=== PATIENT | female | born 1960 | race Caucasian/White ===

== ENCOUNTER 2020-06-17 06:43 | Inpatient (IN) | payer OTHER ==
[~2020-06-17] VITALS: Ht 172.7 cm; Wt 85.3 kg
[2020-06-17] MEDS ORDERED: AMIODARONE 450 MG in IV DEXTROSE 5% 250 ML IV ONE (07:00)
[2020-06-17] MEDS ORDERED: AMIODARONE 150 MG in IV DEXTROSE 5% 100ML 100 ML IV ONE (07:00)
--- NOTE | 2020-06-17 07:00 | PHYS DOC ---
Past Medical History Past Medical History: Hypothyroid General Adult EDM: Chief Complaint: CPR/FULL ARREST HPI: HPI: Patient is a 59 year old female who was brought here by EMS from home due to cardiac arrest. It was reported that at 5:58 AM this morning, patient WOKE UP FROM her sleep, told her that she was feeling dizzy, then she was then suddenly became unresponsive. Her could not wake her up, , started to perform CPR on her. EMS was called, came on scene, patient was unresponsive, agonal breathing. CPR was taken over by EMS. Patient was found no pulse, in VT. Patient was shocked by EMS, went into asystole. Patient was intubated by EMS. Patient was brought here emergently. ON route, they got her pulse back then lost it again. CPR was resumed. Upon arrival to room, patient was in PEA, CPR in progress. ROSC was achieved briefly. Patient was not sedated, not responsi ve to pain or verbal....PER , patient has been doing fine last night. NO HISTORY OF CVA, NO HX OF DM, NO HX OF BLOOD CLOT DISORDER. Patient is only on medication for her thyroid problem. Patient is not on any blood thinner. Her blood sugar upon arrival was 300. Her family and her all had COVID-19 SYMPTOMS IN THE MIDDLE OF MARCH LAST YEAR. SHE NEVER DID TEST FOR IT. Her worked with a close friend who was sick with confirmed COVID-19 infection. Within two days later, patient and her became sick with cough, fever and flu like symptoms. They were sick for more than a week and then got better. Her children all had COVID SYMPTOMS THEN. They never did test for COVID. Review of Systems: Review of Systems: NOT ABLE TO EVALUATE DUE TO COMATOSE Heart Score: Risk Factors: Risk Factors: DM, Current or recent (<one month) smoker, HTN, HLP, family history of CAD, obesity. Risk Scores: Score 0 - 3: 2.5% MACE over next 6 weeks - Discharge Home Score 4 - 6: 20.3% MACE over next 6 weeks - Admit for Clinical Observation Score 7 - 10: 72.7% MACE over next 6 weeks - Early Invasive Strategies Current Medications: Current Medications Medications (Trade) Dose Ordered Sig/Rosalio Start Time Stop Time Status Last Admin Dose Admin Amiodarone HCl 150 mg/Dextrose 103 ml @ 618 mls/hr 1X ONCE 06/17/20 07:00 06/17/20 07:09 Allergies: Allergies: Allergies Coded Allergies Type Severity Reaction Last Updated Verified Unable to Assess 06/17/20 No Physical Exam: PE: Constitutional: Well developed, well nourished, UNRESPONSIVE TO PAIN OR VERBAL STIMULI. HENT: Normocephalic, atraumatic, bilateral external ears normal, ET TUBE IN PLACE. Eyes: PERRLA, conjunctiva normal, no discharge. [] Neck: Normal range of motion, NO JVD, NO CREPITUS. Cardiovascular: SINUS RHYTHM, STRONG PULSES. Lungs & Thorax: BREATH SOUND CLEAR ON RIGHT LUNG, NOT MUCH MOVEMENT ON LEFT LUNG. Abdomen: Bowel sounds normal, soft, NO DISTENSION, no masses, no pulsatile masses. [] Skin: Warm, dry, no erythema, no rash. [] Back: ATRAUMATIC. [] Extremities: NO CYANOSIS, NO EDEMA, NO DEFORMITY. Neurologic: UNRESPONSIVE TO PAIN OR VERBAL STIMULI, SHE WAS APPEARING POSTURING, DECORTICATING. Psychologic: NOT ABLE TO EVALUATE DUE TO CONDITION. Current Patient Data: Labs: Laboratory Tests Test 06/17/20 06:58 06/17/20 07:28 06/17/20 08:20 06/17/20 08:32 Glucose (Fingerstick) 322 mg/dL White Blood Count 18.5 x10^3/uL Red Blood Count 4.26 x10^6/uL Hemoglobin 13.0 g/dL Hematocrit 40.1 % Mean Corpuscular Volume 94 fL Mean Corpuscular Hemoglobin 31 pg Mean Corpuscular Hemoglobin Concent 32 g/dL Red Cell Distribution Width 13.6 % Platelet Count 286 x10^3/uL Neutrophils (%) (Auto) 73 % Lymphocytes (%) (Auto) 23 % Monocytes (%) (Auto) 2 % Eosinophils (%) (Auto) 1 % Basophils (%) (Auto) 0 % Neutrophils # (Auto) 13.6 x10^3/uL Lymphocytes # (Auto) 4.3 x10^3/uL Monocytes # (Auto) 0.4 x10^3/uL Eosinophils # (Auto) 0.2 x10^3/uL Basophils # (Auto) 0.1 x10^3/uL Platelet Estimate Pending Prothrombin Time 15.4 SEC Prothromb Time International Ratio 1.3 Activated Partial Thromboplast Time 32 SEC D-Dimer (Yaneth) > 20.00 ug/mlFEU Sodium Level 140 mmol/L Potassium Level 3.4 mmol/L Chloride Level 103 mmol/L Carbon Dioxide Level 17 mmol/L Anion Gap 20 Blood Urea Nitrogen 18 mg/dL Creatinine 1.1 mg/dL Estimated GFR (Cockcroft-Gault) 51.2 BUN/Creatinine Ratio 16 Glucose Level 318 mg/dL Lactic Acid Level 8.6 mmol/L Calcium Level 8.2 mg/dL Magnesium Level 2.4 mg/dL Total Bilirubin 0.3 mg/dL Aspartate Amino Transf (AST/SGOT) 206 U/L Alanine Aminotransferase (ALT/SGPT) 161 U/L Alkaline Phosphatase 73 U/L Troponin I Quantitative 0.020 ng/mL UY-Ynd-O-Type Natriuretic Peptide 555 pg/mL Total Protein 6.6 g/dL Albumin 3.3 g/dL Albumin/Globulin Ratio 1.0 O2 Saturation 98 % Arterial Blood pH 7.20 Arterial Blood pCO2 at Patient Temp 51 mmHg Arterial Blood pO2 at Patient Temp 173 mmHg Arterial Blood HCO3 20 mmol/L Arterial Blood Base Excess -9 mmol/L Oxyhemoglobin 97.6 % Methemoglobin 0.2 % Carbon Monoxide, Quantitative 0.3 % FiO2 100 Urine Collection Type Unknown Urine Color Yellow Urine Clarity Clear Urine pH 6.0 Urine Specific Vina >=1.030 Urine Protein >=300 mg/dL Urine Glucose (UA) 250 mg/dL Urine Ketones (Stick) Negative mg/dL Urine Blood Small Urine Nitrite Negative Urine Bilirubin Negative Urine Urobilinogen Dipstick 0.2 mg/dL Urine Leukocyte Esterase Negative Urine RBC 3-5 /HPF Urine WBC 1-4 /HPF Urine Squamous Epithelial Cells Few /LPF Urine Amorphous Sediment Present /HPF Urine Bacteria Few /HPF Urine Hyaline Casts Occasional /HPF Urine Opiates Screen Neg Urine Methadone Screen Neg Urine Barbiturates Neg Urine Phencyclidine Screen Neg Urine Amphetamine/Methamphetamine Neg Urine Benzodiazepines Screen Pos Urine Cocaine Screen Neg Urine Cannabinoids Screen Pos Urine Ethyl Alcohol Neg Test 06/17/20 10:00 Troponin I Quantitative 0.192 ng/mL Current Medications Medications (Trade) Dose Ordered Sig/Rosalio Route PRN Reason Start Time Stop Time Status Last Admin Dose Admin Amiodarone HCl 150 mg/Dextrose 103 ml @ 618 mls/hr 1X ONCE IV 06/17/20 07:00 1/3/21 07:09 DC 06/17/20 07:00 Amiodarone HCl 450 mg/Dextrose 259 ml @ 33 mls/hr 1X ONCE IV 06/17/20 07:00 06/17/20 14:50 Sodium Chloride 1,000 ml @ 1,000 mls/hr 1X ONCE IV 06/17/20 07:15 06/17/20 08:14 DC 06/17/20 08:11 Midazolam HCl 100 ml @ 0 mls/hr 1X ONCE IV 06/17/20 07:15 06/17/20 07:16 DC Midazolam HCl (Versed) 5 mg STK-MED ONCE .ROUTE 06/17/20 07:17 06/17/20 07:17 DC Iohexol (Omnipaque 300 Mg/ml) 75 ml 1X ONCE IV 06/17/20 08:15 06/17/20 08:16 DC 06/17/20 08:17 Iohexol (Omnipaque 350 Mg/ml) 100 ml 1X ONCE IV 06/17/20 08:15 06/17/20 08:16 DC 06/17/20 08:17 Info (CONTRAST GIVEN -- Rx MONITORING) 1 each PRN DAILY PRN MC SEE COMMENTS 06/17/20 08:15 06/19/20 08:14 Sodium Chloride 1,000 ml @ 1,000 mls/hr 1X ONCE IV 06/17/20 08:15 06/17/20 09:14 DC 06/17/20 08:25 Piperacillin Sod/ Tazobactam Sod (Zosyn Per Pharmacy) 1 each PRN DAILY PRN MC SEE COMMENTS 06/17/20 08:45 UNV Piperacillin Sod/ Tazobactam Sod 4.5 gm/Sodium Chloride 100 ml @ 200 mls/hr 1X ONCE IV 06/17/20 08:45 06/17/20 09:14 DC 06/17/20 10:15 EKG: EKG: EKG was done, HEART RATE OF 90 BPM, SINUS RHYTHM, NO STEMI. Radiology/Procedures: Radiology/Procedures: [][facility] [address] [place] [address] IMAGING REPORT Signed PATIENT: BASILIO WHYTE ACCOUNT: [id number] : 1960 LOCATION: ER AGE: 59 SEX: F EXAM STATUS: REG ER ORD. PHYSICIAN: MEGAN MUÑIZ DO REASON: post cardiac arrest, UNRESPONSIVENESS. PROCEDURE: CT CODE STROKE HEAD WO EXAM: Head CT without contrast. HISTORY: Cardiac arrest. Unresponsive. TECHNIQUE: Computed tomographic images of the head were obtained without contrast. *One or more of the following individualized dose reduction techniques were utilized for this examination: 1. Automated exposure control. 2. Adjustment of the mA and/or kV according to patient size. 3. Use of iterative reconstruction technique. COMPARISON: None. FINDINGS: There is no acute or subacute extra-axial or intraparenchymal hemorrhage. There is no mass effect or midline shift. There is no hydrocephalus. There is a left choroid fissure cyst, of no clinical significance. There are subtle areas of hypodensity within the cerebral white matter which are likely artifactual or due to chronic small vessel disease. The visualized portions of the orbits, paranasal sinuses and mastoid air cells are unremarkable. No suspicious calvarial lesion is seen. IMPRESSION: No acute intracranial finding. Note is made that MRI is more sensitive for acute infarction. Findings were discussed with Dr. Muñiz at 0800 hours on 06/17/2020. FOR INTERNAL CODING PURPOSES RESULT CODE: (C) Electronically signed by: Opal Painter MD (06/17/2020 8:09 AM) [facility] DICTATED and SIGNED BY: OPAL PAINTER MD DATE: 06/17/20 [id number] 0 [facility] [address] [place] [address] IMAGING REPORT Signed PATIENT: BASILIO WHYTE ACCOUNT: [id number] : 1960 LOCATION: ER AGE: 59 SEX: F EXAM STATUS: REG ER ORD. PHYSICIAN: MEGAN MUÑIZ DO REASON: POST CARDIAC ARREST, UNRESPONSIVE. PROCEDURE: CTA HEAD/NECK - CODE STROKE EXAM: CT angiogram of the head and neck with intravenous contrast. HISTORY: Cardiac arrest. TECHNIQUE: Computed tomographic images of the head and neck were obtained following the administration of contrast. Three-dimensional maximum intensity projection images were obtained. *One or more of the following individualized dose reduction techniques were utilized for this examination: 1. Automated exposure control. 2. Adjustment of the mA and/or kV according to patient size. 3. Use of iterative reconstruction technique. COMPARISON: Noncontrast head CT obtained on the same date. FINDINGS: The aortic arch is normal in caliber. There is no evidence of aortic dissection. There is partial consolidation of the left upper lobe with associated air bronchograms. There is groundglass infiltrate throughout the left upper lobe. There is bilateral posterior dependent atelectasis. There is a small right pneumothorax. There is a displaced lateral right fourth rib fracture and angulated right third rib fracture. There are prominent mediastinal lymph nodes. The pulmonary arteries are characterized on a CT angiogram of the chest obtained on the same date. There is an endotracheal tube within the distal trachea. There is a nasogastric tube partially included on the [id number]. The carotid bifurcations are widely patent. The internal carotid arteries are widely patent. The vertebral arteries are widely patent and codominant. The basilar artery is widely patent. The anterior communicating artery is patent. There are suspected hypoplastic or development of absent posterior communicating arteries, a normal variant. No cerebral arterial filling defect or hemodynamically significant stenosis is seen. There is no suspicious enhancing lesion. There is no mass effect or midline shift. There is no hydrocephalus. There are small incidental arachnoid granulations within the transverse sinuses. No sinus thrombosis is seen. The orbits are unremarkable. The paranasal sinuses mastoid air cells are clear. There are multilevel degenerative changes throughout the cervical spine. This results in [id number] right and severe left foraminal and mild central canal stenosis at C5-C6 and mild bilateral foraminal and central canal stenosis at C6-C7. IMPRESSION: 1. No acute intracranial finding or evidence of hemodynamically significant stenosis or occlusion involving the neck or a renal arteries. 2. Small right pneumothorax and right third and fourth rib fractures. This is better characterized on the chest CT obtained on the same date. 3. Partial left upper lobe consolidation with surrounding groundglass infiltrate and bilateral posterior dependent atelectasis. Findings discussed with Dr. Muñiz in the ED at 0820 hours on 06/17/2020. FOR INTERNAL CODING PURPOSES RESULT CODE: (C) PQRS Compliance Statement - Stenosis calculations for CT, MR and conventional angiography are based upon measurement of the distal ICA diameter in accordance with the NASCET methodology. Stenosis calculations for carotid ultrasound studies are derived from validated velocity criteria which are known to correlate with the NASCET methodology. Electronically signed by: Opal Painter MD (06/17/2020 8:25 AM) [facility] DICTATED and SIGNED BY: OPAL PAINTER MD DATE: 06/17/20 [id number] 0 [facility] [address] [place] [address] IMAGING REPORT Signed PATIENT: BASILIO WHYTE ACCOUNT: [id number] : 1960 LOCATION: ER AGE: 59 SEX: F EXAM STATUS: REG ER ORD. PHYSICIAN: MEGAN MUÑIZ DO REASON: POST CARDIAC ARREST, UNRESPONSIVE. PROCEDURE: CT ANGIOGRAPHY CHEST CTA CHEST INDICATION: POST CARDIAC ARREST, UNRESPONSIVE. Comparison: None. TECHNIQUE: Following the uneventful administration of intravenous contrast, 100 cc Omnipaque 350, axial CT sections were obtained through the lungs and upper abdomen. Multiplanar reconstructions and MIP images were obtained. PQRS compliance statement: One or more of the following individualized dose reduction techniques were utilized for this examination: 1. Automated exposure control 2. Adjustment of the mA and/or kV according to patient size 3. Use of iterative reconstruction technique FINDINGS: Motion artifact degrades image quality. Pulmonary arteries: No evidence of pulmonary thromboembolic disease Lungs and Airways: Left lung ground glass opacities and dependent consolidation. Right basilar dependent and subsegmental atelectasis. Pleura: Small right pneumothorax. Heart and Mediastinum: The visualized thyroid is normal in size and attenuation. No axillary or supraclavicular lymphadenopathy. No mediastinal, hilar or retrocrural lymphadenopathy. The heart and pericardium are within normal limits. Normal caliber thoracic aorta. Abdomen: Limited images through the upper abdomen show no abnormality of the visualized organs. Bones and Soft Tissues: Right anterolateral fourth-sixth rib fractures, displaced at 5. Nondisplaced sternal body fracture. IMPRESSION: 1. No evidence of pulmonary thromboembolic disease. 2. Small right pneumothorax with right fourth-sixth rib fractures. Nondisplaced sternal body fracture. No mediastinal hematoma. 3. Left lung hazy opacities and dependent consolidations, probably contusion, infection, or aspiration. Electronically signed by: Oxana Denis MD (06/17/2020 8:23 AM) [id number] DICTATED and SIGNED BY: OXANA DENIS MD DATE: 06/17/20 [id number] 0 [facility] [address] [place] [address] IMAGING REPORT Signed PATIENT: BASILIO WHYTE ACCOUNT: [id number] : 1960 LOCATION: ER AGE: 59 SEX: F EXAM STATUS: REG ER ORD. PHYSICIAN: MEGAN MUÑIZ DO REASON: CHEST TUBE , CENTRAL LINE PLACEMENT PROCEDURE: PORTABLE CHEST 1V EXAM: Chest, single view. HISTORY: Pneumothorax. COMPARISON: 06/17/2020 FINDINGS: A frontal view of the chest is obtained. There is a right basilar thoracostomy tube. The thorax. There is a nasogastric tube within the stomach. There is an endotracheal tube within the mid to distal trachea. There are displaced right rib fractures, better characterized on the CT obtained on the same date. There is left perihilar infiltrate or atelectasis. IMPRESSION: 1. Right basilar pleural drainage catheter and tiny pneumothorax. 2. Left perihilar atelectasis or infiltrate. DICTATED and SIGNED BY: OPAL PAINTER MD DATE: 06/17/20 [id number] CHEST TUBE PLACEMENT: Indication: RIGHT SIDE TRAUMATIC PNEUMOTHORAX DUE TO RIBS FRACTURE Consent: The patient 'S provided consent for this procedure. Procedure: The patient was placed in an appropriate position. Local anesthesia over the insertion site at the mid-axillary line, right side 4th intercostal space was anesthesized with 10 ml of lidocaine plain. An incision was made with number 11 scapel, 1 cm. . Blunt dissection up and over the rib was performed until access was obtained into the pleural cavity. A 9 Luxembourgish chest tube was placed and connected to PLEURIVAC. Initial output from the tube was small mount of ruthie blood. The tube was sutured in place and the site was covered with an occlusive dressing. All connections were banded. Breath sounds after the procedure were good. A chest x-ray was obtained to evaluate placement, appropriate position. The patient tolerated the procedure. Complication: none CENTRAL VENOUS LINE PLACEMENT: Indication: Vascular access Consent: The patient's provided consent for this procedure. Procedure: The patient was positioned appropriately and the skin over the right side chest was prepped and draped in a sterile fashion. Local anesthesia was used. Ultrasound guidance was not utilized . A large bore needle was used to identify the vein. A guide wire was then inserted into the vein through the needle. A triple lumen catheter was then inserted into the vessel over the guide wire using the Seldinger technique. All ports showed good, free flowing blood return and were flushed with saline solution. The catheter was then securely fastened to the skin with sutures and covered with a sterile dressing. A post procedure X-ray was ordered. Complications: when the guide wire was advanced, patient went into a brief VT WITH PULSE. RESOLVED WHEN THE GUIDE WIRE REMOVED. Course & Med Decision Making: Course & Med Decision Making Pertinent Labs and Imaging studies reviewed. (See chart for details) Patient appeared to bite the ET tube, she was posturing... Discussed with NEUROLOGIST SECURITY COORDINATOR, DR. FLORES, he did not think that patient had CVA event. Discussed with Rug Touch Up Painter professional skater, Dr. Ruiz, agreed with AMIODARONE, WILL SEE PATIENT. Discussed with Hot Mill Operator professional skater, Dr. Aguiar, recommended CHEST TUBE PLACEMENT NOW. Discussed with hospitalist professional skater, Dr. Hurley, who agreed to admit the patient to his service. Discussed patient condition, lab, diagnostic studies with her , sons, daughter. Patient is a 59-year-old female who woke up this morning with dizziness symptom then became unresponsive. Her proceeded with CPR, he said he broke her rib and sternum when he did CPR. EMS was called, when they arrived, she was unresponsive in V. fib, no pulse. They shocked her and she went into asystole. Patient was intubated by EMS, ROSC was achieved but they lost it on route here. Patient was resuscitated in the ER by ACLS protocol. ROSC was achieved again. Patient appeared to be posturing. This physician suspected that patient might have suffered a intracranial hemorrhage or stroke therefore a code stroke was activated. Patient was taken to CT scan for stat CT head, did not show any acute problem. Due to her history of COVID-19 infection, it is most likely she might have endocarditis or pulmonary embolus. CTA of her head and neck did not show any large vessel occlusion. CTA of her chest did not show evidence of PE but did show that she had multiple ribs fracture with a small pneumothorax on the right side and nondisplaced sternum fracture. Patient also had bilateral groundglass appearing infiltration at the bases of her lungs. This appearance might be the sequela of her COVID-19 infection. Patient requires IV fluid, IV sedation medication IV antibiotic, IV antiarrhythmic medication therefore she will need a central venous catheter placement. Patient also had a pneumothorax in the right side and she is on a ventilator machine, increase risk of expanding pneumothorax later, therefore a small chest tube was placed on right side, central venous cather was placed on the right side by this physician in the ER. Patient will be admitted to the intensive care unit for further evaluation and treatment. Critical care time was [60] minutes which includes time at bedside, spent in discussion of patient's care with specialist and/or family members, with interpretation of laboratory and/or radiological studies and is exclusive of procedures. Dragon Disclaimer: Dragon Disclaimer: This electronic medical record was generated, in whole or in part, using a voice recognition dictation system. Departure Departure Impression: Primary Impression: Cardiac arrest Additional Impressions: VF (ventricular fibrillation) Pneumothorax, right Fracture of ribs, multiple Sternal fracture Pneumonia Hyperglycemia Disposition: 09 ADMITTED INPT THIS HOSP Admitting Physician: CE (Dr. Hurley) Condition: IMPROVED Referrals: KIRA BARRAGAN APRN (PCP) MEGAN MUÑIZ DO Jun 17, 2020 07:00
[2020-06-17] MEDS ORDERED: MIDAZOLAM 100mg/100ml NS BAG 100 ML IV ONE (07:15)
[2020-06-17] MEDS ORDERED: IV NORMAL SALINE 1000ML BAG 1,000 ML IV ONE ×3 (07:15→10:15)
[2020-06-17] MEDS ORDERED: MIDAZOLAM HCL/PF 5 MG/5 ML VIAL. ONE (07:17)
--- NOTE | 2020-06-17 07:33 | RAD ---
XR CHEST 1V, XR CHEST 1V INDICATION: ET TUBE PLACEMENT, 2nd attempt . COMPARISON STUDY: None. TECHNIQUE: 2 consecutive chest radiographs were submitted, the second after repositioning of the concetta ent's endotracheal tube FINDINGS: Life Support Devices: The first radiograph demonstrates the endotracheal tube in the right mainstem b ronchus, repositioned in the second radiograph 4.2 cm above the guillermo. Enteric tube in the stomach. Lungs: Normal lung volume. Left lung hazy opacities. Pleura: No pleural effusion or pneumothorax. Heart and Mediastinum: Normal cardiomediastinal silhouette and great vessels. IMPRESSION: 1. Endotracheal tube terminates 4.2 cm above the guillermo after repositioning. Enteric tube in the stom ach. 2. Left lung hazy opacities, possibly an infectious/inflammatory process. Electronically signed by: Stephan Denis MD (06/17/2020 7:30 AM) [id number]
[2020-06-17 07:58] LABS: BASO # 0.1 x10^3/uL (0.0-0.2); BASO % 0 % (0-3); EOS # 0.2 x10^3/uL (0.0-0.7); EOS % 1 % (0-3); HEMATOCRIT 40.1 % (36.0-47.0); LYMPH # 4.3 x10^3/uL (1.0-4.8); LYMPH % 23 % (24-48); MEAN CORPUSCULAR HEMOGLOBIN 31 pg (25-35); MEAN CORPUSCULAR HGB CONC 32 g/dL (31-37); MEAN CORPUSCULAR VOLUME 94 fL (79-100); MONO # 0.4 x10^3/uL (0.0-1.1); MONO % 2 % (0-9); NEUT # 13.6 x10^3/uL (1.8-7.7); NEUT % 73 % (31-73); PLATELET COUNT 286 x10^3/uL (140-400); RED BLOOD COUNT 4.26 x10^6/uL (3.50-5.40); RED CELL DISTRIBUTION WIDTH 13.6 % (11.5-14.5); WHITE BLOOD COUNT 18.5 x10^3/uL (4.0-11.0)
[2020-06-17 08:07] LABS: PROTHROMBIN TIME PATIENT 15.4 SEC (11.7-14.0)
[2020-06-17 08:09] LABS: CALCIUM 8.2 mg/dL (8.5-10.1); CREATININE 1.1 mg/dL (0.6-1.0); GFR 51.2; POTASSIUM 3.4 mmol/L (3.5-5.1)
--- NOTE | 2020-06-17 08:11 | RAD ---
EXAM: Head CT without contrast. HISTORY: Cardiac arrest. Unresponsive. TECHNIQUE: Computed tomographic images of the head were obtained without contrast. *One or more of the following individualized dose reduction techniques were utilized for this examina tion: 1. Automated exposure control. 2. Adjustment of the mA and/or kV according to patient size. 3. Use of iterative reconstruction technique. COMPARISON: None. FINDINGS: There is no acute or subacute extra-axial or intraparenchymal hemorrhage. There is no mass effect or midline shift. There is no hydrocephalus. There is a left choroid fissure cyst, of no clinical significance. There are subtle areas of hypodens ity within the cerebral white matter which are likely artifactual or due to chronic small vessel dise ase. The visualized portions of the orbits, paranasal sinuses and mastoid air cells are unremarkable. No s uspicious calvarial lesion is seen. IMPRESSION: No acute intracranial finding. Note is made that MRI is more sensitive for acute infarcti on. Findings were discussed with Dr. Judd at 0800 hours on 06/17/2020. FOR INTERNAL CODING PURPOSES RESULT CODE: (C) Electronically signed by: Opal Morataya MD (06/17/2020 8:09 AM) [facility]
[2020-06-17 08:14] LABS: ALBUMIN 3.3 g/dL (3.4-5.0); MAGNESIUM 2.4 mg/dL (1.8-2.4); TOTAL BILIRUBIN 0.3 mg/dL (0.2-1.0); TOTAL PROTEIN 6.6 g/dL (6.4-8.2)
[2020-06-17] MEDS ORDERED: IOHEXOL 350 MG/ML 100 ML VIAL. IV ONE (08:15)
[2020-06-17] MEDS ORDERED: CONTRAST GIVEN. MC PRN (08:15)
[2020-06-17] MEDS ORDERED: IOHEXOL 300 MG/ML 100ML VIAL. IV ONE (08:15)
--- NOTE | 2020-06-17 08:25 | RAD ---
CTA CHEST INDICATION: POST CARDIAC ARREST, UNRESPONSIVE. Comparison: None. TECHNIQUE: Following the uneventful administration of intravenous contrast, 100 cc Omnipaque 350, axi al CT sections were obtained through the lungs and upper abdomen. Multiplanar reconstructions and MIP images were obtained. PQRS compliance statement: One or more of the following individualized dose reduction techniques were utilized for this examinat ion: 1. Automated exposure control 2. Adjustment of the mA and/or kV according to patient size 3. Use of iterative reconstruction technique FINDINGS: Motion artifact degrades image quality. Pulmonary arteries: No evidence of pulmonary thromboembolic disease Lungs and Airways: Left lung ground glass opacities and dependent consolidation. Right basilar depend ent and subsegmental atelectasis. Pleura: Small right pneumothorax. Heart and Mediastinum: The visualized thyroid is normal in size and attenuation. No axillary or supra clavicular lymphadenopathy. No mediastinal, hilar or retrocrural lymphadenopathy. The heart and peric ardium are within normal limits. Normal caliber thoracic aorta. Abdomen: Limited images through the upper abdomen show no abnormality of the visualized organs. Bones and Soft Tissues: Right anterolateral fourth-sixth rib fractures, displaced at 5. Nondisplaced sternal body fracture. IMPRESSION: 1. No evidence of pulmonary thromboembolic disease. 2. Small right pneumothorax with right fourth-sixth rib fractures. Nondisplaced sternal body fracture . No mediastinal hematoma. 3. Left lung hazy opacities and dependent consolidations, probably contusion, infection, or aspiratio n. Electronically signed by: Stephan Denis MD (06/17/2020 8:23 AM) [id number]
--- NOTE | 2020-06-17 08:28 | RAD ---
EXAM: CT angiogram of the head and neck with intravenous contrast. HISTORY: Cardiac arrest. TECHNIQUE: Computed tomographic images of the head and neck were obtained following the administratio n of contrast. Three-dimensional maximum intensity projection images were obtained. *One or more of the following individualized dose reduction techniques were utilized for this examina tion: 1. Automated exposure control. 2. Adjustment of the mA and/or kV according to patient size. 3. Use of iterative reconstruction technique. COMPARISON: Noncontrast head CT obtained on the same date. FINDINGS: The aortic arch is normal in caliber. There is no evidence of aortic dissection. There is p artial consolidation of the left upper lobe with associated air bronchograms. There is groundglass in filtrate throughout the left upper lobe. There is bilateral posterior dependent atelectasis. There is a small right pneumothorax. There is a displaced lateral right fourth rib fracture and angulated rig ht third rib fracture. There are prominent mediastinal lymph nodes. The pulmonary arteries are charac terized on a CT angiogram of the chest obtained on the same date. There is an endotracheal tube withi n the distal trachea. There is a nasogastric tube partially included on the [id number]. The carotid bifurcations are widely patent. The internal carotid arteries are widely patent. The vert ebral arteries are widely patent and codominant. The basilar artery is widely patent. The anterior co mmunicating artery is patent. There are suspected hypoplastic or development of absent posterior comm unicating arteries, a normal variant. No cerebral arterial filling defect or hemodynamically signific ant stenosis is seen. There is no suspicious enhancing lesion. There is no mass effect or midline ene ft. There is no hydrocephalus. There are small incidental arachnoid granulations within the transvers e sinuses. No sinus thrombosis is seen. The orbits are unremarkable. The paranasal sinuses mastoid air cells are clear. There are multilevel degenerative changes throughout the cervical spine. This results in [id number] right and severe left foraminal and mild central canal stenosis at C5-C6 and mild bilateral foraminal and central can al stenosis at C6-C7. IMPRESSION: 1. No acute intracranial finding or evidence of hemodynamically significant stenosis or occlusion inv olving the neck or a renal arteries. 2. Small right pneumothorax and right third and fourth rib fractures. This is better characterized on the chest CT obtained on the same date. 3. Partial left upper lobe consolidation with surrounding groundglass infiltrate and bilateral tour narrator ior dependent atelectasis. Findings discussed with Dr. Judd in the ED at 0820 hours on 06/17/2020. FOR INTERNAL CODING PURPOSES RESULT CODE: (C) PQRS Compliance Statement - Stenosis calculations for CT, MR and conventional angiography are based u naz measurement of the distal ICA diameter in accordance with the NASCET methodology. Stenosis calcu lations for carotid ultrasound studies are derived from validated velocity criteria which are known t o correlate with the NASCET methodology. Electronically signed by: Opal Morataya MD (06/17/2020 8:25 AM) [facility]
[2020-06-17 08:39] LABS: BASE EXCESS COOX -9 mmol/L (-3-3); HCO3 COOX 20 mmol/L (21-28); METHEMOGLOBIN 0.2 % (0.0-1.9); OXYHEMOGLOBIN 97.6 %; PCO2 COOX 51 mmHg (35-46); PO2 COOX 173 mmHg (75-108); SAT O2 COOX 98 % (92-99)
[2020-06-17] MEDS ORDERED: PIP/TAZO PER PHARMACY MC PRN (08:45)
[2020-06-17] MEDS ORDERED: PIPERACILLIN/TAZOBACTAM 4.5 GM in IV NORMAL SALINE 100ML 100 ML IV ONE ×2 (08:45→12:15)
[2020-06-17] MEDS ORDERED: PROPOFOL 10 MG/ML (20ML) VIAL. IV ONE (09:00)
[2020-06-17] MEDS: PROPOFOL 100 ML IV PRN ×2 (09:00→23:40)
[2020-06-17] MEDS ORDERED: POTASSIUM CHLORIDE 20MEQ 100 ML IV ONE (09:00)
--- NOTE | 2020-06-17 09:03 | EKG ---
[facility] [address] [place] [address] Test Date: 2020-06-17 Test Time: 06:54:27 Pat Name: BASILIO WHYTE Department: Room: Gender: F [employer]: : [id number] Requested By: MEGAN MUÑIZ Order Number: [id number] Reading MD: Julian Enciso Measurements Intervals [place] Rate: 90 P: 63 OK: 154 QRS: 59 QRSD: 118 T: 114 QT: 360 QTc: 444 Interpretive Statements SINUS RHYTHM VENTRICULAR PREMATURE COMPLEX(ES) LEFT ATRIAL ABNORMALITY ST & T ABNORMALITY, CONSIDER ANTEROLATERAL ISCHEMIA OR LEFT VENTRICULAR STRAIN ABNORMAL ECG RI6.02 No previous ECG available for comparison Electronically Signed On 06-19-2020 13:40:58 [employer] by Julian Enciso
[2020-06-17] MEDS ORDERED: PROPOFOL 100 ML IV ONE (09:05)
[2020-06-17] MEDS ORDERED: LIDOCAINE 1% Multi-Dose 20 ML VIAL. INJ ONE (09:15)
[2020-06-17] MEDS ORDERED: LIDOCAINE 1% PF 5 ML VIAL. ONE (09:26)
[2020-06-17 09:28] LABS: BARBITURATES NEG (NEG); BENZODIAZEPINES POS (NEG); CANNABINOIDS POS (NEG); COCAINE NEG (NEG); METHADONE NEG (NEG); OPIATES NEG (NEG); PHENCYCLIDINE NEG (NEG)
[2020-06-17 09:31] LABS: AMPHETAMINE/METHAMPHETAMINE NEG (NEG)
[2020-06-17 09:38] LABS: BILIRUBIN,URINE NEGATIVE (NEG); CLARITY,URINE CLEAR; COLOR,URINE YELLOW; NITRITE,URINE NEGATIVE (NEG); PROTEIN,URINE >=300 mg/dL (NEG-TRACE); UROBILINOGEN,URINE 0.2 mg/dL (0.2 mg/dL)
[2020-06-17 09:56] LABS: BACTERIA,URINE FEW /HPF (0-FEW); HYALINE CASTS, URINE OCCASIONAL /HPF
[2020-06-17 09:57] LABS: AMORPHOUS SEDIMENT,UR PRESENT /HPF
--- NOTE | 2020-06-17 10:14 | RAD ---
EXAM: Chest, single view. HISTORY: Pneumothorax. COMPARISON: 06/17/2020 FINDINGS: A frontal view of the chest is obtained. There is a right basilar thoracostomy tube. The th orax. There is a nasogastric tube within the stomach. There is an endotracheal tube within the mid to distal trachea. There are displaced right rib fractures, better characterized on the CT obtained on the same date. There is left perihilar infiltrate or atelectasis. IMPRESSION: 1. Right basilar pleural drainage catheter and tiny pneumothorax. 2. Left perihilar atelectasis or infiltrate. Electronically signed by: Opal Morataya MD (06/17/2020 5:06 PM) [facility]
[2020-06-17 11:04] LABS: % BANDS 9 % (0-9); % LYMPHS 21 % (24-48); % MYELOS 2 % (0-0); % SEGS 68 % (35-66); PLT ESTIMATE ADEQUATE (ADEQUATE)
[2020-06-17] MEDS: IV NORMAL SALINE 1000ML BAG 1,000 ML IV SCH ×2 (11:13→23:39)
[2020-06-17] MEDS ORDERED: VECURONIUM BOLUS 10 MG VIAL. IV PRN (12:00)
[2020-06-17] MEDS ORDERED: fentaNYL PF VIAL 100 MCG/2 ML VIAL IV ONE (12:00)
[2020-06-17] MEDS ORDERED: busPIRone 10 MG TABLET. NG SCH (12:00)
[2020-06-17] MEDS ORDERED: POLYVINYL ALCOHOL 1.4% OPHTH SOLUTION 15ML BOTTLE. OU PRN (12:00)
[2020-06-17] MEDS ORDERED: MIDAZOLAM HCL/PF 2 MG/2 ML VIAL. IV ONE (12:00)
[2020-06-17] MEDS ORDERED: MIDAZOLAM 100mg/100ml NS BAG 100 ML IV PRN (12:00)
[2020-06-17] MEDS ORDERED: MAGNESIUM SULFATE 1GM 100 ML IV ONE (12:00)
[2020-06-17] MEDS ORDERED: POLYVINYL ALCOHOL 1.4% OPHTH SOLUTION 15ML BOTTLE. OU SCH (12:00)
[2020-06-17] MEDS ORDERED: PROPOFOL 100 ML IV PRN (12:00)
--- NOTE | 2020-06-17 12:10 | HP ---
ADMIT DATE: 06/17/2020 CHIEF COMPLAINT: Cardiac arrest. HISTORY OF PRESENT ILLNESS: The patient is a pleasant 59-year-old female who had COVID-19 two months ago. She had a witnessed cardiac arrest today. The family started CPR, they called the ambulance. She has now been resuscitated and intubated. She is currently being examined in the ER where she is starting to have some posturing. She is not really responding to pain either, but her pupils are reactive. PAST MEDICAL HISTORY: Recent COVID-19 and hypothyroidism. ALLERGIES: None. FAMILY HISTORY: Diabetes. SOCIAL HISTORY: She does not drink, smoke or take drugs. MEDICATIONS: Reviewed, please refer to the MRAD. REVIEW OF SYSTEMS: Unable to obtain. PHYSICAL EXAMINATION: VITALS: Within normal limits and are stable. GENERAL: She is sedated on the vent. HEENT: Normal cephalic atraumatic, external auditory canals are patent EYES: Extraocular muscles are intact, pupils are equally round and reactive to light and accommodation MUSCULOSKELETAL: Well developed, well nourished, good range of motion ENDOCRINE: No thyromegaly was palpated LYMPHATICS: No cervical chain or axillary nodes were noted HEMATOPOIETIC: No bruising NECK: Supple, no JVD, no thyromegaly was noted. LUNGS: She has some slight bibasilar crackles. HEART: She has S1, S2 with a soft distant S3. ABDOMEN: Soft, nontender. Positive bowel sounds no organomegaly, normal bowel sounds. EXTREMITIES: Without any cyanosis, clubbing, or edema. Pedal pulses intact, Homans sign is negative. NEUROLOGIC: She is sedated on the vent. PSYCHIATRIC: She is sedated on the vent. SKIN: No ulcerations or rashes, good skin turgor, no jaundice. VASCULAR: Good capillary refill, neurovascular bundle appears to be intact. LABORATORY DATA: White count is 18. Electrolytes: Sodium 140, potassium 3.4, chloride 103, bicarbonate 17, BUN 18, creatinine 1.1, glucose 318. Troponin 0.19. Lactic acid 8.6. Drug screen is negative. Urinalysis negative. Chest x-ray shows right basilar pleural drainage catheter and a tiny pneumothorax and a left perihilar atelectasis or infiltrate. ASSESSMENT AND PLAN: Cardiac arrest with resuscitation and probable pneumonia, leukocytosis, electrolyte disturbance, hypokalemia, lactic acidosis, elevated troponin. The patient will be admitted. We will consult Pulmonary Medicine, Infectious Disease, and Cardiology. She is going to the ICU. Vent weaning. Propofol for sedation. Serial enzymes, serial EKGs, IV Zosyn until she is seen by Infectious Disease. Home meds, DVT prophylaxis. Full code. PROGNOSIS: Guarded. CRITICAL CARE TIME: 32 minutes. HUSSEIN GOODWIN DO DR: REGINALDO/mario JOB#: [id number] / [id number]
[2020-06-17] MEDS: fentaNYL PF VIAL 100 MCG/2 ML VIAL IVP SCH ×3 (12:59→18:55)
[2020-06-17 14:16] LABS: BASE EXCESS ABG -5 mmol/L (-3-3); HCO3 ABG 18 mmol/L (21-28); PCO2 ABG 29 mmHg (35-46); PO2 ABG 277 mmHg (75-108); SAT O2 ABG 99 % (92-99)
[2020-06-17 14:21] LABS: FIO2 ABG 80%
--- NOTE | 2020-06-17 14:27 | PDOC2 ---
NEUROLOGY CONSULT Date of Service DOS: DATE: 06/17/20 TIME: 14:16 Reason for Consult Reason for Consult: Postcode Referring Physician Referring Physician: Dr. Alvarenga Source Source: Caregiver (), Chart review (Office chart accessed with permission of patient's ) History of Present Illness History of Present Illness The patient is a 59-year-old right-handed female. Her woke up and went back to bed and woke her up. She said that she was dizzy, then she became unresponsive. He started CPR. Emergency medical services arrived and found agonal breathing, she was in pulseless ventricular tachycardia. In the emergency room the patient was in pulseless electrical activity. She has no prior cardiac history. Family and the patient all had Covid symptoms in the middle of March, but they never were tested. She recently got her cholesterol results back and was so proud of them that she posted them on her refrigerator. She has never had a stroke or seizure. Past Medical History Cardiovascular: HTN, Hyperlipidemia Infectious disease: Herpes simplex2 Endocrine: Hypothyroidism, Other (Obesity, has been on phentermine, also on Adderall) Past Surgical History Past Surgical History: Other (Lawnmower accident), No pertinent history Family History Family History: CAD Social History Social History , ex-smoker, rare alcohol Current Medications Current Medications Current Medications Amiodarone HCl 150 mg/Dextrose 103 ml @ 618 mls/hr 1X ONCE IV Last administered on 06/17/20at 07:00; Start 06/17/20 at 07:00; Stop 06/17/20 at 07:09; Status DC Amiodarone HCl 450 mg/Dextrose 259 ml @ 33 mls/hr 1X ONCE IV ; Start 06/17/20 at 07:00; Stop 06/17/20 at 14:50 Sodium Chloride 1,000 ml @ 1,000 mls/hr 1X ONCE IV Last administered on 06/17/20at 08:11; Start 06/17/20 at 07:15; Stop 06/17/20 at 08:14; Status DC Midazolam HCl 100 ml @ 0 mls/hr 1X ONCE IV ; Start 06/17/20 at 07:15; Stop 06/17/20 at 07:16; Status DC Midazolam HCl (Versed) 5 mg STK-MED ONCE .ROUTE ; Start 06/17/20 at 07:17; Stop 06/17/20 at 07:17; Status DC Iohexol (Omnipaque 300 Mg/ml) 75 ml 1X ONCE IV Last administered on 06/17/20at 08:17; Start 06/17/20 at 08:15; Stop 06/17/20 at 08:16; Status DC Iohexol (Omnipaque 350 Mg/ml) 100 ml 1X ONCE IV Last administered on 06/17/20at 08:17; Start 06/17/20 at 08:15; Stop 06/17/20 at 08:16; Status DC Info (CONTRAST GIVEN -- Rx MONITORING) 1 each PRN DAILY PRN MC SEE COMMENTS; Start 06/17/20 at 08:15; Stop 06/19/20 at 08:14 Sodium Chloride 1,000 ml @ 1,000 mls/hr 1X ONCE IV Last administered on 06/17/20at 08:25; Start 06/17/20 at 08:15; Stop 06/17/20 at 09:14; Status DC Potassium Chloride/Water 100 ml @ 50 mls/hr 1X ONCE IV Last administered on 06/17/20at 10:16; Start 06/17/20 at 09:00; Stop 06/17/20 at 10:59; Status DC Piperacillin Sod/ Tazobactam Sod (Zosyn Per Pharmacy) 1 each PRN DAILY PRN MC SEE COMMENTS; Start 06/17/20 at 08:45; Status UNV Piperacillin Sod/ Tazobactam Sod 4.5 gm/Sodium Chloride 100 ml @ 200 mls/hr 1X ONCE IV Last administered on 06/17/20at 10:15; Start 06/17/20 at 08:45; Stop 06/17/20 at 09:14; Status DC Sodium Chloride 1,000 ml @ 125 mls/hr Q8H IV Last administered on 06/17/20at 11:13; Start 06/17/20 at 09:00; Stop 06/18/20 at 08:59 Propofol (Diprivan) 200 mg 1X ONCE IV Last administered on 06/17/20at 09:00; Start 06/17/20 at 09:00; Stop 06/17/20 at 09:01; Status DC Propofol 100 ml @ As Directed STK-MED ONCE IV ; Start 06/17/20 at 09:05; Stop 06/17/20 at 09:05; Status DC Lidocaine HCl (Lidocaine 1% 20ml Vial) 20 ml 1X ONCE INJ Last administered on 06/17/20at 09:15; Start 06/17/20 at 09:15; Stop 06/17/20 at 09:20; Status DC Lidocaine HCl (Xylocaine-Mpf 1% 5ml Vial) 5 ml STK-MED ONCE .ROUTE ; Start 06/17/20 at 09:26; Stop 06/17/20 at 09:26; Status DC Sodium Chloride 1,000 ml @ 1,000 mls/hr 1X ONCE IV Last administered on 06/17/20at 10:15; Start 06/17/20 at 10:15; Stop 06/17/20 at 11:14; Status DC Propofol 100 ml @ 3.819 mls/ hr CONT PRN IV PER PROTOCOL Last administered on 06/17/20at 09:00; Start 06/17/20 at 10:45 Fentanyl Citrate (Fentanyl 2ml Vial) 100 mcg 1X ONCE IV ; Start 06/17/20 at 12:00; Stop 06/17/20 at 12:39; Status DC Midazolam HCl (Versed) 2 mg 1X ONCE IV ; Start 06/17/20 at 12:00; Stop 06/17/20 at 12:39; Status DC Magnesium Sulfate/ Dextrose 100 ml @ 100 mls/hr 1X ONCE IV Last administered on 06/17/20at 12:22; Start 06/17/20 at 12:00; Stop 06/17/20 at 12:39; Status DC Buspirone HCl (Buspar) 30 mg Q8H NG Last administered on 06/17/20at 12:31; Start 06/17/20 at 12:00; Stop 06/17/20 at 12:39; Status DC Glycerin/ Hypromellose/ Polyethylene (Artificial Tears) 1 drop Q6HRS OU ; Start 06/17/20 at 12:00; Stop 06/17/20 at 12:39; Status DC Glycerin/ Hypromellose/ Polyethylene (Artificial Tears) 1 drop PRN Q15MIN PRN OU DRY EYE; Start 06/17/20 at 12:00; Stop 06/17/20 at 12:39; Status DC Heparin Sodium (Porcine) (Heparin Sodium) 5,000 unit BID SQ ; Start 06/17/20 at 21:00; Stop 06/17/20 at 12:39; Status DC Pantoprazole Sodium (PROTONIX VIAL for IV PUSH) 40 mg DAILY IVP ; Start 06/18/20 at 09:00; Stop 06/17/20 at 12:39; Status DC Fentanyl Citrate 30 ml @ 0 mls/hr CONT PRN IV PER PROTOCOL.; Start 06/17/20 at 12:00; Stop 06/17/20 at 12:39; Status DC Propofol 100 ml @ 0 mls/hr CONT PRN IV PER PROTOCOL.; Start 06/17/20 at 12:00; Stop 06/17/20 at 12:39; Status DC Midazolam HCl 100 ml @ 0 mls/hr CONT PRN IV PER PROTOCOL; Start 06/17/20 at 12: 00; Stop 06/17/20 at 12:39; Status DC Vecuronium [place] (Norcuron Bolus) 10 mg PRN Q1HR PRN IV SHIVERING; Start 06/17/20 at 12:00; Stop 06/17/20 at 12:39; Status DC Piperacillin Sod/ Tazobactam Sod 4.5 gm/Sodium Chloride 100 ml @ 200 mls/hr 1X ONCE IV ; Start 06/17/20 at 12:15; Stop 06/17/20 at 12:44; Status Cancel Midazolam HCl (Versed) 5 mg Q1HR PRN IV SEDATION; Start 06/17/20 at 12:45 Fentanyl Citrate (Fentanyl 2ml Vial) 100 mcg Q1HR IVP Last administered on 06/17/20at 12:59; Start 06/17/20 at 13:00 Allergies Allergies: Coded Allergies: Unable to Assess (Unverified , 06/17/20) ROS Review of System Negative for fever, chills, weight loss, shortness of breath, chest pain, indigestion, hematochezia, melena, and dysuria. Full 14-point review of systems is negative. Physical Exam Physical Examination General: Well-developed, well-nourished white female in no acute distress HEENT: Normocephalic andatraumatic. Temporal arteriespulsatile and nontender. Neck: Supple without bruit, no meningismus Musculoskeletal: Stability:see neurologic. Gait exam:see neurologic. Tone:see neurologic.Strength:see neurologic. Neurological: Mental Status: Intubated, no response to voice, postures to pain. Triggers ventilator. Cranial Nerves:Pupils unreactive to light, no spontaneous extraoc ular movements. There is no facial asymmetry. Reflexes:2+ and symmetric with flexor plantar responses. Motor:Postures. Coordination and gait:Not cooperative. Sensory:Not cooperative. Vitals VITALS Vital Signs Date Time Temp Pulse Resp B/P (MAP) Pulse Ox O2 Delivery O2 Flow Rate FiO2 06/17/20 13:00 95 26 109/62 (78) 96 Ventilator 06/17/20 06:48 97.0 15.0 97.0 Labs Labs Laboratory Tests Test 06/17/20 06:58 06/17/20 07:28 06/17/20 08:20 06/17/20 08:32 Glucose (Fingerstick) 322 mg/dL (70-99) White Blood Count 18.5 x10^3/uL (4.0-11.0) Red Blood Count 4.26 x10^6/uL (3.50-5.40) Hemoglobin 13.0 g/dL (12.0-15.5) Hematocrit 40.1 % (36.0-47.0) Mean Corpuscular Volume 94 fL (79-100) Mean Corpuscular Hemoglobin 31 pg (25-35) Mean Corpuscular Hemoglobin Concent 32 g/dL (31-37) Red Cell Distribution Width 13.6 % (11.5-14.5) Platelet Count 286 x10^3/uL (140-400) Neutrophils (%) (Auto) 73 % (31-73) Lymphocytes (%) (Auto) 23 % (24-48) Monocytes (%) (Auto) 2 % (0-9) Eosinophils (%) (Auto) 1 % (0-3) Basophils (%) (Auto) 0 % (0-3) Neutrophils # (Auto) 13.6 x10^3/uL (1.8-7.7) Lymphocytes # (Auto) 4.3 x10^3/uL (1.0-4.8) Monocytes # (Auto) 0.4 x10^3/uL (0.0-1.1) Eosinophils # (Auto) 0.2 x10^3/uL (0.0-0.7) Basophils # (Auto) 0.1 x10^3/uL (0.0-0.2) Segmented Neutrophils % 68 % (35-66) Band Neutrophils % 9 % (0-9) Lymphocytes % 21 % (24-48) Myelocytes % 2 % (0-0) Platelet Estimate Adequate (ADEQUATE) Prothrombin Time 15.4 SEC (11.7-14.0) Prothromb Time International Ratio 1.3 (0.8-1.1) Activated Partial Thromboplast Time 32 SEC (24-38) D-Dimer (Yaneth) > 20.00 ug/mlFEU Sodium Level 140 mmol/L (136-145) Potassium Level 3.4 mmol/L (3.5-5.1) Chloride Level 103 mmol/L (98-107) Carbon Dioxide Level 17 mmol/L (21-32) Anion Gap 20 (6-14) Blood Urea Nitrogen 18 mg/dL (7-20) Creatinine 1.1 mg/dL (0.6-1.0) Estimated GFR (Cockcroft-Gault) 51.2 BUN/Creatinine Ratio 16 (6-20) Glucose Level 318 mg/dL (70-99) Lactic Acid Level 8.6 mmol/L (0.4-2.0) Calcium Level 8.2 mg/dL (8.5-10.1) Magnesium Level 2.4 mg/dL (1.8-2.4) Total Bilirubin 0.3 mg/dL (0.2-1.0) Aspartate Amino Transf (AST/SGOT) 206 U/L (15-37) Alanine Aminotransferase (ALT/SGPT) 161 U/L (14-59) Alkaline Phosphatase 73 U/L (46-116) Troponin I Quantitative 0.020 ng/mL (0.000-0.055) BU-[id number]-[id number]-Type Natriuretic Peptide 555 pg/mL (0-124) Total Protein 6.6 g/dL (6.4-8.2) Albumin 3.3 g/dL (3.4-5.0) Albumin/Globulin Ratio 1.0 (1.0-1.7) O2 Saturation 98 % (92-99) Arterial Blood pH 7.20 (7.35-7.45) Arterial Blood pCO2 at Patient Temp 51 mmHg (35-46) Arterial Blood pO2 at Patient Temp 173 mmHg (75-108) Arterial Blood HCO3 20 mmol/L (21-28) Arterial Blood Base Excess -9 mmol/L (-3-3) Oxyhemoglobin 97.6 % Methemoglobin 0.2 % (0.0-1.9) Carbon Monoxide, Quantitative 0.3 % (0.0-1.9) FiO2 100 Urine Collection Type Unknown Urine Color Yellow Urine Clarity Clear Urine pH 6.0 (<5.0-8.0) Urine Specific [place] >=1.030 (1.000-1.030) Urine Protein >=300 mg/dL (NEG-TRACE) Urine Glucose (UA) 250 mg/dL (NEG) Urine Ketones (Stick) Negative mg/dL (NEG) Urine Blood Small (NEG) Urine Nitrite Negative (NEG) Urine Bilirubin Negative (NEG) Urine Urobilinogen Dipstick 0.2 mg/dL (0.2 mg/dL) Urine Leukocyte Esterase Negative (NEG) Urine RBC 3-5 /HPF (0-2) Urine WBC 1-4 /HPF (0-4) Urine Squamous Epithelial Cells Few /LPF Urine Amorphous Sediment Present /HPF Urine Bacteria Few /HPF (0-FEW) Urine Hyaline Casts Occasional /HPF Urine Opiates Screen Neg (NEG) Urine Methadone Screen Neg (NEG) Urine Barbiturates Neg (NEG) Urine Phencyclidine Screen Neg (NEG) Urine Amphetamine/Methamphetamine Neg (NEG) Urine Benzodiazepines Screen Pos (NEG) Urine Cocaine Screen Neg (NEG) Urine Cannabinoids Screen Pos (NEG) Urine Ethyl Alcohol Neg (NEG) Test 06/17/20 10:00 06/17/20 11:47 Troponin I Quantitative 0.192 ng/mL (0.000-0.055) 0.348 ng/mL (0.000-0.055) Lactic Acid Level 1.3 mmol/L (0.4-2.0) Laboratory Tests Test 06/17/20 06:58 06/17/20 07:28 06/17/20 08:20 06/17/20 08:32 Glucose (Fingerstick) 322 mg/dL (70-99) White Blood Count 18.5 x10^3/uL (4.0-11.0) Red Blood Count 4.26 x10^6/uL (3.50-5.40) Hemoglobin 13.0 g/dL (12.0-15.5) Hematocrit 40.1 % (36.0-47.0) Mean Corpuscular Volume 94 fL (79-100) Mean Corpuscular Hemoglobin 31 pg (25-35) Mean Corpuscular Hemoglobin Concent 32 g/dL (31-37) Red Cell Distribution Width 13.6 % (11.5-14.5) Platelet Count 286 x10^3/uL (140-400) Neutrophils (%) (Auto) 73 % (31-73) Lymphocytes (%) (Auto) 23 % (24-48) Monocytes (%) (Auto) 2 % (0-9) Eosinophils (%) (Auto) 1 % (0-3) Basophils (%) (Auto) 0 % (0-3) Neutrophils # (Auto) 13.6 x10^3/uL (1.8-7.7) Lymphocytes # (Auto) 4.3 x10^3/uL (1.0-4.8) Monocytes # (Auto) 0.4 x10^3/uL (0.0-1.1) Eosinophils # (Auto) 0.2 x10^3/uL (0.0-0.7) Basophils # (Auto) 0.1 x10^3/uL (0.0-0.2) Segmented Neutrophils % 68 % (35-66) Band Neutrophils % 9 % (0-9) Lymphocytes % 21 % (24-48) Myelocytes % 2 % (0-0) Platelet Estimate Adequate (ADEQUATE) Prothrombin Time 15.4 SEC (11.7-14.0) Prothromb Time International Ratio 1.3 (0.8-1.1) Activated Partial Thromboplast Time 32 SEC (24-38) D-Dimer (Yaneth) > 20.00 ug/mlFEU Sodium Level 140 mmol/L (136-145) Potassium Level 3.4 mmol/L (3.5-5.1) Chloride Level 103 mmol/L (98-107) Carbon Dioxide Level 17 mmol/L (21-32) Anion Gap 20 (6-14) Blood Urea Nitrogen 18 mg/dL (7-20) Creatinine 1.1 mg/dL (0.6-1.0) Estimated GFR (Cockcroft-Gault) 51.2 BUN/Creatinine Ratio 16 (6-20) Glucose Level 318 mg/dL (70-99) Lactic Acid Level 8.6 mmol/L (0.4-2.0) Calcium Level 8.2 mg/dL (8.5-10.1) Magnesium Level 2.4 mg/dL (1.8-2.4) Total Bilirubin 0.3 mg/dL (0.2-1.0) Aspartate Amino Transf (AST/SGOT) 206 U/L (15-37) Alanine Aminotransferase (ALT/SGPT) 161 U/L (14-59) Alkaline Phosphatase 73 U/L (46-116) Troponin I Quantitative 0.020 ng/mL (0.000-0.055) EI-Lim-Z-Type Natriuretic Peptide 555 pg/mL (0-124) Total Protein 6.6 g/dL (6.4-8.2) Albumin 3.3 g/dL (3.4-5.0) Albumin/Globulin Ratio 1.0 (1.0-1.7) O2 Saturation 98 % (92-99) Arterial Blood pH 7.20 (7.35-7.45) Arterial Blood pCO2 at Patient Temp 51 mmHg (35-46) Arterial Blood pO2 at Patient Temp 173 mmHg (75-108) Arterial Blood HCO3 20 mmol/L (21-28) Arterial Blood Base Excess -9 mmol/L (-3-3) Oxyhemoglobin 97.6 % Methemoglobin 0.2 % (0.0-1.9) Carbon Monoxide, Quantitative 0.3 % (0.0-1.9) FiO2 100 Urine Collection Type Unknown Urine Color Yellow Urine Clarity Clear Urine pH 6.0 (<5.0-8.0) Urine Specific [place] >=1.030 (1.000-1.030) Urine Protein >=300 mg/dL (NEG-TRACE) Urine Glucose (UA) 250 mg/dL (NEG) Urine Ketones (Stick) Negative mg/dL (NEG) Urine Blood Small (NEG) Urine Nitrite Negative (NEG) Urine Bilirubin Negative (NEG) Urine Urobilinogen Dipstick 0.2 mg/dL (0.2 mg/dL) Urine Leukocyte Esterase Negative (NEG) Urine RBC 3-5 /HPF (0-2) Urine WBC 1-4 /HPF (0-4) Urine Squamous Epithelial Cells Few /LPF Urine Amorphous Sediment Present /HPF Urine Bacteria Few /HPF (0-FEW) Urine Hyaline Casts Occasional /HPF Urine Opiates Screen Neg (NEG) Urine Methadone Screen Neg (NEG) Urine Barbiturates Neg (NEG) Urine Phencyclidine Screen Neg (NEG) Urine Amphetamine/Methamphetamine Neg (NEG) Urine Benzodiazepines Screen Pos (NEG) Urine Cocaine Screen Neg (NEG) Urine Cannabinoids Screen Pos (NEG) Urine Ethyl Alcohol Neg (NEG) Test 06/17/20 10:00 06/17/20 11:47 Troponin I Quantitative 0.192 ng/mL (0.000-0.055) 0.348 ng/mL (0.000-0.055) Lactic Acid Level 1.3 mmol/L (0.4-2.0) Images Images Head CT without contrast. HISTORY: Cardiac arrest. Unresponsive. TECHNIQUE: Computed tomographic images of the head were obtained without contrast. *One or more of the following individualized dose reduction techniques were u tilized for this examination: 1. Automated exposure control. 2. Adjustment of the mA and/or kV according to patient size. 3. Use of iterative reconstruction technique. COMPARISON: None. FINDINGS: There is no acute or subacute extra-axial or intraparenchymal hemorrhage. There is no mass effect or midline shift. There is no hydrocephalus. There is a left choroid fissure cyst, of no clinical significance. There are subtle areas of hypodensity within the cerebral white matter which are likely artifactual or due to chronic small vessel disease. The visualized portions of the orbits, paranasal sinuses and mastoid air cells are unremarkable. No suspicious calvarial lesion is seen. IMPRESSION: No acute intracranial finding. Note is made that MRI is more sensitive for acute infarction. T angiogram of the head and neck with intravenous contrast. HISTORY: Cardiac arrest. TECHNIQUE: Computed tomographic images of the head and neck were obtained following the administration of contrast. Three-dimensional maximum intensity projection images were obtained. *One or more of the following individualized dose reduction techniques were uti lized for this examination: 1. Automated exposure control. 2. Adjustment of the mA and/or kV according to patient size. 3. Use of iterative reconstruction technique. COMPARISON: Noncontrast head CT obtained on the same date. FINDINGS: The aortic arch is normal in caliber. There is no evidence of aortic dissection. There is partial consolidation of the left upper lobe with a ssociated air bronchograms. There is groundglass infiltrate throughout the left upper lobe. There is bilateral posterior dependent atelectasis. There is a small right pneumothorax. There is a displaced lateral right fourth rib fracture and angulated right third rib fracture. There are prominent mediastinal lymph nodes. The pulmonary arteries are characterized on a CT angiogram of the chest obtained on the same date. There is an endotracheal tube within the distal trachea. There is a nasogastric tube partially included on the [id number]. The carotid bifurcations are widely patent. The internal carotid arteries are widely patent. The vertebral arteries are widely patent and codominant. The basilar artery is widely patent. The anterior communicating artery is patent. There are suspected hypoplastic or development of absent posterior communicating arteries, a normal variant. No cerebral arterial filling defect or hemodynamically significant stenosis is seen. There is no suspicious enhancing lesion. There is no mass effect or midline shift. There is no hydrocephalus. There are small incidental arachnoid granulations within the transverse sinuses. No sinus thrombosis is seen. The orbits are unremarkable. The paranasal sinuses mastoid air cells are clear. There are multilevel degenerative changes throughout the cervical spine. This results in [id number] right and severe left foraminal and mild central canal stenosis at C5-C6 and mild bilateral foraminal and central canal stenosis at C6-C7. IMPRESSION: 1. No acute intracranial finding or evidence of hemodynamically significant stenosis or occlusion involving the neck or a renal arteries. 2. Small right pneumothorax and right third and fourth rib fractures. This is better characterized on the chest CT obtained on the same date. 3. Partial left upper lobe consolidation with surrounding groundglass infiltrate and bilateral posterior dependent atelectasis. Assessment/Plan Assessment/Plan Impression: Anoxic encephalopathy, ventricular fibrillation and asystole Under investigation for Covid Recommendations: I discussed with Dr. Judd at 8:15 this morning and recommended hypothermia protocol, but there was problems getting equipment in the emergency department. Note that she did have pulseless electrical activity as well as ventricular fibrillation, not as good a candidate for hypothermia. I explained this to the family. Continue current supportive care Await Covid testing No evidence that she had a stroke that requires further investigation, note that she already had head CT and CT angiogram. Fully discussed prognosis with the family, I am discouraged with the early posturing, but she needs a few days to see how she does. Thank you for letting me help with the patient's care. JEFF FLORES MD Jun 17, 2020 14:27
--- NOTE | 2020-06-17 15:00 | PDOC ---
PULMONARY PROGRESS NOTES DATE: 06/17/20 TIME: 14:59 Vitals Vital Signs Date Time Temp Pulse Resp B/P (MAP) Pulse Ox O2 Delivery O2 Flow Rate FiO2 06/17/20 13:00 95 26 109/62 (78) 96 Ventilator 06/17/20 06:48 97.0 15.0 97.0 Labs Laboratory Tests Test 06/17/20 06:58 06/17/20 07:28 06/17/20 08:20 06/17/20 08:32 Glucose (Fingerstick) 322 mg/dL (70-99) White Blood Count 18.5 x10^3/uL (4.0-11.0) Red Blood Count 4.26 x10^6/uL (3.50-5.40) Hemoglobin 13.0 g/dL (12.0-15.5) Hematocrit 40.1 % (36.0-47.0) Mean Corpuscular Volume 94 fL (79-100) Mean Corpuscular Hemoglobin 31 pg (25-35) Mean Corpuscular Hemoglobin Concent 32 g/dL (31-37) Red Cell Distribution Width 13.6 % (11.5-14.5) Platelet Count 286 x10^3/uL (140-400) Neutrophils (%) (Auto) 73 % (31-73) Lymphocytes (%) (Auto) 23 % (24-48) Monocytes (%) (Auto) 2 % (0-9) Eosinophils (%) (Auto) 1 % (0-3) Basophils (%) (Auto) 0 % (0-3) Neutrophils # (Auto) 13.6 x10^3/uL (1.8-7.7) Lymphocytes # (Auto) 4.3 x10^3/uL (1.0-4.8) Monocytes # (Auto) 0.4 x10^3/uL (0.0-1.1) Eosinophils # (Auto) 0.2 x10^3/uL (0.0-0.7) Basophils # (Auto) 0.1 x10^3/uL (0.0-0.2) Segmented Neutrophils % 68 % (35-66) Band Neutrophils % 9 % (0-9) Lymphocytes % 21 % (24-48) Myelocytes % 2 % (0-0) Platelet Estimate Adequate (ADEQUATE) Prothrombin Time 15.4 SEC (11.7-14.0) Prothromb Time International Ratio 1.3 (0.8-1.1) Activated Partial Thromboplast Time 32 SEC (24-38) D-Dimer (Yaneth) > 20.00 ug/mlFEU Sodium Level 140 mmol/L (136-145) Potassium Level 3.4 mmol/L (3.5-5.1) Chloride Level 103 mmol/L (98-107) Carbon Dioxide Level 17 mmol/L (21-32) Anion Gap 20 (6-14) Blood Urea Nitrogen 18 mg/dL (7-20) Creatinine 1.1 mg/dL (0.6-1.0) Estimated GFR (Cockcroft-Gault) 51.2 BUN/Creatinine Ratio 16 (6-20) Glucose Level 318 mg/dL (70-99) Lactic Acid Level 8.6 mmol/L (0.4-2.0) Calcium Level 8.2 mg/dL (8.5-10.1) Magnesium Level 2.4 mg/dL (1.8-2.4) Total Bilirubin 0.3 mg/dL (0.2-1.0) Aspartate Amino Transf (AST/SGOT) 206 U/L (15-37) Alanine Aminotransferase (ALT/SGPT) 161 U/L (14-59) Alkaline Phosphatase 73 U/L (46-116) Troponin I Quantitative 0.020 ng/mL (0.000-0.055) BF-Lpw-G-Type Natriuretic Peptide 555 pg/mL (0-124) Total Protein 6.6 g/dL (6.4-8.2) Albumin 3.3 g/dL (3.4-5.0) Albumin/Globulin Ratio 1.0 (1.0-1.7) O2 Saturation 98 % (92-99) Arterial Blood pH 7.20 (7.35-7.45) Arterial Blood pCO2 at Patient Temp 51 mmHg (35-46) Arterial Blood pO2 at Patient Temp 173 mmHg (75-108) Arterial Blood HCO3 20 mmol/L (21-28) Arterial Blood Base Excess -9 mmol/L (-3-3) Oxyhemoglobin 97.6 % Methemoglobin 0.2 % (0.0-1.9) Carbon Monoxide, Quantitative 0.3 % (0.0-1.9) FiO2 100 Urine Collection Type Unknown Urine Color Yellow Urine Clarity Clear Urine pH 6.0 (<5.0-8.0) Urine Specific [place] >=1.030 (1.000-1.030) Urine Protein >=300 mg/dL (NEG-TRACE) Urine Glucose (UA) 250 mg/dL (NEG) Urine Ketones (Stick) Negative mg/dL (NEG) Urine Blood Small (NEG) Urine Nitrite Negative (NEG) Urine Bilirubin Negative (NEG) Urine Urobilinogen Dipstick 0.2 mg/dL (0.2 mg/dL) Urine Leukocyte Esterase Negative (NEG) Urine RBC 3-5 /HPF (0-2) Urine WBC 1-4 /HPF (0-4) Urine Squamous Epithelial Cells Few /LPF Urine Amorphous Sediment Present /HPF Urine Bacteria Few /HPF (0-FEW) Urine Hyaline Casts Occasional /HPF Urine Opiates Screen Neg (NEG) Urine Methadone Screen Neg (NEG) Urine Barbiturates Neg (NEG) Urine Phencyclidine Screen Neg (NEG) Urine Amphetamine/Methamphetamine Neg (NEG) Urine Benzodiazepines Screen Pos (NEG) Urine Cocaine Screen Neg (NEG) Urine Cannabinoids Screen Pos (NEG) Urine Ethyl Alcohol Neg (NEG) Test 06/17/20 10:00 06/17/20 11:47 06/17/20 14:10 Troponin I Quantitative 0.192 ng/mL (0.000-0.055) 0.348 ng/mL (0.000-0.055) Lactic Acid Level 1.3 mmol/L (0.4-2.0) O2 Saturation 99 % (92-99) Arterial Blood pH 7.41 (7.35-7.45) Arterial Blood pCO2 at Patient Temp 29 mmHg (35-46) Arterial Blood pO2 at Patient Temp 277 mmHg (75-108) Arterial Blood HCO3 18 mmol/L (21-28) Arterial Blood Base Excess -5 mmol/L (-3-3) FiO2 80% Laboratory Tests Test 06/17/20 06:58 06/17/20 07:28 06/17/20 08:20 06/17/20 08:32 Glucose (Fingerstick) 322 mg/dL (70-99) White Blood Count 18.5 x10^3/uL (4.0-11.0) Red Blood Count 4.26 x10^6/uL (3.50-5.40) Hemoglobin 13.0 g/dL (12.0-15.5) Hematocrit 40.1 % (36.0-47.0) Mean Corpuscular Volume 94 fL (79-100) Mean Corpuscular Hemoglobin 31 pg (25-35) Mean Corpuscular Hemoglobin Concent 32 g/dL (31-37) Red Cell Distribution Width 13.6 % (11.5-14.5) Platelet Count 286 x10^3/uL (140-400) Neutrophils (%) (Auto) 73 % (31-73) Lymphocytes (%) (Auto) 23 % (24-48) Monocytes (%) (Auto) 2 % (0-9) Eosinophils (%) (Auto) 1 % (0-3) Basophils (%) (Auto) 0 % (0-3) Neutrophils # (Auto) 13.6 x10^3/uL (1.8-7.7) Lymphocytes # (Auto) 4.3 x10^3/uL (1.0-4.8) Monocytes # (Auto) 0.4 x10^3/uL (0.0-1.1) Eosinophils # (Auto) 0.2 x10^3/uL (0.0-0.7) Basophils # (Auto) 0.1 x10^3/uL (0.0-0.2) Segmented Neutrophils % 68 % (35-66) Band Neutrophils % 9 % (0-9) Lymphocytes % 21 % (24-48) Myelocytes % 2 % (0-0) Platelet Estimate Adequate (ADEQUATE) Prothrombin Time 15.4 SEC (11.7-14.0) Prothromb Time International Ratio 1.3 (0.8-1.1) Activated Partial Thromboplast Time 32 SEC (24-38) D-Dimer (Yaneth) > 20.00 ug/mlFEU Sodium Level 140 mmol/L (136-145) Potassium Level 3.4 mmol/L (3.5-5.1) Chloride Level 103 mmol/L (98-107) Carbon Dioxide Level 17 mmol/L (21-32) Anion Gap 20 (6-14) Blood Urea Nitrogen 18 mg/dL (7-20) Creatinine 1.1 mg/dL (0.6-1.0) Estimated GFR (Cockcroft-Gault) 51.2 BUN/Creatinine Ratio 16 (6-20) Glucose Level 318 mg/dL (70-99) Lactic Acid Level 8.6 mmol/L (0.4-2.0) Calcium Level 8.2 mg/dL (8.5-10.1) Magnesium Level 2.4 mg/dL (1.8-2.4) Total Bilirubin 0.3 mg/dL (0.2-1.0) Aspartate Amino Transf (AST/SGOT) 206 U/L (15-37) Alanine Aminotransferase (ALT/SGPT) 161 U/L (14-59) Alkaline Phosphatase 73 U/L (46-116) Troponin I Quantitative 0.020 ng/mL (0.000-0.055) IA-Ika-J-Type Natriuretic Peptide 555 pg/mL (0-124) Total Protein 6.6 g/dL (6.4-8.2) Albumin 3.3 g/dL (3.4-5.0) Albumin/Globulin Ratio 1.0 (1.0-1.7) O2 Saturation 98 % (92-99) Arterial Blood pH 7.20 (7.35-7.45) Arterial Blood pCO2 at Patient Temp 51 mmHg (35-46) Arterial Blood pO2 at Patient Temp 173 mmHg (75-108) Arterial Blood HCO3 20 mmol/L (21-28) Arterial Blood Base Excess -9 mmol/L (-3-3) Oxyhemoglobin 97.6 % Methemoglobin 0.2 % (0.0-1.9) Carbon Monoxide, Quantitative 0.3 % (0.0-1.9) FiO2 100 Urine Collection Type Unknown Urine Color Yellow Urine Clarity Clear Urine pH 6.0 (<5.0-8.0) Urine Specific [place] >=1.030 (1.000-1.030) Urine Protein >=300 mg/dL (NEG-TRACE) Urine Glucose (UA) 250 mg/dL (NEG) Urine Ketones (Stick) Negative mg/dL (NEG) Urine Blood Small (NEG) Urine Nitrite Negative (NEG) Urine Bilirubin Negative (NEG) Urine Urobilinogen Dipstick 0.2 mg/dL (0.2 mg/dL) Urine Leukocyte Esterase Negative (NEG) Urine RBC 3-5 /HPF (0-2) Urine WBC 1-4 /HPF (0-4) Urine Squamous Epithelial Cells Few /LPF Urine Amorphous Sediment Present /HPF Urine Bacteria Few /HPF (0-FEW) Urine Hyaline Casts Occasional /HPF Urine Opiates Screen Neg (NEG) Urine Methadone Screen Neg (NEG) Urine Barbiturates Neg (NEG) Urine Phencyclidine Screen Neg (NEG) Urine Amphetamine/Methamphetamine Neg (NEG) Urine Benzodiazepines Screen Pos (NEG) Urine Cocaine Screen Neg (NEG) Urine Cannabinoids Screen Pos (NEG) Urine Ethyl Alcohol Neg (NEG) Test 06/17/20 10:00 06/17/20 11:47 06/17/20 14:10 Troponin I Quantitative 0.192 ng/mL (0.000-0.055) 0.348 ng/mL (0.000-0.055) Lactic Acid Level 1.3 mmol/L (0.4-2.0) O2 Saturation 99 % (92-99) Arterial Blood pH 7.41 (7.35-7.45) Arterial Blood pCO2 at Patient Temp 29 mmHg (35-46) Arterial Blood pO2 at Patient Temp 277 mmHg (75-108) Arterial Blood HCO3 18 mmol/L (21-28) Arterial Blood Base Excess -5 mmol/L (-3-3) FiO2 80% Impression . Full consult dictated [id number] cardiopulmonary arrest Respiratory failure secondary to above Anoxic encephalopathy Case discussed with NIKA Zarco MD Jun 17, 2020 15:00
--- NOTE | 2020-06-17 16:35 | PDOC2 ---
CONSULT Date of Consult Date of Consult DATE: 06/17/20 TIME: 16:28 Reason for Consult Reason for Consult: Out of hospital cardiac arrest. Referring Physician Referring Physician: Dr. Hurley Identification/Chief Complaint Chief Complaint Out of hospital cardiac arrest as above Source Source: Chart review History of Present Illness Reason for Visit: The patient is a 59-year-old female with a history of hypertension and hypothyr oidism who collapsed at her home last night. Paramedics were called and the patient was initially found to be in pulseless ventricular tachycardia as well as having episodes of pulseless electrical activity during her code. She was transported to [facility] emergency room. She did have an extensive code time. At the hospital she had multiple imaging procedures on her head that showed no acute changes. CT scan of her chest showed no evidence of pulmonary emboli but did show a small right pneumothorax and rib fractures. Her initial troponin was 0.192 which increased to 0.348. Her twelve-lead EKG showed no acute ST segment changes. She is now intubated and sedated. She has no known history of coronary disease, congestive heart failure or cardiac arrhythmias. Past Medical History Cardiovascular: HTN, Hyperlipidemia Infectious disease: Herpes simplex2 Endocrine: Hypothyroidism, Other (Obesity, has been on phentermine, also on Ad derall) Past Surgical History Past Surgical History: Other (Lawnmower accident), No pertinent history Family History Family History: Coronary Artery Disease Social History Quit ALCOHOL: rare Current Problem List Problem List Problems Medical Problems: (1) Cardiac arrest Status: Acute (2) Fracture of ribs, multiple Status: Acute (3) Hyperglycemia Status: Acute (4) Pneumonia Status: Acute (5) Pneumothorax, right Status: Acute (6) Sternal fracture Status: Acute (7) VF (ventricular fibrillation) Status: Acute Current Medications Current Medications Current Medications Amiodarone HCl 150 mg/Dextrose 103 ml @ 618 mls/hr 1X ONCE IV Last administered on 06/17/20at 07:00; Start 06/17/20 at 07:00; Stop 06/17/20 at 07:09; Status DC Amiodarone HCl 450 mg/Dextrose 259 ml @ 33 mls/hr 1X ONCE IV ; Start 06/17/20 at 07:00; Stop 06/17/20 at 14:50; Status DC Sodium Chloride 1,000 ml @ 1,000 mls/hr 1X ONCE IV Last administered on 06/17/20at 08:11; Start 06/17/20 at 07:15; Stop 06/17/20 at 08:14; Status DC Midazolam HCl 100 ml @ 0 mls/hr 1X ONCE IV ; Start 06/17/20 at 07:15; Stop 06/17/20 at 07:16; Status DC Midazolam HCl (Versed) 5 mg STK-MED ONCE .ROUTE ; Start 06/17/20 at 07:17; Stop 06/17/20 at 07:17; Status DC Iohexol (Omnipaque 300 Mg/ml) 75 ml 1X ONCE IV Last administered on 06/17/20at 08:17; Start 06/17/20 at 08:15; Stop 06/17/20 at 08:16; Status DC Iohexol (Omnipaque 350 Mg/ml) 100 ml 1X ONCE IV Last administered on 06/17/20at 08:17; Start 06/17/20 at 08:15; Stop 06/17/20 at 08:16; Status DC Info (CONTRAST GIVEN -- Rx MONITORING) 1 each PRN DAILY PRN MC SEE COMMENTS; Start 06/17/20 at 08:15; Stop 06/19/20 at 08:14 Sodium Chloride 1,000 ml @ 1,000 mls/hr 1X ONCE IV Last administered on 06/17/20at 08:25; Start 06/17/20 at 08:15; Stop 06/17/20 at 09:14; Status DC Potassium Chloride/Water 100 ml @ 50 mls/hr 1X ONCE IV Last administered on 06/17/20at 10:16; Start 06/17/20 at 09:00; Stop 06/17/20 at 10:59; Status DC Piperacillin Sod/ Tazobactam Sod (Zosyn Per Pharmacy) 1 each PRN DAILY PRN MC SEE COMMENTS; Start 06/17/20 at 08:45 Piperacillin Sod/ Tazobactam Sod 4.5 gm/Sodium Chloride 100 ml @ 200 mls/hr 1X ONCE IV Last administered on 06/17/20at 10:15; Start 06/17/20 at 08:45; Stop 06/17/20 at 09:14; Status DC Sodium Chloride 1,000 ml @ 125 mls/hr Q8H IV Last administered on 06/17/20at 11:13; Start 06/17/20 at 09:00; Stop 06/18/20 at 08:59 Propofol (Diprivan) 200 mg 1X ONCE IV Last administered on 06/17/20at 09:00; Start 06/17/20 at 09:00; Stop 06/17/20 at 09:01; Status DC Propofol 100 ml @ As Directed STK-MED ONCE IV ; Start 06/17/20 at 09:05; Stop 06/17/20 at 09:05; Status DC Lidocaine HCl (Lidocaine 1% 20ml Vial) 20 ml 1X ONCE INJ Last administered on 06/17/20at 09:15; Start 06/17/20 at 09:15; Stop 06/17/20 at 09:20; Status DC Lidocaine HCl (Xylocaine-Mpf 1% 5ml Vial) 5 ml STK-MED ONCE .ROUTE ; Start 06/17/20 at 09:26; Stop 06/17/20 at 09:26; Status DC Sodium Chloride 1,000 ml @ 1,000 mls/hr 1X ONCE IV Last administered on 06/17/20at 10:15; Start 06/17/20 at 10:15; Stop 06/17/20 at 11:14; Status DC Propofol 100 ml @ 3.819 mls/ hr CONT PRN IV PER PROTOCOL Last administered on 06/17/20at 09:00; Start 06/17/20 at 10:45 Fentanyl Citrate (Fentanyl 2ml Vial) 100 mcg 1X ONCE IV ; Start 06/17/20 at 12:00; Stop 06/17/20 at 12:39; Status DC Midazolam HCl (Versed) 2 mg 1X ONCE IV ; Start 06/17/20 at 12:00; Stop 06/17/20 at 12:39; Status DC Magnesium Sulfate/ Dextrose 100 ml @ 100 mls/hr 1X ONCE IV Last administered on 06/17/20at 12:22; Start 06/17/20 at 12:00; Stop 06/17/20 at 12:39; Status DC Buspirone HCl (Buspar) 30 mg Q8H NG Last administered on 06/17/20at 12:31; Start 06/17/20 at 12:00; Stop 06/17/20 at 12:39; Status DC Glycerin/ Hypromellose/ Polyethylene (Artificial Tears) 1 drop Q6HRS OU ; Start 06/17/20 at 12:00; Stop 06/17/20 at 12:39; Status DC Glycerin/ Hypromellose/ Polyethylene (Artificial Tears) 1 drop PRN Q15MIN PRN OU DRY EYE; Start 06/17/20 at 12:00; Stop 06/17/20 at 12:39; Status DC Heparin Sodium (Porcine) (Heparin Sodium) 5,000 unit BID SQ ; Start 06/17/20 at 21:00; Stop 06/17/20 at 12:39; Status DC Pantoprazole Sodium (PROTONIX VIAL for IV PUSH) 40 mg DAILY IVP ; Start 06/18/20 at 09:00; Stop 06/17/20 at 12:39; Status DC Fentanyl Citrate 30 ml @ 0 mls/hr CONT PRN IV PER PROTOCOL.; Start 06/17/20 at 12:00; Stop 06/17/20 at 12:39; Status DC Propofol 100 ml @ 0 mls/hr CONT PRN IV PER PROTOCOL.; Start 06/17/20 at 12:00; Stop 06/17/20 at 12:39; Status DC Midazolam HCl 100 ml @ 0 mls/hr CONT PRN IV PER PROTOCOL; Start 06/17/20 at 12:00; Stop 06/17/20 at 12:39; Status DC Vecuronium [place] (Norcuron Bolus) 10 mg PRN Q1HR PRN IV SHIVERING; Start 06/17/20 at 12:00; Stop 06/17/20 at 12:39; Status DC Piperacillin Sod/ Tazobactam Sod 4.5 gm/Sodium Chloride 100 ml @ 200 mls/hr 1X ONCE IV ; Start 06/17/20 at 12:15; Stop 06/17/20 at 12:44; Status Cancel Midazolam HCl (Versed) 5 mg Q1HR PRN IV SEDATION; Start 06/17/20 at 12:45 Fentanyl Citrate (Fentanyl 2ml Vial) 100 mcg Q1HR IVP Last administered on at 12:59; Start 06/17/20 at 13:00 Piperacillin Sod/ Tazobactam Sod 3.375 gm/Sodium Chloride 50 ml @ 100 mls/hr Q6H IV ; Start 06/17/20 at 16:00 Allergies Allergies: Coded Allergies: No Known Drug Allergies (Unverified , 06/17/20) ROS Review of System Not obtainable Physical Exam General: Other (Intubated) Lungs: Other (Decreased breath sounds) Heart: Regular rate Abdomen: Normal bowel sounds Vitals VITALS Vital Signs Date Time Temp Pulse Resp B/P (MAP) Pulse Ox O2 Delivery O2 Flow Rate FiO2 06/17/20 15:15 80 26 135/84 (101) 94 Ventilator 06/17/20 06:48 97.0 15.0 97.0 Labs Labs Laboratory Tests Test 06/17/20 06:58 06/17/20 07:28 06/17/20 08:20 06/17/20 08:32 Glucose (Fingerstick) 322 mg/dL (70-99) White Blood Count 18.5 x10^3/uL (4.0-11.0) Red Blood Count 4.26 x10^6/uL (3.50-5.40) Hemoglobin 13.0 g/dL (12.0-15.5) Hematocrit 40.1 % (36.0-47.0) Mean Corpuscular Volume 94 fL (79-100) Mean Corpuscular Hemoglobin 31 pg (25-35) Mean Corpuscular Hemoglobin Concent 32 g/dL (31-37) Red Cell Distribution Width 13.6 % (11.5-14.5) Platelet Count 286 x10^3/uL (140-400) Neutrophils (%) (Auto) 73 % (31-73) Lymphocytes (%) (Auto) 23 % (24-48) Monocytes (%) (Auto) 2 % (0-9) Eosinophils (%) (Auto) 1 % (0-3) Basophils (%) (Auto) 0 % (0-3) Neutrophils # (Auto) 13.6 x10^3/uL (1.8-7.7) Lymphocytes # (Auto) 4.3 x10^3/uL (1.0-4.8) Monocytes # (Auto) 0.4 x10^3/uL (0.0-1.1) Eosinophils # (Auto) 0.2 x10^3/uL (0.0-0.7) Basophils # (Auto) 0.1 x10^3/uL (0.0-0.2) Segmented Neutrophils % 68 % (35-66) Band Neutrophils % 9 % (0-9) Lymphocytes % 21 % (24-48) Myelocytes % 2 % (0-0) Platelet Estimate Adequate (ADEQUATE) Prothrombin Time 15.4 SEC (11.7-14.0) Prothromb Time International Ratio 1.3 (0.8-1.1) Activated Partial Thromboplast Time 32 SEC (24-38) D-Dimer (Yaneth) > 20.00 ug/mlFEU Sodium Level 140 mmol/L (136-145) Potassium Level 3.4 mmol/L (3.5-5.1) Chloride Level 103 mmol/L (98-107) Carbon Dioxide Level 17 mmol/L (21-32) Anion Gap 20 (6-14) Blood Urea Nitrogen 18 mg/dL (7-20) Creatinine 1.1 mg/dL (0.6-1.0) Estimated GFR (Cockcroft-Gault) 51.2 BUN/Creatinine Ratio 16 (6-20) Glucose Level 318 mg/dL (70-99) Lactic Acid Level 8.6 mmol/L (0.4-2.0) Calcium Level 8.2 mg/dL (8.5-10.1) Magnesium Level 2.4 mg/dL (1.8-2.4) Total Bilirubin 0.3 mg/dL (0.2-1.0) Aspartate Amino Transf (AST/SGOT) 206 U/L (15-37) Alanine Aminotransferase (ALT/SGPT) 161 U/L (14-59) Alkaline Phosphatase 73 U/L (46-116) Troponin I Quantitative 0.020 ng/mL (0.000-0.055) YQ-Yjv-J-Type Natriuretic Peptide 555 pg/mL (0-124) Total Protein 6.6 g/dL (6.4-8.2) Albumin 3.3 g/dL (3.4-5.0) Albumin/Globulin Ratio 1.0 (1.0-1.7) O2 Saturation 98 % (92-99) Arterial Blood pH 7.20 (7.35-7.45) Arterial Blood pCO2 at Patient Temp 51 mmHg (35-46) Arterial Blood pO2 at Patient Temp 173 mmHg (75-108) Arterial Blood HCO3 20 mmol/L (21-28) Arterial Blood Base Excess -9 mmol/L (-3-3) Oxyhemoglobin 97.6 % Methemoglobin 0.2 % (0.0-1.9) Carbon Monoxide, Quantitative 0.3 % (0.0-1.9) FiO2 100 Urine Collection Type Unknown Urine Color Yellow Urine Clarity Clear Urine pH 6.0 (<5.0-8.0) Urine Specific [place] >=1.030 (1.000-1.030) Urine Protein >=300 mg/dL (NEG-TRACE) Urine Glucose (UA) 250 mg/dL (NEG) Urine Ketones (Stick) Negative mg/dL (NEG) Urine Blood Small (NEG) Urine Nitrite Negative (NEG) Urine Bilirubin Negative (NEG) Urine Urobilinogen Dipstick 0.2 mg/dL (0.2 mg/dL) Urine Leukocyte Esterase Negative (NEG) Urine RBC 3-5 /HPF (0-2) Urine WBC 1-4 /HPF (0-4) Urine Squamous Epithelial Cells Few /LPF Urine Amorphous Sediment Present /HPF Urine Bacteria Few /HPF (0-FEW) Urine Hyaline Casts Occasional /HPF Urine Opiates Screen Neg (NEG) Urine Methadone Screen Neg (NEG) Urine Barbiturates Neg (NEG) Urine Phencyclidine Screen Neg (NEG) Urine Amphetamine/Methamphetamine Neg (NEG) Urine Benzodiazepines Screen Pos (NEG) Urine Cocaine Screen Neg (NEG) Urine Cannabinoids Screen Pos (NEG) Urine Ethyl Alcohol Neg (NEG) Test 06/17/20 10:00 06/17/20 11:47 06/17/20 14:10 Troponin I Quantitative 0.192 ng/mL (0.000-0.055) 0.348 ng/mL (0.000-0.055) Lactic Acid Level 1.3 mmol/L (0.4-2.0) O2 Saturation 99 % (92-99) Arterial Blood pH 7.41 (7.35-7.45) Arterial Blood pCO2 at Patient Temp 29 mmHg (35-46) Arterial Blood pO2 at Patient Temp 277 mmHg (75-108) Arterial Blood HCO3 18 mmol/L (21-28) Arterial Blood Base Excess -5 mmol/L (-3-3) FiO2 80% Laboratory Tests Test 06/17/20 06:58 06/17/20 07:28 06/17/20 08:20 06/17/20 08:32 Glucose (Fingerstick) 322 mg/dL (70-99) White Blood Count 18.5 x10^3/uL (4.0-11.0) Red Blood Count 4.26 x10^6/uL (3.50-5.40) Hemoglobin 13.0 g/dL (12.0-15.5) Hematocrit 40.1 % (36.0-47.0) Mean Corpuscular Volume 94 fL (79-100) Mean Corpuscular Hemoglobin 31 pg (25-35) Mean Corpuscular Hemoglobin Concent 32 g/dL (31-37) Red Cell Distribution Width 13.6 % (11.5-14.5) Platelet Count 286 x10^3/uL (140-400) Neutrophils (%) (Auto) 73 % (31-73) Lymphocytes (%) (Auto) 23 % (24-48) Monocytes (%) (Auto) 2 % (0-9) Eosinophils (%) (Auto) 1 % (0-3) Basophils (%) (Auto) 0 % (0-3) Neutrophils # (Auto) 13.6 x10^3/uL (1.8-7.7) Lymphocytes # (Auto) 4.3 x10^3/uL (1.0-4.8) Monocytes # (Auto) 0.4 x10^3/uL (0.0-1.1) Eosinophils # (Auto) 0.2 x10^3/uL (0.0-0.7) Basophils # (Auto) 0.1 x10^3/uL (0.0-0.2) Segmented Neutrophils % 68 % (35-66) Band Neutrophils % 9 % (0-9) Lymphocytes % 21 % (24-48) Myelocytes % 2 % (0-0) Platelet Estimate Adequate (ADEQUATE) Prothrombin Time 15.4 SEC (11.7-14.0) Prothromb Time International Ratio 1.3 (0.8-1.1) Activated Partial Thromboplast Time 32 SEC (24-38) D-Dimer (Yaneth) > 20.00 ug/mlFEU Sodium Level 140 mmol/L (136-145) Potassium Level 3.4 mmol/L (3.5-5.1) Chloride Level 103 mmol/L (98-107) Carbon Dioxide Level 17 mmol/L (21-32) Anion Gap 20 (6-14) Blood Urea Nitrogen 18 mg/dL (7-20) Creatinine 1.1 mg/dL (0.6-1.0) Estimated GFR (Cockcroft-Gault) 51.2 BUN/Creatinine Ratio 16 (6-20) Glucose Level 318 mg/dL (70-99) Lactic Acid Level 8.6 mmol/L (0.4-2.0) Calcium Level 8.2 mg/dL (8.5-10.1) Magnesium Level 2.4 mg/dL (1.8-2.4) Total Bilirubin 0.3 mg/dL (0.2-1.0) Aspartate Amino Transf (AST/SGOT) 206 U/L (15-37) Alanine Aminotransferase (ALT/SGPT) 161 U/L (14-59) Alkaline Phosphatase 73 U/L (46-116) Troponin I Quantitative 0.020 ng/mL (0.000-0.055) RI-Eqc-J-Type Natriuretic Peptide 555 pg/mL (0-124) Total Protein 6.6 g/dL (6.4-8.2) Albumin 3.3 g/dL (3.4-5.0) Albumin/Globulin Ratio 1.0 (1.0-1.7) O2 Saturation 98 % (92-99) Arterial Blood pH 7.20 (7.35-7.45) Arterial Blood pCO2 at Patient Temp 51 mmHg (35-46) Arterial Blood pO2 at Patient Temp 173 mmHg (75-108) Arterial Blood HCO3 20 mmol/L (21-28) Arterial Blood Base Excess -9 mmol/L (-3-3) Oxyhemoglobin 97.6 % Methemoglobin 0.2 % (0.0-1.9) Carbon Monoxide, Quantitative 0.3 % (0.0-1.9) FiO2 100 Urine Collection Type Unknown Urine Color Yellow Urine Clarity Clear Urine pH 6.0 (<5.0-8.0) Urine Specific [place] >=1.030 (1.000-1.030) Urine Protein >=300 mg/dL (NEG-TRACE) Urine Glucose (UA) 250 mg/dL (NEG) Urine Ketones (Stick) Negative mg/dL (NEG) Urine Blood Small (NEG) Urine Nitrite Negative (NEG) Urine Bilirubin Negative (NEG) Urine Urobilinogen Dipstick 0.2 mg/dL (0.2 mg/dL) Urine Leukocyte Esterase Negative (NEG) Urine RBC 3-5 /HPF (0-2) Urine WBC 1-4 /HPF (0-4) Urine Squamous Epithelial Cells Few /LPF Urine Amorphous Sediment Present /HPF Urine Bacteria Few /HPF (0-FEW) Urine Hyaline Casts Occasional /HPF Urine Opiates Screen Neg (NEG) Urine Methadone Screen Neg (NEG) Urine Barbiturates Neg (NEG) Urine Phencyclidine Screen Neg (NEG) Urine Amphetamine/Methamphetamine Neg (NEG) Urine Benzodiazepines Screen Pos (NEG) Urine Cocaine Screen Neg (NEG) Urine Cannabinoids Screen Pos (NEG) Urine Ethyl Alcohol Neg (NEG) Test 06/17/20 10:00 06/17/20 11:47 06/17/20 14:10 Troponin I Quantitative 0.192 ng/mL (0.000-0.055) 0.348 ng/mL (0.000-0.055) Lactic Acid Level 1.3 mmol/L (0.4-2.0) O2 Saturation 99 % (92-99) Arterial Blood pH 7.41 (7.35-7.45) Arterial Blood pCO2 at Patient Temp 29 mmHg (35-46) Arterial Blood pO2 at Patient Temp 277 mmHg (75-108) Arterial Blood HCO3 18 mmol/L (21-28) Arterial Blood Base Excess -5 mmol/L (-3-3) FiO2 80% Images Images Multiple imaging procedure of her head showing no acute changes. CT scan of the chest showed no pulmonary emboli. It did show a small right pneumothorax and rib fractures. Assessment/Plan Assessment/Plan 1. Out of hospital cardiopulmonary arrest. Apparently prolonged resuscitation time with episodes of pulseless VT as well as pulseless electrical activity. Patient is now in a sinus rhythm and intubated. Troponin has slightly increased to 0.348. We are continuing treatments as per protocols. As noted above the patient has no history of coronary disease, congestive heart failure or cardiac arrhythmias. 2. Acute respiratory failure. Intubated. Pulmonary following. We will check an echocardiogram once Covid testing is available. Of note the patient did have an elevated D-dimer but imaging of her chest shows no PE. 3. Small right pneumothorax. Treatment as above. 4. Possible pneumonia. Covered with IV antibiotics. 5. History of hypothyroidism. Thank you for allowing us to participate in the care of your patient NURA MEHTA MD Jun 17, 2020 16:35
[2020-06-17] MEDS: PIPERACILLIN/TAZOBACTAM 3.375 GM in IV NORMAL SALINE 50ML 50 ML IV SCH (16:41)
[2020-06-17] MEDS ORDERED: HEPARIN for SUB-Q USE 5,000 UNIT/ML VIAL. SQ SCH (21:00)
[2020-06-17 23:15] VITALS: BP 148/89
[2020-06-17 23:30] VITALS: BP 141/90
[2020-06-17 23:45] VITALS: BP 137/86
[2020-06-18] VITALS (23 sets, daily range): BP systolic 102–172; BP diastolic 58–101
[2020-06-18] MEDS: IV NORMAL SALINE 1000ML BAG 1,000 ML IV SCH (00:20)
[2020-06-18] MEDS: PIPERACILLIN/TAZOBACTAM 3.375 GM in IV NORMAL SALINE 50ML 50 ML IV SCH ×5 (00:38→23:56)
--- NOTE | 2020-06-18 00:56 | CONS ---
DATE OF CONSULTATION: 06/17/2020 ATTENDING PHYSICIAN: Dr. Hurley. REASON FOR CONSULTATION: The patient is seen in pulmonary consultation at the request of Dr. Hurley for qpt-vs-vlshehwn cardiopulmonary arrest and vent management. HISTORY OF PRESENT ILLNESS: The patient is a 59-year-old that woke up this morning, went back to bed and woke her up. The patient was complaining of being dizzy, then she became unresponsive. He started CPR. EMS was summoned, has found the patient to have agonal breathing and pulseless ventricular tachycardia. The patient was resuscitated. She then went pulseless once again in the Emergency Department. She had pulseless electrical activity. CPR was performed. Part of her workup included a chest x-ray along with a CT angiogram of the chest. I reviewed the CT angiogram, which revealed some small right-sided pneumothorax. No evidence of pulmonary emboli. There was hazy opacities in the bases. Since then, the patient has been evaluated by Neurology. Chest tube has been placed. Her white count was 18,000, hemoglobin of 13. Arterial blood gas initially pH of 7.20, PaCO2 of 51, pO2 of 173. Repeat arterial blood gas revealed a pH of 7.41, PaCO2 29, pO2 of 277. Electrolytes were noted. Lactic acid level was elevated. Case was discussed with Dr. Judd from the Emergency Department. We started the patient on some empiric antibiotics. Neurology has seen the patient. 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 She is a COVID-[address] angiogram of the neck and head revealed no acute intracranial findings. No hemodynamically significant stenosis of the neck or renal arteries. There was a small right-sided effusion. PAST MEDICAL HISTORY: Otherwise remarkable for hypertension, hyperlipidemia, previous herpes simplex 2, hypothyroidism. The patient treated for obesity with some phentermine, also Adderall. PAST SURGICAL HISTORY: She had a ____ lower extremity. Toes were amputated. FAMILY HISTORY: No coronary artery disease. SOCIAL HISTORY: She is . Ex-smoker, rare alcohol use. REVIEW OF SYSTEMS: Unobtainable secondary to the patient's condition. PHYSICAL EXAMINATION: GENERAL: The patient was seen in the Emergency Room holding area on assist control ventilation, not assisting the vent. She was sedated with Diprivan. She was posturing, otherwise hemodynamically stable. HEENT: Eyes, the pupils were pinpoint. No oculocephalic reflex. NECK: Jugular venous distention was not elevated. CHEST: Full expansion anteriorly. LUNGS: Clear. No wheezes. CARDIOVASCULAR: Regular rate and rhythm with S1, S2, no S3. ABDOMEN: Soft, nontender. EXTREMITIES: No clubbing, cyanosis or edema. LABORATORY DATA: As indicated above. Toxicology screen was positive for benzodiazepines. Chest x-ray and CT as indicated above. IMPRESSION: 1. Acute respiratory failure secondary to wjd-so-naqzyhff cardiopulmonary arrest. 2. Iys-be-tcdransl ventricular fibrillation and asystole leading to anoxic brain injury. 3. Anoxic encephalopathy. 4. COVID suspect. The patient apparently had clinical symptoms and signs of COVID several weeks ago. 5. Morbid obesity. 6. Leukocytosis. 7. Lactic acidosis secondary to ped-tv-kxicntqv cardiac arrest. 8. Abnormal x-ray revealing bibasilar atelectasis, infiltrates. 9. Pneumothorax secondary to CPR. 10. Sternal sternal fracture secondary to CPR. 11. Pneumonia positive, gram-negative, gram-positive. PLAN: 1. We will continue current support with assist control ventilation. We will maintain the patient's alkalotic state to help with edema of the brain. 2. Empiric antibiotics for possible sepsis. 3. Follow Neurology input. 4. Continue chest tube placement. Currently, no air leak seen. 5. Possible pneumonia, gram-negative, gram-positive. 6. Sternal fracture secondary to CPR. I do appreciate the privilege in sharing in the patient's care. Total cumulative critical care time of 58 minutes from 2:00 p.m. to 2:58 p.m. NIKA GARNER MD DR: SOFIA/mario JOB#: [id number] / [id number]
[2020-06-18] MEDS: PROPOFOL 100 ML IV PRN ×7 (01:59→23:55)
[2020-06-18 07:19] LABS: CREATININE 0.6 mg/dL (0.6-1.0); PHOSPHORUS 2.6 mg/dL (2.6-4.7); POTASSIUM 3.4 mmol/L (3.5-5.1)
--- NOTE | 2020-06-18 08:03 | PDOC ---
[facility] PROGRESS NOTE Date of Service DOS: DATE: 06/18/20 TIME: 07:53 Chief Complaint Chief Complaint Cardiac arrest with resuscitation and probable pneumonia, leukocytosis, electrolyte disturbance, hypokalemia, lactic acidosis, elevated troponin. The patient will be admitted. We will consult Pulmonary Medicine, Infectious Disease, and Cardiology. She is going to the ICU. Vent weaning. Propofol for sedation. Serial enzymes, serial EKGs, IV Zosyn until she is seen by Infectious Disease. Home meds, DVT prophylaxis. Full code. History of Present Illness History of Present Illness The patient is a pleasant 59-year-old female who had COVID-19 two months ago. She had a witnessed cardiac arrest today. The family started CPR, they called the ambulance. She has now been resuscitated and intubated. She is currently being examined in the ER where she is starting to have some posturing. She is n ot really responding to pain either, but her pupils are reactive. 06/18 Patient seen in ICU. Afebrile. Ventilated, FiO2 40%, PEEP 5. Continue antibiotic coverage. Charts and labs reviewed. Discussed with RN, no acute events overnight. COVID-19 negative. Echocardiogram pending. Vitals/I&O Vitals/I&O: Vital Signs Date Time Temp Pulse Resp B/P (MAP) Pulse Ox O2 Delivery O2 Flow Rate FiO2 06/18/20 06:00 90 26 164/99 (120) 95 Ventilator 06/18/20 04:00 98.8 98.8 I & O 06/17/20 06/17/20 06/18/20 15:00 23:00 07:00 Intake Total 200 ml 50 ml 1603.9 ml Output Total 1075 ml 825 ml 968 ml Balance -875 ml -775 ml 635.9 ml Physical Exam General: Other (Intubated) Heart: Regular rate Lungs: Crackles Abdomen: Normal bowel sounds Extremities: No clubbing, No cyanosis Skin: No rashes, No breakdown Labs Labs: Laboratory Tests Test 06/17/20 08:20 06/17/20 08:32 06/17/20 08:33 06/17/20 10:00 O2 Saturation 98 % (92-99) Arterial Blood pH 7.20 (7.35-7.45) Arterial Blood pCO2 at Patient Temp 51 mmHg (35-46) Arterial Blood pO2 at Patient Temp 173 mmHg (75-108) Arterial Blood HCO3 20 mmol/L (21-28) Arterial Blood Base Excess -9 mmol/L (-3-3) Oxyhemoglobin 97.6 % Methemoglobin 0.2 % (0.0-1.9) Carbon Monoxide, Quantitative 0.3 % (0.0-1.9) FiO2 100 Urine Collection Type Unknown Urine Color Yellow Urine Clarity Clear Urine pH 6.0 (<5.0-8.0) Urine Specific [place] >=1.030 (1.000-1.030) Urine Protein >=300 mg/dL (NEG-TRACE) Urine Glucose (UA) 250 mg/dL (NEG) Urine Ketones (Stick) Negative mg/dL (NEG) Urine Blood Small (NEG) Urine Nitrite Negative (NEG) Urine Bilirubin Negative (NEG) Urine Urobilinogen Dipstick 0.2 mg/dL (0.2 mg/dL) Urine Leukocyte Esterase Negative (NEG) Urine RBC 3-5 /HPF (0-2) Urine WBC 1-4 /HPF (0-4) Urine Squamous Epithelial Cells Few /LPF Urine Amorphous Sediment Present /HPF Urine Bacteria Few /HPF (0-FEW) Urine Hyaline Casts Occasional /HPF Urine Opiates Screen Neg (NEG) Urine Methadone Screen Neg (NEG) Urine Barbiturates Neg (NEG) Urine Phencyclidine Screen Neg (NEG) Urine Amphetamine/Methamphetamine Neg (NEG) Urine Benzodiazepines Screen Pos (NEG) Urine Cocaine Screen Neg (NEG) Urine Cannabinoids Screen Pos (NEG) Urine Ethyl Alcohol Neg (NEG) Coronavirus (PCR) Not detected (Not Detected) Troponin I Quantitative 0.192 ng/mL (0.000-0.055) Test 06/17/20 11:47 06/17/20 14:10 06/17/20 23:47 06/18/20 05:40 Lactic Acid Level 1.3 mmol/L (0.4-2.0) Troponin I Quantitative 0.348 ng/mL (0.000-0.055) O2 Saturation 99 % (92-99) Arterial Blood pH 7.41 (7.35-7.45) Arterial Blood pCO2 at Patient Temp 29 mmHg (35-46) Arterial Blood pO2 at Patient Temp 277 mmHg (75-108) Arterial Blood HCO3 18 mmol/L (21-28) Arterial Blood Base Excess -5 mmol/L (-3-3) FiO2 80% Glucose (Fingerstick) 136 mg/dL (70-99) Sodium Level 137 mmol/L (136-145) Potassium Level 3.4 mmol/L (3.5-5.1) Chloride Level 104 mmol/L (98-107) Carbon Dioxide Level 23 mmol/L (21-32) Anion Gap 10 (6-14) Blood Urea Nitrogen 7 mg/dL (7-20) Creatinine 0.6 mg/dL (0.6-1.0) Estimated GFR (Cockcroft-Gault) 103.0 Glucose Level 110 mg/dL (70-99) Calcium Level 8.0 mg/dL (8.5-10.1) Phosphorus Level 2.6 mg/dL (2.6-4.7) Magnesium Level 2.0 mg/dL (1.8-2.4) Assessment and Plan Assessmemt and Plan Problems Medical Problems: (1) Cardiac arrest Status: Acute (2) Fracture of ribs, multiple Status: Acute (3) Hyperglycemia Status: Acute (4) Pneumonia Status: Acute (5) Pneumothorax, right Status: Acute (6) Sternal fracture Status: Acute (7) VF (ventricular fibrillation) Status: Acute Comment Review of Relevant I have reviewed the following items afua (where applicable) has been applied. Medications: Current Medications Medications (Trade) Dose Ordered Sig/Rosalio Route PRN Reason Start Time Stop Time Status Last Admin Dose Admin Iohexol (Omnipaque 300 Mg/ml) 75 ml 1X ONCE IV 06/17/20 08:15 06/17/20 08:16 DC 06/17/20 08:17 Iohexol (Omnipaque 350 Mg/ml) 100 ml 1X ONCE IV 06/17/20 08:15 06/17/20 08:16 DC 06/17/20 08:17 Sodium Chloride 1,000 ml @ 1,000 mls/hr 1X ONCE IV 06/17/20 08:15 06/17/20 09:14 DC 06/17/20 08:25 Potassium Chloride/Water 100 ml @ 50 mls/hr 1X ONCE IV 06/17/20 09:00 06/17/20 10:59 DC 06/17/20 10:16 Piperacillin Sod/ Tazobactam Sod 4.5 gm/Sodium Chloride 100 ml @ 200 mls/hr 1X ONCE IV 06/17/20 08:45 06/17/20 09:14 DC 06/17/20 10:15 Sodium Chloride 1,000 ml @ 125 mls/hr Q8H IV 06/17/20 09:00 06/18/20 08:59 06/17/20 23:39 Propofol (Diprivan) 200 mg 1X ONCE IV 06/17/20 09:00 06/17/20 09:01 DC 06/17/20 09:00 Lidocaine HCl (Lidocaine 1% 20ml Vial) 20 ml 1X ONCE INJ 06/17/20 09:15 06/17/20 09:20 DC 06/17/20 09:15 Sodium Chloride 1,000 ml @ 1,000 mls/hr 1X ONCE IV 06/17/20 10:15 06/17/20 11:14 DC 06/17/20 10:15 Propofol 100 ml @ 3.819 mls/ hr CONT PRN IV PER PROTOCOL 06/17/20 10:45 06/18/20 05:57 Magnesium Sulfate/ Dextrose 100 ml @ 100 mls/hr 1X ONCE IV 06/17/20 12:00 06/17/20 12:39 DC 06/17/20 12:22 Buspirone HCl (Buspar) 30 mg Q8H NG 06/17/20 12:00 06/17/20 12:39 DC 06/17/20 12:31 Fentanyl Citrate (Fentanyl 2ml Vial) 100 mcg Q1HR IVP 06/17/20 13:00 06/17/20 23:41 DC 06/17/20 18:55 Piperacillin Sod/ Tazobactam Sod 3.375 gm/Sodium Chloride 50 ml @ 100 mls/hr Q6H IV 06/17/20 16:00 06/18/20 05:57 Justifications for Admission Other Justification LASHELL SILVER MD Jun 18, 2020 08:03
[2020-06-18] MEDS ORDERED: PANTOPRAZOLE IV PUSH 40 MG VIAL. IVP SCH (09:00)
[2020-06-18 09:22] LABS: BASE EXCESS ABG -2 mmol/L (-3-3); HCO3 ABG 21 mmol/L (21-28); PCO2 ABG 30 mmHg (35-46); PO2 ABG 75 mmHg (75-108); SAT O2 ABG 95 % (92-99)
[2020-06-18 09:24] LABS: FIO2 ABG 40
[2020-06-18] MEDS ORDERED: POTASSIUM BICARB 10 MEQ EFFERVESCENT TABLET. NG ONE (09:45)
--- NOTE | 2020-06-18 09:53 | PDOC ---
PROGRESS NOTES Date of Service DATE: 06/18/20 TIME: 09:51 Assessment Anoxic encephalopathy, ventricular fibrillation and asystole Under investigation for Covid Encouraging that she is restless when off sedation Plan Continue current supportive care Await Covid testing No evidence that she had a stroke that requires further investigation, note that she already had head CT and CT angiogram. Fully discussed with the family Subjective None Objective Vital Signs Date Time Temp Pulse Resp B/P (MAP) Pulse Ox O2 Delivery O2 Flow Rate FiO2 06/18/20 08:30 96 Ventilator 06/18/20 06:00 90 26 164/99 (120) 06/18/20 04:00 98.8 98.8 Intake and Output 06/18/20 07:00 Intake Total 1853.9 ml Output Total 2868 ml Balance -1014.1 ml Intake Oral 0 ml IV Total 1853.9 ml Output Urine Total 2825 ml Gastric Drainage Total 10 ml Chest Tube Drainage Total 33 ml PHYSICAL EXAM Sedated on ventilator, when off sedation she is restless, moving arms and legs and fighting the ventilator, according to nurse PERRL. EOMI. CN: no focal findings. Muscle tone: normal. Muscle strength: No response to pain DTR: 1+ Plantar reflex: Silent Gait: not examined. Sensory exam: Not cooperative Cerebellar: Not cooperative Review of Relevant I have reviewed the following items afua (where applicable) has been applied. Labs Laboratory Tests Test 06/17/20 06:58 06/17/20 07:28 06/17/20 08:20 06/17/20 08:32 Glucose (Fingerstick) 322 mg/dL (70-99) White Blood Count 18.5 x10^3/uL (4.0-11.0) Red Blood Count 4.26 x10^6/uL (3.50-5.40) Hemoglobin 13.0 g/dL (12.0-15.5) Hematocrit 40.1 % (36.0-47.0) Mean Corpuscular Volume 94 fL (79-100) Mean Corpuscular Hemoglobin 31 pg (25-35) Mean Corpuscular Hemoglobin Concent 32 g/dL (31-37) Red Cell Distribution Width 13.6 % (11.5-14.5) Platelet Count 286 x10^3/uL (140-400) Neutrophils (%) (Auto) 73 % (31-73) Lymphocytes (%) (Auto) 23 % (24-48) Monocytes (%) (Auto) 2 % (0-9) Eosinophils (%) (Auto) 1 % (0-3) Basophils (%) (Auto) 0 % (0-3) Neutrophils # (Auto) 13.6 x10^3/uL (1.8-7.7) Lymphocytes # (Auto) 4.3 x10^3/uL (1.0-4.8) Monocytes # (Auto) 0.4 x10^3/uL (0.0-1.1) Eosinophils # (Auto) 0.2 x10^3/uL (0.0-0.7) Basophils # (Auto) 0.1 x10^3/uL (0.0-0.2) Segmented Neutrophils % 68 % (35-66) Band Neutrophils % 9 % (0-9) Lymphocytes % 21 % (24-48) Myelocytes % 2 % (0-0) Platelet Estimate Adequate (ADEQUATE) Prothrombin Time 15.4 SEC (11.7-14.0) Prothromb Time International Ratio 1.3 (0.8-1.1) Activated Partial Thromboplast Time 32 SEC (24-38) D-Dimer (Yaneth) > 20.00 ug/mlFEU Sodium Level 140 mmol/L (136-145) Potassium Level 3.4 mmol/L (3.5-5.1) Chloride Level 103 mmol/L (98-107) Carbon Dioxide Level 17 mmol/L (21-32) Anion Gap 20 (6-14) Blood Urea Nitrogen 18 mg/dL (7-20) Creatinine 1.1 mg/dL (0.6-1.0) Estimated GFR (Cockcroft-Gault) 51.2 BUN/Creatinine Ratio 16 (6-20) Glucose Level 318 mg/dL (70-99) Lactic Acid Level 8.6 mmol/L (0.4-2.0) Calcium Level 8.2 mg/dL (8.5-10.1) Magnesium Level 2.4 mg/dL (1.8-2.4) Total Bilirubin 0.3 mg/dL (0.2-1.0) Aspartate Amino Transf (AST/SGOT) 206 U/L (15-37) Alanine Aminotransferase (ALT/SGPT) 161 U/L (14-59) Alkaline Phosphatase 73 U/L (46-116) Troponin I Quantitative 0.020 ng/mL (0.000-0.055) YI-Ygp-V-Type Natriuretic Peptide 555 pg/mL (0-124) Total Protein 6.6 g/dL (6.4-8.2) Albumin 3.3 g/dL (3.4-5.0) Albumin/Globulin Ratio 1.0 (1.0-1.7) O2 Saturation 98 % (92-99) Arterial Blood pH 7.20 (7.35-7.45) Arterial Blood pCO2 at Patient Temp 51 mmHg (35-46) Arterial Blood pO2 at Patient Temp 173 mmHg (75-108) Arterial Blood HCO3 20 mmol/L (21-28) Arterial Blood Base Excess -9 mmol/L (-3-3) Oxyhemoglobin 97.6 % Methemoglobin 0.2 % (0.0-1.9) Carbon Monoxide, Quantitative 0.3 % (0.0-1.9) FiO2 100 Urine Collection Type Unknown Urine Color Yellow Urine Clarity Clear Urine pH 6.0 (<5.0-8.0) Urine Specific [place] >=1.030 (1.000-1.030) Urine Protein >=300 mg/dL (NEG-TRACE) Urine Glucose (UA) 250 mg/dL (NEG) Urine Ketones (Stick) Negative mg/dL (NEG) Urine Blood Small (NEG) Urine Nitrite Negative (NEG) Urine Bilirubin Negative (NEG) Urine Urobilinogen Dipstick 0.2 mg/dL (0.2 mg/dL) Urine Leukocyte Esterase Negative (NEG) Urine RBC 3-5 /HPF (0-2) Urine WBC 1-4 /HPF (0-4) Urine Squamous Epithelial Cells Few /LPF Urine Amorphous Sediment Present /HPF Urine Bacteria Few /HPF (0-FEW) Urine Hyaline Casts Occasional /HPF Urine Opiates Screen Neg (NEG) Urine Methadone Screen Neg (NEG) Urine Barbiturates Neg (NEG) Urine Phencyclidine Screen Neg (NEG) Urine Amphetamine/Methamphetamine Neg (NEG) Urine Benzodiazepines Screen Pos (NEG) Urine Cocaine Screen Neg (NEG) Urine Cannabinoids Screen Pos (NEG) Urine Ethyl Alcohol Neg (NEG) Test 06/17/20 08:33 06/17/20 10:00 06/17/20 11:47 06/17/20 14:10 Coronavirus (PCR) Not detected (Not Detected) Troponin I Quantitative 0.192 ng/mL (0.000-0.055) 0.348 ng/mL (0.000-0.055) Lactic Acid Level 1.3 mmol/L (0.4-2.0) O2 Saturation 99 % (92-99) Arterial Blood pH 7.41 (7.35-7.45) Arterial Blood pCO2 at Patient Temp 29 mmHg (35-46) Arterial Blood pO2 at Patient Temp 277 mmHg (75-108) Arterial Blood HCO3 18 mmol/L (21-28) Arterial Blood Base Excess -5 mmol/L (-3-3) FiO2 80% Test 06/17/20 23:47 06/18/20 05:40 06/18/20 08:30 Glucose (Fingerstick) 136 mg/dL (70-99) Sodium Level 137 mmol/L (136-145) Potassium Level 3.4 mmol/L (3.5-5.1) Chloride Level 104 mmol/L (98-107) Carbon Dioxide Level 23 mmol/L (21-32) Anion Gap 10 (6-14) Blood Urea Nitrogen 7 mg/dL (7-20) Creatinine 0.6 mg/dL (0.6-1.0) Estimated GFR (Cockcroft-Gault) 103.0 Glucose Level 110 mg/dL (70-99) Calcium Level 8.0 mg/dL (8.5-10.1) Phosphorus Level 2.6 mg/dL (2.6-4.7) Magnesium Level 2.0 mg/dL (1.8-2.4) O2 Saturation 95 % (92-99) Arterial Blood pH 7.45 (7.35-7.45) Arterial Blood pCO2 at Patient Temp 30 mmHg (35-46) Arterial Blood pO2 at Patient Temp 75 mmHg (75-108) Arterial Blood HCO3 21 mmol/L (21-28) Arterial Blood Base Excess -2 mmol/L (-3-3) FiO2 40 Laboratory Tests Test 06/17/20 10:00 06/17/20 11:47 06/17/20 14:10 06/17/20 23:47 Troponin I Quantitative 0.192 ng/mL (0.000-0.055) 0.348 ng/mL (0.000-0.055) Lactic Acid Level 1.3 mmol/L (0.4-2.0) O2 Saturation 99 % (92-99) Arterial Blood pH 7.41 (7.35-7.45) Arterial Blood pCO2 at Patient Temp 29 mmHg (35-46) Arterial Blood pO2 at Patient Temp 277 mmHg (75-108) Arterial Blood HCO3 18 mmol/L (21-28) Arterial Blood Base Excess -5 mmol/L (-3-3) FiO2 80% Glucose (Fingerstick) 136 mg/dL (70-99) Test 06/18/20 05:40 06/18/20 08:30 Sodium Level 137 mmol/L (136-145) Potassium Level 3.4 mmol/L (3.5-5.1) Chloride Level 104 mmol/L (98-107) Carbon Dioxide Level 23 mmol/L (21-32) Anion Gap 10 (6-14) Blood Urea Nitrogen 7 mg/dL (7-20) Creatinine 0.6 mg/dL (0.6-1.0) Estimated GFR (Cockcroft-Gault) 103.0 Glucose Level 110 mg/dL (70-99) Calcium Level 8.0 mg/dL (8.5-10.1) Phosphorus Level 2.6 mg/dL (2.6-4.7) Magnesium Level 2.0 mg/dL (1.8-2.4) O2 Saturation 95 % (92-99) Arterial Blood pH 7.45 (7.35-7.45) Arterial Blood pCO2 at Patient Temp 30 mmHg (35-46) Arterial Blood pO2 at Patient Temp 75 mmHg (75-108) Arterial Blood HCO3 21 mmol/L (21-28) Arterial Blood Base Excess -2 mmol/L (-3-3) FiO2 40 Microbiology 06/17/20 Blood Culture - Preliminary, Resulted NO GROWTH AFTER 1 DAY Medications Current Medications Amiodarone HCl 150 mg/Dextrose 103 ml @ 618 mls/hr 1X ONCE IV Last administered on 06/17/20at 07:00; Start 06/17/20 at 07:00; Stop 06/17/20 at 07:09; Status DC Amiodarone HCl 450 mg/Dextrose 259 ml @ 33 mls/hr 1X ONCE IV ; Start 06/17/20 at 07:00; Stop 06/17/20 at 14:50; Status DC Sodium Chloride 1,000 ml @ 1,000 mls/hr 1X ONCE IV Last administered on 06/17/20at 08:11; Start 06/17/20 at 07:15; Stop 06/17/20 at 08:14; Status DC Midazolam HCl 100 ml @ 0 mls/hr 1X ONCE IV ; Start 06/17/20 at 07:15; Stop 06/17/20 at 07:16; Status DC Midazolam HCl (Versed) 5 mg STK-MED ONCE .ROUTE ; Start 06/17/20 at 07:17; Stop 06/17/20 at 07:17; Status DC Iohexol (Omnipaque 300 Mg/ml) 75 ml 1X ONCE IV Last administered on 06/17/20at 08:17; Start 06/17/20 at 08:15; Stop 06/17/20 at 08:16; Status DC Iohexol (Omnipaque 350 Mg/ml) 100 ml 1X ONCE IV Last administered on 06/17/20at 08:17; Start 06/17/20 at 08:15; Stop 06/17/20 at 08:16; Status DC Info (CONTRAST GIVEN -- Rx MONITORING) 1 each PRN DAILY PRN MC SEE COMMENTS; Start 06/17/20 at 08:15; Stop 06/19/20 at 08:14 Sodium Chloride 1,000 ml @ 1,000 mls/hr 1X ONCE IV Last administered on 06/17/20at 08:25; Start 06/17/20 at 08:15; Stop 06/17/20 at 09:14; Status DC Potassium Chloride/Water 100 ml @ 50 mls/hr 1X ONCE IV Last administered on 06/17/20at 10:16; Start 06/17/20 at 09:00; Stop 06/17/20 at 10:59; Status DC Piperacillin Sod/ Tazobactam Sod (Zosyn Per Pharmacy) 1 each PRN DAILY PRN MC SEE COMMENTS; Start 06/17/20 at 08:45 Piperacillin Sod/ Tazobactam Sod 4.5 gm/Sodium Chloride 100 ml @ 200 mls/hr 1X ONCE IV Last administered on 06/17/20at 10:15; Start 06/17/20 at 08:45; Stop 06/17/20 at 09:14; Status DC Sodium Chloride 1,000 ml @ 125 mls/hr Q8H IV Last administered on 06/17/20at 23:39; Start 06/17/20 at 09:00; Stop 06/18/20 at 08:59; Status DC Propofol (Diprivan) 200 mg 1X ONCE IV Last administered on 06/17/20at 09:00; Start 06/17/20 at 09:00; Stop 06/17/20 at 09:01; Status DC Propofol 100 ml @ As Directed STK-MED ONCE IV ; Start 06/17/20 at 09:05; Stop 06/17/20 at 09:05; Status DC Lidocaine HCl (Lidocaine 1% 20ml Vial) 20 ml 1X ONCE INJ Last administered on 06/17/20at 09:15; Start 06/17/20 at 09:15; Stop 06/17/20 at 09:20; Status DC Lidocaine HCl (Xylocaine-Mpf 1% 5ml Vial) 5 ml STK-MED ONCE .ROUTE ; Start 06/17/20 at 09:26; Stop 06/17/20 at 09:26; Status DC Sodium Chloride 1,000 ml @ 1,000 mls/hr 1X ONCE IV Last administered on 06/17/20at 10:15; Start 06/17/20 at 10:15; Stop 06/17/20 at 11:14; Status DC Propofol 100 ml @ 3.819 mls/ hr CONT PRN IV PER PROTOCOL Last administered on 06/18/20at 05:57; Start 06/17/20 at 10:45 Fentanyl Citrate (Fentanyl 2ml Vial) 100 mcg 1X ONCE IV ; Start 06/17/20 at 12:00; Stop 06/17/20 at 12:39; Status DC Midazolam HCl (Versed) 2 mg 1X ONCE IV ; Start 06/17/20 at 12:00; Stop 06/17/20 at 12:39; Status DC Magnesium Sulfate/ Dextrose 100 ml @ 100 mls/hr 1X ONCE IV Last administered on 06/17/20at 12:22; Start 06/17/20 at 12:00; Stop 06/17/20 at 12:39; Status DC Buspirone HCl (Buspar) 30 mg Q8H NG Last administered on 06/17/20at 12:31; Start 06/17/20 at 12:00; Stop 06/17/20 at 12:39; Status DC Glycerin/ Hypromellose/ Polyethylene (Artificial Tears) 1 drop Q6HRS OU ; Start 06/17/20 at 12:00; Stop 06/17/20 at 12:39; Status DC Glycerin/ Hypromellose/ Polyethylene (Artificial Tears) 1 drop PRN Q15MIN PRN OU DRY EYE; Start 06/17/20 at 12:00; Stop 06/17/20 at 12:39; Status DC Heparin Sodium (Porcine) (Heparin Sodium) 5,000 unit BID SQ ; Start 06/17/20 at 21:00; Stop 06/17/20 at 12:39; Status DC Pantoprazole Sodium (PROTONIX VIAL for IV PUSH) 40 mg DAILY IVP ; Start 06/18/20 at 09:00; Stop 06/17/20 at 12:39; Status DC Fentanyl Citrate 30 ml @ 0 mls/hr CONT PRN IV PER PROTOCOL.; Start 06/17/20 at 12:00; Stop 06/17/20 at 12:39; Status DC Propofol 100 ml @ 0 mls/hr CONT PRN IV PER PROTOCOL.; Start 06/17/20 at 12:00; Stop 06/17/20 at 12:39; Status DC Midazolam HCl 100 ml @ 0 mls/hr CONT PRN IV PER PROTOCOL; Start 06/17/20 at 12:00; Stop 06/17/20 at 12:39; Status DC Vecuronium Two Dot (Norcuron Bolus) 10 mg PRN Q1HR PRN IV SHIVERING; Start 06/17/20 at 12:00; Stop 06/17/20 at 12:39; Status DC Piperacillin Sod/ Tazobactam Sod 4.5 gm/Sodium Chloride 100 ml @ 200 mls/hr 1X ONCE IV ; Start 06/17/20 at 12:15; Stop 06/17/20 at 12:44; Status Cancel Midazolam HCl (Versed) 5 mg Q1HR PRN IV SEDATION; Start 06/17/20 at 12:45 Fentanyl Citrate (Fentanyl 2ml Vial) 100 mcg Q1HR IVP Last administered on 06/17/20at 18:55; Start 06/17/20 at 13:00; Stop 06/17/20 at 23:41; Status DC Piperacillin Sod/ Tazobactam Sod 3.375 gm/Sodium Chloride 50 ml @ 100 mls/hr Q6H IV Last administered on 06/18/20at 05:57; Start 06/17/20 at 16:00 Potassium Bicarbonate (Potassium Effervescent Tablet) 40 meq 1X ONCE NG ; Start 06/18/20 at 09:45; Stop 06/18/20 at 09:48; Status DC Vitals/I & O Vital Sign - Last 24 Hours 06/17/20 06/17/20 06/17/20 06/17/20 09:55 10:00 10:05 10:10 Pulse 98 104 94 92 Resp B/P (MAP) 137/70 (92) 122/73 (89) 107/69 (82) 123/75 (91) Pulse Ox 95 95 95 99 O2 Delivery Ventilator Ventilator Ventilator Ventilator 06/17/20 06/17/20 06/17/20 06/17/20 10:15 10:20 10:25 10:30 Pulse 92 96 92 94 Resp B/P (MAP) 113/70 (84) 125/73 (90) 114/72 (86) 119/70 (86) Pulse Ox 98 98 98 98 O2 Delivery Ventilator Ventilator Ventilator Ventilator 06/17/20 06/17/20 06/17/20 06/17/20 10:45 11:00 11:15 11:30 Pulse 98 96 94 96 Resp B/P (MAP) 112/67 (82) 105/68 (80) 119/71 (87) 113/75 (88) Pulse Ox 98 96 94 96 O2 Delivery Ventilator Ventilator Ventilator Ventilator 06/17/20 06/17/20 06/17/20 06/17/20 11:45 12:00 12:15 12:30 Pulse 90 96 95 100 Resp B/P (MAP) 116/70 (85) 119/77 (91) 125/78 (94) 114/78 (90) Pulse Ox 98 96 94 98 O2 Delivery Ventilator Ventilator Ventilator Ventilator 06/17/20 06/17/20 06/17/20 06/17/20 12:30 12:45 12:59 13:00 Pulse 100 95 Resp B/P (MAP) 136/79 (98) 109/62 (78) Pulse Ox 100 96 94 96 O2 Delivery Ventilator Ventilator Ventilator Ventilator 1/3/06/17/20 06/17/20 06/17/20 14:45 14:55 15:00 15:15 Pulse 82 82 80 Resp B/P (MAP) 129/80 (96) 141/88 (105) 135/84 (101) Pulse Ox 94 94 94 O2 Delivery Ventilator Ventilator Ventilator Ventilator 06/17/20 06/17/20 06/17/20 06/17/20 17:00 17:51 18:00 18:55 Pulse 79 81 Resp B/P (MAP) 134/78 (96) 140/89 (106) Pulse Ox 94 94 94 93 O2 Delivery Ventilator Ventilator Ventilator Ventilator 06/17/20 06/17/20 06/17/20 06/17/20 19:02 20:00 20:48 21:00 Pulse 74 Resp B/P (MAP) 119/72 (88) 137/87 (104) 144/84 (104) Pulse Ox 94 95 95 96 O2 Delivery Ventilator Ventilator Ventilator Ventilator 06/17/20 06/17/20 06/17/20 06/17/20 22:00 23:00 23:15 23:30 Pulse 93 B/P (MAP) 152/86 (108) 140/81 (100) 148/89 (108) Pulse Ox 96 96 O2 Delivery Ventilator Ventilator Ventilator Mechanical Ventilator 06/17/20 06/17/20 06/17/20 06/18/20 23:30 23:35 23:45 00:00 Temp 98.3 98.3 Pulse 76 74 74 B/P (MAP) 141/90 (107) 137/86 (103) 139/87 (104) Pulse Ox 95 94 O2 Delivery Ventilator Ventilator Ventilator Ventilator 06/18/20 06/18/20 06/18/20 06/18/20 01:00 02:00 03:00 04:00 Temp 98.8 98.8 Pulse 76 80 83 85 Resp B/P (MAP) 140/92 (108) 146/93 (110) 152/91 (111) 150/86 (107) Pulse Ox 96 97 96 95 O2 Delivery Ventilator Ventilator Ventilator Ventilator 06/18/20 06/18/20 06/18/20 06/18/20 04:00 05:00 05:18 06:00 Pulse 87 90 B/P (MAP) 172/80 (110) 164/99 (120) Pulse Ox 94 94 95 O2 Delivery Mechanical Ventilator Ventilator Ventilator Ventilator 06/18/20 08:30 Pulse Ox 96 O2 Delivery Ventilator Intake and Output 06/17/20 06/17/20 06/18/20 15:00 23:00 07:00 Intake Total 200 ml 50 ml 1603.9 ml Output Total 1075 ml 825 ml 968 ml Balance -875 ml -775 ml 635.9 ml Justicifation of Admission Dx: Justifications for Admission: Justification of Admission Dx: N/A JEFF FLORES MD Jun 18, 2020 09:53
--- NOTE | 2020-06-18 09:57 | CONS ---
DATE OF CONSULTATION: 06/18/2020 REQUESTING PHYSICIAN: Dr. Hurley. REASON FOR CONSULTATION: Lactic acidosis and leukocytosis, rule out sepsis. HISTORY OF PRESENT ILLNESS: This is a 59-year-old female, who woke up in the morning at home and talked to the with little dizziness and then she collapsed. The patient had been started CPR and called the ambulance. When the ambulance arrived, the patient was found to be in V tach. CPR, intubation was done. I believe ACLS protocol was followed. When came to the Emergency Room, the patient was in a pulseless electrical activity. The patient has been intubated on a ventilator since then. The patient has not had any fever. White count 18,000. Lactic acid up to 8.6. Slightly elevated creatinine. Drug screen positive with benzos and cannabinoids. COVID-19 negative. Chest x-ray and CT showed fracture of the sternum, fracture of the rib, small pneumothorax, some atelectasis/contusion in the lung. The patient is put on Zosyn and amiodarone. The patient is not able to provide any information, as well there is no family member at the bedside. All the information was obtained through chart review and discussing with the patient's nurse. PAST MEDICAL HISTORY: Positive for hypertension and hyperlipidemia. The patient has had a history of herpes, hypothyroidism and cardiac disorder. SOCIAL HISTORY: Unable to obtain. CURRENT MEDICATIONS: Reviewed. REVIEW OF SYSTEMS: As per HPI. All other systems reviewed and are negative. PHYSICAL EXAMINATION: GENERAL: Sedated, orally intubated female, not in distress. VITAL SIGNS: Stable. Temperature 98.8, pulse 87, respirations 26, blood pressure 164/99. HEENT: Both pupils are round and reacting. No conjunctival lesion. Mouth cannot be visualized, orally intubated. NECK: Supple. No JVP, no lymphadenopathy. LUNGS: Decreased breath sounds bilaterally. HEART: S1, S2, regular. No gallop or murmur. ABDOMEN: Soft, nontender. No organomegaly. EXTREMITIES: No edema or cyanosis. SKIN: Unremarkable. NEUROLOGICAL: The patient is sedated, orally intubated. LABORATORY DATA: White count is 18.5. BUN and creatinine are normal. Lactic acid improved to 1.3. IMAGING STUDIES: CT and x-rays reviewed. IMPRESSION: 1. Cardiopulmonary arrest at home. 2. Leukocytosis, likely reactive. 3. Lactic acidosis from #1. 4. Respiratory failure. 5. Suspected anoxic brain injury. 6. Hypertension. 7. Pneumothorax. 8. Rib fracture and sternal fracture. RECOMMENDATIONS: Continue Zosyn for the time being, soon to be able to discontinue. Supportive care. We will check the cultures and continue to follow. Thank you very much, Dr. Hurley, for giving me the opportunity to participate in this patient's care. POPPY RENAE MD DR: DRU/mario JOB#: [id number] / [id number]
--- NOTE | 2020-06-18 11:24 | PDOC ---
PULMONARY PROGRESS NOTES DATE: 06/18/20 TIME: 11:24 Subjective S/P cardiac arrest 06/17---PEA / V-fib remains on vent support Posturing on exam Vitals Vital Signs Date Time Temp Pulse Resp B/P (MAP) Pulse Ox O2 Delivery O2 Flow Rate FiO2 06/18/20 10:00 88 26 133/79 (97) 95 Ventilator 06/18/20 08:00 98.7 98.7 Comments intubated Lungs: Crackles Cardiovascular: S1 Abdomen: Soft Extremities: No Edema Labs Laboratory Tests Test 06/17/20 06:58 06/17/20 07:28 06/17/20 08:20 06/17/20 08:32 Glucose (Fingerstick) 322 mg/dL (70-99) White Blood Count 18.5 x10^3/uL (4.0-11.0) Red Blood Count 4.26 x10^6/uL (3.50-5.40) Hemoglobin 13.0 g/dL (12.0-15.5) Hematocrit 40.1 % (36.0-47.0) Mean Corpuscular Volume 94 fL (79-100) Mean Corpuscular Hemoglobin 31 pg (25-35) Mean Corpuscular Hemoglobin Concent 32 g/dL (31-37) Red Cell Distribution Width 13.6 % (11.5-14.5) Platelet Count 286 x10^3/uL (140-400) Neutrophils (%) (Auto) 73 % (31-73) Lymphocytes (%) (Auto) 23 % (24-48) Monocytes (%) (Auto) 2 % (0-9) Eosinophils (%) (Auto) 1 % (0-3) Basophils (%) (Auto) 0 % (0-3) Neutrophils # (Auto) 13.6 x10^3/uL (1.8-7.7) Lymphocytes # (Auto) 4.3 x10^3/uL (1.0-4.8) Monocytes # (Auto) 0.4 x10^3/uL (0.0-1.1) Eosinophils # (Auto) 0.2 x10^3/uL (0.0-0.7) Basophils # (Auto) 0.1 x10^3/uL (0.0-0.2) Segmented Neutrophils % 68 % (35-66) Band Neutrophils % 9 % (0-9) Lymphocytes % 21 % (24-48) Myelocytes % 2 % (0-0) Platelet Estimate Adequate (ADEQUATE) Prothrombin Time 15.4 SEC (11.7-14.0) Prothromb Time International Ratio 1.3 (0.8-1.1) Activated Partial Thromboplast Time 32 SEC (24-38) D-Dimer (Yaneth) > 20.00 ug/mlFEU Sodium Level 140 mmol/L (136-145) Potassium Level 3.4 mmol/L (3.5-5.1) Chloride Level 103 mmol/L (98-107) Carbon Dioxide Level 17 mmol/L (21-32) Anion Gap 20 (6-14) Blood Urea Nitrogen 18 mg/dL (7-20) Creatinine 1.1 mg/dL (0.6-1.0) Estimated GFR (Cockcroft-Gault) 51.2 BUN/Creatinine Ratio 16 (6-20) Glucose Level 318 mg/dL (70-99) Lactic Acid Level 8.6 mmol/L (0.4-2.0) Calcium Level 8.2 mg/dL (8.5-10.1) Magnesium Level 2.4 mg/dL (1.8-2.4) Total Bilirubin 0.3 mg/dL (0.2-1.0) Aspartate Amino Transf (AST/SGOT) 206 U/L (15-37) Alanine Aminotransferase (ALT/SGPT) 161 U/L (14-59) Alkaline Phosphatase 73 U/L (46-116) Troponin I Quantitative 0.020 ng/mL (0.000-0.055) CY-Box-X-Type Natriuretic Peptide 555 pg/mL (0-124) Total Protein 6.6 g/dL (6.4-8.2) Albumin 3.3 g/dL (3.4-5.0) Albumin/Globulin Ratio 1.0 (1.0-1.7) O2 Saturation 98 % (92-99) Arterial Blood pH 7.20 (7.35-7.45) Arterial Blood pCO2 at Patient Temp 51 mmHg (35-46) Arterial Blood pO2 at Patient Temp 173 mmHg (75-108) Arterial Blood HCO3 20 mmol/L (21-28) Arterial Blood Base Excess -9 mmol/L (-3-3) Oxyhemoglobin 97.6 % Methemoglobin 0.2 % (0.0-1.9) Carbon Monoxide, Quantitative 0.3 % (0.0-1.9) FiO2 100 Urine Collection Type Unknown Urine Color Yellow Urine Clarity Clear Urine pH 6.0 (<5.0-8.0) Urine Specific [place] >=1.030 (1.000-1.030) Urine Protein >=300 mg/dL (NEG-TRACE) Urine Glucose (UA) 250 mg/dL (NEG) Urine Ketones (Stick) Negative mg/dL (NEG) Urine Blood Small (NEG) Urine Nitrite Negative (NEG) Urine Bilirubin Negative (NEG) Urine Urobilinogen Dipstick 0.2 mg/dL (0.2 mg/dL) Urine Leukocyte Esterase Negative (NEG) Urine RBC 3-5 /HPF (0-2) Urine WBC 1-4 /HPF (0-4) Urine Squamous Epithelial Cells Few /LPF Urine Amorphous Sediment Present /HPF Urine Bacteria Few /HPF (0-FEW) Urine Hyaline Casts Occasional /HPF Urine Opiates Screen Neg (NEG) Urine Methadone Screen Neg (NEG) Urine Barbiturates Neg (NEG) Urine Phencyclidine Screen Neg (NEG) Urine Amphetamine/Methamphetamine Neg (NEG) Urine Benzodiazepines Screen Pos (NEG) Urine Cocaine Screen Neg (NEG) Urine Cannabinoids Screen Pos (NEG) Urine Ethyl Alcohol Neg (NEG) Test 06/17/20 08:33 06/17/20 10:00 06/17/20 11:47 06/17/20 14:10 Coronavirus (PCR) Not detected (Not Detected) Troponin I Quantitative 0.192 ng/mL (0.000-0.055) 0.348 ng/mL (0.000-0.055) Lactic Acid Level 1.3 mmol/L (0.4-2.0) O2 Saturation 99 % (92-99) Arterial Blood pH 7.41 (7.35-7.45) Arterial Blood pCO2 at Patient Temp 29 mmHg (35-46) Arterial Blood pO2 at Patient Temp 277 mmHg (75-108) Arterial Blood HCO3 18 mmol/L (21-28) Arterial Blood Base Excess -5 mmol/L (-3-3) FiO2 80% Test 06/17/20 23:47 06/18/20 05:40 06/18/20 08:30 Glucose (Fingerstick) 136 mg/dL (70-99) Sodium Level 137 mmol/L (136-145) Potassium Level 3.4 mmol/L (3.5-5.1) Chloride Level 104 mmol/L (98-107) Carbon Dioxide Level 23 mmol/L (21-32) Anion Gap 10 (6-14) Blood Urea Nitrogen 7 mg/dL (7-20) Creatinine 0.6 mg/dL (0.6-1.0) Estimated GFR (Cockcroft-Gault) 103.0 Glucose Level 110 mg/dL (70-99) Calcium Level 8.0 mg/dL (8.5-10.1) Phosphorus Level 2.6 mg/dL (2.6-4.7) Magnesium Level 2.0 mg/dL (1.8-2.4) O2 Saturation 95 % (92-99) Arterial Blood pH 7.45 (7.35-7.45) Arterial Blood pCO2 at Patient Temp 30 mmHg (35-46) Arterial Blood pO2 at Patient Temp 75 mmHg (75-108) Arterial Blood HCO3 21 mmol/L (21-28) Arterial Blood Base Excess -2 mmol/L (-3-3) FiO2 40 Laboratory Tests Test 06/17/20 11:47 06/17/20 14:10 06/17/20 23:47 06/18/20 05:40 Lactic Acid Level 1.3 mmol/L (0.4-2.0) Troponin I Quantitative 0.348 ng/mL (0.000-0.055) O2 Saturation 99 % (92-99) Arterial Blood pH 7.41 (7.35-7.45) Arterial Blood pCO2 at Patient Temp 29 mmHg (35-46) Arterial Blood pO2 at Patient Temp 277 mmHg (75-108) Arterial Blood HCO3 18 mmol/L (21-28) Arterial Blood Base Excess -5 mmol/L (-3-3) FiO2 80% Glucose (Fingerstick) 136 mg/dL (70-99) Sodium Level 137 mmol/L (136-145) Potassium Level 3.4 mmol/L (3.5-5.1) Chloride Level 104 mmol/L (98-107) Carbon Dioxide Level 23 mmol/L (21-32) Anion Gap 10 (6-14) Blood Urea Nitrogen 7 mg/dL (7-20) Creatinine 0.6 mg/dL (0.6-1.0) Estimated GFR (Cockcroft-Gault) 103.0 Glucose Level 110 mg/dL (70-99) Calcium Level 8.0 mg/dL (8.5-10.1) Phosphorus Level 2.6 mg/dL (2.6-4.7) Magnesium Level 2.0 mg/dL (1.8-2.4) Test 06/18/20 08:30 O2 Saturation 95 % (92-99) Arterial Blood pH 7.45 (7.35-7.45) Arterial Blood pCO2 at Patient Temp 30 mmHg (35-46) Arterial Blood pO2 at Patient Temp 75 mmHg (75-108) Arterial Blood HCO3 21 mmol/L (21-28) Arterial Blood Base Excess -2 mmol/L (-3-3) FiO2 40 Comments CXR IMPRESSION: 1. Right basilar pleural drainage catheter and tiny pneumothorax. 2. Left perihilar atelectasis or infiltrate. Impression . IMPRESSION: 1. Acute respiratory failure secondary to huu-va-tfdakhyr cardiopulmonary arrest. 2. Lws-ul-atwzlnsg ventricular fibrillation and asystole leading to anoxic brain injury. 3. Anoxic encephalopathy. 4. COVID suspect. The patient apparently had clinical symptoms and signs of COVID several weeks ago. 5. Morbid obesity. 6. Leukocytosis. 7. Lactic acidosis secondary to dau-ov-tegxjbzu cardiac arrest. 8. Abnormal x-ray revealing bibasilar atelectasis, infiltrates. 9. Pneumothorax secondary to CPR. 10. Sternal sternal fracture secondary to CPR. 11. Pneumonia positive, gram-negative, gram-positive. Plan . PLAN: continue current support with assist control ventilation, Fi02 40% Follow CXR/ABG-- no changes Continue Chest tube to suction, no leak on exam Follow ID recs for ABX on zosyn Follow neurology recs Follow Cardiology recs DVT/GI PPX D/W RN and RT Critical Care time [id number] Poor prognosis 2/2 anoxic injury NIKA GARNER MD Jun 18, 2020 11:24
[2020-06-18] MEDS ORDERED: LEVO75TA5 PO (11:52)
[2020-06-18] MEDS ORDERED: FLUO20CA16 PO (11:52)
[2020-06-18] MEDS ORDERED: TRAM50TA PO (11:52)
[2020-06-18] MEDS ORDERED: ACET-1797 PO (11:52)
[2020-06-18] MEDS ORDERED: DEXT20TA2 PO (11:52)
[2020-06-18] MEDS ORDERED: NAPR-514 PO (11:52)
--- NOTE | 2020-06-18 15:44 | NUR ---
SS following for discharge planning. SS reviewed pt chart and discussed with pt RN. Pt is from home with spouse and is currently on the vent at 40%. COVID19 negative. Pt on tube feedings. Pt on IV Zosyn and propofol. Not following commands. Not stable. SS will continue to follow for discharge planning.
--- NOTE | 2020-06-18 18:24 | PDOC ---
PROGRESS NOTES Date of Service DATE: 06/18/20 TIME: 18:22 Subjective Subjective Patient seen and evaluated Objective Objective Vital Signs Date Time Temp Pulse Resp B/P (MAP) Pulse Ox O2 Delivery O2 Flow Rate FiO2 06/18/20 16:00 100.0 86 26 123/78 (93) 97 Ventilator 100.0 06/17/20 06:48 15.0 Intake and Output 06/18/20 07:00 Intake Total 1853.9 ml Output Total 2868 ml Balance -1014.1 ml Intake Oral 0 ml IV Total 1853.9 ml Output Urine Total 2825 ml Gastric Drainage Total 10 ml Chest Tube Drainage Total 33 ml Physical Exam Physical Exam Visual exam pending Covid testing. Assessment Assessment Problems Medical Problems: (1) Cardiac arrest Status: Acute (2) Fracture of ribs, multiple Status: Acute (3) Hyperglycemia Status: Acute (4) Pneumonia Status: Acute (5) Pneumothorax, right Status: Acute (6) Sternal fracture Status: Acute (7) VF (ventricular fibrillation) Status: Acute 1. Out of hospital cardiopulmonary arrest. Apparently prolonged resuscitation time with episodes of pulseless VT as well as pulseless electrical activity. Patient remains sinus rhythm and intubated. Troponin has minimally increased. Continuing treatments as per protocols. As noted above the patient has no history of coronary disease, congestive heart failure or cardiac arrhythmias. 2. Acute respiratory failure. Intubated. Pulmonary following. We will check an echocardiogram once Covid testing is available. Of note the patient did have an elevated D-dimer but imaging of her chest shows no PE. 3. Small right pneumothorax. Treatment as above. 4. Possible pneumonia. Covered with IV antibiotics. 5. History of hypothyroidism. Comment Review of Relevant I have reviewed the following items afua (where applicable) has been applied. Labs Laboratory Tests Test 06/17/20 06:58 06/17/20 07:28 06/17/20 08:20 06/17/20 08:32 Glucose (Fingerstick) 322 mg/dL (70-99) White Blood Count 18.5 x10^3/uL (4.0-11.0) Red Blood Count 4.26 x10^6/uL (3.50-5.40) Hemoglobin 13.0 g/dL (12.0-15.5) Hematocrit 40.1 % (36.0-47.0) Mean Corpuscular Volume 94 fL (79-100) Mean Corpuscular Hemoglobin 31 pg (25-35) Mean Corpuscular Hemoglobin Concent 32 g/dL (31-37) Red Cell Distribution Width 13.6 % (11.5-14.5) Platelet Count 286 x10^3/uL (140-400) Neutrophils (%) (Auto) 73 % (31-73) Lymphocytes (%) (Auto) 23 % (24-48) Monocytes (%) (Auto) 2 % (0-9) Eosinophils (%) (Auto) 1 % (0-3) Basophils (%) (Auto) 0 % (0-3) Neutrophils # (Auto) 13.6 x10^3/uL (1.8-7.7) Lymphocytes # (Auto) 4.3 x10^3/uL (1.0-4.8) Monocytes # (Auto) 0.4 x10^3/uL (0.0-1.1) Eosinophils # (Auto) 0.2 x10^3/uL (0.0-0.7) Basophils # (Auto) 0.1 x10^3/uL (0.0-0.2) Segmented Neutrophils % 68 % (35-66) Band Neutrophils % 9 % (0-9) Lymphocytes % 21 % (24-48) Myelocytes % 2 % (0-0) Platelet Estimate Adequate (ADEQUATE) Prothrombin Time 15.4 SEC (11.7-14.0) Prothromb Time International Ratio 1.3 (0.8-1.1) Activated Partial Thromboplast Time 32 SEC (24-38) D-Dimer (Yaneth) > 20.00 ug/mlFEU Sodium Level 140 mmol/L (136-145) Potassium Level 3.4 mmol/L (3.5-5.1) Chloride Level 103 mmol/L (98-107) Carbon Dioxide Level 17 mmol/L (21-32) Anion Gap 20 (6-14) Blood Urea Nitrogen 18 mg/dL (7-20) Creatinine 1.1 mg/dL (0.6-1.0) Estimated GFR (Cockcroft-Gault) 51.2 BUN/Creatinine Ratio 16 (6-20) Glucose Level 318 mg/dL (70-99) Lactic Acid Level 8.6 mmol/L (0.4-2.0) Calcium Level 8.2 mg/dL (8.5-10.1) Magnesium Level 2.4 mg/dL (1.8-2.4) Total Bilirubin 0.3 mg/dL (0.2-1.0) Aspartate Amino Transf (AST/SGOT) 206 U/L (15-37) Alanine Aminotransferase (ALT/SGPT) 161 U/L (14-59) Alkaline Phosphatase 73 U/L (46-116) Troponin I Quantitative 0.020 ng/mL (0.000-0.055) AV-Tuu-S-Type Natriuretic Peptide 555 pg/mL (0-124) Total Protein 6.6 g/dL (6.4-8.2) Albumin 3.3 g/dL (3.4-5.0) Albumin/Globulin Ratio 1.0 (1.0-1.7) O2 Saturation 98 % (92-99) Arterial Blood pH 7.20 (7.35-7.45) Arterial Blood pCO2 at Patient Temp 51 mmHg (35-46) Arterial Blood pO2 at Patient Temp 173 mmHg (75-108) Arterial Blood HCO3 20 mmol/L (21-28) Arterial Blood Base Excess -9 mmol/L (-3-3) Oxyhemoglobin 97.6 % Methemoglobin 0.2 % (0.0-1.9) Carbon Monoxide, Quantitative 0.3 % (0.0-1.9) FiO2 100 Urine Collection Type Unknown Urine Color Yellow Urine Clarity Clear Urine pH 6.0 (<5.0-8.0) Urine Specific [place] >=1.030 (1.000-1.030) Urine Protein >=300 mg/dL (NEG-TRACE) Urine Glucose (UA) 250 mg/dL (NEG) Urine Ketones (Stick) Negative mg/dL (NEG) Urine Blood Small (NEG) Urine Nitrite Negative (NEG) Urine Bilirubin Negative (NEG) Urine Urobilinogen Dipstick 0.2 mg/dL (0.2 mg/dL) Urine Leukocyte Esterase Negative (NEG) Urine RBC 3-5 /HPF (0-2) Urine WBC 1-4 /HPF (0-4) Urine Squamous Epithelial Cells Few /LPF Urine Amorphous Sediment Present /HPF Urine Bacteria Few /HPF (0-FEW) Urine Hyaline Casts Occasional /HPF Urine Opiates Screen Neg (NEG) Urine Methadone Screen Neg (NEG) Urine Barbiturates Neg (NEG) Urine Phencyclidine Screen Neg (NEG) Urine Amphetamine/Methamphetamine Neg (NEG) Urine Benzodiazepines Screen Pos (NEG) Urine Cocaine Screen Neg (NEG) Urine Cannabinoids Screen Pos (NEG) Urine Ethyl Alcohol Neg (NEG) Test 06/17/20 08:33 06/17/20 10:00 06/17/20 11:47 06/17/20 14:10 Coronavirus (PCR) Not detected (Not Detected) Troponin I Quantitative 0.192 ng/mL (0.000-0.055) 0.348 ng/mL (0.000-0.055) Lactic Acid Level 1.3 mmol/L (0.4-2.0) O2 Saturation 99 % (92-99) Arterial Blood pH 7.41 (7.35-7.45) Arterial Blood pCO2 at Patient Temp 29 mmHg (35-46) Arterial Blood pO2 at Patient Temp 277 mmHg (75-108) Arterial Blood HCO3 18 mmol/L (21-28) Arterial Blood Base Excess -5 mmol/L (-3-3) FiO2 80% Test 06/17/20 23:47 06/18/20 05:40 06/18/20 08:30 Glucose (Fingerstick) 136 mg/dL (70-99) Sodium Level 137 mmol/L (136-145) Potassium Level 3.4 mmol/L (3.5-5.1) Chloride Level 104 mmol/L (98-107) Carbon Dioxide Level 23 mmol/L (21-32) Anion Gap 10 (6-14) Blood Urea Nitrogen 7 mg/dL (7-20) Creatinine 0.6 mg/dL (0.6-1.0) Estimated GFR (Cockcroft-Gault) 103.0 Glucose Level 110 mg/dL (70-99) Calcium Level 8.0 mg/dL (8.5-10.1) Phosphorus Level 2.6 mg/dL (2.6-4.7) Magnesium Level 2.0 mg/dL (1.8-2.4) O2 Saturation 95 % (92-99) Arterial Blood pH 7.45 (7.35-7.45) Arterial Blood pCO2 at Patient Temp 30 mmHg (35-46) Arterial Blood pO2 at Patient Temp 75 mmHg (75-108) Arterial Blood HCO3 21 mmol/L (21-28) Arterial Blood Base Excess -2 mmol/L (-3-3) FiO2 40 Laboratory Tests Test 06/17/20 23:47 06/18/20 05:40 06/18/20 08:30 Glucose (Fingerstick) 136 mg/dL (70-99) Sodium Level 137 mmol/L (136-145) Potassium Level 3.4 mmol/L (3.5-5.1) Chloride Level 104 mmol/L (98-107) Carbon Dioxide Level 23 mmol/L (21-32) Anion Gap 10 (6-14) Blood Urea Nitrogen 7 mg/dL (7-20) Creatinine 0.6 mg/dL (0.6-1.0) Estimated GFR (Cockcroft-Gault) 103.0 Glucose Level 110 mg/dL (70-99) Calcium Level 8.0 mg/dL (8.5-10.1) Phosphorus Level 2.6 mg/dL (2.6-4.7) Magnesium Level 2.0 mg/dL (1.8-2.4) O2 Saturation 95 % (92-99) Arterial Blood pH 7.45 (7.35-7.45) Arterial Blood pCO2 at Patient Temp 30 mmHg (35-46) Arterial Blood pO2 at Patient Temp 75 mmHg (75-108) Arterial Blood HCO3 21 mmol/L (21-28) Arterial Blood Base Excess -2 mmol/L (-3-3) FiO2 40 Microbiology 06/17/20 Blood Culture - Preliminary, Resulted NO GROWTH AFTER 1 DAY Medications Current Medications Amiodarone HCl 150 mg/Dextrose 103 ml @ 618 mls/hr 1X ONCE IV Last administered on 06/17/20at 07:00; Start 06/17/20 at 07:00; Stop 06/17/20 at 07:09; Status DC Amiodarone HCl 450 mg/Dextrose 259 ml @ 33 mls/hr 1X ONCE IV ; Start 06/17/20 at 07:00; Stop 06/17/20 at 14:50; Status DC Sodium Chloride 1,000 ml @ 1,000 mls/hr 1X ONCE IV Last administered on 06/17/20at 08:11; Start 06/17/20 at 07:15; Stop 06/17/20 at 08:14; Status DC Midazolam HCl 100 ml @ 0 mls/hr 1X ONCE IV ; Start 06/17/20 at 07:15; Stop 06/17/20 at 07:16; Status DC Midazolam HCl (Versed) 5 mg STK-MED ONCE .ROUTE ; Start 06/17/20 at 07:17; Stop 06/17/20 at 07:17; Status DC Iohexol (Omnipaque 300 Mg/ml) 75 ml 1X ONCE IV Last administered on 06/17/20at 08:17; Start 06/17/20 at 08:15; Stop 06/17/20 at 08:16; Status DC Iohexol (Omnipaque 350 Mg/ml) 100 ml 1X ONCE IV Last administered on 06/17/20at 08:17; Start 06/17/20 at 08:15; Stop 06/17/20 at 08:16; Status DC Info (CONTRAST GIVEN -- Rx MONITORING) 1 each PRN DAILY PRN MC SEE COMMENTS; Start 06/17/20 at 08:15; Stop 06/19/20 at 08:14 Sodium Chloride 1,000 ml @ 1,000 mls/hr 1X ONCE IV Last administered on 06/17/20at 08:25; Start 06/17/20 at 08:15; Stop 06/17/20 at 09:14; Status DC Potassium Chloride/Water 100 ml @ 50 mls/hr 1X ONCE IV Last administered on 06/17/20at 10:16; Start 06/17/20 at 09:00; Stop 06/17/20 at 10:59; Status DC Piperacillin Sod/ Tazobactam Sod (Zosyn Per Pharmacy) 1 each PRN DAILY PRN MC SEE COMMENTS; Start 06/17/20 at 08:45 Piperacillin Sod/ Tazobactam Sod 4.5 gm/Sodium Chloride 100 ml @ 200 mls/hr 1X ONCE IV Last administered on 06/17/20at 10:15; Start 06/17/20 at 08:45; Stop 06/17/20 at 09:14; Status DC Sodium Chloride 1,000 ml @ 125 mls/hr Q8H IV Last administered on 06/17/20at 23:39; Start 06/17/20 at 09:00; Stop 06/18/20 at 08:59; Status DC Propofol (Diprivan) 200 mg 1X ONCE IV Last administered on 06/17/20at 09:00; Start 06/17/20 at 09:00; Stop 06/17/20 at 09:01; Status DC Propofol 100 ml @ As Directed STK-MED ONCE IV ; Start 06/17/20 at 09:05; Stop 06/17/20 at 09:05; Status DC Lidocaine HCl (Lidocaine 1% 20ml Vial) 20 ml 1X ONCE INJ Last administered on 06/17/20at 09:15; Start 06/17/20 at 09:15; Stop 06/17/20 at 09:20; Status DC Lidocaine HCl (Xylocaine-Mpf 1% 5ml Vial) 5 ml STK-MED ONCE .ROUTE ; Start 06/17/20 at 09:26; Stop 06/17/20 at 09:26; Status DC Sodium Chloride 1,000 ml @ 1,000 mls/hr 1X ONCE IV Last administered on 06/17/20at 10:15; Start 06/17/20 at 10:15; Stop 06/17/20 at 11:14; Status DC Propofol 100 ml @ 3.819 mls/ hr CONT PRN IV PER PROTOCOL Last administered on 06/18/20at 17:01; Start 06/17/20 at 10:45 Fentanyl Citrate (Fentanyl 2ml Vial) 100 mcg 1X ONCE IV ; Start 06/17/20 at 12:00; Stop 06/17/20 at 12:39; Status DC Midazolam HCl (Versed) 2 mg 1X ONCE IV ; Start 06/17/20 at 12:00; Stop 06/17/20 at 12:39; Status DC Magnesium Sulfate/ Dextrose 100 ml @ 100 mls/hr 1X ONCE IV Last administered on 06/17/20at 12:22; Start 06/17/20 at 12:00; Stop 06/17/20 at 12:39; Status DC Buspirone HCl (Buspar) 30 mg Q8H NG Last administered on 06/17/20at 12:31; Start 06/17/20 at 12:00; Stop 06/17/20 at 12:39; Status DC Glycerin/ Hypromellose/ Polyethylene (Artificial Tears) 1 drop Q6HRS OU ; Start 06/17/20 at 12:00; Stop 06/17/20 at 12:39; Status DC Glycerin/ Hypromellose/ Polyethylene (Artificial Tears) 1 drop PRN Q15MIN PRN OU DRY EYE; Start 06/17/20 at 12:00; Stop 06/17/20 at 12:39; Status DC Heparin Sodium (Porcine) (Heparin Sodium) 5,000 unit BID SQ ; Start 06/17/20 at 21:00; Stop 06/17/20 at 12:39; Status DC Pantoprazole Sodium (PROTONIX VIAL for IV PUSH) 40 mg DAILY IVP ; Start 06/18/20 at 09:00; Stop 06/17/20 at 12:39; Status DC Fentanyl Citrate 30 ml @ 0 mls/hr CONT PRN IV PER PROTOCOL.; Start 06/17/20 at 12:00; Stop 06/17/20 at 12:39; Status DC Propofol 100 ml @ 0 mls/hr CONT PRN IV PER PROTOCOL.; Start 06/17/20 at 12:00; Stop 06/17/20 at 12:39; Status DC Midazolam HCl 100 ml @ 0 mls/hr CONT PRN IV PER PROTOCOL; Start 06/17/20 at 12:00; Stop 06/17/20 at 12:39; Status DC Vecuronium [place] (Norcuron Bolus) 10 mg PRN Q1HR PRN IV SHIVERING; Start 06/17/20 at 12:00; Stop 06/17/20 at 12:39; Status DC Piperacillin Sod/ Tazobactam Sod 4.5 gm/Sodium Chloride 100 ml @ 200 mls/hr 1X ONCE IV ; Start 06/17/20 at 12:15; Stop 06/17/20 at 12:44; Status Cancel Midazolam HCl (Versed) 5 mg Q1HR PRN IV SEDATION; Start 06/17/20 at 12:45 Fentanyl Citrate (Fentanyl 2ml Vial) 100 mcg Q1HR IVP Last administered on 06/17/20at 18:55; Start 06/17/20 at 13:00; Stop 06/17/20 at 23:41; Status DC Piperacillin Sod/ Tazobactam Sod 3.375 gm/Sodium Chloride 50 ml @ 100 mls/hr Q6H IV Last administered on 06/18/20at 11:29; Start 06/17/20 at 16:00 Potassium Bicarbonate (Potassium Effervescent Tablet) 40 meq 1X ONCE NG Last administered on 06/18/20at 10:00; Start 06/18/20 at 09:45; Stop 06/18/20 at 09:48; Status DC Albuterol/ Ipratropium (Duoneb) 3 ml RTQID NEB ; Start 06/18/20 at 20:00 Famotidine (Pepcid Vial) 20 mg BID IVP ; Start 06/18/20 at 21:00 Enoxaparin Sodium (Lovenox 40mg Syringe) 40 mg Q24H SQ ; Start 06/18/20 at 21:00 Active Scripts Active Reported Acetaminophen-Diphenhyd 500-25 (Acetaminophen/Diphenhydramine) 1 Each Tablet 1 Each PO HS PRN Naproxen 500 Mg Tablet 1 Tab PO BID PRN 30 Days Tramadol Hcl 50 Mg Tablet 50 Mg PO Q4HRS Levothyroxine Sodium 75 Mcg Tablet 1 Tab PO DAILY Adderall 20 Mg Tablet (Dextroamphetamine/Amphetamine) 20 Mg Tablet 1 Tab PO DAILY MDD 1 Tablet(s) 5 Days Prozac (Fluoxetine Hcl) 20 Mg Capsule 1 Cap PO [id number] Vitals/I & O Vital Sign - Last 24 Hours 06/17/20 06/17/20 06/17/20 06/17/20 18:55 19:02 20:00 20:48 Pulse 74 Resp B/P (MAP) 119/72 (88) 137/87 (104) Pulse Ox 93 94 95 95 O2 Delivery Ventilator Ventilator Ventilator Ventilator 06/17/20 06/17/20 06/17/20 06/17/20 21:00 22:00 23:00 23:15 Pulse 93 Resp B/P (MAP) 144/84 (104) 152/86 (108) 140/81 (100) 148/89 (108) Pulse Ox 96 96 96 O2 Delivery Ventilator Ventilator Ventilator Ventilator 06/17/20 06/17/20 06/17/20 06/17/20 23:30 23:30 23:35 23:45 Temp 98.3 98.3 Pulse 76 74 Resp B/P (MAP) 141/90 (107) 137/86 (103) Pulse Ox 95 O2 Delivery Mechanical Ventilator Ventilator Ventilator Ventilator 06/18/20 06/18/20 06/18/20 06/18/20 00:00 01:00 02:00 03:00 Pulse 74 76 80 83 Resp B/P (MAP) 139/87 (104) 140/92 (108) 146/93 (110) 152/91 (111) Pulse Ox 94 96 97 96 O2 Delivery Ventilator Ventilator Ventilator Ventilator 06/18/20 06/18/20 06/18/20 06/18/20 04:00 04:00 05:00 05:18 Temp 98.8 98.8 Pulse 85 87 Resp B/P (MAP) 150/86 (107) 172/80 (110) Pulse Ox 95 94 94 O2 Delivery Ventilator Mechanical Ventilator Ventilator Ventilator 06/18/20 06/18/20 06/18/20 06/18/20 06:00 07:00 08:00 08:00 Temp 98.7 98.7 Pulse 90 86 88 Resp B/P (MAP) 164/99 (120) 162/101 (121) 159/101 (120) Pulse Ox 95 95 95 O2 Delivery Ventilator Ventilator Mechanical Ventilator Ventilator 06/18/20 06/18/20 06/18/20 06/18/20 08:30 09:00 10:00 11:00 Pulse 88 88 90 Resp B/P (MAP) 138/81 (100) 133/79 (97) 144/78 (100) Pulse Ox 96 96 95 90 O2 Delivery Ventilator Ventilator Ventilator Ventilator 06/18/20 06/18/20 06/18/20 06/18/20 12:00 12:00 12:30 13:00 Temp 99.5 99.5 Pulse 94 90 B/P (MAP) 117/69 (85) 137/83 (101) Pulse Ox 94 95 90 O2 Delivery Ventilator Mechanical Ventilator Ventilator Ventilator 06/18/20 06/18/20 06/18/20 06/18/20 14:00 15:00 16:00 16:00 Temp 98.9 98.9 Pulse 91 90 Resp B/P (MAP) 131/79 (96) 128/78 (95) Pulse Ox 94 99 97 O2 Delivery Ventilator Ventilator Mechanical Ventilator Ventilator 06/18/20 16:00 Temp 100.0 100.0 Pulse 86 Resp B/P (MAP) 123/78 (93) Pulse Ox 97 O2 Delivery Ventilator Intake and Output 06/17/20 06/17/20 06/18/20 15:00 23:00 07:00 Intake Total 200 ml 50 ml 1603.9 ml Output Total 1075 ml 825 ml 968 ml Balance -875 ml -775 ml 635.9 ml Justifications for Admission Other Justification NURA MEHTA MD Jun 18, 2020 18:24
[2020-06-18] MEDS: IPRATRPIUM/ALBUTEROL 0.5/2.5MG 3 ML NEBU. NEB SCH (19:30)
[2020-06-18] MEDS: MIDAZOLAM HCL/PF 5 MG/5 ML VIAL. IV PRN (19:57)
[2020-06-18] MEDS: FAMOTIDINE 20 MG/2 ML VIAL IVP SCH (20:56)
[2020-06-18] MEDS: LEVOTHYROXINE 75 MCG TABLET PO SCH (20:56)
[2020-06-18] MEDS: ENOXAPARIN 40 MG/0.4 ML SYRINGE. SQ SCH (20:56)
[2020-06-19] VITALS (25 sets, daily range): BP systolic 97–133; BP diastolic 52–78
[2020-06-19] MEDS: PROPOFOL 100 ML IV PRN ×6 (04:17→22:56)
[2020-06-19] MEDS: PIPERACILLIN/TAZOBACTAM 3.375 GM in IV NORMAL SALINE 50ML 50 ML IV SCH ×3 (05:21→17:54)
[2020-06-19] MEDS: LEVOTHYROXINE 75 MCG TABLET PO SCH (05:21)
--- NOTE | 2020-06-19 07:35 | PDOC ---
[employer] PROGRESS NOTE Date of Service DOS: DATE: 06/19/20 TIME: 07:33 Chief Complaint Chief Complaint Cardiac arrest with resuscitation and probable pneumonia, sternal fracture and pneumothorax secondary to CPR, leukocytosis, electrolyte disturbance, hypokalemia, lactic acidosis, elevated troponin. The patient will be admitted. We will consult Pulmonary Medicine, Infectious Disease, and Cardiology. She is going to the ICU. Vent weaning. Propofol for sedation. Serial enzymes, serial EKGs, IV Zosyn until she is seen by Infectious Disease. Home meds, DVT prophylaxis. Full code. History of Present Illness History of Present Illness The patient is a pleasant 59-year-old female who had COVID-19 two months ago. She had a witnessed cardiac arrest today. The family started CPR, they called the ambulance. She has now been resuscitated and intubated. She is currently being examined in the ER where she is starting to have some posturing. She is not really responding to pain either, but her pupils are reactive. 06/19 Patient seen in ICU. On ventilator, FiO2 40%, PEEP 5. Continue IV Zosyn. Follow neurology and cardiology recommendations. Chest tube management and vent management per pulmonology. 06/18 Patient seen in ICU. Afebrile. Ventilated, FiO2 40%, PEEP 5. Continue antibiotic coverage. Charts and labs reviewed. Discussed with RN, no acute events overnight. COVID-19 negative. Echocardiogram pending. Vitals/I&O Vitals/I&O: Vital Signs Date Time Temp Pulse Resp B/P (MAP) Pulse Ox O2 Delivery O2 Flow Rate FiO2 06/19/20 06:00 76 26 110/63 (79) 99 Ventilator 06/19/20 04:00 98.2 98.2 I & O 06/18/20 06/18/20 06/19/20 15:00 23:00 07:00 Intake Total 300 ml 1379.2 ml Output Total 975 ml 2065 ml 790 ml Balance -975 ml -1765 ml 589.2 ml Physical Exam General: Other (Intubated) Heart: Regular rate Lungs: Crackles Abdomen: Normal bowel sounds Extremities: No clubbing, No cyanosis Skin: No rashes, No breakdown Labs Labs: Laboratory Tests Test 06/18/20 08:30 06/19/20 00:00 O2 Saturation 95 % (92-99) Arterial Blood pH 7.45 (7.35-7.45) Arterial Blood pCO2 at Patient Temp 30 mmHg (35-46) Arterial Blood pO2 at Patient Temp 75 mmHg (75-108) Arterial Blood HCO3 21 mmol/L (21-28) Arterial Blood Base Excess -2 mmol/L (-3-3) FiO2 40 Glucose (Fingerstick) 122 mg/dL (70-99) Assessment and Plan Assessmemt and Plan Problems Medical Problems: (1) Cardiac arrest Status: Acute (2) Fracture of ribs, multiple Status: Acute (3) Hyperglycemia Status: Acute (4) Pneumonia Status: Acute (5) Pneumothorax, right Status: Acute (6) Sternal fracture Status: Acute (7) VF (ventricular fibrillation) Status: Acute Comment Review of Relevant I have reviewed the following items afua (where applicable) has been applied. Medications: Current Medications Medications (Trade) Dose Ordered Sig/Rosalio Route PRN Reason Start Time Stop Time Status Last Admin Dose Admin Potassium Bicarbonate (Potassium Effervescent Tablet) 40 meq 1X ONCE NG 06/18/20 09:45 06/18/20 09:48 DC 06/18/20 10:00 Albuterol/ Ipratropium (Duoneb) 3 ml RTQID NEB 06/18/20 20:00 06/18/20 19:30 Famotidine (Pepcid Vial) 20 mg BID IVP 06/18/20 21:00 06/18/20 20:56 Enoxaparin Sodium (Lovenox 40mg Syringe) 40 mg Q24H SQ 06/18/20 21:00 06/18/20 20:56 Levothyroxine Sodium (Synthroid) 75 mcg DAILY06 PO 06/18/20 21:00 06/19/20 05:21 Fentanyl Citrate 30 ml @ 0 mls/hr CONT PRN IV SEE PROTOCOL 06/18/20 20:15 06/18/20 20:20 Justifications for Admission Other Justification LASHELL SILVER MD Jun 19, 2020 07:35
[2020-06-19] MEDS: IPRATRPIUM/ALBUTEROL 0.5/2.5MG 3 ML NEBU. NEB SCH ×4 (07:39→20:48)
[2020-06-19 07:48] LABS: BASE EXCESS ABG 2 mmol/L (-3-3); HCO3 ABG 24 mmol/L (21-28); PCO2 ABG 30 mmHg (35-46); PO2 ABG 93 mmHg (75-108); SAT O2 ABG 97 % (92-99)
--- NOTE | 2020-06-19 08:01 | PDOC ---
Infectious Disease Note Subjective Subjective pt is intubated on vent ROS ROS no n/v/d//fever Vital Sign Vital Signs Vital Signs Date Time Temp Pulse Resp B/P (MAP) Pulse Ox O2 Delivery O2 Flow Rate FiO2 06/19/20 06:00 76 26 110/63 (79) 99 Ventilator 06/19/20 04:00 98.2 98.2 Physical Exam PHYSICAL EXAM GENERAL: Sedated, orally intubated female, not in distress. VITAL SIGNS: Stable. HEENT: Both pupils are round and reacting. No conjunctival lesion. Mouth cannot be visualized, orally intubated. NECK: Supple. No JVP, no lymphadenopathy. LUNGS: Decreased breath sounds bilaterally. HEART: S1, S2, regular. No gallop or murmur. ABDOMEN: Soft, nontender. No organomegaly. EXTREMITIES: No edema or cyanosis. SKIN: Unremarkable. NEUROLOGICAL: The patient is sedated, orally intubated. Labs Lab Laboratory Tests Test 06/18/20 08:30 06/19/20 00:00 O2 Saturation 95 % (92-99) Arterial Blood pH 7.45 (7.35-7.45) Arterial Blood pCO2 at Patient Temp 30 mmHg (35-46) Arterial Blood pO2 at Patient Temp 75 mmHg (75-108) Arterial Blood HCO3 21 mmol/L (21-28) Arterial Blood Base Excess -2 mmol/L (-3-3) FiO2 40 Glucose (Fingerstick) 122 mg/dL (70-99) Micro Microbiology 06/17/20 Blood Culture - Preliminary, Resulted NO GROWTH AFTER 1 DAY Objective Assessment IMPRESSION: 1. Cardiopulmonary arrest at home. 2. Leukocytosis, likely reactive. 3. Lactic acidosis from #1. 4. Respiratory failure. suspected aspiration 5. Suspected anoxic brain injury. 6. Hypertension. 7. Pneumothorax. 8. Rib fracture and sternal fracture. Plan Plan of Care covid neg culture neg cont antibiotics cont supportive care d/w Dr Olivera d/w [facility] POPPY RENAE MD Jun 19, 2020 08:01
[2020-06-19] MEDS: FAMOTIDINE 20 MG/2 ML VIAL IVP SCH ×2 (08:12→21:09)
--- NOTE | 2020-06-19 09:11 | PDOC ---
PULMONARY PROGRESS NOTES DATE: 06/19/20 TIME: 09:07 Subjective S/P cardiac arrest 06/17---PEA / V-fib remains on vent support did not tolerate off sedation, very restless but not following commands Vitals Vital Signs Date Time Temp Pulse Resp B/P (MAP) Pulse Ox O2 Delivery O2 Flow Rate FiO2 06/19/20 06:00 76 26 110/63 (79) 99 Ventilator 06/19/20 04:00 98.2 98.2 Comments intubated Lungs: Other (decrease bs) Cardiovascular: S1 Abdomen: Soft Extremities: No Edema Skin: Warm Labs Laboratory Tests Test 06/17/20 10:00 06/17/20 11:47 06/17/20 14:10 06/17/20 23:47 Troponin I Quantitative 0.192 ng/mL (0.000-0.055) 0.348 ng/mL (0.000-0.055) Lactic Acid Level 1.3 mmol/L (0.4-2.0) O2 Saturation 99 % (92-99) Arterial Blood pH 7.41 (7.35-7.45) Arterial Blood pCO2 at Patient Temp 29 mmHg (35-46) Arterial Blood pO2 at Patient Temp 277 mmHg (75-108) Arterial Blood HCO3 18 mmol/L (21-28) Arterial Blood Base Excess -5 mmol/L (-3-3) FiO2 80% Glucose (Fingerstick) 136 mg/dL (70-99) Test 06/18/20 05:40 06/18/20 08:30 06/19/20 00:00 Sodium Level 137 mmol/L (136-145) Potassium Level 3.4 mmol/L (3.5-5.1) Chloride Level 104 mmol/L (98-107) Carbon Dioxide Level 23 mmol/L (21-32) Anion Gap 10 (6-14) Blood Urea Nitrogen 7 mg/dL (7-20) Creatinine 0.6 mg/dL (0.6-1.0) Estimated GFR (Cockcroft-Gault) 103.0 Glucose Level 110 mg/dL (70-99) Calcium Level 8.0 mg/dL (8.5-10.1) Phosphorus Level 2.6 mg/dL (2.6-4.7) Magnesium Level 2.0 mg/dL (1.8-2.4) O2 Saturation 95 % (92-99) Arterial Blood pH 7.45 (7.35-7.45) Arterial Blood pCO2 at Patient Temp 30 mmHg (35-46) Arterial Blood pO2 at Patient Temp 75 mmHg (75-108) Arterial Blood HCO3 21 mmol/L (21-28) Arterial Blood Base Excess -2 mmol/L (-3-3) FiO2 40 Glucose (Fingerstick) 122 mg/dL (70-99) Laboratory Tests Test 06/19/20 00:00 Glucose (Fingerstick) 122 mg/dL (70-99) Medications Active Scripts Medications Dose Route/Sig Max Daily Dose Days Date Category Acetaminophen-Diphenhyd 500-25 (Acetaminophen/Diphenhydramine) 1 Each Tablet 1 Each PO HS PRN 06/18/20 Reported Naproxen 500 Mg Tablet 1 Tab PO BID PRN 30 06/18/20 Reported Tramadol Hcl 50 Mg Tablet 50 Mg PO Q4HRS 06/18/20 Reported Levothyroxine Sodium 75 Mcg Tablet 1 Tab PO DAILY 06/18/20 Reported Adderall 20 Mg Tablet (Dextroamphetamine/Amphetamine) 20 Mg Tablet 1 Tab PO DAILY MDD 1 Tablet(s) 5 06/18/20 Reported Prozac (Fluoxetine Hcl) 20 Mg Capsule 1 Cap PO DAILYWBKFT 06/18/20 Reported Comments CXR IMPRESSION: 1. Right basilar pleural drainage catheter and tiny pneumothorax. 2. Left perihilar atelectasis or infiltrate. Impression . IMPRESSION: 1. Acute respiratory failure secondary to [id number] cardiopulmonary arrest.suspect anoxic encephalopathy 2. Orb-qj-ucwbabjh ventricular fibrillation and asystole leading to anoxic brain injury. 3. Anoxic encephalopathy. 4. COVID neg 5. Morbid obesity. 6. Leukocytosis. 7. Lactic acidosis secondary to [id number]-[id number] cardiac arrest. 8. Abnormal x-ray revealing bibasilar atelectasis, infiltrates. 9. Pneumothorax secondary to CPR.resolved on cxr, no air leak 10. Sternal sternal fracture secondary to CPR. 11. Pneumonia positive, gram-negative, gram-positive. Plan . PLAN: continue current support with assist control ventilation, Fi02 40% did not tolerate off sedation, very restless but not following commands Follow CXR/ABG-- no changes Continue Chest tube to suction, no leak on exam Follow ID recs for ABX on zosyn Follow neurology recs Follow Cardiology recs DVT/GI PPX D/W RN and RT Critical Care time [id number] Poor prognosis 2/2 anoxic injury d/w son / / Neurology in detail ANGELA MORENO MD Jun 19, 2020 09:11
--- NOTE | 2020-06-19 09:42 | PDOC ---
PROGRESS NOTES Date of Service DATE: 06/19/20 TIME: 09:40 Assessment Problems Medical Problems: (1) Cardiac arrest Status: Acute (2) Fracture of ribs, multiple Status: Acute (3) Hyperglycemia Status: Acute (4) Pneumonia Status: Acute (5) Pneumothorax, right Status: Acute (6) Sternal fracture Status: Acute (7) VF (ventricular fibrillation) Status: Acute Anoxic encephalopathy, ventricular fibrillation and asystole Negative for Covid Encouraging that she is restless when off sedation Plan Try to avoid sedation Continue current supportive care No evidence that she had a stroke that requires further investigation, note that she already had head CT and CT angiogram. Fully discussed with the family EEG will not be helpful Subjective None Objective Vital Signs Date Time Temp Pulse Resp B/P (MAP) Pulse Ox O2 Delivery O2 Flow Rate FiO2 06/19/20 07:35 99 Ventilator 06/19/20 06:00 76 26 110/63 (79) 06/19/20 04:00 98.2 98.2 Intake and Output 06/19/20 07:00 Intake Total 1679.2 ml Output Total 3830 ml Balance -2150.8 ml Intake Oral 0 ml IV Total 444.2 ml Tube Feeding 860 ml Other 375 ml Output Urine Total 3760 ml Chest Tube Drainage Total 70 ml PHYSICAL EXAM Sedated on ventilator PERRL. EOMI. CN: no focal findings. Muscle tone: normal. Muscle strength: No response to pain DTR: 1+ Plantar reflex: Silent Gait: not examined. Sensory exam: Not cooperative Cerebellar: Not cooperative Review of Relevant I have reviewed the following items afua (where applicable) has been applied. Labs Laboratory Tests Test 06/17/20 10:00 06/17/20 11:47 06/17/20 14:10 06/17/20 23:47 Troponin I Quantitative 0.192 ng/mL (0.000-0.055) 0.348 ng/mL (0.000-0.055) Lactic Acid Level 1.3 mmol/L (0.4-2.0) O2 Saturation 99 % (92-99) Arterial Blood pH 7.41 (7.35-7.45) Arterial Blood pCO2 at Patient Temp 29 mmHg (35-46) Arterial Blood pO2 at Patient Temp 277 mmHg (75-108) Arterial Blood HCO3 18 mmol/L (21-28) Arterial Blood Base Excess -5 mmol/L (-3-3) FiO2 80% Glucose (Fingerstick) 136 mg/dL (70-99) Test 06/18/20 05:40 06/18/20 08:30 06/19/20 00:00 06/19/20 07:30 Sodium Level 137 mmol/L (136-145) Potassium Level 3.4 mmol/L (3.5-5.1) Chloride Level 104 mmol/L (98-107) Carbon Dioxide Level 23 mmol/L (21-32) Anion Gap 10 (6-14) Blood Urea Nitrogen 7 mg/dL (7-20) Creatinine 0.6 mg/dL (0.6-1.0) Estimated GFR (Cockcroft-Gault) 103.0 Glucose Level 110 mg/dL (70-99) Calcium Level 8.0 mg/dL (8.5-10.1) Phosphorus Level 2.6 mg/dL (2.6-4.7) Magnesium Level 2.0 mg/dL (1.8-2.4) O2 Saturation 95 % (92-99) 97 % (92-99) Arterial Blood pH 7.45 (7.35-7.45) 7.53 (7.35-7.45) Arterial Blood pCO2 at Patient Temp 30 mmHg (35-46) 30 mmHg (35-46) Arterial Blood pO2 at Patient Temp 75 mmHg (75-108) 93 mmHg (75-108) Arterial Blood HCO3 21 mmol/L (21-28) 24 mmol/L (21-28) Arterial Blood Base Excess -2 mmol/L (-3-3) 2 mmol/L (-3-3) FiO2 40 40/vent Glucose (Fingerstick) 122 mg/dL (70-99) Laboratory Tests Test 06/19/20 00:00 06/19/20 07:30 Glucose (Fingerstick) 122 mg/dL (70-99) O2 Saturation 97 % (92-99) Arterial Blood pH 7.53 (7.35-7.45) Arterial Blood pCO2 at Patient Temp 30 mmHg (35-46) Arterial Blood pO2 at Patient Temp 93 mmHg (75-108) Arterial Blood HCO3 24 mmol/L (21-28) Arterial Blood Base Excess 2 mmol/L (-3-3) FiO2 40/vent Microbiology 06/17/20 Blood Culture - Preliminary, Resulted NO GROWTH AFTER 1 DAY Medications Current Medications Amiodarone HCl 150 mg/Dextrose 103 ml @ 618 mls/hr 1X ONCE IV Last administered on 06/17/20at 07:00; Start 06/17/20 at 07:00; Stop 06/17/20 at 07:09; Status DC Amiodarone HCl 450 mg/Dextrose 259 ml @ 33 mls/hr 1X ONCE IV ; Start 06/17/20 at 07:00; Stop 06/17/20 at 14:50; Status DC Sodium Chloride 1,000 ml @ 1,000 mls/hr 1X ONCE IV Last administered on 06/17/20at 08:11; Start 06/17/20 at 07:15; Stop 06/17/20 at 08:14; Status DC Midazolam HCl 100 ml @ 0 mls/hr 1X ONCE IV ; Start 06/17/20 at 07:15; Stop 06/17/20 at 07:16; Status DC Midazolam HCl (Versed) 5 mg STK-MED ONCE .ROUTE ; Start 06/17/20 at 07:17; Stop 06/17/20 at 07:17; Status DC Iohexol (Omnipaque 300 Mg/ml) 75 ml 1X ONCE IV Last administered on 06/17/20at 08:17; Start 06/17/20 at 08:15; Stop 06/17/20 at 08:16; Status DC Iohexol (Omnipaque 350 Mg/ml) 100 ml 1X ONCE IV Last administered on 06/17/20at 08:17; Start 06/17/20 at 08:15; Stop 06/17/20 at 08:16; Status DC Info (CONTRAST GIVEN -- Rx MONITORING) 1 each PRN DAILY PRN MC SEE COMMENTS; Start 06/17/20 at 08:15; Stop 06/19/20 at 08:14; Status DC Sodium Chloride 1,000 ml @ 1,000 mls/hr 1X ONCE IV Last administered on 06/17/20at 08:25; Start 06/17/20 at 08:15; Stop 06/17/20 at 09:14; Status DC Potassium Chloride/Water 100 ml @ 50 mls/hr 1X ONCE IV Last administered on 06/17/20at 10:16; Start 06/17/20 at 09:00; Stop 06/17/20 at 10:59; Status DC Piperacillin Sod/ Tazobactam Sod (Zosyn Per Pharmacy) 1 each PRN DAILY PRN MC SEE COMMENTS; Start 06/17/20 at 08:45 Piperacillin Sod/ Tazobactam Sod 4.5 gm/Sodium Chloride 100 ml @ 200 mls/hr 1X ONCE IV Last administered on 06/17/20at 10:15; Start 06/17/20 at 08:45; Stop 06/17/20 at 09:14; Status DC Sodium Chloride 1,000 ml @ 125 mls/hr Q8H IV Last administered on 06/17/20at 23:39; Start 06/17/20 at 09:00; Stop 06/18/20 at 08:59; Status DC Propofol (Diprivan) 200 mg 1X ONCE IV Last administered on 06/17/20at 09:00; Start 06/17/20 at 09:00; Stop 06/17/20 at 09:01; Status DC Propofol 100 ml @ As Directed STK-MED ONCE IV ; Start 06/17/20 at 09:05; Stop 06/17/20 at 09:05; Status DC Lidocaine HCl (Lidocaine 1% 20ml Vial) 20 ml 1X ONCE INJ Last administered on 06/17/20at 09:15; Start 06/17/20 at 09:15; Stop 06/17/20 at 09:20; Status DC Lidocaine HCl (Xylocaine-Mpf 1% 5ml Vial) 5 ml STK-MED ONCE .ROUTE ; Start 06/17/20 at 09:26; Stop 06/17/20 at 09:26; Status DC Sodium Chloride 1,000 ml @ 1,000 mls/hr 1X ONCE IV Last administered on 06/17/20at 10:15; Start 06/17/20 at 10:15; Stop 06/17/20 at 11:14; Status DC Propofol 100 ml @ 3.819 mls/ hr CONT PRN IV PER PROTOCOL Last administered on 06/19/20at 07:45; Start 06/17/20 at 10:45 Fentanyl Citrate (Fentanyl 2ml Vial) 100 mcg 1X ONCE IV ; Start 06/17/20 at 12:00; Stop 06/17/20 at 12:39; Status DC Midazolam HCl (Versed) 2 mg 1X ONCE IV ; Start 06/17/20 at 12:00; Stop 06/17/20 at 12:39; Status DC Magnesium Sulfate/ Dextrose 100 ml @ 100 mls/hr 1X ONCE IV Last administered on 06/17/20at 12:22; Start 06/17/20 at 12:00; Stop 06/17/20 at 12:39; Status DC Buspirone HCl (Buspar) 30 mg Q8H NG Last administered on 06/17/20at 12:31; Start 06/17/20 at 12:00; Stop 06/17/20 at 12:39; Status DC Glycerin/ Hypromellose/ Polyethylene (Artificial Tears) 1 drop Q6HRS OU ; Start 06/17/20 at 12:00; Stop 06/17/20 at 12:39; Status DC Glycerin/ Hypromellose/ Polyethylene (Artificial Tears) 1 drop PRN Q15MIN PRN OU DRY EYE; Start 06/17/20 at 12:00; Stop 06/17/20 at 12:39; Status DC Heparin Sodium (Porcine) (Heparin Sodium) 5,000 unit BID SQ ; Start 06/17/20 at 21:00; Stop 06/17/20 at 12:39; Status DC Pantoprazole Sodium (PROTONIX VIAL for IV PUSH) 40 mg DAILY IVP ; Start 06/18/20 at 09:00; Stop 06/17/20 at 12:39; Status DC Fentanyl Citrate 30 ml @ 0 mls/hr CONT PRN IV PER PROTOCOL.; Start 06/17/20 at 12:00; Stop 06/17/20 at 12:39; Status DC Propofol 100 ml @ 0 mls/hr CONT PRN IV PER PROTOCOL.; Start 06/17/20 at 12:00; Stop 06/17/20 at 12:39; Status DC Midazolam HCl 100 ml @ 0 mls/hr CONT PRN IV PER PROTOCOL; Start 06/17/20 at 12:00; Stop 06/17/20 at 12:39; Status DC Vecuronium [place] (Norcuron Bolus) 10 mg PRN Q1HR PRN IV SHIVERING; Start 06/17/20 at 12:00; Stop 06/17/20 at 12:39; Status DC Piperacillin Sod/ Tazobactam Sod 4.5 gm/Sodium Chloride 100 ml @ 200 mls/hr 1X ONCE IV ; Start 06/17/20 at 12:15; Stop 06/17/20 at 12:44; Status Cancel Midazolam HCl (Versed) 5 mg Q1HR PRN IV SEDATION Last administered on 06/18/20at 19:57; Start 06/17/20 at 12:45 Fentanyl Citrate (Fentanyl 2ml Vial) 100 mcg Q1HR IVP Last administered on 06/17/20at 18:55; Start 06/17/20 at 13:00; Stop 06/17/20 at 23:41; Status DC Piperacillin Sod/ Tazobactam Sod 3.375 gm/Sodium Chloride 50 ml @ 100 mls/hr Q6H IV Last administered on 06/19/20at 05:21; Start 06/17/20 at 16:00 Potassium Bicarbonate (Potassium Effervescent Tablet) 40 meq 1X ONCE NG Last administered on 06/18/20at 10:00; Start 06/18/20 at 09:45; Stop 06/18/20 at 09:48; Status DC Albuterol/ Ipratropium (Duoneb) 3 ml RTQID NEB Last administered on 06/19/20at 07:39; Start 06/18/20 at 20:00 Famotidine (Pepcid Vial) 20 mg BID IVP Last administered on 06/19/20at 08:12; Start 06/18/20 at 21:00 Enoxaparin Sodium (Lovenox 40mg Syringe) 40 mg Q24H SQ Last administered on 06/18/20at 20:56; Start 06/18/20 at 21:00 Levothyroxine Sodium (Synthroid) 75 mcg DAILY06 PO Last administered on 06/19/20at 05:21; Start 06/18/20 at 21:00 Fentanyl Citrate 30 ml @ 0 mls/hr CONT PRN IV SEE PROTOCOL Last administered on 06/19/20at 07:45; Start 06/18/20 at 20:15 Active Scripts Active Reported Acetaminophen-Diphenhyd 500-25 (Acetaminophen/Diphenhydramine) 1 Each Tablet 1 Each PO HS PRN Naproxen 500 Mg Tablet 1 Tab PO BID PRN 30 Days Tramadol Hcl 50 Mg Tablet 50 Mg PO Q4HRS Levothyroxine Sodium 75 Mcg Tablet 1 Tab PO DAILY Adderall 20 Mg Tablet (Dextroamphetamine/Amphetamine) 20 Mg Tablet 1 Tab PO DAILY MDD 1 Tablet(s) 5 Days Prozac (Fluoxetine Hcl) 20 Mg Capsule 1 Cap PO DAILYWBKFT Vitals/I & O Vital Sign - Last 24 Hours 06/18/20 06/18/20 06/18/20 06/18/20 10:00 11:00 12:00 12:00 Temp 99.5 99.5 Pulse 88 90 94 Resp B/P (MAP) 133/79 (97) 144/78 (100) 117/69 (85) Pulse Ox 95 90 94 O2 Delivery Ventilator Ventilator Ventilator Mechanical Ventilator 06/18/20 06/18/20 06/18/20 06/18/20 12:30 13:00 14:00 15:00 Temp 98.9 98.9 Pulse 90 91 90 Resp B/P (MAP) 137/83 (101) 131/79 (96) 128/78 (95) Pulse Ox 95 90 94 99 O2 Delivery Ventilator Ventilator Ventilator Ventilator 06/18/20 06/18/20 06/18/20 06/18/20 16:00 16:00 16:00 18:00 Temp 100.0 100.0 Pulse 86 96 B/P (MAP) 123/78 (93) 138/82 (100) Pulse Ox 97 97 100 O2 Delivery Mechanical Ventilator Ventilator Ventilator Ventilator 06/18/20 06/18/20 06/18/20 06/18/20 19:00 19:30 20:00 20:00 Temp 98.9 98.9 Pulse 107 116 Resp 33 B/P (MAP) 140/82 (101) 110/67 (81) Pulse Ox 98 97 95 O2 Delivery Ventilator Ventilator Mechanical Ventilator Ventilator 06/18/20 06/18/20 06/18/20 06/19/20 21:00 22:00 23:00 00:00 Pulse 82 82 84 Resp B/P (MAP) 119/72 (88) 120/76 (91) 102/58 (73) Pulse Ox 99 99 98 O2 Delivery Ventilator Ventilator Ventilator Mechanical Ventilator 06/19/20 06/19/20 06/19/20 06/19/20 00:00 00:07 01:00 02:00 Temp 98.6 98.6 Pulse 81 78 78 Resp B/P (MAP) 113/76 (88) 116/73 (87) 123/78 (93) Pulse Ox 100 99 100 100 O2 Delivery Ventilator Ventilator Ventilator Ventilator 06/19/20 06/19/20 06/19/20 06/19/20 03:00 04:00 04:00 04:55 Temp 98.2 98.2 Pulse 77 76 Resp 26 26 B/P (MAP) 120/73 (89) 123/74 (90) Pulse Ox 100 99 100 O2 Delivery Ventilator Mechanical Ventilator Ventilator Ventilator 06/19/20 06/19/20 06/19/20 05:00 06:00 07:35 Pulse 75 76 Resp 26 26 B/P (MAP) 112/69 (83) 110/63 (79) Pulse Ox 99 99 99 O2 Delivery Ventilator Ventilator Ventilator Intake and Output 06/18/20 06/18/20 06/19/20 15:00 23:00 07:00 Intake Total 300 ml 1379.2 ml Output Total 975 ml 2065 ml 790 ml Balance -975 ml -1765 ml 589.2 ml Justicifation of Admission Dx: Justifications for Admission: Justification of Admission Dx: N/A JEFF FLORES MD Jun 19, 2020 09:42
--- NOTE | 2020-06-19 10:12 | NUR ---
Sedation turned off at [address]a. [address]. Tang here as well to assess pt. Pt became alert around 0830. Pt is thrashing in bed, face is very red, and she is tachypneic. Eyes are rolled up and deviated to the right. Pt is unable to follow any commands. Dr. Olivera at the bedside to evaluate pt and instructed to turn sedation back on. and son at the bedside for the duration of sedation vacation.
--- NOTE | 2020-06-19 12:55 | PDOC ---
CARDIO Progress Notes Date and Time Date of Service 06/19/2020 Time of Evaluation 1240 Subjective Subjective: Other (intubated, vent) Vitals Vitals Vital Signs Date Time Temp Pulse Resp B/P (MAP) Pulse Ox O2 Delivery O2 Flow Rate FiO2 06/19/20 12:08 96 Ventilator 06/19/20 12:00 88 18 114/61 (78) 06/19/20 11:00 98.5 98.5 Weight Weight [ ] Input and Output Intake and Output Intake and Output 06/19/20 07:00 Intake Total 1679.2 ml Output Total 3830 ml Balance -2150.8 ml Intake Oral 0 ml IV Total 444.2 ml Tube Feeding 860 ml Other 375 ml Output Urine Total 3760 ml Chest Tube Drainage Total 70 ml Laboratory Labs Laboratory Tests Test 06/19/20 00:00 06/19/20 07:30 06/19/20 11:23 Glucose (Fingerstick) 122 mg/dL (70-99) 121 mg/dL (70-99) O2 Saturation 97 % (92-99) Arterial Blood pH 7.53 (7.35-7.45) Arterial Blood pCO2 at Patient Temp 30 mmHg (35-46) Arterial Blood pO2 at Patient Temp 93 mmHg (75-108) Arterial Blood HCO3 24 mmol/L (21-28) Arterial Blood Base Excess 2 mmol/L (-3-3) FiO2 40/vent Microbiology Micro Microbiology 06/17/20 Blood Culture - Preliminary, Resulted NO GROWTH AFTER 2 DAYS Physical Exam HEENT: Neck Supple W Full Motion Chest: Symmetric LUNGS: Other (intubated, vent) Heart: RRR (SR with PVCs) Abdomen: Other (soft) Extremities: No Edema Neurology: other (sedated) Assessment Assessment 1. OOH cardiopulmonary arrest: initially with VT, shock, then asystole. at least 2 pulseless events, unclear duration to ROSC but significantly prolonged per staff with spouse giving about 10 min CPR himself. Received amiodarone. She does not have any known hx of CAD/arrhythmias 2. Acute respiratory failure with possible pneumonia: negative for PE 3. Severe cardiomyopathy: awaiting TTE full report 4. Right pneumothorax: due to chest compression 5. ADHD: on adderral but negative on tox screen 6. hypothyroidism: on replacement 7. Marijuana use: + UDS 8. Anoxic encephalopathy: neurology following Recommendations 1. Drip given in ED. Amiodarone via OG pending LFTs. Start on coreg. Replace K 2. ASA and statin 3. Poor prognosis with significantly prolonged downtime. Will consider for further ischemic eval if there is meaningful neurological recovery. 4. Supportive care 1. Out of hospital cardiopulmonary arrest. Apparently prolonged resuscitation time with episodes of pulseless VT as well as pulseless electrical activity. Patient remains sinus rhythm and intubated. Troponin has minimally increased. Continuing treatments as per protocols. As noted above the patient has no history of coronary disease, congestive heart failure or cardiac arrhythmias. 2. Acute respiratory failure. Intubated. Pulmonary following. We will check an echocardiogram once Covid testing is available. Of note the patient did have an elevated D-dimer but imaging of her chest shows no PE. 3. Small right pneumothorax. Treatment as above. 4. Possible pneumonia. Covered with IV antibiotics. 5. History of hypothyroidism. Justicifation of Admission Dx: Justifications for Admission: Justification of Admission Dx: N/A JESSE ANTOINE APRN Jun 19, 2020 12:55
[2020-06-19 13:41] LABS: CHOLESTEROL/HDL RATIO 2.9
[2020-06-19] MEDS ORDERED: POTASSIUM CHLORIDE 20MEQ 100 ML IV ONE (15:30)
[2020-06-19] MEDS ORDERED: ASPIRIN CHEWABLE 81 MG TABLET. PO ONE (15:30)
--- NOTE | 2020-06-19 15:53 | NUR ---
SS following up with discharge planning. SS reviewed pt chart and discussed with pt RN. Pt is currently on the vent at 40%. COVID19 negative. Pt on IV Zosyn and tube feedings. Self pay. Not stable. SS will continue to follow for discharge planning.
[2020-06-19] MEDS: CARVEDILOL 3.125 MG TABLET. PO SCH (15:57)
[2020-06-19 16:30] LABS: CALCIUM 7.9 mg/dL (8.5-10.1); CREATININE 0.7 mg/dL (0.6-1.0); GFR 86.2; POTASSIUM 3.8 mmol/L (3.5-5.1)
[2020-06-19 16:35] LABS: ALBUMIN 2.6 g/dL (3.4-5.0); ALBUMIN/GLOBULIN RATIO 0.8 (1.0-1.7); TOTAL BILIRUBIN 0.5 mg/dL (0.2-1.0)
--- NOTE | 2020-06-19 17:04 | CARD ---
MR#: [id number] Date of Study: 06/19/2020 Ordering Physician: JESSE ANTOINE, Referring Physician: JESSE ANTOINE Tech: Daija Verduzco [facility] APPROVED REPORT EXAM: Two-dimensional and M-mode echocardiogram with Doppler and color Doppler. Other Information Quality : FairHR: 89bpm Rhythm : NSR INDICATION RISK FACTORS Obesity 2D DIMENSIONS Left Atrium(2D)3.6 (1.6-4.0cm)IVSd0.9 (0.7-1.1cm) Aortic Root(2D)2.9 (2.0-3.7cm)LVDd6.2 (3.9-5.9cm) LVOT Diameter2.5 (1.8-2.4cm)PWd1.0 (0.7-1.1cm) LVDs5.4 (2.5-4.0cm)FS (%) 12.3 % SV49.8 ml Aortic Valve AoV Peak Topher.136.4cm/John Peak GR.7.4mmHg AI P 1/2 [id number] TDI Lateral E' P. V5.60cm/sMedial E' P. V5.99cm/s Tricuspid Valve TR P. [id number]/sTR Peak Gr.18mmHg LEFT VENTRICLE The Left Ventricle is mildly dilated. There is normal left ventricular wall thickness. The LV ejectio n fraction is severely impaired. Estimated ejection fraction is 25% There is global hypokinesis of t he left ventricle. Tissue Doppler imaging reveals mild left ventricular diastolic dysfunction. RIGHT VENTRICLE The right ventricle is normal size. There is normal right ventricular wall thickness. The right ventr icular systolic function is normal. ATRIA The left atrium size is normal. The right atrium size is normal. The interatrial septum is intact wit h no evidence for an atrial septal defect or patent foramen ovale as noted on 2-D or Doppler imaging. AORTIC VALVE The aortic valve is normal in structure and function. Doppler and Color Flow revealed no significant aortic regurgitation. There is no significant aortic valvular stenosis. MITRAL VALVE The mitral valve is normal in structure and function. There is no evidence of mitral valve prolapse. There is no mitral valve stenosis. Doppler and Color-flow revealed mild mitral regurgitation. TRICUSPID VALVE The tricuspid valve is normal in structure and function. Doppler and Color Flow revealed trace tricus pid regurgitation. Unable to calculate PAP. PULMONIC VALVE The pulmonary valve is normal in structure and function. Doppler and Color Flow revealed no pulmonic valvular regurgitation. GREAT VESSELS The aortic root is normal in size. The ascending aorta is normal in size. The IVC is dilated and rebecca apses <50% with inspiration. PERICARDIAL EFFUSION There is no evidence of significant pericardial effusion. Critical Notification Critical Value: No <Conclusion> The Left Ventricle is mildly dilated. The LV ejection fraction is severely impaired. Estimated ejection fraction is 25% There is global hypokinesis of the left ventricle. Doppler and Color Flow revealed no significant aortic regurgitation. There is no significant aortic valvular stenosis. Doppler and Color-flow revealed mild mitral regurgitation. Doppler and Color Flow revealed trace tricuspid regurgitation. Signed by : Brian Pierce MD Electronically Approved : 06/19/2020 17:04:00
[2020-06-19] MEDS: ATORVASTATIN CALCIUM 20 MG TABLET PO SCH (21:10)
[2020-06-19] MEDS: ENOXAPARIN 40 MG/0.4 ML SYRINGE. SQ SCH (21:10)
[2020-06-20] VITALS (24 sets, daily range): BP systolic 95–153; BP diastolic 56–89
[2020-06-20] MEDS: PIPERACILLIN/TAZOBACTAM 3.375 GM in IV NORMAL SALINE 50ML 50 ML IV SCH ×4 (00:01→17:08)
[2020-06-20] MEDS: PROPOFOL 100 ML IV PRN ×5 (02:32→21:34)
[2020-06-20] MEDS: LEVOTHYROXINE 75 MCG TABLET PO SCH (05:38)
[2020-06-20 06:20] LABS: HEMOGLOBIN 9.9 g/dL (12.0-15.5); RED BLOOD COUNT 3.25 x10^6/uL (3.50-5.40); RED CELL DISTRIBUTION WIDTH 13.3 % (11.5-14.5); WHITE BLOOD COUNT 8.4 x10^3/uL (4.0-11.0)
[2020-06-20 06:30] LABS: CALCIUM 7.7 mg/dL (8.5-10.1); CREATININE 0.4 mg/dL (0.6-1.0); GFR 164.5; POTASSIUM 3.6 mmol/L (3.5-5.1)
--- NOTE | 2020-06-20 07:07 | RAD ---
XR CHEST 1V 06/20/2020 4:45 AM INDICATION: Intubated COMPARISON: 06/17/2020 TECHNIQUE: Portable frontal view of the chest is provided. FINDINGS: The cardiomediastinal silhouette is similar in appearance. Endotracheal tube, right IJ central venous catheter and nasogastric tube are in similar position. There is increased consolidative change in the left retrocardiac region which may reflect increase in small left pleural effusion with adjacent compressive atelectasis versus infiltrate. Mild pulmonary vascular congestion appears similar. No pneumothorax. No suspicious osseous abnormality. IMPRESSION: Increased consolidative changes the left lung base may represent degree of small pleural effusion wit h adjacent compressive atelectasis versus infiltrate. Electronically signed by: Norma Alvarez MD (06/20/2020 7:05 AM) [id number]
--- NOTE | 2020-06-20 07:59 | PDOC ---
Infectious Disease Note Subjective Subjective pt is intubated on vent ROS ROS no n/v/d/ Vital Sign Vital Signs Vital Signs Date Time Temp Pulse Resp B/P (MAP) Pulse Ox O2 Delivery O2 Flow Rate FiO2 06/20/20 07:54 18 40 Ventilator 06/20/20 07:00 74 108/59 (75) 06/20/20 04:00 98.6 98.6 Physical Exam PHYSICAL EXAM GENERAL: Sedated, orally intubated female, not in distress. VITAL SIGNS: Stable. HEENT: Both pupils are round and reacting. No conjunctival lesion. Mouth cannot be visualized, orally intubated. NECK: Supple. No JVP, no lymphadenopathy. LUNGS: Decreased breath sounds bilaterally. HEART: S1, S2, regular. No gallop or murmur. ABDOMEN: Soft, nontender. No organomegaly. EXTREMITIES: No edema or cyanosis. SKIN: Unremarkable. NEUROLOGICAL: The patient is sedated, orally intubated. Labs Lab Laboratory Tests Test 06/19/20 11:23 06/19/20 16:05 06/20/20 00:03 06/20/20 06:00 Glucose (Fingerstick) 121 mg/dL (70-99) 119 mg/dL (70-99) 128 mg/dL (70-99) Prothrombin Time 14.0 SEC (11.7-14.0) Prothromb Time International Ratio 1.1 (0.8-1.1) Sodium Level 139 mmol/L (136-145) 137 mmol/L (136-145) Potassium Level 3.8 mmol/L (3.5-5.1) 3.6 mmol/L (3.5-5.1) Chloride Level 106 mmol/L (98-107) 105 mmol/L (98-107) Carbon Dioxide Level 28 mmol/L (21-32) 27 mmol/L (21-32) Anion Gap 5 (6-14) 5 (6-14) Blood Urea Nitrogen 9 mg/dL (7-20) 12 mg/dL (7-20) Creatinine 0.7 mg/dL (0.6-1.0) 0.4 mg/dL (0.6-1.0) Estimated GFR (Cockcroft-Gault) 86.2 164.5 BUN/Creatinine Ratio 13 (6-20) Glucose Level 120 mg/dL (70-99) 129 mg/dL (70-99) Calcium Level 7.9 mg/dL (8.5-10.1) 7.7 mg/dL (8.5-10.1) Total Bilirubin 0.5 mg/dL (0.2-1.0) Aspartate Amino Transf (AST/SGOT) 49 U/L (15-37) Alanine Aminotransferase (ALT/SGPT) 90 U/L (14-59) Alkaline Phosphatase 49 U/L (46-116) Total Protein 6.0 g/dL (6.4-8.2) Albumin 2.6 g/dL (3.4-5.0) Albumin/Globulin Ratio 0.8 (1.0-1.7) White Blood Count 8.4 x10^3/uL (4.0-11.0) Red Blood Count 3.25 x10^6/uL (3.50-5.40) Hemoglobin 9.9 g/dL (12.0-15.5) Hematocrit 30.0 % (36.0-47.0) Mean Corpuscular Volume 92 fL (79-100) Mean Corpuscular Hemoglobin 30 pg (25-35) Mean Corpuscular Hemoglobin Concent 33 g/dL (31-37) Red Cell Distribution Width 13.3 % (11.5-14.5) Platelet Count 164 x10^3/uL (140-400) Magnesium Level 2.0 mg/dL (1.8-2.4) Test 06/20/20 06:08 Glucose (Fingerstick) 94 mg/dL (70-99) Micro Microbiology 06/17/20 Blood Culture - Preliminary, Resulted NO GROWTH AFTER 1 DAY Objective Assessment IMPRESSION: 1. Cardiopulmonary arrest at home. 2. Leukocytosis, likely reactive. 3. Lactic acidosis from #1. 4. Respiratory failure. suspected aspiration 5. Suspected anoxic brain injury. 6. Hypertension. 7. Pneumothorax. 8. Rib fracture and sternal fracture. Plan Plan of Care covid neg culture neg cont antibiotics cont supportive care d/w Dr Olivera d/w family/ and son OCPOPPY Valdez MD Jun 20, 2020 07:59
--- NOTE | 2020-06-20 08:03 | PDOC ---
[employer] PROGRESS NOTE Date of Service DOS: DATE: 06/20/20 TIME: 08:01 Chief Complaint Chief Complaint Cardiac arrest with resuscitation and probable pneumonia, sternal fracture and pneumothorax secondary to CPR, leukocytosis, electrolyte disturbance, hypokalemia, lactic acidosis, elevated troponin. The patient will be admitted. We will consult Pulmonary Medicine, Infectious Disease, and Cardiology. She is going to the ICU. Vent weaning. Propofol for sedation. Serial enzymes, serial EKGs, IV Zosyn until she is seen by Infectious Disease. Home meds, DVT prophylaxis. Full code. History of Present Illness History of Present Illness The patient is a pleasant 59-year-old female who had COVID-19 two months ago. She had a witnessed cardiac arrest today. The family started CPR, they called the ambulance. She has now been resuscitated and intubated. She is currently being examined in the ER where she is starting to have some posturing. She is not really responding to pain either, but her pupils are reactive. 06/20 Patient seen in ICU. She remains on ventilator, FiO2 40%, PEEP 5. Afebrile. No acute events overnight. Echocardiogram obtained, showing mildly dilated left ventricle with global hypokinesis, estimated ejection fraction 25%. 06/19 Patient seen in ICU. On ventilator, FiO2 40%, PEEP 5. Continue IV Zosyn. Follow neurology and cardiology recommendations. Chest tube management and vent management per pulmonology. 06/18 Patient seen in ICU. Afebrile. Ventilated, FiO2 40%, PEEP 5. Continue antibiotic coverage. Charts and labs reviewed. Discussed with RN, no acute events overnight. COVID-19 negative. Echocardiogram pending. Vitals/I&O Vitals/I&O: Vital Signs Date Time Temp Pulse Resp B/P (MAP) Pulse Ox O2 Delivery O2 Flow Rate FiO2 06/20/20 07:54 18 40 Ventilator 06/20/20 07:00 74 108/59 (75) 06/20/20 04:00 98.6 98.6 I & O 06/19/20 06/19/20 06/20/20 15:00 23:00 07:00 Intake Total 300 ml 1544 ml 1418 ml Output Total 400 ml 465 ml 291 ml Balance -100 ml 1079 ml 1127 ml Physical Exam Physical Exam: GENERAL: Sedated, orally intubated female, not in distress. VITAL SIGNS: Stable. HEENT: Both pupils are round and reacting. No conjunctival lesion. Mouth cannot be visualized, orally intubated. NECK: Supple. No JVP, no lymphadenopathy. LUNGS: Decreased breath sounds bilaterally. HEART: S1, S2, regular. No gallop or murmur. ABDOMEN: Soft, nontender. No organomegaly. EXTREMITIES: No edema or cyanosis. SKIN: Unremarkable. NEUROLOGICAL: The patient is sedated, orally intubated. General: Other (Intubated) Heart: Regular rate Lungs: Other (decrease bs) Abdomen: Normal bowel sounds Extremities: No clubbing, No cyanosis Skin: No rashes, No breakdown Labs Labs: Laboratory Tests Test 06/19/20 11:23 06/19/20 16:05 06/20/20 00:03 06/20/20 06:00 Glucose (Fingerstick) 121 mg/dL (70-99) 119 mg/dL (70-99) 128 mg/dL (70-99) Prothrombin Time 14.0 SEC (11.7-14.0) Prothromb Time International Ratio 1.1 (0.8-1.1) Sodium Level 139 mmol/L (136-145) 137 mmol/L (136-145) Potassium Level 3.8 mmol/L (3.5-5.1) 3.6 mmol/L (3.5-5.1) Chloride Level 106 mmol/L (98-107) 105 mmol/L (98-107) Carbon Dioxide Level 28 mmol/L (21-32) 27 mmol/L (21-32) Anion Gap 5 (6-14) 5 (6-14) Blood Urea Nitrogen 9 mg/dL (7-20) 12 mg/dL (7-20) Creatinine 0.7 mg/dL (0.6-1.0) 0.4 mg/dL (0.6-1.0) Estimated GFR (Cockcroft-Gault) 86.2 164.5 BUN/Creatinine Ratio 13 (6-20) Glucose Level 120 mg/dL (70-99) 129 mg/dL (70-99) Calcium Level 7.9 mg/dL (8.5-10.1) 7.7 mg/dL (8.5-10.1) Total Bilirubin 0.5 mg/dL (0.2-1.0) Aspartate Amino Transf (AST/SGOT) 49 U/L (15-37) Alanine Aminotransferase (ALT/SGPT) 90 U/L (14-59) Alkaline Phosphatase 49 U/L (46-116) Total Protein 6.0 g/dL (6.4-8.2) Albumin 2.6 g/dL (3.4-5.0) Albumin/Globulin Ratio 0.8 (1.0-1.7) White Blood Count 8.4 x10^3/uL (4.0-11.0) Red Blood Count 3.25 x10^6/uL (3.50-5.40) Hemoglobin 9.9 g/dL (12.0-15.5) Hematocrit 30.0 % (36.0-47.0) Mean Corpuscular Volume 92 fL (79-100) Mean Corpuscular Hemoglobin 30 pg (25-35) Mean Corpuscular Hemoglobin Concent 33 g/dL (31-37) Red Cell Distribution Width 13.3 % (11.5-14.5) Platelet Count 164 x10^3/uL (140-400) Magnesium Level 2.0 mg/dL (1.8-2.4) Test 06/20/20 06:08 Glucose (Fingerstick) 94 mg/dL (70-99) Assessment and Plan Assessmemt and Plan Problems Medical Problems: (1) Cardiac arrest Status: Acute (2) Fracture of ribs, multiple Status: Acute (3) Hyperglycemia Status: Acute (4) Pneumonia Status: Acute (5) Pneumothorax, right Status: Acute (6) Sternal fracture Status: Acute (7) VF (ventricular fibrillation) Status: Acute Comment Review of Relevant I have reviewed the following items afua (where applicable) has been applied. Medications: Current Medications Medications (Trade) Dose Ordered Sig/Rosalio Route PRN Reason Start Time Stop Time Status Last Admin Dose Admin Carvedilol (Coreg) 3.125 mg BIDWMEALS PO 06/19/20 17:00 06/19/20 15:57 Atorvastatin Calcium (Lipitor) 20 mg QHS PO 06/19/20 21:00 06/19/20 21:10 Aspirin (Aspirin Chewable) 81 mg 1X ONCE PO 06/19/20 15:30 06/19/20 15:37 DC 06/19/20 15:57 Potassium Chloride/Water 100 ml @ 100 mls/hr 1X ONCE IV 06/19/20 15:30 06/19/20 16:29 DC 06/19/20 15:57 Justifications for Admission Other Justification LASHELL SILVER MD Jun 20, 2020 08:03
[2020-06-20] MEDS: IPRATRPIUM/ALBUTEROL 0.5/2.5MG 3 ML NEBU. NEB SCH ×4 (08:14→20:00)
[2020-06-20 08:16] LABS: BASE EXCESS ABG 1 mmol/L (-3-3); HCO3 ABG 25 mmol/L (21-28); PCO2 ABG 39 mmHg (35-46); PO2 ABG 102 mmHg (75-108); SAT O2 ABG 97 % (92-99)
[2020-06-20 08:24] LABS: FIO2 ABG 40/VENT
[2020-06-20] MEDS: AMIODARONE HCL 200 MG TABLET. PO SCH (08:33)
[2020-06-20] MEDS: CARVEDILOL 3.125 MG TABLET. PO SCH ×2 (08:33→17:07)
[2020-06-20] MEDS: ASPIRIN CHEWABLE 81 MG TABLET. PO SCH (08:33)
[2020-06-20] MEDS: FAMOTIDINE 20 MG/2 ML VIAL IVP SCH ×2 (08:33→20:57)
--- NOTE | 2020-06-20 10:13 | PDOC ---
PROGRESS NOTES Date of Service DATE: 06/20/20 TIME: 10:12 Assessment Problems Medical Problems: (1) Cardiac arrest Status: Acute (2) Fracture of ribs, multiple Status: Acute (3) Hyperglycemia Status: Acute (4) Pneumonia Status: Acute (5) Pneumothorax, right Status: Acute (6) Sternal fracture Status: Acute (7) VF (ventricular fibrillation) Status: Acute Anoxic encephalopathy, ventricular fibrillation and asystole Negative for Covid Encouraging that she is restless when off sedation Plan Continue current supportive care No evidence that she had a stroke that requires further investigation, note that she already had head CT and CT angiogram. Fully discussed with the family EEG will not be helpful Subjective None Objective Vital Signs Date Time Temp Pulse Resp B/P (MAP) Pulse Ox O2 Delivery O2 Flow Rate FiO2 06/20/20 10:00 81 18 124/73 (90) 99 Ventilator 06/20/20 08:00 98.1 98.1 Intake and Output 06/20/20 07:00 Intake Total 3262 ml Output Total 1156 ml Balance 2106 ml IV Total 971 ml Tube Feeding 1666 ml Other 625 ml Output Urine Total 1095 ml Gastric Drainage Total 0 ml Chest Tube Drainage Total 61 ml PHYSICAL EXAM Sedated on ventilator PERRL. EOMI. CN: no focal findings. Muscle tone: normal. Muscle strength: No response to pain DTR: 1+ Plantar reflex: Silent Gait: not examined. Sensory exam: Not cooperative Cerebellar: Not cooperative Review of Relevant I have reviewed the following items afua (where applicable) has been applied. Labs Laboratory Tests Test 06/19/20 00:00 06/19/20 07:30 06/19/20 11:23 06/19/20 16:05 Glucose (Fingerstick) 122 mg/dL (70-99) 121 mg/dL (70-99) O2 Saturation 97 % (92-99) Arterial Blood pH 7.53 (7.35-7.45) Arterial Blood pCO2 at Patient Temp 30 mmHg (35-46) Arterial Blood pO2 at Patient Temp 93 mmHg (75-108) Arterial Blood HCO3 24 mmol/L (21-28) Arterial Blood Base Excess 2 mmol/L (-3-3) FiO2 40/vent Prothrombin Time 14.0 SEC (11.7-14.0) Prothromb Time International Ratio 1.1 (0.8-1.1) Sodium Level 139 mmol/L (136-145) Potassium Level 3.8 mmol/L (3.5-5.1) Chloride Level 106 mmol/L (98-107) Carbon Dioxide Level 28 mmol/L (21-32) Anion Gap 5 (6-14) Blood Urea Nitrogen 9 mg/dL (7-20) Creatinine 0.7 mg/dL (0.6-1.0) Estimated GFR (Cockcroft-Gault) 86.2 BUN/Creatinine Ratio 13 (6-20) Glucose Level 120 mg/dL (70-99) Calcium Level 7.9 mg/dL (8.5-10.1) Total Bilirubin 0.5 mg/dL (0.2-1.0) Aspartate Amino Transf (AST/SGOT) 49 U/L (15-37) Alanine Aminotransferase (ALT/SGPT) 90 U/L (14-59) Alkaline Phosphatase 49 U/L (46-116) Total Protein 6.0 g/dL (6.4-8.2) Albumin 2.6 g/dL (3.4-5.0) Albumin/Globulin Ratio 0.8 (1.0-1.7) Test 06/20/20 00:03 06/20/20 06:00 06/20/20 06:08 06/20/20 08:00 Glucose (Fingerstick) 119 mg/dL (70-99) 128 mg/dL (70-99) 94 mg/dL (70-99) White Blood Count 8.4 x10^3/uL (4.0-11.0) Red Blood Count 3.25 x10^6/uL (3.50-5.40) Hemoglobin 9.9 g/dL (12.0-15.5) Hematocrit 30.0 % (36.0-47.0) Mean Corpuscular Volume 92 fL (79-100) Mean Corpuscular Hemoglobin 30 pg (25-35) Mean Corpuscular Hemoglobin Concent 33 g/dL (31-37) Red Cell Distribution Width 13.3 % (11.5-14.5) Platelet Count 164 x10^3/uL (140-400) Sodium Level 137 mmol/L (136-145) Potassium Level 3.6 mmol/L (3.5-5.1) Chloride Level 105 mmol/L (98-107) Carbon Dioxide Level 27 mmol/L (21-32) Anion Gap 5 (6-14) Blood Urea Nitrogen 12 mg/dL (7-20) Creatinine 0.4 mg/dL (0.6-1.0) Estimated GFR (Cockcroft-Gault) 164.5 Glucose Level 129 mg/dL (70-99) Calcium Level 7.7 mg/dL (8.5-10.1) Magnesium Level 2.0 mg/dL (1.8-2.4) O2 Saturation 97 % (92-99) Arterial Blood pH 7.43 (7.35-7.45) Arterial Blood pCO2 at Patient Temp 39 mmHg (35-46) Arterial Blood pO2 at Patient Temp 102 mmHg (75-108) Arterial Blood HCO3 25 mmol/L (21-28) Arterial Blood Base Excess 1 mmol/L (-3-3) FiO2 40/vent Laboratory Tests Test 06/19/20 11:23 06/19/20 16:05 06/20/20 00:03 06/20/20 06:00 Glucose (Fingerstick) 121 mg/dL (70-99) 119 mg/dL (70-99) 128 mg/dL (70-99) Prothrombin Time 14.0 SEC (11.7-14.0) Prothromb Time International Ratio 1.1 (0.8-1.1) Sodium Level 139 mmol/L (136-145) 137 mmol/L (136-145) Potassium Level 3.8 mmol/L (3.5-5.1) 3.6 mmol/L (3.5-5.1) Chloride Level 106 mmol/L (98-107) 105 mmol/L (98-107) Carbon Dioxide Level 28 mmol/L (21-32) 27 mmol/L (21-32) Anion Gap 5 (6-14) 5 (6-14) Blood Urea Nitrogen 9 mg/dL (7-20) 12 mg/dL (7-20) Creatinine 0.7 mg/dL (0.6-1.0) 0.4 mg/dL (0.6-1.0) Estimated GFR (Cockcroft-Gault) 86.2 164.5 BUN/Creatinine Ratio 13 (6-20) Glucose Level 120 mg/dL (70-99) 129 mg/dL (70-99) Calcium Level 7.9 mg/dL (8.5-10.1) 7.7 mg/dL (8.5-10.1) Total Bilirubin 0.5 mg/dL (0.2-1.0) Aspartate Amino Transf (AST/SGOT) 49 U/L (15-37) Alanine Aminotransferase (ALT/SGPT) 90 U/L (14-59) Alkaline Phosphatase 49 U/L (46-116) Total Protein 6.0 g/dL (6.4-8.2) Albumin 2.6 g/dL (3.4-5.0) Albumin/Globulin Ratio 0.8 (1.0-1.7) White Blood Count 8.4 x10^3/uL (4.0-11.0) Red Blood Count 3.25 x10^6/uL (3.50-5.40) Hemoglobin 9.9 g/dL (12.0-15.5) Hematocrit 30.0 % (36.0-47.0) Mean Corpuscular Volume 92 fL (79-100) Mean Corpuscular Hemoglobin 30 pg (25-35) Mean Corpuscular Hemoglobin Concent 33 g/dL (31-37) Red Cell Distribution Width 13.3 % (11.5-14.5) Platelet Count 164 x10^3/uL (140-400) Magnesium Level 2.0 mg/dL (1.8-2.4) Test 06/20/20 06:08 06/20/20 08:00 Glucose (Fingerstick) 94 mg/dL (70-99) O2 Saturation 97 % (92-99) Arterial Blood pH 7.43 (7.35-7.45) Arterial Blood pCO2 at Patient Temp 39 mmHg (35-46) Arterial Blood pO2 at Patient Temp 102 mmHg (75-108) Arterial Blood HCO3 25 mmol/L (21-28) Arterial Blood Base Excess 1 mmol/L (-3-3) FiO2 40/vent Microbiology 06/17/20 Blood Culture - Preliminary, Resulted NO GROWTH AFTER 2 DAYS Medications Current Medications Amiodarone HCl 150 mg/Dextrose 103 ml @ 618 mls/hr 1X ONCE IV Last administered on 06/17/20at 07:00; Start 06/17/20 at 07:00; Stop 06/17/20 at 07:09; Status DC Amiodarone HCl 450 mg/Dextrose 259 ml @ 33 mls/hr 1X ONCE IV ; Start 06/17/20 at 07:00; Stop 06/17/20 at 14:50; Status DC Sodium Chloride 1,000 ml @ 1,000 mls/hr 1X ONCE IV Last administered on 06/17/20at 08:11; Start 06/17/20 at 07:15; Stop 06/17/20 at 08:14; Status DC Midazolam HCl 100 ml @ 0 mls/hr 1X ONCE IV ; Start 06/17/20 at 07:15; Stop 06/17/20 at 07:16; Status DC Midazolam HCl (Versed) 5 mg STK-MED ONCE .ROUTE ; Start 06/17/20 at 07:17; Stop 06/17/20 at 07:17; Status DC Iohexol (Omnipaque 300 Mg/ml) 75 ml 1X ONCE IV Last administered on 06/17/20at 08:17; Start 06/17/20 at 08:15; Stop 06/17/20 at 08:16; Status DC Iohexol (Omnipaque 350 Mg/ml) 100 ml 1X ONCE IV Last administered on 06/17/20at 08:17; Start 06/17/20 at 08:15; Stop 06/17/20 at 08:16; Status DC Info (CONTRAST GIVEN -- Rx MONITORING) 1 each PRN DAILY PRN MC SEE COMMENTS; Start 06/17/20 at 08:15; Stop 06/19/20 at 08:14; Status DC Sodium Chloride 1,000 ml @ 1,000 mls/hr 1X ONCE IV Last administered on 06/17/20at 08:25; Start 06/17/20 at 08:15; Stop 06/17/20 at 09:14; Status DC Potassium Chloride/Water 100 ml @ 50 mls/hr 1X ONCE IV Last administered on 06/17/20at 10:16; Start 06/17/20 at 09:00; Stop 06/17/20 at 10:59; Status DC Piperacillin Sod/ Tazobactam Sod (Zosyn Per Pharmacy) 1 each PRN DAILY PRN MC SEE COMMENTS; Start 06/17/20 at 08:45 Piperacillin Sod/ Tazobactam Sod 4.5 gm/Sodium Chloride 100 ml @ 200 mls/hr 1X ONCE IV Last administered on 06/17/20at 10:15; Start 06/17/20 at 08:45; Stop 06/17/20 at 09:14; Status DC Sodium Chloride 1,000 ml @ 125 mls/hr Q8H IV Last administered on 06/17/20at 23:39; Start 06/17/20 at 09:00; Stop 06/18/20 at 08:59; Status DC Propofol (Diprivan) 200 mg 1X ONCE IV Last administered on 06/17/20at 09:00; Start 06/17/20 at 09:00; Stop 06/17/20 at 09:01; Status DC Propofol 100 ml @ As Directed STK-MED ONCE IV ; Start 06/17/20 at 09:05; Stop 06/17/20 at 09:05; Status DC Lidocaine HCl (Lidocaine 1% 20ml Vial) 20 ml 1X ONCE INJ Last administered on 06/17/20at 09:15; Start 06/17/20 at 09:15; Stop 06/17/20 at 09:20; Status DC Lidocaine HCl (Xylocaine-Mpf 1% 5ml Vial) 5 ml STK-MED ONCE .ROUTE ; Start 06/17/20 at 09:26; Stop 06/17/20 at 09:26; Status DC Sodium Chloride 1,000 ml @ 1,000 mls/hr 1X ONCE IV Last administered on 06/17/20at 10:15; Start 06/17/20 at 10:15; Stop 06/17/20 at 11:14; Status DC Propofol 100 ml @ 3.819 mls/ hr CONT PRN IV PER PROTOCOL Last administered on 06/20/20at 09:53; Start 06/17/20 at 10:45 Fentanyl Citrate (Fentanyl 2ml Vial) 100 mcg 1X ONCE IV ; Start 06/17/20 at 12:00; Stop 06/17/20 at 12:39; Status DC Midazolam HCl (Versed) 2 mg 1X ONCE IV ; Start 06/17/20 at 12:00; Stop 06/17/20 at 12:39; Status DC Magnesium Sulfate/ Dextrose 100 ml @ 100 mls/hr 1X ONCE IV Last administered on 06/17/20at 12:22; Start 06/17/20 at 12:00; Stop 06/17/20 at 12:39; Status DC Buspirone HCl (Buspar) 30 mg Q8H NG Last administered on 06/17/20at 12:31; Start 06/17/20 at 12:00; Stop 06/17/20 at 12:39; Status DC Glycerin/ Hypromellose/ Polyethylene (Artificial Tears) 1 drop Q6HRS OU ; Start 06/17/20 at 12:00; Stop 06/17/20 at 12:39; Status DC Glycerin/ Hypromellose/ Polyethylene (Artificial Tears) 1 drop PRN Q15MIN PRN OU DRY EYE; Start 06/17/20 at 12:00; Stop 06/17/20 at 12:39; Status DC Heparin Sodium (Porcine) (Heparin Sodium) 5,000 unit BID SQ ; Start 06/17/20 at 21:00; Stop 06/17/20 at 12:39; Status DC Pantoprazole Sodium (PROTONIX VIAL for IV PUSH) 40 mg DAILY IVP ; Start 06/18/20 at 09:00; Stop 06/17/20 at 12:39; Status DC Fentanyl Citrate 30 ml @ 0 mls/hr CONT PRN IV PER PROTOCOL.; Start 06/17/20 at 12:00; Stop 06/17/20 at 12:39; Status DC Propofol 100 ml @ 0 mls/hr CONT PRN IV PER PROTOCOL.; Start 06/17/20 at 12:00; Stop 06/17/20 at 12:39; Status DC Midazolam HCl 100 ml @ 0 mls/hr CONT PRN IV PER PROTOCOL; Start 06/17/20 at 12:00; Stop 06/17/20 at 12:39; Status DC Vecuronium [place] (Norcuron Bolus) 10 mg PRN Q1HR PRN IV SHIVERING; Start 06/17/20 at 12:00; Stop 06/17/20 at 12:39; Status DC Piperacillin Sod/ Tazobactam Sod 4.5 gm/Sodium Chloride 100 ml @ 200 mls/hr 1X ONCE IV ; Start 06/17/20 at 12:15; Stop 06/17/20 at 12:44; Status Cancel Midazolam HCl (Versed) 5 mg Q1HR PRN IV SEDATION Last administered on 06/18/20at 19:57; Start 06/17/20 at 12:45 Fentanyl Citrate (Fentanyl 2ml Vial) 100 mcg Q1HR IVP Last administered on 06/17/20at 18:55; Start 06/17/20 at 13:00; Stop 06/17/20 at 23:41; Status DC Piperacillin Sod/ Tazobactam Sod 3.375 gm/Sodium Chloride 50 ml @ 100 mls/hr Q6H IV Last administered on 06/20/20at 05:38; Start 06/17/20 at 16:00 Potassium Bicarbonate (Potassium Effervescent Tablet) 40 meq 1X ONCE NG Last administered on 06/18/20at 10:00; Start 06/18/20 at 09:45; Stop 06/18/20 at 09:48; Status DC Albuterol/ Ipratropium (Duoneb) 3 ml RTQID NEB Last administered on 06/20/20 08:14; Start 06/18/20 at 20:00 Famotidine (Pepcid Vial) 20 mg BID IVP Last administered on 06/20/20 08:33; Start 06/18/20 at 21:00 Enoxaparin Sodium (Lovenox 40mg Syringe) 40 mg Q24H SQ Last administered on 06/19/20at 21:10; Start 06/18/20 at 21:00 Levothyroxine Sodium (Synthroid) 75 mcg DAILY06 PO Last administered on 06/20/20 05:38; Start 06/18/20 at 21:00 Fentanyl Citrate 30 ml @ 0 mls/hr CONT PRN IV SEE PROTOCOL Last administered on 06/20/20at 07:54; Start 06/18/20 at 20:15 Carvedilol (Coreg) 3.125 mg BIDWMEALS PO Last administered on 06/20/20 08:33; Start 06/19/20 at 17:00 Atorvastatin Calcium (Lipitor) 20 mg QHS PO Last administered on 06/19/20 21:10; Start 06/19/20 at 21:00 Aspirin (Aspirin Chewable) 81 mg DAILYWBKFT PO Last administered on 06/20/20 08:33; Start 06/20/20 at 08:00 Aspirin (Aspirin Chewable) 81 mg 1X ONCE PO Last administered on 06/19/20at 15:57; Start 06/19/20 at 15:30; Stop 06/19/20 at 15:37; Status DC Potassium Chloride/Water 100 ml @ 100 mls/hr 1X ONCE IV Last administered on 06/19/20at 15:57; Start 06/19/20 at 15:30; Stop 06/19/20 at 16:29; Status DC Amiodarone HCl (Cordarone) 400 mg DAILY PO Last administered on 06/20/20at 08:33; Start 06/20/20 at 09:00 Active Scripts Active Reported Acetaminophen-Diphenhyd 500-25 (Acetaminophen/Diphenhydramine) 1 Each Tablet 1 Each PO HS PRN Naproxen 500 Mg Tablet 1 Tab PO BID PRN 30 Days Tramadol Hcl 50 Mg Tablet 50 Mg PO Q4HRS Levothyroxine Sodium 75 Mcg Tablet 1 Tab PO DAILY Adderall 20 Mg Tablet (Dextroamphetamine/Amphetamine) 20 Mg Tablet 1 Tab PO DAILY MDD 1 Tablet(s) 5 Days Prozac (Fluoxetine Hcl) 20 Mg Capsule 1 Cap PO DAILYWBKFT Vitals/I & O Vital Sign - Last 24 Hours 06/19/20 06/19/20 06/19/20 06/19/20 11:00 12:00 12:00 12:08 Temp 98.5 98.5 Pulse 84 88 Resp 18 18 B/P (MAP) 113/68 (83) 114/61 (78) Pulse Ox 97 97 96 O2 Delivery Ventilator Mechanical Ventilator Ventilator Ventilator 06/19/20 06/19/20 06/19/20 06/19/20 13:00 14:00 15:00 15:57 Pulse 91 85 88 88 Resp 18 18 18 B/P (MAP) 112/58 (76) 120/67 (84) 112/73 (86) 112/73 Pulse Ox 97 97 97 O2 Delivery Ventilator Ventilator Ventilator 06/19/20 06/19/20 06/19/20 06/19/20 16:00 16:00 16:10 17:00 Temp 98.3 98.3 Pulse 82 89 Resp 18 18 B/P (MAP) 111/57 (75) 97/62 (74) Pulse Ox 100 97 96 O2 Delivery Mechanical Ventilator Ventilator Ventilator Ventilator 06/19/20 06/19/20 06/19/20 06/19/20 18:00 19:00 19:50 20:00 Pulse 94 92 Resp 18 18 18 B/P (MAP) 115/67 (83) 123/72 (89) Pulse Ox 97 97 97 O2 Delivery Ventilator Ventilator Ventilator Mechanical Ventilator 06/19/20 06/19/20 06/19/20 06/19/20 20:00 20:20 20:48 21:00 Temp 99.6 99.6 Pulse 94 84 Resp 18 18 18 B/P (MAP) 133/75 (94) 116/65 (82) Pulse Ox 98 98 98 98 O2 Delivery Ventilator Ventilator Ventilator Ventilator 06/19/20 06/19/20 06/19/20 06/19/20 22:00 23:00 23:59 23:59 Temp 98.9 98.9 Pulse 78 80 77 Resp 18 18 18 B/P (MAP) 107/64 (78) 99/56 (70) 103/63 (76) Pulse Ox 99 100 100 O2 Delivery Ventilator Ventilator Ventilator Mechanical Ventilator 06/20/20 06/20/20 06/20/20 06/20/20 00:30 01:00 02:00 03:00 Pulse 77 74 79 Resp 18 18 18 B/P (MAP) 110/66 (81) 112/76 (88) 100/56 (71) Pulse Ox 99 98 100 100 O2 Delivery Ventilator Ventilator Ventilator Ventilator 06/20/20 06/20/20 06/20/20 06/20/20 04:00 04:00 04:07 05:00 Temp 98.6 98.6 Pulse 83 81 Resp 18 18 B/P (MAP) 119/74 (89) 95/60 (72) Pulse Ox 99 99 98 O2 Delivery Mechanical Ventilator Ventilator Ventilator Ventilator 06/20/20 06/20/20 06/20/20 06/20/20 06:00 07:00 07:54 08:00 Temp 98.1 98.1 Pulse 79 74 90 Resp 18 18 18 18 B/P (MAP) 101/57 (72) 108/59 (75) 127/74 (91) Pulse Ox 99 98 40 98 O2 Delivery Ventilator Ventilator Ventilator Ventilator 06/20/20 06/20/20 06/20/20 06/20/20 08:00 08:02 08:33 08:33 Pulse 74 Resp 18 B/P (MAP) 108/59 Pulse Ox 98 40 O2 Delivery Mechanical Ventilator Ventilator Ventilator 06/20/20 06/20/20 06/20/20 08:33 09:00 10:00 Pulse 74 85 81 Resp 18 18 B/P (MAP) 108/59 110/66 (81) 124/73 (90) Pulse Ox 98 99 O2 Delivery Ventilator Ventilator Intake and Output 06/19/20 06/19/20 06/20/20 15:00 23:00 07:00 Intake Total 300 ml 1544 ml 1418 ml Output Total 400 ml 465 ml 291 ml Balance -100 ml 1079 ml 1127 ml Justicifation of Admission Dx: Justifications for Admission: Justification of Admission Dx: N/A JEFF FLORES MD Jun 20, 2020 10:13
--- NOTE | 2020-06-20 10:53 | PDOC ---
JESSE ANTOINE [employer]ER 06/20/20 1053: CARDIO Progress Notes Date and Time Date of Service 06/20/2020 Time of Evaluation 1030 Subjective Subjective: Other (intubated, vent) Vitals Vitals Vital Signs Date Time Temp Pulse Resp B/P (MAP) Pulse Ox O2 Delivery O2 Flow Rate FiO2 06/20/20 10:00 81 18 124/73 (90) 99 Ventilator 06/20/20 08:00 98.1 98.1 Weight Weight [ ] Input and Output Intake and Output Intake and Output 06/20/20 07:00 Intake Total 3262 ml Output Total 1156 ml Balance 2106 ml IV Total 971 ml Tube Feeding 1666 ml Other 625 ml Output Urine Total 1095 ml Gastric Drainage Total 0 ml Chest Tube Drainage Total 61 ml Laboratory Labs Laboratory Tests Test 06/19/20 11:23 06/19/20 16:05 06/20/20 00:03 06/20/20 06:00 Glucose (Fingerstick) 121 mg/dL (70-99) 119 mg/dL (70-99) 128 mg/dL (70-99) Prothrombin Time 14.0 SEC (11.7-14.0) Prothromb Time International Ratio 1.1 (0.8-1.1) Sodium Level 139 mmol/L (136-145) 137 mmol/L (136-145) Potassium Level 3.8 mmol/L (3.5-5.1) 3.6 mmol/L (3.5-5.1) Chloride Level 106 mmol/L (98-107) 105 mmol/L (98-107) Carbon Dioxide Level 28 mmol/L (21-32) 27 mmol/L (21-32) Anion Gap 5 (6-14) 5 (6-14) Blood Urea Nitrogen 9 mg/dL (7-20) 12 mg/dL (7-20) Creatinine 0.7 mg/dL (0.6-1.0) 0.4 mg/dL (0.6-1.0) Estimated GFR (Cockcroft-Gault) 86.2 164.5 BUN/Creatinine Ratio 13 (6-20) Glucose Level 120 mg/dL (70-99) 129 mg/dL (70-99) Calcium Level 7.9 mg/dL (8.5-10.1) 7.7 mg/dL (8.5-10.1) Total Bilirubin 0.5 mg/dL (0.2-1.0) Aspartate Amino Transf (AST/SGOT) 49 U/L (15-37) Alanine Aminotransferase (ALT/SGPT) 90 U/L (14-59) Alkaline Phosphatase 49 U/L (46-116) Total Protein 6.0 g/dL (6.4-8.2) Albumin 2.6 g/dL (3.4-5.0) Albumin/Globulin Ratio 0.8 (1.0-1.7) White Blood Count 8.4 x10^3/uL (4.0-11.0) Red Blood Count 3.25 x10^6/uL (3.50-5.40) Hemoglobin 9.9 g/dL (12.0-15.5) Hematocrit 30.0 % (36.0-47.0) Mean Corpuscular Volume 92 fL (79-100) Mean Corpuscular Hemoglobin 30 pg (25-35) Mean Corpuscular Hemoglobin Concent 33 g/dL (31-37) Red Cell Distribution Width 13.3 % (11.5-14.5) Platelet Count 164 x10^3/uL (140-400) Magnesium Level 2.0 mg/dL (1.8-2.4) Test 06/20/20 06:08 06/20/20 08:00 Glucose (Fingerstick) 94 mg/dL (70-99) O2 Saturation 97 % (92-99) Arterial Blood pH 7.43 (7.35-7.45) Arterial Blood pCO2 at Patient Temp 39 mmHg (35-46) Arterial Blood pO2 at Patient Temp 102 mmHg (75-108) Arterial Blood HCO3 25 mmol/L (21-28) Arterial Blood Base Excess 1 mmol/L (-3-3) FiO2 40/vent Microbiology Micro Microbiology 06/17/20 Blood Culture - Preliminary, Resulted NO GROWTH AFTER 3 DAYS Physical Exam HEENT: Neck Supple W Full Motion Chest: Symmetric LUNGS: Other (intubated, vent) Heart: RRR (SR with PVCs) Abdomen: Other (soft) Extremities: No Edema Neurology: other (sedated) Assessment Assessment 1. OOH cardiopulmonary arrest: initially with VT, shock, then asystole. at least 2 pulseless events, unclear duration to ROSC but significantly prolonged per staff with spouse giving about 10 min CPR himself. Received amiodarone. She does not have any known hx of CAD/arrhythmias 2. Acute respiratory failure with possible pneumonia: negative for PE 3. Severe cardiomyopathy: EF 25% 4. Right pneumothorax: due to chest compression 5. ADHD: on adderral but negative on tox screen 6. hypothyroidism: on replacement 7. Marijuana use: + UDS 8. Anoxic encephalopathy: neurology following Recommendations 1. Off sedation, awaiting further neuro input. Amiodarone, coreg. 2. ASA and statin. Lasix and K x1 3. Poor prognosis with significantly prolonged downtime. Will consider for further ischemic eval if there is meaningful neurological recovery. Discussed with spouse 4. Supportive care Justicifation of Admission Dx: Justifications for Admission: Justification of Admission Dx: N/A NURA MEHTA MD 06/20/202025: CARDIO Progress Notes Assessment Assessment Patient seen and evaluated I agree with our nurse practitioners assessment and plan. Out of hospital cardiopulmonary arrest: initially with VT, shock, then asystole. at least 2 pulseless events, unclear duration to ROSC but significantly prolonged. On amiodarone. Acute respiratory failure with possible pneumonia: negative for PE Severe cardiomyopathy: EF 25% Right pneumothorax: due to chest compression Hypothyroidism: on replacement Anoxic encephalopathy: neurology following JESSE ANTOINE APRN Jun 20, 2020 10:53 NURA MEHTA MD Jun 20, 2020 20:26
--- NOTE | 2020-06-20 11:19 | PDOC ---
PULMONARY PROGRESS NOTES DATE: 06/20/20 TIME: 11:17 Subjective S/P cardiac arrest 06/17---PEA / V-fib remains on vent support sedation turned off this am, still not awake yet Vitals Vital Signs Date Time Temp Pulse Resp B/P (MAP) Pulse Ox O2 Delivery O2 Flow Rate FiO2 06/20/20 11:00 72 18 135/76 (95) 99 Ventilator 06/20/20 08:00 98.1 98.1 Comments intubated Lungs: Other (decrease bs) Cardiovascular: S1 Abdomen: Soft Extremities: No Edema Skin: Warm Labs Laboratory Tests Test 06/19/20 00:00 06/19/20 07:30 06/19/20 11:23 06/19/20 16:05 Glucose (Fingerstick) 122 mg/dL (70-99) 121 mg/dL (70-99) O2 Saturation 97 % (92-99) Arterial Blood pH 7.53 (7.35-7.45) Arterial Blood pCO2 at Patient Temp 30 mmHg (35-46) Arterial Blood pO2 at Patient Temp 93 mmHg (75-108) Arterial Blood HCO3 24 mmol/L (21-28) Arterial Blood Base Excess 2 mmol/L (-3-3) FiO2 40/vent Prothrombin Time 14.0 SEC (11.7-14.0) Prothromb Time International Ratio 1.1 (0.8-1.1) Sodium Level 139 mmol/L (136-145) Potassium Level 3.8 mmol/L (3.5-5.1) Chloride Level 106 mmol/L (98-107) Carbon Dioxide Level 28 mmol/L (21-32) Anion Gap 5 (6-14) Blood Urea Nitrogen 9 mg/dL (7-20) Creatinine 0.7 mg/dL (0.6-1.0) Estimated GFR (Cockcroft-Gault) 86.2 BUN/Creatinine Ratio 13 (6-20) Glucose Level 120 mg/dL (70-99) Calcium Level 7.9 mg/dL (8.5-10.1) Total Bilirubin 0.5 mg/dL (0.2-1.0) Aspartate Amino Transf (AST/SGOT) 49 U/L (15-37) Alanine Aminotransferase (ALT/SGPT) 90 U/L (14-59) Alkaline Phosphatase 49 U/L (46-116) Total Protein 6.0 g/dL (6.4-8.2) Albumin 2.6 g/dL (3.4-5.0) Albumin/Globulin Ratio 0.8 (1.0-1.7) Test 06/20/20 00:03 06/20/20 06:00 06/20/20 06:08 06/20/20 08:00 Glucose (Fingerstick) 119 mg/dL (70-99) 128 mg/dL (70-99) 94 mg/dL (70-99) White Blood Count 8.4 x10^3/uL (4.0-11.0) Red Blood Count 3.25 x10^6/uL (3.50-5.40) Hemoglobin 9.9 g/dL (12.0-15.5) Hematocrit 30.0 % (36.0-47.0) Mean Corpuscular Volume 92 fL (79-100) Mean Corpuscular Hemoglobin 30 pg (25-35) Mean Corpuscular Hemoglobin Concent 33 g/dL (31-37) Red Cell Distribution Width 13.3 % (11.5-14.5) Platelet Count 164 x10^3/uL (140-400) Sodium Level 137 mmol/L (136-145) Potassium Level 3.6 mmol/L (3.5-5.1) Chloride Level 105 mmol/L (98-107) Carbon Dioxide Level 27 mmol/L (21-32) Anion Gap 5 (6-14) Blood Urea Nitrogen 12 mg/dL (7-20) Creatinine 0.4 mg/dL (0.6-1.0) Estimated GFR (Cockcroft-Gault) 164.5 Glucose Level 129 mg/dL (70-99) Calcium Level 7.7 mg/dL (8.5-10.1) Magnesium Level 2.0 mg/dL (1.8-2.4) O2 Saturation 97 % (92-99) Arterial Blood pH 7.43 (7.35-7.45) Arterial Blood pCO2 at Patient Temp 39 mmHg (35-46) Arterial Blood pO2 at Patient Temp 102 mmHg (75-108) Arterial Blood HCO3 25 mmol/L (21-28) Arterial Blood Base Excess 1 mmol/L (-3-3) FiO2 40/vent Laboratory Tests Test 06/19/20 11:23 06/19/20 16:05 06/20/20 00:03 06/20/20 06:00 Glucose (Fingerstick) 121 mg/dL (70-99) 119 mg/dL (70-99) 128 mg/dL (70-99) Prothrombin Time 14.0 SEC (11.7-14.0) Prothromb Time International Ratio 1.1 (0.8-1.1) Sodium Level 139 mmol/L (136-145) 137 mmol/L (136-145) Potassium Level 3.8 mmol/L (3.5-5.1) 3.6 mmol/L (3.5-5.1) Chloride Level 106 mmol/L (98-107) 105 mmol/L (98-107) Carbon Dioxide Level 28 mmol/L (21-32) 27 mmol/L (21-32) Anion Gap 5 (6-14) 5 (6-14) Blood Urea Nitrogen 9 mg/dL (7-20) 12 mg/dL (7-20) Creatinine 0.7 mg/dL (0.6-1.0) 0.4 mg/dL (0.6-1.0) Estimated GFR (Cockcroft-Gault) 86.2 164.5 BUN/Creatinine Ratio 13 (6-20) Glucose Level 120 mg/dL (70-99) 129 mg/dL (70-99) Calcium Level 7.9 mg/dL (8.5-10.1) 7.7 mg/dL (8.5-10.1) Total Bilirubin 0.5 mg/dL (0.2-1.0) Aspartate Amino Transf (AST/SGOT) 49 U/L (15-37) Alanine Aminotransferase (ALT/SGPT) 90 U/L (14-59) Alkaline Phosphatase 49 U/L (46-116) Total Protein 6.0 g/dL (6.4-8.2) Albumin 2.6 g/dL (3.4-5.0) Albumin/Globulin Ratio 0.8 (1.0-1.7) White Blood Count 8.4 x10^3/uL (4.0-11.0) Red Blood Count 3.25 x10^6/uL (3.50-5.40) Hemoglobin 9.9 g/dL (12.0-15.5) Hematocrit 30.0 % (36.0-47.0) Mean Corpuscular Volume 92 fL (79-100) Mean Corpuscular Hemoglobin 30 pg (25-35) Mean Corpuscular Hemoglobin Concent 33 g/dL (31-37) Red Cell Distribution Width 13.3 % (11.5-14.5) Platelet Count 164 x10^3/uL (140-400) Magnesium Level 2.0 mg/dL (1.8-2.4) Test 06/20/20 06:08 06/20/20 08:00 Glucose (Fingerstick) 94 mg/dL (70-99) O2 Saturation 97 % (92-99) Arterial Blood pH 7.43 (7.35-7.45) Arterial Blood pCO2 at Patient Temp 39 mmHg (35-46) Arterial Blood pO2 at Patient Temp 102 mmHg (75-108) Arterial Blood HCO3 25 mmol/L (21-28) Arterial Blood Base Excess 1 mmol/L (-3-3) FiO2 40/vent Medications Active Scripts Medications Dose Route/Sig Max Daily Dose Days Date Category Acetaminophen-Diphenhyd 500-25 (Acetaminophen/Diphenhydramine) 1 Each Tablet 1 Each PO HS PRN 06/18/20 Reported Naproxen 500 Mg Tablet 1 Tab PO BID PRN 30 06/18/20 Reported Tramadol Hcl 50 Mg Tablet 50 Mg PO Q4HRS 06/18/20 Reported Levothyroxine Sodium 75 Mcg Tablet 1 Tab PO DAILY 06/18/20 Reported Adderall 20 Mg Tablet (Dextroamphetamine/Amphetamine) 20 Mg Tablet 1 Tab PO DAILY MDD 1 Tablet(s) 5 06/18/20 Reported Prozac (Fluoxetine Hcl) 20 Mg Capsule 1 Cap PO DAILYWBKFT 06/18/20 Reported Comments CXR 06/20/20 IMPRESSION: Increased consolidative changes the left lung base may represent degree of small pleural effusion with adjacent compressive atelectasis versus infiltrate. Impression . IMPRESSION: 1. Acute respiratory failure secondary to upw-hd-vmedlppp cardiopulmonary arrest.suspect anoxic encephalopathy 2. Bhu-kt-phxnderi ventricular fibrillation and asystole leading to anoxic brain injury. 3. Anoxic encephalopathy. 4. COVID neg 5. Morbid obesity. 6. Leukocytosis--improved 7. Lactic acidosis secondary to poo-iz-mtuxtnpb cardiac arrest. 8. Abnormal x-ray revealing bibasilar atelectasis, infiltrates. 9. Pneumothorax secondary to CPR.resolved on cxr, no air leak 10. Sternal sternal fracture secondary to CPR. 11. Pneumonia positive, gram-negative, gram-positive. Plan . PLAN: continue current support with assist control ventilation, Fi02 40% off sedation at this time, await for her to awake to assess neurological status Follow CXR/ABG-- no changes Continue Chest tube to suction, no leak on exam Follow ID recs for ABX on zosyn Follow neurology recs Follow Cardiology recs DVT/GI PPX D/W RN and RT Critical Care time [id number] Poor prognosis 2/2 anoxic injury d/w son / at bedside ANGELA MORENO MD Jun 20, 2020 11:19
[2020-06-20] MEDS ORDERED: FUROSEMIDE 40 MG/4 ML VIAL. IVP ONE (13:30)
[2020-06-20] MEDS ORDERED: POTASSIUM CHLORIDE 20MEQ 100 ML IV ONE (13:30)
--- NOTE | 2020-06-20 15:10 | NUR ---
Sedation off at 1000, family at bedside. Patient able to open eyes slightly at 1200 unable to follow any commands. 1500 patient's eyes wide open but staring up at the ceiling. Unable to track with eyes, or follow commands. Pupils 3mm equal and reactive. Patient started overbreathing the vent, coughing, face was turning red. HR into the 100's SBP 160's. Re sedated on Propofol only no Fentanyl per Dr Olivera.
[2020-06-20] MEDS: ATORVASTATIN CALCIUM 20 MG TABLET PO SCH (20:57)
[2020-06-20] MEDS: ENOXAPARIN 40 MG/0.4 ML SYRINGE. SQ SCH (20:57)
[2020-06-21] VITALS (21 sets, daily range): BP systolic 96–127; BP diastolic 56–74
[2020-06-21] MEDS: PIPERACILLIN/TAZOBACTAM 3.375 GM in IV NORMAL SALINE 50ML 50 ML IV SCH ×4 (00:11→16:40)
[2020-06-21] MEDS: PROPOFOL 100 ML IV PRN ×5 (01:12→20:18)
[2020-06-21] MEDS: LEVOTHYROXINE 75 MCG TABLET PO SCH (06:29)
[2020-06-21 07:16] LABS: HEMATOCRIT 29.6 % (36.0-47.0); HEMOGLOBIN 9.8 g/dL (12.0-15.5); RED BLOOD COUNT 3.24 x10^6/uL (3.50-5.40); RED CELL DISTRIBUTION WIDTH 13.3 % (11.5-14.5); WHITE BLOOD COUNT 8.1 x10^3/uL (4.0-11.0)
[2020-06-21 07:26] LABS: CALCIUM 8.5 mg/dL (8.5-10.1); CREATININE 0.6 mg/dL (0.6-1.0); POTASSIUM 3.5 mmol/L (3.5-5.1)
--- NOTE | 2020-06-21 07:40 | PDOC ---
Infectious Disease Note Subjective Subjective pt is intubated on vent Unresponsive ROS ROS No nausea vomiting diarrhea fever Vital Sign Vital Signs Vital Signs Date Time Temp Pulse Resp B/P (MAP) Pulse Ox O2 Delivery O2 Flow Rate FiO2 06/21/20 05:49 99 Ventilator 06/21/20 03:00 64 18 107/66 (80) 06/20/20 23:59 98.4 98.4 Physical Exam PHYSICAL EXAM GENERAL: Sedated, orally intubated female, not in distress. VITAL SIGNS: Stable. HEENT: Both pupils are round and reacting. No conjunctival lesion. Mouth cannot be visualized, orally intubated. NECK: Supple. No JVP, no lymphadenopathy. LUNGS: Decreased breath sounds bilaterally. HEART: S1, S2, regular. No gallop or murmur. ABDOMEN: Soft, nontender. No organomegaly. EXTREMITIES: No edema or cyanosis. SKIN: Unremarkable. NEUROLOGICAL: The patient is sedated, orally intubated. Labs Lab Laboratory Tests Test 06/20/20 08:00 06/20/20 11:20 06/20/20 17:46 06/21/20 00:14 O2 Saturation 97 % (92-99) Arterial Blood pH 7.43 (7.35-7.45) Arterial Blood pCO2 at Patient Temp 39 mmHg (35-46) Arterial Blood pO2 at Patient Temp 102 mmHg (75-108) Arterial Blood HCO3 25 mmol/L (21-28) Arterial Blood Base Excess 1 mmol/L (-3-3) FiO2 40/vent Glucose (Fingerstick) 128 mg/dL (70-99) 118 mg/dL (70-99) 111 mg/dL (70-99) Test 06/21/20 06:40 Sodium Level 139 mmol/L (136-145) Potassium Level 3.5 mmol/L (3.5-5.1) Chloride Level 103 mmol/L (98-107) Carbon Dioxide Level 31 mmol/L (21-32) Anion Gap 5 (6-14) Blood Urea Nitrogen 15 mg/dL (7-20) Creatinine 0.6 mg/dL (0.6-1.0) Estimated GFR (Cockcroft-Gault) 103.0 Glucose Level 117 mg/dL (70-99) Calcium Level 8.5 mg/dL (8.5-10.1) Micro Microbiology 1/3/21 Blood Culture - Preliminary, Resulted NO GROWTH AFTER 1 DAY Objective Assessment IMPRESSION: 1. Cardiopulmonary arrest at home. 2. Leukocytosis, likely reactive. 3. Lactic acidosis from #1. 4. Respiratory failure. suspected aspiration 5. Suspected anoxic brain injury. 6. Hypertension. 7. Pneumothorax. 8. Rib fracture and sternal fracture. Plan Plan of Care covid neg culture neg cont antibiotics cont supportive care d/w Dr Olivera d/w family/ and son MOSES RENAEEVELYN Valdez MD Jun 21, 2020 07:40
[2020-06-21] MEDS: FAMOTIDINE 20 MG/2 ML VIAL IVP SCH ×2 (07:59→20:18)
[2020-06-21] MEDS: ASPIRIN CHEWABLE 81 MG TABLET. PO SCH (07:59)
[2020-06-21] MEDS: AMIODARONE HCL 200 MG TABLET. PO SCH (08:00)
[2020-06-21] MEDS: CARVEDILOL 3.125 MG TABLET. PO SCH ×2 (08:00→16:51)
[2020-06-21] MEDS: IPRATRPIUM/ALBUTEROL 0.5/2.5MG 3 ML NEBU. NEB SCH ×4 (08:08→20:38)
[2020-06-21 08:20] LABS: BASE EXCESS ABG 5 mmol/L (-3-3); HCO3 ABG 29 mmol/L (21-28); PCO2 ABG 40 mmHg (35-46); PO2 ABG 102 mmHg (75-108); SAT O2 ABG 97 % (92-99)
--- NOTE | 2020-06-21 08:26 | PDOC ---
[facility] PROGRESS NOTE Date of Service DOS: DATE: 06/21/20 TIME: 08:24 Chief Complaint Chief Complaint Cardiac arrest with resuscitation and probable pneumonia, sternal fracture and pneumothorax secondary to CPR, leukocytosis, electrolyte disturbance, hypokalemia, lactic acidosis, elevated troponin. The patient will be admitted. We will consult Pulmonary Medicine, Infectious Disease, and Cardiology. She is going to the ICU. Vent weaning. Propofol for sedation. Serial enzymes, serial EKGs, IV Zosyn until she is seen by Infectious Disease. Home meds, DVT prophylaxis. Full code. History of Present Illness History of Present Illness The patient is a pleasant 59-year-old female who had COVID-19 two months ago. She had a witnessed cardiac arrest today. The family started CPR, they called the ambulance. She has now been resuscitated and intubated. She is currently being examined in the ER where she is starting to have some posturing. She is not really responding to pain either, but her pupils are reactive. 06/21: Patient narcisa in ICU on ventilator. FiO2 40%, PEEP 5%. She is afebrile. Discussed with RN, no acute vents overnight. Charts and labs reviewed. Continue antibiotic treatment with Zosyn. 06/20: Patient seen in ICU. She remains on ventilator, FiO2 40%, PEEP 5. Afebrile. No acute events overnight. Echocardiogram obtained, showing mildly dilated left ventricle with global hypokinesis, estimated ejection fraction 25%. 06/19: Patient seen in ICU. On ventilator, FiO2 40%, PEEP 5. Continue IV Zosyn. Follow neurology and cardiology recommendations. Chest tube management and vent management per pulmonology. 06/18: Patient seen in ICU. Afebrile. Ventilated, FiO2 40%, PEEP 5. Continue antibiotic coverage. Charts and labs reviewed. Discussed with RN, no acute events overnight. COVID-19 negative. Echocardiogram pending. Vitals/I&O Vitals/I&O: Vital Signs Date Time Temp Pulse Resp B/P (MAP) Pulse Ox O2 Delivery O2 Flow Rate FiO2 06/21/20 08:08 99 Ventilator 06/21/20 08:00 69 98/60 06/21/20 07:00 18 06/20/20 23:59 98.4 98.4 I & O 06/20/20 06/20/20 06/21/20 15:00 23:00 07:00 Intake Total 340.3 ml 858.6 ml 1648 ml Output Total 730 ml 2960 ml 620 ml Balance -389.7 ml -2101.4 ml 1028 ml Physical Exam Physical Exam: GENERAL: Sedated, orally intubated female, not in distress. VITAL SIGNS: Stable. HEENT: Both pupils are round and reacting. No conjunctival lesion. Mouth cannot be visualized, orally intubated. NECK: Supple. No JVP, no lymphadenopathy. LUNGS: Decreased breath sounds bilaterally. HEART: S1, S2, regular. No gallop or murmur. ABDOMEN: Soft, nontender. No organomegaly. EXTREMITIES: No edema or cyanosis. SKIN: Unremarkable. NEUROLOGICAL: The patient is sedated, orally intubated. General: Other (Intubated) Heart: Regular rate Lungs: Other (decrease bs) Abdomen: Normal bowel sounds Extremities: No clubbing, No cyanosis Skin: No rashes, No breakdown Labs Labs: Laboratory Tests Test 06/20/20 11:20 06/20/20 17:46 06/21/20 00:14 06/21/20 06:40 Glucose (Fingerstick) 128 mg/dL (70-99) 118 mg/dL (70-99) 111 mg/dL (70-99) White Blood Count 8.1 x10^3/uL (4.0-11.0) Red Blood Count 3.24 x10^6/uL (3.50-5.40) Hemoglobin 9.8 g/dL (12.0-15.5) Hematocrit 29.6 % (36.0-47.0) Mean Corpuscular Volume 91 fL (79-100) Mean Corpuscular Hemoglobin 30 pg (25-35) Mean Corpuscular Hemoglobin Concent 33 g/dL (31-37) Red Cell Distribution Width 13.3 % (11.5-14.5) Platelet Count 186 x10^3/uL (140-400) Sodium Level 139 mmol/L (136-145) Potassium Level 3.5 mmol/L (3.5-5.1) Chloride Level 103 mmol/L (98-107) Carbon Dioxide Level 31 mmol/L (21-32) Anion Gap 5 (6-14) Blood Urea Nitrogen 15 mg/dL (7-20) Creatinine 0.6 mg/dL (0.6-1.0) Estimated GFR (Cockcroft-Gault) 103.0 Glucose Level 117 mg/dL (70-99) Calcium Level 8.5 mg/dL (8.5-10.1) Assessment and Plan Assessmemt and Plan Problems Medical Problems: (1) Cardiac arrest Status: Acute (2) Fracture of ribs, multiple Status: Acute (3) Hyperglycemia Status: Acute (4) Pneumonia Status: Acute (5) Pneumothorax, right Status: Acute (6) Sternal fracture Status: Acute (7) VF (ventricular fibrillation) Status: Acute Comment Review of Relevant I have reviewed the following items afua (where applicable) has been applied. Medications: Current Medications Medications (Trade) Dose Ordered Sig/Rosalio Route PRN Reason Start Time Stop Time Status Last Admin Dose Admin Amiodarone HCl (Cordarone) 400 mg DAILY PO 06/20/20 09:00 06/21/20 08:00 Furosemide (Lasix) 40 mg 1X ONCE IVP 06/20/20 13:30 06/20/20 13:31 DC 06/20/20 14:38 Potassium Chloride/Water 100 ml @ 100 mls/hr 1X ONCE IV 06/20/20 13:30 06/20/20 14:29 DC 06/20/20 14:39 Justifications for Admission Other Justification LASHELL SILVER MD Jun 21, 2020 08:25
--- NOTE | 2020-06-21 08:39 | RAD ---
EXAM: XR CHEST 1V INDICATION: Reason: covid neg; sedated on vent 106 / Spl. Instructions: / History: . TECHNIQUE: Single view COMPARISON: 06/20/2020 chest x-ray at 4:29 AM FINDINGS: Patient remains intubated with the ET tube terminating approximately 5.5 cm above the guillermo. An enteric tube passes below the diaphragms. A right subclavian approach central venous catheter terminates near the cavoatrial junction. Heart is borderline enlarged. Unchanged. The great vessels appear unremarkable. There is right perihilar edema that obscures detail. No mass or adenopathy is otherwise identified. Lungs show low lung volumes and interstitial edema asymmetrically on the right with improving aeratio n of the lung with residual left basilar atelectasis or consolidation. Pneumothorax. Blunting of the bilateral costophrenic angles could reflect the presence of small bilat eral pleural effusions. There are no significant osseous abnormalities. IMPRESSION: 1. Stable support devices. 2. Improved aeration of the lung bases with residual left basilar atelectasis or consolidation. 3. Small bilateral pleural effusions. Electronically signed by: Odalis Colon MD (06/21/2020 8:37 AM) [id number]
--- NOTE | 2020-06-21 09:36 | NUR ---
0800 sedation turned off, pt immediately restless and thrashing in bed, coughing on ventilator. opening eyes, not following commands. family at bedside, able to console pt. pt now sleeping comfortably, all VSS, sedation kept off at this time.
--- NOTE | 2020-06-21 09:44 | NUR ---
tube feed held at request of family- says that yesterday pt was coughing on OG tube when unsedated and threw up.
[2020-06-21] MEDS: DEXMEDETOMIDINE 400 MCG in IV NORMAL SALINE 100ML 96 ML IV PRN (10:40)
[2020-06-21] MEDS ORDERED: ATROPINE 0.5 MG/5 ML DISP.SYRINGE. IV PRN (10:45)
[2020-06-21] MEDS ORDERED: IV NORMAL SALINE 500ML BAG 500 ML IV PRN (10:45)
--- NOTE | 2020-06-21 10:52 | PDOC ---
PULMONARY PROGRESS NOTES DATE: 06/21/20 TIME: 10:47 Subjective S/P cardiac arrest 06/17---PEA / V-fib remains on vent support sedation turned off this am, still not awake yet very restless when off sedation, not following commands Vitals Vital Signs Date Time Temp Pulse Resp B/P (MAP) Pulse Ox O2 Delivery O2 Flow Rate FiO2 06/21/20 10:00 73 18 112/60 (77) 98 Ventilator 06/21/20 08:00 98.3 98.3 Comments exam done via tele med intubated , off sedation Extremities: No Edema Labs Laboratory Tests Test 06/19/20 11:23 06/19/20 16:05 06/20/20 00:03 06/20/20 06:00 Glucose (Fingerstick) 121 mg/dL (70-99) 119 mg/dL (70-99) 128 mg/dL (70-99) Prothrombin Time 14.0 SEC (11.7-14.0) Prothromb Time International Ratio 1.1 (0.8-1.1) Sodium Level 139 mmol/L (136-145) 137 mmol/L (136-145) Potassium Level 3.8 mmol/L (3.5-5.1) 3.6 mmol/L (3.5-5.1) Chloride Level 106 mmol/L (98-107) 105 mmol/L (98-107) Carbon Dioxide Level 28 mmol/L (21-32) 27 mmol/L (21-32) Anion Gap 5 (6-14) 5 (6-14) Blood Urea Nitrogen 9 mg/dL (7-20) 12 mg/dL (7-20) Creatinine 0.7 mg/dL (0.6-1.0) 0.4 mg/dL (0.6-1.0) Estimated GFR (Cockcroft-Gault) 86.2 164.5 BUN/Creatinine Ratio 13 (6-20) Glucose Level 120 mg/dL (70-99) 129 mg/dL (70-99) Calcium Level 7.9 mg/dL (8.5-10.1) 7.7 mg/dL (8.5-10.1) Total Bilirubin 0.5 mg/dL (0.2-1.0) Aspartate Amino Transf (AST/SGOT) 49 U/L (15-37) Alanine Aminotransferase (ALT/SGPT) 90 U/L (14-59) Alkaline Phosphatase 49 U/L (46-116) Total Protein 6.0 g/dL (6.4-8.2) Albumin 2.6 g/dL (3.4-5.0) Albumin/Globulin Ratio 0.8 (1.0-1.7) White Blood Count 8.4 x10^3/uL (4.0-11.0) Red Blood Count 3.25 x10^6/uL (3.50-5.40) Hemoglobin 9.9 g/dL (12.0-15.5) Hematocrit 30.0 % (36.0-47.0) Mean Corpuscular Volume 92 fL (79-100) Mean Corpuscular Hemoglobin 30 pg (25-35) Mean Corpuscular Hemoglobin Concent 33 g/dL (31-37) Red Cell Distribution Width 13.3 % (11.5-14.5) Platelet Count 164 x10^3/uL (140-400) Magnesium Level 2.0 mg/dL (1.8-2.4) Test 06/20/20 06:08 06/20/20 08:00 06/20/20 11:20 06/20/20 17:46 Glucose (Fingerstick) 94 mg/dL (70-99) 128 mg/dL (70-99) 118 mg/dL (70-99) O2 Saturation 97 % (92-99) Arterial Blood pH 7.43 (7.35-7.45) Arterial Blood pCO2 at Patient Temp 39 mmHg (35-46) Arterial Blood pO2 at Patient Temp 102 mmHg (75-108) Arterial Blood HCO3 25 mmol/L (21-28) Arterial Blood Base Excess 1 mmol/L (-3-3) FiO2 40/vent Test 06/21/20 00:14 06/21/20 06:40 Glucose (Fingerstick) 111 mg/dL (70-99) White Blood Count 8.1 x10^3/uL (4.0-11.0) Red Blood Count 3.24 x10^6/uL (3.50-5.40) Hemoglobin 9.8 g/dL (12.0-15.5) Hematocrit 29.6 % (36.0-47.0) Mean Corpuscular Volume 91 fL (79-100) Mean Corpuscular Hemoglobin 30 pg (25-35) Mean Corpuscular Hemoglobin Concent 33 g/dL (31-37) Red Cell Distribution Width 13.3 % (11.5-14.5) Platelet Count 186 x10^3/uL (140-400) Sodium Level 139 mmol/L (136-145) Potassium Level 3.5 mmol/L (3.5-5.1) Chloride Level 103 mmol/L (98-107) Carbon Dioxide Level 31 mmol/L (21-32) Anion Gap 5 (6-14) Blood Urea Nitrogen 15 mg/dL (7-20) Creatinine 0.6 mg/dL (0.6-1.0) Estimated GFR (Cockcroft-Gault) 103.0 Glucose Level 117 mg/dL (70-99) Calcium Level 8.5 mg/dL (8.5-10.1) Laboratory Tests Test 06/20/20 11:20 06/20/20 17:46 06/21/20 00:14 06/21/20 06:40 Glucose (Fingerstick) 128 mg/dL (70-99) 118 mg/dL (70-99) 111 mg/dL (70-99) White Blood Count 8.1 x10^3/uL (4.0-11.0) Red Blood Count 3.24 x10^6/uL (3.50-5.40) Hemoglobin 9.8 g/dL (12.0-15.5) Hematocrit 29.6 % (36.0-47.0) Mean Corpuscular Volume 91 fL (79-100) Mean Corpuscular Hemoglobin 30 pg (25-35) Mean Corpuscular Hemoglobin Concent 33 g/dL (31-37) Red Cell Distribution Width 13.3 % (11.5-14.5) Platelet Count 186 x10^3/uL (140-400) Sodium Level 139 mmol/L (136-145) Potassium Level 3.5 mmol/L (3.5-5.1) Chloride Level 103 mmol/L (98-107) Carbon Dioxide Level 31 mmol/L (21-32) Anion Gap 5 (6-14) Blood Urea Nitrogen 15 mg/dL (7-20) Creatinine 0.6 mg/dL (0.6-1.0) Estimated GFR (Cockcroft-Gault) 103.0 Glucose Level 117 mg/dL (70-99) Calcium Level 8.5 mg/dL (8.5-10.1) Medications Active Scripts Medications Dose Route/Sig Max Daily Dose Days Date Category Acetaminophen-Diphenhyd 500-25 (Acetaminophen/Diphenhydramine) 1 Each Tablet 1 Each PO HS PRN 06/18/20 Reported Naproxen 500 Mg Tablet 1 Tab PO BID PRN 30 06/18/20 Reported Tramadol Hcl 50 Mg Tablet 50 Mg PO Q4HRS 06/18/20 Reported Levothyroxine Sodium 75 Mcg Tablet 1 Tab PO DAILY 06/18/20 Reported Adderall 20 Mg Tablet (Dextroamphetamine/Amphetamine) 20 Mg Tablet 1 Tab PO DAILY MDD 1 Tablet(s) 5 06/18/20 Reported Prozac (Fluoxetine Hcl) 20 Mg Capsule 1 Cap PO [id number] 06/18/20 Reported Comments CXR 06/20/20 IMPRESSION: Increased consolidative changes the left lung base may represent degree of small pleural effusion with adjacent compressive atelectasis versus infiltrate. Impression . IMPRESSION: 1. Acute respiratory failure secondary to zws-go-vinvygxr cardiopulmonary arrest.highly suspected anoxic encephalopathy 2. Dul-yh-azrzwtrg ventricular fibrillation and asystole leading to anoxic brain injury. 3. Anoxic encephalopathy. 4. COVID neg 5. Morbid obesity. 6. Leukocytosis--improved 7. Lactic acidosis secondary to pac-cr-gcgxidus cardiac arrest. 8. Abnormal x-ray revealing bibasilar atelectasis, infiltrates. 9. Pneumothorax secondary to CPR.resolved on cxr, no air leak 10. Sternal sternal fracture secondary to CPR. 11. Pneumonia positive, gram-negative, gram-positive. Plan . PLAN: continue current support with assist control ventilation, Fi02 40% off sedation at this time, await for her to awake to assess neurological status , so far no appropriate response Follow CXR/ABG-- no changes Continue Chest tube to suction, no leak Follow ID recs for ABX on zosyn Follow neurology recs Follow Cardiology recs DVT/GI PPX D/W RN and RT Poor prognosis 2/2 anoxic injury d/w son / at bedside 06/20 ANGELA MORENO MD Jun 21, 2020 10:52
--- NOTE | 2020-06-21 10:55 | NUR ---
pt with periods of sleep, when awakes extremely restless. thrashing legs in bed, turning head side to side, out of sync with vent- no movements seem purposeful- 02 sat dropping into 80s as a result. Low dose precedex started for vent compliance;.
--- NOTE | 2020-06-21 11:11 | PDOC ---
JESSE ANTOINE MARKETING EDITOR 06/21/20 1111: CARDIO Progress Notes Date and Time Date of Service 06/21/2020 Time of Evaluation 1000 Subjective Subjective: Other (intubated, vent) Vitals Vitals Vital Signs Date Time Temp Pulse Resp B/P (MAP) Pulse Ox O2 Delivery O2 Flow Rate FiO2 06/21/20 11:00 66 18 107/61 (76) 99 Ventilator 06/21/20 08:00 98.3 98.3 Weight Weight [ ] Input and Output Intake and Output Intake and Output 06/21/20 07:00 Intake Total 2846.9 ml Output Total 4310 ml Balance -1463.1 ml IV Total 776.9 ml Tube Feeding 1570 ml Other 500 ml Output Urine Total 4240 ml Gastric Drainage Total 0 ml Chest Tube Drainage Total 70 ml Laboratory Labs Laboratory Tests Test 06/20/20 11:20 06/20/20 17:46 06/21/20 00:14 06/21/20 06:40 Glucose (Fingerstick) 128 mg/dL (70-99) 118 mg/dL (70-99) 111 mg/dL (70-99) White Blood Count 8.1 x10^3/uL (4.0-11.0) Red Blood Count 3.24 x10^6/uL (3.50-5.40) Hemoglobin 9.8 g/dL (12.0-15.5) Hematocrit 29.6 % (36.0-47.0) Mean Corpuscular Volume 91 fL (79-100) Mean Corpuscular Hemoglobin 30 pg (25-35) Mean Corpuscular Hemoglobin Concent 33 g/dL (31-37) Red Cell Distribution Width 13.3 % (11.5-14.5) Platelet Count 186 x10^3/uL (140-400) Sodium Level 139 mmol/L (136-145) Potassium Level 3.5 mmol/L (3.5-5.1) Chloride Level 103 mmol/L (98-107) Carbon Dioxide Level 31 mmol/L (21-32) Anion Gap 5 (6-14) Blood Urea Nitrogen 15 mg/dL (7-20) Creatinine 0.6 mg/dL (0.6-1.0) Estimated GFR (Cockcroft-Gault) 103.0 Glucose Level 117 mg/dL (70-99) Calcium Level 8.5 mg/dL (8.5-10.1) Microbiology Micro Microbiology 06/17/20 Blood Culture - Preliminary, Resulted NO GROWTH AFTER 4 DAYS Physical Exam HEENT: Neck Supple W Full Motion Chest: Symmetric LUNGS: Other (intubated, vent) Heart: RRR (SR with PVCs) Abdomen: Other (soft) Extremities: No Edema Neurology: other (sedated) Assessment Assessment 1. OOH cardiopulmonary arrest: initially with VT, shock, then asystole. at least 2 pulseless events, unclear duration to ROSC but significantly prolonged per staff with spouse giving about 10 min CPR himself. Received amiodarone. She does not have any known hx of CAD/arrhythmias 2. Acute respiratory failure with possible pneumonia: negative for PE 3. Severe cardiomyopathy: EF 25% 4. Right pneumothorax: due to chest compression 5. ADHD: on adderral but negative on tox screen 6. hypothyroidism: on replacement 7. Marijuana use: + UDS 8. Anoxic encephalopathy: neurology following 9. Acute systolic CHF: better compensated Recommendations 1. Was restless placed back on precedex, awaiting further neuro input. No significant arrhythmias. Continue amiodarone, coreg. 2. ASA and statin. Lasix PRN 3. Poor prognosis with significantly prolonged downtime. Will consider for fur ther ischemic eval if there is meaningful neurological recovery. Discussed with spouse 4. Supportive care Justicifation of Admission Dx: Justifications for Admission: Justification of Admission Dx: N/A NURA MEHTA MD 06/21/201840: CARDIO Progress Notes Assessment Assessment Patient seen and evaluated. I agree with our nurse practitioners assessment and plan. Out of hospital cardiopulmonary arrest: initially with VT, shock, then asystole. at least 2 pulseless events, unclear duration to ROSC but significantly prolonged per staff with spouse giving about 10 min CPR himself. Received amiodarone. Rhythm stable. Acute respiratory failure with possible pneumonia: Remains intubated. Negative for PE. Followed by pulmonary. Severe cardiomyopathy: EF 25%. Continuing medical treatment. Mildly better compensated Right pneumothorax: due to chest compression Anoxic encephalopathy: neurology following JESSE ANTOINE APRN Jun 21, 2020 11:11 NURA MEHTA MD Jun 21, 2020 18:41
[2020-06-21 11:23] LABS: FIO2 ABG 40% VENT
--- NOTE | 2020-06-21 11:45 | PDOC ---
PROGRESS NOTES Date of Service DATE: 06/21/20 TIME: 11:44 Assessment Problems Medical Problems: (1) Cardiac arrest Status: Acute (2) Fracture of ribs, multiple Status: Acute (3) Hyperglycemia Status: Acute (4) Pneumonia Status: Acute (5) Pneumothorax, right Status: Acute (6) Sternal fracture Status: Acute (7) VF (ventricular fibrillation) Status: Acute Anoxic encephalopathy, ventricular fibrillation and asystole Negative for Covid Encouraging that she is restless when off sedation reportedly moves legs more than arms Plan Continue current supportive care No evidence that she had a stroke that requires further investigation, note that she already had head CT and CT angiogram. Will still consider repeat head CT early next week depending on her course Fully discussed with the family EEG will not be helpful, on sedation Subjective none Objective Vital Signs Date Time Temp Pulse Resp B/P (MAP) Pulse Ox O2 Delivery O2 Flow Rate FiO2 06/21/20 11:00 66 18 107/61 (76) 99 Ventilator 06/21/20 08:00 98.3 98.3 Intake and Output 06/21/20 07:00 Intake Total 2846.9 ml Output Total 4310 ml Balance -1463.1 ml IV Total 776.9 ml Tube Feeding 1570 ml Other 500 ml Output Urine Total 4240 ml Gastric Drainage Total 0 ml Chest Tube Drainage Total 70 ml PHYSICAL EXAM Sedated on ventilator PERRL. EOMI. CN: no focal findings. Muscle tone: normal. Muscle strength: No response to pain DTR: 1+ Plantar reflex: Silent Gait: not examined. Sensory exam: Not cooperative Cerebellar: Not cooperative Review of Relevant I have reviewed the following items afua (where applicable) has been applied. Labs Laboratory Tests Test 06/19/20 16:05 06/20/20 00:03 06/20/20 06:00 06/20/20 06:08 Prothrombin Time 14.0 SEC (11.7-14.0) Prothromb Time International Ratio 1.1 (0.8-1.1) Sodium Level 139 mmol/L (136-145) 137 mmol/L (136-145) Potassium Level 3.8 mmol/L (3.5-5.1) 3.6 mmol/L (3.5-5.1) Chloride Level 106 mmol/L (98-107) 105 mmol/L (98-107) Carbon Dioxide Level 28 mmol/L (21-32) 27 mmol/L (21-32) Anion Gap 5 (6-14) 5 (6-14) Blood Urea Nitrogen 9 mg/dL (7-20) 12 mg/dL (7-20) Creatinine 0.7 mg/dL (0.6-1.0) 0.4 mg/dL (0.6-1.0) Estimated GFR (Cockcroft-Gault) 86.2 164.5 BUN/Creatinine Ratio 13 (6-20) Glucose Level 120 mg/dL (70-99) 129 mg/dL (70-99) Calcium Level 7.9 mg/dL (8.5-10.1) 7.7 mg/dL (8.5-10.1) Total Bilirubin 0.5 mg/dL (0.2-1.0) Aspartate Amino Transf (AST/SGOT) 49 U/L (15-37) Alanine Aminotransferase (ALT/SGPT) 90 U/L (14-59) Alkaline Phosphatase 49 U/L (46-116) Total Protein 6.0 g/dL (6.4-8.2) Albumin 2.6 g/dL (3.4-5.0) Albumin/Globulin Ratio 0.8 (1.0-1.7) Glucose (Fingerstick) 119 mg/dL (70-99) 128 mg/dL (70-99) 94 mg/dL (70-99) White Blood Count 8.4 x10^3/uL (4.0-11.0) Red Blood Count 3.25 x10^6/uL (3.50-5.40) Hemoglobin 9.9 g/dL (12.0-15.5) Hematocrit 30.0 % (36.0-47.0) Mean Corpuscular Volume 92 fL (79-100) Mean Corpuscular Hemoglobin 30 pg (25-35) Mean Corpuscular Hemoglobin Concent 33 g/dL (31-37) Red Cell Distribution Width 13.3 % (11.5-14.5) Platelet Count 164 x10^3/uL (140-400) Magnesium Level 2.0 mg/dL (1.8-2.4) Test 06/20/20 08:00 06/20/20 11:20 06/20/20 17:46 06/21/20 00:14 O2 Saturation 97 % (92-99) Arterial Blood pH 7.43 (7.35-7.45) Arterial Blood pCO2 at Patient Temp 39 mmHg (35-46) Arterial Blood pO2 at Patient Temp 102 mmHg (75-108) Arterial Blood HCO3 25 mmol/L (21-28) Arterial Blood Base Excess 1 mmol/L (-3-3) FiO2 40/vent Glucose (Fingerstick) 128 mg/dL (70-99) 118 mg/dL (70-99) 111 mg/dL (70-99) Test 06/21/20 06:40 06/21/20 08:00 White Blood Count 8.1 x10^3/uL (4.0-11.0) Red Blood Count 3.24 x10^6/uL (3.50-5.40) Hemoglobin 9.8 g/dL (12.0-15.5) Hematocrit 29.6 % (36.0-47.0) Mean Corpuscular Volume 91 fL (79-100) Mean Corpuscular Hemoglobin 30 pg (25-35) Mean Corpuscular Hemoglobin Concent 33 g/dL (31-37) Red Cell Distribution Width 13.3 % (11.5-14.5) Platelet Count 186 x10^3/uL (140-400) Sodium Level 139 mmol/L (136-145) Potassium Level 3.5 mmol/L (3.5-5.1) Chloride Level 103 mmol/L (98-107) Carbon Dioxide Level 31 mmol/L (21-32) Anion Gap 5 (6-14) Blood Urea Nitrogen 15 mg/dL (7-20) Creatinine 0.6 mg/dL (0.6-1.0) Estimated GFR (Cockcroft-Gault) 103.0 Glucose Level 117 mg/dL (70-99) Calcium Level 8.5 mg/dL (8.5-10.1) O2 Saturation 97 % (92-99) Arterial Blood pH 7.48 (7.35-7.45) Arterial Blood pCO2 at Patient Temp 40 mmHg (35-46) Arterial Blood pO2 at Patient Temp 102 mmHg (75-108) Arterial Blood HCO3 29 mmol/L (21-28) Arterial Blood Base Excess 5 mmol/L (-3-3) FiO2 40% vent Laboratory Tests Test 06/20/20 17:46 06/21/20 00:14 06/21/20 06:40 06/21/20 08:00 Glucose (Fingerstick) 118 mg/dL (70-99) 111 mg/dL (70-99) White Blood Count 8.1 x10^3/uL (4.0-11.0) Red Blood Count 3.24 x10^6/uL (3.50-5.40) Hemoglobin 9.8 g/dL (12.0-15.5) Hematocrit 29.6 % (36.0-47.0) Mean Corpuscular Volume 91 fL (79-100) Mean Corpuscular Hemoglobin 30 pg (25-35) Mean Corpuscular Hemoglobin Concent 33 g/dL (31-37) Red Cell Distribution Width 13.3 % (11.5-14.5) Platelet Count 186 x10^3/uL (140-400) Sodium Level 139 mmol/L (136-145) Potassium Level 3.5 mmol/L (3.5-5.1) Chloride Level 103 mmol/L (98-107) Carbon Dioxide Level 31 mmol/L (21-32) Anion Gap 5 (6-14) Blood Urea Nitrogen 15 mg/dL (7-20) Creatinine 0.6 mg/dL (0.6-1.0) Estimated GFR (Cockcroft-Gault) 103.0 Glucose Level 117 mg/dL (70-99) Calcium Level 8.5 mg/dL (8.5-10.1) O2 Saturation 97 % (92-99) Arterial Blood pH 7.48 (7.35-7.45) Arterial Blood pCO2 at Patient Temp 40 mmHg (35-46) Arterial Blood pO2 at Patient Temp 102 mmHg (75-108) Arterial Blood HCO3 29 mmol/L (21-28) Arterial Blood Base Excess 5 mmol/L (-3-3) FiO2 40% vent Microbiology 06/17/20 Blood Culture - Preliminary, Resulted NO GROWTH AFTER 4 DAYS Medications Current Medications Amiodarone HCl 150 mg/Dextrose 103 ml @ 618 mls/hr 1X ONCE IV Last administered on 06/17/20at 07:00; Start 06/17/20 at 07:00; Stop 06/17/20 at 07:09; Status DC Amiodarone HCl 450 mg/Dextrose 259 ml @ 33 mls/hr 1X ONCE IV ; Start 06/17/20 at 07:00; Stop 06/17/20 at 14:50; Status DC Sodium Chloride 1,000 ml @ 1,000 mls/hr 1X ONCE IV Last administered on 06/17/20at 08:11; Start 06/17/20 at 07:15; Stop 06/17/20 at 08:14; Status DC Midazolam HCl 100 ml @ 0 mls/hr 1X ONCE IV ; Start 06/17/20 at 07:15; Stop 06/17/20 at 07:16; Status DC Midazolam HCl (Versed) 5 mg STK-MED ONCE .ROUTE ; Start 06/17/20 at 07:17; Stop 06/17/20 at 07:17; Status DC Iohexol (Omnipaque 300 Mg/ml) 75 ml 1X ONCE IV Last administered on 06/17/20at 08:17; Start 06/17/20 at 08:15; Stop 06/17/20 at 08:16; Status DC Iohexol (Omnipaque 350 Mg/ml) 100 ml 1X ONCE IV Last administered on 06/17/20at 08:17; Start 06/17/20 at 08:15; Stop 06/17/20 at 08:16; Status DC Info (CONTRAST GIVEN -- Rx MONITORING) 1 each PRN DAILY PRN MC SEE COMMENTS; Start 06/17/20 at 08:15; Stop 06/19/20 at 08:14; Status DC Sodium Chloride 1,000 ml @ 1,000 mls/hr 1X ONCE IV Last administered on 06/17/20at 08:25; Start 06/17/20 at 08:15; Stop 06/17/20 at 09:14; Status DC Potassium Chloride/Water 100 ml @ 50 mls/hr 1X ONCE IV Last administered on 06/17/20at 10:16; Start 06/17/20 at 09:00; Stop 06/17/20 at 10:59; Status DC Piperacillin Sod/ Tazobactam Sod (Zosyn Per Pharmacy) 1 each PRN DAILY PRN MC SEE COMMENTS; Start 06/17/20 at 08:45 Piperacillin Sod/ Tazobactam Sod 4.5 gm/Sodium Chloride 100 ml @ 200 mls/hr 1X ONCE IV Last administered on 06/17/20at 10:15; Start 06/17/20 at 08:45; Stop 06/17/20 at 09:14; Status DC Sodium Chloride 1,000 ml @ 125 mls/hr Q8H IV Last administered on 06/17/20at 23:39; Start 06/17/20 at 09:00; Stop 06/18/20 at 08:59; Status DC Propofol (Diprivan) 200 mg 1X ONCE IV Last administered on 06/17/20at 09:00; Start 06/17/20 at 09:00; Stop 06/17/20 at 09:01; Status DC Propofol 100 ml @ As Directed STK-MED ONCE IV ; Start 06/17/20 at 09:05; Stop 06/17/20 at 09:05; Status DC Lidocaine HCl (Lidocaine 1% 20ml Vial) 20 ml 1X ONCE INJ Last administered on 06/17/20at 09:15; Start 06/17/20 at 09:15; Stop 06/17/20 at 09:20; Status DC Lidocaine HCl (Xylocaine-Mpf 1% 5ml Vial) 5 ml STK-MED ONCE .ROUTE ; Start 06/17/20 at 09:26; Stop 06/17/20 at 09:26; Status DC Sodium Chloride 1,000 ml @ 1,000 mls/hr 1X ONCE IV Last administered on 06/17/20at 10:15; Start 06/17/20 at 10:15; Stop 06/17/20 at 11:14; Status DC Propofol 100 ml @ 3.819 mls/ hr CONT PRN IV PER PROTOCOL Last administered on 06/21/20at 05:16; Start 06/17/20 at 10:45 Fentanyl Citrate (Fentanyl 2ml Vial) 100 mcg 1X ONCE IV ; Start 06/17/20 at 12:00; Stop 06/17/20 at 12:39; Status DC Midazolam HCl (Versed) 2 mg 1X ONCE IV ; Start 06/17/20 at 12:00; Stop 06/17/20 at 12:39; Status DC Magnesium Sulfate/ Dextrose 100 ml @ 100 mls/hr 1X ONCE IV Last administered on 06/17/20at 12:22; Start 06/17/20 at 12:00; Stop 06/17/20 at 12:39; Status DC Buspirone HCl (Buspar) 30 mg Q8H NG Last administered on 06/17/20at 12:31; Start 06/17/20 at 12:00; Stop 06/17/20 at 12:39; Status DC Glycerin/ Hypromellose/ Polyethylene (Artificial Tears) 1 drop Q6HRS OU ; Start 06/17/20 at 12:00; Stop 06/17/20 at 12:39; Status DC Glycerin/ Hypromellose/ Polyethylene (Artificial Tears) 1 drop PRN Q15MIN PRN OU DRY EYE; Start 06/17/20 at 12:00; Stop 06/17/20 at 12:39; Status DC Heparin Sodium (Porcine) (Heparin Sodium) 5,000 unit BID SQ ; Start 06/17/20 at 21:00; Stop 06/17/20 at 12:39; Status DC Pantoprazole Sodium (PROTONIX VIAL for IV PUSH) 40 mg DAILY IVP ; Start 06/18/20 at 09:00; Stop 06/17/20 at 12:39; Status DC Fentanyl Citrate 30 ml @ 0 mls/hr CONT PRN IV PER PROTOCOL.; Start 06/17/20 at 12:00; Stop 06/17/20 at 12:39; Status DC Propofol 100 ml @ 0 mls/hr CONT PRN IV PER PROTOCOL.; Start 06/17/20 at 12:00; Stop 06/17/20 at 12:39; Status DC Midazolam HCl 100 ml @ 0 mls/hr CONT PRN IV PER PROTOCOL; Start 06/17/20 at 12:00; Stop 06/17/20 at 12:39; Status DC Vecuronium [place] (Norcuron Bolus) 10 mg PRN Q1HR PRN IV SHIVERING; Start 06/17/20 at 12:00; Stop 06/17/20 at 12:39; Status DC Piperacillin Sod/ Tazobactam Sod 4.5 gm/Sodium Chloride 100 ml @ 200 mls/hr 1X ONCE IV ; Start 06/17/20 at 12:15; Stop 06/17/20 at 12:44; Status Cancel Midazolam HCl (Versed) 5 mg Q1HR PRN IV SEDATION Last administered on 06/18/20at 19:57; Start 06/17/20 at 12:45 Fentanyl Citrate (Fentanyl 2ml Vial) 100 mcg Q1HR IVP Last administered on 06/17/20at 18:55; Start 06/17/20 at 13:00; Stop 06/17/20 at 23:41; Status DC Piperacillin Sod/ Tazobactam Sod 3.375 gm/Sodium Chloride 50 ml @ 100 mls/hr Q6H IV Last administered on 06/21/20at 06:29; Start 06/17/20 at 16:00 Potassium Bicarbonate (Potassium Effervescent Tablet) 40 meq 1X ONCE NG Last administered on 06/18/20at 10:00; Start 06/18/20 at 09:45; Stop 06/18/20 at 09:48; Status DC Albuterol/ Ipratropium (Duoneb) 3 ml RTQID NEB Last administered on 06/21/20at 08:08; Start 06/18/20 at 20:00 Famotidine (Pepcid Vial) 20 mg BID IVP Last administered on 06/21/20at 07:59; Start 06/18/20 at 21:00 Enoxaparin Sodium (Lovenox 40mg Syringe) 40 mg Q24H SQ Last administered on 06/20/20at 20:57; Start 06/18/20 at 21:00 Levothyroxine Sodium (Synthroid) 75 mcg DAILY06 PO Last administered on 06/21/20 06:29; Start 06/18/20 at 21:00 Fentanyl Citrate 30 ml @ 0 mls/hr CONT PRN IV SEE PROTOCOL Last administered on 06/20/20at 07:54; Start 06/18/20 at 20:15 Carvedilol (Coreg) 3.125 mg BIDWMEALS PO Last administered on 06/21/20at 08:00; Start 06/19/20 at 17:00 Atorvastatin Calcium (Lipitor) 20 mg QHS PO Last administered on 06/20/20 20:57; Start 06/19/20 at 21:00 Aspirin (Aspirin Chewable) 81 mg DAILYWBKFT PO Last administered on 06/21/20 07:59; Start 06/20/20 at 08:00 Aspirin (Aspirin Chewable) 81 mg 1X ONCE PO Last administered on 06/19/20 15:57; Start 06/19/20 at 15:30; Stop 06/19/20 at 15:37; Status DC Potassium Chloride/Water 100 ml @ 100 mls/hr 1X ONCE IV Last administered on 1/5/21at 15:57; Start 06/19/20 at 15:30; Stop 06/19/20 at 16:29; Status DC Amiodarone HCl (Cordarone) 400 mg DAILY PO Last administered on 06/21/20at 08:00; Start 06/20/20 at 09:00 Furosemide (Lasix) 40 mg 1X ONCE IVP Last administered on 06/20/20at 14:38; Start 06/20/20 at 13:30; Stop 06/20/20 at 13:31; Status DC Potassium Chloride/Water 100 ml @ 100 mls/hr 1X ONCE IV Last administered on 06/20/20at 14:39; Start 06/20/20 at 13:30; Stop 06/20/20 at 14:29; Status DC Dexmedetomidine HCl 400 mcg/ Sodium Chloride 100 ml @ 0 mls/hr CONT PRN IV PER PROTOCOL Last administered on 06/21/20at 10:40; Start 06/21/20 at 10:45 Sodium Chloride 500 ml @ 500 mls/hr 1X PRN PRN IV SEE COMMENTS; Start 06/21/20 at 10:45 Atropine Sulfate (ATROPINE 0.5mg SYRINGE) 0.5 mg PRN Q5MIN PRN IV SEE COMMENTS; Start 06/21/20 at 10:45 Active Scripts Active Reported Acetaminophen-Diphenhyd 500-25 (Acetaminophen/Diphenhydramine) 1 Each Tablet 1 Each PO HS PRN Naproxen 500 Mg Tablet 1 Tab PO BID PRN 30 Days Tramadol Hcl 50 Mg Tablet 50 Mg PO Q4HRS Levothyroxine Sodium 75 Mcg Tablet 1 Tab PO DAILY Adderall 20 Mg Tablet (Dextroamphetamine/Amphetamine) 20 Mg Tablet 1 Tab PO DAILY MDD 1 Tablet(s) 5 Days Prozac (Fluoxetine Hcl) 20 Mg Capsule 1 Cap PO DAILYWBKFT Vitals/I & O Vital Sign - Last 24 Hours 06/20/20 06/20/20 06/20/20 06/20/20 12:00 13:00 14:00 15:00 Temp 98.4 98.4 Pulse 72 74 75 92 Resp 18 18 18 18 B/P (MAP) 135/75 (95) 129/69 (89) 124/72 (89) 153/89 (110) Pulse Ox 98 97 97 96 O2 Delivery Ventilator Ventilator Ventilator Ventilator 1/12/0306/20/20 06/20/20 06/20/20 15:41 16:00 16:20 17:00 Temp 98.1 98.1 Pulse 87 77 Resp 18 18 B/P (MAP) 110/72 (85) 105/65 (78) Pulse Ox 100 100 98 O2 Delivery Mechanical Ventilator Ventilator Ventilator Ventilator 06/20/20 06/20/20 06/20/20 06/20/20 17:07 17:51 19:00 20:00 Pulse 77 73 70 Resp 18 18 B/P (MAP) 112/70 97/63 (74) 111/68 (82) Pulse Ox 100 100 O2 Delivery Ventilator Ventilator Mechanical Ventilator 06/20/20 06/20/20 06/20/20 06/20/20 20:00 20:50 21:00 22:00 Temp 99.5 99.5 Pulse 68 76 74 Resp 18 18 18 B/P (MAP) 109/73 (85) 105/57 (73) 109/66 (80) Pulse Ox 100 100 100 98 O2 Delivery Ventilator Ventilator Ventilator Ventilator 06/20/20 06/20/20 06/20/20 06/21/20 23:00 23:59 23:59 00:31 Temp 98.4 98.4 Pulse 77 84 Resp 18 18 B/P (MAP) 106/64 (78) 126/74 (91) Pulse Ox 99 99 98 O2 Delivery Ventilator Mechanical Ventilator Ventilator Ventilator 06/21/20 06/21/20 06/21/20 06/21/20 01:00 02:00 03:00 04:00 Pulse 75 74 64 Resp 18 18 18 B/P (MAP) 100/63 (75) 115/74 (88) 107/66 (80) Pulse Ox 99 99 98 O2 Delivery Ventilator Ventilator Ventilator Mechanical Ventilator 06/21/20 06/21/20 06/21/20 06/21/20 05:49 07:00 08:00 08:00 Pulse 66 80 69 Resp 18 B/P (MAP) 113/72 (86) 126/64 98/60 Pulse Ox 99 98 O2 Delivery Ventilator Ventilator 06/21/20 06/21/20 06/21/20 06/21/20 08:00 08:00 08:08 09:00 Temp 98.3 98.3 Pulse 66 82 Resp 18 18 B/P (MAP) 97/60 (72) 126/64 (84) Pulse Ox 99 99 99 O2 Delivery Mechanical Ventilator Ventilator Ventilator Ventilator 06/21/20 06/21/20 10:00 11:00 Pulse 73 66 Resp 18 18 B/P (MAP) 112/60 (77) 107/61 (76) Pulse Ox 98 99 O2 Delivery Ventilator Ventilator Intake and Output 06/20/20 06/20/20 06/21/20 15:00 23:00 07:00 Intake Total 340.3 ml 858.6 ml 1648 ml Output Total 730 ml 2960 ml 620 ml Balance -389.7 ml -2101.4 ml 1028 ml Justicifation of Admission Dx: Justifications for Admission: Justification of Admission Dx: N/A JEFF FLORES MD Jun 21, 2020 11:45
--- NOTE | 2020-06-21 16:15 | NUR ---
SS following up with discharge planning. SS reviewed pt chart and discussed with pt RN. Pt is currently on the vent at 40%. COVID19 negative. Pt on IV Zosyn. Currently sedated. Not stable. Self pay. SS will continue to follow for discharge planning.
[2020-06-21] MEDS: ATORVASTATIN CALCIUM 20 MG TABLET PO SCH (20:18)
[2020-06-21] MEDS: ENOXAPARIN 40 MG/0.4 ML SYRINGE. SQ SCH (23:01)
[2020-06-22] VITALS (24 sets, daily range): BP systolic 92–166; BP diastolic 53–91
[2020-06-22] MEDS: PIPERACILLIN/TAZOBACTAM 3.375 GM in IV NORMAL SALINE 50ML 50 ML IV SCH ×5 (00:31→23:27)
[2020-06-22] MEDS: PROPOFOL 100 ML IV PRN ×3 (01:20→10:57)
[2020-06-22] MEDS: LEVOTHYROXINE 75 MCG TABLET PO SCH (06:15)
[2020-06-22] MEDS: IPRATRPIUM/ALBUTEROL 0.5/2.5MG 3 ML NEBU. NEB SCH ×4 (07:55→20:33)
--- NOTE | 2020-06-22 07:59 | PDOC ---
Infectious Disease Note Subjective Subjective pt is intubated on vent pt moves , at times agitated, no purposeful movement ROS ROS no n/v/d/fever Vital Sign Vital Signs Vital Signs Date Time Temp Pulse Resp B/P (MAP) Pulse Ox O2 Delivery O2 Flow Rate FiO2 06/22/20 07:00 72 18 113/63 (80) 98 Ventilator 06/22/20 04:00 98.8 98.8 06/21/20 16:02 15.0 Physical Exam PHYSICAL EXAM GENERAL: Sedated, orally intubated female, not in distress. VITAL SIGNS: Stable. HEENT: Both pupils are round and reacting. No conjunctival lesion. Mouth cannot be visualized, orally intubated. NECK: Supple. No JVP, no lymphadenopathy. LUNGS: Decreased breath sounds bilaterally. HEART: S1, S2, regular. No gallop or murmur. ABDOMEN: Soft, nontender. No organomegaly. EXTREMITIES: No edema or cyanosis. SKIN: Unremarkable. NEUROLOGICAL: The patient is sedated, orally intubated. Labs Lab Laboratory Tests Test 06/21/20 08:00 O2 Saturation 97 % (92-99) Arterial Blood pH 7.48 (7.35-7.45) Arterial Blood pCO2 at Patient Temp 40 mmHg (35-46) Arterial Blood pO2 at Patient Temp 102 mmHg (75-108) Arterial Blood HCO3 29 mmol/L (21-28) Arterial Blood Base Excess 5 mmol/L (-3-3) FiO2 40% vent Micro Microbiology 06/17/20 Blood Culture - Preliminary, Resulted NO GROWTH AFTER 1 DAY Objective Assessment IMPRESSION: 1. Cardiopulmonary arrest at home. 2. Leukocytosis, likely reactive. 3. Lactic acidosis from #1. 4. Respiratory failure. suspected aspiration 5. Suspected anoxic brain injury. 6. Hypertension. 7. Pneumothorax. 8. Rib fracture and sternal fracture. Plan Plan of Care covid neg culture neg cont antibiotics cont supportive care d/w Dr Olivera d/w family/ and son POPPY RENAE Jun 22, 2020 07:59
[2020-06-22] MEDS: ASPIRIN CHEWABLE 81 MG TABLET. PO SCH (08:00)
[2020-06-22 08:13] LABS: BASE EXCESS ABG 2 mmol/L (-3-3); HCO3 ABG 27 mmol/L (21-28); PCO2 ABG 44 mmHg (35-46); PO2 ABG 73 mmHg (75-108); SAT O2 ABG 94 % (92-99)
[2020-06-22 08:52] LABS: FIO2 ABG 40%
[2020-06-22] MEDS: CARVEDILOL 3.125 MG TABLET. PO SCH ×2 (08:53→17:00)
[2020-06-22] MEDS: AMIODARONE HCL 200 MG TABLET. PO SCH (08:54)
[2020-06-22] MEDS: FAMOTIDINE 20 MG/2 ML VIAL IVP SCH ×2 (08:54→21:08)
--- NOTE | 2020-06-22 08:56 | PDOC ---
PROGRESS NOTES Date of Service DATE: 06/22/20 TIME: 08:54 Assessment Problems Medical Problems: (1) Cardiac arrest Status: Acute (2) Fracture of ribs, multiple Status: Acute (3) Hyperglycemia Status: Acute (4) Pneumonia Status: Acute (5) Pneumothorax, right Status: Acute (6) Sternal fracture Status: Acute (7) VF (ventricular fibrillation) Status: Acute Anoxic encephalopathy, ventricular fibrillation and asystole, improving Negative for Covid Plan Try to extubate Supportive care Holding on additional neurological tests Discussed with family Neurology will see only as needed this weekend Subjective None Objective Vital Signs Date Time Temp Pulse Resp B/P (MAP) Pulse Ox O2 Delivery O2 Flow Rate FiO2 06/22/20 08:20 95 06/22/20 07:55 Ventilator 06/22/20 07:00 72 18 113/63 (80) 06/22/20 04:00 98.8 98.8 06/21/20 16:02 15.0 Intake and Output 06/22/20 07:00 Intake Total 1364.8 ml Output Total 1520 ml Balance -155.2 ml IV Total 889.8 ml Tube Feeding 375 ml Other 100 ml Output Urine Total 1370 ml Gastric Drainage Total 100 ml Chest Tube Drainage Total 50 ml PHYSICAL EXAM Alert, regards family with her eyes, withdraws appropriately PERRL. EOMI. CN: no focal findings. Muscle tone: normal. Muscle strength: Moving arms and legs DTR: 1+ Plantar reflex: Flexor Gait: not examined. Sensory exam: Not cooperative Cerebellar: Not cooperative Review of Relevant I have reviewed the following items afua (where applicable) has been applied. Labs Laboratory Tests Test 06/20/20 11:20 06/20/20 17:46 06/21/20 00:14 06/21/20 06:40 Glucose (Fingerstick) 128 mg/dL (70-99) 118 mg/dL (70-99) 111 mg/dL (70-99) White Blood Count 8.1 x10^3/uL (4.0-11.0) Red Blood Count 3.24 x10^6/uL (3.50-5.40) Hemoglobin 9.8 g/dL (12.0-15.5) Hematocrit 29.6 % (36.0-47.0) Mean Corpuscular Volume 91 fL (79-100) Mean Corpuscular Hemoglobin 30 pg (25-35) Mean Corpuscular Hemoglobin Concent 33 g/dL (31-37) Red Cell Distribution Width 13.3 % (11.5-14.5) Platelet Count 186 x10^3/uL (140-400) Sodium Level 139 mmol/L (136-145) Potassium Level 3.5 mmol/L (3.5-5.1) Chloride Level 103 mmol/L (98-107) Carbon Dioxide Level 31 mmol/L (21-32) Anion Gap 5 (6-14) Blood Urea Nitrogen 15 mg/dL (7-20) Creatinine 0.6 mg/dL (0.6-1.0) Estimated GFR (Cockcroft-Gault) 103.0 Glucose Level 117 mg/dL (70-99) Calcium Level 8.5 mg/dL (8.5-10.1) Test 06/21/20 08:00 06/22/20 08:10 O2 Saturation 97 % (92-99) 94 % (92-99) Arterial Blood pH 7.48 (7.35-7.45) 7.40 (7.35-7.45) Arterial Blood pCO2 at Patient Temp 40 mmHg (35-46) 44 mmHg (35-46) Arterial Blood pO2 at Patient Temp 102 mmHg (75-108) 73 mmHg (75-108) Arterial Blood HCO3 29 mmol/L (21-28) 27 mmol/L (21-28) Arterial Blood Base Excess 5 mmol/L (-3-3) 2 mmol/L (-3-3) FiO2 40% vent 40% Laboratory Tests Test 06/22/20 08:10 O2 Saturation 94 % (92-99) Arterial Blood pH 7.40 (7.35-7.45) Arterial Blood pCO2 at Patient Temp 44 mmHg (35-46) Arterial Blood pO2 at Patient Temp 73 mmHg (75-108) Arterial Blood HCO3 27 mmol/L (21-28) Arterial Blood Base Excess 2 mmol/L (-3-3) FiO2 40% Microbiology 06/17/20 Blood Culture - Preliminary, Resulted NO GROWTH AFTER 4 DAYS Medications Current Medications Amiodarone HCl 150 mg/Dextrose 103 ml @ 618 mls/hr 1X ONCE IV Last administ ered on 06/17/20at 07:00; Start 06/17/20 at 07:00; Stop 06/17/20 at 07:09; Status DC Amiodarone HCl 450 mg/Dextrose 259 ml @ 33 mls/hr 1X ONCE IV ; Start 06/17/20 at 07:00; Stop 06/17/20 at 14:50; Status DC Sodium Chloride 1,000 ml @ 1,000 mls/hr 1X ONCE IV Last administered on 06/17/20at 08:11; Start 06/17/20 at 07:15; Stop 06/17/20 at 08:14; Status DC Midazolam HCl 100 ml @ 0 mls/hr 1X ONCE IV ; Start 06/17/20 at 07:15; Stop 06/17/20 at 07:16; Status DC Midazolam HCl (Versed) 5 mg STK-MED ONCE .ROUTE ; Start 06/17/20 at 07:17; Stop 06/17/20 at 07:17; Status DC Iohexol (Omnipaque 300 Mg/ml) 75 ml 1X ONCE IV Last administered on 06/17/20at 08:17; Start 06/17/20 at 08:15; Stop 06/17/20 at 08:16; Status DC Iohexol (Omnipaque 350 Mg/ml) 100 ml 1X ONCE IV Last administered on 06/17/20at 08:17; Start 06/17/20 at 08:15; Stop 06/17/20 at 08:16; Status DC Info (CONTRAST GIVEN -- Rx MONITORING) 1 each PRN DAILY PRN MC SEE COMMENTS; Start 06/17/20 at 08:15; Stop 06/19/20 at 08:14; Status DC Sodium Chloride 1,000 ml @ 1,000 mls/hr 1X ONCE IV Last administered on 06/17/20at 08:25; Start 06/17/20 at 08:15; Stop 06/17/20 at 09:14; Status DC Potassium Chloride/Water 100 ml @ 50 mls/hr 1X ONCE IV Last administered on 06/17/20at 10:16; Start 06/17/20 at 09:00; Stop 06/17/20 at 10:59; Status DC Piperacillin Sod/ Tazobactam Sod (Zosyn Per Pharmacy) 1 each PRN DAILY PRN MC SEE COMMENTS; Start 06/17/20 at 08:45 Piperacillin Sod/ Tazobactam Sod 4.5 gm/Sodium Chloride 100 ml @ 200 mls/hr 1X ONCE IV Last administered on 06/17/20at 10:15; Start 06/17/20 at 08:45; Stop 06/17/20 at 09:14; Status DC Sodium Chloride 1,000 ml @ 125 mls/hr Q8H IV Last administered on 06/17/20at 23:39; Start 06/17/20 at 09:00; Stop 06/18/20 at 08:59; Status DC Propofol (Diprivan) 200 mg 1X ONCE IV Last administered on 06/17/20at 09:00; Start 06/17/20 at 09:00; Stop 06/17/20 at 09:01; Status DC Propofol 100 ml @ As Directed STK-MED ONCE IV ; Start 06/17/20 at 09:05; Stop 06/17/20 at 09:05; Status DC Lidocaine HCl (Lidocaine 1% 20ml Vial) 20 ml 1X ONCE INJ Last administered on 06/17/20at 09:15; Start 06/17/20 at 09:15; Stop 06/17/20 at 09:20; Status DC Lidocaine HCl (Xylocaine-Mpf 1% 5ml Vial) 5 ml STK-MED ONCE .ROUTE ; Start 06/17/20 at 09:26; Stop 06/17/20 at 09:26; Status DC Sodium Chloride 1,000 ml @ 1,000 mls/hr 1X ONCE IV Last administered on 06/17/20at 10:15; Start 06/17/20 at 10:15; Stop 06/17/20 at 11:14; Status DC Propofol 100 ml @ 3.819 mls/ hr CONT PRN IV PER PROTOCOL Last administered on 06/22/20at 05:24; Start 06/17/20 at 10:45 Fentanyl Citrate (Fentanyl 2ml Vial) 100 mcg 1X ONCE IV ; Start 06/17/20 at 12:00; Stop 06/17/20 at 12:39; Status DC Midazolam HCl (Versed) 2 mg 1X ONCE IV ; Start 06/17/20 at 12:00; Stop 06/17/20 at 12:39; Status DC Magnesium Sulfate/ Dextrose 100 ml @ 100 mls/hr 1X ONCE IV Last administered on 06/17/20at 12:22; Start 06/17/20 at 12:00; Stop 06/17/20 at 12:39; Status DC Buspirone HCl (Buspar) 30 mg Q8H NG Last administered on 06/17/20at 12:31; Start 06/17/20 at 12:00; Stop 06/17/20 at 12:39; Status DC Glycerin/ Hypromellose/ Polyethylene (Artificial Tears) 1 drop Q6HRS OU ; Start 06/17/20 at 12:00; Stop 06/17/20 at 12:39; Status DC Glycerin/ Hypromellose/ Polyethylene (Artificial Tears) 1 drop PRN Q15MIN PRN OU DRY EYE; Start 06/17/20 at 12:00; Stop 06/17/20 at 12:39; Status DC Heparin Sodium (Porcine) (Heparin Sodium) 5,000 unit BID SQ ; Start 06/17/20 at 21:00; Stop 06/17/20 at 12:39; Status DC Pantoprazole Sodium (PROTONIX VIAL for IV PUSH) 40 mg DAILY IVP ; Start 06/18/20 at 09:00; Stop 06/17/20 at 12:39; Status DC Fentanyl Citrate 30 ml @ 0 mls/hr CONT PRN IV PER PROTOCOL.; Start 06/17/20 at 12:00; Stop 06/17/20 at 12:39; Status DC Propofol 100 ml @ 0 mls/hr CONT PRN IV PER PROTOCOL.; Start 06/17/20 at 12:00; Stop 06/17/20 at 12:39; Status DC Midazolam HCl 100 ml @ 0 mls/hr CONT PRN IV PER PROTOCOL; Start 06/17/20 at 12:00; Stop 06/17/20 at 12:39; Status DC Vecuronium [place] (Norcuron Bolus) 10 mg PRN Q1HR PRN IV SHIVERING; Start 06/17/20 at 12:00; Stop 06/17/20 at 12:39; Status DC Piperacillin Sod/ Tazobactam Sod 4.5 gm/Sodium Chloride 100 ml @ 200 mls/hr 1X ONCE IV ; Start 06/17/20 at 12:15; Stop 06/17/20 at 12:44; Status Cancel Midazolam HCl (Versed) 5 mg Q1HR PRN IV SEDATION Last administered on 06/18/20at 19:57; Start 06/17/20 at 12:45 Fentanyl Citrate (Fentanyl 2ml Vial) 100 mcg Q1HR IVP Last administered on 06/17/20at 18:55; Start 06/17/20 at 13:00; Stop 06/17/20 at 23:41; Status DC Piperacillin Sod/ Tazobactam Sod 3.375 gm/Sodium Chloride 50 ml @ 100 mls/hr Q6H IV Last administered on 06/22/20at 06:16; Start 06/17/20 at 16:00 Potassium Bicarbonate (Potassium Effervescent Tablet) 40 meq 1X ONCE NG Last administered on 06/18/20at 10:00; Start 06/18/20 at 09:45; Stop 06/18/20 at 09:48; Status DC Albuterol/ Ipratropium (Duoneb) 3 ml RTQID NEB Last administered on 06/22/20at 07:55; Start 06/18/20 at 20:00 Famotidine (Pepcid Vial) 20 mg BID IVP Last administered on 06/21/20at 20:18; Start 06/18/20 at 21:00 Enoxaparin Sodium (Lovenox 40mg Syringe) 40 mg Q24H SQ Last administered on 06/21/20at 23:01; Start 06/18/20 at 21:00 Levothyroxine Sodium (Synthroid) 75 mcg DAILY06 PO Last administered on 06/22/20 06:15; Start 06/18/20 at 21:00 Fentanyl Citrate 30 ml @ 0 mls/hr CONT PRN IV SEE PROTOCOL Last administered on 06/21/20at 15:32; Start 06/18/20 at 20:15 Carvedilol (Coreg) 3.125 mg BIDWMEALS PO Last administered on 06/21/20 16:51; Start 06/19/20 at 17:00 Atorvastatin Calcium (Lipitor) 20 mg QHS PO Last administered on 06/21/20 20:18; Start 06/19/20 at 21:00 Aspirin (Aspirin Chewable) 81 mg DAILYWBKFT PO Last administered on 06/22/20at 08:00; Start 06/20/20 at 08:00 Aspirin (Aspirin Chewable) 81 mg 1X ONCE PO Last administered on 06/19/20at 15:57; Start 06/19/20 at 15:30; Stop 06/19/20 at 15:37; Status DC Potassium Chloride/Water 100 ml @ 100 mls/hr 1X ONCE IV Last administered on 06/19/20at 15:57; Start 06/19/20 at 15:30; Stop 06/19/20 at 16:29; Status DC Amiodarone HCl (Cordarone) 400 mg DAILY PO Last administered on 06/21/20at 08:00; Start 06/20/20 at 09:00 Furosemide (Lasix) 40 mg 1X ONCE IVP Last administered on 06/20/20at 14:38; Start 06/20/20 at 13:30; Stop 06/20/20 at 13:31; Status DC Potassium Chloride/Water 100 ml @ 100 mls/hr 1X ONCE IV Last administered on 06/20/20at 14:39; Start 06/20/20 at 13:30; Stop 06/20/20 at 14:29; Status DC Dexmedetomidine HCl 400 mcg/ Sodium Chloride 100 ml @ 0 mls/hr CONT PRN IV PER PROTOCOL Last administered on 06/21/20at 10:40; Start 06/21/20 at 10:45 Sodium Chloride 500 ml @ 500 mls/hr 1X PRN PRN IV SEE COMMENTS; Start 06/21/20 at 10:45 Atropine Sulfate (ATROPINE 0.5mg SYRINGE) 0.5 mg PRN Q5MIN PRN IV SEE COMMENTS; Start 06/21/20 at 10:45 Active Scripts Active Reported Acetaminophen-Diphenhyd 500-25 (Acetaminophen/Diphenhydramine) 1 Each Tablet 1 Each PO HS PRN Naproxen 500 Mg Tablet 1 Tab PO BID PRN 30 Days Tramadol Hcl 50 Mg Tablet 50 Mg PO Q4HRS Levothyroxine Sodium 75 Mcg Tablet 1 Tab PO DAILY Adderall 20 Mg Tablet (Dextroamphetamine/Amphetamine) 20 Mg Tablet 1 Tab PO DA ZARIA MDD 1 Tablet(s) 5 Days Prozac (Fluoxetine Hcl) 20 Mg Capsule 1 Cap PO DAILYWBKFT Vitals/I & O Vital Sign - Last 24 Hours 06/21/20 06/21/20 06/21/20 06/21/20 09:00 10:00 11:00 11:56 Pulse 82 73 66 Resp 18 18 18 B/P (MAP) 126/64 (84) 112/60 (77) 107/61 (76) Pulse Ox 99 98 99 96 O2 Delivery Ventilator Ventilator Ventilator Ventilator 06/21/20 06/21/20 06/21/20 06/21/20 12:00 12:00 13:00 14:00 Temp 98.0 98.0 Pulse 68 60 68 Resp 18 18 18 B/P (MAP) 97/58 (71) 100/60 (73) 127/69 (88) Pulse Ox 99 99 99 O2 Delivery Mechanical Ventilator Ventilator Ventilator Ventilator 06/21/20 06/21/20 06/21/20 06/21/20 15:00 15:32 16:00 16:00 Temp 98.4 98.4 Pulse 61 64 Resp 18 18 B/P (MAP) 96/56 (69) 110/68 (82) Pulse Ox 98 98 99 O2 Delivery Ventilator Mechanical Ventilator Ventilator O2 Flow Rate 15.0 06/21/20 06/21/20 06/21/20 06/21/20 16:02 16:10 16:51 17:00 Pulse 64 71 Resp 18 B/P (MAP) 110/68 107/68 (81) Pulse Ox 99 98 98 O2 Delivery Ventilator Ventilator O2 Flow Rate 15.0 06/21/20 06/21/20 06/21/20 06/21/20 17:59 18:00 19:00 20:00 Pulse 82 82 68 Resp 22 22 18 B/P (MAP) 127/69 (88) 127/69 (88) 114/70 (85) Pulse Ox 97 97 98 O2 Delivery Ventilator Ventilator Ventilator Mechanical Ventilator 06/21/20 06/21/20 06/21/20 06/21/20 20:00 20:31 21:00 22:00 Temp 99.4 99.4 Pulse 68 79 73 Resp 18 18 18 B/P (MAP) 113/69 (84) 118/67 (84) 104/57 (73) Pulse Ox 98 98 99 97 O2 Delivery Ventilator Ventilator Ventilator Ventilator 06/21/20 06/21/20 06/22/20 06/22/20 23:00 23:45 00:00 00:00 Temp 98.6 98.6 Pulse 80 76 Resp 18 18 B/P (MAP) 112/66 (81) 118/67 (84) Pulse Ox 97 97 98 O2 Delivery Ventilator Ventilator Mechanical Ventilator Ventilator 06/22/20 06/22/20 06/22/20 06/22/20 01:00 02:00 03:00 04:00 Pulse 92 83 88 Resp 24 18 18 B/P (MAP) 136/80 (98) 141/81 (101) 136/71 (92) Pulse Ox 96 97 97 O2 Delivery Ventilator Ventilator Ventilator Mechanical Ventilator 06/22/20 06/22/20 06/22/20 06/22/20 04:00 04:15 05:00 06:00 Temp 98.8 98.8 Pulse 83 80 67 Resp 22 18 18 B/P (MAP) 134/76 (95) 134/72 (92) 106/55 (72) Pulse Ox 97 98 98 98 O2 Delivery Ventilator Ventilator Ventilator Ventilator 06/22/20 06/22/20 06/22/20 07:00 07:55 08:20 Pulse 72 Resp 18 B/P (MAP) 113/63 (80) Pulse Ox 98 97 95 O2 Delivery Ventilator Ventilator Intake and Output 06/21/20 06/21/20 06/22/20 15:00 23:00 07:00 Intake Total 250 ml 406.1 ml 708.7 ml Output Total 365 ml 535 ml 620 ml Balance -115 ml -128.9 ml 88.7 ml Justicifation of Admission Dx: Justifications for Admission: Justification of Admission Dx: N/A JEFF FLORES MD Jun 22, 2020 08:56
--- NOTE | 2020-06-22 09:47 | PDOC ---
PULMONARY PROGRESS NOTES DATE: 06/22/20 TIME: 09:38 Subjective S/P cardiac arrest 06/17---PEA / V-fib remains on vent support sedation turned off this am, still not awake yet , not following commands appropriately Vitals Vital Signs Date Time Temp Pulse Resp B/P (MAP) Pulse Ox O2 Delivery O2 Flow Rate FiO2 06/22/20 08:54 72 113/63 06/22/20 08:20 95 06/22/20 08:00 Mechanical Ventilator 06/22/20 07:00 18 06/22/20 04:00 98.8 98.8 06/21/20 16:02 15.0 Comments AC mode intubated , off sedation Lungs: Clear Cardiovascular: S1 Abdomen: Soft Extremities: No Edema Labs Laboratory Tests Test 06/20/20 11:20 06/20/20 17:46 06/21/20 00:14 06/21/20 06:40 Glucose (Fingerstick) 128 mg/dL (70-99) 118 mg/dL (70-99) 111 mg/dL (70-99) White Blood Count 8.1 x10^3/uL (4.0-11.0) Red Blood Count 3.24 x10^6/uL (3.50-5.40) Hemoglobin 9.8 g/dL (12.0-15.5) Hematocrit 29.6 % (36.0-47.0) Mean Corpuscular Volume 91 fL (79-100) Mean Corpuscular Hemoglobin 30 pg (25-35) Mean Corpuscular Hemoglobin Concent 33 g/dL (31-37) Red Cell Distribution Width 13.3 % (11.5-14.5) Platelet Count 186 x10^3/uL (140-400) Sodium Level 139 mmol/L (136-145) Potassium Level 3.5 mmol/L (3.5-5.1) Chloride Level 103 mmol/L (98-107) Carbon Dioxide Level 31 mmol/L (21-32) Anion Gap 5 (6-14) Blood Urea Nitrogen 15 mg/dL (7-20) Creatinine 0.6 mg/dL (0.6-1.0) Estimated GFR (Cockcroft-Gault) 103.0 Glucose Level 117 mg/dL (70-99) Calcium Level 8.5 mg/dL (8.5-10.1) Test 06/21/20 08:00 06/22/20 08:10 O2 Saturation 97 % (92-99) 94 % (92-99) Arterial Blood pH 7.48 (7.35-7.45) 7.40 (7.35-7.45) Arterial Blood pCO2 at Patient Temp 40 mmHg (35-46) 44 mmHg (35-46) Arterial Blood pO2 at Patient Temp 102 mmHg (75-108) 73 mmHg (75-108) Arterial Blood HCO3 29 mmol/L (21-28) 27 mmol/L (21-28) Arterial Blood Base Excess 5 mmol/L (-3-3) 2 mmol/L (-3-3) FiO2 40% vent 40% Laboratory Tests Test 06/22/20 08:10 O2 Saturation 94 % (92-99) Arterial Blood pH 7.40 (7.35-7.45) Arterial Blood pCO2 at Patient Temp 44 mmHg (35-46) Arterial Blood pO2 at Patient Temp 73 mmHg (75-108) Arterial Blood HCO3 27 mmol/L (21-28) Arterial Blood Base Excess 2 mmol/L (-3-3) FiO2 40% Medications Active Scripts Medications Dose Route/Sig Max Daily Dose Days Date Category Acetaminophen-Diphenhyd 500-25 (Acetaminophen/Diphenhydramine) 1 Each Tablet 1 Each PO HS PRN 06/18/20 Reported Naproxen 500 Mg Tablet 1 Tab PO BID PRN 30 06/18/20 Reported Tramadol Hcl 50 Mg Tablet 50 Mg PO Q4HRS 06/18/20 Reported Levothyroxine Sodium 75 Mcg Tablet 1 Tab PO DAILY 06/18/20 Reported Adderall 20 Mg Tablet (Dextroamphetamine/Amphetamine) 20 Mg Tablet 1 Tab PO DAILY MDD 1 Tablet(s) 5 06/18/20 Reported Prozac (Fluoxetine Hcl) 20 Mg Capsule 1 Cap PO DAILYWBKFT 06/18/20 Reported Comments CXR 06/20/20 IMPRESSION: Increased consolidative changes the left lung base may represent degree of small pleural effusion with adjacent compressive atelectasis versus infiltrate. Impression . IMPRESSION: 1. Acute respiratory failure secondary to [id number] cardiopulmonary arrest.highly suspected anoxic encephalopathy 2. [id number] ventricular fibrillation and asystole leading to anoxic brain injury. 3. Anoxic encephalopathy. 4. COVID neg 5. Morbid obesity. 6. Leukocytosis--improved 7. Lactic acidosis secondary to [id number] cardiac arrest. 8. Abnormal x-ray revealing bibasilar atelectasis, infiltrates. 9. Pneumothorax secondary to CPR.resolved on cxr, no air leak 10. Sternal sternal fracture secondary to CPR. 11. ? Pneumonia positive, gram-negative, gram-positive. Plan . PLAN: continue current support with assist control ventilation, Fi02 40%/ Had 1 hr of CPAP today. off sedation at this time again, Not seeing sig improvement in MS. await for her to awake to assess neurological status , so far no appropriate response Follow CXR/ABG-- no changes Continue Chest tube to suction, no leak Follow ID recs for ABX on zosyn Follow neurology recs Follow Cardiology recs DVT/GI PPX D/W RN and RT Poor prognosis 2/2 anoxic injury d/w son / at bedside cct 30 min ANGELA MORENO MD Jun 22, 2020 09:46
[2020-06-22 09:49] LABS: BASE EXCESS ABG 2 mmol/L (-3-3); HCO3 ABG 26 mmol/L (21-28); PCO2 ABG 42 mmHg (35-46); PO2 ABG 82 mmHg (75-108); SAT O2 ABG 95 % (92-99)
[2020-06-22 09:50] LABS: FIO2 ABG 40% CPAP
--- NOTE | 2020-06-22 10:21 | PDOC ---
JESSE ANTOINE LEADER ASSEMBLER 06/22/20 1020: CARDIO Progress Notes Date and Time Date of Service 06/22/2020 Time of Evaluation 0920 Subjective Subjective: Other (intubated, vent) Vitals Vitals Vital Signs Date Time Temp Pulse Resp B/P (MAP) Pulse Ox O2 Delivery O2 Flow Rate FiO2 06/22/20 10:00 90 18 155/78 (103) 98 Ventilator 06/22/20 08:00 98.6 98.6 06/21/20 16:02 15.0 Weight Weight [ ] Input and Output Intake and Output Intake and Output 06/22/20 07:00 Intake Total 1364.8 ml Output Total 1520 ml Balance -155.2 ml IV Total 889.8 ml Tube Feeding 375 ml Other 100 ml Output Urine Total 1370 ml Gastric Drainage Total 100 ml Chest Tube Drainage Total 50 ml Laboratory Labs Laboratory Tests Test 06/22/20 08:10 06/22/20 09:44 O2 Saturation 94 % (92-99) 95 % (92-99) Arterial Blood pH 7.40 (7.35-7.45) 7.42 (7.35-7.45) Arterial Blood pCO2 at Patient Temp 44 mmHg (35-46) 42 mmHg (35-46) Arterial Blood pO2 at Patient Temp 73 mmHg (75-108) 82 mmHg (75-108) Arterial Blood HCO3 27 mmol/L (21-28) 26 mmol/L (21-28) Arterial Blood Base Excess 2 mmol/L (-3-3) 2 mmol/L (-3-3) FiO2 40% 40% cpap Microbiology Micro Microbiology 06/17/20 Blood Culture - Final, Complete NO GROWTH AFTER 5 DAYS Physical Exam HEENT: Neck Supple W Full Motion Chest: Symmetric LUNGS: Other (intubated, vent) Heart: RRR (SR with PVCs) Abdomen: Other (soft) Extremities: No Edema Neurology: other (sedated) Assessment Assessment 1. OOH cardiopulmonary arrest: initially with VT, shock, then asystole. at least 2 pulseless events, unclear duration to ROSC but significantly prolonged per staff with spouse giving about 10 min CPR himself. Received amiodarone. She does not have any known hx of CAD/arrhythmias 2. Acute respiratory failure with possible pneumonia: negative for PE 3. Severe cardiomyopathy: EF 25% 4. Right pneumothorax: due to chest compression 5. ADHD: on adderral but negative on tox screen 6. hypothyroidism: on replacement 7. Marijuana use: + UDS 8. Anoxic encephalopathy: neurology following 9. Acute systolic CHF: better compensated Recommendations 1. No significant arrhythmias. Continue amiodarone, coreg. 2. ASA and statin. Lasix PRN 3. Poor prognosis with significantly prolonged downtime. No meaningful neurological improvement. Discussed with spouse. Consider palliative care 4. Supportive care Justicifation of Admission Dx: Justifications for Admission: Justification of Admission Dx: N/A NURA MEHTA MD 06/22/20 1530: CARDIO Progress Notes Assessment Assessment Patient seen and evaluated. I agree with our nurse practitioners assessment and plan. Out of hospital cardiopulmonary arrest: initially with VT, shock, then asystole. at least 2 pulseless events, unclear duration to ROSC but significantly prolonged per staff with spouse giving about 10 min CPR himself. Received amiodarone. No known hx of CAD/arrhythmias. Rhythm remained stable. Acute respiratory failure with possible pneumonia: negative for PE Severe cardiomyopathy: EF 25% Right pneumothorax: due to chest compression Anoxic encephalopathy: neurology following Acute systolic CHF: better compensated JESSE ANTOINE APRN Jun 22, 2020 10:20 NURA MEHTA MD Jun 22, 2020 15:30
--- NOTE | 2020-06-22 10:36 | NUR ---
Sedation turned off at 0700- pt immediately restless in bed/sticking tongue out/ thrashing legs side to side- does NOT follow commands or track with eyes but is awake. SBT started at 0825- pt tolerated well, but still extremely restless in bed and unable to follow commands. Dr. Olivera at bedside, explained to family that patient's neuro deficit makes it unable extubate safely. Family re-sedated with fentanyl + propofol for vent management/comfort and switched back to AC mode on ventilator. Family still at bedside, very tearful. Pt resting peacefully, all VSS.
--- NOTE | 2020-06-22 15:07 | PDOC ---
[facility] PROGRESS NOTE Date of Service DOS: DATE: 06/22/20 TIME: 15:06 Chief Complaint Chief Complaint Cardiac arrest with resuscitation and probable pneumonia, sternal fracture and pneumothorax secondary to CPR, leukocytosis, electrolyte disturbance, hypokalemia, lactic acidosis, elevated troponin. The patient will be admitted. We will consult Pulmonary Medicine, Infectious Disease, and Cardiology. She is going to the ICU. Vent weaning. Propofol for sedation. Serial enzymes, serial EKGs, IV Zosyn until she is seen by Infectious Disease. Home meds, DVT prophylaxis. Full code. History of Present Illness History of Present Illness The patient is a pleasant 59-year-old female who had COVID-19 two months ago. She had a witnessed cardiac arrest today. The family started CPR, they called the ambulance. She has now been resuscitated and intubated. She is currently being examined in the ER where she is starting to have some posturing. She is not really responding to pain either, but her pupils are reactive. 06/22: No acute events overnight. Afebrile. On vent FiO2 40%, PEEP 5. Working towards extubation. Charts and labs reviewed, continue current medical management. 06/21: Patient narcisa in ICU on ventilator. FiO2 40%, PEEP 5%. She is afebrile. Discussed with RN, no acute vents overnight. Charts and labs reviewed. Continue antibiotic treatment with Zosyn. 06/20: Patient seen in ICU. She remains on ventilator, FiO2 40%, PEEP 5. Afebrile. No acute events overnight. Echocardiogram obtained, showing mildly dilated left ventricle with global hypokinesis, estimated ejection fraction 25%. 06/19: Patient seen in ICU. On ventilator, FiO2 40%, PEEP 5. Continue IV Zosyn. Follow neurology and cardiology recommendations. Chest tube management and vent management per pulmonology. 06/18: Patient seen in ICU. Afebrile. Ventilated, FiO2 40%, PEEP 5. Continue antibiotic coverage. Charts and labs reviewed. Discussed with RN, no acute events overnight. COVID-19 negative. Echocardiogram pending. Vitals/I&O Vitals/I&O: Vital Signs Date Time Temp Pulse Resp B/P (MAP) Pulse Ox O2 Delivery O2 Flow Rate FiO2 06/22/20 14:00 63 18 131/83 (99) 97 Ventilator 06/22/20 12:00 98.4 98.4 1/8/21 11:29 15.0 I & O 06/21/20 06/21/20 06/22/20 15:00 23:00 07:00 Intake Total 250 ml 406.1 ml 708.7 ml Output Total 365 ml 535 ml 620 ml Balance -115 ml -128.9 ml 88.7 ml Physical Exam Physical Exam: GENERAL: Sedated, orally intubated female, not in distress. VITAL SIGNS: Stable. HEENT: Both pupils are round and reacting. No conjunctival lesion. Mouth cannot be visualized, orally intubated. NECK: Supple. No JVP, no lymphadenopathy. LUNGS: Decreased breath sounds bilaterally. HEART: S1, S2, regular. No gallop or murmur. ABDOMEN: Soft, nontender. No organomegaly. EXTREMITIES: No edema or cyanosis. SKIN: Unremarkable. NEUROLOGICAL: The patient is sedated, orally intubated. General: Other (Intubated) Heart: Regular rate Lungs: Clear Abdomen: Normal bowel sounds Extremities: No clubbing, No cyanosis Skin: No rashes, No breakdown Labs Labs: Laboratory Tests Test 06/22/20 08:10 06/22/20 09:44 O2 Saturation 94 % (92-99) 95 % (92-99) Arterial Blood pH 7.40 (7.35-7.45) 7.42 (7.35-7.45) Arterial Blood pCO2 at Patient Temp 44 mmHg (35-46) 42 mmHg (35-46) Arterial Blood pO2 at Patient Temp 73 mmHg (75-108) 82 mmHg (75-108) Arterial Blood HCO3 27 mmol/L (21-28) 26 mmol/L (21-28) Arterial Blood Base Excess 2 mmol/L (-3-3) 2 mmol/L (-3-3) FiO2 40% 40% cpap Assessment and Plan Assessmemt and Plan Problems Medical Problems: (1) Cardiac arrest Status: Acute (2) Fracture of ribs, multiple Status: Acute (3) Hyperglycemia Status: Acute (4) Pneumonia Status: Acute (5) Pneumothorax, right Status: Acute (6) Sternal fracture Status: Acute (7) VF (ventricular fibrillation) Status: Acute Comment Review of Relevant I have reviewed the following items afua (where applicable) has been applied. Justifications for Admission Other Justification LASHELL SILVER MD Jun 22, 2020 15:07
--- NOTE | 2020-06-22 15:56 | NUR ---
SS following up with discharge planning. SS reviewed pt chart and discussed with pt RN. Pt is currently on the vent at 40%. COVID19 negative. Pt on IV Zosyn. Pt sedated. Dr. Heck discussing goals of care with pt's family. Not stable. SS will continue to follow for discharge planning.
[2020-06-22] MEDS: ATORVASTATIN CALCIUM 20 MG TABLET PO SCH (21:08)
[2020-06-22] MEDS: ENOXAPARIN 40 MG/0.4 ML SYRINGE. SQ SCH (21:09)
[2020-06-23] VITALS (23 sets, daily range): BP systolic 84–145; BP diastolic 51–89
[2020-06-23] MEDS: PROPOFOL 100 ML IV PRN ×5 (00:24→20:42)
[2020-06-23] MEDS: LEVOTHYROXINE 75 MCG TABLET PO SCH (06:23)
[2020-06-23] MEDS: PIPERACILLIN/TAZOBACTAM 3.375 GM in IV NORMAL SALINE 50ML 50 ML IV SCH ×4 (06:24→23:52)
[2020-06-23] MEDS: IPRATRPIUM/ALBUTEROL 0.5/2.5MG 3 ML NEBU. NEB SCH ×4 (07:49→20:00)
[2020-06-23 07:58] LABS: BASE EXCESS ABG 1 mmol/L (-3-3); HCO3 ABG 25 mmol/L (21-28); PCO2 ABG 36 mmHg (35-46); PO2 ABG 97 mmHg (75-108); SAT O2 ABG 97 % (92-99)
[2020-06-23 08:02] LABS: FIO2 ABG 40
[2020-06-23] MEDS: AMIODARONE HCL 200 MG TABLET. PO SCH (09:12)
[2020-06-23] MEDS: ASPIRIN CHEWABLE 81 MG TABLET. PO SCH (09:12)
[2020-06-23] MEDS: FAMOTIDINE 20 MG/2 ML VIAL IVP SCH ×2 (09:15→20:42)
[2020-06-23] MEDS: CARVEDILOL 3.125 MG TABLET. PO SCH ×2 (09:15→17:41)
--- NOTE | 2020-06-23 09:36 | PDOC ---
PULMONARY PROGRESS NOTES DATE: 06/23/20 TIME: 09:32 Subjective S/P cardiac arrest 06/17---PEA / V-fib remains on vent support sedation turned off every am, not following commands appropriately Vitals Vital Signs Date Time Temp Pulse Resp B/P (MAP) Pulse Ox O2 Delivery O2 Flow Rate FiO2 06/23/20 09:15 72 113/68 06/23/20 08:33 18 100 Ventilator 06/23/20 07:59 98.0 98.0 06/22/20 23:56 15.0 Comments AC mode intubated , off sedation Lungs: Clear Cardiovascular: S1 Abdomen: Soft Extremities: No Edema Labs Laboratory Tests Test 06/22/20 06:18 06/22/20 08:10 06/22/20 09:44 06/22/20 23:51 Glucose (Fingerstick) 109 mg/dL (70-99) 101 mg/dL (70-99) O2 Saturation 94 % (92-99) 95 % (92-99) Arterial Blood pH 7.40 (7.35-7.45) 7.42 (7.35-7.45) Arterial Blood pCO2 at Patient Temp 44 mmHg (35-46) 42 mmHg (35-46) Arterial Blood pO2 at Patient Temp 73 mmHg (75-108) 82 mmHg (75-108) Arterial Blood HCO3 27 mmol/L (21-28) 26 mmol/L (21-28) Arterial Blood Base Excess 2 mmol/L (-3-3) 2 mmol/L (-3-3) FiO2 40% 40% cpap Test 06/23/20 07:52 06/23/20 07:55 Glucose (Fingerstick) 126 mg/dL (70-99) O2 Saturation 97 % (92-99) Arterial Blood pH 7.45 (7.35-7.45) Arterial Blood pCO2 at Patient Temp 36 mmHg (35-46) Arterial Blood pO2 at Patient Temp 97 mmHg (75-108) Arterial Blood HCO3 25 mmol/L (21-28) Arterial Blood Base Excess 1 mmol/L (-3-3) FiO2 40 Laboratory Tests Test 06/22/20 09:44 06/22/20 23:51 06/23/20 07:52 06/23/20 07:55 O2 Saturation 95 % (92-99) 97 % (92-99) Arterial Blood pH 7.42 (7.35-7.45) 7.45 (7.35-7.45) Arterial Blood pCO2 at Patient Temp 42 mmHg (35-46) 36 mmHg (35-46) Arterial Blood pO2 at Patient Temp 82 mmHg (75-108) 97 mmHg (75-108) Arterial Blood HCO3 26 mmol/L (21-28) 25 mmol/L (21-28) Arterial Blood Base Excess 2 mmol/L (-3-3) 1 mmol/L (-3-3) FiO2 40% cpap 40 Glucose (Fingerstick) 101 mg/dL (70-99) 126 mg/dL (70-99) Medications Active Scripts Medications Dose Route/Sig Max Daily Dose Days Date Category Acetaminophen-Diphenhyd 500-25 (Acetaminophen/Diphenhydramine) 1 Each Tablet 1 Each PO HS PRN 06/18/20 Reported Naproxen 500 Mg Tablet 1 Tab PO BID PRN 30 06/18/20 Reported Tramadol Hcl 50 Mg Tablet 50 Mg PO Q4HRS 06/18/20 Reported Levothyroxine Sodium 75 Mcg Tablet 1 Tab PO DAILY 06/18/20 Reported Adderall 20 Mg Tablet (Dextroamphetamine/Amphetamine) 20 Mg Tablet 1 Tab PO DAILY MDD 1 Tablet(s) 5 06/18/20 Reported Prozac (Fluoxetine Hcl) 20 Mg Capsule 1 Cap PO [id number] 06/18/20 Reported Comments CXR 06/20/20 IMPRESSION: Increased consolidative changes the left lung base may represent degree of small pleural effusion with adjacent compressive atelectasis versus infiltrate. cxr 06/21 reviewed no change Impression . IMPRESSION: 1. Acute respiratory failure secondary to aui-dd-lzciwzzg cardiopulmonary arrest.highly suspected anoxic encephalopathy 2. Guz-sh-uwatijtg ventricular fibrillation and asystole leading to anoxic brain injury. 3. Anoxic encephalopathy. 4. COVID neg 5. Morbid obesity. 6. Leukocytosis--improved 7. Lactic acidosis secondary to due-qz-tzeoxapk cardiac arrest. 8. Abnormal x-ray revealing bibasilar atelectasis, infiltrates. 9. Pneumothorax secondary to CPR.resolved on cxr, no air leak 10. Sternal sternal fracture secondary to CPR. 11. ? Pneumonia positive, gram-negative, gram-positive. Plan . PLAN: continue current support with assist control ventilation, Fi02 40%/ off sedation every am. I have observed her multiple times while off sedation every day. Not seeing sig improvement and no appropriate response Follow CXR/ABG-- no changes Continue Chest tube to suction, no leak Follow ID recs for ABX on zosyn Follow neurology recs Follow Cardiology recs DVT/GI PPX D/W RN and RT Poor prognosis 2/2 anoxic injury d/w son / at bedside every day. Options given. Trach with LTAC placement to see any improvement vs comfort care and extubation. Family to let me know by Thursday cct 30 min ANGELA MORENO MD Jun 23, 2020 09:36
[2020-06-23] MEDS: DEXMEDETOMIDINE 400 MCG in IV NORMAL SALINE 100ML 96 ML IV PRN ×2 (09:48→16:23)
--- NOTE | 2020-06-23 11:03 | PDOC ---
[employer] PROGRESS NOTE Date of Service DOS: DATE: 06/23/20 TIME: 11:02 Chief Complaint Chief Complaint Cardiac arrest with resuscitation and probable pneumonia, sternal fracture and pneumothorax secondary to CPR, leukocytosis, electrolyte disturbance, hypokalemia, lactic acidosis, elevated troponin. The patient will be admitted. We will consult Pulmonary Medicine, Infectious Disease, and Cardiology. She is going to the ICU. Vent weaning. Propofol for sedation. Serial enzymes, serial EKGs, IV Zosyn until she is seen by Infectious Disease. Home meds, DVT prophylaxis. Full code. History of Present Illness History of Present Illness The patient is a pleasant 59-year-old female who had COVID-19 two months ago. She had a witnessed cardiac arrest today. The family started CPR, they called the ambulance. She has now been resuscitated and intubated. She is currently being examined in the ER where she is starting to have some posturing. She is not really responding to pain either, but her pupils are reactive. 06/23: Afebrile. On vent with FiO2 40%, PEEP 5. She is restless, no purposeful movements off sedation. Discussed with RN, continue to try to wean off vent. 06/22: No acute events overnight. Afebrile. On vent FiO2 40%, PEEP 5. Working towards extubation. Charts and labs reviewed, continue current medical management. 06/21: Patient narcisa in ICU on ventilator. FiO2 40%, PEEP 5%. She is afebrile. Discussed with RN, no acute vents overnight. Charts and labs reviewed. Continue antibiotic treatment with Zosyn. 06/20: Patient seen in ICU. She remains on ventilator, FiO2 40%, PEEP 5. Afebrile. No acute events overnight. Echocardiogram obtained, showing mildly dilated left ventricle with global hypokinesis, estimated ejection fraction 25%. 06/19: Patient seen in ICU. On ventilator, FiO2 40%, PEEP 5. Continue IV Zosyn. Follow neurology and cardiology recommendations. Chest tube management and vent management per pulmonology. 06/18: Patient seen in ICU. Afebrile. Ventilated, FiO2 40%, PEEP 5. Continue antibiotic coverage. Charts and labs reviewed. Discussed with RN, no acute events overnight. COVID-19 negative. Echocardiogram pending. Vitals/I&O Vitals/I&O: Vital Signs Date Time Temp Pulse Resp B/P (MAP) Pulse Ox O2 Delivery O2 Flow Rate FiO2 06/23/20 10:50 100 Ventilator 06/23/20 10:35 62 18 145/76 (99) 06/23/20 07:59 98.0 98.0 06/22/20 23:56 15.0 I & O 06/22/20 06/22/20 06/23/20 15:00 23:00 07:00 Intake Total 250 ml 502 ml 695 ml Output Total 300 ml 345 ml 255 ml Balance -50 ml 157 ml 440 ml Physical Exam Physical Exam: GENERAL: Sedated, orally intubated female, not in distress. VITAL SIGNS: Stable. HEENT: Both pupils are round and reacting. No conjunctival lesion. Mouth cannot be visualized, orally intubated. NECK: Supple. No JVP, no lymphadenopathy. LUNGS: Decreased breath sounds bilaterally. HEART: S1, S2, regular. No gallop or murmur. ABDOMEN: Soft, nontender. No organomegaly. EXTREMITIES: No edema or cyanosis. SKIN: Unremarkable. NEUROLOGICAL: The patient is sedated, orally intubated. General: Other (Intubated) Heart: Regular rate Lungs: Clear Abdomen: Normal bowel sounds Extremities: No clubbing, No cyanosis Skin: No rashes, No breakdown Labs Labs: Laboratory Tests Test 06/22/20 23:51 06/23/20 07:52 06/23/20 07:55 Glucose (Fingerstick) 101 mg/dL (70-99) 126 mg/dL (70-99) O2 Saturation 97 % (92-99) Arterial Blood pH 7.45 (7.35-7.45) Arterial Blood pCO2 at Patient Temp 36 mmHg (35-46) Arterial Blood pO2 at Patient Temp 97 mmHg (75-108) Arterial Blood HCO3 25 mmol/L (21-28) Arterial Blood Base Excess 1 mmol/L (-3-3) FiO2 40 Assessment and Plan Assessmemt and Plan Problems Medical Problems: (1) Cardiac arrest Status: Acute (2) Fracture of ribs, multiple Status: Acute (3) Hyperglycemia Status: Acute (4) Pneumonia Status: Acute (5) Pneumothorax, right Status: Acute (6) Sternal fracture Status: Acute (7) VF (ventricular fibrillation) Status: Acute Comment Review of Relevant I have reviewed the following items afua (where applicable) has been applied. Justifications for Admission Other Justification LASHELL SILVER MD Jun 23, 2020 11:03
--- NOTE | 2020-06-23 11:29 | RAD ---
AP chest. HISTORY: Respiratory failure, intubated, pneumothorax AP view was taken of the chest. Small right chest tube is unchanged. Right subclavian central line is in good position. A pneumothorax is not identified on the current study. NG tube extends into the st omach. Endotracheal tube is in good position. There is a left pleural effusion with left lower lobe a telectasis or infiltrate. There has been a mild improvement in the right lung atelectasis or infiltra te compared to the prior exam on June 21 without significant change on the left. IMPRESSION: 1. Tubes and lines unchanged. 2. No right pneumothorax. 3. Persistent left effusion with left basilar atelectasis or infiltrate with little change. Electronically signed by: Bernardino Haas MD (06/23/2020 11:21 AM) [facility]
--- NOTE | 2020-06-23 12:01 | PDOC ---
CARDIOLOGY PROGRESS NOTE SUBJECTIVE: No new CV events OBJECTIVE: Vital Signs/I&O: Vital Signs Date Time Temp Pulse Resp B/P (MAP) Pulse Ox O2 Delivery O2 Flow Rate FiO2 06/23/20 10:50 100 Ventilator 06/23/20 10:35 62 18 145/76 (99) 06/23/20 07:59 98.0 98.0 06/22/20 23:56 15.0 I & O 06/22/20 06/22/20 06/23/20 15:00 23:00 07:00 Intake Total 250 ml 502 ml 695 ml Output Total 300 ml 345 ml 255 ml Balance -50 ml 157 ml 440 ml Objective: No significant changes. DIAGNOSTIC TESTING: Labs: Laboratory Tests Test 06/22/20 23:51 06/23/20 07:52 06/23/20 07:55 Glucose (Fingerstick) 101 mg/dL (70-99) H 126 mg/dL (70-99) H O2 Saturation 97 % (92-99) Arterial Blood pH 7.45 (7.35-7.45) Arterial Blood pCO2 at Patient Temp 36 mmHg (35-46) Arterial Blood pO2 at Patient Temp 97 mmHg (75-108) Arterial Blood HCO3 25 mmol/L (21-28) Arterial Blood Base Excess 1 mmol/L (-3-3) FiO2 40 ASSESSMENT: 1. Anoxic brain injury 2. OOH cardiac arrest. PLAN: 1. Supportive care for now. Await family decision regarding aggressive care versus conservative mgmt. 2. If family wishes to proceed with trach/peg, will likely need angiogram prior, otherwise, agree with hospice/cc. Thanks Justicifation of Admission Dx: Justifications for Admission: Justification of Admission Dx: N/A SHADIA CARRION MD Jun 23, 2020 12:01
[2020-06-23] MEDS: fentaNYL PF VIAL 100 MCG/2 ML VIAL IVP PRN ×2 (18:30→20:58)
[2020-06-23] MEDS: ENOXAPARIN 40 MG/0.4 ML SYRINGE. SQ SCH (20:42)
[2020-06-23] MEDS: ATORVASTATIN CALCIUM 20 MG TABLET PO SCH (20:42)
[2020-06-24] VITALS (24 sets, daily range): BP systolic 85–138; BP diastolic 51–102
[2020-06-24] MEDS: DEXMEDETOMIDINE 400 MCG in IV NORMAL SALINE 100ML 96 ML IV PRN ×5 (00:48→23:04)
[2020-06-24] MEDS: PROPOFOL 100 ML IV PRN ×5 (00:48→22:26)
[2020-06-24] MEDS: LEVOTHYROXINE 75 MCG TABLET PO SCH (06:10)
[2020-06-24] MEDS: PIPERACILLIN/TAZOBACTAM 3.375 GM in IV NORMAL SALINE 50ML 50 ML IV SCH ×4 (06:10→23:57)
--- NOTE | 2020-06-24 07:45 | RAD ---
AP chest. HISTORY: Pneumothorax AP view was taken of the chest. There is a small right chest tube. There is no pneumothorax. There is left lower lobe atelectasis. A left pleural effusion is possible. Left lung infiltrate or consolidat ion is possible. Endotracheal tube is in good position. Central line is unchanged. NG tube extends in to the stomach. IMPRESSION: 1. Right chest tube unchanged, no pneumothorax. 2. Left lower lobe atelectasis or consolidation. 3. Possible left effusion. 4. Little change from the prior study. Electronically signed by: Bernardino Haas MD (06/24/2020 7:42 AM) [facility]
[2020-06-24 08:31] LABS: BASE EXCESS ABG 2 mmol/L (-3-3); HCO3 ABG 26 mmol/L (21-28); PCO2 ABG 39 mmHg (35-46); PO2 ABG 74 mmHg (75-108); SAT O2 ABG 95 % (92-99)
[2020-06-24] MEDS: IPRATRPIUM/ALBUTEROL 0.5/2.5MG 3 ML NEBU. NEB SCH ×4 (08:34→20:00)
[2020-06-24 08:37] LABS: FIO2 ABG 40%
[2020-06-24] MEDS: ASPIRIN CHEWABLE 81 MG TABLET. PO SCH (09:09)
[2020-06-24] MEDS: AMIODARONE HCL 200 MG TABLET. PO SCH (09:10)
[2020-06-24] MEDS: CARVEDILOL 3.125 MG TABLET. PO SCH ×2 (09:10→17:00)
[2020-06-24] MEDS: FAMOTIDINE 20 MG/2 ML VIAL IVP SCH ×2 (09:10→20:46)
--- NOTE | 2020-06-24 09:32 | PDOC ---
[employer] PROGRESS NOTE Date of Service DOS: DATE: 06/24/20 TIME: 09:31 Chief Complaint Chief Complaint Cardiac arrest with resuscitation and probable pneumonia, sternal fracture and pneumothorax secondary to CPR, leukocytosis, electrolyte disturbance, hypokalemia, lactic acidosis, elevated troponin. The patient will be admitted. We will consult Pulmonary Medicine, Infectious Disease, and Cardiology. She is going to the ICU. Vent weaning. Propofol for sedation. Serial enzymes, serial EKGs, IV Zosyn until she is seen by Infectious Disease. Home meds, DVT prophylaxis. Full code. History of Present Illness History of Present Illness The patient is a pleasant 59-year-old female who had COVID-19 two months ago. She had a witnessed cardiac arrest today. The family started CPR, they called the ambulance. She has now been resuscitated and intubated. She is currently being examined in the ER where she is starting to have some posturing. She is not really responding to pain either, but her pupils are reactive. 06/24: Patient seen in ICU. On vent, FiO2 40%, PEEP 5. I believe she has anoxic encephalopathy. No purposeful movements, and unsafe off sedation. I believe family is to discuss possible withdrawal of care soon, versus further aggressive treatment with trach and PEG. Discussed with RN. 06/23: Afebrile. On vent with FiO2 40%, PEEP 5. She is restless, no purposeful movements off sedation. Discussed with RN, continue to try to wean off vent. 06/22: No acute events overnight. Afebrile. On vent FiO2 40%, PEEP 5. Working towards extubation. Charts and labs reviewed, continue current medical management. 06/21: Patient narcisa in ICU on ventilator. FiO2 40%, PEEP 5%. She is afebrile. Discussed with RN, no acute vents overnight. Charts and labs reviewed. Continue antibiotic treatment with Zosyn. 06/20: Patient seen in ICU. She remains on ventilator, FiO2 40%, PEEP 5. Afebrile. No acute events overnight. Echocardiogram obtained, showing mildly dilated left ventricle with global hypokinesis, estimated ejection fraction 25%. 06/19: Patient seen in ICU. On ventilator, FiO2 40%, PEEP 5. Continue IV Zosyn. Follow neurology and cardiology recommendations. Chest tube management and vent management per pulmonology. 06/18: Patient seen in ICU. Afebrile. Ventilated, FiO2 40%, PEEP 5. Continue antibiotic coverage. Charts and labs reviewed. Discussed with RN, no acute events overnight. COVID-19 negative. Echocardiogram pending. Vitals/I&O Vitals/I&O: Vital Signs Date Time Temp Pulse Resp B/P (MAP) Pulse Ox O2 Delivery O2 Flow Rate FiO2 06/24/20 09:10 93 138/102 06/24/20 08:14 95 Ventilator 06/24/20 08:00 99.3 26 99.3 06/23/20 21:30 15.0 I & O 06/23/20 06/23/20 06/24/20 15:00 23:00 07:00 Intake Total 250 ml 250 ml 1340 ml Output Total 335 ml 235 ml 455 ml Balance -85 ml 15 ml 885 ml Physical Exam Physical Exam: GENERAL: Sedated, orally intubated female, not in distress. VITAL SIGNS: Stable. HEENT: Both pupils are round and reacting. No conjunctival lesion. Mouth cannot be visualized, orally intubated. NECK: Supple. No JVP, no lymphadenopathy. LUNGS: Decreased breath sounds bilaterally. HEART: S1, S2, regular. No gallop or murmur. ABDOMEN: Soft, nontender. No organomegaly. EXTREMITIES: No edema or cyanosis. SKIN: Unremarkable. NEUROLOGICAL: The patient is sedated, orally intubated. General: Other (Intubated) Heart: Regular rate Lungs: Clear Abdomen: Normal bowel sounds Extremities: No clubbing, No cyanosis Skin: No rashes, No breakdown Labs Labs: Laboratory Tests Test 06/23/20 12:30 06/23/20 17:51 06/24/20 00:06 06/24/20 06:06 Glucose (Fingerstick) 124 mg/dL (70-99) 97 mg/dL (70-99) 104 mg/dL (70-99) 123 mg/dL (70-99) Test 06/24/20 08:25 O2 Saturation 95 % (92-99) Arterial Blood pH 7.44 (7.35-7.45) Arterial Blood pCO2 at Patient Temp 39 mmHg (35-46) Arterial Blood pO2 at Patient Temp 74 mmHg (75-108) Arterial Blood HCO3 26 mmol/L (21-28) Arterial Blood Base Excess 2 mmol/L (-3-3) FiO2 40% Assessment and Plan Assessmemt and Plan Problems Medical Problems: (1) Cardiac arrest Status: Acute (2) Fracture of ribs, multiple Status: Acute (3) Hyperglycemia Status: Acute (4) Pneumonia Status: Acute (5) Pneumothorax, right Status: Acute (6) Sternal fracture Status: Acute (7) VF (ventricular fibrillation) Status: Acute Comment Review of Relevant I have reviewed the following items afua (where applicable) has been applied. Medications: Current Medications Medications (Trade) Dose Ordered Sig/Rosalio Route PRN Reason Start Time Stop Time Status Last Admin Dose Admin Fentanyl Citrate (Fentanyl 2ml Vial) 50 mcg PRN Q2HR PRN IVP PAIN 06/23/20 16:45 06/23/20 20:58 Justifications for Admission Other Justification LASHELL SILVER MD Jun 24, 2020 09:32
--- NOTE | 2020-06-24 09:41 | PDOC ---
PULMONARY PROGRESS NOTES DATE: 06/24/20 TIME: 09:38 Subjective S/P cardiac arrest 06/17---PEA / V-fib remains on vent support sedation turned off every am, not following commands appropriately Vitals Vital Signs Date Time Temp Pulse Resp B/P (MAP) Pulse Ox O2 Delivery O2 Flow Rate FiO2 06/24/20 09:10 93 138/102 06/24/20 08:14 95 Ventilator 06/24/20 08:00 99.3 26 99.3 06/23/20 21:30 15.0 Comments AC mode intubated , off sedation Lungs: Clear Cardiovascular: S1 Abdomen: Soft Extremities: No Edema Labs Laboratory Tests Test 06/22/20 09:44 06/22/20 23:51 06/23/20 07:52 06/23/20 07:55 O2 Saturation 95 % (92-99) 97 % (92-99) Arterial Blood pH 7.42 (7.35-7.45) 7.45 (7.35-7.45) Arterial Blood pCO2 at Patient Temp 42 mmHg (35-46) 36 mmHg (35-46) Arterial Blood pO2 at Patient Temp 82 mmHg (75-108) 97 mmHg (75-108) Arterial Blood HCO3 26 mmol/L (21-28) 25 mmol/L (21-28) Arterial Blood Base Excess 2 mmol/L (-3-3) 1 mmol/L (-3-3) FiO2 40% cpap 40 Glucose (Fingerstick) 101 mg/dL (70-99) 126 mg/dL (70-99) Test 06/23/20 12:30 06/23/20 17:51 06/24/20 00:06 06/24/20 06:06 Glucose (Fingerstick) 124 mg/dL (70-99) 97 mg/dL (70-99) 104 mg/dL (70-99) 123 mg/dL (70-99) Test 06/24/20 08:25 O2 Saturation 95 % (92-99) Arterial Blood pH 7.44 (7.35-7.45) Arterial Blood pCO2 at Patient Temp 39 mmHg (35-46) Arterial Blood pO2 at Patient Temp 74 mmHg (75-108) Arterial Blood HCO3 26 mmol/L (21-28) Arterial Blood Base Excess 2 mmol/L (-3-3) FiO2 40% Laboratory Tests Test 06/23/20 12:30 06/23/20 17:51 06/24/20 00:06 06/24/20 06:06 Glucose (Fingerstick) 124 mg/dL (70-99) 97 mg/dL (70-99) 104 mg/dL (70-99) 123 mg/dL (70-99) Test 06/24/20 08:25 O2 Saturation 95 % (92-99) Arterial Blood pH 7.44 (7.35-7.45) Arterial Blood pCO2 at Patient Temp 39 mmHg (35-46) Arterial Blood pO2 at Patient Temp 74 mmHg (75-108) Arterial Blood HCO3 26 mmol/L (21-28) Arterial Blood Base Excess 2 mmol/L (-3-3) FiO2 40% Medications Active Scripts Medications Dose Route/Sig Max Daily Dose Days Date Category Acetaminophen-Diphenhyd 500-25 (Acetaminophen/Diphenhydramine) 1 Each Tablet 1 Each PO HS PRN 06/18/20 Reported Naproxen 500 Mg Tablet 1 Tab PO BID PRN 30 06/18/20 Reported Tramadol Hcl 50 Mg Tablet 50 Mg PO Q4HRS 06/18/20 Reported Levothyroxine Sodium 75 Mcg Tablet 1 Tab PO DAILY 06/18/20 Reported Adderall 20 Mg Tablet (Dextroamphetamine/Amphetamine) 20 Mg Tablet 1 Tab PO DAILY MDD 1 Tablet(s) 5 06/18/20 Reported Prozac (Fluoxetine Hcl) 20 Mg Capsule 1 Cap PO DAILYWBKFT 06/18/20 Reported Comments CXR 06/20/20 IMPRESSION: Increased consolidative changes the left lung base may represent degree of small pleural effusion with adjacent compressive atelectasis versus infiltrate. cxr 06/21 reviewed no change Impression . IMPRESSION: 1. Acute respiratory failure secondary to [id number] cardiopulmonary arrest/ anoxic encephalopathy 2. Ccq-hd-[id number] ventricular fibrillation and asystole leading to anoxic brain injury. 3. Anoxic encephalopathy. 4. COVID neg 5. Morbid obesity. 6. Leukocytosis--improved 7. Lactic acidosis secondary to sdi-vo-xjcvwfxw cardiac arrest. 8. Abnormal x-ray revealing bibasilar atelectasis, infiltrates. 9. Pneumothorax secondary to CPR.resolved on cxr, no air leak 10. Sternal sternal fracture secondary to CPR. 11. ? Pneumonia positive, gram-negative, gram-positive. Plan . PLAN: continue current support with assist control ventilation, Fi02 40%/ off sedation every am. I have observed her multiple times while off sedation ev . Not seeing sig improvement and no appropriate response. This is c/w Anoxic encephalopathy Follow CXR/ABG-- no changes Continue Chest tube to suction, no leak Follow ID recs for ABX on zosyn Follow neurology recs Follow Cardiology recs DVT/GI PPX D/W RN and RT Poor prognosis 2/2 anoxic injury d/w son / at bedside every day. Options given. Trach with LTAC placement to see any improvement vs comfort care and extubation. Family leaning towards aggressive care.d/w Cardiology. Will need cath cct 30 min ANGELA MORENO MD Jun 24, 2020 09:41
[2020-06-24] MEDS: ATORVASTATIN CALCIUM 20 MG TABLET PO SCH (20:46)
[2020-06-24] MEDS: ENOXAPARIN 40 MG/0.4 ML SYRINGE. SQ SCH (20:46)
[2020-06-24] MEDS: fentaNYL PF VIAL 100 MCG/2 ML VIAL IVP PRN (20:54)
[2020-06-25] VITALS (28 sets, daily range): BP systolic 90–113; BP diastolic 55–78
[2020-06-25] MEDS: PROPOFOL 100 ML IV PRN ×2 (02:51→06:12)
[2020-06-25] MEDS: DEXMEDETOMIDINE 400 MCG in IV NORMAL SALINE 100ML 96 ML IV PRN (04:43)
[2020-06-25] MEDS: PIPERACILLIN/TAZOBACTAM 3.375 GM in IV NORMAL SALINE 50ML 50 ML IV SCH ×3 (05:52→17:26)
[2020-06-25] MEDS: LEVOTHYROXINE 75 MCG TABLET PO SCH (05:52)
--- NOTE | 2020-06-25 07:08 | PDOC ---
Infectious Disease Note Subjective: Subjective pt is intubated on vent pt moves , at times agitated, no purposeful movement appears to be posturing Vital Signs: Vital Signs Vital Signs Date Time Temp Pulse Resp B/P (MAP) Pulse Ox O2 Delivery O2 Flow Rate FiO2 06/25/20 06:00 56 22 90/55 (67) 95 Ventilator 06/25/20 04:00 98.9 98.9 06/24/20 21:24 15.0 Physical Exam: PHYSICAL EXAM GENERAL: Sedated, orally intubated female, not in distress. HEENT: Both pupils are round and reacting. No conjunctival lesion. Mouth cannot be visualized, orally intubated. NECK: Supple. No JVP, no lymphadenopathy. LUNGS: Decreased breath sounds bilaterally. HEART: S1, S2, regular. No gallop or murmur. ABDOMEN: Soft, nontender. No organomegaly. EXTREMITIES: No edema or cyanosis. toe amputation of the Rt foot,healed scars SKIN: Unremarkable. NEUROLOGICAL: The patient is sedated, orally intubated. Medications: Inpatient Meds: Current Medications Medications (Trade) Dose Ordered Sig/Rosalio Start Time Stop Time Status Last Admin Dose Admin Albuterol/ Ipratropium (Duoneb) 3 ml RTQID 06/18/20 20:00 06/24/20 20:00 3 ML Amiodarone HCl (Cordarone) 400 mg DAILY 06/20/20 09:00 06/24/20 09:10 400 MG Amiodarone HCl 150 mg/Dextrose 103 ml @ 618 mls/hr 1X ONCE 06/17/20 07:00 06/17/20 07:09 DC 06/17/20 07:00 618 MLS/HR Amiodarone HCl 450 mg/Dextrose 259 ml @ 33 mls/hr 1X ONCE 06/17/20 07:00 06/17/20 14:50 DC Aspirin (Aspirin Chewable) 81 mg 1X ONCE 06/19/20 15:30 06/19/20 15:37 DC 06/19/20 15:57 81 MG Atorvastatin Calcium (Lipitor) 20 mg QHS 06/19/20 21:00 06/24/20 20:46 20 MG Atropine Sulfate (ATROPINE 0.5mg SYRINGE) 0.5 mg PRN Q5MIN PRN 06/21/20 10:45 Buspirone HCl (Buspar) 30 mg Q8H 06/17/20 12:00 06/17/20 12:39 DC 06/17/20 12:31 30 MG Carvedilol (Coreg) 3.125 mg BIDWMEALS 06/19/20 17:00 06/24/20 09:10 3.125 MG Dexmedetomidine HCl 400 mcg/ Sodium Chloride 100 ml @ 0 mls/hr CONT PRN 06/21/20 10:45 06/25/20 04:43 15.7 MLS/HR Enoxaparin Sodium (Lovenox 40mg Syringe) 40 mg Q24H 06/18/20 21:00 06/24/20 20:46 40 MG Famotidine (Pepcid Vial) 20 mg BID 06/18/20 21:00 06/24/20 20:46 20 MG Fentanyl Citrate (Fentanyl 2ml Vial) 50 mcg PRN Q2HR PRN 06/23/20 16:45 06/24/20 20:54 50 MCG Furosemide (Lasix) 40 mg 1X ONCE 06/20/20 13:30 06/20/20 13:31 DC 06/20/20 14:38 40 MG Glycerin/ Hypromellose/ Polyethylene (Artificial Tears) 1 drop PRN Q15MIN PRN 06/17/20 12:00 06/17/20 12:39 DC Heparin Sodium (Porcine) (Heparin Sodium) 5,000 unit BID 06/17/20 21:00 06/17/20 12:39 DC Info (CONTRAST GIVEN -- Rx MONITORING) 1 each PRN DAILY PRN 06/17/20 08:15 06/19/20 08:14 DC Iohexol (Omnipaque 300 Mg/ml) 75 ml 1X ONCE 06/17/20 08:15 06/17/20 08:16 DC 06/17/20 08:17 75 ML Iohexol (Omnipaque 350 Mg/ml) 100 ml 1X ONCE 06/17/20 08:15 06/17/20 08:16 DC 06/17/20 08:17 100 ML Levothyroxine Sodium (Synthroid) 75 mcg DAILY06 06/18/20 21:00 06/25/20 05:52 75 MCG Lidocaine HCl (Lidocaine 1% 20ml Vial) 20 ml 1X ONCE 06/17/20 09:15 06/17/20 09:20 DC 06/17/20 09:15 20 ML Lidocaine HCl (Xylocaine-Mpf 1% 5ml Vial) 5 ml STK-MED ONCE 06/17/20 09:26 06/17/20 09:26 DC Magnesium Sulfate/ Dextrose 100 ml @ 100 mls/hr 1X ONCE 06/17/20 12:00 06/17/20 12:39 DC 06/17/20 12:22 100 MLS/HR Midazolam HCl (Versed) 5 mg Q1HR PRN 06/17/20 12:45 06/18/20 19:57 5 MG Pantoprazole Sodium (PROTONIX VIAL for IV PUSH) 40 mg DAILY 06/18/20 09:00 06/17/20 12:39 DC Piperacillin Sod/ Tazobactam Sod (Zosyn Per Pharmacy) 1 each PRN DAILY PRN 06/17/20 08:45 Piperacillin Sod/ Tazobactam Sod 3.375 gm/Sodium Chloride 50 ml @ 100 mls/hr Q6H 06/17/20 16:00 06/25/20 05:52 100 MLS/HR Piperacillin Sod/ Tazobactam Sod 4.5 gm/Sodium Chloride 100 ml @ 200 mls/hr 1X ONCE 06/17/20 12:15 06/17/20 12:44 Cancel Potassium Bicarbonate (Potassium Effervescent Tablet) 40 meq 1X ONCE 06/18/20 09:45 06/18/20 09:48 DC 06/18/20 10:00 40 MEQ Potassium Chloride/Water 100 ml @ 100 mls/hr 1X ONCE 06/20/20 13:30 06/20/20 14:29 DC 06/20/20 14:39 100 MLS/HR Propofol 100 ml @ 0 mls/hr CONT PRN 06/17/20 12:00 06/17/20 12:39 DC Propofol (Diprivan) 200 mg 1X ONCE 06/17/20 09:00 06/17/20 09:01 DC 06/17/20 09:00 200 MG Sodium Chloride 500 ml @ 500 mls/hr 1X PRN PRN 06/21/20 10:45 Vecuronium [place] (Norcuron Bolus) 10 mg PRN Q1HR PRN 06/17/20 12:00 06/17/20 12:39 DC Labs: Lab Laboratory Tests Test 06/24/20 08:25 06/24/20 11:47 06/24/20 17:47 O2 Saturation 95 % (92-99) Arterial Blood pH 7.44 (7.35-7.45) Arterial Blood pCO2 at Patient Temp 39 mmHg (35-46) Arterial Blood pO2 at Patient Temp 74 mmHg (75-108) Arterial Blood HCO3 26 mmol/L (21-28) Arterial Blood Base Excess 2 mmol/L (-3-3) FiO2 40% Glucose (Fingerstick) 127 mg/dL (70-99) 132 mg/dL (70-99) Objective: Assessment: 1. Cardiopulmonary arrest at home. 2. Leukocytosis, likely reactive. 3. Lactic acidosis from #1. 4. Respiratory failure. suspected aspiration 5. Anoxic Encephalopathy 6. Hypertension. 7. Pneumothorax.s/p CTS 8. Rib fracture and sternal fracture. Plan: Plan of Care covid neg culture neg cont zosyn cont supportive care Prognosis poor D/W SAÚL MAYES MD Jun 25, 2020 07:08
--- NOTE | 2020-06-25 07:36 | RAD ---
XR CHEST 1V INDICATION: Reason: Vent ICU#106 / Spl. Instructions: / History: . COMPARISON STUDY: 06/24/2020. FINDINGS: Life Support Devices: Stable endotracheal tube, enteric tube, right subclavian central venous cathete r, right basilar pleural catheter. Lungs: Normal lung volume. Stable left basilar opacities. Normal pulmonary vasculature. Pleura: Stable small left pleural effusion. Heart and Mediastinum: Stable cardiomediastinal silhouette and great vessels. Bones and Soft Tissues: Stable regional skeleton and soft tissues. IMPRESSION: 1. Stable life support devices. 2. Stable small left pleural effusion and left basilar opacities. Electronically signed by: Stephan Denis MD (06/25/2020 7:31 AM) [id number]
[2020-06-25] MEDS: CARVEDILOL 3.125 MG TABLET. PO SCH ×2 (08:00→17:00)
[2020-06-25] MEDS: IPRATRPIUM/ALBUTEROL 0.5/2.5MG 3 ML NEBU. NEB SCH ×3 (08:00→20:46)
[2020-06-25] MEDS: FAMOTIDINE 20 MG/2 ML VIAL IVP SCH ×2 (08:24→20:32)
[2020-06-25] MEDS: AMIODARONE HCL 200 MG TABLET. PO SCH (08:24)
[2020-06-25] MEDS: ASPIRIN CHEWABLE 81 MG TABLET. PO SCH (08:24)
--- NOTE | 2020-06-25 09:38 | PDOC2 ---
JONG HUERTAS Sonal [employer]ER 06/25/20 0938: CONSULT Date of Consult Date of Consult DATE: 06/25/20 TIME: 09:35 Reason for Consult Reason for Consult: trach placement Referring Physician Referring Physician: Dr Olivera Identification/Chief Complaint Chief Complaint cardiac arrest Source Source: Chart review, Patient History of Present Illness Reason for Visit: Found in cardiac arrest, outside of hospital setting, lengthy code --has been intubated, managed medically. Attempted trials of sedation removal without response from patient. Family wants to proceed with aggressive care Past Medical History Cardiovascular: HTN, Hyperlipidemia Infectious disease: Herpes simplex2 Endocrine: Hypothyroidism, Other (Obesity, has been on phentermine, also on Adderall) Past Surgical History Past Surgical History: Other (Lawnmower accident), No pertinent history Family History Family History: Coronary Artery Disease Social History Quit ALCOHOL: rare Current Problem List Problem List Problems Medical Problems: (1) Cardiac arrest Status: Acute (2) Fracture of ribs, multiple Status: Acute (3) Hyperglycemia Status: Acute (4) Pneumonia Status: Acute (5) Pneumothorax, right Status: Acute (6) Sternal fracture Status: Acute (7) VF (ventricular fibrillation) Status: Acute Current Medications Current Medications Current Medications Amiodarone HCl 150 mg/Dextrose 103 ml @ 618 mls/hr 1X ONCE IV Last administered on 06/17/20at 07:00; Start 06/17/20 at 07:00; Stop 06/17/20 at 07:09; Status DC Amiodarone HCl 450 mg/Dextrose 259 ml @ 33 mls/hr 1X ONCE IV ; Start 06/17/20 at 07:00; Stop 06/17/20 at 14:50; Status DC Sodium Chloride 1,000 ml @ 1,000 mls/hr 1X ONCE IV Last administered on 06/17/20at 08:11; Start 06/17/20 at 07:15; Stop 06/17/20 at 08:14; Status DC Midazolam HCl 100 ml @ 0 mls/hr 1X ONCE IV ; Start 06/17/20 at 07:15; Stop 06/17/20 at 07:16; Status DC Midazolam HCl (Versed) 5 mg STK-MED ONCE .ROUTE ; Start 06/17/20 at 07:17; Stop 06/17/20 at 07:17; Status DC Iohexol (Omnipaque 300 Mg/ml) 75 ml 1X ONCE IV Last administered on 06/17/20at 08:17; Start 06/17/20 at 08:15; Stop 06/17/20 at 08:16; Status DC Iohexol (Omnipaque 350 Mg/ml) 100 ml 1X ONCE IV Last administered on 06/17/20at 08:17; Start 06/17/20 at 08:15; Stop 06/17/20 at 08:16; Status DC Info (CONTRAST GIVEN -- Rx MONITORING) 1 each PRN DAILY PRN MC SEE COMMENTS; Start 06/17/20 at 08:15; Stop 06/19/20 at 08:14; Status DC Sodium Chloride 1,000 ml @ 1,000 mls/hr 1X ONCE IV Last administered on 06/17/20at 08:25; Start 06/17/20 at 08:15; Stop 06/17/20 at 09:14; Status DC Potassium Chloride/Water 100 ml @ 50 mls/hr 1X ONCE IV Last administered on 06/17/20at 10:16; Start 06/17/20 at 09:00; Stop 06/17/20 at 10:59; Status DC Piperacillin Sod/ Tazobactam Sod (Zosyn Per Pharmacy) 1 each PRN DAILY PRN MC SEE COMMENTS; Start 06/17/20 at 08:45 Piperacillin Sod/ Tazobactam Sod 4.5 gm/Sodium Chloride 100 ml @ 200 mls/hr 1X ONCE IV Last administered on 06/17/20at 10:15; Start 06/17/20 at 08:45; Stop 06/17/20 at 09:14; Status DC Sodium Chloride 1,000 ml @ 125 mls/hr Q8H IV Last administered on 06/17/20at 23:39; Start 06/17/20 at 09:00; Stop 06/18/20 at 08:59; Status DC Propofol (Diprivan) 200 mg 1X ONCE IV Last administered on 06/17/20at 09:00; Start 06/17/20 at 09:00; Stop 06/17/20 at 09:01; Status DC Propofol 100 ml @ As Directed STK-MED ONCE IV ; Start 06/17/20 at 09:05; Stop 06/17/20 at 09:05; Status DC Lidocaine HCl (Lidocaine 1% 20ml Vial) 20 ml 1X ONCE INJ Last administered on 06/17/20at 09:15; Start 06/17/20 at 09:15; Stop 06/17/20 at 09:20; Status DC Lidocaine HCl (Xylocaine-Mpf 1% 5ml Vial) 5 ml STK-MED ONCE .ROUTE ; Start 06/17/20 at 09:26; Stop 06/17/20 at 09:26; Status DC Sodium Chloride 1,000 ml @ 1,000 mls/hr 1X ONCE IV Last administered on 06/17/20at 10:15; Start 06/17/20 at 10:15; Stop 06/17/20 at 11:14; Status DC Propofol 100 ml @ 3.819 mls/ hr CONT PRN IV PER PROTOCOL Last administered on 06/25/20at 06:12; Start 06/17/20 at 10:45 Fentanyl Citrate (Fentanyl 2ml Vial) 100 mcg 1X ONCE IV ; Start 06/17/20 at 12:00; Stop 06/17/20 at 12:39; Status DC Midazolam HCl (Versed) 2 mg 1X ONCE IV ; Start 06/17/20 at 12:00; Stop 06/17/20 at 12:39; Status DC Magnesium Sulfate/ Dextrose 100 ml @ 100 mls/hr 1X ONCE IV Last administered on 06/17/20at 12:22; Start 06/17/20 at 12:00; Stop 06/17/20 at 12:39; Status DC Buspirone HCl (Buspar) 30 mg Q8H NG Last administered on 06/17/20at 12:31; Start 06/17/20 at 12:00; Stop 06/17/20 at 12:39; Status DC Glycerin/ Hypromellose/ Polyethylene (Artificial Tears) 1 drop Q6HRS OU ; Start 06/17/20 at 12:00; Stop 06/17/20 at 12:39; Status DC Glycerin/ Hypromellose/ Polyethylene (Artificial Tears) 1 drop PRN Q15MIN PRN OU DRY EYE; Start 06/17/20 at 12:00; Stop 06/17/20 at 12:39; Status DC Heparin Sodium (Porcine) (Heparin Sodium) 5,000 unit BID SQ ; Start 06/17/20 at 21:00; Stop 06/17/20 at 12:39; Status DC Pantoprazole Sodium (PROTONIX VIAL for IV PUSH) 40 mg DAILY IVP ; Start 06/18/20 at 09:00; Stop 06/17/20 at 12:39; Status DC Fentanyl Citrate 30 ml @ 0 mls/hr CONT PRN IV PER PROTOCOL.; Start 06/17/20 at 12:00; Stop 06/17/20 at 12:39; Status DC Propofol 100 ml @ 0 mls/hr CONT PRN IV PER PROTOCOL.; Start 06/17/20 at 12:00; Stop 06/17/20 at 12:39; Status DC Midazolam HCl 100 ml @ 0 mls/hr CONT PRN IV PER PROTOCOL; Start 06/17/20 at 12:00; Stop 06/17/20 at 12:39; Status DC Vecuronium [place] (Norcuron Bolus) 10 mg PRN Q1HR PRN IV SHIVERING; Start 06/17/20 at 12:00; Stop 06/17/20 at 12:39; Status DC Piperacillin Sod/ Tazobactam Sod 4.5 gm/Sodium Chloride 100 ml @ 200 mls/hr 1X ONCE IV ; Start 06/17/20 at 12:15; Stop 06/17/20 at 12:44; Status Cancel Midazolam HCl (Versed) 5 mg Q1HR PRN IV SEDATION Last administered on 06/18/20at 19:57; Start 06/17/20 at 12:45 Fentanyl Citrate (Fentanyl 2ml Vial) 100 mcg Q1HR IVP Last administered on 06/17/20at 18:55; Start 06/17/20 at 13:00; Stop 06/17/20 at 23:41; Status DC Piperacillin Sod/ Tazobactam Sod 3.375 gm/Sodium Chloride 50 ml @ 100 mls/hr Q6H IV Last administered on 06/25/20at 05:52; Start 06/17/20 at 16:00 Potassium Bicarbonate (Potassium Effervescent Tablet) 40 meq 1X ONCE NG Last administered on 06/18/20at 10:00; Start 06/18/20 at 09:45; Stop 06/18/20 at 09:48; Status DC Albuterol/ Ipratropium (Duoneb) 3 ml RTQID NEB Last administered on 06/25/20at 08:00; Start 06/18/20 at 20:00 Famotidine (Pepcid Vial) 20 mg BID IVP Last administered on 06/25/20at 08:24; Start 06/18/20 at 21:00 Enoxaparin Sodium (Lovenox 40mg Syringe) 40 mg Q24H SQ Last administered on 06/24/20at 20:46; Start 06/18/20 at 21:00 Levothyroxine Sodium (Synthroid) 75 mcg DAILY06 PO Last administered on 06/25/20 05:52; Start 06/18/20 at 21:00 Fentanyl Citrate 30 ml @ 0 mls/hr CONT PRN IV SEE PROTOCOL Last administered on 06/22/20 23:26; Start 06/18/20 at 20:15 Carvedilol (Coreg) 3.125 mg BIDWMEALS PO Last administered on 06/24/20 09:10; Start 06/19/20 at 17:00 Atorvastatin Calcium (Lipitor) 20 mg QHS PO Last administered on 06/24/20at 20:46; Start 06/19/20 at 21:00 Aspirin (Aspirin Chewable) 81 mg DAILYWBKFT PO Last administered on 06/25/20at 08:24; Start 06/20/20 at 08:00 Aspirin (Aspirin Chewable) 81 mg 1X ONCE PO Last administered on 06/19/20at 15:57; Start 06/19/20 at 15:30; Stop 06/19/20 at 15:37; Status DC Potassium Chloride/Water 100 ml @ 100 mls/hr 1X ONCE IV Last administered on 06/19/20at 15:57; Start 06/19/20 at 15:30; Stop 06/19/20 at 16:29; Status DC Amiodarone HCl (Cordarone) 400 mg DAILY PO Last administered on 06/25/20at 08:24; Start 06/20/20 at 09:00 Furosemide (Lasix) 40 mg 1X ONCE IVP Last administered on 06/20/20at 14:38; Start 06/20/20 at 13:30; Stop 06/20/20 at 13:31; Status DC Potassium Chloride/Water 100 ml @ 100 mls/hr 1X ONCE IV Last administered on 06/20/20at 14:39; Start 06/20/20 at 13:30; Stop 06/20/20 at 14:29; Status DC Dexmedetomidine HCl 400 mcg/ Sodium Chloride 100 ml @ 0 mls/hr CONT PRN IV PER PROTOCOL Last administered on 06/25/20at 04:43; Start 06/21/20 at 10:45 Sodium Chloride 500 ml @ 500 mls/hr 1X PRN PRN IV SEE COMMENTS; Start 06/21/20 at 10:45 Atropine Sulfate (ATROPINE 0.5mg SYRINGE) 0.5 mg PRN Q5MIN PRN IV SEE COMMENTS; Start 06/21/20 at 10:45 Fentanyl Citrate (Fentanyl 2ml Vial) 50 mcg PRN Q2HR PRN IVP PAIN Last administered on 06/24/20at 20:54; Start 06/23/20 at 16:45 Active Scripts Active Reported Acetaminophen-Diphenhyd 500-25 (Acetaminophen/Diphenhydramine) 1 Each Tablet 1 Each PO HS PRN Naproxen 500 Mg Tablet 1 Tab PO BID PRN 30 Days Tramadol Hcl 50 Mg Tablet 50 Mg PO Q4HRS Levothyroxine Sodium 75 Mcg Tablet 1 Tab PO DAILY Adderall 20 Mg Tablet (Dextroamphetamine/Amphetamine) 20 Mg Tablet 1 Tab PO DAILY MDD 1 Tablet(s) 5 Days Prozac (Fluoxetine Hcl) 20 Mg Capsule 1 Cap PO DAILYWBKFT Allergies Allergies: Coded Allergies: No Known Drug Allergies (Unverified , 06/17/20) ROS Review of System unable to obtain Physical Exam General: Other (sedated) HEENT: Other (og-TF) Lungs: Other (vent) Heart: Regular rate, Normal S1, Normal S2 Abdomen: Soft, No hepatosplenomegaly Extremities: No cyanosis Skin: No rashes, No breakdown Vitals VITALS Vital Signs Date Time Temp Pulse Resp B/P (MAP) Pulse Ox O2 Delivery O2 Flow Rate FiO2 06/25/20 09:00 59 22 98/63 (75) 95 Ventilator 06/25/20 08:00 97.9 97.9 06/24/20 21:24 15.0 Labs Labs Laboratory Tests Test 06/23/20 12:30 06/23/20 17:51 06/24/20 00:06 06/24/20 06:06 Glucose (Fingerstick) 124 mg/dL (70-99) 97 mg/dL (70-99) 104 mg/dL (70-99) 123 mg/dL (70-99) Test 06/24/20 08:25 06/24/20 11:47 06/24/20 17:47 06/25/20 09:05 O2 Saturation 95 % (92-99) 97 % (92-99) Arterial Blood pH 7.44 (7.35-7.45) 7.36 (7.35-7.45) Arterial Blood pCO2 at Patient Temp 39 mmHg (35-46) 49 mmHg (35-46) Arterial Blood pO2 at Patient Temp 74 mmHg (75-108) 104 mmHg (75-108) Arterial Blood HCO3 26 mmol/L (21-28) 27 mmol/L (21-28) Arterial Blood Base Excess 2 mmol/L (-3-3) 1 mmol/L (-3-3) FiO2 40% 100 Glucose (Fingerstick) 127 mg/dL (70-99) 132 mg/dL (70-99) Laboratory Tests Test 06/24/20 11:47 06/24/20 17:47 06/25/20 09:05 Glucose (Fingerstick) 127 mg/dL (70-99) 132 mg/dL (70-99) O2 Saturation 97 % (92-99) Arterial Blood pH 7.36 (7.35-7.45) Arterial Blood pCO2 at Patient Temp 49 mmHg (35-46) Arterial Blood pO2 at Patient Temp 104 mmHg (75-108) Arterial Blood HCO3 27 mmol/L (21-28) Arterial Blood Base Excess 1 mmol/L (-3-3) FiO2 100 Assessment/Plan Assessment/Plan resp failure s/p cardiac arrest tentatively plan trach in AM MELY PAUL MD 06/25/20 1909: CONSULT Assessment/Plan Assessment/Plan Pt seen and examined. Agree with Kalpana's note Pt intubated and non responsive will tentatively plan tracheostomy in AM. Thanks for consult! JONG HUERTAS APRN Jun 25, 2020 09:38 MELY PAUL MD Jun 25, 2020 19:09
--- NOTE | 2020-06-25 09:48 | PDOC2 ---
GI CONSULT Date of Service: DATE: 06/25/20 TIME: 09:48 Reason For Consult: PEG HPI: HPI: 59 y/o female admitted 06/17/20 s/p out of hospital cardiopulmonary arrest. An oxic encephalopathy - family ( Edis and son Stephen) wanting trach and PEG. No GI concerns per nurse - unclear if has stooled since admission, OG feeds recently started and tolerating. Family denies any chronic GI issues except constipation improved w/ daily stool softener. Colonoscopy about a year ago w/ Dr. Machado - diverticulosis and polyps (one villous adenoma). ?EGD too No GB, liver, pancreas, or PUD history. Previously took many OTC meds (Advil or Tylenol PM) to help sleep. Summary lists Naproxen. PMH: PMH: HTN, HLD, hypothyroidism, ADHD, lawnmower accident FH: Family History: Cancer (sister - colon), CAD Social History: Smoke: Quit ALCOHOL: none Drugs: Marijuana (tox screen positive), Other (tox + benzos) ROS: unable to obtain Vitals: Vitals: Vital Signs Date Time Temp Pulse Resp B/P (MAP) Pulse Ox O2 Delivery O2 Flow Rate FiO2 06/25/20 09:00 59 22 98/63 (75) 95 Ventilator 06/25/20 08:00 97.9 97.9 06/24/20 21:24 15.0 Labs: Labs: Laboratory Tests Test 06/24/20 11:47 06/24/20 17:47 06/25/20 09:05 Glucose (Fingerstick) 127 mg/dL (70-99) 132 mg/dL (70-99) O2 Saturation 97 % (92-99) Arterial Blood pH 7.36 (7.35-7.45) Arterial Blood pCO2 at Patient Temp 49 mmHg (35-46) Arterial Blood pO2 at Patient Temp 104 mmHg (75-108) Arterial Blood HCO3 27 mmol/L (21-28) Arterial Blood Base Excess 1 mmol/L (-3-3) FiO2 100 BLOOD CULTURE Final NO GROWTH AFTER 5 DAYS Allergies: Coded Allergies: No Known Drug Allergies (Unverified , 06/17/20) Imaging: Imaging: CXR 06/25 IMPRESSION: 1. Stable life support devices. 2. Stable small left pleural effusion and left basilar opacities. Head/Neck CTA 06/17 IMPRESSION: 1. No acute intracranial finding or evidence of hemodynamically significant stenosis or occlusion involving the neck or a renal arteries. 2. Small right pneumothorax and right third and fourth rib fractures. This is better characterized on the chest CT obtained on the same date. 3. Partial left upper lobe consolidation with surrounding groundglass infiltrate and bilateral posterior dependent atelectasis. Chest CTA 06/17 IMPRESSION: 1. No evidence of pulmonary thromboembolic disease. 2. Small right pneumothorax with right fourth-sixth rib fractures. Nondisplaced sternal body fracture. No mediastinal hematoma. 3. Left lung hazy opacities and dependent consolidations, probably contusion, infection, or aspiration. PE: GEN: intubated HEENT: Atraumatic LUNGS: vent, clear, chest tube HEART: RRR ABD: soft, quiet EXTREMITY: No edema SKIN: No rashes, no jaundice NEURO/PSYCH: sedated A/P: A/P: S/p cardiopulmonary arrest, anoxic encephalopathy, pneumothorax w/ chest tube Normocytic anemia, elevated AST and ALT (last checked 06/19 - improved then) CRC screen, h/o villous adenoma, FH CRC - UTD H/o constipation Diverticulosis NSAID use COVID negative 06/17 -- Discussed PEG procedure and possible risks w/ family - they want to proceed. Surgery following for tracheostomy. Could potentially proceed w/ PEG at some point after. ?also plans for heart cath? INR normal 06/19/20. Tolerating OG feeds. SHAHBAZ FOSS Jun 25, 2020 09:48
--- NOTE | 2020-06-25 10:14 | PDOC ---
PROGRESS NOTES Date of Service DATE: 06/25/20 TIME: 10:12 Assessment Problems Medical Problems: (1) Cardiac arrest Status: Acute (2) Fracture of ribs, multiple Status: Acute (3) Hyperglycemia Status: Acute (4) Pneumonia Status: Acute (5) Pneumothorax, right Status: Acute (6) Sternal fracture Status: Acute (7) VF (ventricular fibrillation) Status: Acute Anoxic encephalopathy, ventricular fibrillation and asystole, improving, but not making much more progress Negative for Covid Plan Will not be able to extubate, will need trach and PEG Supportive care Holding on additional neurological tests Family wants to try [address] [facility] Discussed with family Discussed with Dr. Olivera Subjective None Objective Vital Signs Date Time Temp Pulse Resp B/P (MAP) Pulse Ox O2 Delivery O2 Flow Rate FiO2 06/25/20 09:00 59 22 98/63 (75) 95 Ventilator 06/25/20 08:00 97.9 97.9 06/24/20 21:24 15.0 Intake and Output 06/25/20 07:00 Intake Total 3366 ml Output Total 1515 ml Balance 1851 ml IV Total 1179 ml Tube Feeding 1611 ml Other 576 ml Output Urine Total 1405 ml Chest Tube Drainage Total 110 ml PHYSICAL EXAM Sedated on ventilator PERRL. EOMI. CN: no focal findings. Muscle tone: normal. Muscle strength: Moving arms and legs DTR: 1+ Plantar reflex: Flexor Gait: not examined. Sensory exam: Not cooperative Cerebellar: Not cooperative Review of Relevant I have reviewed the following items afua (where applicable) has been applied. Labs Laboratory Tests Test 06/23/20 12:30 06/23/20 17:51 06/24/20 00:06 06/24/20 06:06 Glucose (Fingerstick) 124 mg/dL (70-99) 97 mg/dL (70-99) 104 mg/dL (70-99) 123 mg/dL (70-99) Test 06/24/20 08:25 06/24/20 11:47 06/24/20 17:47 06/25/20 09:05 O2 Saturation 95 % (92-99) 97 % (92-99) Arterial Blood pH 7.44 (7.35-7.45) 7.36 (7.35-7.45) Arterial Blood pCO2 at Patient Temp 39 mmHg (35-46) 49 mmHg (35-46) Arterial Blood pO2 at Patient Temp 74 mmHg (75-108) 104 mmHg (75-108) Arterial Blood HCO3 26 mmol/L (21-28) 27 mmol/L (21-28) Arterial Blood Base Excess 2 mmol/L (-3-3) 1 mmol/L (-3-3) FiO2 40% 100 Glucose (Fingerstick) 127 mg/dL (70-99) 132 mg/dL (70-99) Laboratory Tests Test 06/24/20 11:47 06/24/20 17:47 06/25/20 09:05 Glucose (Fingerstick) 127 mg/dL (70-99) 132 mg/dL (70-99) O2 Saturation 97 % (92-99) Arterial Blood pH 7.36 (7.35-7.45) Arterial Blood pCO2 at Patient Temp 49 mmHg (35-46) Arterial Blood pO2 at Patient Temp 104 mmHg (75-108) Arterial Blood HCO3 27 mmol/L (21-28) Arterial Blood Base Excess 1 mmol/L (-3-3) FiO2 100 Microbiology 06/17/20 Blood Culture - Final, Complete NO GROWTH AFTER 5 DAYS Medications Current Medications Amiodarone HCl 150 mg/Dextrose 103 ml @ 618 mls/hr 1X ONCE IV Last administered on 06/17/20at 07:00; Start 06/17/20 at 07:00; Stop 06/17/20 at 07:09; Status DC Amiodarone HCl 450 mg/Dextrose 259 ml @ 33 mls/hr 1X ONCE IV ; Start 06/17/20 at 07:00; Stop 06/17/20 at 14:50; Status DC Sodium Chloride 1,000 ml @ 1,000 mls/hr 1X ONCE IV Last administered on 06/17/20at 08:11; Start 06/17/20 at 07:15; Stop 06/17/20 at 08:14; Status DC Midazolam HCl 100 ml @ 0 mls/hr 1X ONCE IV ; Start 06/17/20 at 07:15; Stop 06/17/20 at 07:16; Status DC Midazolam HCl (Versed) 5 mg STK-MED ONCE .ROUTE ; Start 06/17/20 at 07:17; Stop 06/17/20 at 07:17; Status DC Iohexol (Omnipaque 300 Mg/ml) 75 ml 1X ONCE IV Last administered on 06/17/20at 08:17; Start 06/17/20 at 08:15; Stop 06/17/20 at 08:16; Status DC Iohexol (Omnipaque 350 Mg/ml) 100 ml 1X ONCE IV Last administered on 06/17/20at 08:17; Start 06/17/20 at 08:15; Stop 06/17/20 at 08:16; Status DC Info (CONTRAST GIVEN -- Rx MONITORING) 1 each PRN DAILY PRN MC SEE COMMENTS; Start 06/17/20 at 08:15; Stop 06/19/20 at 08:14; Status DC Sodium Chloride 1,000 ml @ 1,000 mls/hr 1X ONCE IV Last administered on 06/17/20at 08:25; Start 06/17/20 at 08:15; Stop 06/17/20 at 09:14; Status DC Potassium Chloride/Water 100 ml @ 50 mls/hr 1X ONCE IV Last administered on 06/17/20at 10:16; Start 06/17/20 at 09:00; Stop 06/17/20 at 10:59; Status DC Piperacillin Sod/ Tazobactam Sod (Zosyn Per Pharmacy) 1 each PRN DAILY PRN MC SEE COMMENTS; Start 06/17/20 at 08:45 Piperacillin Sod/ Tazobactam Sod 4.5 gm/Sodium Chloride 100 ml @ 200 mls/hr 1X ONCE IV Last administered on 06/17/20at 10:15; Start 06/17/20 at 08:45; Stop 06/17/20 at 09:14; Status DC Sodium Chloride 1,000 ml @ 125 mls/hr Q8H IV Last administered on 06/17/20at 23:39; Start 06/17/20 at 09:00; Stop 06/18/20 at 08:59; Status DC Propofol (Diprivan) 200 mg 1X ONCE IV Last administered on 06/17/20at 09:00; Start 06/17/20 at 09:00; Stop 06/17/20 at 09:01; Status DC Propofol 100 ml @ As Directed STK-MED ONCE IV ; Start 06/17/20 at 09:05; Stop 06/17/20 at 09:05; Status DC Lidocaine HCl (Lidocaine 1% 20ml Vial) 20 ml 1X ONCE INJ Last administered on 06/17/20at 09:15; Start 06/17/20 at 09:15; Stop 06/17/20 at 09:20; Status DC Lidocaine HCl (Xylocaine-Mpf 1% 5ml Vial) 5 ml STK-MED ONCE .ROUTE ; Start 06/17/20 at 09:26; Stop 06/17/20 at 09:26; Status DC Sodium Chloride 1,000 ml @ 1,000 mls/hr 1X ONCE IV Last administered on 06/17/20at 10:15; Start 06/17/20 at 10:15; Stop 06/17/20 at 11:14; Status DC Propofol 100 ml @ 3.819 mls/ hr CONT PRN IV PER PROTOCOL Last administered on 06/25/20at 06:12; Start 06/17/20 at 10:45 Fentanyl Citrate (Fentanyl 2ml Vial) 100 mcg 1X ONCE IV ; Start 06/17/20 at 12:00; Stop 06/17/20 at 12:39; Status DC Midazolam HCl (Versed) 2 mg 1X ONCE IV ; Start 06/17/20 at 12:00; Stop 06/17/20 at 12:39; Status DC Magnesium Sulfate/ Dextrose 100 ml @ 100 mls/hr 1X ONCE IV Last administered on 06/17/20at 12:22; Start 06/17/20 at 12:00; Stop 06/17/20 at 12:39; Status DC Buspirone HCl (Buspar) 30 mg Q8H NG Last administered on 06/17/20at 12:31; Start 06/17/20 at 12:00; Stop 06/17/20 at 12:39; Status DC Glycerin/ Hypromellose/ Polyethylene (Artificial Tears) 1 drop Q6HRS OU ; Start 06/17/20 at 12:00; Stop 06/17/20 at 12:39; Status DC Glycerin/ Hypromellose/ Polyethylene (Artificial Tears) 1 drop PRN Q15MIN PRN OU DRY EYE; Start 06/17/20 at 12:00; Stop 06/17/20 at 12:39; Status DC Heparin Sodium (Porcine) (Heparin Sodium) 5,000 unit BID SQ ; Start 06/17/20 at 21:00; Stop 06/17/20 at 12:39; Status DC Pantoprazole Sodium (PROTONIX VIAL for IV PUSH) 40 mg DAILY IVP ; Start 06/18/20 at 09:00; Stop 06/17/20 at 12:39; Status DC Fentanyl Citrate 30 ml @ 0 mls/hr CONT PRN IV PER PROTOCOL.; Start 06/17/20 at 12:00; Stop 06/17/20 at 12:39; Status DC Propofol 100 ml @ 0 mls/hr CONT PRN IV PER PROTOCOL.; Start 06/17/20 at 12:00; Stop 06/17/20 at 12:39; Status DC Midazolam HCl 100 ml @ 0 mls/hr CONT PRN IV PER PROTOCOL; Start 06/17/20 at 12:00; Stop 06/17/20 at 12:39; Status DC Vecuronium [place] (Norcuron Bolus) 10 mg PRN Q1HR PRN IV SHIVERING; Start 06/17/20 at 12:00; Stop 06/17/20 at 12:39; Status DC Piperacillin Sod/ Tazobactam Sod 4.5 gm/Sodium Chloride 100 ml @ 200 mls/hr 1X ONCE IV ; Start 06/17/20 at 12:15; Stop 06/17/20 at 12:44; Status Cancel Midazolam HCl (Versed) 5 mg Q1HR PRN IV SEDATION Last administered on 06/18/20at 19:57; Start 06/17/20 at 12:45 Fentanyl Citrate (Fentanyl 2ml Vial) 100 mcg Q1HR IVP Last administered on 06/17/20at 18:55; Start 06/17/20 at 13:00; Stop 06/17/20 at 23:41; Status DC Piperacillin Sod/ Tazobactam Sod 3.375 gm/Sodium Chloride 50 ml @ 100 mls/hr Q6H IV Last administered on 06/25/20at 05:52; Start 06/17/20 at 16:00 Potassium Bicarbonate (Potassium Effervescent Tablet) 40 meq 1X ONCE NG Last administered on 06/18/20at 10:00; Start 06/18/20 at 09:45; Stop 06/18/20 at 09:48; Status DC Albuterol/ Ipratropium (Duoneb) 3 ml RTQID NEB Last administered on 06/25/20at 08:00; Start 06/18/20 at 20:00 Famotidine (Pepcid Vial) 20 mg BID IVP Last administered on 06/25/20at 08:24; Start 06/18/20 at 21:00 Enoxaparin Sodium (Lovenox 40mg Syringe) 40 mg Q24H SQ Last administered on 06/24/20at 20:46; Start 06/18/20 at 21:00 Levothyroxine Sodium (Synthroid) 75 mcg DAILY06 PO Last administered on 06/25/20 05:52; Start 06/18/20 at 21:00 Fentanyl Citrate 30 ml @ 0 mls/hr CONT PRN IV SEE PROTOCOL Last administered on 06/22/20 23:26; Start 06/18/20 at 20:15 Carvedilol (Coreg) 3.125 mg BIDWMEALS PO Last administered on 06/24/20 09:10; Start 06/19/20 at 17:00 Atorvastatin Calcium (Lipitor) 20 mg QHS PO Last administered on 06/24/20at 20:46; Start 06/19/20 at 21:00 Aspirin (Aspirin Chewable) 81 mg DAILYWBKFT PO Last administered on 06/25/20at 08:24; Start 06/20/20 at 08:00 Aspirin (Aspirin Chewable) 81 mg 1X ONCE PO Last administered on 06/19/20at 15:57; Start 06/19/20 at 15:30; Stop 06/19/20 at 15:37; Status DC Potassium Chloride/Water 100 ml @ 100 mls/hr 1X ONCE IV Last administered on 06/19/20at 15:57; Start 06/19/20 at 15:30; Stop 06/19/20 at 16:29; Status DC Amiodarone HCl (Cordarone) 400 mg DAILY PO Last administered on 06/25/20at 08:24; Start 06/20/20 at 09:00 Furosemide (Lasix) 40 mg 1X ONCE IVP Last administered on 06/20/20at 14:38; Start 06/20/20 at 13:30; Stop 06/20/20 at 13:31; Status DC Potassium Chloride/Water 100 ml @ 100 mls/hr 1X ONCE IV Last administered on 06/20/20at 14:39; Start 06/20/20 at 13:30; Stop 06/20/20 at 14:29; Status DC Dexmedetomidine HCl 400 mcg/ Sodium Chloride 100 ml @ 0 mls/hr CONT PRN IV PER PROTOCOL Last administered on 06/25/20at 04:43; Start 06/21/20 at 10:45 Sodium Chloride 500 ml @ 500 mls/hr 1X PRN PRN IV SEE COMMENTS; Start 06/21/20 at 10:45 Atropine Sulfate (ATROPINE 0.5mg SYRINGE) 0.5 mg PRN Q5MIN PRN IV SEE COMMENTS; Start 06/21/20 at 10:45 Fentanyl Citrate (Fentanyl 2ml Vial) 50 mcg PRN Q2HR PRN IVP PAIN Last administered on 06/24/20at 20:54; Start 06/23/20 at 16:45 Active Scripts Active Reported Acetaminophen-Diphenhyd 500-25 (Acetaminophen/Diphenhydramine) 1 Each Tablet 1 Each PO HS PRN Naproxen 500 Mg Tablet 1 Tab PO BID PRN 30 Days Tramadol Hcl 50 Mg Tablet 50 Mg PO Q4HRS Levothyroxine Sodium 75 Mcg Tablet 1 Tab PO DAILY Adderall 20 Mg Tablet (Dextroamphetamine/Amphetamine) 20 Mg Tablet 1 Tab PO OMKAR Y MDD 1 Tablet(s) 5 Days Prozac (Fluoxetine Hcl) 20 Mg Capsule 1 Cap PO DAILYWBKFT Vitals/I & O Vital Sign - Last 24 Hours 06/24/20 06/24/20 06/24/20 06/24/20 11:00 11:23 12:00 12:00 Temp 98.9 98.9 Pulse 60 66 Resp 20 22 B/P (MAP) 111/63 (79) 113/67 (82) Pulse Ox 96 97 97 O2 Delivery Ventilator Ventilator Ventilator Mechanical Ventilator 06/24/20 06/24/20 06/24/20 06/24/20 13:00 14:00 15:00 15:52 Pulse 57 63 55 Resp 20 20 24 B/P (MAP) 100/62 (75) 98/55 (69) 90/52 (65) Pulse Ox 96 96 97 98 O2 Delivery Ventilator Ventilator Ventilator Ventilator 06/24/20 06/24/20 06/24/20 06/24/20 16:00 16:00 17:00 17:00 Temp 98.6 98.6 Pulse 63 63 56 Resp 22 22 B/P (MAP) 90/57 (68) 90/57 98/60 (73) Pulse Ox 98 98 O2 Delivery Ventilator Mechanical Ventilator Ventilator 06/24/20 06/24/20 06/24/20 06/24/20 18:00 19:00 19:30 20:00 Temp 98.2 98.2 Pulse 55 63 56 Resp 22 22 22 B/P (MAP) 97/64 (75) 105/65 (78) 100/63 (75) Pulse Ox 98 98 96 O2 Delivery Ventilator Ventilator Mechanical Ventilator Ventilator 06/24/20 06/24/20 06/24/20 06/24/20 20:24 21:00 21:24 22:00 Pulse 56 54 Resp 22 22 B/P (MAP) 103/68 (80) 103/63 (76) Pulse Ox 98 97 98 98 O2 Delivery Ventilator Ventilator Ventilator O2 Flow Rate 15.0 06/24/20 06/25/20 06/25/20 06/25/20 23:00 00:00 00:05 00:37 Pulse 52 54 Resp 22 22 B/P (MAP) 111/66 (81) 102/69 (80) Pulse Ox 99 100 96 O2 Delivery Ventilator Ventilator Mechanical Ventilator Ventilator 06/25/20 06/25/20 06/25/20 06/25/20 01:00 02:00 03:00 04:00 Temp 98.4 98.9 98.4 98.9 Pulse 52 51 54 52 Resp 24 22 B/P (MAP) 98/61 (73) 104/65 (78) 102/63 (76) 104/64 (77) Pulse Ox 95 96 94 95 O2 Delivery Ventilator Ventilator Ventilator Ventilator 06/25/20 06/25/20 06/25/20 06/25/20 04:15 04:52 05:00 06:00 Pulse 52 56 Resp 22 B/P (MAP) 105/64 (78) 90/55 (67) Pulse Ox 95 96 95 O2 Delivery Mechanical Ventilator Ventilator Ventilator Ventilator 06/25/20 06/25/20 06/25/20 06/25/20 07:00 08:00 08:00 08:20 Temp 97.9 97.9 Pulse 60 52 Resp 22 22 B/P (MAP) 105/66 (79) 96/57 (70) Pulse Ox 95 95 93 O2 Delivery Ventilator Ventilator Mechanical Ventilator Ventilator 06/25/20 06/25/20 08:24 09:00 Pulse 56 59 Resp 22 B/P (MAP) 98/55 98/63 (75) Pulse Ox 95 O2 Delivery Ventilator Intake and Output 06/24/20 06/24/20 06/25/20 15:00 23:00 07:00 Intake Total 300 ml 1433 ml 1633 ml Output Total 525 ml 395 ml 595 ml Balance -225 ml 1038 ml 1038 ml Justicifation of Admission Dx: Justifications for Admission: Justification of Admission Dx: N/A JEFF FLORES MD Jun 25, 2020 10:14
--- NOTE | 2020-06-25 10:15 | PDOC ---
PULMONARY PROGRESS NOTES DATE: 06/25/20 TIME: 10:07 Subjective S/P cardiac arrest 06/17---PEA / V-fib remains on vent support no overnight concerns Vitals Vital Signs Date Time Temp Pulse Resp B/P (MAP) Pulse Ox O2 Delivery O2 Flow Rate FiO2 06/25/20 09:00 59 22 98/63 (75) 95 Ventilator 06/25/20 08:00 97.9 97.9 06/24/20 21:24 15.0 Comments intubated sedated Lungs: Clear Cardiovascular: S1 Abdomen: Soft Extremities: No Edema Labs Laboratory Tests Test 06/23/20 12:30 06/23/20 17:51 06/24/20 00:06 06/24/20 06:06 Glucose (Fingerstick) 124 mg/dL (70-99) 97 mg/dL (70-99) 104 mg/dL (70-99) 123 mg/dL (70-99) Test 06/24/20 08:25 06/24/20 11:47 06/24/20 17:47 06/25/20 09:05 O2 Saturation 95 % (92-99) 97 % (92-99) Arterial Blood pH 7.44 (7.35-7.45) 7.36 (7.35-7.45) Arterial Blood pCO2 at Patient Temp 39 mmHg (35-46) 49 mmHg (35-46) Arterial Blood pO2 at Patient Temp 74 mmHg (75-108) 104 mmHg (75-108) Arterial Blood HCO3 26 mmol/L (21-28) 27 mmol/L (21-28) Arterial Blood Base Excess 2 mmol/L (-3-3) 1 mmol/L (-3-3) FiO2 40% 100 Glucose (Fingerstick) 127 mg/dL (70-99) 132 mg/dL (70-99) Laboratory Tests Test 06/24/20 11:47 06/24/20 17:47 06/25/20 09:05 Glucose (Fingerstick) 127 mg/dL (70-99) 132 mg/dL (70-99) O2 Saturation 97 % (92-99) Arterial Blood pH 7.36 (7.35-7.45) Arterial Blood pCO2 at Patient Temp 49 mmHg (35-46) Arterial Blood pO2 at Patient Temp 104 mmHg (75-108) Arterial Blood HCO3 27 mmol/L (21-28) Arterial Blood Base Excess 1 mmol/L (-3-3) FiO2 100 Medications Active Scripts Medications Dose Route/Sig Max Daily Dose Days Date Category Acetaminophen-Diphenhyd 500-25 (Acetaminophen/Diphenhydramine) 1 Each Tablet 1 Each PO HS PRN 06/18/20 Reported Naproxen 500 Mg Tablet 1 Tab PO BID PRN 30 06/18/20 Reported Tramadol Hcl 50 Mg Tablet 50 Mg PO Q4HRS 06/18/20 Reported Levothyroxine Sodium 75 Mcg Tablet 1 Tab PO DAILY 06/18/20 Reported Adderall 20 Mg Tablet (Dextroamphetamine/Amphetamine) 20 Mg Tablet 1 Tab PO DAILY MDD 1 Tablet(s) 5 06/18/20 Reported Prozac (Fluoxetine Hcl) 20 Mg Capsule 1 Cap PO DAILYWBKFT 06/18/20 Reported Comments CXR 06/25/20 IMPRESSION: 1. Stable life support devices. 2. Stable small left pleural effusion and left basilar opacities Impression . IMPRESSION: 1. Acute respiratory failure secondary to [id number] cardiopulmonary arrest/ anoxic encephalopathy 2. Cvt-yg-amvpychl ventricular fibrillation and asystole leading to anoxic brain injury. 3. Anoxic encephalopathy. 4. COVID neg 5. Morbid obesity. 6. Leukocytosis--improved 7. Lactic acidosis secondary to nvl-tj-fiazwupr cardiac arrest. 8. Abnormal x-ray revealing bibasilar atelectasis, infiltrates. 9. Pneumothorax secondary to CPR.resolved on cxr, no air leak 10. Sternal sternal fracture secondary to CPR. 11. ? Pneumonia positive, gram-negative, gram-positive. Plan . PLAN: Continue current support with assist control ventilation, Fi02 40% PEEP 5 Clinically consistent with Anoxic encephalopathy Consult Surgery for trach, planned for trach in am Consult GI for PEG tube placement Follow CXR/ABG-- No changes Clamp Chest tube today, and plan to D/C in am Follow ID recs for ABX on zosyn Follow neurology recs Follow Cardiology recs DVT/GI PPX D/W RN and RT D/W Family, they would like to give her 30 days to allow time for possible recovery Social work for D/C planning -- screen for LTACH Critical Care Time [id number] AM PT. is FULL CODE ANGELA MORENO MD Jun 25, 2020 10:15
--- NOTE | 2020-06-25 11:29 | NUR ---
SS following up with discharge planning. SS reviewed pt chart and discussed with pt RN. Pt is currently on the vent at 40%. COVID19 negative. Pt having heart cath today. Trach scheduled for tomorrow. Peg to be placed at some point later this week. Pt now has insurance of [employer] PPO listed on face sheet. SS phoned and faxed face sheet to [facility], ; fax [phone], to check for LTACH benefits. SS will continue to follow for discharge planning.
--- NOTE | 2020-06-25 11:43 | PDOC ---
[employer] PROGRESS NOTE Date of Service DOS: DATE: 06/25/20 TIME: 11:41 Chief Complaint Chief Complaint Cardiac arrest with resuscitation and probable pneumonia, sternal fracture and pneumothorax secondary to CPR, leukocytosis, electrolyte disturbance, hypokalemia, lactic acidosis, elevated troponin. History of Present Illness History of Present Illness 06/25/2020 Patient seen and examined in the ICU She remains intubated Discussed with RN Discussed with neurologist Vent settings as follows AC/18/500/40 percent with 5 of PEEP She has a tracheostomy that is clean dry and intact Family present She remains critically ill The patient is a pleasant 59-year-old female who had COVID-19 two months ago. She had a witnessed cardiac arrest today. The family started CPR, they called the ambulance. She has now been resuscitated and intubated. She is currently being examined in the ER where she is starting to have some posturing. She is not really responding to pain either, but her pupils are reactive. 06/24: Patient seen in ICU. On vent, FiO2 40%, PEEP 5. I believe she has anoxic encephalopathy. No purposeful movements, and unsafe off sedation. I believe family is to discuss possible withdrawal of care soon, versus further aggressive treatment with trach and PEG. Discussed with RN. 06/23: Afebrile. On vent with FiO2 40%, PEEP 5. She is restless, no purposeful movements off sedation. Discussed with RN, continue to try to wean off vent. 06/22: No acute events overnight. Afebrile. On vent FiO2 40%, PEEP 5. Working towards extubation. Charts and labs reviewed, continue current medical management. 06/21: Patient narcisa in ICU on ventilator. FiO2 40%, PEEP 5%. She is afebrile. Discussed with RN, no acute vents overnight. Charts and labs reviewed. Continue antibiotic treatment with Zosyn. 06/20: Patient seen in ICU. She remains on ventilator, FiO2 40%, PEEP 5. Afebrile. No acute events overnight. Echocardiogram obtained, showing mildly dilated left ventricle with global hypokinesis, estimated ejection fraction 25%. 06/19: Patient seen in ICU. On ventilator, FiO2 40%, PEEP 5. Continue IV Zosyn. Follow neurology and cardiology recommendations. Chest tube management and vent management per pulmonology. 06/18: Patient seen in ICU. Afebrile. Ventilated, FiO2 40%, PEEP 5. Continue antibiotic coverage. Charts and labs reviewed. Discussed with RN, no acute events overnight. COVID-19 negative. Echocardiogram pending. Vitals/I&O Vitals/I&O: Vital Signs Date Time Temp Pulse Resp B/P (MAP) Pulse Ox O2 Delivery O2 Flow Rate FiO2 06/25/20 11:00 60 22 104/64 (77) 98 Ventilator 06/25/20 08:00 97.9 97.9 06/24/20 21:24 15.0 I & O 06/24/20 06/24/20 06/25/20 15:00 23:00 07:00 Intake Total 300 ml 1433 ml 1633 ml Output Total 525 ml 395 ml 595 ml Balance -225 ml 1038 ml 1038 ml Physical Exam Physical Exam: GENERAL: Sedated, orally intubated female, not in distress. HEENT: Both pupils are round and reacting. No conjunctival lesion. Mouth cannot be visualized, orally intubated. NECK: Supple. No JVP, no lymphadenopathy. LUNGS: Decreased breath sounds bilaterally. HEART: S1, S2, regular. No gallop or murmur. ABDOMEN: Soft, nontender. No organomegaly. EXTREMITIES: No edema or cyanosis. toe amputation of the Rt foot,healed scars SKIN: Unremarkable. NEUROLOGICAL: The patient is sedated, orally intubated. General: Other (sedated) Heart: Regular rate, Normal S1, Normal S2 Lungs: Clear Abdomen: Soft, No hepatosplenomegaly Extremities: No cyanosis Skin: No rashes, No breakdown Labs Labs: Laboratory Tests Test 06/24/20 11:47 06/24/20 17:47 06/25/20 09:05 Glucose (Fingerstick) 127 mg/dL (70-99) 132 mg/dL (70-99) O2 Saturation 97 % (92-99) Arterial Blood pH 7.36 (7.35-7.45) Arterial Blood pCO2 at Patient Temp 49 mmHg (35-46) Arterial Blood pO2 at Patient Temp 104 mmHg (75-108) Arterial Blood HCO3 27 mmol/L (21-28) Arterial Blood Base Excess 1 mmol/L (-3-3) FiO2 100 Assessment and Plan Assessmemt and Plan Problems Medical Problems: (1) Cardiac arrest Status: Acute (2) Fracture of ribs, multiple Status: Acute (3) Hyperglycemia Status: Acute (4) Pneumonia Status: Acute (5) Pneumothorax, right Status: Acute (6) Sternal fracture Status: Acute (7) VF (ventricular fibrillation) Status: Acute Cardiac arrest with resuscitation and probable pneumonia, sternal fracture and pneumothorax secondary to CPR, leukocytosis, electrolyte disturbance, h ypokalemia, lactic acidosis, elevated troponin. Plan ICU monitoring Vent weaning She is going for tracheostomy later this week We will likely need long-term acute care for a few weeks Home meds DVT prophylaxis Full code Appreciate subspecialist input CC time 31-minute Comment Review of Relevant I have reviewed the following items afua (where applicable) has been applied. Justifications for Admission Other Justification HUSSEIN GOODWIN III DO Jun 25, 2020 11:43
[2020-06-25] MEDS: MIDAZOLAM 100mg/100ml NS BAG 100 ML IV PRN ×2 (11:55→14:57)
--- NOTE | 2020-06-25 12:26 | NUR ---
ABG RESULTS REPORTED AT 0900 ARE WRONG PATIENT
--- NOTE | 2020-06-25 13:07 | RAD ---
Portable chest x-ray compared to similar exam from earlier the same day for respiratory failure. FINDINGS: Endotracheal tube, enteric tube, right-sided mely central lines are stable. Lung volumes remain low, and there is dense opacification of the left lung base consistent with atelectasis, infil trate, and/or effusion. Overall no significant interval change. IMPRESSION: 1. Stable chest x-ray. Electronically signed by: Harsh Posada MD (06/25/2020 1:05 PM) [id number]
[2020-06-25] MEDS ORDERED: IOHEXOL 300 MG/ML 100ML VIAL. ONE (14:21)
[2020-06-25] MEDS ORDERED: LIDOCAINE 1% PF 2 ML VIAL. ONE (14:21)
--- NOTE | 2020-06-25 14:30 | NUR ---
pt to construction craft laborer via bed, pyrotechnic assembler, RN. on sedation, all vss
[2020-06-25] MEDS ORDERED: NITROGLYCERIN 200 MCG/2 ML SYRINGE FOR CATH/VASC LAB. ONE (14:31)
[2020-06-25] MEDS ORDERED: VERAPAMIL 5 MG/2 ML VIAL. ONE (14:31)
[2020-06-25] MEDS ORDERED: HEPARIN for IV BOLUS 10,000 UNIT/10 ML VIAL. ONE (14:31)
[2020-06-25] MEDS ORDERED: IOHEXOL 300 MG/ML 100ML VIAL. IART ONE (15:15)
[2020-06-25] MEDS ORDERED: LIDOCAINE 1% PF 2 ML VIAL. INJ ONE (15:15)
[2020-06-25] MEDS ORDERED: VERAPAMIL 5 MG/2 ML VIAL. IART ONE (15:15)
[2020-06-25] MEDS ORDERED: HEPARIN for IV BOLUS 10,000 UNIT/10 ML VIAL. IART ONE (15:15)
[2020-06-25] MEDS ORDERED: NITROGLYCERIN 200 MCG/2 ML SYRINGE FOR CATH/VASC LAB. IART ONE (15:15)
[2020-06-25 15:18] LABS: HEMOGLOBIN 8.8 g/dL (12.0-15.5); RED BLOOD COUNT 2.95 x10^6/uL (3.50-5.40); RED CELL DISTRIBUTION WIDTH 13.1 % (11.5-14.5); WHITE BLOOD COUNT 8.8 x10^3/uL (4.0-11.0)
--- NOTE | 2020-06-25 15:24 | PDOC4 ---
BRIEF OPERATIVE NOTE Pre-Op Diagnosis Cardiac arrest Post-Op Diagnosis Same Procedure Performed [facility], Coronary angiography Surgeon bry NELSON 30 ml Anesthesiologist none Anesthesia Type: General Specimens Obtained none Findings no significant coronary disease. Normal left sided filling pressures. SHADIA CARRION MD Jun 25, 2020 15:24
--- NOTE | 2020-06-25 15:25 | NUR ---
Pt back from laborer cook house via laborer cook house RNs, tech. No intervention performed. R radial access site, TR band in place with 12cc of air. No signs of bleeding, all limbs warm, pulses present and palpable. Update called to , Brian, at [phone]. Pt currently resting, sedated, all VSS no signs of pain.
[2020-06-25 15:30] LABS: ALBUMIN/GLOBULIN RATIO 0.6 (1.0-1.7); CALCIUM 7.6 mg/dL (8.5-10.1); CREATININE 0.4 mg/dL (0.6-1.0); GFR 164.5; MAGNESIUM 1.8 mg/dL (1.8-2.4); POTASSIUM 3.4 mmol/L (3.5-5.1); TOTAL BILIRUBIN 0.4 mg/dL (0.2-1.0); TOTAL PROTEIN 5.5 g/dL (6.4-8.2)
--- NOTE | 2020-06-25 17:15 | CARD ---
MR#: [id number] Date of Study: 06/25/2020 Ordering Physician: SHADIA COLEMAN, Referring Physician: SHADIA COLEMAN, Tech: RT Dari (R) APPROVED REPORT Technologist: Raza Dorantes RT (R) Nurse: Jena Pillai R.N. Procedure(s) performed: Sedation: 43 Minutes Fluoro Time: 1.9 Minutes Contrast: 30 mL Omnipaque 300 Dose: 48.17 Gycm2 C, Coronary angiography HISTORY : The patient is a 59 year-old female with a history of . INDICATION The indication(s) include : arrhythmia, cardiac arrest. [facility] Clinical Frailty Scale [facility] Clinical Frailty Scale: Severely Frail Heart Failure Heart Failure: Yes If Yes, Newly Diagnosed: Yes If Yes, HF Type: Diastolic Systolic If Yes, NYHA Class: Class III CASE TECHNIQUE During this case, Fluoroscopy and low osmolar contrast were used for imaging. PROCEDURE NARRATIVE Clinical information: 59 y.o woman who presented with cardiac arrest and noted to have LV dysfunction. She was taken to cat h lab prior to PEG/Trach placement. Informed consent: Written informed consent was obtained from the patient after adequate discussion of the risks and ryann efits of the procedure with patient's next of kin. Procedure details: ACCESS: The right wrist was prepped and draped in usual sterile fashion. Under 1% lidocaine local anesthesia a 6 Uzbek Terumo sheath was placed in the right radial artery via the Seldinger technique. DIAGNOSTIC ANGIOGRAPHY: Right and left coronary arteries were engaged with a 6 Uzbek TIG catheter. Diagnostic angiography i n multiple views were obtained. Next, a 6 Uzbek pigtail catheter was placed in the left ventricle a nd a LVEDP was measured. A pullback was performed. All catheters were exchanged over J-tip guidewir e. FINDINGS: ======= Aorta: 110/80 LVEDP: 15 mmHg Left ventriculogram: Deferred due to known EF. Coronary angiography: LM: Large caliber vessel with normal angiographic appearance LAD: Large caliber vessel with normal angiographic appearance. LCx: Moderate caliber non-dominatn vessel with normal angiographic appearance. RCA: Large caliber vessel with normal angiographic appearance. CLOSURE: At case completion the right radial sheath was removed and a Terumo radial band was applied with 11 m L of air. Hemostasis was achieved. COMPLICATIONS: No acute complications noted Conclusion 1. Normal left sided filling pressures. 2. Normal angiographic appearance of the coronary arteries. Recommendations Aggressive Medical Therapy Signed by : Shadia Coleman, Electronically Approved : 06/25/2020 17:15:21
[2020-06-25] MEDS: AMINO AC 3%/ELECTROLYTE/GLYCER 1,000 ML IV SCH (17:37)
[2020-06-25] MEDS: POTASSIUM CHLORIDE 20MEQ 100 ML IV SCH ×2 (17:47→18:46)
[2020-06-25] MEDS: ATORVASTATIN CALCIUM 20 MG TABLET PO SCH (20:32)
[2020-06-25] MEDS: ENOXAPARIN 40 MG/0.4 ML SYRINGE. SQ SCH (21:00)
--- NOTE | 2020-06-25 21:00 | NUR ---
2100 dose of Lovenox held secondary to schedule surgery on 06/26/20.
[2020-06-26] VITALS (22 sets, daily range): BP systolic 98–146; BP diastolic 49–86
[2020-06-26] MEDS: PIPERACILLIN/TAZOBACTAM 3.375 GM in IV NORMAL SALINE 50ML 50 ML IV SCH ×5 (00:16→23:33)
[2020-06-26] MEDS: MIDAZOLAM 100mg/100ml NS BAG 100 ML IV PRN ×3 (00:21→20:22)
[2020-06-26] MEDS: AMINO AC 3%/ELECTROLYTE/GLYCER 1,000 ML IV SCH ×2 (05:46→20:19)
[2020-06-26] MEDS: LEVOTHYROXINE 75 MCG TABLET PO SCH (05:46)
[2020-06-26 05:52] LABS: BASO % 1 % (0-3); EOS # 0.3 x10^3/uL (0.0-0.7); EOS % 3 % (0-3); HEMATOCRIT 28.1 % (36.0-47.0); HEMOGLOBIN 9.5 g/dL (12.0-15.5); LYMPH # 1.9 x10^3/uL (1.0-4.8); LYMPH % 20 % (24-48); MEAN CORPUSCULAR HEMOGLOBIN 31 pg (25-35); MEAN CORPUSCULAR HGB CONC 34 g/dL (31-37); MEAN CORPUSCULAR VOLUME 90 fL (79-100); MONO # 0.5 x10^3/uL (0.0-1.1); MONO % 6 % (0-9); NEUT # 6.8 x10^3/uL (1.8-7.7); NEUT % 72 % (31-73); PLATELET COUNT 286 x10^3/uL (140-400); RED BLOOD COUNT 3.11 x10^6/uL (3.50-5.40); RED CELL DISTRIBUTION WIDTH 12.8 % (11.5-14.5); WHITE BLOOD COUNT 9.5 x10^3/uL (4.0-11.0)
[2020-06-26 06:02] LABS: CALCIUM 8.4 mg/dL (8.5-10.1); CREATININE 0.5 mg/dL (0.6-1.0); GFR 127.2
--- NOTE | 2020-06-26 08:07 | PDOC ---
Infectious Disease Note Subjective: Subjective pt is intubated on vent sedated Yesterday patient made some movements off sedation, at times was agitated, no purposeful movement Awaiting trach placement later today Vital Signs: Vital Signs Vital Signs Date Time Temp Pulse Resp B/P (MAP) Pulse Ox O2 Delivery O2 Flow Rate FiO2 06/26/20 07:00 61 18 98/52 (67) 100 Ventilator 06/26/20 04:00 99.2 99.2 06/26/20 04:00 15.0 Physical Exam: PHYSICAL EXAM GENERAL: Sedated, orally intubated female, not in distress. HEENT: Both pupils are round and reacting. No conjunctival lesion. Mouth cannot be visualized, orally intubated. NECK: Supple. No JVP, no lymphadenopathy. LUNGS: Decreased breath sounds bilaterally. HEART: S1, S2, regular. No gallop or murmur. ABDOMEN: Soft, nontender. No organomegaly. EXTREMITIES: No edema or cyanosis. toe amputation of the Rt foot,healed scars SKIN: Unremarkable. NEUROLOGICAL: The patient is sedated, orally intubated. Medications: Inpatient Meds: Current Medications Medications (Trade) Dose Ordered Sig/Rosalio Start Time Stop Time Status Last Admin Dose Admin Albuterol/ Ipratropium (Duoneb) 3 ml RTQID 06/18/20 20:00 06/25/20 20:46 3 ML Amino Acids/ Glycerin/ Electrolytes 1,000 ml @ 80 mls/hr [id number] 06/25/20 17:30 06/26/20 05:46 80 MLS/HR Amiodarone HCl (Cordarone) 400 mg DAILY 06/20/20 09:00 06/25/20 08:24 400 MG Amiodarone HCl 150 mg/Dextrose 103 ml @ 618 mls/hr 1X ONCE 06/17/20 07:00 06/17/20 07:09 DC 06/17/20 07:00 618 MLS/HR Amiodarone HCl 450 mg/Dextrose 259 ml @ 33 mls/hr 1X ONCE 06/17/20 07:00 06/17/20 14:50 DC Aspirin (Aspirin Chewable) 81 mg 1X ONCE 06/19/20 15:30 06/19/20 15:37 DC 06/19/20 15:57 81 MG Atorvastatin Calcium (Lipitor) 20 mg QHS 06/19/20 21:00 06/25/20 20:32 20 MG Atropine Sulfate (ATROPINE 0.5mg SYRINGE) 0.5 mg PRN Q5MIN PRN 06/21/20 10:45 Buspirone HCl (Buspar) 30 mg Q8H 06/17/20 12:00 06/17/20 12:39 DC 06/17/20 12:31 30 MG Carvedilol (Coreg) 3.125 mg BIDWMEALS 06/19/20 17:00 06/24/20 09:10 3.125 MG Dexmedetomidine HCl 400 mcg/ Sodium Chloride 100 ml @ 0 mls/hr CONT PRN 06/21/20 10:45 06/25/20 04:43 15.7 MLS/HR Enoxaparin Sodium (Lovenox 40mg Syringe) 40 mg Q24H 06/18/20 21:00 06/24/20 20:46 40 MG Famotidine (Pepcid Vial) 20 mg BID 06/18/20 21:00 06/25/20 20:32 20 MG Fentanyl Citrate (Fentanyl 2ml Vial) 50 mcg PRN Q2HR PRN 06/23/20 16:45 06/24/20 20:54 50 MCG Furosemide (Lasix) 40 mg 1X ONCE 06/20/20 13:30 06/20/20 13:31 DC 06/20/20 14:38 40 MG Glycerin/ Hypromellose/ Polyethylene (Artificial Tears) 1 drop PRN Q15MIN PRN 06/17/20 12:00 06/17/20 12:39 DC Heparin Sodium (Porcine) (Heparin Sodium) 2,500 unit 1X ONCE 06/25/20 15:15 06/25/20 15:16 DC 06/25/20 15:09 2,500 UNIT Heparin Sodium/ Sodium Chloride (HEPARIN for ARTERIAL LINE FLUSH) 1,000 unit 1X ONCE 06/25/20 15:15 06/25/20 15:16 DC 06/25/20 15:09 1,000 UNIT Info (CONTRAST GIVEN -- Rx MONITORING) 1 each PRN DAILY PRN 06/17/20 08:15 06/19/20 08:14 DC Iohexol (Omnipaque 300 Mg/ml) 30 ml 1X ONCE 06/25/20 15:15 06/25/20 15:16 DC 06/25/20 15:09 30 ML Iohexol (Omnipaque 350 Mg/ml) 100 ml 1X ONCE 06/17/20 08:15 06/17/20 08:16 DC 06/17/20 08:17 100 ML Levothyroxine Sodium (Synthroid) 75 mcg DAILY06 06/18/20 21:00 06/26/20 05:46 75 MCG Lidocaine HCl (Lidocaine 1% 20ml Vial) 20 ml 1X ONCE 06/17/20 09:15 06/17/20 09:20 DC 06/17/20 09:15 20 ML Lidocaine HCl (Xylocaine-Mpf 1% 2ml Vial) 2 ml 1X ONCE 06/25/20 15:15 06/25/20 15:16 DC 06/25/20 15:09 2 ML Lidocaine HCl (Xylocaine-Mpf 1% 5ml Vial) 5 ml STK-MED ONCE 06/17/20 09:26 06/17/20 09:26 DC Magnesium Sulfate/ Dextrose 100 ml @ 100 mls/hr 1X ONCE 06/17/20 12:00 06/17/20 12:39 DC 06/17/20 12:22 100 MLS/HR Midazolam HCl 100 ml @ 0 mls/hr CONT PRN 06/25/20 11:45 06/26/20 00:21 10 MLS/HR Midazolam HCl (Versed) 5 mg Q1HR PRN 06/17/20 12:45 06/18/20 19:57 5 MG Nitroglycerin (Nitroglycerin) 200 mcg 1X ONCE 06/25/20 15:15 06/25/20 15:16 DC 06/25/20 15:09 200 MCG Pantoprazole Sodium (PROTONIX VIAL for IV PUSH) 40 mg DAILY 06/18/20 09:00 06/17/20 12:39 DC Piperacillin Sod/ Tazobactam Sod (Zosyn Per Pharmacy) 1 each PRN DAILY PRN 06/17/20 08:45 Piperacillin Sod/ Tazobactam Sod 3.375 gm/Sodium Chloride 50 ml @ 100 mls/hr Q6H 06/17/20 16:00 06/26/20 05:46 100 MLS/HR Piperacillin Sod/ Tazobactam Sod 4.5 gm/Sodium Chloride 100 ml @ 200 mls/hr 1X ONCE 06/17/20 12:15 06/17/20 12:44 Cancel Potassium Bicarbonate (Potassium Effervescent Tablet) 40 meq 1X ONCE 06/18/20 09:45 06/18/20 09:48 DC 06/18/20 10:00 40 MEQ Potassium Chloride/Water 100 ml @ 100 mls/hr Q1H 06/25/20 18:00 06/25/20 19:59 DC 06/25/20 18:46 100 MLS/HR Propofol 100 ml @ 0 mls/hr CONT PRN 06/17/20 12:00 06/17/20 12:39 DC Propofol (Diprivan) 200 mg 1X ONCE 06/17/20 09:00 06/17/20 09:01 DC 06/17/20 09:00 200 MG Sodium Chloride 500 ml @ 500 mls/hr 1X PRN PRN 06/21/20 10:45 Vecuronium [place] (Norcuron Bolus) 10 mg PRN Q1HR PRN 06/17/20 12:00 06/17/20 12:39 DC Verapamil HCl (Verapamil) 2.5 mg 1X ONCE 06/25/20 15:15 06/25/20 15:16 DC 06/25/20 15:09 2.5 MG Labs: Lab Laboratory Tests Test 06/25/20 09:05 06/25/20 15:03 06/25/20 17:30 06/26/20 05:30 O2 Saturation 97 % (92-99) Arterial Blood pH 7.36 (7.35-7.45) Arterial Blood pCO2 at Patient Temp 49 mmHg (35-46) Arterial Blood pO2 at Patient Temp 104 mmHg (75-108) Arterial Blood HCO3 27 mmol/L (21-28) Arterial Blood Base Excess 1 mmol/L (-3-3) FiO2 100 White Blood Count 8.8 x10^3/uL (4.0-11.0) 9.5 x10^3/uL (4.0-11.0) Red Blood Count 2.95 x10^6/uL (3.50-5.40) 3.11 x10^6/uL (3.50-5.40) Hemoglobin 8.8 g/dL (12.0-15.5) 9.5 g/dL (12.0-15.5) Hematocrit 27.0 % (36.0-47.0) 28.1 % (36.0-47.0) Mean Corpuscular Volume 91 fL (79-100) 90 fL (79-100) Mean Corpuscular Hemoglobin 30 pg (25-35) 31 pg (25-35) Mean Corpuscular Hemoglobin Concent 33 g/dL (31-37) 34 g/dL (31-37) Red Cell Distribution Width 13.1 % (11.5-14.5) 12.8 % (11.5-14.5) Platelet Count 260 x10^3/uL (140-400) 286 x10^3/uL (140-400) Sodium Level 143 mmol/L (136-145) 136 mmol/L (136-145) Potassium Level 3.4 mmol/L (3.5-5.1) 4.0 mmol/L (3.5-5.1) Chloride Level 106 mmol/L (98-107) 102 mmol/L (98-107) Carbon Dioxide Level 25 mmol/L (21-32) 25 mmol/L (21-32) Anion Gap 12 (6-14) 9 (6-14) Blood Urea Nitrogen 16 mg/dL (7-20) 15 mg/dL (7-20) Creatinine 0.4 mg/dL (0.6-1.0) 0.5 mg/dL (0.6-1.0) Estimated GFR (Cockcroft-Gault) 164.5 127.2 BUN/Creatinine Ratio 40 (6-20) Glucose Level 87 mg/dL (70-99) 91 mg/dL (70-99) Calcium Level 7.6 mg/dL (8.5-10.1) 8.4 mg/dL (8.5-10.1) Magnesium Level 1.8 mg/dL (1.8-2.4) Total Bilirubin 0.4 mg/dL (0.2-1.0) Aspartate Amino Transf (AST/SGOT) 37 U/L (15-37) Alanine Aminotransferase (ALT/SGPT) 60 U/L (14-59) Alkaline Phosphatase 117 U/L (46-116) Total Protein 5.5 g/dL (6.4-8.2) Albumin 2.0 g/dL (3.4-5.0) Albumin/Globulin Ratio 0.6 (1.0-1.7) Glucose (Fingerstick) 79 mg/dL (70-99) Neutrophils (%) (Auto) 72 % (31-73) Lymphocytes (%) (Auto) 20 % (24-48) Monocytes (%) (Auto) 6 % (0-9) Eosinophils (%) (Auto) 3 % (0-3) Basophils (%) (Auto) 1 % (0-3) Neutrophils # (Auto) 6.8 x10^3/uL (1.8-7.7) Lymphocytes # (Auto) 1.9 x10^3/uL (1.0-4.8) Monocytes # (Auto) 0.5 x10^3/uL (0.0-1.1) Eosinophils # (Auto) 0.3 x10^3/uL (0.0-0.7) Basophils # (Auto) 0.0 x10^3/uL (0.0-0.2) Objective: Assessment: 1. Cardiopulmonary arrest at home. s/p cardiac cath , normal coronaries 2. Leukocytosis, likely reactive. resolved 3. Lactic acidosis from #1. 4. Respiratory failure. suspected aspiration 5. Anoxic Encephalopathy 6. Hypertension. 7. Pneumothorax.s/p CTS 8. Rib fracture and sternal fracture. 9. Anemia Plan: Plan of Care Continue Zosyn covid neg cultures neg cont supportive care Awaiting trach later today trach Prognosis poor Cussed with at bedside D/W SAÚL MAYES MD Jun 26, 2020 08:07
[2020-06-26 08:24] LABS: BASE EXCESS ABG -1 mmol/L (-3-3); HCO3 ABG 22 mmol/L (21-28); PCO2 ABG 30 mmHg (35-46); PO2 ABG 81 mmHg (75-108); SAT O2 ABG 95 % (92-99)
[2020-06-26] MEDS: IPRATRPIUM/ALBUTEROL 0.5/2.5MG 3 ML NEBU. NEB SCH ×4 (08:27→20:11)
[2020-06-26 08:30] LABS: FIO2 ABG 40%+5
--- NOTE | 2020-06-26 09:03 | PDOC ---
PROGRESS NOTES Date of Service DATE: 06/26/20 TIME: 09:02 Assessment Problems Medical Problems: (1) Cardiac arrest Status: Acute (2) Fracture of ribs, multiple Status: Acute (3) Hyperglycemia Status: Acute (4) Pneumonia Status: Acute (5) Pneumothorax, right Status: Acute (6) Sternal fracture Status: Acute (7) VF (ventricular fibrillation) Status: Acute Anoxic encephalopathy, ventricular fibrillation and asystole, improving, but not making much more progress Negative for Covid Plan Will not be able to extubate, will need trach and PEG Supportive care Holding on additional neurological tests Family wants to try 1 month at [facility] Discussed with family Subjective None Objective Vital Signs Date Time Temp Pulse Resp B/P (MAP) Pulse Ox O2 Delivery O2 Flow Rate FiO2 06/26/20 08:21 97 Ventilator 06/26/20 08:00 99.6 62 18 103/49 (67) 99.6 06/26/20 04:00 15.0 Intake and Output 06/26/20 07:00 Intake Total 3068.4 ml Output Total 1060 ml Balance 2008.4 ml IV Total 2193.4 ml Tube Feeding 875 ml Output Urine Total 1050 ml Chest Tube Drainage Total 10 ml PHYSICAL EXAM On ventilator PERRL. EOMI. CN: no focal findings. Muscle tone: normal. Muscle strength: Moving arms and legs DTR: 1+ Plantar reflex: Flexor Gait: not examined. Sensory exam: Not cooperative Cerebellar: Not cooperative Review of Relevant I have reviewed the following items afua (where applicable) has been applied. Labs Laboratory Tests Test 06/24/20 11:47 06/24/20 17:47 06/25/20 09:05 06/25/20 15:03 Glucose (Fingerstick) 127 mg/dL (70-99) 132 mg/dL (70-99) O2 Saturation 97 % (92-99) Arterial Blood pH 7.36 (7.35-7.45) Arterial Blood pCO2 at Patient Temp 49 mmHg (35-46) Arterial Blood pO2 at Patient Temp 104 mmHg (75-108) Arterial Blood HCO3 27 mmol/L (21-28) Arterial Blood Base Excess 1 mmol/L (-3-3) FiO2 100 White Blood Count 8.8 x10^3/uL (4.0-11.0) Red Blood Count 2.95 x10^6/uL (3.50-5.40) Hemoglobin 8.8 g/dL (12.0-15.5) Hematocrit 27.0 % (36.0-47.0) Mean Corpuscular Volume 91 fL (79-100) Mean Corpuscular Hemoglobin 30 pg (25-35) Mean Corpuscular Hemoglobin Concent 33 g/dL (31-37) Red Cell Distribution Width 13.1 % (11.5-14.5) Platelet Count 260 x10^3/uL (140-400) Sodium Level 143 mmol/L (136-145) Potassium Level 3.4 mmol/L (3.5-5.1) Chloride Level 106 mmol/L (98-107) Carbon Dioxide Level 25 mmol/L (21-32) Anion Gap 12 (6-14) Blood Urea Nitrogen 16 mg/dL (7-20) Creatinine 0.4 mg/dL (0.6-1.0) Estimated GFR (Cockcroft-Gault) 164.5 BUN/Creatinine Ratio 40 (6-20) Glucose Level 87 mg/dL (70-99) Calcium Level 7.6 mg/dL (8.5-10.1) Magnesium Level 1.8 mg/dL (1.8-2.4) Total Bilirubin 0.4 mg/dL (0.2-1.0) Aspartate Amino Transf (AST/SGOT) 37 U/L (15-37) Alanine Aminotransferase (ALT/SGPT) 60 U/L (14-59) Alkaline Phosphatase 117 U/L (46-116) Total Protein 5.5 g/dL (6.4-8.2) Albumin 2.0 g/dL (3.4-5.0) Albumin/Globulin Ratio 0.6 (1.0-1.7) Test 06/25/20 17:30 06/26/20 05:30 06/26/20 08:15 Glucose (Fingerstick) 79 mg/dL (70-99) White Blood Count 9.5 x10^3/uL (4.0-11.0) Red Blood Count 3.11 x10^6/uL (3.50-5.40) Hemoglobin 9.5 g/dL (12.0-15.5) Hematocrit 28.1 % (36.0-47.0) Mean Corpuscular Volume 90 fL (79-100) Mean Corpuscular Hemoglobin 31 pg (25-35) Mean Corpuscular Hemoglobin Concent 34 g/dL (31-37) Red Cell Distribution Width 12.8 % (11.5-14.5) Platelet Count 286 x10^3/uL (140-400) Neutrophils (%) (Auto) 72 % (31-73) Lymphocytes (%) (Auto) 20 % (24-48) Monocytes (%) (Auto) 6 % (0-9) Eosinophils (%) (Auto) 3 % (0-3) Basophils (%) (Auto) 1 % (0-3) Neutrophils # (Auto) 6.8 x10^3/uL (1.8-7.7) Lymphocytes # (Auto) 1.9 x10^3/uL (1.0-4.8) Monocytes # (Auto) 0.5 x10^3/uL (0.0-1.1) Eosinophils # (Auto) 0.3 x10^3/uL (0.0-0.7) Basophils # (Auto) 0.0 x10^3/uL (0.0-0.2) Sodium Level 136 mmol/L (136-145) Potassium Level 4.0 mmol/L (3.5-5.1) Chloride Level 102 mmol/L (98-107) Carbon Dioxide Level 25 mmol/L (21-32) Anion Gap 9 (6-14) Blood Urea Nitrogen 15 mg/dL (7-20) Creatinine 0.5 mg/dL (0.6-1.0) Estimated GFR (Cockcroft-Gault) 127.2 Glucose Level 91 mg/dL (70-99) Calcium Level 8.4 mg/dL (8.5-10.1) O2 Saturation 95 % (92-99) Arterial Blood pH 7.48 (7.35-7.45) Arterial Blood pCO2 at Patient Temp 30 mmHg (35-46) Arterial Blood pO2 at Patient Temp 81 mmHg (75-108) Arterial Blood HCO3 22 mmol/L (21-28) Arterial Blood Base Excess -1 mmol/L (-3-3) FiO2 40%+5 Laboratory Tests Test 06/25/20 09:05 06/25/20 15:03 06/25/20 17:30 06/26/20 05:30 O2 Saturation 97 % (92-99) Arterial Blood pH 7.36 (7.35-7.45) Arterial Blood pCO2 at Patient Temp 49 mmHg (35-46) Arterial Blood pO2 at Patient Temp 104 mmHg (75-108) Arterial Blood HCO3 27 mmol/L (21-28) Arterial Blood Base Excess 1 mmol/L (-3-3) FiO2 100 White Blood Count 8.8 x10^3/uL (4.0-11.0) 9.5 x10^3/uL (4.0-11.0) Red Blood Count 2.95 x10^6/uL (3.50-5.40) 3.11 x10^6/uL (3.50-5.40) Hemoglobin 8.8 g/dL (12.0-15.5) 9.5 g/dL (12.0-15.5) Hematocrit 27.0 % (36.0-47.0) 28.1 % (36.0-47.0) Mean Corpuscular Volume 91 fL (79-100) 90 fL (79-100) Mean Corpuscular Hemoglobin 30 pg (25-35) 31 pg (25-35) Mean Corpuscular Hemoglobin Concent 33 g/dL (31-37) 34 g/dL (31-37) Red Cell Distribution Width 13.1 % (11.5-14.5) 12.8 % (11.5-14.5) Platelet Count 260 x10^3/uL (140-400) 286 x10^3/uL (140-400) Sodium Level 143 mmol/L (136-145) 136 mmol/L (136-145) Potassium Level 3.4 mmol/L (3.5-5.1) 4.0 mmol/L (3.5-5.1) Chloride Level 106 mmol/L (98-107) 102 mmol/L (98-107) Carbon Dioxide Level 25 mmol/L (21-32) 25 mmol/L (21-32) Anion Gap 12 (6-14) 9 (6-14) Blood Urea Nitrogen 16 mg/dL (7-20) 15 mg/dL (7-20) Creatinine 0.4 mg/dL (0.6-1.0) 0.5 mg/dL (0.6-1.0) Estimated GFR (Cockcroft-Gault) 164.5 127.2 BUN/Creatinine Ratio 40 (6-20) Glucose Level 87 mg/dL (70-99) 91 mg/dL (70-99) Calcium Level 7.6 mg/dL (8.5-10.1) 8.4 mg/dL (8.5-10.1) Magnesium Level 1.8 mg/dL (1.8-2.4) Total Bilirubin 0.4 mg/dL (0.2-1.0) Aspartate Amino Transf (AST/SGOT) 37 U/L (15-37) Alanine Aminotransferase (ALT/SGPT) 60 U/L (14-59) Alkaline Phosphatase 117 U/L (46-116) Total Protein 5.5 g/dL (6.4-8.2) Albumin 2.0 g/dL (3.4-5.0) Albumin/Globulin Ratio 0.6 (1.0-1.7) Glucose (Fingerstick) 79 mg/dL (70-99) Neutrophils (%) (Auto) 72 % (31-73) Lymphocytes (%) (Auto) 20 % (24-48) Monocytes (%) (Auto) 6 % (0-9) Eosinophils (%) (Auto) 3 % (0-3) Basophils (%) (Auto) 1 % (0-3) Neutrophils # (Auto) 6.8 x10^3/uL (1.8-7.7) Lymphocytes # (Auto) 1.9 x10^3/uL (1.0-4.8) Monocytes # (Auto) 0.5 x10^3/uL (0.0-1.1) Eosinophils # (Auto) 0.3 x10^3/uL (0.0-0.7) Basophils # (Auto) 0.0 x10^3/uL (0.0-0.2) Test 06/26/20 08:15 O2 Saturation 95 % (92-99) Arterial Blood pH 7.48 (7.35-7.45) Arterial Blood pCO2 at Patient Temp 30 mmHg (35-46) Arterial Blood pO2 at Patient Temp 81 mmHg (75-108) Arterial Blood HCO3 22 mmol/L (21-28) Arterial Blood Base Excess -1 mmol/L (-3-3) FiO2 40%+5 Microbiology 1/3/21 Blood Culture - Final, Complete NO GROWTH AFTER 5 DAYS Medications Current Medications Amiodarone HCl 150 mg/Dextrose 103 ml @ 618 mls/hr 1X ONCE IV Last administered on 06/17/20at 07:00; Start 06/17/20 at 07:00; Stop 06/17/20 at 07:09; Status DC Amiodarone HCl 450 mg/Dextrose 259 ml @ 33 mls/hr 1X ONCE IV ; Start 06/17/20 at 07:00; Stop 06/17/20 at 14:50; Status DC Sodium Chloride 1,000 ml @ 1,000 mls/hr 1X ONCE IV Last administered on 06/17/20at 08:11; Start 06/17/20 at 07:15; Stop 06/17/20 at 08:14; Status DC Midazolam HCl 100 ml @ 0 mls/hr 1X ONCE IV ; Start 06/17/20 at 07:15; Stop 06/17/20 at 07:16; Status DC Midazolam HCl (Versed) 5 mg STK-MED ONCE .ROUTE ; Start 06/17/20 at 07:17; Stop 06/17/20 at 07:17; Status DC Iohexol (Omnipaque 300 Mg/ml) 75 ml 1X ONCE IV Last administered on 06/17/20at 08:17; Start 06/17/20 at 08:15; Stop 06/17/20 at 08:16; Status DC Iohexol (Omnipaque 350 Mg/ml) 100 ml 1X ONCE IV Last administered on 06/17/20at 08:17; Start 06/17/20 at 08:15; Stop 06/17/20 at 08:16; Status DC Info (CONTRAST GIVEN -- Rx MONITORING) 1 each PRN DAILY PRN MC SEE COMMENTS; Start 06/17/20 at 08:15; Stop 06/19/20 at 08:14; Status DC Sodium Chloride 1,000 ml @ 1,000 mls/hr 1X ONCE IV Last administered on 06/17/20at 08:25; Start 06/17/20 at 08:15; Stop 06/17/20 at 09:14; Status DC Potassium Chloride/Water 100 ml @ 50 mls/hr 1X ONCE IV Last administered on 06/17/20at 10:16; Start 06/17/20 at 09:00; Stop 06/17/20 at 10:59; Status DC Piperacillin Sod/ Tazobactam Sod (Zosyn Per Pharmacy) 1 each PRN DAILY PRN MC SEE COMMENTS; Start 06/17/20 at 08:45 Piperacillin Sod/ Tazobactam Sod 4.5 gm/Sodium Chloride 100 ml @ 200 mls/hr 1X ONCE IV Last administered on 06/17/20at 10:15; Start 06/17/20 at 08:45; Stop 06/17/20 at 09:14; Status DC Sodium Chloride 1,000 ml @ 125 mls/hr Q8H IV Last administered on 06/17/20at 23: 39; Start 06/17/20 at 09:00; Stop 06/18/20 at 08:59; Status DC Propofol (Diprivan) 200 mg 1X ONCE IV Last administered on 06/17/20at 09:00; Start 06/17/20 at 09:00; Stop 06/17/20 at 09:01; Status DC Propofol 100 ml @ As Directed STK-MED ONCE IV ; Start 06/17/20 at 09:05; Stop 06/17/20 at 09:05; Status DC Lidocaine HCl (Lidocaine 1% 20ml Vial) 20 ml 1X ONCE INJ Last administered on 06/17/20at 09:15; Start 06/17/20 at 09:15; Stop 06/17/20 at 09:20; Status DC Lidocaine HCl (Xylocaine-Mpf 1% 5ml Vial) 5 ml STK-MED ONCE .ROUTE ; Start 06/17/20 at 09:26; Stop 06/17/20 at 09:26; Status DC Sodium Chloride 1,000 ml @ 1,000 mls/hr 1X ONCE IV Last administered on 06/17/20at 10:15; Start 06/17/20 at 10:15; Stop 06/17/20 at 11:14; Status DC Propofol 100 ml @ 3.819 mls/ hr CONT PRN IV PER PROTOCOL Last administered on 06/25/20at 06:12; Start 06/17/20 at 10:45 Fentanyl Citrate (Fentanyl 2ml Vial) 100 mcg 1X ONCE IV ; Start 06/17/20 at 12:00; Stop 06/17/20 at 12:39; Status DC Midazolam HCl (Versed) 2 mg 1X ONCE IV ; Start 06/17/20 at 12:00; Stop 06/17/20 at 12:39; Status DC Magnesium Sulfate/ Dextrose 100 ml @ 100 mls/hr 1X ONCE IV Last administered on 06/17/20at 12:22; Start 06/17/20 at 12:00; Stop 06/17/20 at 12:39; Status DC Buspirone HCl (Buspar) 30 mg Q8H NG Last administered on 06/17/20at 12:31; Start 06/17/20 at 12:00; Stop 06/17/20 at 12:39; Status DC Glycerin/ Hypromellose/ Polyethylene (Artificial Tears) 1 drop Q6HRS OU ; Start 06/17/20 at 12:00; Stop 06/17/20 at 12:39; Status DC Glycerin/ Hypromellose/ Polyethylene (Artificial Tears) 1 drop PRN Q15MIN PRN OU DRY EYE; Start 06/17/20 at 12:00; Stop 06/17/20 at 12:39; Status DC Heparin Sodium (Porcine) (Heparin Sodium) 5,000 unit BID SQ ; Start 06/17/20 at 21:00; Stop 06/17/20 at 12:39; Status DC Pantoprazole Sodium (PROTONIX VIAL for IV PUSH) 40 mg DAILY IVP ; Start 06/18/20 at 09:00; Stop 06/17/20 at 12:39; Status DC Fentanyl Citrate 30 ml @ 0 mls/hr CONT PRN IV PER PROTOCOL.; Start 06/17/20 at 12:00; Stop 06/17/20 at 12:39; Status DC Propofol 100 ml @ 0 mls/hr CONT PRN IV PER PROTOCOL.; Start 06/17/20 at 12:00; Stop 06/17/20 at 12:39; Status DC Midazolam HCl 100 ml @ 0 mls/hr CONT PRN IV PER PROTOCOL; Start 06/17/20 at 12:00; Stop 06/17/20 at 12:39; Status DC Vecuronium [place] (Norcuron Bolus) 10 mg PRN Q1HR PRN IV SHIVERING; Start 06/17/20 at 12:00; Stop 06/17/20 at 12:39; Status DC Piperacillin Sod/ Tazobactam Sod 4.5 gm/Sodium Chloride 100 ml @ 200 mls/hr 1X ONCE IV ; Start 06/17/20 at 12:15; Stop 06/17/20 at 12:44; Status Cancel Midazolam HCl (Versed) 5 mg Q1HR PRN IV SEDATION Last administered on 06/18/20 19:57; Start 06/17/20 at 12:45 Fentanyl Citrate (Fentanyl 2ml Vial) 100 mcg Q1HR IVP Last administered on 06/17/20at 18:55; Start 06/17/20 at 13:00; Stop 06/17/20 at 23:41; Status DC Piperacillin Sod/ Tazobactam Sod 3.375 gm/Sodium Chloride 50 ml @ 100 mls/hr Q6H IV Last administered on 06/26/20 05:46; Start 06/17/20 at 16:00 Potassium Bicarbonate (Potassium Effervescent Tablet) 40 meq 1X ONCE NG Last administered on 06/18/20at 10:00; Start 06/18/20 at 09:45; Stop 06/18/20 at 09:48; Status DC Albuterol/ Ipratropium (Duoneb) 3 ml RTQID NEB Last administered on 06/26/20 08:27; Start 06/18/20 at 20:00 Famotidine (Pepcid Vial) 20 mg BID IVP Last administered on 06/25/20 20:32; Start 06/18/20 at 21:00 Enoxaparin Sodium (Lovenox 40mg Syringe) 40 mg Q24H SQ Last administered on 06/24/20at 20:46; Start 06/18/20 at 21:00 Levothyroxine Sodium (Synthroid) 75 mcg DAILY06 PO Last administered on 06/26/20 05:46; Start 06/18/20 at 21:00 Fentanyl Citrate 30 ml @ 0 mls/hr CONT PRN IV SEE PROTOCOL Last administered on 06/26/20 03:30; Start 06/18/20 at 20:15 Carvedilol (Coreg) 3.125 mg BIDWMEALS PO Last administered on 06/24/20 09:10; Start 06/19/20 at 17:00 Atorvastatin Calcium (Lipitor) 20 mg QHS PO Last administered on 06/25/20 20:32; Start 06/19/20 at 21:00 Aspirin (Aspirin Chewable) 81 mg DAILYWBKFT PO Last administered on 06/25/20at 08:24; Start 06/20/20 at 08:00 Aspirin (Aspirin Chewable) 81 mg 1X ONCE PO Last administered on 06/19/20at 15:57; Start 06/19/20 at 15:30; Stop 06/19/20 at 15:37; Status DC Potassium Chloride/Water 100 ml @ 100 mls/hr 1X ONCE IV Last administered on 06/19/20at 15:57; Start 06/19/20 at 15:30; Stop 06/19/20 at 16:29; Status DC Amiodarone HCl (Cordarone) 400 mg DAILY PO Last administered on 06/25/20at 08:24; Start 06/20/20 at 09:00 Furosemide (Lasix) 40 mg 1X ONCE IVP Last administered on 06/20/20at 14:38; Start 06/20/20 at 13:30; Stop 06/20/20 at 13:31; Status DC Potassium Chloride/Water 100 ml @ 100 mls/hr 1X ONCE IV Last administered on 06/20/20at 14:39; Start 06/20/20 at 13:30; Stop 06/20/20 at 14:29; Status DC Dexmedetomidine HCl 400 mcg/ Sodium Chloride 100 ml @ 0 mls/hr CONT PRN IV PER PROTOCOL Last administered on 06/25/20at 04:43; Start 06/21/20 at 10:45 Sodium Chloride 500 ml @ 500 mls/hr 1X PRN PRN IV SEE COMMENTS; Start 06/21/20 at 10:45 Atropine Sulfate (ATROPINE 0.5mg SYRINGE) 0.5 mg PRN Q5MIN PRN IV SEE COMMENTS; Start 06/21/20 at 10:45 Fentanyl Citrate (Fentanyl 2ml Vial) 50 mcg PRN Q2HR PRN IVP PAIN Last administered on 06/24/20at 20:54; Start 06/23/20 at 16:45 Midazolam HCl 100 ml @ 0 mls/hr CONT PRN IV SEE PROTOCOL Last administered on 06/26/20at 00:21; Start 06/25/20 at 11:45 Lidocaine HCl (Xylocaine-Mpf 1% 2ml Vial) 2 ml STK-MED ONCE .ROUTE ; Start 06/25/20 at 14:21; Stop 06/25/20 at 14:21; Status DC Iohexol (Omnipaque 300 Mg/ml) 100 ml STK-MED ONCE .ROUTE ; Start 06/25/20 at 14:21; Stop 06/25/20 at 14:21; Status DC Heparin Sodium/ Sodium Chloride 1,000 ml @ As Directed STK-MED ONCE .ROUTE ; Start 06/25/20 at 14:21; Stop 06/25/20 at 14:21; Status DC Heparin Sodium (Porcine) (Heparin Sodium) 10,000 unit STK-MED ONCE .ROUTE ; Start 06/25/20 at 14:31; Stop 06/25/20 at 14:31; Status DC Verapamil HCl (Verapamil) 5 mg STK-MED ONCE .ROUTE ; Start 06/25/20 at 14:31; Stop 06/25/20 at 14:31; Status DC Nitroglycerin (Nitroglycerin) 200 mcg STK-MED ONCE .ROUTE ; Start 06/25/20 at 14:31; Stop 06/25/20 at 14:31; Status DC Nitroglycerin (Nitroglycerin) 200 mcg 1X ONCE IART Last administered on 06/25/20at 15:09; Start 06/25/20 at 15:15; Stop 06/25/20 at 15:16; Status DC Verapamil HCl (Verapamil) 2.5 mg 1X ONCE IART Last administered on 06/25/20at 15:09; Start 06/25/20 at 15:15; Stop 06/25/20 at 15:16; Status DC Heparin Sodium (Porcine) (Heparin Sodium) 2,500 unit 1X ONCE IART Last administered on 06/25/20at 15:09; Start 06/25/20 at 15:15; Stop 06/25/20 at 15:16; Status DC Heparin Sodium/ Sodium Chloride (HEPARIN for ARTERIAL LINE FLUSH) 1,000 unit 1X ONCE IART Last administered on 06/25/20at 15:09; Start 06/25/20 at 15:15; Stop 06/25/20 at 15:16; Status DC Iohexol (Omnipaque 300 Mg/ml) 30 ml 1X ONCE IART Last administered on 06/25/20at 15:09; Start 06/25/20 at 15:15; Stop 06/25/20 at 15:16; Status DC Lidocaine HCl (Xylocaine-Mpf 1% 2ml Vial) 2 ml 1X ONCE INJ Last administered on 06/25/20at 15:09; Start 06/25/20 at 15:15; Stop 06/25/20 at 15:16; Status DC Amino Acids/ Glycerin/ Electrolytes 1,000 ml @ 80 mls/hr [id number] IV Last administered on 06/26/20at 05:46; Start 06/25/20 at 17:30 Potassium Chloride/Water 100 ml @ 100 mls/hr Q1H IV Last administered on 06/25/20at 18:46; Start 06/25/20 at 18:00; Stop 06/25/20 at 19:59; Status DC Active Scripts Active Reported Acetaminophen-Diphenhyd 500-25 (Acetaminophen/Diphenhydramine) 1 Each Tablet 1 Each PO HS PRN Naproxen 500 Mg Tablet 1 Tab PO BID PRN 30 Days Tramadol Hcl 50 Mg Tablet 50 Mg PO Q4HRS Levothyroxine Sodium 75 Mcg Tablet 1 Tab PO DAILY Adderall 20 Mg Tablet (Dextroamphetamine/Amphetamine) 20 Mg Tablet 1 Tab PO DAILY MDD 1 Tablet(s) 5 Days Prozac (Fluoxetine Hcl) 20 Mg Capsule 1 Cap PO DAILYWBKFT Vitals/I & O Vital Sign - Last 24 Hours 06/25/20 06/25/20 06/25/20 06/25/20 10:00 11:00 11:55 12:00 Pulse 55 60 Resp 22 22 B/P (MAP) 100/62 (75) 104/64 (77) Pulse Ox 96 98 98 97 O2 Delivery Ventilator Ventilator Ventilator O2 Flow Rate 15.0 06/25/20 06/25/20 06/25/20 06/25/20 12:00 12:00 12:25 13:00 Temp 97.8 97.8 Pulse 65 60 Resp 22 22 B/P (MAP) 113/69 (84) 99/63 (75) Pulse Ox 98 95 95 O2 Delivery Ventilator Mechanical Ventilator Ventilator O2 Flow Rate 15.0 06/25/20 06/25/20 06/25/20 06/25/20 14:00 15:09 15:30 15:45 Pulse 58 57 56 57 Resp 22 22 22 B/P (MAP) 103/62 (76) 104/61 (75) 103/61 (75) Pulse Ox 95 95 95 O2 Delivery Ventilator Ventilator Ventilator 1/1106/25/20 06/25/20 06/25/20 15:50 16:00 16:00 16:15 Temp 98.0 98.0 Pulse 56 58 Resp 22 22 B/P (MAP) 101/58 (72) 100/64 (76) Pulse Ox 96 95 95 O2 Delivery Ventilator Ventilator Mechanical Ventilator Ventilator 06/25/20 06/25/20 06/25/20 06/25/20 16:30 16:45 18:00 19:00 Pulse 58 58 59 62 Resp 22 22 22 18 B/P (MAP) 106/64 (78) 105/64 (78) 106/64 (78) 112/64 (80) Pulse Ox 95 94 97 99 O2 Delivery Ventilator Ventilator Ventilator Ventilator 06/25/20 06/25/20 06/25/20 06/25/20 20:00 20:00 20:12 20:40 Temp 99.3 99.3 Pulse 63 Resp 18 18 18 B/P (MAP) 103/63 (76) Pulse Ox 99 100 99 O2 Delivery Ventilator Mechanical Ventilator Ventilator 06/25/20 06/25/20 06/25/20 06/25/20 20:46 21:00 22:00 23:00 Pulse 64 69 68 Resp 18 18 18 B/P (MAP) 112/55 (74) 104/64 (77) 100/65 (77) Pulse Ox 100 100 99 99 O2 Delivery Ventilator Ventilator Ventilator Ventilator 06/25/20 06/25/20 06/26/20 06/26/20 23:59 23:59 00:42 01:00 Temp 99.0 99.0 Pulse 68 62 Resp 18 18 B/P (MAP) 110/78 (89) 99/64 (76) Pulse Ox 99 100 100 O2 Delivery Mechanical Ventilator Ventilator Ventilator Ventilator 06/26/20 06/26/20 06/26/20 06/26/20 02:00 03:00 03:30 04:00 Pulse 65 64 Resp 18 18 18 18 B/P (MAP) 98/52 (67) 100/69 (79) Pulse Ox 100 100 100 100 O2 Delivery Ventilator Ventilator O2 Flow Rate 15.0 06/26/20 06/26/20 06/26/20 06/26/20 04:00 04:00 05:00 05:19 Temp 99.2 99.2 Pulse 64 63 Resp 18 18 B/P (MAP) 107/71 (83) 102/61 (75) Pulse Ox 100 100 100 O2 Delivery Ventilator Mechanical Ventilator Ventilator Ventilator 06/26/20 06/26/20 06/26/20 06/26/20 06:00 07:00 08:00 08:00 Temp 99.6 99.6 Pulse 64 61 62 Resp 18 18 18 B/P (MAP) 100/60 (73) 98/52 (67) 103/49 (67) Pulse Ox 100 100 98 O2 Delivery Ventilator Ventilator Ventilator Mechanical Ventilator 06/26/20 08:21 Pulse Ox 97 O2 Delivery Ventilator Intake and Output 06/25/20 06/25/20 06/26/20 15:00 23:00 07:00 Intake Total 1109 ml 453.4 ml 1506 ml Output Total 365 ml 425 ml 270 ml Balance 744 ml 28.4 ml 1236 ml Justicifation of Admission Dx: Justifications for Admission: Justification of Admission Dx: N/A JEFF FLORES MD Jun 26, 2020 09:03
[2020-06-26] MEDS: ASPIRIN CHEWABLE 81 MG TABLET. PO SCH (10:23)
[2020-06-26] MEDS: AMIODARONE HCL 200 MG TABLET. PO SCH (10:23)
[2020-06-26] MEDS: CARVEDILOL 3.125 MG TABLET. PO SCH ×2 (10:23→17:00)
[2020-06-26] MEDS: FAMOTIDINE 20 MG/2 ML VIAL IVP SCH ×2 (10:24→20:33)
--- NOTE | 2020-06-26 10:25 | PDOC ---
SURGICAL PROGRESS NOTE DATE: 06/26/20 TIME: 10:24 Subjective Pre-op Note 59 yo F with respiratory failure. TO OR for tracheostomy. R/R/B/A d/w pt's . Risks, including, but not limited to: bleeding, in fection, damage to surrounding structures, risk of anesthesia. He appears to understand, his questions are answered and he elects to proceed. Vital Signs Vital Signs Date Time Temp Pulse Resp B/P (MAP) Pulse Ox O2 Delivery O2 Flow Rate FiO2 06/26/20 10:00 63 18 98/57 (71) 97 Ventilator 06/26/20 08:00 99.6 99.6 06/26/20 04:00 15.0 I&O Intake and Output 06/26/20 07:00 Intake Total 3068.4 ml Output Total 1060 ml Balance 2008.4 ml IV Total 2193.4 ml Tube Feeding 875 ml Output Urine Total 1050 ml Chest Tube Drainage Total 10 ml Labs Laboratory Tests Test 06/24/20 11:47 06/24/20 17:47 06/25/20 09:05 06/25/20 15:03 Glucose (Fingerstick) 127 mg/dL (70-99) 132 mg/dL (70-99) O2 Saturation 97 % (92-99) Arterial Blood pH 7.36 (7.35-7.45) Arterial Blood pCO2 at Patient Temp 49 mmHg (35-46) Arterial Blood pO2 at Patient Temp 104 mmHg (75-108) Arterial Blood HCO3 27 mmol/L (21-28) Arterial Blood Base Excess 1 mmol/L (-3-3) FiO2 100 White Blood Count 8.8 x10^3/uL (4.0-11.0) Red Blood Count 2.95 x10^6/uL (3.50-5.40) Hemoglobin 8.8 g/dL (12.0-15.5) Hematocrit 27.0 % (36.0-47.0) Mean Corpuscular Volume 91 fL (79-100) Mean Corpuscular Hemoglobin 30 pg (25-35) Mean Corpuscular Hemoglobin Concent 33 g/dL (31-37) Red Cell Distribution Width 13.1 % (11.5-14.5) Platelet Count 260 x10^3/uL (140-400) Sodium Level 143 mmol/L (136-145) Potassium Level 3.4 mmol/L (3.5-5.1) Chloride Level 106 mmol/L (98-107) Carbon Dioxide Level 25 mmol/L (21-32) Anion Gap 12 (6-14) Blood Urea Nitrogen 16 mg/dL (7-20) Creatinine 0.4 mg/dL (0.6-1.0) Estimated GFR (Cockcroft-Gault) 164.5 BUN/Creatinine Ratio 40 (6-20) Glucose Level 87 mg/dL (70-99) Calcium Level 7.6 mg/dL (8.5-10.1) Magnesium Level 1.8 mg/dL (1.8-2.4) Total Bilirubin 0.4 mg/dL (0.2-1.0) Aspartate Amino Transf (AST/SGOT) 37 U/L (15-37) Alanine Aminotransferase (ALT/SGPT) 60 U/L (14-59) Alkaline Phosphatase 117 U/L (46-116) Total Protein 5.5 g/dL (6.4-8.2) Albumin 2.0 g/dL (3.4-5.0) Albumin/Globulin Ratio 0.6 (1.0-1.7) Test 06/25/20 17:30 06/26/20 05:30 06/26/20 08:15 Glucose (Fingerstick) 79 mg/dL (70-99) White Blood Count 9.5 x10^3/uL (4.0-11.0) Red Blood Count 3.11 x10^6/uL (3.50-5.40) Hemoglobin 9.5 g/dL (12.0-15.5) Hematocrit 28.1 % (36.0-47.0) Mean Corpuscular Volume 90 fL (79-100) Mean Corpuscular Hemoglobin 31 pg (25-35) Mean Corpuscular Hemoglobin Concent 34 g/dL (31-37) Red Cell Distribution Width 12.8 % (11.5-14.5) Platelet Count 286 x10^3/uL (140-400) Neutrophils (%) (Auto) 72 % (31-73) Lymphocytes (%) (Auto) 20 % (24-48) Monocytes (%) (Auto) 6 % (0-9) Eosinophils (%) (Auto) 3 % (0-3) Basophils (%) (Auto) 1 % (0-3) Neutrophils # (Auto) 6.8 x10^3/uL (1.8-7.7) Lymphocytes # (Auto) 1.9 x10^3/uL (1.0-4.8) Monocytes # (Auto) 0.5 x10^3/uL (0.0-1.1) Eosinophils # (Auto) 0.3 x10^3/uL (0.0-0.7) Basophils # (Auto) 0.0 x10^3/uL (0.0-0.2) Sodium Level 136 mmol/L (136-145) Potassium Level 4.0 mmol/L (3.5-5.1) Chloride Level 102 mmol/L (98-107) Carbon Dioxide Level 25 mmol/L (21-32) Anion Gap 9 (6-14) Blood Urea Nitrogen 15 mg/dL (7-20) Creatinine 0.5 mg/dL (0.6-1.0) Estimated GFR (Cockcroft-Gault) 127.2 Glucose Level 91 mg/dL (70-99) Calcium Level 8.4 mg/dL (8.5-10.1) O2 Saturation 95 % (92-99) Arterial Blood pH 7.48 (7.35-7.45) Arterial Blood pCO2 at Patient Temp 30 mmHg (35-46) Arterial Blood pO2 at Patient Temp 81 mmHg (75-108) Arterial Blood HCO3 22 mmol/L (21-28) Arterial Blood Base Excess -1 mmol/L (-3-3) FiO2 40%+5 Laboratory Tests Test 06/25/20 15:03 06/25/20 17:30 06/26/20 05:30 06/26/20 08:15 White Blood Count 8.8 x10^3/uL (4.0-11.0) 9.5 x10^3/uL (4.0-11.0) Red Blood Count 2.95 x10^6/uL (3.50-5.40) 3.11 x10^6/uL (3.50-5.40) Hemoglobin 8.8 g/dL (12.0-15.5) 9.5 g/dL (12.0-15.5) Hematocrit 27.0 % (36.0-47.0) 28.1 % (36.0-47.0) Mean Corpuscular Volume 91 fL (79-100) 90 fL (79-100) Mean Corpuscular Hemoglobin 30 pg (25-35) 31 pg (25-35) Mean Corpuscular Hemoglobin Concent 33 g/dL (31-37) 34 g/dL (31-37) Red Cell Distribution Width 13.1 % (11.5-14.5) 12.8 % (11.5-14.5) Platelet Count 260 x10^3/uL (140-400) 286 x10^3/uL (140-400) Sodium Level 143 mmol/L (136-145) 136 mmol/L (136-145) Potassium Level 3.4 mmol/L (3.5-5.1) 4.0 mmol/L (3.5-5.1) Chloride Level 106 mmol/L (98-107) 102 mmol/L (98-107) Carbon Dioxide Level 25 mmol/L (21-32) 25 mmol/L (21-32) Anion Gap 12 (6-14) 9 (6-14) Blood Urea Nitrogen 16 mg/dL (7-20) 15 mg/dL (7-20) Creatinine 0.4 mg/dL (0.6-1.0) 0.5 mg/dL (0.6-1.0) Estimated GFR (Cockcroft-Gault) 164.5 127.2 BUN/Creatinine Ratio 40 (6-20) Glucose Level 87 mg/dL (70-99) 91 mg/dL (70-99) Calcium Level 7.6 mg/dL (8.5-10.1) 8.4 mg/dL (8.5-10.1) Magnesium Level 1.8 mg/dL (1.8-2.4) Total Bilirubin 0.4 mg/dL (0.2-1.0) Aspartate Amino Transf (AST/SGOT) 37 U/L (15-37) Alanine Aminotransferase (ALT/SGPT) 60 U/L (14-59) Alkaline Phosphatase 117 U/L (46-116) Total Protein 5.5 g/dL (6.4-8.2) Albumin 2.0 g/dL (3.4-5.0) Albumin/Globulin Ratio 0.6 (1.0-1.7) Glucose (Fingerstick) 79 mg/dL (70-99) Neutrophils (%) (Auto) 72 % (31-73) Lymphocytes (%) (Auto) 20 % (24-48) Monocytes (%) (Auto) 6 % (0-9) Eosinophils (%) (Auto) 3 % (0-3) Basophils (%) (Auto) 1 % (0-3) Neutrophils # (Auto) 6.8 x10^3/uL (1.8-7.7) Lymphocytes # (Auto) 1.9 x10^3/uL (1.0-4.8) Monocytes # (Auto) 0.5 x10^3/uL (0.0-1.1) Eosinophils # (Auto) 0.3 x10^3/uL (0.0-0.7) Basophils # (Auto) 0.0 x10^3/uL (0.0-0.2) O2 Saturation 95 % (92-99) Arterial Blood pH 7.48 (7.35-7.45) Arterial Blood pCO2 at Patient Temp 30 mmHg (35-46) Arterial Blood pO2 at Patient Temp 81 mmHg (75-108) Arterial Blood HCO3 22 mmol/L (21-28) Arterial Blood Base Excess -1 mmol/L (-3-3) FiO2 40%+5 Problem List Problems Medical Problems: (1) Cardiac arrest Status: Acute (2) Fracture of ribs, multiple Status: Acute (3) Hyperglycemia Status: Acute (4) Pneumonia Status: Acute (5) Pneumothorax, right Status: Acute (6) Sternal fracture Status: Acute (7) VF (ventricular fibrillation) Status: Acute Justicifation of Admission Dx: Justifications for Admission: Justification of Admission Dx: N/A MELY PAUL MD Jun 26, 2020 10:25
--- NOTE | 2020-06-26 10:29 | PDOC ---
LORI SOLORZANO [employer]ING [employer] FINISHER 06/26/20 1029: CARDIO Progress Notes Date and Time Date of Service 06/26/20 Time of Evaluation 1020 Subjective Subjective: Other (intubated, vent) Vitals Vitals Vital Signs Date Time Temp Pulse Resp B/P (MAP) Pulse Ox O2 Delivery O2 Flow Rate FiO2 06/26/20 10:00 63 18 98/57 (71) 97 Ventilator 06/26/20 08:00 99.6 99.6 06/26/20 04:00 15.0 Weight Weight [ ] Input and Output Intake and Output Intake and Output 06/26/20 07:00 Intake Total 3068.4 ml Output Total 1060 ml Balance 2008.4 ml IV Total 2193.4 ml Tube Feeding 875 ml Output Urine Total 1050 ml Chest Tube Drainage Total 10 ml Laboratory Labs Laboratory Tests Test 06/25/20 15:03 06/25/20 17:30 06/26/20 05:30 06/26/20 08:15 White Blood Count 8.8 x10^3/uL (4.0-11.0) 9.5 x10^3/uL (4.0-11.0) Red Blood Count 2.95 x10^6/uL (3.50-5.40) 3.11 x10^6/uL (3.50-5.40) Hemoglobin 8.8 g/dL (12.0-15.5) 9.5 g/dL (12.0-15.5) Hematocrit 27.0 % (36.0-47.0) 28.1 % (36.0-47.0) Mean Corpuscular Volume 91 fL (79-100) 90 fL (79-100) Mean Corpuscular Hemoglobin 30 pg (25-35) 31 pg (25-35) Mean Corpuscular Hemoglobin Concent 33 g/dL (31-37) 34 g/dL (31-37) Red Cell Distribution Width 13.1 % (11.5-14.5) 12.8 % (11.5-14.5) Platelet Count 260 x10^3/uL (140-400) 286 x10^3/uL (140-400) Sodium Level 143 mmol/L (136-145) 136 mmol/L (136-145) Potassium Level 3.4 mmol/L (3.5-5.1) 4.0 mmol/L (3.5-5.1) Chloride Level 106 mmol/L (98-107) 102 mmol/L (98-107) Carbon Dioxide Level 25 mmol/L (21-32) 25 mmol/L (21-32) Anion Gap 12 (6-14) 9 (6-14) Blood Urea Nitrogen 16 mg/dL (7-20) 15 mg/dL (7-20) Creatinine 0.4 mg/dL (0.6-1.0) 0.5 mg/dL (0.6-1.0) Estimated GFR (Cockcroft-Gault) 164.5 127.2 BUN/Creatinine Ratio 40 (6-20) Glucose Level 87 mg/dL (70-99) 91 mg/dL (70-99) Calcium Level 7.6 mg/dL (8.5-10.1) 8.4 mg/dL (8.5-10.1) Magnesium Level 1.8 mg/dL (1.8-2.4) Total Bilirubin 0.4 mg/dL (0.2-1.0) Aspartate Amino Transf (AST/SGOT) 37 U/L (15-37) Alanine Aminotransferase (ALT/SGPT) 60 U/L (14-59) Alkaline Phosphatase 117 U/L (46-116) Total Protein 5.5 g/dL (6.4-8.2) Albumin 2.0 g/dL (3.4-5.0) Albumin/Globulin Ratio 0.6 (1.0-1.7) Glucose (Fingerstick) 79 mg/dL (70-99) Neutrophils (%) (Auto) 72 % (31-73) Lymphocytes (%) (Auto) 20 % (24-48) Monocytes (%) (Auto) 6 % (0-9) Eosinophils (%) (Auto) 3 % (0-3) Basophils (%) (Auto) 1 % (0-3) Neutrophils # (Auto) 6.8 x10^3/uL (1.8-7.7) Lymphocytes # (Auto) 1.9 x10^3/uL (1.0-4.8) Monocytes # (Auto) 0.5 x10^3/uL (0.0-1.1) Eosinophils # (Auto) 0.3 x10^3/uL (0.0-0.7) Basophils # (Auto) 0.0 x10^3/uL (0.0-0.2) O2 Saturation 95 % (92-99) Arterial Blood pH 7.48 (7.35-7.45) Arterial Blood pCO2 at Patient Temp 30 mmHg (35-46) Arterial Blood pO2 at Patient Temp 81 mmHg (75-108) Arterial Blood HCO3 22 mmol/L (21-28) Arterial Blood Base Excess -1 mmol/L (-3-3) FiO2 40%+5 Microbiology Micro Microbiology 06/17/20 Blood Culture - Final, Complete NO GROWTH AFTER 5 DAYS Physical Exam HEENT: Neck Supple W Full Motion Chest: Symmetric LUNGS: Other (intubated, vent) Heart: RRR (SR with PVCs) Abdomen: Other (soft) Extremities: No Edema Neurology: other (sedated) Assessment Assessment 1. OOH cardiopulmonary arrest due to VT 2. Acute respiratory failure with possible pneumonia: negative for PE 3. Severe, non-schemic cardiomyopathy: EF 25%. [facility] 06/25/20 with normal coronaries 4. Right pneumothorax, sternal fractures: due to chest compression 5. Anoxic encephalopathy 6. Acute systolic CHF: compensated. Cath with normal filling pressures 7. Hypothyroidism: on replacement Recommendations Continue amiodarone for rhythm maintenance Continue Coreg as BP allows No LORAINE/ARB due to hypotension Lasix PRN Prognosis poor Trach today, PEG planned for tomorrow Ongoing support Justicifation of Admission Dx: Justifications for Admission: Justification of Admission Dx: N/A SHADIA CARRION MD 06/26/20 1644: CARDIO Progress Notes Plan Plan Patient seen and examined. Agree with above nurse practitioner note. Patient's updated regarding cardiac catheterization results. Supportive care from a cardiac perspective LORI SOLORZANO APRN Jun 26, 2020 10:29 SHADIA CARRION MD Jun 26, 2020 16:44
--- NOTE | 2020-06-26 10:57 | PDOC ---
Date of Service: DATE: 06/26/20 TIME: 10:53 Subjective: Subjective: says plans for trach today, wonders when PEG might be and when they might discharge after that - he says waiting to talk to social work about [employer]. Objective: Vital Signs: Vital Signs Date Time Temp Pulse Resp B/P (MAP) Pulse Ox O2 Delivery O2 Flow Rate FiO2 06/26/20 10:23 63 98/57 06/26/20 10:00 18 97 Ventilator 06/26/20 08:00 99.6 99.6 06/26/20 04:00 15.0 Labs: Laboratory Tests Test 06/25/20 15:03 06/25/20 17:30 06/26/20 05:30 06/26/20 08:15 White Blood Count 8.8 x10^3/uL 9.5 x10^3/uL Red Blood Count 2.95 x10^6/uL 3.11 x10^6/uL Hemoglobin 8.8 g/dL 9.5 g/dL Hematocrit 27.0 % 28.1 % Mean Corpuscular Volume 91 fL 90 fL Mean Corpuscular Hemoglobin 30 pg 31 pg Mean Corpuscular Hemoglobin Concent 33 g/dL 34 g/dL Red Cell Distribution Width 13.1 % 12.8 % Platelet Count 260 x10^3/uL 286 x10^3/uL Sodium Level 143 mmol/L 136 mmol/L Potassium Level 3.4 mmol/L 4.0 mmol/L Chloride Level 106 mmol/L 102 mmol/L Carbon Dioxide Level 25 mmol/L 25 mmol/L Anion Gap 12 9 Blood Urea Nitrogen 16 mg/dL 15 mg/dL Creatinine 0.4 mg/dL 0.5 mg/dL Estimated GFR (Cockcroft-Gault) 164.5 127.2 BUN/Creatinine Ratio 40 Glucose Level 87 mg/dL 91 mg/dL Calcium Level 7.6 mg/dL 8.4 mg/dL Magnesium Level 1.8 mg/dL Total Bilirubin 0.4 mg/dL Aspartate Amino Transf (AST/SGOT) 37 U/L Alanine Aminotransferase (ALT/SGPT) 60 U/L Alkaline Phosphatase 117 U/L Total Protein 5.5 g/dL Albumin 2.0 g/dL Albumin/Globulin Ratio 0.6 Glucose (Fingerstick) 79 mg/dL Neutrophils (%) (Auto) 72 % Lymphocytes (%) (Auto) 20 % Monocytes (%) (Auto) 6 % Eosinophils (%) (Auto) 3 % Basophils (%) (Auto) 1 % Neutrophils # (Auto) 6.8 x10^3/uL Lymphocytes # (Auto) 1.9 x10^3/uL Monocytes # (Auto) 0.5 x10^3/uL Eosinophils # (Auto) 0.3 x10^3/uL Basophils # (Auto) 0.0 x10^3/uL O2 Saturation 95 % Arterial Blood pH 7.48 Arterial Blood pCO2 at Patient Temp 30 mmHg Arterial Blood pO2 at Patient Temp 81 mmHg Arterial Blood HCO3 22 mmol/L Arterial Blood Base Excess -1 mmol/L FiO2 40%+5 Imaging: CXR 06/25 IMPRESSION: 1. Stable chest x-ray. Cath 06/25 Conclusion 1. Normal left sided filling pressures. 2. Normal angiographic appearance of the coronary arteries. PE: GEN: intubated - present LUNGS: vent HEART: RRR ABD: soft NEURO/PSYCH: sedated A/P: S/p cardiopulmonary arrest, anoxic encephalopathy, resp failure -- Will tentatively plan for PEG placement tomorrow after tracheostomy today. INR normal 06/19/20, COVID negative 06/17. Justicifation of Admission Dx: Justifications for Admission: Justification of Admission Dx: N/A SHAHBAZ FOSS Jun 26, 2020 10:57
--- NOTE | 2020-06-26 11:07 | PDOC ---
[employer] PROGRESS NOTE Date of Service DOS: DATE: 06/26/20 TIME: 11:06 Chief Complaint Chief Complaint Cardiac arrest with resuscitation and probable pneumonia, sternal fracture and pneumothorax secondary to CPR, leukocytosis, electrolyte disturbance, hypokalemia, lactic acidosis, elevated troponin. History of Present Illness History of Present Illness 06/26/2020 Patient seen and examined in the ICU She remains intubated Going for tracheostomy today at 230 Vent settings as follows; AC/18/500/40 percent with 5 of PEEP She is on PPN Sedated with Versed and fentanyl Chart reviewed Discussed with her Discussed with RN She remains critically ill 06/25/2020 Patient seen and examined in the ICU She remains intubated Discussed with RN Discussed with neurologist Vent settings as follows AC/18/500/40 percent with 5 of PEEP She has a tracheostomy that is clean dry and intact Family present She remains critically ill The patient is a pleasant 59-year-old female who had COVID-19 two months ago. She had a witnessed cardiac arrest today. The family started CPR, they called the ambulance. She has now been resuscitated and intubated. She is currently being examined in the ER where she is starting to have some posturing. She is not really responding to pain either, but her pupils are reactive. 06/24: Patient seen in ICU. On vent, FiO2 40%, PEEP 5. I believe she has anoxic encephalopathy. No purposeful movements, and unsafe off sedation. I believe family is to discuss possible withdrawal of care soon, versus further aggressive treatment with trach and PEG. Discussed with RN. 06/23: Afebrile. On vent with FiO2 40%, PEEP 5. She is restless, no purposeful movements off sedation. Discussed with RN, continue to try to wean off vent. 06/22: No acute events overnight. Afebrile. On vent FiO2 40%, PEEP 5. Working towards extubation. Charts and labs reviewed, continue current medical management. 06/21: Patient narcisa in ICU on ventilator. FiO2 40%, PEEP 5%. She is afebrile. Discussed with RN, no acute vents overnight. Charts and labs reviewed. Continue antibiotic treatment with Zosyn. 06/20: Patient seen in ICU. She remains on ventilator, FiO2 40%, PEEP 5. Afebrile. No acute events overnight. Echocardiogram obtained, showing mildly dilated left ventricle with global hypokinesis, estimated ejection fraction 25%. 06/19: Patient seen in ICU. On ventilator, FiO2 40%, PEEP 5. Continue IV Zosyn. Follow neurology and cardiology recommendations. Chest tube management and vent management per pulmonology. 06/18: Patient seen in ICU. Afebrile. Ventilated, FiO2 40%, PEEP 5. Continue antibiotic coverage. Charts and labs reviewed. Discussed with RN, no acute events overnight. COVID-19 negative. Echocardiogram pending. Vitals/I&O Vitals/I&O: Vital Signs Date Time Temp Pulse Resp B/P (MAP) Pulse Ox O2 Delivery O2 Flow Rate FiO2 06/26/20 10:23 63 98/57 06/26/20 10:00 18 97 Ventilator 06/26/20 08:00 99.6 99.6 06/26/20 04:00 15.0 I & O 06/25/20 06/25/20 06/26/20 15:00 23:00 07:00 Intake Total 1109 ml 453.4 ml 1506 ml Output Total 365 ml 425 ml 270 ml Balance 744 ml 28.4 ml 1236 ml Physical Exam Physical Exam: GENERAL: Sedated, orally intubated female, not in distress. HEENT: Both pupils are round and reacting. No conjunctival lesion. Mouth cannot be visualized, orally intubated. NECK: Supple. No JVP, no lymphadenopathy. LUNGS: Decreased breath sounds bilaterally. HEART: S1, S2, regular. No gallop or murmur. ABDOMEN: Soft, nontender. No organomegaly. EXTREMITIES: No edema or cyanosis. toe amputation of the Rt foot,healed scars SKIN: Unremarkable. NEUROLOGICAL: The patient is sedated, orally intubated. General: Other (sedated) Heart: Regular rate, Normal S1, Normal S2 Lungs: Clear Abdomen: Soft, No hepatosplenomegaly Extremities: No cyanosis Skin: No rashes, No breakdown Labs Labs: Laboratory Tests Test 06/25/20 15:03 06/25/20 17:30 06/26/20 05:30 06/26/20 08:15 White Blood Count 8.8 x10^3/uL (4.0-11.0) 9.5 x10^3/uL (4.0-11.0) Red Blood Count 2.95 x10^6/uL (3.50-5.40) 3.11 x10^6/uL (3.50-5.40) Hemoglobin 8.8 g/dL (12.0-15.5) 9.5 g/dL (12.0-15.5) Hematocrit 27.0 % (36.0-47.0) 28.1 % (36.0-47.0) Mean Corpuscular Volume 91 fL (79-100) 90 fL (79-100) Mean Corpuscular Hemoglobin 30 pg (25-35) 31 pg (25-35) Mean Corpuscular Hemoglobin Concent 33 g/dL (31-37) 34 g/dL (31-37) Red Cell Distribution Width 13.1 % (11.5-14.5) 12.8 % (11.5-14.5) Platelet Count 260 x10^3/uL (140-400) 286 x10^3/uL (140-400) Sodium Level 143 mmol/L (136-145) 136 mmol/L (136-145) Potassium Level 3.4 mmol/L (3.5-5.1) 4.0 mmol/L (3.5-5.1) Chloride Level 106 mmol/L (98-107) 102 mmol/L (98-107) Carbon Dioxide Level 25 mmol/L (21-32) 25 mmol/L (21-32) Anion Gap 12 (6-14) 9 (6-14) Blood Urea Nitrogen 16 mg/dL (7-20) 15 mg/dL (7-20) Creatinine 0.4 mg/dL (0.6-1.0) 0.5 mg/dL (0.6-1.0) Estimated GFR (Cockcroft-Gault) 164.5 127.2 BUN/Creatinine Ratio 40 (6-20) Glucose Level 87 mg/dL (70-99) 91 mg/dL (70-99) Calcium Level 7.6 mg/dL (8.5-10.1) 8.4 mg/dL (8.5-10.1) Magnesium Level 1.8 mg/dL (1.8-2.4) Total Bilirubin 0.4 mg/dL (0.2-1.0) Aspartate Amino Transf (AST/SGOT) 37 U/L (15-37) Alanine Aminotransferase (ALT/SGPT) 60 U/L (14-59) Alkaline Phosphatase 117 U/L (46-116) Total Protein 5.5 g/dL (6.4-8.2) Albumin 2.0 g/dL (3.4-5.0) Albumin/Globulin Ratio 0.6 (1.0-1.7) Glucose (Fingerstick) 79 mg/dL (70-99) Neutrophils (%) (Auto) 72 % (31-73) Lymphocytes (%) (Auto) 20 % (24-48) Monocytes (%) (Auto) 6 % (0-9) Eosinophils (%) (Auto) 3 % (0-3) Basophils (%) (Auto) 1 % (0-3) Neutrophils # (Auto) 6.8 x10^3/uL (1.8-7.7) Lymphocytes # (Auto) 1.9 x10^3/uL (1.0-4.8) Monocytes # (Auto) 0.5 x10^3/uL (0.0-1.1) Eosinophils # (Auto) 0.3 x10^3/uL (0.0-0.7) Basophils # (Auto) 0.0 x10^3/uL (0.0-0.2) O2 Saturation 95 % (92-99) Arterial Blood pH 7.48 (7.35-7.45) Arterial Blood pCO2 at Patient Temp 30 mmHg (35-46) Arterial Blood pO2 at Patient Temp 81 mmHg (75-108) Arterial Blood HCO3 22 mmol/L (21-28) Arterial Blood Base Excess -1 mmol/L (-3-3) FiO2 40%+5 Assessment and Plan Assessmemt and Plan Problems Medical Problems: (1) Cardiac arrest Status: Acute (2) Fracture of ribs, multiple Status: Acute (3) Hyperglycemia Status: Acute (4) Pneumonia Status: Acute (5) Pneumothorax, right Status: Acute (6) Sternal fracture Status: Acute (7) VF (ventricular fibrillation) Status: Acute Cardiac arrest with resuscitation and probable pneumonia, sternal fracture and pneumothorax secondary to CPR, leukocytosis, electrolyte disturbance, hypokalemia, lactic acidosis, elevated troponin. Plan Going for tracheostomy today at 230 ICU monitoring Vent weaning We will likely need long-term acute care for a few weeks Home meds DVT prophylaxis Full code Appreciate subspecialist input CC time 32-minute Comment Review of Relevant I have reviewed the following items afua (where applicable) has been applied. Medications: Current Medications Medications (Trade) Dose Ordered Sig/Rosalio Route PRN Reason Start Time Stop Time Status Last Admin Dose Admin Midazolam HCl 100 ml @ 0 mls/hr CONT PRN IV SEE PROTOCOL 06/25/20 11:45 06/26/20 10:35 Nitroglycerin (Nitroglycerin) 200 mcg 1X ONCE IART 06/25/20 15:15 06/25/20 15:16 DC 06/25/20 15:09 Verapamil HCl (Verapamil) 2.5 mg 1X ONCE IART 06/25/20 15:15 06/25/20 15:16 DC 06/25/20 15:09 Heparin Sodium (Porcine) (Heparin Sodium) 2,500 unit 1X ONCE IART 06/25/20 15:15 06/25/20 15:16 DC 06/25/20 15:09 Heparin Sodium/ Sodium Chloride (HEPARIN for ARTERIAL LINE FLUSH) 1,000 unit 1X ONCE IART 06/25/20 15:15 06/25/20 15:16 DC 06/25/20 15:09 Iohexol (Omnipaque 300 Mg/ml) 30 ml 1X ONCE IART 06/25/20 15:15 06/25/20 15:16 DC 06/25/20 15:09 Lidocaine HCl (Xylocaine-Mpf 1% 2ml Vial) 2 ml 1X ONCE INJ 06/25/20 15:15 06/25/20 15:16 DC 06/25/20 15:09 Amino Acids/ Glycerin/ Electrolytes 1,000 ml @ 80 mls/hr [id number] IV 06/25/20 17:30 06/26/20 05:46 Potassium Chloride/Water 100 ml @ 100 mls/hr Q1H IV 06/25/20 18:00 06/25/20 19:59 DC 06/25/20 18:46 Justifications for Admission Other Justification HUSSEIN GOODWIN III DO Jun 26, 2020 11:07
[2020-06-26] MEDS ORDERED: ROCURONIUM 50 MG/5 ML VIAL. ONE (11:37)
--- NOTE | 2020-06-26 12:05 | RAD ---
EXAM: XR CHEST 1V INDICATION: Reason: chest tube clamped, pneumo f/u / Spl. Instructions: / History: . TECHNIQUE: Single view COMPARISON: 06/25/2020 chest x-ray FINDINGS: Patient remains intubated with ET tube terminating 6.3 cm above the guillermo. Enteric tube passes below the diaphragms as before. Stable appearance to right subclavian approach central venous catheter with the tip near the cavoatri al junction.. Heart size is borderline enlarged, similar to prior. The great vessels appear unremarkable. There is no hilar or mediastinal mass. Lungs show left basilar atelectasis. Small left greater than right bilateral pleural effusions. No pneumothorax. There are no significant osseous abnormalities. IMPRESSION: 1. Stable endotracheal intubation with no pneumothorax. 2. Left basilar atelectasis and small left greater than right bilateral pleural effusions. Electronically signed by: Odalis Colon MD (06/26/2020 12:03 PM) [id number]
--- NOTE | 2020-06-26 12:07 | PDOC ---
PULMONARY PROGRESS NOTES DATE: 06/26/20 TIME: 12:03 Subjective S/P cardiac arrest 06/17---PEA / V-fib remains on vent support 40% and PEEP of 5 planned fro trach today no overnight concerns Vitals Vital Signs Date Time Temp Pulse Resp B/P (MAP) Pulse Ox O2 Delivery O2 Flow Rate FiO2 06/26/20 11:33 97 Ventilator 06/26/20 11:30 18 06/26/20 11:00 61 107/53 (71) 06/26/20 08:00 99.6 99.6 06/26/20 04:00 15.0 Comments intubated sedated Lungs: Clear Cardiovascular: S1 Abdomen: Soft Extremities: No Edema Labs Laboratory Tests Test 06/24/20 17:47 06/25/20 09:05 06/25/20 15:03 06/25/20 17:30 Glucose (Fingerstick) 132 mg/dL (70-99) 79 mg/dL (70-99) O2 Saturation 97 % (92-99) Arterial Blood pH 7.36 (7.35-7.45) Arterial Blood pCO2 at Patient Temp 49 mmHg (35-46) Arterial Blood pO2 at Patient Temp 104 mmHg (75-108) Arterial Blood HCO3 27 mmol/L (21-28) Arterial Blood Base Excess 1 mmol/L (-3-3) FiO2 100 White Blood Count 8.8 x10^3/uL (4.0-11.0) Red Blood Count 2.95 x10^6/uL (3.50-5.40) Hemoglobin 8.8 g/dL (12.0-15.5) Hematocrit 27.0 % (36.0-47.0) Mean Corpuscular Volume 91 fL (79-100) Mean Corpuscular Hemoglobin 30 pg (25-35) Mean Corpuscular Hemoglobin Concent 33 g/dL (31-37) Red Cell Distribution Width 13.1 % (11.5-14.5) Platelet Count 260 x10^3/uL (140-400) Sodium Level 143 mmol/L (136-145) Potassium Level 3.4 mmol/L (3.5-5.1) Chloride Level 106 mmol/L (98-107) Carbon Dioxide Level 25 mmol/L (21-32) Anion Gap 12 (6-14) Blood Urea Nitrogen 16 mg/dL (7-20) Creatinine 0.4 mg/dL (0.6-1.0) Estimated GFR (Cockcroft-Gault) 164.5 BUN/Creatinine Ratio 40 (6-20) Glucose Level 87 mg/dL (70-99) Calcium Level 7.6 mg/dL (8.5-10.1) Magnesium Level 1.8 mg/dL (1.8-2.4) Total Bilirubin 0.4 mg/dL (0.2-1.0) Aspartate Amino Transf (AST/SGOT) 37 U/L (15-37) Alanine Aminotransferase (ALT/SGPT) 60 U/L (14-59) Alkaline Phosphatase 117 U/L (46-116) Total Protein 5.5 g/dL (6.4-8.2) Albumin 2.0 g/dL (3.4-5.0) Albumin/Globulin Ratio 0.6 (1.0-1.7) Test 06/26/20 05:30 06/26/20 08:15 White Blood Count 9.5 x10^3/uL (4.0-11.0) Red Blood Count 3.11 x10^6/uL (3.50-5.40) Hemoglobin 9.5 g/dL (12.0-15.5) Hematocrit 28.1 % (36.0-47.0) Mean Corpuscular Volume 90 fL (79-100) Mean Corpuscular Hemoglobin 31 pg (25-35) Mean Corpuscular Hemoglobin Concent 34 g/dL (31-37) Red Cell Distribution Width 12.8 % (11.5-14.5) Platelet Count 286 x10^3/uL (140-400) Neutrophils (%) (Auto) 72 % (31-73) Lymphocytes (%) (Auto) 20 % (24-48) Monocytes (%) (Auto) 6 % (0-9) Eosinophils (%) (Auto) 3 % (0-3) Basophils (%) (Auto) 1 % (0-3) Neutrophils # (Auto) 6.8 x10^3/uL (1.8-7.7) Lymphocytes # (Auto) 1.9 x10^3/uL (1.0-4.8) Monocytes # (Auto) 0.5 x10^3/uL (0.0-1.1) Eosinophils # (Auto) 0.3 x10^3/uL (0.0-0.7) Basophils # (Auto) 0.0 x10^3/uL (0.0-0.2) Sodium Level 136 mmol/L (136-145) Potassium Level 4.0 mmol/L (3.5-5.1) Chloride Level 102 mmol/L (98-107) Carbon Dioxide Level 25 mmol/L (21-32) Anion Gap 9 (6-14) Blood Urea Nitrogen 15 mg/dL (7-20) Creatinine 0.5 mg/dL (0.6-1.0) Estimated GFR (Cockcroft-Gault) 127.2 Glucose Level 91 mg/dL (70-99) Calcium Level 8.4 mg/dL (8.5-10.1) O2 Saturation 95 % (92-99) Arterial Blood pH 7.48 (7.35-7.45) Arterial Blood pCO2 at Patient Temp 30 mmHg (35-46) Arterial Blood pO2 at Patient Temp 81 mmHg (75-108) Arterial Blood HCO3 22 mmol/L (21-28) Arterial Blood Base Excess -1 mmol/L (-3-3) FiO2 40%+5 Laboratory Tests Test 06/25/20 15:03 06/25/20 17:30 06/26/20 05:30 06/26/20 08:15 White Blood Count 8.8 x10^3/uL (4.0-11.0) 9.5 x10^3/uL (4.0-11.0) Red Blood Count 2.95 x10^6/uL (3.50-5.40) 3.11 x10^6/uL (3.50-5.40) Hemoglobin 8.8 g/dL (12.0-15.5) 9.5 g/dL (12.0-15.5) Hematocrit 27.0 % (36.0-47.0) 28.1 % (36.0-47.0) Mean Corpuscular Volume 91 fL (79-100) 90 fL (79-100) Mean Corpuscular Hemoglobin 30 pg (25-35) 31 pg (25-35) Mean Corpuscular Hemoglobin Concent 33 g/dL (31-37) 34 g/dL (31-37) Red Cell Distribution Width 13.1 % (11.5-14.5) 12.8 % (11.5-14.5) Platelet Count 260 x10^3/uL (140-400) 286 x10^3/uL (140-400) Sodium Level 143 mmol/L (136-145) 136 mmol/L (136-145) Potassium Level 3.4 mmol/L (3.5-5.1) 4.0 mmol/L (3.5-5.1) Chloride Level 106 mmol/L (98-107) 102 mmol/L (98-107) Carbon Dioxide Level 25 mmol/L (21-32) 25 mmol/L (21-32) Anion Gap 12 (6-14) 9 (6-14) Blood Urea Nitrogen 16 mg/dL (7-20) 15 mg/dL (7-20) Creatinine 0.4 mg/dL (0.6-1.0) 0.5 mg/dL (0.6-1.0) Estimated GFR (Cockcroft-Gault) 164.5 127.2 BUN/Creatinine Ratio 40 (6-20) Glucose Level 87 mg/dL (70-99) 91 mg/dL (70-99) Calcium Level 7.6 mg/dL (8.5-10.1) 8.4 mg/dL (8.5-10.1) Magnesium Level 1.8 mg/dL (1.8-2.4) Total Bilirubin 0.4 mg/dL (0.2-1.0) Aspartate Amino Transf (AST/SGOT) 37 U/L (15-37) Alanine Aminotransferase (ALT/SGPT) 60 U/L (14-59) Alkaline Phosphatase 117 U/L (46-116) Total Protein 5.5 g/dL (6.4-8.2) Albumin 2.0 g/dL (3.4-5.0) Albumin/Globulin Ratio 0.6 (1.0-1.7) Glucose (Fingerstick) 79 mg/dL (70-99) Neutrophils (%) (Auto) 72 % (31-73) Lymphocytes (%) (Auto) 20 % (24-48) Monocytes (%) (Auto) 6 % (0-9) Eosinophils (%) (Auto) 3 % (0-3) Basophils (%) (Auto) 1 % (0-3) Neutrophils # (Auto) 6.8 x10^3/uL (1.8-7.7) Lymphocytes # (Auto) 1.9 x10^3/uL (1.0-4.8) Monocytes # (Auto) 0.5 x10^3/uL (0.0-1.1) Eosinophils # (Auto) 0.3 x10^3/uL (0.0-0.7) Basophils # (Auto) 0.0 x10^3/uL (0.0-0.2) O2 Saturation 95 % (92-99) Arterial Blood pH 7.48 (7.35-7.45) Arterial Blood pCO2 at Patient Temp 30 mmHg (35-46) Arterial Blood pO2 at Patient Temp 81 mmHg (75-108) Arterial Blood HCO3 22 mmol/L (21-28) Arterial Blood Base Excess -1 mmol/L (-3-3) FiO2 40%+5 Medications Active Scripts Medications Dose Route/Sig Max Daily Dose Days Date Category Acetaminophen-Diphenhyd 500-25 (Acetaminophen/Diphenhydramine) 1 Each Tablet 1 Each PO HS PRN 06/18/20 Reported Naproxen 500 Mg Tablet 1 Tab PO BID PRN 30 06/18/20 Reported Tramadol Hcl 50 Mg Tablet 50 Mg PO Q4HRS 06/18/20 Reported Levothyroxine Sodium 75 Mcg Tablet 1 Tab PO DAILY 06/18/20 Reported Adderall 20 Mg Tablet (Dextroamphetamine/Amphetamine) 20 Mg Tablet 1 Tab PO DAILY MDD 1 Tablet(s) 5 06/18/20 Reported Prozac (Fluoxetine Hcl) 20 Mg Capsule 1 Cap PO [id number] 06/18/20 Reported Comments CXR 06/26/20 no pneumothorax Impression . IMPRESSION: 1. Acute respiratory failure secondary to [id number] cardiopulmonary arrest/ anoxic encephalopathy 2. Jse-ui-nhacwuaw ventricular fibrillation and asystole leading to anoxic brain injury. 3. Anoxic encephalopathy. 4. COVID neg 5. Morbid obesity. 6. Leukocytosis--improved 7. Lactic acidosis secondary to [id number] cardiac arrest. 8. Abnormal x-ray revealing bibasilar atelectasis, infiltrates. 9. Pneumothorax secondary to CPR.resolved on cxr, no air leak-- D?/C chest tube today 10. Sternal sternal fracture secondary to CPR. 11. ? Pneumonia positive, gram-negative, gram-positive. Plan . PLAN: Continue current support with assist control ventilation, Fi02 40% PEEP 5 Clinically consistent with Anoxic encephalopathy Trach today, PEG planned for tomorrow PPN while TF on hold, hold lovenox as well Follow CXR/ABG-- No changes CXR no neg for pneumothorax Chest tube D/C today Follow ID recs for ABX on zosyn -- D/C tomorrow Follow neurology recs Follow Cardiology recs-- post cardiac cath 06/25/20-- cath was clean w/ normal filling pressures DVT/GI PPX D/W RN and RT D/W Family, they would like to give her 30 days to allow time for possible recovery Social work for D/C planning -- screen for LTACH Critical Care Time [id number] AM PT. is FULL CODE ANGELA MORENO MD Jun 26, 2020 12:07
[2020-06-26] MEDS ORDERED: SURGICEL FIBRILLAR 1X2 EACH. ONE ×2 (12:19→13:25)
[2020-06-26] MEDS ORDERED: BUPIVACAINE MPF 0.5% 30 ML VIAL. ONE (12:19)
--- NOTE | 2020-06-26 12:52 | NUR ---
pt off unit to surgery
[2020-06-26] MEDS ORDERED: DEXAMETHASONE SOD PHOS 4 MG/ML VIAL ONE (13:13)
[2020-06-26] MEDS ORDERED: ONDANSETRON PF 4 MG/2 ML VIAL. ONE (13:13)
[2020-06-26] MEDS: ENOXAPARIN 40 MG/0.4 ML SYRINGE. SQ SCH (13:31)
[2020-06-26] MEDS ORDERED: SEVOFLURANE 31 TO 60 MINUTES. IH ONE (13:37)
[2020-06-26] MEDS ORDERED: PROPOFOL 10 MG/ML (20ML) VIAL. IV ONE (13:38)
--- NOTE | 2020-06-26 14:11 | NUR ---
pt returned from surgery, reattached to vent, spo2 in the 80s, pt placed on 100% fio2, spo2 probe replaced, pt sat improved to 92%. anesthesia left, pt spo2 dropped to 84%, attempted to suction and reposition pt, spo2 did not increase. paged RT, RT adjusted cuff and spo2 increased to 95%
--- NOTE | 2020-06-26 14:24 | NUR ---
SS following up with discharge planning. SS reviewed pt chart and discussed with pt RN. Pt is currently on the vent at 40%. COVID19 negative. Pt on PPN and IV Zosyn. Pt had trach placed today. Pt getting peg tube placed tomorrow. SS phoned and faxed clinical to [facility], ; fax [phone]. SS currently awaiting acceptance decision and benefit information. SS discussed with pt's spouse. SS will continue to follow for discharge planning.
[2020-06-26 15:55] LABS: PROTHROMBIN TIME PATIENT 15.2 SEC (11.7-14.0)
--- NOTE | 2020-06-26 16:40 | PDOC4 ---
OPERATIVE NOTE Date: Date: Jun 26, 2020 Pre-Op Diagnosis: Respiratory failure Post-Op Diagnosis: same Procedure Performed: tracheostomy (specifically 8 Shiley XLT) Surgeon: Antonio Paul Anesthesia Type: GETA plus local Blood Loss: minimal Specimans Obtained: none Findings: obesity, normal anatomy Complications: none Operative Note: After obtaining informed consent, patient was taken to OR, induced under GETA and prepped in the usual fashion over anterior neck. Vertical incision was made with cautery. Trachea was identified. 1st tracheal ring was identified and 3 0 prolene placed and secured to left neck with steristrips. 2nd tracheal ring selected and opened with 15 blade. Tracheostomy was placed under direct vision. Patient was successfully oxygenated and ventilated. End tidal CO2 detected. Tracheostomy secured with 3 0 prolene and trach colllar. Surgicel placed in wound. Patient tolerated procedure well and sent to ICU in stable condition. All counts correct. MELY PAUL MD Jun 26, 2020 16:40
[2020-06-26] MEDS: ATORVASTATIN CALCIUM 20 MG TABLET PO SCH (20:33)
[2020-06-27] VITALS (24 sets, daily range): BP systolic 95–165; BP diastolic 54–83
[2020-06-27] MEDS: PIPERACILLIN/TAZOBACTAM 3.375 GM in IV NORMAL SALINE 50ML 50 ML IV SCH (05:31)
[2020-06-27] MEDS: LEVOTHYROXINE 75 MCG TABLET PO SCH (05:42)
[2020-06-27 06:34] LABS: CALCIUM 8.5 mg/dL (8.5-10.1); CREATININE 0.5 mg/dL (0.6-1.0); GFR 127.2
[2020-06-27] MEDS ORDERED: IV RINGERS,LACTATED 1000ML 1,000 ML IV SCH (07:00)
[2020-06-27] MEDS ORDERED: PROCHLORPERAZINE 10 MG/2 ML VIAL. IV PRN (07:00)
[2020-06-27 07:05] LABS: BASO # 0.1 x10^3/uL (0.0-0.2); BASO % 1 % (0-3); EOS # 0.1 x10^3/uL (0.0-0.7); EOS % 1 % (0-3); HEMATOCRIT 28.4 % (36.0-47.0); HEMOGLOBIN 9.1 g/dL (12.0-15.5); LYMPH # 1.5 x10^3/uL (1.0-4.8); LYMPH % 19 % (24-48); MEAN CORPUSCULAR HEMOGLOBIN 29 pg (25-35); MEAN CORPUSCULAR HGB CONC 32 g/dL (31-37); MEAN CORPUSCULAR VOLUME 91 fL (79-100); MONO # 0.4 x10^3/uL (0.0-1.1); MONO % 5 % (0-9); NEUT % 75 % (31-73); PLATELET COUNT 308 x10^3/uL (140-400); RED BLOOD COUNT 3.12 x10^6/uL (3.50-5.40); RED CELL DISTRIBUTION WIDTH 12.9 % (11.5-14.5); WHITE BLOOD COUNT 8.1 x10^3/uL (4.0-11.0)
--- NOTE | 2020-06-27 07:39 | PDOC ---
Infectious Disease Note Subjective: Subjective pt is intubated Opens eyes transiently Does not follow any commands Trach placement yesterday Awaiting PEG tube placement today No fevers Discussed with RN Vital Signs: Vital Signs Vital Signs Date Time Temp Pulse Resp B/P (MAP) Pulse Ox O2 Delivery O2 Flow Rate FiO2 06/27/20 06:00 53 18 119/69 (86) 97 Ventilator 06/27/20 04:00 98.1 98.1 Physical Exam: PHYSICAL EXAM GENERAL: Opens eyes transiently, does not follow any commands, not in distress. HEENT: Both pupils are round and reacting. No conjunctival lesion. NECK: Supple. Trach present LUNGS: Decreased breath sounds bilaterally. HEART: S1, S2, regular. No gallop or murmur. ABDOMEN: Soft, nontender. No organomegaly. EXTREMITIES: No edema or cyanosis. toe amputation of the Rt foot,healed scars SKIN: Unremarkable. NEUROLOGICAL: Opens eyes transiently does not follow any commands Medications: Inpatient Meds: Current Medications Medications (Trade) Dose Ordered Sig/Rosalio Start Time Stop Time Status Last Admin Dose Admin Albuterol/ Ipratropium (Duoneb) 3 ml RTQID 06/18/20 20:00 06/26/20 20:11 3 ML Amino Acids/ Glycerin/ Electrolytes 1,000 ml @ 80 mls/hr [id number] 06/25/20 17:30 06/26/20 20:19 80 MLS/HR Amiodarone HCl (Cordarone) 400 mg DAILY 06/20/20 09:00 06/26/20 10:23 400 MG Amiodarone HCl 150 mg/Dextrose 103 ml @ 618 mls/hr 1X ONCE 06/17/20 07:00 06/17/20 07:09 DC 06/17/20 07:00 618 MLS/HR Amiodarone HCl 450 mg/Dextrose 259 ml @ 33 mls/hr 1X ONCE 06/17/20 07:00 06/17/20 14:50 DC Aspirin (Aspirin Chewable) 81 mg 1X ONCE 06/19/20 15:30 06/19/20 15:37 DC 06/19/20 15:57 81 MG Atorvastatin Calcium (Lipitor) 20 mg QHS 06/19/20 21:00 06/25/20 20:32 20 MG Atropine Sulfate (ATROPINE 0.5mg SYRINGE) 0.5 mg PRN Q5MIN PRN 1/7/21 10:45 Bupivacaine HCl (Sensorcaine Mpf 0.5%) 30 ml STK-MED ONCE 06/26/20 12:19 06/26/20 12:19 DC Buspirone HCl (Buspar) 30 mg Q8H 06/17/20 12:00 06/17/20 12:39 DC 06/17/20 12:31 30 MG Carvedilol (Coreg) 3.125 mg BIDWMEALS 06/19/20 17:00 06/26/20 10:23 3.125 MG Cellulose (Surgicel Fibrillar 1x2) 1 each STK-MED ONCE 06/26/20 13:25 06/26/20 13:25 DC 06/26/20 13:22 1 EACH Dexamethasone Sodium Phosphate (Decadron) 4 mg STK-MED ONCE 06/26/20 13:13 06/26/20 13:14 DC Dexmedetomidine HCl 400 mcg/ Sodium Chloride 100 ml @ 0 mls/hr CONT PRN 06/21/20 10:45 06/25/20 04:43 15.7 MLS/HR Enoxaparin Sodium (Lovenox 40mg Syringe) 40 mg Q24H 06/18/20 21:00 06/24/20 20:46 40 MG Famotidine (Pepcid Vial) 20 mg BID 06/18/20 21:00 06/26/20 20:33 20 MG Fentanyl Citrate (Fentanyl 2ml Vial) 50 mcg PRN Q2HR PRN 06/23/20 16:45 06/24/20 20:54 50 MCG Furosemide (Lasix) 40 mg 1X ONCE 06/20/20 13:30 06/20/20 13:31 DC 06/20/20 14:38 40 MG Glycerin/ Hypromellose/ Polyethylene (Artificial Tears) 1 drop PRN Q15MIN PRN 06/17/20 12:00 06/17/20 12:39 DC Heparin Sodium (Porcine) (Heparin Sodium) 2,500 unit 1X ONCE 06/25/20 15:15 06/25/20 15:16 DC 06/25/20 15:09 2,500 UNIT Heparin Sodium/ Sodium Chloride (HEPARIN for ARTERIAL LINE FLUSH) 1,000 unit 1X ONCE 06/25/20 15:15 06/25/20 15:16 DC 06/25/20 15:09 1,000 UNIT Info (CONTRAST GIVEN -- Rx MONITORING) 1 each PRN DAILY PRN 06/17/20 08:15 06/19/20 08:14 DC Iohexol (Omnipaque 300 Mg/ml) 30 ml 1X ONCE 06/25/20 15:15 06/25/20 15:16 DC 06/25/20 15:09 30 ML Iohexol (Omnipaque 350 Mg/ml) 100 ml 1X ONCE 06/17/20 08:15 06/17/20 08:16 DC 06/17/20 08:17 100 ML Levothyroxine Sodium (Synthroid) 75 mcg DAILY06 06/18/20 21:00 06/26/20 05:46 75 MCG Lidocaine HCl (Lidocaine 1% 20ml Vial) 20 ml 1X ONCE 06/17/20 09:15 06/17/20 09:20 DC 06/17/20 09:15 20 ML Lidocaine HCl (Xylocaine-Mpf 1% 2ml Vial) 2 ml 1X ONCE 06/25/20 15:15 06/25/20 15:16 DC 06/25/20 15:09 2 ML Lidocaine HCl (Xylocaine-Mpf 1% 5ml Vial) 5 ml STK-MED ONCE 06/17/20 09:26 06/17/20 09:26 DC Magnesium Sulfate/ Dextrose 100 ml @ 100 mls/hr 1X ONCE 06/17/20 12:00 06/17/20 12:39 DC 06/17/20 12:22 100 MLS/HR Midazolam HCl 100 ml @ 0 mls/hr CONT PRN 06/25/20 11:45 06/26/20 20:22 10 MLS/HR Midazolam HCl (Versed) 5 mg Q1HR PRN 06/17/20 12:45 06/18/20 19:57 5 MG Nitroglycerin (Nitroglycerin) 200 mcg 1X ONCE 06/25/20 15:15 06/25/20 15:16 DC 06/25/20 15:09 200 MCG Ondansetron HCl (Zofran) 4 mg STK-MED ONCE 06/26/20 13:13 06/26/20 13:13 DC Pantoprazole Sodium (PROTONIX VIAL for IV PUSH) 40 mg DAILY 06/18/20 09:00 06/17/20 12:39 DC Piperacillin Sod/ Tazobactam Sod (Zosyn Per Pharmacy) 1 each PRN DAILY PRN 06/17/20 08:45 Piperacillin Sod/ Tazobactam Sod 3.375 gm/Sodium Chloride 50 ml @ 100 mls/hr Q6H 06/17/20 16:00 06/27/20 05:31 100 MLS/HR Piperacillin Sod/ Tazobactam Sod 4.5 gm/Sodium Chloride 100 ml @ 200 mls/hr 1X ONCE 06/17/20 12:15 06/17/20 12:44 Cancel Potassium Bicarbonate (Potassium Effervescent Tablet) 40 meq 1X ONCE 06/18/20 09:45 06/18/20 09:48 DC 06/18/20 10:00 40 MEQ Potassium Chloride/Water 100 ml @ 100 mls/hr Q1H 06/25/20 18:00 06/25/20 19:59 DC 06/25/20 18:46 100 MLS/HR Prochlorperazine Edisylate (Compazine) 5 mg PACU PRN PRN 06/27/20 07:00 06/28/20 06:59 Propofol (Diprivan) 200 mg STK-MED ONCE 06/26/20 13:38 06/26/20 13:38 DC Ringer's Solution 1,000 ml @ 30 mls/hr Q24H 06/27/20 07:00 06/27/20 18:59 Rocuronium [place] (Zemuron) 50 mg STK-MED ONCE 06/26/20 11:37 06/26/20 11:38 DC Sevoflurane (Ultane) 30 ml STK-MED ONCE 06/26/20 13:37 06/26/20 13:38 DC Sodium Chloride 500 ml @ 500 mls/hr 1X PRN PRN 06/21/20 10:45 Vecuronium [place] (Norcuron Bolus) 10 mg PRN Q1HR PRN 06/17/20 12:00 06/17/20 12:39 DC Verapamil HCl (Verapamil) 2.5 mg 1X ONCE 06/25/20 15:15 06/25/20 15:16 DC 06/25/20 15:09 2.5 MG Labs: Lab Laboratory Tests Test 06/26/20 08:15 06/26/20 12:37 06/26/20 13:38 06/27/20 06:00 O2 Saturation 95 % (92-99) Arterial Blood pH 7.48 (7.35-7.45) Arterial Blood pCO2 at Patient Temp 30 mmHg (35-46) Arterial Blood pO2 at Patient Temp 81 mmHg (75-108) Arterial Blood HCO3 22 mmol/L (21-28) Arterial Blood Base Excess -1 mmol/L (-3-3) FiO2 40%+5 Glucose (Fingerstick) 101 mg/dL (70-99) Prothrombin Time 15.2 SEC (11.7-14.0) Prothromb Time International Ratio 1.2 (0.8-1.1) White Blood Count 8.1 x10^3/uL (4.0-11.0) Red Blood Count 3.12 x10^6/uL (3.50-5.40) Hemoglobin 9.1 g/dL (12.0-15.5) Hematocrit 28.4 % (36.0-47.0) Mean Corpuscular Volume 91 fL (79-100) Mean Corpuscular Hemoglobin 29 pg (25-35) Mean Corpuscular Hemoglobin Concent 32 g/dL (31-37) Red Cell Distribution Width 12.9 % (11.5-14.5) Platelet Count 308 x10^3/uL (140-400) Neutrophils (%) (Auto) 75 % (31-73) Lymphocytes (%) (Auto) 19 % (24-48) Monocytes (%) (Auto) 5 % (0-9) Eosinophils (%) (Auto) 1 % (0-3) Basophils (%) (Auto) 1 % (0-3) Neutrophils # (Auto) 6.0 x10^3/uL (1.8-7.7) Lymphocytes # (Auto) 1.5 x10^3/uL (1.0-4.8) Monocytes # (Auto) 0.4 x10^3/uL (0.0-1.1) Eosinophils # (Auto) 0.1 x10^3/uL (0.0-0.7) Basophils # (Auto) 0.1 x10^3/uL (0.0-0.2) Sodium Level 136 mmol/L (136-145) Potassium Level 4.0 mmol/L (3.5-5.1) Chloride Level 103 mmol/L (98-107) Carbon Dioxide Level 26 mmol/L (21-32) Anion Gap 7 (6-14) Blood Urea Nitrogen 14 mg/dL (7-20) Creatinine 0.5 mg/dL (0.6-1.0) Estimated GFR (Cockcroft-Gault) 127.2 Glucose Level 98 mg/dL (70-99) Calcium Level 8.5 mg/dL (8.5-10.1) Objective: Assessment: 1. Cardiopulmonary arrest at home. s/p cardiac cath , normal coronaries 2. Leukocytosis, likely reactive. resolved 3. Lactic acidosis from #1. 4. Respiratory failure. suspected aspiration; status post trach placement 5. Anoxic Encephalopathy 6. Hypertension. 7. Pneumothorax.s/p CTS, 8. Rib fracture and sternal fracture. 9. Anemia Plan: Plan of Care Continue Zosyn , will de-escalate soon covid neg cultures neg cont supportive care Awaiting peg tube placement Prognosis poor Discussed with and son at bedside D/W SAÚL MAYES MD Jun 27, 2020 07:39
[2020-06-27] MEDS: ASPIRIN CHEWABLE 81 MG TABLET. PO SCH (08:00)
[2020-06-27] MEDS: CARVEDILOL 3.125 MG TABLET. PO SCH ×2 (08:00→17:00)
[2020-06-27] MEDS: IPRATRPIUM/ALBUTEROL 0.5/2.5MG 3 ML NEBU. NEB SCH ×4 (08:00→20:00)
--- NOTE | 2020-06-27 08:28 | PDOC ---
SURGICAL PROGRESS NOTE DATE: 06/27/20 TIME: 08:27 Subjective no issues with trach d/w nursing family present Vital Signs Vital Signs Date Time Temp Pulse Resp B/P (MAP) Pulse Ox O2 Delivery O2 Flow Rate FiO2 06/27/20 06:00 53 18 119/69 (86) 97 Ventilator 06/27/20 04:00 98.1 98.1 I&O Intake and Output 06/27/20 07:00 Intake Total 2443 ml Output Total 3425 ml Balance -982 ml IV Total 2193 ml Tube Feeding 250 ml Output Urine Total 3425 ml General: No acute distress HEENT: Other (trach without bleeding) Labs Laboratory Tests Test 06/25/20 15:03 06/25/20 17:30 06/26/20 05:30 06/26/20 08:15 White Blood Count 8.8 x10^3/uL (4.0-11.0) 9.5 x10^3/uL (4.0-11.0) Red Blood Count 2.95 x10^6/uL (3.50-5.40) 3.11 x10^6/uL (3.50-5.40) Hemoglobin 8.8 g/dL (12.0-15.5) 9.5 g/dL (12.0-15.5) Hematocrit 27.0 % (36.0-47.0) 28.1 % (36.0-47.0) Mean Corpuscular Volume 91 fL (79-100) 90 fL (79-100) Mean Corpuscular Hemoglobin 30 pg (25-35) 31 pg (25-35) Mean Corpuscular Hemoglobin Concent 33 g/dL (31-37) 34 g/dL (31-37) Red Cell Distribution Width 13.1 % (11.5-14.5) 12.8 % (11.5-14.5) Platelet Count 260 x10^3/uL (140-400) 286 x10^3/uL (140-400) Sodium Level 143 mmol/L (136-145) 136 mmol/L (136-145) Potassium Level 3.4 mmol/L (3.5-5.1) 4.0 mmol/L (3.5-5.1) Chloride Level 106 mmol/L (98-107) 102 mmol/L (98-107) Carbon Dioxide Level 25 mmol/L (21-32) 25 mmol/L (21-32) Anion Gap 12 (6-14) 9 (6-14) Blood Urea Nitrogen 16 mg/dL (7-20) 15 mg/dL (7-20) Creatinine 0.4 mg/dL (0.6-1.0) 0.5 mg/dL (0.6-1.0) Estimated GFR (Cockcroft-Gault) 164.5 127.2 BUN/Creatinine Ratio 40 (6-20) Glucose Level 87 mg/dL (70-99) 91 mg/dL (70-99) Calcium Level 7.6 mg/dL (8.5-10.1) 8.4 mg/dL (8.5-10.1) Magnesium Level 1.8 mg/dL (1.8-2.4) Total Bilirubin 0.4 mg/dL (0.2-1.0) Aspartate Amino Transf (AST/SGOT) 37 U/L (15-37) Alanine Aminotransferase (ALT/SGPT) 60 U/L (14-59) Alkaline Phosphatase 117 U/L (46-116) Total Protein 5.5 g/dL (6.4-8.2) Albumin 2.0 g/dL (3.4-5.0) Albumin/Globulin Ratio 0.6 (1.0-1.7) Glucose (Fingerstick) 79 mg/dL (70-99) Neutrophils (%) (Auto) 72 % (31-73) Lymphocytes (%) (Auto) 20 % (24-48) Monocytes (%) (Auto) 6 % (0-9) Eosinophils (%) (Auto) 3 % (0-3) Basophils (%) (Auto) 1 % (0-3) Neutrophils # (Auto) 6.8 x10^3/uL (1.8-7.7) Lymphocytes # (Auto) 1.9 x10^3/uL (1.0-4.8) Monocytes # (Auto) 0.5 x10^3/uL (0.0-1.1) Eosinophils # (Auto) 0.3 x10^3/uL (0.0-0.7) Basophils # (Auto) 0.0 x10^3/uL (0.0-0.2) O2 Saturation 95 % (92-99) Arterial Blood pH 7.48 (7.35-7.45) Arterial Blood pCO2 at Patient Temp 30 mmHg (35-46) Arterial Blood pO2 at Patient Temp 81 mmHg (75-108) Arterial Blood HCO3 22 mmol/L (21-28) Arterial Blood Base Excess -1 mmol/L (-3-3) FiO2 40%+5 Test 06/26/20 12:37 06/26/20 13:38 06/27/20 06:00 Glucose (Fingerstick) 101 mg/dL (70-99) Prothrombin Time 15.2 SEC (11.7-14.0) Prothromb Time International Ratio 1.2 (0.8-1.1) White Blood Count 8.1 x10^3/uL (4.0-11.0) Red Blood Count 3.12 x10^6/uL (3.50-5.40) Hemoglobin 9.1 g/dL (12.0-15.5) Hematocrit 28.4 % (36.0-47.0) Mean Corpuscular Volume 91 fL (79-100) Mean Corpuscular Hemoglobin 29 pg (25-35) Mean Corpuscular Hemoglobin Concent 32 g/dL (31-37) Red Cell Distribution Width 12.9 % (11.5-14.5) Platelet Count 308 x10^3/uL (140-400) Neutrophils (%) (Auto) 75 % (31-73) Lymphocytes (%) (Auto) 19 % (24-48) Monocytes (%) (Auto) 5 % (0-9) Eosinophils (%) (Auto) 1 % (0-3) Basophils (%) (Auto) 1 % (0-3) Neutrophils # (Auto) 6.0 x10^3/uL (1.8-7.7) Lymphocytes # (Auto) 1.5 x10^3/uL (1.0-4.8) Monocytes # (Auto) 0.4 x10^3/uL (0.0-1.1) Eosinophils # (Auto) 0.1 x10^3/uL (0.0-0.7) Basophils # (Auto) 0.1 x10^3/uL (0.0-0.2) Sodium Level 136 mmol/L (136-145) Potassium Level 4.0 mmol/L (3.5-5.1) Chloride Level 103 mmol/L (98-107) Carbon Dioxide Level 26 mmol/L (21-32) Anion Gap 7 (6-14) Blood Urea Nitrogen 14 mg/dL (7-20) Creatinine 0.5 mg/dL (0.6-1.0) Estimated GFR (Cockcroft-Gault) 127.2 Glucose Level 98 mg/dL (70-99) Calcium Level 8.5 mg/dL (8.5-10.1) Laboratory Tests Test 06/26/20 12:37 06/26/20 13:38 06/27/20 06:00 Glucose (Fingerstick) 101 mg/dL (70-99) Prothrombin Time 15.2 SEC (11.7-14.0) Prothromb Time International Ratio 1.2 (0.8-1.1) White Blood Count 8.1 x10^3/uL (4.0-11.0) Red Blood Count 3.12 x10^6/uL (3.50-5.40) Hemoglobin 9.1 g/dL (12.0-15.5) Hematocrit 28.4 % (36.0-47.0) Mean Corpuscular Volume 91 fL (79-100) Mean Corpuscular Hemoglobin 29 pg (25-35) Mean Corpuscular Hemoglobin Concent 32 g/dL (31-37) Red Cell Distribution Width 12.9 % (11.5-14.5) Platelet Count 308 x10^3/uL (140-400) Neutrophils (%) (Auto) 75 % (31-73) Lymphocytes (%) (Auto) 19 % (24-48) Monocytes (%) (Auto) 5 % (0-9) Eosinophils (%) (Auto) 1 % (0-3) Basophils (%) (Auto) 1 % (0-3) Neutrophils # (Auto) 6.0 x10^3/uL (1.8-7.7) Lymphocytes # (Auto) 1.5 x10^3/uL (1.0-4.8) Monocytes # (Auto) 0.4 x10^3/uL (0.0-1.1) Eosinophils # (Auto) 0.1 x10^3/uL (0.0-0.7) Basophils # (Auto) 0.1 x10^3/uL (0.0-0.2) Sodium Level 136 mmol/L (136-145) Potassium Level 4.0 mmol/L (3.5-5.1) Chloride Level 103 mmol/L (98-107) Carbon Dioxide Level 26 mmol/L (21-32) Anion Gap 7 (6-14) Blood Urea Nitrogen 14 mg/dL (7-20) Creatinine 0.5 mg/dL (0.6-1.0) Estimated GFR (Cockcroft-Gault) 127.2 Glucose Level 98 mg/dL (70-99) Calcium Level 8.5 mg/dL (8.5-10.1) Problem List Problems Medical Problems: (1) Cardiac arrest Status: Acute (2) Fracture of ribs, multiple Status: Acute (3) Hyperglycemia Status: Acute (4) Pneumonia Status: Acute (5) Pneumothorax, right Status: Acute (6) Sternal fracture Status: Acute (7) VF (ventricular fibrillation) Status: Acute Assessment/Plan trach intact will sign off, please call with questions Justicifation of Admission Dx: Justifications for Admission: Justification of Admission Dx: N/A JONG HUERTAS [employer] Jun 27, 2020 08:28
[2020-06-27] MEDS: AMINO AC 3%/ELECTROLYTE/GLYCER 1,000 ML IV SCH ×2 (08:41→20:50)
[2020-06-27] MEDS: MIDAZOLAM 100mg/100ml NS BAG 100 ML IV PRN ×2 (08:52→16:45)
[2020-06-27] MEDS: AMIODARONE HCL 200 MG TABLET. PO SCH (09:00)
[2020-06-27] MEDS: FAMOTIDINE 20 MG/2 ML VIAL IVP SCH ×2 (09:00→20:50)
[2020-06-27 09:17] LABS: BASE EXCESS ABG -1 mmol/L (-3-3); HCO3 ABG 22 mmol/L (21-28); PCO2 ABG 30 mmHg (35-46); PO2 ABG 75 mmHg (75-108); SAT O2 ABG 95 % (92-99)
[2020-06-27 09:20] LABS: FIO2 ABG 40
[2020-06-27] MEDS ORDERED: PROPOFOL 10 MG/ML (20ML) VIAL. IV ONE (09:53)
[2020-06-27] MEDS ORDERED: LIDOCAINE 2% PF 5 ML VIAL. ONE (09:54)
--- NOTE | 2020-06-27 10:31 | PDOC4 ---
PROCEDURE Procedure EGD/PEG Indication: OP dysphagia post-arrest Meds: per anesthesia Findings: E--normal G--normal D--normal bulb. --20F g-tube placed uneventfully. Briefly re-scoped, confirming good position. Sue. well. IMP: Successful PEG REC: Water/meds OK per tube today. If no issues, can start feeding in AM. MARGOTH SAENZ MD Jun 27, 2020 10:31
--- NOTE | 2020-06-27 10:31 | NUR ---
SS following up with discharge planning. SS reviewed pt chart and discussed with pt RN. Pt is currently on the vent at 40%. COVID19 negative. Pt on PPN and IV Zosyn. Pt had heart cath on 06/25/20, trach placement on , and will have PEG placement today. Pt accepted at [facility], ; fax [phone]. Pt does have benefits for LTACH per [facility] SS needing documentation from physicians for insurance stating that the trach is stable and stating that the PEG is stable and useable. Pt's RN and physicians notified. SS discussed with pt's family. SS will continue to follow for discharge planning.
--- NOTE | 2020-06-27 10:55 | PDOC ---
PROGRESS NOTES Date of Service DATE: 06/27/20 TIME: 10:54 Assessment Problems Medical Problems: (1) Cardiac arrest Status: Acute (2) Fracture of ribs, multiple Status: Acute (3) Hyperglycemia Status: Acute (4) Pneumonia Status: Acute (5) Pneumothorax, right Status: Acute (6) Sternal fracture Status: Acute (7) VF (ventricular fibrillation) Status: Acute Anoxic encephalopathy, ventricular fibrillation and asystole, improving, but not making much more progress Negative for Covid Status-post trach Plan PEG today Supportive care Holding on additional neurological tests Family wants to try 1 month at [facility] Discussed with family Subjective None Objective Vital Signs Date Time Temp Pulse Resp B/P (MAP) Pulse Ox O2 Delivery O2 Flow Rate FiO2 06/27/20 10:10 53 20 98 Ventilator 15.0 06/27/20 10:00 101/66 (78) 06/27/20 08:00 98.0 98.0 Intake and Output 06/27/20 07:00 Intake Total 2443 ml Output Total 3425 ml Balance -982 ml IV Total 2193 ml Tube Feeding 250 ml Output Urine Total 3425 ml PHYSICAL EXAM On ventilator PERRL. EOMI. CN: no focal findings. Muscle tone: normal. Muscle strength: Moving arms and legs DTR: 1+ Plantar reflex: Flexor Gait: not examined. Sensory exam: Not cooperative Cerebellar: Not cooperative Review of Relevant I have reviewed the following items afua (where applicable) has been applied. Labs Laboratory Tests Test 06/25/20 15:03 06/25/20 17:30 06/26/20 05:30 06/26/20 08:15 White Blood Count 8.8 x10^3/uL (4.0-11.0) 9.5 x10^3/uL (4.0-11.0) Red Blood Count 2.95 x10^6/uL (3.50-5.40) 3.11 x10^6/uL (3.50-5.40) Hemoglobin 8.8 g/dL (12.0-15.5) 9.5 g/dL (12.0-15.5) Hematocrit 27.0 % (36.0-47.0) 28.1 % (36.0-47.0) Mean Corpuscular Volume 91 fL (79-100) 90 fL (79-100) Mean Corpuscular Hemoglobin 30 pg (25-35) 31 pg (25-35) Mean Corpuscular Hemoglobin Concent 33 g/dL (31-37) 34 g/dL (31-37) Red Cell Distribution Width 13.1 % (11.5-14.5) 12.8 % (11.5-14.5) Platelet Count 260 x10^3/uL (140-400) 286 x10^3/uL (140-400) Sodium Level 143 mmol/L (136-145) 136 mmol/L (136-145) Potassium Level 3.4 mmol/L (3.5-5.1) 4.0 mmol/L (3.5-5.1) Chloride Level 106 mmol/L (98-107) 102 mmol/L (98-107) Carbon Dioxide Level 25 mmol/L (21-32) 25 mmol/L (21-32) Anion Gap 12 (6-14) 9 (6-14) Blood Urea Nitrogen 16 mg/dL (7-20) 15 mg/dL (7-20) Creatinine 0.4 mg/dL (0.6-1.0) 0.5 mg/dL (0.6-1.0) Estimated GFR (Cockcroft-Gault) 164.5 127.2 BUN/Creatinine Ratio 40 (6-20) Glucose Level 87 mg/dL (70-99) 91 mg/dL (70-99) Calcium Level 7.6 mg/dL (8.5-10.1) 8.4 mg/dL (8.5-10.1) Magnesium Level 1.8 mg/dL (1.8-2.4) Total Bilirubin 0.4 mg/dL (0.2-1.0) Aspartate Amino Transf (AST/SGOT) 37 U/L (15-37) Alanine Aminotransferase (ALT/SGPT) 60 U/L (14-59) Alkaline Phosphatase 117 U/L (46-116) Total Protein 5.5 g/dL (6.4-8.2) Albumin 2.0 g/dL (3.4-5.0) Albumin/Globulin Ratio 0.6 (1.0-1.7) Glucose (Fingerstick) 79 mg/dL (70-99) Neutrophils (%) (Auto) 72 % (31-73) Lymphocytes (%) (Auto) 20 % (24-48) Monocytes (%) (Auto) 6 % (0-9) Eosinophils (%) (Auto) 3 % (0-3) Basophils (%) (Auto) 1 % (0-3) Neutrophils # (Auto) 6.8 x10^3/uL (1.8-7.7) Lymphocytes # (Auto) 1.9 x10^3/uL (1.0-4.8) Monocytes # (Auto) 0.5 x10^3/uL (0.0-1.1) Eosinophils # (Auto) 0.3 x10^3/uL (0.0-0.7) Basophils # (Auto) 0.0 x10^3/uL (0.0-0.2) O2 Saturation 95 % (92-99) Arterial Blood pH 7.48 (7.35-7.45) Arterial Blood pCO2 at Patient Temp 30 mmHg (35-46) Arterial Blood pO2 at Patient Temp 81 mmHg (75-108) Arterial Blood HCO3 22 mmol/L (21-28) Arterial Blood Base Excess -1 mmol/L (-3-3) FiO2 40%+5 Test 06/26/20 12:37 06/26/20 13:38 06/27/20 06:00 06/27/20 09:05 Glucose (Fingerstick) 101 mg/dL (70-99) Prothrombin Time 15.2 SEC (11.7-14.0) Prothromb Time International Ratio 1.2 (0.8-1.1) White Blood Count 8.1 x10^3/uL (4.0-11.0) Red Blood Count 3.12 x10^6/uL (3.50-5.40) Hemoglobin 9.1 g/dL (12.0-15.5) Hematocrit 28.4 % (36.0-47.0) Mean Corpuscular Volume 91 fL (79-100) Mean Corpuscular Hemoglobin 29 pg (25-35) Mean Corpuscular Hemoglobin Concent 32 g/dL (31-37) Red Cell Distribution Width 12.9 % (11.5-14.5) Platelet Count 308 x10^3/uL (140-400) Neutrophils (%) (Auto) 75 % (31-73) Lymphocytes (%) (Auto) 19 % (24-48) Monocytes (%) (Auto) 5 % (0-9) Eosinophils (%) (Auto) 1 % (0-3) Basophils (%) (Auto) 1 % (0-3) Neutrophils # (Auto) 6.0 x10^3/uL (1.8-7.7) Lymphocytes # (Auto) 1.5 x10^3/uL (1.0-4.8) Monocytes # (Auto) 0.4 x10^3/uL (0.0-1.1) Eosinophils # (Auto) 0.1 x10^3/uL (0.0-0.7) Basophils # (Auto) 0.1 x10^3/uL (0.0-0.2) Sodium Level 136 mmol/L (136-145) Potassium Level 4.0 mmol/L (3.5-5.1) Chloride Level 103 mmol/L (98-107) Carbon Dioxide Level 26 mmol/L (21-32) Anion Gap 7 (6-14) Blood Urea Nitrogen 14 mg/dL (7-20) Creatinine 0.5 mg/dL (0.6-1.0) Estimated GFR (Cockcroft-Gault) 127.2 Glucose Level 98 mg/dL (70-99) Calcium Level 8.5 mg/dL (8.5-10.1) O2 Saturation 95 % (92-99) Arterial Blood pH 7.48 (7.35-7.45) Arterial Blood pCO2 at Patient Temp 30 mmHg (35-46) Arterial Blood pO2 at Patient Temp 75 mmHg (75-108) Arterial Blood HCO3 22 mmol/L (21-28) Arterial Blood Base Excess -1 mmol/L (-3-3) FiO2 40 Laboratory Tests Test 06/26/20 12:37 06/26/20 13:38 06/27/20 06:00 06/27/20 09:05 Glucose (Fingerstick) 101 mg/dL (70-99) Prothrombin Time 15.2 SEC (11.7-14.0) Prothromb Time International Ratio 1.2 (0.8-1.1) White Blood Count 8.1 x10^3/uL (4.0-11.0) Red Blood Count 3.12 x10^6/uL (3.50-5.40) Hemoglobin 9.1 g/dL (12.0-15.5) Hematocrit 28.4 % (36.0-47.0) Mean Corpuscular Volume 91 fL (79-100) Mean Corpuscular Hemoglobin 29 pg (25-35) Mean Corpuscular Hemoglobin Concent 32 g/dL (31-37) Red Cell Distribution Width 12.9 % (11.5-14.5) Platelet Count 308 x10^3/uL (140-400) Neutrophils (%) (Auto) 75 % (31-73) Lymphocytes (%) (Auto) 19 % (24-48) Monocytes (%) (Auto) 5 % (0-9) Eosinophils (%) (Auto) 1 % (0-3) Basophils (%) (Auto) 1 % (0-3) Neutrophils # (Auto) 6.0 x10^3/uL (1.8-7.7) Lymphocytes # (Auto) 1.5 x10^3/uL (1.0-4.8) Monocytes # (Auto) 0.4 x10^3/uL (0.0-1.1) Eosinophils # (Auto) 0.1 x10^3/uL (0.0-0.7) Basophils # (Auto) 0.1 x10^3/uL (0.0-0.2) Sodium Level 136 mmol/L (136-145) Potassium Level 4.0 mmol/L (3.5-5.1) Chloride Level 103 mmol/L (98-107) Carbon Dioxide Level 26 mmol/L (21-32) Anion Gap 7 (6-14) Blood Urea Nitrogen 14 mg/dL (7-20) Creatinine 0.5 mg/dL (0.6-1.0) Estimated GFR (Cockcroft-Gault) 127.2 Glucose Level 98 mg/dL (70-99) Calcium Level 8.5 mg/dL (8.5-10.1) O2 Saturation 95 % (92-99) Arterial Blood pH 7.48 (7.35-7.45) Arterial Blood pCO2 at Patient Temp 30 mmHg (35-46) Arterial Blood pO2 at Patient Temp 75 mmHg (75-108) Arterial Blood HCO3 22 mmol/L (21-28) Arterial Blood Base Excess -1 mmol/L (-3-3) FiO2 40 Microbiology 1/3/21 Blood Culture - Final, Complete NO GROWTH AFTER 5 DAYS Medications Current Medications Amiodarone HCl 150 mg/Dextrose 103 ml @ 618 mls/hr 1X ONCE IV Last administered on 06/17/20at 07:00; Start 06/17/20 at 07:00; Stop 06/17/20 at 07:09; Status DC Amiodarone HCl 450 mg/Dextrose 259 ml @ 33 mls/hr 1X ONCE IV ; Start 06/17/20 at 07:00; Stop 06/17/20 at 14:50; Status DC Sodium Chloride 1,000 ml @ 1,000 mls/hr 1X ONCE IV Last administered on 06/17/20at 08:11; Start 06/17/20 at 07:15; Stop 06/17/20 at 08:14; Status DC Midazolam HCl 100 ml @ 0 mls/hr 1X ONCE IV ; Start 06/17/20 at 07:15; Stop 06/17/20 at 07:16; Status DC Midazolam HCl (Versed) 5 mg STK-MED ONCE .ROUTE ; Start 06/17/20 at 07:17; Stop 06/17/20 at 07:17; Status DC Iohexol (Omnipaque 300 Mg/ml) 75 ml 1X ONCE IV Last administered on 06/17/20at 08:17; Start 06/17/20 at 08:15; Stop 06/17/20 at 08:16; Status DC Iohexol (Omnipaque 350 Mg/ml) 100 ml 1X ONCE IV Last administered on 06/17/20at 08:17; Start 06/17/20 at 08:15; Stop 06/17/20 at 08:16; Status DC Info (CONTRAST GIVEN -- Rx MONITORING) 1 each PRN DAILY PRN MC SEE COMMENTS; Start 06/17/20 at 08:15; Stop 06/19/20 at 08:14; Status DC Sodium Chloride 1,000 ml @ 1,000 mls/hr 1X ONCE IV Last administered on 06/17/20at 08:25; Start 06/17/20 at 08:15; Stop 06/17/20 at 09:14; Status DC Potassium Chloride/Water 100 ml @ 50 mls/hr 1X ONCE IV Last administered on 06/17/20at 10:16; Start 06/17/20 at 09:00; Stop 06/17/20 at 10:59; Status DC Piperacillin Sod/ Tazobactam Sod (Zosyn Per Pharmacy) 1 each PRN DAILY PRN MC SEE COMMENTS; Start 06/17/20 at 08:45 Piperacillin Sod/ Tazobactam Sod 4.5 gm/Sodium Chloride 100 ml @ 200 mls/hr 1X ONCE IV Last administered on 06/17/20at 10:15; Start 06/17/20 at 08:45; Stop 06/17/20 at 09:14; Status DC Sodium Chloride 1,000 ml @ 125 mls/hr Q8H IV Last administered on 06/17/20at 23:39; Start 06/17/20 at 09:00; Stop 06/18/20 at 08:59; Status DC Propofol (Diprivan) 200 mg 1X ONCE IV Last administered on 06/17/20at 09:00; Start 06/17/20 at 09:00; Stop 06/17/20 at 09:01; Status DC Propofol 100 ml @ As Directed STK-MED ONCE IV ; Start 06/17/20 at 09:05; Stop 06/17/20 at 09:05; Status DC Lidocaine HCl (Lidocaine 1% 20ml Vial) 20 ml 1X ONCE INJ Last administered on 06/17/20at 09:15; Start 06/17/20 at 09:15; Stop 06/17/20 at 09:20; Status DC Lidocaine HCl (Xylocaine-Mpf 1% 5ml Vial) 5 ml STK-MED ONCE .ROUTE ; Start 06/17/20 at 09:26; Stop 06/17/20 at 09:26; Status DC Sodium Chloride 1,000 ml @ 1,000 mls/hr 1X ONCE IV Last administered on 06/17/20at 10:15; Start 06/17/20 at 10:15; Stop 06/17/20 at 11:14; Status DC Propofol 100 ml @ 3.819 mls/ hr CONT PRN IV PER PROTOCOL Last administered on 06/25/20at 06:12; Start 06/17/20 at 10:45 Fentanyl Citrate (Fentanyl 2ml Vial) 100 mcg 1X ONCE IV ; Start 06/17/20 at 12:00; Stop 06/17/20 at 12:39; Status DC Midazolam HCl (Versed) 2 mg 1X ONCE IV ; Start 06/17/20 at 12:00; Stop 06/17/20 at 12:39; Status DC Magnesium Sulfate/ Dextrose 100 ml @ 100 mls/hr 1X ONCE IV Last administered on 06/17/20at 12:22; Start 06/17/20 at 12:00; Stop 06/17/20 at 12:39; Status DC Buspirone HCl (Buspar) 30 mg Q8H NG Last administered on 06/17/20at 12:31; Start 06/17/20 at 12:00; Stop 06/17/20 at 12:39; Status DC Glycerin/ Hypromellose/ Polyethylene (Artificial Tears) 1 drop Q6HRS OU ; Start 06/17/20 at 12:00; Stop 06/17/20 at 12:39; Status DC Glycerin/ Hypromellose/ Polyethylene (Artificial Tears) 1 drop PRN Q15MIN PRN OU DRY EYE; Start 06/17/20 at 12:00; Stop 06/17/20 at 12:39; Status DC Heparin Sodium (Porcine) (Heparin Sodium) 5,000 unit BID SQ ; Start 06/17/20 at 21:00; Stop 06/17/20 at 12:39; Status DC Pantoprazole Sodium (PROTONIX VIAL for IV PUSH) 40 mg DAILY IVP ; Start 06/18/20 at 09:00; Stop 06/17/20 at 12:39; Status DC Fentanyl Citrate 30 ml @ 0 mls/hr CONT PRN IV PER PROTOCOL.; Start 06/17/20 at 12:00; Stop 06/17/20 at 12:39; Status DC Propofol 100 ml @ 0 mls/hr CONT PRN IV PER PROTOCOL.; Start 06/17/20 at 12:00; Stop 06/17/20 at 12:39; Status DC Midazolam HCl 100 ml @ 0 mls/hr CONT PRN IV PER PROTOCOL; Start 06/17/20 at 12:00; Stop 06/17/20 at 12:39; Status DC Vecuronium [place] (Norcuron Bolus) 10 mg PRN Q1HR PRN IV SHIVERING; Start 06/17/20 at 12:00; Stop 06/17/20 at 12:39; Status DC Piperacillin Sod/ Tazobactam Sod 4.5 gm/Sodium Chloride 100 ml @ 200 mls/hr 1X ONCE IV ; Start 06/17/20 at 12:15; Stop 06/17/20 at 12:44; Status Cancel Midazolam HCl (Versed) 5 mg Q1HR PRN IV SEDATION Last administered on 06/18/20 19:57; Start 06/17/20 at 12:45 Fentanyl Citrate (Fentanyl 2ml Vial) 100 mcg Q1HR IVP Last administered on 06/17/20at 18:55; Start 06/17/20 at 13:00; Stop 06/17/20 at 23:41; Status DC Piperacillin Sod/ Tazobactam Sod 3.375 gm/Sodium Chloride 50 ml @ 100 mls/hr Q6H IV Last administered on 06/27/20 05:31; Start 06/17/20 at 16:00 Potassium Bicarbonate (Potassium Effervescent Tablet) 40 meq 1X ONCE NG Last administered on 06/18/20at 10:00; Start 06/18/20 at 09:45; Stop 06/18/20 at 09:48; Status DC Albuterol/ Ipratropium (Duoneb) 3 ml RTQID NEB Last administered on 06/26/20at 20:11; Start 06/18/20 at 20:00 Famotidine (Pepcid Vial) 20 mg BID IVP Last administered on 06/26/20at 20:33; Start 06/18/20 at 21:00 Enoxaparin Sodium (Lovenox 40mg Syringe) 40 mg Q24H SQ Last administered on 06/24/20at 20:46; Start 06/18/20 at 21:00 Levothyroxine Sodium (Synthroid) 75 mcg DAILY06 PO Last administered on 06/26/20at 05:46; Start 06/18/20 at 21:00 Fentanyl Citrate 30 ml @ 0 mls/hr CONT PRN IV SEE PROTOCOL Last administered on 06/27/20at 02:36; Start 06/18/20 at 20:15 Carvedilol (Coreg) 3.125 mg BIDWMEALS PO Last administered on 06/26/20at 10:23; Start 06/19/20 at 17:00 Atorvastatin Calcium (Lipitor) 20 mg QHS PO Last administered on 06/25/20at 20:32; Start 06/19/20 at 21:00 Aspirin (Aspirin Chewable) 81 mg DAILYWBKFT PO Last administered on 06/26/20at 10:23; Start 06/20/20 at 08:00 Aspirin (Aspirin Chewable) 81 mg 1X ONCE PO Last administered on 06/19/20at 15:57; Start 06/19/20 at 15:30; Stop 06/19/20 at 15:37; Status DC Potassium Chloride/Water 100 ml @ 100 mls/hr 1X ONCE IV Last administered on 06/19/20at 15:57; Start 06/19/20 at 15:30; Stop 06/19/20 at 16:29; Status DC Amiodarone HCl (Cordarone) 400 mg DAILY PO Last administered on 06/26/20at 10:23; Start 06/20/20 at 09:00 Furosemide (Lasix) 40 mg 1X ONCE IVP Last administered on 06/20/20at 14:38; Start 06/20/20 at 13:30; Stop 06/20/20 at 13:31; Status DC Potassium Chloride/Water 100 ml @ 100 mls/hr 1X ONCE IV Last administered on 06/20/20at 14:39; Start 06/20/20 at 13:30; Stop 06/20/20 at 14:29; Status DC Dexmedetomidine HCl 400 mcg/ Sodium Chloride 100 ml @ 0 mls/hr CONT PRN IV PER PROTOCOL Last administered on 06/25/20at 04:43; Start 06/21/20 at 10:45 Sodium Chloride 500 ml @ 500 mls/hr 1X PRN PRN IV SEE COMMENTS; Start 06/21/20 at 10:45 Atropine Sulfate (ATROPINE 0.5mg SYRINGE) 0.5 mg PRN Q5MIN PRN IV SEE COMMENTS; Start 06/21/20 at 10:45 Fentanyl Citrate (Fentanyl 2ml Vial) 50 mcg PRN Q2HR PRN IVP PAIN Last administered on 06/24/20at 20:54; Start 06/23/20 at 16:45 Midazolam HCl 100 ml @ 0 mls/hr CONT PRN IV SEE PROTOCOL Last administered on 06/27/20at 08:52; Start 06/25/20 at 11:45 Lidocaine HCl (Xylocaine-Mpf 1% 2ml Vial) 2 ml STK-MED ONCE .ROUTE ; Start 06/25/20 at 14:21; Stop 06/25/20 at 14:21; Status DC Iohexol (Omnipaque 300 Mg/ml) 100 ml STK-MED ONCE .ROUTE ; Start 06/25/20 at 14:21; Stop 06/25/20 at 14:21; Status DC Heparin Sodium/ Sodium Chloride 1,000 ml @ As Directed STK-MED ONCE .ROUTE ; Start 06/25/20 at 14:21; Stop 06/25/20 at 14:21; Status DC Heparin Sodium (Porcine) (Heparin Sodium) 10,000 unit STK-MED ONCE .ROUTE ; Start 06/25/20 at 14:31; Stop 06/25/20 at 14:31; Status DC Verapamil HCl (Verapamil) 5 mg STK-MED ONCE .ROUTE ; Start 06/25/20 at 14:31; Stop 06/25/20 at 14:31; Status DC Nitroglycerin (Nitroglycerin) 200 mcg STK-MED ONCE .ROUTE ; Start 06/25/20 at 14:31; Stop 06/25/20 at 14:31; Status DC Nitroglycerin (Nitroglycerin) 200 mcg 1X ONCE IART Last administered on 06/25/20at 15:09; Start 06/25/20 at 15:15; Stop 06/25/20 at 15:16; Status DC Verapamil HCl (Verapamil) 2.5 mg 1X ONCE IART Last administered on 06/25/20at 15:09; Start 06/25/20 at 15:15; Stop 06/25/20 at 15:16; Status DC Heparin Sodium (Porcine) (Heparin Sodium) 2,500 unit 1X ONCE IART Last administered on 06/25/20at 15:09; Start 06/25/20 at 15:15; Stop 06/25/20 at 15:16; Status DC Heparin Sodium/ Sodium Chloride (HEPARIN for ARTERIAL LINE FLUSH) 1,000 unit 1X ONCE IART Last administered on 06/25/20at 15:09; Start 06/25/20 at 15:15; Stop 06/25/20 at 15:16; Status DC Iohexol (Omnipaque 300 Mg/ml) 30 ml 1X ONCE IART Last administered on 06/25/20at 15:09; Start 06/25/20 at 15:15; Stop 06/25/20 at 15:16; Status DC Lidocaine HCl (Xylocaine-Mpf 1% 2ml Vial) 2 ml 1X ONCE INJ Last administered on 06/25/20at 15:09; Start 06/25/20 at 15:15; Stop 06/25/20 at 15:16; Status DC Amino Acids/ Glycerin/ Electrolytes 1,000 ml @ 80 mls/hr [id number] IV Last administered on 06/27/20at 08:41; Start 06/25/20 at 17:30 Potassium Chloride/Water 100 ml @ 100 mls/hr Q1H IV Last administered on 06/25/20at 18:46; Start 06/25/20 at 18:00; Stop 06/25/20 at 19:59; Status DC Rocuronium [place] (Zemuron) 50 mg STK-MED ONCE .ROUTE ; Start 06/26/20 at 11 :37; Stop 06/26/20 at 11:38; Status DC Cellulose (Surgicel Fibrillar 1x2) 1 each STK-MED ONCE .ROUTE Last administered on 06/26/20at 13:20; Start 06/26/20 at 12:19; Stop 06/26/20 at 12:19; Status DC Bupivacaine HCl (Sensorcaine Mpf 0.5%) 30 ml STK-MED ONCE .ROUTE ; Start 06/26/20 at 12:19; Stop 06/26/20 at 12:19; Status DC Ondansetron HCl (Zofran) 4 mg STK-MED ONCE .ROUTE ; Start 06/26/20 at 13:13; Stop 06/26/20 at 13:13; Status DC Dexamethasone Sodium Phosphate (Decadron) 4 mg STK-MED ONCE .ROUTE ; Start 06/26/20 at 13:13; Stop 06/26/20 at 13:14; Status DC Cellulose (Surgicel Fibrillar 1x2) 1 each STK-MED ONCE .ROUTE Last administered on 06/26/20at 13:22; Start 06/26/20 at 13:25; Stop 06/26/20 at 13:25; Status DC Sevoflurane (Ultane) 30 ml STK-MED ONCE IH ; Start 06/26/20 at 13:37; Stop 06/26/20 at 13:38; Status DC Propofol (Diprivan) 200 mg STK-MED ONCE IV ; Start 06/26/20 at 13:38; Stop 06/26/20 at 13:38; Status DC Ringer's Solution 1,000 ml @ 30 mls/hr Q24H IV Last administered on 06/27/20at 08:39; Start 06/27/20 at 07:00; Stop 06/27/20 at 18:59 Prochlorperazine Edisylate (Compazine) 5 mg PACU PRN PRN IV NAUSEA, MRX1; S tart 06/27/20 at 07:00; Stop 06/28/20 at 06:59 Propofol (Diprivan) 200 mg STK-MED ONCE IV ; Start 06/27/20 at 09:53; Stop 06/27/20 at 09:54; Status DC Lidocaine HCl (Lidocaine Pf 2% Vial) 5 ml STK-MED ONCE .ROUTE ; Start 06/27/20 at 09:54; Stop 06/27/20 at 09:54; Status DC Active Scripts Active Reported Acetaminophen-Diphenhyd 500-25 (Acetaminophen/Diphenhydramine) 1 Each Tablet 1 Each PO HS PRN Naproxen 500 Mg Tablet 1 Tab PO BID PRN 30 Days Tramadol Hcl 50 Mg Tablet 50 Mg PO Q4HRS Levothyroxine Sodium 75 Mcg Tablet 1 Tab PO DAILY Adderall 20 Mg Tablet (Dextroamphetamine/Amphetamine) 20 Mg Tablet 1 Tab PO DAILY MDD 1 Tablet(s) 5 Days Prozac (Fluoxetine Hcl) 20 Mg Capsule 1 Cap PO [id number] Vitals/I & O Vital Sign - Last 24 Hours 06/26/20 06/26/20 06/26/20 06/26/20 11:00 11:30 11:33 12:00 Pulse 61 Resp 18 18 18 B/P (MAP) 107/53 (71) Pulse Ox 98 97 97 96 O2 Delivery Ventilator Ventilator Ventilator Ventilator 06/26/20 06/26/20 06/26/20 06/26/20 12:00 12:00 14:00 15:00 Temp 98.4 98.4 Pulse 60 65 60 Resp 18 18 18 B/P (MAP) 107/58 (74) 146/86 (106) 112/62 (79) Pulse Ox 98 95 96 O2 Delivery Ventilator Mechanical Ventilator Ventilator Ventilator 06/26/20 06/26/20 06/26/20 06/26/20 15:19 16:00 16:00 17:00 Temp 98.8 98.8 Pulse 56 58 Resp 18 18 B/P (MAP) 108/63 (78) 119/72 (88) Pulse Ox 97 95 95 O2 Delivery Ventilator Mechanical Ventilator Ventilator Ventilator 06/26/20 06/26/20 06/26/20 06/26/20 18:00 18:03 18:33 19:00 Pulse 55 56 Resp 18 18 18 18 B/P (MAP) 106/67 (80) 127/68 (87) Pulse Ox 96 96 94 97 O2 Delivery Ventilator Ventilator Ventilator Ventilator 06/26/20 06/26/20 06/26/20 06/26/20 19:30 20:00 20:11 21:00 Temp 98.3 98.3 Pulse 57 60 Resp 18 18 B/P (MAP) 106/65 (79) 108/59 (75) Pulse Ox 96 96 97 O2 Delivery Mechanical Ventilator Ventilator Ventilator Ventilator 06/26/20 06/26/20 06/26/20 06/27/20 22:00 23:00 23:30 00:01 Temp 98.4 98.4 Pulse 64 56 55 Resp 18 18 18 B/P (MAP) 105/57 (73) 109/60 (76) 110/61 (77) Pulse Ox 95 95 97 O2 Delivery Ventilator Ventilator Mechanical Ventilator Ventilator 06/27/20 06/27/20 06/27/20 06/27/20 00:20 01:00 02:00 02:36 Pulse 54 52 Resp 18 18 B/P (MAP) 114/63 (80) 109/63 (78) Pulse Ox 97 97 97 96 O2 Delivery Ventilator Ventilator Ventilator Ventilator 06/27/20 06/27/20 06/27/20 06/27/20 03:00 03:09 03:30 04:00 Temp 98.1 98.1 Pulse 52 53 Resp 18 18 B/P (MAP) 110/60 (77) 119/66 (83) Pulse Ox 98 97 O2 Delivery Ventilator Ventilator Mechanical Ventilator Ventilator 06/27/20 06/27/20 06/27/20 06/27/20 04:28 05:00 06:00 07:00 Pulse 52 53 Resp 18 18 18 B/P (MAP) 105/61 (76) 119/69 (86) 110/64 (79) Pulse Ox 97 98 97 97 O2 Delivery Ventilator Ventilator Ventilator Ventilator 06/27/20 06/27/20 06/27/20 06/27/20 08:00 08:00 09:00 09:00 Temp 98.0 98.0 Resp 18 18 B/P (MAP) 109/63 (78) 109/67 (81) Pulse Ox 97 99 98 O2 Delivery Ventilator Mechanical Ventilator Ventilator Ventilator 06/27/20 06/27/20 10:00 10:10 Pulse 53 Resp 18 20 B/P (MAP) 101/66 (78) Pulse Ox 98 98 O2 Delivery Ventilator Ventilator O2 Flow Rate 15.0 Intake and Output 06/26/20 06/26/20 06/27/20 15:00 23:00 07:00 Intake Total 300 ml 1064 ml 1079 ml Output Total 385 ml 1615 ml 1425 ml Balance -85 ml -551 ml -346 ml Justicifation of Admission Dx: Justifications for Admission: Justification of Admission Dx: N/A JEFF FLORES MD Jun 27, 2020 10:55
--- NOTE | 2020-06-27 11:35 | PDOC ---
PULMONARY PROGRESS NOTES DATE: 06/27/20 TIME: 11:31 Subjective S/P cardiac arrest 06/17---PEA / V-fib remains on vent support 40% and PEEP of 5 S/P trach on 06/26 S/P peg 06/27 no overnight concerns Vitals Vital Signs Date Time Temp Pulse Resp B/P (MAP) Pulse Ox O2 Delivery O2 Flow Rate FiO2 06/27/20 11:00 18 151/60 (90) 97 Ventilator 06/27/20 10:30 98.0 52 15.0 98.0 Comments sedated Lungs: Clear Cardiovascular: S1 Abdomen: Soft Extremities: No Edema Labs Laboratory Tests Test 06/25/20 15:03 06/25/20 17:30 06/26/20 05:30 06/26/20 08:15 White Blood Count 8.8 x10^3/uL (4.0-11.0) 9.5 x10^3/uL (4.0-11.0) Red Blood Count 2.95 x10^6/uL (3.50-5.40) 3.11 x10^6/uL (3.50-5.40) Hemoglobin 8.8 g/dL (12.0-15.5) 9.5 g/dL (12.0-15.5) Hematocrit 27.0 % (36.0-47.0) 28.1 % (36.0-47.0) Mean Corpuscular Volume 91 fL (79-100) 90 fL (79-100) Mean Corpuscular Hemoglobin 30 pg (25-35) 31 pg (25-35) Mean Corpuscular Hemoglobin Concent 33 g/dL (31-37) 34 g/dL (31-37) Red Cell Distribution Width 13.1 % (11.5-14.5) 12.8 % (11.5-14.5) Platelet Count 260 x10^3/uL (140-400) 286 x10^3/uL (140-400) Sodium Level 143 mmol/L (136-145) 136 mmol/L (136-145) Potassium Level 3.4 mmol/L (3.5-5.1) 4.0 mmol/L (3.5-5.1) Chloride Level 106 mmol/L (98-107) 102 mmol/L (98-107) Carbon Dioxide Level 25 mmol/L (21-32) 25 mmol/L (21-32) Anion Gap 12 (6-14) 9 (6-14) Blood Urea Nitrogen 16 mg/dL (7-20) 15 mg/dL (7-20) Creatinine 0.4 mg/dL (0.6-1.0) 0.5 mg/dL (0.6-1.0) Estimated GFR (Cockcroft-Gault) 164.5 127.2 BUN/Creatinine Ratio 40 (6-20) Glucose Level 87 mg/dL (70-99) 91 mg/dL (70-99) Calcium Level 7.6 mg/dL (8.5-10.1) 8.4 mg/dL (8.5-10.1) Magnesium Level 1.8 mg/dL (1.8-2.4) Total Bilirubin 0.4 mg/dL (0.2-1.0) Aspartate Amino Transf (AST/SGOT) 37 U/L (15-37) Alanine Aminotransferase (ALT/SGPT) 60 U/L (14-59) Alkaline Phosphatase 117 U/L (46-116) Total Protein 5.5 g/dL (6.4-8.2) Albumin 2.0 g/dL (3.4-5.0) Albumin/Globulin Ratio 0.6 (1.0-1.7) Glucose (Fingerstick) 79 mg/dL (70-99) Neutrophils (%) (Auto) 72 % (31-73) Lymphocytes (%) (Auto) 20 % (24-48) Monocytes (%) (Auto) 6 % (0-9) Eosinophils (%) (Auto) 3 % (0-3) Basophils (%) (Auto) 1 % (0-3) Neutrophils # (Auto) 6.8 x10^3/uL (1.8-7.7) Lymphocytes # (Auto) 1.9 x10^3/uL (1.0-4.8) Monocytes # (Auto) 0.5 x10^3/uL (0.0-1.1) Eosinophils # (Auto) 0.3 x10^3/uL (0.0-0.7) Basophils # (Auto) 0.0 x10^3/uL (0.0-0.2) O2 Saturation 95 % (92-99) Arterial Blood pH 7.48 (7.35-7.45) Arterial Blood pCO2 at Patient Temp 30 mmHg (35-46) Arterial Blood pO2 at Patient Temp 81 mmHg (75-108) Arterial Blood HCO3 22 mmol/L (21-28) Arterial Blood Base Excess -1 mmol/L (-3-3) FiO2 40%+5 Test 06/26/20 12:37 06/26/20 13:38 06/27/20 06:00 06/27/20 09:05 Glucose (Fingerstick) 101 mg/dL (70-99) Prothrombin Time 15.2 SEC (11.7-14.0) Prothromb Time International Ratio 1.2 (0.8-1.1) White Blood Count 8.1 x10^3/uL (4.0-11.0) Red Blood Count 3.12 x10^6/uL (3.50-5.40) Hemoglobin 9.1 g/dL (12.0-15.5) Hematocrit 28.4 % (36.0-47.0) Mean Corpuscular Volume 91 fL (79-100) Mean Corpuscular Hemoglobin 29 pg (25-35) Mean Corpuscular Hemoglobin Concent 32 g/dL (31-37) Red Cell Distribution Width 12.9 % (11.5-14.5) Platelet Count 308 x10^3/uL (140-400) Neutrophils (%) (Auto) 75 % (31-73) Lymphocytes (%) (Auto) 19 % (24-48) Monocytes (%) (Auto) 5 % (0-9) Eosinophils (%) (Auto) 1 % (0-3) Basophils (%) (Auto) 1 % (0-3) Neutrophils # (Auto) 6.0 x10^3/uL (1.8-7.7) Lymphocytes # (Auto) 1.5 x10^3/uL (1.0-4.8) Monocytes # (Auto) 0.4 x10^3/uL (0.0-1.1) Eosinophils # (Auto) 0.1 x10^3/uL (0.0-0.7) Basophils # (Auto) 0.1 x10^3/uL (0.0-0.2) Sodium Level 136 mmol/L (136-145) Potassium Level 4.0 mmol/L (3.5-5.1) Chloride Level 103 mmol/L (98-107) Carbon Dioxide Level 26 mmol/L (21-32) Anion Gap 7 (6-14) Blood Urea Nitrogen 14 mg/dL (7-20) Creatinine 0.5 mg/dL (0.6-1.0) Estimated GFR (Cockcroft-Gault) 127.2 Glucose Level 98 mg/dL (70-99) Calcium Level 8.5 mg/dL (8.5-10.1) O2 Saturation 95 % (92-99) Arterial Blood pH 7.48 (7.35-7.45) Arterial Blood pCO2 at Patient Temp 30 mmHg (35-46) Arterial Blood pO2 at Patient Temp 75 mmHg (75-108) Arterial Blood HCO3 22 mmol/L (21-28) Arterial Blood Base Excess -1 mmol/L (-3-3) FiO2 40 Laboratory Tests Test 06/26/20 12:37 06/26/20 13:38 06/27/20 06:00 06/27/20 09:05 Glucose (Fingerstick) 101 mg/dL (70-99) Prothrombin Time 15.2 SEC (11.7-14.0) Prothromb Time International Ratio 1.2 (0.8-1.1) White Blood Count 8.1 x10^3/uL (4.0-11.0) Red Blood Count 3.12 x10^6/uL (3.50-5.40) Hemoglobin 9.1 g/dL (12.0-15.5) Hematocrit 28.4 % (36.0-47.0) Mean Corpuscular Volume 91 fL (79-100) Mean Corpuscular Hemoglobin 29 pg (25-35) Mean Corpuscular Hemoglobin Concent 32 g/dL (31-37) Red Cell Distribution Width 12.9 % (11.5-14.5) Platelet Count 308 x10^3/uL (140-400) Neutrophils (%) (Auto) 75 % (31-73) Lymphocytes (%) (Auto) 19 % (24-48) Monocytes (%) (Auto) 5 % (0-9) Eosinophils (%) (Auto) 1 % (0-3) Basophils (%) (Auto) 1 % (0-3) Neutrophils # (Auto) 6.0 x10^3/uL (1.8-7.7) Lymphocytes # (Auto) 1.5 x10^3/uL (1.0-4.8) Monocytes # (Auto) 0.4 x10^3/uL (0.0-1.1) Eosinophils # (Auto) 0.1 x10^3/uL (0.0-0.7) Basophils # (Auto) 0.1 x10^3/uL (0.0-0.2) Sodium Level 136 mmol/L (136-145) Potassium Level 4.0 mmol/L (3.5-5.1) Chloride Level 103 mmol/L (98-107) Carbon Dioxide Level 26 mmol/L (21-32) Anion Gap 7 (6-14) Blood Urea Nitrogen 14 mg/dL (7-20) Creatinine 0.5 mg/dL (0.6-1.0) Estimated GFR (Cockcroft-Gault) 127.2 Glucose Level 98 mg/dL (70-99) Calcium Level 8.5 mg/dL (8.5-10.1) O2 Saturation 95 % (92-99) Arterial Blood pH 7.48 (7.35-7.45) Arterial Blood pCO2 at Patient Temp 30 mmHg (35-46) Arterial Blood pO2 at Patient Temp 75 mmHg (75-108) Arterial Blood HCO3 22 mmol/L (21-28) Arterial Blood Base Excess -1 mmol/L (-3-3) FiO2 40 Medications Active Scripts Medications Dose Route/Sig Max Daily Dose Days Date Category Acetaminophen-Diphenhyd 500-25 (Acetaminophen/Diphenhydramine) 1 Each Tablet 1 Each PO HS PRN 06/18/20 Reported Naproxen 500 Mg Tablet 1 Tab PO BID PRN 30 06/18/20 Reported Tramadol Hcl 50 Mg Tablet 50 Mg PO Q4HRS 06/18/20 Reported Levothyroxine Sodium 75 Mcg Tablet 1 Tab PO DAILY 06/18/20 Reported Adderall 20 Mg Tablet (Dextroamphetamine/Amphetamine) 20 Mg Tablet 1 Tab PO DAILY MDD 1 Tablet(s) 5 06/18/20 Reported Prozac (Fluoxetine Hcl) 20 Mg Capsule 1 Cap PO [id number] 06/18/20 Reported Comments CXR 06/26/20 no pneumothorax Impression . IMPRESSION: 1. Acute respiratory failure secondary to [id number] cardiopulmonary arrest/ anoxic encephalopathy-- now S/P trach 2. [id number] ventricular fibrillation and asystole leading to anoxic brain injury. 3. Anoxic encephalopathy. 4. COVID neg 5. Morbid obesity. 6. Leukocytosis--improved 7. Lactic acidosis secondary to [id number] cardiac arrest. 8. Abnormal x-ray revealing bibasilar atelectasis, infiltrates. 9. Pneumothorax secondary to CPR.resolved 10. Sternal sternal fracture secondary to CPR. 11. ? Pneumonia positive, gram-negative, gram-positive. Plan . PLAN: Continue current support with assist control ventilation, Fi02 40% PEEP 5 Clinically consistent with Anoxic encephalopathy Trach 06/26/20, PEG on 06/27/20 PPN until able to start TF with PEG Follow CXR/ABG-- No changes Follow ID recs for ABX on zosyn -- D/C ABX Follow neurology recs Follow Cardiology recs-- post cardiac cath 06/25/20-- cath was clean w/ normal filling pressures DVT/GI PPX D/W RN and RT Social work for D/C planning -- screen for LTACH Critical Care Time [id number] AM PT. is FULL CODE OK to transfer to LTACH 48 hours post trach placement which is 06/28/20 ANGELA MORENO MD Jun 27, 2020 11:35
--- NOTE | 2020-06-27 11:36 | PDOC ---
[facility] PROGRESS NOTE Date of Service DOS: DATE: 06/27/20 TIME: 11:34 Chief Complaint Chief Complaint Cardiac arrest with resuscitation and probable pneumonia, sternal fracture and pneumothorax secondary to CPR, leukocytosis, electrolyte disturbance, hypokalemia, lactic acidosis, elevated troponin. History of Present Illness History of Present Illness 06/27/2020 Patient seen and examined in the ICU She got her tracheostomy yesterday afternoon Her Edis is here and her son Stephen is also here I discussed the case at length with them explaining what to expect in the future and prognosis Chart reviewed Discussed with RN 06/26/2020 Patient seen and examined in the ICU She remains intubated Going for tracheostomy today at 230 Vent settings as follows; AC/18/500/40 percent with 5 of PEEP She is on PPN Sedated with Versed and fentanyl Chart reviewed Discussed with her Discussed with RN She remains critically ill 06/25/2020 Patient seen and examined in the ICU She remains intubated Discussed with RN Discussed with neurologist Vent settings as follows AC/18/500/40 percent with 5 of PEEP She has a tracheostomy that is clean dry and intact Family present She remains critically ill The patient is a pleasant 59-year-old female who had COVID-19 two months ago. She had a witnessed cardiac arrest today. The family started CPR, they called the ambulance. She has now been resuscitated and intubated. She is currently being examined in the ER where she is starting to have some posturing. She is not really responding to pain either, but her pupils are reactive. 06/24: Patient seen in ICU. On vent, FiO2 40%, PEEP 5. I believe she has anoxic encephalopathy. No purposeful movements, and unsafe off sedation. I believe family is to discuss possible withdrawal of care soon, versus further aggressive treatment with trach and PEG. Discussed with RN. 06/23: Afebrile. On vent with FiO2 40%, PEEP 5. She is restless, no purposeful movements off sedation. Discussed with RN, continue to try to wean off vent. 06/22: No acute events overnight. Afebrile. On vent FiO2 40%, PEEP 5. Working towards extubation. Charts and labs reviewed, continue current medical m anagement. 06/21: Patient narcisa in ICU on ventilator. FiO2 40%, PEEP 5%. She is afebrile. Discussed with RN, no acute vents overnight. Charts and labs reviewed. Continue antibiotic treatment with Zosyn. 06/20: Patient seen in ICU. She remains on ventilator, FiO2 40%, PEEP 5. Afebrile. No acute events overnight. Echocardiogram obtained, showing mildly dilated left ventricle with global hypokinesis, estimated ejection fraction 25%. 06/19: Patient seen in ICU. On ventilator, FiO2 40%, PEEP 5. Continue IV Zosyn. Follow neurology and cardiology recommendations. Chest tube management and vent management per pulmonology. 06/18: Patient seen in ICU. Afebrile. Ventilated, FiO2 40%, PEEP 5. Continue antibiotic coverage. Charts and labs reviewed. Discussed with RN, no acute events overnight. COVID-19 negative. Echocardiogram pending. Vitals/I&O Vitals/I&O: Vital Signs Date Time Temp Pulse Resp B/P (MAP) Pulse Ox O2 Delivery O2 Flow Rate FiO2 06/27/20 11:00 18 151/60 (90) 97 Ventilator 06/27/20 10:30 98.0 52 15.0 98.0 I & O 06/26/20 06/26/20 06/27/20 15:00 23:00 07:00 Intake Total 300 ml 1064 ml 1079 ml Output Total 385 ml 1615 ml 1425 ml Balance -85 ml -551 ml -346 ml Physical Exam Physical Exam: GENERAL: Opens eyes transiently, does not follow any commands, not in distress. HEENT: Both pupils are round and reacting. No conjunctival lesion. NECK: Supple. Trach present LUNGS: Decreased breath sounds bilaterally. HEART: S1, S2, regular. No gallop or murmur. ABDOMEN: Soft, nontender. No organomegaly. EXTREMITIES: No edema or cyanosis. toe amputation of the Rt foot,healed scars SKIN: Unremarkable. NEUROLOGICAL: Opens eyes transiently does not follow any commands General: No acute distress Heart: Regular rate, Normal S1, Normal S2 Lungs: Clear Abdomen: Soft, No hepatosplenomegaly Extremities: No cyanosis Skin: No rashes, No breakdown Labs Labs: Laboratory Tests Test 06/26/20 12:37 06/26/20 13:38 06/27/20 06:00 06/27/20 09:05 Glucose (Fingerstick) 101 mg/dL (70-99) Prothrombin Time 15.2 SEC (11.7-14.0) Prothromb Time International Ratio 1.2 (0.8-1.1) White Blood Count 8.1 x10^3/uL (4.0-11.0) Red Blood Count 3.12 x10^6/uL (3.50-5.40) Hemoglobin 9.1 g/dL (12.0-15.5) Hematocrit 28.4 % (36.0-47.0) Mean Corpuscular Volume 91 fL (79-100) Mean Corpuscular Hemoglobin 29 pg (25-35) Mean Corpuscular Hemoglobin Concent 32 g/dL (31-37) Red Cell Distribution Width 12.9 % (11.5-14.5) Platelet Count 308 x10^3/uL (140-400) Neutrophils (%) (Auto) 75 % (31-73) Lymphocytes (%) (Auto) 19 % (24-48) Monocytes (%) (Auto) 5 % (0-9) Eosinophils (%) (Auto) 1 % (0-3) Basophils (%) (Auto) 1 % (0-3) Neutrophils # (Auto) 6.0 x10^3/uL (1.8-7.7) Lymphocytes # (Auto) 1.5 x10^3/uL (1.0-4.8) Monocytes # (Auto) 0.4 x10^3/uL (0.0-1.1) Eosinophils # (Auto) 0.1 x10^3/uL (0.0-0.7) Basophils # (Auto) 0.1 x10^3/uL (0.0-0.2) Sodium Level 136 mmol/L (136-145) Potassium Level 4.0 mmol/L (3.5-5.1) Chloride Level 103 mmol/L (98-107) Carbon Dioxide Level 26 mmol/L (21-32) Anion Gap 7 (6-14) Blood Urea Nitrogen 14 mg/dL (7-20) Creatinine 0.5 mg/dL (0.6-1.0) Estimated GFR (Cockcroft-Gault) 127.2 Glucose Level 98 mg/dL (70-99) Calcium Level 8.5 mg/dL (8.5-10.1) O2 Saturation 95 % (92-99) Arterial Blood pH 7.48 (7.35-7.45) Arterial Blood pCO2 at Patient Temp 30 mmHg (35-46) Arterial Blood pO2 at Patient Temp 75 mmHg (75-108) Arterial Blood HCO3 22 mmol/L (21-28) Arterial Blood Base Excess -1 mmol/L (-3-3) FiO2 40 Assessment and Plan Assessmemt and Plan Problems Medical Problems: (1) Cardiac arrest Status: Acute (2) Fracture of ribs, multiple Status: Acute (3) Hyperglycemia Status: Acute (4) Pneumonia Status: Acute (5) Pneumothorax, right Status: Acute (6) Sternal fracture Status: Acute (7) VF (ventricular fibrillation) Status: Acute Cardiac arrest with resuscitation and probable pneumonia, sternal fracture and pneumothorax secondary to CPR, leukocytosis, electrolyte disturbance, hypokalemia, lactic acidosis, elevated troponin. Plan ICU monitoring Vent weaning Tracheostomy care Will probably go for PEG placement soon We will likely need long-term acute care for a few weeks Home meds DVT prophylaxis Full code Appreciate subspecialist input CC time 31-minute Per pulmonary recommendations please see the following; IMPRESSION: 1. Acute respiratory failure secondary to [id number]-tj-geiyzgny cardiopulmonary arrest/ anoxic encephalopathy-- now S/P trach 2. Ivu-zm-qydefwei ventricular fibrillation and asystole leading to anoxic brain injury. 3. Anoxic encephalopathy. 4. COVID neg 5. Morbid obesity. 6. Leukocytosis--improved 7. Lactic acidosis secondary to rme-ur-wewitglb cardiac arrest. 8. Abnormal x-ray revealing bibasilar atelectasis, infiltrates. 9. Pneumothorax secondary to CPR.resolved 10. Sternal sternal fracture secondary to CPR. 11. ? Pneumonia positive, gram-negative, gram-positive. Plan Plan . PLAN: Continue current support with assist control ventilation, Fi02 40% PEEP 5 Clinically consistent with Anoxic encephalopathy Trach 06/26/20, PEG on 06/27/20 PPN until able to start TF with PEG Follow CXR/ABG-- No changes Follow ID recs for ABX on zosyn -- D/C ABX Follow neurology recs Follow Cardiology recs-- post cardiac cath 06/25/20-- cath was clean w/ normal filling pressures DVT/GI PPX Comment Review of Relevant I have reviewed the following items afua (where applicable) has been applied. Medications: Current Medications Medications (Trade) Dose Ordered Sig/Rosalio Route PRN Reason Start Time Stop Time Status Last Admin Dose Admin Cellulose (Surgicel Fibrillar 1x2) 1 each STK-MED ONCE .ROUTE 06/26/20 12:19 06/26/20 12:19 DC 06/26/20 13:20 Cellulose (Surgicel Fibrillar 1x2) 1 each STK-MED ONCE .ROUTE 06/26/20 13:25 06/26/20 13:25 DC 06/26/20 13:22 Ringer's Solution 1,000 ml @ 30 mls/hr Q24H IV 06/27/20 07:00 06/27/20 18:59 06/27/20 08:39 Justifications for Admission Other Justification HUSSEIN GOODWIN III DO Jun 27, 2020 11:36
--- NOTE | 2020-06-27 11:43 | PDOC ---
CARD[facility] Progress Notes Date and Time Date of Service 06/27/20 Time of Evaluation 1140 Subjective Subjective: Other (intubated, vent) Vitals Vitals Vital Signs Date Time Temp Pulse Resp B/P (MAP) Pulse Ox O2 Delivery O2 Flow Rate FiO2 06/27/20 11:00 18 151/60 (90) 97 Ventilator 06/27/20 10:30 98.0 52 15.0 98.0 Weight Weight [ ] Input and Output Intake and Output Intake and Output 06/27/20 07:00 Intake Total 2443 ml Output Total 3425 ml Balance -982 ml IV Total 2193 ml Tube Feeding 250 ml Output Urine Total 3425 ml Laboratory Labs Laboratory Tests Test 06/26/20 12:37 06/26/20 13:38 06/27/20 06:00 06/27/20 09:05 Glucose (Fingerstick) 101 mg/dL (70-99) Prothrombin Time 15.2 SEC (11.7-14.0) Prothromb Time International Ratio 1.2 (0.8-1.1) White Blood Count 8.1 x10^3/uL (4.0-11.0) Red Blood Count 3.12 x10^6/uL (3.50-5.40) Hemoglobin 9.1 g/dL (12.0-15.5) Hematocrit 28.4 % (36.0-47.0) Mean Corpuscular Volume 91 fL (79-100) Mean Corpuscular Hemoglobin 29 pg (25-35) Mean Corpuscular Hemoglobin Concent 32 g/dL (31-37) Red Cell Distribution Width 12.9 % (11.5-14.5) Platelet Count 308 x10^3/uL (140-400) Neutrophils (%) (Auto) 75 % (31-73) Lymphocytes (%) (Auto) 19 % (24-48) Monocytes (%) (Auto) 5 % (0-9) Eosinophils (%) (Auto) 1 % (0-3) Basophils (%) (Auto) 1 % (0-3) Neutrophils # (Auto) 6.0 x10^3/uL (1.8-7.7) Lymphocytes # (Auto) 1.5 x10^3/uL (1.0-4.8) Monocytes # (Auto) 0.4 x10^3/uL (0.0-1.1) Eosinophils # (Auto) 0.1 x10^3/uL (0.0-0.7) Basophils # (Auto) 0.1 x10^3/uL (0.0-0.2) Sodium Level 136 mmol/L (136-145) Potassium Level 4.0 mmol/L (3.5-5.1) Chloride Level 103 mmol/L (98-107) Carbon Dioxide Level 26 mmol/L (21-32) Anion Gap 7 (6-14) Blood Urea Nitrogen 14 mg/dL (7-20) Creatinine 0.5 mg/dL (0.6-1.0) Estimated GFR (Cockcroft-Gault) 127.2 Glucose Level 98 mg/dL (70-99) Calcium Level 8.5 mg/dL (8.5-10.1) O2 Saturation 95 % (92-99) Arterial Blood pH 7.48 (7.35-7.45) Arterial Blood pCO2 at Patient Temp 30 mmHg (35-46) Arterial Blood pO2 at Patient Temp 75 mmHg (75-108) Arterial Blood HCO3 22 mmol/L (21-28) Arterial Blood Base Excess -1 mmol/L (-3-3) FiO2 40 Microbiology Micro Microbiology 06/17/20 Blood Culture - Final, Complete NO GROWTH AFTER 5 DAYS Physical Exam HEENT: Neck Supple W Full Motion Chest: Symmetric LUNGS: Other (intubated, vent) Heart: RRR (SR with PVCs) Abdomen: Other (soft) Extremities: No Edema Assessment Assessment 1. OOH cardiopulmonary arrest due to VT 2. Acute respiratory failure with possible pneumonia; s/p tach, PEG 3. Severe, non-schemic cardiomyopathy: EF 25%. [facility] 06/25/20 with normal coronaries 4. Right pneumothorax, sternal fractures 5. Anoxic encephalopathy 6. Acute systolic CHF: compensated. Cath with normal filling pressures 7. Hypothyroidism: on replacement Recommendations Continue amiodarone for rhythm maintenance Continue Coreg as BP allows No LORAINE/ARB due to hypotension Lasix PRN Ongoing support Justicifation of Admission Dx: Justifications for Admission: Justification of Admission Dx: N/A LORI SOLORZANO APRN Jun 27, 2020 11:43
--- NOTE | 2020-06-27 18:42 | NUR ---
NPO after peg placement late AM . OK to feed in am per Tolerated placement well. Remains heavily sedated today. home after communication w Drs. Thyroid med restarted . neuro signs present- yawning freq,no following verbal commands.no tracking. Status quo at this time.
[2020-06-27] MEDS: ATORVASTATIN CALCIUM 20 MG TABLET PO SCH (20:50)
[2020-06-27] MEDS: ENOXAPARIN 40 MG/0.4 ML SYRINGE. SQ SCH (20:53)
[2020-06-28] VITALS (25 sets, daily range): BP systolic 95–163; BP diastolic 52–83
[2020-06-28] MEDS: MIDAZOLAM 100mg/100ml NS BAG 100 ML IV PRN (03:00)
[2020-06-28] MEDS: LEVOTHYROXINE 75 MCG TABLET PO SCH (05:31)
[2020-06-28 05:54] LABS: BASO # 0.1 x10^3/uL (0.0-0.2); BASO % 1 % (0-3); EOS # 0.2 x10^3/uL (0.0-0.7); EOS % 3 % (0-3); HEMATOCRIT 29.2 % (36.0-47.0); HEMOGLOBIN 9.7 g/dL (12.0-15.5); LYMPH # 2.1 x10^3/uL (1.0-4.8); LYMPH % 21 % (24-48); MEAN CORPUSCULAR HEMOGLOBIN 30 pg (25-35); MEAN CORPUSCULAR HGB CONC 33 g/dL (31-37); MEAN CORPUSCULAR VOLUME 91 fL (79-100); MONO # 0.5 x10^3/uL (0.0-1.1); MONO % 5 % (0-9); NEUT # 6.9 x10^3/uL (1.8-7.7); NEUT % 71 % (31-73); PLATELET COUNT 325 x10^3/uL (140-400); RED BLOOD COUNT 3.22 x10^6/uL (3.50-5.40); RED CELL DISTRIBUTION WIDTH 12.9 % (11.5-14.5); WHITE BLOOD COUNT 9.7 x10^3/uL (4.0-11.0)
[2020-06-28 05:56] LABS: CALCIUM 8.5 mg/dL (8.5-10.1); CREATININE 0.6 mg/dL (0.6-1.0); POTASSIUM 4.2 mmol/L (3.5-5.1)
--- NOTE | 2020-06-28 07:52 | PDOC ---
Infectious Disease Note Subjective: Subjective Patient remains on vent Does not follow any commands Underwent PEG tube placement yesterday No fevers Discussed with RN Vital Signs: Vital Signs Vital Signs Date Time Temp Pulse Resp B/P (MAP) Pulse Ox O2 Delivery O2 Flow Rate FiO2 06/28/20 07:00 62 25 102/59 (73) 97 Ventilator 06/28/20 04:00 98.6 98.6 06/27/20 15:32 15.0 Physical Exam: PHYSICAL EXAM GENERAL: Opens eyes transiently, does not follow any commands, not in distress. HEENT: Both pupils are round and reacting. No conjunctival lesion. NECK: Supple. Trach present LUNGS: Decreased breath sounds bilaterally. HEART: S1, S2, regular. No gallop or murmur. ABDOMEN: Soft, nontender. No organomegaly.peg tube + EXTREMITIES: No edema or cyanosis. toe amputation of the Rt foot,healed scars SKIN: Unremarkable. NEUROLOGICAL: Opens eyes transiently does not follow any commands Medications: Inpatient Meds: Current Medications Medications (Trade) Dose Ordered Sig/Rosalio Start Time Stop Time Status Last Admin Dose Admin Albuterol/ Ipratropium (Duoneb) 3 ml RTQID 06/18/20 20:00 06/27/20 20:00 3 ML Amino Acids/ Glycerin/ Electrolytes 1,000 ml @ 80 mls/hr [id number] 06/25/20 17:30 06/27/20 20:50 80 MLS/HR Amiodarone HCl (Cordarone) 400 mg DAILY 06/20/20 09:00 06/26/20 10:23 400 MG Amiodarone HCl 150 mg/Dextrose 103 ml @ 618 mls/hr 1X ONCE 06/17/20 07:00 06/17/20 07:09 DC 06/17/20 07:00 618 MLS/HR Amiodarone HCl 450 mg/Dextrose 259 ml @ 33 mls/hr 1X ONCE 06/17/20 07:00 06/17/20 14:50 DC Aspirin (Aspirin Chewable) 81 mg 1X ONCE 06/19/20 15:30 06/19/20 15:37 DC 06/19/20 15:57 81 MG Atorvastatin Calcium (Lipitor) 20 mg QHS 06/19/20 21:00 06/27/20 20:50 20 MG Atropine Sulfate (ATROPINE 0.5mg SYRINGE) 0.5 mg PRN Q5MIN PRN 06/21/20 10:45 Bupivacaine HCl (Sensorcaine Mpf 0.5%) 30 ml STK-MED ONCE 06/26/20 12:19 06/26/20 12:19 DC Buspirone HCl (Buspar) 30 mg Q8H 06/17/20 12:00 06/17/20 12:39 DC 06/17/20 12:31 30 MG Carvedilol (Coreg) 3.125 mg BIDWMEALS 06/19/20 17:00 06/26/20 10:23 3.125 MG Cellulose (Surgicel Fibrillar 1x2) 1 each STK-MED ONCE 06/26/20 13:25 06/26/20 13:25 DC 06/26/20 13:22 1 EACH Dexamethasone Sodium Phosphate (Decadron) 4 mg STK-MED ONCE 06/26/20 13:13 06/26/20 13:14 DC Dexmedetomidine HCl 400 mcg/ Sodium Chloride 100 ml @ 0 mls/hr CONT PRN 06/21/20 10:45 06/25/20 04:43 15.7 MLS/HR Enoxaparin Sodium (Lovenox 40mg Syringe) 40 mg Q24H 06/18/20 21:00 06/24/20 20:46 40 MG Famotidine (Pepcid Vial) 20 mg BID 06/18/20 21:00 06/27/20 20:50 20 MG Fentanyl Citrate (Fentanyl 2ml Vial) 50 mcg PRN Q2HR PRN 06/23/20 16:45 06/24/20 20:54 50 MCG Furosemide (Lasix) 40 mg 1X ONCE 06/20/20 13:30 06/20/20 13:31 DC 06/20/20 14:38 40 MG Glycerin/ Hypromellose/ Polyethylene (Artificial Tears) 1 drop PRN Q15MIN PRN 06/17/20 12:00 06/17/20 12:39 DC Heparin Sodium (Porcine) (Heparin Sodium) 2,500 unit 1X ONCE 06/25/20 15:15 06/25/20 15:16 DC 06/25/20 15:09 2,500 UNIT Heparin Sodium/ Sodium Chloride (HEPARIN for ARTERIAL LINE FLUSH) 1,000 unit 1X ONCE 06/25/20 15:15 06/25/20 15:16 DC 06/25/20 15:09 1,000 UNIT Info (CONTRAST GIVEN -- Rx MONITORING) 1 each PRN DAILY PRN 06/17/20 08:15 06/19/20 08:14 DC Iohexol (Omnipaque 300 Mg/ml) 30 ml 1X ONCE 06/25/20 15:15 06/25/20 15:16 DC 06/25/20 15:09 30 ML Iohexol (Omnipaque 350 Mg/ml) 100 ml 1X ONCE 06/17/20 08:15 06/17/20 08:16 DC 06/17/20 08:17 100 ML Levothyroxine Sodium (Synthroid) 75 mcg DAILY06 06/18/20 21:00 06/28/20 05:31 75 MCG Lidocaine HCl (Lidocaine 1% 20ml Vial) 20 ml 1X ONCE 06/17/20 09:15 06/17/20 09:20 DC 06/17/20 09:15 20 ML Lidocaine HCl (Lidocaine Pf 2% Vial) 5 ml STK-MED ONCE 06/27/20 09:54 06/27/20 09:54 DC Lidocaine HCl (Xylocaine-Mpf 1% 2ml Vial) 2 ml 1X ONCE 06/25/20 15:15 06/25/20 15:16 DC 06/25/20 15:09 2 ML Lidocaine HCl (Xylocaine-Mpf 1% 5ml Vial) 5 ml STK-MED ONCE 06/17/20 09:26 06/17/20 09:26 DC Magnesium Sulfate/ Dextrose 100 ml @ 100 mls/hr 1X ONCE 06/17/20 12:00 06/17/20 12:39 DC 06/17/20 12:22 100 MLS/HR Midazolam HCl 100 ml @ 0 mls/hr CONT PRN 06/25/20 11:45 06/28/20 03:00 10 MLS/HR Midazolam HCl (Versed) 5 mg Q1HR PRN 06/17/20 12:45 06/18/20 19:57 5 MG Nitroglycerin (Nitroglycerin) 200 mcg 1X ONCE 06/25/20 15:15 06/25/20 15:16 DC 06/25/20 15:09 200 MCG Ondansetron HCl (Zofran) 4 mg STK-MED ONCE 06/26/20 13:13 06/26/20 13:13 DC Pantoprazole Sodium (PROTONIX VIAL for IV PUSH) 40 mg DAILY 06/18/20 09:00 06/17/20 12:39 DC Piperacillin Sod/ Tazobactam Sod (Zosyn Per Pharmacy) 1 each PRN DAILY PRN 06/17/20 08:45 06/27/20 11:36 DC Piperacillin Sod/ Tazobactam Sod 3.375 gm/Sodium Chloride 50 ml @ 100 mls/hr Q6H 06/17/20 16:00 06/27/20 11:30 DC 06/27/20 05:31 100 MLS/HR Piperacillin Sod/ Tazobactam Sod 4.5 gm/Sodium Chloride 100 ml @ 200 mls/hr 1X ONCE 06/17/20 12:15 06/17/20 12:44 Cancel Potassium Bicarbonate (Potassium Effervescent Tablet) 40 meq 1X ONCE 06/18/20 09:45 06/18/20 09:48 DC 06/18/20 10:00 40 MEQ Potassium Chloride/Water 100 ml @ 100 mls/hr Q1H 06/25/20 18:00 06/25/20 19:59 DC 06/25/20 18:46 100 MLS/HR Prochlorperazine Edisylate (Compazine) 5 mg PACU PRN PRN 06/27/20 07:00 06/28/20 06:59 DC Propofol (Diprivan) 200 mg STK-MED ONCE 06/27/20 09:53 06/27/20 09:54 DC Ringer's Solution 1,000 ml @ 30 mls/hr Q24H 06/27/20 07:00 06/27/20 18:59 DC 06/27/20 08:39 30 MLS/HR Rocuronium [place] (Zemuron) 50 mg STK-MED ONCE 06/26/20 11:37 06/26/20 11:38 DC Sevoflurane (Ultane) 30 ml STK-MED ONCE 06/26/20 13:37 06/26/20 13:38 DC Sodium Chloride 500 ml @ 500 mls/hr 1X PRN PRN 06/21/20 10:45 Vecuronium [place] (Norcuron Bolus) 10 mg PRN Q1HR PRN 06/17/20 12:00 06/17/20 12:39 DC Verapamil HCl (Verapamil) 2.5 mg 1X ONCE 06/25/20 15:15 06/25/20 15:16 DC 06/25/20 15:09 2.5 MG Labs: Lab Laboratory Tests Test 06/27/20 09:05 06/28/20 05:30 O2 Saturation 95 % (92-99) Arterial Blood pH 7.48 (7.35-7.45) Arterial Blood pCO2 at Patient Temp 30 mmHg (35-46) Arterial Blood pO2 at Patient Temp 75 mmHg (75-108) Arterial Blood HCO3 22 mmol/L (21-28) Arterial Blood Base Excess -1 mmol/L (-3-3) FiO2 40 White Blood Count 9.7 x10^3/uL (4.0-11.0) Red Blood Count 3.22 x10^6/uL (3.50-5.40) Hemoglobin 9.7 g/dL (12.0-15.5) Hematocrit 29.2 % (36.0-47.0) Mean Corpuscular Volume 91 fL (79-100) Mean Corpuscular Hemoglobin 30 pg (25-35) Mean Corpuscular Hemoglobin Concent 33 g/dL (31-37) Red Cell Distribution Width 12.9 % (11.5-14.5) Platelet Count 325 x10^3/uL (140-400) Neutrophils (%) (Auto) 71 % (31-73) Lymphocytes (%) (Auto) 21 % (24-48) Monocytes (%) (Auto) 5 % (0-9) Eosinophils (%) (Auto) 3 % (0-3) Basophils (%) (Auto) 1 % (0-3) Neutrophils # (Auto) 6.9 x10^3/uL (1.8-7.7) Lymphocytes # (Auto) 2.1 x10^3/uL (1.0-4.8) Monocytes # (Auto) 0.5 x10^3/uL (0.0-1.1) Eosinophils # (Auto) 0.2 x10^3/uL (0.0-0.7) Basophils # (Auto) 0.1 x10^3/uL (0.0-0.2) Sodium Level 138 mmol/L (136-145) Potassium Level 4.2 mmol/L (3.5-5.1) Chloride Level 103 mmol/L (98-107) Carbon Dioxide Level 25 mmol/L (21-32) Anion Gap 10 (6-14) Blood Urea Nitrogen 15 mg/dL (7-20) Creatinine 0.6 mg/dL (0.6-1.0) Estimated GFR (Cockcroft-Gault) 103.0 Glucose Level 91 mg/dL (70-99) Calcium Level 8.5 mg/dL (8.5-10.1) Objective: Assessment: 1. Cardiopulmonary arrest at home. s/p cardiac cath , normal coronaries 2. Leukocytosis, likely reactive. resolved 3. Lactic acidosis from #1. 4. Respiratory failure. suspected aspiration; status post trach placement 5. Anoxic Encephalopathy 6. Hypertension. 7. Pneumothorax.s/p CTS, 8. Rib fracture and sternal fracture. 9. Anemia 10. S/P Peg tube placement Plan: Plan of Care Monitor off antibiotic covid neg cultures neg cont supportive care Discussed with and son at bedside D/W SAÚL MAYES MD Jun 28, 2020 07:52
[2020-06-28] MEDS: AMINO AC 3%/ELECTROLYTE/GLYCER 1,000 ML IV SCH (08:00)
[2020-06-28] MEDS: IPRATRPIUM/ALBUTEROL 0.5/2.5MG 3 ML NEBU. NEB SCH ×4 (08:01→19:54)
[2020-06-28 08:15] LABS: BASE EXCESS ABG -1 mmol/L (-3-3); HCO3 ABG 22 mmol/L (21-28); PCO2 ABG 31 mmHg (35-46); PO2 ABG 73 mmHg (75-108); SAT O2 ABG 95 % (92-99)
[2020-06-28] MEDS: ASPIRIN CHEWABLE 81 MG TABLET. PO SCH (08:17)
[2020-06-28] MEDS: CARVEDILOL 3.125 MG TABLET. PO SCH ×2 (08:17→17:22)
[2020-06-28] MEDS: AMIODARONE HCL 200 MG TABLET. PO SCH (08:18)
[2020-06-28] MEDS: FAMOTIDINE 20 MG/2 ML VIAL IVP SCH ×2 (08:18→20:34)
--- NOTE | 2020-06-28 08:20 | PDOC ---
PULMONARY PROGRESS NOTES DATE: 06/28/20 TIME: 08:19 Subjective S/P cardiac arrest 06/17---PEA / V-fib remains on vent support 40% and PEEP of 5 S/P trach on 06/26 S/P peg 06/27 no overnight concerns Vitals Vital Signs Date Time Temp Pulse Resp B/P (MAP) Pulse Ox O2 Delivery O2 Flow Rate FiO2 06/28/20 08:18 65 103/60 06/28/20 08:00 Mechanical Ventilator 06/28/20 07:00 25 97 06/28/20 04:00 98.6 98.6 06/27/20 15:32 15.0 Lungs: Clear Cardiovascular: S1 Abdomen: Soft Extremities: No Edema Labs Laboratory Tests Test 06/26/20 12:37 06/26/20 13:38 06/27/20 06:00 06/27/20 09:05 Glucose (Fingerstick) 101 mg/dL (70-99) Prothrombin Time 15.2 SEC (11.7-14.0) Prothromb Time International Ratio 1.2 (0.8-1.1) White Blood Count 8.1 x10^3/uL (4.0-11.0) Red Blood Count 3.12 x10^6/uL (3.50-5.40) Hemoglobin 9.1 g/dL (12.0-15.5) Hematocrit 28.4 % (36.0-47.0) Mean Corpuscular Volume 91 fL (79-100) Mean Corpuscular Hemoglobin 29 pg (25-35) Mean Corpuscular Hemoglobin Concent 32 g/dL (31-37) Red Cell Distribution Width 12.9 % (11.5-14.5) Platelet Count 308 x10^3/uL (140-400) Neutrophils (%) (Auto) 75 % (31-73) Lymphocytes (%) (Auto) 19 % (24-48) Monocytes (%) (Auto) 5 % (0-9) Eosinophils (%) (Auto) 1 % (0-3) Basophils (%) (Auto) 1 % (0-3) Neutrophils # (Auto) 6.0 x10^3/uL (1.8-7.7) Lymphocytes # (Auto) 1.5 x10^3/uL (1.0-4.8) Monocytes # (Auto) 0.4 x10^3/uL (0.0-1.1) Eosinophils # (Auto) 0.1 x10^3/uL (0.0-0.7) Basophils # (Auto) 0.1 x10^3/uL (0.0-0.2) Sodium Level 136 mmol/L (136-145) Potassium Level 4.0 mmol/L (3.5-5.1) Chloride Level 103 mmol/L (98-107) Carbon Dioxide Level 26 mmol/L (21-32) Anion Gap 7 (6-14) Blood Urea Nitrogen 14 mg/dL (7-20) Creatinine 0.5 mg/dL (0.6-1.0) Estimated GFR (Cockcroft-Gault) 127.2 Glucose Level 98 mg/dL (70-99) Calcium Level 8.5 mg/dL (8.5-10.1) O2 Saturation 95 % (92-99) Arterial Blood pH 7.48 (7.35-7.45) Arterial Blood pCO2 at Patient Temp 30 mmHg (35-46) Arterial Blood pO2 at Patient Temp 75 mmHg (75-108) Arterial Blood HCO3 22 mmol/L (21-28) Arterial Blood Base Excess -1 mmol/L (-3-3) FiO2 40 Test 06/28/20 05:30 White Blood Count 9.7 x10^3/uL (4.0-11.0) Red Blood Count 3.22 x10^6/uL (3.50-5.40) Hemoglobin 9.7 g/dL (12.0-15.5) Hematocrit 29.2 % (36.0-47.0) Mean Corpuscular Volume 91 fL (79-100) Mean Corpuscular Hemoglobin 30 pg (25-35) Mean Corpuscular Hemoglobin Concent 33 g/dL (31-37) Red Cell Distribution Width 12.9 % (11.5-14.5) Platelet Count 325 x10^3/uL (140-400) Neutrophils (%) (Auto) 71 % (31-73) Lymphocytes (%) (Auto) 21 % (24-48) Monocytes (%) (Auto) 5 % (0-9) Eosinophils (%) (Auto) 3 % (0-3) Basophils (%) (Auto) 1 % (0-3) Neutrophils # (Auto) 6.9 x10^3/uL (1.8-7.7) Lymphocytes # (Auto) 2.1 x10^3/uL (1.0-4.8) Monocytes # (Auto) 0.5 x10^3/uL (0.0-1.1) Eosinophils # (Auto) 0.2 x10^3/uL (0.0-0.7) Basophils # (Auto) 0.1 x10^3/uL (0.0-0.2) Sodium Level 138 mmol/L (136-145) Potassium Level 4.2 mmol/L (3.5-5.1) Chloride Level 103 mmol/L (98-107) Carbon Dioxide Level 25 mmol/L (21-32) Anion Gap 10 (6-14) Blood Urea Nitrogen 15 mg/dL (7-20) Creatinine 0.6 mg/dL (0.6-1.0) Estimated GFR (Cockcroft-Gault) 103.0 Glucose Level 91 mg/dL (70-99) Calcium Level 8.5 mg/dL (8.5-10.1) Laboratory Tests Test 06/27/20 09:05 06/28/20 05:30 O2 Saturation 95 % (92-99) Arterial Blood pH 7.48 (7.35-7.45) Arterial Blood pCO2 at Patient Temp 30 mmHg (35-46) Arterial Blood pO2 at Patient Temp 75 mmHg (75-108) Arterial Blood HCO3 22 mmol/L (21-28) Arterial Blood Base Excess -1 mmol/L (-3-3) FiO2 40 White Blood Count 9.7 x10^3/uL (4.0-11.0) Red Blood Count 3.22 x10^6/uL (3.50-5.40) Hemoglobin 9.7 g/dL (12.0-15.5) Hematocrit 29.2 % (36.0-47.0) Mean Corpuscular Volume 91 fL (79-100) Mean Corpuscular Hemoglobin 30 pg (25-35) Mean Corpuscular Hemoglobin Concent 33 g/dL (31-37) Red Cell Distribution Width 12.9 % (11.5-14.5) Platelet Count 325 x10^3/uL (140-400) Neutrophils (%) (Auto) 71 % (31-73) Lymphocytes (%) (Auto) 21 % (24-48) Monocytes (%) (Auto) 5 % (0-9) Eosinophils (%) (Auto) 3 % (0-3) Basophils (%) (Auto) 1 % (0-3) Neutrophils # (Auto) 6.9 x10^3/uL (1.8-7.7) Lymphocytes # (Auto) 2.1 x10^3/uL (1.0-4.8) Monocytes # (Auto) 0.5 x10^3/uL (0.0-1.1) Eosinophils # (Auto) 0.2 x10^3/uL (0.0-0.7) Basophils # (Auto) 0.1 x10^3/uL (0.0-0.2) Sodium Level 138 mmol/L (136-145) Potassium Level 4.2 mmol/L (3.5-5.1) Chloride Level 103 mmol/L (98-107) Carbon Dioxide Level 25 mmol/L (21-32) Anion Gap 10 (6-14) Blood Urea Nitrogen 15 mg/dL (7-20) Creatinine 0.6 mg/dL (0.6-1.0) Estimated GFR (Cockcroft-Gault) 103.0 Glucose Level 91 mg/dL (70-99) Calcium Level 8.5 mg/dL (8.5-10.1) Medications Active Scripts Medications Dose Route/Sig Max Daily Dose Days Date Category Acetaminophen-Diphenhyd 500-25 (Acetaminophen/Diphenhydramine) 1 Each Tablet 1 Each PO HS PRN 06/18/20 Reported Naproxen 500 Mg Tablet 1 Tab PO BID PRN 30 06/18/20 Reported Tramadol Hcl 50 Mg Tablet 50 Mg PO Q4HRS 06/18/20 Reported Levothyroxine Sodium 75 Mcg Tablet 1 Tab PO DAILY 06/18/20 Reported Adderall 20 Mg Tablet (Dextroamphetamine/Amphetamine) 20 Mg Tablet 1 Tab PO DAILY MDD 1 Tablet(s) 5 06/18/20 Reported Prozac (Fluoxetine Hcl) 20 Mg Capsule 1 Cap PO [id number] 06/18/20 Reported Comments CXR 06/26/20 no pneumothorax Impression . IMPRESSION: 1. Acute respiratory failure secondary to [id number] cardiopulmonary arrest/ anoxic encephalopathy-- now S/P trach 2. Ion-qr-pvhodlze ventricular fibrillation and asystole leading to anoxic brain injury. 3. Anoxic encephalopathy. 4. COVID neg 5. Morbid obesity. 6. Leukocytosis--improved 7. Lactic acidosis secondary to wdi-bo-ndcsekup cardiac arrest. 8. Abnormal x-ray revealing bibasilar atelectasis, infiltrates. 9. Pneumothorax secondary to CPR.resolved 10. Sternal sternal fracture secondary to CPR. 11. ? Pneumonia positive, gram-negative, gram-positive. Plan . PLAN: Continue current support with assist control ventilation, Fi02 40% PEEP 5, D/C sedation, proceed with pressure support --pressure support 12/5 as tolerated during the day, assist control at night Clinically consistent with Anoxic encephalopathy Trach 06/26/20, PEG on 06/27/20 PPN until able to start TF with PEG Follow CXR/ABG-- No changes Follow neurology recs Follow Cardiology recs-- post cardiac cath 06/25/20-- cath was clean w/ normal filling pressures DVT/GI PPX D/W RN and RT Social work for D/C planning -- screen for LTACH Critical Care Time [id number] AM PT. is FULL CODE OK to transfer to LTACH 48 hours post trach placement which is 06/28/20 NIKA GARNER MD Jun 28, 2020 08:20
[2020-06-28 08:49] LABS: FIO2 ABG 40%
--- NOTE | 2020-06-28 10:16 | PDOC ---
Date of Service: DATE: 06/28/20 TIME: 10:13 Subjective: Subjective: and son present - they say she is off vent and breathing on her own. Objective: Objective: Nurse says PEG functioning great, to start tube feeds if okay w/ us. Possible Dc to [facility] if bed available. Vital Signs: Vital Signs Date Time Temp Pulse Resp B/P (MAP) Pulse Ox O2 Delivery O2 Flow Rate FiO2 06/28/20 10:00 84 25 117/72 (87) 96 Ventilator 06/28/20 08:00 99.2 99.2 06/27/20 15:32 15.0 Labs: Laboratory Tests Test 06/28/20 05:30 06/28/20 08:10 White Blood Count 9.7 x10^3/uL Red Blood Count 3.22 x10^6/uL Hemoglobin 9.7 g/dL Hematocrit 29.2 % Mean Corpuscular Volume 91 fL Mean Corpuscular Hemoglobin 30 pg Mean Corpuscular Hemoglobin Concent 33 g/dL Red Cell Distribution Width 12.9 % Platelet Count 325 x10^3/uL Neutrophils (%) (Auto) 71 % Lymphocytes (%) (Auto) 21 % Monocytes (%) (Auto) 5 % Eosinophils (%) (Auto) 3 % Basophils (%) (Auto) 1 % Neutrophils # (Auto) 6.9 x10^3/uL Lymphocytes # (Auto) 2.1 x10^3/uL Monocytes # (Auto) 0.5 x10^3/uL Eosinophils # (Auto) 0.2 x10^3/uL Basophils # (Auto) 0.1 x10^3/uL Sodium Level 138 mmol/L Potassium Level 4.2 mmol/L Chloride Level 103 mmol/L Carbon Dioxide Level 25 mmol/L Anion Gap 10 Blood Urea Nitrogen 15 mg/dL Creatinine 0.6 mg/dL Estimated GFR (Cockcroft-Gault) 103.0 Glucose Level 91 mg/dL Calcium Level 8.5 mg/dL O2 Saturation 95 % Arterial Blood pH 7.47 Arterial Blood pCO2 at Patient Temp 31 mmHg Arterial Blood pO2 at Patient Temp 73 mmHg Arterial Blood HCO3 22 mmol/L Arterial Blood Base Excess -1 mmol/L FiO2 40% Imaging: PEG 06/27/20 E--normal G--normal D--normal bulb. --20F g-tube placed uneventfully. Briefly re-scoped, confirming good position. Sue. well. IMP: Successful PEG REC: Water/meds OK per tube today. If no issues, can start feeding in AM. PE: GEN: NAD LUNGS: trach HEART: RRR ABD: soft, PEG in place, removed gauze from under bumper, site clean/dry, appropriate tension NEURO/PSYCH: eyes open, unclear any purposeful movements A/P: S/p cardiopulmonary arrest, anoxic encephalopathy, resp failure S/p trach and PEG -- PEG functioning - okay to start feeds per GI. ?abdominal binder? DC per primary. Justicifation of Admission Dx: Justifications for Admission: Justification of Admission Dx: N/A SHAHBAZ FOSS Jun 28, 2020 10:16
--- NOTE | 2020-06-28 10:38 | PDOC ---
JESSE ANTOINE [employer] 06/28/20 1038: CARDIO Progress Notes Date and Time Date of Service 06/28/2020 Time of Evaluation 0910 Subjective Subjective: Other (nonverbal) Vitals Vitals Vital Signs Date Time Temp Pulse Resp B/P (MAP) Pulse Ox O2 Delivery O2 Flow Rate FiO2 06/28/20 10:00 84 25 117/72 (87) 96 Ventilator 06/28/20 08:00 99.2 99.2 06/27/20 15:32 15.0 Weight Weight [ ] Input and Output Intake and Output Intake and Output 06/28/20 07:00 Intake Total 1295 ml Output Total 3565 ml Balance -2270 ml Intake Oral 0 ml IV Total 1295 ml Output Urine Total 3565 ml Laboratory Labs Laboratory Tests Test 06/28/20 05:30 06/28/20 08:10 White Blood Count 9.7 x10^3/uL (4.0-11.0) Red Blood Count 3.22 x10^6/uL (3.50-5.40) Hemoglobin 9.7 g/dL (12.0-15.5) Hematocrit 29.2 % (36.0-47.0) Mean Corpuscular Volume 91 fL (79-100) Mean Corpuscular Hemoglobin 30 pg (25-35) Mean Corpuscular Hemoglobin Concent 33 g/dL (31-37) Red Cell Distribution Width 12.9 % (11.5-14.5) Platelet Count 325 x10^3/uL (140-400) Neutrophils (%) (Auto) 71 % (31-73) Lymphocytes (%) (Auto) 21 % (24-48) Monocytes (%) (Auto) 5 % (0-9) Eosinophils (%) (Auto) 3 % (0-3) Basophils (%) (Auto) 1 % (0-3) Neutrophils # (Auto) 6.9 x10^3/uL (1.8-7.7) Lymphocytes # (Auto) 2.1 x10^3/uL (1.0-4.8) Monocytes # (Auto) 0.5 x10^3/uL (0.0-1.1) Eosinophils # (Auto) 0.2 x10^3/uL (0.0-0.7) Basophils # (Auto) 0.1 x10^3/uL (0.0-0.2) Sodium Level 138 mmol/L (136-145) Potassium Level 4.2 mmol/L (3.5-5.1) Chloride Level 103 mmol/L (98-107) Carbon Dioxide Level 25 mmol/L (21-32) Anion Gap 10 (6-14) Blood Urea Nitrogen 15 mg/dL (7-20) Creatinine 0.6 mg/dL (0.6-1.0) Estimated GFR (Cockcroft-Gault) 103.0 Glucose Level 91 mg/dL (70-99) Calcium Level 8.5 mg/dL (8.5-10.1) O2 Saturation 95 % (92-99) Arterial Blood pH 7.47 (7.35-7.45) Arterial Blood pCO2 at Patient Temp 31 mmHg (35-46) Arterial Blood pO2 at Patient Temp 73 mmHg (75-108) Arterial Blood HCO3 22 mmol/L (21-28) Arterial Blood Base Excess -1 mmol/L (-3-3) FiO2 40% Microbiology Micro Microbiology 06/17/20 Blood Culture - Final, Complete NO GROWTH AFTER 5 DAYS Physical Exam HEENT: Neck Supple W Full Motion Chest: Symmetric LUNGS: Other (trach in place with vent) Heart: RRR (SR with PVCs) Abdomen: Other (soft, PEG) Extremities: No Edema Neurology: other (Alert but no purposeful movements, off sedation) Assessment Assessment 1. OOH cardiopulmonary arrest: initially with VT, shock, then asystole. at least 2 pulseless events, unclear duration to ROSC but significantly prolonged per staff with spouse giving about 10 min CPR himself. Received amiodarone. She does not have any known hx of CAD/arrhythmias 2. Acute respiratory failure with possible pneumonia: negative for PE 3. Severe NICM: EF 25%. No significant CAD per LHC 4. Right pneumothorax: due to chest compression, resolved 5. ADHD: on adderral but negative on tox screen 6. hypothyroidism: on replacement 7. Marijuana use: + UDS 8. Anoxic encephalopathy: neurology following 9. Acute systolic CHF: compensated Recommendations 1. No significant arrhythmias. Continue amiodarone, coreg. Start on lisinopril 2. ASA and statin. Wt stable, UOP excellent. Lasix PRN 3. Poor prognosis with significantly prolonged downtime. No meaningful neurological improvement. Discussed with spouse. Consider palliative care 4. Supportive care possible H transfer. Justicifation of Admission Dx: Justifications for Admission: Justification of Admission Dx: N/A SHADIA CARRION MD 06/28/20 1553: CARDIO Progress Notes Plan Plan Patient seen and examined. Agree with above nurse practitioner note. She is breathing on her own. Spoke with the at bedside. JESSE ANTOINE APRN Jun 28, 2020 10:38 SHADIA CARRION MD Jun 28, 2020 15:53
[2020-06-28] MEDS ORDERED: HYDROcodon/APAP 7.5/325MG ORAL 15 ML SOLUTION PEG ONE (12:30)
--- NOTE | 2020-06-28 13:18 | PDOC ---
[employer] PROGRESS NOTE Date of Service DOS: DATE: 06/28/20 TIME: 13:16 Chief Complaint Chief Complaint Cardiac arrest with resuscitation and probable pneumonia, sternal fracture and pneumothorax secondary to CPR, leukocytosis, electrolyte disturbance, hypokalemia, lactic acidosis, elevated troponin. History of Present Illness History of Present Illness 06/28/2020 Patient seen and examined in the ICU She is now on spontaneous respirations with 40% oxygen and 12 of pressure support I discussed with her Edis Discussed with pulmonary nurse practitioner Chart reviewed Discussed with RN She remains critically ill but slowly improving although I am concerned she could have a brain injury She is opening her eyes and yawning moving a little bit but not making any meaningful eye contact 06/27/2020 Patient seen and examined in the ICU She got her tracheostomy yesterday afternoon Her Edis is here and her son Stephen is also here I discussed the case at length with them explaining what to expect in the future and prognosis Chart reviewed Discussed with RN 06/26/2020 Patient seen and examined in the ICU She remains intubated Going for tracheostomy today at 230 Vent settings as follows; AC/18/500/40 percent with 5 of PEEP She is on PPN Sedated with Versed and fentanyl Chart reviewed Discussed with her Discussed with RN She remains critically ill 06/25/2020 Patient seen and examined in the ICU She remains intubated Discussed with RN Discussed with neurologist Vent settings as follows AC/18/500/40 percent with 5 of PEEP She has a tracheostomy that is clean dry and intact Family present She remains critically ill The patient is a pleasant 59-year-old female who had COVID-19 two months ago. She had a witnessed cardiac arrest today. The family started CPR, they called the ambulance. She has now been resuscitated and intubated. She is currently being examined in the ER where she is starting to have some posturing. She is not really responding to pain either, but her pupils are reactive. 06/24: Patient seen in ICU. On vent, FiO2 40%, PEEP 5. I believe she has anoxic encephalopathy. No purposeful movements, and unsafe off sedation. I believe family is to discuss possible withdrawal of care soon, versus further aggressive treatment with trach and PEG. Discussed with RN. 06/23: Afebrile. On vent with FiO2 40%, PEEP 5. She is restless, no purposeful movements off sedation. Discussed with RN, continue to try to wean off vent. 06/22: No acute events overnight. Afebrile. On vent FiO2 40%, PEEP 5. Working towards extubation. Charts and labs reviewed, continue current medical management. 06/21: Patient narcisa in ICU on ventilator. FiO2 40%, PEEP 5%. She is afebrile. Discussed with RN, no acute vents overnight. Charts and labs reviewed. Continue antibiotic treatment with Zosyn. 06/20: Patient seen in ICU. She remains on ventilator, FiO2 40%, PEEP 5. Afebrile. No acute events overnight. Echocardiogram obtained, showing mildly dilated left ventricle with global hypokinesis, estimated ejection fraction 25%. 06/19: Patient seen in ICU. On ventilator, FiO2 40%, PEEP 5. Continue IV Zosyn. Follow neurology and cardiology recommendations. Chest tube management and vent management per pulmonology. 06/18: Patient seen in ICU. Afebrile. Ventilated, FiO2 40%, PEEP 5. Continue antibiotic coverage. Charts and labs reviewed. Discussed with RN, no acute events overnight. COVID-19 negative. Echocardiogram pending. Vitals/I&O Vitals/I&O: Vital Signs Date Time Temp Pulse Resp B/P (MAP) Pulse Ox O2 Delivery O2 Flow Rate FiO2 06/28/20 13:00 85 18 140/79 (99) 95 Ventilator 06/28/20 12:00 99.3 99.3 06/27/20 15:32 15.0 I & O 06/27/20 06/27/20 06/28/20 15:00 23:00 07:00 Intake Total 0 ml 765 ml 530 ml Output Total 1365 ml 850 ml 1350 ml Balance -1365 ml -85 ml -820 ml Physical Exam Physical Exam: GENERAL: Opens eyes transiently, does not follow any commands, not in distress. HEENT: Both pupils are round and reacting. No conjunctival lesion. NECK: Supple. Trach present LUNGS: Decreased breath sounds bilaterally. HEART: S1, S2, regular. No gallop or murmur. ABDOMEN: Soft, nontender. No organomegaly.peg tube + EXTREMITIES: No edema or cyanosis. toe amputation of the Rt foot,healed scars SKIN: Unremarkable. NEUROLOGICAL: Opens eyes transiently does not follow any commands General: No acute distress Heart: Regular rate, Normal S1, Normal S2 Lungs: Clear Abdomen: Soft, No hepatosplenomegaly Extremities: No cyanosis Skin: No rashes, No breakdown Labs Labs: Laboratory Tests Test 06/28/20 05:30 06/28/20 08:10 White Blood Count 9.7 x10^3/uL (4.0-11.0) Red Blood Count 3.22 x10^6/uL (3.50-5.40) Hemoglobin 9.7 g/dL (12.0-15.5) Hematocrit 29.2 % (36.0-47.0) Mean Corpuscular Volume 91 fL (79-100) Mean Corpuscular Hemoglobin 30 pg (25-35) Mean Corpuscular Hemoglobin Concent 33 g/dL (31-37) Red Cell Distribution Width 12.9 % (11.5-14.5) Platelet Count 325 x10^3/uL (140-400) Neutrophils (%) (Auto) 71 % (31-73) Lymphocytes (%) (Auto) 21 % (24-48) Monocytes (%) (Auto) 5 % (0-9) Eosinophils (%) (Auto) 3 % (0-3) Basophils (%) (Auto) 1 % (0-3) Neutrophils # (Auto) 6.9 x10^3/uL (1.8-7.7) Lymphocytes # (Auto) 2.1 x10^3/uL (1.0-4.8) Monocytes # (Auto) 0.5 x10^3/uL (0.0-1.1) Eosinophils # (Auto) 0.2 x10^3/uL (0.0-0.7) Basophils # (Auto) 0.1 x10^3/uL (0.0-0.2) Sodium Level 138 mmol/L (136-145) Potassium Level 4.2 mmol/L (3.5-5.1) Chloride Level 103 mmol/L (98-107) Carbon Dioxide Level 25 mmol/L (21-32) Anion Gap 10 (6-14) Blood Urea Nitrogen 15 mg/dL (7-20) Creatinine 0.6 mg/dL (0.6-1.0) Estimated GFR (Cockcroft-Gault) 103.0 Glucose Level 91 mg/dL (70-99) Calcium Level 8.5 mg/dL (8.5-10.1) O2 Saturation 95 % (92-99) Arterial Blood pH 7.47 (7.35-7.45) Arterial Blood pCO2 at Patient Temp 31 mmHg (35-46) Arterial Blood pO2 at Patient Temp 73 mmHg (75-108) Arterial Blood HCO3 22 mmol/L (21-28) Arterial Blood Base Excess -1 mmol/L (-3-3) FiO2 40% Assessment and Plan Assessmemt and Plan Problems Medical Problems: (1) Cardiac arrest Status: Acute (2) Fracture of ribs, multiple Status: Acute (3) Hyperglycemia Status: Acute (4) Pneumonia Status: Acute (5) Pneumothorax, right Status: Acute (6) Sternal fracture Status: Acute (7) VF (ventricular fibrillation) Status: Acute Cardiac arrest with resuscitation and probable pneumonia, sternal fracture and pneumothorax secondary to CPR, leukocytosis, electrolyte disturbance, hypokalemia, lactic acidosis, elevated troponin. Plan ICU monitoring Continue spontaneous ventilation with 12 of pressure support and 40% FiO2 She is going to need aggressive physical therapy occupational therapy speech therapy etc. Tracheostomy care PEG feeds We will likely need long-term acute care for a few weeks Home meds DVT prophylaxis Full code Appreciate subspecialist input Long-term prognosis guarded this could take months before we know her new baseline CC time 32-minute Comment Review of Relevant I have reviewed the following items afua (where applicable) has been applied. Medications: Current Medications Medications (Trade) Dose Ordered Sig/Rosalio Route PRN Reason Start Time Stop Time Status Last Admin Dose Admin Acetaminophen/ Hydrocodone Bitart (Lortab 7.5-325/ 15ml Oral Solution) 10 ml 1X ONCE PEG 06/28/20 12:30 06/28/20 12:31 DC 06/28/20 12:37 Justifications for Admission Other Justification HUSSEIN GOODWIN III DO Jun 28, 2020 13:18
[2020-06-28] MEDS: fentaNYL PF VIAL 100 MCG/2 ML VIAL IVP PRN ×3 (14:22→23:59)
--- NOTE | 2020-06-28 16:01 | NUR ---
SS following up with discharge planning. SS reviewed pt chart and discussed with pt RN. Pt is currently on the vent at 40%. COVID19 negative. Trach and Peg in place. SS phoned and faxed clinical updates to [facility], ; fax [phone]. SS received phone contact from [facility] stating that there corporate has concerns about pt's insurance. SS was notified that pt's insurance terms September 13, 2020, and pt has a $[id number] deductible and a $[id number] out of pocket. Deloris from [facility] reported that she would contact pt's spouse and discuss. SS will continue to follow for discharge planning.
[2020-06-28] MEDS: ATORVASTATIN CALCIUM 20 MG TABLET PO SCH (20:34)
[2020-06-28] MEDS: ENOXAPARIN 40 MG/0.4 ML SYRINGE. SQ SCH (20:34)
[2020-06-28] MEDS: DEXMEDETOMIDINE 400 MCG in IV NORMAL SALINE 100ML 96 ML IV PRN (22:00)
--- NOTE | 2020-06-28 22:00 | NUR ---
Patient continuous to be restless, squirming in bed and getting both legs out of the bed--does not appear to be purposeful. Starting low dose Precedex (0.2MCG/KG/MIN) for sedation.
[2020-06-29] VITALS (22 sets, daily range): BP systolic 95–152; BP diastolic 52–80
--- NOTE | 2020-06-29 05:07 | RAD ---
EXAM: AP View of the chest DATE: 06/29/2020 3:26 AM INDICATION: Reason: resp. failure 106 / Spl. Instructions: / History: COMPARISON: 06/26/2020 06/25/2020 FINDINGS: Tracheostomy tube tip terminates approximately 3 cm above the guillermo. Right subclavian vascular michelle ter tip projects over the right atrium. The heart is not enlarged. Mediastinal and hilar contours are stable. Small left pleural effusion. Left lung base opacities likely consolidative process pneumonia. IMPRESSION: Left lung base opacities likely consolidative process such as pneumonia. Small left pleural effusion. Electronically signed by: Vicente Hester MD (06/29/2020 5:05 AM) KARLOS
[2020-06-29] MEDS: DEXMEDETOMIDINE 400 MCG in IV NORMAL SALINE 100ML 96 ML IV PRN (06:11)
[2020-06-29] MEDS: LEVOTHYROXINE 75 MCG TABLET PO SCH (06:11)
[2020-06-29] MEDS: IPRATRPIUM/ALBUTEROL 0.5/2.5MG 3 ML NEBU. NEB SCH ×4 (07:46→20:00)
--- NOTE | 2020-06-29 08:28 | PDOC ---
Infectious Disease Note Subjective: Subjective Patient remains on vent Does not follow any commands remains the same Had T-max 100.6 yesterday Discussed with RN Vital Signs: Vital Signs Vital Signs Date Time Temp Pulse Resp B/P (MAP) Pulse Ox O2 Delivery O2 Flow Rate FiO2 06/29/20 07:47 95 Ventilator 06/29/20 07:00 76 24 131/64 (86) 06/29/20 05:00 98.7 98.7 Physical Exam: PHYSICAL EXAM GENERAL: Opens eyes transiently, does not follow any commands, not in distress. HEENT: Both pupils are round and reacting. No conjunctival lesion. NECK: Supple. Trach present LUNGS: Decreased breath sounds bilaterally. HEART: S1, S2, regular. No gallop or murmur. ABDOMEN: Soft, nontender. No organomegaly.peg tube + EXTREMITIES: No edema or cyanosis. toe amputation of the Rt foot,healed scars SKIN: Unremarkable. NEUROLOGICAL: Opens eyes transiently does not follow any commands Medications: Inpatient Meds: Current Medications Medications (Trade) Dose Ordered Sig/[facility] Start Time Stop Time Status Last Admin Dose Admin Acetaminophen/ Hydrocodone Bitart (Lortab 7.5-325/ 15ml Oral Solution) 10 ml 1X ONCE 06/28/20 12:30 06/28/20 12:31 DC 06/28/20 12:37 10 ML Albuterol/ Ipratropium (Duoneb) 3 ml RTQID 06/18/20 20:00 06/29/20 07:46 3 ML Amino Acids/ Glycerin/ Electrolytes 1,000 ml @ 80 mls/hr [id number] 06/25/20 17:30 06/28/20 11:35 DC 06/27/20 20:50 80 MLS/HR Amiodarone HCl (Cordarone) 400 mg DAILY 06/20/20 09:00 06/28/20 08:18 400 MG Amiodarone HCl 150 mg/Dextrose 103 ml @ 618 mls/hr 1X ONCE 06/17/20 07:00 06/17/20 07:09 DC 06/17/20 07:00 618 MLS/HR Amiodarone HCl 450 mg/Dextrose 259 ml @ 33 mls/hr 1X ONCE 06/17/20 07:00 06/17/20 14:50 DC Aspirin (Aspirin Chewable) 81 mg 1X ONCE 06/19/20 15:30 06/19/20 15:37 DC 06/19/20 15:57 81 MG Atorvastatin Calcium (Lipitor) 20 mg QHS 06/19/20 21:00 06/28/20 20:34 20 MG Atropine Sulfate (ATROPINE 0.5mg SYRINGE) 0.5 mg PRN Q5MIN PRN 06/21/20 10:45 Bupivacaine HCl (Sensorcaine Mpf 0.5%) 30 ml STK-MED ONCE 06/26/20 12:19 06/26/20 12:19 DC Buspirone HCl (Buspar) 30 mg Q8H 06/17/20 12:00 06/17/20 12:39 DC 06/17/20 12:31 30 MG Carvedilol (Coreg) 3.125 mg BIDWMEALS 06/19/20 17:00 06/28/20 17:22 3.125 MG Cellulose (Surgicel Fibrillar 1x2) 1 each STK-MED ONCE 06/26/20 13:25 06/26/20 13:25 DC 06/26/20 13:22 1 EACH Dexamethasone Sodium Phosphate (Decadron) 4 mg STK-MED ONCE 06/26/20 13:13 06/26/20 13:14 DC Dexmedetomidine HCl 400 mcg/ Sodium Chloride 100 ml @ 0 mls/hr CONT PRN 06/21/20 10:45 06/29/20 06:11 15.1 MLS/HR Enoxaparin Sodium (Lovenox 40mg Syringe) 40 mg Q24H 06/18/20 21:00 06/24/20 20:46 40 MG Famotidine (Pepcid Vial) 20 mg BID 06/18/20 21:00 06/28/20 20:34 20 MG Fentanyl Citrate (Fentanyl 2ml Vial) 50 mcg PRN Q2HR PRN 06/23/20 16:45 06/28/20 23:59 50 MCG Furosemide (Lasix) 40 mg 1X ONCE 06/20/20 13:30 06/20/20 13:31 DC 06/20/20 14:38 40 MG Glycerin/ Hypromellose/ Polyethylene (Artificial Tears) 1 drop PRN Q15MIN PRN 06/17/20 12:00 06/17/20 12:39 DC Heparin Sodium (Porcine) (Heparin Sodium) 2,500 unit 1X ONCE 06/25/20 15:15 06/25/20 15:16 DC 06/25/20 15:09 2,500 UNIT Heparin Sodium/ Sodium Chloride (HEPARIN for ARTERIAL LINE FLUSH) 1,000 unit 1X ONCE 06/25/20 15:15 06/25/20 15:16 DC 06/25/20 15:09 1,000 UNIT Info (CONTRAST GIVEN -- Rx MONITORING) 1 each PRN DAILY PRN 06/17/20 08:15 06/19/20 08:14 DC Iohexol (Omnipaque 300 Mg/ml) 30 ml 1X ONCE 06/25/20 15:15 06/25/20 15:16 DC 06/25/20 15:09 30 ML Iohexol (Omnipaque 350 Mg/ml) 100 ml 1X ONCE 06/17/20 08:15 06/17/20 08:16 DC 06/17/20 08:17 100 ML Levothyroxine Sodium (Synthroid) 75 mcg DAILY06 06/18/20 21:00 06/29/20 06:11 75 MCG Lidocaine HCl (Lidocaine 1% 20ml Vial) 20 ml 1X ONCE 06/17/20 09:15 06/17/20 09:20 DC 06/17/20 09:15 20 ML Lidocaine HCl (Lidocaine Pf 2% Vial) 5 ml STK-MED ONCE 06/27/20 09:54 06/27/20 09:54 DC Lidocaine HCl (Xylocaine-Mpf 1% 2ml Vial) 2 ml 1X ONCE 06/25/20 15:15 06/25/20 15:16 DC 06/25/20 15:09 2 ML Lidocaine HCl (Xylocaine-Mpf 1% 5ml Vial) 5 ml STK-MED ONCE 06/17/20 09:26 06/17/20 09:26 DC Lisinopril (Prinivil) 5 mg DAILY 06/29/20 09:00 Magnesium Sulfate/ Dextrose 100 ml @ 100 mls/hr 1X ONCE 06/17/20 12:00 06/17/20 12:39 DC 06/17/20 12:22 100 MLS/HR Midazolam HCl 100 ml @ 0 mls/hr CONT PRN 06/25/20 11:45 06/28/20 03:00 10 MLS/HR Midazolam HCl (Versed) 5 mg Q1HR PRN 06/17/20 12:45 06/18/20 19:57 5 MG Nitroglycerin (Nitroglycerin) 200 mcg 1X ONCE 06/25/20 15:15 06/25/20 15:16 DC 06/25/20 15:09 200 MCG Ondansetron HCl (Zofran) 4 mg STK-MED ONCE 06/26/20 13:13 06/26/20 13:13 DC Pantoprazole Sodium (PROTONIX VIAL for IV PUSH) 40 mg DAILY 06/18/20 09:00 06/17/20 12:39 DC Piperacillin Sod/ Tazobactam Sod (Zosyn Per Pharmacy) 1 each PRN DAILY PRN 06/17/20 08:45 06/27/20 11:36 DC Piperacillin Sod/ Tazobactam Sod 3.375 gm/Sodium Chloride 50 ml @ 100 mls/hr Q6H 06/17/20 16:00 06/27/20 11:30 DC 06/27/20 05:31 100 MLS/HR Piperacillin Sod/ Tazobactam Sod 4.5 gm/Sodium Chloride 100 ml @ 200 mls/hr 1X ONCE 06/17/20 12:15 06/17/20 12:44 Cancel Potassium Bicarbonate (Potassium Effervescent Tablet) 40 meq 1X ONCE 06/18/20 09:45 06/18/20 09:48 DC 06/18/20 10:00 40 MEQ Potassium Chloride/Water 100 ml @ 100 mls/hr Q1H 06/25/20 18:00 06/25/20 19:59 DC 06/25/20 18:46 100 MLS/HR Prochlorperazine Edisylate (Compazine) 5 mg PACU PRN PRN 06/27/20 07:00 06/28/20 06:59 DC Propofol (Diprivan) 200 mg STK-MED ONCE 06/27/20 09:53 06/27/20 09:54 DC Ringer's Solution 1,000 ml @ 30 mls/hr Q24H 06/27/20 07:00 06/27/20 18:59 DC 06/27/20 08:39 30 MLS/HR Rocuronium Colony (Zemuron) 50 mg STK-MED ONCE 06/26/20 11:37 06/26/20 11:38 DC Sevoflurane (Ultane) 30 ml STK-MED ONCE 06/26/20 13:37 06/26/20 13:38 DC Sodium Chloride 500 ml @ 500 mls/hr 1X PRN PRN 06/21/20 10:45 Vecuronium Colony (Norcuron Bolus) 10 mg PRN Q1HR PRN 06/17/20 12:00 06/17/20 12:39 DC Verapamil HCl (Verapamil) 2.5 mg 1X ONCE 06/25/20 15:15 06/25/20 15:16 DC 06/25/20 15:09 2.5 MG Objective: Assessment: 1. Cardiopulmonary arrest at home. s/p cardiac cath , normal coronaries 2. Leukocytosis, likely reactive. resolved 3. Lactic acidosis from #1. 4. Respiratory failure. suspected aspiration; status post trach placement 5. Anoxic Encephalopathy 6. Hypertension. 7. Pneumothorax.s/p CTS, 8. Rib fracture and sternal fracture. 9. Anemia 10. S/P Peg tube placement Plan: Plan of Care Restart Zosyn covid neg cultures neg cont supportive care Discussed with at bedside D/W SAÚL MAYES MD Jun 29, 2020 08:28
--- NOTE | 2020-06-29 08:40 | PDOC ---
PROGRESS NOTES Date of Service DATE: 06/29/20 TIME: 08:39 Assessment Problems Medical Problems: (1) Cardiac arrest Status: Acute (2) Fracture of ribs, multiple Status: Acute (3) Hyperglycemia Status: Acute (4) Pneumonia Status: Acute (5) Pneumothorax, right Status: Acute (6) Sternal fracture Status: Acute (7) VF (ventricular fibrillation) Status: Acute Anoxic encephalopathy, ventricular fibrillation and asystole, improving, but not making much more progress Negative for Covid Status-post trach and PEG Trialed off vent 06/28 Plan Supportive care Holding on additional neurological tests Family wants to try 1 month at [facility] Discussed with family Subjective None Objective Vital Signs Date Time Temp Pulse Resp B/P (MAP) Pulse Ox O2 Delivery O2 Flow Rate FiO2 06/29/20 07:47 95 Ventilator 06/29/20 07:00 76 24 131/64 (86) 06/29/20 05:00 98.7 98.7 Intake and Output 06/29/20 07:00 Intake Total 2844 ml Output Total 2645 ml Balance 199 ml IV Total 544 ml Tube Feeding 1650 ml Other 650 ml Output Urine Total 2645 ml Gastric Drainage Total 0 ml PHYSICAL EXAM On ventilator PERRL. EOMI. CN: no focal findings. Muscle tone: normal. Muscle strength: Moving arms and legs, thrusts tongue DTR: 1+ Plantar reflex: Flexor Gait: not examined. Sensory exam: Not cooperative Cerebellar: Not cooperative Review of Relevant I have reviewed the following items afua (where applicable) has been applied. Labs Laboratory Tests Test 06/27/20 09:05 06/28/20 05:30 06/28/20 08:10 O2 Saturation 95 % (92-99) 95 % (92-99) Arterial Blood pH 7.48 (7.35-7.45) 7.47 (7.35-7.45) Arterial Blood pCO2 at Patient Temp 30 mmHg (35-46) 31 mmHg (35-46) Arterial Blood pO2 at Patient Temp 75 mmHg (75-108) 73 mmHg (75-108) Arterial Blood HCO3 22 mmol/L (21-28) 22 mmol/L (21-28) Arterial Blood Base Excess -1 mmol/L (-3-3) -1 mmol/L (-3-3) FiO2 40 40% White Blood Count 9.7 x10^3/uL (4.0-11.0) Red Blood Count 3.22 x10^6/uL (3.50-5.40) Hemoglobin 9.7 g/dL (12.0-15.5) Hematocrit 29.2 % (36.0-47.0) Mean Corpuscular Volume 91 fL (79-100) Mean Corpuscular Hemoglobin 30 pg (25-35) Mean Corpuscular Hemoglobin Concent 33 g/dL (31-37) Red Cell Distribution Width 12.9 % (11.5-14.5) Platelet Count 325 x10^3/uL (140-400) Neutrophils (%) (Auto) 71 % (31-73) Lymphocytes (%) (Auto) 21 % (24-48) Monocytes (%) (Auto) 5 % (0-9) Eosinophils (%) (Auto) 3 % (0-3) Basophils (%) (Auto) 1 % (0-3) Neutrophils # (Auto) 6.9 x10^3/uL (1.8-7.7) Lymphocytes # (Auto) 2.1 x10^3/uL (1.0-4.8) Monocytes # (Auto) 0.5 x10^3/uL (0.0-1.1) Eosinophils # (Auto) 0.2 x10^3/uL (0.0-0.7) Basophils # (Auto) 0.1 x10^3/uL (0.0-0.2) Sodium Level 138 mmol/L (136-145) Potassium Level 4.2 mmol/L (3.5-5.1) Chloride Level 103 mmol/L (98-107) Carbon Dioxide Level 25 mmol/L (21-32) Anion Gap 10 (6-14) Blood Urea Nitrogen 15 mg/dL (7-20) Creatinine 0.6 mg/dL (0.6-1.0) Estimated GFR (Cockcroft-Gault) 103.0 Glucose Level 91 mg/dL (70-99) Calcium Level 8.5 mg/dL (8.5-10.1) Microbiology 06/17/20 Blood Culture - Final, Complete NO GROWTH AFTER 5 DAYS Medications Current Medications Amiodarone HCl 150 mg/Dextrose 103 ml @ 618 mls/hr 1X ONCE IV Last administered on 06/17/20at 07:00; Start 06/17/20 at 07:00; Stop 06/17/20 at 07:09; Status DC Amiodarone HCl 450 mg/Dextrose 259 ml @ 33 mls/hr 1X ONCE IV ; Start 06/17/20 at 07:00; Stop 06/17/20 at 14:50; Status DC Sodium Chloride 1,000 ml @ 1,000 mls/hr 1X ONCE IV Last administered on 06/17/20at 08:11; Start 06/17/20 at 07:15; Stop 06/17/20 at 08:14; Status DC Midazolam HCl 100 ml @ 0 mls/hr 1X ONCE IV ; Start 06/17/20 at 07:15; Stop 06/17/20 at 07:16; Status DC Midazolam HCl (Versed) 5 mg STK-MED ONCE .ROUTE ; Start 06/17/20 at 07:17; Stop 06/17/20 at 07:17; Status DC Iohexol (Omnipaque 300 Mg/ml) 75 ml 1X ONCE IV Last administered on 06/17/20at 08:17; Start 06/17/20 at 08:15; Stop 06/17/20 at 08:16; Status DC Iohexol (Omnipaque 350 Mg/ml) 100 ml 1X ONCE IV Last administered on 06/17/20at 08:17; Start 06/17/20 at 08:15; Stop 06/17/20 at 08:16; Status DC Info (CONTRAST GIVEN -- Rx MONITORING) 1 each PRN DAILY PRN MC SEE COMMENTS; Start 06/17/20 at 08:15; Stop 06/19/20 at 08:14; Status DC Sodium Chloride 1,000 ml @ 1,000 mls/hr 1X ONCE IV Last administered on 06/17/20at 08:25; Start 06/17/20 at 08:15; Stop 06/17/20 at 09:14; Status DC Potassium Chloride/Water 100 ml @ 50 mls/hr 1X ONCE IV Last administered on 06/17/20at 10:16; Start 06/17/20 at 09:00; Stop 06/17/20 at 10:59; Status DC Piperacillin Sod/ Tazobactam Sod (Zosyn Per Pharmacy) 1 each PRN DAILY PRN MC SEE COMMENTS; Start 06/17/20 at 08:45; Stop 06/27/20 at 11:36; Status DC Piperacillin Sod/ Tazobactam Sod 4.5 gm/Sodium Chloride 100 ml @ 200 mls/hr 1X ONCE IV Last administered on 06/17/20at 10:15; Start 06/17/20 at 08:45; Stop 06/17/20 at 09:14; Status DC Sodium Chloride 1,000 ml @ 125 mls/hr Q8H IV Last administered on 06/17/20at 23:39; Start 06/17/20 at 09:00; Stop 06/18/20 at 08:59; Status DC Propofol (Diprivan) 200 mg 1X ONCE IV Last administered on 06/17/20at 09:00; Start 06/17/20 at 09:00; Stop 06/17/20 at 09:01; Status DC Propofol 100 ml @ As Directed STK-MED ONCE IV ; Start 06/17/20 at 09:05; Stop 06/17/20 at 09:05; Status DC Lidocaine HCl (Lidocaine 1% 20ml Vial) 20 ml 1X ONCE INJ Last administered on 06/17/20at 09:15; Start 06/17/20 at 09:15; Stop 06/17/20 at 09:20; Status DC Lidocaine HCl (Xylocaine-Mpf 1% 5ml Vial) 5 ml STK-MED ONCE .ROUTE ; Start 06/17/20 at 09:26; Stop 06/17/20 at 09:26; Status DC Sodium Chloride 1,000 ml @ 1,000 mls/hr 1X ONCE IV Last administered on 06/17/20at 10:15; Start 06/17/20 at 10:15; Stop 06/17/20 at 11:14; Status DC Propofol 100 ml @ 3.819 mls/ hr CONT PRN IV PER PROTOCOL Last administered on 06/25/20at 06:12; Start 06/17/20 at 10:45 Fentanyl Citrate (Fentanyl 2ml Vial) 100 mcg 1X ONCE IV ; Start 06/17/20 at 12:00; Stop 06/17/20 at 12:39; Status DC Midazolam HCl (Versed) 2 mg 1X ONCE IV ; Start 06/17/20 at 12:00; Stop 06/17/20 at 12:39; Status DC Magnesium Sulfate/ Dextrose 100 ml @ 100 mls/hr 1X ONCE IV Last administered on 06/17/20at 12:22; Start 06/17/20 at 12:00; Stop 06/17/20 at 12:39; Status DC Buspirone HCl (Buspar) 30 mg Q8H NG Last administered on 06/17/20at 12:31; Start 06/17/20 at 12:00; Stop 06/17/20 at 12:39; Status DC Glycerin/ Hypromellose/ Polyethylene (Artificial Tears) 1 drop Q6HRS OU ; Start 06/17/20 at 12:00; Stop 06/17/20 at 12:39; Status DC Glycerin/ Hypromellose/ Polyethylene (Artificial Tears) 1 drop PRN Q15MIN PRN OU DRY EYE; Start 06/17/20 at 12:00; Stop 06/17/20 at 12:39; Status DC Heparin Sodium (Porcine) (Heparin Sodium) 5,000 unit BID SQ ; Start 06/17/20 at 21:00; Stop 06/17/20 at 12:39; Status DC Pantoprazole Sodium (PROTONIX VIAL for IV PUSH) 40 mg DAILY IVP ; Start 06/18/20 at 09:00; Stop 06/17/20 at 12:39; Status DC Fentanyl Citrate 30 ml @ 0 mls/hr CONT PRN IV PER PROTOCOL.; Start 06/17/20 at 12:00; Stop 06/17/20 at 12:39; Status DC Propofol 100 ml @ 0 mls/hr CONT PRN IV PER PROTOCOL.; Start 06/17/20 at 12:00; Stop 06/17/20 at 12:39; Status DC Midazolam HCl 100 ml @ 0 mls/hr CONT PRN IV PER PROTOCOL; Start 06/17/20 at 12:00; Stop 06/17/20 at 12:39; Status DC Vecuronium [place] (Norcuron Bolus) 10 mg PRN Q1HR PRN IV SHIVERING; Start 06/17/20 at 12:00; Stop 06/17/20 at 12:39; Status DC Piperacillin Sod/ Tazobactam Sod 4.5 gm/Sodium Chloride 100 ml @ 200 mls/hr 1X ONCE IV ; Start 06/17/20 at 12:15; Stop 06/17/20 at 12:44; Status Cancel Midazolam HCl (Versed) 5 mg Q1HR PRN IV SEDATION Last administered on 06/18/20 19:57; Start 06/17/20 at 12:45 Fentanyl Citrate (Fentanyl 2ml Vial) 100 mcg Q1HR IVP Last administered on 06/17/20 18:55; Start 06/17/20 at 13:00; Stop 06/17/20 at 23:41; Status DC Piperacillin Sod/ Tazobactam Sod 3.375 gm/Sodium Chloride 50 ml @ 100 mls/hr Q6H IV Last administered on 06/27/20 05:31; Start 06/17/20 at 16:00; Stop 06/27/20 at 11:30; Status DC Potassium Bicarbonate (Potassium Effervescent Tablet) 40 meq 1X ONCE NG Last administered on 06/18/20 10:00; Start 06/18/20 at 09:45; Stop 06/18/20 at 09:48; Status DC Albuterol/ Ipratropium (Duoneb) 3 ml RTQID NEB Last administered on 06/29/20 07:46; Start 06/18/20 at 20:00 Famotidine (Pepcid Vial) 20 mg BID IVP Last administered on 06/28/20 20:34; Start 06/18/20 at 21:00 Enoxaparin Sodium (Lovenox 40mg Syringe) 40 mg Q24H SQ Last administered on 06/24/20 20:46; Start 06/18/20 at 21:00 Levothyroxine Sodium (Synthroid) 75 mcg DAILY06 PO Last administered on 06/29/20 06:11; Start 06/18/20 at 21:00 Fentanyl Citrate 30 ml @ 0 mls/hr CONT PRN IV SEE PROTOCOL Last administered on 06/28/20 04:56; Start 06/18/20 at 20:15 Carvedilol (Coreg) 3.125 mg BIDWMEALS PO Last administered on 06/28/20 17:22; Start 06/19/20 at 17:00 Atorvastatin Calcium (Lipitor) 20 mg QHS PO Last administered on 06/28/20 20:34; Start 06/19/20 at 21:00 Aspirin (Aspirin Chewable) 81 mg DAILYWBKFT PO Last administered on 06/28/20 08:17; Start 06/20/20 at 08:00 Aspirin (Aspirin Chewable) 81 mg 1X ONCE PO Last administered on 06/19/20at 15:57; Start 06/19/20 at 15:30; Stop 06/19/20 at 15:37; Status DC Potassium Chloride/Water 100 ml @ 100 mls/hr 1X ONCE IV Last administered on 06/19/20at 15:57; Start 06/19/20 at 15:30; Stop 06/19/20 at 16:29; Status DC Amiodarone HCl (Cordarone) 400 mg DAILY PO Last administered on 06/28/20at 08:18; Start 06/20/20 at 09:00 Furosemide (Lasix) 40 mg 1X ONCE IVP Last administered on 06/20/20at 14:38; Start 06/20/20 at 13:30; Stop 06/20/20 at 13:31; Status DC Potassium Chloride/Water 100 ml @ 100 mls/hr 1X ONCE IV Last administered on 06/20/20at 14:39; Start 06/20/20 at 13:30; Stop 06/20/20 at 14:29; Status DC Dexmedetomidine HCl 400 mcg/ Sodium Chloride 100 ml @ 0 mls/hr CONT PRN IV PER PROTOCOL Last administered on 06/29/20at 06:11; Start 06/21/20 at 10:45 Sodium Chloride 500 ml @ 500 mls/hr 1X PRN PRN IV SEE COMMENTS; Start 06/21/20 at 10:45 Atropine Sulfate (ATROPINE 0.5mg SYRINGE) 0.5 mg PRN Q5MIN PRN IV SEE COMMENTS; Start 06/21/20 at 10:45 Fentanyl Citrate (Fentanyl 2ml Vial) 50 mcg PRN Q2HR PRN IVP PAIN Last administered on 06/28/20at 23:59; Start 06/23/20 at 16:45 Midazolam HCl 100 ml @ 0 mls/hr CONT PRN IV SEE PROTOCOL Last administered on 06/28/20at 03:00; Start 06/25/20 at 11:45 Lidocaine HCl (Xylocaine-Mpf 1% 2ml Vial) 2 ml STK-MED ONCE .ROUTE ; Start 06/25/20 at 14:21; Stop 06/25/20 at 14:21; Status DC Iohexol (Omnipaque 300 Mg/ml) 100 ml STK-MED ONCE .ROUTE ; Start 06/25/20 at 14:21; Stop 06/25/20 at 14:21; Status DC Heparin Sodium/ Sodium Chloride 1,000 ml @ As Directed STK-MED ONCE .ROUTE ; Start 06/25/20 at 14:21; Stop 06/25/20 at 14:21; Status DC Heparin Sodium (Porcine) (Heparin Sodium) 10,000 unit STK-MED ONCE .ROUTE ; Start 06/25/20 at 14:31; Stop 06/25/20 at 14:31; Status DC Verapamil HCl (Verapamil) 5 mg STK-MED ONCE .ROUTE ; Start 06/25/20 at 14:31; Stop 06/25/20 at 14:31; Status DC Nitroglycerin (Nitroglycerin) 200 mcg STK-MED ONCE .ROUTE ; Start 06/25/20 at 14:31; Stop 06/25/20 at 14:31; Status DC Nitroglycerin (Nitroglycerin) 200 mcg 1X ONCE IART Last administered on 06/25/20at 15:09; Start 06/25/20 at 15:15; Stop 06/25/20 at 15:16; Status DC Verapamil HCl (Verapamil) 2.5 mg 1X ONCE IART Last administered on 06/25/20at 15:09; Start 06/25/20 at 15:15; Stop 06/25/20 at 15:16; Status DC Heparin Sodium (Porcine) (Heparin Sodium) 2,500 unit 1X ONCE IART Last administered on 06/25/20at 15:09; Start 06/25/20 at 15:15; Stop 06/25/20 at 15:16; Status DC Heparin Sodium/ Sodium Chloride (HEPARIN for ARTERIAL LINE FLUSH) 1,000 unit 1X ONCE IART Last administered on 06/25/20at 15:09; Start 06/25/20 at 15:15; Stop 06/25/20 at 15:16; Status DC Iohexol (Omnipaque 300 Mg/ml) 30 ml 1X ONCE IART Last administered on 06/25/20at 15:09; Start 06/25/20 at 15:15; Stop 06/25/20 at 15:16; Status DC Lidocaine HCl (Xylocaine-Mpf 1% 2ml Vial) 2 ml 1X ONCE INJ Last administered on 06/25/20at 15:09; Start 06/25/20 at 15:15; Stop 06/25/20 at 15:16; Status DC Amino Acids/ Glycerin/ Electrolytes 1,000 ml @ 80 mls/hr [id number] IV Last administered on 06/27/20at 20:50; Start 06/25/20 at 17:30; Stop 06/28/20 at 11:35; Status DC Potassium Chloride/Water 100 ml @ 100 mls/hr Q1H IV Last administered on 06/25/20at 18:46; Start 06/25/20 at 18:00; Stop 06/25/20 at 19:59; Status DC Rocuronium [place] (Zemuron) 50 mg STK-MED ONCE .ROUTE ; Start 06/26/20 at 11:37; Stop 06/26/20 at 11:38; Status DC Cellulose (Surgicel Fibrillar 1x2) 1 each STK-MED ONCE .ROUTE Last administered on 06/26/20at 13:20; Start 06/26/20 at 12:19; Stop 06/26/20 at 12:19; Status DC Bupivacaine HCl (Sensorcaine Mpf 0.5%) 30 ml STK-MED ONCE .ROUTE ; Start 06/26/20 at 12:19; Stop 06/26/20 at 12:19; Status DC Ondansetron HCl (Zofran) 4 mg STK-MED ONCE .ROUTE ; Start 06/26/20 at 13:13; Stop 06/26/20 at 13:13; Status DC Dexamethasone Sodium Phosphate (Decadron) 4 mg STK-MED ONCE .ROUTE ; Start 06/26/20 at 13:13; Stop 06/26/20 at 13:14; Status DC Cellulose (Surgicel Fibrillar 1x2) 1 each STK-MED ONCE .ROUTE Last administered on 06/26/20at 13:22; Start 06/26/20 at 13:25; Stop 06/26/20 at 13:25; Status DC Sevoflurane (Ultane) 30 ml STK-MED ONCE IH ; Start 06/26/20 at 13:37; Stop 06/26/20 at 13:38; Status DC Propofol (Diprivan) 200 mg STK-MED ONCE IV ; Start 06/26/20 at 13:38; Stop 06/26/20 at 13:38; Status DC Ringer's Solution 1,000 ml @ 30 mls/hr Q24H IV Last administered on 06/27/20at 08:39; Start 06/27/20 at 07:00; Stop 06/27/20 at 18:59; Status DC Prochlorperazine Edisylate (Compazine) 5 mg PACU PRN PRN IV NAUSEA, MRX1; Start 06/27/20 at 07:00; Stop 06/28/20 at 06:59; Status DC Propofol (Diprivan) 200 mg STK-MED ONCE IV ; Start 06/27/20 at 09:53; Stop 06/27/20 at 09:54; Status DC Lidocaine HCl (Lidocaine Pf 2% Vial) 5 ml STK-MED ONCE .ROUTE ; Start 06/27/20 at 09:54; Stop 06/27/20 at 09:54; Status DC Lisinopril (Prinivil) 5 mg DAILY PO ; Start 06/29/20 at 09:00 Acetaminophen/ Hydrocodone Bitart (Lortab 7.5-325/ 15ml Oral Solution) 10 ml 1X ONCE PEG Last administered on 06/28/20at 12:37; Start 06/28/20 at 12:30; Stop 06/28/20 at 12:31; Status DC Active Scripts Active Reported Acetaminophen-Diphenhyd 500-25 (Acetaminophen/Diphenhydramine) 1 Each Tablet 1 Each PO HS PRN Naproxen 500 Mg Tablet 1 Tab PO BID PRN 30 Days Tramadol Hcl 50 Mg Tablet 50 Mg PO Q4HRS Levothyroxine Sodium 75 Mcg Tablet 1 Tab PO DAILY Adderall 20 Mg Tablet (Dextroamphetamine/Amphetamine) 20 Mg Tablet 1 Tab PO DAILY MDD 1 Tablet(s) 5 Days Prozac (Fluoxetine Hcl) 20 Mg Capsule 1 Cap PO DAILYWBKFT Vitals/I & O Vital Sign - Last 24 Hours 06/28/20 06/28/20 06/28/20 06/28/20 09:00 09:00 10:00 11:00 Pulse 76 84 85 Resp 23 25 17 B/P (MAP) 132/64 (86) 117/72 (87) 139/75 (96) Pulse Ox 97 96 96 95 O2 Delivery Ventilator Ventilator Ventilator Ventilator 06/28/20 06/28/20 06/28/20 06/28/20 11:11 12:00 12:00 12:37 Temp 99.3 99.3 Pulse 84 Resp 19 20 B/P (MAP) 147/79 (101) Pulse Ox 96 94 95 O2 Delivery Ventilator Mechanical Ventilator Ventilator Ventilator 06/28/20 06/28/20 06/28/20 06/28/20 13:00 13:37 14:00 14:22 Pulse 85 85 Resp 18 20 18 18 B/P (MAP) 140/79 (99) 129/72 (91) Pulse Ox 95 97 96 97 O2 Delivery Ventilator Ventilator Ventilator Ventilator 06/28/20 06/28/20 06/28/20 06/28/20 14:52 15:00 15:11 16:00 Pulse 94 Resp 21 B/P (MAP) 123/65 (84) Pulse Ox 95 95 96 O2 Delivery Ventilator Ventilator Ventilator Mechanical Ventilator 06/28/20 06/28/20 06/28/20 06/28/20 16:00 17:00 17:22 18:00 Temp 99.1 99.1 Pulse 100 102 102 85 Resp 14 20 18 B/P (MAP) 148/78 (101) 142/83 (102) 142/83 134/71 (92) Pulse Ox 95 95 96 O2 Delivery Ventilator Ventilator Ventilator 06/28/20 06/28/20 06/28/20 06/28/20 19:00 19:30 19:50 20:00 Temp 98.9 98.9 Pulse 90 92 95 Resp 24 24 24 B/P (MAP) 149/68 (95) 160/83 (108) Pulse Ox 96 96 97 95 O2 Delivery Ventilator Ventilator Ventilator Ventilator 06/28/20 06/28/20 06/28/20 06/28/20 20:00 20:31 21:00 21:00 Pulse 95 Resp 24 22 22 B/P (MAP) 163/83 (109) Pulse Ox 95 95 95 O2 Delivery Mechanical Ventilator Ventilator Ventilator 06/28/20 06/28/20 06/28/20 06/28/20 22:00 23:00 23:43 23:59 Pulse 92 86 Resp 22 24 22 B/P (MAP) 142/79 (100) 132/64 (86) Pulse Ox 95 95 98 95 O2 Delivery Ventilator Ventilator Ventilator Ventilator 06/28/20 06/28/20 06/29/20 06/29/20 23:59 23:59 00:29 01:00 Temp 100.6 99.6 100.6 99.6 Pulse 80 71 Resp 22 20 20 B/P (MAP) 146/70 (95) 134/68 (90) Pulse Ox 95 98 97 O2 Delivery Ventilator Mechanical Ventilator Ventilator Ventilator 06/29/20 06/29/20 06/29/20 06/29/20 02:00 03:00 04:00 04:00 Pulse 70 71 75 Resp 20 20 24 B/P (MAP) 126/68 (87) 115/60 (78) 128/64 (85) Pulse Ox 97 96 97 O2 Delivery Ventilator Ventilator Mechanical Ventilator Ventilator 06/29/20 06/29/20 06/29/20 06/29/20 04:13 05:00 06:00 07:00 Temp 98.7 98.7 Pulse 80 76 76 Resp 22 20 24 B/P (MAP) 119/66 (83) 128/68 (88) 131/64 (86) Pulse Ox 95 95 95 95 O2 Delivery Ventilator Ventilator Ventilator Ventilator 06/29/20 07:47 Pulse Ox 95 O2 Delivery Ventilator Intake and Output 0 06/28/20 06/28/20 06/29/20 15:00 23:00 07:00 Intake Total 535 ml 1047 ml 1262 ml Output Total 900 ml 1245 ml 500 ml Balance -365 ml -198 ml 762 ml Justicifation of Admission Dx: Justifications for Admission: Justification of Admission Dx: N/A JEFF FLORES MD Jun 29, 2020 08:40
--- NOTE | 2020-06-29 08:41 | PDOC ---
PULMONARY PROGRESS NOTES DATE: 06/29/20 TIME: 08:40 Subjective S/P cardiac arrest 06/17---PEA / V-fib remains on vent support 40% and PEEP of 5 S/P trach on 06/26 S/P peg 06/27 More agitated today, placed on Precedex overnight Vitals Vital Signs Date Time Temp Pulse Resp B/P (MAP) Pulse Ox O2 Delivery O2 Flow Rate FiO2 06/29/20 07:47 95 Ventilator 06/29/20 07:00 76 24 131/64 (86) 06/29/20 05:00 98.7 98.7 Lungs: Clear Cardiovascular: S1 Abdomen: Soft Extremities: No Edema Labs Laboratory Tests Test 06/27/20 09:05 06/28/20 05:30 06/28/20 08:10 O2 Saturation 95 % (92-99) 95 % (92-99) Arterial Blood pH 7.48 (7.35-7.45) 7.47 (7.35-7.45) Arterial Blood pCO2 at Patient Temp 30 mmHg (35-46) 31 mmHg (35-46) Arterial Blood pO2 at Patient Temp 75 mmHg (75-108) 73 mmHg (75-108) Arterial Blood HCO3 22 mmol/L (21-28) 22 mmol/L (21-28) Arterial Blood Base Excess -1 mmol/L (-3-3) -1 mmol/L (-3-3) FiO2 40 40% White Blood Count 9.7 x10^3/uL (4.0-11.0) Red Blood Count 3.22 x10^6/uL (3.50-5.40) Hemoglobin 9.7 g/dL (12.0-15.5) Hematocrit 29.2 % (36.0-47.0) Mean Corpuscular Volume 91 fL (79-100) Mean Corpuscular Hemoglobin 30 pg (25-35) Mean Corpuscular Hemoglobin Concent 33 g/dL (31-37) Red Cell Distribution Width 12.9 % (11.5-14.5) Platelet Count 325 x10^3/uL (140-400) Neutrophils (%) (Auto) 71 % (31-73) Lymphocytes (%) (Auto) 21 % (24-48) Monocytes (%) (Auto) 5 % (0-9) Eosinophils (%) (Auto) 3 % (0-3) Basophils (%) (Auto) 1 % (0-3) Neutrophils # (Auto) 6.9 x10^3/uL (1.8-7.7) Lymphocytes # (Auto) 2.1 x10^3/uL (1.0-4.8) Monocytes # (Auto) 0.5 x10^3/uL (0.0-1.1) Eosinophils # (Auto) 0.2 x10^3/uL (0.0-0.7) Basophils # (Auto) 0.1 x10^3/uL (0.0-0.2) Sodium Level 138 mmol/L (136-145) Potassium Level 4.2 mmol/L (3.5-5.1) Chloride Level 103 mmol/L (98-107) Carbon Dioxide Level 25 mmol/L (21-32) Anion Gap 10 (6-14) Blood Urea Nitrogen 15 mg/dL (7-20) Creatinine 0.6 mg/dL (0.6-1.0) Estimated GFR (Cockcroft-Gault) 103.0 Glucose Level 91 mg/dL (70-99) Calcium Level 8.5 mg/dL (8.5-10.1) Medications Active Scripts Medications Dose Route/Sig Max Daily Dose Days Date Category Acetaminophen-Diphenhyd 500-25 (Acetaminophen/Diphenhydramine) 1 Each Tablet 1 Each PO HS PRN 06/18/20 Reported Naproxen 500 Mg Tablet 1 Tab PO BID PRN 30 06/18/20 Reported Tramadol Hcl 50 Mg Tablet 50 Mg PO Q4HRS 06/18/20 Reported Levothyroxine Sodium 75 Mcg Tablet 1 Tab PO DAILY 06/18/20 Reported Adderall 20 Mg Tablet (Dextroamphetamine/Amphetamine) 20 Mg Tablet 1 Tab PO DAILY MDD 1 Tablet(s) 5 06/18/20 Reported Prozac (Fluoxetine Hcl) 20 Mg Capsule 1 Cap PO [id number] 06/18/20 Reported Comments CXR IMPRESSION: Left lung base opacities likely consolidative process such as pneumonia. Small left pleural effusion. Impression . IMPRESSION: 1. Acute respiratory failure secondary to [id number] cardiopulmonary arrest/ anoxic encephalopathy-- now S/P trach 2. [id number]-[id number] ventricular fibrillation and asystole leading to anoxic brain injury. 3. Anoxic encephalopathy. 4. COVID neg 5. Morbid obesity. 6. Leukocytosis--improved 7. Lactic acidosis secondary to [id number] cardiac arrest. 8. Abnormal x-ray revealing bibasilar atelectasis, infiltrates. 9. Pneumothorax secondary to CPR.resolved 10. Sternal sternal fracture secondary to CPR. 11. ? Pneumonia positive, gram-negative, gram-positive. Plan . PLAN: Continue current support with assist control ventilation, Fi02 40% PEEP 5, D/C sedation, proceed with pressure support --pressure support 12/5 as tolerated during the day, assist control at night Clinically consistent with Anoxic encephalopathy Trach 06/26/20, PEG on 06/27/20 PPN until able to start TF with PEG Follow CXR/ABG-- No changes Follow infectious disease recommendations in regards to antibiotics, placed on Zosyn Follow neurology recs Follow Cardiology recs-- post cardiac cath 06/25/20-- cath was clean w/ normal filling pressures DVT/GI PPX D/W RN and RT Social work for D/C planning --[facility] declined Critical Care Time [id number] AM PT. is FULL CODE OK to transfer to [facility] 48 hours post trach placement which is 06/28/20 NIKA GARNER MD Jun 29, 2020 08:40
[2020-06-29] MEDS: CARVEDILOL 3.125 MG TABLET. PO SCH ×2 (09:21→17:00)
[2020-06-29] MEDS: LISINOPRIL 5 MG TABLET. PO SCH (09:21)
[2020-06-29] MEDS: AMIODARONE HCL 200 MG TABLET. PO SCH ×2 (09:22→10:20)
--- NOTE | 2020-06-29 09:47 | PDOC ---
CARDIO Progress Notes Date and Time Date of Service 06/29/2020 Time of Evaluation 0900 Subjective Subjective: Other (nonverbal) Vitals Vitals Vital Signs Date Time Temp Pulse Resp B/P (MAP) Pulse Ox O2 Delivery O2 Flow Rate FiO2 06/29/20 09:22 76 131/64 06/29/20 09:02 96 Ventilator 06/29/20 07:00 24 06/29/20 05:00 98.7 98.7 Weight Weight [ ] Input and Output Intake and Output Intake and Output 06/29/20 07:00 Intake Total 2844 ml Output Total 2645 ml Balance 199 ml IV Total 544 ml Tube Feeding 1650 ml Other 650 ml Output Urine Total 2645 ml Gastric Drainage Total 0 ml Microbiology Micro Microbiology 06/17/20 Blood Culture - Final, Complete NO GROWTH AFTER 5 DAYS Physical Exam HEENT: Neck Supple W Full Motion Chest: Symmetric LUNGS: Other (trach in place with vent) Heart: RRR (SR with PVCs) Abdomen: Other (soft, PEG) Extremities: No Edema Neurology: other (Alert but no purposeful movements, off sedation) Assessment Assessment 1. OOH cardiopulmonary arrest: initially with VT, shock, then asystole. at least 2 pulseless events, unclear duration to ROSC but significantly prolonged per staff with spouse giving about 10 min CPR himself. Received amiodarone. She does not have any known hx of CAD/arrhythmias 2. Acute respiratory failure with possible pneumonia: negative for PE 3. Severe NICM: EF 25%. No significant CAD per [facility] 4. Right pneumothorax: due to chest compression, resolved 5. ADHD: on adderral but negative on tox screen 6. hypothyroidism: on replacement 7. Marijuana use: + UDS 8. Anoxic encephalopathy: neurology following 9. Acute systolic CHF: compensated Recommendations 1. No significant arrhythmias. Continue amiodarone, coreg, lisinopril. Tolerating TF 2. ASA and statin. Wt stable, UOP excellent. Lasix PRN 3. Poor prognosis with significantly prolonged downtime. No meaningful neurological improvement. Discussed with spouse. Consider palliative care 4. Supportive care possible [facility] transfer. Justicifation of Admission Dx: Justifications for Admission: Justification of Admission Dx: N/A JESSE ANTOINE APRN Jun 29, 2020 09:47
[2020-06-29] MEDS: ASPIRIN CHEWABLE 81 MG TABLET. PO SCH (10:20)
[2020-06-29] MEDS: FAMOTIDINE 20 MG/2 ML VIAL IVP SCH ×2 (10:21→20:35)
[2020-06-29] MEDS: PIPERACILLIN/TAZOBACTAM 3.375 GM in IV NORMAL SALINE 50ML 50 ML IV SCH ×2 (10:22→17:43)
--- NOTE | 2020-06-29 11:05 | PDOC ---
[employer] PROGRESS NOTE Date of Service DOS: DATE: 06/29/20 TIME: 11:03 Chief Complaint Chief Complaint Cardiac arrest with resuscitation and probable pneumonia, sternal fracture and pneumothorax secondary to CPR, leukocytosis, electrolyte disturbance, hypokalemia, lactic acidosis, elevated troponin. History of Present Illness History of Present Illness 06/29/2020 Patient seen and examined in the ICU She is still not very responsive but at the same time kind of agitated She is restless moving her arms and legs Doing a lot of tongue protrusions Opens her eyes but no meaningful eye contact present and tearful at times Nurse practitioner for pulmonary medicine Deloris is here in helpful with the patient's especially (appreciate her help) Deloris just had the patient changed over to spontaneous respirations with 12 of pressure support (agree) Chart reviewed Discussed with RN Patient remains critically ill 06/28/2020 Patient seen and examined in the ICU She is now on spontaneous respirations with 40% oxygen and 12 of pressure support I discussed with her Edis Discussed with pulmonary nurse practitioner Chart reviewed Discussed with RN She remains critically ill but slowly improving although I am concerned she could have a brain injury She is opening her eyes and yawning moving a little bit but not making any meaningful eye contact 06/27/2020 Patient seen and examined in the ICU She got her tracheostomy yesterday afternoon Her Edis is here and her son Stephen is also here I discussed the case at length with them explaining what to expect in the future and prognosis Chart reviewed Discussed with RN 06/26/2020 Patient seen and examined in the ICU She remains intubated Going for tracheostomy today at 230 Vent settings as follows; AC/18/500/40 percent with 5 of PEEP She is on PPN Sedated with Versed and fentanyl Chart reviewed Discussed with her Discussed with RN She remains critically ill 06/25/2020 Patient seen and examined in the ICU She remains intubated Discussed with RN Discussed with neurologist Vent settings as follows AC/18/500/40 percent with 5 of PEEP She has a tracheostomy that is clean dry and intact Family present She remains critically ill The patient is a pleasant 59-year-old female who had COVID-19 two months ago. She had a witnessed cardiac arrest today. The family started CPR, they called the ambulance. She has now been resuscitated and intubated. She is currently being examined in the ER where she is starting to have some posturing. She is not really responding to pain either, but her pupils are reactive. 06/24: Patient seen in ICU. On vent, FiO2 40%, PEEP 5. I believe she has anoxic encephalopathy. No purposeful movements, and unsafe off sedation. I believe family is to discuss possible withdrawal of care soon, versus further aggressive treatment with trach and PEG. Discussed with RN. 06/23: Afebrile. On vent with FiO2 40%, PEEP 5. She is restless, no purposeful movements off sedation. Discussed with RN, continue to try to wean off vent. 06/22: No acute events overnight. Afebrile. On vent FiO2 40%, PEEP 5. Working towards extubation. Charts and labs reviewed, continue current medical management. 06/21: Patient narcisa in ICU on ventilator. FiO2 40%, PEEP 5%. She is afebrile. Discussed with RN, no acute vents overnight. Charts and labs reviewed. Continue antibiotic treatment with Zosyn. 06/20: Patient seen in ICU. She remains on ventilator, FiO2 40%, PEEP 5. Afebrile. No acute events overnight. Echocardiogram obtained, showing mildly dilated left ventricle with global hypokinesis, estimated ejection fraction 25%. 06/19: Patient seen in ICU. On ventilator, FiO2 40%, PEEP 5. Continue IV Zosyn. Follow neurology and cardiology recommendations. Chest tube management and vent management per pulmonology. 06/18: Patient seen in ICU. Afebrile. Ventilated, FiO2 40%, PEEP 5. Continue antibiotic coverage. Charts and labs reviewed. Discussed with RN, no acute events overnight. COVID-19 negative. Echocardiogram pending. Vitals/I&O Vitals/I&O: Vital Signs Date Time Temp Pulse Resp B/P (MAP) Pulse Ox O2 Delivery O2 Flow Rate FiO2 06/29/20 10:20 71 140/71 06/29/20 09:02 96 Ventilator 06/29/20 09:00 28 06/29/20 08:00 98.8 98.8 I & O 0 06/28/20 06/28/20 06/29/20 15:00 23:00 07:00 Intake Total 535 ml 1047 ml 1262 ml Output Total 900 ml 1245 ml 500 ml Balance -365 ml -198 ml 762 ml Physical Exam Physical Exam: GENERAL: Opens eyes transiently, does not follow any commands, not in distress. HEENT: Both pupils are round and reacting. No conjunctival lesion. NECK: Supple. Trach present LUNGS: Decreased breath sounds bilaterally. HEART: S1, S2, regular. No gallop or murmur. ABDOMEN: Soft, nontender. No organomegaly.peg tube + EXTREMITIES: No edema or cyanosis. toe amputation of the Rt foot,healed scars SKIN: Unremarkable. NEUROLOGICAL: Opens eyes transiently does not follow any commands General: No acute distress Heart: Regular rate, Normal S1, Normal S2 Lungs: Clear Abdomen: Soft, No hepatosplenomegaly Extremities: No cyanosis Skin: No rashes, No breakdown Assessment and Plan Assessmemt and Plan Problems Medical Problems: (1) Cardiac arrest Status: Acute (2) Fracture of ribs, multiple Status: Acute (3) Hyperglycemia Status: Acute (4) Pneumonia Status: Acute (5) Pneumothorax, right Status: Acute (6) Sternal fracture Status: Acute (7) VF (ventricular fibrillation) Status: Acute Cardiac arrest with resuscitation and probable pneumonia, sternal fracture and pneumothorax secondary to CPR, leukocytosis, electrolyte disturbance, hypokalemia, lactic acidosis, elevated troponin. Plan ICU monitoring Continue spontaneous ventilation with 12 of pressure support and 40% FiO2 She is going to need aggressive physical therapy occupational therapy speech therapy etc. Tracheostomy care PEG feeds We will likely need long-term acute care for a few weeks Home meds DVT prophylaxis Full code Appreciate subspecialist input Discussed with case management we are trying to get the patient to select specialty if insurance will agree and if select patient he will agree Long-term prognosis guarded this could take months before we know her new baseline CC time 32-minute Comment Review of Relevant I have reviewed the following items afua (where applicable) has been applied. Medications: Current Medications Medications (Trade) Dose Ordered Sig/Rosalio Route PRN Reason Start Time Stop Time Status Last Admin Dose Admin Lisinopril (Prinivil) 5 mg DAILY PO 06/29/20 09:00 06/29/20 09:21 Acetaminophen/ Hydrocodone Bitart (Lortab 7.5-325/ 15ml Oral Solution) 10 ml 1X ONCE PEG 06/28/20 12:30 06/28/20 12:31 DC 06/28/20 12:37 Piperacillin Sod/ Tazobactam Sod 3.375 gm/Sodium Chloride 50 ml @ 100 mls/hr Q6HRS IV 06/29/20 10:00 06/29/20 10:22 Justifications for Admission Other Justification HUSSEIN GOODWIN III DO Jun 29, 2020 11:05
--- NOTE | 2020-06-29 11:14 | PDOC ---
Date of Service: DATE: 06/29/20 TIME: 11:12 Subjective: Subjective: says [facility] won't accept pt. Objective: Objective: D/w nurse - no issues w/ PEG/tube feeds. Reviewed SW note. Vital Signs: Vital Signs Date Time Temp Pulse Resp B/P (MAP) Pulse Ox O2 Delivery O2 Flow Rate FiO2 06/29/20 10:20 71 140/71 06/29/20 09:02 96 Ventilator 06/29/20 09:00 28 06/29/20 08:00 98.8 98.8 PE: GEN: NAD - and son present LUNGS: trach/vent, clear anteriorly HEART: RRR ABD: soft, PEG in place, quiet BS NEURO/PSYCH: seems restless - unclear if any purposeful movements A/P: S/p cardiopulmonary arrest, anoxic encephalopathy, resp failure S/p trach and PEG -- PEG functioning. DC per primary. Justicifation of Admission Dx: Justifications for Admission: Justification of Admission Dx: N/A SHAHBAZ FOSS Jun 29, 2020 11:14
[2020-06-29] MEDS: fentaNYL PF VIAL 100 MCG/2 ML VIAL IVP PRN ×3 (13:48→20:18)
[2020-06-29] MEDS: MIDAZOLAM HCL/PF 5 MG/5 ML VIAL. IV PRN (13:48)
[2020-06-29] MEDS ORDERED: VECURONIUM BOLUS 10 MG VIAL. IV ONE ×2 (14:31)
--- NOTE | 2020-06-29 15:37 | NUR ---
SS following up with discharge planning. SS reviewed pt chart and discussed with pt RN. Pt is currently on the vent at 40%. COVID19 negative. Pt has trach and peg. [facility] contacted SS and notified SS that there corporate has decided that pt's insurance is too much of a risk and they can no longer accept pt. [facility] reported that they contacted pt's spouse and discussed. SS phoned and faxed referral to [facility], ; fax [phone]. SS will continue to follow for discharge planning.
[2020-06-29] MEDS: PROPOFOL 100 ML IV PRN ×2 (19:15→22:48)
[2020-06-29] MEDS: ATORVASTATIN CALCIUM 20 MG TABLET PO SCH (20:35)
[2020-06-29] MEDS: ENOXAPARIN 40 MG/0.4 ML SYRINGE. SQ SCH (20:36)
[2020-06-30] VITALS (23 sets, daily range): BP systolic 100–160; BP diastolic 55–92
[2020-06-30] MEDS: PIPERACILLIN/TAZOBACTAM 3.375 GM in IV NORMAL SALINE 50ML 50 ML IV SCH ×4 (00:03→20:34)
[2020-06-30] MEDS: fentaNYL PF VIAL 100 MCG/2 ML VIAL IVP PRN ×3 (00:04→12:28)
[2020-06-30] MEDS: PROPOFOL 100 ML IV PRN ×4 (02:51→20:51)
--- NOTE | 2020-06-30 06:03 | PDOC ---
PULMONARY PROGRESS NOTES DATE: 06/30/20 TIME: 05:50 Subjective S/P cardiac arrest 06/17---PEA / V-fib, on propofol fentanyl small trach secretion tolerated ps 5 hrs yesterday remains on vent support 40% and PEEP of 5 S/P trach on 06/26 S/P peg 06/27 Vitals Vital Signs Date Time Temp Pulse Resp B/P (MAP) Pulse Ox O2 Delivery O2 Flow Rate FiO2 06/30/20 05:00 20 97 06/30/20 02:00 85 141/74 (96) Ventilator 06/29/20 23:59 100.8 100.8 06/29/20 15:18 15.0 HEENT: Other (nc at perrl nose clear ) Lungs: Crackles Cardiovascular: S1, S2 Abdomen: Soft, Non-tender Extremities: No Edema Skin: Warm Labs Laboratory Tests Test 06/28/20 08:10 O2 Saturation 95 % (92-99) Arterial Blood pH 7.47 (7.35-7.45) Arterial Blood pCO2 at Patient Temp 31 mmHg (35-46) Arterial Blood pO2 at Patient Temp 73 mmHg (75-108) Arterial Blood HCO3 22 mmol/L (21-28) Arterial Blood Base Excess -1 mmol/L (-3-3) FiO2 40% Medications Active Scripts Medications Dose Route/Sig Max Daily Dose Days Date Category Acetaminophen-Diphenhyd 500-25 (Acetaminophen/Diphenhydramine) 1 Each Tablet 1 Each PO HS PRN 06/18/20 Reported Naproxen 500 Mg Tablet 1 Tab PO BID PRN 30 06/18/20 Reported Tramadol Hcl 50 Mg Tablet 50 Mg PO Q4HRS 06/18/20 Reported Levothyroxine Sodium 75 Mcg Tablet 1 Tab PO DAILY 06/18/20 Reported Adderall 20 Mg Tablet (Dextroamphetamine/Amphetamine) 20 Mg Tablet 1 Tab PO DAILY MDD 1 Tablet(s) 5 06/18/20 Reported Prozac (Fluoxetine Hcl) 20 Mg Capsule 1 Cap PO [id number] 06/18/20 Reported Comments CXR IMPRESSION: Left lung base opacities likely consolidative process such as pneumonia. Small left pleural effusion. Impression . IMPRESSION: 1. Acute respiratory failure secondary to [id number] cardiopulmonary arrest/ anoxic encephalopathy-- now S/P trach 2. Zza-gf-wlgnahyk ventricular fibrillation and asystole leading to anoxic brain injury. 3. Anoxic encephalopathy. 4. COVID neg 5. Morbid obesity. 6. Leukocytosis--improved 7. Lactic acidosis secondary to isw-cg-pwdcapdm cardiac arrest. 8. Abnormal x-ray revealing bibasilar atelectasis, infiltrates. 9. Pneumothorax secondary to CPR.resolved 10. Sternal sternal fracture secondary to CPR. 11. ? Pneumonia positive, gram-negative, gram-positive. Plan . PLAN: Continue current support with assist control ventilation, Fi02 40% PEEP 5, has trach weaning as tolerated assist control at night Clinically consistent with Anoxic encephalopathy Trach 06/26/20, PEG on 06/27/20 PPN until able to start TF with PEG Follow CXR/ABG-- No changes Follow infectious disease recommendations in regards to antibiotics, Follow neurology recs Follow Cardiology recs-- post cardiac cath 06/25/20-- cath was clean w/ normal filling pressures DVT/GI PPX D/W RN and RT Social work for D/C planning --[facility] declined PT. is FULL CODE MICHAELA HAQEU MD Jun 30, 2020 06:03
[2020-06-30] MEDS: LEVOTHYROXINE 75 MCG TABLET PO SCH (06:15)
[2020-06-30 07:20] LABS: HEMOGLOBIN 10.1 g/dL (12.0-15.5); RED BLOOD COUNT 3.43 x10^6/uL (3.50-5.40); RED CELL DISTRIBUTION WIDTH 12.9 % (11.5-14.5)
[2020-06-30] MEDS: ASPIRIN CHEWABLE 81 MG TABLET. PO SCH (07:50)
[2020-06-30] MEDS: CARVEDILOL 3.125 MG TABLET. PO SCH ×2 (07:51→20:33)
[2020-06-30] MEDS: FAMOTIDINE 20 MG/2 ML VIAL IVP SCH ×2 (07:52→21:08)
[2020-06-30] MEDS: LISINOPRIL 5 MG TABLET. PO SCH (07:53)
[2020-06-30] MEDS: IPRATRPIUM/ALBUTEROL 0.5/2.5MG 3 ML NEBU. NEB SCH ×4 (08:07→20:34)
--- NOTE | 2020-06-30 08:08 | PDOC ---
Infectious Disease Note Subjective: Subjective Patient remains on vent Does not follow any commands remains the same Had T-max 100.8 yesterday Discussed with RN Vital Signs: Vital Signs Vital Signs Date Time Temp Pulse Resp B/P (MAP) Pulse Ox O2 Delivery O2 Flow Rate FiO2 06/30/20 07:53 89 131/71 06/30/20 07:00 22 97 Ventilator 06/30/20 04:00 99.8 99.8 06/29/20 15:18 15.0 Physical Exam: PHYSICAL EXAM GENERAL: Opens eyes transiently, does not follow any commands, not in distress. HEENT: Both pupils are round and reacting. No conjunctival lesion. NECK: Supple. Trach present, drainage present around trach site LUNGS: Decreased breath sounds bilaterally. HEART: S1, S2, regular. No gallop or murmur. ABDOMEN: Soft, nontender. No organomegaly.peg tube + EXTREMITIES: No edema or cyanosis. toe amputation of the Rt foot,healed scars SKIN: Unremarkable. NEUROLOGICAL: Opens eyes transiently does not follow any commands Medications: Inpatient Meds: Current Medications Medications (Trade) Dose Ordered Sig/Rosalio Start Time Stop Time Status Last Admin Dose Admin Acetaminophen/ Hydrocodone Bitart (Lortab 7.5-325/ 15ml Oral Solution) 10 ml 1X ONCE 06/28/20 12:30 06/28/20 12:31 DC 06/28/20 12:37 10 ML Albuterol/ Ipratropium (Duoneb) 3 ml RTQID 06/18/20 20:00 06/29/20 20:00 3 ML Amino Acids/ Glycerin/ Electrolytes 1,000 ml @ 80 mls/hr [id number] 06/25/20 17:30 06/28/20 11:35 DC 06/27/20 20:50 80 MLS/HR Amiodarone HCl (Cordarone) 400 mg DAILY 06/20/20 09:00 06/29/20 10:20 400 MG Amiodarone HCl 150 mg/Dextrose 103 ml @ 618 mls/hr 1X ONCE 06/17/20 07:00 06/17/20 07:09 DC 06/17/20 07:00 618 MLS/HR Amiodarone HCl 450 mg/Dextrose 259 ml @ 33 mls/hr 1X ONCE 06/17/20 07:00 06/17/20 14:50 DC Aspirin (Aspirin Chewable) 81 mg 1X ONCE 06/19/20 15:30 06/19/20 15:37 DC 06/19/20 15:57 81 MG Atorvastatin Calcium (Lipitor) 20 mg QHS 06/19/20 21:00 06/29/20 20:35 20 MG Atropine Sulfate (ATROPINE 0.5mg SYRINGE) 0.5 mg PRN Q5MIN PRN 06/21/20 10:45 06/29/20 11:47 DC Bupivacaine HCl (Sensorcaine Mpf 0.5%) 30 ml STK-MED ONCE 06/26/20 12:19 06/26/20 12:19 DC Buspirone HCl (Buspar) 30 mg Q8H 06/17/20 12:00 06/17/20 12:39 DC 06/17/20 12:31 30 MG Carvedilol (Coreg) 3.125 mg BIDWMEALS 06/19/20 17:00 06/30/20 07:51 3.125 MG Cellulose (Surgicel Fibrillar 1x2) 1 each STK-MED ONCE 06/26/20 13:25 06/26/20 13:25 DC 06/26/20 13:22 1 EACH Dexamethasone Sodium Phosphate (Decadron) 4 mg STK-MED ONCE 06/26/20 13:13 06/26/20 13:14 DC Dexmedetomidine HCl 400 mcg/ Sodium Chloride 100 ml @ 0 mls/hr CONT PRN 06/21/20 10:45 06/29/20 11:47 DC 06/29/20 06:11 15.1 MLS/HR Enoxaparin Sodium (Lovenox 40mg Syringe) 40 mg Q24H 06/18/20 21:00 06/29/20 20:36 40 MG Famotidine (Pepcid Vial) 20 mg BID 06/18/20 21:00 06/30/20 07:52 20 MG Fentanyl Citrate (Fentanyl 2ml Vial) 50 mcg PRN Q2HR PRN 06/23/20 16:45 06/30/20 04:30 50 MCG Furosemide (Lasix) 40 mg 1X ONCE 06/20/20 13:30 06/20/20 13:31 DC 06/20/20 14:38 40 MG Glycerin/ Hypromellose/ Polyethylene (Artificial Tears) 1 drop PRN Q15MIN PRN 06/17/20 12:00 06/17/20 12:39 DC Heparin Sodium (Porcine) (Heparin Sodium) 2,500 unit 1X ONCE 06/25/20 15:15 06/25/20 15:16 DC 06/25/20 15:09 2,500 UNIT Heparin Sodium/ Sodium Chloride (HEPARIN for ARTERIAL LINE FLUSH) 1,000 unit 1X ONCE 06/25/20 15:15 06/25/20 15:16 DC 06/25/20 15:09 1,000 UNIT Info (CONTRAST GIVEN -- Rx MONITORING) 1 each PRN DAILY PRN 06/17/20 08:15 06/19/20 08:14 DC Iohexol (Omnipaque 300 Mg/ml) 30 ml 1X ONCE 06/25/20 15:15 06/25/20 15:16 DC 06/25/20 15:09 30 ML Iohexol (Omnipaque 350 Mg/ml) 100 ml 1X ONCE 06/17/20 08:15 06/17/20 08:16 DC 06/17/20 08:17 100 ML Levothyroxine Sodium (Synthroid) 75 mcg DAILY06 06/18/20 21:00 06/30/20 06:15 75 MCG Lidocaine HCl (Lidocaine 1% 20ml Vial) 20 ml 1X ONCE 06/17/20 09:15 06/17/20 09:20 DC 06/17/20 09:15 20 ML Lidocaine HCl (Lidocaine Pf 2% Vial) 5 ml STK-MED ONCE 06/27/20 09:54 06/27/20 09:54 DC Lidocaine HCl (Xylocaine-Mpf 1% 2ml Vial) 2 ml 1X ONCE 06/25/20 15:15 06/25/20 15:16 DC 06/25/20 15:09 2 ML Lidocaine HCl (Xylocaine-Mpf 1% 5ml Vial) 5 ml STK-MED ONCE 06/17/20 09:26 06/17/20 09:26 DC Lisinopril (Prinivil) 5 mg DAILY 06/29/20 09:00 06/30/20 07:53 5 MG Magnesium Sulfate/ Dextrose 100 ml @ 100 mls/hr 1X ONCE 06/17/20 12:00 06/17/20 12:39 DC 06/17/20 12:22 100 MLS/HR Midazolam HCl 100 ml @ 0 mls/hr CONT PRN 06/25/20 11:45 06/29/20 11:47 DC 06/28/20 03:00 10 MLS/HR Midazolam HCl (Versed) 5 mg Q1HR PRN 06/17/20 12:45 06/29/20 13:48 5 MG Nitroglycerin (Nitroglycerin) 200 mcg 1X ONCE 06/25/20 15:15 06/25/20 15:16 DC 06/25/20 15:09 200 MCG Ondansetron HCl (Zofran) 4 mg STK-MED ONCE 06/26/20 13:13 06/26/20 13:13 DC Pantoprazole Sodium (PROTONIX VIAL for IV PUSH) 40 mg DAILY 06/18/20 09:00 06/17/20 12:39 DC Piperacillin Sod/ Tazobactam Sod (Zosyn Per Pharmacy) 1 each PRN DAILY PRN 06/17/20 08:45 06/27/20 11:36 DC Piperacillin Sod/ Tazobactam Sod 3.375 gm/Sodium Chloride 50 ml @ 100 mls/hr Q6HRS 06/29/20 10:00 06/30/20 05:39 100 MLS/HR Piperacillin Sod/ Tazobactam Sod 4.5 gm/Sodium Chloride 100 ml @ 200 mls/hr 1X ONCE 06/17/20 12:15 06/17/20 12:44 Cancel Potassium Bicarbonate (Potassium Effervescent Tablet) 40 meq 1X ONCE 06/18/20 09:45 06/18/20 09:48 DC 06/18/20 10:00 40 MEQ Potassium Chloride/Water 100 ml @ 100 mls/hr Q1H 06/25/20 18:00 06/25/20 19:59 DC 06/25/20 18:46 100 MLS/HR Prochlorperazine Edisylate (Compazine) 5 mg PACU PRN PRN 06/27/20 07:00 06/28/20 06:59 DC Propofol 100 ml @ 0 mls/hr CONT PRN 06/29/20 16:30 06/30/20 05:26 30.18 MLS/HR Propofol (Diprivan) 200 mg STK-MED ONCE 06/27/20 09:53 06/27/20 09:54 DC Ringer's Solution 1,000 ml @ 30 mls/hr Q24H 06/27/20 07:00 06/27/20 18:59 DC 06/27/20 08:39 30 MLS/HR Rocuronium Kimball (Zemuron) 50 mg STK-MED ONCE 06/26/20 11:37 06/26/20 11:38 DC Sevoflurane (Ultane) 30 ml STK-MED ONCE 06/26/20 13:37 06/26/20 13:38 DC Sodium Chloride 500 ml @ 500 mls/hr 1X PRN PRN 06/21/20 10:45 Vecuronium Kimball (Norcuron Bolus) 10 mg 1X ONCE 06/29/20 14:31 06/29/20 17:19 DC 06/29/20 14:31 10 MG Verapamil HCl (Verapamil) 2.5 mg 1X ONCE 06/25/20 15:15 06/25/20 15:16 DC 06/25/20 15:09 2.5 MG Labs: Lab Laboratory Tests Test 06/30/20 06:05 White Blood Count 16.0 x10^3/uL (4.0-11.0) Red Blood Count 3.43 x10^6/uL (3.50-5.40) Hemoglobin 10.1 g/dL (12.0-15.5) Hematocrit 31.0 % (36.0-47.0) Mean Corpuscular Volume 90 fL (79-100) Mean Corpuscular Hemoglobin 29 pg (25-35) Mean Corpuscular Hemoglobin Concent 32 g/dL (31-37) Red Cell Distribution Width 12.9 % (11.5-14.5) Platelet Count 401 x10^3/uL (140-400) Objective: Assessment: 1. Cardiopulmonary arrest at home. s/p cardiac cath , normal coronaries 2. Leukocytosis, likely reactive. resolved 3. Lactic acidosis from #1. 4. Respiratory failure. suspected aspiration; status post trach placement 5. Anoxic Encephalopathy 6. Hypertension. 7. Pneumothorax.s/p CTS, 8. Rib fracture and sternal fracture. 9. Anemia 10. S/P Peg tube placement Plan: Plan of Care Continue Zosyn Add Zyvox Trach aspirate for cultures cont supportive care Monitor labs and cultures If patient has diarrhea, check C. difficile PCR D/W SAÚL MAYES MD Jun 30, 2020 08:07
[2020-06-30 08:11] LABS: CALCIUM 9.2 mg/dL (8.5-10.1); CREATININE 0.5 mg/dL (0.6-1.0); GFR 127.2; MAGNESIUM 2.1 mg/dL (1.8-2.4); POTASSIUM 3.5 mmol/L (3.5-5.1)
[2020-06-30] MEDS: DAPTOmycin (GENERIC) IVPB 400 MG in IV NORMAL SALINE 50ML 50 ML IV SCH (12:31)
[2020-06-30 12:33] LABS: BASE EXCESS ABG 3 mmol/L (-3-3); HCO3 ABG 27 mmol/L (21-28); PCO2 ABG 41 mmHg (35-46); PO2 ABG 79 mmHg (75-108); SAT O2 ABG 95 % (92-99)
[2020-06-30 12:34] LABS: FIO2 ABG 40% PS 14 PEEP 5
--- NOTE | 2020-06-30 14:58 | PDOC ---
GENERAL General: Patient examined chart reviewed today is hospital day 13 for this patient with a V. fib cardiac arrest at admission, history of COVID 19 2 months ago. She has not recovered and has been intubated for the last couple of weeks. She now has a tracheotomy and the plan as once she is stable to discharge to a long-term acute care facility. Goals of care discussions have happened at length with family per the record and given her young age and the abruptness of her illness plan is to continue aggressive support. I am seeing the patient this afternoon in the company of her nurse and son. Nursing has updated me that this morning they tried to lighten her sedation without any neurologic response. She has had more involuntary movements including lipsmacking, grimacing, gyrations but has not responded otherwise. We have now increased her sedation this afternoon. We appreciate subspecialty support. She has had a purulent discharge from her t william that has been cultured. We will continue current management otherwise. Problems: (1) Cardiac arrest (2) VF (ventricular fibrillation) (3) History of COVID-19 VITAL SIGNS Vital Signs/I&O: Vital Signs Date Time Temp Pulse Resp B/P (MAP) Pulse Ox O2 Delivery O2 Flow Rate FiO2 06/30/20 12:30 97 Ventilator 06/30/20 12:28 15.0 06/30/20 07:53 89 131/71 06/30/20 07:00 22 06/30/20 04:00 99.8 99.8 I & O 06/29/20 06/29/20 06/30/20 15:00 23:00 07:00 Intake Total 335 ml 1318 ml 1467 ml Output Total 550 ml 960 ml 460 ml Balance -215 ml 358 ml 1007 ml Patient is intubated and sedated restless this afternoon she had 7 hours on less sedation and was constantly moving and appeared agitated. She was unresponsive otherwise HEENT exam is notable for repetitive tongue and mouth movements and grimacing Neck is soft and supple no adenopathy or thyromegaly noted Chest is clear to auscultation Heart S1-S2 normal regular rate and rhythm no murmurs or gallops are noted Abdomen soft nontender nondistended no masses organomegaly noted Extremity exam is unremarkable for acute abnormality ALLERGIES Allergies: Allergies Coded Allergies Type Severity Reaction Last Updated Verified No Known Drug Allergies 06/27/20 No MEDS Medications: Current Medications Medications (Trade) Dose Ordered Sig/Rosalio Route PRN Reason Start Time Stop Time Status Last Admin Dose Admin Propofol 100 ml @ 0 mls/hr CONT PRN IV PER PROTOCOL 06/29/20 16:30 06/30/20 12:33 Daptomycin 400 mg/ Sodium Chloride 50 ml @ 100 mls/hr Q24H IV 06/30/20 10:00 06/30/20 12:31 LAB Lab: Laboratory Tests Test 06/30/20 06:05 06/30/20 12:30 White Blood Count 16.0 x10^3/uL (4.0-11.0) H Red Blood Count 3.43 x10^6/uL (3.50-5.40) L Hemoglobin 10.1 g/dL (12.0-15.5) L Hematocrit 31.0 % (36.0-47.0) L Mean Corpuscular Volume 90 fL (79-100) Mean Corpuscular Hemoglobin 29 pg (25-35) Mean Corpuscular Hemoglobin Concent 32 g/dL (31-37) Red Cell Distribution Width 12.9 % (11.5-14.5) Platelet Count 401 x10^3/uL (140-400) H Sodium Level 140 mmol/L (136-145) Potassium Level 3.5 mmol/L (3.5-5.1) Chloride Level 103 mmol/L (98-107) Carbon Dioxide Level 28 mmol/L (21-32) Anion Gap 9 (6-14) Blood Urea Nitrogen 11 mg/dL (7-20) Creatinine 0.5 mg/dL (0.6-1.0) L Estimated GFR (Cockcroft-Gault) 127.2 Glucose Level 115 mg/dL (70-99) H Calcium Level 9.2 mg/dL (8.5-10.1) Magnesium Level 2.1 mg/dL (1.8-2.4) O2 Saturation 95 % (92-99) Arterial Blood pH 7.44 (7.35-7.45) Arterial Blood pCO2 at Patient Temp 41 mmHg (35-46) Arterial Blood pO2 at Patient Temp 79 mmHg (75-108) Arterial Blood HCO3 27 mmol/L (21-28) Arterial Blood Base Excess 3 mmol/L (-3-3) FiO2 40% ps 14 peep 5 Laboratory Tests 06/30/20 06:05 Laboratory Tests 06/30/20 06:05 ASSESSMENT & PLAN A&P Plan as noted above This note was created using [employer] and may have omissions and/or errors due to the nature of real-time voice residential treatment staff. Justifications for Admission Other Justification JULY CARRANZA MD Jun 30, 2020 14:57
[2020-06-30] MEDS: ATORVASTATIN CALCIUM 20 MG TABLET PO SCH (20:33)
[2020-06-30] MEDS: ENOXAPARIN 40 MG/0.4 ML SYRINGE. SQ SCH (21:09)
[2020-07-01] VITALS (12 sets, daily range): BP systolic 96–147; BP diastolic 57–86
[2020-07-01] MEDS: PIPERACILLIN/TAZOBACTAM 3.375 GM in IV NORMAL SALINE 50ML 50 ML IV SCH ×4 (00:12→18:35)
[2020-07-01] MEDS: PROPOFOL 100 ML IV PRN ×4 (01:04→22:10)
[2020-07-01 06:00] LABS: BASO # 0.1 x10^3/uL (0.0-0.2); BASO % 0 % (0-3); EOS # 0.4 x10^3/uL (0.0-0.7); EOS % 2 % (0-3); HEMATOCRIT 32.3 % (36.0-47.0); HEMOGLOBIN 10.5 g/dL (12.0-15.5); LYMPH # 1.5 x10^3/uL (1.0-4.8); LYMPH % 10 % (24-48); MEAN CORPUSCULAR HEMOGLOBIN 29 pg (25-35); MEAN CORPUSCULAR HGB CONC 32 g/dL (31-37); MEAN CORPUSCULAR VOLUME 91 fL (79-100); MONO # 0.8 x10^3/uL (0.0-1.1); MONO % 5 % (0-9); NEUT # 12.3 x10^3/uL (1.8-7.7); NEUT % 82 % (31-73); PLATELET COUNT 418 x10^3/uL (140-400); RED BLOOD COUNT 3.56 x10^6/uL (3.50-5.40); RED CELL DISTRIBUTION WIDTH 12.9 % (11.5-14.5)
--- NOTE | 2020-07-01 06:09 | PDOC ---
PULMONARY PROGRESS NOTES DATE: 07/01/20 TIME: 06:08 Subjective S/P cardiac arrest 06/17---PEA / V-fib, on propofol restless at times large trach secretion didnt tolerate ps trial well yesterday remains on vent support 40% and PEEP of 5 S/P trach on 06/26 S/P peg 06/27 Vitals Vital Signs Date Time Temp Pulse Resp B/P (MAP) Pulse Ox O2 Delivery O2 Flow Rate FiO2 07/01/20 04:30 100 Ventilator 07/01/20 04:00 98.9 86 19 147/78 (101) 98.9 06/30/20 12:28 15.0 HEENT: Other (nc at perrl nose clear ) Lungs: Crackles Cardiovascular: S1, S2 Abdomen: Soft, Non-tender Extremities: No Edema Skin: Warm Labs Laboratory Tests Test 06/30/20 06:05 06/30/20 12:30 White Blood Count 16.0 x10^3/uL (4.0-11.0) Red Blood Count 3.43 x10^6/uL (3.50-5.40) Hemoglobin 10.1 g/dL (12.0-15.5) Hematocrit 31.0 % (36.0-47.0) Mean Corpuscular Volume 90 fL (79-100) Mean Corpuscular Hemoglobin 29 pg (25-35) Mean Corpuscular Hemoglobin Concent 32 g/dL (31-37) Red Cell Distribution Width 12.9 % (11.5-14.5) Platelet Count 401 x10^3/uL (140-400) Sodium Level 140 mmol/L (136-145) Potassium Level 3.5 mmol/L (3.5-5.1) Chloride Level 103 mmol/L (98-107) Carbon Dioxide Level 28 mmol/L (21-32) Anion Gap 9 (6-14) Blood Urea Nitrogen 11 mg/dL (7-20) Creatinine 0.5 mg/dL (0.6-1.0) Estimated GFR (Cockcroft-Gault) 127.2 Glucose Level 115 mg/dL (70-99) Calcium Level 9.2 mg/dL (8.5-10.1) Magnesium Level 2.1 mg/dL (1.8-2.4) O2 Saturation 95 % (92-99) Arterial Blood pH 7.44 (7.35-7.45) Arterial Blood pCO2 at Patient Temp 41 mmHg (35-46) Arterial Blood pO2 at Patient Temp 79 mmHg (75-108) Arterial Blood HCO3 27 mmol/L (21-28) Arterial Blood Base Excess 3 mmol/L (-3-3) FiO2 40% ps 14 peep 5 Laboratory Tests Test 06/30/20 12:30 O2 Saturation 95 % (92-99) Arterial Blood pH 7.44 (7.35-7.45) Arterial Blood pCO2 at Patient Temp 41 mmHg (35-46) Arterial Blood pO2 at Patient Temp 79 mmHg (75-108) Arterial Blood HCO3 27 mmol/L (21-28) Arterial Blood Base Excess 3 mmol/L (-3-3) FiO2 40% ps 14 peep 5 Medications Active Scripts Medications Dose Route/Sig Max Daily Dose Days Date Category Acetaminophen-Diphenhyd 500-25 (Acetaminophen/Diphenhydramine) 1 Each Tablet 1 Each PO HS PRN 06/18/20 Reported Naproxen 500 Mg Tablet 1 Tab PO BID PRN 30 06/18/20 Reported Tramadol Hcl 50 Mg Tablet 50 Mg PO Q4HRS 06/18/20 Reported Levothyroxine Sodium 75 Mcg Tablet 1 Tab PO DAILY 06/18/20 Reported Adderall 20 Mg Tablet (Dextroamphetamine/Amphetamine) 20 Mg Tablet 1 Tab PO DAILY MDD 1 Tablet(s) 5 06/18/20 Reported Prozac (Fluoxetine Hcl) 20 Mg Capsule 1 Cap PO [id number] 06/18/20 Reported Comments CXR IMPRESSION: Left lung base opacities likely consolidative process such as pneumonia. Small left pleural effusion. Impression . IMPRESSION: 1. Acute respiratory failure secondary to [id number] cardiopulmonary arrest/ anoxic encephalopathy-- now S/P trach 2. Flm-bj-ulygspby ventricular fibrillation and asystole leading to anoxic brain injury. 3. Anoxic encephalopathy. 4. COVID neg 5. Morbid obesity. 6. Leukocytosis--improved 7. Lactic acidosis secondary to yrr-fa-horxsore cardiac arrest. 8. Abnormal x-ray revealing bibasilar atelectasis, infiltrates. 9. Pneumothorax secondary to CPR.resolved 10. Sternal sternal fracture secondary to CPR. 11. ? Pneumonia positive, gram-negative, gram-positive. Plan . PLAN: Continue current support with assist control ventilation, Fi02 40% PEEP 5, has trach weaning as tolerated assist control at night Clinically consistent with Anoxic encephalopathy Trach 06/26/20, PEG on 06/27/20 PPN until able to start TF with PEG Follow CXR/ABG-- reviewed Follow infectious disease recommendations in regards to antibiotics, Follow neurology recs Follow Cardiology recs-- post cardiac cath 06/25/20-- cath was clean w/ normal filling pressures DVT/GI PPX D/W RN and RT Social work for D/C planning --[facility] declined PT. is FULL CODE MICHAELA HAQUE MD Jul 01, 2020 06:09
[2020-07-01 06:18] LABS: ALBUMIN 2.6 g/dL (3.4-5.0); ALBUMIN/GLOBULIN RATIO 0.7 (1.0-1.7); CALCIUM 9.3 mg/dL (8.5-10.1); CREATININE 0.5 mg/dL (0.6-1.0); GFR 127.2; POTASSIUM 4.2 mmol/L (3.5-5.1); TOTAL BILIRUBIN 0.4 mg/dL (0.2-1.0); TOTAL PROTEIN 6.4 g/dL (6.4-8.2)
[2020-07-01] MEDS: LEVOTHYROXINE 75 MCG TABLET PO SCH (06:29)
[2020-07-01] MEDS: IPRATRPIUM/ALBUTEROL 0.5/2.5MG 3 ML NEBU. NEB SCH ×4 (07:51→20:00)
[2020-07-01] MEDS: DAPTOmycin (GENERIC) IVPB 400 MG in IV NORMAL SALINE 50ML 50 ML IV SCH (10:21)
[2020-07-01] MEDS: ASPIRIN CHEWABLE 81 MG TABLET. PO SCH (10:22)
[2020-07-01] MEDS: FAMOTIDINE 20 MG/2 ML VIAL IVP SCH ×2 (10:22→21:13)
[2020-07-01] MEDS: AMIODARONE HCL 200 MG TABLET. PO SCH (10:22)
[2020-07-01] MEDS: CARVEDILOL 3.125 MG TABLET. PO SCH ×2 (10:22→18:00)
[2020-07-01] MEDS: LISINOPRIL 5 MG TABLET. PO SCH (10:23)
--- NOTE | 2020-07-01 10:36 | PDOC ---
Infectious Disease Note Subjective: Subjective Patient remains on vent Does not follow any commands Fever pattern improved Discussed with RN Vital Signs: Vital Signs Vital Signs Date Time Temp Pulse Resp B/P (MAP) Pulse Ox O2 Delivery O2 Flow Rate FiO2 07/01/20 10:23 84 142/80 07/01/20 08:00 Ventilator 07/01/20 07:50 99 07/01/20 06:00 21 07/01/20 04:00 98.9 98.9 06/30/20 12:28 15.0 Physical Exam: PHYSICAL EXAM GENERAL: Opens eyes transiently, does not follow any commands, not in distress. HEENT: Both pupils are round and reacting. No conjunctival lesion. NECK: Supple. Trach present, erythema and drainage present around trach site LUNGS: Decreased breath sounds bilaterally. HEART: S1, S2, regular. No gallop or murmur. ABDOMEN: Soft, nontender. No organomegaly.peg tube + EXTREMITIES: No edema or cyanosis. toe amputation of the Rt foot,healed scars SKIN: Unremarkable. NEUROLOGICAL: Opens eyes transiently does not follow any commands Medications: Inpatient Meds: Current Medications Medications (Trade) Dose Ordered Sig/Rosalio Start Time Stop Time Status Last Admin Dose Admin Acetaminophen/ Hydrocodone Bitart (Lortab 7.5-325/ 15ml Oral Solution) 10 ml 1X ONCE 06/28/20 12:30 06/28/20 12:31 DC 06/28/20 12:37 10 ML Albuterol/ Ipratropium (Duoneb) 3 ml RTQID 06/18/20 20:00 07/01/20 07:51 3 ML Amino Acids/ Glycerin/ Electrolytes 1,000 ml @ 80 mls/hr [id number] 06/25/20 17:30 06/28/20 11:35 DC 06/27/20 20:50 80 MLS/HR Amiodarone HCl (Cordarone) 400 mg DAILY 06/20/20 09:00 07/01/20 10:22 400 MG Amiodarone HCl 150 mg/Dextrose 103 ml @ 618 mls/hr 1X ONCE 06/17/20 07:00 06/17/20 07:09 DC 06/17/20 07:00 618 MLS/HR Amiodarone HCl 450 mg/Dextrose 259 ml @ 33 mls/hr 1X ONCE 06/17/20 07:00 06/17/20 14:50 DC Aspirin (Aspirin Chewable) 81 mg 1X ONCE 06/19/20 15:30 06/19/20 15:37 DC 06/19/20 15:57 81 MG Atorvastatin Calcium (Lipitor) 20 mg QHS 06/19/20 21:00 06/30/20 20:33 20 MG Atropine Sulfate (ATROPINE 0.5mg SYRINGE) 0.5 mg PRN Q5MIN PRN 06/21/20 10:45 06/29/20 11:47 DC Bupivacaine HCl (Sensorcaine Mpf 0.5%) 30 ml STK-MED ONCE 06/26/20 12:19 06/26/20 12:19 DC Buspirone HCl (Buspar) 30 mg Q8H 06/17/20 12:00 06/17/20 12:39 DC 06/17/20 12:31 30 MG Carvedilol (Coreg) 3.125 mg BIDWMEALS 06/19/20 17:00 07/01/20 10:22 3.125 MG Cellulose (Surgicel Fibrillar 1x2) 1 each STK-MED ONCE 06/26/20 13:25 06/26/20 13:25 DC 06/26/20 13:22 1 EACH Daptomycin 400 mg/ Sodium Chloride 50 ml @ 100 mls/hr Q24H 06/30/20 10:00 07/01/20 10:21 100 MLS/HR Dexamethasone Sodium Phosphate (Decadron) 4 mg STK-MED ONCE 06/26/20 13:13 06/26/20 13:14 DC Dexmedetomidine HCl 400 mcg/ Sodium Chloride 100 ml @ 0 mls/hr CONT PRN 06/21/20 10:45 06/29/20 11:47 DC 06/29/20 06:11 15.1 MLS/HR Enoxaparin Sodium (Lovenox 40mg Syringe) 40 mg Q24H 06/18/20 21:00 06/30/20 21:09 40 MG Famotidine (Pepcid Vial) 20 mg BID 06/18/20 21:00 07/01/20 10:22 20 MG Fentanyl Citrate (Fentanyl 2ml Vial) 50 mcg PRN Q2HR PRN 06/23/20 16:45 06/30/20 12:28 50 MCG Furosemide (Lasix) 40 mg 1X ONCE 06/20/20 13:30 1/6/21 13:31 DC 06/20/20 14:38 40 MG Glycerin/ Hypromellose/ Polyethylene (Artificial Tears) 1 drop PRN Q15MIN PRN 06/17/20 12:00 06/17/20 12:39 DC Heparin Sodium (Porcine) (Heparin Sodium) 2,500 unit 1X ONCE 06/25/20 15:15 06/25/20 15:16 DC 06/25/20 15:09 2,500 UNIT Heparin Sodium/ Sodium Chloride (HEPARIN for ARTERIAL LINE FLUSH) 1,000 unit 1X ONCE 06/25/20 15:15 06/25/20 15:16 DC 06/25/20 15:09 1,000 UNIT Info (CONTRAST GIVEN -- Rx MONITORING) 1 each PRN DAILY PRN 06/17/20 08:15 06/19/20 08:14 DC Iohexol (Omnipaque 300 Mg/ml) 30 ml 1X ONCE 06/25/20 15:15 06/25/20 15:16 DC 06/25/20 15:09 30 ML Iohexol (Omnipaque 350 Mg/ml) 100 ml 1X ONCE 06/17/20 08:15 06/17/20 08:16 DC 06/17/20 08:17 100 ML Levothyroxine Sodium (Synthroid) 75 mcg DAILY06 06/18/20 21:00 07/01/20 06:29 75 MCG Lidocaine HCl (Lidocaine 1% 20ml Vial) 20 ml 1X ONCE 06/17/20 09:15 06/17/20 09:20 DC 06/17/20 09:15 20 ML Lidocaine HCl (Lidocaine Pf 2% Vial) 5 ml STK-MED ONCE 06/27/20 09:54 06/27/20 09:54 DC Lidocaine HCl (Xylocaine-Mpf 1% 2ml Vial) 2 ml 1X ONCE 06/25/20 15:15 06/25/20 15:16 DC 06/25/20 15:09 2 ML Lidocaine HCl (Xylocaine-Mpf 1% 5ml Vial) 5 ml STK-MED ONCE 06/17/20 09:26 06/17/20 09:26 DC Lisinopril (Prinivil) 5 mg DAILY 06/29/20 09:00 07/01/20 10:23 5 MG Magnesium Sulfate/ Dextrose 100 ml @ 100 mls/hr 1X ONCE 06/17/20 12:00 06/17/20 12:39 DC 06/17/20 12:22 100 MLS/HR Midazolam HCl 100 ml @ 0 mls/hr CONT PRN 06/25/20 11:45 06/29/20 11:47 DC 06/28/20 03:00 10 MLS/HR Midazolam HCl (Versed) 5 mg Q1HR PRN 06/17/20 12:45 06/29/20 13:48 5 MG Nitroglycerin (Nitroglycerin) 200 mcg 1X ONCE 06/25/20 15:15 06/25/20 15:16 DC 06/25/20 15:09 200 MCG Ondansetron HCl (Zofran) 4 mg STK-MED ONCE 06/26/20 13:13 06/26/20 13:13 DC Pantoprazole Sodium (PROTONIX VIAL for IV PUSH) 40 mg DAILY 06/18/20 09:00 06/17/20 12:39 DC Piperacillin Sod/ Tazobactam Sod (Zosyn Per Pharmacy) 1 each PRN DAILY PRN 06/17/20 08:45 06/27/20 11:36 DC Piperacillin Sod/ Tazobactam Sod 3.375 gm/Sodium Chloride 50 ml @ 100 mls/hr Q6HRS 06/29/20 10:00 07/01/20 06:28 100 MLS/HR Piperacillin Sod/ Tazobactam Sod 4.5 gm/Sodium Chloride 100 ml @ 200 mls/hr 1X ONCE 06/17/20 12:15 06/17/20 12:44 Cancel Potassium Bicarbonate (Potassium Effervescent Tablet) 40 meq 1X ONCE 06/18/20 09:45 06/18/20 09:48 DC 06/18/20 10:00 40 MEQ Potassium Chloride/Water 100 ml @ 100 mls/hr Q1H 06/25/20 18:00 06/25/20 19:59 DC 06/25/20 18:46 100 MLS/HR Prochlorperazine Edisylate (Compazine) 5 mg PACU PRN PRN 06/27/20 07:00 06/28/20 06:59 DC Propofol 100 ml @ 0 mls/hr CONT PRN 06/29/20 16:30 07/01/20 04:22 24.144 MLS/HR Propofol (Diprivan) 200 mg STK-MED ONCE 06/27/20 09:53 06/27/20 09:54 DC Ringer's Solution 1,000 ml @ 30 mls/hr Q24H 06/27/20 07:00 06/27/20 18:59 DC 06/27/20 08:39 30 MLS/HR Rocuronium [place] (Zemuron) 50 mg STK-MED ONCE 06/26/20 11:37 06/26/20 11:38 DC Sevoflurane (Ultane) 30 ml STK-MED ONCE 06/26/20 13:37 06/26/20 13:38 DC Sodium Chloride 500 ml @ 500 mls/hr 1X PRN PRN 06/21/20 10:45 Vecuronium [place] (Norcuron Bolus) 10 mg 1X ONCE 06/29/20 14:31 06/29/20 17:19 DC 06/29/20 14:31 10 MG Verapamil HCl (Verapamil) 2.5 mg 1X ONCE 06/25/20 15:15 06/25/20 15:16 DC 06/25/20 15:09 2.5 MG Labs: Lab Laboratory Tests Test 06/30/20 12:30 07/01/20 05:00 O2 Saturation 95 % (92-99) Arterial Blood pH 7.44 (7.35-7.45) Arterial Blood pCO2 at Patient Temp 41 mmHg (35-46) Arterial Blood pO2 at Patient Temp 79 mmHg (75-108) Arterial Blood HCO3 27 mmol/L (21-28) Arterial Blood Base Excess 3 mmol/L (-3-3) FiO2 40% ps 14 peep 5 White Blood Count 15.0 x10^3/uL (4.0-11.0) Red Blood Count 3.56 x10^6/uL (3.50-5.40) Hemoglobin 10.5 g/dL (12.0-15.5) Hematocrit 32.3 % (36.0-47.0) Mean Corpuscular Volume 91 fL (79-100) Mean Corpuscular Hemoglobin 29 pg (25-35) Mean Corpuscular Hemoglobin Concent 32 g/dL (31-37) Red Cell Distribution Width 12.9 % (11.5-14.5) Platelet Count 418 x10^3/uL (140-400) Neutrophils (%) (Auto) 82 % (31-73) Lymphocytes (%) (Auto) 10 % (24-48) Monocytes (%) (Auto) 5 % (0-9) Eosinophils (%) (Auto) 2 % (0-3) Basophils (%) (Auto) 0 % (0-3) Neutrophils # (Auto) 12.3 x10^3/uL (1.8-7.7) Lymphocytes # (Auto) 1.5 x10^3/uL (1.0-4.8) Monocytes # (Auto) 0.8 x10^3/uL (0.0-1.1) Eosinophils # (Auto) 0.4 x10^3/uL (0.0-0.7) Basophils # (Auto) 0.1 x10^3/uL (0.0-0.2) Sodium Level 141 mmol/L (136-145) Potassium Level 4.2 mmol/L (3.5-5.1) Chloride Level 104 mmol/L (98-107) Carbon Dioxide Level 25 mmol/L (21-32) Anion Gap 12 (6-14) Blood Urea Nitrogen 12 mg/dL (7-20) Creatinine 0.5 mg/dL (0.6-1.0) Estimated GFR (Cockcroft-Gault) 127.2 BUN/Creatinine Ratio 24 (6-20) Glucose Level 109 mg/dL (70-99) Calcium Level 9.3 mg/dL (8.5-10.1) Total Bilirubin 0.4 mg/dL (0.2-1.0) Aspartate Amino Transf (AST/SGOT) 25 U/L (15-37) Alanine Aminotransferase (ALT/SGPT) 35 U/L (14-59) Alkaline Phosphatase 114 U/L (46-116) Creatine Kinase 50 U/L (26-192) Total Protein 6.4 g/dL (6.4-8.2) Albumin 2.6 g/dL (3.4-5.0) Albumin/Globulin Ratio 0.7 (1.0-1.7) Objective: Assessment: 1. Cardiopulmonary arrest at home. s/p cardiac cath , normal coronaries 2. Leukocytosis, likely reactive. resolved 3. Lactic acidosis from #1. 4. Respiratory failure. suspected aspiration; status post trach placement 5. Anoxic Encephalopathy 6. Hypertension. 7. Pneumothorax.s/p CTS, 8. Rib fracture and sternal fracture. 9. Anemia 10. S/P Peg tube placement Plan: Plan of Care Continue Zosyn/Zyvox Follow-up trach aspirate for cultures cont supportive care Monitor labs and cultures Overall prognosis poor D/W SAÚL MAYES MD Jul 01, 2020 10:36
[2020-07-01 12:14] LABS: BASE EXCESS ABG 2 mmol/L (-3-3); HCO3 ABG 25 mmol/L (21-28); PCO2 ABG 34 mmHg (35-46); PO2 ABG 90 mmHg (75-108); SAT O2 ABG 97 % (92-99)
[2020-07-01 12:16] LABS: FIO2 ABG 40% PS 12 PEEP 5
--- NOTE | 2020-07-01 13:33 | PDOC ---
GENERAL General: Patient examined chart reviewed seen with nursing at bedside. No change overnight. She did have a trial on less pressure support this morning and see med to tolerate that quite well. She does get agitated and moving about in the bed on carbon dioxide operator sedation. She is currently sedated more heavily. We appreciate subspecialty support. We will continue current management. Problems: (1) VF (ventricular fibrillation) (2) History of COVID-19 (3) Cardiac arrest VITAL SIGNS Vital Signs/I&O: Vital Signs Date Time Temp Pulse Resp B/P (MAP) Pulse Ox O2 Delivery O2 Flow Rate FiO2 07/01/20 12:38 Ventilator 07/01/20 12:03 97 07/01/20 10:23 84 142/80 07/01/20 06:00 21 07/01/20 04:00 98.9 98.9 06/30/20 12:28 15.0 I & O 06/30/20 06/30/20 07/01/20 15:00 23:00 07:00 Intake Total 250 ml 950 ml 1969 ml Output Total 600 ml 250 ml 845 ml Balance -350 ml 700 ml 1124 ml Patient is intubated and sedated unresponsive on the ventilator Chest is clear to auscultation anteriorly Heart S1-S2 normal regular rate and rhythm no murmurs or gallops are noted Abdomen soft nontender nondistended no masses organomegaly noted Extremity exam is unremarkable for acute abnormality ALLERGIES Allergies: Allergies Coded Allergies Type Severity Reaction Last Updated Verified No Known Drug Allergies 06/27/20 No MEDS Medications: Current Medications Medications (Trade) Dose Ordered Sig/Rosalio Start Time Stop Time Status Last Admin Dose Admin Acetaminophen/ Hydrocodone Bitart (Lortab 7.5-325/ 15ml Oral Solution) 10 ml 1X ONCE 06/28/20 12:30 06/28/20 12:31 DC 06/28/20 12:37 Albuterol/ Ipratropium (Duoneb) 3 ml RTQID 06/18/20 20:00 07/01/20 12:03 Amino Acids/ Glycerin/ Electrolytes 1,000 ml @ 80 mls/hr [id number] 06/25/20 17:30 06/28/20 11:35 DC 06/27/20 20:50 Amiodarone HCl (Cordarone) 400 mg DAILY 06/20/20 09:00 07/01/20 10:22 Amiodarone HCl 150 mg/Dextrose 103 ml @ 618 mls/hr 1X ONCE 06/17/20 07:00 06/17/20 07:09 DC 06/17/20 07:00 Amiodarone HCl 450 mg/Dextrose 259 ml @ 33 mls/hr 1X ONCE 06/17/20 07:00 06/17/20 14:50 DC Aspirin (Aspirin Chewable) 81 mg 1X ONCE 06/19/20 15:30 06/19/20 15:37 DC 06/19/20 15:57 Atorvastatin Calcium (Lipitor) 20 mg QHS 06/19/20 21:00 06/30/20 20:33 Atropine Sulfate (ATROPINE 0.5mg SYRINGE) 0.5 mg PRN Q5MIN PRN 06/21/20 10:45 06/29/20 11:47 DC Bupivacaine HCl (Sensorcaine Mpf 0.5%) 30 ml STK-MED ONCE 06/26/20 12:19 06/26/20 12:19 DC Buspirone HCl (Buspar) 30 mg Q8H 06/17/20 12:00 06/17/20 12:39 DC 06/17/20 12:31 Carvedilol (Coreg) 3.125 mg BIDWMEALS 06/19/20 17:00 07/01/20 10:22 Cellulose (Surgicel Fibrillar 1x2) 1 each STK-MED ONCE 06/26/20 13:25 06/26/20 13:25 DC 06/26/20 13:22 Daptomycin 400 mg/ Sodium Chloride 50 ml @ 100 mls/hr Q24H 06/30/20 10:00 07/01/20 10:21 Dexamethasone Sodium Phosphate (Decadron) 4 mg STK-MED ONCE 06/26/20 13:13 06/26/20 13:14 DC Dexmedetomidine HCl 400 mcg/ Sodium Chloride 100 ml @ 0 mls/hr CONT PRN 06/21/20 10:45 06/29/20 11:47 DC 06/29/20 06:11 Enoxaparin Sodium (Lovenox 40mg Syringe) 40 mg Q24H 06/18/20 21:00 06/30/20 21:09 Famotidine (Pepcid Vial) 20 mg BID 06/18/20 21:00 07/01/20 10:22 Fentanyl Citrate (Fentanyl 2ml Vial) 50 mcg PRN Q2HR PRN 06/23/20 16:45 06/30/20 12:28 Furosemide (Lasix) 40 mg 1X ONCE 06/20/20 13:30 06/20/20 13:31 DC 06/20/20 14:38 Glycerin/ Hypromellose/ Polyethylene (Artificial Tears) 1 drop PRN Q15MIN PRN 06/17/20 12:00 06/17/20 12:39 DC Heparin Sodium (Porcine) (Heparin Sodium) 2,500 unit 1X ONCE 06/25/20 15:15 06/25/20 15:16 DC 06/25/20 15:09 Heparin Sodium/ Sodium Chloride (HEPARIN for ARTERIAL LINE FLUSH) 1,000 unit 1X ONCE 06/25/20 15:15 06/25/20 15:16 DC 06/25/20 15:09 Info (CONTRAST GIVEN -- Rx MONITORING) 1 each PRN DAILY PRN 06/17/20 08:15 06/19/20 08:14 DC Iohexol (Omnipaque 300 Mg/ml) 30 ml 1X ONCE 06/25/20 15:15 06/25/20 15:16 DC 06/25/20 15:09 Iohexol (Omnipaque 350 Mg/ml) 100 ml 1X ONCE 06/17/20 08:15 06/17/20 08:16 DC 06/17/20 08:17 Levothyroxine Sodium (Synthroid) 75 mcg DAILY06 06/18/20 21:00 07/01/20 06:29 Lidocaine HCl (Lidocaine 1% 20ml Vial) 20 ml 1X ONCE 06/17/20 09:15 06/17/20 09:20 DC 06/17/20 09:15 Lidocaine HCl (Lidocaine Pf 2% Vial) 5 ml STK-MED ONCE 06/27/20 09:54 06/27/20 09:54 DC Lidocaine HCl (Xylocaine-Mpf 1% 2ml Vial) 2 ml 1X ONCE 06/25/20 15:15 06/25/20 15:16 DC 06/25/20 15:09 Lidocaine HCl (Xylocaine-Mpf 1% 5ml Vial) 5 ml STK-MED ONCE 06/17/20 09:26 06/17/20 09:26 DC Lisinopril (Prinivil) 5 mg DAILY 06/29/20 09:00 07/01/20 10:23 Magnesium Sulfate/ Dextrose 100 ml @ 100 mls/hr 1X ONCE 06/17/20 12:00 06/17/20 12:39 DC 06/17/20 12:22 Midazolam HCl 100 ml @ 0 mls/hr CONT PRN 06/25/20 11:45 06/29/20 11:47 DC 06/28/20 03:00 Midazolam HCl (Versed) 5 mg Q1HR PRN 06/17/20 12:45 06/29/20 13:48 Nitroglycerin (Nitroglycerin) 200 mcg 1X ONCE 06/25/20 15:15 06/25/20 15:16 DC 06/25/20 15:09 Ondansetron HCl (Zofran) 4 mg STK-MED ONCE 06/26/20 13:13 06/26/20 13:13 DC Pantoprazole Sodium (PROTONIX VIAL for IV PUSH) 40 mg DAILY 06/18/20 09:00 06/17/20 12:39 DC Piperacillin Sod/ Tazobactam Sod (Zosyn Per Pharmacy) 1 each PRN DAILY PRN 06/17/20 08:45 06/27/20 11:36 DC Piperacillin Sod/ Tazobactam Sod 3.375 gm/Sodium Chloride 50 ml @ 100 mls/hr Q6HRS 06/29/20 10:00 07/01/20 06:28 Piperacillin Sod/ Tazobactam Sod 4.5 gm/Sodium Chloride 100 ml @ 200 mls/hr 1X ONCE 06/17/20 12:15 06/17/20 12:44 Cancel Potassium Bicarbonate (Potassium Effervescent Tablet) 40 meq 1X ONCE 06/18/20 09:45 06/18/20 09:48 DC 06/18/20 10:00 Potassium Chloride/Water 100 ml @ 100 mls/hr Q1H 06/25/20 18:00 06/25/20 19:59 DC 06/25/20 18:46 Prochlorperazine Edisylate (Compazine) 5 mg PACU PRN PRN 06/27/20 07:00 06/28/20 06:59 DC Propofol 100 ml @ 0 mls/hr CONT PRN 06/29/20 16:30 07/01/20 04:22 Propofol (Diprivan) 200 mg STK-MED ONCE 06/27/20 09:53 06/27/20 09:54 DC Ringer's Solution 1,000 ml @ 30 mls/hr Q24H 06/27/20 07:00 06/27/20 18:59 DC 06/27/20 08:39 Rocuronium [place] (Zemuron) 50 mg STK-MED ONCE 06/26/20 11:37 06/26/20 11:38 DC Sevoflurane (Ultane) 30 ml STK-MED ONCE 06/26/20 13:37 06/26/20 13:38 DC Sodium Chloride 500 ml @ 500 mls/hr 1X PRN PRN 06/21/20 10:45 Vecuronium [place] (Norcuron Bolus) 10 mg 1X ONCE 06/29/20 14:31 06/29/20 17:19 DC 06/29/20 14:31 Verapamil HCl (Verapamil) 2.5 mg 1X ONCE 06/25/20 15:15 06/25/20 15:16 DC 06/25/20 15:09 LAB Lab: Laboratory Tests Test 07/01/20 05:00 07/01/20 12:10 White Blood Count 15.0 x10^3/uL (4.0-11.0) H Red Blood Count 3.56 x10^6/uL (3.50-5.40) Hemoglobin 10.5 g/dL (12.0-15.5) L Hematocrit 32.3 % (36.0-47.0) L Mean Corpuscular Volume 91 fL (79-100) Mean Corpuscular Hemoglobin 29 pg (25-35) Mean Corpuscular Hemoglobin Concent 32 g/dL (31-37) Red Cell Distribution Width 12.9 % (11.5-14.5) Platelet Count 418 x10^3/uL (140-400) H Neutrophils (%) (Auto) 82 % (31-73) H Lymphocytes (%) (Auto) 10 % (24-48) L Monocytes (%) (Auto) 5 % (0-9) Eosinophils (%) (Auto) 2 % (0-3) Basophils (%) (Auto) 0 % (0-3) Neutrophils # (Auto) 12.3 x10^3/uL (1.8-7.7) H Lymphocytes # (Auto) 1.5 x10^3/uL (1.0-4.8) Monocytes # (Auto) 0.8 x10^3/uL (0.0-1.1) Eosinophils # (Auto) 0.4 x10^3/uL (0.0-0.7) Basophils # (Auto) 0.1 x10^3/uL (0.0-0.2) Sodium Level 141 mmol/L (136-145) Potassium Level 4.2 mmol/L (3.5-5.1) Chloride Level 104 mmol/L (98-107) Carbon Dioxide Level 25 mmol/L (21-32) Anion Gap 12 (6-14) Blood Urea Nitrogen 12 mg/dL (7-20) Creatinine 0.5 mg/dL (0.6-1.0) L Estimated GFR (Cockcroft-Gault) 127.2 BUN/Creatinine Ratio 24 (6-20) H Glucose Level 109 mg/dL (70-99) H Calcium Level 9.3 mg/dL (8.5-10.1) Total Bilirubin 0.4 mg/dL (0.2-1.0) Aspartate Amino Transferase (AST) 25 U/L (15-37) Alanine Aminotransferase (ALT) 35 U/L (14-59) Alkaline Phosphatase 114 U/L (46-116) Creatine Kinase 50 U/L (26-192) Total Protein 6.4 g/dL (6.4-8.2) Albumin 2.6 g/dL (3.4-5.0) L Albumin/Globulin Ratio 0.7 (1.0-1.7) L O2 Saturation 97 % (92-99) Arterial Blood pH 7.48 (7.35-7.45) H Arterial Blood pCO2 at Patient Temp 34 mmHg (35-46) L Arterial Blood pO2 at Patient Temp 90 mmHg (75-108) Arterial Blood HCO3 25 mmol/L (21-28) Arterial Blood Base Excess 2 mmol/L (-3-3) FiO2 40% ps 12 peep 5 Laboratory Tests 07/01/20 05:00 Laboratory Tests 07/01/20 05:00 ASSESSMENT & PLAN A&P Plan as noted above This note was created using [employer] and may have omissions and/or errors due to the nature of real-time voice news correspondent. Justifications for Admission Other Justification JULY CARRANZA MD Jul 01, 2020 13:33
--- NOTE | 2020-07-01 19:39 | NUR ---
VS in hard copy in chart/ please see as needed.
[2020-07-01] MEDS: ENOXAPARIN 40 MG/0.4 ML SYRINGE. SQ SCH (21:13)
[2020-07-01] MEDS: ATORVASTATIN CALCIUM 20 MG TABLET PO SCH (21:13)
[2020-07-02] VITALS (23 sets, daily range): BP systolic 100–155; BP diastolic 54–95
[2020-07-02] MEDS: PIPERACILLIN/TAZOBACTAM 3.375 GM in IV NORMAL SALINE 50ML 50 ML IV SCH ×4 (00:37→18:09)
[2020-07-02] MEDS: PROPOFOL 100 ML IV PRN ×2 (02:59→07:26)
[2020-07-02 04:33] LABS: BASO # 0.1 x10^3/uL (0.0-0.2); BASO % 1 % (0-3); EOS # 0.4 x10^3/uL (0.0-0.7); EOS % 3 % (0-3); HEMATOCRIT 32.7 % (36.0-47.0); HEMOGLOBIN 10.6 g/dL (12.0-15.5); LYMPH # 1.6 x10^3/uL (1.0-4.8); LYMPH % 14 % (24-48); MEAN CORPUSCULAR HEMOGLOBIN 29 pg (25-35); MEAN CORPUSCULAR HGB CONC 32 g/dL (31-37); MEAN CORPUSCULAR VOLUME 91 fL (79-100); MONO # 0.7 x10^3/uL (0.0-1.1); MONO % 6 % (0-9); NEUT % 77 % (31-73); PLATELET COUNT 416 x10^3/uL (140-400); RED CELL DISTRIBUTION WIDTH 12.8 % (11.5-14.5); WHITE BLOOD COUNT 11.8 x10^3/uL (4.0-11.0)
[2020-07-02 04:56] LABS: ALBUMIN 2.6 g/dL (3.4-5.0); ALBUMIN/GLOBULIN RATIO 0.6 (1.0-1.7); CALCIUM 9.2 mg/dL (8.5-10.1); CREATININE 0.6 mg/dL (0.6-1.0); POTASSIUM 3.7 mmol/L (3.5-5.1); TOTAL BILIRUBIN 0.4 mg/dL (0.2-1.0); TOTAL PROTEIN 7.2 g/dL (6.4-8.2)
[2020-07-02] MEDS: LEVOTHYROXINE 75 MCG TABLET PO SCH (06:43)
--- NOTE | 2020-07-02 08:00 | PDOC ---
Infectious Disease Note Subjective: Subjective Patient remains on vent Does not follow any commands Has periods of agitation Fever pattern improved Tolerating tube feedings well Discussed with RN Vital Signs: Vital Signs Vital Signs Date Time Temp Pulse Resp B/P (MAP) Pulse Ox O2 Delivery O2 Flow Rate FiO2 07/02/20 07:22 99.3 82 22 141/72 (95) 98 Ventilator 99.3 Physical Exam: PHYSICAL EXAM GENERAL: Opens eyes transiently, does not follow any commands, agitated HEENT: Both pupils are round and reacting. No conjunctival lesion. NECK: Supple. Trach present, erythema and drainage present around trach site i mproving LUNGS: Decreased breath sounds bilaterally. HEART: S1, S2, regular. No gallop or murmur. ABDOMEN: Soft, nontender. No organomegaly.peg tube + fecal tube , Jolly present EXTREMITIES: No edema or cyanosis. toe amputation of the Rt foot,healed scars SKIN: Unremarkable. NEUROLOGICAL: Opens eyes transiently does not follow any commands Medications: Inpatient Meds: Current Medications Medications (Trade) Dose Ordered Sig/Rosalio Start Time Stop Time Status Last Admin Dose Admin Acetaminophen/ Hydrocodone Bitart (Lortab 7.5-325/ 15ml Oral Solution) 10 ml 1X ONCE 06/28/20 12:30 06/28/20 12:31 DC 06/28/20 12:37 10 ML Albuterol/ Ipratropium (Duoneb) 3 ml RTQID 06/18/20 20:00 07/01/20 20:00 3 ML Amino Acids/ Glycerin/ Electrolytes 1,000 ml @ 80 mls/hr [id number] 06/25/20 17:30 06/28/20 11:35 DC 06/27/20 20:50 80 MLS/HR Amiodarone HCl (Cordarone) 400 mg DAILY 06/20/20 09:00 07/01/20 10:22 400 MG Amiodarone HCl 150 mg/Dextrose 103 ml @ 618 mls/hr 1X ONCE 06/17/20 07:00 06/17/20 07:09 DC 06/17/20 07:00 618 MLS/HR Amiodarone HCl 450 mg/Dextrose 259 ml @ 33 mls/hr 1X ONCE 06/17/20 07:00 06/17/20 14:50 DC Aspirin (Aspirin Chewable) 81 mg 1X ONCE 06/19/20 15:30 1/5/21 15:37 DC 06/19/20 15:57 81 MG Atorvastatin Calcium (Lipitor) 20 mg QHS 06/19/20 21:00 07/01/20 21:13 20 MG Atropine Sulfate (ATROPINE 0.5mg SYRINGE) 0.5 mg PRN Q5MIN PRN 06/21/20 10:45 06/29/20 11:47 DC Bupivacaine HCl (Sensorcaine Mpf 0.5%) 30 ml STK-MED ONCE 06/26/20 12:19 06/26/20 12:19 DC Buspirone HCl (Buspar) 30 mg Q8H 06/17/20 12:00 06/17/20 12:39 DC 06/17/20 12:31 30 MG Carvedilol (Coreg) 3.125 mg [id number] 06/19/20 17:00 07/01/20 10:22 3.125 MG Cellulose (Surgicel Fibrillar 1x2) 1 each STK-MED ONCE 06/26/20 13:25 06/26/20 13:25 DC 06/26/20 13:22 1 EACH Daptomycin 400 mg/ Sodium Chloride 50 ml @ 100 mls/hr Q24H 06/30/20 10:00 07/01/20 10:21 100 MLS/HR Dexamethasone Sodium Phosphate (Decadron) 4 mg STK-MED ONCE 06/26/20 13:13 06/26/20 13:14 DC Dexmedetomidine HCl 400 mcg/ Sodium Chloride 100 ml @ 0 mls/hr CONT PRN 06/21/20 10:45 06/29/20 11:47 DC 06/29/20 06:11 15.1 MLS/HR Enoxaparin Sodium (Lovenox 40mg Syringe) 40 mg Q24H 06/18/20 21:00 07/01/20 21:13 40 MG Famotidine (Pepcid Vial) 20 mg BID 06/18/20 21:00 07/01/20 21:13 20 MG Fentanyl Citrate (Fentanyl 2ml Vial) 50 mcg PRN Q2HR PRN 06/23/20 16:45 06/30/20 12:28 50 MCG Furosemide (Lasix) 40 mg 1X ONCE 06/20/20 13:30 06/20/20 13:31 DC 06/20/20 14:38 40 MG Glycerin/ Hypromellose/ Polyethylene (Artificial Tears) 1 drop PRN Q15MIN PRN 06/17/20 12:00 06/17/20 12:39 DC Heparin Sodium (Porcine) (Heparin Sodium) 2,500 unit 1X ONCE 06/25/20 15:15 06/25/20 15:16 DC 06/25/20 15:09 2,500 UNIT Heparin Sodium/ Sodium Chloride (HEPARIN for ARTERIAL LINE FLUSH) 1,000 unit 1X ONCE 06/25/20 15:15 06/25/20 15:16 DC 06/25/20 15:09 1,000 UNIT Info (CONTRAST GIVEN -- Rx MONITORING) 1 each PRN DAILY PRN 06/17/20 08:15 06/19/20 08:14 DC Iohexol (Omnipaque 300 Mg/ml) 30 ml 1X ONCE 06/25/20 15:15 06/25/20 15:16 DC 06/25/20 15:09 30 ML Iohexol (Omnipaque 350 Mg/ml) 100 ml 1X ONCE 06/17/20 08:15 06/17/20 08:16 DC 06/17/20 08:17 100 ML Levothyroxine Sodium (Synthroid) 75 mcg DAILY06 06/18/20 21:00 07/02/20 06:43 75 MCG Lidocaine HCl (Lidocaine 1% 20ml Vial) 20 ml 1X ONCE 06/17/20 09:15 06/17/20 09:20 DC 06/17/20 09:15 20 ML Lidocaine HCl (Lidocaine Pf 2% Vial) 5 ml STK-MED ONCE 06/27/20 09:54 06/27/20 09:54 DC Lidocaine HCl (Xylocaine-Mpf 1% 2ml Vial) 2 ml 1X ONCE 06/25/20 15:15 06/25/20 15:16 DC 06/25/20 15:09 2 ML Lidocaine HCl (Xylocaine-Mpf 1% 5ml Vial) 5 ml STK-MED ONCE 06/17/20 09:26 06/17/20 09:26 DC Lisinopril (Prinivil) 5 mg DAILY 06/29/20 09:00 07/01/20 10:23 5 MG Magnesium Sulfate/ Dextrose 100 ml @ 100 mls/hr 1X ONCE 06/17/20 12:00 06/17/20 12:39 DC 06/17/20 12:22 100 MLS/HR Midazolam HCl 100 ml @ 0 mls/hr CONT PRN 06/25/20 11:45 06/29/20 11:47 DC 06/28/20 03:00 10 MLS/HR Midazolam HCl (Versed) 5 mg Q1HR PRN 06/17/20 12:45 06/29/20 13:48 5 MG Nitroglycerin (Nitroglycerin) 200 mcg 1X ONCE 06/25/20 15:15 06/25/20 15:16 DC 06/25/20 15:09 200 MCG Ondansetron HCl (Zofran) 4 mg STK-MED ONCE 06/26/20 13:13 06/26/20 13:13 DC Pantoprazole Sodium (PROTONIX VIAL for IV PUSH) 40 mg DAILY 06/18/20 09:00 06/17/20 12:39 DC Piperacillin Sod/ Tazobactam Sod (Zosyn Per Pharmacy) 1 each PRN DAILY PRN 06/17/20 08:45 06/27/20 11:36 DC Piperacillin Sod/ Tazobactam Sod 3.375 gm/Sodium Chloride 50 ml @ 100 mls/hr Q6HRS 06/29/20 10:00 07/02/20 06:43 100 MLS/HR Piperacillin Sod/ Tazobactam Sod 4.5 gm/Sodium Chloride 100 ml @ 200 mls/hr 1X ONCE 06/17/20 12:15 06/17/20 12:44 Cancel Potassium Bicarbonate (Potassium Effervescent Tablet) 40 meq 1X ONCE 06/18/20 09:45 06/18/20 09:48 DC 06/18/20 10:00 40 MEQ Potassium Chloride/Water 100 ml @ 100 mls/hr Q1H 06/25/20 18:00 06/25/20 19:59 DC 06/25/20 18:46 100 MLS/HR Prochlorperazine Edisylate (Compazine) 5 mg PACU PRN PRN 06/27/20 07:00 06/28/20 06:59 DC Propofol 100 ml @ 0 mls/hr CONT PRN 06/29/20 16:30 07/02/20 07:26 21.1 MLS/HR Propofol (Diprivan) 200 mg STK-MED ONCE 06/27/20 09:53 1/13/21 09:54 DC Ringer's Solution 1,000 ml @ 30 mls/hr Q24H 06/27/20 07:00 06/27/20 18:59 DC 06/27/20 08:39 30 MLS/HR Rocuronium [place]on (Zemuron) 50 mg STK-MED ONCE 06/26/20 11:37 06/26/20 11:38 DC Sevoflurane (Ultane) 30 ml STK-MED ONCE 06/26/20 13:37 06/26/20 13:38 DC Sodium Chloride 500 ml @ 500 mls/hr 1X PRN PRN 06/21/20 10:45 Vecuronium [place] (Norcuron Bolus) 10 mg 1X ONCE 06/29/20 14:31 06/29/20 17:19 DC 06/29/20 14:31 10 MG Verapamil HCl (Verapamil) 2.5 mg 1X ONCE 06/25/20 15:15 06/25/20 15:16 DC 06/25/20 15:09 2.5 MG Labs: Lab Laboratory Tests Test 07/01/20 12:10 07/02/20 04:05 O2 Saturation 97 % (92-99) Arterial Blood pH 7.48 (7.35-7.45) Arterial Blood pCO2 at Patient Temp 34 mmHg (35-46) Arterial Blood pO2 at Patient Temp 90 mmHg (75-108) Arterial Blood HCO3 25 mmol/L (21-28) Arterial Blood Base Excess 2 mmol/L (-3-3) FiO2 40% ps 12 peep 5 White Blood Count 11.8 x10^3/uL (4.0-11.0) Red Blood Count 3.60 x10^6/uL (3.50-5.40) Hemoglobin 10.6 g/dL (12.0-15.5) Hematocrit 32.7 % (36.0-47.0) Mean Corpuscular Volume 91 fL (79-100) Mean Corpuscular Hemoglobin 29 pg (25-35) Mean Corpuscular Hemoglobin Concent 32 g/dL (31-37) Red Cell Distribution Width 12.8 % (11.5-14.5) Platelet Count 416 x10^3/uL (140-400) Neutrophils (%) (Auto) 77 % (31-73) Lymphocytes (%) (Auto) 14 % (24-48) Monocytes (%) (Auto) 6 % (0-9) Eosinophils (%) (Auto) 3 % (0-3) Basophils (%) (Auto) 1 % (0-3) Neutrophils # (Auto) 9.0 x10^3/uL (1.8-7.7) Lymphocytes # (Auto) 1.6 x10^3/uL (1.0-4.8) Monocytes # (Auto) 0.7 x10^3/uL (0.0-1.1) Eosinophils # (Auto) 0.4 x10^3/uL (0.0-0.7) Basophils # (Auto) 0.1 x10^3/uL (0.0-0.2) Sodium Level 142 mmol/L (136-145) Potassium Level 3.7 mmol/L (3.5-5.1) Chloride Level 105 mmol/L (98-107) Carbon Dioxide Level 26 mmol/L (21-32) Anion Gap 11 (6-14) Blood Urea Nitrogen 12 mg/dL (7-20) Creatinine 0.6 mg/dL (0.6-1.0) Estimated GFR (Cockcroft-Gault) 103.0 BUN/Creatinine Ratio 20 (6-20) Glucose Level 110 mg/dL (70-99) Calcium Level 9.2 mg/dL (8.5-10.1) Total Bilirubin 0.4 mg/dL (0.2-1.0) Aspartate Amino Transf (AST/SGOT) 26 U/L (15-37) Alanine Aminotransferase (ALT/SGPT) 29 U/L (14-59) Alkaline Phosphatase 112 U/L (46-116) Total Protein 7.2 g/dL (6.4-8.2) Albumin 2.6 g/dL (3.4-5.0) Albumin/Globulin Ratio 0.6 (1.0-1.7) Objective: Assessment: 1. Cardiopulmonary arrest at home. s/p cardiac cath , normal coronaries 2. Leukocytosis, likely reactive. resolved 3. Lactic acidosis from #1. 4. Respiratory failure. suspected aspiration; status post trach placement 5. Anoxic Encephalopathy 6. Hypertension. 7. Pneumothorax.s/p CTS, 8. Rib fracture and sternal fracture. 9. Anemia 10. S/P Peg tube placement Plan: Plan of Care Continue Zosyn/Zyvox Follow-up trach aspirate cultures negative so far cont supportive care Monitor labs and cultures Overall prognosis poor Discussed with at bedside D/W SAÚL MAYES MD Jul 02, 2020 08:00
[2020-07-02] MEDS: ASPIRIN CHEWABLE 81 MG TABLET. PO SCH (08:04)
[2020-07-02] MEDS: AMIODARONE HCL 200 MG TABLET. PO SCH (08:04)
[2020-07-02] MEDS: CARVEDILOL 3.125 MG TABLET. PO SCH ×2 (08:04→17:00)
[2020-07-02] MEDS: FAMOTIDINE 20 MG/2 ML VIAL IVP SCH (08:05)
[2020-07-02] MEDS: LISINOPRIL 5 MG TABLET. PO SCH (08:05)
[2020-07-02] MEDS: IPRATRPIUM/ALBUTEROL 0.5/2.5MG 3 ML NEBU. NEB SCH ×4 (08:13→19:50)
--- NOTE | 2020-07-02 09:54 | PDOC ---
PROGRESS NOTES Date of Service DATE: 07/02/20 TIME: 09:51 Assessment Problems Medical Problems: (1) Cardiac arrest Status: Acute (2) Fracture of ribs, multiple Status: Acute (3) Hyperglycemia Status: Acute (4) Pneumonia Status: Acute (5) Pneumothorax, right Status: Acute (6) Sternal fracture Status: Acute (7) VF (ventricular fibrillation) Status: Acute Anoxic encephalopathy, ventricular fibrillation and asystole, improving, but not making much more progress Negative for Covid Status-post trach and PEG Trialed off vent 06/28 Plan Supportive care Holding on additional neurological tests Family wants to try 1 month at [facility] Discussed with Subjective None Objective Vital Signs Date Time Temp Pulse Resp B/P (MAP) Pulse Ox O2 Delivery O2 Flow Rate FiO2 07/02/20 09:00 80 22 141/61 (87) 97 Ventilator 07/02/20 07:22 99.3 99.3 Intake and Output 07/02/20 07:00 Intake Total 3307 ml Output Total 2485 ml Balance 822 ml IV Total 1074 ml Tube Feeding 1608 ml Other 625 ml Output Urine Total 2485 ml Gastric Drainage Total 0 ml PHYSICAL EXAM On ventilator PERRL. EOMI. CN: no focal findings. Muscle tone: normal. Muscle strength: Moving arms and legs, thrusts tongue DTR: 1+ Plantar reflex: Flexor Gait: not examined. Sensory exam: Not cooperative Cerebellar: Not cooperative Review of Relevant I have reviewed the following items afua (where applicable) has been applied. Labs Laboratory Tests Test 06/30/20 12:30 07/01/20 05:00 07/01/20 12:10 07/02/20 04:05 O2 Saturation 95 % (92-99) 97 % (92-99) Arterial Blood pH 7.44 (7.35-7.45) 7.48 (7.35-7.45) Arterial Blood pCO2 at Patient Temp 41 mmHg (35-46) 34 mmHg (35-46) Arterial Blood pO2 at Patient Temp 79 mmHg (75-108) 90 mmHg (75-108) Arterial Blood HCO3 27 mmol/L (21-28) 25 mmol/L (21-28) Arterial Blood Base Excess 3 mmol/L (-3-3) 2 mmol/L (-3-3) FiO2 40% ps 14 peep 5 40% ps 12 peep 5 White Blood Count 15.0 x10^3/uL (4.0-11.0) 11.8 x10^3/uL (4.0-11.0) Red Blood Count 3.56 x10^6/uL (3.50-5.40) 3.60 x10^6/uL (3.50-5.40) Hemoglobin 10.5 g/dL (12.0-15.5) 10.6 g/dL (12.0-15.5) Hematocrit 32.3 % (36.0-47.0) 32.7 % (36.0-47.0) Mean Corpuscular Volume 91 fL (79-100) 91 fL (79-100) Mean Corpuscular Hemoglobin 29 pg (25-35) 29 pg (25-35) Mean Corpuscular Hemoglobin Concent 32 g/dL (31-37) 32 g/dL (31-37) Red Cell Distribution Width 12.9 % (11.5-14.5) 12.8 % (11.5-14.5) Platelet Count 418 x10^3/uL (140-400) 416 x10^3/uL (140-400) Neutrophils (%) (Auto) 82 % (31-73) 77 % (31-73) Lymphocytes (%) (Auto) 10 % (24-48) 14 % (24-48) Monocytes (%) (Auto) 5 % (0-9) 6 % (0-9) Eosinophils (%) (Auto) 2 % (0-3) 3 % (0-3) Basophils (%) (Auto) 0 % (0-3) 1 % (0-3) Neutrophils # (Auto) 12.3 x10^3/uL (1.8-7.7) 9.0 x10^3/uL (1.8-7.7) Lymphocytes # (Auto) 1.5 x10^3/uL (1.0-4.8) 1.6 x10^3/uL (1.0-4.8) Monocytes # (Auto) 0.8 x10^3/uL (0.0-1.1) 0.7 x10^3/uL (0.0-1.1) Eosinophils # (Auto) 0.4 x10^3/uL (0.0-0.7) 0.4 x10^3/uL (0.0-0.7) Basophils # (Auto) 0.1 x10^3/uL (0.0-0.2) 0.1 x10^3/uL (0.0-0.2) Sodium Level 141 mmol/L (136-145) 142 mmol/L (136-145) Potassium Level 4.2 mmol/L (3.5-5.1) 3.7 mmol/L (3.5-5.1) Chloride Level 104 mmol/L (98-107) 105 mmol/L (98-107) Carbon Dioxide Level 25 mmol/L (21-32) 26 mmol/L (21-32) Anion Gap 12 (6-14) 11 (6-14) Blood Urea Nitrogen 12 mg/dL (7-20) 12 mg/dL (7-20) Creatinine 0.5 mg/dL (0.6-1.0) 0.6 mg/dL (0.6-1.0) Estimated GFR (Cockcroft-Gault) 127.2 103.0 BUN/Creatinine Ratio 24 (6-20) 20 (6-20) Glucose Level 109 mg/dL (70-99) 110 mg/dL (70-99) Calcium Level 9.3 mg/dL (8.5-10.1) 9.2 mg/dL (8.5-10.1) Total Bilirubin 0.4 mg/dL (0.2-1.0) 0.4 mg/dL (0.2-1.0) Aspartate Amino Transf (AST/SGOT) 25 U/L (15-37) 26 U/L (15-37) Alanine Aminotransferase (ALT/SGPT) 35 U/L (14-59) 29 U/L (14-59) Alkaline Phosphatase 114 U/L (46-116) 112 U/L (46-116) Creatine Kinase 50 U/L (26-192) Total Protein 6.4 g/dL (6.4-8.2) 7.2 g/dL (6.4-8.2) Albumin 2.6 g/dL (3.4-5.0) 2.6 g/dL (3.4-5.0) Albumin/Globulin Ratio 0.7 (1.0-1.7) 0.6 (1.0-1.7) Laboratory Tests Test 07/01/20 12:10 07/02/20 04:05 O2 Saturation 97 % (92-99) Arterial Blood pH 7.48 (7.35-7.45) Arterial Blood pCO2 at Patient Temp 34 mmHg (35-46) Arterial Blood pO2 at Patient Temp 90 mmHg (75-108) Arterial Blood HCO3 25 mmol/L (21-28) Arterial Blood Base Excess 2 mmol/L (-3-3) FiO2 40% ps 12 peep 5 White Blood Count 11.8 x10^3/uL (4.0-11.0) Red Blood Count 3.60 x10^6/uL (3.50-5.40) Hemoglobin 10.6 g/dL (12.0-15.5) Hematocrit 32.7 % (36.0-47.0) Mean Corpuscular Volume 91 fL (79-100) Mean Corpuscular Hemoglobin 29 pg (25-35) Mean Corpuscular Hemoglobin Concent 32 g/dL (31-37) Red Cell Distribution Width 12.8 % (11.5-14.5) Platelet Count 416 x10^3/uL (140-400) Neutrophils (%) (Auto) 77 % (31-73) Lymphocytes (%) (Auto) 14 % (24-48) Monocytes (%) (Auto) 6 % (0-9) Eosinophils (%) (Auto) 3 % (0-3) Basophils (%) (Auto) 1 % (0-3) Neutrophils # (Auto) 9.0 x10^3/uL (1.8-7.7) Lymphocytes # (Auto) 1.6 x10^3/uL (1.0-4.8) Monocytes # (Auto) 0.7 x10^3/uL (0.0-1.1) Eosinophils # (Auto) 0.4 x10^3/uL (0.0-0.7) Basophils # (Auto) 0.1 x10^3/uL (0.0-0.2) Sodium Level 142 mmol/L (136-145) Potassium Level 3.7 mmol/L (3.5-5.1) Chloride Level 105 mmol/L (98-107) Carbon Dioxide Level 26 mmol/L (21-32) Anion Gap 11 (6-14) Blood Urea Nitrogen 12 mg/dL (7-20) Creatinine 0.6 mg/dL (0.6-1.0) Estimated GFR (Cockcroft-Gault) 103.0 BUN/Creatinine Ratio 20 (6-20) Glucose Level 110 mg/dL (70-99) Calcium Level 9.2 mg/dL (8.5-10.1) Total Bilirubin 0.4 mg/dL (0.2-1.0) Aspartate Amino Transf (AST/SGOT) 26 U/L (15-37) Alanine Aminotransferase (ALT/SGPT) 29 U/L (14-59) Alkaline Phosphatase 112 U/L (46-116) Total Protein 7.2 g/dL (6.4-8.2) Albumin 2.6 g/dL (3.4-5.0) Albumin/Globulin Ratio 0.6 (1.0-1.7) Microbiology 06/30/20 Gram Stain - Final, Resulted 06/30/20 Aerobic and Anaerobic Culture - Preliminary, Resulted 06/17/20 Blood Culture - Final, Complete NO GROWTH AFTER 5 DAYS Medications Current Medications Amiodarone HCl 150 mg/Dextrose 103 ml @ 618 mls/hr 1X ONCE IV Last administered on 06/17/20at 07:00; Start 06/17/20 at 07:00; Stop 06/17/20 at 07:09; Status DC Amiodarone HCl 450 mg/Dextrose 259 ml @ 33 mls/hr 1X ONCE IV ; Start 06/17/20 at 07:00; Stop 06/17/20 at 14:50; Status DC Sodium Chloride 1,000 ml @ 1,000 mls/hr 1X ONCE IV Last administered on 1at 08:11; Start 06/17/20 at 07:15; Stop 06/17/20 at 08:14; Status DC Midazolam HCl 100 ml @ 0 mls/hr 1X ONCE IV ; Start 06/17/20 at 07:15; Stop 06/17/20 at 07:16; Status DC Midazolam HCl (Versed) 5 mg STK-MED ONCE .ROUTE ; Start 06/17/20 at 07:17; Stop 06/17/20 at 07:17; Status DC Iohexol (Omnipaque 300 Mg/ml) 75 ml 1X ONCE IV Last administered on 06/17/20at 08:17; Start 06/17/20 at 08:15; Stop 06/17/20 at 08:16; Status DC Iohexol (Omnipaque 350 Mg/ml) 100 ml 1X ONCE IV Last administered on 06/17/20at 08:17; Start 06/17/20 at 08:15; Stop 06/17/20 at 08:16; Status DC Info (CONTRAST GIVEN -- Rx MONITORING) 1 each PRN DAILY PRN MC SEE COMMENTS; Start 06/17/20 at 08:15; Stop 06/19/20 at 08:14; Status DC Sodium Chloride 1,000 ml @ 1,000 mls/hr 1X ONCE IV Last administered on 06/17/20at 08:25; Start 06/17/20 at 08:15; Stop 06/17/20 at 09:14; Status DC Potassium Chloride/Water 100 ml @ 50 mls/hr 1X ONCE IV Last administered on 06/17/20at 10:16; Start 06/17/20 at 09:00; Stop 06/17/20 at 10:59; Status DC Piperacillin Sod/ Tazobactam Sod (Zosyn Per Pharmacy) 1 each PRN DAILY PRN MC SEE COMMENTS; Start 06/17/20 at 08:45; Stop 06/27/20 at 11:36; Status DC Piperacillin Sod/ Tazobactam Sod 4.5 gm/Sodium Chloride 100 ml @ 200 mls/hr 1X ONCE IV Last administered on 06/17/20at 10:15; Start 06/17/20 at 08:45; Stop 06/17/20 at 09:14; Status DC Sodium Chloride 1,000 ml @ 125 mls/hr Q8H IV Last administered on 06/17/20at 23:39; Start 06/17/20 at 09:00; Stop 06/18/20 at 08:59; Status DC Propofol (Diprivan) 200 mg 1X ONCE IV Last administered on 06/17/20at 09:00; Start 06/17/20 at 09:00; Stop 06/17/20 at 09:01; Status DC Propofol 100 ml @ As Directed STK-MED ONCE IV ; Start 06/17/20 at 09:05; Stop 06/17/20 at 09:05; Status DC Lidocaine HCl (Lidocaine 1% 20ml Vial) 20 ml 1X ONCE INJ Last administered on 06/17/20at 09:15; Start 06/17/20 at 09:15; Stop 06/17/20 at 09:20; Status DC Lidocaine HCl (Xylocaine-Mpf 1% 5ml Vial) 5 ml STK-MED ONCE .ROUTE ; Start 06/17/20 at 09:26; Stop 06/17/20 at 09:26; Status DC Sodium Chloride 1,000 ml @ 1,000 mls/hr 1X ONCE IV Last administered on 06/17/20at 10:15; Start 06/17/20 at 10:15; Stop 06/17/20 at 11:14; Status DC Propofol 100 ml @ 3.819 mls/ hr CONT PRN IV PER PROTOCOL Last administered on 06/25/20at 06:12; Start 06/17/20 at 10:45; Stop 06/29/20 at 11:47; Status DC Fentanyl Citrate (Fentanyl 2ml Vial) 100 mcg 1X ONCE IV ; Start 06/17/20 at 12:00; Stop 06/17/20 at 12:39; Status DC Midazolam HCl (Versed) 2 mg 1X ONCE IV ; Start 06/17/20 at 12:00; Stop 06/17/20 at 12:39; Status DC Magnesium Sulfate/ Dextrose 100 ml @ 100 mls/hr 1X ONCE IV Last administered on 06/17/20at 12:22; Start 06/17/20 at 12:00; Stop 06/17/20 at 12:39; Status DC Buspirone HCl (Buspar) 30 mg Q8H NG Last administered on 06/17/20at 12:31; Start 06/17/20 at 12:00; Stop 06/17/20 at 12:39; Status DC Glycerin/ Hypromellose/ Polyethylene (Artificial Tears) 1 drop Q6HRS OU ; Start 06/17/20 at 12:00; Stop 06/17/20 at 12:39; Status DC Glycerin/ Hypromellose/ Polyethylene (Artificial Tears) 1 drop PRN Q15MIN PRN OU DRY EYE; Start 06/17/20 at 12:00; Stop 06/17/20 at 12:39; Status DC Heparin Sodium (Porcine) (Heparin Sodium) 5,000 unit BID SQ ; Start 06/17/20 at 21:00; Stop 06/17/20 at 12:39; Status DC Pantoprazole Sodium (PROTONIX VIAL for IV PUSH) 40 mg DAILY IVP ; Start 06/18/20 at 09:00; Stop 06/17/20 at 12:39; Status DC Fentanyl Citrate 30 ml @ 0 mls/hr CONT PRN IV PER PROTOCOL.; Start 06/17/20 at 12:00; Stop 06/17/20 at 12:39; Status DC Propofol 100 ml @ 0 mls/hr CONT PRN IV PER PROTOCOL.; Start 06/17/20 at 12:00; Stop 06/17/20 at 12:39; Status DC Midazolam HCl 100 ml @ 0 mls/hr CONT PRN IV PER PROTOCOL; Start 06/17/20 at 12:00; Stop 06/17/20 at 12:39; Status DC Vecuronium [place] (Norcuron Bolus) 10 mg PRN Q1HR PRN IV SHIVERING; Start 06/17/20 at 12:00; Stop 06/17/20 at 12:39; Status DC Piperacillin Sod/ Tazobactam Sod 4.5 gm/Sodium Chloride 100 ml @ 200 mls/hr 1X ONCE IV ; Start 06/17/20 at 12:15; Stop 06/17/20 at 12:44; Status Cancel Midazolam HCl (Versed) 5 mg Q1HR PRN IV SEDATION Last administered on 06/29/20at 13:48; Start 06/17/20 at 12:45 Fentanyl Citrate (Fentanyl 2ml Vial) 100 mcg Q1HR IVP Last administered on 06/17/20at 18:55; Start 06/17/20 at 13:00; Stop 06/17/20 at 23:41; Status DC Piperacillin Sod/ Tazobactam Sod 3.375 gm/Sodium Chloride 50 ml @ 100 mls/hr Q6H IV Last administered on 06/27/20at 05:31; Start 06/17/20 at 16:00; Stop 06/27/20 at 11:30; Status DC Potassium Bicarbonate (Potassium Effervescent Tablet) 40 meq 1X ONCE NG Last administered on 06/18/20at 10:00; Start 06/18/20 at 09:45; Stop 06/18/20 at 09:48; Status DC Albuterol/ Ipratropium (Duoneb) 3 ml RTQID NEB Last administered on 07/02/20at 08:13; Start 06/18/20 at 20:00 Famotidine (Pepcid Vial) 20 mg BID IVP Last administered on 07/02/20at 08:05; Start 06/18/20 at 21:00 Enoxaparin Sodium (Lovenox 40mg Syringe) 40 mg Q24H SQ Last administered on 07/01/20at 21:13; Start 06/18/20 at 21:00 Levothyroxine Sodium (Synthroid) 75 mcg DAILY06 PO Last administered on 06:43; Start 06/18/20 at 21:00 Fentanyl Citrate 30 ml @ 0 mls/hr CONT PRN IV SEE PROTOCOL Last administered on 06/28/20at 04:56; Start 06/18/20 at 20:15; Stop 06/29/20 at 11:47; Status DC Carvedilol (Coreg) 3.125 mg BIDWMEALS PO Last administered on 07/02/20at 08:04; Start 06/19/20 at 17:00 Atorvastatin Calcium (Lipitor) 20 mg QHS PO Last administered on 07/01/20at 21:13; Start 06/19/20 at 21:00 Aspirin (Aspirin Chewable) 81 mg DAILYWBKFT PO Last administered on 07/02/20at 08:04; Start 06/20/20 at 08:00 Aspirin (Aspirin Chewable) 81 mg 1X ONCE PO Last administered on 06/19/20at 15:57; Start 06/19/20 at 15:30; Stop 06/19/20 at 15:37; Status DC Potassium Chloride/Water 100 ml @ 100 mls/hr 1X ONCE IV Last administered on 06/19/20at 15:57; Start 06/19/20 at 15:30; Stop 06/19/20 at 16:29; Status DC Amiodarone HCl (Cordarone) 400 mg DAILY PO Last administered on 07/02/20at 08:04; Start 06/20/20 at 09:00 Furosemide (Lasix) 40 mg 1X ONCE IVP Last administered on 06/20/20at 14:38; Start 06/20/20 at 13:30; Stop 06/20/20 at 13:31; Status DC Potassium Chloride/Water 100 ml @ 100 mls/hr 1X ONCE IV Last administered on 06/20/20at 14:39; Start 06/20/20 at 13:30; Stop 06/20/20 at 14:29; Status DC Dexmedetomidine HCl 400 mcg/ Sodium Chloride 100 ml @ 0 mls/hr CONT PRN IV PER PROTOCOL Last administered on 06/29/20at 06:11; Start 06/21/20 at 10:45; Stop 06/29/20 at 11:47; Status DC Sodium Chloride 500 ml @ 500 mls/hr 1X PRN PRN IV SEE COMMENTS; Start 06/21/20 at 10:45 Atropine Sulfate (ATROPINE 0.5mg SYRINGE) 0.5 mg PRN Q5MIN PRN IV SEE COMMENTS; Start 06/21/20 at 10:45; Stop 06/29/20 at 11:47; Status DC Fentanyl Citrate (Fentanyl 2ml Vial) 50 mcg PRN Q2HR PRN IVP PAIN Last administered on 06/30/20at 12:28; Start 06/23/20 at 16:45 Midazolam HCl 100 ml @ 0 mls/hr CONT PRN IV SEE PROTOCOL Last administered on 06/28/20at 03:00; Start 06/25/20 at 11:45; Stop 06/29/20 at 11:47; Status DC Lidocaine HCl (Xylocaine-Mpf 1% 2ml Vial) 2 ml STK-MED ONCE .ROUTE ; Start 06/25/20 at 14:21; Stop 06/25/20 at 14:21; Status DC Iohexol (Omnipaque 300 Mg/ml) 100 ml STK-MED ONCE .ROUTE ; Start 06/25/20 at 14:21; Stop 06/25/20 at 14:21; Status DC Heparin Sodium/ Sodium Chloride 1,000 ml @ As Directed STK-MED ONCE .ROUTE ; Start 06/25/20 at 14:21; Stop 06/25/20 at 14:21; Status DC Heparin Sodium (Porcine) (Heparin Sodium) 10,000 unit STK-MED ONCE .ROUTE ; Start 06/25/20 at 14:31; Stop 06/25/20 at 14:31; Status DC Verapamil HCl (Verapamil) 5 mg STK-MED ONCE .ROUTE ; Start 06/25/20 at 14:31; Stop 06/25/20 at 14:31; Status DC Nitroglycerin (Nitroglycerin) 200 mcg STK-MED ONCE .ROUTE ; Start 06/25/20 at 14:31; Stop 06/25/20 at 14:31; Status DC Nitroglycerin (Nitroglycerin) 200 mcg 1X ONCE IART Last administered on 06/25/20at 15:09; Start 06/25/20 at 15:15; Stop 06/25/20 at 15:16; Status DC Verapamil HCl (Verapamil) 2.5 mg 1X ONCE IART Last administered on 06/25/20at 15:09; Start 06/25/20 at 15:15; Stop 06/25/20 at 15:16; Status DC Heparin Sodium (Porcine) (Heparin Sodium) 2,500 unit 1X ONCE IART Last administered on 06/25/20at 15:09; Start 06/25/20 at 15:15; Stop 06/25/20 at 15:16; Status DC Heparin Sodium/ Sodium Chloride (HEPARIN for ARTERIAL LINE FLUSH) 1,000 unit 1X ONCE IART Last administered on 06/25/20at 15:09; Start 06/25/20 at 15:15; Stop 06/25/20 at 15:16; Status DC Iohexol (Omnipaque 300 Mg/ml) 30 ml 1X ONCE IART Last administered on 06/25/20at 15:09; Start 06/25/20 at 15:15; Stop 06/25/20 at 15:16; Status DC Lidocaine HCl (Xylocaine-Mpf 1% 2ml Vial) 2 ml 1X ONCE INJ Last administered on 06/25/20at 15:09; Start 06/25/20 at 15:15; Stop 06/25/20 at 15:16; Status DC Amino Acids/ Glycerin/ Electrolytes 1,000 ml @ 80 mls/hr [id number] IV Last administered on 06/27/20at 20:50; Start 06/25/20 at 17:30; Stop 06/28/20 at 11:35; Status DC Potassium Chloride/Water 100 ml @ 100 mls/hr Q1H IV Last administered on 06/25/20at 18:46; Start 06/25/20 at 18:00; Stop 06/25/20 at 19:59; Status DC Rocuronium [place] (Zemuron) 50 mg STK-MED ONCE .ROUTE ; Start 06/26/20 at 11:37; Stop 06/26/20 at 11:38; Status DC Cellulose (Surgicel Fibrillar 1x2) 1 each STK-MED ONCE .ROUTE Last administered on 06/26/20at 13:20; Start 06/26/20 at 12:19; Stop 06/26/20 at 12:19; Status DC Bupivacaine HCl (Sensorcaine Mpf 0.5%) 30 ml STK-MED ONCE .ROUTE ; Start 06/26/20 at 12:19; Stop 06/26/20 at 12:19; Status DC Ondansetron HCl (Zofran) 4 mg STK-MED ONCE .ROUTE ; Start 06/26/20 at 13:13; Stop 06/26/20 at 13:13; Status DC Dexamethasone Sodium Phosphate (Decadron) 4 mg STK-MED ONCE .ROUTE ; Start 06/26/20 at 13:13; Stop 06/26/20 at 13:14; Status DC Cellulose (Surgicel Fibrillar 1x2) 1 each STK-MED ONCE .ROUTE Last administered on 06/26/20at 13:22; Start 06/26/20 at 13:25; Stop 06/26/20 at 13:25; Status DC Sevoflurane (Ultane) 30 ml STK-MED ONCE IH ; Start 06/26/20 at 13:37; Stop 06/26/20 at 13:38; Status DC Propofol (Diprivan) 200 mg STK-MED ONCE IV ; Start 06/26/20 at 13:38; Stop 06/26/20 at 13:38; Status DC Ringer's Solution 1,000 ml @ 30 mls/hr Q24H IV Last administered on 06/27/20at 08:39; Start 06/27/20 at 07:00; Stop 06/27/20 at 18:59; Status DC Prochlorperazine Edisylate (Compazine) 5 mg PACU PRN PRN IV NAUSEA, MRX1; Start 06/27/20 at 07:00; Stop 06/28/20 at 06:59; Status DC Propofol (Diprivan) 200 mg STK-MED ONCE IV ; Start 06/27/20 at 09:53; Stop 06/27/20 at 09:54; Status DC Lidocaine HCl (Lidocaine Pf 2% Vial) 5 ml STK-MED ONCE .ROUTE ; Start 06/27/20 at 09:54; Stop 06/27/20 at 09:54; Status DC Lisinopril (Prinivil) 5 mg DAILY PO Last administered on 07/02/20at 08:05; Start 06/29/20 at 09:00 Acetaminophen/ Hydrocodone Bitart (Lortab 7.5-325/ 15ml Oral Solution) 10 ml 1X ONCE PEG Last administered on 06/28/20at 12:37; Start 06/28/20 at 12:30; Stop 06/28/20 at 12:31; Status DC Piperacillin Sod/ Tazobactam Sod 3.375 gm/Sodium Chloride 50 ml @ 100 mls/hr Q6HRS IV Last administered on 07/02/20at 06:43; Start 06/29/20 at 10:00 Vecuronium [place] (Norcuron Bolus) 10 mg STK-MED ONCE IV ; Start 06/29/20 at 14:31; Stop 06/29/20 at 14:31; Status DC Propofol 100 ml @ 0 mls/hr CONT PRN IV PER PROTOCOL Last administered on 07/02/20at 07:26; Start 06/29/20 at 16:30 Vecuronium [place] (Norcuron Bolus) 10 mg 1X ONCE IV Last administered on 06/29/20at 14:31; Start 06/29/20 at 14:31; Stop 06/29/20 at 17:19; Status DC Daptomycin 400 mg/ Sodium Chloride 50 ml @ 100 mls/hr Q24H IV Last administered on 07/01/20at 10:21; Start 06/30/20 at 10:00 Active Scripts Active Reported Acetaminophen-Diphenhyd 500-25 (Acetaminophen/Diphenhydramine) 1 Each Tablet 1 Each PO HS PRN Naproxen 500 Mg Tablet 1 Tab PO BID PRN 30 Days Tramadol Hcl 50 Mg Tablet 50 Mg PO Q4HRS Levothyroxine Sodium 75 Mcg Tablet 1 Tab PO DAILY Adderall 20 Mg Tablet (Dextroamphetamine/Amphetamine) 20 Mg Tablet 1 Tab PO DAILY MDD 1 Tablet(s) 5 Days Prozac (Fluoxetine Hcl) 20 Mg Capsule 1 Cap PO [id number] Vitals/I & O Vital Sign - Last 24 Hours 07/01/20 07/01/20 07/01/20 07/01/20 10:22 10:22 10:23 12:00 Pulse 84 84 84 B/P (MAP) 142/80 142/80 142/80 O2 Delivery Mechanical Ventilator 07/01/20 07/01/20 07/01/20 07/01/20 12:03 12:38 13:59 16:00 Pulse Ox 97 97 O2 Delivery Ventilator Ventilator Mechanical Ventilator 07/01/20 07/01/20 07/01/20 07/01/20 16:20 18:00 19:00 20:00 Pulse 68 78 Resp 18 B/P (MAP) 82/48 131/69 (89) Pulse Ox 98 100 O2 Delivery Ventilator Ventilator Mechanical Ventilator 07/01/20 07/01/20 07/01/20 07/01/20 20:00 21:00 21:29 22:00 Temp 97.8 97.8 Pulse 58 64 58 Resp 19 20 20 B/P (MAP) 102/72 (82) 96/57 (70) 115/65 (82) Pulse Ox 100 100 98 100 O2 Delivery Ventilator Ventilator Ventilator Ventilator 07/01/20 07/02/20 07/02/20 07/02/20 23:00 00:00 00:00 00:43 Temp 98.2 98.2 Pulse 62 76 Resp 19 19 B/P (MAP) 104/62 (76) 142/71 (94) Pulse Ox 100 99 98 O2 Delivery Ventilator Ventilator Mechanical Ventilator Ventilator 07/02/20 07/02/20 07/02/20 07/02/20 01:00 02:00 03:00 04:00 Temp 98.5 98.5 Pulse 82 82 80 80 Resp 20 20 19 19 B/P (MAP) 145/67 (93) 135/83 (100) 107/77 (87) 144/54 (84) Pulse Ox 99 98 98 100 O2 Delivery Ventilator Ventilator Ventilator Ventilator 07/02/20 07/02/20 07/02/20 07/02/20 04:00 05:00 05:09 07:22 Temp 99.3 99.3 Pulse 77 82 Resp 20 22 B/P (MAP) 146/76 (99) 141/72 (95) Pulse Ox 99 100 98 O2 Delivery Mechanical Ventilator Ventilator Ventilator Ventilator 07/02/20 07/02/20 07/02/20 07/02/20 08:00 08:03 08:04 08:04 Pulse 82 82 82 Resp 22 B/P (MAP) 129/93 (105) 129/93 129/93 Pulse Ox 95 O2 Delivery Mechanical Ventilator Ventilator 07/02/20 07/02/20 07/02/20 07/02/20 08:05 08:13 08:19 09:00 Pulse 82 80 Resp 22 B/P (MAP) 129/93 141/61 (87) Pulse Ox 98 97 O2 Delivery Ventilator Ventilator Ventilator Intake and Output 07/01/20 07/01/20 07/02/20 15:00 23:00 07:00 Intake Total 250 ml 1490 ml 1567 ml Output Total 1220 ml 640 ml 625 ml Balance -970 ml 850 ml 942 ml Justicifation of Admission Dx: Justifications for Admission: Justification of Admission Dx: N/A JEFF FLORES MD Jul 02, 2020 09:54
[2020-07-02] MEDS: DAPTOmycin (GENERIC) IVPB 400 MG in IV NORMAL SALINE 50ML 50 ML IV SCH (09:57)
--- NOTE | 2020-07-02 10:00 | PDOC ---
PULMONARY PROGRESS NOTES DATE: 07/02/20 TIME: 09:58 Subjective S/P cardiac arrest 06/17 remains on vent support 40% and PEEP of 5, pressure support during the day, assist control at night S/P trach on 06/26 S/P peg 06/27 Not much clinical change Vitals Vital Signs Date Time Temp Pulse Resp B/P (MAP) Pulse Ox O2 Delivery O2 Flow Rate FiO2 07/02/20 09:00 80 22 141/61 (87) 97 Ventilator 07/02/20 07:22 99.3 99.3 HEENT: Other (nc at perrl nose clear ) Lungs: Clear Cardiovascular: S1, S2 Abdomen: Soft, Non-tender Extremities: No Edema Skin: Warm Labs Laboratory Tests Test 06/30/20 12:30 07/01/20 05:00 07/01/20 12:10 07/02/20 04:05 O2 Saturation 95 % (92-99) 97 % (92-99) Arterial Blood pH 7.44 (7.35-7.45) 7.48 (7.35-7.45) Arterial Blood pCO2 at Patient Temp 41 mmHg (35-46) 34 mmHg (35-46) Arterial Blood pO2 at Patient Temp 79 mmHg (75-108) 90 mmHg (75-108) Arterial Blood HCO3 27 mmol/L (21-28) 25 mmol/L (21-28) Arterial Blood Base Excess 3 mmol/L (-3-3) 2 mmol/L (-3-3) FiO2 40% ps 14 peep 5 40% ps 12 peep 5 White Blood Count 15.0 x10^3/uL (4.0-11.0) 11.8 x10^3/uL (4.0-11.0) Red Blood Count 3.56 x10^6/uL (3.50-5.40) 3.60 x10^6/uL (3.50-5.40) Hemoglobin 10.5 g/dL (12.0-15.5) 10.6 g/dL (12.0-15.5) Hematocrit 32.3 % (36.0-47.0) 32.7 % (36.0-47.0) Mean Corpuscular Volume 91 fL (79-100) 91 fL (79-100) Mean Corpuscular Hemoglobin 29 pg (25-35) 29 pg (25-35) Mean Corpuscular Hemoglobin Concent 32 g/dL (31-37) 32 g/dL (31-37) Red Cell Distribution Width 12.9 % (11.5-14.5) 12.8 % (11.5-14.5) Platelet Count 418 x10^3/uL (140-400) 416 x10^3/uL (140-400) Neutrophils (%) (Auto) 82 % (31-73) 77 % (31-73) Lymphocytes (%) (Auto) 10 % (24-48) 14 % (24-48) Monocytes (%) (Auto) 5 % (0-9) 6 % (0-9) Eosinophils (%) (Auto) 2 % (0-3) 3 % (0-3) Basophils (%) (Auto) 0 % (0-3) 1 % (0-3) Neutrophils # (Auto) 12.3 x10^3/uL (1.8-7.7) 9.0 x10^3/uL (1.8-7.7) Lymphocytes # (Auto) 1.5 x10^3/uL (1.0-4.8) 1.6 x10^3/uL (1.0-4.8) Monocytes # (Auto) 0.8 x10^3/uL (0.0-1.1) 0.7 x10^3/uL (0.0-1.1) Eosinophils # (Auto) 0.4 x10^3/uL (0.0-0.7) 0.4 x10^3/uL (0.0-0.7) Basophils # (Auto) 0.1 x10^3/uL (0.0-0.2) 0.1 x10^3/uL (0.0-0.2) Sodium Level 141 mmol/L (136-145) 142 mmol/L (136-145) Potassium Level 4.2 mmol/L (3.5-5.1) 3.7 mmol/L (3.5-5.1) Chloride Level 104 mmol/L (98-107) 105 mmol/L (98-107) Carbon Dioxide Level 25 mmol/L (21-32) 26 mmol/L (21-32) Anion Gap 12 (6-14) 11 (6-14) Blood Urea Nitrogen 12 mg/dL (7-20) 12 mg/dL (7-20) Creatinine 0.5 mg/dL (0.6-1.0) 0.6 mg/dL (0.6-1.0) Estimated GFR (Cockcroft-Gault) 127.2 103.0 BUN/Creatinine Ratio 24 (6-20) 20 (6-20) Glucose Level 109 mg/dL (70-99) 110 mg/dL (70-99) Calcium Level 9.3 mg/dL (8.5-10.1) 9.2 mg/dL (8.5-10.1) Total Bilirubin 0.4 mg/dL (0.2-1.0) 0.4 mg/dL (0.2-1.0) Aspartate Amino Transf (AST/SGOT) 25 U/L (15-37) 26 U/L (15-37) Alanine Aminotransferase (ALT/SGPT) 35 U/L (14-59) 29 U/L (14-59) Alkaline Phosphatase 114 U/L (46-116) 112 U/L (46-116) Creatine Kinase 50 U/L (26-192) Total Protein 6.4 g/dL (6.4-8.2) 7.2 g/dL (6.4-8.2) Albumin 2.6 g/dL (3.4-5.0) 2.6 g/dL (3.4-5.0) Albumin/Globulin Ratio 0.7 (1.0-1.7) 0.6 (1.0-1.7) Laboratory Tests Test 07/01/20 12:10 07/02/20 04:05 O2 Saturation 97 % (92-99) Arterial Blood pH 7.48 (7.35-7.45) Arterial Blood pCO2 at Patient Temp 34 mmHg (35-46) Arterial Blood pO2 at Patient Temp 90 mmHg (75-108) Arterial Blood HCO3 25 mmol/L (21-28) Arterial Blood Base Excess 2 mmol/L (-3-3) FiO2 40% ps 12 peep 5 White Blood Count 11.8 x10^3/uL (4.0-11.0) Red Blood Count 3.60 x10^6/uL (3.50-5.40) Hemoglobin 10.6 g/dL (12.0-15.5) Hematocrit 32.7 % (36.0-47.0) Mean Corpuscular Volume 91 fL (79-100) Mean Corpuscular Hemoglobin 29 pg (25-35) Mean Corpuscular Hemoglobin Concent 32 g/dL (31-37) Red Cell Distribution Width 12.8 % (11.5-14.5) Platelet Count 416 x10^3/uL (140-400) Neutrophils (%) (Auto) 77 % (31-73) Lymphocytes (%) (Auto) 14 % (24-48) Monocytes (%) (Auto) 6 % (0-9) Eosinophils (%) (Auto) 3 % (0-3) Basophils (%) (Auto) 1 % (0-3) Neutrophils # (Auto) 9.0 x10^3/uL (1.8-7.7) Lymphocytes # (Auto) 1.6 x10^3/uL (1.0-4.8) Monocytes # (Auto) 0.7 x10^3/uL (0.0-1.1) Eosinophils # (Auto) 0.4 x10^3/uL (0.0-0.7) Basophils # (Auto) 0.1 x10^3/uL (0.0-0.2) Sodium Level 142 mmol/L (136-145) Potassium Level 3.7 mmol/L (3.5-5.1) Chloride Level 105 mmol/L (98-107) Carbon Dioxide Level 26 mmol/L (21-32) Anion Gap 11 (6-14) Blood Urea Nitrogen 12 mg/dL (7-20) Creatinine 0.6 mg/dL (0.6-1.0) Estimated GFR (Cockcroft-Gault) 103.0 BUN/Creatinine Ratio 20 (6-20) Glucose Level 110 mg/dL (70-99) Calcium Level 9.2 mg/dL (8.5-10.1) Total Bilirubin 0.4 mg/dL (0.2-1.0) Aspartate Amino Transf (AST/SGOT) 26 U/L (15-37) Alanine Aminotransferase (ALT/SGPT) 29 U/L (14-59) Alkaline Phosphatase 112 U/L (46-116) Total Protein 7.2 g/dL (6.4-8.2) Albumin 2.6 g/dL (3.4-5.0) Albumin/Globulin Ratio 0.6 (1.0-1.7) Medications Active Scripts Medications Dose Route/Sig Max Daily Dose Days Date Category Acetaminophen-Diphenhyd 500-25 (Acetaminophen/Diphenhydramine) 1 Each Tablet 1 Each PO HS PRN 06/18/20 Reported Naproxen 500 Mg Tablet 1 Tab PO BID PRN 30 06/18/20 Reported Tramadol Hcl 50 Mg Tablet 50 Mg PO Q4HRS 06/18/20 Reported Levothyroxine Sodium 75 Mcg Tablet 1 Tab PO DAILY 06/18/20 Reported Adderall 20 Mg Tablet (Dextroamphetamine/Amphetamine) 20 Mg Tablet 1 Tab PO DAILY MDD 1 Tablet(s) 5 06/18/20 Reported Prozac (Fluoxetine Hcl) 20 Mg Capsule 1 Cap PO [id number] 06/18/20 Reported Comments CXR IMPRESSION: Left lung base opacities likely consolidative process such as pneumonia. Small left pleural effusion. Impression . IMPRESSION: 1. Acute respiratory failure secondary to [id number] cardiopulmonary arrest/ anoxic encephalopathy-- now S/P trach 2. Nwe-lc-ejtdsrlu ventricular fibrillation and asystole leading to anoxic brain injury. 3. Anoxic encephalopathy. 4. COVID neg 5. Morbid obesity. 6. Leukocytosis--improved 7. Lactic acidosis secondary to [id number] cardiac arrest. 8. Abnormal x-ray revealing bibasilar atelectasis, infiltrates. 9. Pneumothorax secondary to CPR.resolved 10. Sternal sternal fracture secondary to CPR. 11. ? Pneumonia positive, gram-negative, gram-positive. Plan . PLAN: Continue current support with assist control ventilation, Fi02 40% PEEP 5, Continue pressure support during the day, assist control at night, currently pressure support of 14/5 at 40% tolerating well Clinically consistent with Anoxic encephalopathy Trach 06/26/20, PEG on 06/27/20 Follow CXR/ABG-- reviewed Follow infectious disease recommendations in regards to antibiotics, currently on daptomycin and Zosyn, follow cultures no growth to date Follow neurology recs--no new recommendations Follow Cardiology recs-- post cardiac cath 06/25/20-- cath was clean w/ normal filling pressures Continue tube feeding for nutritional support DVT/GI PPX D/W RN and RT Social work for D/C planning --[facility] declined, family would like to give the patient a full 30 days to assess level of recovery before p otentially withdrawing care. The patient would not have wanted to live on life support or with a feeding tube for prolonged period of time per family. PT. is FULL CODE Critical care time 0900-0930AM NIKA GARNER MD Jul 02, 2020 10:00
--- NOTE | 2020-07-02 10:24 | PDOC ---
Date of Service: DATE: 07/02/20 TIME: 10:19 Subjective: Subjective: Supportive present. Objective: Objective: D/w nurse - PEG functioning well, has rectal tube. Awaiting DC plans. Vital Signs: Vital Signs Date Time Temp Pulse Resp B/P (MAP) Pulse Ox O2 Delivery O2 Flow Rate FiO2 07/02/20 10:11 81 18 152/95 (114) 98 Ventilator 07/02/20 07:22 99.3 99.3 Labs: Laboratory Tests Test 07/01/20 12:10 07/02/20 04:05 O2 Saturation 97 % Arterial Blood pH 7.48 Arterial Blood pCO2 at Patient Temp 34 mmHg Arterial Blood pO2 at Patient Temp 90 mmHg Arterial Blood HCO3 25 mmol/L Arterial Blood Base Excess 2 mmol/L FiO2 40% ps 12 peep 5 White Blood Count 11.8 x10^3/uL Red Blood Count 3.60 x10^6/uL Hemoglobin 10.6 g/dL Hematocrit 32.7 % Mean Corpuscular Volume 91 fL Mean Corpuscular Hemoglobin 29 pg Mean Corpuscular Hemoglobin Concent 32 g/dL Red Cell Distribution Width 12.8 % Platelet Count 416 x10^3/uL Neutrophils (%) (Auto) 77 % Lymphocytes (%) (Auto) 14 % Monocytes (%) (Auto) 6 % Eosinophils (%) (Auto) 3 % Basophils (%) (Auto) 1 % Neutrophils # (Auto) 9.0 x10^3/uL Lymphocytes # (Auto) 1.6 x10^3/uL Monocytes # (Auto) 0.7 x10^3/uL Eosinophils # (Auto) 0.4 x10^3/uL Basophils # (Auto) 0.1 x10^3/uL Sodium Level 142 mmol/L Potassium Level 3.7 mmol/L Chloride Level 105 mmol/L Carbon Dioxide Level 26 mmol/L Anion Gap 11 Blood Urea Nitrogen 12 mg/dL Creatinine 0.6 mg/dL Estimated GFR (Cockcroft-Gault) 103.0 BUN/Creatinine Ratio 20 Glucose Level 110 mg/dL Calcium Level 9.2 mg/dL Total Bilirubin 0.4 mg/dL Aspartate Amino Transf (AST/SGOT) 26 U/L Alanine Aminotransferase (ALT/SGPT) 29 U/L Alkaline Phosphatase 112 U/L Total Protein 7.2 g/dL Albumin 2.6 g/dL Albumin/Globulin Ratio 0.6 GRAM STAIN Final Final SQUAMOUS EPI CELL:NONE SEEN PMN (WBCs):NONE SEEN YEAST:MANY Unless otherwise specified, Testing Performed by: [address] [id number] For Inquires, the Physician may contact the Microbiology department at [phone] ANAEROBIC-AEROBIC CULTURE Preliminary Preliminary MANY YEAST on 07/02/20 at 0914 Unless otherwise specified, Testing Performed by: [address] [address] For Inquires, the Physician may contact the Microbiology department at [phone] PE: GEN: NAD LUNGS: trach/vent HEART: RRR ABD: PEG site clean/dry, rectal tube w/ brown stool NEURO/PSYCH: restless, unclear if movements purposeful, does not follow commands A/P: S/p cardiopulmonary arrest, anoxic encephalopathy, resp failure S/p trach and PEG -- Awaiting DC. Justicifation of Admission Dx: Justifications for Admission: Justification of Admission Dx: N/A SHAHBAZ FOSS Jul 02, 2020 10:24
[2020-07-02] MEDS: fentaNYL PF VIAL 100 MCG/2 ML VIAL IVP PRN (10:34)
--- NOTE | 2020-07-02 11:42 | EKG ---
[facility] [address] [place] [address] Test Date: 2020-07-02 Test Time: 11:39:59 Pat Name: BASILIO WHYTE Department: Room: 106 1 Gender: F Relay Record Clerk: GUMARO : 1960 Requested By: NIKA GARNER Order Number: [id number] Reading MD: Measurements Intervals [place] Rate: 0 P: OR: QRS: 0 QRSD: 0 T: 0 QT: 0 QTc: 0 Interpretive Statements IRREGULAR RHYTHM, NO P-WAVE FOUND LOW LIMB LEAD VOLTAGE NO SPECIFIC ECG ABNORMALITIES RI6.02 Compared to ECG 06/17/2020 06:54:27 Sinus rhythm no longer present Atrial abnormality no longer present T-wave abnormality no longer present Possible ischemia no longer present
[2020-07-02] MEDS: HALOPERIDOL LACTATE 5 MG/ML VIAL. IVP SCH ×2 (13:25→21:53)
--- NOTE | 2020-07-02 14:42 | PDOC ---
PROGRESS NOTES Date of Service: DATE: 07/02/20 TIME: 14:41 Chief Complaint Chief Complaint Cardiac arrest with resuscitation and probable pneumonia, sternal fracture and pneumothorax secondary to CPR, leukocytosis, electrolyte disturbance, hypokalemia, lactic acidosis, elevated troponin. History of Present Illness History of Present Illness 07/02/2020 Patient seen and examined in the ICU plan LTAC start PT and OT moving around a lot She is still not very responsive but at the same time kind of agitated Vitals Vitals Vital Signs Date Time Temp Pulse Resp B/P (MAP) Pulse Ox O2 Delivery O2 Flow Rate FiO2 07/02/20 13:22 74 28 155/76 (102) 97 Ventilator 07/02/20 12:09 97.9 97.9 07/02/20 11:04 15.0 Physical Exam Physical Exam GENERAL: Opens eyes transiently, does not follow any commands, agitated HEENT: Both pupils are round and reacting. No conjunctival lesion. NECK: Supple. Trach present, erythema and drainage present around trach site improving LUNGS: Decreased breath sounds bilaterally. HEART: S1, S2, regular. No gallop or murmur. ABDOMEN: Soft, nontender. No organomegaly.peg tube + fecal tube , Jolly present EXTREMITIES: No edema or cyanosis. toe amputation of the Rt foot,healed scars SKIN: Unremarkable. NEUROLOGICAL: Opens eyes transiently does not follow any commands General: No acute distress Heart: Regular rate, Normal S1, Normal S2 Lungs: Clear Abdomen: Soft, No hepatosplenomegaly Extremities: No cyanosis Skin: No rashes, No breakdown Labs LABS Laboratory Tests Test 07/02/20 04:05 White Blood Count 11.8 x10^3/uL (4.0-11.0) Red Blood Count 3.60 x10^6/uL (3.50-5.40) Hemoglobin 10.6 g/dL (12.0-15.5) Hematocrit 32.7 % (36.0-47.0) Mean Corpuscular Volume 91 fL (79-100) Mean Corpuscular Hemoglobin 29 pg (25-35) Mean Corpuscular Hemoglobin Concent 32 g/dL (31-37) Red Cell Distribution Width 12.8 % (11.5-14.5) Platelet Count 416 x10^3/uL (140-400) Neutrophils (%) (Auto) 77 % (31-73) Lymphocytes (%) (Auto) 14 % (24-48) Monocytes (%) (Auto) 6 % (0-9) Eosinophils (%) (Auto) 3 % (0-3) Basophils (%) (Auto) 1 % (0-3) Neutrophils # (Auto) 9.0 x10^3/uL (1.8-7.7) Lymphocytes # (Auto) 1.6 x10^3/uL (1.0-4.8) Monocytes # (Auto) 0.7 x10^3/uL (0.0-1.1) Eosinophils # (Auto) 0.4 x10^3/uL (0.0-0.7) Basophils # (Auto) 0.1 x10^3/uL (0.0-0.2) Sodium Level 142 mmol/L (136-145) Potassium Level 3.7 mmol/L (3.5-5.1) Chloride Level 105 mmol/L (98-107) Carbon Dioxide Level 26 mmol/L (21-32) Anion Gap 11 (6-14) Blood Urea Nitrogen 12 mg/dL (7-20) Creatinine 0.6 mg/dL (0.6-1.0) Estimated GFR (Cockcroft-Gault) 103.0 BUN/Creatinine Ratio 20 (6-20) Glucose Level 110 mg/dL (70-99) Calcium Level 9.2 mg/dL (8.5-10.1) Total Bilirubin 0.4 mg/dL (0.2-1.0) Aspartate Amino Transf (AST/SGOT) 26 U/L (15-37) Alanine Aminotransferase (ALT/SGPT) 29 U/L (14-59) Alkaline Phosphatase 112 U/L (46-116) Total Protein 7.2 g/dL (6.4-8.2) Albumin 2.6 g/dL (3.4-5.0) Albumin/Globulin Ratio 0.6 (1.0-1.7) Assessment and Plan Assessmemt and Plan Problems Medical Problems: (1) Cardiac arrest Status: Acute (2) Fracture of ribs, multiple Status: Acute (3) Hyperglycemia Status: Acute (4) Pneumonia Status: Acute (5) Pneumothorax, right Status: Acute (6) Sternal fracture Status: Acute (7) VF (ventricular fibrillation) Status: Acute Comment Review of Relevant I have reviewed the following items afua (where applicable) has been applied. Labs Laboratory Tests Test 07/01/20 05:00 07/01/20 12:10 07/02/20 04:05 White Blood Count 15.0 x10^3/uL (4.0-11.0) 11.8 x10^3/uL (4.0-11.0) Red Blood Count 3.56 x10^6/uL (3.50-5.40) 3.60 x10^6/uL (3.50-5.40) Hemoglobin 10.5 g/dL (12.0-15.5) 10.6 g/dL (12.0-15.5) Hematocrit 32.3 % (36.0-47.0) 32.7 % (36.0-47.0) Mean Corpuscular Volume 91 fL (79-100) 91 fL (79-100) Mean Corpuscular Hemoglobin 29 pg (25-35) 29 pg (25-35) Mean Corpuscular Hemoglobin Concent 32 g/dL (31-37) 32 g/dL (31-37) Red Cell Distribution Width 12.9 % (11.5-14.5) 12.8 % (11.5-14.5) Platelet Count 418 x10^3/uL (140-400) 416 x10^3/uL (140-400) Neutrophils (%) (Auto) 82 % (31-73) 77 % (31-73) Lymphocytes (%) (Auto) 10 % (24-48) 14 % (24-48) Monocytes (%) (Auto) 5 % (0-9) 6 % (0-9) Eosinophils (%) (Auto) 2 % (0-3) 3 % (0-3) Basophils (%) (Auto) 0 % (0-3) 1 % (0-3) Neutrophils # (Auto) 12.3 x10^3/uL (1.8-7.7) 9.0 x10^3/uL (1.8-7.7) Lymphocytes # (Auto) 1.5 x10^3/uL (1.0-4.8) 1.6 x10^3/uL (1.0-4.8) Monocytes # (Auto) 0.8 x10^3/uL (0.0-1.1) 0.7 x10^3/uL (0.0-1.1) Eosinophils # (Auto) 0.4 x10^3/uL (0.0-0.7) 0.4 x10^3/uL (0.0-0.7) Basophils # (Auto) 0.1 x10^3/uL (0.0-0.2) 0.1 x10^3/uL (0.0-0.2) Sodium Level 141 mmol/L (136-145) 142 mmol/L (136-145) Potassium Level 4.2 mmol/L (3.5-5.1) 3.7 mmol/L (3.5-5.1) Chloride Level 104 mmol/L (98-107) 105 mmol/L (98-107) Carbon Dioxide Level 25 mmol/L (21-32) 26 mmol/L (21-32) Anion Gap 12 (6-14) 11 (6-14) Blood Urea Nitrogen 12 mg/dL (7-20) 12 mg/dL (7-20) Creatinine 0.5 mg/dL (0.6-1.0) 0.6 mg/dL (0.6-1.0) Estimated GFR (Cockcroft-Gault) 127.2 103.0 BUN/Creatinine Ratio 24 (6-20) 20 (6-20) Glucose Level 109 mg/dL (70-99) 110 mg/dL (70-99) Calcium Level 9.3 mg/dL (8.5-10.1) 9.2 mg/dL (8.5-10.1) Total Bilirubin 0.4 mg/dL (0.2-1.0) 0.4 mg/dL (0.2-1.0) Aspartate Amino Transf (AST/SGOT) 25 U/L (15-37) 26 U/L (15-37) Alanine Aminotransferase (ALT/SGPT) 35 U/L (14-59) 29 U/L (14-59) Alkaline Phosphatase 114 U/L (46-116) 112 U/L (46-116) Creatine Kinase 50 U/L (26-192) Total Protein 6.4 g/dL (6.4-8.2) 7.2 g/dL (6.4-8.2) Albumin 2.6 g/dL (3.4-5.0) 2.6 g/dL (3.4-5.0) Albumin/Globulin Ratio 0.7 (1.0-1.7) 0.6 (1.0-1.7) O2 Saturation 97 % (92-99) Arterial Blood pH 7.48 (7.35-7.45) Arterial Blood pCO2 at Patient Temp 34 mmHg (35-46) Arterial Blood pO2 at Patient Temp 90 mmHg (75-108) Arterial Blood HCO3 25 mmol/L (21-28) Arterial Blood Base Excess 2 mmol/L (-3-3) FiO2 40% ps 12 peep 5 Laboratory Tests Test 07/02/20 04:05 White Blood Count 11.8 x10^3/uL (4.0-11.0) Red Blood Count 3.60 x10^6/uL (3.50-5.40) Hemoglobin 10.6 g/dL (12.0-15.5) Hematocrit 32.7 % (36.0-47.0) Mean Corpuscular Volume 91 fL (79-100) Mean Corpuscular Hemoglobin 29 pg (25-35) Mean Corpuscular Hemoglobin Concent 32 g/dL (31-37) Red Cell Distribution Width 12.8 % (11.5-14.5) Platelet Count 416 x10^3/uL (140-400) Neutrophils (%) (Auto) 77 % (31-73) Lymphocytes (%) (Auto) 14 % (24-48) Monocytes (%) (Auto) 6 % (0-9) Eosinophils (%) (Auto) 3 % (0-3) Basophils (%) (Auto) 1 % (0-3) Neutrophils # (Auto) 9.0 x10^3/uL (1.8-7.7) Lymphocytes # (Auto) 1.6 x10^3/uL (1.0-4.8) Monocytes # (Auto) 0.7 x10^3/uL (0.0-1.1) Eosinophils # (Auto) 0.4 x10^3/uL (0.0-0.7) Basophils # (Auto) 0.1 x10^3/uL (0.0-0.2) Sodium Level 142 mmol/L (136-145) Potassium Level 3.7 mmol/L (3.5-5.1) Chloride Level 105 mmol/L (98-107) Carbon Dioxide Level 26 mmol/L (21-32) Anion Gap 11 (6-14) Blood Urea Nitrogen 12 mg/dL (7-20) Creatinine 0.6 mg/dL (0.6-1.0) Estimated GFR (Cockcroft-Gault) 103.0 BUN/Creatinine Ratio 20 (6-20) Glucose Level 110 mg/dL (70-99) Calcium Level 9.2 mg/dL (8.5-10.1) Total Bilirubin 0.4 mg/dL (0.2-1.0) Aspartate Amino Transf (AST/SGOT) 26 U/L (15-37) Alanine Aminotransferase (ALT/SGPT) 29 U/L (14-59) Alkaline Phosphatase 112 U/L (46-116) Total Protein 7.2 g/dL (6.4-8.2) Albumin 2.6 g/dL (3.4-5.0) Albumin/Globulin Ratio 0.6 (1.0-1.7) Microbiology 06/30/20 Gram Stain - Final, Resulted 06/30/20 Aerobic and Anaerobic Culture - Preliminary, Resulted 06/17/20 Blood Culture - Final, Complete NO GROWTH AFTER 5 DAYS Medications Current Medications Amiodarone HCl 150 mg/Dextrose 103 ml @ 618 mls/hr 1X ONCE IV Last ad ministered on 06/17/20at 07:00; Start 06/17/20 at 07:00; Stop 06/17/20 at 07:09; Status DC Amiodarone HCl 450 mg/Dextrose 259 ml @ 33 mls/hr 1X ONCE IV ; Start 06/17/20 at 07:00; Stop 06/17/20 at 14:50; Status DC Sodium Chloride 1,000 ml @ 1,000 mls/hr 1X ONCE IV Last administered on 06/17/20at 08:11; Start 06/17/20 at 07:15; Stop 06/17/20 at 08:14; Status DC Midazolam HCl 100 ml @ 0 mls/hr 1X ONCE IV ; Start 06/17/20 at 07:15; Stop 06/17/20 at 07:16; Status DC Midazolam HCl (Versed) 5 mg STK-MED ONCE .ROUTE ; Start 06/17/20 at 07:17; Stop 06/17/20 at 07:17; Status DC Iohexol (Omnipaque 300 Mg/ml) 75 ml 1X ONCE IV Last administered on 06/17/20at 08:17; Start 06/17/20 at 08:15; Stop 06/17/20 at 08:16; Status DC Iohexol (Omnipaque 350 Mg/ml) 100 ml 1X ONCE IV Last administered on 06/17/20at 08:17; Start 06/17/20 at 08:15; Stop 06/17/20 at 08:16; Status DC Info (CONTRAST GIVEN -- Rx MONITORING) 1 each PRN DAILY PRN MC SEE COMMENTS; Start 06/17/20 at 08:15; Stop 06/19/20 at 08:14; Status DC Sodium Chloride 1,000 ml @ 1,000 mls/hr 1X ONCE IV Last administered on 06/17/20at 08:25; Start 06/17/20 at 08:15; Stop 06/17/20 at 09:14; Status DC Potassium Chloride/Water 100 ml @ 50 mls/hr 1X ONCE IV Last administered on 06/17/20at 10:16; Start 06/17/20 at 09:00; Stop 06/17/20 at 10:59; Status DC Piperacillin Sod/ Tazobactam Sod (Zosyn Per Pharmacy) 1 each PRN DAILY PRN MC SEE COMMENTS; Start 06/17/20 at 08:45; Stop 06/27/20 at 11:36; Status DC Piperacillin Sod/ Tazobactam Sod 4.5 gm/Sodium Chloride 100 ml @ 200 mls/hr 1X ONCE IV Last administered on 06/17/20at 10:15; Start 06/17/20 at 08:45; Stop 06/17/20 at 09:14; Status DC Sodium Chloride 1,000 ml @ 125 mls/hr Q8H IV Last administered on 06/17/20at 23:39; Start 06/17/20 at 09:00; Stop 06/18/20 at 08:59; Status DC Propofol (Diprivan) 200 mg 1X ONCE IV Last administered on 06/17/20at 09:00; Start 06/17/20 at 09:00; Stop 06/17/20 at 09:01; Status DC Propofol 100 ml @ As Directed STK-MED ONCE IV ; Start 06/17/20 at 09:05; Stop 06/17/20 at 09:05; Status DC Lidocaine HCl (Lidocaine 1% 20ml Vial) 20 ml 1X ONCE INJ Last administered on 06/17/20at 09:15; Start 06/17/20 at 09:15; Stop 06/17/20 at 09:20; Status DC Lidocaine HCl (Xylocaine-Mpf 1% 5ml Vial) 5 ml STK-MED ONCE .ROUTE ; Start 06/17/20 at 09:26; Stop 06/17/20 at 09:26; Status DC Sodium Chloride 1,000 ml @ 1,000 mls/hr 1X ONCE IV Last administered on 06/17/20at 10:15; Start 06/17/20 at 10:15; Stop 06/17/20 at 11:14; Status DC Propofol 100 ml @ 3.819 mls/ hr CONT PRN IV PER PROTOCOL Last administered on 06/25/20at 06:12; Start 06/17/20 at 10:45; Stop 06/29/20 at 11:47; Status DC Fentanyl Citrate (Fentanyl 2ml Vial) 100 mcg 1X ONCE IV ; Start 06/17/20 at 12:00; Stop 06/17/20 at 12:39; Status DC Midazolam HCl (Versed) 2 mg 1X ONCE IV ; Start 06/17/20 at 12:00; Stop 06/17/20 at 12:39; Status DC Magnesium Sulfate/ Dextrose 100 ml @ 100 mls/hr 1X ONCE IV Last administered on 06/17/20at 12:22; Start 06/17/20 at 12:00; Stop 06/17/20 at 12:39; Status DC Buspirone HCl (Buspar) 30 mg Q8H NG Last administered on 06/17/20at 12:31; Start 06/17/20 at 12:00; Stop 06/17/20 at 12:39; Status DC Glycerin/ Hypromellose/ Polyethylene (Artificial Tears) 1 drop Q6HRS OU ; Start 06/17/20 at 12:00; Stop 06/17/20 at 12:39; Status DC Glycerin/ Hypromellose/ Polyethylene (Artificial Tears) 1 drop PRN Q15MIN PRN OU DRY EYE; Start 06/17/20 at 12:00; Stop 06/17/20 at 12:39; Status DC Heparin Sodium (Porcine) (Heparin Sodium) 5,000 unit BID SQ ; Start 06/17/20 at 21:00; Stop 06/17/20 at 12:39; Status DC Pantoprazole Sodium (PROTONIX VIAL for IV PUSH) 40 mg DAILY IVP ; Start 06/18/20 at 09:00; Stop 06/17/20 at 12:39; Status DC Fentanyl Citrate 30 ml @ 0 mls/hr CONT PRN IV PER PROTOCOL.; Start 06/17/20 at 12:00; Stop 06/17/20 at 12:39; Status DC Propofol 100 ml @ 0 mls/hr CONT PRN IV PER PROTOCOL.; Start 06/17/20 at 12:00; Stop 06/17/20 at 12:39; Status DC Midazolam HCl 100 ml @ 0 mls/hr CONT PRN IV PER PROTOCOL; Start 06/17/20 at 12:00; Stop 06/17/20 at 12:39; Status DC Vecuronium Upham (Norcuron Bolus) 10 mg PRN Q1HR PRN IV SHIVERING; Start 06/17/20 at 12:00; Stop 06/17/20 at 12:39; Status DC Piperacillin Sod/ Tazobactam Sod 4.5 gm/Sodium Chloride 100 ml @ 200 mls/hr 1X ONCE IV ; Start 06/17/20 at 12:15; Stop 06/17/20 at 12:44; Status Cancel Midazolam HCl (Versed) 5 mg Q1HR PRN IV SEDATION Last administered on 06/29/20at 13:48; Start 06/17/20 at 12:45 Fentanyl Citrate (Fentanyl 2ml Vial) 100 mcg Q1HR IVP Last administered on 06/17/20at 18:55; Start 06/17/20 at 13:00; Stop 06/17/20 at 23:41; Status DC Piperacillin Sod/ Tazobactam Sod 3.375 gm/Sodium Chloride 50 ml @ 100 mls/hr Q 6H IV Last administered on 06/27/20at 05:31; Start 06/17/20 at 16:00; Stop 06/27/20 at 11:30; Status DC Potassium Bicarbonate (Potassium Effervescent Tablet) 40 meq 1X ONCE NG Last administered on 06/18/20at 10:00; Start 06/18/20 at 09:45; Stop 06/18/20 at 09:48; Status DC Albuterol/ Ipratropium (Duoneb) 3 ml RTQID NEB Last administered on 07/02/20at 10:53; Start 06/18/20 at 20:00 Famotidine (Pepcid Vial) 20 mg BID IVP Last administered on 07/02/20at 08:05; Start 06/18/20 at 21:00; Stop 07/02/20 at 10:23; Status DC Enoxaparin Sodium (Lovenox 40mg Syringe) 40 mg Q24H SQ Last administered on 07/01/20at 21:13; Start 06/18/20 at 21:00 Levothyroxine Sodium (Synthroid) 75 mcg DAILY06 PO Last administered on 07/02/20at 06:43; Start 06/18/20 at 21:00 Fentanyl Citrate 30 ml @ 0 mls/hr CONT PRN IV SEE PROTOCOL Last administered on 06/28/20at 04:56; Start 06/18/20 at 20:15; Stop 06/29/20 at 11:47; Status DC Carvedilol (Coreg) 3.125 mg BIDWMEALS PO Last administered on 07/02/20at 08:04; Start 06/19/20 at 17:00 Atorvastatin Calcium (Lipitor) 20 mg QHS PO Last administered on 07/01/20at 21:13; Start 06/19/20 at 21:00 Aspirin (Aspirin Chewable) 81 mg DAILYWBKFT PO Last administered on 07/02/20at 08:04; Start 06/20/20 at 08:00 Aspirin (Aspirin Chewable) 81 mg 1X ONCE PO Last administered on 06/19/20at 15:57; Start 06/19/20 at 15:30; Stop 06/19/20 at 15:37; Status DC Potassium Chloride/Water 100 ml @ 100 mls/hr 1X ONCE IV Last administered on 06/19/20at 15:57; Start 06/19/20 at 15:30; Stop 06/19/20 at 16:29; Status DC Amiodarone HCl (Cordarone) 400 mg DAILY PO Last administered on 07/02/20at 08:04; Start 06/20/20 at 09:00 Furosemide (Lasix) 40 mg 1X ONCE IVP Last administered on 06/20/20at 14:38; Start 06/20/20 at 13:30; Stop 06/20/20 at 13:31; Status DC Potassium Chloride/Water 100 ml @ 100 mls/hr 1X ONCE IV Last administered on 06/20/20at 14:39; Start 06/20/20 at 13:30; Stop 06/20/20 at 14:29; Status DC Dexmedetomidine HCl 400 mcg/ Sodium Chloride 100 ml @ 0 mls/hr CONT PRN IV PER PROTOCOL Last administered on 06/29/20at 06:11; Start 06/21/20 at 10:45; Stop 06/29/20 at 11:47; Status DC Sodium Chloride 500 ml @ 500 mls/hr 1X PRN PRN IV SEE COMMENTS; Start 06/21/20 at 10:45 Atropine Sulfate (ATROPINE 0.5mg SYRINGE) 0.5 mg PRN Q5MIN PRN IV SEE COMMENTS; Start 06/21/20 at 10:45; Stop 06/29/20 at 11:47; Status DC Fentanyl Citrate (Fentanyl 2ml Vial) 50 mcg PRN Q2HR PRN IVP PAIN Last administered on 07/02/20at 10:34; Start 06/23/20 at 16:45 Midazolam HCl 100 ml @ 0 mls/hr CONT PRN IV SEE PROTOCOL Last administered on 06/28/20at 03:00; Start 06/25/20 at 11:45; Stop 06/29/20 at 11:47; Status DC Lidocaine HCl (Xylocaine-Mpf 1% 2ml Vial) 2 ml STK-MED ONCE .ROUTE ; Start at 14:21; Stop 06/25/20 at 14:21; Status DC Iohexol (Omnipaque 300 Mg/ml) 100 ml STK-MED ONCE .ROUTE ; Start 06/25/20 at 14:21; Stop 06/25/20 at 14:21; Status DC Heparin Sodium/ Sodium Chloride 1,000 ml @ As Directed STK-MED ONCE .ROUTE ; Start 06/25/20 at 14:21; Stop 06/25/20 at 14:21; Status DC Heparin Sodium (Porcine) (Heparin Sodium) 10,000 unit STK-MED ONCE .ROUTE ; Start 06/25/20 at 14:31; Stop 06/25/20 at 14:31; Status DC Verapamil HCl (Verapamil) 5 mg STK-MED ONCE .ROUTE ; Start 06/25/20 at 14:31; Stop 06/25/20 at 14:31; Status DC Nitroglycerin (Nitroglycerin) 200 mcg STK-MED ONCE .ROUTE ; Start 06/25/20 at 14:31; Stop 06/25/20 at 14:31; Status DC Nitroglycerin (Nitroglycerin) 200 mcg 1X ONCE IART Last administered on 06/25/20at 15:09; Start 06/25/20 at 15:15; Stop 06/25/20 at 15:16; Status DC Verapamil HCl (Verapamil) 2.5 mg 1X ONCE IART Last administered on 06/25/20at 15:09; Start 06/25/20 at 15:15; Stop 06/25/20 at 15:16; Status DC Heparin Sodium (Porcine) (Heparin Sodium) 2,500 unit 1X ONCE IART Last administered on 06/25/20at 15:09; Start 06/25/20 at 15:15; Stop 06/25/20 at 15:16; Status DC Heparin Sodium/ Sodium Chloride (HEPARIN for ARTERIAL LINE FLUSH) 1,000 unit 1X ONCE IART Last administered on 06/25/20at 15:09; Start 06/25/20 at 15:15; Stop 06/25/20 at 15:16; Status DC Iohexol (Omnipaque 300 Mg/ml) 30 ml 1X ONCE IART Last administered on at 15:09; Start 06/25/20 at 15:15; Stop 06/25/20 at 15:16; Status DC Lidocaine HCl (Xylocaine-Mpf 1% 2ml Vial) 2 ml 1X ONCE INJ Last administered on 06/25/20at 15:09; Start 06/25/20 at 15:15; Stop 06/25/20 at 15:16; Status DC Amino Acids/ Glycerin/ Electrolytes 1,000 ml @ 80 mls/hr [id number] IV Last administered on 06/27/20at 20:50; Start 06/25/20 at 17:30; Stop 06/28/20 at 11: 35; Status DC Potassium Chloride/Water 100 ml @ 100 mls/hr Q1H IV Last administered on 06/25/20at 18:46; Start 06/25/20 at 18:00; Stop 06/25/20 at 19:59; Status DC Rocuronium Upham (Zemuron) 50 mg STK-MED ONCE .ROUTE ; Start 06/26/20 at 11:37; Stop 06/26/20 at 11:38; Status DC Cellulose (Surgicel Fibrillar 1x2) 1 each STK-MED ONCE .ROUTE Last administered on 06/26/20at 13:20; Start 06/26/20 at 12:19; Stop 06/26/20 at 12:19; Status DC Bupivacaine HCl (Sensorcaine Mpf 0.5%) 30 ml STK-MED ONCE .ROUTE ; Start 06/26/20 at 12:19; Stop 06/26/20 at 12:19; Status DC Ondansetron HCl (Zofran) 4 mg STK-MED ONCE .ROUTE ; Start 06/26/20 at 13:13; Stop 06/26/20 at 13:13; Status DC Dexamethasone Sodium Phosphate (Decadron) 4 mg STK-MED ONCE .ROUTE ; Start 06/26/20 at 13:13; Stop 06/26/20 at 13:14; Status DC Cellulose (Surgicel Fibrillar 1x2) 1 each STK-MED ONCE .ROUTE Last administered on 06/26/20at 13:22; Start 06/26/20 at 13:25; Stop 06/26/20 at 13:25; Status DC Sevoflurane (Ultane) 30 ml STK-MED ONCE IH ; Start 06/26/20 at 13:37; Stop 06/26/20 at 13:38; Status DC Propofol (Diprivan) 200 mg STK-MED ONCE IV ; Start 06/26/20 at 13:38; Stop 06/26/20 at 13:38; Status DC Ringer's Solution 1,000 ml @ 30 mls/hr Q24H IV Last administered on 06/27/20at 08:39; Start 06/27/20 at 07:00; Stop 06/27/20 at 18:59; Status DC Prochlorperazine Edisylate (Compazine) 5 mg PACU PRN PRN IV NAUSEA, MRX1; S tart 06/27/20 at 07:00; Stop 06/28/20 at 06:59; Status DC Propofol (Diprivan) 200 mg STK-MED ONCE IV ; Start 06/27/20 at 09:53; Stop 06/27/20 at 09:54; Status DC Lidocaine HCl (Lidocaine Pf 2% Vial) 5 ml STK-MED ONCE .ROUTE ; Start 06/27/20 at 09:54; Stop 06/27/20 at 09:54; Status DC Lisinopril (Prinivil) 5 mg DAILY PO Last administered on 07/02/20at 08:05; Start 06/29/20 at 09:00 Acetaminophen/ Hydrocodone Bitart (Lortab 7.5-325/ 15ml Oral Solution) 10 ml 1X ONCE PEG Last administered on 06/28/20at 12:37; Start 06/28/20 at 12:30; Stop 06/28/20 at 12:31; Status DC Piperacillin Sod/ Tazobactam Sod 3.375 gm/Sodium Chloride 50 ml @ 100 mls/hr Q6HRS IV Last administered on 07/02/20at 11:47; Start 06/29/20 at 10:00 Vecuronium Upham (Norcuron Bolus) 10 mg STK-MED ONCE IV ; Start 06/29/20 at 14:31; Stop 06/29/20 at 14:31; Status DC Propofol 100 ml @ 0 mls/hr CONT PRN IV PER PROTOCOL Last administered on 07/02/20at 07:26; Start 06/29/20 at 16:30 Vecuronium Upham (Norcuron Bolus) 10 mg 1X ONCE IV Last administered on 06/29/20at 14:31; Start 06/29/20 at 14:31; Stop 06/29/20 at 17:19; Status DC Daptomycin 400 mg/ Sodium Chloride 50 ml @ 100 mls/hr Q24H IV Last administered on 07/02/20at 09:57; Start 06/30/20 at 10:00 Famotidine (Pepcid) 20 mg QHS GT ; Start 07/02/20 at 21:00 Haloperidol Lactate (Haldol Inj) 5 mg Q8HRS IVP Last administered on 07/02/20at 13:25; Start 07/02/20 at 14:00 Active Scripts Active Reported Acetaminophen-Diphenhyd 500-25 (Acetaminophen/Diphenhydramine) 1 Each Tablet 1 Each PO HS PRN Naproxen 500 Mg Tablet 1 Tab PO BID PRN 30 Days Tramadol Hcl 50 Mg Tablet 50 Mg PO Q4HRS Levothyroxine Sodium 75 Mcg Tablet 1 Tab PO DAILY Adderall 20 Mg Tablet (Dextroamphetamine/Amphetamine) 20 Mg Tablet 1 Tab PO DAILY MDD 1 Tablet(s) 5 Days Prozac (Fluoxetine Hcl) 20 Mg Capsule 1 Cap PO [id number] Vitals/I & O Vital Sign - Last 24 Hours 07/01/20 07/01/20 07/01/20 07/01/20 16:00 16:20 18:00 19:00 Pulse 68 78 Resp 18 B/P (MAP) 82/48 131/69 (89) Pulse Ox 98 100 O2 Delivery Mechanical Ventilator Ventilator Ventilator 07/01/20 07/01/20 07/01/20 07/01/20 20:00 20:00 21:00 21:29 Temp 97.8 97.8 Pulse 58 64 Resp 19 20 B/P (MAP) 102/72 (82) 96/57 (70) Pulse Ox 100 100 98 O2 Delivery Mechanical Ventilator Ventilator Ventilator Ventilator 07/01/20 07/01/20 07/02/20 07/02/20 22:00 23:00 00:00 00:00 Temp 98.2 98.2 Pulse 58 62 76 Resp 20 19 19 B/P (MAP) 115/65 (82) 104/62 (76) 142/71 (94) Pulse Ox 100 100 99 O2 Delivery Ventilator Ventilator Ventilator Mechanical Ventilator 07/02/20 07/02/20 07/02/20 07/02/20 00:43 01:00 02:00 03:00 Pulse 82 82 80 Resp 20 20 19 B/P (MAP) 145/67 (93) 135/83 (100) 107/77 (87) Pulse Ox 98 99 98 98 O2 Delivery Ventilator Ventilator Ventilator Ventilator 07/02/20 07/02/20 07/02/20 07/02/20 04:00 04:00 05:00 05:09 Temp 98.5 98.5 Pulse 80 77 Resp 19 20 B/P (MAP) 144/54 (84) 146/76 (99) Pulse Ox 100 99 100 O2 Delivery Ventilator Mechanical Ventilator Ventilator Ventilator 07/02/20 07/02/20 07/02/20 07/02/20 07:22 08:00 08:03 08:04 Temp 99.3 99.3 Pulse 82 82 82 Resp 22 22 B/P (MAP) 141/72 (95) 129/93 (105) 129/93 Pulse Ox 98 95 O2 Delivery Ventilator Mechanical Ventilator Ventilator 07/02/20 07/02/20 07/02/20 07/02/20 08:04 08:05 08:13 08:19 Pulse 82 82 B/P (MAP) 129/93 129/93 Pulse Ox 98 O2 Delivery Ventilator Ventilator 07/02/20 07/02/20 07/02/20 07/02/20 09:00 10:11 10:34 10:51 Pulse 80 81 Resp 22 18 18 B/P (MAP) 141/61 (87) 152/95 (114) Pulse Ox 97 98 98 97 O2 Delivery Ventilator Ventilator Ventilator Ventilator O2 Flow Rate 15.0 07/02/20 07/02/20 07/02/20 07/02/20 11:04 11:05 12:06 12:09 Temp 97.9 97.9 Pulse 77 79 Resp 22 18 20 B/P (MAP) 137/71 (93) 152/77 (102) Pulse Ox 97 97 98 O2 Delivery Ventilator Ventilator Mechanical Ventilator Ventilator O2 Flow Rate 15.0 07/02/20 13:22 Pulse 74 Resp 28 B/P (MAP) 155/76 (102) Pulse Ox 97 O2 Delivery Ventilator Intake and Output 07/01/20 07/01/20 07/02/20 15:00 23:00 07:00 Intake Total 250 ml 1490 ml 1567 ml Output Total 1220 ml 640 ml 625 ml Balance -970 ml 850 ml 942 ml Justicifation of Admission Dx: Justifications for Admission: Justification of Admission Dx: N/A ERIKA CHEUNG MD Jul 02, 2020 14:42
--- NOTE | 2020-07-02 16:16 | NUR ---
SS following up with discharge planning. SS reviewed pt chart and discussed with pt RN. Pt is currently on the vent at 40%. COVID19 negative. Pt has trach and peg. Pt on IV Daptomycin and IV Zosyn. SS contacted [facility], ; fax [phone], and was notified that they did receive referral but do need to check benefits. SS was notified that pt's insurance was closed today due to the holiday and they would not be able to run benefits until tomorrow. SS will continue to follow for discharge planning.
[2020-07-02] MEDS: FAMOTIDINE 20 MG TABLET. GT SCH (20:58)
[2020-07-02] MEDS: ATORVASTATIN CALCIUM 20 MG TABLET PO SCH (20:58)
[2020-07-02] MEDS: ENOXAPARIN 40 MG/0.4 ML SYRINGE. SQ SCH (20:59)
[2020-07-03] VITALS (25 sets, daily range): BP systolic 87–164; BP diastolic 49–88
[2020-07-03] MEDS: PIPERACILLIN/TAZOBACTAM 3.375 GM in IV NORMAL SALINE 50ML 50 ML IV SCH ×4 (00:01→17:19)
[2020-07-03] MEDS: fentaNYL PF VIAL 100 MCG/2 ML VIAL IVP PRN (04:14)
[2020-07-03] MEDS: LEVOTHYROXINE 75 MCG TABLET PO SCH (05:50)
[2020-07-03] MEDS: HALOPERIDOL LACTATE 5 MG/ML VIAL. IVP SCH (06:00)
--- NOTE | 2020-07-03 07:45 | PDOC ---
Infectious Disease Note Subjective: Subjective Patient remains on vent Does not follow any commands Currently calm, on Haldol Remains afebrile Tolerating tube feedings well Discussed with RN Vital Signs: Vital Signs Vital Signs Date Time Temp Pulse Resp B/P (MAP) Pulse Ox O2 Delivery O2 Flow Rate FiO2 07/03/20 06:57 98.3 79 18 118/76 (90) 98 Ventilator 98.3 07/02/20 11:04 15.0 Physical Exam: PHYSICAL EXAM GENERAL: Opens eyes transiently, does not follow any commands, agitated HEENT: Both pupils are round and reacting. No conjunctival lesion. NECK: Supple. Trach present, erythema and drainage present around trach site improving LUNGS: Decreased breath sounds bilaterally. HEART: S1, S2, regular. No gallop or murmur. ABDOMEN: Soft, nontender. No organomegaly.peg tube + fecal tube , Jolly present EXTREMITIES: No edema or cyanosis. toe amputation of the Rt foot,healed scars SKIN: Unremarkable. NEUROLOGICAL: Opens eyes transiently does not follow any commands Medications: Inpatient Meds: Current Medications Medications (Trade) Dose Ordered Sig/Rosalio Start Time Stop Time Status Last Admin Dose Admin Acetaminophen/ Hydrocodone Bitart (Lortab 7.5-325/ 15ml Oral Solution) 10 ml 1X ONCE 06/28/20 12:30 06/28/20 12:31 DC 06/28/20 12:37 10 ML Albuterol/ Ipratropium (Duoneb) 3 ml RTQID 06/18/20 20:00 07/02/20 19:50 3 ML Amino Acids/ Glycerin/ Electrolytes 1,000 ml @ 80 mls/hr [id number] 06/25/20 17:30 06/28/20 11:35 DC 06/27/20 20:50 80 MLS/HR Amiodarone HCl (Cordarone) 400 mg DAILY 06/20/20 09:00 07/02/20 08:04 400 MG Amiodarone HCl 150 mg/Dextrose 103 ml @ 618 mls/hr 1X ONCE 06/17/20 07:00 06/17/20 07:09 DC 06/17/20 07:00 618 MLS/HR Amiodarone HCl 450 mg/Dextrose 259 ml @ 33 mls/hr 1X ONCE 06/17/20 07:00 06/17/20 14:50 DC Aspirin (Aspirin Chewable) 81 mg 1X ONCE 06/19/20 15:30 06/19/20 15:37 DC 06/19/20 15:57 81 MG Atorvastatin Calcium (Lipitor) 20 mg QHS 06/19/20 21:00 07/02/20 20:58 20 MG Atropine Sulfate (ATROPINE 0.5mg SYRINGE) 0.5 mg PRN Q5MIN PRN 06/21/20 10:45 06/29/20 11:47 DC Bupivacaine HCl (Sensorcaine Mpf 0.5%) 30 ml STK-MED ONCE 06/26/20 12:19 06/26/20 12:19 DC Buspirone HCl (Buspar) 30 mg Q8H 06/17/20 12:00 06/17/20 12:39 DC 06/17/20 12:31 30 MG Carvedilol (Coreg) 3.125 mg BIDWMEALS 06/19/20 17:00 07/02/20 08:04 3.125 MG Cellulose (Surgicel Fibrillar 1x2) 1 each STK-MED ONCE 06/26/20 13:25 06/26/20 13:25 DC 06/26/20 13:22 1 EACH Daptomycin 400 mg/ Sodium Chloride 50 ml @ 100 mls/hr Q24H 06/30/20 10:00 07/02/20 09:57 100 MLS/HR Dexamethasone Sodium Phosphate (Decadron) 4 mg STK-MED ONCE 06/26/20 13:13 06/26/20 13:14 DC Dexmedetomidine HCl 400 mcg/ Sodium Chloride 100 ml @ 0 mls/hr CONT PRN 06/21/20 10:45 06/29/20 11:47 DC 06/29/20 06:11 15.1 MLS/HR Enoxaparin Sodium (Lovenox 40mg Syringe) 40 mg Q24H 06/18/20 21:00 07/02/20 20:59 40 MG Famotidine (Pepcid Vial) 20 mg BID 06/18/20 21:00 07/02/20 10:23 DC 07/02/20 08:05 20 MG Famotidine (Pepcid) 20 mg QHS 07/02/20 21:00 07/02/20 20:58 20 MG Fentanyl Citrate (Fentanyl 2ml Vial) 50 mcg PRN Q2HR PRN 06/23/20 16:45 07/03/20 04:14 50 MCG Furosemide (Lasix) 40 mg 1X ONCE 06/20/20 13:30 06/20/20 13:31 DC 06/20/20 14:38 40 MG Glycerin/ Hypromellose/ Polyethylene (Artificial Tears) 1 drop PRN Q15MIN PRN 06/17/20 12:00 06/17/20 12:39 DC Haloperidol Lactate (Haldol Inj) 5 mg Q8HRS 07/02/20 14:00 07/03/20 06:00 5 MG Heparin Sodium (Porcine) (Heparin Sodium) 2,500 unit 1X ONCE 06/25/20 15:15 06/25/20 15:16 DC 06/25/20 15:09 2,500 UNIT Heparin Sodium/ Sodium Chloride (HEPARIN for ARTERIAL LINE FLUSH) 1,000 unit 1X ONCE 06/25/20 15:15 06/25/20 15:16 DC 06/25/20 15:09 1,000 UNIT Info (CONTRAST GIVEN -- Rx MONITORING) 1 each PRN DAILY PRN 06/17/20 08:15 06/19/20 08:14 DC Iohexol (Omnipaque 300 Mg/ml) 30 ml 1X ONCE 06/25/20 15:15 06/25/20 15:16 DC 06/25/20 15:09 30 ML Iohexol (Omnipaque 350 Mg/ml) 100 ml 1X ONCE 06/17/20 08:15 06/17/20 08:16 DC 06/17/20 08:17 100 ML Levothyroxine Sodium (Synthroid) 75 mcg DAILY06 06/18/20 21:00 07/03/20 05:50 75 MCG Lidocaine HCl (Lidocaine 1% 20ml Vial) 20 ml 1X ONCE 06/17/20 09:15 06/17/20 09:20 DC 06/17/20 09:15 20 ML Lidocaine HCl (Lidocaine Pf 2% Vial) 5 ml STK-MED ONCE 06/27/20 09:54 06/27/20 09:54 DC Lidocaine HCl (Xylocaine-Mpf 1% 2ml Vial) 2 ml 1X ONCE 06/25/20 15:15 06/25/20 15:16 DC 06/25/20 15:09 2 ML Lidocaine HCl (Xylocaine-Mpf 1% 5ml Vial) 5 ml STK-MED ONCE 06/17/20 09:26 06/17/20 09:26 DC Lisinopril (Prinivil) 5 mg DAILY 06/29/20 09:00 07/02/20 08:05 5 MG Magnesium Sulfate/ Dextrose 100 ml @ 100 mls/hr 1X ONCE 06/17/20 12:00 06/17/20 12:39 DC 06/17/20 12:22 100 MLS/HR Midazolam HCl 100 ml @ 0 mls/hr CONT PRN 06/25/20 11:45 06/29/20 11:47 DC 06/28/20 03:00 10 MLS/HR Midazolam HCl (Versed) 5 mg Q1HR PRN 06/17/20 12:45 06/29/20 13:48 5 MG Nitroglycerin (Nitroglycerin) 200 mcg 1X ONCE 06/25/20 15:15 06/25/20 15:16 DC 06/25/20 15:09 200 MCG Ondansetron HCl (Zofran) 4 mg STK-MED ONCE 06/26/20 13:13 06/26/20 13:13 DC Pantoprazole Sodium (PROTONIX VIAL for IV PUSH) 40 mg DAILY 06/18/20 09:00 06/17/20 12:39 DC Piperacillin Sod/ Tazobactam Sod (Zosyn Per Pharmacy) 1 each PRN DAILY PRN 06/17/20 08:45 06/27/20 11:36 DC Piperacillin Sod/ Tazobactam Sod 3.375 gm/Sodium Chloride 50 ml @ 100 mls/hr Q6HRS 06/29/20 10:00 07/03/20 05:50 100 MLS/HR Piperacillin Sod/ Tazobactam Sod 4.5 gm/Sodium Chloride 100 ml @ 200 mls/hr 1X ONCE 06/17/20 12:15 06/17/20 12:44 Cancel Potassium Bicarbonate (Potassium Effervescent Tablet) 40 meq 1X ONCE 06/18/20 09:45 06/18/20 09:48 DC 06/18/20 10:00 40 MEQ Potassium Chloride/Water 100 ml @ 100 mls/hr Q1H 06/25/20 18:00 06/25/20 19:59 DC 06/25/20 18:46 100 MLS/HR Prochlorperazine Edisylate (Compazine) 5 mg PACU PRN PRN 06/27/20 07:00 06/28/20 06:59 DC Propofol 100 ml @ 0 mls/hr CONT PRN 06/29/20 16:30 07/02/20 07:26 21.1 MLS/HR Propofol (Diprivan) 200 mg STK-MED ONCE 06/27/20 09:53 06/27/20 09:54 DC Ringer's Solution 1,000 ml @ 30 mls/hr Q24H 06/27/20 07:00 06/27/20 18:59 DC 06/27/20 08:39 30 MLS/HR Rocuronium [place] (Zemuron) 50 mg STK-MED ONCE 06/26/20 11:37 06/26/20 11:38 DC Sevoflurane (Ultane) 30 ml STK-MED ONCE 06/26/20 13:37 06/26/20 13:38 DC Sodium Chloride 500 ml @ 500 mls/hr 1X PRN PRN 06/21/20 10:45 Vecuronium [place] (Norcuron Bolus) 10 mg 1X ONCE 06/29/20 14:31 06/29/20 17:19 DC 06/29/20 14:31 10 MG Verapamil HCl (Verapamil) 2.5 mg 1X ONCE 06/25/20 15:15 06/25/20 15:16 DC 06/25/20 15:09 2.5 MG Labs: Micro RUN DATE: 07/02/20 [facility] *LIVE* PAGE 1 RUN TIME: 1146 Specimen Inquiry PATIENT: BASILIO WHYTE ACCT: [id number] LOC: 1 [facility]ST ICU U: [id number] AGE/SX: 59/F ROOM: 106 RE06/17/[address]: HUSSEIN GOODWIN III, DO : 1960 BED: 1 DIS: STATUS: ADM IN TLOC: -------- ---- SPEC #: [id number] BORA: 06/30/20 STATUS: RES REQ #: [id number] RECD: 07/01/[address] [facility] [address]: HUSSEIN GOODWIN III, DO SOURCE: DRAINAGE ENTR: 07/01/[address]: JEFF FLORES MD SPDESC: WOUND RENAE,POPPY PAUL,MELY MEHTA,NURA GARNER,NIKA BARRAGAN,KIRA SAENZ,MARGOTH House MD ORDERED: ANAER/AEROB/MAUREEN COMMENTS: DRAINAGE/SECRETION FROM TRACH SITE Procedure Result GRAM STAIN Final Final SQUAMOUS EPI CELL:NONE SEEN PMN (WBCs):NONE SEEN YEAST:MANY Unless otherwise specified, Testing Performed by: [address] [address] For Inquires, the Physician may contact the Microbiology department at [phone] ANAEROBIC-AEROBIC CULTURE Preliminary Preliminary MANY YEAST on 07/02/20 at 0914 FINAL ID= [FILOMENA ALBICANS] FILOMENA ALBICANS Unless otherwise specified, Testing Performed by: [address] [address] For Inquires, the Physician may contact the Microbiology department at [phone] Objective: Assessment: 1. Cardiopulmonary arrest at home. With VT, shock then asystole s/p cardiac cath , normal coronaries Severe NICM Acute systolic CHF: compensated 2. Leukocytosis, likely reactive. resolved 3. Lactic acidosis from #1. 4. Respiratory failure. suspected aspiration; status post trach placement, swab culture from trach site with Filomena albicans 5. Anoxic Encephalopathy 6. Hypertension. 7. Pneumothorax.s/p CTS, 8. Rib fracture and sternal fracture. 9. Anemia 10. S/P Peg tube placement 11. Marijuana use: + UDS Plan: Plan of Care Continue Zosyn/Zyvox Micafungin(on amiodarone) cont supportive care Monitor labs and cultures Overall prognosis poor Discussed with at bedside D/W SAÚL MAYES MD Jul 03, 2020 07:45
[2020-07-03] MEDS: IPRATRPIUM/ALBUTEROL 0.5/2.5MG 3 ML NEBU. NEB SCH ×4 (08:00→20:21)
[2020-07-03 08:29] LABS: BASO # 0.1 x10^3/uL (0.0-0.2); BASO % 1 % (0-3); EOS # 0.2 x10^3/uL (0.0-0.7); EOS % 3 % (0-3); HEMATOCRIT 32.9 % (36.0-47.0); HEMOGLOBIN 10.6 g/dL (12.0-15.5); LYMPH % 25 % (24-48); MEAN CORPUSCULAR HEMOGLOBIN 29 pg (25-35); MEAN CORPUSCULAR HGB CONC 32 g/dL (31-37); MEAN CORPUSCULAR VOLUME 90 fL (79-100); MONO # 0.6 x10^3/uL (0.0-1.1); MONO % 8 % (0-9); NEUT % 63 % (31-73); PLATELET COUNT 498 x10^3/uL (140-400); RED BLOOD COUNT 3.64 x10^6/uL (3.50-5.40); RED CELL DISTRIBUTION WIDTH 13.1 % (11.5-14.5)
[2020-07-03 08:35] LABS: BASE EXCESS ABG 2 mmol/L (-3-3); HCO3 ABG 26 mmol/L (21-28); PCO2 ABG 36 mmHg (35-46); PO2 ABG 107 mmHg (75-108); SAT O2 ABG 98 % (92-99)
[2020-07-03 08:40] LABS: CALCIUM 9.1 mg/dL (8.5-10.1); CREATININE 0.6 mg/dL (0.6-1.0); POTASSIUM 4.1 mmol/L (3.5-5.1)
[2020-07-03 08:42] LABS: FIO2 ABG 40/VENT
[2020-07-03] MEDS ORDERED: ALTEPLASE 1MG SYRINGE. INT CAT ONE (08:45)
[2020-07-03] MEDS: ASPIRIN CHEWABLE 81 MG TABLET. PO SCH (08:51)
[2020-07-03] MEDS: LISINOPRIL 5 MG TABLET. PO SCH (08:52)
[2020-07-03] MEDS: FAMOTIDINE 20 MG TABLET. GT SCH (08:52)
[2020-07-03] MEDS: CARVEDILOL 3.125 MG TABLET. PO SCH ×2 (08:52→17:19)
[2020-07-03] MEDS: AMIODARONE HCL 200 MG TABLET. PO SCH (08:53)
[2020-07-03] MEDS: DAPTOmycin (GENERIC) IVPB 400 MG in IV NORMAL SALINE 50ML 50 ML IV SCH (08:54)
[2020-07-03] MEDS: MICAFUNGIN 100 MG in IV DEXTROSE 5% 100ML 100 ML IV SCH (08:54)
--- NOTE | 2020-07-03 10:09 | PDOC ---
PULMONARY PROGRESS NOTES DATE: 07/03/20 TIME: 10:07 Subjective S/P cardiac arrest 06/17 remains on vent support 40% and PEEP of 5, pressure support during the day, assist control at night S/P trach on 06/26 S/P peg 06/27 Not much clinical change Vitals Vital Signs Date Time Temp Pulse Resp B/P (MAP) Pulse Ox O2 Delivery O2 Flow Rate FiO2 07/03/20 09:54 72 24 153/72 (99) 97 Ventilator 07/03/20 06:57 98.3 98.3 07/02/20 11:04 15.0 HEENT: Other (nc at perrl nose clear ) Lungs: Clear Cardiovascular: S1, S2 Abdomen: Soft, Non-tender Extremities: No Edema Skin: Warm Labs Laboratory Tests Test 07/01/20 12:10 07/02/20 04:05 07/03/20 08:00 07/03/20 08:20 O2 Saturation 97 % (92-99) 98 % (92-99) Arterial Blood pH 7.48 (7.35-7.45) 7.48 (7.35-7.45) Arterial Blood pCO2 at Patient Temp 34 mmHg (35-46) 36 mmHg (35-46) Arterial Blood pO2 at Patient Temp 90 mmHg (75-108) 107 mmHg (75-108) Arterial Blood HCO3 25 mmol/L (21-28) 26 mmol/L (21-28) Arterial Blood Base Excess 2 mmol/L (-3-3) 2 mmol/L (-3-3) FiO2 40% ps 12 peep 5 40/vent White Blood Count 11.8 x10^3/uL (4.0-11.0) 8.0 x10^3/uL (4.0-11.0) Red Blood Count 3.60 x10^6/uL (3.50-5.40) 3.64 x10^6/uL (3.50-5.40) Hemoglobin 10.6 g/dL (12.0-15.5) 10.6 g/dL (12.0-15.5) Hematocrit 32.7 % (36.0-47.0) 32.9 % (36.0-47.0) Mean Corpuscular Volume 91 fL (79-100) 90 fL (79-100) Mean Corpuscular Hemoglobin 29 pg (25-35) 29 pg (25-35) Mean Corpuscular Hemoglobin Concent 32 g/dL (31-37) 32 g/dL (31-37) Red Cell Distribution Width 12.8 % (11.5-14.5) 13.1 % (11.5-14.5) Platelet Count 416 x10^3/uL (140-400) 498 x10^3/uL (140-400) Neutrophils (%) (Auto) 77 % (31-73) 63 % (31-73) Lymphocytes (%) (Auto) 14 % (24-48) 25 % (24-48) Monocytes (%) (Auto) 6 % (0-9) 8 % (0-9) Eosinophils (%) (Auto) 3 % (0-3) 3 % (0-3) Basophils (%) (Auto) 1 % (0-3) 1 % (0-3) Neutrophils # (Auto) 9.0 x10^3/uL (1.8-7.7) 5.0 x10^3/uL (1.8-7.7) Lymphocytes # (Auto) 1.6 x10^3/uL (1.0-4.8) 2.0 x10^3/uL (1.0-4.8) Monocytes # (Auto) 0.7 x10^3/uL (0.0-1.1) 0.6 x10^3/uL (0.0-1.1) Eosinophils # (Auto) 0.4 x10^3/uL (0.0-0.7) 0.2 x10^3/uL (0.0-0.7) Basophils # (Auto) 0.1 x10^3/uL (0.0-0.2) 0.1 x10^3/uL (0.0-0.2) Sodium Level 142 mmol/L (136-145) 142 mmol/L (136-145) Potassium Level 3.7 mmol/L (3.5-5.1) 4.1 mmol/L (3.5-5.1) Chloride Level 105 mmol/L (98-107) 106 mmol/L (98-107) Carbon Dioxide Level 26 mmol/L (21-32) 26 mmol/L (21-32) Anion Gap 11 (6-14) 10 (6-14) Blood Urea Nitrogen 12 mg/dL (7-20) 14 mg/dL (7-20) Creatinine 0.6 mg/dL (0.6-1.0) 0.6 mg/dL (0.6-1.0) Estimated GFR (Cockcroft-Gault) 103.0 103.0 BUN/Creatinine Ratio 20 (6-20) Glucose Level 110 mg/dL (70-99) 114 mg/dL (70-99) Calcium Level 9.2 mg/dL (8.5-10.1) 9.1 mg/dL (8.5-10.1) Total Bilirubin 0.4 mg/dL (0.2-1.0) Aspartate Amino Transf (AST/SGOT) 26 U/L (15-37) Alanine Aminotransferase (ALT/SGPT) 29 U/L (14-59) Alkaline Phosphatase 112 U/L (46-116) Total Protein 7.2 g/dL (6.4-8.2) Albumin 2.6 g/dL (3.4-5.0) Albumin/Globulin Ratio 0.6 (1.0-1.7) Laboratory Tests Test 07/03/20 08:00 07/03/20 08:20 O2 Saturation 98 % (92-99) Arterial Blood pH 7.48 (7.35-7.45) Arterial Blood pCO2 at Patient Temp 36 mmHg (35-46) Arterial Blood pO2 at Patient Temp 107 mmHg (75-108) Arterial Blood HCO3 26 mmol/L (21-28) Arterial Blood Base Excess 2 mmol/L (-3-3) FiO2 40/vent White Blood Count 8.0 x10^3/uL (4.0-11.0) Red Blood Count 3.64 x10^6/uL (3.50-5.40) Hemoglobin 10.6 g/dL (12.0-15.5) Hematocrit 32.9 % (36.0-47.0) Mean Corpuscular Volume 90 fL (79-100) Mean Corpuscular Hemoglobin 29 pg (25-35) Mean Corpuscular Hemoglobin Concent 32 g/dL (31-37) Red Cell Distribution Width 13.1 % (11.5-14.5) Platelet Count 498 x10^3/uL (140-400) Neutrophils (%) (Auto) 63 % (31-73) Lymphocytes (%) (Auto) 25 % (24-48) Monocytes (%) (Auto) 8 % (0-9) Eosinophils (%) (Auto) 3 % (0-3) Basophils (%) (Auto) 1 % (0-3) Neutrophils # (Auto) 5.0 x10^3/uL (1.8-7.7) Lymphocytes # (Auto) 2.0 x10^3/uL (1.0-4.8) Monocytes # (Auto) 0.6 x10^3/uL (0.0-1.1) Eosinophils # (Auto) 0.2 x10^3/uL (0.0-0.7) Basophils # (Auto) 0.1 x10^3/uL (0.0-0.2) Sodium Level 142 mmol/L (136-145) Potassium Level 4.1 mmol/L (3.5-5.1) Chloride Level 106 mmol/L (98-107) Carbon Dioxide Level 26 mmol/L (21-32) Anion Gap 10 (6-14) Blood Urea Nitrogen 14 mg/dL (7-20) Creatinine 0.6 mg/dL (0.6-1.0) Estimated GFR (Cockcroft-Gault) 103.0 Glucose Level 114 mg/dL (70-99) Calcium Level 9.1 mg/dL (8.5-10.1) Medications Active Scripts Medications Dose Route/Sig Max Daily Dose Days Date Category Acetaminophen-Diphenhyd 500-25 (Acetaminophen/Diphenhydramine) 1 Each Tablet 1 Each PO HS PRN 06/18/20 Reported Naproxen 500 Mg Tablet 1 Tab PO BID PRN 30 06/18/20 Reported Tramadol Hcl 50 Mg Tablet 50 Mg PO Q4HRS 06/18/20 Reported Levothyroxine Sodium 75 Mcg Tablet 1 Tab PO DAILY 06/18/20 Reported Adderall 20 Mg Tablet (Dextroamphetamine/Amphetamine) 20 Mg Tablet 1 Tab PO DAILY MDD 1 Tablet(s) 5 06/18/20 Reported Prozac (Fluoxetine Hcl) 20 Mg Capsule 1 Cap PO [id number] 06/18/20 Reported Comments CXR IMPRESSION: Left lung base opacities likely consolidative process such as pneumonia. Small left pleural effusion. Impression . IMPRESSION: 1. Acute respiratory failure secondary to [id number] cardiopulmonary arrest/ anoxic encephalopathy-- now S/P trach 2. [id number]-qepilcjg ventricular fibrillation and asystole leading to anoxic brain injury. 3. Anoxic encephalopathy. 4. COVID neg 5. Morbid obesity. 6. Leukocytosis--improved 7. Lactic acidosis secondary to nup-ao-dwonueua cardiac arrest. 8. Abnormal x-ray revealing bibasilar atelectasis, infiltrates. 9. Pneumothorax secondary to CPR.resolved 10. Sternal sternal fracture secondary to CPR. 11. ? Pneumonia positive, gram-negative, gram-positive. Plan . PLAN: Will start T-S trial today as tolerated. Continue pressure support during rest of the day, assist control at night, Clinically consistent with Anoxic encephalopathy Trach 06/26/20, PEG on 06/27/20 Follow CXR/ABG-- reviewed Follow infectious disease recommendations in regards to antibiotics, currently on daptomycin and Zosyn, follow cultures no growth to date Follow neurology recs--no new recommendations Follow Cardiology recs-- post cardiac cath 06/25/20-- cath was clean w/ normal filling pressures Continue tube feeding for nutritional support DVT/GI PPX D/W RN and RT Social work for D/C planning --[facility] declined, family would like to give the patient a full 30 days to assess level of recovery before potentially withdrawing care. The patient would not have wanted to live on life support or with a feeding tube for prolonged period of time per family. PT. is FULL CODE Critical care time 0900-0930AM ANGELA MORENO MD Jul 03, 2020 10:09
--- NOTE | 2020-07-03 10:15 | PDOC ---
Date of Service: DATE: 07/03/20 TIME: 10:10 Objective: Objective: D/w nurse - PEG functioning well, stooling. No change in mental status. Vital Signs: Vital Signs Date Time Temp Pulse Resp B/P (MAP) Pulse Ox O2 Delivery O2 Flow Rate FiO2 07/03/20 09:54 72 24 153/72 (99) 97 Ventilator 07/03/20 06:57 98.3 98.3 07/02/20 11:04 15.0 Labs: Laboratory Tests Test 07/03/20 08:00 07/03/20 08:20 O2 Saturation 98 % Arterial Blood pH 7.48 Arterial Blood pCO2 at Patient Temp 36 mmHg Arterial Blood pO2 at Patient Temp 107 mmHg Arterial Blood HCO3 26 mmol/L Arterial Blood Base Excess 2 mmol/L FiO2 40/vent White Blood Count 8.0 x10^3/uL Red Blood Count 3.64 x10^6/uL Hemoglobin 10.6 g/dL Hematocrit 32.9 % Mean Corpuscular Volume 90 fL Mean Corpuscular Hemoglobin 29 pg Mean Corpuscular Hemoglobin Concent 32 g/dL Red Cell Distribution Width 13.1 % Platelet Count 498 x10^3/uL Neutrophils (%) (Auto) 63 % Lymphocytes (%) (Auto) 25 % Monocytes (%) (Auto) 8 % Eosinophils (%) (Auto) 3 % Basophils (%) (Auto) 1 % Neutrophils # (Auto) 5.0 x10^3/uL Lymphocytes # (Auto) 2.0 x10^3/uL Monocytes # (Auto) 0.6 x10^3/uL Eosinophils # (Auto) 0.2 x10^3/uL Basophils # (Auto) 0.1 x10^3/uL Sodium Level 142 mmol/L Potassium Level 4.1 mmol/L Chloride Level 106 mmol/L Carbon Dioxide Level 26 mmol/L Anion Gap 10 Blood Urea Nitrogen 14 mg/dL Creatinine 0.6 mg/dL Estimated GFR (Cockcroft-Gault) 103.0 Glucose Level 114 mg/dL Calcium Level 9.1 mg/dL GRAM STAIN Final Final SQUAMOUS EPI CELL:NONE SEEN PMN (WBCs):NONE SEEN YEAST:MANY Unless otherwise specified, Testing Performed by: [address] [address] For Inquires, the Physician may contact the Microbiology department at [phone] ANAEROBIC-AEROBIC CULTURE Preliminary Preliminary MANY YEAST on 07/02/20 at 0914 FINAL ID= [ABELARDO ALBICANS] ABELARDO ALBICANS Unless otherwise specified, Testing Performed by: [address] [address] For Inquires, the Physician may contact the Microbiology department at [phone] PE: GEN: NAD - supportive family present LUNGS: trach/vent HEART: RRR ABD: non-distended, soft NEURO/PSYCH: more calm today A/P: S/p cardiopulmonary arrest, anoxic encephalopathy, resp failure S/p trach and PEG -- Awaiting DC. Justicifation of Admission Dx: Justifications for Admission: Justification of Admission Dx: N/A SHAHBAZ FOSS Jul 03, 2020 10:15
[2020-07-03] MEDS ORDERED: HALOPERIDOL LACTATE 5 MG/ML VIAL. IVP PRN (12:30)
[2020-07-03] MEDS: HALOPERIDOL LACTATE 5 MG/ML VIAL. IVP PRN (14:06)
--- NOTE | 2020-07-03 14:31 | PDOC ---
PROGRESS NOTES Date of Service: DATE: 07/03/20 TIME: 14:29 Chief Complaint Chief Complaint POST covid cardiomyopathy acute systolic CHF Severe NICM: EF 25%. No significant CAD per [facility] anoxic brain injury Cardiac arrest with resuscitation and probable pneumonia, sternal fracture and pneumothorax secondary to CPR, leukocytosis, electrolyte disturbance, hypokalemia, lactic acidosis, elevated troponin. History of Present Illness History of Present Illness 07/03/2020, discussed plan with family at length yesterday Patient seen and examined in the ICU plan LTAC start PT and OT moving around a lot She is still not very responsive but at the same time kind of agitated Vitals Vitals Vital Signs Date Time Temp Pulse Resp B/P (MAP) Pulse Ox O2 Delivery O2 Flow Rate FiO2 07/03/20 14:13 76 16 152/79 (103) 98 trach shield 07/03/20 11:38 8.0 07/03/20 11:12 98.6 98.6 Physical Exam Physical Exam GENERAL: Opens eyes transiently, does not follow any commands, agitated HEENT: Both pupils are round and reacting. No conjunctival lesion. NECK: Supple. Trach present, erythema and drainage present around trach site improving LUNGS: Decreased breath sounds bilaterally. HEART: S1, S2, regular. No gallop or murmur. ABDOMEN: Soft, nontender. No organomegaly.peg tube + fecal tube , Jolly present EXTREMITIES: No edema or cyanosis. toe amputation of the Rt foot,healed scars SKIN: Unremarkable. NEUROLOGICAL: Opens eyes transiently does not follow any commands General: No acute distress Heart: Regular rate, Normal S1, Normal S2 Lungs: Clear Abdomen: Soft, No hepatosplenomegaly Extremities: No cyanosis Skin: No rashes, No breakdown Labs LABS Laboratory Tests Test 07/03/20 08:00 07/03/20 08:20 O2 Saturation 98 % (92-99) Arterial Blood pH 7.48 (7.35-7.45) Arterial Blood pCO2 at Patient Temp 36 mmHg (35-46) Arterial Blood pO2 at Patient Temp 107 mmHg (75-108) Arterial Blood HCO3 26 mmol/L (21-28) Arterial Blood Base Excess 2 mmol/L (-3-3) FiO2 40/vent White Blood Count 8.0 x10^3/uL (4.0-11.0) Red Blood Count 3.64 x10^6/uL (3.50-5.40) Hemoglobin 10.6 g/dL (12.0-15.5) Hematocrit 32.9 % (36.0-47.0) Mean Corpuscular Volume 90 fL (79-100) Mean Corpuscular Hemoglobin 29 pg (25-35) Mean Corpuscular Hemoglobin Concent 32 g/dL (31-37) Red Cell Distribution Width 13.1 % (11.5-14.5) Platelet Count 498 x10^3/uL (140-400) Neutrophils (%) (Auto) 63 % (31-73) Lymphocytes (%) (Auto) 25 % (24-48) Monocytes (%) (Auto) 8 % (0-9) Eosinophils (%) (Auto) 3 % (0-3) Basophils (%) (Auto) 1 % (0-3) Neutrophils # (Auto) 5.0 x10^3/uL (1.8-7.7) Lymphocytes # (Auto) 2.0 x10^3/uL (1.0-4.8) Monocytes # (Auto) 0.6 x10^3/uL (0.0-1.1) Eosinophils # (Auto) 0.2 x10^3/uL (0.0-0.7) Basophils # (Auto) 0.1 x10^3/uL (0.0-0.2) Sodium Level 142 mmol/L (136-145) Potassium Level 4.1 mmol/L (3.5-5.1) Chloride Level 106 mmol/L (98-107) Carbon Dioxide Level 26 mmol/L (21-32) Anion Gap 10 (6-14) Blood Urea Nitrogen 14 mg/dL (7-20) Creatinine 0.6 mg/dL (0.6-1.0) Estimated GFR (Cockcroft-Gault) 103.0 Glucose Level 114 mg/dL (70-99) Calcium Level 9.1 mg/dL (8.5-10.1) Assessment and Plan Assessmemt and Plan Problems Medical Problems: (1) Cardiac arrest Status: Acute (2) Fracture of ribs, multiple Status: Acute (3) Hyperglycemia Status: Acute (4) Pneumonia Status: Acute (5) Pneumothorax, right Status: Acute (6) Sternal fracture Status: Acute (7) VF (ventricular fibrillation) Status: Acute Comment Review of Relevant I have reviewed the following items afua (where applicable) has been applied. Labs Laboratory Tests Test 07/02/20 04:05 07/03/20 08:00 07/03/20 08:20 White Blood Count 11.8 x10^3/uL (4.0-11.0) 8.0 x10^3/uL (4.0-11.0) Red Blood Count 3.60 x10^6/uL (3.50-5.40) 3.64 x10^6/uL (3.50-5.40) Hemoglobin 10.6 g/dL (12.0-15.5) 10.6 g/dL (12.0-15.5) Hematocrit 32.7 % (36.0-47.0) 32.9 % (36.0-47.0) Mean Corpuscular Volume 91 fL (79-100) 90 fL (79-100) Mean Corpuscular Hemoglobin 29 pg (25-35) 29 pg (25-35) Mean Corpuscular Hemoglobin Concent 32 g/dL (31-37) 32 g/dL (31-37) Red Cell Distribution Width 12.8 % (11.5-14.5) 13.1 % (11.5-14.5) Platelet Count 416 x10^3/uL (140-400) 498 x10^3/uL (140-400) Neutrophils (%) (Auto) 77 % (31-73) 63 % (31-73) Lymphocytes (%) (Auto) 14 % (24-48) 25 % (24-48) Monocytes (%) (Auto) 6 % (0-9) 8 % (0-9) Eosinophils (%) (Auto) 3 % (0-3) 3 % (0-3) Basophils (%) (Auto) 1 % (0-3) 1 % (0-3) Neutrophils # (Auto) 9.0 x10^3/uL (1.8-7.7) 5.0 x10^3/uL (1.8-7.7) Lymphocytes # (Auto) 1.6 x10^3/uL (1.0-4.8) 2.0 x10^3/uL (1.0-4.8) Monocytes # (Auto) 0.7 x10^3/uL (0.0-1.1) 0.6 x10^3/uL (0.0-1.1) Eosinophils # (Auto) 0.4 x10^3/uL (0.0-0.7) 0.2 x10^3/uL (0.0-0.7) Basophils # (Auto) 0.1 x10^3/uL (0.0-0.2) 0.1 x10^3/uL (0.0-0.2) Sodium Level 142 mmol/L (136-145) 142 mmol/L (136-145) Potassium Level 3.7 mmol/L (3.5-5.1) 4.1 mmol/L (3.5-5.1) Chloride Level 105 mmol/L (98-107) 106 mmol/L (98-107) Carbon Dioxide Level 26 mmol/L (21-32) 26 mmol/L (21-32) Anion Gap 11 (6-14) 10 (6-14) Blood Urea Nitrogen 12 mg/dL (7-20) 14 mg/dL (7-20) Creatinine 0.6 mg/dL (0.6-1.0) 0.6 mg/dL (0.6-1.0) Estimated GFR (Cockcroft-Gault) 103.0 103.0 BUN/Creatinine Ratio 20 (6-20) Glucose Level 110 mg/dL (70-99) 114 mg/dL (70-99) Calcium Level 9.2 mg/dL (8.5-10.1) 9.1 mg/dL (8.5-10.1) Total Bilirubin 0.4 mg/dL (0.2-1.0) Aspartate Amino Transf (AST/SGOT) 26 U/L (15-37) Alanine Aminotransferase (ALT/SGPT) 29 U/L (14-59) Alkaline Phosphatase 112 U/L (46-116) Total Protein 7.2 g/dL (6.4-8.2) Albumin 2.6 g/dL (3.4-5.0) Albumin/Globulin Ratio 0.6 (1.0-1.7) O2 Saturation 98 % (92-99) Arterial Blood pH 7.48 (7.35-7.45) Arterial Blood pCO2 at Patient Temp 36 mmHg (35-46) Arterial Blood pO2 at Patient Temp 107 mmHg (75-108) Arterial Blood HCO3 26 mmol/L (21-28) Arterial Blood Base Excess 2 mmol/L (-3-3) FiO2 40/vent Laboratory Tests Test 07/03/20 08:00 07/03/20 08:20 O2 Saturation 98 % (92-99) Arterial Blood pH 7.48 (7.35-7.45) Arterial Blood pCO2 at Patient Temp 36 mmHg (35-46) Arterial Blood pO2 at Patient Temp 107 mmHg (75-108) Arterial Blood HCO3 26 mmol/L (21-28) Arterial Blood Base Excess 2 mmol/L (-3-3) FiO2 40/vent White Blood Count 8.0 x10^3/uL (4.0-11.0) Red Blood Count 3.64 x10^6/uL (3.50-5.40) Hemoglobin 10.6 g/dL (12.0-15.5) Hematocrit 32.9 % (36.0-47.0) Mean Corpuscular Volume 90 fL (79-100) Mean Corpuscular Hemoglobin 29 pg (25-35) Mean Corpuscular Hemoglobin Concent 32 g/dL (31-37) Red Cell Distribution Width 13.1 % (11.5-14.5) Platelet Count 498 x10^3/uL (140-400) Neutrophils (%) (Auto) 63 % (31-73) Lymphocytes (%) (Auto) 25 % (24-48) Monocytes (%) (Auto) 8 % (0-9) Eosinophils (%) (Auto) 3 % (0-3) Basophils (%) (Auto) 1 % (0-3) Neutrophils # (Auto) 5.0 x10^3/uL (1.8-7.7) Lymphocytes # (Auto) 2.0 x10^3/uL (1.0-4.8) Monocytes # (Auto) 0.6 x10^3/uL (0.0-1.1) Eosinophils # (Auto) 0.2 x10^3/uL (0.0-0.7) Basophils # (Auto) 0.1 x10^3/uL (0.0-0.2) Sodium Level 142 mmol/L (136-145) Potassium Level 4.1 mmol/L (3.5-5.1) Chloride Level 106 mmol/L (98-107) Carbon Dioxide Level 26 mmol/L (21-32) Anion Gap 10 (6-14) Blood Urea Nitrogen 14 mg/dL (7-20) Creatinine 0.6 mg/dL (0.6-1.0) Estimated GFR (Cockcroft-Gault) 103.0 Glucose Level 114 mg/dL (70-99) Calcium Level 9.1 mg/dL (8.5-10.1) Microbiology 06/30/20 Gram Stain - Final, Resulted 06/30/20 Aerobic and Anaerobic Culture - Preliminary, Resulted 06/17/20 Blood Culture - Final, Complete NO GROWTH AFTER 5 DAYS Medications Current Medications Amiodarone HCl 150 mg/Dextrose 103 ml @ 618 mls/hr 1X ONCE IV Last administered on 06/17/20at 07:00; Start 06/17/20 at 07:00; Stop 06/17/20 at 07:09; Status DC Amiodarone HCl 450 mg/Dextrose 259 ml @ 33 mls/hr 1X ONCE IV ; Start 06/17/20 at 07:00; Stop 06/17/20 at 14:50; Status DC Sodium Chloride 1,000 ml @ 1,000 mls/hr 1X ONCE IV Last administered on 06/17/20at 08:11; Start 06/17/20 at 07:15; Stop 06/17/20 at 08:14; Status DC Midazolam HCl 100 ml @ 0 mls/hr 1X ONCE IV ; Start 06/17/20 at 07:15; Stop 06/17/20 at 07:16; Status DC Midazolam HCl (Versed) 5 mg STK-MED ONCE .ROUTE ; Start 06/17/20 at 07:17; Stop 06/17/20 at 07:17; Status DC Iohexol (Omnipaque 300 Mg/ml) 75 ml 1X ONCE IV Last administered on 06/17/20at 08:17; Start 06/17/20 at 08:15; Stop 06/17/20 at 08:16; Status DC Iohexol (Omnipaque 350 Mg/ml) 100 ml 1X ONCE IV Last administered on 06/17/20at 08:17; Start 06/17/20 at 08:15; Stop 06/17/20 at 08:16; Status DC Info (CONTRAST GIVEN -- Rx MONITORING) 1 each PRN DAILY PRN MC SEE COMMENTS; Start 06/17/20 at 08:15; Stop 06/19/20 at 08:14; Status DC Sodium Chloride 1,000 ml @ 1,000 mls/hr 1X ONCE IV Last administered on 06/17/20at 08:25; Start 06/17/20 at 08:15; Stop 06/17/20 at 09:14; Status DC Potassium Chloride/Water 100 ml @ 50 mls/hr 1X ONCE IV Last administered on 06/17/20at 10:16; Start 06/17/20 at 09:00; Stop 06/17/20 at 10:59; Status DC Piperacillin Sod/ Tazobactam Sod (Zosyn Per Pharmacy) 1 each PRN DAILY PRN MC SEE COMMENTS; Start 06/17/20 at 08:45; Stop 06/27/20 at 11:36; Status DC Piperacillin Sod/ Tazobactam Sod 4.5 gm/Sodium Chloride 100 ml @ 200 mls/hr 1X ONCE IV Last administered on 06/17/20at 10:15; Start 06/17/20 at 08:45; Stop 06/17/20 at 09:14; Status DC Sodium Chloride 1,000 ml @ 125 mls/hr Q8H IV Last administered on 06/17/20at 23:39; Start 06/17/20 at 09:00; Stop 06/18/20 at 08:59; Status DC Propofol (Diprivan) 200 mg 1X ONCE IV Last administered on 06/17/20at 09:00; Start 06/17/20 at 09:00; Stop 06/17/20 at 09:01; Status DC Propofol 100 ml @ As Directed STK-MED ONCE IV ; Start 06/17/20 at 09:05; Stop 06/17/20 at 09:05; Status DC Lidocaine HCl (Lidocaine 1% 20ml Vial) 20 ml 1X ONCE INJ Last administered on 06/17/20at 09:15; Start 06/17/20 at 09:15; Stop 06/17/20 at 09:20; Status DC Lidocaine HCl (Xylocaine-Mpf 1% 5ml Vial) 5 ml STK-MED ONCE .ROUTE ; Start 06/17/20 at 09:26; Stop 06/17/20 at 09:26; Status DC Sodium Chloride 1,000 ml @ 1,000 mls/hr 1X ONCE IV Last administered on 06/17/20at 10:15; Start 06/17/20 at 10:15; Stop 06/17/20 at 11:14; Status DC Propofol 100 ml @ 3.819 mls/ hr CONT PRN IV PER PROTOCOL Last administered on 06/25/20at 06:12; Start 06/17/20 at 10:45; Stop 06/29/20 at 11:47; Status DC Fentanyl Citrate (Fentanyl 2ml Vial) 100 mcg 1X ONCE IV ; Start 06/17/20 at 12:00; Stop 06/17/20 at 12:39; Status DC Midazolam HCl (Versed) 2 mg 1X ONCE IV ; Start 06/17/20 at 12:00; Stop 06/17/20 at 12:39; Status DC Magnesium Sulfate/ Dextrose 100 ml @ 100 mls/hr 1X ONCE IV Last administered on 06/17/20at 12:22; Start 06/17/20 at 12:00; Stop 06/17/20 at 12:39; Status DC Buspirone HCl (Buspar) 30 mg Q8H NG Last administered on 06/17/20at 12:31; Start 06/17/20 at 12:00; Stop 06/17/20 at 12:39; Status DC Glycerin/ Hypromellose/ Polyethylene (Artificial Tears) 1 drop Q6HRS OU ; Start 06/17/20 at 12:00; Stop 06/17/20 at 12:39; Status DC Glycerin/ Hypromellose/ Polyethylene (Artificial Tears) 1 drop PRN Q15MIN PRN OU DRY EYE; Start 06/17/20 at 12:00; Stop 06/17/20 at 12:39; Status DC Heparin Sodium (Porcine) (Heparin Sodium) 5,000 unit BID SQ ; Start 06/17/20 at 21:00; Stop 06/17/20 at 12:39; Status DC Pantoprazole Sodium (PROTONIX VIAL for IV PUSH) 40 mg DAILY IVP ; Start 06/18/20 at 09:00; Stop 06/17/20 at 12:39; Status DC Fentanyl Citrate 30 ml @ 0 mls/hr CONT PRN IV PER PROTOCOL.; Start 06/17/20 at 12:00; Stop 06/17/20 at 12:39; Status DC Propofol 100 ml @ 0 mls/hr CONT PRN IV PER PROTOCOL.; Start 06/17/20 at 12:00; Stop 06/17/20 at 12:39; Status DC Midazolam HCl 100 ml @ 0 mls/hr CONT PRN IV PER PROTOCOL; Start 06/17/20 at 12:00; Stop 06/17/20 at 12:39; Status DC Vecuronium [place] (Norcuron Bolus) 10 mg PRN Q1HR PRN IV SHIVERING; Start 06/17/20 at 12:00; Stop 06/17/20 at 12:39; Status DC Piperacillin Sod/ Tazobactam Sod 4.5 gm/Sodium Chloride 100 ml @ 200 mls/hr 1X ONCE IV ; Start 06/17/20 at 12:15; Stop 06/17/20 at 12:44; Status Cancel Midazolam HCl (Versed) 5 mg Q1HR PRN IV SEDATION Last administered on 06/29/20at 13:48; Start 06/17/20 at 12:45 Fentanyl Citrate (Fentanyl 2ml Vial) 100 mcg Q1HR IVP Last administered on 06/17/20at 18:55; Start 06/17/20 at 13:00; Stop 06/17/20 at 23:41; Status DC Piperacillin Sod/ Tazobactam Sod 3.375 gm/Sodium Chloride 50 ml @ 100 mls/hr Q6H IV Last administered on 06/27/20at 05:31; Start 06/17/20 at 16:00; Stop 06/27/20 at 11:30; Status DC Potassium Bicarbonate (Potassium Effervescent Tablet) 40 meq 1X ONCE NG Last administered on 06/18/20at 10:00; Start 06/18/20 at 09:45; Stop 06/18/20 at 09:48; Status DC Albuterol/ Ipratropium (Duoneb) 3 ml RTQID NEB Last administered on 07/03/20at 12:31; Start 06/18/20 at 20:00 Famotidine (Pepcid Vial) 20 mg BID IVP Last administered on 07/02/20at 08:05; Start 06/18/20 at 21:00; Stop 07/02/20 at 10:23; Status DC Enoxaparin Sodium (Lovenox 40mg Syringe) 40 mg Q24H SQ Last administered on 07/02/20at 20:59; Start 06/18/20 at 21:00 Levothyroxine Sodium (Synthroid) 75 mcg DAILY06 PO Last administered on 07/03/20at 05:50; Start 06/18/20 at 21:00 Fentanyl Citrate 30 ml @ 0 mls/hr CONT PRN IV SEE PROTOCOL Last administered on 06/28/20at 04:56; Start 06/18/20 at 20:15; Stop 06/29/20 at 11:47; Status DC Carvedilol (Coreg) 3.125 mg BIDWMEALS PO Last administered on 07/03/20at 08:52; Start 06/19/20 at 17:00 Atorvastatin Calcium (Lipitor) 20 mg QHS PO Last administered on 07/02/20at 20:58; Start 06/19/20 at 21:00 Aspirin (Aspirin Chewable) 81 mg [id number] PO Last administered on 07/03/20at 08:51; Start 06/20/20 at 08:00 Aspirin (Aspirin Chewable) 81 mg 1X ONCE PO Last administered on 06/19/20at 15:57; Start 06/19/20 at 15:30; Stop 06/19/20 at 15:37; Status DC Potassium Chloride/Water 100 ml @ 100 mls/hr 1X ONCE IV Last administered on 06/19/20at 15:57; Start 06/19/20 at 15:30; Stop 06/19/20 at 16:29; Status DC Amiodarone HCl (Cordarone) 400 mg DAILY PO Last administered on 07/03/20at 08:53; Start 06/20/20 at 09:00 Furosemide (Lasix) 40 mg 1X ONCE IVP Last administered on 06/20/20at 14:38; Start 06/20/20 at 13:30; Stop 06/20/20 at 13:31; Status DC Potassium Chloride/Water 100 ml @ 100 mls/hr 1X ONCE IV Last administered on 06/20/20at 14:39; Start 06/20/20 at 13:30; Stop 06/20/20 at 14:29; Status DC Dexmedetomidine HCl 400 mcg/ Sodium Chloride 100 ml @ 0 mls/hr CONT PRN IV PER PROTOCOL Last administered on 06/29/20at 06:11; Start 06/21/20 at 10:45; Stop 06/29/20 at 11:47; Status DC Sodium Chloride 500 ml @ 500 mls/hr 1X PRN PRN IV SEE COMMENTS; Start 06/21/20 at 10:45 Atropine Sulfate (ATROPINE 0.5mg SYRINGE) 0.5 mg PRN Q5MIN PRN IV SEE COMMENTS; Start 06/21/20 at 10:45; Stop 06/29/20 at 11:47; Status DC Fentanyl Citrate (Fentanyl 2ml Vial) 50 mcg PRN Q2HR PRN IVP PAIN Last administered on 07/03/20at 04:14; Start 06/23/20 at 16:45 Midazolam HCl 100 ml @ 0 mls/hr CONT PRN IV SEE PROTOCOL Last administered on 06/28/20at 03:00; Start 06/25/20 at 11:45; Stop 06/29/20 at 11:47; Status DC Lidocaine HCl (Xylocaine-Mpf 1% 2ml Vial) 2 ml STK-MED ONCE .ROUTE ; Start 06/25/20 at 14:21; Stop 06/25/20 at 14:21; Status DC Iohexol (Omnipaque 300 Mg/ml) 100 ml STK-MED ONCE .ROUTE ; Start 06/25/20 at 14:21; Stop 06/25/20 at 14:21; Status DC Heparin Sodium/ Sodium Chloride 1,000 ml @ As Directed STK-MED ONCE .ROUTE ; Start 06/25/20 at 14:21; Stop 06/25/20 at 14:21; Status DC Heparin Sodium (Porcine) (Heparin Sodium) 10,000 unit STK-MED ONCE .ROUTE ; Start 06/25/20 at 14:31; Stop 06/25/20 at 14:31; Status DC Verapamil HCl (Verapamil) 5 mg STK-MED ONCE .ROUTE ; Start 06/25/20 at 14:31; Stop 06/25/20 at 14:31; Status DC Nitroglycerin (Nitroglycerin) 200 mcg STK-MED ONCE .ROUTE ; Start 06/25/20 at 14:31; Stop 06/25/20 at 14:31; Status DC Nitroglycerin (Nitroglycerin) 200 mcg 1X ONCE IART Last administered on 06/25/20at 15:09; Start 06/25/20 at 15:15; Stop 06/25/20 at 15:16; Status DC Verapamil HCl (Verapamil) 2.5 mg 1X ONCE IART Last administered on 06/25/20at 15:09; Start 06/25/20 at 15:15; Stop 06/25/20 at 15:16; Status DC Heparin Sodium (Porcine) (Heparin Sodium) 2,500 unit 1X ONCE IART Last administered on 06/25/20at 15:09; Start 06/25/20 at 15:15; Stop 06/25/20 at 15:16; Status DC Heparin Sodium/ Sodium Chloride (HEPARIN for ARTERIAL LINE FLUSH) 1,000 unit 1X ONCE IART Last administered on 06/25/20at 15:09; Start 06/25/20 at 15:15; Stop 06/25/20 at 15:16; Status DC Iohexol (Omnipaque 300 Mg/ml) 30 ml 1X ONCE IART Last administered on 06/25/20at 15:09; Start 06/25/20 at 15:15; Stop 06/25/20 at 15:16; Status DC Lidocaine HCl (Xylocaine-Mpf 1% 2ml Vial) 2 ml 1X ONCE INJ Last administered on 06/25/20at 15:09; Start 06/25/20 at 15:15; Stop 06/25/20 at 15:16; Status DC Amino Acids/ Glycerin/ Electrolytes 1,000 ml @ 80 mls/hr [id number] IV Last administered on 06/27/20at 20:50; Start 06/25/20 at 17:30; Stop 06/28/20 at 11:35; Status DC Potassium Chloride/Water 100 ml @ 100 mls/hr Q1H IV Last administered on 06/25/20at 18:46; Start 06/25/20 at 18:00; Stop 06/25/20 at 19:59; Status DC Rocuronium [place] (Zemuron) 50 mg STK-MED ONCE .ROUTE ; Start 06/26/20 at 11:37; Stop 06/26/20 at 11:38; Status DC Cellulose (Surgicel Fibrillar 1x2) 1 each STK-MED ONCE .ROUTE Last administered on 06/26/20at 13:20; Start 06/26/20 at 12:19; Stop 06/26/20 at 12:19; Status DC Bupivacaine HCl (Sensorcaine Mpf 0.5%) 30 ml STK-MED ONCE .ROUTE ; Start 06/26/20 at 12:19; Stop 06/26/20 at 12:19; Status DC Ondansetron HCl (Zofran) 4 mg STK-MED ONCE .ROUTE ; Start 06/26/20 at 13:13; Stop 06/26/20 at 13:13; Status DC Dexamethasone Sodium Phosphate (Decadron) 4 mg STK-MED ONCE .ROUTE ; Start 06/26/20 at 13:13; Stop 06/26/20 at 13:14; Status DC Cellulose (Surgicel Fibrillar 1x2) 1 each STK-MED ONCE .ROUTE Last administered on 06/26/20at 13:22; Start 06/26/20 at 13:25; Stop 06/26/20 at 13:25; Status DC Sevoflurane (Ultane) 30 ml STK-MED ONCE IH ; Start 06/26/20 at 13:37; Stop 06/26/20 at 13:38; Status DC Propofol (Diprivan) 200 mg STK-MED ONCE IV ; Start 06/26/20 at 13:38; Stop 06/26/20 at 13:38; Status DC Ringer's Solution 1,000 ml @ 30 mls/hr Q24H IV Last administered on 06/27/20at 08:39; Start 06/27/20 at 07:00; Stop 06/27/20 at 18:59; Status DC Prochlorperazine Edisylate (Compazine) 5 mg PACU PRN PRN IV NAUSEA, MRX1; Start 06/27/20 at 07:00; Stop 06/28/20 at 06:59; Status DC Propofol (Diprivan) 200 mg STK-MED ONCE IV ; Start 06/27/20 at 09:53; Stop 06/27/20 at 09:54; Status DC Lidocaine HCl (Lidocaine Pf 2% Vial) 5 ml STK-MED ONCE .ROUTE ; Start 06/27/20 at 09:54; Stop 06/27/20 at 09:54; Status DC Lisinopril (Prinivil) 5 mg DAILY PO Last administered on 07/03/20at 08:52; Start 06/29/20 at 09:00 Acetaminophen/ Hydrocodone Bitart (Lortab 7.5-325/ 15ml Oral Solution) 10 ml 1X ONCE PEG Last administered on 06/28/20at 12:37; Start 06/28/20 at 12:30; Stop 06/28/20 at 12:31; Status DC Piperacillin Sod/ Tazobactam Sod 3.375 gm/Sodium Chloride 50 ml @ 100 mls/hr Q6HRS IV Last administered on 07/03/20at 11:15; Start 06/29/20 at 10:00 Vecuronium [place] (Norcuron Bolus) 10 mg STK-MED ONCE IV ; Start 06/29/20 at 14:31; Stop 06/29/20 at 14:31; Status DC Propofol 100 ml @ 0 mls/hr CONT PRN IV PER PROTOCOL Last administered on 07/02/20at 07:26; Start 06/29/20 at 16:30 Vecuronium [place] (Norcuron Bolus) 10 mg 1X ONCE IV Last administered on 06/29/20at 14:31; Start 06/29/20 at 14:31; Stop 06/29/20 at 17:19; Status DC Daptomycin 400 mg/ Sodium Chloride 50 ml @ 100 mls/hr Q24H IV Last administered on 07/03/20at 08:54; Start 06/30/20 at 10:00 Famotidine (Pepcid) 20 mg QHS GT Last administered on 07/03/20at 08:52; Start 07/02/20 at 21:00 Haloperidol Lactate (Haldol Inj) 5 mg Q8HRS IVP Last administered on 07/03/20at 06:00; Start 07/02/20 at 14:00; Stop 07/03/20 at 12:40; Status DC Micafungin Sodium 100 mg/Dextrose 100 ml @ 100 mls/hr Q24H IV Last administered on 07/03/20at 08:54; Start 07/03/20 at 09:00 Alteplase, Recombinant (Cathflo For Central Catheter Clearance) 1 mg 1X ONCE INT CAT Last administered on 07/03/20at 08:45; Start 07/03/20 at 08:45; Stop 07/03/20 at 08:46; Status DC Haloperidol Lactate (Haldol Inj) 2.5 mg PRN Q6HRS PRN IVP AGITATION; Start 07/03/20 at 12:30; Stop 07/03/20 at 12:40; Status DC Haloperidol Lactate (Haldol Inj) 2.5 mg PRN Q6HRS PRN IVP AGITATION Last admin istered on 07/03/20at 14:06; Start 07/03/20 at 14:00 Active Scripts Active Reported Acetaminophen-Diphenhyd 500-25 (Acetaminophen/Diphenhydramine) 1 Each Tablet 1 Each PO HS PRN Naproxen 500 Mg Tablet 1 Tab PO BID PRN 30 Days Tramadol Hcl 50 Mg Tablet 50 Mg PO Q4HRS Levothyroxine Sodium 75 Mcg Tablet 1 Tab PO DAILY Adderall 20 Mg Tablet (Dextroamphetamine/Amphetamine) 20 Mg Tablet 1 Tab PO DAILY MDD 1 Tablet(s) 5 Days Prozac (Fluoxetine Hcl) 20 Mg Capsule 1 Cap PO [id number] Vitals/I & O Vital Sign - Last 24 Hours 07/02/20 07/02/20 07/02/20 07/02/20 15:00 15:18 16:00 16:44 Temp 99.5 99.5 Pulse 66 62 Resp 28 28 B/P (MAP) 137/74 (95) 101/57 (72) Pulse Ox 98 99 98 O2 Delivery Ventilator Ventilator Ventilator Mechanical Ventilator 07/02/20 07/02/20 07/02/20 07/02/20 17:00 17:15 18:07 19:00 Pulse 62 62 62 56 Resp 12 12 12 B/P (MAP) 102/59 102/59 (73) 104/66 (79) 106/54 (71) Pulse Ox 99 98 100 O2 Delivery Ventilator Ventilator Ventilator 07/02/20 07/02/20 07/02/20 07/02/20 19:49 20:00 20:00 21:00 Temp 97.7 97.7 Pulse 62 56 Resp 12 12 B/P (MAP) 113/71 (85) 108/64 (79) Pulse Ox 99 99 96 O2 Delivery Ventilator Mechanical Ventilator Ventilator Ventilator 07/02/20 07/02/20 07/03/20 07/03/20 22:00 23:00 00:00 00:00 Temp 97.8 97.8 Pulse 58 66 59 Resp 12 12 12 B/P (MAP) 123/61 (81) 100/60 (73) 128/70 (89) Pulse Ox 97 97 100 O2 Delivery Ventilator Ventilator Ventilator Mechanical Ventilator 07/03/20 07/03/20 07/03/20 07/03/20 00:29 01:00 02:00 03:00 Pulse 55 68 66 Resp 12 12 12 B/P (MAP) 117/59 (78) 87/57 (67) 127/59 (81) Pulse Ox 98 98 99 99 O2 Delivery Ventilator Ventilator Ventilator Ventilator 07/03/20 07/03/20 07/03/20 07/03/20 04:00 04:00 04:34 05:00 Temp 98.0 98.0 Pulse 78 62 Resp 12 12 B/P (MAP) 153/84 (107) 106/61 (76) Pulse Ox 99 97 99 O2 Delivery Ventilator Mechanical Ventilator Ventilator Ventilator 07/03/20 07/03/20 07/03/20 07/03/20 06:00 06:57 07:53 07:59 Temp 98.3 98.3 Pulse 75 79 80 Resp 12 18 19 B/P (MAP) 97/64 (75) 118/76 (90) 138/86 (103) Pulse Ox 98 98 98 O2 Delivery Ventilator Ventilator Mechanical Ventilator Ventilator 07/03/20 07/03/20 07/03/20 07/03/20 08:00 08:52 08:52 08:53 Pulse 78 76 78 B/P (MAP) 176/82 176/82 176/82 Pulse Ox 97 O2 Delivery Ventilator 07/03/20 07/03/20 07/03/20 07/03/20 09:00 09:20 09:54 11:12 Temp 98.6 98.6 Pulse 80 72 68 Resp 24 24 20 B/P (MAP) 164/88 (113) 153/72 (99) 96/49 (65) Pulse Ox 98 97 96 O2 Delivery Ventilator Ventilator Ventilator Ventilator 07/03/20 07/03/20 07/03/20 07/03/20 11:30 11:38 11:53 12:00 Pulse 62 Resp 24 B/P (MAP) 123/70 (87) Pulse Ox 97 96 O2 Delivery Ventilator Tracheal Collar Mechanical Ventilator Ventilator O2 Flow Rate 8.0 07/03/20 07/03/20 13:01 14:13 Pulse 81 76 Resp 24 16 B/P (MAP) 123/54 (77) 152/79 (103) Pulse Ox 95 98 O2 Delivery trach shield trach shield Intake and Output 07/02/20 07/02/20 07/03/20 15:00 23:00 07:00 Intake Total 400 ml 575 ml 1207 ml Output Total 635 ml 625 ml 680 ml Balance -235 ml -50 ml 527 ml Justicifation of Admission Dx: Justifications for Admission: Justification of Admission Dx: N/A ERIKA CHEUNG MD Jul 03, 2020 14:31
--- NOTE | 2020-07-03 14:42 | NUR ---
SS following up with discharge planning. SS reviewed pt chart and discussed with pt RN. Pt is currently on the vent at 35%. Using trach shield intermittently. Trach and Peg in place. COVID19 negative. Pt on IV Micafungin, IV Daptomycin, and IV Zosyn. [facility] contacted SS and declined pt stating that pt's insurance is too high of a risk and corporate denied pt. SS phoned and faxed referral to [facility], ; fax [phone]. SS will continue to follow for discharge planning.
[2020-07-03] MEDS: ATORVASTATIN CALCIUM 20 MG TABLET PO SCH (21:36)
[2020-07-03] MEDS: ENOXAPARIN 40 MG/0.4 ML SYRINGE. SQ SCH (21:36)
[2020-07-04] VITALS (24 sets, daily range): BP systolic 105–167; BP diastolic 63–97
[2020-07-04] MEDS: PIPERACILLIN/TAZOBACTAM 3.375 GM in IV NORMAL SALINE 50ML 50 ML IV SCH ×4 (00:10→18:26)
[2020-07-04] MEDS: HALOPERIDOL LACTATE 5 MG/ML VIAL. IVP PRN (01:04)
[2020-07-04] MEDS: LEVOTHYROXINE 75 MCG TABLET PO SCH (05:43)
--- NOTE | 2020-07-04 08:08 | PDOC ---
Infectious Disease Note Subjective: Subjective Patient remains on ventilator Does not follow any commands Remains afebrile Tolerating tube feedings well Discussed with RN Vital Signs: Vital Signs Vital Signs Date Time Temp Pulse Resp B/P (MAP) Pulse Ox O2 Delivery O2 Flow Rate FiO2 07/04/20 07:24 98.5 86 22 157/84 (108) 98 Ventilator 98.5 07/03/20 16:00 8.0 Physical Exam: PHYSICAL EXAM GENERAL: Opens eyes transiently, does not follow any commands, agitated HEENT: Both pupils are round and reacting. No conjunctival lesion. NECK: Supple. Trach present, erythema and drainage present around trach site improving LUNGS: Decreased breath sounds bilaterally. HEART: S1, S2, regular. No gallop or murmur. ABDOMEN: Soft, nontender. No organomegaly.peg tube + fecal tube , Jolly present EXTREMITIES: No edema or cyanosis. toe amputation of the Rt foot,healed scars SKIN: Unremarkable. NEUROLOGICAL: Opens eyes transiently does not follow any commands Medications: Inpatient Meds: Current Medications Medications (Trade) Dose Ordered Sig/Rosalio Start Time Stop Time Status Last Admin Dose Admin Acetaminophen/ Hydrocodone Bitart (Lortab 7.5-325/ 15ml Oral Solution) 10 ml 1X ONCE 06/28/20 12:30 06/28/20 12:31 DC 06/28/20 12:37 10 ML Albuterol/ Ipratropium (Duoneb) 3 ml RTQID 06/18/20 20:00 07/03/20 20:21 3 ML Alteplase, Recombinant (Cathflo For Central Catheter Clearance) 1 mg 1X ONCE 07/03/20 08:45 07/03/20 08:46 DC 07/03/20 08:45 1 MG Amino Acids/ Glycerin/ Electrolytes 1,000 ml @ 80 mls/hr [id number] 06/25/20 17:30 06/28/20 11:35 DC 06/27/20 20:50 80 MLS/HR Amiodarone HCl (Cordarone) 400 mg DAILY 06/20/20 09:00 07/03/20 08:53 400 MG Amiodarone HCl 150 mg/Dextrose 103 ml @ 618 mls/hr 1X ONCE 06/17/20 07:00 06/17/20 07:09 DC 06/17/20 07:00 618 MLS/HR Amiodarone HCl 450 mg/Dextrose 259 ml @ 33 mls/hr 1X ONCE 06/17/20 07:00 06/17/20 14:50 DC Aspirin (Aspirin Chewable) 81 mg 1X ONCE 06/19/20 15:30 06/19/20 15:37 DC 06/19/20 15:57 81 MG Atorvastatin Calcium (Lipitor) 20 mg QHS 06/19/20 21:00 07/03/20 21:36 20 MG Atropine Sulfate (ATROPINE 0.5mg SYRINGE) 0.5 mg PRN Q5MIN PRN 06/21/20 10:45 06/29/20 11:47 DC Bupivacaine HCl (Sensorcaine Mpf 0.5%) 30 ml STK-MED ONCE 06/26/20 12:19 06/26/20 12:19 DC Buspirone HCl (Buspar) 30 mg Q8H 06/17/20 12:00 06/17/20 12:39 DC 06/17/20 12:31 30 MG Carvedilol (Coreg) 3.125 mg BIDWMEALS 06/19/20 17:00 07/03/20 17:19 3.125 MG Cellulose (Surgicel Fibrillar 1x2) 1 each STK-MED ONCE 06/26/20 13:25 06/26/20 13:25 DC 06/26/20 13:22 1 EACH Daptomycin 400 mg/ Sodium Chloride 50 ml @ 100 mls/hr Q24H 06/30/20 10:00 07/03/20 08:54 100 MLS/HR Dexamethasone Sodium Phosphate (Decadron) 4 mg STK-MED ONCE 06/26/20 13:13 06/26/20 13:14 DC Dexmedetomidine HCl 400 mcg/ Sodium Chloride 100 ml @ 0 mls/hr CONT PRN 06/21/20 10:45 06/29/20 11:47 DC 06/29/20 06:11 15.1 MLS/HR Enoxaparin Sodium (Lovenox 40mg Syringe) 40 mg Q24H 06/18/20 21:00 07/03/20 21:36 40 MG Famotidine (Pepcid Vial) 20 mg BID 06/18/20 21:00 07/02/20 10:23 DC 07/02/20 08:05 20 MG Famotidine (Pepcid) 20 mg QHS 07/02/20 21:00 07/03/20 08:52 20 MG Fentanyl Citrate (Fentanyl 2ml Vial) 50 mcg PRN Q2HR PRN 06/23/20 16:45 07/03/20 04:14 50 MCG Furosemide (Lasix) 40 mg 1X ONCE 06/20/20 13:30 06/20/20 13:31 DC 06/20/20 14:38 40 MG Glycerin/ Hypromellose/ Polyethylene (Artificial Tears) 1 drop PRN Q15MIN PRN 06/17/20 12:00 06/17/20 12:39 DC Haloperidol Lactate (Haldol Inj) 2.5 mg Q8HRS 07/04/20 10:00 UNV Heparin Sodium (Porcine) (Heparin Sodium) 2,500 unit 1X ONCE 06/25/20 15:15 06/25/20 15:16 DC 06/25/20 15:09 2,500 UNIT Heparin Sodium/ Sodium Chloride (HEPARIN for ARTERIAL LINE FLUSH) 1,000 unit 1X ONCE 06/25/20 15:15 06/25/20 15:16 DC 06/25/20 15:09 1,000 UNIT Info (CONTRAST GIVEN -- Rx MONITORING) 1 each PRN DAILY PRN 06/17/20 08:15 06/19/20 08:14 DC Iohexol (Omnipaque 300 Mg/ml) 30 ml 1X ONCE 06/25/20 15:15 06/25/20 15:16 DC 06/25/20 15:09 30 ML Iohexol (Omnipaque 350 Mg/ml) 100 ml 1X ONCE 06/17/20 08:15 06/17/20 08:16 DC 06/17/20 08:17 100 ML Levothyroxine Sodium (Synthroid) 75 mcg DAILY06 06/18/20 21:00 07/04/20 05:43 75 MCG Lidocaine HCl (Lidocaine 1% 20ml Vial) 20 ml 1X ONCE 06/17/20 09:15 06/17/20 09:20 DC 06/17/20 09:15 20 ML Lidocaine HCl (Lidocaine Pf 2% Vial) 5 ml STK-MED ONCE 06/27/20 09:54 06/27/20 09:54 DC Lidocaine HCl (Xylocaine-Mpf 1% 2ml Vial) 2 ml 1X ONCE 06/25/20 15:15 06/25/20 15:16 DC 06/25/20 15:09 2 ML Lidocaine HCl (Xylocaine-Mpf 1% 5ml Vial) 5 ml STK-MED ONCE 06/17/20 09:26 06/17/20 09:26 DC Lisinopril (Prinivil) 5 mg DAILY 06/29/20 09:00 07/03/20 08:52 5 MG Magnesium Sulfate/ Dextrose 100 ml @ 100 mls/hr 1X ONCE 06/17/20 12:00 06/17/20 12:39 DC 06/17/20 12:22 100 MLS/HR Micafungin Sodium 100 mg/Dextrose 100 ml @ 100 mls/hr Q24H 07/03/20 09:00 07/03/20 08:54 100 MLS/HR Midazolam HCl 100 ml @ 0 mls/hr CONT PRN 06/25/20 11:45 06/29/20 11:47 DC 06/28/20 03:00 10 MLS/HR Midazolam HCl (Versed) 5 mg Q1HR PRN 06/17/20 12:45 06/29/20 13:48 5 MG Nitroglycerin (Nitroglycerin) 200 mcg 1X ONCE 06/25/20 15:15 06/25/20 15:16 DC 06/25/20 15:09 200 MCG Ondansetron HCl (Zofran) 4 mg STK-MED ONCE 06/26/20 13:13 06/26/20 13:13 DC Pantoprazole Sodium (PROTONIX VIAL for IV PUSH) 40 mg DAILY 06/18/20 09:00 06/17/20 12:39 DC Piperacillin Sod/ Tazobactam Sod (Zosyn Per Pharmacy) 1 each PRN DAILY PRN 06/17/20 08:45 06/27/20 11:36 DC Piperacillin Sod/ Tazobactam Sod 3.375 gm/Sodium Chloride 50 ml @ 100 mls/hr Q6HRS 06/29/20 10:00 07/04/20 05:43 100 MLS/HR Piperacillin Sod/ Tazobactam Sod 4.5 gm/Sodium Chloride 100 ml @ 200 mls/hr 1X ONCE 06/17/20 12:15 06/17/20 12:44 Cancel Potassium Bicarbonate (Potassium Effervescent Tablet) 40 meq 1X ONCE 06/18/20 09:45 1/4/21 09:48 DC 06/18/20 10:00 40 MEQ Potassium Chloride/Water 100 ml @ 100 mls/hr Q1H 06/25/20 18:00 06/25/20 19:59 DC 06/25/20 18:46 100 MLS/HR Prochlorperazine Edisylate (Compazine) 5 mg PACU PRN PRN 06/27/20 07:00 06/28/20 06:59 DC Propofol 100 ml @ 0 mls/hr CONT PRN 06/29/20 16:30 07/02/20 07:26 21.1 MLS/HR Propofol (Diprivan) 200 mg STK-MED ONCE 06/27/20 09:53 06/27/20 09:54 DC Ringer's Solution 1,000 ml @ 30 mls/hr Q24H 06/27/20 07:00 06/27/20 18:59 DC 06/27/20 08:39 30 MLS/HR Rocuronium [place] (Zemuron) 50 mg STK-MED ONCE 06/26/20 11:37 06/26/20 11:38 DC Sevoflurane (Ultane) 30 ml STK-MED ONCE 06/26/20 13:37 06/26/20 13:38 DC Sodium Chloride 500 ml @ 500 mls/hr 1X PRN PRN 06/21/20 10:45 Vecuronium [place] (Norcuron Bolus) 10 mg 1X ONCE 06/29/20 14:31 06/29/20 17:19 DC 06/29/20 14:31 10 MG Verapamil HCl (Verapamil) 2.5 mg 1X ONCE 06/25/20 15:15 06/25/20 15:16 DC 06/25/20 15:09 2.5 MG Labs: Lab Laboratory Tests Test 07/03/20 08:20 07/04/20 06:23 White Blood Count 8.0 x10^3/uL (4.0-11.0) Red Blood Count 3.64 x10^6/uL (3.50-5.40) Hemoglobin 10.6 g/dL (12.0-15.5) Hematocrit 32.9 % (36.0-47.0) Mean Corpuscular Volume 90 fL (79-100) Mean Corpuscular Hemoglobin 29 pg (25-35) Mean Corpuscular Hemoglobin Concent 32 g/dL (31-37) Red Cell Distribution Width 13.1 % (11.5-14.5) Platelet Count 498 x10^3/uL (140-400) Neutrophils (%) (Auto) 63 % (31-73) Lymphocytes (%) (Auto) 25 % (24-48) Monocytes (%) (Auto) 8 % (0-9) Eosinophils (%) (Auto) 3 % (0-3) Basophils (%) (Auto) 1 % (0-3) Neutrophils # (Auto) 5.0 x10^3/uL (1.8-7.7) Lymphocytes # (Auto) 2.0 x10^3/uL (1.0-4.8) Monocytes # (Auto) 0.6 x10^3/uL (0.0-1.1) Eosinophils # (Auto) 0.2 x10^3/uL (0.0-0.7) Basophils # (Auto) 0.1 x10^3/uL (0.0-0.2) Sodium Level 142 mmol/L (136-145) Potassium Level 4.1 mmol/L (3.5-5.1) Chloride Level 106 mmol/L (98-107) Carbon Dioxide Level 26 mmol/L (21-32) Anion Gap 10 (6-14) Blood Urea Nitrogen 14 mg/dL (7-20) Creatinine 0.6 mg/dL (0.6-1.0) Estimated GFR (Cockcroft-Gault) 103.0 Glucose Level 114 mg/dL (70-99) Calcium Level 9.1 mg/dL (8.5-10.1) Glucose (Fingerstick) 103 mg/dL (70-99) Micro RUN DATE: 07/02/20 [facility] *LIVE* PAGE 1 RUN TIME: 1146 Specimen Inquiry PATIENT: BASILIO WHYTE ACCT: [id number] LOC: 1 WEST ICU U: [id number] AGE/SX: 59/F ROOM: 106 RE06/17/[address]: HUSSEIN GOODWIN III, DO : 1960 BED: 1 DIS: STATUS: ADM IN TLOC: SPEC #: [id number] BORA: 06/30/20 STATUS: RES REQ #: [id number] RECD: 07/01/[address]: HUSSEIN GOODWIN III, DO SOURCE: DRAINAGE ENTR: 07/01/[address]: JEFF FLORES MD SPDESC: WOUND RENAE,POPPY PAUL,MELY MEHTA,NURA GARNER,NIKA BARRAGAN,MARGOTH TRUONG APRN, MD ORDERED: ANAER/AEROB/MAUREEN COMMENTS: DRAINAGE/SECRETION FROM TRACH SITE Procedure Result GRAM STAIN Final Final SQUAMOUS EPI CELL:NONE SEEN PMN (WBCs):NONE SEEN YEAST:MANY Unless otherwise specified, Testing Performed by: [place] [address] For Inquires, the Physician may contact the Microbiology department at [phone] ANAEROBIC-AEROBIC CULTURE Preliminary Preliminary MANY YEAST on 07/02/20 at 0914 FINAL ID= [[email or web address] ALBICANS] FILOMENA ALBICANS Unless otherwise specified, Testing Performed by: [address] [address] For Inquires, the Physician may contact the Microbiology department at [phone] Objective: Assessment: 1. Cardiopulmonary arrest at home. With VT, shock then asystole s/p cardiac cath , normal coronaries Severe NICM Acute systolic CHF: compensated 2. Leukocytosis, likely reactive. resolved 3. Lactic acidosis from #1. 4. Respiratory failure. suspected aspiration; status post trach placement, swab culture from trach site with Filomena albicans 5. Anoxic Encephalopathy 6. Hypertension. 7. Pneumothorax.s/p CTS, 8. Rib fracture and sternal fracture. 9. Anemia 10. S/P Peg tube placement 11. Marijuana use: + UDS Plan: Plan of Care Continue Zosyn/Zyvox Micafungin for now cont supportive care Monitor labs and cultures Overall prognosis poor Discussed with at bedside D/W SAÚL MAYES MD Jul 04, 2020 08:08
--- NOTE | 2020-07-04 08:09 | RAD ---
XR CHEST 1V 07/04/2020 4:35 AM INDICATION: Daily exam, ventilated COMPARISON: 06/29/2020 TECHNIQUE: Portable frontal view of the chest is provided. FINDINGS: The cardiomediastinal silhouette is similar in appearance. Right IJ central venous catheter and trach eostomy tube are in similar position. Stable small left pleural effusion with adjacent compressive atelectasis versus infiltrate. No pneumo thorax or no significant pulmonary vascular congestion. No suspicious osseous abnormality. IMPRESSION: Aeration of the lungs appears similar to the prior examination. Support lines and tubes are in simila r position. Electronically signed by: Nomra Alvarez MD (07/04/2020 8:07 AM) [id number]
[2020-07-04 08:14] LABS: CALCIUM 9.1 mg/dL (8.5-10.1); CREATININE 0.6 mg/dL (0.6-1.0); MAGNESIUM 2.2 mg/dL (1.8-2.4); POTASSIUM 3.8 mmol/L (3.5-5.1)
[2020-07-04] MEDS: IPRATRPIUM/ALBUTEROL 0.5/2.5MG 3 ML NEBU. NEB SCH ×4 (08:15→20:00)
[2020-07-04] MEDS ORDERED: HALOPERIDOL LACTATE 5 MG/ML VIAL. IVP PRN (08:15)
[2020-07-04 08:21] LABS: BASE EXCESS ABG -2 mmol/L (-3-3); HCO3 ABG 21 mmol/L (21-28); PCO2 ABG 33 mmHg (35-46); PO2 ABG 108 mmHg (75-108); SAT O2 ABG 98 % (92-99)
[2020-07-04] MEDS: ASPIRIN CHEWABLE 81 MG TABLET. PO SCH (09:22)
[2020-07-04] MEDS: CARVEDILOL 3.125 MG TABLET. PO SCH ×2 (09:22→18:26)
[2020-07-04] MEDS: AMIODARONE HCL 200 MG TABLET. PO SCH (09:23)
[2020-07-04] MEDS: LISINOPRIL 5 MG TABLET. PO SCH (09:23)
[2020-07-04] MEDS: MICAFUNGIN 100 MG in IV DEXTROSE 5% 100ML 100 ML IV SCH (09:24)
[2020-07-04] MEDS: DAPTOmycin (GENERIC) IVPB 400 MG in IV NORMAL SALINE 50ML 50 ML IV SCH (09:25)
--- NOTE | 2020-07-04 09:34 | PDOC ---
PROGRESS NOTES Date of Service DATE: 07/04/20 TIME: 09:32 Assessment Problems Medical Problems: (1) Cardiac arrest Status: Acute (2) Fracture of ribs, multiple Status: Acute (3) Hyperglycemia Status: Acute (4) Pneumonia Status: Acute (5) Pneumothorax, right Status: Acute (6) Sternal fracture Status: Acute (7) VF (ventricular fibrillation) Status: Acute Anoxic encephalopathy, ventricular fibrillation and asystole, improving, but not making much more progress Negative for Covid Status-post trach and PEG Trialed off vent 06/28 Plan I think she is a little oversedated on the scheduled Haldol, I will switch to as needed Supportive care Holding on additional neurological tests Family wants to try 1 [facility] Discussed with Subjective None Objective Vital Signs Date Time Temp Pulse Resp B/P (MAP) Pulse Ox O2 Delivery O2 Flow Rate FiO2 07/04/20 09:25 95 20 159/77 (104) 96 Ventilator 07/04/20 07:24 98.5 98.5 07/03/20 16:00 8.0 Intake and Output 07/04/20 07:00 Intake Total 3095 ml Output Total 2345 ml Balance 750 ml IV Total 300 ml Tube Feeding 1894 ml Other 901 ml Output Urine Total 1945 ml Stool Total 400 ml Gastric Drainage Total 0 ml PHYSICAL EXAM On ventilator PERRL. EOMI. CN: no focal findings. Muscle tone: normal. Muscle strength: Moving arms and legs,not thrusting tongue DTR: 1+ Plantar reflex: Flexor Gait: not examined. Sensory exam: Not cooperative Cerebellar: Not cooperative Review of Relevant I have reviewed the following items afua (where applicable) has been applied. Labs Laboratory Tests Test 07/03/20 08:00 07/03/20 08:20 07/04/20 06:23 07/04/20 07:20 O2 Saturation 98 % (92-99) Arterial Blood pH 7.48 (7.35-7.45) Arterial Blood pCO2 at Patient Temp 36 mmHg (35-46) Arterial Blood pO2 at Patient Temp 107 mmHg (75-108) Arterial Blood HCO3 26 mmol/L (21-28) Arterial Blood Base Excess 2 mmol/L (-3-3) FiO2 40/vent White Blood Count 8.0 x10^3/uL (4.0-11.0) Red Blood Count 3.64 x10^6/uL (3.50-5.40) Hemoglobin 10.6 g/dL (12.0-15.5) Hematocrit 32.9 % (36.0-47.0) Mean Corpuscular Volume 90 fL (79-100) Mean Corpuscular Hemoglobin 29 pg (25-35) Mean Corpuscular Hemoglobin Concent 32 g/dL (31-37) Red Cell Distribution Width 13.1 % (11.5-14.5) Platelet Count 498 x10^3/uL (140-400) Neutrophils (%) (Auto) 63 % (31-73) Lymphocytes (%) (Auto) 25 % (24-48) Monocytes (%) (Auto) 8 % (0-9) Eosinophils (%) (Auto) 3 % (0-3) Basophils (%) (Auto) 1 % (0-3) Neutrophils # (Auto) 5.0 x10^3/uL (1.8-7.7) Lymphocytes # (Auto) 2.0 x10^3/uL (1.0-4.8) Monocytes # (Auto) 0.6 x10^3/uL (0.0-1.1) Eosinophils # (Auto) 0.2 x10^3/uL (0.0-0.7) Basophils # (Auto) 0.1 x10^3/uL (0.0-0.2) Sodium Level 142 mmol/L (136-145) 138 mmol/L (136-145) Potassium Level 4.1 mmol/L (3.5-5.1) 3.8 mmol/L (3.5-5.1) Chloride Level 106 mmol/L (98-107) 102 mmol/L (98-107) Carbon Dioxide Level 26 mmol/L (21-32) 28 mmol/L (21-32) Anion Gap 10 (6-14) 8 (6-14) Blood Urea Nitrogen 14 mg/dL (7-20) 14 mg/dL (7-20) Creatinine 0.6 mg/dL (0.6-1.0) 0.6 mg/dL (0.6-1.0) Estimated GFR (Cockcroft-Gault) 103.0 103.0 Glucose Level 114 mg/dL (70-99) 122 mg/dL (70-99) Calcium Level 9.1 mg/dL (8.5-10.1) 9.1 mg/dL (8.5-10.1) Glucose (Fingerstick) 103 mg/dL (70-99) Magnesium Level 2.2 mg/dL (1.8-2.4) Laboratory Tests Test 07/04/20 06:23 07/04/20 07:20 Glucose (Fingerstick) 103 mg/dL (70-99) Sodium Level 138 mmol/L (136-145) Potassium Level 3.8 mmol/L (3.5-5.1) Chloride Level 102 mmol/L (98-107) Carbon Dioxide Level 28 mmol/L (21-32) Anion Gap 8 (6-14) Blood Urea Nitrogen 14 mg/dL (7-20) Creatinine 0.6 mg/dL (0.6-1.0) Estimated GFR (Cockcroft-Gault) 103.0 Glucose Level 122 mg/dL (70-99) Calcium Level 9.1 mg/dL (8.5-10.1) Magnesium Level 2.2 mg/dL (1.8-2.4) Microbiology 06/30/20 Gram Stain - Final, Resulted 06/30/20 Aerobic and Anaerobic Culture - Preliminary, Resulted 06/17/20 Blood Culture - Final, Complete NO GROWTH AFTER 5 DAYS Medications Current Medications Amiodarone HCl 150 mg/Dextrose 103 ml @ 618 mls/hr 1X ONCE IV Last administered on 06/17/20at 07:00; Start 06/17/20 at 07:00; Stop 06/17/20 at 07:09; Status DC Amiodarone HCl 450 mg/Dextrose 259 ml @ 33 mls/hr 1X ONCE IV ; Start 06/17/20 at 07:00; Stop 06/17/20 at 14:50; Status DC Sodium Chloride 1,000 ml @ 1,000 mls/hr 1X ONCE IV Last administered on 06/17/20at 08:11; Start 06/17/20 at 07:15; Stop 06/17/20 at 08:14; Status DC Midazolam HCl 100 ml @ 0 mls/hr 1X ONCE IV ; Start 06/17/20 at 07:15; Stop 06/17/20 at 07:16; Status DC Midazolam HCl (Versed) 5 mg STK-MED ONCE .ROUTE ; Start 06/17/20 at 07:17; Stop 06/17/20 at 07:17; Status DC Iohexol (Omnipaque 300 Mg/ml) 75 ml 1X ONCE IV Last administered on 06/17/20at 08:17; Start 06/17/20 at 08:15; Stop 06/17/20 at 08:16; Status DC Iohexol (Omnipaque 350 Mg/ml) 100 ml 1X ONCE IV Last administered on 06/17/20at 08:17; Start 06/17/20 at 08:15; Stop 06/17/20 at 08:16; Status DC Info (CONTRAST GIVEN -- Rx MONITORING) 1 each PRN DAILY PRN MC SEE COMMENTS; Start 06/17/20 at 08:15; Stop 06/19/20 at 08:14; Status DC Sodium Chloride 1,000 ml @ 1,000 mls/hr 1X ONCE IV Last administered on 06/17/20at 08:25; Start 06/17/20 at 08:15; Stop 06/17/20 at 09:14; Status DC Potassium Chloride/Water 100 ml @ 50 mls/hr 1X ONCE IV Last administered on 06/17/20at 10:16; Start 06/17/20 at 09:00; Stop 06/17/20 at 10:59; Status DC Piperacillin Sod/ Tazobactam Sod (Zosyn Per Pharmacy) 1 each PRN DAILY PRN MC SEE COMMENTS; Start 06/17/20 at 08:45; Stop 06/27/20 at 11:36; Status DC Piperacillin Sod/ Tazobactam Sod 4.5 gm/Sodium Chloride 100 ml @ 200 mls/hr 1X ONCE IV Last administered on 06/17/20at 10:15; Start 06/17/20 at 08:45; Stop 06/17/20 at 09:14; Status DC Sodium Chloride 1,000 ml @ 125 mls/hr Q8H IV Last administered on 06/17/20at 23:39; Start 06/17/20 at 09:00; Stop 06/18/20 at 08:59; Status DC Propofol (Diprivan) 200 mg 1X ONCE IV Last administered on 06/17/20at 09:00; Start 06/17/20 at 09:00; Stop 06/17/20 at 09:01; Status DC Propofol 100 ml @ As Directed STK-MED ONCE IV ; Start 06/17/20 at 09:05; Stop 06/17/20 at 09:05; Status DC Lidocaine HCl (Lidocaine 1% 20ml Vial) 20 ml 1X ONCE INJ Last administered on 06/17/20at 09:15; Start 06/17/20 at 09:15; Stop 06/17/20 at 09:20; Status DC Lidocaine HCl (Xylocaine-Mpf 1% 5ml Vial) 5 ml STK-MED ONCE .ROUTE ; Start 06/17/20 at 09:26; Stop 06/17/20 at 09:26; Status DC Sodium Chloride 1,000 ml @ 1,000 mls/hr 1X ONCE IV Last administered on 06/17/20at 10:15; Start 06/17/20 at 10:15; Stop 06/17/20 at 11:14; Status DC Propofol 100 ml @ 3.819 mls/ hr CONT PRN IV PER PROTOCOL Last administered on 06/25/20at 06:12; Start 06/17/20 at 10:45; Stop 06/29/20 at 11:47; Status DC Fentanyl Citrate (Fentanyl 2ml Vial) 100 mcg 1X ONCE IV ; Start 06/17/20 at 12:00; Stop 06/17/20 at 12:39; Status DC Midazolam HCl (Versed) 2 mg 1X ONCE IV ; Start 06/17/20 at 12:00; Stop 06/17/20 at 12:39; Status DC Magnesium Sulfate/ Dextrose 100 ml @ 100 mls/hr 1X ONCE IV Last administered on 06/17/20at 12:22; Start 06/17/20 at 12:00; Stop 06/17/20 at 12:39; Status DC Buspirone HCl (Buspar) 30 mg Q8H NG Last administered on 06/17/20at 12:31; Start 06/17/20 at 12:00; Stop 06/17/20 at 12:39; Status DC Glycerin/ Hypromellose/ Polyethylene (Artificial Tears) 1 drop Q6HRS OU ; Start 06/17/20 at 12:00; Stop 06/17/20 at 12:39; Status DC Glycerin/ Hypromellose/ Polyethylene (Artificial Tears) 1 drop PRN Q15MIN PRN OU DRY EYE; Start 06/17/20 at 12:00; Stop 06/17/20 at 12:39; Status DC Heparin Sodium (Porcine) (Heparin Sodium) 5,000 unit BID SQ ; Start 06/17/20 at 21:00; Stop 06/17/20 at 12:39; Status DC Pantoprazole Sodium (PROTONIX VIAL for IV PUSH) 40 mg DAILY IVP ; Start 06/18/20 at 09:00; Stop 06/17/20 at 12:39; Status DC Fentanyl Citrate 30 ml @ 0 mls/hr CONT PRN IV PER PROTOCOL.; Start 06/17/20 at 12:00; Stop 06/17/20 at 12:39; Status DC Propofol 100 ml @ 0 mls/hr CONT PRN IV PER PROTOCOL.; Start 06/17/20 at 12:00; Stop 06/17/20 at 12:39; Status DC Midazolam HCl 100 ml @ 0 mls/hr CONT PRN IV PER PROTOCOL; Start 06/17/20 at 12:00; Stop 06/17/20 at 12:39; Status DC Vecuronium [place] (Norcuron Bolus) 10 mg PRN Q1HR PRN IV SHIVERING; Start 06/17/20 at 12:00; Stop 06/17/20 at 12:39; Status DC Piperacillin Sod/ Tazobactam Sod 4.5 gm/Sodium Chloride 100 ml @ 200 mls/hr 1X ONCE IV ; Start 06/17/20 at 12:15; Stop 06/17/20 at 12:44; Status Cancel Midazolam HCl (Versed) 5 mg Q1HR PRN IV SEDATION Last administered on 06/29/20at 13:48; Start 06/17/20 at 12:45 Fentanyl Citrate (Fentanyl 2ml Vial) 100 mcg Q1HR IVP Last administered on 06/17/20at 18:55; Start 06/17/20 at 13:00; Stop 06/17/20 at 23:41; Status DC Piperacillin Sod/ Tazobactam Sod 3.375 gm/Sodium Chloride 50 ml @ 100 mls/hr Q6H IV Last administered on 06/27/20at 05:31; Start 06/17/20 at 16:00; Stop 06/27/20 at 11:30; Status DC Potassium Bicarbonate (Potassium Effervescent Tablet) 40 meq 1X ONCE NG Last administered on 06/18/20at 10:00; Start 06/18/20 at 09:45; Stop 06/18/20 at 09:48; Status DC Albuterol/ Ipratropium (Duoneb) 3 ml RTQID NEB Last administered on 07/03/20at 20:21; Start 06/18/20 at 20:00 Famotidine (Pepcid Vial) 20 mg BID IVP Last administered on 07/02/20at 08:05; Start 06/18/20 at 21:00; Stop 07/02/20 at 10:23; Status DC Enoxaparin Sodium (Lovenox 40mg Syringe) 40 mg Q24H SQ Last administered on 07/03/20at 21:36; Start 06/18/20 at 21:00 Levothyroxine Sodium (Synthroid) 75 mcg DAILY06 PO Last administered on 07/04/20at 05:43; Start 06/18/20 at 21:00 Fentanyl Citrate 30 ml @ 0 mls/hr CONT PRN IV SEE PROTOCOL Last administered on 06/28/20at 04:56; Start 06/18/20 at 20:15; Stop 06/29/20 at 11:47; Status DC Carvedilol (Coreg) 3.125 mg BIDWMEALS PO Last administered on 07/04/20at 09:22; Start 06/19/20 at 17:00 Atorvastatin Calcium (Lipitor) 20 mg QHS PO Last administered on 07/03/20at 21:36; Start 06/19/20 at 21:00 Aspirin (Aspirin Chewable) 81 mg DAILYWBKFT PO Last administered on 07/04/20at 09:22; Start 06/20/20 at 08:00 Aspirin (Aspirin Chewable) 81 mg 1X ONCE PO Last administered on 06/19/20at 15:57; Start 06/19/20 at 15:30; Stop 06/19/20 at 15:37; Status DC Potassium Chloride/Water 100 ml @ 100 mls/hr 1X ONCE IV Last administered on 06/19/20at 15:57; Start 06/19/20 at 15:30; Stop 06/19/20 at 16:29; Status DC Amiodarone HCl (Cordarone) 400 mg DAILY PO Last administered on 07/04/20at 09:23; Start 06/20/20 at 09:00 Furosemide (Lasix) 40 mg 1X ONCE IVP Last administered on 06/20/20at 14:38; Start 06/20/20 at 13:30; Stop 06/20/20 at 13:31; Status DC Potassium Chloride/Water 100 ml @ 100 mls/hr 1X ONCE IV Last administered on 06/20/20at 14:39; Start 06/20/20 at 13:30; Stop 06/20/20 at 14:29; Status DC Dexmedetomidine HCl 400 mcg/ Sodium Chloride 100 ml @ 0 mls/hr CONT PRN IV PER PROTOCOL Last administered on 06/29/20at 06:11; Start 06/21/20 at 10:45; Stop 06/29/20 at 11:47; Status DC Sodium Chloride 500 ml @ 500 mls/hr 1X PRN PRN IV SEE COMMENTS; Start 06/21/20 at 10:45 Atropine Sulfate (ATROPINE 0.5mg SYRINGE) 0.5 mg PRN Q5MIN PRN IV SEE COMMENTS; Start 06/21/20 at 10:45; Stop 06/29/20 at 11:47; Status DC Fentanyl Citrate (Fentanyl 2ml Vial) 50 mcg PRN Q2HR PRN IVP PAIN Last administered on 07/03/20at 04:14; Start 06/23/20 at 16:45 Midazolam HCl 100 ml @ 0 mls/hr CONT PRN IV SEE PROTOCOL Last administered on 06/28/20at 03:00; Start 06/25/20 at 11:45; Stop 06/29/20 at 11:47; Status DC Lidocaine HCl (Xylocaine-Mpf 1% 2ml Vial) 2 ml STK-MED ONCE .ROUTE ; Start 06/25/20 at 14:21; Stop 06/25/20 at 14:21; Status DC Iohexol (Omnipaque 300 Mg/ml) 100 ml STK-MED ONCE .ROUTE ; Start 06/25/20 at 14:21; Stop 06/25/20 at 14:21; Status DC Heparin Sodium/ Sodium Chloride 1,000 ml @ As Directed STK-MED ONCE .ROUTE ; Start 06/25/20 at 14:21; Stop 06/25/20 at 14:21; Status DC Heparin Sodium (Porcine) (Heparin Sodium) 10,000 unit STK-MED ONCE .ROUTE ; Start 06/25/20 at 14:31; Stop 06/25/20 at 14:31; Status DC Verapamil HCl (Verapamil) 5 mg STK-MED ONCE .ROUTE ; Start 06/25/20 at 14:31; Stop 06/25/20 at 14:31; Status DC Nitroglycerin (Nitroglycerin) 200 mcg STK-MED ONCE .ROUTE ; Start 06/25/20 at 14:31; Stop 06/25/20 at 14:31; Status DC Nitroglycerin (Nitroglycerin) 200 mcg 1X ONCE IART Last administered on 06/25/20at 15:09; Start 06/25/20 at 15:15; Stop 06/25/20 at 15:16; Status DC Verapamil HCl (Verapamil) 2.5 mg 1X ONCE IART Last administered on 06/25/20at 15:09; Start 06/25/20 at 15:15; Stop 06/25/20 at 15:16; Status DC Heparin Sodium (Porcine) (Heparin Sodium) 2,500 unit 1X ONCE IART Last administered on 06/25/20at 15:09; Start 06/25/20 at 15:15; Stop 06/25/20 at 15:16; Status DC Heparin Sodium/ Sodium Chloride (HEPARIN for ARTERIAL LINE FLUSH) 1,000 unit 1X ONCE IART Last administered on 06/25/20at 15:09; Start 06/25/20 at 15:15; Stop 06/25/20 at 15:16; Status DC Iohexol (Omnipaque 300 Mg/ml) 30 ml 1X ONCE IART Last administered on 06/25/20at 15:09; Start 06/25/20 at 15:15; Stop 06/25/20 at 15:16; Status DC Lidocaine HCl (Xylocaine-Mpf 1% 2ml Vial) 2 ml 1X ONCE INJ Last administered on 06/25/20at 15:09; Start 06/25/20 at 15:15; Stop 06/25/20 at 15:16; Status DC Amino Acids/ Glycerin/ Electrolytes 1,000 ml @ 80 mls/hr [id number] IV Last administered on 06/27/20at 20:50; Start 06/25/20 at 17:30; Stop 06/28/20 at 11:35; Status DC Potassium Chloride/Water 100 ml @ 100 mls/hr Q1H IV Last administered on 06/25/20at 18:46; Start 06/25/20 at 18:00; Stop 06/25/20 at 19:59; Status DC Rocuronium [place] (Zemuron) 50 mg STK-MED ONCE .ROUTE ; Start 06/26/20 at 11:37 ; Stop 06/26/20 at 11:38; Status DC Cellulose (Surgicel Fibrillar 1x2) 1 each STK-MED ONCE .ROUTE Last administered on 06/26/20at 13:20; Start 06/26/20 at 12:19; Stop 06/26/20 at 12:19; Status DC Bupivacaine HCl (Sensorcaine Mpf 0.5%) 30 ml STK-MED ONCE .ROUTE ; Start 06/26/20 at 12:19; Stop 06/26/20 at 12:19; Status DC Ondansetron HCl (Zofran) 4 mg STK-MED ONCE .ROUTE ; Start 06/26/20 at 13:13; Stop 06/26/20 at 13:13; Status DC Dexamethasone Sodium Phosphate (Decadron) 4 mg STK-MED ONCE .ROUTE ; Start 06/26/20 at 13:13; Stop 06/26/20 at 13:14; Status DC Cellulose (Surgicel Fibrillar 1x2) 1 each STK-MED ONCE .ROUTE Last administered on 06/26/20at 13:22; Start 06/26/20 at 13:25; Stop 06/26/20 at 13:25; Status DC Sevoflurane (Ultane) 30 ml STK-MED ONCE IH ; Start 06/26/20 at 13:37; Stop 06/26/20 at 13:38; Status DC Propofol (Diprivan) 200 mg STK-MED ONCE IV ; Start 06/26/20 at 13:38; Stop 06/26/20 at 13:38; Status DC Ringer's Solution 1,000 ml @ 30 mls/hr Q24H IV Last administered on 06/27/20at 08:39; Start 06/27/20 at 07:00; Stop 06/27/20 at 18:59; Status DC Prochlorperazine Edisylate (Compazine) 5 mg PACU PRN PRN IV NAUSEA, MRX1; Start 06/27/20 at 07:00; Stop 06/28/20 at 06:59; Status DC Propofol (Diprivan) 200 mg STK-MED ONCE IV ; Start 06/27/20 at 09:53; Stop 06/27/20 at 09:54; Status DC Lidocaine HCl (Lidocaine Pf 2% Vial) 5 ml STK-MED ONCE .ROUTE ; Start 06/27/20 at 09:54; Stop 06/27/20 at 09:54; Status DC Lisinopril (Prinivil) 5 mg DAILY PO Last administered on 07/04/20at 09:23; Start 06/29/20 at 09:00 Acetaminophen/ Hydrocodone Bitart (Lortab 7.5-325/ 15ml Oral Solution) 10 ml 1X ONCE PEG Last administered on 06/28/20at 12:37; Start 06/28/20 at 12:30; Stop 06/28/20 at 12:31; Status DC Piperacillin Sod/ Tazobactam Sod 3.375 gm/Sodium Chloride 50 ml @ 100 mls/hr Q6HRS IV Last administered on 07/04/20at 05:43; Start 06/29/20 at 10:00 Vecuronium [place] (Norcuron Bolus) 10 mg STK-MED ONCE IV ; Start 06/29/20 at 14:31; Stop 06/29/20 at 14:31; Status DC Propofol 100 ml @ 0 mls/hr CONT PRN IV PER PROTOCOL Last administered on 07/02/20at 07:26; Start 06/29/20 at 16:30 Vecuronium [place] (Norcuron Bolus) 10 mg 1X ONCE IV Last administered on 06/29/20at 14:31; Start 06/29/20 at 14:31; Stop 06/29/20 at 17:19; Status DC Daptomycin 400 mg/ Sodium Chloride 50 ml @ 100 mls/hr Q24H IV Last administered on 07/04/20at 09:25; Start 06/30/20 at 10:00 Famotidine (Pepcid) 20 mg QHS GT Last administered on 07/03/20at 08:52; Start 07/02/20 at 21:00 Haloperidol Lactate (Haldol Inj) 5 mg Q8HRS IVP Last administered on 07/03/20at 06:00; Start 07/02/20 at 14:00; Stop 07/03/20 at 12:40; Status DC Micafungin Sodium 100 mg/Dextrose 100 ml @ 100 mls/hr Q24H IV Last administered on 07/04/20at 09:24; Start 07/03/20 at 09:00 Alteplase, Recombinant (Cathflo For Central Catheter Clearance) 1 mg 1X ONCE INT CAT Last administered on 07/03/20at 08:45; Start 07/03/20 at 08:45; Stop 07/03/20 at 08:46; Status DC Haloperidol Lactate (Haldol Inj) 2.5 mg PRN Q6HRS PRN IVP AGITATION; Start 07/03/20 at 12:30; Stop 07/03/20 at 12:40; Status DC Haloperidol Lactate (Haldol Inj) 2.5 mg PRN Q6HRS PRN IVP AGITATION Last administered on 07/04/20at 01:04; Start 07/03/20 at 14:00; Stop 07/04/20 at 08:04; Status DC Haloperidol Lactate (Haldol Inj) 2.5 mg Q8HRS IVP ; Start 07/04/20 at 10:00; Stop 07/04/20 at 08:15; Status DC Haloperidol Lactate (Haldol Inj) 2.5 mg PRN Q8HRS PRN IVP AGITATION; Start 07/04/20 at 08:15 Active Scripts Active Reported Acetaminophen-Diphenhyd 500-25 (Acetaminophen/Diphenhydramine) 1 Each Tablet 1 Each PO HS PRN Naproxen 500 Mg Tablet 1 Tab PO BID PRN 30 Days Tramadol Hcl 50 Mg Tablet 50 Mg PO Q4HRS Levothyroxine Sodium 75 Mcg Tablet 1 Tab PO DAILY Adderall 20 Mg Tablet (Dextroamphetamine/Amphetamine) 20 Mg Tablet 1 Tab PO DAILY MDD 1 Tablet(s) 5 Days Prozac (Fluoxetine Hcl) 20 Mg Capsule 1 Cap PO DAILYWBKFT Vitals/I & O Vital Sign - Last 24 Hours 07/03/20 07/03/20 07/03/20 07/03/20 09:54 11:12 11:30 11:38 Temp 98.6 98.6 Pulse 72 68 Resp 24 20 B/P (MAP) 153/72 (99) 96/49 (65) Pulse Ox 97 96 97 O2 Delivery Ventilator Ventilator Ventilator Tracheal Collar O2 Flow Rate 8.0 07/03/20 07/03/20 07/03/20 07/03/20 11:53 12:00 13:01 14:13 Pulse 62 81 76 Resp 24 24 16 B/P (MAP) 123/70 (87) 123/54 (77) 152/79 (103) Pulse Ox 96 95 98 O2 Delivery Mechanical Ventilator Ventilator trach shield trach shield 07/03/20 07/03/20 07/03/20 07/03/20 15:08 16:00 16:15 17:04 Temp 98.4 98.4 Pulse 79 61 71 Resp 16 16 16 B/P (MAP) 151/82 (105) 144/74 (97) 132/71 (91) Pulse Ox 97 97 100 99 O2 Delivery trach shield Tracheal Collar trach shield trach shield O2 Flow Rate 8.0 07/03/20 07/03/20 07/03/20 07/03/20 17:19 17:45 19:00 20:00 Pulse 71 75 80 Resp 16 18 B/P (MAP) 132/71 135/73 (93) 153/82 (105) Pulse Ox 93 94 O2 Delivery trach shield Tracheal Collar Mechanical Ventilator 07/03/20 07/03/20 07/03/20 07/03/20 20:00 20:22 21:00 22:00 Temp 98.6 98.6 Pulse 84 80 72 Resp 18 16 16 B/P (MAP) 145/76 (99) 160/79 (106) 127/67 (87) Pulse Ox 97 97 98 98 O2 Delivery Ventilator Ventilator Ventilator Ventilator 07/03/20 07/03/20 07/03/20 07/03/20 23:00 23:56 23:59 23:59 Temp 97.1 97.1 Pulse 79 80 Resp 16 20 B/P (MAP) 121/73 (89) 152/76 (101) Pulse Ox 99 98 97 O2 Delivery Ventilator Ventilator Mechanical Ventilator Ventilator 07/04/20 07/04/20 07/04/20 07/04/20 01:00 02:00 03:00 04:00 Temp 98.9 98.9 Pulse 95 85 89 90 Resp 20 24 20 20 B/P (MAP) 167/85 (112) 160/77 (104) 150/70 (96) 150/69 (96) Pulse Ox 97 97 97 98 O2 Delivery Ventilator Ventilator Ventilator Ventilator 1/2007/04/20 07/04/20 07/04/20 04:00 04:20 05:00 06:00 Pulse 82 83 Resp 20 20 B/P (MAP) 140/86 (104) 151/76 (101) Pulse Ox 98 98 98 O2 Delivery Mechanical Ventilator Ventilator Ventilator Ventilator 07/04/20 07/04/20 07/04/20 07/04/20 07:24 08:04 08:09 08:18 Temp 98.5 98.5 Pulse 86 81 Resp 22 20 B/P (MAP) 157/84 (108) 159/80 (106) Pulse Ox 98 97 99 O2 Delivery Ventilator Mechanical Ventilator Ventilator Ventilator 07/04/20 07/04/20 07/04/20 07/04/20 09:22 09:23 09:23 09:25 Pulse 81 81 81 95 Resp 20 B/P (MAP) 159/80 159/80 159/80 159/77 (104) Pulse Ox 96 O2 Delivery Ventilator Intake and Output 07/03/20 07/03/20 07/04/20 15:00 23:00 07:00 Intake Total 450 ml 1248 ml 1397 ml Output Total 325 ml 1340 ml 680 ml Balance 125 ml -92 ml 717 ml Justicifation of Admission Dx: Justifications for Admission: Justification of Admission Dx: N/A JEFF FLORES MD Jul 04, 2020 09:34
--- NOTE | 2020-07-04 09:35 | PDOC ---
PULMONARY PROGRESS NOTES DATE: 07/04/20 TIME: 09:33 Subjective S/P cardiac arrest 06/17 Had TS all day 07/03 S/P trach on 06/26 S/P peg 06/27 Not much clinical change Vitals Vital Signs Date Time Temp Pulse Resp B/P (MAP) Pulse Ox O2 Delivery O2 Flow Rate FiO2 07/04/20 09:25 95 20 159/77 (104) 96 Ventilator 07/04/20 07:24 98.5 98.5 07/03/20 16:00 8.0 HEENT: Other (nc at perrl nose clear ) Lungs: Clear Cardiovascular: S1, S2 Abdomen: Soft, Non-tender Extremities: No Edema Skin: Warm Labs Laboratory Tests Test 07/03/20 08:00 07/03/20 08:20 07/04/20 06:23 07/04/20 07:20 O2 Saturation 98 % (92-99) Arterial Blood pH 7.48 (7.35-7.45) Arterial Blood pCO2 at Patient Temp 36 mmHg (35-46) Arterial Blood pO2 at Patient Temp 107 mmHg (75-108) Arterial Blood HCO3 26 mmol/L (21-28) Arterial Blood Base Excess 2 mmol/L (-3-3) FiO2 40/vent White Blood Count 8.0 x10^3/uL (4.0-11.0) Red Blood Count 3.64 x10^6/uL (3.50-5.40) Hemoglobin 10.6 g/dL (12.0-15.5) Hematocrit 32.9 % (36.0-47.0) Mean Corpuscular Volume 90 fL (79-100) Mean Corpuscular Hemoglobin 29 pg (25-35) Mean Corpuscular Hemoglobin Concent 32 g/dL (31-37) Red Cell Distribution Width 13.1 % (11.5-14.5) Platelet Count 498 x10^3/uL (140-400) Neutrophils (%) (Auto) 63 % (31-73) Lymphocytes (%) (Auto) 25 % (24-48) Monocytes (%) (Auto) 8 % (0-9) Eosinophils (%) (Auto) 3 % (0-3) Basophils (%) (Auto) 1 % (0-3) Neutrophils # (Auto) 5.0 x10^3/uL (1.8-7.7) Lymphocytes # (Auto) 2.0 x10^3/uL (1.0-4.8) Monocytes # (Auto) 0.6 x10^3/uL (0.0-1.1) Eosinophils # (Auto) 0.2 x10^3/uL (0.0-0.7) Basophils # (Auto) 0.1 x10^3/uL (0.0-0.2) Sodium Level 142 mmol/L (136-145) 138 mmol/L (136-145) Potassium Level 4.1 mmol/L (3.5-5.1) 3.8 mmol/L (3.5-5.1) Chloride Level 106 mmol/L (98-107) 102 mmol/L (98-107) Carbon Dioxide Level 26 mmol/L (21-32) 28 mmol/L (21-32) Anion Gap 10 (6-14) 8 (6-14) Blood Urea Nitrogen 14 mg/dL (7-20) 14 mg/dL (7-20) Creatinine 0.6 mg/dL (0.6-1.0) 0.6 mg/dL (0.6-1.0) Estimated GFR (Cockcroft-Gault) 103.0 103.0 Glucose Level 114 mg/dL (70-99) 122 mg/dL (70-99) Calcium Level 9.1 mg/dL (8.5-10.1) 9.1 mg/dL (8.5-10.1) Glucose (Fingerstick) 103 mg/dL (70-99) Magnesium Level 2.2 mg/dL (1.8-2.4) Laboratory Tests Test 07/04/20 06:23 07/04/20 07:20 Glucose (Fingerstick) 103 mg/dL (70-99) Sodium Level 138 mmol/L (136-145) Potassium Level 3.8 mmol/L (3.5-5.1) Chloride Level 102 mmol/L (98-107) Carbon Dioxide Level 28 mmol/L (21-32) Anion Gap 8 (6-14) Blood Urea Nitrogen 14 mg/dL (7-20) Creatinine 0.6 mg/dL (0.6-1.0) Estimated GFR (Cockcroft-Gault) 103.0 Glucose Level 122 mg/dL (70-99) Calcium Level 9.1 mg/dL (8.5-10.1) Magnesium Level 2.2 mg/dL (1.8-2.4) Medications Active Scripts Medications Dose Route/Sig Max Daily Dose Days Date Category Acetaminophen-Diphenhyd 500-25 (Acetaminophen/Diphenhydramine) 1 Each Tablet 1 Each PO HS PRN 06/18/20 Reported Naproxen 500 Mg Tablet 1 Tab PO BID PRN 30 06/18/20 Reported Tramadol Hcl 50 Mg Tablet 50 Mg PO Q4HRS 06/18/20 Reported Levothyroxine Sodium 75 Mcg Tablet 1 Tab PO DAILY 06/18/20 Reported Adderall 20 Mg Tablet (Dextroamphetamine/Amphetamine) 20 Mg Tablet 1 Tab PO DAILY MDD 1 Tablet(s) 5 06/18/20 Reported Prozac (Fluoxetine Hcl) 20 Mg Capsule 1 Cap PO [id number] 06/18/20 Reported Comments CXR IMPRESSION: Left lung base opacities likely consolidative process such as pneumonia. Small left pleural effusion. Impression . IMPRESSION: 1. Acute respiratory failure secondary to [id number] cardiopulmonary arrest/ anoxic encephalopathy-- now S/P trach 2. Aiq-mt-ccgipcbi ventricular fibrillation and asystole leading to anoxic brain injury. 3. Anoxic encephalopathy. 4. COVID neg 5. Morbid obesity. 6. Leukocytosis--improved 7. Lactic acidosis secondary to [id number] cardiac arrest. 8. Abnormal x-ray revealing bibasilar atelectasis, infiltrates. 9. Pneumothorax secondary to CPR.resolved 10. Sternal sternal fracture secondary to CPR. 11. ? Pneumonia positive, gram-negative, gram-positive. Plan . PLAN: T-S trial during day. Continue pressure support at night, TS 24 hrs if tolerates Clinically consistent with Anoxic encephalopathy Trach 06/26/20, PEG on 06/27/20 Follow CXR/ABG-- reviewed Follow infectious disease recommendations in regards to antibiotics, currently on daptomycin and Zosyn, follow cultures no growth to date Follow neurology recs--no new recommendations Follow Cardiology recs-- post cardiac cath 06/25/20-- cath was clean w/ normal filling pressures Continue tube feeding for nutritional support DVT/GI PPX D/W RN and RT Social work for D/C planning --[facility] declined, family would like to give the patient a full 30 days to assess level of recovery before potentially withdrawing care. The patient would not have wanted to live on life support or with a feeding tube for prolonged period of time per family. PT. is FULL CODE ANGELA MORENO MD Jul 04, 2020 09:35
--- NOTE | 2020-07-04 09:39 | PDOC ---
Date of Service: DATE: 07/04/20 TIME: 09:35 Objective: Objective: D/w nurse - some residual overnight and this morning (250cc), still stooling w/ rectal tube. Vital Signs: Vital Signs Date Time Temp Pulse Resp B/P (MAP) Pulse Ox O2 Delivery O2 Flow Rate FiO2 07/04/20 09:25 95 20 159/77 (104) 96 Ventilator 07/04/20 07:24 98.5 98.5 07/03/20 16:00 8.0 Labs: Laboratory Tests Test 07/04/20 06:23 07/04/20 07:20 Glucose (Fingerstick) 103 mg/dL Sodium Level 138 mmol/L Potassium Level 3.8 mmol/L Chloride Level 102 mmol/L Carbon Dioxide Level 28 mmol/L Anion Gap 8 Blood Urea Nitrogen 14 mg/dL Creatinine 0.6 mg/dL Estimated GFR (Cockcroft-Gault) 103.0 Glucose Level 122 mg/dL Calcium Level 9.1 mg/dL Magnesium Level 2.2 mg/dL Imaging: CXR 07/04 IMPRESSION: Aeration of the lungs appears similar to the prior examination. Support lines and tubes are in similar position. PE: GEN: NAD LUNGS: trach/vent HEART: RRR ABD: soft, BS+, brown stool in rectal tube, PEG site clean and dry w/ tube feeds running NEURO/PSYCH: sedated A/P: S/p cardiopulmonary arrest, anoxic encephalopathy, resp failure S/p trach and PEG -- Monitor residuals. Awaiting DC. Justicifation of Admission Dx: Justifications for Admission: Justification of Admission Dx: N/A SHAHBAZ FOSS Jul 04, 2020 09:39
[2020-07-04] MEDS ORDERED: HALOPERIDOL LACTATE 5 MG/ML VIAL. IVP SCH (10:00)
[2020-07-04 12:11] LABS: FIO2 ABG 40/PS VENT
--- NOTE | 2020-07-04 13:51 | PDOC ---
PROGRESS NOTES Date of Service: DATE: 07/04/20 TIME: 13:50 Chief Complaint Chief Complaint POST covid cardiomyopathy acute systolic CHF Severe NICM: EF 25%. No significant CAD per [facility] anoxic brain injury Cardiac arrest with resuscitation and probable pneumonia, sternal fracture and pneumothorax secondary to CPR, leukocytosis, electrolyte disturbance, hypokalemia, lactic acidosis, elevated troponin. History of Present Illness History of Present Illness 07/04-, minmal change, some relfexive movements, had a video of her withdrawing to light touch to face, soem work with PT, not following commands as directed I discussed poor prognosis with at length, that as days go by, her chances for meaningful recovery continue to dim. I discussed consideration of hospice care. 07/03/2020, discussed plan with family at length yesterday Patient seen and examined in the ICU plan LTAC start PT and OT moving around a lot She is still not very responsive but at the same time kind of agitated Vitals Vitals Vital Signs Date Time Temp Pulse Resp B/P (MAP) Pulse Ox O2 Delivery O2 Flow Rate FiO2 07/04/20 13:08 85 26 161/84 (109) 98 trach shield 07/04/20 12:23 98.3 98.3 07/04/20 11:31 8.0 Physical Exam Physical Exam GENERAL: Opens eyes transiently, does not follow any commands, agitated HEENT: Both pupils are round and reacting. No conjunctival lesion. NECK: Supple. Trach present, erythema and drainage present around trach site improving LUNGS: Decreased breath sounds bilaterally. HEART: S1, S2, regular. No gallop or murmur. ABDOMEN: Soft, nontender. No organomegaly.peg tube + fecal tube , Jolly present EXTREMITIES: No edema or cyanosis. toe amputation of the Rt foot,healed scars SKIN: Unremarkable. NEUROLOGICAL: Opens eyes transiently does not follow any commands General: No acute distress Heart: Regular rate, Normal S1, Normal S2 Lungs: Clear Abdomen: Soft, No hepatosplenomegaly Extremities: No cyanosis Skin: No rashes, No breakdown Labs LABS Laboratory Tests Test 07/04/20 00:13 07/04/20 06:23 07/04/20 07:20 07/04/20 08:00 Glucose (Fingerstick) 126 mg/dL (70-99) 103 mg/dL (70-99) Sodium Level 138 mmol/L (136-145) Potassium Level 3.8 mmol/L (3.5-5.1) Chloride Level 102 mmol/L (98-107) Carbon Dioxide Level 28 mmol/L (21-32) Anion Gap 8 (6-14) Blood Urea Nitrogen 14 mg/dL (7-20) Creatinine 0.6 mg/dL (0.6-1.0) Estimated GFR (Cockcroft-Gault) 103.0 Glucose Level 122 mg/dL (70-99) Calcium Level 9.1 mg/dL (8.5-10.1) Phosphorus Level 3.5 mg/dL (2.6-4.7) Magnesium Level 2.2 mg/dL (1.8-2.4) O2 Saturation 98 % (92-99) Arterial Blood pH 7.43 (7.35-7.45) Arterial Blood pCO2 at Patient Temp 33 mmHg (35-46) Arterial Blood pO2 at Patient Temp 108 mmHg (75-108) Arterial Blood HCO3 21 mmol/L (21-28) Arterial Blood Base Excess -2 mmol/L (-3-3) FiO2 40/ps vent Assessment and Plan Assessmemt and Plan Problems Medical Problems: (1) Cardiac arrest Status: Acute (2) Fracture of ribs, multiple Status: Acute (3) Hyperglycemia Status: Acute (4) Pneumonia Status: Acute (5) Pneumothorax, right Status: Acute (6) Sternal fracture Status: Acute (7) VF (ventricular fibrillation) Status: Acute Comment Review of Relevant I have reviewed the following items afua (where applicable) has been applied. Labs Laboratory Tests Test 07/03/20 06:45 07/03/20 08:00 07/03/20 08:20 07/04/20 00:13 Glucose (Fingerstick) 127 mg/dL (70-99) 126 mg/dL (70-99) O2 Saturation 98 % (92-99) Arterial Blood pH 7.48 (7.35-7.45) Arterial Blood pCO2 at Patient Temp 36 mmHg (35-46) Arterial Blood pO2 at Patient Temp 107 mmHg (75-108) Arterial Blood HCO3 26 mmol/L (21-28) Arterial Blood Base Excess 2 mmol/L (-3-3) FiO2 40/vent White Blood Count 8.0 x10^3/uL (4.0-11.0) Red Blood Count 3.64 x10^6/uL (3.50-5.40) Hemoglobin 10.6 g/dL (12.0-15.5) Hematocrit 32.9 % (36.0-47.0) Mean Corpuscular Volume 90 fL (79-100) Mean Corpuscular Hemoglobin 29 pg (25-35) Mean Corpuscular Hemoglobin Concent 32 g/dL (31-37) Red Cell Distribution Width 13.1 % (11.5-14.5) Platelet Count 498 x10^3/uL (140-400) Neutrophils (%) (Auto) 63 % (31-73) Lymphocytes (%) (Auto) 25 % (24-48) Monocytes (%) (Auto) 8 % (0-9) Eosinophils (%) (Auto) 3 % (0-3) Basophils (%) (Auto) 1 % (0-3) Neutrophils # (Auto) 5.0 x10^3/uL (1.8-7.7) Lymphocytes # (Auto) 2.0 x10^3/uL (1.0-4.8) Monocytes # (Auto) 0.6 x10^3/uL (0.0-1.1) Eosinophils # (Auto) 0.2 x10^3/uL (0.0-0.7) Basophils # (Auto) 0.1 x10^3/uL (0.0-0.2) Sodium Level 142 mmol/L (136-145) Potassium Level 4.1 mmol/L (3.5-5.1) Chloride Level 106 mmol/L (98-107) Carbon Dioxide Level 26 mmol/L (21-32) Anion Gap 10 (6-14) Blood Urea Nitrogen 14 mg/dL (7-20) Creatinine 0.6 mg/dL (0.6-1.0) Estimated GFR (Cockcroft-Gault) 103.0 Glucose Level 114 mg/dL (70-99) Calcium Level 9.1 mg/dL (8.5-10.1) Test 07/04/20 06:23 07/04/20 07:20 07/04/20 08:00 Glucose (Fingerstick) 103 mg/dL (70-99) Sodium Level 138 mmol/L (136-145) Potassium Level 3.8 mmol/L (3.5-5.1) Chloride Level 102 mmol/L (98-107) Carbon Dioxide Level 28 mmol/L (21-32) Anion Gap 8 (6-14) Blood Urea Nitrogen 14 mg/dL (7-20) Creatinine 0.6 mg/dL (0.6-1.0) Estimated GFR (Cockcroft-Gault) 103.0 Glucose Level 122 mg/dL (70-99) Calcium Level 9.1 mg/dL (8.5-10.1) Phosphorus Level 3.5 mg/dL (2.6-4.7) Magnesium Level 2.2 mg/dL (1.8-2.4) O2 Saturation 98 % (92-99) Arterial Blood pH 7.43 (7.35-7.45) Arterial Blood pCO2 at Patient Temp 33 mmHg (35-46) Arterial Blood pO2 at Patient Temp 108 mmHg (75-108) Arterial Blood HCO3 21 mmol/L (21-28) Arterial Blood Base Excess -2 mmol/L (-3-3) FiO2 40/ps vent Laboratory Tests Test 07/04/20 00:13 07/04/20 06:23 07/04/20 07:20 07/04/20 08:00 Glucose (Fingerstick) 126 mg/dL (70-99) 103 mg/dL (70-99) Sodium Level 138 mmol/L (136-145) Potassium Level 3.8 mmol/L (3.5-5.1) Chloride Level 102 mmol/L (98-107) Carbon Dioxide Level 28 mmol/L (21-32) Anion Gap 8 (6-14) Blood Urea Nitrogen 14 mg/dL (7-20) Creatinine 0.6 mg/dL (0.6-1.0) Estimated GFR (Cockcroft-Gault) 103.0 Glucose Level 122 mg/dL (70-99) Calcium Level 9.1 mg/dL (8.5-10.1) Phosphorus Level 3.5 mg/dL (2.6-4.7) Magnesium Level 2.2 mg/dL (1.8-2.4) O2 Saturation 98 % (92-99) Arterial Blood pH 7.43 (7.35-7.45) Arterial Blood pCO2 at Patient Temp 33 mmHg (35-46) Arterial Blood pO2 at Patient Temp 108 mmHg (75-108) Arterial Blood HCO3 21 mmol/L (21-28) Arterial Blood Base Excess -2 mmol/L (-3-3) FiO2 40/ps vent Microbiology 06/30/20 Gram Stain - Final, Resulted 06/30/20 Aerobic and Anaerobic Culture - Preliminary, Resulted 06/17/20 Blood Culture - Final, Complete NO GROWTH AFTER 5 DAYS Medications Current Medications Amiodarone HCl 150 mg/Dextrose 103 ml @ 618 mls/hr 1X ONCE IV Last administered on 06/17/20at 07:00; Start 06/17/20 at 07:00; Stop 06/17/20 at 07:09; Status DC Amiodarone HCl 450 mg/Dextrose 259 ml @ 33 mls/hr 1X ONCE IV ; Start 06/17/20 at 07:00; Stop 06/17/20 at 14:50; Status DC Sodium Chloride 1,000 ml @ 1,000 mls/hr 1X ONCE IV Last administered on 06/17/20at 08:11; Start 06/17/20 at 07:15; Stop 06/17/20 at 08:14; Status DC Midazolam HCl 100 ml @ 0 mls/hr 1X ONCE IV ; Start 06/17/20 at 07:15; Stop 06/17/20 at 07:16; Status DC Midazolam HCl (Versed) 5 mg STK-MED ONCE .ROUTE ; Start 06/17/20 at 07:17; Stop 06/17/20 at 07:17; Status DC Iohexol (Omnipaque 300 Mg/ml) 75 ml 1X ONCE IV Last administered on 06/17/20at 08:17; Start 06/17/20 at 08:15; Stop 06/17/20 at 08:16; Status DC Iohexol (Omnipaque 350 Mg/ml) 100 ml 1X ONCE IV Last administered on 06/17/20at 08:17; Start 06/17/20 at 08:15; Stop 06/17/20 at 08:16; Status DC Info (CONTRAST GIVEN -- Rx MONITORING) 1 each PRN DAILY PRN MC SEE COMMENTS; Start 06/17/20 at 08:15; Stop 06/19/20 at 08:14; Status DC Sodium Chloride 1,000 ml @ 1,000 mls/hr 1X ONCE IV Last administered on 06/17/20at 08:25; Start 06/17/20 at 08:15; Stop 06/17/20 at 09:14; Status DC Potassium Chloride/Water 100 ml @ 50 mls/hr 1X ONCE IV Last administered on 06/17/20at 10:16; Start 06/17/20 at 09:00; Stop 06/17/20 at 10:59; Status DC Piperacillin Sod/ Tazobactam Sod (Zosyn Per Pharmacy) 1 each PRN DAILY PRN MC SEE COMMENTS; Start 06/17/20 at 08:45; Stop 06/27/20 at 11:36; Status DC Piperacillin Sod/ Tazobactam Sod 4.5 gm/Sodium Chloride 100 ml @ 200 mls/hr 1X ONCE IV Last administered on 06/17/20at 10:15; Start 06/17/20 at 08:45; Stop 06/17/20 at 09:14; Status DC Sodium Chloride 1,000 ml @ 125 mls/hr Q8H IV Last administered on 06/17/20at 23:39; Start 06/17/20 at 09:00; Stop 06/18/20 at 08:59; Status DC Propofol (Diprivan) 200 mg 1X ONCE IV Last administered on 06/17/20at 09:00; Start 06/17/20 at 09:00; Stop 06/17/20 at 09:01; Status DC Propofol 100 ml @ As Directed STK-MED ONCE IV ; Start 06/17/20 at 09:05; Stop 06/17/20 at 09:05; Status DC Lidocaine HCl (Lidocaine 1% 20ml Vial) 20 ml 1X ONCE INJ Last administered on 06/17/20at 09:15; Start 06/17/20 at 09:15; Stop 06/17/20 at 09:20; Status DC Lidocaine HCl (Xylocaine-Mpf 1% 5ml Vial) 5 ml STK-MED ONCE .ROUTE ; Start 06/17/20 at 09:26; Stop 06/17/20 at 09:26; Status DC Sodium Chloride 1,000 ml @ 1,000 mls/hr 1X ONCE IV Last administered on 06/17/20at 10:15; Start 06/17/20 at 10:15; Stop 06/17/20 at 11:14; Status DC Propofol 100 ml @ 3.819 mls/ hr CONT PRN IV PER PROTOCOL Last administered on 06/25/20at 06:12; Start 06/17/20 at 10:45; Stop 06/29/20 at 11:47; Status DC Fentanyl Citrate (Fentanyl 2ml Vial) 100 mcg 1X ONCE IV ; Start 06/17/20 at 12:00; Stop 06/17/20 at 12:39; Status DC Midazolam HCl (Versed) 2 mg 1X ONCE IV ; Start 06/17/20 at 12:00; Stop 06/17/20 at 12:39; Status DC Magnesium Sulfate/ Dextrose 100 ml @ 100 mls/hr 1X ONCE IV Last administered on 06/17/20at 12:22; Start 06/17/20 at 12:00; Stop 06/17/20 at 12:39; Status DC Buspirone HCl (Buspar) 30 mg Q8H NG Last administered on 06/17/20at 12:31; Start 06/17/20 at 12:00; Stop 06/17/20 at 12:39; Status DC Glycerin/ Hypromellose/ Polyethylene (Artificial Tears) 1 drop Q6HRS OU ; Start 06/17/20 at 12:00; Stop 06/17/20 at 12:39; Status DC Glycerin/ Hypromellose/ Polyethylene (Artificial Tears) 1 drop PRN Q15MIN PRN OU DRY EYE; Start 06/17/20 at 12:00; Stop 06/17/20 at 12:39; Status DC Heparin Sodium (Porcine) (Heparin Sodium) 5,000 unit BID SQ ; Start 06/17/20 at 21:00; Stop 06/17/20 at 12:39; Status DC Pantoprazole Sodium (PROTONIX VIAL for IV PUSH) 40 mg DAILY IVP ; Start 06/18/20 at 09:00; Stop 06/17/20 at 12:39; Status DC Fentanyl Citrate 30 ml @ 0 mls/hr CONT PRN IV PER PROTOCOL.; Start 06/17/20 at 12:00; Stop 06/17/20 at 12:39; Status DC Propofol 100 ml @ 0 mls/hr CONT PRN IV PER PROTOCOL.; Start 06/17/20 at 12:00; Stop 06/17/20 at 12:39; Status DC Midazolam HCl 100 ml @ 0 mls/hr CONT PRN IV PER PROTOCOL; Start 06/17/20 at 12:00; Stop 06/17/20 at 12:39; Status DC Vecuronium Mcclelland (Norcuron Bolus) 10 mg PRN Q1HR PRN IV SHIVERING; Start 06/17/20 at 12:00; Stop 06/17/20 at 12:39; Status DC Piperacillin Sod/ Tazobactam Sod 4.5 gm/Sodium Chloride 100 ml @ 200 mls/hr 1X ONCE IV ; Start 06/17/20 at 12:15; Stop 06/17/20 at 12:44; Status Cancel Midazolam HCl (Versed) 5 mg Q1HR PRN IV SEDATION Last administered on 06/29/20at 13:48; Start 06/17/20 at 12:45 Fentanyl Citrate (Fentanyl 2ml Vial) 100 mcg Q1HR IVP Last administered on 06/17/20at 18:55; Start 06/17/20 at 13:00; Stop 06/17/20 at 23:41; Status DC Piperacillin Sod/ Tazobactam Sod 3.375 gm/Sodium Chloride 50 ml @ 100 mls/hr Q6H IV Last administered on 06/27/20at 05:31; Start 06/17/20 at 16:00; Stop 06/27/20 at 11:30; Status DC Potassium Bicarbonate (Potassium Effervescent Tablet) 40 meq 1X ONCE NG Last administered on 06/18/20at 10:00; Start 06/18/20 at 09:45; Stop 06/18/20 at 09:48; Status DC Albuterol/ Ipratropium (Duoneb) 3 ml RTQID NEB Last administered on 07/04/20at 11:25; Start 06/18/20 at 20:00 Famotidine (Pepcid Vial) 20 mg BID IVP Last administered on 07/02/20at 08:05; Start 06/18/20 at 21:00; Stop 07/02/20 at 10:23; Status DC Enoxaparin Sodium (Lovenox 40mg Syringe) 40 mg Q24H SQ Last administered on 07/03/20at 21:36; Start 06/18/20 at 21:00 Levothyroxine Sodium (Synthroid) 75 mcg DAILY06 PO Last administered on 07/04/20at 05:43; Start 06/18/20 at 21:00 Fentanyl Citrate 30 ml @ 0 mls/hr CONT PRN IV SEE PROTOCOL Last administered on 06/28/20at 04:56; Start 06/18/20 at 20:15; Stop 06/29/20 at 11:47; Status DC Carvedilol (Coreg) 3.125 mg BIDWMEALS PO Last administered on 07/04/20at 09:22; Start 06/19/20 at 17:00 Atorvastatin Calcium (Lipitor) 20 mg QHS PO Last administered on 07/03/20at 21:36; Start 06/19/20 at 21:00 Aspirin (Aspirin Chewable) 81 mg DAILYWBKFT PO Last administered on 07/04/20at 09:22; Start 06/20/20 at 08:00 Aspirin (Aspirin Chewable) 81 mg 1X ONCE PO Last administered on 06/19/20at 15:57; Start 06/19/20 at 15:30; Stop 06/19/20 at 15:37; Status DC Potassium Chloride/Water 100 ml @ 100 mls/hr 1X ONCE IV Last administered on 06/19/20at 15:57; Start 06/19/20 at 15:30; Stop 06/19/20 at 16:29; Status DC Amiodarone HCl (Cordarone) 400 mg DAILY PO Last administered on 07/04/20at 09:23; Start 06/20/20 at 09:00 Furosemide (Lasix) 40 mg 1X ONCE IVP Last administered on 06/20/20at 14:38; Start 06/20/20 at 13:30; Stop 06/20/20 at 13:31; Status DC Potassium Chloride/Water 100 ml @ 100 mls/hr 1X ONCE IV Last administered on 06/20/20at 14:39; Start 06/20/20 at 13:30; Stop 06/20/20 at 14:29; Status DC Dexmedetomidine HCl 400 mcg/ Sodium Chloride 100 ml @ 0 mls/hr CONT PRN IV PER PROTOCOL Last administered on 06/29/20at 06:11; Start 06/21/20 at 10:45; Stop 06/29/20 at 11:47; Status DC Sodium Chloride 500 ml @ 500 mls/hr 1X PRN PRN IV SEE COMMENTS; Start 06/21/20 at 10:45 Atropine Sulfate (ATROPINE 0.5mg SYRINGE) 0.5 mg PRN Q5MIN PRN IV SEE COMMENTS; Start 06/21/20 at 10:45; Stop 06/29/20 at 11:47; Status DC Fentanyl Citrate (Fentanyl 2ml Vial) 50 mcg PRN Q2HR PRN IVP PAIN Last administered on 07/03/20at 04:14; Start 06/23/20 at 16:45 Midazolam HCl 100 ml @ 0 mls/hr CONT PRN IV SEE PROTOCOL Last administered on 06/28/20at 03:00; Start 06/25/20 at 11:45; Stop 06/29/20 at 11:47; Status DC Lidocaine HCl (Xylocaine-Mpf 1% 2ml Vial) 2 ml STK-MED ONCE .ROUTE ; Start 06/25/20 at 14:21; Stop 06/25/20 at 14:21; Status DC Iohexol (Omnipaque 300 Mg/ml) 100 ml STK-MED ONCE .ROUTE ; Start 06/25/20 at 14:21; Stop 06/25/20 at 14:21; Status DC Heparin Sodium/ Sodium Chloride 1,000 ml @ As Directed STK-MED ONCE .ROUTE ; Start 06/25/20 at 14:21; Stop 06/25/20 at 14:21; Status DC Heparin Sodium (Porcine) (Heparin Sodium) 10,000 unit STK-MED ONCE .ROUTE ; Start 06/25/20 at 14:31; Stop 06/25/20 at 14:31; Status DC Verapamil HCl (Verapamil) 5 mg STK-MED ONCE .ROUTE ; Start 06/25/20 at 14:31; Stop 06/25/20 at 14:31; Status DC Nitroglycerin (Nitroglycerin) 200 mcg STK-MED ONCE .ROUTE ; Start 06/25/20 at 14:31; Stop 06/25/20 at 14:31; Status DC Nitroglycerin (Nitroglycerin) 200 mcg 1X ONCE IART Last administered on 06/25/20at 15:09; Start 06/25/20 at 15:15; Stop 06/25/20 at 15:16; Status DC Verapamil HCl (Verapamil) 2.5 mg 1X ONCE IART Last administered on 06/25/20at 15:09; Start 06/25/20 at 15:15; Stop 06/25/20 at 15:16; Status DC Heparin Sodium (Porcine) (Heparin Sodium) 2,500 unit 1X ONCE IART Last adm inistered on 06/25/20at 15:09; Start 06/25/20 at 15:15; Stop 06/25/20 at 15:16; Status DC Heparin Sodium/ Sodium Chloride (HEPARIN for ARTERIAL LINE FLUSH) 1,000 unit 1X ONCE IART Last administered on 06/25/20at 15:09; Start 06/25/20 at 15:15; Stop 06/25/20 at 15:16; Status DC Iohexol (Omnipaque 300 Mg/ml) 30 ml 1X ONCE IART Last administered on 06/25/20at 15:09; Start 06/25/20 at 15:15; Stop 06/25/20 at 15:16; Status DC Lidocaine HCl (Xylocaine-Mpf 1% 2ml Vial) 2 ml 1X ONCE INJ Last administered on 06/25/20at 15:09; Start 06/25/20 at 15:15; Stop 06/25/20 at 15:16; Status DC Amino Acids/ Glycerin/ Electrolytes 1,000 ml @ 80 mls/hr [id number] IV Last administered on 06/27/20at 20:50; Start 06/25/20 at 17:30; Stop 06/28/20 at 11:35; Status DC Potassium Chloride/Water 100 ml @ 100 mls/hr Q1H IV Last administered on 06/25/20at 18:46; Start 06/25/20 at 18:00; Stop 06/25/20 at 19:59; Status DC Rocuronium Mcclelland (Zemuron) 50 mg STK-MED ONCE .ROUTE ; Start 06/26/20 at 11:37; Stop 06/26/20 at 11:38; Status DC Cellulose (Surgicel Fibrillar 1x2) 1 each STK-MED ONCE .ROUTE Last administered on 06/26/20at 13:20; Start 06/26/20 at 12:19; Stop 06/26/20 at 12:19; Status DC Bupivacaine HCl (Sensorcaine Mpf 0.5%) 30 ml STK-MED ONCE .ROUTE ; Start 06/26/20 at 12:19; Stop 06/26/20 at 12:19; Status DC Ondansetron HCl (Zofran) 4 mg STK-MED ONCE .ROUTE ; Start 06/26/20 at 13:13; Stop 06/26/20 at 13:13; Status DC Dexamethasone Sodium Phosphate (Decadron) 4 mg STK-MED ONCE .ROUTE ; Start 06/26/20 at 13:13; Stop 06/26/20 at 13:14; Status DC Cellulose (Surgicel Fibrillar 1x2) 1 each STK-MED ONCE .ROUTE Last administered on 06/26/20at 13:22; Start 06/26/20 at 13:25; Stop 06/26/20 at 13:25; Status DC Sevoflurane (Ultane) 30 ml STK-MED ONCE IH ; Start 06/26/20 at 13:37; Stop at 13:38; Status DC Propofol (Diprivan) 200 mg STK-MED ONCE IV ; Start 06/26/20 at 13:38; Stop 06/26/20 at 13:38; Status DC Ringer's Solution 1,000 ml @ 30 mls/hr Q24H IV Last administered on 06/27/20at 08:39; Start 06/27/20 at 07:00; Stop 06/27/20 at 18:59; Status DC Prochlorperazine Edisylate (Compazine) 5 mg PACU PRN PRN IV NAUSEA, MRX1; Start 06/27/20 at 07:00; Stop 06/28/20 at 06:59; Status DC Propofol (Diprivan) 200 mg STK-MED ONCE IV ; Start 06/27/20 at 09:53; Stop 06/27/20 at 09:54; Status DC Lidocaine HCl (Lidocaine Pf 2% Vial) 5 ml STK-MED ONCE .ROUTE ; Start 06/27/20 at 09:54; Stop 06/27/20 at 09:54; Status DC Lisinopril (Prinivil) 5 mg DAILY PO Last administered on 07/04/20at 09:23; Start 06/29/20 at 09:00 Acetaminophen/ Hydrocodone Bitart (Lortab 7.5-325/ 15ml Oral Solution) 10 ml 1X ONCE PEG Last administered on 06/28/20at 12:37; Start 06/28/20 at 12:30; Stop 06/28/20 at 12:31; Status DC Piperacillin Sod/ Tazobactam Sod 3.375 gm/Sodium Chloride 50 ml @ 100 mls/hr Q6HRS IV Last administered on 07/04/20at 12:57; Start 06/29/20 at 10:00 Vecuronium Mcclelland (Norcuron Bolus) 10 mg STK-MED ONCE IV ; Start 06/29/20 at 14:31; Stop 06/29/20 at 14:31; Status DC Propofol 100 ml @ 0 mls/hr CONT PRN IV PER PROTOCOL Last administered on 07/02at 07:26; Start 06/29/20 at 16:30 Vecuronium Mcclelland (Norcuron Bolus) 10 mg 1X ONCE IV Last administered on 06/29/20at 14:31; Start 06/29/20 at 14:31; Stop 06/29/20 at 17:19; Status DC Daptomycin 400 mg/ Sodium Chloride 50 ml @ 100 mls/hr Q24H IV Last administered on 07/04/20at 09:25; Start 06/30/20 at 10:00 Famotidine (Pepcid) 20 mg QHS GT Last administered on 07/03/20at 08:52; Start 07/02/20 at 21:00 Haloperidol Lactate (Haldol Inj) 5 mg Q8HRS IVP Last administered on 07/03/20at 06:00; Start 07/02/20 at 14:00; Stop 07/03/20 at 12:40; Status DC Micafungin Sodium 100 mg/Dextrose 100 ml @ 100 mls/hr Q24H IV Last administered on 07/04/20at 09:24; Start 07/03/20 at 09:00 Alteplase, Recombinant (Cathflo For Central Catheter Clearance) 1 mg 1X ONCE INT CAT Last administered on 07/03/20at 08:45; Start 07/03/20 at 08:45; Stop 07/03/20 at 08:46; Status DC Haloperidol Lactate (Haldol Inj) 2.5 mg PRN Q6HRS PRN IVP AGITATION; Start 07/03/20 at 12:30; Stop 07/03/20 at 12:40; Status DC Haloperidol Lactate (Haldol Inj) 2.5 mg PRN Q6HRS PRN IVP AGITATION Last administered on 07/04/20at 01:04; Start 07/03/20 at 14:00; Stop 07/04/20 at 08: 04; Status DC Haloperidol Lactate (Haldol Inj) 2.5 mg Q8HRS IVP ; Start 07/04/20 at 10:00; Stop 07/04/20 at 08:15; Status DC Haloperidol Lactate (Haldol Inj) 2.5 mg PRN Q8HRS PRN IVP AGITATION; Start 07/04/20 at 08:15 Active Scripts Active Reported Acetaminophen-Diphenhyd 500-25 (Acetaminophen/Diphenhydramine) 1 Each Tablet 1 Each PO HS PRN Naproxen 500 Mg Tablet 1 Tab PO BID PRN 30 Days Tramadol Hcl 50 Mg Tablet 50 Mg PO Q4HRS Levothyroxine Sodium 75 Mcg Tablet 1 Tab PO DAILY Adderall 20 Mg Tablet (Dextroamphetamine/Amphetamine) 20 Mg Tablet 1 Tab PO DAILY MDD 1 Tablet(s) 5 Days Prozac (Fluoxetine Hcl) 20 Mg Capsule 1 Cap PO [id number] Vitals/I & O Vital Sign - Last 24 Hours 07/03/20 07/03/20 07/03/20 07/03/20 14:13 15:08 16:00 16:15 Pulse 76 79 61 Resp 16 16 16 B/P (MAP) 152/79 (103) 151/82 (105) 144/74 (97) Pulse Ox 98 97 97 100 O2 Delivery trach shield trach shield Tracheal Collar trach shield O2 Flow Rate 8.0 07/03/20 07/03/20 07/03/20 07/03/20 17:04 17:19 17:45 19:00 Temp 98.4 98.4 Pulse 71 71 75 80 Resp 16 16 18 B/P (MAP) 132/71 (91) 132/71 135/73 (93) 153/82 (105) Pulse Ox 99 93 94 O2 Delivery trach shield trach shield Tracheal Collar 07/03/20 07/03/20 07/03/20 07/03/20 20:00 20:00 20:22 21:00 Temp 98.6 98.6 Pulse 84 80 Resp 18 16 B/P (MAP) 145/76 (99) 160/79 (106) Pulse Ox 97 97 98 O2 Delivery Mechanical Ventilator Ventilator Ventilator Ventilator 07/03/20 07/03/20 07/03/20 07/03/20 22:00 23:00 23:56 23:59 Pulse 72 79 Resp 16 16 B/P (MAP) 127/67 (87) 121/73 (89) Pulse Ox 98 99 98 O2 Delivery Ventilator Ventilator Ventilator Mechanical Ventilator 07/03/20 07/04/20 07/04/20 07/04/20 23:59 01:00 02:00 03:00 Temp 97.1 97.1 Pulse 80 95 85 89 Resp 20 20 24 20 B/P (MAP) 152/76 (101) 167/85 (112) 160/77 (104) 150/70 (96) Pulse Ox 97 97 97 97 O2 Delivery Ventilator Ventilator Ventilator Ventilator 07/04/20 07/04/20 07/04/20 07/04/20 04:00 04:00 04:20 05:00 Temp 98.9 98.9 Pulse 90 82 Resp 20 20 B/P (MAP) 150/69 (96) 140/86 (104) Pulse Ox 98 98 98 O2 Delivery Ventilator Mechanical Ventilator Ventilator Ventilator 07/04/20 07/04/20 07/04/20 07/04/20 06:00 07:24 08:04 08:09 Temp 98.5 98.5 Pulse 83 86 Resp 22 B/P (MAP) 151/76 (101) 157/84 (108) Pulse Ox 98 98 97 O2 Delivery Ventilator Ventilator Mechanical Ventilator Ventilator 07/04/20 07/04/20 07/04/20 07/04/20 08:18 09:22 09:23 09:23 Pulse 81 81 81 81 Resp 20 B/P (MAP) 159/80 (106) 159/80 159/80 159/80 Pulse Ox 99 O2 Delivery Trach shield 07/04/20 07/04/20 07/04/20 07/04/20 09:25 10:00 11:02 11:31 Pulse 95 90 73 Resp 20 20 20 B/P (MAP) 159/77 (104) 162/74 (103) 146/82 (103) Pulse Ox 96 99 97 98 O2 Delivery trach shield trach shield trach shield Tracheal Collar O2 Flow Rate 8.0 07/04/20 07/04/20 07/04/20 12:00 12:23 13:08 Temp 98.3 98.3 Pulse 77 85 Resp 24 26 B/P (MAP) 166/82 (110) 161/84 (109) Pulse Ox 98 98 O2 Delivery Mechanical Ventilator trach shield trach shield Intake and Output 07/03/20 07/03/20 07/04/20 15:00 23:00 07:00 Intake Total 450 ml 1248 ml 1397 ml Output Total 325 ml 1340 ml 680 ml Balance 125 ml -92 ml 717 ml Justicifation of Admission Dx: Justifications for Admission: Justification of Admission Dx: N/A ERIKA CHEUNG MD Jul 04, 2020 13:51
--- NOTE | 2020-07-04 15:01 | NUR ---
SS following up with discharge planning. SS reviewed pt chart and discussed with pt RN. Pt is currently on trach shield. Trach and Peg in place. COVID19 negative. Pt on IV Micafungin, IV Daptomycin, and IV Zosyn. Pt denied at [facility] due to high risk insurance. SS currently awaiting acceptance decision from [facility], ; fax [phone]. SS will continue to follow for discharge planning.
[2020-07-04] MEDS: FAMOTIDINE 20 MG TABLET. GT SCH (21:09)
[2020-07-04] MEDS: ATORVASTATIN CALCIUM 20 MG TABLET PO SCH (21:09)
[2020-07-04] MEDS: LISINOPRIL 20 MG TABLET PO SCH (21:10)
[2020-07-04] MEDS: ENOXAPARIN 40 MG/0.4 ML SYRINGE. SQ SCH (21:10)
[2020-07-05] VITALS (16 sets, daily range): BP systolic 100–160; BP diastolic 55–85
[2020-07-05] MEDS: PIPERACILLIN/TAZOBACTAM 3.375 GM in IV NORMAL SALINE 50ML 50 ML IV SCH ×4 (00:06→17:15)
[2020-07-05] MEDS: LEVOTHYROXINE 75 MCG TABLET PO SCH (06:01)
[2020-07-05 06:33] LABS: BASO # 0.1 x10^3/uL (0.0-0.2); BASO % 1 % (0-3); EOS # 0.3 x10^3/uL (0.0-0.7); EOS % 2 % (0-3); HEMATOCRIT 39.1 % (36.0-47.0); HEMOGLOBIN 12.3 g/dL (12.0-15.5); LYMPH # 1.9 x10^3/uL (1.0-4.8); LYMPH % 16 % (24-48); MEAN CORPUSCULAR HEMOGLOBIN 29 pg (25-35); MEAN CORPUSCULAR HGB CONC 32 g/dL (31-37); MEAN CORPUSCULAR VOLUME 91 fL (79-100); MONO # 0.7 x10^3/uL (0.0-1.1); MONO % 6 % (0-9); NEUT # 9.1 x10^3/uL (1.8-7.7); NEUT % 76 % (31-73); PLATELET COUNT 657 x10^3/uL (140-400); RED BLOOD COUNT 4.31 x10^6/uL (3.50-5.40); RED CELL DISTRIBUTION WIDTH 13.2 % (11.5-14.5); WHITE BLOOD COUNT 12.1 x10^3/uL (4.0-11.0)
[2020-07-05 06:51] LABS: ALBUMIN 2.8 g/dL (3.4-5.0); ALBUMIN/GLOBULIN RATIO 0.6 (1.0-1.7); CALCIUM 9.5 mg/dL (8.5-10.1); CREATININE 0.6 mg/dL (0.6-1.0); POTASSIUM 3.5 mmol/L (3.5-5.1); TOTAL BILIRUBIN 0.3 mg/dL (0.2-1.0); TOTAL PROTEIN 7.4 g/dL (6.4-8.2)
[2020-07-05] MEDS: MICAFUNGIN 100 MG in IV DEXTROSE 5% 100ML 100 ML IV SCH (08:04)
[2020-07-05] MEDS: CARVEDILOL 3.125 MG TABLET. PO SCH ×2 (08:05→17:15)
[2020-07-05] MEDS: AMIODARONE HCL 200 MG TABLET. PO SCH (08:05)
[2020-07-05] MEDS: IPRATRPIUM/ALBUTEROL 0.5/2.5MG 3 ML NEBU. NEB SCH ×4 (08:06→20:00)
[2020-07-05] MEDS: LISINOPRIL 20 MG TABLET PO SCH ×2 (08:06→20:23)
[2020-07-05] MEDS: ASPIRIN CHEWABLE 81 MG TABLET. PO SCH (08:06)
--- NOTE | 2020-07-05 08:14 | PDOC ---
Infectious Disease Note Subjective: Subjective Patient intubated Does not follow any commands Remains afebrile Vital Signs: Vital Signs Vital Signs Date Time Temp Pulse Resp B/P (MAP) Pulse Ox O2 Delivery O2 Flow Rate FiO2 07/05/20 08:06 96 Tracheal Collar 8.0 07/05/20 08:06 94 128/73 07/05/20 07:00 22 07/05/20 04:00 99.2 99.2 Physical Exam: PHYSICAL EXAM GENERAL: Opens eyes transiently, does not follow any commands, HEENT: Both pupils are round and reacting. No conjunctival lesion. NECK: Supple. Trach present, erythema and drainage present around trach site improving LUNGS: Decreased breath sounds bilaterally. HEART: S1, S2, regular. No gallop or murmur. ABDOMEN: Soft, nontender. No organomegaly.peg tube + fecal tube , Jolly present EXTREMITIES: No edema or cyanosis. toe amputation of the Rt foot,healed scars SKIN: Unremarkable. NEUROLOGICAL: Opens eyes transiently does not follow any commands Medications: Inpatient Meds: Current Medications Medications (Trade) Dose Ordered Sig/Rosalio Start Time Stop Time Status Last Admin Dose Admin Acetaminophen/ Hydrocodone Bitart (Lortab 7.5-325/ 15ml Oral Solution) 10 ml 1X ONCE 06/28/20 12:30 06/28/20 12:31 DC 06/28/20 12:37 10 ML Albuterol/ Ipratropium (Duoneb) 3 ml RTQID 06/18/20 20:00 07/05/20 08:06 3 ML Alteplase, Recombinant (Cathflo For Central Catheter Clearance) 1 mg 1X ONCE 07/03/20 08:45 07/03/20 08:46 DC 07/03/20 08:45 1 MG Amino Acids/ Glycerin/ Electrolytes 1,000 ml @ 80 mls/hr [id number] 06/25/20 17:30 06/28/20 11:35 DC 06/27/20 20:50 80 MLS/HR Amiodarone HCl (Cordarone) 400 mg DAILY 06/20/20 09:00 07/05/20 08:05 400 MG Amiodarone HCl 150 mg/Dextrose 103 ml @ 618 mls/hr 1X ONCE 06/17/20 07:00 06/17/20 07:09 DC 06/17/20 07:00 618 MLS/HR Amiodarone HCl 450 mg/Dextrose 259 ml @ 33 mls/hr 1X ONCE 06/17/20 07:00 06/17/20 14:50 DC Aspirin (Aspirin Chewable) 81 mg 1X ONCE 06/19/20 15:30 06/19/20 15:37 DC 06/19/20 15:57 81 MG Atorvastatin Calcium (Lipitor) 20 mg QHS 06/19/20 21:00 07/04/20 21:09 20 MG Atropine Sulfate (ATROPINE 0.5mg SYRINGE) 0.5 mg PRN Q5MIN PRN 06/21/20 10:45 06/29/20 11:47 DC Bupivacaine HCl (Sensorcaine Mpf 0.5%) 30 ml STK-MED ONCE 06/26/20 12:19 06/26/20 12:19 DC Buspirone HCl (Buspar) 30 mg Q8H 06/17/20 12:00 06/17/20 12:39 DC 06/17/20 12:31 30 MG Carvedilol (Coreg) 3.125 mg BIDWMEALS 06/19/20 17:00 07/05/20 08:05 3.125 MG Cellulose (Surgicel Fibrillar 1x2) 1 each STK-MED ONCE 06/26/20 13:25 06/26/20 13:25 DC 06/26/20 13:22 1 EACH Daptomycin 400 mg/ Sodium Chloride 50 ml @ 100 mls/hr Q24H 06/30/20 10:00 07/04/20 09:25 100 MLS/HR Dexamethasone Sodium Phosphate (Decadron) 4 mg STK-MED ONCE 06/26/20 13:13 06/26/20 13:14 DC Dexmedetomidine HCl 400 mcg/ Sodium Chloride 100 ml @ 0 mls/hr CONT PRN 06/21/20 10:45 06/29/20 11:47 DC 06/29/20 06:11 15.1 MLS/HR Enoxaparin Sodium (Lovenox 40mg Syringe) 40 mg Q24H 06/18/20 21:00 07/04/20 21:10 40 MG Famotidine (Pepcid Vial) 20 mg BID 06/18/20 21:00 07/02/20 10:23 DC 07/02/20 08:05 20 MG Famotidine (Pepcid) 20 mg QHS 07/02/20 21:00 07/04/20 21:09 20 MG Fentanyl Citrate (Fentanyl 2ml Vial) 50 mcg PRN Q2HR PRN 06/23/20 16:45 07/03/20 04:14 50 MCG Furosemide (Lasix) 40 mg 1X ONCE 06/20/20 13:30 06/20/20 13:31 DC 06/20/20 14:38 40 MG Glycerin/ Hypromellose/ Polyethylene (Artificial Tears) 1 drop PRN Q15MIN PRN 06/17/20 12:00 06/17/20 12:39 DC Haloperidol Lactate (Haldol Inj) 2.5 mg PRN Q8HRS PRN 07/04/20 08:15 Heparin Sodium (Porcine) (Heparin Sodium) 2,500 unit 1X ONCE 06/25/20 15:15 06/25/20 15:16 DC 06/25/20 15:09 2,500 UNIT Heparin Sodium/ Sodium Chloride (HEPARIN for ARTERIAL LINE FLUSH) 1,000 unit 1X ONCE 06/25/20 15:15 06/25/20 15:16 DC 06/25/20 15:09 1,000 UNIT Info (CONTRAST GIVEN -- Rx MONITORING) 1 each PRN DAILY PRN 06/17/20 08:15 06/19/20 08:14 DC Iohexol (Omnipaque 300 Mg/ml) 30 ml 1X ONCE 06/25/20 15:15 06/25/20 15:16 DC 06/25/20 15:09 30 ML Iohexol (Omnipaque 350 Mg/ml) 100 ml 1X ONCE 06/17/20 08:15 06/17/20 08:16 DC 06/17/20 08:17 100 ML Levothyroxine Sodium (Synthroid) 75 mcg DAILY06 06/18/20 21:00 07/05/20 06:01 75 MCG Lidocaine HCl (Lidocaine 1% 20ml Vial) 20 ml 1X ONCE 06/17/20 09:15 06/17/20 09:20 DC 06/17/20 09:15 20 ML Lidocaine HCl (Lidocaine Pf 2% Vial) 5 ml STK-MED ONCE 06/27/20 09:54 06/27/20 09:54 DC Lidocaine HCl (Xylocaine-Mpf 1% 2ml Vial) 2 ml 1X ONCE 06/25/20 15:15 06/25/20 15:16 DC 06/25/20 15:09 2 ML Lidocaine HCl (Xylocaine-Mpf 1% 5ml Vial) 5 ml STK-MED ONCE 06/17/20 09:26 06/17/20 09:26 DC Lisinopril (Prinivil) 20 mg BID 07/04/20 21:00 07/05/20 08:06 20 MG Magnesium Sulfate/ Dextrose 100 ml @ 100 mls/hr 1X ONCE 06/17/20 12:00 06/17/20 12:39 DC 06/17/20 12:22 100 MLS/HR Micafungin Sodium 100 mg/Dextrose 100 ml @ 100 mls/hr Q24H 07/03/20 09:00 07/05/20 08:04 100 MLS/HR Midazolam HCl 100 ml @ 0 mls/hr CONT PRN 06/25/20 11:45 06/29/20 11:47 DC 06/28/20 03:00 10 MLS/HR Midazolam HCl (Versed) 5 mg Q1HR PRN 06/17/20 12:45 06/29/20 13:48 5 MG Nitroglycerin (Nitroglycerin) 200 mcg 1X ONCE 06/25/20 15:15 06/25/20 15:16 DC 06/25/20 15:09 200 MCG Ondansetron HCl (Zofran) 4 mg STK-MED ONCE 06/26/20 13:13 06/26/20 13:13 DC Pantoprazole Sodium (PROTONIX VIAL for IV PUSH) 40 mg DAILY 06/18/20 09:00 06/17/20 12:39 DC Piperacillin Sod/ Tazobactam Sod (Zosyn Per Pharmacy) 1 each PRN DAILY PRN 06/17/20 08:45 06/27/20 11:36 DC Piperacillin Sod/ Tazobactam Sod 3.375 gm/Sodium Chloride 50 ml @ 100 mls/hr Q6HRS 06/29/20 10:00 07/05/20 06:01 100 MLS/HR Piperacillin Sod/ Tazobactam Sod 4.5 gm/Sodium Chloride 100 ml @ 200 mls/hr 1X ONCE 06/17/20 12:15 06/17/20 12:44 Cancel Potassium Bicarbonate (Potassium Effervescent Tablet) 40 meq 1X ONCE 06/18/20 09:45 06/18/20 09:48 DC 06/18/20 10:00 40 MEQ Potassium Chloride/Water 100 ml @ 100 mls/hr Q1H 06/25/20 18:00 06/25/20 19:59 DC 06/25/20 18:46 100 MLS/HR Prochlorperazine Edisylate (Compazine) 5 mg PACU PRN PRN 06/27/20 07:00 06/28/20 06:59 DC Propofol 100 ml @ 0 mls/hr CONT PRN 06/29/20 16:30 07/02/20 07:26 21.1 MLS/HR Propofol (Diprivan) 200 mg STK-MED ONCE 06/27/20 09:53 06/27/20 09:54 DC Ringer's Solution 1,000 ml @ 30 mls/hr Q24H 06/27/20 07:00 06/27/20 18:59 DC 06/27/20 08:39 30 MLS/HR Rocuronium [place] (Zemuron) 50 mg STK-MED ONCE 06/26/20 11:37 06/26/20 11:38 DC Sevoflurane (Ultane) 30 ml STK-MED ONCE 06/26/20 13:37 06/26/20 13:38 DC Sodium Chloride 500 ml @ 500 mls/hr 1X PRN PRN 06/21/20 10:45 Vecuronium [place] (Norcuron Bolus) 10 mg 1X ONCE 06/29/20 14:31 06/29/20 17:19 DC 06/29/20 14:31 10 MG Verapamil HCl (Verapamil) 2.5 mg 1X ONCE 06/25/20 15:15 06/25/20 15:16 DC 06/25/20 15:09 2.5 MG Labs: Lab Laboratory Tests Test 07/05/20 00:09 07/05/20 06:05 Glucose (Fingerstick) 127 mg/dL (70-99) 131 mg/dL (70-99) White Blood Count 12.1 x10^3/uL (4.0-11.0) Red Blood Count 4.31 x10^6/uL (3.50-5.40) Hemoglobin 12.3 g/dL (12.0-15.5) Hematocrit 39.1 % (36.0-47.0) Mean Corpuscular Volume 91 fL (79-100) Mean Corpuscular Hemoglobin 29 pg (25-35) Mean Corpuscular Hemoglobin Concent 32 g/dL (31-37) Red Cell Distribution Width 13.2 % (11.5-14.5) Platelet Count 657 x10^3/uL (140-400) Neutrophils (%) (Auto) 76 % (31-73) Lymphocytes (%) (Auto) 16 % (24-48) Monocytes (%) (Auto) 6 % (0-9) Eosinophils (%) (Auto) 2 % (0-3) Basophils (%) (Auto) 1 % (0-3) Neutrophils # (Auto) 9.1 x10^3/uL (1.8-7.7) Lymphocytes # (Auto) 1.9 x10^3/uL (1.0-4.8) Monocytes # (Auto) 0.7 x10^3/uL (0.0-1.1) Eosinophils # (Auto) 0.3 x10^3/uL (0.0-0.7) Basophils # (Auto) 0.1 x10^3/uL (0.0-0.2) Sodium Level 139 mmol/L (136-145) Potassium Level 3.5 mmol/L (3.5-5.1) Chloride Level 103 mmol/L (98-107) Carbon Dioxide Level 27 mmol/L (21-32) Anion Gap 9 (6-14) Blood Urea Nitrogen 16 mg/dL (7-20) Creatinine 0.6 mg/dL (0.6-1.0) Estimated GFR (Cockcroft-Gault) 103.0 BUN/Creatinine Ratio 27 (6-20) Glucose Level 132 mg/dL (70-99) Calcium Level 9.5 mg/dL (8.5-10.1) Total Bilirubin 0.3 mg/dL (0.2-1.0) Aspartate Amino Transf (AST/SGOT) 30 U/L (15-37) Alanine Aminotransferase (ALT/SGPT) 25 U/L (14-59) Alkaline Phosphatase 101 U/L (46-116) Total Protein 7.4 g/dL (6.4-8.2) Albumin 2.8 g/dL (3.4-5.0) Albumin/Globulin Ratio 0.6 (1.0-1.7) Micro RUN DATE: 07/02/20 [facility] LAB *LIVE* PAGE 1 RUN TIME: 1146 Specimen Inquiry PATIENT: BASILIO WHYTE ACCT: [id number] LOC: 1 [facility] U: [id number] AGE/SX: 59/F ROOM: 106 RE06/17/[address]: HUSSEIN GOODWIN III, DO : 1960 BED: 1 DIS: STATUS: ADM IN TLOC: SPEC #: [id number] BORA: 06/30/20 STATUS: RES REQ #: [id number] RECD: 07/01/[address]: HUSSEIN GOODWIN III, DO SOURCE: DRAINAGE ENTR: 07/01/[address]: JEFF FLORES MD SPDESC: WOUND OC,POPPY PAUL,MELY MEHTA,NURA J MD SISILLO,KIRA ARIZMENDI MD, APRN,MARGOTH House MD ORDERED: ANAER/AEROB/GS COMMENTS: DRAINAGE/SECRETION FROM TRACH SITE -------- ---- Procedure Result GRAM STAIN Final Final SQUAMOUS EPI CELL:NONE SEEN PMN (WBCs):NONE SEEN YEAST:MANY Unless otherwise specified, Testing Performed by: [address] [address] For Inquires, the Physician may contact the Microbiology department at [phone] ANAEROBIC-AEROBIC CULTURE Preliminary Preliminary MANY YEAST on 07/02/20 at 0914 FINAL ID= [FILOMENA ALBICANS] FILOMENA ALBICANS Unless otherwise specified, Testing Performed by: [address] [address] For Inquires, the Physician may contact the Microbiology department at [phone] Objective: Assessment: 1. Cardiopulmonary arrest at home. With VT, shock then asystole s/p cardiac cath , normal coronaries Severe NICM Acute systolic CHF: compensated 2. Leukocytosis, likely reactive. resolved 3. Lactic acidosis from #1. 4. Respiratory failure. suspected aspiration; status post trach placement, swab culture from trach site with Filomena albicans 5. Anoxic Encephalopathy 6. Hypertension. 7. Pneumothorax.s/p CTS, 8. Rib fracture and sternal fracture. 9. Anemia 10. S/P Peg tube placement 11. Marijuana use: + UDS Plan: Plan of Care Continue Zosyn DC Zyvox and micafungin cont supportive care Monitor labs and cultures Overall prognosis poor D/W SAÚL MAYES MD Jul 05, 2020 08:14
--- NOTE | 2020-07-05 09:46 | NUR ---
SS following up with discharge planning. SS reviewed pt chart and discussed with pt RN. Pt is currently on trach shield at eight liters. Trach and Peg in place. COVID19 negative. Pt on IV Zosyn. Pt denied at [facility] and [facility] due to high risk insurance. Pt accepted clinically at [facility], ; fax [phone]. [place] [facility] reported that they are currently in the process of verifying benefits. SS will continue to follow for discharge planning.
--- NOTE | 2020-07-05 09:53 | PDOC ---
Date of Service: DATE: 07/05/20 TIME: 09:51 Subjective: Subjective: Family present. Objective: Objective: D/w nurse - maintenance technician 3rd shift reported some tube feed residuals but none noted this morning. Vital Signs: Vital Signs Date Time Temp Pulse Resp B/P (MAP) Pulse Ox O2 Delivery O2 Flow Rate FiO2 07/05/20 08:06 96 Tracheal Collar 8.0 07/05/20 08:06 94 128/73 07/05/20 07:00 22 07/05/20 04:00 99.2 99.2 Labs: Laboratory Tests Test 07/05/20 00:09 07/05/20 06:05 Glucose (Fingerstick) 127 mg/dL 131 mg/dL White Blood Count 12.1 x10^3/uL Red Blood Count 4.31 x10^6/uL Hemoglobin 12.3 g/dL Hematocrit 39.1 % Mean Corpuscular Volume 91 fL Mean Corpuscular Hemoglobin 29 pg Mean Corpuscular Hemoglobin Concent 32 g/dL Red Cell Distribution Width 13.2 % Platelet Count 657 x10^3/uL Neutrophils (%) (Auto) 76 % Lymphocytes (%) (Auto) 16 % Monocytes (%) (Auto) 6 % Eosinophils (%) (Auto) 2 % Basophils (%) (Auto) 1 % Neutrophils # (Auto) 9.1 x10^3/uL Lymphocytes # (Auto) 1.9 x10^3/uL Monocytes # (Auto) 0.7 x10^3/uL Eosinophils # (Auto) 0.3 x10^3/uL Basophils # (Auto) 0.1 x10^3/uL Sodium Level 139 mmol/L Potassium Level 3.5 mmol/L Chloride Level 103 mmol/L Carbon Dioxide Level 27 mmol/L Anion Gap 9 Blood Urea Nitrogen 16 mg/dL Creatinine 0.6 mg/dL Estimated GFR (Cockcroft-Gault) 103.0 BUN/Creatinine Ratio 27 Glucose Level 132 mg/dL Calcium Level 9.5 mg/dL Total Bilirubin 0.3 mg/dL Aspartate Amino Transf (AST/SGOT) 30 U/L Alanine Aminotransferase (ALT/SGPT) 25 U/L Alkaline Phosphatase 101 U/L Total Protein 7.4 g/dL Albumin 2.8 g/dL Albumin/Globulin Ratio 0.6 PE: GEN: NAD LUNGS: trach/collar HEART: RRR ABD: soft, BS quiet, PEG site with just a little drainage, rectal tube w/ brown stool NEURO/PSYCH: didn't respond A/P: S/p cardiopulmonary arrest, anoxic encephalopathy, resp failure S/p trach and PEG -- Stable from GI standpoint, awaiting DC plans. Justicifation of Admission Dx: Justifications for Admission: Justification of Admission Dx: N/A SHAHBAZ FOSS Jul 05, 2020 09:53
--- NOTE | 2020-07-05 10:16 | PDOC ---
PULMONARY PROGRESS NOTES DATE: 07/05/20 TIME: 10:14 Subjective S/P cardiac arrest 06/17 Had TS 24 hrs S/P trach on 06/26 S/P peg 06/27 Not much clinical change Vitals Vital Signs Date Time Temp Pulse Resp B/P (MAP) Pulse Ox O2 Delivery O2 Flow Rate FiO2 07/05/20 08:06 96 Tracheal Collar 8.0 07/05/20 08:06 94 128/73 07/05/20 07:00 22 07/05/20 04:00 99.2 99.2 Lungs: Clear Cardiovascular: S1, S2 Abdomen: Soft, Non-tender Extremities: No Edema Skin: Warm Labs Laboratory Tests Test 07/04/20 00:13 07/04/20 06:23 07/04/20 07:20 07/04/20 08:00 Glucose (Fingerstick) 126 mg/dL (70-99) 103 mg/dL (70-99) Sodium Level 138 mmol/L (136-145) Potassium Level 3.8 mmol/L (3.5-5.1) Chloride Level 102 mmol/L (98-107) Carbon Dioxide Level 28 mmol/L (21-32) Anion Gap 8 (6-14) Blood Urea Nitrogen 14 mg/dL (7-20) Creatinine 0.6 mg/dL (0.6-1.0) Estimated GFR (Cockcroft-Gault) 103.0 Glucose Level 122 mg/dL (70-99) Calcium Level 9.1 mg/dL (8.5-10.1) Phosphorus Level 3.5 mg/dL (2.6-4.7) Magnesium Level 2.2 mg/dL (1.8-2.4) O2 Saturation 98 % (92-99) Arterial Blood pH 7.43 (7.35-7.45) Arterial Blood pCO2 at Patient Temp 33 mmHg (35-46) Arterial Blood pO2 at Patient Temp 108 mmHg (75-108) Arterial Blood HCO3 21 mmol/L (21-28) Arterial Blood Base Excess -2 mmol/L (-3-3) FiO2 40/ps vent Test 07/05/20 00:09 07/05/20 06:05 Glucose (Fingerstick) 127 mg/dL (70-99) 131 mg/dL (70-99) White Blood Count 12.1 x10^3/uL (4.0-11.0) Red Blood Count 4.31 x10^6/uL (3.50-5.40) Hemoglobin 12.3 g/dL (12.0-15.5) Hematocrit 39.1 % (36.0-47.0) Mean Corpuscular Volume 91 fL (79-100) Mean Corpuscular Hemoglobin 29 pg (25-35) Mean Corpuscular Hemoglobin Concent 32 g/dL (31-37) Red Cell Distribution Width 13.2 % (11.5-14.5) Platelet Count 657 x10^3/uL (140-400) Neutrophils (%) (Auto) 76 % (31-73) Lymphocytes (%) (Auto) 16 % (24-48) Monocytes (%) (Auto) 6 % (0-9) Eosinophils (%) (Auto) 2 % (0-3) Basophils (%) (Auto) 1 % (0-3) Neutrophils # (Auto) 9.1 x10^3/uL (1.8-7.7) Lymphocytes # (Auto) 1.9 x10^3/uL (1.0-4.8) Monocytes # (Auto) 0.7 x10^3/uL (0.0-1.1) Eosinophils # (Auto) 0.3 x10^3/uL (0.0-0.7) Basophils # (Auto) 0.1 x10^3/uL (0.0-0.2) Sodium Level 139 mmol/L (136-145) Potassium Level 3.5 mmol/L (3.5-5.1) Chloride Level 103 mmol/L (98-107) Carbon Dioxide Level 27 mmol/L (21-32) Anion Gap 9 (6-14) Blood Urea Nitrogen 16 mg/dL (7-20) Creatinine 0.6 mg/dL (0.6-1.0) Estimated GFR (Cockcroft-Gault) 103.0 BUN/Creatinine Ratio 27 (6-20) Glucose Level 132 mg/dL (70-99) Calcium Level 9.5 mg/dL (8.5-10.1) Total Bilirubin 0.3 mg/dL (0.2-1.0) Aspartate Amino Transf (AST/SGOT) 30 U/L (15-37) Alanine Aminotransferase (ALT/SGPT) 25 U/L (14-59) Alkaline Phosphatase 101 U/L (46-116) Total Protein 7.4 g/dL (6.4-8.2) Albumin 2.8 g/dL (3.4-5.0) Albumin/Globulin Ratio 0.6 (1.0-1.7) Laboratory Tests Test 07/05/20 00:09 07/05/20 06:05 Glucose (Fingerstick) 127 mg/dL (70-99) 131 mg/dL (70-99) White Blood Count 12.1 x10^3/uL (4.0-11.0) Red Blood Count 4.31 x10^6/uL (3.50-5.40) Hemoglobin 12.3 g/dL (12.0-15.5) Hematocrit 39.1 % (36.0-47.0) Mean Corpuscular Volume 91 fL (79-100) Mean Corpuscular Hemoglobin 29 pg (25-35) Mean Corpuscular Hemoglobin Concent 32 g/dL (31-37) Red Cell Distribution Width 13.2 % (11.5-14.5) Platelet Count 657 x10^3/uL (140-400) Neutrophils (%) (Auto) 76 % (31-73) Lymphocytes (%) (Auto) 16 % (24-48) Monocytes (%) (Auto) 6 % (0-9) Eosinophils (%) (Auto) 2 % (0-3) Basophils (%) (Auto) 1 % (0-3) Neutrophils # (Auto) 9.1 x10^3/uL (1.8-7.7) Lymphocytes # (Auto) 1.9 x10^3/uL (1.0-4.8) Monocytes # (Auto) 0.7 x10^3/uL (0.0-1.1) Eosinophils # (Auto) 0.3 x10^3/uL (0.0-0.7) Basophils # (Auto) 0.1 x10^3/uL (0.0-0.2) Sodium Level 139 mmol/L (136-145) Potassium Level 3.5 mmol/L (3.5-5.1) Chloride Level 103 mmol/L (98-107) Carbon Dioxide Level 27 mmol/L (21-32) Anion Gap 9 (6-14) Blood Urea Nitrogen 16 mg/dL (7-20) Creatinine 0.6 mg/dL (0.6-1.0) Estimated GFR (Cockcroft-Gault) 103.0 BUN/Creatinine Ratio 27 (6-20) Glucose Level 132 mg/dL (70-99) Calcium Level 9.5 mg/dL (8.5-10.1) Total Bilirubin 0.3 mg/dL (0.2-1.0) Aspartate Amino Transf (AST/SGOT) 30 U/L (15-37) Alanine Aminotransferase (ALT/SGPT) 25 U/L (14-59) Alkaline Phosphatase 101 U/L (46-116) Total Protein 7.4 g/dL (6.4-8.2) Albumin 2.8 g/dL (3.4-5.0) Albumin/Globulin Ratio 0.6 (1.0-1.7) Medications Active Scripts Medications Dose Route/Sig Max Daily Dose Days Date Category Acetaminophen-Diphenhyd 500-25 (Acetaminophen/Diphenhydramine) 1 Each Tablet 1 Each PO HS PRN 06/18/20 Reported Naproxen 500 Mg Tablet 1 Tab PO BID PRN 30 06/18/20 Reported Tramadol Hcl 50 Mg Tablet 50 Mg PO Q4HRS 06/18/20 Reported Levothyroxine Sodium 75 Mcg Tablet 1 Tab PO DAILY 06/18/20 Reported Adderall 20 Mg Tablet (Dextroamphetamine/Amphetamine) 20 Mg Tablet 1 Tab PO DAILY MDD 1 Tablet(s) 5 06/18/20 Reported Prozac (Fluoxetine Hcl) 20 Mg Capsule 1 Cap PO [id number] 06/18/20 Reported Comments CXR IMPRESSION: Left lung base opacities likely consolidative process such as pneumonia. Small left pleural effusion. Impression . IMPRESSION: 1. Acute respiratory failure secondary to [id number] cardiopulmonary arrest/ anoxic encephalopathy-- now S/P trach 2. [id number]-pe-[id number] ventricular fibrillation and asystole leading to anoxic brain injury. 3. Anoxic encephalopathy. 4. COVID neg 5. Morbid obesity. 6. Leukocytosis--improved 7. Lactic acidosis secondary to [id number] cardiac arrest. 8. Abnormal x-ray revealing bibasilar atelectasis, infiltrates. 9. Pneumothorax secondary to CPR.resolved 10. Sternal sternal fracture secondary to CPR. 11. ? Pneumonia positive, gram-negative, gram-positive. Plan . PLAN: T-S trial 24 hrs Clinically consistent with Anoxic encephalopathy Trach 06/26/20, PEG on 06/27/20 Follow CXR/ABG-- reviewed Follow infectious disease recommendations in regards to antibiotics, can dc z osyn .follow cultures no growth to date Follow neurology recs--no new recommendations Follow Cardiology recs-- post cardiac cath 06/25/20-- cath was clean w/ normal filling pressures Continue tube feeding for nutritional support DVT/GI PPX D/W RN and RT Social work for D/C planning --[facility] declined, family would like to give the patient a full 30 days to assess level of recovery before potentially withdrawing care. The patient would not have wanted to live on life support or with a feeding tube for prolonged period of time per family. PT. is FULL CODE ANGELA MORENO MD Jul 05, 2020 10:16
--- NOTE | 2020-07-05 12:48 | PDOC ---
PROGRESS NOTES Date of Service: DATE: 07/05/20 TIME: 12:46 Chief Complaint Chief Complaint POST covid cardiomyopathy acute systolic CHF Severe NICM: EF 25%. No significant CAD per [facility] anoxic brain injury Cardiac arrest with resuscitation and probable pneumonia, sternal fracture and pneumothorax secondary to CPR, leukocytosis, electrolyte disturbance, hypokalemia, lactic acidosis, elevated troponin. History of Present Illness History of Present Illness 07/05, about the same, discussed my previous thoughts again with and son, not following commands, movement is seeming to be mostly reflexive. they still want to cont iwth the 30 days plan to give her a chance to improve. I discussed possible transition to hospice, they want to wait until that time. 07/04-, minmal change, some relfexive movements, had a video of her withdrawing to light touch to face, soem work with PT, not following commands as directed I discussed poor prognosis with at length, that as days go by, her chances for meaningful recovery continue to dim. I discussed consideration of hospice care. 07/03/2020, discussed plan with family at length yesterday Patient seen and examined in the ICU plan LTAC start PT and OT moving around a lot She is still not very responsive but at the same time kind of agitated Vitals Vitals Vital Signs Date Time Temp Pulse Resp B/P (MAP) Pulse Ox O2 Delivery O2 Flow Rate FiO2 07/05/20 11:11 100 Tracheal Collar 8.0 07/05/20 10:00 81 17 136/79 (98) 07/05/20 08:00 100.0 100.0 Physical Exam Physical Exam GENERAL: Opens eyes transiently, does not follow any commands, HEENT: Both pupils are round and reacting. No conjunctival lesion. NECK: Supple. Trach present, erythema and drainage present around trach site improving LUNGS: Decreased breath sounds bilaterally. HEART: S1, S2, regular. No gallop or murmur. ABDOMEN: Soft, nontender. No organomegaly.peg tube + fecal tube , Jolly present EXTREMITIES: No edema or cyanosis. toe amputation of the Rt foot,healed scars SKIN: Unremarkable. NEUROLOGICAL: Opens eyes transiently does not follow any commands General: No acute distress Heart: Regular rate, Normal S1, Normal S2 Lungs: Clear Abdomen: Soft, No hepatosplenomegaly Extremities: No cyanosis Skin: No rashes, No breakdown Labs LABS Laboratory Tests Test 07/05/20 00:09 07/05/20 06:05 Glucose (Fingerstick) 127 mg/dL (70-99) 131 mg/dL (70-99) White Blood Count 12.1 x10^3/uL (4.0-11.0) Red Blood Count 4.31 x10^6/uL (3.50-5.40) Hemoglobin 12.3 g/dL (12.0-15.5) Hematocrit 39.1 % (36.0-47.0) Mean Corpuscular Volume 91 fL (79-100) Mean Corpuscular Hemoglobin 29 pg (25-35) Mean Corpuscular Hemoglobin Concent 32 g/dL (31-37) Red Cell Distribution Width 13.2 % (11.5-14.5) Platelet Count 657 x10^3/uL (140-400) Neutrophils (%) (Auto) 76 % (31-73) Lymphocytes (%) (Auto) 16 % (24-48) Monocytes (%) (Auto) 6 % (0-9) Eosinophils (%) (Auto) 2 % (0-3) Basophils (%) (Auto) 1 % (0-3) Neutrophils # (Auto) 9.1 x10^3/uL (1.8-7.7) Lymphocytes # (Auto) 1.9 x10^3/uL (1.0-4.8) Monocytes # (Auto) 0.7 x10^3/uL (0.0-1.1) Eosinophils # (Auto) 0.3 x10^3/uL (0.0-0.7) Basophils # (Auto) 0.1 x10^3/uL (0.0-0.2) Sodium Level 139 mmol/L (136-145) Potassium Level 3.5 mmol/L (3.5-5.1) Chloride Level 103 mmol/L (98-107) Carbon Dioxide Level 27 mmol/L (21-32) Anion Gap 9 (6-14) Blood Urea Nitrogen 16 mg/dL (7-20) Creatinine 0.6 mg/dL (0.6-1.0) Estimated GFR (Cockcroft-Gault) 103.0 BUN/Creatinine Ratio 27 (6-20) Glucose Level 132 mg/dL (70-99) Calcium Level 9.5 mg/dL (8.5-10.1) Total Bilirubin 0.3 mg/dL (0.2-1.0) Aspartate Amino Transf (AST/SGOT) 30 U/L (15-37) Alanine Aminotransferase (ALT/SGPT) 25 U/L (14-59) Alkaline Phosphatase 101 U/L (46-116) Total Protein 7.4 g/dL (6.4-8.2) Albumin 2.8 g/dL (3.4-5.0) Albumin/Globulin Ratio 0.6 (1.0-1.7) Assessment and Plan Assessmemt and Plan Problems Medical Problems: (1) Cardiac arrest Status: Acute (2) Fracture of ribs, multiple Status: Acute (3) Hyperglycemia Status: Acute (4) Pneumonia Status: Acute (5) Pneumothorax, right Status: Acute (6) Sternal fracture Status: Acute (7) VF (ventricular fibrillation) Status: Acute Comment Review of Relevant I have reviewed the following items afua (where applicable) has been applied. Labs Laboratory Tests Test 07/04/20 00:13 07/04/20 06:23 07/04/20 07:20 07/04/20 08:00 Glucose (Fingerstick) 126 mg/dL (70-99) 103 mg/dL (70-99) Sodium Level 138 mmol/L (136-145) Potassium Level 3.8 mmol/L (3.5-5.1) Chloride Level 102 mmol/L (98-107) Carbon Dioxide Level 28 mmol/L (21-32) Anion Gap 8 (6-14) Blood Urea Nitrogen 14 mg/dL (7-20) Creatinine 0.6 mg/dL (0.6-1.0) Estimated GFR (Cockcroft-Gault) 103.0 Glucose Level 122 mg/dL (70-99) Calcium Level 9.1 mg/dL (8.5-10.1) Phosphorus Level 3.5 mg/dL (2.6-4.7) Magnesium Level 2.2 mg/dL (1.8-2.4) O2 Saturation 98 % (92-99) Arterial Blood pH 7.43 (7.35-7.45) Arterial Blood pCO2 at Patient Temp 33 mmHg (35-46) Arterial Blood pO2 at Patient Temp 108 mmHg (75-108) Arterial Blood HCO3 21 mmol/L (21-28) Arterial Blood Base Excess -2 mmol/L (-3-3) FiO2 40/ps vent Test 07/05/20 00:09 07/05/20 06:05 Glucose (Fingerstick) 127 mg/dL (70-99) 131 mg/dL (70-99) White Blood Count 12.1 x10^3/uL (4.0-11.0) Red Blood Count 4.31 x10^6/uL (3.50-5.40) Hemoglobin 12.3 g/dL (12.0-15.5) Hematocrit 39.1 % (36.0-47.0) Mean Corpuscular Volume 91 fL (79-100) Mean Corpuscular Hemoglobin 29 pg (25-35) Mean Corpuscular Hemoglobin Concent 32 g/dL (31-37) Red Cell Distribution Width 13.2 % (11.5-14.5) Platelet Count 657 x10^3/uL (140-400) Neutrophils (%) (Auto) 76 % (31-73) Lymphocytes (%) (Auto) 16 % (24-48) Monocytes (%) (Auto) 6 % (0-9) Eosinophils (%) (Auto) 2 % (0-3) Basophils (%) (Auto) 1 % (0-3) Neutrophils # (Auto) 9.1 x10^3/uL (1.8-7.7) Lymphocytes # (Auto) 1.9 x10^3/uL (1.0-4.8) Monocytes # (Auto) 0.7 x10^3/uL (0.0-1.1) Eosinophils # (Auto) 0.3 x10^3/uL (0.0-0.7) Basophils # (Auto) 0.1 x10^3/uL (0.0-0.2) Sodium Level 139 mmol/L (136-145) Potassium Level 3.5 mmol/L (3.5-5.1) Chloride Level 103 mmol/L (98-107) Carbon Dioxide Level 27 mmol/L (21-32) Anion Gap 9 (6-14) Blood Urea Nitrogen 16 mg/dL (7-20) Creatinine 0.6 mg/dL (0.6-1.0) Estimated GFR (Cockcroft-Gault) 103.0 BUN/Creatinine Ratio 27 (6-20) Glucose Level 132 mg/dL (70-99) Calcium Level 9.5 mg/dL (8.5-10.1) Total Bilirubin 0.3 mg/dL (0.2-1.0) Aspartate Amino Transf (AST/SGOT) 30 U/L (15-37) Alanine Aminotransferase (ALT/SGPT) 25 U/L (14-59) Alkaline Phosphatase 101 U/L (46-116) Total Protein 7.4 g/dL (6.4-8.2) Albumin 2.8 g/dL (3.4-5.0) Albumin/Globulin Ratio 0.6 (1.0-1.7) Laboratory Tests Test 07/05/20 00:09 07/05/20 06:05 Glucose (Fingerstick) 127 mg/dL (70-99) 131 mg/dL (70-99) White Blood Count 12.1 x10^3/uL (4.0-11.0) Red Blood Count 4.31 x10^6/uL (3.50-5.40) Hemoglobin 12.3 g/dL (12.0-15.5) Hematocrit 39.1 % (36.0-47.0) Mean Corpuscular Volume 91 fL (79-100) Mean Corpuscular Hemoglobin 29 pg (25-35) Mean Corpuscular Hemoglobin Concent 32 g/dL (31-37) Red Cell Distribution Width 13.2 % (11.5-14.5) Platelet Count 657 x10^3/uL (140-400) Neutrophils (%) (Auto) 76 % (31-73) Lymphocytes (%) (Auto) 16 % (24-48) Monocytes (%) (Auto) 6 % (0-9) Eosinophils (%) (Auto) 2 % (0-3) Basophils (%) (Auto) 1 % (0-3) Neutrophils # (Auto) 9.1 x10^3/uL (1.8-7.7) Lymphocytes # (Auto) 1.9 x10^3/uL (1.0-4.8) Monocytes # (Auto) 0.7 x10^3/uL (0.0-1.1) Eosinophils # (Auto) 0.3 x10^3/uL (0.0-0.7) Basophils # (Auto) 0.1 x10^3/uL (0.0-0.2) Sodium Level 139 mmol/L (136-145) Potassium Level 3.5 mmol/L (3.5-5.1) Chloride Level 103 mmol/L (98-107) Carbon Dioxide Level 27 mmol/L (21-32) Anion Gap 9 (6-14) Blood Urea Nitrogen 16 mg/dL (7-20) Creatinine 0.6 mg/dL (0.6-1.0) Estimated GFR (Cockcroft-Gault) 103.0 BUN/Creatinine Ratio 27 (6-20) Glucose Level 132 mg/dL (70-99) Calcium Level 9.5 mg/dL (8.5-10.1) Total Bilirubin 0.3 mg/dL (0.2-1.0) Aspartate Amino Transf (AST/SGOT) 30 U/L (15-37) Alanine Aminotransferase (ALT/SGPT) 25 U/L (14-59) Alkaline Phosphatase 101 U/L (46-116) Total Protein 7.4 g/dL (6.4-8.2) Albumin 2.8 g/dL (3.4-5.0) Albumin/Globulin Ratio 0.6 (1.0-1.7) Microbiology 06/30/20 Gram Stain - Final, Resulted 06/30/20 Aerobic and Anaerobic Culture - Preliminary, Resulted 06/17/20 Blood Culture - Final, Complete NO GROWTH AFTER 5 DAYS Medications Current Medications Amiodarone HCl 150 mg/Dextrose 103 ml @ 618 mls/hr 1X ONCE IV Last administered on 06/17/20at 07:00; Start 06/17/20 at 07:00; Stop 06/17/20 at 07:09; Status DC Amiodarone HCl 450 mg/Dextrose 259 ml @ 33 mls/hr 1X ONCE IV ; Start 06/17/20 at 07:00; Stop 06/17/20 at 14:50; Status DC Sodium Chloride 1,000 ml @ 1,000 mls/hr 1X ONCE IV Last administered on 06/17/20at 08:11; Start 06/17/20 at 07:15; Stop 06/17/20 at 08:14; Status DC Midazolam HCl 100 ml @ 0 mls/hr 1X ONCE IV ; Start 06/17/20 at 07:15; Stop 06/17/20 at 07:16; Status DC Midazolam HCl (Versed) 5 mg STK-MED ONCE .ROUTE ; Start 06/17/20 at 07:17; Stop 06/17/20 at 07:17; Status DC Iohexol (Omnipaque 300 Mg/ml) 75 ml 1X ONCE IV Last administered on 06/17/20at 08:17; Start 06/17/20 at 08:15; Stop 06/17/20 at 08:16; Status DC Iohexol (Omnipaque 350 Mg/ml) 100 ml 1X ONCE IV Last administered on 06/17/20at 08:17; Start 06/17/20 at 08:15; Stop 06/17/20 at 08:16; Status DC Info (CONTRAST GIVEN -- Rx MONITORING) 1 each PRN DAILY PRN MC SEE COMMENTS; Start 06/17/20 at 08:15; Stop 06/19/20 at 08:14; Status DC Sodium Chloride 1,000 ml @ 1,000 mls/hr 1X ONCE IV Last administered on 06/17/20at 08:25; Start 06/17/20 at 08:15; Stop 06/17/20 at 09:14; Status DC Potassium Chloride/Water 100 ml @ 50 mls/hr 1X ONCE IV Last administered on 06/17/20at 10:16; Start 06/17/20 at 09:00; Stop 06/17/20 at 10:59; Status DC Piperacillin Sod/ Tazobactam Sod (Zosyn Per Pharmacy) 1 each PRN DAILY PRN MC SEE COMMENTS; Start 06/17/20 at 08:45; Stop 06/27/20 at 11:36; Status DC Piperacillin Sod/ Tazobactam Sod 4.5 gm/Sodium Chloride 100 ml @ 200 mls/hr 1X ONCE IV Last administered on 06/17/20at 10:15; Start 06/17/20 at 08:45; Stop 06/17/20 at 09:14; Status DC Sodium Chloride 1,000 ml @ 125 mls/hr Q8H IV Last administered on 06/17/20at 23:39; Start 06/17/20 at 09:00; Stop 06/18/20 at 08:59; Status DC Propofol (Diprivan) 200 mg 1X ONCE IV Last administered on 06/17/20at 09:00; Start 06/17/20 at 09:00; Stop 06/17/20 at 09:01; Status DC Propofol 100 ml @ As Directed STK-MED ONCE IV ; Start 06/17/20 at 09:05; Stop 06/17/20 at 09:05; Status DC Lidocaine HCl (Lidocaine 1% 20ml Vial) 20 ml 1X ONCE INJ Last administered on 06/17/20at 09:15; Start 06/17/20 at 09:15; Stop 06/17/20 at 09:20; Status DC Lidocaine HCl (Xylocaine-Mpf 1% 5ml Vial) 5 ml STK-MED ONCE .ROUTE ; Start 06/17/20 at 09:26; Stop 06/17/20 at 09:26; Status DC Sodium Chloride 1,000 ml @ 1,000 mls/hr 1X ONCE IV Last administered on 06/17/20at 10:15; Start 06/17/20 at 10:15; Stop 06/17/20 at 11:14; Status DC Propofol 100 ml @ 3.819 mls/ hr CONT PRN IV PER PROTOCOL Last administered on 06/25/20at 06:12; Start 06/17/20 at 10:45; Stop 06/29/20 at 11:47; Status DC Fentanyl Citrate (Fentanyl 2ml Vial) 100 mcg 1X ONCE IV ; Start 06/17/20 at 12:00; Stop 06/17/20 at 12:39; Status DC Midazolam HCl (Versed) 2 mg 1X ONCE IV ; Start 06/17/20 at 12:00; Stop 06/17/20 at 12:39; Status DC Magnesium Sulfate/ Dextrose 100 ml @ 100 mls/hr 1X ONCE IV Last administered on 06/17/20at 12:22; Start 06/17/20 at 12:00; Stop 06/17/20 at 12:39; Status DC Buspirone HCl (Buspar) 30 mg Q8H NG Last administered on 06/17/20at 12:31; Start 06/17/20 at 12:00; Stop 06/17/20 at 12:39; Status DC Glycerin/ Hypromellose/ Polyethylene (Artificial Tears) 1 drop Q6HRS OU ; Start 06/17/20 at 12:00; Stop 06/17/20 at 12:39; Status DC Glycerin/ Hypromellose/ Polyethylene (Artificial Tears) 1 drop PRN Q15MIN PRN OU DRY EYE; Start 06/17/20 at 12:00; Stop 06/17/20 at 12:39; Status DC Heparin Sodium (Porcine) (Heparin Sodium) 5,000 unit BID SQ ; Start 06/17/20 at 21:00; Stop 06/17/20 at 12:39; Status DC Pantoprazole Sodium (PROTONIX VIAL for IV PUSH) 40 mg DAILY IVP ; Start 06/18/20 at 09:00; Stop 06/17/20 at 12:39; Status DC Fentanyl Citrate 30 ml @ 0 mls/hr CONT PRN IV PER PROTOCOL.; Start 06/17/20 at 12:00; Stop 06/17/20 at 12:39; Status DC Propofol 100 ml @ 0 mls/hr CONT PRN IV PER PROTOCOL.; Start 06/17/20 at 12:00; Stop 06/17/20 at 12:39; Status DC Midazolam HCl 100 ml @ 0 mls/hr CONT PRN IV PER PROTOCOL; Start 06/17/20 at 12:00; Stop 06/17/20 at 12:39; Status DC Vecuronium [place] (Norcuron Bolus) 10 mg PRN Q1HR PRN IV SHIVERING; Start 06/17/20 at 12:00; Stop 06/17/20 at 12:39; Status DC Piperacillin Sod/ Tazobactam Sod 4.5 gm/Sodium Chloride 100 ml @ 200 mls/hr 1X ONCE IV ; Start 06/17/20 at 12:15; Stop 06/17/20 at 12:44; Status Cancel Midazolam HCl (Versed) 5 mg Q1HR PRN IV SEDATION Last administered on 06/29/20at 13:48; Start 06/17/20 at 12:45 Fentanyl Citrate (Fentanyl 2ml Vial) 100 mcg Q1HR IVP Last administered on 06/17/20at 18:55; Start 06/17/20 at 13:00; Stop 06/17/20 at 23:41; Status DC Piperacillin Sod/ Tazobactam Sod 3.375 gm/Sodium Chloride 50 ml @ 100 mls/hr Q6H IV Last administered on 06/27/20at 05:31; Start 06/17/20 at 16:00; Stop 06/27/20 at 11:30; Status DC Potassium Bicarbonate (Potassium Effervescent Tablet) 40 meq 1X ONCE NG Last administered on 06/18/20at 10:00; Start 06/18/20 at 09:45; Stop 06/18/20 at 09:48; Status DC Albuterol/ Ipratropium (Duoneb) 3 ml RTQID NEB Last administered on 07/05/20at 11:11; Start 06/18/20 at 20:00 Famotidine (Pepcid Vial) 20 mg BID IVP Last administered on 07/02/20at 08:05; Start 06/18/20 at 21:00; Stop 07/02/20 at 10:23; Status DC Enoxaparin Sodium (Lovenox 40mg Syringe) 40 mg Q24H SQ Last administered on 07/04/20at 21:10; Start 06/18/20 at 21:00 Levothyroxine Sodium (Synthroid) 75 mcg DAILY06 PO Last administered on 07/05/20at 06:01; Start 06/18/20 at 21:00 Fentanyl Citrate 30 ml @ 0 mls/hr CONT PRN IV SEE PROTOCOL Last administered on 06/28/20at 04:56; Start 06/18/20 at 20:15; Stop 06/29/20 at 11:47; Status DC Carvedilol (Coreg) 3.125 mg BIDWMEALS PO Last administered on 07/05/20at 08:05; Start 06/19/20 at 17:00 Atorvastatin Calcium (Lipitor) 20 mg QHS PO Last administered on 07/04/20at 21:09; Start 06/19/20 at 21:00 Aspirin (Aspirin Chewable) 81 mg [id number] PO Last administered on 07/05/20at 08:06; Start 06/20/20 at 08:00 Aspirin (Aspirin Chewable) 81 mg 1X ONCE PO Last administered on 06/19/20at 15:57; Start 06/19/20 at 15:30; Stop 06/19/20 at 15:37; Status DC Potassium Chloride/Water 100 ml @ 100 mls/hr 1X ONCE IV Last administered on 06/19/20at 15:57; Start 06/19/20 at 15:30; Stop 06/19/20 at 16:29; Status DC Amiodarone HCl (Cordarone) 400 mg DAILY PO Last administered on 07/05/20at 08:05; Start 06/20/20 at 09:00 Furosemide (Lasix) 40 mg 1X ONCE IVP Last administered on 06/20/20at 14:38; Start 06/20/20 at 13:30; Stop 06/20/20 at 13:31; Status DC Potassium Chloride/Water 100 ml @ 100 mls/hr 1X ONCE IV Last administered on 06/20/20at 14:39; Start 06/20/20 at 13:30; Stop 06/20/20 at 14:29; Status DC Dexmedetomidine HCl 400 mcg/ Sodium Chloride 100 ml @ 0 mls/hr CONT PRN IV PER PROTOCOL Last administered on 06/29/20at 06:11; Start 06/21/20 at 10:45; Stop 06/29/20 at 11:47; Status DC Sodium Chloride 500 ml @ 500 mls/hr 1X PRN PRN IV SEE COMMENTS; Start 06/21/20 at 10:45 Atropine Sulfate (ATROPINE 0.5mg SYRINGE) 0.5 mg PRN Q5MIN PRN IV SEE COMMENTS; Start 06/21/20 at 10:45; Stop 06/29/20 at 11:47; Status DC Fentanyl Citrate (Fentanyl 2ml Vial) 50 mcg PRN Q2HR PRN IVP PAIN Last administered on 07/03/20at 04:14; Start 06/23/20 at 16:45 Midazolam HCl 100 ml @ 0 mls/hr CONT PRN IV SEE PROTOCOL Last administered on 06/28/20at 03:00; Start 06/25/20 at 11:45; Stop 06/29/20 at 11:47; Status DC Lidocaine HCl (Xylocaine-Mpf 1% 2ml Vial) 2 ml STK-MED ONCE .ROUTE ; Start 06/25/20 at 14:21; Stop 06/25/20 at 14:21; Status DC Iohexol (Omnipaque 300 Mg/ml) 100 ml STK-MED ONCE .ROUTE ; Start 06/25/20 at 14:21; Stop 06/25/20 at 14:21; Status DC Heparin Sodium/ Sodium Chloride 1,000 ml @ As Directed STK-MED ONCE .ROUTE ; Start 06/25/20 at 14:21; Stop 06/25/20 at 14:21; Status DC Heparin Sodium (Porcine) (Heparin Sodium) 10,000 unit STK-MED ONCE .ROUTE ; Start 06/25/20 at 14:31; Stop 06/25/20 at 14:31; Status DC Verapamil HCl (Verapamil) 5 mg STK-MED ONCE .ROUTE ; Start 06/25/20 at 14:31; Stop 06/25/20 at 14:31; Status DC Nitroglycerin (Nitroglycerin) 200 mcg STK-MED ONCE .ROUTE ; Start 06/25/20 at 14:31; Stop 06/25/20 at 14:31; Status DC Nitroglycerin (Nitroglycerin) 200 mcg 1X ONCE IART Last administered on 06/25/20at 15:09; Start 06/25/20 at 15:15; Stop 06/25/20 at 15:16; Status DC Verapamil HCl (Verapamil) 2.5 mg 1X ONCE IART Last administered on 06/25/20at 15:09; Start 06/25/20 at 15:15; Stop 06/25/20 at 15:16; Status DC Heparin Sodium (Porcine) (Heparin Sodium) 2,500 unit 1X ONCE IART Last administered on 06/25/20at 15:09; Start 06/25/20 at 15:15; Stop 06/25/20 at 15:16; Status DC Heparin Sodium/ Sodium Chloride (HEPARIN for ARTERIAL LINE FLUSH) 1,000 unit 1X ONCE IART Last administered on 06/25/20at 15:09; Start 06/25/20 at 15:15; Stop 06/25/20 at 15:16; Status DC Iohexol (Omnipaque 300 Mg/ml) 30 ml 1X ONCE IART Last administered on 06/25/20at 15:09; Start 06/25/20 at 15:15; Stop 06/25/20 at 15:16; Status DC Lidocaine HCl (Xylocaine-Mpf 1% 2ml Vial) 2 ml 1X ONCE INJ Last administered on 06/25/20at 15:09; Start 06/25/20 at 15:15; Stop 06/25/20 at 15:16; Status DC Amino Acids/ Glycerin/ Electrolytes 1,000 ml @ 80 mls/hr [id number] IV Last administered on 06/27/20at 20:50; Start 06/25/20 at 17:30; Stop 06/28/20 at 11:35; Status DC Potassium Chloride/Water 100 ml @ 100 mls/hr Q1H IV Last administered on 06/25/20at 18:46; Start 06/25/20 at 18:00; Stop 06/25/20 at 19:59; Status DC Rocuronium [place] (Zemuron) 50 mg STK-MED ONCE .ROUTE ; Start 06/26/20 at 11:37; Stop 06/26/20 at 11:38; Status DC Cellulose (Surgicel Fibrillar 1x2) 1 each STK-MED ONCE .ROUTE Last administered on 06/26/20at 13:20; Start 06/26/20 at 12:19; Stop 06/26/20 at 12:19; Status DC Bupivacaine HCl (Sensorcaine Mpf 0.5%) 30 ml STK-MED ONCE .ROUTE ; Start 06/26/20 at 12:19; Stop 06/26/20 at 12:19; Status DC Ondansetron HCl (Zofran) 4 mg STK-MED ONCE .ROUTE ; Start 06/26/20 at 13:13; Stop 06/26/20 at 13:13; Status DC Dexamethasone Sodium Phosphate (Decadron) 4 mg STK-MED ONCE .ROUTE ; Start 06/26/20 at 13:13; Stop 06/26/20 at 13:14; Status DC Cellulose (Surgicel Fibrillar 1x2) 1 each STK-MED ONCE .ROUTE Last administered on 06/26/20at 13:22; Start 06/26/20 at 13:25; Stop 06/26/20 at 13:25; Status DC Sevoflurane (Ultane) 30 ml STK-MED ONCE IH ; Start 06/26/20 at 13:37; Stop 06/26/20 at 13:38; Status DC Propofol (Diprivan) 200 mg STK-MED ONCE IV ; Start 06/26/20 at 13:38; Stop 06/26/20 at 13:38; Status DC Ringer's Solution 1,000 ml @ 30 mls/hr Q24H IV Last administered on 06/27/20at 08:39; Start 06/27/20 at 07:00; Stop 06/27/20 at 18:59; Status DC Prochlorperazine Edisylate (Compazine) 5 mg PACU PRN PRN IV NAUSEA, MRX1; Start 06/27/20 at 07:00; Stop 06/28/20 at 06:59; Status DC Propofol (Diprivan) 200 mg STK-MED ONCE IV ; Start 06/27/20 at 09:53; Stop 06/27/20 at 09:54; Status DC Lidocaine HCl (Lidocaine Pf 2% Vial) 5 ml STK-MED ONCE .ROUTE ; Start 06/27/20 at 09:54; Stop 06/27/20 at 09:54; Status DC Lisinopril (Prinivil) 5 mg DAILY PO Last administered on 07/04/20at 09:23; Start 06/29/20 at 09:00; Stop 07/04/20 at 14:46; Status DC Acetaminophen/ Hydrocodone Bitart (Lortab 7.5-325/ 15ml Oral Solution) 10 ml 1X ONCE PEG Last administered on 06/28/20at 12:37; Start 06/28/20 at 12:30; Stop 06/28/20 at 12:31; Status DC Piperacillin Sod/ Tazobactam Sod 3.375 gm/Sodium Chloride 50 ml @ 100 mls/hr Q6HRS IV Last administered on 07/05/20at 12:31; Start 06/29/20 at 10:00 Vecuronium [place] (Norcuron Bolus) 10 mg STK-MED ONCE IV ; Start 06/29/20 at 14:31; Stop 06/29/20 at 14:31; Status DC Propofol 100 ml @ 0 mls/hr CONT PRN IV PER PROTOCOL Last administered on 07/02/20at 07:26; Start 06/29/20 at 16:30 Vecuronium [place] (Norcuron Bolus) 10 mg 1X ONCE IV Last administered on 06/29/20at 14:31; Start 06/29/20 at 14:31; Stop 06/29/20 at 17:19; Status DC Daptomycin 400 mg/ Sodium Chloride 50 ml @ 100 mls/hr Q24H IV Last administered on 07/04/20at 09:25; Start 06/30/20 at 10:00; Stop 07/05/20 at 08:14; Status DC Famotidine (Pepcid) 20 mg QHS GT Last administered on 07/04/20at 21:09; Start 07/02/20 at 21:00 Haloperidol Lactate (Haldol Inj) 5 mg Q8HRS IVP Last administered on 07/03/20at 06:00; Start 07/02/20 at 14:00; Stop 07/03/20 at 12:40; Status DC Micafungin Sodium 100 mg/Dextrose 100 ml @ 100 mls/hr Q24H IV Last administered on 07/05/20at 08:04; Start 07/03/20 at 09:00; Stop 07/05/20 at 08: 14; Status DC Alteplase, Recombinant (Cathflo For Central Catheter Clearance) 1 mg 1X ONCE INT CAT Last administered on 07/03/20at 08:45; Start 07/03/20 at 08:45; Stop 07/03/20 at 08:46; Status DC Haloperidol Lactate (Haldol Inj) 2.5 mg PRN Q6HRS PRN IVP AGITATION; Start 07/03/20 at 12:30; Stop 07/03/20 at 12:40; Status DC Haloperidol Lactate (Haldol Inj) 2.5 mg PRN Q6HRS PRN IVP AGITATION Last administered on 07/04/20at 01:04; Start 07/03/20 at 14:00; Stop 07/04/20 at 08:04; Status DC Haloperidol Lactate (Haldol Inj) 2.5 mg Q8HRS IVP ; Start 07/04/20 at 10:00; Stop 07/04/20 at 08:15; Status DC Haloperidol Lactate (Haldol Inj) 2.5 mg PRN Q8HRS PRN IVP AGITATION; Start 07/04/20 at 08:15; Stop 07/05/20 at 10:35; Status DC Lisinopril (Prinivil) 20 mg BID PO Last administered on 07/05/20at 08:06; Start 07/04/20 at 21:00 Haloperidol (Haldol) 0.5 mg PRN Q8HRS PRN PO AGITATION; Start 07/05/20 at 10:45 Active Scripts Active Reported Acetaminophen-Diphenhyd 500-25 (Acetaminophen/Diphenhydramine) 1 Each Tablet 1 Each PO HS PRN Naproxen 500 Mg Tablet 1 Tab PO BID PRN 30 Days Tramadol Hcl 50 Mg Tablet 50 Mg PO Q4HRS Levothyroxine Sodium 75 Mcg Tablet 1 Tab PO DAILY Adderall 20 Mg Tablet (Dextroamphetamine/Amphetamine) 20 Mg Tablet 1 Tab PO DAILY MDD 1 Tablet(s) 5 Days Prozac (Fluoxetine Hcl) 20 Mg Capsule 1 Cap PO [id number] Vitals/I & O Vital Sign - Last 24 Hours 07/04/20 07/04/20 07/04/20 07/04/20 13:08 14:26 15:08 16:25 Pulse 85 92 72 90 Resp 26 24 24 24 B/P (MAP) 161/84 (109) 153/84 (107) 139/63 (88) 114/64 (81) Pulse Ox 98 98 97 97 O2 Delivery trach shield trach shield trach shield trach shield 07/04/20 07/04/20 07/04/20 07/04/20 16:27 17:29 18:15 18:26 Pulse 113 105 105 Resp 20 B/P (MAP) 136/79 (98) 136/84 (101) 136/84 Pulse Ox 97 97 96 O2 Delivery Tracheal Collar trach shield trach shield O2 Flow Rate 8.0 07/04/20 07/04/20 07/04/20 07/04/20 19:00 20:00 20:00 20:15 Temp 98.8 98.8 Pulse 112 96 Resp 20 B/P (MAP) 140/97 (111) 144/81 (102) Pulse Ox 97 96 96 O2 Delivery Tracheal Collar Trach Collar Tracheal Collar Tracheal Collar O2 Flow Rate 8.0 07/04/20 07/04/20 07/04/20 07/04/20 21:00 21:10 22:00 23:00 Pulse 90 90 98 92 Resp B/P (MAP) 155/81 (105) 155/81 149/93 (111) 105/65 (78) Pulse Ox 96 96 96 O2 Delivery Tracheal Collar Tracheal Collar Tracheal Collar 07/04/20 07/04/20 07/05/20 07/05/20 23:59 23:59 01:00 02:00 Temp 99.9 99.9 Pulse 97 104 96 Resp B/P (MAP) 126/82 (97) 155/82 (106) 154/79 (104) Pulse Ox 97 98 100 O2 Delivery Tracheal Collar Trach Collar Tracheal Collar Tracheal Collar 07/05/20 07/05/20 07/05/2021/21 03:00 04:00 04:00 05:00 Temp 99.2 99.2 Pulse 95 92 99 Resp 22 24 B/P (MAP) 117/83 (94) 150/85 (106) 132/74 (93) Pulse Ox 100 100 100 O2 Delivery Tracheal Collar Tracheal Collar Trach Collar Tracheal Collar 07/05/20 07/05/20 07/05/20 07/05/20 06:00 07:00 08:00 08:00 Temp 100.0 100.0 Pulse 94 101 104 Resp 20 22 17 B/P (MAP) 131/75 (93) 112/73 (86) 128/73 (91) Pulse Ox 100 100 O2 Delivery Tracheal Collar Tracheal Collar Trach Collar Tracheal Collar O2 Flow Rate 8.0 8.0 07/05/20 07/05/20 07/05/20 07/05/20 08:05 08:05 08:06 08:06 Pulse 94 94 94 B/P (MAP) 128/73 128/92 128/73 Pulse Ox 96 O2 Delivery Tracheal Collar O2 Flow Rate 8.0 07/05/20 07/05/20 07/05/20 09:00 10:00 11:11 Pulse 86 81 Resp 16 17 B/P (MAP) 149/84 (105) 136/79 (98) Pulse Ox 100 100 100 O2 Delivery Tracheal Collar Tracheal Collar Tracheal Collar O2 Flow Rate 8.0 8.0 8.0 Intake and Output 07/04/20 07/04/20 07/05/20 15:00 23:00 07:00 Intake Total 250 ml 1132 ml 1151 ml Output Total 835 ml 1380 ml 820 ml Balance -585 ml -248 ml 331 ml Justicifation of Admission Dx: Justifications for Admission: Justification of Admission Dx: N/A ERIKA CHEUNG MD Jul 05, 2020 12:47
--- NOTE | 2020-07-05 13:20 | NUR ---
SS following up with discharge planning. SS received phone contact from [facility], ; fax [phone], requesting updated clinicals. [place] reported that they are submitting for authorization and are waiting to here from pt's insurance. SS phoned and faxed clinical updates as requested. [facility], notified. SS will continue to follow for discharge planning.
--- NOTE | 2020-07-05 14:20 | PDOC ---
PROGRESS NOTES Date of Service DATE: 07/05/20 TIME: 14:19 Assessment Problems Medical Problems: (1) Cardiac arrest Status: Acute (2) Fracture of ribs, multiple Status: Acute (3) Hyperglycemia Status: Acute (4) Pneumonia Status: Acute (5) Pneumothorax, right Status: Acute (6) Sternal fracture Status: Acute (7) VF (ventricular fibrillation) Status: Acute Anoxic encephalopathy, ventricular fibrillation and asystole, improving, but not making much more progress Negative for Covid Status-post trach and PEG Trialed off vent 06/28 Plan Haldol as needed Supportive care Holding on additional neurological tests Family wants to try 1 month at [place] Discussed with Subjective None Objective Vital Signs Date Time Temp Pulse Resp B/P (MAP) Pulse Ox O2 Delivery O2 Flow Rate FiO2 07/05/20 13:00 80 15 133/74 (93) 100 Nasal Cannula 8.0 07/05/20 08:00 100.0 100.0 Intake and Output 07/05/20 07:00 Intake Total 2533 ml Output Total 3035 ml Balance -502 ml Tube Feeding 1783 ml Other 750 ml Output Urine Total 2935 ml Stool Total 100 ml Gastric Drainage Total 0 ml PHYSICAL EXAM On ventilator PERRL. EOMI. CN: no focal findings. Muscle tone: normal. Muscle strength: Moving arms and legs,not thrusting tongue DTR: 1+ Plantar reflex: Flexor Gait: not examined. Sensory exam: Not cooperative Cerebellar: Not cooperative Review of Relevant I have reviewed the following items afua (where applicable) has been applied. Labs Laboratory Tests Test 07/04/20 00:13 07/04/20 06:23 07/04/20 07:20 07/04/20 08:00 Glucose (Fingerstick) 126 mg/dL (70-99) 103 mg/dL (70-99) Sodium Level 138 mmol/L (136-145) Potassium Level 3.8 mmol/L (3.5-5.1) Chloride Level 102 mmol/L (98-107) Carbon Dioxide Level 28 mmol/L (21-32) Anion Gap 8 (6-14) Blood Urea Nitrogen 14 mg/dL (7-20) Creatinine 0.6 mg/dL (0.6-1.0) Estimated GFR (Cockcroft-Gault) 103.0 Glucose Level 122 mg/dL (70-99) Calcium Level 9.1 mg/dL (8.5-10.1) Phosphorus Level 3.5 mg/dL (2.6-4.7) Magnesium Level 2.2 mg/dL (1.8-2.4) O2 Saturation 98 % (92-99) Arterial Blood pH 7.43 (7.35-7.45) Arterial Blood pCO2 at Patient Temp 33 mmHg (35-46) Arterial Blood pO2 at Patient Temp 108 mmHg (75-108) Arterial Blood HCO3 21 mmol/L (21-28) Arterial Blood Base Excess -2 mmol/L (-3-3) FiO2 40/ps vent Test 07/05/20 00:09 07/05/20 06:05 07/05/20 13:02 Glucose (Fingerstick) 127 mg/dL (70-99) 131 mg/dL (70-99) 104 mg/dL (70-99) White Blood Count 12.1 x10^3/uL (4.0-11.0) Red Blood Count 4.31 x10^6/uL (3.50-5.40) Hemoglobin 12.3 g/dL (12.0-15.5) Hematocrit 39.1 % (36.0-47.0) Mean Corpuscular Volume 91 fL (79-100) Mean Corpuscular Hemoglobin 29 pg (25-35) Mean Corpuscular Hemoglobin Concent 32 g/dL (31-37) Red Cell Distribution Width 13.2 % (11.5-14.5) Platelet Count 657 x10^3/uL (140-400) Neutrophils (%) (Auto) 76 % (31-73) Lymphocytes (%) (Auto) 16 % (24-48) Monocytes (%) (Auto) 6 % (0-9) Eosinophils (%) (Auto) 2 % (0-3) Basophils (%) (Auto) 1 % (0-3) Neutrophils # (Auto) 9.1 x10^3/uL (1.8-7.7) Lymphocytes # (Auto) 1.9 x10^3/uL (1.0-4.8) Monocytes # (Auto) 0.7 x10^3/uL (0.0-1.1) Eosinophils # (Auto) 0.3 x10^3/uL (0.0-0.7) Basophils # (Auto) 0.1 x10^3/uL (0.0-0.2) Sodium Level 139 mmol/L (136-145) Potassium Level 3.5 mmol/L (3.5-5.1) Chloride Level 103 mmol/L (98-107) Carbon Dioxide Level 27 mmol/L (21-32) Anion Gap 9 (6-14) Blood Urea Nitrogen 16 mg/dL (7-20) Creatinine 0.6 mg/dL (0.6-1.0) Estimated GFR (Cockcroft-Gault) 103.0 BUN/Creatinine Ratio 27 (6-20) Glucose Level 132 mg/dL (70-99) Calcium Level 9.5 mg/dL (8.5-10.1) Total Bilirubin 0.3 mg/dL (0.2-1.0) Aspartate Amino Transf (AST/SGOT) 30 U/L (15-37) Alanine Aminotransferase (ALT/SGPT) 25 U/L (14-59) Alkaline Phosphatase 101 U/L (46-116) Total Protein 7.4 g/dL (6.4-8.2) Albumin 2.8 g/dL (3.4-5.0) Albumin/Globulin Ratio 0.6 (1.0-1.7) Laboratory Tests Test 07/05/20 00:09 07/05/20 06:05 07/05/20 13:02 Glucose (Fingerstick) 127 mg/dL (70-99) 131 mg/dL (70-99) 104 mg/dL (70-99) White Blood Count 12.1 x10^3/uL (4.0-11.0) Red Blood Count 4.31 x10^6/uL (3.50-5.40) Hemoglobin 12.3 g/dL (12.0-15.5) Hematocrit 39.1 % (36.0-47.0) Mean Corpuscular Volume 91 fL (79-100) Mean Corpuscular Hemoglobin 29 pg (25-35) Mean Corpuscular Hemoglobin Concent 32 g/dL (31-37) Red Cell Distribution Width 13.2 % (11.5-14.5) Platelet Count 657 x10^3/uL (140-400) Neutrophils (%) (Auto) 76 % (31-73) Lymphocytes (%) (Auto) 16 % (24-48) Monocytes (%) (Auto) 6 % (0-9) Eosinophils (%) (Auto) 2 % (0-3) Basophils (%) (Auto) 1 % (0-3) Neutrophils # (Auto) 9.1 x10^3/uL (1.8-7.7) Lymphocytes # (Auto) 1.9 x10^3/uL (1.0-4.8) Monocytes # (Auto) 0.7 x10^3/uL (0.0-1.1) Eosinophils # (Auto) 0.3 x10^3/uL (0.0-0.7) Basophils # (Auto) 0.1 x10^3/uL (0.0-0.2) Sodium Level 139 mmol/L (136-145) Potassium Level 3.5 mmol/L (3.5-5.1) Chloride Level 103 mmol/L (98-107) Carbon Dioxide Level 27 mmol/L (21-32) Anion Gap 9 (6-14) Blood Urea Nitrogen 16 mg/dL (7-20) Creatinine 0.6 mg/dL (0.6-1.0) Estimated GFR (Cockcroft-Gault) 103.0 BUN/Creatinine Ratio 27 (6-20) Glucose Level 132 mg/dL (70-99) Calcium Level 9.5 mg/dL (8.5-10.1) Total Bilirubin 0.3 mg/dL (0.2-1.0) Aspartate Amino Transf (AST/SGOT) 30 U/L (15-37) Alanine Aminotransferase (ALT/SGPT) 25 U/L (14-59) Alkaline Phosphatase 101 U/L (46-116) Total Protein 7.4 g/dL (6.4-8.2) Albumin 2.8 g/dL (3.4-5.0) Albumin/Globulin Ratio 0.6 (1.0-1.7) Microbiology 06/30/20 Gram Stain - Final, Resulted 06/30/20 Aerobic and Anaerobic Culture - Preliminary, Resulted 06/17/20 Blood Culture - Final, Complete NO GROWTH AFTER 5 DAYS Medications Current Medications Amiodarone HCl 150 mg/Dextrose 103 ml @ 618 mls/hr 1X ONCE IV Last administered on 06/17/20at 07:00; Start 06/17/20 at 07:00; Stop 06/17/20 at 07:09; Status DC Amiodarone HCl 450 mg/Dextrose 259 ml @ 33 mls/hr 1X ONCE IV ; Start 06/17/20 at 07:00; Stop 06/17/20 at 14:50; Status DC Sodium Chloride 1,000 ml @ 1,000 mls/hr 1X ONCE IV Last administered on 06/17/20at 08:11; Start 06/17/20 at 07:15; Stop 06/17/20 at 08:14; Status DC Midazolam HCl 100 ml @ 0 mls/hr 1X ONCE IV ; Start 06/17/20 at 07:15; Stop 06/17/20 at 07:16; Status DC Midazolam HCl (Versed) 5 mg STK-MED ONCE .ROUTE ; Start 06/17/20 at 07:17; Stop 06/17/20 at 07:17; Status DC Iohexol (Omnipaque 300 Mg/ml) 75 ml 1X ONCE IV Last administered on 06/17/20at 08:17; Start 06/17/20 at 08:15; Stop 06/17/20 at 08:16; Status DC Iohexol (Omnipaque 350 Mg/ml) 100 ml 1X ONCE IV Last administered on 06/17/20at 08:17; Start 06/17/20 at 08:15; Stop 06/17/20 at 08:16; Status DC Info (CONTRAST GIVEN -- Rx MONITORING) 1 each PRN DAILY PRN MC SEE COMMENTS; Start 06/17/20 at 08:15; Stop 06/19/20 at 08:14; Status DC Sodium Chloride 1,000 ml @ 1,000 mls/hr 1X ONCE IV Last administered on 06/17/20at 08:25; Start 06/17/20 at 08:15; Stop 06/17/20 at 09:14; Status DC Potassium Chloride/Water 100 ml @ 50 mls/hr 1X ONCE IV Last administered on 06/17/20at 10:16; Start 06/17/20 at 09:00; Stop 06/17/20 at 10:59; Status DC Piperacillin Sod/ Tazobactam Sod (Zosyn Per Pharmacy) 1 each PRN DAILY PRN MC SEE COMMENTS; Start 06/17/20 at 08:45; Stop 06/27/20 at 11:36; Status DC Piperacillin Sod/ Tazobactam Sod 4.5 gm/Sodium Chloride 100 ml @ 200 mls/hr 1X ONCE IV Last administered on 06/17/20at 10:15; Start 06/17/20 at 08:45; Stop 06/17/20 at 09:14; Status DC Sodium Chloride 1,000 ml @ 125 mls/hr Q8H IV Last administered on 06/17/20at 23:39; Start 06/17/20 at 09:00; Stop 06/18/20 at 08:59; Status DC Propofol (Diprivan) 200 mg 1X ONCE IV Last administered on 06/17/20at 09:00; Start 06/17/20 at 09:00; Stop 06/17/20 at 09:01; Status DC Propofol 100 ml @ As Directed STK-MED ONCE IV ; Start 06/17/20 at 09:05; Stop 06/17/20 at 09:05; Status DC Lidocaine HCl (Lidocaine 1% 20ml Vial) 20 ml 1X ONCE INJ Last administered on 06/17/20at 09:15; Start 06/17/20 at 09:15; Stop 06/17/20 at 09:20; Status DC Lidocaine HCl (Xylocaine-Mpf 1% 5ml Vial) 5 ml STK-MED ONCE .ROUTE ; Start 06/17/20 at 09:26; Stop 06/17/20 at 09:26; Status DC Sodium Chloride 1,000 ml @ 1,000 mls/hr 1X ONCE IV Last administered on 06/17/20at 10:15; Start 06/17/20 at 10:15; Stop 06/17/20 at 11:14; Status DC Propofol 100 ml @ 3.819 mls/ hr CONT PRN IV PER PROTOCOL Last administered on 06/25/20at 06:12; Start 06/17/20 at 10:45; Stop 06/29/20 at 11:47; Status DC Fentanyl Citrate (Fentanyl 2ml Vial) 100 mcg 1X ONCE IV ; Start 06/17/20 at 12:00; Stop 06/17/20 at 12:39; Status DC Midazolam HCl (Versed) 2 mg 1X ONCE IV ; Start 06/17/20 at 12:00; Stop 06/17/20 at 12:39; Status DC Magnesium Sulfate/ Dextrose 100 ml @ 100 mls/hr 1X ONCE IV Last administered on 06/17/20at 12:22; Start 06/17/20 at 12:00; Stop 06/17/20 at 12:39; Status DC Buspirone HCl (Buspar) 30 mg Q8H NG Last administered on 06/17/20at 12:31; Start 06/17/20 at 12:00; Stop 06/17/20 at 12:39; Status DC Glycerin/ Hypromellose/ Polyethylene (Artificial Tears) 1 drop Q6HRS OU ; Start 06/17/20 at 12:00; Stop 06/17/20 at 12:39; Status DC Glycerin/ Hypromellose/ Polyethylene (Artificial Tears) 1 drop PRN Q15MIN PRN OU DRY EYE; Start 06/17/20 at 12:00; Stop 06/17/20 at 12:39; Status DC Heparin Sodium (Porcine) (Heparin Sodium) 5,000 unit BID SQ ; Start 06/17/20 at 21:00; Stop 06/17/20 at 12:39; Status DC Pantoprazole Sodium (PROTONIX VIAL for IV PUSH) 40 mg DAILY IVP ; Start 06/18/20 at 09:00; Stop 06/17/20 at 12:39; Status DC Fentanyl Citrate 30 ml @ 0 mls/hr CONT PRN IV PER PROTOCOL.; Start 06/17/20 at 12:00; Stop 06/17/20 at 12:39; Status DC Propofol 100 ml @ 0 mls/hr CONT PRN IV PER PROTOCOL.; Start 06/17/20 at 12:00; Stop 06/17/20 at 12:39; Status DC Midazolam HCl 100 ml @ 0 mls/hr CONT PRN IV PER PROTOCOL; Start 06/17/20 at 12:00; Stop 06/17/20 at 12:39; Status DC Vecuronium Onaway (Norcuron Bolus) 10 mg PRN Q1HR PRN IV SHIVERING; Start 06/17/20 at 12:00; Stop 06/17/20 at 12:39; Status DC Piperacillin Sod/ Tazobactam Sod 4.5 gm/Sodium Chloride 100 ml @ 200 mls/hr 1X ONCE IV ; Start 06/17/20 at 12:15; Stop 06/17/20 at 12:44; Status Cancel Midazolam HCl (Versed) 5 mg Q1HR PRN IV SEDATION Last administered on 06/29/20at 13:48; Start 06/17/20 at 12:45 Fentanyl Citrate (Fentanyl 2ml Vial) 100 mcg Q1HR IVP Last administered on 06/17/20at 18:55; Start 06/17/20 at 13:00; Stop 06/17/20 at 23:41; Status DC Piperacillin Sod/ Tazobactam Sod 3.375 gm/Sodium Chloride 50 ml @ 100 mls/hr Q6H IV Last administered on 06/27/20at 05:31; Start 06/17/20 at 16:00; Stop 06/27/20 at 11:30; Status DC Potassium Bicarbonate (Potassium Effervescent Tablet) 40 meq 1X ONCE NG Last administered on 06/18/20at 10:00; Start 06/18/20 at 09:45; Stop 06/18/20 at 09:48; Status DC Albuterol/ Ipratropium (Duoneb) 3 ml RTQID NEB Last administered on 07/05/20at 11:11; Start 06/18/20 at 20:00 Famotidine (Pepcid Vial) 20 mg BID IVP Last administered on 07/02/20at 08:05; Start 06/18/20 at 21:00; Stop 07/02/20 at 10:23; Status DC Enoxaparin Sodium (Lovenox 40mg Syringe) 40 mg Q24H SQ Last administered on 07/04/20at 21:10; Start 06/18/20 at 21:00 Levothyroxine Sodium (Synthroid) 75 mcg DAILY06 PO Last administered on 07/05/20at 06:01; Start 06/18/20 at 21:00 Fentanyl Citrate 30 ml @ 0 mls/hr CONT PRN IV SEE PROTOCOL Last administered on 06/28/20at 04:56; Start 06/18/20 at 20:15; Stop 06/29/20 at 11:47; Status DC Carvedilol (Coreg) 3.125 mg BIDWMEALS PO Last administered on 07/05/20at 08:05; Start 06/19/20 at 17:00 Atorvastatin Calcium (Lipitor) 20 mg QHS PO Last administered on 07/04/20at 21:09; Start 06/19/20 at 21:00 Aspirin (Aspirin Chewable) 81 mg DAILYWBKFT PO Last administered on 07/05/20at 08:06; Start 06/20/20 at 08:00 Aspirin (Aspirin Chewable) 81 mg 1X ONCE PO Last administered on 06/19/20at 15:57; Start 06/19/20 at 15:30; Stop 06/19/20 at 15:37; Status DC Potassium Chloride/Water 100 ml @ 100 mls/hr 1X ONCE IV Last administered on 06/19/20at 15:57; Start 06/19/20 at 15:30; Stop 06/19/20 at 16:29; Status DC Amiodarone HCl (Cordarone) 400 mg DAILY PO Last administered on 07/05/20at 08:05; Start 06/20/20 at 09:00 Furosemide (Lasix) 40 mg 1X ONCE IVP Last administered on 06/20/20at 14:38; Start 06/20/20 at 13:30; Stop 06/20/20 at 13:31; Status DC Potassium Chloride/Water 100 ml @ 100 mls/hr 1X ONCE IV Last administered on 06/20/20at 14:39; Start 06/20/20 at 13:30; Stop 06/20/20 at 14:29; Status DC Dexmedetomidine HCl 400 mcg/ Sodium Chloride 100 ml @ 0 mls/hr CONT PRN IV PER PROTOCOL Last administered on 06/29/20at 06:11; Start 06/21/20 at 10:45; Stop 06/29/20 at 11:47; Status DC Sodium Chloride 500 ml @ 500 mls/hr 1X PRN PRN IV SEE COMMENTS; Start 06/21/20 at 10:45 Atropine Sulfate (ATROPINE 0.5mg SYRINGE) 0.5 mg PRN Q5MIN PRN IV SEE COMMENTS; Start 06/21/20 at 10:45; Stop 06/29/20 at 11:47; Status DC Fentanyl Citrate (Fentanyl 2ml Vial) 50 mcg PRN Q2HR PRN IVP PAIN Last administered on 07/03/20at 04:14; Start 06/23/20 at 16:45 Midazolam HCl 100 ml @ 0 mls/hr CONT PRN IV SEE PROTOCOL Last administered on 06/28/20at 03:00; Start 06/25/20 at 11:45; Stop 06/29/20 at 11:47; Status DC Lidocaine HCl (Xylocaine-Mpf 1% 2ml Vial) 2 ml STK-MED ONCE .ROUTE ; Start 06/25/20 at 14:21; Stop 06/25/20 at 14:21; Status DC Iohexol (Omnipaque 300 Mg/ml) 100 ml STK-MED ONCE .ROUTE ; Start 06/25/20 at 14:21; Stop 06/25/20 at 14:21; Status DC Heparin Sodium/ Sodium Chloride 1,000 ml @ As Directed STK-MED ONCE .ROUTE ; Start 06/25/20 at 14:21; Stop 06/25/20 at 14:21; Status DC Heparin Sodium (Porcine) (Heparin Sodium) 10,000 unit STK-MED ONCE .ROUTE ; Start 06/25/20 at 14:31; Stop 06/25/20 at 14:31; Status DC Verapamil HCl (Verapamil) 5 mg STK-MED ONCE .ROUTE ; Start 06/25/20 at 14:31; Stop 06/25/20 at 14:31; Status DC Nitroglycerin (Nitroglycerin) 200 mcg STK-MED ONCE .ROUTE ; Start 06/25/20 at 14:31; Stop 06/25/20 at 14:31; Status DC Nitroglycerin (Nitroglycerin) 200 mcg 1X ONCE IART Last administered on 06/25/20at 15:09; Start 06/25/20 at 15:15; Stop 06/25/20 at 15:16; Status DC Verapamil HCl (Verapamil) 2.5 mg 1X ONCE IART Last administered on 06/25/20at 15:09; Start 06/25/20 at 15:15; Stop 06/25/20 at 15:16; Status DC Heparin Sodium (Porcine) (Heparin Sodium) 2,500 unit 1X ONCE IART Last administered on 06/25/20at 15:09; Start 06/25/20 at 15:15; Stop 06/25/20 at 15:16; Status DC Heparin Sodium/ Sodium Chloride (HEPARIN for ARTERIAL LINE FLUSH) 1,000 unit 1X ONCE IART Last administered on 06/25/20at 15:09; Start 06/25/20 at 15:15; Stop 06/25/20 at 15:16; Status DC Iohexol (Omnipaque 300 Mg/ml) 30 ml 1X ONCE IART Last administered on 06/25/20at 15:09; Start 06/25/20 at 15:15; Stop 06/25/20 at 15:16; Status DC Lidocaine HCl (Xylocaine-Mpf 1% 2ml Vial) 2 ml 1X ONCE INJ Last administered on 06/25/20at 15:09; Start 06/25/20 at 15:15; Stop 06/25/20 at 15:16; Status DC Amino Acids/ Glycerin/ Electrolytes 1,000 ml @ 80 mls/hr [id number] IV Last administered on 06/27/20at 20:50; Start 06/25/20 at 17:30; Stop 06/28/20 at 11:35; Status DC Potassium Chloride/Water 100 ml @ 100 mls/hr Q1H IV Last administered on 06/25/20at 18:46; Start 06/25/20 at 18:00; Stop 06/25/20 at 19:59; Status DC Rocuronium Onaway (Zemuron) 50 mg STK-MED ONCE .ROUTE ; Start 06/26/20 at 11:37; Stop 06/26/20 at 11:38; Status DC Cellulose (Surgicel Fibrillar 1x2) 1 each STK-MED ONCE .ROUTE Last administered on 06/26/20at 13:20; Start 06/26/20 at 12:19; Stop 06/26/20 at 12:19; Status DC Bupivacaine HCl (Sensorcaine Mpf 0.5%) 30 ml STK-MED ONCE .ROUTE ; Start 06/26/20 at 12:19; Stop 06/26/20 at 12:19; Status DC Ondansetron HCl (Zofran) 4 mg STK-MED ONCE .ROUTE ; Start 06/26/20 at 13:13; Stop 06/26/20 at 13:13; Status DC Dexamethasone Sodium Phosphate (Decadron) 4 mg STK-MED ONCE .ROUTE ; Start 06/26/20 at 13:13; Stop 06/26/20 at 13:14; Status DC Cellulose (Surgicel Fibrillar 1x2) 1 each STK-MED ONCE .ROUTE Last administered on 06/26/20at 13:22; Start 06/26/20 at 13:25; Stop 06/26/20 at 13:25; Status DC Sevoflurane (Ultane) 30 ml STK-MED ONCE IH ; Start 06/26/20 at 13:37; Stop 06/26/20 at 13:38; Status DC Propofol (Diprivan) 200 mg STK-MED ONCE IV ; Start 06/26/20 at 13:38; Stop 06/26/20 at 13:38; Status DC Ringer's Solution 1,000 ml @ 30 mls/hr Q24H IV Last administered on 06/27/20at 08:39; Start 06/27/20 at 07:00; Stop 06/27/20 at 18:59; Status DC Prochlorperazine Edisylate (Compazine) 5 mg PACU PRN PRN IV NAUSEA, MRX1; Start 06/27/20 at 07:00; Stop 06/28/20 at 06:59; Status DC Propofol (Diprivan) 200 mg STK-MED ONCE IV ; Start 06/27/20 at 09:53; Stop 06/27/20 at 09:54; Status DC Lidocaine HCl (Lidocaine Pf 2% Vial) 5 ml STK-MED ONCE .ROUTE ; Start 06/27/20 at 09:54; Stop 06/27/20 at 09:54; Status DC Lisinopril (Prinivil) 5 mg DAILY PO Last administered on 07/04/20at 09:23; Start 06/29/20 at 09:00; Stop 07/04/20 at 14:46; Status DC Acetaminophen/ Hydrocodone Bitart (Lortab 7.5-325/ 15ml Oral Solution) 10 ml 1X ONCE PEG Last administered on 06/28/20at 12:37; Start 06/28/20 at 12:30; Stop 06/28/20 at 12:31; Status DC Piperacillin Sod/ Tazobactam Sod 3.375 gm/Sodium Chloride 50 ml @ 100 mls/hr Q6HRS IV Last administered on 07/05/20at 12:31; Start 06/29/20 at 10:00 Vecuronium [place]away (Norcuron Bolus) 10 mg STK-MED ONCE IV ; Start 06/29/20 at 14:31; Stop 06/29/20 at 14:31; Status DC Propofol 100 ml @ 0 mls/hr CONT PRN IV PER PROTOCOL Last administered on 07/02/20at 07:26; Start 06/29/20 at 16:30 Vecuronium [place]away (Norcuron Bolus) 10 mg 1X ONCE IV Last administered on 06/29/20at 14:31; Start 06/29/20 at 14:31; Stop 06/29/20 at 17:19; Status DC Daptomycin 400 mg/ Sodium Chloride 50 ml @ 100 mls/hr Q24H IV Last administered on 07/04/20at 09:25; Start 06/30/20 at 10:00; Stop 07/05/20 at 08:14; Status DC Famotidine (Pepcid) 20 mg QHS GT Last administered on 07/04/20at 21:09; Start 07/02/20 at 21:00 Haloperidol Lactate (Haldol Inj) 5 mg Q8HRS IVP Last administered on 07/03/20at 06:00; Start 07/02/20 at 14:00; Stop 07/03/20 at 12:40; Status DC Micafungin Sodium 100 mg/Dextrose 100 ml @ 100 mls/hr Q24H IV Last administered on 07/05/20at 08:04; Start 07/03/20 at 09:00; Stop 07/05/20 at 08:14; Status DC Alteplase, Recombinant (Cathflo For Central Catheter Clearance) 1 mg 1X ONCE INT CAT Last administered on 07/03/20at 08:45; Start 07/03/20 at 08:45; Stop 07/03/20 at 08:46; Status DC Haloperidol Lactate (Haldol Inj) 2.5 mg PRN Q6HRS PRN IVP AGITATION; Start 07/03/20 at 12:30; Stop 07/03/20 at 12:40; Status DC Haloperidol Lactate (Haldol Inj) 2.5 mg PRN Q6HRS PRN IVP AGITATION Last a dministered on 07/04/20at 01:04; Start 07/03/20 at 14:00; Stop 07/04/20 at 08:04; Status DC Haloperidol Lactate (Haldol Inj) 2.5 mg Q8HRS IVP ; Start 07/04/20 at 10:00; Stop 07/04/20 at 08:15; Status DC Haloperidol Lactate (Haldol Inj) 2.5 mg PRN Q8HRS PRN IVP AGITATION; Start 07/04/20 at 08:15; Stop 07/05/20 at 10:35; Status DC Lisinopril (Prinivil) 20 mg BID PO Last administered on 07/05/20at 08:06; Start 07/04/20 at 21:00 Haloperidol (Haldol) 0.5 mg PRN Q8HRS PRN PO AGITATION; Start 07/05/20 at 10:45 Active Scripts Active Reported Acetaminophen-Diphenhyd 500-25 (Acetaminophen/Diphenhydramine) 1 Each Tablet 1 Each PO HS PRN Naproxen 500 Mg Tablet 1 Tab PO BID PRN 30 Days Tramadol Hcl 50 Mg Tablet 50 Mg PO Q4HRS Levothyroxine Sodium 75 Mcg Tablet 1 Tab PO DAILY Adderall 20 Mg Tablet (Dextroamphetamine/Amphetamine) 20 Mg Tablet 1 Tab PO DAILY MDD 1 Tablet(s) 5 Days Prozac (Fluoxetine Hcl) 20 Mg Capsule 1 Cap PO [id number] Vitals/I & O Vital Sign - Last 24 Hours 07/04/20 07/04/20 07/04/20 07/04/20 14:26 15:08 16:25 16:27 Pulse 92 72 90 Resp 24 24 24 B/P (MAP) 153/84 (107) 139/63 (88) 114/64 (81) Pulse Ox 98 97 97 97 O2 Delivery trach shield trach shield trach shield Tracheal Collar O2 Flow Rate 8.0 07/04/20 07/04/20 07/04/20 07/04/20 17:29 18:15 18:26 19:00 Pulse 113 105 105 112 Resp 24 20 20 B/P (MAP) 136/79 (98) 136/84 (101) 136/84 140/97 (111) Pulse Ox 97 96 97 O2 Delivery trach shield trach shield Tracheal Collar 07/04/20 07/04/20 07/04/20 07/04/20 20:00 20:00 20:15 21:00 Temp 98.8 98.8 Pulse 96 90 Resp 20 24 B/P (MAP) 144/81 (102) 155/81 (105) Pulse Ox 96 96 96 O2 Delivery Trach Collar Tracheal Collar Tracheal Collar Tracheal Collar O2 Flow Rate 8.0 07/04/20 07/04/20 07/04/20 07/04/20 21:10 22:00 23:00 23:59 Temp 99.9 99.9 Pulse 90 98 92 97 Resp B/P (MAP) 155/81 149/93 (111) 105/65 (78) 126/82 (97) Pulse Ox 96 96 97 O2 Delivery Tracheal Collar Tracheal Collar Tracheal Collar 07/04/20 07/05/20 07/05/20 07/05/20 23:59 01:00 02:00 03:00 Pulse 104 96 95 Resp 24 B/P (MAP) 155/82 (106) 154/79 (104) 117/83 (94) Pulse Ox 98 100 100 O2 Delivery Trach Collar Tracheal Collar Tracheal Collar Tracheal Collar 07/05/20 07/05/20 07/05/20 07/05/20 04:00 04:00 05:00 06:00 Temp 99.2 99.2 Pulse 92 99 94 Resp 20 B/P (MAP) 150/85 (106) 132/74 (93) 131/75 (93) Pulse Ox 100 100 100 O2 Delivery Tracheal Collar Trach Collar Tracheal Collar Tracheal Collar 07/05/20 07/05/20 07/05/20 07/05/20 07:00 08:00 08:00 08:05 Temp 100.0 100.0 Pulse 101 104 94 Resp 22 17 B/P (MAP) 112/73 (86) 128/73 (91) 128/73 Pulse Ox 100 O2 Delivery Tracheal Collar Trach Collar Tracheal Collar O2 Flow Rate 8.0 8.0 07/05/20 07/05/20 07/05/20 07/05/20 08:05 08:06 08:06 09:00 Pulse 94 94 86 Resp 16 B/P (MAP) 128/92 128/73 149/84 (105) Pulse Ox 96 100 O2 Delivery Tracheal Collar Tracheal Collar O2 Flow Rate 8.0 8.0 07/05/20 07/05/20 07/05/20 07/05/20 10:00 11:00 11:11 12:00 Pulse 81 84 90 Resp 17 16 18 B/P (MAP) 136/79 (98) 100/55 (70) 129/76 (93) Pulse Ox 100 100 100 100 O2 Delivery Tracheal Collar Tracheal Collar Tracheal Collar Tracheal Collar O2 Flow Rate 8.0 8.0 8.0 8.0 07/05/20 07/05/20 12:00 13:00 Pulse 80 Resp 15 B/P (MAP) 133/74 (93) Pulse Ox 100 O2 Delivery Trach Collar Nasal Cannula O2 Flow Rate 8.0 8.0 Intake and Output 07/04/20 07/04/20 07/05/20 15:00 23:00 07:00 Intake Total 250 ml 1132 ml 1151 ml Output Total 835 ml 1380 ml 820 ml Balance -585 ml -248 ml 331 ml Justicifation of Admission Dx: Justifications for Admission: Justification of Admission Dx: N/A JEFF FLORES MD Jul 05, 2020 14:20
[2020-07-05] MEDS: FAMOTIDINE 20 MG TABLET. GT SCH (20:23)
[2020-07-05] MEDS: ENOXAPARIN 40 MG/0.4 ML SYRINGE. SQ SCH (20:24)
[2020-07-05] MEDS: ATORVASTATIN CALCIUM 20 MG TABLET PO SCH (20:24)
[2020-07-06] MEDS: PIPERACILLIN/TAZOBACTAM 3.375 GM in IV NORMAL SALINE 50ML 50 ML IV SCH ×4 (00:05→18:18)
[2020-07-06 03:00] VITALS: BP 154/84
[2020-07-06] MEDS: LEVOTHYROXINE 75 MCG TABLET PO SCH (06:29)
[2020-07-06 07:00] VITALS: BP 167/82
--- NOTE | 2020-07-06 08:22 | PDOC ---
Infectious Disease Note Subjective: Subjective Patient intubated Does not follow any commands Low-grade fevers Vital Signs: Vital Signs Vital Signs Date Time Temp Pulse Resp B/P (MAP) Pulse Ox O2 Delivery O2 Flow Rate FiO2 07/06/20 03:00 99.0 92 22 154/84 (107) 98 Tracheal Collar 8.0 99.0 Physical Exam: PHYSICAL EXAM GENERAL: Opens eyes transiently, does not follow any commands, HEENT: Both pupils are round and reacting. No conjunctival lesion. NECK: Supple. Trach present, erythema and drainage present around trach site improving LUNGS: Decreased breath sounds bilaterally. HEART: S1, S2, regular. No gallop or murmur. ABDOMEN: Soft, nontender. No organomegaly.peg tube + fecal tube , Jolly present EXTREMITIES: No edema or cyanosis. toe amputation of the Rt foot,healed scars SKIN: Unremarkable. NEUROLOGICAL: Opens eyes transiently does not follow any commands Medications: Inpatient Meds: Current Medications Medications (Trade) Dose Ordered Sig/Rosalio Start Time Stop Time Status Last Admin Dose Admin Acetaminophen/ Hydrocodone Bitart (Lortab 7.5-325/ 15ml Oral Solution) 10 ml 1X ONCE 06/28/20 12:30 06/28/20 12:31 DC 06/28/20 12:37 10 ML Albuterol/ Ipratropium (Duoneb) 3 ml RTQID 06/18/20 20:00 07/05/20 20:00 3 ML Alteplase, Recombinant (Cathflo For Central Catheter Clearance) 1 mg 1X ONCE 07/03/20 08:45 07/03/20 08:46 DC 07/03/20 08:45 1 MG Amino Acids/ Glycerin/ Electrolytes 1,000 ml @ 80 mls/hr [id number] 06/25/20 17:30 06/28/20 11:35 DC 06/27/20 20:50 80 MLS/HR Amiodarone HCl (Cordarone) 400 mg DAILY 06/20/20 09:00 07/05/20 08:05 400 MG Amiodarone HCl 150 mg/Dextrose 103 ml @ 618 mls/hr 1X ONCE 06/17/20 07:00 06/17/20 07:09 DC 06/17/20 07:00 618 MLS/HR Amiodarone HCl 450 mg/Dextrose 259 ml @ 33 mls/hr 1X ONCE 06/17/20 07:00 06/17/20 14:50 DC Aspirin (Aspirin Chewable) 81 mg 1X ONCE 06/19/20 15:30 06/19/20 15:37 DC 06/19/20 15:57 81 MG Atorvastatin Calcium (Lipitor) 20 mg QHS 06/19/20 21:00 07/05/20 20:24 20 MG Atropine Sulfate (ATROPINE 0.5mg SYRINGE) 0.5 mg PRN Q5MIN PRN 06/21/20 10:45 06/29/20 11:47 DC Bupivacaine HCl (Sensorcaine Mpf 0.5%) 30 ml STK-MED ONCE 06/26/20 12:19 06/26/20 12:19 DC Buspirone HCl (Buspar) 30 mg Q8H 06/17/20 12:00 06/17/20 12:39 DC 06/17/20 12:31 30 MG Carvedilol (Coreg) 3.125 mg BIDWMEALS 06/19/20 17:00 07/05/20 17:15 3.125 MG Cellulose (Surgicel Fibrillar 1x2) 1 each STK-MED ONCE 06/26/20 13:25 06/26/20 13:25 DC 06/26/20 13:22 1 EACH Daptomycin 400 mg/ Sodium Chloride 50 ml @ 100 mls/hr Q24H 06/30/20 10:00 07/05/20 08:14 DC 07/04/20 09:25 100 MLS/HR Dexamethasone Sodium Phosphate (Decadron) 4 mg STK-MED ONCE 06/26/20 13:13 06/26/20 13:14 DC Dexmedetomidine HCl 400 mcg/ Sodium Chloride 100 ml @ 0 mls/hr CONT PRN 06/21/20 10:45 06/29/20 11:47 DC 06/29/20 06:11 15.1 MLS/HR Enoxaparin Sodium (Lovenox 40mg Syringe) 40 mg Q24H 06/18/20 21:00 07/05/20 20:24 40 MG Famotidine (Pepcid Vial) 20 mg BID 06/18/20 21:00 07/02/20 10:23 DC 07/02/20 08:05 20 MG Famotidine (Pepcid) 20 mg QHS 07/02/20 21:00 1/21/21 20:23 20 MG Fentanyl Citrate (Fentanyl 2ml Vial) 50 mcg PRN Q2HR PRN 06/23/20 16:45 07/03/20 04:14 50 MCG Furosemide (Lasix) 40 mg 1X ONCE 06/20/20 13:30 06/20/20 13:31 DC 06/20/20 14:38 40 MG Glycerin/ Hypromellose/ Polyethylene (Artificial Tears) 1 drop PRN Q15MIN PRN 06/17/20 12:00 06/17/20 12:39 DC Haloperidol (Haldol) 0.5 mg PRN Q8HRS PRN 07/05/20 10:45 Haloperidol Lactate (Haldol Inj) 2.5 mg PRN Q8HRS PRN 07/04/20 08:15 07/05/20 10:35 DC Heparin Sodium (Porcine) (Heparin Sodium) 2,500 unit 1X ONCE 06/25/20 15:15 06/25/20 15:16 DC 06/25/20 15:09 2,500 UNIT Heparin Sodium/ Sodium Chloride (HEPARIN for ARTERIAL LINE FLUSH) 1,000 unit 1X ONCE 06/25/20 15:15 06/25/20 15:16 DC 06/25/20 15:09 1,000 UNIT Info (CONTRAST GIVEN -- Rx MONITORING) 1 each PRN DAILY PRN 06/17/20 08:15 06/19/20 08:14 DC Iohexol (Omnipaque 300 Mg/ml) 30 ml 1X ONCE 06/25/20 15:15 06/25/20 15:16 DC 06/25/20 15:09 30 ML Iohexol (Omnipaque 350 Mg/ml) 100 ml 1X ONCE 06/17/20 08:15 06/17/20 08:16 DC 06/17/20 08:17 100 ML Levothyroxine Sodium (Synthroid) 75 mcg DAILY06 06/18/20 21:00 07/06/20 06:29 75 MCG Lidocaine HCl (Lidocaine 1% 20ml Vial) 20 ml 1X ONCE 06/17/20 09:15 06/17/20 09:20 DC 06/17/20 09:15 20 ML Lidocaine HCl (Lidocaine Pf 2% Vial) 5 ml STK-MED ONCE 06/27/20 09:54 06/27/20 09:54 DC Lidocaine HCl (Xylocaine-Mpf 1% 2ml Vial) 2 ml 1X ONCE 06/25/20 15:15 06/25/20 15:16 DC 06/25/20 15:09 2 ML Lidocaine HCl (Xylocaine-Mpf 1% 5ml Vial) 5 ml STK-MED ONCE 06/17/20 09:26 06/17/20 09:26 DC Lisinopril (Prinivil) 20 mg BID 07/04/20 21:00 07/05/20 20:23 20 MG Magnesium Sulfate/ Dextrose 100 ml @ 100 mls/hr 1X ONCE 06/17/20 12:00 06/17/20 12:39 DC 06/17/20 12:22 100 MLS/HR Micafungin Sodium 100 mg/Dextrose 100 ml @ 100 mls/hr Q24H 07/03/20 09:00 07/05/20 08:14 DC 07/05/20 08:04 100 MLS/HR Midazolam HCl 100 ml @ 0 mls/hr CONT PRN 06/25/20 11:45 06/29/20 11:47 DC 06/28/20 03:00 10 MLS/HR Midazolam HCl (Versed) 5 mg Q1HR PRN 06/17/20 12:45 06/29/20 13:48 5 MG Nitroglycerin (Nitroglycerin) 200 mcg 1X ONCE 06/25/20 15:15 06/25/20 15:16 DC 06/25/20 15:09 200 MCG Ondansetron HCl (Zofran) 4 mg STK-MED ONCE 06/26/20 13:13 06/26/20 13:13 DC Pantoprazole Sodium (PROTONIX VIAL for IV PUSH) 40 mg DAILY 06/18/20 09:00 06/17/20 12:39 DC Piperacillin Sod/ Tazobactam Sod (Zosyn Per Pharmacy) 1 each PRN DAILY PRN 06/17/20 08:45 06/27/20 11:36 DC Piperacillin Sod/ Tazobactam Sod 3.375 gm/Sodium Chloride 50 ml @ 100 mls/hr Q6HRS 06/29/20 10:00 07/06/20 06:08 100 MLS/HR Piperacillin Sod/ Tazobactam Sod 4.5 gm/Sodium Chloride 100 ml @ 200 mls/hr 1X ONCE 06/17/20 12:15 06/17/20 12:44 Cancel Potassium Bicarbonate (Potassium Effervescent Tablet) 40 meq 1X ONCE 06/18/20 09:45 06/18/20 09:48 DC 06/18/20 10:00 40 MEQ Potassium Chloride/Water 100 ml @ 100 mls/hr Q1H 06/25/20 18:00 06/25/20 19:59 DC 06/25/20 18:46 100 MLS/HR Prochlorperazine Edisylate (Compazine) 5 mg PACU PRN PRN 06/27/20 07:00 06/28/20 06:59 DC Propofol 100 ml @ 0 mls/hr CONT PRN 06/29/20 16:30 07/02/20 07:26 21.1 MLS/HR Propofol (Diprivan) 200 mg STK-MED ONCE 06/27/20 09:53 06/27/20 09:54 DC Ringer's Solution 1,000 ml @ 30 mls/hr Q24H 06/27/20 07:00 06/27/20 18:59 DC 06/27/20 08:39 30 MLS/HR Rocuronium Oxford (Zemuron) 50 mg STK-MED ONCE 06/26/20 11:37 06/26/20 11:38 DC Sevoflurane (Ultane) 30 ml STK-MED ONCE 06/26/20 13:37 06/26/20 13:38 DC Sodium Chloride 500 ml @ 500 mls/hr 1X PRN PRN 06/21/20 10:45 Vecuronium [place] (Norcuron Bolus) 10 mg 1X ONCE 06/29/20 14:31 06/29/20 17:19 DC 06/29/20 14:31 10 MG Verapamil HCl (Verapamil) 2.5 mg 1X ONCE 06/25/20 15:15 06/25/20 15:16 DC 06/25/20 15:09 2.5 MG Labs: Lab Laboratory Tests Test 07/05/20 13:02 07/05/20 17:47 07/06/20 00:10 Glucose (Fingerstick) 104 mg/dL (70-99) 145 mg/dL (70-99) 115 mg/dL (70-99) Micro RUN DATE: 07/02/20 [facility] LAB *LIVE* PAGE 1 RUN TIME: 1146 Specimen Inquiry PATIENT: BASILIO WHYTE ACCT: [id number] LOC: 1 [facility] U: [id number] AGE/SX: 59/F ROOM: 106 RE06/17/[address]: HUSSEIN GOODWIN III, DO : 1960 BED: 1 DIS: STATUS: ADM IN TLOC: SPEC #: [id number] BORA: 06/30/20 STATUS: RES REQ #: [id number] RECD: 07/01/[address]: HUSSEIN GOODWIN III, DO SOURCE: DRAINAGE ENTR: 07/01/[address]: JEFF FLORES MD SPDESC: WOUND RENAE,POPPY PAUL,MELY MEHTA,NURA GARNER,NIKA BARRAGAN,KIRA SAENZ,MARGOTH House MD ORDERED: ANAER/AEROB/GS COMMENTS: DRAINAGE/SECRETION FROM TRACH SITE Procedure Result GRAM STAIN Final Final SQUAMOUS EPI CELL:NONE SEEN PMN (WBCs):NONE SEEN YEAST:MANY Unless otherwise specified, Testing Performed by: [address] [address] For Inquires, the Physician may contact the Microbiology department at [phone] ANAEROBIC-AEROBIC CULTURE Preliminary Preliminary MANY YEAST on 07/02/20 at 0914 FINAL ID= [FILOMENA ALBICANS] FILOMENA ALBICANS Unless otherwise specified, Testing Performed by: [address] [address] For Inquires, the Physician may contact the Microbiology department at [phone] Objective: Assessment: 1. Cardiopulmonary arrest at home. With VT, shock then asystole s/p cardiac cath , normal coronaries Severe NICM Acute systolic CHF: compensated 2. Leukocytosis, likely reactive. resolved 3. Lactic acidosis from #1. 4. Respiratory failure. suspected aspiration; status post trach placement, swab culture from trach site with Filomena albicans 5. Anoxic Encephalopathy 6. Hypertension. 7. Pneumothorax.s/p CTS, 8. Rib fracture and sternal fracture. 9. Anemia 10. S/P Peg tube placement 11. Marijuana use: + UDS Plan: Plan of Care Continue Zosyn cont supportive care Monitor temperature pattern Overall prognosis poor D/W at bedside SAÚL RENAE MD Jul 06, 2020 08:22
--- NOTE | 2020-07-06 09:07 | PDOC ---
Date of Service: DATE: 07/06/20 TIME: 09:06 Subjective: Subjective: present. Objective: Objective: D/w nurse - no concerns w/ PEG. Vital Signs: Vital Signs Date Time Temp Pulse Resp B/P (MAP) Pulse Ox O2 Delivery O2 Flow Rate FiO2 07/06/20 03:00 99.0 92 22 154/84 (107) 98 Tracheal Collar 8.0 99.0 Labs: Laboratory Tests Test 07/05/20 13:02 07/05/20 17:47 07/06/20 00:10 Glucose (Fingerstick) 104 mg/dL 145 mg/dL 115 mg/dL PE: GEN: NAD LUNGS: trach collar HEART: RRR ABD: soft, PEG in place, brown stool in rectal tube NEURO/PSYCH: does not respond A/P: Cardiopulmonary arrest, anoxic encephalopathy, resp failure S/p trach and PEG -- PEG functioning, awaiting DC. Justicifation of Admission Dx: Justifications for Admission: Justification of Admission Dx: N/A SHAHBAZ FOSS Jul 06, 2020 09:07
[2020-07-06] MEDS: IPRATRPIUM/ALBUTEROL 0.5/2.5MG 3 ML NEBU. NEB SCH ×4 (09:12→20:03)
[2020-07-06] MEDS: AMIODARONE HCL 200 MG TABLET. PO SCH (09:34)
[2020-07-06] MEDS: LISINOPRIL 20 MG TABLET PO SCH ×2 (09:34→20:44)
[2020-07-06] MEDS: ASPIRIN CHEWABLE 81 MG TABLET. PO SCH (09:35)
[2020-07-06] MEDS: CARVEDILOL 3.125 MG TABLET. PO SCH ×2 (09:36→17:00)
[2020-07-06 11:00] VITALS: BP 143/84
--- NOTE | 2020-07-06 11:29 | PDOC ---
PULMONARY PROGRESS NOTES DATE: 07/06/20 TIME: 11:28 Subjective S/P cardiac arrest 06/17 Had TS 24 hrs S/P trach on 06/26 S/P peg 06/27 Not much clinical change Vitals Vital Signs Date Time Temp Pulse Resp B/P (MAP) Pulse Ox O2 Delivery O2 Flow Rate FiO2 07/06/20 09:36 95 126/68 07/06/20 09:13 100 Tracheal Collar 8.0 07/06/20 07:00 99.2 29 99.2 Lungs: Clear Cardiovascular: S1, S2 Abdomen: Soft, Non-tender Extremities: No Edema Skin: Warm Labs Laboratory Tests Test 07/05/20 00:09 07/05/20 06:05 07/05/20 13:02 07/05/20 17:47 Glucose (Fingerstick) 127 mg/dL (70-99) 131 mg/dL (70-99) 104 mg/dL (70-99) 145 mg/dL (70-99) White Blood Count 12.1 x10^3/uL (4.0-11.0) Red Blood Count 4.31 x10^6/uL (3.50-5.40) Hemoglobin 12.3 g/dL (12.0-15.5) Hematocrit 39.1 % (36.0-47.0) Mean Corpuscular Volume 91 fL (79-100) Mean Corpuscular Hemoglobin 29 pg (25-35) Mean Corpuscular Hemoglobin Concent 32 g/dL (31-37) Red Cell Distribution Width 13.2 % (11.5-14.5) Platelet Count 657 x10^3/uL (140-400) Neutrophils (%) (Auto) 76 % (31-73) Lymphocytes (%) (Auto) 16 % (24-48) Monocytes (%) (Auto) 6 % (0-9) Eosinophils (%) (Auto) 2 % (0-3) Basophils (%) (Auto) 1 % (0-3) Neutrophils # (Auto) 9.1 x10^3/uL (1.8-7.7) Lymphocytes # (Auto) 1.9 x10^3/uL (1.0-4.8) Monocytes # (Auto) 0.7 x10^3/uL (0.0-1.1) Eosinophils # (Auto) 0.3 x10^3/uL (0.0-0.7) Basophils # (Auto) 0.1 x10^3/uL (0.0-0.2) Sodium Level 139 mmol/L (136-145) Potassium Level 3.5 mmol/L (3.5-5.1) Chloride Level 103 mmol/L (98-107) Carbon Dioxide Level 27 mmol/L (21-32) Anion Gap 9 (6-14) Blood Urea Nitrogen 16 mg/dL (7-20) Creatinine 0.6 mg/dL (0.6-1.0) Estimated GFR (Cockcroft-Gault) 103.0 BUN/Creatinine Ratio 27 (6-20) Glucose Level 132 mg/dL (70-99) Calcium Level 9.5 mg/dL (8.5-10.1) Total Bilirubin 0.3 mg/dL (0.2-1.0) Aspartate Amino Transf (AST/SGOT) 30 U/L (15-37) Alanine Aminotransferase (ALT/SGPT) 25 U/L (14-59) Alkaline Phosphatase 101 U/L (46-116) Total Protein 7.4 g/dL (6.4-8.2) Albumin 2.8 g/dL (3.4-5.0) Albumin/Globulin Ratio 0.6 (1.0-1.7) Test 07/06/20 00:10 Glucose (Fingerstick) 115 mg/dL (70-99) Laboratory Tests Test 07/05/20 13:02 07/05/20 17:47 07/06/20 00:10 Glucose (Fingerstick) 104 mg/dL (70-99) 145 mg/dL (70-99) 115 mg/dL (70-99) Medications Active Scripts Medications Dose Route/Sig Max Daily Dose Days Date Category Acetaminophen-Diphenhyd 500-25 (Acetaminophen/Diphenhydramine) 1 Each Tablet 1 Each PO HS PRN 06/18/20 Reported Naproxen 500 Mg Tablet 1 Tab PO BID PRN 30 06/18/20 Reported Tramadol Hcl 50 Mg Tablet 50 Mg PO Q4HRS 06/18/20 Reported Levothyroxine Sodium 75 Mcg Tablet 1 Tab PO DAILY 06/18/20 Reported Adderall 20 Mg Tablet (Dextroamphetamine/Amphetamine) 20 Mg Tablet 1 Tab PO DAILY MDD 1 Tablet(s) 5 06/18/20 Reported Prozac (Fluoxetine Hcl) 20 Mg Capsule 1 Cap PO [id number] 06/18/20 Reported Comments CXR IMPRESSION: Left lung base opacities likely consolidative process such as pneumonia. Small left pleural effusion. Impression . IMPRESSION: 1. Acute respiratory failure secondary to [id number] cardiopulmonary arrest/ anoxic encephalopathy-- now S/P trach 2. [id number]-[id number] ventricular fibrillation and asystole leading to anoxic brain injury. 3. Anoxic encephalopathy. 4. COVID neg 5. Morbid obesity. 6. Leukocytosis--improved 7. Lactic acidosis secondary to [id number] cardiac arrest. 8. Abnormal x-ray revealing bibasilar atelectasis, infiltrates. 9. Pneumothorax secondary to CPR.resolved 10. Sternal sternal fracture secondary to CPR. 11. ? Pneumonia positive, gram-negative, gram-positive. Plan . PLAN: T-S 24 hrs Clinically consistent with Anoxic encephalopathy Trach 06/26/20, PEG on 06/27/20 Follow CXR/ABG-- reviewed Follow infectious disease recommendations in regards to antibiotics, can dc zosyn .follow cultures no growth to date Follow neurology recs--no new recommendations Follow Cardiology recs-- post cardiac cath 06/25/20-- cath was clean w/ normal filling pressures Continue tube feeding for nutritional support DVT/GI PPX D/W RN and RT Social work for D/C planning --[facility] declined, family would like to give the patient a full 30 days to assess level of recovery before potentially withdrawing care. The patient would not have wanted to live on life support or with a feeding tube for prolonged period of time per family. transfer to floor PT. is FULL CODE ANGELA MORENO MD Jul 06, 2020 11:29
--- NOTE | 2020-07-06 12:37 | NUR ---
SS following up with discharge planning. SS reviewed pt chart and discussed with pt RN. Pt is currently on trach collar at eight liters. Trach and peg in place. COVID19 negative. Pt on IV Zosyn. SS received phone contact from [facility] requesting DPOA paperwork. SS discussed with spouse and was notified that pt does not have DPOA paperwork. SS notified [facility] and was notified that the [facility] has no next of kin law. They reported that physicians notes mention hospice they would not be able to accept without a DPOA. SS met with pt's spouse in room and discussed. Pt's spouse reported that family meeting was held and they decided that if pt has not improved thirty days from hospital admission they would most likely transition to hospice care. Pt's spouse reported that he has discussed this with physicians. Pt transferring to room 526 today. Rufina TRIVEDI or [place], to follow. SS will continue to follow for discharge planning.
--- NOTE | 2020-07-06 13:52 | PDOC ---
PROGRESS NOTES Date of Service: DATE: 07/06/20 TIME: 13:51 Chief Complaint Chief Complaint POST covid cardiomyopathy acute systolic CHF Severe NICM: EF 25%. No significant CAD per [facility] anoxic brain injury Cardiac arrest with resuscitation and probable pneumonia, sternal fracture and pneumothorax secondary to CPR, leukocytosis, electrolyte disturbance, hypokalemia, lactic acidosis, elevated troponin. History of Present Illness History of Present Illness 07/06, will transfer to floor, no tele, off vent now for some time. discussed with , she does seem improved, she had a tiny smile to some music earlier, still not following commands or any purposeful response 07/05, about the same, discussed my previous thoughts again with and son, not following commands, movement is seeming to be mostly reflexive. they still want to cont iwth the 30 days plan to give her a chance to improve. I discussed possible transition to hospice, they want to wait until that time. 07/04-, minmal change, some relfexive movements, had a video of her withdrawing to light touch to face, soem work with PT, not following commands as directed I discussed poor prognosis with at length, that as days go by, her chances for meaningful recovery continue to dim. I discussed consideration of hospice care. 07/03/2020, discussed plan with family at length yesterday Patient seen and examined in the ICU plan LTAC start PT and OT moving around a lot She is still not very responsive but at the same time kind of agitated Vitals Vitals Vital Signs Date Time Temp Pulse Resp B/P (MAP) Pulse Ox O2 Delivery O2 Flow Rate FiO2 07/06/20 12:23 100 Tracheal Collar 8.0 07/06/20 11:00 82 25 143/84 (103) 07/06/20 07:00 99.2 99.2 Physical Exam Physical Exam GENERAL: Opens eyes transiently, does not follow any commands, HEENT: Both pupils are round and reacting. No conjunctival lesion. NECK: Supple. Trach present, erythema and drainage present around trach site improving LUNGS: Decreased breath sounds bilaterally. HEART: S1, S2, regular. No gallop or murmur. ABDOMEN: Soft, nontender. No organomegaly.peg tube + fecal tube , Jolly present EXTREMITIES: No edema or cyanosis. toe amputation of the Rt foot,healed scars SKIN: Unremarkable. NEUROLOGICAL: Opens eyes transiently does not follow any commands General: No acute distress Heart: Regular rate, Normal S1, Normal S2 Lungs: Clear Abdomen: Soft, No hepatosplenomegaly Extremities: No cyanosis Skin: No rashes, No breakdown Labs LABS Laboratory Tests Test 07/05/20 17:47 07/06/20 00:10 Glucose (Fingerstick) 145 mg/dL (70-99) 115 mg/dL (70-99) Assessment and Plan Assessmemt and Plan Problems Medical Problems: (1) Cardiac arrest Status: Acute (2) Fracture of ribs, multiple Status: Acute (3) Hyperglycemia Status: Acute (4) Pneumonia Status: Acute (5) Pneumothorax, right Status: Acute (6) Sternal fracture Status: Acute (7) VF (ventricular fibrillation) Status: Acute Comment Review of Relevant I have reviewed the following items afua (where applicable) has been applied. Labs Laboratory Tests Test 07/05/20 00:09 07/05/20 06:05 07/05/20 13:02 07/05/20 17:47 Glucose (Fingerstick) 127 mg/dL (70-99) 131 mg/dL (70-99) 104 mg/dL (70-99) 145 mg/dL (70-99) White Blood Count 12.1 x10^3/uL (4.0-11.0) Red Blood Count 4.31 x10^6/uL (3.50-5.40) Hemoglobin 12.3 g/dL (12.0-15.5) Hematocrit 39.1 % (36.0-47.0) Mean Corpuscular Volume 91 fL (79-100) Mean Corpuscular Hemoglobin 29 pg (25-35) Mean Corpuscular Hemoglobin Concent 32 g/dL (31-37) Red Cell Distribution Width 13.2 % (11.5-14.5) Platelet Count 657 x10^3/uL (140-400) Neutrophils (%) (Auto) 76 % (31-73) Lymphocytes (%) (Auto) 16 % (24-48) Monocytes (%) (Auto) 6 % (0-9) Eosinophils (%) (Auto) 2 % (0-3) Basophils (%) (Auto) 1 % (0-3) Neutrophils # (Auto) 9.1 x10^3/uL (1.8-7.7) Lymphocytes # (Auto) 1.9 x10^3/uL (1.0-4.8) Monocytes # (Auto) 0.7 x10^3/uL (0.0-1.1) Eosinophils # (Auto) 0.3 x10^3/uL (0.0-0.7) Basophils # (Auto) 0.1 x10^3/uL (0.0-0.2) Sodium Level 139 mmol/L (136-145) Potassium Level 3.5 mmol/L (3.5-5.1) Chloride Level 103 mmol/L (98-107) Carbon Dioxide Level 27 mmol/L (21-32) Anion Gap 9 (6-14) Blood Urea Nitrogen 16 mg/dL (7-20) Creatinine 0.6 mg/dL (0.6-1.0) Estimated GFR (Cockcroft-Gault) 103.0 BUN/Creatinine Ratio 27 (6-20) Glucose Level 132 mg/dL (70-99) Calcium Level 9.5 mg/dL (8.5-10.1) Total Bilirubin 0.3 mg/dL (0.2-1.0) Aspartate Amino Transf (AST/SGOT) 30 U/L (15-37) Alanine Aminotransferase (ALT/SGPT) 25 U/L (14-59) Alkaline Phosphatase 101 U/L (46-116) Total Protein 7.4 g/dL (6.4-8.2) Albumin 2.8 g/dL (3.4-5.0) Albumin/Globulin Ratio 0.6 (1.0-1.7) Test 07/06/20 00:10 Glucose (Fingerstick) 115 mg/dL (70-99) Laboratory Tests Test 07/05/20 17:47 07/06/20 00:10 Glucose (Fingerstick) 145 mg/dL (70-99) 115 mg/dL (70-99) Microbiology 06/30/20 Gram Stain - Final, Complete 06/30/20 Aerobic and Anaerobic Culture - Final, Complete 06/17/20 Blood Culture - Final, Complete NO GROWTH AFTER 5 DAYS Medications Current Medications Amiodarone HCl 150 mg/Dextrose 103 ml @ 618 mls/hr 1X ONCE IV Last administered on 06/17/20at 07:00; Start 06/17/20 at 07:00; Stop 06/17/20 at 07:09; Status DC Amiodarone HCl 450 mg/Dextrose 259 ml @ 33 mls/hr 1X ONCE IV ; Start 06/17/20 at 07:00; Stop 06/17/20 at 14:50; Status DC Sodium Chloride 1,000 ml @ 1,000 mls/hr 1X ONCE IV Last administered on 06/17/20at 08:11; Start 06/17/20 at 07:15; Stop 06/17/20 at 08:14; Status DC Midazolam HCl 100 ml @ 0 mls/hr 1X ONCE IV ; Start 06/17/20 at 07:15; Stop 06/17/20 at 07:16; Status DC Midazolam HCl (Versed) 5 mg STK-MED ONCE .ROUTE ; Start 06/17/20 at 07:17; Stop 06/17/20 at 07:17; Status DC Iohexol (Omnipaque 300 Mg/ml) 75 ml 1X ONCE IV Last administered on 06/17/20at 08:17; Start 06/17/20 at 08:15; Stop 06/17/20 at 08:16; Status DC Iohexol (Omnipaque 350 Mg/ml) 100 ml 1X ONCE IV Last administered on 06/17/20at 08:17; Start 06/17/20 at 08:15; Stop 06/17/20 at 08:16; Status DC Info (CONTRAST GIVEN -- Rx MONITORING) 1 each PRN DAILY PRN MC SEE COMMENTS; Start 06/17/20 at 08:15; Stop 06/19/20 at 08:14; Status DC Sodium Chloride 1,000 ml @ 1,000 mls/hr 1X ONCE IV Last administered on 06/17/20at 08:25; Start 06/17/20 at 08:15; Stop 06/17/20 at 09:14; Status DC Potassium Chloride/Water 100 ml @ 50 mls/hr 1X ONCE IV Last administered on 06/17/20at 10:16; Start 06/17/20 at 09:00; Stop 06/17/20 at 10:59; Status DC Piperacillin Sod/ Tazobactam Sod (Zosyn Per Pharmacy) 1 each PRN DAILY PRN MC SEE COMMENTS; Start 06/17/20 at 08:45; Stop 06/27/20 at 11:36; Status DC Piperacillin Sod/ Tazobactam Sod 4.5 gm/Sodium Chloride 100 ml @ 200 mls/hr 1X ONCE IV Last administered on 06/17/20at 10:15; Start 06/17/20 at 08:45; Stop 06/17/20 at 09:14; Status DC Sodium Chloride 1,000 ml @ 125 mls/hr Q8H IV Last administered on 06/17/20at 23:39; Start 06/17/20 at 09:00; Stop 06/18/20 at 08:59; Status DC Propofol (Diprivan) 200 mg 1X ONCE IV Last administered on 06/17/20at 09:00; Start 06/17/20 at 09:00; Stop 06/17/20 at 09:01; Status DC Propofol 100 ml @ As Directed STK-MED ONCE IV ; Start 06/17/20 at 09:05; Stop 06/17/20 at 09:05; Status DC Lidocaine HCl (Lidocaine 1% 20ml Vial) 20 ml 1X ONCE INJ Last administered on 06/17/20at 09:15; Start 06/17/20 at 09:15; Stop 06/17/20 at 09:20; Status DC Lidocaine HCl (Xylocaine-Mpf 1% 5ml Vial) 5 ml STK-MED ONCE .ROUTE ; Start 06/17/20 at 09:26; Stop 06/17/20 at 09:26; Status DC Sodium Chloride 1,000 ml @ 1,000 mls/hr 1X ONCE IV Last administered on 06/17/20at 10:15; Start 06/17/20 at 10:15; Stop 06/17/20 at 11:14; Status DC Propofol 100 ml @ 3.819 mls/ hr CONT PRN IV PER PROTOCOL Last administered on 06/25/20at 06:12; Start 06/17/20 at 10:45; Stop 06/29/20 at 11:47; Status DC Fentanyl Citrate (Fentanyl 2ml Vial) 100 mcg 1X ONCE IV ; Start 06/17/20 at 12:00; Stop 06/17/20 at 12:39; Status DC Midazolam HCl (Versed) 2 mg 1X ONCE IV ; Start 06/17/20 at 12:00; Stop 06/17/20 at 12:39; Status DC Magnesium Sulfate/ Dextrose 100 ml @ 100 mls/hr 1X ONCE IV Last administered on 06/17/20at 12:22; Start 06/17/20 at 12:00; Stop 06/17/20 at 12:39; Status DC Buspirone HCl (Buspar) 30 mg Q8H NG Last administered on 06/17/20at 12:31; Start 06/17/20 at 12:00; Stop 06/17/20 at 12:39; Status DC Glycerin/ Hypromellose/ Polyethylene (Artificial Tears) 1 drop Q6HRS OU ; Start 06/17/20 at 12:00; Stop 06/17/20 at 12:39; Status DC Glycerin/ Hypromellose/ Polyethylene (Artificial Tears) 1 drop PRN Q15MIN PRN OU DRY EYE; Start 06/17/20 at 12:00; Stop 06/17/20 at 12:39; Status DC Heparin Sodium (Porcine) (Heparin Sodium) 5,000 unit BID SQ ; Start 06/17/20 at 21:00; Stop 06/17/20 at 12:39; Status DC Pantoprazole Sodium (PROTONIX VIAL for IV PUSH) 40 mg DAILY IVP ; Start 06/18/20 at 09:00; Stop 06/17/20 at 12:39; Status DC Fentanyl Citrate 30 ml @ 0 mls/hr CONT PRN IV PER PROTOCOL.; Start 06/17/20 at 12:00; Stop 06/17/20 at 12:39; Status DC Propofol 100 ml @ 0 mls/hr CONT PRN IV PER PROTOCOL.; Start 06/17/20 at 12:00; Stop 06/17/20 at 12:39; Status DC Midazolam HCl 100 ml @ 0 mls/hr CONT PRN IV PER PROTOCOL; Start 06/17/20 at 12:00; Stop 06/17/20 at 12:39; Status DC Vecuronium [place] (Norcuron Bolus) 10 mg PRN Q1HR PRN IV SHIVERING; Start 06/17/20 at 12:00; Stop 06/17/20 at 12:39; Status DC Piperacillin Sod/ Tazobactam Sod 4.5 gm/Sodium Chloride 100 ml @ 200 mls/hr 1X ONCE IV ; Start 06/17/20 at 12:15; Stop 06/17/20 at 12:44; Status Cancel Midazolam HCl (Versed) 5 mg Q1HR PRN IV SEDATION Last administered on 06/29/20at 13:48; Start 06/17/20 at 12:45 Fentanyl Citrate (Fentanyl 2ml Vial) 100 mcg Q1HR IVP Last administered on 06/17/20at 18:55; Start 06/17/20 at 13:00; Stop 06/17/20 at 23:41; Status DC Piperacillin Sod/ Tazobactam Sod 3.375 gm/Sodium Chloride 50 ml @ 100 mls/hr Q6H IV Last administered on 06/27/20at 05:31; Start 06/17/20 at 16:00; Stop 06/27/20 at 11:30; Status DC Potassium Bicarbonate (Potassium Effervescent Tablet) 40 meq 1X ONCE NG Last administered on 06/18/20at 10:00; Start 06/18/20 at 09:45; Stop 06/18/20 at 09:48; Status DC Albuterol/ Ipratropium (Duoneb) 3 ml RTQID NEB Last administered on 07/06/20at 12:22; Start 06/18/20 at 20:00 Famotidine (Pepcid Vial) 20 mg BID IVP Last administered on 07/02/20at 08:05; Start 06/18/20 at 21:00; Stop 07/02/20 at 10:23; Status DC Enoxaparin Sodium (Lovenox 40mg Syringe) 40 mg Q24H SQ Last administered on 07/05/20at 20:24; Start 06/18/20 at 21:00 Levothyroxine Sodium (Synthroid) 75 mcg DAILY06 PO Last administered on at 06:29; Start 06/18/20 at 21:00 Fentanyl Citrate 30 ml @ 0 mls/hr CONT PRN IV SEE PROTOCOL Last administered on 06/28/20at 04:56; Start 06/18/20 at 20:15; Stop 06/29/20 at 11:47; Status DC Carvedilol (Coreg) 3.125 mg BIDWMEALS PO Last administered on 07/06/20at 09:36; Start 06/19/20 at 17:00 Atorvastatin Calcium (Lipitor) 20 mg QHS PO Last administered on 07/05/20at 20:24; Start 06/19/20 at 21:00 Aspirin (Aspirin Chewable) 81 mg DAILYWBKFT PO Last administered on 07/06/20at 09:35; Start 06/20/20 at 08:00 Aspirin (Aspirin Chewable) 81 mg 1X ONCE PO Last administered on 06/19/20at 15:57; Start 06/19/20 at 15:30; Stop 06/19/20 at 15:37; Status DC Potassium Chloride/Water 100 ml @ 100 mls/hr 1X ONCE IV Last administered on 06/19/20at 15:57; Start 06/19/20 at 15:30; Stop 06/19/20 at 16:29; Status DC Amiodarone HCl (Cordarone) 400 mg DAILY PO Last administered on 07/06/20at 09:34; Start 06/20/20 at 09:00 Furosemide (Lasix) 40 mg 1X ONCE IVP Last administered on 06/20/20at 14:38; Start 06/20/20 at 13:30; Stop 06/20/20 at 13:31; Status DC Potassium Chloride/Water 100 ml @ 100 mls/hr 1X ONCE IV Last administered on 06/20/20at 14:39; Start 06/20/20 at 13:30; Stop 06/20/20 at 14:29; Status DC Dexmedetomidine HCl 400 mcg/ Sodium Chloride 100 ml @ 0 mls/hr CONT PRN IV PER PROTOCOL Last administered on 06/29/20at 06:11; Start 06/21/20 at 10:45; Stop 06/29/20 at 11:47; Status DC Sodium Chloride 500 ml @ 500 mls/hr 1X PRN PRN IV SEE COMMENTS; Start 06/21/20 at 10:45 Atropine Sulfate (ATROPINE 0.5mg SYRINGE) 0.5 mg PRN Q5MIN PRN IV SEE COMMENTS; Start 06/21/20 at 10:45; Stop 06/29/20 at 11:47; Status DC Fentanyl Citrate (Fentanyl 2ml Vial) 50 mcg PRN Q2HR PRN IVP PAIN Last administered on 07/03/20at 04:14; Start 06/23/20 at 16:45 Midazolam HCl 100 ml @ 0 mls/hr CONT PRN IV SEE PROTOCOL Last administered on 06/28/20at 03:00; Start 06/25/20 at 11:45; Stop 06/29/20 at 11:47; Status DC Lidocaine HCl (Xylocaine-Mpf 1% 2ml Vial) 2 ml STK-MED ONCE .ROUTE ; Start 06/25/20 at 14:21; Stop 06/25/20 at 14:21; Status DC Iohexol (Omnipaque 300 Mg/ml) 100 ml STK-MED ONCE .ROUTE ; Start 06/25/20 at 14:21; Stop 06/25/20 at 14:21; Status DC Heparin Sodium/ Sodium Chloride 1,000 ml @ As Directed STK-MED ONCE .ROUTE ; Start 06/25/20 at 14:21; Stop 06/25/20 at 14:21; Status DC Heparin Sodium (Porcine) (Heparin Sodium) 10,000 unit STK-MED ONCE .ROUTE ; Start 06/25/20 at 14:31; Stop 06/25/20 at 14:31; Status DC Verapamil HCl (Verapamil) 5 mg STK-MED ONCE .ROUTE ; Start 06/25/20 at 14:31; Stop 06/25/20 at 14:31; Status DC Nitroglycerin (Nitroglycerin) 200 mcg STK-MED ONCE .ROUTE ; Start 06/25/20 at 14:31; Stop 06/25/20 at 14:31; Status DC Nitroglycerin (Nitroglycerin) 200 mcg 1X ONCE IART Last administered on 06/25/20at 15:09; Start 06/25/20 at 15:15; Stop 06/25/20 at 15:16; Status DC Verapamil HCl (Verapamil) 2.5 mg 1X ONCE IART Last administered on 06/25/20at 15:09; Start 06/25/20 at 15:15; Stop 06/25/20 at 15:16; Status DC Heparin Sodium (Porcine) (Heparin Sodium) 2,500 unit 1X ONCE IART Last administered on 06/25/20at 15:09; Start 06/25/20 at 15:15; Stop 06/25/20 at 15:16; Status DC Heparin Sodium/ Sodium Chloride (HEPARIN for ARTERIAL LINE FLUSH) 1,000 unit 1X ONCE IART Last administered on 06/25/20at 15:09; Start 06/25/20 at 15:15; Stop 06/25/20 at 15:16; Status DC Iohexol (Omnipaque 300 Mg/ml) 30 ml 1X ONCE IART Last administered on 06/25/20at 15:09; Start 06/25/20 at 15:15; Stop 06/25/20 at 15:16; Status DC Lidocaine HCl (Xylocaine-Mpf 1% 2ml Vial) 2 ml 1X ONCE INJ Last administered on 06/25/20at 15:09; Start 06/25/20 at 15:15; Stop 06/25/20 at 15:16; Status DC Amino Acids/ Glycerin/ Electrolytes 1,000 ml @ 80 mls/hr [id number] IV Last administered on 06/27/20at 20:50; Start 06/25/20 at 17:30; Stop 06/28/20 at 11:35; Status DC Potassium Chloride/Water 100 ml @ 100 mls/hr Q1H IV Last administered on 06/25/20at 18:46; Start 06/25/20 at 18:00; Stop 06/25/20 at 19:59; Status DC Rocuronium [place] (Zemuron) 50 mg STK-MED ONCE .ROUTE ; Start 06/26/20 at 11:37; Stop 06/26/20 at 11:38; Status DC Cellulose (Surgicel Fibrillar 1x2) 1 each STK-MED ONCE .ROUTE Last administered on 06/26/20at 13:20; Start 06/26/20 at 12:19; Stop 06/26/20 at 12:19; Status DC Bupivacaine HCl (Sensorcaine Mpf 0.5%) 30 ml STK-MED ONCE .ROUTE ; Start 06/26/20 at 12:19; Stop 06/26/20 at 12:19; Status DC Ondansetron HCl (Zofran) 4 mg STK-MED ONCE .ROUTE ; Start 06/26/20 at 13:13; Stop 06/26/20 at 13:13; Status DC Dexamethasone Sodium Phosphate (Decadron) 4 mg STK-MED ONCE .ROUTE ; Start 06/26/20 at 13:13; Stop 06/26/20 at 13:14; Status DC Cellulose (Surgicel Fibrillar 1x2) 1 each STK-MED ONCE .ROUTE Last administered on 06/26/20at 13:22; Start 06/26/20 at 13:25; Stop 06/26/20 at 13:25; Status DC Sevoflurane (Ultane) 30 ml STK-MED ONCE IH ; Start 06/26/20 at 13:37; Stop 06/26/20 at 13:38; Status DC Propofol (Diprivan) 200 mg STK-MED ONCE IV ; Start 06/26/20 at 13:38; Stop 06/26/20 at 13:38; Status DC Ringer's Solution 1,000 ml @ 30 mls/hr Q24H IV Last administered on 06/27/20at 08:39; Start 06/27/20 at 07:00; Stop 06/27/20 at 18:59; Status DC Prochlorperazine Edisylate (Compazine) 5 mg PACU PRN PRN IV NAUSEA, MRX1; Start 06/27/20 at 07:00; Stop 06/28/20 at 06:59; Status DC Propofol (Diprivan) 200 mg STK-MED ONCE IV ; Start 06/27/20 at 09:53; Stop 06/27/20 at 09:54; Status DC Lidocaine HCl (Lidocaine Pf 2% Vial) 5 ml STK-MED ONCE .ROUTE ; Start 06/27/20 at 09:54; Stop 06/27/20 at 09:54; Status DC Lisinopril (Prinivil) 5 mg DAILY PO Last administered on 07/04/20at 09:23; Start 06/29/20 at 09:00; Stop 07/04/20 at 14:46; Status DC Acetaminophen/ Hydrocodone Bitart (Lortab 7.5-325/ 15ml Oral Solution) 10 ml 1X ONCE PEG Last administered on 06/28/20at 12:37; Start 06/28/20 at 12:30; Stop at 12:31; Status DC Piperacillin Sod/ Tazobactam Sod 3.375 gm/Sodium Chloride 50 ml @ 100 mls/hr Q6HRS IV Last administered on 07/06/20at 12:01; Start 06/29/20 at 10:00 Vecuronium [place] (Norcuron Bolus) 10 mg STK-MED ONCE IV ; Start 06/29/20 at 14:31; Stop 06/29/20 at 14:31; Status DC Propofol 100 ml @ 0 mls/hr CONT PRN IV PER PROTOCOL Last administered on 07/02/20at 07:26; Start 06/29/20 at 16:30 Vecuronium [place] (Norcuron Bolus) 10 mg 1X ONCE IV Last administered on 06/29/20at 14:31; Start 06/29/20 at 14:31; Stop 06/29/20 at 17:19; Status DC Daptomycin 400 mg/ Sodium Chloride 50 ml @ 100 mls/hr Q24H IV Last admin istered on 07/04/20at 09:25; Start 06/30/20 at 10:00; Stop 07/05/20 at 08:14; Status DC Famotidine (Pepcid) 20 mg QHS GT Last administered on 07/05/20at 20:23; Start 07/02/20 at 21:00 Haloperidol Lactate (Haldol Inj) 5 mg Q8HRS IVP Last administered on 07/03/20at 06:00; Start 07/02/20 at 14:00; Stop 07/03/20 at 12:40; Status DC Micafungin Sodium 100 mg/Dextrose 100 ml @ 100 mls/hr Q24H IV Last administered on 07/05/20at 08:04; Start 07/03/20 at 09:00; Stop 07/05/20 at 08:14; Status DC Alteplase, Recombinant (Cathflo For Central Catheter Clearance) 1 mg 1X ONCE INT CAT Last administered on 07/03/20at 08:45; Start 07/03/20 at 08:45; Stop 07/03/20 at 08:46; Status DC Haloperidol Lactate (Haldol Inj) 2.5 mg PRN Q6HRS PRN IVP AGITATION; Start 07/03/20 at 12:30; Stop 07/03/20 at 12:40; Status DC Haloperidol Lactate (Haldol Inj) 2.5 mg PRN Q6HRS PRN IVP AGITATION Last administered on 07/04/20at 01:04; Start 07/03/20 at 14:00; Stop 07/04/20 at 08:04; Status DC Haloperidol Lactate (Haldol Inj) 2.5 mg Q8HRS IVP ; Start 07/04/20 at 10:00; Stop 07/04/20 at 08:15; Status DC Haloperidol Lactate (Haldol Inj) 2.5 mg PRN Q8HRS PRN IVP AGITATION; Start 07/04/20 at 08:15; Stop 07/05/20 at 10:35; Status DC Lisinopril (Prinivil) 20 mg BID PO Last administered on 07/06/20at 09:34; Start 07/04/20 at 21:00 Haloperidol (Haldol) 0.5 mg PRN Q8HRS PRN PO AGITATION; Start 07/05/20 at 10:45 Acetaminophen (Tylenol) 650 mg PRN Q6HRS PRN PO MILD PAIN / TEMP > 100.3'F; Start 07/06/20 at 13:30 Active Scripts Active Reported Acetaminophen-Diphenhyd 500-25 (Acetaminophen/Diphenhydramine) 1 Each Tablet 1 Each PO HS PRN Naproxen 500 Mg Tablet 1 Tab PO BID PRN 30 Days Tramadol Hcl 50 Mg Tablet 50 Mg PO Q4HRS Levothyroxine Sodium 75 Mcg Tablet 1 Tab PO DAILY Adderall 20 Mg Tablet (Dextroamphetamine/Amphetamine) 20 Mg Tablet 1 Tab PO DAILY MDD 1 Tablet(s) 5 Days Prozac (Fluoxetine Hcl) 20 Mg Capsule 1 Cap PO DAILYWBKFT Vitals/I & O Vital Sign - Last 24 Hours 07/05/20 07/05/20 07/05/20 07/05/20 15:00 15:45 17:15 19:00 Temp 99.2 99.1 99.2 99.1 Pulse 91 91 71 Resp 16 20 B/P (MAP) 132/80 (97) 132/80 135/75 (95) Pulse Ox 100 100 99 O2 Delivery Tracheal Collar Tracheal Collar Tracheal Collar O2 Flow Rate 8.0 8.0 8.0 07/05/20 07/05/20 07/05/20 07/05/20 20:00 20:23 20:26 23:00 Temp 99.2 99.2 Pulse 79 92 Resp 24 B/P (MAP) 114/60 160/79 (106) Pulse Ox 98 100 O2 Delivery Trach Collar Tracheal Collar Tracheal Collar O2 Flow Rate 8.0 8.0 8.0 07/06/20 07/06/20 07/06/20 07/06/20 03:00 07:00 08:00 09:13 Temp 99.0 99.2 99.0 99.2 Pulse 92 102 Resp 22 29 B/P (MAP) 154/84 (107) 167/82 (110) Pulse Ox 98 100 100 O2 Delivery Tracheal Collar Tracheal Collar Trach Collar Tracheal Collar O2 Flow Rate 8.0 8.0 8.0 8.0 07/06/20 07/06/20 07/06/20 07/06/20 09:34 09:34 09:36 11:00 Pulse 111 95 95 82 Resp 25 B/P (MAP) 126/68 126/68 126/68 143/84 (103) Pulse Ox 100 O2 Flow Rate 8.0 07/06/20 12:23 Pulse Ox 100 O2 Delivery Tracheal Collar O2 Flow Rate 8.0 Intake and Output 07/05/20 07/05/20 07/06/20 15:00 23:00 07:00 Intake Total 350 ml 619 ml 1262 ml Output Total 550 ml 255 ml 700 ml Balance -200 ml 364 ml 562 ml Justicifation of Admission Dx: Justifications for Admission: Justification of Admission Dx: N/A ERIKA CHEUNG MD Jul 06, 2020 13:52
--- NOTE | 2020-07-06 14:26 | NUR ---
report called to Brandy and pt transferring to room 526. Patients Brian aware of transfer and given all information.
[2020-07-06 15:00] VITALS: BP 113/68
[2020-07-06 19:00] VITALS: BP 123/62
[2020-07-06] MEDS: FAMOTIDINE 20 MG TABLET. GT SCH (20:43)
[2020-07-06] MEDS: ENOXAPARIN 40 MG/0.4 ML SYRINGE. SQ SCH (20:43)
[2020-07-06] MEDS: ATORVASTATIN CALCIUM 20 MG TABLET PO SCH (20:44)
[2020-07-06 23:12] VITALS: BP 123/77
[2020-07-07] MEDS: PIPERACILLIN/TAZOBACTAM 3.375 GM in IV NORMAL SALINE 50ML 50 ML IV SCH ×2 (00:40→06:11)
[2020-07-07 03:00] VITALS: BP 139/85
[2020-07-07] MEDS: LEVOTHYROXINE 75 MCG TABLET PO SCH (06:11)
--- NOTE | 2020-07-07 06:58 | PDOC ---
PULMONARY PROGRESS NOTES DATE: 07/07/20 TIME: 06:50 Subjective S/P cardiac arrest 06/17 eyes open doesnt follow commands appears comfortable Had TS some bloody secretio S/P trach on 06/26 S/P peg 06/27 Not much clinical change Vitals Vital Signs Date Time Temp Pulse Resp B/P (MAP) Pulse Ox O2 Delivery O2 Flow Rate FiO2 07/07/20 03:00 97.6 82 20 139/85 (103) 98 Room Air 97.6 07/06/20 23:12 15.0 Lungs: Clear Cardiovascular: S1, S2 Abdomen: Soft, Non-tender Extremities: No Edema Skin: Warm Labs Laboratory Tests Test 07/05/20 13:02 07/05/20 17:47 07/06/20 00:10 07/06/20 13:39 Glucose (Fingerstick) 104 mg/dL (70-99) 145 mg/dL (70-99) 115 mg/dL (70-99) 115 mg/dL (70-99) Test 07/07/20 00:26 Glucose (Fingerstick) 128 mg/dL (70-99) Laboratory Tests Test 07/06/20 13:39 07/07/20 00:26 Glucose (Fingerstick) 115 mg/dL (70-99) 128 mg/dL (70-99) Medications Active Scripts Medications Dose Route/Sig Max Daily Dose Days Date Category Acetaminophen-Diphenhyd 500-25 (Acetaminophen/Diphenhydramine) 1 Each Tablet 1 Each PO HS PRN 06/18/20 Reported Naproxen 500 Mg Tablet 1 Tab PO BID PRN 30 06/18/20 Reported Tramadol Hcl 50 Mg Tablet 50 Mg PO Q4HRS 06/18/20 Reported Levothyroxine Sodium 75 Mcg Tablet 1 Tab PO DAILY 06/18/20 Reported Adderall 20 Mg Tablet (Dextroamphetamine/Amphetamine) 20 Mg Tablet 1 Tab PO DAILY MDD 1 Tablet(s) 5 06/18/20 Reported Prozac (Fluoxetine Hcl) 20 Mg Capsule 1 Cap PO [id number] 06/18/20 Reported Comments CXR IMPRESSION: Left lung base opacities likely consolidative process such as pneumonia. Small left pleural effusion. Impression . IMPRESSION: 1. Acute respiratory failure secondary to [id number] cardiopulmonary arrest/ anoxic encephalopathy-- now S/P trach 2. Lvu-dq-[id number] ventricular fibrillation and asystole leading to anoxic brain injury. 3. Anoxic encephalopathy. 4. COVID neg 5. Morbid obesity. 6. Leukocytosis--improved 7. Lactic acidosis secondary to [id number]-sh-fjiidoxz cardiac arrest. 8. Abnormal x-ray revealing bibasilar atelectasis, infiltrates. 9. Pneumothorax secondary to CPR.resolved 10. Sternal sternal fracture secondary to CPR. 11. ? Pneumonia positive, gram-negative, gram-positive. Plan . PLAN: TS titrate fio2 to keep sat 92% monitor trach bloody secretion ? suction trauma hold lovenox if cont to have bloody secretion discussed w rn Clinically consistent with Anoxic encephalopathy Trach 06/26/20, PEG on 06/27/20 Follow CXR/ABG-- reviewed Follow infectious disease recommendations in regards to antibiotics, can dc zosyn .follow cultures no growth to date Follow neurology recs--no new recommendations Follow Cardiology recs-- post cardiac cath 06/25/20-- cath was clean w/ normal filling pressures Continue tube feeding for nutritional support DVT/GI PPX D/W RN and RT Social work for D/C planning --[facility] declined, family would like to give the patient a full 30 days to assess level of recovery before potentially withdrawing care. The patient would not have wanted to live on life support or with a feeding tube for prolonged period of time per family. PT. is FULL CODE MICHAELA HAQUE MD Jul 07, 2020 06:58
[2020-07-07 07:59] VITALS: BP 139/85
[2020-07-07] MEDS: IPRATRPIUM/ALBUTEROL 0.5/2.5MG 3 ML NEBU. NEB SCH ×4 (08:32→20:24)
--- NOTE | 2020-07-07 08:58 | PDOC ---
Infectious Disease Note Subjective: Subjective Pt tx out of icu does not follow any commands no fevers Tolerating tube feedings well No acute concerns per discussion with RN Vital Signs: Vital Signs Vital Signs Date Time Temp Pulse Resp B/P (MAP) Pulse Ox O2 Delivery O2 Flow Rate FiO2 07/07/20 08:39 95 Tracheal Collar 8.0 07/07/20 03:00 97.6 82 20 139/85 (103) 97.6 Physical Exam: PHYSICAL EXAM GENERAL: Opens eyes transiently, does not follow any commands, HEENT: Both pupils are round and reacting. No conjunctival lesion. NECK: Supple. Trach present, erythema and drainage present around trach site improving LUNGS: Decreased breath sounds bilaterally. HEART: S1, S2, regular. No gallop or murmur. ABDOMEN: Soft, nontender. No organomegaly.peg tube + fecal tube , Jolly present EXTREMITIES: No edema or cyanosis. toe amputation of the Rt foot,healed scars SKIN: Unremarkable. NEUROLOGICAL: Opens eyes transiently does not follow any commands Medications: Inpatient Meds: Current Medications Medications (Trade) Dose Ordered Sig/Rosalio Start Time Stop Time Status Last Admin Dose Admin Acetaminophen (Tylenol) 650 mg PRN Q6HRS PRN 07/06/20 13:30 Acetaminophen/ Hydrocodone Bitart (Lortab 7.5-325/ 15ml Oral Solution) 10 ml 1X ONCE 06/28/20 12:30 06/28/20 12:31 DC 06/28/20 12:37 10 ML Albuterol/ Ipratropium (Duoneb) 3 ml RTQID 06/18/20 20:00 07/07/20 08:32 3 ML Alteplase, Recombinant (Cathflo For Central Catheter Clearance) 1 mg 1X ONCE 07/03/20 08:45 07/03/20 08:46 DC 07/03/20 08:45 1 MG Amino Acids/ Glycerin/ Electrolytes 1,000 ml @ 80 mls/hr [id number] 06/25/20 17:30 06/28/20 11:35 DC 06/27/20 20:50 80 MLS/HR Amiodarone HCl (Cordarone) 400 mg DAILY 06/20/20 09:00 07/06/20 09:34 400 MG Amiodarone HCl 150 mg/Dextrose 103 ml @ 618 mls/hr 1X ONCE 06/17/20 07:00 1/3/21 07:09 DC 06/17/20 07:00 618 MLS/HR Amiodarone HCl 450 mg/Dextrose 259 ml @ 33 mls/hr 1X ONCE 06/17/20 07:00 06/17/20 14:50 DC Aspirin (Aspirin Chewable) 81 mg 1X ONCE 06/19/20 15:30 06/19/20 15:37 DC 06/19/20 15:57 81 MG Atorvastatin Calcium (Lipitor) 20 mg QHS 06/19/20 21:00 07/06/20 20:44 20 MG Atropine Sulfate (ATROPINE 0.5mg SYRINGE) 0.5 mg PRN Q5MIN PRN 06/21/20 10:45 06/29/20 11:47 DC Bupivacaine HCl (Sensorcaine Mpf 0.5%) 30 ml STK-MED ONCE 06/26/20 12:19 06/26/20 12:19 DC Buspirone HCl (Buspar) 30 mg Q8H 06/17/20 12:00 06/17/20 12:39 DC 06/17/20 12:31 30 MG Carvedilol (Coreg) 3.125 mg BIDWMEALS 06/19/20 17:00 07/06/20 17:00 3.125 MG Cellulose (Surgicel Fibrillar 1x2) 1 each STK-MED ONCE 06/26/20 13:25 06/26/20 13:25 DC 06/26/20 13:22 1 EACH Daptomycin 400 mg/ Sodium Chloride 50 ml @ 100 mls/hr Q24H 06/30/20 10:00 07/05/20 08:14 DC 07/04/20 09:25 100 MLS/HR Dexamethasone Sodium Phosphate (Decadron) 4 mg STK-MED ONCE 06/26/20 13:13 06/26/20 13:14 DC Dexmedetomidine HCl 400 mcg/ Sodium Chloride 100 ml @ 0 mls/hr CONT PRN 06/21/20 10:45 06/29/20 11:47 DC 06/29/20 06:11 15.1 MLS/HR Enoxaparin Sodium (Lovenox 40mg Syringe) 40 mg Q24H 06/18/20 21:00 07/06/20 20:43 40 MG Famotidine (Pepcid Vial) 20 mg BID 06/18/20 21:00 07/02/20 10:23 DC 07/02/20 08:05 20 MG Famotidine (Pepcid) 20 mg QHS 07/02/20 21:00 07/06/20 20:43 20 MG Fentanyl Citrate (Fentanyl 2ml Vial) 50 mcg PRN Q2HR PRN 06/23/20 16:45 07/03/20 04:14 50 MCG Furosemide (Lasix) 40 mg 1X ONCE 06/20/20 13:30 06/20/20 13:31 DC 06/20/20 14:38 40 MG Glycerin/ Hypromellose/ Polyethylene (Artificial Tears) 1 drop PRN Q15MIN PRN 06/17/20 12:00 06/17/20 12:39 DC Haloperidol (Haldol) 0.5 mg PRN Q8HRS PRN 07/05/20 10:45 Haloperidol Lactate (Haldol Inj) 2.5 mg PRN Q8HRS PRN 07/04/20 08:15 07/05/20 10:35 DC Heparin Sodium (Porcine) (Heparin Sodium) 2,500 unit 1X ONCE 06/25/20 15:15 06/25/20 15:16 DC 06/25/20 15:09 2,500 UNIT Heparin Sodium/ Sodium Chloride (HEPARIN for ARTERIAL LINE FLUSH) 1,000 unit 1X ONCE 06/25/20 15:15 06/25/20 15:16 DC 06/25/20 15:09 1,000 UNIT Info (CONTRAST GIVEN -- Rx MONITORING) 1 each PRN DAILY PRN 06/17/20 08:15 06/19/20 08:14 DC Iohexol (Omnipaque 300 Mg/ml) 30 ml 1X ONCE 06/25/20 15:15 06/25/20 15:16 DC 06/25/20 15:09 30 ML Iohexol (Omnipaque 350 Mg/ml) 100 ml 1X ONCE 06/17/20 08:15 06/17/20 08:16 DC 06/17/20 08:17 100 ML Levothyroxine Sodium (Synthroid) 75 mcg DAILY06 06/18/20 21:00 07/07/20 06:11 75 MCG Lidocaine HCl (Lidocaine 1% 20ml Vial) 20 ml 1X ONCE 06/17/20 09:15 06/17/20 09:20 DC 06/17/20 09:15 20 ML Lidocaine HCl (Lidocaine Pf 2% Vial) 5 ml STK-MED ONCE 06/27/20 09:54 06/27/20 09:54 DC Lidocaine HCl (Xylocaine-Mpf 1% 2ml Vial) 2 ml 1X ONCE 06/25/20 15:15 06/25/20 15:16 DC 06/25/20 15:09 2 ML Lidocaine HCl (Xylocaine-Mpf 1% 5ml Vial) 5 ml STK-MED ONCE 06/17/20 09:26 06/17/20 09:26 DC Lisinopril (Prinivil) 20 mg BID 07/04/20 21:00 07/06/20 20:44 20 MG Magnesium Sulfate/ Dextrose 100 ml @ 100 mls/hr 1X ONCE 06/17/20 12:00 06/17/20 12:39 DC 06/17/20 12:22 100 MLS/HR Micafungin Sodium 100 mg/Dextrose 100 ml @ 100 mls/hr Q24H 07/03/20 09:00 07/05/20 08:14 DC 07/05/20 08:04 100 MLS/HR Midazolam HCl 100 ml @ 0 mls/hr CONT PRN 06/25/20 11:45 06/29/20 11:47 DC 06/28/20 03:00 10 MLS/HR Midazolam HCl (Versed) 5 mg Q1HR PRN 06/17/20 12:45 06/29/20 13:48 5 MG Nitroglycerin (Nitroglycerin) 200 mcg 1X ONCE 06/25/20 15:15 06/25/20 15:16 DC 06/25/20 15:09 200 MCG Ondansetron HCl (Zofran) 4 mg STK-MED ONCE 06/26/20 13:13 06/26/20 13:13 DC Pantoprazole Sodium (PROTONIX VIAL for IV PUSH) 40 mg DAILY 06/18/20 09:00 06/17/20 12:39 DC Piperacillin Sod/ Tazobactam Sod (Zosyn Per Pharmacy) 1 each PRN DAILY PRN 06/17/20 08:45 06/27/20 11:36 DC Piperacillin Sod/ Tazobactam Sod 3.375 gm/Sodium Chloride 50 ml @ 100 mls/hr Q6HRS 06/29/20 10:00 07/07/20 06:11 100 MLS/HR Piperacillin Sod/ Tazobactam Sod 4.5 gm/Sodium Chloride 100 ml @ 200 mls/hr 1X ONCE 06/17/20 12:15 06/17/20 12:44 Cancel Potassium Bicarbonate (Potassium Effervescent Tablet) 40 meq 1X ONCE 06/18/20 09:45 06/18/20 09:48 DC 06/18/20 10:00 40 MEQ Potassium Chloride/Water 100 ml @ 100 mls/hr Q1H 06/25/20 18:00 06/25/20 19:59 DC 06/25/20 18:46 100 MLS/HR Prochlorperazine Edisylate (Compazine) 5 mg PACU PRN PRN 06/27/20 07:00 06/28/20 06:59 DC Propofol 100 ml @ 0 mls/hr CONT PRN 06/29/20 16:30 07/02/20 07:26 21.1 MLS/HR Propofol (Diprivan) 200 mg STK-MED ONCE 06/27/20 09:53 06/27/20 09:54 DC Ringer's Solution 1,000 ml @ 30 mls/hr Q24H 06/27/20 07:00 06/27/20 18:59 DC 06/27/20 08:39 30 MLS/HR Rocuronium Bagley (Zemuron) 50 mg STK-MED ONCE 06/26/20 11:37 06/26/20 11:38 DC Sevoflurane (Ultane) 30 ml STK-MED ONCE 06/26/20 13:37 06/26/20 13:38 DC Sodium Chloride 500 ml @ 500 mls/hr 1X PRN PRN 06/21/20 10:45 Vecuronium Bagley (Norcuron Bolus) 10 mg 1X ONCE 06/29/20 14:31 06/29/20 17:19 DC 06/29/20 14:31 10 MG Verapamil HCl (Verapamil) 2.5 mg 1X ONCE 06/25/20 15:15 06/25/20 15:16 DC 06/25/20 15:09 2.5 MG Labs: Lab Laboratory Tests Test 07/06/20 13:39 07/07/20 00:26 Glucose (Fingerstick) 115 mg/dL (70-99) 128 mg/dL (70-99) Micro RUN DATE: 07/02/20 [facility] LAB *LIVE* PAGE 1 RUN TIME: 1146 Specimen Inquiry PATIENT: BASILIO WHYTE ACCT: [id number] LOC: 1 [facility] U: [id number] AGE/SX: 59/F ROOM: 106 RE06/17/[address]: HUSSEIN GOODWIN III, DO : 1960 BED: 1 DIS: STATUS: ADM IN TLOC: SPEC #: [id number] BORA: 06/30/20 STATUS: RES REQ #: [id number] RECD: 07/01/[address]: HUSSEIN GOODWIN III, DO SOURCE: DRAINAGE ENTR: 07/01/[address]: JEFF FLORES MD SPDES: WOUND RENAE,POPPY PAUL,MELY MEHTA,NURA GARNER,KIRA ARIZMENDI MD, APRN, MICHAEL F MD ORDERED: ANAER/AEROB/GS COMMENTS: DRAINAGE/SECRETION FROM TRACH SITE Procedure Result GRAM STAIN Final Final SQUAMOUS EPI CELL:NONE SEEN PMN (WBCs):NONE SEEN YEAST:MANY Unless otherwise specified, Testing Performed by: [place] [address] For Inquires, the Physician may contact the Microbiology department at [phone] ANAEROBIC-AEROBIC CULTURE Preliminary Preliminary MANY YEAST on 07/02/20 at 0914 FINAL ID= [FILOMENA ALBICANS] FILOMENA ALBICANS Unless otherwise specified, Testing Performed by: [place] [address] For Inquires, the Physician may contact the Microbiology department at [phone] Objective: Assessment: 1. Cardiopulmonary arrest at home. With VT, shock then asystole s/p cardiac cath , normal coronaries Severe NICM Acute systolic CHF: compensated 2. Leukocytosis, likely reactive. resolved 3. Lactic acidosis from #1. 4. Respiratory failure. suspected aspiration; status post trach placement, swab culture from trach site with Filomena albicans 5. Anoxic Encephalopathy 6. Hypertension. 7. Pneumothorax.s/p CTS, 8. Rib fracture and sternal fracture. 9. Anemia 10. S/P Peg tube placement 11. Marijuana use: + UDS on amiodarone Plan: Plan of Care Discontinue Zosyn Augmentin cont supportive care Overall prognosis poor Discussed with SAÚL MAYES MD Jul 07, 2020 08:58
[2020-07-07] MEDS: ASPIRIN CHEWABLE 81 MG TABLET. PO SCH (09:00)
[2020-07-07] MEDS: LISINOPRIL 20 MG TABLET PO SCH ×2 (09:00→21:18)
[2020-07-07] MEDS: CARVEDILOL 3.125 MG TABLET. PO SCH ×2 (09:01→17:16)
[2020-07-07] MEDS: AMIODARONE HCL 200 MG TABLET. PO SCH (09:01)
[2020-07-07 11:59] VITALS: BP 153/76
[2020-07-07 15:59] VITALS: BP 133/79
--- NOTE | 2020-07-07 16:31 | PDOC ---
[employer] PROGRESS NOTE Date of Service DOS: DATE: 07/07/20 TIME: 16:29 Chief Complaint Chief Complaint POST covid cardiomyopathy acute systolic CHF Severe NICM: EF 25%. No significant CAD per [facility] anoxic brain injury Cardiac arrest with resuscitation and probable pneumonia, sternal fracture and pneumothorax secondary to CPR, leukocytosis, electrolyte disturbance, hypokalemia, lactic acidosis, elevated troponin. History of Present Illness History of Present Illness 07/07. Transfer out of ICU to the medical floors. Discussed with , he feels that music is helping patient. She will occasionally check in with eyes, but no purposeful movements. Has been mentioned trying to give 30 days for admission to show any signs of meaningful improvement. At which time decision will be made about hospice in future goals of care. 07/06, will transfer to floor, no tele, off vent now for some time. discussed with , she does seem improved, she had a tiny smile to some music earlier, still not following commands or any purposeful response 07/05, about the same, discussed my previous thoughts again with and son, not following commands, movement is seeming to be mostly reflexive. they still want to cont iwth the 30 days plan to give her a chance to improve. I discussed possible transition to hospice, they want to wait until that time. 07/04-, minmal change, some relfexive movements, had a video of her withdrawing to light touch to face, soem work with PT, not following commands as directed I discussed poor prognosis with at length, that as days go by, her chances for meaningful recovery continue to dim. I discussed consideration of hospice care. 07/03/2020, discussed plan with family at length yesterday Patient seen and examined in the ICU plan LTAC start PT and OT moving around a lot She is still not very responsive but at the same time kind of agitated Vitals/I&O Vitals/I&O: Vital Signs Date Time Temp Pulse Resp B/P (MAP) Pulse Ox O2 Delivery O2 Flow Rate FiO2 07/07/20 12:36 Tracheal Collar 8.0 07/07/20 11:59 98.0 79 22 153/76 (101) 98 98.0 I & O 07/06/20 07/06/20 07/07/20 15:00 23:00 07:00 Intake Total 550 ml 225 ml 0 ml Output Total 950 ml 200 ml Balance -400 ml 225 ml -200 ml Physical Exam Physical Exam: GENERAL: Opens eyes transiently, does not follow any commands, HEENT: Both pupils are round and reacting. No conjunctival lesion. NECK: Supple. Trach present, erythema and drainage present around trach site improving LUNGS: Decreased breath sounds bilaterally. HEART: S1, S2, regular. No gallop or murmur. ABDOMEN: Soft, nontender. No organomegaly.peg tube + fecal tube , Jolly present EXTREMITIES: No edema or cyanosis. toe amputation of the Rt foot,healed scars SKIN: Unremarkable. NEUROLOGICAL: Opens eyes transiently does not follow any commands General: No acute distress Heart: Regular rate, Normal S1, Normal S2 Lungs: Clear Abdomen: Soft, No masses Extremities: No cyanosis Skin: No rashes, No breakdown Labs Labs: Laboratory Tests Test 07/07/20 00:26 07/07/20 06:35 07/07/20 12:22 Glucose (Fingerstick) 128 mg/dL (70-99) 114 mg/dL (70-99) 129 mg/dL (70-99) Assessment and Plan Assessmemt and Plan Problems Medical Problems: (1) Cardiac arrest Status: Acute (2) Fracture of ribs, multiple Status: Acute (3) Hyperglycemia Status: Acute (4) Pneumonia Status: Acute (5) Pneumothorax, right Status: Acute (6) Sternal fracture Status: Acute (7) VF (ventricular fibrillation) Status: Acute Comment Review of Relevant I have reviewed the following items afua (where applicable) has been applied. Justifications for Admission Other Justification LASHELL SILVER MD Jul 07, 2020 16:31
[2020-07-07 19:00] VITALS: BP 140/62
[2020-07-07] MEDS: ENOXAPARIN 40 MG/0.4 ML SYRINGE. SQ SCH (21:17)
[2020-07-07] MEDS: FAMOTIDINE 20 MG TABLET. GT SCH (21:17)
[2020-07-07] MEDS: ATORVASTATIN CALCIUM 20 MG TABLET PO SCH (21:18)
[2020-07-07] MEDS: AMOXICILLIN/K CLAV 875/125MG TABLET. PO SCH (21:18)
[2020-07-07 23:01] VITALS: BP 109/61
[2020-07-08 03:03] VITALS: BP 148/67
[2020-07-08] MEDS: LEVOTHYROXINE 75 MCG TABLET PO SCH (06:06)
[2020-07-08 07:59] VITALS: BP 133/74
--- NOTE | 2020-07-08 08:06 | PDOC ---
Infectious Disease Note Subjective: Subjective Pt tx out of icu does not follow any commands no fevers Tolerating tube feedings well No acute concerns per discussion with RN Vital Signs: Vital Signs Vital Signs Date Time Temp Pulse Resp B/P (MAP) Pulse Ox O2 Delivery O2 Flow Rate FiO2 07/08/20 03:03 97.4 87 18 148/67 (94) 99 Tracheal Collar 97.4 07/07/20 20:27 8.0 Physical Exam: PHYSICAL EXAM GENERAL: Opens eyes transiently, does not follow any commands, HEENT: Both pupils are round and reacting. No conjunctival lesion. NECK: Supple. Trach present, erythema and drainage present around trach site improving LUNGS: Decreased breath sounds bilaterally. HEART: S1, S2, regular. No gallop or murmur. ABDOMEN: Soft, nontender. No organomegaly.peg tube + fecal tube , Jolly present EXTREMITIES: No edema or cyanosis. toe amputation of the Rt foot,healed scars SKIN: Unremarkable. NEUROLOGICAL: Opens eyes transiently does not follow any commands Medications: Inpatient Meds: Current Medications Medications (Trade) Dose Ordered Sig/Rosalio Start Time Stop Time Status Last Admin Dose Admin Acetaminophen (Tylenol) 650 mg PRN Q6HRS PRN 07/06/20 13:30 Acetaminophen/ Hydrocodone Bitart (Lortab 7.5-325/ 15ml Oral Solution) 10 ml 1X ONCE 06/28/20 12:30 06/28/20 12:31 DC 06/28/20 12:37 10 ML Albuterol/ Ipratropium (Duoneb) 3 ml RTQID 06/18/20 20:00 07/07/20 20:24 3 ML Alteplase, Recombinant (Cathflo For Central Catheter Clearance) 1 mg 1X ONCE 07/03/20 08:45 07/03/20 08:46 DC 07/03/20 08:45 1 MG Amino Acids/ Glycerin/ Electrolytes 1,000 ml @ 80 mls/hr [id number] 06/25/20 17:30 06/28/20 11:35 DC 06/27/20 20:50 80 MLS/HR Amiodarone HCl (Cordarone) 400 mg DAILY 06/20/20 09:00 07/07/20 09:01 400 MG Amiodarone HCl 150 mg/Dextrose 103 ml @ 618 mls/hr 1X ONCE 06/17/20 07:00 1/3/21 07:09 DC 06/17/20 07:00 618 MLS/HR Amiodarone HCl 450 mg/Dextrose 259 ml @ 33 mls/hr 1X ONCE 06/17/20 07:00 06/17/20 14:50 DC Amoxicillin/ Clavulanate Potassium (Augmentin 875/ 125mg) 1 tab BID 07/07/20 21:00 07/07/20 21:18 1 TAB Aspirin (Aspirin Chewable) 81 mg 1X ONCE 06/19/20 15:30 06/19/20 15:37 DC 06/19/20 15:57 81 MG Atorvastatin Calcium (Lipitor) 20 mg QHS 06/19/20 21:00 07/07/20 21:18 20 MG Atropine Sulfate (ATROPINE 0.5mg SYRINGE) 0.5 mg PRN Q5MIN PRN 06/21/20 10:45 06/29/20 11:47 DC Bupivacaine HCl (Sensorcaine Mpf 0.5%) 30 ml STK-MED ONCE 06/26/20 12:19 06/26/20 12:19 DC Buspirone HCl (Buspar) 30 mg Q8H 06/17/20 12:00 06/17/20 12:39 DC 06/17/20 12:31 30 MG Carvedilol (Coreg) 3.125 mg BIDWMEALS 06/19/20 17:00 07/07/20 17:16 3.125 MG Cellulose (Surgicel Fibrillar 1x2) 1 each STK-MED ONCE 06/26/20 13:25 06/26/20 13:25 DC 06/26/20 13:22 1 EACH Daptomycin 400 mg/ Sodium Chloride 50 ml @ 100 mls/hr Q24H 06/30/20 10:00 07/05/20 08:14 DC 07/04/20 09:25 100 MLS/HR Dexamethasone Sodium Phosphate (Decadron) 4 mg STK-MED ONCE 06/26/20 13:13 06/26/20 13:14 DC Dexmedetomidine HCl 400 mcg/ Sodium Chloride 100 ml @ 0 mls/hr CONT PRN 06/21/20 10:45 06/29/20 11:47 DC 06/29/20 06:11 15.1 MLS/HR Enoxaparin Sodium (Lovenox 40mg Syringe) 40 mg Q24H 06/18/20 21:00 07/07/20 21:17 40 MG Famotidine (Pepcid Vial) 20 mg BID 06/18/20 21:00 07/02/20 10:23 DC 07/02/20 08:05 20 MG Famotidine (Pepcid) 20 mg QHS 07/02/20 21:00 07/07/20 21:17 20 MG Fentanyl Citrate (Fentanyl 2ml Vial) 50 mcg PRN Q2HR PRN 06/23/20 16:45 07/03/20 04:14 50 MCG Furosemide (Lasix) 40 mg 1X ONCE 06/20/20 13:30 06/20/20 13:31 DC 06/20/20 14:38 40 MG Glycerin/ Hypromellose/ Polyethylene (Artificial Tears) 1 drop PRN Q15MIN PRN 06/17/20 12:00 06/17/20 12:39 DC Haloperidol (Haldol) 0.5 mg PRN Q8HRS PRN 07/05/20 10:45 Haloperidol Lactate (Haldol Inj) 2.5 mg PRN Q8HRS PRN 07/04/20 08:15 07/05/20 10:35 DC Heparin Sodium (Porcine) (Heparin Sodium) 2,500 unit 1X ONCE 06/25/20 15:15 06/25/20 15:16 DC 06/25/20 15:09 2,500 UNIT Heparin Sodium/ Sodium Chloride (HEPARIN for ARTERIAL LINE FLUSH) 1,000 unit 1X ONCE 06/25/20 15:15 06/25/20 15:16 DC 06/25/20 15:09 1,000 UNIT Info (CONTRAST GIVEN -- Rx MONITORING) 1 each PRN DAILY PRN 06/17/20 08:15 06/19/20 08:14 DC Iohexol (Omnipaque 300 Mg/ml) 30 ml 1X ONCE 06/25/20 15:15 06/25/20 15:16 DC 06/25/20 15:09 30 ML Iohexol (Omnipaque 350 Mg/ml) 100 ml 1X ONCE 06/17/20 08:15 06/17/20 08:16 DC 06/17/20 08:17 100 ML Levothyroxine Sodium (Synthroid) 75 mcg DAILY06 06/18/20 21:00 07/08/20 06:06 75 MCG Lidocaine HCl (Lidocaine 1% 20ml Vial) 20 ml 1X ONCE 06/17/20 09:15 06/17/20 09:20 DC 06/17/20 09:15 20 ML Lidocaine HCl (Lidocaine Pf 2% Vial) 5 ml STK-MED ONCE 06/27/20 09:54 06/27/20 09:54 DC Lidocaine HCl (Xylocaine-Mpf 1% 2ml Vial) 2 ml 1X ONCE 06/25/20 15:15 06/25/20 15:16 DC 06/25/20 15:09 2 ML Lidocaine HCl (Xylocaine-Mpf 1% 5ml Vial) 5 ml STK-MED ONCE 06/17/20 09:26 06/17/20 09:26 DC Lisinopril (Prinivil) 20 mg BID 07/04/20 21:00 07/07/20 21:18 20 MG Magnesium Sulfate/ Dextrose 100 ml @ 100 mls/hr 1X ONCE 06/17/20 12:00 06/17/20 12:39 DC 06/17/20 12:22 100 MLS/HR Micafungin Sodium 100 mg/Dextrose 100 ml @ 100 mls/hr Q24H 07/03/20 09:00 07/05/20 08:14 DC 07/05/20 08:04 100 MLS/HR Midazolam HCl 100 ml @ 0 mls/hr CONT PRN 06/25/20 11:45 06/29/20 11:47 DC 06/28/20 03:00 10 MLS/HR Midazolam HCl (Versed) 5 mg Q1HR PRN 06/17/20 12:45 06/29/20 13:48 5 MG Nitroglycerin (Nitroglycerin) 200 mcg 1X ONCE 06/25/20 15:15 06/25/20 15:16 DC 06/25/20 15:09 200 MCG Ondansetron HCl (Zofran) 4 mg STK-MED ONCE 06/26/20 13:13 06/26/20 13:13 DC Pantoprazole Sodium (PROTONIX VIAL for IV PUSH) 40 mg DAILY 06/18/20 09:00 06/17/20 12:39 DC Piperacillin Sod/ Tazobactam Sod (Zosyn Per Pharmacy) 1 each PRN DAILY PRN 06/17/20 08:45 06/27/20 11:36 DC Piperacillin Sod/ Tazobactam Sod 3.375 gm/Sodium Chloride 50 ml @ 100 mls/hr Q6HRS 06/29/20 10:00 07/07/20 09:51 DC 07/07/20 06:11 100 MLS/HR Piperacillin Sod/ Tazobactam Sod 4.5 gm/Sodium Chloride 100 ml @ 200 mls/hr 1X ONCE 06/17/20 12:15 06/17/20 12:44 Cancel Potassium Bicarbonate (Potassium Effervescent Tablet) 40 meq 1X ONCE 06/18/20 09:45 06/18/20 09:48 DC 06/18/20 10:00 40 MEQ Potassium Chloride/Water 100 ml @ 100 mls/hr Q1H 06/25/20 18:00 06/25/20 19:59 DC 06/25/20 18:46 100 MLS/HR Prochlorperazine Edisylate (Compazine) 5 mg PACU PRN PRN 06/27/20 07:00 06/28/20 06:59 DC Propofol 100 ml @ 0 mls/hr CONT PRN 06/29/20 16:30 07/02/20 07:26 21.1 MLS/HR Propofol (Diprivan) 200 mg STK-MED ONCE 06/27/20 09:53 06/27/20 09:54 DC Ringer's Solution 1,000 ml @ 30 mls/hr Q24H 06/27/20 07:00 06/27/20 18:59 DC 06/27/20 08:39 30 MLS/HR Rocuronium Cory (Zemuron) 50 mg STK-MED ONCE 06/26/20 11:37 06/26/20 11:38 DC Sevoflurane (Ultane) 30 ml STK-MED ONCE 06/26/20 13:37 06/26/20 13:38 DC Sodium Chloride 500 ml @ 500 mls/hr 1X PRN PRN 06/21/20 10:45 Vecuronium Cory (Norcuron Bolus) 10 mg 1X ONCE 06/29/20 14:31 06/29/20 17:19 DC 06/29/20 14:31 10 MG Verapamil HCl (Verapamil) 2.5 mg 1X ONCE 06/25/20 15:15 06/25/20 15:16 DC 06/25/20 15:09 2.5 MG Labs: Lab Laboratory Tests Test 07/07/20 12:22 07/07/20 17:23 07/07/20 23:32 07/08/20 05:44 Glucose (Fingerstick) 129 mg/dL (70-99) 116 mg/dL (70-99) 135 mg/dL (70-99) 112 mg/dL (70-99) Micro RUN DATE: 07/02/20 [facility] LAB *LIVE* PAGE 1 RUN TIME: 1146 Specimen Inquiry PATIENT: BASILIO WHYTE ACCT: [id number] LOC: 1 [facility] U: [id number] AGE/SX: 59/F ROOM: 106 RE06/17/[address]: HUSSEIN GOODWIN III, DO : 1960 BED: 1 DIS: STATUS: ADM IN TLOC: SPEC #: [id number] BORA: 06/30/20 STATUS: RES REQ #: [id number] RECD: 07/01/[address] [facility] [address]: HUSSEIN GOODWIN III DO SOURCE: DRAINAGE ENTR: 07/01/[address]: JEFF FLORES MD [facility]: WOUND RENAE,POPPY PAUL,MELY MEHTA,NURA GARNER,NIKA BARRAGAN,KIRA SAENZ,MARGOTH House MD ORDERED: ANAER/AEROB/GS COMMENTS: DRAINAGE/SECRETION FROM TRACH SITE Procedure Result GRAM STAIN Final Final SQUAMOUS EPI CELL:NONE SEEN PMN (WBCs):NONE SEEN YEAST:MANY Unless otherwise specified, Testing Performed by: [address] [address] For Inquires, the Physician may contact the Microbiology department at [phone] ANAEROBIC-AEROBIC CULTURE Preliminary Preliminary MANY YEAST on 07/02/20 at 0914 FINAL ID= [FILOMENA ALBICANS] FILOMENA ALBICANS Unless otherwise specified, Testing Performed by: [address] [address] For Inquires, the Physician may contact the Microbiology department at [phone] Objective: Assessment: 1. Cardiopulmonary arrest at home. With VT, shock then asystole s/p cardiac cath , normal coronaries Severe NICM Acute systolic CHF: compensated 2. Leukocytosis, likely reactive. resolved 3. Lactic acidosis from #1. 4. Respiratory failure. suspected aspiration; status post trach placement, swab culture from trach site with Filomena albicans 5. Anoxic Encephalopathy 6. Hypertension. 7. Pneumothorax.s/p CTS, 8. Rib fracture and sternal fracture. 9. Anemia 10. S/P Peg tube placement 11. Marijuana use: + UDS on amiodarone Plan: Plan of Care Discontinue Zosyn Augmentin cont supportive care Overall prognosis poor Discussed with SAÚL MAYES MD Jul 08, 2020 08:06
--- NOTE | 2020-07-08 08:31 | PDOC ---
[employer] PROGRESS NOTE Date of Service DOS: DATE: 07/08/20 TIME: 08:30 Chief Complaint Chief Complaint POST covid cardiomyopathy acute systolic CHF Severe NICM: EF 25%. No significant CAD per [facility] anoxic brain injury Cardiac arrest with resuscitation and probable pneumonia, sternal fracture and pneumothorax secondary to CPR, leukocytosis, electrolyte disturbance, hypokalemia, lactic acidosis, elevated troponin. History of Present Illness History of Present Illness 07/08: Patient seen and evaluated with at bedside. No significant change overnight, still no purposeful movements. Sounds as though family still plans to hold off on any change in CODE STATUS or goals of care until at least 30 days after admission date. did show me some video of patient smiling and having meaningful exchange with a family friend today. 07/07. Transfer out of ICU to the medical floors. Discussed with , he feels that music is helping patient. She will occasionally check in with eyes, but no purposeful movements. Has been mentioned trying to give 30 days for admission to show any signs of meaningful improvement. At which time decision will be made about hospice in future goals of care. 07/06, will transfer to floor, no tele, off vent now for some time. discussed with , she does seem improved, she had a tiny smile to some music earlier, still not following commands or any purposeful response 07/05, about the same, discussed my previous thoughts again with and son, not following commands, movement is seeming to be mostly reflexive. they still want to cont iwth the 30 days plan to give her a chance to improve. I discussed possible transition to hospice, they want to wait until that time. 07/04-, minmal change, some relfexive movements, had a video of her withdrawing to light touch to face, soem work with PT, not following commands as directed I discussed poor prognosis with at length, that as days go by, her chances for meaningful recovery continue to dim. I discussed consideration of hospice care. 07/03/2020, discussed plan with family at length yesterday Patient seen and examined in the ICU plan LTAC start PT and OT moving around a lot She is still not very responsive but at the same time kind of agitated Vitals/I&O Vitals/I&O: Vital Signs Date Time Temp Pulse Resp B/P (MAP) Pulse Ox O2 Delivery O2 Flow Rate FiO2 07/08/20 03:03 97.4 87 18 148/67 (94) 99 Tracheal Collar 97.4 07/07/20 20:27 8.0 I & O 07/07/20 07/07/20 07/08/20 15:00 23:00 07:00 Intake Total 925 ml 875 ml 400 ml Output Total 850 ml Balance 925 ml 875 ml -450 ml Physical Exam Physical Exam: GENERAL: Opens eyes transiently, does not follow any commands, HEENT: Both pupils are round and reacting. No conjunctival lesion. NECK: Supple. Trach present, erythema and drainage present around trach site improving LUNGS: Decreased breath sounds bilaterally. HEART: S1, S2, regular. No gallop or murmur. ABDOMEN: Soft, nontender. No organomegaly.peg tube + fecal tube , Jolly present EXTREMITIES: No edema or cyanosis. toe amputation of the Rt foot,healed scars SKIN: Unremarkable. NEUROLOGICAL: Opens eyes transiently does not follow any commands General: No acute distress Heart: Regular rate, Normal S1, Normal S2 Lungs: Clear Abdomen: Soft, No masses Extremities: No cyanosis Skin: No rashes, No breakdown Labs Labs: Laboratory Tests Test 07/07/20 12:22 07/07/20 17:23 07/07/20 23:32 07/08/20 05:44 Glucose (Fingerstick) 129 mg/dL (70-99) 116 mg/dL (70-99) 135 mg/dL (70-99) 112 mg/dL (70-99) Assessment and Plan Assessmemt and Plan Problems Medical Problems: (1) Cardiac arrest Status: Acute (2) Fracture of ribs, multiple Status: Acute (3) Hyperglycemia Status: Acute (4) Pneumonia Status: Acute (5) Pneumothorax, right Status: Acute (6) Sternal fracture Status: Acute (7) VF (ventricular fibrillation) Status: Acute Comment Review of Relevant I have reviewed the following items afua (where applicable) has been applied. Medications: Current Medications Medications (Trade) Dose Ordered Sig/Rosalio Route PRN Reason Start Time Stop Time Status Last Admin Dose Admin Amoxicillin/ Clavulanate Potassium (Augmentin 875/ 125mg) 1 tab BID PO 07/07/20 21:00 07/07/20 21:18 Justifications for Admission Other Justification LASHELL SILVER MD Jul 08, 2020 08:31
[2020-07-08] MEDS: IPRATRPIUM/ALBUTEROL 0.5/2.5MG 3 ML NEBU. NEB SCH ×4 (08:40→19:52)
[2020-07-08] MEDS: AMIODARONE HCL 200 MG TABLET. PO SCH (09:42)
[2020-07-08] MEDS: AMOXICILLIN/K CLAV 875/125MG TABLET. PO SCH ×2 (09:43→21:11)
[2020-07-08] MEDS: CARVEDILOL 3.125 MG TABLET. PO SCH ×2 (09:44→17:47)
[2020-07-08] MEDS: ASPIRIN CHEWABLE 81 MG TABLET. PO SCH (09:45)
[2020-07-08] MEDS: LISINOPRIL 20 MG TABLET PO SCH ×2 (09:45→21:12)
[2020-07-08 11:59] VITALS: BP 159/69
--- NOTE | 2020-07-08 13:15 | NUR ---
Patient trach collar and inner cannula changed today per protocol. Patient coughed a bit and was suctioned afterward, and then appeared comfortable. Central line dressing changed and caps on lines per protocol. Will continue to monitor.
[2020-07-08 15:59] VITALS: BP 129/72
[2020-07-08 19:00] VITALS: BP 146/72
[2020-07-08] MEDS: FAMOTIDINE 20 MG TABLET. GT SCH (21:12)
[2020-07-08] MEDS: ENOXAPARIN 40 MG/0.4 ML SYRINGE. SQ SCH (21:12)
[2020-07-08] MEDS: ATORVASTATIN CALCIUM 20 MG TABLET PO SCH (21:12)
[2020-07-08 23:01] VITALS: BP 126/62
[2020-07-09 03:08] VITALS: BP 107/61
[2020-07-09] MEDS: LEVOTHYROXINE 75 MCG TABLET PO SCH (04:44)
[2020-07-09 05:29] LABS: BASO # 0.1 x10^3/uL (0.0-0.2); BASO % 1 % (0-3); EOS # 0.9 x10^3/uL (0.0-0.7); EOS % 7 % (0-3); HEMATOCRIT 39.2 % (36.0-47.0); HEMOGLOBIN 12.7 g/dL (12.0-15.5); LYMPH % 16 % (24-48); MEAN CORPUSCULAR HEMOGLOBIN 30 pg (25-35); MEAN CORPUSCULAR HGB CONC 32 g/dL (31-37); MEAN CORPUSCULAR VOLUME 92 fL (79-100); MONO # 0.7 x10^3/uL (0.0-1.1); MONO % 5 % (0-9); NEUT # 9.2 x10^3/uL (1.8-7.7); NEUT % 72 % (31-73); PLATELET COUNT 506 x10^3/uL (140-400); RED BLOOD COUNT 4.28 x10^6/uL (3.50-5.40); RED CELL DISTRIBUTION WIDTH 13.4 % (11.5-14.5); WHITE BLOOD COUNT 12.8 x10^3/uL (4.0-11.0)
[2020-07-09 05:34] LABS: CALCIUM 9.7 mg/dL (8.5-10.1); CREATININE 0.7 mg/dL (0.6-1.0); GFR 86.2; POTASSIUM 3.8 mmol/L (3.5-5.1)
[2020-07-09 07:00] VITALS: BP 145/71
[2020-07-09] MEDS: IPRATRPIUM/ALBUTEROL 0.5/2.5MG 3 ML NEBU. NEB SCH ×4 (07:12→20:41)
[2020-07-09] MEDS: ASPIRIN CHEWABLE 81 MG TABLET. PO SCH (08:32)
[2020-07-09] MEDS: LISINOPRIL 20 MG TABLET PO SCH ×2 (08:33→21:21)
[2020-07-09] MEDS: AMOXICILLIN/K CLAV 875/125MG TABLET. PO SCH ×2 (08:33→21:20)
[2020-07-09] MEDS: CARVEDILOL 3.125 MG TABLET. PO SCH ×2 (08:33→17:07)
[2020-07-09] MEDS: AMIODARONE HCL 200 MG TABLET. PO SCH (08:33)
[2020-07-09] MEDS: ACETAMINOPHEN 325 MG TABLET. PO PRN ×2 (08:38→21:20)
--- NOTE | 2020-07-09 08:56 | PDOC ---
PROGRESS NOTES Date of Service: DATE: 07/09/20 TIME: 08:56 Chief Complaint Chief Complaint POST covid cardiomyopathy acute systolic CHF Severe NICM: EF 25%. No significant CAD per [facility] anoxic brain injury Cardiac arrest with resuscitation and probable pneumonia, sternal fracture and pneumothorax secondary to CPR, leukocytosis, electrolyte disturbance, hypokalemia, lactic acidosis, elevated troponin. 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 No significant change overnight, still no purposeful movements. Sounds as though family still plans to hold off on any change in CODE STATUS or goals of care until at least 30 days after admission date. did show me some video of patient smiling and having meaningful exchange with a family friend today. 07/07. Transfer out of ICU to the medical floors. Discussed with , he feels that music is helping patient. She will occasionally check in with eyes, but no purposeful movements. Has been mentioned trying to give 30 days for admission to show any signs of meaningful improvement. At which time decision w ill be made about hospice in future goals of care. 07/06, will transfer to floor, no tele, off vent now for some time. discussed with , she does seem improved, she had a tiny smile to some music earlier, still not following commands or any purposeful response 07/05, about the same, discussed my previous thoughts again with and son, not following commands, movement is seeming to be mostly reflexive. they still want to cont iwth the 30 days plan to give her a chance to improve. I discussed possible transition to hospice, they want to wait until that time. 07/04-, minmal change, some relfexive movements, had a video of her withdrawing to light touch to face, soem work with PT, not following commands as directed I discussed poor prognosis with at length, that as days go by, her chances for meaningful recovery continue to dim. I discussed consideration of hospice care. 07/03/2020, discussed plan with family at length yesterday Patient seen and examined in the ICU plan LTAC start PT and OT moving around a lot She is still not very responsive but at the same time kind of agitated Vitals Vitals Vital Signs Date Time Temp Pulse Resp B/P (MAP) Pulse Ox O2 Delivery O2 Flow Rate FiO2 07/09/20 08:33 71 145/71 07/09/20 07:12 97 Tracheal Collar 8.0 07/09/20 07:00 97.5 18 97.5 Physical Exam Physical Exam GENERAL: Opens eyes transiently, does not follow any commands, HEENT: Both pupils are round and reacting. No conjunctival lesion. NECK: Supple. Trach present, erythema and drainage present around trach site improving LUNGS: Decreased breath sounds bilaterally. HEART: S1, S2, regular. No gallop or murmur. ABDOMEN: Soft, nontender. No organomegaly.peg tube + fecal tube , Jolly present EXTREMITIES: No edema or cyanosis. toe amputation of the Rt foot,healed scars SKIN: Unremarkable. NEUROLOGICAL: Opens eyes transiently does not follow any commands General: No acute distress Heart: Regular rate, Normal S1, Normal S2 Lungs: Clear Abdomen: Soft, No masses Extremities: No cyanosis Skin: No rashes, No breakdown Labs LABS Laboratory Tests Test 07/08/20 12:25 07/08/20 19:02 07/08/20 23:50 07/09/20 05:10 Glucose (Fingerstick) 129 mg/dL (70-99) 129 mg/dL (70-99) 143 mg/dL (70-99) White Blood Count 12.8 x10^3/uL (4.0-11.0) Red Blood Count 4.28 x10^6/uL (3.50-5.40) Hemoglobin 12.7 g/dL (12.0-15.5) Hematocrit 39.2 % (36.0-47.0) Mean Corpuscular Volume 92 fL (79-100) Mean Corpuscular Hemoglobin 30 pg (25-35) Mean Corpuscular Hemoglobin Concent 32 g/dL (31-37) Red Cell Distribution Width 13.4 % (11.5-14.5) Platelet Count 506 x10^3/uL (140-400) Neutrophils (%) (Auto) 72 % (31-73) Lymphocytes (%) (Auto) 16 % (24-48) Monocytes (%) (Auto) 5 % (0-9) Eosinophils (%) (Auto) 7 % (0-3) Basophils (%) (Auto) 1 % (0-3) Neutrophils # (Auto) 9.2 x10^3/uL (1.8-7.7) Lymphocytes # (Auto) 2.0 x10^3/uL (1.0-4.8) Monocytes # (Auto) 0.7 x10^3/uL (0.0-1.1) Eosinophils # (Auto) 0.9 x10^3/uL (0.0-0.7) Basophils # (Auto) 0.1 x10^3/uL (0.0-0.2) Sodium Level 146 mmol/L (136-145) Potassium Level 3.8 mmol/L (3.5-5.1) Chloride Level 106 mmol/L (98-107) Carbon Dioxide Level 30 mmol/L (21-32) Anion Gap 10 (6-14) Blood Urea Nitrogen 26 mg/dL (7-20) Creatinine 0.7 mg/dL (0.6-1.0) Estimated GFR (Cockcroft-Gault) 86.2 Glucose Level 108 mg/dL (70-99) Calcium Level 9.7 mg/dL (8.5-10.1) Test 07/09/20 05:45 Glucose (Fingerstick) 119 mg/dL (70-99) Assessment and Plan Assessmemt and Plan Problems Medical Problems: (1) Cardiac arrest Status: Acute (2) Fracture of ribs, multiple Status: Acute (3) Hyperglycemia Status: Acute (4) Pneumonia Status: Acute (5) Pneumothorax, right Status: Acute (6) Sternal fracture Status: Acute (7) VF (ventricular fibrillation) Status: Acute Comment Review of Relevant I have reviewed the following items afua (where applicable) has been applied. Labs Laboratory Tests Test 07/07/20 12:22 07/07/20 17:23 07/07/20 23:32 07/08/20 05:44 Glucose (Fingerstick) 129 mg/dL (70-99) 116 mg/dL (70-99) 135 mg/dL (70-99) 112 mg/dL (70-99) Test 07/08/20 12:25 07/08/20 19:02 07/08/20 23:50 07/09/20 05:10 Glucose (Fingerstick) 129 mg/dL (70-99) 129 mg/dL (70-99) 143 mg/dL (70-99) White Blood Count 12.8 x10^3/uL (4.0-11.0) Red Blood Count 4.28 x10^6/uL (3.50-5.40) Hemoglobin 12.7 g/dL (12.0-15.5) Hematocrit 39.2 % (36.0-47.0) Mean Corpuscular Volume 92 fL (79-100) Mean Corpuscular Hemoglobin 30 pg (25-35) Mean Corpuscular Hemoglobin Concent 32 g/dL (31-37) Red Cell Distribution Width 13.4 % (11.5-14.5) Platelet Count 506 x10^3/uL (140-400) Neutrophils (%) (Auto) 72 % (31-73) Lymphocytes (%) (Auto) 16 % (24-48) Monocytes (%) (Auto) 5 % (0-9) Eosinophils (%) (Auto) 7 % (0-3) Basophils (%) (Auto) 1 % (0-3) Neutrophils # (Auto) 9.2 x10^3/uL (1.8-7.7) Lymphocytes # (Auto) 2.0 x10^3/uL (1.0-4.8) Monocytes # (Auto) 0.7 x10^3/uL (0.0-1.1) Eosinophils # (Auto) 0.9 x10^3/uL (0.0-0.7) Basophils # (Auto) 0.1 x10^3/uL (0.0-0.2) Sodium Level 146 mmol/L (136-145) Potassium Level 3.8 mmol/L (3.5-5.1) Chloride Level 106 mmol/L (98-107) Carbon Dioxide Level 30 mmol/L (21-32) Anion Gap 10 (6-14) Blood Urea Nitrogen 26 mg/dL (7-20) Creatinine 0.7 mg/dL (0.6-1.0) Estimated GFR (Cockcroft-Gault) 86.2 Glucose Level 108 mg/dL (70-99) Calcium Level 9.7 mg/dL (8.5-10.1) Test 07/09/20 05:45 Glucose (Fingerstick) 119 mg/dL (70-99) Laboratory Tests Test 07/08/20 12:25 07/08/20 19:02 07/08/20 23:50 07/09/20 05:10 Glucose (Fingerstick) 129 mg/dL (70-99) 129 mg/dL (70-99) 143 mg/dL (70-99) White Blood Count 12.8 x10^3/uL (4.0-11.0) Red Blood Count 4.28 x10^6/uL (3.50-5.40) Hemoglobin 12.7 g/dL (12.0-15.5) Hematocrit 39.2 % (36.0-47.0) Mean Corpuscular Volume 92 fL (79-100) Mean Corpuscular Hemoglobin 30 pg (25-35) Mean Corpuscular Hemoglobin Concent 32 g/dL (31-37) Red Cell Distribution Width 13.4 % (11.5-14.5) Platelet Count 506 x10^3/uL (140-400) Neutrophils (%) (Auto) 72 % (31-73) Lymphocytes (%) (Auto) 16 % (24-48) Monocytes (%) (Auto) 5 % (0-9) Eosinophils (%) (Auto) 7 % (0-3) Basophils (%) (Auto) 1 % (0-3) Neutrophils # (Auto) 9.2 x10^3/uL (1.8-7.7) Lymphocytes # (Auto) 2.0 x10^3/uL (1.0-4.8) Monocytes # (Auto) 0.7 x10^3/uL (0.0-1.1) Eosinophils # (Auto) 0.9 x10^3/uL (0.0-0.7) Basophils # (Auto) 0.1 x10^3/uL (0.0-0.2) Sodium Level 146 mmol/L (136-145) Potassium Level 3.8 mmol/L (3.5-5.1) Chloride Level 106 mmol/L (98-107) Carbon Dioxide Level 30 mmol/L (21-32) Anion Gap 10 (6-14) Blood Urea Nitrogen 26 mg/dL (7-20) Creatinine 0.7 mg/dL (0.6-1.0) Estimated GFR (Cockcroft-Gault) 86.2 Glucose Level 108 mg/dL (70-99) Calcium Level 9.7 mg/dL (8.5-10.1) Test 07/09/20 05:45 Glucose (Fingerstick) 119 mg/dL (70-99) Microbiology 06/30/20 Gram Stain - Final, Complete 06/30/20 Aerobic and Anaerobic Culture - Final, Complete 06/17/20 Blood Culture - Final, Complete NO GROWTH AFTER 5 DAYS Medications Current Medications Amiodarone HCl 150 mg/Dextrose 103 ml @ 618 mls/hr 1X ONCE IV Last administered on 06/17/20at 07:00; Start 06/17/20 at 07:00; Stop 06/17/20 at 07:09; Status DC Amiodarone HCl 450 mg/Dextrose 259 ml @ 33 mls/hr 1X ONCE IV ; Start 06/17/20 at 07:00; Stop 06/17/20 at 14:50; Status DC Sodium Chloride 1,000 ml @ 1,000 mls/hr 1X ONCE IV Last administered on 06/17/20at 08:11; Start 06/17/20 at 07:15; Stop 06/17/20 at 08:14; Status DC Midazolam HCl 100 ml @ 0 mls/hr 1X ONCE IV ; Start 06/17/20 at 07:15; Stop 06/17/20 at 07:16; Status DC Midazolam HCl (Versed) 5 mg STK-MED ONCE .ROUTE ; Start 06/17/20 at 07:17; Stop 06/17/20 at 07:17; Status DC Iohexol (Omnipaque 300 Mg/ml) 75 ml 1X ONCE IV Last administered on 06/17/20at 08:17; Start 06/17/20 at 08:15; Stop 06/17/20 at 08:16; Status DC Iohexol (Omnipaque 350 Mg/ml) 100 ml 1X ONCE IV Last administered on 06/17/20at 08:17; Start 06/17/20 at 08:15; Stop 06/17/20 at 08:16; Status DC Info (CONTRAST GIVEN -- Rx MONITORING) 1 each PRN DAILY PRN MC SEE COMMENTS; Start 06/17/20 at 08:15; Stop 06/19/20 at 08:14; Status DC Sodium Chloride 1,000 ml @ 1,000 mls/hr 1X ONCE IV Last administered on 06/17/20at 08:25; Start 06/17/20 at 08:15; Stop 06/17/20 at 09:14; Status DC Potassium Chloride/Water 100 ml @ 50 mls/hr 1X ONCE IV Last administered on 06/17/20at 10:16; Start 06/17/20 at 09:00; Stop 06/17/20 at 10:59; Status DC Piperacillin Sod/ Tazobactam Sod (Zosyn Per Pharmacy) 1 each PRN DAILY PRN MC SEE COMMENTS; Start 06/17/20 at 08:45; Stop 06/27/20 at 11:36; Status DC Piperacillin Sod/ Tazobactam Sod 4.5 gm/Sodium Chloride 100 ml @ 200 mls/hr 1X ONCE IV Last administered on 06/17/20at 10:15; Start 06/17/20 at 08:45; Stop 06/17/20 at 09:14; Status DC Sodium Chloride 1,000 ml @ 125 mls/hr Q8H IV Last administered on 06/17/20at 23:39; Start 06/17/20 at 09:00; Stop 06/18/20 at 08:59; Status DC Propofol (Diprivan) 200 mg 1X ONCE IV Last administered on 06/17/20at 09:00; Start 06/17/20 at 09:00; Stop 06/17/20 at 09:01; Status DC Propofol 100 ml @ As Directed STK-MED ONCE IV ; Start 06/17/20 at 09:05; Stop 06/17/20 at 09:05; Status DC Lidocaine HCl (Lidocaine 1% 20ml Vial) 20 ml 1X ONCE INJ Last administered on 06/17/20at 09:15; Start 06/17/20 at 09:15; Stop 06/17/20 at 09:20; Status DC Lidocaine HCl (Xylocaine-Mpf 1% 5ml Vial) 5 ml STK-MED ONCE .ROUTE ; Start 06/17/20 at 09:26; Stop 06/17/20 at 09:26; Status DC Sodium Chloride 1,000 ml @ 1,000 mls/hr 1X ONCE IV Last administered on 06/17/20at 10:15; Start 06/17/20 at 10:15; Stop 06/17/20 at 11:14; Status DC Propofol 100 ml @ 3.819 mls/ hr CONT PRN IV PER PROTOCOL Last administered on 06/25/20at 06:12; Start 06/17/20 at 10:45; Stop 06/29/20 at 11:47; Status DC Fentanyl Citrate (Fentanyl 2ml Vial) 100 mcg 1X ONCE IV ; Start 06/17/20 at 12:00; Stop 06/17/20 at 12:39; Status DC Midazolam HCl (Versed) 2 mg 1X ONCE IV ; Start 06/17/20 at 12:00; Stop 06/17/20 at 12:39; Status DC Magnesium Sulfate/ Dextrose 100 ml @ 100 mls/hr 1X ONCE IV Last administered on 06/17/20at 12:22; Start 06/17/20 at 12:00; Stop 06/17/20 at 12:39; Status DC Buspirone HCl (Buspar) 30 mg Q8H NG Last administered on 06/17/20at 12:31; Start 06/17/20 at 12:00; Stop 06/17/20 at 12:39; Status DC Glycerin/ Hypromellose/ Polyethylene (Artificial Tears) 1 drop Q6HRS OU ; Start 06/17/20 at 12:00; Stop 06/17/20 at 12:39; Status DC Glycerin/ Hypromellose/ Polyethylene (Artificial Tears) 1 drop PRN Q15MIN PRN OU DRY EYE; Start 06/17/20 at 12:00; Stop 06/17/20 at 12:39; Status DC Heparin Sodium (Porcine) (Heparin Sodium) 5,000 unit BID SQ ; Start 06/17/20 at 21:00; Stop 06/17/20 at 12:39; Status DC Pantoprazole Sodium (PROTONIX VIAL for IV PUSH) 40 mg DAILY IVP ; Start 06/18/20 at 09:00; Stop 06/17/20 at 12:39; Status DC Fentanyl Citrate 30 ml @ 0 mls/hr CONT PRN IV PER PROTOCOL.; Start 06/17/20 at 12:00; Stop 06/17/20 at 12:39; Status DC Propofol 100 ml @ 0 mls/hr CONT PRN IV PER PROTOCOL.; Start 06/17/20 at 12:00; Stop 06/17/20 at 12:39; Status DC Midazolam HCl 100 ml @ 0 mls/hr CONT PRN IV PER PROTOCOL; Start 06/17/20 at 12:00; Stop 06/17/20 at 12:39; Status DC Vecuronium [place] (Norcuron Bolus) 10 mg PRN Q1HR PRN IV SHIVERING; Start 06/17/20 at 12:00; Stop 06/17/20 at 12:39; Status DC Piperacillin Sod/ Tazobactam Sod 4.5 gm/Sodium Chloride 100 ml @ 200 mls/hr 1X ONCE IV ; Start 06/17/20 at 12:15; Stop 06/17/20 at 12:44; Status Cancel Midazolam HCl (Versed) 5 mg Q1HR PRN IV SEDATION Last administered on 06/29/20at 13:48; Start 06/17/20 at 12:45; Stop 07/08/20 at 12:59; Status DC Fentanyl Citrate (Fentanyl 2ml Vial) 100 mcg Q1HR IVP Last administered on 06/17/20at 18:55; Start 06/17/20 at 13:00; Stop 06/17/20 at 23:41; Status DC Piperacillin Sod/ Tazobactam Sod 3.375 gm/Sodium Chloride 50 ml @ 100 mls/hr Q6H IV Last administered on 06/27/20at 05:31; Start 06/17/20 at 16:00; Stop 06/27/20 at 11:30; Status DC Potassium Bicarbonate (Potassium Effervescent Tablet) 40 meq 1X ONCE NG Last administered on 06/18/20at 10:00; Start 06/18/20 at 09:45; Stop 06/18/20 at 09:48; Status DC Albuterol/ Ipratropium (Duoneb) 3 ml RTQID NEB Last administered on 07/09/20at 07:12; Start 06/18/20 at 20:00 Famotidine (Pepcid Vial) 20 mg BID IVP Last administered on 07/02/20at 08:05; Start 06/18/20 at 21:00; Stop 07/02/20 at 10:23; Status DC Enoxaparin Sodium (Lovenox 40mg Syringe) 40 mg Q24H SQ Last administered on 07/08/20at 21:12; Start 06/18/20 at 21:00 Levothyroxine Sodium (Synthroid) 75 mcg DAILY06 PO Last administered on 07/09/20at 04:44; Start 06/18/20 at 21:00 Fentanyl Citrate 30 ml @ 0 mls/hr CONT PRN IV SEE PROTOCOL Last administered on 06/28/20at 04:56; Start 06/18/20 at 20:15; Stop 06/29/20 at 11:47; Status DC Carvedilol (Coreg) 3.125 mg BIDWMEALS PO Last administered on 07/09/20 08:33; Start 06/19/20 at 17:00 Atorvastatin Calcium (Lipitor) 20 mg QHS PO Last administered on 07/08/20at 21:12; Start 06/19/20 at 21:00 Aspirin (Aspirin Chewable) 81 mg [id number] PO Last administered on 07/09/20at 08:32; Start 06/20/20 at 08:00 Aspirin (Aspirin Chewable) 81 mg 1X ONCE PO Last administered on 06/19/20at 15:57; Start 06/19/20 at 15:30; Stop 06/19/20 at 15:37; Status DC Potassium Chloride/Water 100 ml @ 100 mls/hr 1X ONCE IV Last administered on 06/19/20at 15:57; Start 06/19/20 at 15:30; Stop 06/19/20 at 16:29; Status DC Amiodarone HCl (Cordarone) 400 mg DAILY PO Last administered on 07/09/20at 08:33; Start 06/20/20 at 09:00 Furosemide (Lasix) 40 mg 1X ONCE IVP Last administered on 06/20/20at 14:38; Start 06/20/20 at 13:30; Stop 06/20/20 at 13:31; Status DC Potassium Chloride/Water 100 ml @ 100 mls/hr 1X ONCE IV Last administered on 06/20/20at 14:39; Start 06/20/20 at 13:30; Stop 06/20/20 at 14:29; Status DC Dexmedetomidine HCl 400 mcg/ Sodium Chloride 100 ml @ 0 mls/hr CONT PRN IV PER PROTOCOL Last administered on 06/29/20at 06:11; Start 06/21/20 at 10:45; Stop 06/29/20 at 11:47; Status DC Sodium Chloride 500 ml @ 500 mls/hr 1X PRN PRN IV SEE COMMENTS; Start 06/21/20 at 10:45 Atropine Sulfate (ATROPINE 0.5mg SYRINGE) 0.5 mg PRN Q5MIN PRN IV SEE COMMENTS; Start 06/21/20 at 10:45; Stop 06/29/20 at 11:47; Status DC Fentanyl Citrate (Fentanyl 2ml Vial) 50 mcg PRN Q2HR PRN IVP PAIN Last administered on 07/03/20at 04:14; Start 06/23/20 at 16:45 Midazolam HCl 100 ml @ 0 mls/hr CONT PRN IV SEE PROTOCOL Last administered on 06/28/20at 03:00; Start 06/25/20 at 11:45; Stop 06/29/20 at 11:47; Status DC Lidocaine HCl (Xylocaine-Mpf 1% 2ml Vial) 2 ml STK-MED ONCE .ROUTE ; Start 06/25/20 at 14:21; Stop 06/25/20 at 14:21; Status DC Iohexol (Omnipaque 300 Mg/ml) 100 ml STK-MED ONCE .ROUTE ; Start 06/25/20 at 14:21; Stop 06/25/20 at 14:21; Status DC Heparin Sodium/ Sodium Chloride 1,000 ml @ As Directed STK-MED ONCE .ROUTE ; Start 06/25/20 at 14:21; Stop 06/25/20 at 14:21; Status DC Heparin Sodium (Porcine) (Heparin Sodium) 10,000 unit STK-MED ONCE .ROUTE ; Start 06/25/20 at 14:31; Stop 06/25/20 at 14:31; Status DC Verapamil HCl (Verapamil) 5 mg STK-MED ONCE .ROUTE ; Start 06/25/20 at 14:31; Stop 06/25/20 at 14:31; Status DC Nitroglycerin (Nitroglycerin) 200 mcg STK-MED ONCE .ROUTE ; Start 06/25/20 at 14:31; Stop 06/25/20 at 14:31; Status DC Nitroglycerin (Nitroglycerin) 200 mcg 1X ONCE IART Last administered on 06/25/20at 15:09; Start 06/25/20 at 15:15; Stop 06/25/20 at 15:16; Status DC Verapamil HCl (Verapamil) 2.5 mg 1X ONCE IART Last administered on 06/25/20at 15:09; Start 06/25/20 at 15:15; Stop 06/25/20 at 15:16; Status DC Heparin Sodium (Porcine) (Heparin Sodium) 2,500 unit 1X ONCE IART Last administered on 06/25/20at 15:09; Start 06/25/20 at 15:15; Stop 06/25/20 at 15:16; Status DC Heparin Sodium/ Sodium Chloride (HEPARIN for ARTERIAL LINE FLUSH) 1,000 unit 1X ONCE IART Last administered on 06/25/20at 15:09; Start 06/25/20 at 15:15; Stop 06/25/20 at 15:16; Status DC Iohexol (Omnipaque 300 Mg/ml) 30 ml 1X ONCE IART Last administered on 06/25/20at 15:09; Start 06/25/20 at 15:15; Stop 06/25/20 at 15:16; Status DC Lidocaine HCl (Xylocaine-Mpf 1% 2ml Vial) 2 ml 1X ONCE INJ Last administered on 06/25/20at 15:09; Start 06/25/20 at 15:15; Stop 06/25/20 at 15:16; Status DC Amino Acids/ Glycerin/ Electrolytes 1,000 ml @ 80 mls/hr [id number] IV Last administered on 06/27/20at 20:50; Start 06/25/20 at 17:30; Stop 06/28/20 at 11:35; Status DC Potassium Chloride/Water 100 ml @ 100 mls/hr Q1H IV Last administered on 06/25/20at 18:46; Start 06/25/20 at 18:00; Stop 06/25/20 at 19:59; Status DC Rocuronium [place] (Zemuron) 50 mg STK-MED ONCE .ROUTE ; Start 06/26/20 at 11:37; Stop 06/26/20 at 11:38; Status DC Cellulose (Surgicel Fibrillar 1x2) 1 each STK-MED ONCE .ROUTE Last administered on 06/26/20at 13:20; Start 06/26/20 at 12:19; Stop 06/26/20 at 12:19; Status DC Bupivacaine HCl (Sensorcaine Mpf 0.5%) 30 ml STK-MED ONCE .ROUTE ; Start 06/26/20 at 12:19; Stop 06/26/20 at 12:19; Status DC Ondansetron HCl (Zofran) 4 mg STK-MED ONCE .ROUTE ; Start 06/26/20 at 13:13; Stop 06/26/20 at 13:13; Status DC Dexamethasone Sodium Phosphate (Decadron) 4 mg STK-MED ONCE .ROUTE ; Start 06/26/20 at 13:13; Stop 06/26/20 at 13:14; Status DC Cellulose (Surgicel Fibrillar 1x2) 1 each STK-MED ONCE .ROUTE Last administered on 06/26/20at 13:22; Start 06/26/20 at 13:25; Stop 06/26/20 at 13:25; Status DC Sevoflurane (Ultane) 30 ml STK-MED ONCE IH ; Start 06/26/20 at 13:37; Stop 06/26/20 at 13:38; Status DC Propofol (Diprivan) 200 mg STK-MED ONCE IV ; Start 06/26/20 at 13:38; Stop 06/26/20 at 13:38; Status DC Ringer's Solution 1,000 ml @ 30 mls/hr Q24H IV Last administered on 06/27/20at 08:39; Start 06/27/20 at 07:00; Stop 06/27/20 at 18:59; Status DC Prochlorperazine Edisylate (Compazine) 5 mg PACU PRN PRN IV NAUSEA, MRX1; Start 06/27/20 at 07:00; Stop 06/28/20 at 06:59; Status DC Propofol (Diprivan) 200 mg STK-MED ONCE IV ; Start 06/27/20 at 09:53; Stop 06/27/20 at 09:54; Status DC Lidocaine HCl (Lidocaine Pf 2% Vial) 5 ml STK-MED ONCE .ROUTE ; Start 06/27/20 at 09:54; Stop 06/27/20 at 09:54; Status DC Lisinopril (Prinivil) 5 mg DAILY PO Last administered on 07/04/20at 09:23; Start 06/29/20 at 09:00; Stop 07/04/20 at 14:46; Status DC Acetaminophen/ Hydrocodone Bitart (Lortab 7.5-325/ 15ml Oral Solution) 10 ml 1X ONCE PEG Last administered on 06/28/20at 12:37; Start 06/28/20 at 12:30; Stop 06/28/20 at 12:31; Status DC Piperacillin Sod/ Tazobactam Sod 3.375 gm/Sodium Chloride 50 ml @ 100 mls/hr Q6HRS IV Last administered on 07/07/20at 06:11; Start 06/29/20 at 10:00; Stop 07/07/20 at 09:51; Status DC Vecuronium [place] (Norcuron Bolus) 10 mg STK-MED ONCE IV ; Start 06/29/20 at 14:31; Stop 06/29/20 at 14:31; Status DC Propofol 100 ml @ 0 mls/hr CONT PRN IV PER PROTOCOL Last administered on 07/02/20at 07:26; Start 06/29/20 at 16:30; Stop 07/08/20 at 12:58; Status DC Vecuronium [place] (Norcuron Bolus) 10 mg 1X ONCE IV Last administered on 06/29/20at 14:31; Start 06/29/20 at 14:31; Stop 06/29/20 at 17:19; Status DC Daptomycin 400 mg/ Sodium Chloride 50 ml @ 100 mls/hr Q24H IV Last administered on 07/04/20at 09:25; Start 06/30/20 at 10:00; Stop 07/05/20 at 08:14; Status DC Famotidine (Pepcid) 20 mg QHS GT Last administered on 07/08/20at 21:12; Start 07/02/20 at 21:00 Haloperidol Lactate (Haldol Inj) 5 mg Q8HRS IVP Last administered on 07/03/20at 06:00; Start 07/02/20 at 14:00; Stop 07/03/20 at 12:40; Status DC Micafungin Sodium 100 mg/Dextrose 100 ml @ 100 mls/hr Q24H IV Last administered on 07/05/20at 08:04; Start 07/03/20 at 09:00; Stop 07/05/20 at 08:14; Status DC Alteplase, Recombinant (Cathflo For Central Catheter Clearance) 1 mg 1X ONCE INT CAT Last administered on 07/03/20at 08:45; Start 07/03/20 at 08:45; Stop 07/03/20 at 08:46; Status DC Haloperidol Lactate (Haldol Inj) 2.5 mg PRN Q6HRS PRN IVP AGITATION; Start 07/03/20 at 12:30; Stop 07/03/20 at 12:40; Status DC Haloperidol Lactate (Haldol Inj) 2.5 mg PRN Q6HRS PRN IVP AGITATION Last administered on 07/04/20at 01:04; Start 07/03/20 at 14:00; Stop 07/04/20 at 08:04; Status DC Haloperidol Lactate (Haldol Inj) 2.5 mg Q8HRS IVP ; Start 07/04/20 at 10:00; Stop 07/04/20 at 08:15; Status DC Haloperidol Lactate (Haldol Inj) 2.5 mg PRN Q8HRS PRN IVP AGITATION; Start 07/04/20 at 08:15; Stop 07/05/20 at 10:35; Status DC Lisinopril (Prinivil) 20 mg BID PO Last administered on 07/09/20at 08:33; Start 07/04/20 at 21:00 Haloperidol (Haldol) 0.5 mg PRN Q8HRS PRN PO AGITATION; Start 07/05/20 at 10:45 Acetaminophen (Tylenol) 650 mg PRN Q6HRS PRN PO MILD PAIN / TEMP > 100.3'F Last administered on 07/09/20at 08:38; Start 07/06/20 at 13:30 Amoxicillin/ Clavulanate Potassium (Augmentin 875/ 125mg) 1 tab BID PO Last administered on 07/09/20at 08:33; Start 07/07/20 at 21:00 Active Scripts Active Reported Acetaminophen-Diphenhyd 500-25 (Acetaminophen/Diphenhydramine) 1 Each Tablet 1 Each PO HS PRN Naproxen 500 Mg Tablet 1 Tab PO BID PRN 30 Days Tramadol Hcl 50 Mg Tablet 50 Mg PO Q4HRS Levothyroxine Sodium 75 Mcg Tablet 1 Tab PO DAILY Adderall 20 Mg Tablet (Dextroamphetamine/Amphetamine) 20 Mg Tablet 1 Tab PO DAILY MDD 1 Tablet(s) 5 Days Prozac (Fluoxetine Hcl) 20 Mg Capsule 1 Cap PO [id number] Vitals/I & O Vital Sign - Last 24 Hours 07/08/20 07/08/20 07/08/20 07/08/20 09:42 09:44 09:45 11:59 Temp 98.5 98.5 Pulse 88 88 88 85 Resp 18 B/P (MAP) 133/74 133/74 133/74 159/69 (99) Pulse Ox 96 O2 Delivery Room Air 07/08/20 07/08/20 07/08/20 07/08/20 12:10 15:13 15:59 17:47 Temp 97.5 97.5 Pulse 89 89 Resp 18 B/P (MAP) 129/72 (91) 129/72 Pulse Ox 98 95 O2 Delivery Tracheal Collar Tracheal Collar Room Air O2 Flow Rate 8.0 8.0 07/08/20 07/08/20 07/08/20 07/08/20 19:00 19:53 20:15 21:12 Temp 97.5 97.5 Pulse 83 83 Resp 18 B/P (MAP) 146/72 (96) 146/72 Pulse Ox 98 98 O2 Delivery Tracheal Collar Tracheal Collar Trach Collar O2 Flow Rate 8.0 8.0 07/08/20 07/09/20 07/09/20 07/09/20 23:01 03:08 07:00 07:12 Temp 98.4 98.2 97.5 98.4 98.2 97.5 Pulse 74 75 71 Resp 18 20 18 B/P (MAP) 126/62 (83) 107/61 (76) 145/71 (95) Pulse Ox 95 100 95 97 O2 Delivery Tracheal Collar Tracheal Collar Tracheal Collar Tracheal Collar O2 Flow Rate 8.0 07/09/20 07/09/20 07/09/20 08:33 08:33 08:33 Pulse 71 71 71 B/P (MAP) 145/71 145/71 145/71 l Intake and Output 07/08/20 07/08/20 07/09/20 15:00 23:00 07:00 Intake Total 425 ml 1752 ml 648 ml Output Total 1070 ml 700 ml Balance 425 ml 682 ml -52 ml Justicifation of Admission Dx: Justifications for Admission: Justification of Admission Dx: N/A ARIELA BOTELLO MD Jul 09, 2020 08:56
--- NOTE | 2020-07-09 09:41 | PDOC ---
PULMONARY PROGRESS NOTES DATE: 07/09/20 TIME: 09:36 Subjective S/P cardiac arrest 06/17 S/P trach on 06/26 ----- S/P peg 06/27 Opens eyes, nonverbal does not track or follow commands Not much clinical change, no further hemoptysis/bloody secretions from the tracheostomy Vitals Vital Signs Date Time Temp Pulse Resp B/P (MAP) Pulse Ox O2 Delivery O2 Flow Rate FiO2 07/09/20 08:33 71 145/71 07/09/20 07:12 97 Tracheal Collar 8.0 07/09/20 07:00 97.5 18 97.5 Comments Unable to report review of systems secondary to clinical state Lungs: Clear Cardiovascular: S1, S2 Abdomen: Soft, Non-tender Extremities: No Edema Skin: Warm Labs Laboratory Tests Test 07/07/20 12:22 07/07/20 17:23 07/07/20 23:32 07/08/20 05:44 Glucose (Fingerstick) 129 mg/dL (70-99) 116 mg/dL (70-99) 135 mg/dL (70-99) 112 mg/dL (70-99) Test 07/08/20 12:25 07/08/20 19:02 07/08/20 23:50 07/09/20 05:10 Glucose (Fingerstick) 129 mg/dL (70-99) 129 mg/dL (70-99) 143 mg/dL (70-99) White Blood Count 12.8 x10^3/uL (4.0-11.0) Red Blood Count 4.28 x10^6/uL (3.50-5.40) Hemoglobin 12.7 g/dL (12.0-15.5) Hematocrit 39.2 % (36.0-47.0) Mean Corpuscular Volume 92 fL (79-100) Mean Corpuscular Hemoglobin 30 pg (25-35) Mean Corpuscular Hemoglobin Concent 32 g/dL (31-37) Red Cell Distribution Width 13.4 % (11.5-14.5) Platelet Count 506 x10^3/uL (140-400) Neutrophils (%) (Auto) 72 % (31-73) Lymphocytes (%) (Auto) 16 % (24-48) Monocytes (%) (Auto) 5 % (0-9) Eosinophils (%) (Auto) 7 % (0-3) Basophils (%) (Auto) 1 % (0-3) Neutrophils # (Auto) 9.2 x10^3/uL (1.8-7.7) Lymphocytes # (Auto) 2.0 x10^3/uL (1.0-4.8) Monocytes # (Auto) 0.7 x10^3/uL (0.0-1.1) Eosinophils # (Auto) 0.9 x10^3/uL (0.0-0.7) Basophils # (Auto) 0.1 x10^3/uL (0.0-0.2) Sodium Level 146 mmol/L (136-145) Potassium Level 3.8 mmol/L (3.5-5.1) Chloride Level 106 mmol/L (98-107) Carbon Dioxide Level 30 mmol/L (21-32) Anion Gap 10 (6-14) Blood Urea Nitrogen 26 mg/dL (7-20) Creatinine 0.7 mg/dL (0.6-1.0) Estimated GFR (Cockcroft-Gault) 86.2 Glucose Level 108 mg/dL (70-99) Calcium Level 9.7 mg/dL (8.5-10.1) Test 07/09/20 05:45 Glucose (Fingerstick) 119 mg/dL (70-99) Laboratory Tests Test 07/08/20 12:25 07/08/20 19:02 07/08/20 23:50 07/09/20 05:10 Glucose (Fingerstick) 129 mg/dL (70-99) 129 mg/dL (70-99) 143 mg/dL (70-99) White Blood Count 12.8 x10^3/uL (4.0-11.0) Red Blood Count 4.28 x10^6/uL (3.50-5.40) Hemoglobin 12.7 g/dL (12.0-15.5) Hematocrit 39.2 % (36.0-47.0) Mean Corpuscular Volume 92 fL (79-100) Mean Corpuscular Hemoglobin 30 pg (25-35) Mean Corpuscular Hemoglobin Concent 32 g/dL (31-37) Red Cell Distribution Width 13.4 % (11.5-14.5) Platelet Count 506 x10^3/uL (140-400) Neutrophils (%) (Auto) 72 % (31-73) Lymphocytes (%) (Auto) 16 % (24-48) Monocytes (%) (Auto) 5 % (0-9) Eosinophils (%) (Auto) 7 % (0-3) Basophils (%) (Auto) 1 % (0-3) Neutrophils # (Auto) 9.2 x10^3/uL (1.8-7.7) Lymphocytes # (Auto) 2.0 x10^3/uL (1.0-4.8) Monocytes # (Auto) 0.7 x10^3/uL (0.0-1.1) Eosinophils # (Auto) 0.9 x10^3/uL (0.0-0.7) Basophils # (Auto) 0.1 x10^3/uL (0.0-0.2) Sodium Level 146 mmol/L (136-145) Potassium Level 3.8 mmol/L (3.5-5.1) Chloride Level 106 mmol/L (98-107) Carbon Dioxide Level 30 mmol/L (21-32) Anion Gap 10 (6-14) Blood Urea Nitrogen 26 mg/dL (7-20) Creatinine 0.7 mg/dL (0.6-1.0) Estimated GFR (Cockcroft-Gault) 86.2 Glucose Level 108 mg/dL (70-99) Calcium Level 9.7 mg/dL (8.5-10.1) Test 07/09/20 05:45 Glucose (Fingerstick) 119 mg/dL (70-99) Medications Active Scripts Medications Dose Route/Sig Max Daily Dose Days Date Category Acetaminophen-Diphenhyd 500-25 (Acetaminophen/Diphenhydramine) 1 Each Tablet 1 Each PO HS PRN 06/18/20 Reported Naproxen 500 Mg Tablet 1 Tab PO BID PRN 30 06/18/20 Reported Tramadol Hcl 50 Mg Tablet 50 Mg PO Q4HRS 06/18/20 Reported Levothyroxine Sodium 75 Mcg Tablet 1 Tab PO DAILY 06/18/20 Reported Adderall 20 Mg Tablet (Dextroamphetamine/Amphetamine) 20 Mg Tablet 1 Tab PO DAILY MDD 1 Tablet(s) 5 06/18/20 Reported Prozac (Fluoxetine Hcl) 20 Mg Capsule 1 Cap PO [id number] 06/18/20 Reported Comments CXR IMPRESSION: Left lung base opacities likely consolidative process such as pneumonia. Small left pleural effusion. Impression . IMPRESSION: 1. Acute respiratory failure secondary to [id number] cardiopulmonary arrest/ anoxic encephalopathy-- now S/P trach 2. Pbm-as-xyrncxgm ventricular fibrillation and asystole leading to anoxic brain injury. 3. Anoxic encephalopathy--ongoing/unchanged 4. COVID neg 5. Morbid obesity. 6. Leukocytosis--improved 7. Lactic acidosis secondary to eoz-pt-driuxzbi cardiac arrest. 8. Abnormal x-ray revealing bibasilar atelectasis, infiltrates. 9. Pneumothorax secondary to CPR.resolved 10. Sternal sternal fracture secondary to CPR. 11. Pneumonia positive, gram-negative, gram-positive. Plan . PLAN: Continue supplemental oxygen via trach shield to keep oxygen saturations greater than 92%, currently on 35% Clinically consistent with Anoxic encephalopathy Trach 06/26/20, PEG on 06/27/20 Follow infectious disease recommendations in regards to antibiotics, currently on Augmentin Follow neurology recs--no new recommendations Follow Cardiology recs-- post cardiac cath 06/25/20-- cath was clean w/ normal filling pressures Continue tube feeding for nutritional support DVT/GI PPX D/W RN and RT Social work for D/C planning --[facility] declined, family would like to give the patient a full 30 days to assess level of recovery before potentially withdrawing care. The patient would not have wanted to live on life support or with a feeding tube for prolonged period of time per family. PT. is FULL CODE Patient is clinically stable from a respiratory standpoint we will see the patient on a as needed basis please call with any questions or concerns thank you ANGELA MORENO MD Jul 09, 2020 09:41
--- NOTE | 2020-07-09 09:54 | PDOC ---
Date of Service: DATE: 07/09/20 TIME: 09:52 Objective: Objective: D/w nurse - some residuals reported by erp manager, no vomiting. Vital Signs: Vital Signs Date Time Temp Pulse Resp B/P (MAP) Pulse Ox O2 Delivery O2 Flow Rate FiO2 07/09/20 08:33 71 145/71 07/09/20 07:12 97 Tracheal Collar 8.0 07/09/20 07:00 97.5 18 97.5 Labs: Laboratory Tests Test 07/08/20 12:25 07/08/20 19:02 07/08/20 23:50 07/09/20 05:45 Glucose (Fingerstick) 129 mg/dL (70-99) 129 mg/dL (70-99) 143 mg/dL (70-99) 119 mg/dL (70-99) PE: GEN: NAD LUNGS: trach collar, clear HEART: RRR ABD: soft, PEG/feeds NEURO/PSYCH: eyes open, no purposeful movements A/P: Anoxic encephalopathy s/p trach and PEG -- Monitor residuals. Justicifation of Admission Dx: Justifications for Admission: Justification of Admission Dx: N/A SHAHBAZ FOSS Jul 09, 2020 09:54
--- NOTE | 2020-07-09 10:15 | PDOC ---
Infectious Disease Note Subjective Subjective does not follow any commands no fevers Tolerating tube feedings well No acute concerns per discussion with RN Vital Sign Vital Signs Vital Signs Date Time Temp Pulse Resp B/P (MAP) Pulse Ox O2 Delivery O2 Flow Rate FiO2 07/09/20 08:33 71 145/71 07/09/20 07:12 97 Tracheal Collar 8.0 07/09/20 07:00 97.5 18 97.5 Physical Exam PHYSICAL EXAM GENERAL: Opens eyes transiently, does not follow any commands, HEENT: Both pupils are round and reacting. No conjunctival lesion. NECK: Supple. Trach present, erythema and drainage present around trach site i mproving LUNGS: Decreased breath sounds bilaterally. HEART: S1, S2, regular. No gallop or murmur. ABDOMEN: Soft, nontender. No organomegaly.peg tube + fecal tube , Jolly present EXTREMITIES: No edema or cyanosis. toe amputation of the Rt foot,healed scars SKIN: Unremarkable. NEUROLOGICAL: Opens eyes transiently does not follow any commands Labs Lab Laboratory Tests Test 07/08/20 12:25 07/08/20 19:02 07/08/20 23:50 07/09/20 05:10 Glucose (Fingerstick) 129 mg/dL (70-99) 129 mg/dL (70-99) 143 mg/dL (70-99) White Blood Count 12.8 x10^3/uL (4.0-11.0) Red Blood Count 4.28 x10^6/uL (3.50-5.40) Hemoglobin 12.7 g/dL (12.0-15.5) Hematocrit 39.2 % (36.0-47.0) Mean Corpuscular Volume 92 fL (79-100) Mean Corpuscular Hemoglobin 30 pg (25-35) Mean Corpuscular Hemoglobin Concent 32 g/dL (31-37) Red Cell Distribution Width 13.4 % (11.5-14.5) Platelet Count 506 x10^3/uL (140-400) Neutrophils (%) (Auto) 72 % (31-73) Lymphocytes (%) (Auto) 16 % (24-48) Monocytes (%) (Auto) 5 % (0-9) Eosinophils (%) (Auto) 7 % (0-3) Basophils (%) (Auto) 1 % (0-3) Neutrophils # (Auto) 9.2 x10^3/uL (1.8-7.7) Lymphocytes # (Auto) 2.0 x10^3/uL (1.0-4.8) Monocytes # (Auto) 0.7 x10^3/uL (0.0-1.1) Eosinophils # (Auto) 0.9 x10^3/uL (0.0-0.7) Basophils # (Auto) 0.1 x10^3/uL (0.0-0.2) Sodium Level 146 mmol/L (136-145) Potassium Level 3.8 mmol/L (3.5-5.1) Chloride Level 106 mmol/L (98-107) Carbon Dioxide Level 30 mmol/L (21-32) Anion Gap 10 (6-14) Blood Urea Nitrogen 26 mg/dL (7-20) Creatinine 0.7 mg/dL (0.6-1.0) Estimated GFR (Cockcroft-Gault) 86.2 Glucose Level 108 mg/dL (70-99) Calcium Level 9.7 mg/dL (8.5-10.1) Test 07/09/20 05:45 Glucose (Fingerstick) 119 mg/dL (70-99) Micro Microbiology 06/17/20 Blood Culture - Preliminary, Resulted NO GROWTH AFTER 1 DAY Objective Assessment 1. Cardiopulmonary arrest at home. With VT, shock then asystole s/p cardiac cath , normal coronaries Severe NICM Acute systolic CHF: compensated 2. Leukocytosis, likely reactive. resolved 3. Lactic acidosis from #1. 4. Respiratory failure. suspected aspiration; status post trach placement, swab culture from trach site with Filomena albicans 5. Anoxic Encephalopathy 6. Hypertension. 7. Pneumothorax.s/p CTS, 8. Rib fracture and sternal fracture. 9. Anemia 10. S/P Peg tube placement 11. Marijuana use: + UDS on amiodarone Plan Plan of Care Augmentin cont supportive care Overall prognosis poor Discussed with RN d/c cv line d/c to SNF POPPY RENAE MD Jul 09, 2020 10:15
[2020-07-09 11:00] VITALS: BP 153/75
--- NOTE | 2020-07-09 11:52 | PDOC ---
PROGRESS NOTES Date of Service DATE: 07/09/20 TIME: 11:51 Assessment Problems Medical Problems: (1) Cardiac arrest Status: Acute (2) Fracture of ribs, multiple Status: Acute (3) Hyperglycemia Status: Acute (4) Pneumonia Status: Acute (5) Pneumothorax, right Status: Acute (6) Sternal fracture Status: Acute (7) VF (ventricular fibrillation) Status: Acute Anoxic encephalopathy, ventricular fibrillation and asystole, improving, but not making much more progress Negative for Covid Status-post trach and PEG, now off vent Plan Haldol as needed Supportive care Holding on additional neurological tests Family wants to try [address] [facility] Transfer anytime to [facility] Subjective none Objective Vital Signs Date Time Temp Pulse Resp B/P (MAP) Pulse Ox O2 Delivery O2 Flow Rate FiO2 07/09/20 11:00 98.4 80 18 153/75 (101) 97 Tracheal Collar 98.4 07/09/20 07:12 8.0 Intake and Output 07/09/20 07:00 Intake Total 2825 ml Output Total 1770 ml Balance 1055 ml Tube Feeding 2575 ml Other 250 ml Output Urine Total 1550 ml Gastric Drainage Total 220 ml PHYSICAL EXAM Off ventilator, trache T piece. No response to visual threat PERRL. EOMI. CN: no focal findings. Muscle tone: normal. Muscle strength: Moving arms and legs,not thrusting tongue DTR: 1+ Plantar reflex: Flexor Gait: not examined. Sensory exam: Not cooperative Cerebellar: Not cooperative Review of Relevant I have reviewed the following items afua (where applicable) has been applied. Labs Laboratory Tests Test 07/07/20 12:22 07/07/20 17:23 07/07/20 23:32 07/08/20 05:44 Glucose (Fingerstick) 129 mg/dL (70-99) 116 mg/dL (70-99) 135 mg/dL (70-99) 112 mg/dL (70-99) Test 07/08/20 12:25 07/08/20 19:02 07/08/20 23:50 07/09/20 05:10 Glucose (Fingerstick) 129 mg/dL (70-99) 129 mg/dL (70-99) 143 mg/dL (70-99) White Blood Count 12.8 x10^3/uL (4.0-11.0) Red Blood Count 4.28 x10^6/uL (3.50-5.40) Hemoglobin 12.7 g/dL (12.0-15.5) Hematocrit 39.2 % (36.0-47.0) Mean Corpuscular Volume 92 fL (79-100) Mean Corpuscular Hemoglobin 30 pg (25-35) Mean Corpuscular Hemoglobin Concent 32 g/dL (31-37) Red Cell Distribution Width 13.4 % (11.5-14.5) Platelet Count 506 x10^3/uL (140-400) Neutrophils (%) (Auto) 72 % (31-73) Lymphocytes (%) (Auto) 16 % (24-48) Monocytes (%) (Auto) 5 % (0-9) Eosinophils (%) (Auto) 7 % (0-3) Basophils (%) (Auto) 1 % (0-3) Neutrophils # (Auto) 9.2 x10^3/uL (1.8-7.7) Lymphocytes # (Auto) 2.0 x10^3/uL (1.0-4.8) Monocytes # (Auto) 0.7 x10^3/uL (0.0-1.1) Eosinophils # (Auto) 0.9 x10^3/uL (0.0-0.7) Basophils # (Auto) 0.1 x10^3/uL (0.0-0.2) Sodium Level 146 mmol/L (136-145) Potassium Level 3.8 mmol/L (3.5-5.1) Chloride Level 106 mmol/L (98-107) Carbon Dioxide Level 30 mmol/L (21-32) Anion Gap 10 (6-14) Blood Urea Nitrogen 26 mg/dL (7-20) Creatinine 0.7 mg/dL (0.6-1.0) Estimated GFR (Cockcroft-Gault) 86.2 Glucose Level 108 mg/dL (70-99) Calcium Level 9.7 mg/dL (8.5-10.1) Test 07/09/20 05:45 Glucose (Fingerstick) 119 mg/dL (70-99) Laboratory Tests Test 07/08/20 12:25 07/08/20 19:02 07/08/20 23:50 07/09/20 05:10 Glucose (Fingerstick) 129 mg/dL (70-99) 129 mg/dL (70-99) 143 mg/dL (70-99) White Blood Count 12.8 x10^3/uL (4.0-11.0) Red Blood Count 4.28 x10^6/uL (3.50-5.40) Hemoglobin 12.7 g/dL (12.0-15.5) Hematocrit 39.2 % (36.0-47.0) Mean Corpuscular Volume 92 fL (79-100) Mean Corpuscular Hemoglobin 30 pg (25-35) Mean Corpuscular Hemoglobin Concent 32 g/dL (31-37) Red Cell Distribution Width 13.4 % (11.5-14.5) Platelet Count 506 x10^3/uL (140-400) Neutrophils (%) (Auto) 72 % (31-73) Lymphocytes (%) (Auto) 16 % (24-48) Monocytes (%) (Auto) 5 % (0-9) Eosinophils (%) (Auto) 7 % (0-3) Basophils (%) (Auto) 1 % (0-3) Neutrophils # (Auto) 9.2 x10^3/uL (1.8-7.7) Lymphocytes # (Auto) 2.0 x10^3/uL (1.0-4.8) Monocytes # (Auto) 0.7 x10^3/uL (0.0-1.1) Eosinophils # (Auto) 0.9 x10^3/uL (0.0-0.7) Basophils # (Auto) 0.1 x10^3/uL (0.0-0.2) Sodium Level 146 mmol/L (136-145) Potassium Level 3.8 mmol/L (3.5-5.1) Chloride Level 106 mmol/L (98-107) Carbon Dioxide Level 30 mmol/L (21-32) Anion Gap 10 (6-14) Blood Urea Nitrogen 26 mg/dL (7-20) Creatinine 0.7 mg/dL (0.6-1.0) Estimated GFR (Cockcroft-Gault) 86.2 Glucose Level 108 mg/dL (70-99) Calcium Level 9.7 mg/dL (8.5-10.1) Test 07/09/20 05:45 Glucose (Fingerstick) 119 mg/dL (70-99) Microbiology 06/30/20 Gram Stain - Final, Complete 06/30/20 Aerobic and Anaerobic Culture - Final, Complete 06/17/20 Blood Culture - Final, Complete NO GROWTH AFTER 5 DAYS Medications Current Medications Amiodarone HCl 150 mg/Dextrose 103 ml @ 618 mls/hr 1X ONCE IV Last administered on 06/17/20at 07:00; Start 06/17/20 at 07:00; Stop 06/17/20 at 07:09; Status DC Amiodarone HCl 450 mg/Dextrose 259 ml @ 33 mls/hr 1X ONCE IV ; Start 06/17/20 at 07:00; Stop 06/17/20 at 14:50; Status DC Sodium Chloride 1,000 ml @ 1,000 mls/hr 1X ONCE IV Last administered on 06/17/20at 08:11; Start 06/17/20 at 07:15; Stop 06/17/20 at 08:14; Status DC Midazolam HCl 100 ml @ 0 mls/hr 1X ONCE IV ; Start 06/17/20 at 07:15; Stop 06/17/20 at 07:16; Status DC Midazolam HCl (Versed) 5 mg STK-MED ONCE .ROUTE ; Start 06/17/20 at 07:17; Stop 06/17/20 at 07:17; Status DC Iohexol (Omnipaque 300 Mg/ml) 75 ml 1X ONCE IV Last administered on 06/17/20at 08:17; Start 06/17/20 at 08:15; Stop 06/17/20 at 08:16; Status DC Iohexol (Omnipaque 350 Mg/ml) 100 ml 1X ONCE IV Last administered on 06/17/20at 08:17; Start 06/17/20 at 08:15; Stop 06/17/20 at 08:16; Status DC Info (CONTRAST GIVEN -- Rx MONITORING) 1 each PRN DAILY PRN MC SEE COMMENTS; Start 06/17/20 at 08:15; Stop 06/19/20 at 08:14; Status DC Sodium Chloride 1,000 ml @ 1,000 mls/hr 1X ONCE IV Last administered on 06/17/20at 08:25; Start 06/17/20 at 08:15; Stop 06/17/20 at 09:14; Status DC Potassium Chloride/Water 100 ml @ 50 mls/hr 1X ONCE IV Last administered on 06/17/20at 10:16; Start 06/17/20 at 09:00; Stop 06/17/20 at 10:59; Status DC Piperacillin Sod/ Tazobactam Sod (Zosyn Per Pharmacy) 1 each PRN DAILY PRN MC SEE COMMENTS; Start 06/17/20 at 08:45; Stop 06/27/20 at 11:36; Status DC Piperacillin Sod/ Tazobactam Sod 4.5 gm/Sodium Chloride 100 ml @ 200 mls/hr 1X ONCE IV Last administered on 06/17/20at 10:15; Start 06/17/20 at 08:45; Stop 06/17/20 at 09:14; Status DC Sodium Chloride 1,000 ml @ 125 mls/hr Q8H IV Last administered on 06/17/20at 23:39; Start 06/17/20 at 09:00; Stop 06/18/20 at 08:59; Status DC Propofol (Diprivan) 200 mg 1X ONCE IV Last administered on 06/17/20at 09:00; Start 06/17/20 at 09:00; Stop 06/17/20 at 09:01; Status DC Propofol 100 ml @ As Directed STK-MED ONCE IV ; Start 06/17/20 at 09:05; Stop 06/17/20 at 09:05; Status DC Lidocaine HCl (Lidocaine 1% 20ml Vial) 20 ml 1X ONCE INJ Last administered on 06/17/20at 09:15; Start 06/17/20 at 09:15; Stop 06/17/20 at 09:20; Status DC Lidocaine HCl (Xylocaine-Mpf 1% 5ml Vial) 5 ml STK-MED ONCE .ROUTE ; Start 06/17/20 at 09:26; Stop 06/17/20 at 09:26; Status DC Sodium Chloride 1,000 ml @ 1,000 mls/hr 1X ONCE IV Last administered on 06/17/20at 10:15; Start 06/17/20 at 10:15; Stop 06/17/20 at 11:14; Status DC Propofol 100 ml @ 3.819 mls/ hr CONT PRN IV PER PROTOCOL Last administered on 06/25/20at 06:12; Start 06/17/20 at 10:45; Stop 06/29/20 at 11:47; Status DC Fentanyl Citrate (Fentanyl 2ml Vial) 100 mcg 1X ONCE IV ; Start 06/17/20 at 12:00; Stop 06/17/20 at 12:39; Status DC Midazolam HCl (Versed) 2 mg 1X ONCE IV ; Start 06/17/20 at 12:00; Stop 06/17/20 at 12:39; Status DC Magnesium Sulfate/ Dextrose 100 ml @ 100 mls/hr 1X ONCE IV Last administered on 06/17/20at 12:22; Start 06/17/20 at 12:00; Stop 06/17/20 at 12:39; Status DC Buspirone HCl (Buspar) 30 mg Q8H NG Last administered on 06/17/20at 12:31; Start 06/17/20 at 12:00; Stop 06/17/20 at 12:39; Status DC Glycerin/ Hypromellose/ Polyethylene (Artificial Tears) 1 drop Q6HRS OU ; Start 06/17/20 at 12:00; Stop 06/17/20 at 12:39; Status DC Glycerin/ Hypromellose/ Polyethylene (Artificial Tears) 1 drop PRN Q15MIN PRN OU DRY EYE; Start 06/17/20 at 12:00; Stop 06/17/20 at 12:39; Status DC Heparin Sodium (Porcine) (Heparin Sodium) 5,000 unit BID SQ ; Start 06/17/20 at 21:00; Stop 06/17/20 at 12:39; Status DC Pantoprazole Sodium (PROTONIX VIAL for IV PUSH) 40 mg DAILY IVP ; Start 06/18/20 at 09:00; Stop 06/17/20 at 12:39; Status DC Fentanyl Citrate 30 ml @ 0 mls/hr CONT PRN IV PER PROTOCOL.; Start 06/17/20 at 12:00; Stop 06/17/20 at 12:39; Status DC Propofol 100 ml @ 0 mls/hr CONT PRN IV PER PROTOCOL.; Start 06/17/20 at 12:00; Stop 06/17/20 at 12:39; Status DC Midazolam HCl 100 ml @ 0 mls/hr CONT PRN IV PER PROTOCOL; Start 06/17/20 at 12:00; Stop 06/17/20 at 12:39; Status DC Vecuronium [place] (Norcuron Bolus) 10 mg PRN Q1HR PRN IV SHIVERING; Start 06/17/20 at 12:00; Stop 06/17/20 at 12:39; Status DC Piperacillin Sod/ Tazobactam Sod 4.5 gm/Sodium Chloride 100 ml @ 200 mls/hr 1X ONCE IV ; Start 06/17/20 at 12:15; Stop 06/17/20 at 12:44; Status Cancel Midazolam HCl (Versed) 5 mg Q1HR PRN IV SEDATION Last administered on 06/29/20at 13:48; Start 06/17/20 at 12:45; Stop 07/08/20 at 12:59; Status DC Fentanyl Citrate (Fentanyl 2ml Vial) 100 mcg Q1HR IVP Last administered on 06/17/20at 18:55; Start 06/17/20 at 13:00; Stop 06/17/20 at 23:41; Status DC Piperacillin Sod/ Tazobactam Sod 3.375 gm/Sodium Chloride 50 ml @ 100 mls/hr Q6H IV Last administered on 06/27/20at 05:31; Start 06/17/20 at 16:00; Stop 06/27/20 at 11:30; Status DC Potassium Bicarbonate (Potassium Effervescent Tablet) 40 meq 1X ONCE NG Last administered on 06/18/20at 10:00; Start 06/18/20 at 09:45; Stop 06/18/20 at 09:48; Status DC Albuterol/ Ipratropium (Duoneb) 3 ml RTQID NEB Last administered on 07/09/20at 07:12; Start 06/18/20 at 20:00 Famotidine (Pepcid Vial) 20 mg BID IVP Last administered on 07/02/20at 08:05; Start 06/18/20 at 21:00; Stop 07/02/20 at 10:23; Status DC Enoxaparin Sodium (Lovenox 40mg Syringe) 40 mg Q24H SQ Last administered on 07/08/20at 21:12; Start 06/18/20 at 21:00 Levothyroxine Sodium (Synthroid) 75 mcg DAILY06 PO Last administered on 07/09/20at 04:44; Start 06/18/20 at 21:00 Fentanyl Citrate 30 ml @ 0 mls/hr CONT PRN IV SEE PROTOCOL Last administered on 06/28/20at 04:56; Start 06/18/20 at 20:15; Stop 06/29/20 at 11:47; Status DC Carvedilol (Coreg) 3.125 mg BIDWMEALS PO Last administered on 07/09/20at 08:33; Start 06/19/20 at 17:00 Atorvastatin Calcium (Lipitor) 20 mg QHS PO Last administered on 07/08/20at 21:12; Start 06/19/20 at 21:00 Aspirin (Aspirin Chewable) 81 mg DAILYWBKFT PO Last administered on 07/09/20at 08:32; Start 06/20/20 at 08:00 Aspirin (Aspirin Chewable) 81 mg 1X ONCE PO Last administered on 06/19/20at 15:57; Start 06/19/20 at 15:30; Stop 06/19/20 at 15:37; Status DC Potassium Chloride/Water 100 ml @ 100 mls/hr 1X ONCE IV Last administered on 06/19/20at 15:57; Start 06/19/20 at 15:30; Stop 06/19/20 at 16:29; Status DC Amiodarone HCl (Cordarone) 400 mg DAILY PO Last administered on 07/09/20at 08:33; Start 06/20/20 at 09:00 Furosemide (Lasix) 40 mg 1X ONCE IVP Last administered on 06/20/20at 14:38; Start 06/20/20 at 13:30; Stop 06/20/20 at 13:31; Status DC Potassium Chloride/Water 100 ml @ 100 mls/hr 1X ONCE IV Last administered on 06/20/20at 14:39; Start 06/20/20 at 13:30; Stop 06/20/20 at 14:29; Status DC Dexmedetomidine HCl 400 mcg/ Sodium Chloride 100 ml @ 0 mls/hr CONT PRN IV PER PROTOCOL Last administered on 06/29/20at 06:11; Start 06/21/20 at 10:45; Stop 06/29/20 at 11:47; Status DC Sodium Chloride 500 ml @ 500 mls/hr 1X PRN PRN IV SEE COMMENTS; Start 06/21/20 at 10:45 Atropine Sulfate (ATROPINE 0.5mg SYRINGE) 0.5 mg PRN Q5MIN PRN IV SEE COMMENTS; Start 06/21/20 at 10:45; Stop 06/29/20 at 11:47; Status DC Fentanyl Citrate (Fentanyl 2ml Vial) 50 mcg PRN Q2HR PRN IVP PAIN Last administered on 07/03/20at 04:14; Start 06/23/20 at 16:45 Midazolam HCl 100 ml @ 0 mls/hr CONT PRN IV SEE PROTOCOL Last administered on 06/28/20at 03:00; Start 06/25/20 at 11:45; Stop 06/29/20 at 11:47; Status DC Lidocaine HCl (Xylocaine-Mpf 1% 2ml Vial) 2 ml STK-MED ONCE .ROUTE ; Start 06/25/20 at 14:21; Stop 06/25/20 at 14:21; Status DC Iohexol (Omnipaque 300 Mg/ml) 100 ml STK-MED ONCE .ROUTE ; Start 06/25/20 at 14:21; Stop 06/25/20 at 14:21; Status DC Heparin Sodium/ Sodium Chloride 1,000 ml @ As Directed STK-MED ONCE .ROUTE ; Start 06/25/20 at 14:21; Stop 06/25/20 at 14:21; Status DC Heparin Sodium (Porcine) (Heparin Sodium) 10,000 unit STK-MED ONCE .ROUTE ; Start 06/25/20 at 14:31; Stop 06/25/20 at 14:31; Status DC Verapamil HCl (Verapamil) 5 mg STK-MED ONCE .ROUTE ; Start 06/25/20 at 14:31; Stop 06/25/20 at 14:31; Status DC Nitroglycerin (Nitroglycerin) 200 mcg STK-MED ONCE .ROUTE ; Start 06/25/20 at 14:31; Stop 06/25/20 at 14:31; Status DC Nitroglycerin (Nitroglycerin) 200 mcg 1X ONCE IART Last administered on 06/25/20at 15:09; Start 06/25/20 at 15:15; Stop 06/25/20 at 15:16; Status DC Verapamil HCl (Verapamil) 2.5 mg 1X ONCE IART Last administered on 06/25/20at 15:09; Start 06/25/20 at 15:15; Stop 06/25/20 at 15:16; Status DC Heparin Sodium (Porcine) (Heparin Sodium) 2,500 unit 1X ONCE IART Last administered on 06/25/20at 15:09; Start 06/25/20 at 15:15; Stop 06/25/20 at 15:16; Status DC Heparin Sodium/ Sodium Chloride (HEPARIN for ARTERIAL LINE FLUSH) 1,000 unit 1X ONCE IART Last administered on 06/25/20at 15:09; Start 06/25/20 at 15:15; Stop 06/25/20 at 15:16; Status DC Iohexol (Omnipaque 300 Mg/ml) 30 ml 1X ONCE IART Last administered on 06/25/20at 15:09; Start 06/25/20 at 15:15; Stop 06/25/20 at 15:16; Status DC Lidocaine HCl (Xylocaine-Mpf 1% 2ml Vial) 2 ml 1X ONCE INJ Last administered on 06/25/20at 15:09; Start 06/25/20 at 15:15; Stop 06/25/20 at 15:16; Status DC Amino Acids/ Glycerin/ Electrolytes 1,000 ml @ 80 mls/hr [id number] IV Last administered on 06/27/20at 20:50; Start 06/25/20 at 17:30; Stop 06/28/20 at 11:35; Status DC Potassium Chloride/Water 100 ml @ 100 mls/hr Q1H IV Last administered on 06/25/20at 18:46; Start 06/25/20 at 18:00; Stop 06/25/20 at 19:59; Status DC Rocuronium [place] (Zemuron) 50 mg STK-MED ONCE .ROUTE ; Start 06/26/20 at 11:37; Stop 06/26/20 at 11:38; Status DC Cellulose (Surgicel Fibrillar 1x2) 1 each STK-MED ONCE .ROUTE Last administered on 06/26/20at 13:20; Start 06/26/20 at 12:19; Stop 06/26/20 at 12:19; Status DC Bupivacaine HCl (Sensorcaine Mpf 0.5%) 30 ml STK-MED ONCE .ROUTE ; Start at 12:19; Stop 06/26/20 at 12:19; Status DC Ondansetron HCl (Zofran) 4 mg STK-MED ONCE .ROUTE ; Start 06/26/20 at 13:13; St op 06/26/20 at 13:13; Status DC Dexamethasone Sodium Phosphate (Decadron) 4 mg STK-MED ONCE .ROUTE ; Start 06/26/20 at 13:13; Stop 06/26/20 at 13:14; Status DC Cellulose (Surgicel Fibrillar 1x2) 1 each STK-MED ONCE .ROUTE Last administered on 06/26/20at 13:22; Start 06/26/20 at 13:25; Stop 06/26/20 at 13:25; Status DC Sevoflurane (Ultane) 30 ml STK-MED ONCE IH ; Start 06/26/20 at 13:37; Stop 06/26/20 at 13:38; Status DC Propofol (Diprivan) 200 mg STK-MED ONCE IV ; Start 06/26/20 at 13:38; Stop 06/26/20 at 13:38; Status DC Ringer's Solution 1,000 ml @ 30 mls/hr Q24H IV Last administered on 06/27/20at 08:39; Start 06/27/20 at 07:00; Stop 06/27/20 at 18:59; Status DC Prochlorperazine Edisylate (Compazine) 5 mg PACU PRN PRN IV NAUSEA, MRX1; Start 06/27/20 at 07:00; Stop 06/28/20 at 06:59; Status DC Propofol (Diprivan) 200 mg STK-MED ONCE IV ; Start 06/27/20 at 09:53; Stop 06/27/20 at 09:54; Status DC Lidocaine HCl (Lidocaine Pf 2% Vial) 5 ml STK-MED ONCE .ROUTE ; Start 06/27/20 at 09:54; Stop 06/27/20 at 09:54; Status DC Lisinopril (Prinivil) 5 mg DAILY PO Last administered on 07/04/20at 09:23; Start 06/29/20 at 09:00; Stop 07/04/20 at 14:46; Status DC Acetaminophen/ Hydrocodone Bitart (Lortab 7.5-325/ 15ml Oral Solution) 10 ml 1X ONCE PEG Last administered on 06/28/20at 12:37; Start 06/28/20 at 12:30; Stop 06/28/20 at 12:31; Status DC Piperacillin Sod/ Tazobactam Sod 3.375 gm/Sodium Chloride 50 ml @ 100 mls/hr Q6HRS IV Last administered on 07/07/20at 06:11; Start 06/29/20 at 10:00; Stop 07/07/20 at 09:51; Status DC Vecuronium [place] (Norcuron Bolus) 10 mg STK-MED ONCE IV ; Start 06/29/20 at 14:31; Stop 06/29/20 at 14:31; Status DC Propofol 100 ml @ 0 mls/hr CONT PRN IV PER PROTOCOL Last administered on 07/02/20at 07:26; Start 06/29/20 at 16:30; Stop 07/08/20 at 12:58; Status DC Vecuronium [place] (Norcuron Bolus) 10 mg 1X ONCE IV Last administered on 06/29/20at 14:31; Start 06/29/20 at 14:31; Stop 06/29/20 at 17:19; Status DC Daptomycin 400 mg/ Sodium Chloride 50 ml @ 100 mls/hr Q24H IV Last ad ministered on 07/04/20at 09:25; Start 06/30/20 at 10:00; Stop 07/05/20 at 08:14; Status DC Famotidine (Pepcid) 20 mg QHS GT Last administered on 07/08/20at 21:12; Start 07/02/20 at 21:00 Haloperidol Lactate (Haldol Inj) 5 mg Q8HRS IVP Last administered on 07/03/20at 06:00; Start 07/02/20 at 14:00; Stop 07/03/20 at 12:40; Status DC Micafungin Sodium 100 mg/Dextrose 100 ml @ 100 mls/hr Q24H IV Last administered on 07/05/20at 08:04; Start 07/03/20 at 09:00; Stop 07/05/20 at 08:14; Status DC Alteplase, Recombinant (Cathflo For Central Catheter Clearance) 1 mg 1X ONCE INT CAT Last administered on 07/03/20at 08:45; Start 07/03/20 at 08:45; Stop 07/03/20 at 08:46; Status DC Haloperidol Lactate (Haldol Inj) 2.5 mg PRN Q6HRS PRN IVP AGITATION; Start 07/03/20 at 12:30; Stop 07/03/20 at 12:40; Status DC Haloperidol Lactate (Haldol Inj) 2.5 mg PRN Q6HRS PRN IVP AGITATION Last administered on 07/04/20at 01:04; Start 07/03/20 at 14:00; Stop 07/04/20 at 08:04; Status DC Haloperidol Lactate (Haldol Inj) 2.5 mg Q8HRS IVP ; Start 07/04/20 at 10:00; Stop 07/04/20 at 08:15; Status DC Haloperidol Lactate (Haldol Inj) 2.5 mg PRN Q8HRS PRN IVP AGITATION; Start 07/04/20 at 08:15; Stop 07/05/20 at 10:35; Status DC Lisinopril (Prinivil) 20 mg BID PO Last administered on 07/09/20at 08:33; Start 07/04/20 at 21:00 Haloperidol (Haldol) 0.5 mg PRN Q8HRS PRN PO AGITATION; Start 07/05/20 at 10:45 Acetaminophen (Tylenol) 650 mg PRN Q6HRS PRN PO MILD PAIN / TEMP > 100.3'F Last administered on 07/09/20at 08:38; Start 07/06/20 at 13:30 Amoxicillin/ Clavulanate Potassium (Augmentin 875/ 125mg) 1 tab BID PO Last administered on 07/09/20at 08:33; Start 07/07/20 at 21:00 Active Scripts Active Reported Acetaminophen-Diphenhyd 500-25 (Acetaminophen/Diphenhydramine) 1 Each Tablet 1 Each PO HS PRN Naproxen 500 Mg Tablet 1 Tab PO BID PRN 30 Days Tramadol Hcl 50 Mg Tablet 50 Mg PO Q4HRS Levothyroxine Sodium 75 Mcg Tablet 1 Tab PO DAILY Adderall 20 Mg Tablet (Dextroamphetamine/Amphetamine) 20 Mg Tablet 1 Tab PO WILFRIDO LY MDD 1 Tablet(s) 5 Days Prozac (Fluoxetine Hcl) 20 Mg Capsule 1 Cap PO [id number] Vitals/I & O Vital Sign - Last 24 Hours 07/08/20 07/08/20 07/08/20 07/08/20 11:59 12:10 15:13 15:59 Temp 98.5 97.5 98.5 97.5 Pulse 85 89 Resp 18 18 B/P (MAP) 159/69 (99) 129/72 (91) Pulse Ox 96 98 95 O2 Delivery Room Air Tracheal Collar Tracheal Collar Room Air O2 Flow Rate 8.0 8.0 07/08/20 07/08/20 07/08/20 07/08/20 17:47 19:00 19:53 20:15 Temp 97.5 97.5 Pulse 89 83 Resp 18 B/P (MAP) 129/72 146/72 (96) Pulse Ox 98 98 O2 Delivery Tracheal Collar Tracheal Collar Trach Collar O2 Flow Rate 8.0 8.0 07/08/20 07/08/20 07/09/20 07/09/20 21:12 23:01 03:08 07:00 Temp 98.4 98.2 97.5 98.4 98.2 97.5 Pulse 83 74 75 71 Resp 18 20 18 B/P (MAP) 146/72 126/62 (83) 107/61 (76) 145/71 (95) Pulse Ox 95 100 95 O2 Delivery Tracheal Collar Tracheal Collar Tracheal Collar 07/09/20 07/09/20 07/09/20 07/09/20 07:12 08:00 08:33 08:33 Pulse 71 71 B/P (MAP) 145/71 145/71 Pulse Ox 97 O2 Delivery Tracheal Collar Trach Collar O2 Flow Rate 8.0 07/09/20 07/09/20 08:33 11:00 Temp 98.4 98.4 Pulse 71 80 Resp 18 B/P (MAP) 145/71 153/75 (101) Pulse Ox 97 O2 Delivery Tracheal Collar Intake and Output 0 07/08/20 07/08/20 07/09/20 15:00 23:00 07:00 Intake Total 425 ml 1752 ml 648 ml Output Total 1070 ml 700 ml Balance 425 ml 682 ml -52 ml Justicifation of Admission Dx: Justifications for Admission: Justification of Admission Dx: N/A JEFF FLORES MD Jul 09, 2020 11:52
--- NOTE | 2020-07-09 14:48 | NUR ---
SW following for discharge planning. Spoke with RN and reviewed chart. Pt transferred from ICU. Spoke with spouse Edis ([phone]) today who stated he is not ready for hospice for pt yet. Pt has been denied for LTACH per insurance. Pt has a feeding tube and a trach. SW following.
[2020-07-09 15:00] VITALS: BP 146/71
[2020-07-09 19:00] VITALS: BP 150/81
[2020-07-09] MEDS: ATORVASTATIN CALCIUM 20 MG TABLET PO SCH (21:20)
[2020-07-09] MEDS: ENOXAPARIN 40 MG/0.4 ML SYRINGE. SQ SCH (21:20)
[2020-07-09] MEDS: FAMOTIDINE 20 MG TABLET. GT SCH (21:20)
[2020-07-09 23:00] VITALS: BP 133/66
[2020-07-10 02:37] VITALS: BP 132/62
[2020-07-10] MEDS: LEVOTHYROXINE 75 MCG TABLET PO SCH (06:21)
--- NOTE | 2020-07-10 06:53 | PDOC ---
PROGRESS NOTES Date of Service: DATE: 07/10/20 TIME: 06:53 Chief Complaint Chief Complaint POST covid cardiomyopathy acute systolic CHF Severe NICM: EF 25%. No significant CAD per [facility] anoxic brain injury Cardiac arrest with resuscitation and probable pneumonia, sternal fracture and pneumothorax secondary to CPR, leukocytosis, electrolyte disturbance, hypokalemia, lactic acidosis, elevated troponin. Family wants to try [address] [facility] History of Present Illness History of Present Illness 07/09 S/P cardiac arrest 06/17 S/P trach on 06/26 ----- S/P peg 06/27 NO PURPOSEFUL movement D/W manager oncology wants to try [address] [facility] Transfer to [facility] d/w rn 07/08: Patient seen and evaluated with at bedside. No significant change overnight, still no purposeful movements. Sounds as though family still plans to hold off on any change in CODE STATUS or goals of care until at least 30 days after admission date. did show me some video of patient smiling and having meaningful exchange with a family friend today. 07/07. Transfer out of ICU to the medical floors. Discussed with , he feels that music is helping patient. She will occasionally check in with eyes, but no purposeful movements. Has been mentioned trying to give 30 days for admission to show any signs of meaningful improvement. At which time decision w ill be made about hospice in future goals of care. 07/06, will transfer to floor, no tele, off vent now for some time. discussed with , she does seem improved, she had a tiny smile to some music earlier, still not following commands or any purposeful response 07/05, about the same, discussed my previous thoughts again with and son, not following commands, movement is seeming to be mostly reflexive. they still want to cont iwth the 30 days plan to give her a chance to improve. I discussed possible transition to hospice, they want to wait until that time. 07/04-, minmal change, some relfexive movements, had a video of her withdrawing to light touch to face, soem work with PT, not following commands as directed I discussed poor prognosis with at length, that as days go by, her chances for meaningful recovery continue to dim. I discussed consideration of hospice care. 07/03/2020, discussed plan with family at length yesterday Patient seen and examined in the ICU plan LTAC start PT and OT moving around a lot She is still not very responsive but at the same time kind of agitated Vitals Vitals Vital Signs Date Time Temp Pulse Resp B/P (MAP) Pulse Ox O2 Delivery O2 Flow Rate FiO2 07/10/20 02:37 98.8 71 20 132/62 (85) 97 Tracheal Collar 8.0 98.8 Physical Exam Physical Exam GENERAL: Opens eyes transiently, does not follow any commands, HEENT: Both pupils are round and reacting. No conjunctival lesion. NECK: Supple. Trach present, erythema and drainage present around trach site improving LUNGS: Decreased breath sounds bilaterally. HEART: S1, S2, regular. No gallop or murmur. ABDOMEN: Soft, nontender. No organomegaly.peg tube + fecal tube , Jolly present EXTREMITIES: No edema or cyanosis. toe amputation of the Rt foot,healed scars SKIN: Unremarkable. NEUROLOGICAL: Opens eyes transiently does not follow any commands General: No acute distress Heart: Regular rate, Normal S1, Normal S2 Lungs: Clear Abdomen: Soft, No masses Extremities: No cyanosis Skin: No rashes, No breakdown Labs LABS Laboratory Tests Test 07/09/20 18:36 07/10/20 00:53 Glucose (Fingerstick) 122 mg/dL (70-99) 123 mg/dL (70-99) Assessment and Plan Assessmemt and Plan Problems Medical Problems: (1) Cardiac arrest Status: Acute (2) Fracture of ribs, multiple Status: Acute (3) Hyperglycemia Status: Acute (4) Pneumonia Status: Acute (5) Pneumothorax, right Status: Acute (6) Sternal fracture Status: Acute (7) VF (ventricular fibrillation) Status: Acute Comment Review of Relevant I have reviewed the following items afua (where applicable) has been applied. Labs Laboratory Tests Test 07/08/20 12:25 07/08/20 19:02 07/08/20 23:50 07/09/20 05:10 Glucose (Fingerstick) 129 mg/dL (70-99) 129 mg/dL (70-99) 143 mg/dL (70-99) White Blood Count 12.8 x10^3/uL (4.0-11.0) Red Blood Count 4.28 x10^6/uL (3.50-5.40) Hemoglobin 12.7 g/dL (12.0-15.5) Hematocrit 39.2 % (36.0-47.0) Mean Corpuscular Volume 92 fL (79-100) Mean Corpuscular Hemoglobin 30 pg (25-35) Mean Corpuscular Hemoglobin Concent 32 g/dL (31-37) Red Cell Distribution Width 13.4 % (11.5-14.5) Platelet Count 506 x10^3/uL (140-400) Neutrophils (%) (Auto) 72 % (31-73) Lymphocytes (%) (Auto) 16 % (24-48) Monocytes (%) (Auto) 5 % (0-9) Eosinophils (%) (Auto) 7 % (0-3) Basophils (%) (Auto) 1 % (0-3) Neutrophils # (Auto) 9.2 x10^3/uL (1.8-7.7) Lymphocytes # (Auto) 2.0 x10^3/uL (1.0-4.8) Monocytes # (Auto) 0.7 x10^3/uL (0.0-1.1) Eosinophils # (Auto) 0.9 x10^3/uL (0.0-0.7) Basophils # (Auto) 0.1 x10^3/uL (0.0-0.2) Sodium Level 146 mmol/L (136-145) Potassium Level 3.8 mmol/L (3.5-5.1) Chloride Level 106 mmol/L (98-107) Carbon Dioxide Level 30 mmol/L (21-32) Anion Gap 10 (6-14) Blood Urea Nitrogen 26 mg/dL (7-20) Creatinine 0.7 mg/dL (0.6-1.0) Estimated GFR (Cockcroft-Gault) 86.2 Glucose Level 108 mg/dL (70-99) Calcium Level 9.7 mg/dL (8.5-10.1) Test 07/09/20 05:45 07/09/20 18:36 07/10/20 00:53 Glucose (Fingerstick) 119 mg/dL (70-99) 122 mg/dL (70-99) 123 mg/dL (70-99) Laboratory Tests Test 07/09/20 18:36 07/10/20 00:53 Glucose (Fingerstick) 122 mg/dL (70-99) 123 mg/dL (70-99) Microbiology 06/30/20 Gram Stain - Final, Complete 06/30/20 Aerobic and Anaerobic Culture - Final, Complete 06/17/20 Blood Culture - Final, Complete NO GROWTH AFTER 5 DAYS Medications Current Medications Amiodarone HCl 150 mg/Dextrose 103 ml @ 618 mls/hr 1X ONCE IV Last administered on 06/17/20at 07:00; Start 06/17/20 at 07:00; Stop 06/17/20 at 07:09; Status DC Amiodarone HCl 450 mg/Dextrose 259 ml @ 33 mls/hr 1X ONCE IV ; Start 06/17/20 at 07:00; Stop 06/17/20 at 14:50; Status DC Sodium Chloride 1,000 ml @ 1,000 mls/hr 1X ONCE IV Last administered on 06/17/20at 08:11; Start 06/17/20 at 07:15; Stop 06/17/20 at 08:14; Status DC Midazolam HCl 100 ml @ 0 mls/hr 1X ONCE IV ; Start 06/17/20 at 07:15; Stop 06/17/20 at 07:16; Status DC Midazolam HCl (Versed) 5 mg STK-MED ONCE .ROUTE ; Start 06/17/20 at 07:17; Stop 06/17/20 at 07:17; Status DC Iohexol (Omnipaque 300 Mg/ml) 75 ml 1X ONCE IV Last administered on 06/17/20at 08:17; Start 06/17/20 at 08:15; Stop 06/17/20 at 08:16; Status DC Iohexol (Omnipaque 350 Mg/ml) 100 ml 1X ONCE IV Last administered on 06/17/20at 08:17; Start 06/17/20 at 08:15; Stop 06/17/20 at 08:16; Status DC Info (CONTRAST GIVEN -- Rx MONITORING) 1 each PRN DAILY PRN MC SEE COMMENTS; Start 06/17/20 at 08:15; Stop 06/19/20 at 08:14; Status DC Sodium Chloride 1,000 ml @ 1,000 mls/hr 1X ONCE IV Last administered on 06/17/20at 08:25; Start 06/17/20 at 08:15; Stop 06/17/20 at 09:14; Status DC Potassium Chloride/Water 100 ml @ 50 mls/hr 1X ONCE IV Last administered on 06/17/20at 10:16; Start 06/17/20 at 09:00; Stop 06/17/20 at 10:59; Status DC Piperacillin Sod/ Tazobactam Sod (Zosyn Per Pharmacy) 1 each PRN DAILY PRN MC SEE COMMENTS; Start 06/17/20 at 08:45; Stop 06/27/20 at 11:36; Status DC Piperacillin Sod/ Tazobactam Sod 4.5 gm/Sodium Chloride 100 ml @ 200 mls/hr 1X ONCE IV Last administered on 06/17/20at 10:15; Start 06/17/20 at 08:45; Stop 06/17 at 09:14; Status DC Sodium Chloride 1,000 ml @ 125 mls/hr Q8H IV Last administered on 06/17/20at 23:39; Start 06/17/20 at 09:00; Stop 06/18/20 at 08:59; Status DC Propofol (Diprivan) 200 mg 1X ONCE IV Last administered on 06/17/20at 09:00; Start 06/17/20 at 09:00; Stop 06/17/20 at 09:01; Status DC Propofol 100 ml @ As Directed STK-MED ONCE IV ; Start 06/17/20 at 09:05; Stop 06/17/20 at 09:05; Status DC Lidocaine HCl (Lidocaine 1% 20ml Vial) 20 ml 1X ONCE INJ Last administered on 06/17/20at 09:15; Start 06/17/20 at 09:15; Stop 06/17/20 at 09:20; Status DC Lidocaine HCl (Xylocaine-Mpf 1% 5ml Vial) 5 ml STK-MED ONCE .ROUTE ; Start at 09:26; Stop 06/17/20 at 09:26; Status DC Sodium Chloride 1,000 ml @ 1,000 mls/hr 1X ONCE IV Last administered on 06/17at 10:15; Start 06/17/20 at 10:15; Stop 06/17/20 at 11:14; Status DC Propofol 100 ml @ 3.819 mls/ hr CONT PRN IV PER PROTOCOL Last administered on 06/25/20at 06:12; Start 06/17/20 at 10:45; Stop 06/29/20 at 11:47; Status DC Fentanyl Citrate (Fentanyl 2ml Vial) 100 mcg 1X ONCE IV ; Start 06/17/20 at 12:00; Stop 06/17/20 at 12:39; Status DC Midazolam HCl (Versed) 2 mg 1X ONCE IV ; Start 06/17/20 at 12:00; Stop 06/17/20 at 12:39; Status DC Magnesium Sulfate/ Dextrose 100 ml @ 100 mls/hr 1X ONCE IV Last administered on 06/17/20at 12:22; Start 06/17/20 at 12:00; Stop 06/17/20 at 12:39; Status DC Buspirone HCl (Buspar) 30 mg Q8H NG Last administered on 06/17/20at 12:31; Start 06/17/20 at 12:00; Stop 06/17/20 at 12:39; Status DC Glycerin/ Hypromellose/ Polyethylene (Artificial Tears) 1 drop Q6HRS OU ; Start 06/17/20 at 12:00; Stop 06/17/20 at 12:39; Status DC Glycerin/ Hypromellose/ Polyethylene (Artificial Tears) 1 drop PRN Q15MIN PRN OU DRY EYE; Start 06/17/20 at 12:00; Stop 06/17/20 at 12:39; Status DC Heparin Sodium (Porcine) (Heparin Sodium) 5,000 unit BID SQ ; Start 06/17/20 at 21:00; Stop 06/17/20 at 12:39; Status DC Pantoprazole Sodium (PROTONIX VIAL for IV PUSH) 40 mg DAILY IVP ; Start 06/18/20 at 09:00; Stop 06/17/20 at 12:39; Status DC Fentanyl Citrate 30 ml @ 0 mls/hr CONT PRN IV PER PROTOCOL.; Start 06/17/20 at 12:00; Stop 06/17/20 at 12:39; Status DC Propofol 100 ml @ 0 mls/hr CONT PRN IV PER PROTOCOL.; Start 06/17/20 at 12:00; Stop 06/17/20 at 12:39; Status DC Midazolam HCl 100 ml @ 0 mls/hr CONT PRN IV PER PROTOCOL; Start 06/17/20 at 12:00; Stop 06/17/20 at 12:39; Status DC Vecuronium [place] (Norcuron Bolus) 10 mg PRN Q1HR PRN IV SHIVERING; Start 06/17/20 at 12:00; Stop 06/17/20 at 12:39; Status DC Piperacillin Sod/ Tazobactam Sod 4.5 gm/Sodium Chloride 100 ml @ 200 mls/hr 1X ONCE IV ; Start 06/17/20 at 12:15; Stop 06/17/20 at 12:44; Status Cancel Midazolam HCl (Versed) 5 mg Q1HR PRN IV SEDATION Last administered on 06/29/20at 13:48; Start 06/17/20 at 12:45; Stop 07/08/20 at 12:59; Status DC Fentanyl Citrate (Fentanyl 2ml Vial) 100 mcg Q1HR IVP Last administered on 06/17/20at 18:55; Start 06/17/20 at 13:00; Stop 06/17/20 at 23:41; Status DC Piperacillin Sod/ Tazobactam Sod 3.375 gm/Sodium Chloride 50 ml @ 100 mls/hr Q6H IV Last administered on 06/27/20at 05:31; Start 06/17/20 at 16:00; Stop 06/27/20 at 11:30; Status DC Potassium Bicarbonate (Potassium Effervescent Tablet) 40 meq 1X ONCE NG Last administered on 06/18/20at 10:00; Start 06/18/20 at 09:45; Stop 06/18/20 at 09:48; Status DC Albuterol/ Ipratropium (Duoneb) 3 ml RTQID NEB Last administered on 07/09/20at 20:41; Start 06/18/20 at 20:00 Famotidine (Pepcid Vial) 20 mg BID IVP Last administered on 07/02/20at 08:05; Start 06/18/20 at 21:00; Stop 07/02/20 at 10:23; Status DC Enoxaparin Sodium (Lovenox 40mg Syringe) 40 mg Q24H SQ Last administered on 07/09/20at 21:20; Start 06/18/20 at 21:00 Levothyroxine Sodium (Synthroid) 75 mcg DAILY06 PO Last administered on 07/10/20at 06:21; Start 06/18/20 at 21:00 Fentanyl Citrate 30 ml @ 0 mls/hr CONT PRN IV SEE PROTOCOL Last administered on 06/28/20at 04:56; Start 06/18/20 at 20:15; Stop 06/29/20 at 11:47; Status DC Carvedilol (Coreg) 3.125 mg BIDWMEALS PO Last administered on 07/09/20at 17:07; Start 06/19/20 at 17:00 Atorvastatin Calcium (Lipitor) 20 mg QHS PO Last administered on 07/09/20at 21:20; Start 06/19/20 at 21:00 Aspirin (Aspirin Chewable) 81 mg DAILYWBKFT PO Last administered on 07/09/20at 08:32; Start 06/20/20 at 08:00 Aspirin (Aspirin Chewable) 81 mg 1X ONCE PO Last administered on 06/19/20at 15:57; Start 06/19/20 at 15:30; Stop 06/19/20 at 15:37; Status DC Potassium Chloride/Water 100 ml @ 100 mls/hr 1X ONCE IV Last administered on 06/19/20at 15:57; Start 06/19/20 at 15:30; Stop 06/19/20 at 16:29; Status DC Amiodarone HCl (Cordarone) 400 mg DAILY PO Last administered on 07/09/20at 08:33; Start 06/20/20 at 09:00 Furosemide (Lasix) 40 mg 1X ONCE IVP Last administered on 06/20/20at 14:38; St art 06/20/20 at 13:30; Stop 06/20/20 at 13:31; Status DC Potassium Chloride/Water 100 ml @ 100 mls/hr 1X ONCE IV Last administered on 06/20/20at 14:39; Start 06/20/20 at 13:30; Stop 06/20/20 at 14:29; Status DC Dexmedetomidine HCl 400 mcg/ Sodium Chloride 100 ml @ 0 mls/hr CONT PRN IV PER PROTOCOL Last administered on 06/29/20at 06:11; Start 06/21/20 at 10:45; Stop 06/29/20 at 11:47; Status DC Sodium Chloride 500 ml @ 500 mls/hr 1X PRN PRN IV SEE COMMENTS; Start 06/21/20 at 10:45 Atropine Sulfate (ATROPINE 0.5mg SYRINGE) 0.5 mg PRN Q5MIN PRN IV SEE COMMENTS; Start 06/21/20 at 10:45; Stop 06/29/20 at 11:47; Status DC Fentanyl Citrate (Fentanyl 2ml Vial) 50 mcg PRN Q2HR PRN IVP PAIN Last administered on 07/03/20at 04:14; Start 06/23/20 at 16:45 Midazolam HCl 100 ml @ 0 mls/hr CONT PRN IV SEE PROTOCOL Last administered on 06/28/20at 03:00; Start 06/25/20 at 11:45; Stop 06/29/20 at 11:47; Status DC Lidocaine HCl (Xylocaine-Mpf 1% 2ml Vial) 2 ml STK-MED ONCE .ROUTE ; Start 06/25/20 at 14:21; Stop 06/25/20 at 14:21; Status DC Iohexol (Omnipaque 300 Mg/ml) 100 ml STK-MED ONCE .ROUTE ; Start 06/25/20 at 14:21; Stop 06/25/20 at 14:21; Status DC Heparin Sodium/ Sodium Chloride 1,000 ml @ As Directed STK-MED ONCE .ROUTE ; Start 06/25/20 at 14:21; Stop 06/25/20 at 14:21; Status DC Heparin Sodium (Porcine) (Heparin Sodium) 10,000 unit STK-MED ONCE .ROUTE ; Start 06/25/20 at 14:31; Stop 06/25/20 at 14:31; Status DC Verapamil HCl (Verapamil) 5 mg STK-MED ONCE .ROUTE ; Start 06/25/20 at 14:31; Stop 06/25/20 at 14:31; Status DC Nitroglycerin (Nitroglycerin) 200 mcg STK-MED ONCE .ROUTE ; Start 06/25/20 at 14:31; Stop 06/25/20 at 14:31; Status DC Nitroglycerin (Nitroglycerin) 200 mcg 1X ONCE IART Last administered on 06/25/20at 15:09; Start 06/25/20 at 15:15; Stop 06/25/20 at 15:16; Status DC Verapamil HCl (Verapamil) 2.5 mg 1X ONCE IART Last administered on 06/25/20at 15:09; Start 06/25/20 at 15:15; Stop 06/25/20 at 15:16; Status DC Heparin Sodium (Porcine) (Heparin Sodium) 2,500 unit 1X ONCE IART Last administered on 06/25/20at 15:09; Start 06/25/20 at 15:15; Stop 06/25/20 at 15:16; Status DC Heparin Sodium/ Sodium Chloride (HEPARIN for ARTERIAL LINE FLUSH) 1,000 unit 1X ONCE IART Last administered on 06/25/20at 15:09; Start 06/25/20 at 15:15; Stop 06/25/20 at 15:16; Status DC Iohexol (Omnipaque 300 Mg/ml) 30 ml 1X ONCE IART Last administered on 06/25/20at 15:09; Start 06/25/20 at 15:15; Stop 06/25/20 at 15:16; Status DC Lidocaine HCl (Xylocaine-Mpf 1% 2ml Vial) 2 ml 1X ONCE INJ Last administered on 06/25/20at 15:09; Start 06/25/20 at 15:15; Stop 06/25/20 at 15:16; Status DC Amino Acids/ Glycerin/ Electrolytes 1,000 ml @ 80 mls/hr [id number] IV Last administered on 06/27/20at 20:50; Start 06/25/20 at 17:30; Stop 06/28/20 at 11:35; Status DC Potassium Chloride/Water 100 ml @ 100 mls/hr Q1H IV Last administered on 06/25/20at 18:46; Start 06/25/20 at 18:00; Stop 06/25/20 at 19:59; Status DC Rocuronium [place] (Zemuron) 50 mg STK-MED ONCE .ROUTE ; Start 06/26/20 at 11:37; Stop 06/26/20 at 11:38; Status DC Cellulose (Surgicel Fibrillar 1x2) 1 each STK-MED ONCE .ROUTE Last administered on 06/26/20at 13:20; Start 06/26/20 at 12:19; Stop 06/26/20 at 12:19; Status DC Bupivacaine HCl (Sensorcaine Mpf 0.5%) 30 ml STK-MED ONCE .ROUTE ; Start 06/26/20 at 12:19; Stop 06/26/20 at 12:19; Status DC Ondansetron HCl (Zofran) 4 mg STK-MED ONCE .ROUTE ; Start 06/26/20 at 13:13; Stop 06/26/20 at 13:13; Status DC Dexamethasone Sodium Phosphate (Decadron) 4 mg STK-MED ONCE .ROUTE ; Start 06/26/20 at 13:13; Stop 06/26/20 at 13:14; Status DC Cellulose (Surgicel Fibrillar 1x2) 1 each STK-MED ONCE .ROUTE Last administered on 06/26/20at 13:22; Start 06/26/20 at 13:25; Stop 06/26/20 at 13:25; Status DC Sevoflurane (Ultane) 30 ml STK-MED ONCE IH ; Start 06/26/20 at 13:37; Stop 06/26/20 at 13:38; Status DC Propofol (Diprivan) 200 mg STK-MED ONCE IV ; Start 06/26/20 at 13:38; Stop 06/26/20 at 13:38; Status DC Ringer's Solution 1,000 ml @ 30 mls/hr Q24H IV Last administered on 06/27/20at 08:39; Start 06/27/20 at 07:00; Stop 06/27/20 at 18:59; Status DC Prochlorperazine Edisylate (Compazine) 5 mg PACU PRN PRN IV NAUSEA, MRX1; Start 06/27/20 at 07:00; Stop 06/28/20 at 06:59; Status DC Propofol (Diprivan) 200 mg STK-MED ONCE IV ; Start 06/27/20 at 09:53; Stop 06/27/20 at 09:54; Status DC Lidocaine HCl (Lidocaine Pf 2% Vial) 5 ml STK-MED ONCE .ROUTE ; Start 06/27/20 at 09:54; Stop 06/27/20 at 09:54; Status DC Lisinopril (Prinivil) 5 mg DAILY PO Last administered on 07/04/20at 09:23; Start 06/29/20 at 09:00; Stop 07/04/20 at 14:46; Status DC Acetaminophen/ Hydrocodone Bitart (Lortab 7.5-325/ 15ml Oral Solution) 10 ml 1X ONCE PEG Last administered on 06/28/20at 12:37; Start 06/28/20 at 12:30; Stop 06/28/20 at 12:31; Status DC Piperacillin Sod/ Tazobactam Sod 3.375 gm/Sodium Chloride 50 ml @ 100 mls/hr Q6HRS IV Last administered on 07/07/20at 06:11; Start 06/29/20 at 10:00; Stop 07/07/20 at 09:51; Status DC Vecuronium [place] (Norcuron Bolus) 10 mg STK-MED ONCE IV ; Start 06/29/20 at 14:31; Stop 06/29/20 at 14:31; Status DC Propofol 100 ml @ 0 mls/hr CONT PRN IV PER PROTOCOL Last administered on 07/02/20at 07:26; Start 06/29/20 at 16:30; Stop 07/08/20 at 12:58; Status DC Vecuronium [place] (Norcuron Bolus) 10 mg 1X ONCE IV Last administered on 06/29/20at 14:31; Start 06/29/20 at 14:31; Stop 06/29/20 at 17:19; Status DC Daptomycin 400 mg/ Sodium Chloride 50 ml @ 100 mls/hr Q24H IV Last administered on 07/04/20at 09:25; Start 06/30/20 at 10:00; Stop 07/05/20 at 08:14; Status DC Famotidine (Pepcid) 20 mg QHS GT Last administered on 07/09/20at 21:20; Start 07/02/20 at 21:00 Haloperidol Lactate (Haldol Inj) 5 mg Q8HRS IVP Last administered on 07/03/20at 06:00; Start 07/02/20 at 14:00; Stop 07/03/20 at 12:40; Status DC Micafungin Sodium 100 mg/Dextrose 100 ml @ 100 mls/hr Q24H IV Last administ ered on 07/05/20at 08:04; Start 07/03/20 at 09:00; Stop 07/05/20 at 08:14; Status DC Alteplase, Recombinant (Cathflo For Central Catheter Clearance) 1 mg 1X ONCE INT CAT Last administered on 07/03/20at 08:45; Start 07/03/20 at 08:45; Stop 07/03/20 at 08:46; Status DC Haloperidol Lactate (Haldol Inj) 2.5 mg PRN Q6HRS PRN IVP AGITATION; Start 07/03/20 at 12:30; Stop 07/03/20 at 12:40; Status DC Haloperidol Lactate (Haldol Inj) 2.5 mg PRN Q6HRS PRN IVP AGITATION Last administered on 07/04/20at 01:04; Start 07/03/20 at 14:00; Stop 07/04/20 at 08:04; Status DC Haloperidol Lactate (Haldol Inj) 2.5 mg Q8HRS IVP ; Start 07/04/20 at 10:00; Stop 07/04/20 at 08:15; Status DC Haloperidol Lactate (Haldol Inj) 2.5 mg PRN Q8HRS PRN IVP AGITATION; Start 07/04/20 at 08:15; Stop 07/05/20 at 10:35; Status DC Lisinopril (Prinivil) 20 mg BID PO Last administered on 07/09/20at 21:21; Start 07/04/20 at 21:00 Haloperidol (Haldol) 0.5 mg PRN Q8HRS PRN PO AGITATION; Start 07/05/20 at 10:45 Acetaminophen (Tylenol) 650 mg PRN Q6HRS PRN PO MILD PAIN / TEMP > 100.3'F Last administered on 07/09/20at 21:20; Start 07/06/20 at 13:30 Amoxicillin/ Clavulanate Potassium (Augmentin 875/ 125mg) 1 tab BID PO Last administered on 07/09/20at 21:20; Start 07/07/20 at 21:00 Active Scripts Active Reported Acetaminophen-Diphenhyd 500-25 (Acetaminophen/Diphenhydramine) 1 Each Tablet 1 Each PO HS PRN Naproxen 500 Mg Tablet 1 Tab PO BID PRN 30 Days Tramadol Hcl 50 Mg Tablet 50 Mg PO Q4HRS Levothyroxine Sodium 75 Mcg Tablet 1 Tab PO DAILY Adderall 20 Mg Tablet (Dextroamphetamine/Amphetamine) 20 Mg Tablet 1 Tab PO DAILY MDD 1 Tablet(s) 5 Days Prozac (Fluoxetine Hcl) 20 Mg Capsule 1 Cap PO [id number] Vitals/I & O Vital Sign - Last 24 Hours 07/09/20 07/09/20 07/09/20 07/09/20 07:00 07:12 08:00 08:33 Temp 97.5 97.5 Pulse 71 71 Resp 18 B/P (MAP) 145/71 (95) 145/71 Pulse Ox 95 97 O2 Delivery Tracheal Collar Tracheal Collar Trach Collar O2 Flow Rate 8.0 07/09/20 07/09/20 07/09/20 07/09/20 08:33 08:33 11:00 15:00 Temp 98.4 97.1 98.4 97.1 Pulse 71 71 80 86 Resp 18 18 B/P (MAP) 145/71 145/71 153/75 (101) 146/71 (96) Pulse Ox 97 98 O2 Delivery Tracheal Collar Tracheal Collar 07/09/20 07/09/20 07/09/20 07/09/20 17:07 19:00 20:00 20:41 Temp 99.1 99.1 Pulse 86 22 Resp 22 B/P (MAP) 146/71 150/81 (104) Pulse Ox 97 99 O2 Delivery Tracheal Collar Trach Collar Tracheal Collar O2 Flow Rate 8.0 8.0 8.0 07/09/20 07/09/20 07/10/20 21:21 23:00 02:37 Temp 98.6 98.8 98.6 98.8 Pulse 81 78 71 Resp 20 20 B/P (MAP) 150/86 133/66 (88) 132/62 (85) Pulse Ox 98 97 O2 Delivery Tracheal Collar Tracheal Collar O2 Flow Rate 8.0 8.0 Intake and Output 07/09/20 07/09/20 07/10/20 15:00 23:00 07:00 Intake Total 185 ml 0 ml 1533 ml Output Total 600 ml 0 ml 450 ml Balance -415 ml 0 ml 1083 ml Justicifation of Admission Dx: Justifications for Admission: Justification of Admission Dx: N/A ARIELA BOTELLO MD Jul 10, 2020 06:53
[2020-07-10 07:00] VITALS: BP 142/65
[2020-07-10] MEDS: IPRATRPIUM/ALBUTEROL 0.5/2.5MG 3 ML NEBU. NEB SCH ×4 (07:46→20:47)
[2020-07-10] MEDS: AMIODARONE HCL 200 MG TABLET. PO SCH (08:21)
[2020-07-10] MEDS: AMOXICILLIN/K CLAV 875/125MG TABLET. PO SCH ×2 (08:21→21:18)
[2020-07-10] MEDS: ASPIRIN CHEWABLE 81 MG TABLET. PO SCH (08:21)
[2020-07-10] MEDS: CARVEDILOL 3.125 MG TABLET. PO SCH ×2 (08:22→17:10)
[2020-07-10] MEDS: LISINOPRIL 20 MG TABLET PO SCH ×2 (08:22→21:18)
--- NOTE | 2020-07-10 09:35 | PDOC ---
Date of Service: DATE: 07/10/20 TIME: 09:33 Objective: Objective: D/w nurse - had ~100cc residual, tube feed rate 40cc/hr. Might remove rectal tube and monitor stooling with brief. Vital Signs: Vital Signs Date Time Temp Pulse Resp B/P (MAP) Pulse Ox O2 Delivery O2 Flow Rate FiO2 07/10/20 08:22 91 142/65 07/10/20 07:47 98 Tracheal Collar 8.0 07/10/20 07:00 98.0 16 98.0 Labs: Laboratory Tests Test 07/09/20 18:36 07/10/20 00:53 07/10/20 07:12 Glucose (Fingerstick) 122 mg/dL (70-99) 123 mg/dL (70-99) 121 mg/dL (70-99) PE: GEN: NAD LUNGS: trach collar, clear HEART: RRR ABD: soft, quiet BS, non-distended, PEG in place, rectal tube w/ brown stool NEURO/PSYCH: awake, crossing left leg over right knee, does not follow commands A/P: Anoxic encephalopathy s/p trach and PEG -- Continue same per GI, could consider prokinetic if residuals remain high. Justicifation of Admission Dx: Justifications for Admission: Justification of Admission Dx: N/A SHAHBAZ FOSS Jul 10, 2020 09:35
--- NOTE | 2020-07-10 09:56 | PDOC ---
Infectious Disease Note Subjective Subjective does not follow any commands no fevers Tolerating tube feedings well No acute concerns per discussion with RN Vital Sign Vital Signs Vital Signs Date Time Temp Pulse Resp B/P (MAP) Pulse Ox O2 Delivery O2 Flow Rate FiO2 07/10/20 08:22 91 142/65 07/10/20 07:47 98 Tracheal Collar 8.0 07/10/20 07:00 98.0 16 98.0 Physical Exam PHYSICAL EXAM GENERAL: Opens eyes transiently, does not follow any commands, HEENT: Both pupils are round and reacting. No conjunctival lesion. NECK: Supple. Trach present, erythema and drainage present around trach site i mproving LUNGS: Decreased breath sounds bilaterally. HEART: S1, S2, regular. No gallop or murmur. ABDOMEN: Soft, nontender. No organomegaly.peg tube + fecal tube , Jolly present EXTREMITIES: No edema or cyanosis. toe amputation of the Rt foot,healed scars SKIN: Unremarkable. NEUROLOGICAL: Opens eyes transiently does not follow any commands Labs Lab Laboratory Tests Test 07/09/20 18:36 07/10/20 00:53 07/10/20 07:12 Glucose (Fingerstick) 122 mg/dL (70-99) 123 mg/dL (70-99) 121 mg/dL (70-99) Micro Microbiology 06/17/20 Blood Culture - Preliminary, Resulted NO GROWTH AFTER 1 DAY Objective Assessment 1. Cardiopulmonary arrest at home. With VT, shock then asystole s/p cardiac cath , normal coronaries Severe NICM Acute systolic CHF: compensated 2. Leukocytosis, likely reactive. resolved 3. Lactic acidosis from #1. 4. Respiratory failure. suspected aspiration; status post trach placement, swab culture from trach site with Filomena albicans 5. Anoxic Encephalopathy 6. Hypertension. 7. Pneumothorax.s/p CTS, 8. Rib fracture and sternal fracture. 9. Anemia 10. S/P Peg tube placement 11. Marijuana use: + UDS on amiodarone Plan Plan of Care Augmentin cont supportive care Overall prognosis poor Discussed with RN d/c cv line d/c to [facility] POPPY RENAE MD Jul 10, 2020 09:56
[2020-07-10 11:00] VITALS: BP 140/69
[2020-07-10 12:07] LABS: BILIRUBIN,URINE NEGATIVE (NEG); CLARITY,URINE TURBID; COLOR,URINE RED; NITRITE,URINE NEGATIVE (NEG); PROTEIN,URINE 30 mg/dL (NEG-TRACE)
[2020-07-10 12:10] LABS: RBC,URINE TNTC /HPF (0-2)
[2020-07-10 12:11] LABS: BACTERIA,URINE MANY /HPF (0-FEW); WBC,URINE >40 /HPF (0-4)
--- NOTE | 2020-07-10 14:24 | NUR ---
SHIKHA following for discharge planning. Spoke with RN and reviewed chart. Spoke with CM who called pt's insurance company about possible LTACH benefits (denied per chart review and coordination with sofi Hyatt). SHIKHA obtained information from LORAINE and provided it to both Deloris with [employer] and Nima with [facility]. Nate denied again. SW awaiting answer from Audrey. SW following.
[2020-07-10 15:00] VITALS: BP 138/75
[2020-07-10 19:00] VITALS: BP 145/70
[2020-07-10] MEDS: fentaNYL PF VIAL 100 MCG/2 ML VIAL IVP PRN (20:00)
[2020-07-10] MEDS: ENOXAPARIN 40 MG/0.4 ML SYRINGE. SQ SCH (21:17)
[2020-07-10] MEDS: ATORVASTATIN CALCIUM 20 MG TABLET PO SCH (21:17)
[2020-07-10] MEDS: diphenhydrAMINE ORAL ELIXIR 12.5 MG/5 ML ML PEG PRN (21:17)
[2020-07-10] MEDS: FAMOTIDINE 20 MG TABLET. GT SCH (21:18)
[2020-07-10 23:07] VITALS: BP 125/78
[2020-07-11] MEDS: fentaNYL PF VIAL 100 MCG/2 ML VIAL IVP PRN ×4 (00:44→22:44)
[2020-07-11] MEDS: HALOPERIDOL 0.5 MG TABLET. PO PRN ×2 (01:21→16:37)
[2020-07-11 03:00] VITALS: BP 117/69
[2020-07-11] MEDS: LEVOTHYROXINE 75 MCG TABLET PO SCH (04:33)
[2020-07-11] MEDS: diphenhydrAMINE ORAL ELIXIR 12.5 MG/5 ML ML PEG PRN ×2 (05:46→19:52)
[2020-07-11 07:00] VITALS: BP 122/66
[2020-07-11] MEDS: IPRATRPIUM/ALBUTEROL 0.5/2.5MG 3 ML NEBU. NEB SCH ×4 (07:22→19:54)
--- NOTE | 2020-07-11 08:24 | PDOC ---
PROGRESS NOTES Date of Service: DATE: 07/11/20 TIME: 08:24 Chief Complaint Chief Complaint POST covid cardiomyopathy acute systolic CHF Severe NICM: EF 25%. No significant CAD per [facility] anoxic brain injury Cardiac arrest with resuscitation and probable pneumonia, sternal fracture and pneumothorax secondary to CPR, leukocytosis, electrolyte disturbance, hypokalemia, lactic acidosis, elevated troponin. 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 No significant change overnight, still no purposeful movements. Sounds as though family still plans to hold off on any change in CODE STATUS or goals of care until at least 30 days after admission date. did show me some video of patient smiling and having meaningful exchange with a family friend today. 07/07. Transfer out of ICU to the medical floors. Discussed with , he feels that music is helping patient. She will occasionally check in with eyes, but no purposeful movements. Has been mentioned trying to give 30 days for admission to show any signs of meaningful improvement. At which time decision w ill be made about hospice in future goals of care. 07/06, will transfer to floor, no tele, off vent now for some time. discussed with , she does seem improved, she had a tiny smile to some music earlier, still not following commands or any purposeful response 07/05, about the same, discussed my previous thoughts again with and son, not following commands, movement is seeming to be mostly reflexive. they still want to cont iwth the 30 days plan to give her a chance to improve. I discussed possible transition to hospice, they want to wait until that time. 07/04-, minmal change, some relfexive movements, had a video of her withdrawing to light touch to face, soem work with PT, not following commands as directed I discussed poor prognosis with at length, that as days go by, her chances for meaningful recovery continue to dim. I discussed consideration of hospice care. 07/03/2020, discussed plan with family at length yesterday Patient seen and examined in the ICU plan LTAC start PT and OT moving around a lot She is still not very responsive but at the same time kind of agitated Vitals Vitals Vital Signs Date Time Temp Pulse Resp B/P (MAP) Pulse Ox O2 Delivery O2 Flow Rate FiO2 07/11/20 07:22 100 Tracheal Collar 8.0 07/11/20 07:00 97.8 59 16 122/66 (84) 97.8 Physical Exam Physical Exam GENERAL: Opens eyes transiently, does not follow any commands, HEENT: Both pupils are round and reacting. No conjunctival lesion. NECK: Supple. Trach present, erythema and drainage present around trach site improving LUNGS: Decreased breath sounds bilaterally. HEART: S1, S2, regular. No gallop or murmur. ABDOMEN: Soft, nontender. No organomegaly.peg tube + fecal tube , Jolly present EXTREMITIES: No edema or cyanosis. toe amputation of the Rt foot,healed scars SKIN: Unremarkable. NEUROLOGICAL: Opens eyes transiently does not follow any commands General: No acute distress Heart: Regular rate, Normal S1, Normal S2 Lungs: Clear Abdomen: Soft, No masses Extremities: No cyanosis Skin: No rashes, No breakdown Labs LABS Laboratory Tests Test 07/10/20 11:46 07/10/20 12:04 07/11/20 00:19 Urine Collection Type U cath Urine Color Red Urine Clarity Turbid Urine pH 8.0 (<5.0-8.0) Urine Specific West 1.020 (1.000-1.030) Urine Protein 30 mg/dL (NEG-TRACE) Urine Glucose (UA) Negative mg/dL (NEG) Urine Ketones (Stick) Negative mg/dL (NEG) Urine Blood Large (NEG) Urine Nitrite Negative (NEG) Urine Bilirubin Negative (NEG) Urine Urobilinogen Dipstick 2.0 mg/dL (0.2 mg/dL) Urine Leukocyte Esterase Moderate (NEG) Urine RBC Tntc /HPF (0-2) Urine WBC >40 /HPF (0-4) Urine Transitional Epithelial Cells Occ /LPF Urine Bacteria Many /HPF (0-FEW) Glucose (Fingerstick) 123 mg/dL (70-99) 99 mg/dL (70-99) Assessment and Plan Assessmemt and Plan Problems Medical Problems: (1) Cardiac arrest Status: Acute (2) Fracture of ribs, multiple Status: Acute (3) Hyperglycemia Status: Acute (4) Pneumonia Status: Acute (5) Pneumothorax, right Status: Acute (6) Sternal fracture Status: Acute (7) VF (ventricular fibrillation) Status: Acute Comment Review of Relevant I have reviewed the following items afua (where applicable) has been applied. Labs Laboratory Tests Test 07/09/20 18:36 07/10/20 00:53 07/10/20 07:12 07/10/20 11:46 Glucose (Fingerstick) 122 mg/dL (70-99) 123 mg/dL (70-99) 121 mg/dL (70-99) Urine Collection Type U cath Urine Color Red Urine Clarity Turbid Urine pH 8.0 (<5.0-8.0) Urine Specific West 1.020 (1.000-1.030) Urine Protein 30 mg/dL (NEG-TRACE) Urine Glucose (UA) Negative mg/dL (NEG) Urine Ketones (Stick) Negative mg/dL (NEG) Urine Blood Large (NEG) Urine Nitrite Negative (NEG) Urine Bilirubin Negative (NEG) Urine Urobilinogen Dipstick 2.0 mg/dL (0.2 mg/dL) Urine Leukocyte Esterase Moderate (NEG) Urine RBC Tntc /HPF (0-2) Urine WBC >40 /HPF (0-4) Urine Transitional Epithelial Cells Occ /LPF Urine Bacteria Many /HPF (0-FEW) Test 07/10/20 12:04 07/11/20 00:19 Glucose (Fingerstick) 123 mg/dL (70-99) 99 mg/dL (70-99) Laboratory Tests Test 07/10/20 11:46 07/10/20 12:04 07/11/20 00:19 Urine Collection Type U cath Urine Color Red Urine Clarity Turbid Urine pH 8.0 (<5.0-8.0) Urine Specific West 1.020 (1.000-1.030) Urine Protein 30 mg/dL (NEG-TRACE) Urine Glucose (UA) Negative mg/dL (NEG) Urine Ketones (Stick) Negative mg/dL (NEG) Urine Blood Large (NEG) Urine Nitrite Negative (NEG) Urine Bilirubin Negative (NEG) Urine Urobilinogen Dipstick 2.0 mg/dL (0.2 mg/dL) Urine Leukocyte Esterase Moderate (NEG) Urine RBC Tntc /HPF (0-2) Urine WBC >40 /HPF (0-4) Urine Transitional Epithelial Cells Occ /LPF Urine Bacteria Many /HPF (0-FEW) Glucose (Fingerstick) 123 mg/dL (70-99) 99 mg/dL (70-99) Microbiology 07/10/20 Urine Culture - Final, Complete 06/30/20 Gram Stain - Final, Complete 06/30/20 Aerobic and Anaerobic Culture - Final, Complete 06/17/20 Blood Culture - Final, Complete NO GROWTH AFTER 5 DAYS Medications Current Medications Amiodarone HCl 150 mg/Dextrose 103 ml @ 618 mls/hr 1X ONCE IV Last administered on 06/17/20at 07:00; Start 06/17/20 at 07:00; Stop 06/17/20 at 07:09; Status DC Amiodarone HCl 450 mg/Dextrose 259 ml @ 33 mls/hr 1X ONCE IV ; Start 06/17/20 at 07:00; Stop 06/17/20 at 14:50; Status DC Sodium Chloride 1,000 ml @ 1,000 mls/hr 1X ONCE IV Last administered on 06/17/20at 08:11; Start 06/17/20 at 07:15; Stop 06/17/20 at 08:14; Status DC Midazolam HCl 100 ml @ 0 mls/hr 1X ONCE IV ; Start 06/17/20 at 07:15; Stop 06/17/20 at 07:16; Status DC Midazolam HCl (Versed) 5 mg STK-MED ONCE .ROUTE ; Start 06/17/20 at 07:17; Stop 06/17/20 at 07:17; Status DC Iohexol (Omnipaque 300 Mg/ml) 75 ml 1X ONCE IV Last administered on 06/17/20at 08:17; Start 06/17/20 at 08:15; Stop 06/17/20 at 08:16; Status DC Iohexol (Omnipaque 350 Mg/ml) 100 ml 1X ONCE IV Last administered on 06/17/20at 08:17; Start 06/17/20 at 08:15; Stop 06/17/20 at 08:16; Status DC Info (CONTRAST GIVEN -- Rx MONITORING) 1 each PRN DAILY PRN MC SEE COMMENTS; Start 06/17/20 at 08:15; Stop 06/19/20 at 08:14; Status DC Sodium Chloride 1,000 ml @ 1,000 mls/hr 1X ONCE IV Last administered on 06/17/20at 08:25; Start 06/17/20 at 08:15; Stop 06/17/20 at 09:14; Status DC Potassium Chloride/Water 100 ml @ 50 mls/hr 1X ONCE IV Last administered on 06/17/20at 10:16; Start 06/17/20 at 09:00; Stop 06/17/20 at 10:59; Status DC Piperacillin Sod/ Tazobactam Sod (Zosyn Per Pharmacy) 1 each PRN DAILY PRN MC SEE COMMENTS; Start 06/17/20 at 08:45; Stop 06/27/20 at 11:36; Status DC Piperacillin Sod/ Tazobactam Sod 4.5 gm/Sodium Chloride 100 ml @ 200 mls/hr 1X ONCE IV Last administered on 06/17/20at 10:15; Start 06/17/20 at 08:45; Stop 06/17/20 at 09:14; Status DC Sodium Chloride 1,000 ml @ 125 mls/hr Q8H IV Last administered on 06/17/20at 23:39; Start 06/17/20 at 09:00; Stop 06/18/20 at 08:59; Status DC Propofol (Diprivan) 200 mg 1X ONCE IV Last administered on 06/17/20at 09:00; Start 06/17/20 at 09:00; Stop 06/17/20 at 09:01; Status DC Propofol 100 ml @ As Directed STK-MED ONCE IV ; Start 06/17/20 at 09:05; Stop 06/17/20 at 09:05; Status DC Lidocaine HCl (Lidocaine 1% 20ml Vial) 20 ml 1X ONCE INJ Last administered on 06/17/20at 09:15; Start 06/17/20 at 09:15; Stop 06/17/20 at 09:20; Status DC Lidocaine HCl (Xylocaine-Mpf 1% 5ml Vial) 5 ml STK-MED ONCE .ROUTE ; Start 06/17/20 at 09:26; Stop 06/17/20 at 09:26; Status DC Sodium Chloride 1,000 ml @ 1,000 mls/hr 1X ONCE IV Last administered on 06/17/20at 10:15; Start 06/17/20 at 10:15; Stop 06/17/20 at 11:14; Status DC Propofol 100 ml @ 3.819 mls/ hr CONT PRN IV PER PROTOCOL Last administered on 06/25/20at 06:12; Start 06/17/20 at 10:45; Stop 06/29/20 at 11:47; Status DC Fentanyl Citrate (Fentanyl 2ml Vial) 100 mcg 1X ONCE IV ; Start 06/17/20 at 12:00; Stop 06/17/20 at 12:39; Status DC Midazolam HCl (Versed) 2 mg 1X ONCE IV ; Start 06/17/20 at 12:00; Stop 06/17/20 at 12:39; Status DC Magnesium Sulfate/ Dextrose 100 ml @ 100 mls/hr 1X ONCE IV Last administered on 06/17/20at 12:22; Start 06/17/20 at 12:00; Stop 06/17/20 at 12:39; Status DC Buspirone HCl (Buspar) 30 mg Q8H NG Last administered on 06/17/20at 12:31; Start 06/17/20 at 12:00; Stop 06/17/20 at 12:39; Status DC Glycerin/ Hypromellose/ Polyethylene (Artificial Tears) 1 drop Q6HRS OU ; Start 06/17/20 at 12:00; Stop 06/17/20 at 12:39; Status DC Glycerin/ Hypromellose/ Polyethylene (Artificial Tears) 1 drop PRN Q15MIN PRN OU DRY EYE; Start 06/17/20 at 12:00; Stop 06/17/20 at 12:39; Status DC Heparin Sodium (Porcine) (Heparin Sodium) 5,000 unit BID SQ ; Start 06/17/20 at 21:00; Stop 06/17/20 at 12:39; Status DC Pantoprazole Sodium (PROTONIX VIAL for IV PUSH) 40 mg DAILY IVP ; Start 06/18/20 at 09:00; Stop 06/17/20 at 12:39; Status DC Fentanyl Citrate 30 ml @ 0 mls/hr CONT PRN IV PER PROTOCOL.; Start 06/17/20 at 12:00; Stop 06/17/20 at 12:39; Status DC Propofol 100 ml @ 0 mls/hr CONT PRN IV PER PROTOCOL.; Start 06/17/20 at 12:00; Stop 06/17/20 at 12:39; Status DC Midazolam HCl 100 ml @ 0 mls/hr CONT PRN IV PER PROTOCOL; Start 06/17/20 at 12:00; Stop 06/17/20 at 12:39; Status DC Vecuronium [place] (Norcuron Bolus) 10 mg PRN Q1HR PRN IV SHIVERING; Start 06/17/20 at 12:00; Stop 06/17/20 at 12:39; Status DC Piperacillin Sod/ Tazobactam Sod 4.5 gm/Sodium Chloride 100 ml @ 200 mls/hr 1X ONCE IV ; Start 06/17/20 at 12:15; Stop 06/17/20 at 12:44; Status Cancel Midazolam HCl (Versed) 5 mg Q1HR PRN IV SEDATION Last administered on 06/29/20at 13:48; Start 06/17/20 at 12:45; Stop 07/08/20 at 12:59; Status DC Fentanyl Citrate (Fentanyl 2ml Vial) 100 mcg Q1HR IVP Last administered on 06/17/20at 18:55; Start 06/17/20 at 13:00; Stop 06/17/20 at 23:41; Status DC Piperacillin Sod/ Tazobactam Sod 3.375 gm/Sodium Chloride 50 ml @ 100 mls/hr Q6H IV Last administered on 06/27/20at 05:31; Start 06/17/20 at 16:00; Stop 06/27/20 at 11:30; Status DC Potassium Bicarbonate (Potassium Effervescent Tablet) 40 meq 1X ONCE NG Last administered on 06/18/20at 10:00; Start 06/18/20 at 09:45; Stop 06/18/20 at 09:48; Status DC Albuterol/ Ipratropium (Duoneb) 3 ml RTQID NEB Last administered on 07/11/20at 07:22; Start 06/18/20 at 20:00 Famotidine (Pepcid Vial) 20 mg BID IVP Last administered on 07/02/20at 08:05; Start 06/18/20 at 21:00; Stop 07/02/20 at 10:23; Status DC Enoxaparin Sodium (Lovenox 40mg Syringe) 40 mg Q24H SQ Last administered on 07/10/20at 21:17; Start 06/18/20 at 21:00 Levothyroxine Sodium (Synthroid) 75 mcg DAILY06 PO Last administered on 07/11/20at 04:33; Start 06/18/20 at 21:00 Fentanyl Citrate 30 ml @ 0 mls/hr CONT PRN IV SEE PROTOCOL Last administered on 06/28/20at 04:56; Start 06/18/20 at 20:15; Stop 06/29/20 at 11:47; Status DC Carvedilol (Coreg) 3.125 mg BIDWMEALS PO Last administered on 07/10/20at 17:10; Start 06/19/20 at 17:00 Atorvastatin Calcium (Lipitor) 20 mg QHS PO Last administered on 07/10/20at 21:17; Start 06/19/20 at 21:00 Aspirin (Aspirin Chewable) 81 mg DAILYWBKFT PO Last administered on 07/10/20at 08:21; Start 06/20/20 at 08:00 Aspirin (Aspirin Chewable) 81 mg 1X ONCE PO Last administered on 06/19/20at 15:57; Start 06/19/20 at 15:30; Stop 06/19/20 at 15:37; Status DC Potassium Chloride/Water 100 ml @ 100 mls/hr 1X ONCE IV Last administered on 06/19/20at 15:57; Start 06/19/20 at 15:30; Stop 06/19/20 at 16:29; Status DC Amiodarone HCl (Cordarone) 400 mg DAILY PO Last administered on 07/10/20at 0 8:21; Start 06/20/20 at 09:00 Furosemide (Lasix) 40 mg 1X ONCE IVP Last administered on 06/20/20at 14:38; Start 06/20/20 at 13:30; Stop 06/20/20 at 13:31; Status DC Potassium Chloride/Water 100 ml @ 100 mls/hr 1X ONCE IV Last administered on 06/20/20at 14:39; Start 06/20/20 at 13:30; Stop 06/20/20 at 14:29; Status DC Dexmedetomidine HCl 400 mcg/ Sodium Chloride 100 ml @ 0 mls/hr CONT PRN IV PER PROTOCOL Last administered on 06/29/20at 06:11; Start 06/21/20 at 10:45; Stop 06/29/20 at 11:47; Status DC Sodium Chloride 500 ml @ 500 mls/hr 1X PRN PRN IV SEE COMMENTS; Start 06/21/20 at 10:45 Atropine Sulfate (ATROPINE 0.5mg SYRINGE) 0.5 mg PRN Q5MIN PRN IV SEE COMMENTS; Start 06/21/20 at 10:45; Stop 06/29/20 at 11:47; Status DC Fentanyl Citrate (Fentanyl 2ml Vial) 50 mcg PRN Q2HR PRN IVP PAIN Last administered on 07/11/20at 04:33; Start 06/23/20 at 16:45 Midazolam HCl 100 ml @ 0 mls/hr CONT PRN IV SEE PROTOCOL Last administered on 06/28/20at 03:00; Start 06/25/20 at 11:45; Stop 06/29/20 at 11:47; Status DC Lidocaine HCl (Xylocaine-Mpf 1% 2ml Vial) 2 ml STK-MED ONCE .ROUTE ; Start 06/25/20 at 14:21; Stop 06/25/20 at 14:21; Status DC Iohexol (Omnipaque 300 Mg/ml) 100 ml STK-MED ONCE .ROUTE ; Start 06/25/20 at 14:21; Stop 06/25/20 at 14:21; Status DC Heparin Sodium/ Sodium Chloride 1,000 ml @ As Directed STK-MED ONCE .ROUTE ; Start 06/25/20 at 14:21; Stop 06/25/20 at 14:21; Status DC Heparin Sodium (Porcine) (Heparin Sodium) 10,000 unit STK-MED ONCE .ROUTE ; Start 06/25/20 at 14:31; Stop 06/25/20 at 14:31; Status DC Verapamil HCl (Verapamil) 5 mg STK-MED ONCE .ROUTE ; Start 06/25/20 at 14:31; Stop 06/25/20 at 14:31; Status DC Nitroglycerin (Nitroglycerin) 200 mcg STK-MED ONCE .ROUTE ; Start 06/25/20 at 14:31; Stop 06/25/20 at 14:31; Status DC Nitroglycerin (Nitroglycerin) 200 mcg 1X ONCE IART Last administered on 06/25/20at 15:09; Start 06/25/20 at 15:15; Stop 06/25/20 at 15:16; Status DC Verapamil HCl (Verapamil) 2.5 mg 1X ONCE IART Last administered on 06/25/20at 15:09; Start 06/25/20 at 15:15; Stop 06/25/20 at 15:16; Status DC Heparin Sodium (Porcine) (Heparin Sodium) 2,500 unit 1X ONCE IART Last administered on 06/25/20at 15:09; Start 06/25/20 at 15:15; Stop 06/25/20 at 15:16; Status DC Heparin Sodium/ Sodium Chloride (HEPARIN for ARTERIAL LINE FLUSH) 1,000 unit 1X ONCE IART Last administered on 06/25/20at 15:09; Start 06/25/20 at 15:15; Stop 06/25/20 at 15:16; Status DC Iohexol (Omnipaque 300 Mg/ml) 30 ml 1X ONCE IART Last administered on 06/25/20at 15:09; Start 06/25/20 at 15:15; Stop 06/25/20 at 15:16; Status DC Lidocaine HCl (Xylocaine-Mpf 1% 2ml Vial) 2 ml 1X ONCE INJ Last administered on 06/25/20at 15:09; Start 06/25/20 at 15:15; Stop 06/25/20 at 15:16; Status DC Amino Acids/ Glycerin/ Electrolytes 1,000 ml @ 80 mls/hr [id number] IV Last administered on 06/27/20at 20:50; Start 06/25/20 at 17:30; Stop 06/28/20 at 11:35; Status DC Potassium Chloride/Water 100 ml @ 100 mls/hr Q1H IV Last administered on 06/25/20at 18:46; Start 06/25/20 at 18:00; Stop 06/25/20 at 19:59; Status DC Rocuronium [place] (Zemuron) 50 mg STK-MED ONCE .ROUTE ; Start 06/26/20 at 11:37; Stop 06/26/20 at 11:38; Status DC Cellulose (Surgicel Fibrillar 1x2) 1 each STK-MED ONCE .ROUTE Last administered on 06/26/20at 13:20; Start 06/26/20 at 12:19; Stop 06/26/20 at 12:19; Status DC Bupivacaine HCl (Sensorcaine Mpf 0.5%) 30 ml STK-MED ONCE .ROUTE ; Start 06/26/20 at 12:19; Stop 06/26/20 at 12:19; Status DC Ondansetron HCl (Zofran) 4 mg STK-MED ONCE .ROUTE ; Start 06/26/20 at 13:13; Stop 06/26/20 at 13:13; Status DC Dexamethasone Sodium Phosphate (Decadron) 4 mg STK-MED ONCE .ROUTE ; Start 06/26/20 at 13:13; Stop 06/26/20 at 13:14; Status DC Cellulose (Surgicel Fibrillar 1x2) 1 each STK-MED ONCE .ROUTE Last administered on 06/26/20at 13:22; Start 06/26/20 at 13:25; Stop 06/26/20 at 13:25; Status DC Sevoflurane (Ultane) 30 ml STK-MED ONCE IH ; Start 06/26/20 at 13:37; Stop 06/26/20 at 13:38; Status DC Propofol (Diprivan) 200 mg STK-MED ONCE IV ; Start 06/26/20 at 13:38; Stop 06/26/20 at 13:38; Status DC Ringer's Solution 1,000 ml @ 30 mls/hr Q24H IV Last administered on 06/27/20at 08:39; Start 06/27/20 at 07:00; Stop 06/27/20 at 18:59; Status DC Prochlorperazine Edisylate (Compazine) 5 mg PACU PRN PRN IV NAUSEA, MRX1; Start 06/27/20 at 07:00; Stop 06/28/20 at 06:59; Status DC Propofol (Diprivan) 200 mg STK-MED ONCE IV ; Start 06/27/20 at 09:53; Stop 06/27/20 at 09:54; Status DC Lidocaine HCl (Lidocaine Pf 2% Vial) 5 ml STK-MED ONCE .ROUTE ; Start 06/27/20 at 09:54; Stop 06/27/20 at 09:54; Status DC Lisinopril (Prinivil) 5 mg DAILY PO Last administered on 07/04/20at 09:23; Start 06/29/20 at 09:00; Stop 07/04/20 at 14:46; Status DC Acetaminophen/ Hydrocodone Bitart (Lortab 7.5-325/ 15ml Oral Solution) 10 ml 1X ONCE PEG Last administered on 06/28/20at 12:37; Start 06/28/20 at 12:30; Stop 06/28/20 at 12:31; Status DC Piperacillin Sod/ Tazobactam Sod 3.375 gm/Sodium Chloride 50 ml @ 100 mls/hr Q6HRS IV Last administered on 07/07/20at 06:11; Start 06/29/20 at 10:00; Stop 07/07/20 at 09:51; Status DC Vecuronium [place] (Norcuron Bolus) 10 mg STK-MED ONCE IV ; Start 06/29/20 at 14:31; Stop 06/29/20 at 14:31; Status DC Propofol 100 ml @ 0 mls/hr CONT PRN IV PER PROTOCOL Last administered on 07/02/20at 07:26; Start 06/29/20 at 16:30; Stop 07/08/20 at 12:58; Status DC Vecuronium [place] (Norcuron Bolus) 10 mg 1X ONCE IV Last administered on 06/29/20at 14:31; Start 06/29/20 at 14:31; Stop 06/29/20 at 17:19; Status DC Daptomycin 400 mg/ Sodium Chloride 50 ml @ 100 mls/hr Q24H IV Last administered on 07/04/20at 09:25; Start 06/30/20 at 10:00; Stop 07/05/20 at 08:14; Status DC Famotidine (Pepcid) 20 mg QHS GT Last administered on 07/10/20at 21:18; Start 07/02/20 at 21:00 Haloperidol Lactate (Haldol Inj) 5 mg Q8HRS IVP Last administered on 07/03/20at 06:00; Start 07/02/20 at 14:00; Stop 07/03/20 at 12:40; Status DC Micafungin Sodium 100 mg/Dextrose 100 ml @ 100 mls/hr Q24H IV Last administered on 07/05/20at 08:04; Start 07/03/20 at 09:00; Stop 07/05/20 at 08:14; Status DC Alteplase, Recombinant (Cathflo For Central Catheter Clearance) 1 mg 1X ONCE INT CAT Last administered on 07/03/20at 08:45; Start 07/03/20 at 08:45; Stop 07/03/20 at 08:46; Status DC Haloperidol Lactate (Haldol Inj) 2.5 mg PRN Q6HRS PRN IVP AGITATION; Start 07/03/20 at 12:30; Stop 07/03/20 at 12:40; Status DC Haloperidol Lactate (Haldol Inj) 2.5 mg PRN Q6HRS PRN IVP AGITATION Last administered on 07/04/20at 01:04; Start 07/03/20 at 14:00; Stop 07/04/20 at 08:04; Status DC Haloperidol Lactate (Haldol Inj) 2.5 mg Q8HRS IVP ; Start 07/04/20 at 10:00; Stop 07/04/20 at 08:15; Status DC Haloperidol Lactate (Haldol Inj) 2.5 mg PRN Q8HRS PRN IVP AGITATION; Start 07/04/20 at 08:15; Stop 07/05/20 at 10:35; Status DC Lisinopril (Prinivil) 20 mg BID PO Last administered on 07/10/20at 21:18; Start 07/04/20 at 21:00 Haloperidol (Haldol) 0.5 mg PRN Q8HRS PRN PO AGITATION Last administered on 07/11/20at 01:21; Start 07/05/20 at 10:45 Acetaminophen (Tylenol) 650 mg PRN Q6HRS PRN PO MILD PAIN / TEMP > 100.3'F Last administered on 07/09/20at 21:20; Start 07/06/20 at 13:30 Amoxicillin/ Clavulanate Potassium (Augmentin 875/ 125mg) 1 tab BID PO Last administered on 07/10/20at 21:18; Start 07/07/20 at 21:00 Diphenhydramine HCl (Benadryl Oral Elixir) 25 mg PRN Q6HRS PRN PEG ITCHING Last administered on 07/11/20at 05:46; Start 07/10/20 at 19:15 Lorazepam (Ativan Inj) 1 mg PRN Q6HRS PRN IVP ANXIETY / AGITATION Last administered on 07/11/20at 05:21; Start 07/11/20 at 05:15 Active Scripts Active Reported Acetaminophen-Diphenhyd 500-25 (Acetaminophen/Diphenhydramine) 1 Each Tablet 1 Each PO HS PRN Naproxen 500 Mg Tablet 1 Tab PO BID PRN 30 Days Tramadol Hcl 50 Mg Tablet 50 Mg PO Q4HRS Levothyroxine Sodium 75 Mcg Tablet 1 Tab PO DAILY Adderall 20 Mg Tablet (Dextroamphetamine/Amphetamine) 20 Mg Tablet 1 Tab PO DA ZARIA MDD 1 Tablet(s) 5 Days Prozac (Fluoxetine Hcl) 20 Mg Capsule 1 Cap PO [id number] Vitals/I & O Vital Sign - Last 24 Hours 07/10/20 07/10/20 07/10/20 07/10/20 11:00 12:44 15:00 16:00 Temp 98.9 97.4 98.9 97.4 Pulse 80 77 Resp 16 16 B/P (MAP) 140/69 (92) 138/75 (96) Pulse Ox 96 99 99 99 O2 Delivery Tracheal Collar Tracheal Collar Tracheal Collar Tracheal Collar O2 Flow Rate 8.0 8.0 8.0 8.0 07/10/20 07/10/20 07/10/20 07/10/20 17:10 19:00 20:00 20:00 Temp 98.4 98.4 Pulse 74 76 Resp 22 20 B/P (MAP) 151/84 145/70 (95) Pulse Ox 94 99 O2 Delivery Room Air TRACH SHEILD Trach Collar O2 Flow Rate 8.0 8.0 07/10/20 07/10/20 07/10/20 07/10/20 20:30 20:47 21:18 23:07 Temp 98.1 98.1 Pulse 78 62 Resp 18 18 B/P (MAP) 149/76 125/78 (94) Pulse Ox 99 99 98 O2 Delivery Tracheal Collar Room Air O2 Flow Rate 8.0 8.0 07/11/20 07/11/20 07/11/20 07/11/20 00:44 01:14 03:00 04:33 Temp 97.5 97.5 Pulse 70 Resp 18 18 18 18 B/P (MAP) 117/69 (85) Pulse Ox 98 98 96 96 O2 Flow Rate 8.0 8.0 8.0 07/11/20 07/11/20 07/11/20 05:03 07:00 07:22 Temp 97.8 97.8 Pulse 59 Resp 18 16 B/P (MAP) 122/66 (84) Pulse Ox 96 100 100 O2 Delivery Room Air Tracheal Collar O2 Flow Rate 8.0 8.0 Intake and Output 07/10/20 07/10/20 07/11/20 15:00 23:00 07:00 Intake Total 200 ml 60 ml 840 ml Output Total 150 ml 450 ml 400 ml Balance 50 ml -390 ml 440 ml Justicifation of Admission Dx: Justifications for Admission: Justification of Admission Dx: N/A ARIELA BOTELLO MD Jul 11, 2020 08:24
[2020-07-11] MEDS: LISINOPRIL 20 MG TABLET PO SCH ×2 (08:28→19:57)
[2020-07-11] MEDS: ASPIRIN CHEWABLE 81 MG TABLET. PO SCH (08:28)
[2020-07-11] MEDS: AMOXICILLIN/K CLAV 875/125MG TABLET. PO SCH ×2 (08:28→19:59)
[2020-07-11] MEDS: CARVEDILOL 3.125 MG TABLET. PO SCH ×2 (08:28→16:37)
[2020-07-11] MEDS: AMIODARONE HCL 200 MG TABLET. PO SCH (08:29)
--- NOTE | 2020-07-11 09:05 | PDOC ---
PULMONARY PROGRESS NOTES DATE: 07/11/20 TIME: 09:03 Subjective S/P cardiac arrest 06/17 S/P trach on 06/26 ----- S/P peg 06/27 Sleepy on exam, received ativan at 5am Pt. has been more responsive per Vitals Vital Signs Date Time Temp Pulse Resp B/P (MAP) Pulse Ox O2 Delivery O2 Flow Rate FiO2 07/11/20 08:29 59 122/66 07/11/20 07:22 100 Tracheal Collar 8.0 07/11/20 07:00 97.8 16 97.8 Comments Unable to report review of systems secondary to clinical state General: Alert Lungs: Clear Cardiovascular: S1, S2 Abdomen: Soft, Non-tender Extremities: No Edema Skin: Warm Labs Laboratory Tests Test 07/09/20 18:36 07/10/20 00:53 07/10/20 07:12 07/10/20 11:46 Glucose (Fingerstick) 122 mg/dL (70-99) 123 mg/dL (70-99) 121 mg/dL (70-99) Urine Collection Type U cath Urine Color Red Urine Clarity Turbid Urine pH 8.0 (<5.0-8.0) Urine Specific [place] 1.020 (1.000-1.030) Urine Protein 30 mg/dL (NEG-TRACE) Urine Glucose (UA) Negative mg/dL (NEG) Urine Ketones (Stick) Negative mg/dL (NEG) Urine Blood Large (NEG) Urine Nitrite Negative (NEG) Urine Bilirubin Negative (NEG) Urine Urobilinogen Dipstick 2.0 mg/dL (0.2 mg/dL) Urine Leukocyte Esterase Moderate (NEG) Urine RBC Tntc /HPF (0-2) Urine WBC >40 /HPF (0-4) Urine Transitional Epithelial Cells Occ /LPF Urine Bacteria Many /HPF (0-FEW) Test 07/10/20 12:04 07/11/20 00:19 Glucose (Fingerstick) 123 mg/dL (70-99) 99 mg/dL (70-99) Laboratory Tests Test 07/10/20 11:46 07/10/20 12:04 07/11/20 00:19 Urine Collection Type U cath Urine Color Red Urine Clarity Turbid Urine pH 8.0 (<5.0-8.0) Urine Specific [place] 1.020 (1.000-1.030) Urine Protein 30 mg/dL (NEG-TRACE) Urine Glucose (UA) Negative mg/dL (NEG) Urine Ketones (Stick) Negative mg/dL (NEG) Urine Blood Large (NEG) Urine Nitrite Negative (NEG) Urine Bilirubin Negative (NEG) Urine Urobilinogen Dipstick 2.0 mg/dL (0.2 mg/dL) Urine Leukocyte Esterase Moderate (NEG) Urine RBC Tntc /HPF (0-2) Urine WBC >40 /HPF (0-4) Urine Transitional Epithelial Cells Occ /LPF Urine Bacteria Many /HPF (0-FEW) Glucose (Fingerstick) 123 mg/dL (70-99) 99 mg/dL (70-99) Medications Active Scripts Medications Dose Route/Sig Max Daily Dose Days Date Category Acetaminophen-Diphenhyd 500-25 (Acetaminophen/Diphenhydramine) 1 Each Tablet 1 Each PO HS PRN 06/18/20 Reported Naproxen 500 Mg Tablet 1 Tab PO BID PRN 30 06/18/20 Reported Tramadol Hcl 50 Mg Tablet 50 Mg PO Q4HRS 06/18/20 Reported Levothyroxine Sodium 75 Mcg Tablet 1 Tab PO DAILY 06/18/20 Reported Adderall 20 Mg Tablet (Dextroamphetamine/Amphetamine) 20 Mg Tablet 1 Tab PO DAILY MDD 1 Tablet(s) 5 06/18/20 Reported Prozac (Fluoxetine Hcl) 20 Mg Capsule 1 Cap PO [id number] 06/18/20 Reported Comments CXR IMPRESSION: Left lung base opacities likely consolidative process such as pneumonia. Small left pleural effusion. Impression . IMPRESSION: 1. Acute respiratory failure secondary to [id number]-nhehawrb cardiopulmonary arrest/ anoxic encephalopathy-- now S/P trach -- improving slowly 2. Vtm-ep-yezakuoh ventricular fibrillation and asystole leading to anoxic brain injury. 3. Anoxic encephalopathy--ongoing/unchanged-- slowly 4. COVID neg 5. Morbid obesity. 6. Leukocytosis--improved 7. Lactic acidosis secondary to [id number]-pdgfiesx cardiac arrest. 8. Abnormal x-ray revealing bibasilar atelectasis, infiltrates. 9. Pneumothorax secondary to CPR.resolved 10. Sternal sternal fracture secondary to CPR. 11. Pneumonia positive, gram-negative, gram-positive. 12. UTI Plan . PLAN: Continue supplemental oxygen via trach shield to keep oxygen saturations greater than 92%, currently on 35% Clinically consistent with Anoxic encephalopathy-- improving Trach 06/26/20, PEG on 06/27/20 Follow infectious disease recommendations in regards to antibiotics, currently on Augmentin Follow neurology recs--no new recommendations Follow Cardiology recs-- post cardiac cath 06/25/20-- cath was clean w/ normal filling pressures Continue tube feeding for nutritional support start ambien to help establish sleep cycle, avoid benzo if possible DVT/GI PPX D/W RN and RT Social work for D/C planning --[facility] declined, family would like to give the patient a full 30 days to assess level of recovery before potentially withdrawing care. The patient would not have wanted to live on life support or with a feeding tube for prolonged period of time per family. PT. is FULL CODE Patient is clinically stable from a respiratory standpoint we will see the patient on a as needed basis please call with any questions or concerns thank you ANGELA MORENO MD Jul 11, 2020 09:05
--- NOTE | 2020-07-11 09:37 | PDOC ---
Infectious Disease Note Subjective Subjective does not follow any commands no fevers Tolerating tube feedings well No acute concerns per discussion with RN Vital Sign Vital Signs Vital Signs Date Time Temp Pulse Resp B/P (MAP) Pulse Ox O2 Delivery O2 Flow Rate FiO2 07/11/20 08:29 59 122/66 07/11/20 07:22 100 Tracheal Collar 8.0 07/11/20 07:00 97.8 16 97.8 Physical Exam PHYSICAL EXAM GENERAL: Opens eyes transiently, does not follow any commands, HEENT: Both pupils are round and reacting. No conjunctival lesion. NECK: Supple. Trach present, erythema and drainage present around trach site improving LUNGS: Decreased breath sounds bilaterally. HEART: S1, S2, regular. No gallop or murmur. ABDOMEN: Soft, nontender. No organomegaly.peg tube + fecal tube , Jolly present EXTREMITIES: No edema or cyanosis. toe amputation of the Rt foot,healed scars SKIN: Unremarkable. NEUROLOGICAL: Opens eyes transiently does not follow any commands Labs Lab Laboratory Tests Test 07/10/20 11:46 07/10/20 12:04 07/11/20 00:19 Urine Collection Type U cath Urine Color Red Urine Clarity Turbid Urine pH 8.0 (<5.0-8.0) Urine Specific [place] 1.020 (1.000-1.030) Urine Protein 30 mg/dL (NEG-TRACE) Urine Glucose (UA) Negative mg/dL (NEG) Urine Ketones (Stick) Negative mg/dL (NEG) Urine Blood Large (NEG) Urine Nitrite Negative (NEG) Urine Bilirubin Negative (NEG) Urine Urobilinogen Dipstick 2.0 mg/dL (0.2 mg/dL) Urine Leukocyte Esterase Moderate (NEG) Urine RBC Tntc /HPF (0-2) Urine WBC >40 /HPF (0-4) Urine Transitional Epithelial Cells Occ /LPF Urine Bacteria Many /HPF (0-FEW) Glucose (Fingerstick) 123 mg/dL (70-99) 99 mg/dL (70-99) Micro Microbiology 06/17/20 Blood Culture - Preliminary, Resulted NO GROWTH AFTER 1 DAY Objective Assessment 1. Cardiopulmonary arrest at home. With VT, shock then asystole s/p cardiac cath , normal coronaries Severe NICM Acute systolic CHF: compensated 2. Leukocytosis, likely reactive. resolved 3. Lactic acidosis from #1. 4. Respiratory failure. suspected aspiration; status post trach placement, swab culture from trach site with Filomena albicans 5. Anoxic Encephalopathy 6. Hypertension. 7. Pneumothorax.s/p CTS, 8. Rib fracture and sternal fracture. 9. Anemia 10. S/P Peg tube placement 11. Marijuana use: + UDS on amiodarone Plan Plan of Care Augmentin cont supportive care Overall prognosis poor Discussed with RN d/w d/c alejandro d/c to [facility] POPPY RENAE MD Jul 11, 2020 09:37
--- NOTE | 2020-07-11 09:43 | PDOC ---
Date of Service: DATE: 07/11/20 TIME: 09:41 Subjective: Subjective: present - says plans to give Ativan at night to help her sleep. Objective: Objective: D/w nurse - some residuals - pt scoots down in bed - flushed and gas meds, holding feeds and will recheck in ~1 hour. Vital Signs: Vital Signs Date Time Temp Pulse Resp B/P (MAP) Pulse Ox O2 Delivery O2 Flow Rate FiO2 07/11/20 08:29 59 122/66 07/11/20 07:22 100 Tracheal Collar 8.0 07/11/20 07:00 97.8 16 97.8 Labs: Laboratory Tests Test 07/10/20 11:46 07/10/20 12:04 07/11/20 00:19 Urine Collection Type U cath Urine Color Red Urine Clarity Turbid Urine pH 8.0 Urine Specific [place] 1.020 Urine Protein 30 mg/dL Urine Glucose (UA) Negative mg/dL Urine Ketones (Stick) Negative mg/dL Urine Blood Large Urine Nitrite Negative Urine Bilirubin Negative Urine Urobilinogen Dipstick 2.0 mg/dL Urine Leukocyte Esterase Moderate Urine RBC Tntc /HPF Urine WBC >40 /HPF Urine Transitional Epithelial Cells Occ /LPF Urine Bacteria Many /HPF Glucose (Fingerstick) 123 mg/dL 99 mg/dL URINE CULTURE Final Final No Growth on 07/11/20 at 0801 PE: GEN: NAD LUNGS: trach/collar HEART: RRR ABD: soft, PEG in place NEURO/PSYCH: sleeping A/P: Anoxic encephalopathy s/p trach and PEG -- Monitor residuals, d/w in detail. Justicifation of Admission Dx: Justifications for Admission: Justification of Admission Dx: N/A SHAHBAZ FOSS Jul 11, 2020 09:43
[2020-07-11 11:00] VITALS: BP 118/65
--- NOTE | 2020-07-11 14:28 | NUR ---
SW following for discharge planning. Spoke with RN and reviewed chart. LVM for [facility] with [facility] to see where they are at on reconsidering this patient for admission. SW following.
[2020-07-11 15:00] VITALS: BP_SYST 122; BP_SYST 126; BP_DIAS 103; BP_DIAS 93
[2020-07-11 19:00] VITALS: BP 122/83
[2020-07-11] MEDS: ENOXAPARIN 40 MG/0.4 ML SYRINGE. SQ SCH (19:51)
[2020-07-11] MEDS: ATORVASTATIN CALCIUM 20 MG TABLET PO SCH (19:56)
[2020-07-11] MEDS: FAMOTIDINE 20 MG TABLET. GT SCH (19:56)
[2020-07-11] MEDS ORDERED: ZOLPIDEM 5 MG TABLET. PO SCH (21:00)
[2020-07-11 23:00] VITALS: BP 126/62
[2020-07-12] MEDS: diphenhydrAMINE 50 MG/ML VIAL IVP PRN ×2 (02:24→20:39)
[2020-07-12 03:00] VITALS: BP 122/58
[2020-07-12] MEDS: HALOPERIDOL LACTATE 5 MG/ML VIAL. IVP PRN ×2 (05:45→23:49)
[2020-07-12] MEDS: LEVOTHYROXINE 75 MCG TABLET PO SCH (05:45)
[2020-07-12 07:00] VITALS: BP 106/75
[2020-07-12] MEDS: IPRATRPIUM/ALBUTEROL 0.5/2.5MG 3 ML NEBU. NEB SCH ×4 (07:29→19:57)
--- NOTE | 2020-07-12 09:15 | PDOC ---
PROGRESS NOTES Date of Service: DATE: 07/12/20 TIME: 09:15 Chief Complaint Chief Complaint POST covid cardiomyopathy acute systolic CHF Severe NICM: EF 25%. No significant CAD per [facility] anoxic brain injury Cardiac arrest with resuscitation and probable pneumonia, sternal fracture and pneumothorax secondary to CPR, leukocytosis, electrolyte disturbance, hypokalemia, lactic acidosis, elevated troponin. 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 No significant change overnight, still no purposeful movements. Sounds as though family still plans to hold off on any change in CODE STATUS or goals of care until at least 30 days after admission date. did show me some video of patient smiling and having meaningful exchange with a family friend today. 07/07. Transfer out of ICU to the medical floors. Discussed with , he feels that music is helping patient. She will occasionally check in with eyes, but no purposeful movements. Has been mentioned trying to give 30 days for admission to show any signs of meaningful improvement. At which time decision will be made about hospice in future goals of care. 07/06, will transfer to floor, no tele, off vent now for some time. discussed with , she does seem improved, she had a tiny smile to some music earlier, still not following commands or any purposeful response 07/05, about the same, discussed my previous thoughts again with and son, not following commands, movement is seeming to be mostly reflexive. they still want to cont iwth the 30 days plan to give her a chance to improve. I discussed possible transition to hospice, they want to wait until that time. 07/04-, minmal change, some relfexive movements, had a video of her withdrawing to light touch to face, soem work with PT, not following commands as directed I discussed poor prognosis with at length, that as days go by, her chances for meaningful recovery continue to dim. I discussed consideration of hospice care. 07/03/2020, discussed plan with family at length yesterday Patient seen and examined in the ICU plan LTAC start PT and OT moving around a lot She is still not very responsive but at the same time kind of agitated Vitals Vitals Vital Signs Date Time Temp Pulse Resp B/P (MAP) Pulse Ox O2 Delivery O2 Flow Rate FiO2 07/12/20 07:30 97 Tracheal Collar 8.0 07/12/20 07:00 98.3 99 18 106/75 (85) 98.3 Physical Exam Physical Exam GENERAL: Opens eyes transiently, does not follow any commands, Moving arms and legs, not thrusting tongue HEENT: Both pupils are round and reacting. No conjunctival lesion. NECK: Supple. Trach present, erythema and drainage present around trach site improving LUNGS: Decreased breath sounds bilaterally. HEART: S1, S2, regular. No gallop or murmur. ABDOMEN: Soft, nontender. No organomegaly.peg tube + fecal tube , Jolly present EXTREMITIES: No edema or cyanosis. toe amputation of the Rt foot,healed scars SKIN: Unremarkable. NEUROLOGICAL: Opens eyes transiently does not follow any commands General: No acute distress Heart: Regular rate, Normal S1, Normal S2 Lungs: Clear Abdomen: Normal bowel sounds, Soft, No tenderness, No masses Extremities: No cyanosis Skin: No rashes, No breakdown Labs LABS Procedure Result URINE CULTURE Final Final No Growth on 07/11/20 at 0801 Testing Performed by: [address] [id number] For Inquires, the Physician may contact the Microbiology department at [phone] Unless otherwise specified, Testing Performed by: [address] [id number] For Inquires, the Physician may contact the Microbiology department at [phone] Laboratory Tests Test 07/11/20 12:21 07/11/20 18:51 07/11/20 23:53 Glucose (Fingerstick) 98 mg/dL (70-99) 105 mg/dL (70-99) 96 mg/dL (70-99) Assessment and Plan Assessmemt and Plan Problems Medical Problems: (1) Cardiac arrest Status: Acute (2) Fracture of ribs, multiple Status: Acute (3) Hyperglycemia Status: Acute (4) Pneumonia Status: Acute (5) Pneumothorax, right Status: Acute (6) Sternal fracture Status: Acute (7) VF (ventricular fibrillation) Status: Acute Comment Review of Relevant I have reviewed the following items afua (where applicable) has been applied. Labs Laboratory Tests Test 07/10/20 11:46 07/10/20 12:04 07/11/20 00:19 07/11/20 12:21 Urine Collection Type U cath Urine Color Red Urine Clarity Turbid Urine pH 8.0 (<5.0-8.0) Urine Specific Benedict 1.020 (1.000-1.030) Urine Protein 30 mg/dL (NEG-TRACE) Urine Glucose (UA) Negative mg/dL (NEG) Urine Ketones (Stick) Negative mg/dL (NEG) Urine Blood Large (NEG) Urine Nitrite Negative (NEG) Urine Bilirubin Negative (NEG) Urine Urobilinogen Dipstick 2.0 mg/dL (0.2 mg/dL) Urine Leukocyte Esterase Moderate (NEG) Urine RBC Tntc /HPF (0-2) Urine WBC >40 /HPF (0-4) Urine Transitional Epithelial Cells Occ /LPF Urine Bacteria Many /HPF (0-FEW) Glucose (Fingerstick) 123 mg/dL (70-99) 99 mg/dL (70-99) 98 mg/dL (70-99) Test 07/11/20 18:51 07/11/20 23:53 Glucose (Fingerstick) 105 mg/dL (70-99) 96 mg/dL (70-99) Laboratory Tests Test 07/11/20 12:21 07/11/20 18:51 07/11/20 23:53 Glucose (Fingerstick) 98 mg/dL (70-99) 105 mg/dL (70-99) 96 mg/dL (70-99) Microbiology 07/10/20 Urine Culture - Final, Complete 06/30/20 Gram Stain - Final, Complete 06/30/20 Aerobic and Anaerobic Culture - Final, Complete 06/17/20 Blood Culture - Final, Complete NO GROWTH AFTER 5 DAYS Medications Current Medications Amiodarone HCl 150 mg/Dextrose 103 ml @ 618 mls/hr 1X ONCE IV Last administ ered on 06/17/20at 07:00; Start 06/17/20 at 07:00; Stop 06/17/20 at 07:09; Status DC Amiodarone HCl 450 mg/Dextrose 259 ml @ 33 mls/hr 1X ONCE IV ; Start 06/17/20 at 07:00; Stop 06/17/20 at 14:50; Status DC Sodium Chloride 1,000 ml @ 1,000 mls/hr 1X ONCE IV Last administered on 06/17/20at 08:11; Start 06/17/20 at 07:15; Stop 06/17/20 at 08:14; Status DC Midazolam HCl 100 ml @ 0 mls/hr 1X ONCE IV ; Start 06/17/20 at 07:15; Stop 06/17/20 at 07:16; Status DC Midazolam HCl (Versed) 5 mg STK-MED ONCE .ROUTE ; Start 06/17/20 at 07:17; Stop 06/17/20 at 07:17; Status DC Iohexol (Omnipaque 300 Mg/ml) 75 ml 1X ONCE IV Last administered on 06/17/20at 08:17; Start 06/17/20 at 08:15; Stop 06/17/20 at 08:16; Status DC Iohexol (Omnipaque 350 Mg/ml) 100 ml 1X ONCE IV Last administered on 06/17/20at 08:17; Start 06/17/20 at 08:15; Stop 06/17/20 at 08:16; Status DC Info (CONTRAST GIVEN -- Rx MONITORING) 1 each PRN DAILY PRN MC SEE COMMENTS; Start 06/17/20 at 08:15; Stop 06/19/20 at 08:14; Status DC Sodium Chloride 1,000 ml @ 1,000 mls/hr 1X ONCE IV Last administered on 06/17/20at 08:25; Start 06/17/20 at 08:15; Stop 06/17/20 at 09:14; Status DC Potassium Chloride/Water 100 ml @ 50 mls/hr 1X ONCE IV Last administered on 06/17/20at 10:16; Start 06/17/20 at 09:00; Stop 06/17/20 at 10:59; Status DC Piperacillin Sod/ Tazobactam Sod (Zosyn Per Pharmacy) 1 each PRN DAILY PRN MC SEE COMMENTS; Start 06/17/20 at 08:45; Stop 06/27/20 at 11:36; Status DC Piperacillin Sod/ Tazobactam Sod 4.5 gm/Sodium Chloride 100 ml @ 200 mls/hr 1X ONCE IV Last administered on 06/17/20at 10:15; Start 06/17/20 at 08:45; Stop 06/17/20 at 09:14; Status DC Sodium Chloride 1,000 ml @ 125 mls/hr Q8H IV Last administered on 06/17/20at 23:39; Start 06/17/20 at 09:00; Stop 06/18/20 at 08:59; Status DC Propofol (Diprivan) 200 mg 1X ONCE IV Last administered on 06/17/20at 09:00; Start 06/17/20 at 09:00; Stop 06/17/20 at 09:01; Status DC Propofol 100 ml @ As Directed STK-MED ONCE IV ; Start 06/17/20 at 09:05; Stop 06/17/20 at 09:05; Status DC Lidocaine HCl (Lidocaine 1% 20ml Vial) 20 ml 1X ONCE INJ Last administered on 06/17/20at 09:15; Start 06/17/20 at 09:15; Stop 06/17/20 at 09:20; Status DC Lidocaine HCl (Xylocaine-Mpf 1% 5ml Vial) 5 ml STK-MED ONCE .ROUTE ; Start 06/17/20 at 09:26; Stop 06/17/20 at 09:26; Status DC Sodium Chloride 1,000 ml @ 1,000 mls/hr 1X ONCE IV Last administered on 06/17/20at 10:15; Start 06/17/20 at 10:15; Stop 06/17/20 at 11:14; Status DC Propofol 100 ml @ 3.819 mls/ hr CONT PRN IV PER PROTOCOL Last administered on 06/25/20at 06:12; Start 06/17/20 at 10:45; Stop 06/29/20 at 11:47; Status DC Fentanyl Citrate (Fentanyl 2ml Vial) 100 mcg 1X ONCE IV ; Start 06/17/20 at 12:00; Stop 06/17/20 at 12:39; Status DC Midazolam HCl (Versed) 2 mg 1X ONCE IV ; Start 06/17/20 at 12:00; Stop 06/17/20 at 12:39; Status DC Magnesium Sulfate/ Dextrose 100 ml @ 100 mls/hr 1X ONCE IV Last administered on 06/17/20at 12:22; Start 06/17/20 at 12:00; Stop 06/17/20 at 12:39; Status DC Buspirone HCl (Buspar) 30 mg Q8H NG Last administered on 06/17/20at 12:31; Start 06/17/20 at 12:00; Stop 06/17/20 at 12:39; Status DC Glycerin/ Hypromellose/ Polyethylene (Artificial Tears) 1 drop Q6HRS OU ; Start 06/17/20 at 12:00; Stop 06/17/20 at 12:39; Status DC Glycerin/ Hypromellose/ Polyethylene (Artificial Tears) 1 drop PRN Q15MIN PRN OU DRY EYE; Start 06/17/20 at 12:00; Stop 06/17/20 at 12:39; Status DC Heparin Sodium (Porcine) (Heparin Sodium) 5,000 unit BID SQ ; Start 06/17/20 at 21:00; Stop 06/17/20 at 12:39; Status DC Pantoprazole Sodium (PROTONIX VIAL for IV PUSH) 40 mg DAILY IVP ; Start 06/18/20 at 09:00; Stop 06/17/20 at 12:39; Status DC Fentanyl Citrate 30 ml @ 0 mls/hr CONT PRN IV PER PROTOCOL.; Start 06/17/20 at 12:00; Stop 06/17/20 at 12:39; Status DC Propofol 100 ml @ 0 mls/hr CONT PRN IV PER PROTOCOL.; Start 06/17/20 at 12:00; Stop 06/17/20 at 12:39; Status DC Midazolam HCl 100 ml @ 0 mls/hr CONT PRN IV PER PROTOCOL; Start 06/17/20 at 12:00; Stop 06/17/20 at 12:39; Status DC Vecuronium Wildwood (Norcuron Bolus) 10 mg PRN Q1HR PRN IV SHIVERING; Start 06/17/20 at 12:00; Stop 06/17/20 at 12:39; Status DC Piperacillin Sod/ Tazobactam Sod 4.5 gm/Sodium Chloride 100 ml @ 200 mls/hr 1X ONCE IV ; Start 06/17/20 at 12:15; Stop 06/17/20 at 12:44; Status Cancel Midazolam HCl (Versed) 5 mg Q1HR PRN IV SEDATION Last administered on 06/29/20at 13:48; Start 06/17/20 at 12:45; Stop 07/08/20 at 12:59; Status DC Fentanyl Citrate (Fentanyl 2ml Vial) 100 mcg Q1HR IVP Last administered on 06/17/20at 18:55; Start 06/17/20 at 13:00; Stop 06/17/20 at 23:41; Status DC Piperacillin Sod/ Tazobactam Sod 3.375 gm/Sodium Chloride 50 ml @ 100 mls/hr Q6H IV Last administered on 06/27/20at 05:31; Start 06/17/20 at 16:00; Stop 06/27/20 at 11:30; Status DC Potassium Bicarbonate (Potassium Effervescent Tablet) 40 meq 1X ONCE NG Last administered on 06/18/20at 10:00; Start 06/18/20 at 09:45; Stop 06/18/20 at 09:48; Status DC Albuterol/ Ipratropium (Duoneb) 3 ml RTQID NEB Last administered on 07/12/20at 07:29; Start 06/18/20 at 20:00 Famotidine (Pepcid Vial) 20 mg BID IVP Last administered on 07/02/20at 08:05; Start 06/18/20 at 21:00; Stop 07/02/20 at 10:23; Status DC Enoxaparin Sodium (Lovenox 40mg Syringe) 40 mg Q24H SQ Last administered on 07/11/20at 19:51; Start 06/18/20 at 21:00 Levothyroxine Sodium (Synthroid) 75 mcg DAILY06 PO Last administered on 07/12/20at 05:45; Start 06/18/20 at 21:00 Fentanyl Citrate 30 ml @ 0 mls/hr CONT PRN IV SEE PROTOCOL Last administered on 06/28/20at 04:56; Start 06/18/20 at 20:15; Stop 06/29/20 at 11:47; Status DC Carvedilol (Coreg) 3.125 mg BIDWMEALS PO Last administered on 07/11/20at 16:37; Start 06/19/20 at 17:00 Atorvastatin Calcium (Lipitor) 20 mg QHS PO Last administered on 07/11/20at 19:56; Start 06/19/20 at 21:00 Aspirin (Aspirin Chewable) 81 mg DAILYWBKFT PO Last administered on 07/11/20at 08:28; Start 06/20/20 at 08:00 Aspirin (Aspirin Chewable) 81 mg 1X ONCE PO Last administered on 06/19/20at 15:57; Start 06/19/20 at 15:30; Stop 06/19/20 at 15:37; Status DC Potassium Chloride/Water 100 ml @ 100 mls/hr 1X ONCE IV Last administered on 06/19/20at 15:57; Start 06/19/20 at 15:30; Stop 06/19/20 at 16:29; Status DC Amiodarone HCl (Cordarone) 400 mg DAILY PO Last administered on 07/11/20at 08:29; Start 06/20/20 at 09:00 Furosemide (Lasix) 40 mg 1X ONCE IVP Last administered on 06/20/20at 14:38; Start 06/20/20 at 13:30; Stop 06/20/20 at 13:31; Status DC Potassium Chloride/Water 100 ml @ 100 mls/hr 1X ONCE IV Last administered on 06/20/20at 14:39; Start 06/20/20 at 13:30; Stop 06/20/20 at 14:29; Status DC Dexmedetomidine HCl 400 mcg/ Sodium Chloride 100 ml @ 0 mls/hr CONT PRN IV PER PROTOCOL Last administered on 06/29/20at 06:11; Start 06/21/20 at 10:45; Stop 06/29/20 at 11:47; Status DC Sodium Chloride 500 ml @ 500 mls/hr 1X PRN PRN IV SEE COMMENTS; Start 06/21/20 at 10:45 Atropine Sulfate (ATROPINE 0.5mg SYRINGE) 0.5 mg PRN Q5MIN PRN IV SEE COMMENTS; Start 06/21/20 at 10:45; Stop 06/29/20 at 11:47; Status DC Fentanyl Citrate (Fentanyl 2ml Vial) 50 mcg PRN Q2HR PRN IVP PAIN Last adm inistered on 07/11/20at 22:44; Start 06/23/20 at 16:45 Midazolam HCl 100 ml @ 0 mls/hr CONT PRN IV SEE PROTOCOL Last administered on 06/28/20at 03:00; Start 06/25/20 at 11:45; Stop 06/29/20 at 11:47; Status DC Lidocaine HCl (Xylocaine-Mpf 1% 2ml Vial) 2 ml STK-MED ONCE .ROUTE ; Start 06/25/20 at 14:21; Stop 06/25/20 at 14:21; Status DC Iohexol (Omnipaque 300 Mg/ml) 100 ml STK-MED ONCE .ROUTE ; Start 06/25/20 at 14:21; Stop 06/25/20 at 14:21; Status DC Heparin Sodium/ Sodium Chloride 1,000 ml @ As Directed STK-MED ONCE .ROUTE ; Start 06/25/20 at 14:21; Stop 06/25/20 at 14:21; Status DC Heparin Sodium (Porcine) (Heparin Sodium) 10,000 unit STK-MED ONCE .ROUTE ; Start 06/25/20 at 14:31; Stop 06/25/20 at 14:31; Status DC Verapamil HCl (Verapamil) 5 mg STK-MED ONCE .ROUTE ; Start 06/25/20 at 14:31; Stop 06/25/20 at 14:31; Status DC Nitroglycerin (Nitroglycerin) 200 mcg STK-MED ONCE .ROUTE ; Start 06/25/20 at 14:31; Stop 06/25/20 at 14:31; Status DC Nitroglycerin (Nitroglycerin) 200 mcg 1X ONCE IART Last administered on 06/25/20at 15:09; Start 06/25/20 at 15:15; Stop 06/25/20 at 15:16; Status DC Verapamil HCl (Verapamil) 2.5 mg 1X ONCE IART Last administered on 06/25/20at 15:09; Start 06/25/20 at 15:15; Stop 06/25/20 at 15:16; Status DC Heparin Sodium (Porcine) (Heparin Sodium) 2,500 unit 1X ONCE IART Last administered on 06/25/20at 15:09; Start 06/25/20 at 15:15; Stop 06/25/20 at 15:16; Status DC Heparin Sodium/ Sodium Chloride (HEPARIN for ARTERIAL LINE FLUSH) 1,000 unit 1X ONCE IART Last administered on 06/25/20at 15:09; Start 06/25/20 at 15:15; Stop 06/25/20 at 15:16; Status DC Iohexol (Omnipaque 300 Mg/ml) 30 ml 1X ONCE IART Last administered on 06/25/20at 15:09; Start 06/25/20 at 15:15; Stop 06/25/20 at 15:16; Status DC Lidocaine HCl (Xylocaine-Mpf 1% 2ml Vial) 2 ml 1X ONCE INJ Last administered on 06/25/20at 15:09; Start 06/25/20 at 15:15; Stop 06/25/20 at 15:16; Status DC Amino Acids/ Glycerin/ Electrolytes 1,000 ml @ 80 mls/hr [id number] IV Last administered on 06/27/20at 20:50; Start 06/25/20 at 17:30; Stop 06/28/20 at 11:35; Status DC Potassium Chloride/Water 100 ml @ 100 mls/hr Q1H IV Last administered on 06/25/20at 18:46; Start 06/25/20 at 18:00; Stop 06/25/20 at 19:59; Status DC Rocuronium Wildwood (Zemuron) 50 mg STK-MED ONCE .ROUTE ; Start 06/26/20 at 11:37; Stop 06/26/20 at 11:38; Status DC Cellulose (Surgicel Fibrillar 1x2) 1 each STK-MED ONCE .ROUTE Last administered on 06/26/20at 13:20; Start 06/26/20 at 12:19; Stop 06/26/20 at 12:19; Status DC Bupivacaine HCl (Sensorcaine Mpf 0.5%) 30 ml STK-MED ONCE .ROUTE ; Start 06/26/20 at 12:19; Stop 06/26/20 at 12:19; Status DC Ondansetron HCl (Zofran) 4 mg STK-MED ONCE .ROUTE ; Start 06/26/20 at 13:13; Stop 06/26/20 at 13:13; Status DC Dexamethasone Sodium Phosphate (Decadron) 4 mg STK-MED ONCE .ROUTE ; Start 06/26/20 at 13:13; Stop 06/26/20 at 13:14; Status DC Cellulose (Surgicel Fibrillar 1x2) 1 each STK-MED ONCE .ROUTE Last administered on 06/26/20at 13:22; Start 06/26/20 at 13:25; Stop 06/26/20 at 13:25; Status DC Sevoflurane (Ultane) 30 ml STK-MED ONCE IH ; Start 06/26/20 at 13:37; Stop 06/26/20 at 13:38; Status DC Propofol (Diprivan) 200 mg STK-MED ONCE IV ; Start 06/26/20 at 13:38; Stop 06/26/20 at 13:38; Status DC Ringer's Solution 1,000 ml @ 30 mls/hr Q24H IV Last administered on 06/27/20at 08:39; Start 06/27/20 at 07:00; Stop 06/27/20 at 18:59; Status DC Prochlorperazine Edisylate (Compazine) 5 mg PACU PRN PRN IV NAUSEA, MRX1; Start 06/27/20 at 07:00; Stop 06/28/20 at 06:59; Status DC Propofol (Diprivan) 200 mg STK-MED ONCE IV ; Start 06/27/20 at 09:53; Stop 06/27/20 at 09:54; Status DC Lidocaine HCl (Lidocaine Pf 2% Vial) 5 ml STK-MED ONCE .ROUTE ; Start 06/27/20 at 09:54; Stop 06/27/20 at 09:54; Status DC Lisinopril (Prinivil) 5 mg DAILY PO Last administered on 07/04/20at 09:23; Start 06/29/20 at 09:00; Stop 07/04/20 at 14:46; Status DC Acetaminophen/ Hydrocodone Bitart (Lortab 7.5-325/ 15ml Oral Solution) 10 ml 1X ONCE PEG Last administered on 06/28/20at 12:37; Start 06/28/20 at 12:30; Stop 06/28/20 at 12:31; Status DC Piperacillin Sod/ Tazobactam Sod 3.375 gm/Sodium Chloride 50 ml @ 100 mls/hr Q6HRS IV Last administered on 07/07/20at 06:11; Start 06/29/20 at 10:00; Stop 07/07/20 at 09:51; Status DC Vecuronium [place]wood (Norcuron Bolus) 10 mg STK-MED ONCE IV ; Start 06/29/20 at 14:31; Stop 06/29/20 at 14:31; Status DC Propofol 100 ml @ 0 mls/hr CONT PRN IV PER PROTOCOL Last administered on 06/15 02/02at 07:26; Start 06/29/20 at 16:30; Stop 07/08/20 at 12:58; Status DC Vecuronium [place]wood (Norcuron Bolus) 10 mg 1X ONCE IV Last administered on 06/29/20at 14:31; Start 06/29/20 at 14:31; Stop 06/29/20 at 17:19; Status DC Daptomycin 400 mg/ Sodium Chloride 50 ml @ 100 mls/hr Q24H IV Last administered on 07/04/20at 09:25; Start 06/30/20 at 10:00; Stop 07/05/20 at 08:14; Status DC Famotidine (Pepcid) 20 mg QHS GT Last administered on 07/11/20at 19:56; Start 07/02/20 at 21:00 Haloperidol Lactate (Haldol Inj) 5 mg Q8HRS IVP Last administered on 07/03/20at 06:00; Start 07/02/20 at 14:00; Stop 07/03/20 at 12:40; Status DC Micafungin Sodium 100 mg/Dextrose 100 ml @ 100 mls/hr Q24H IV Last administered on 07/05/20at 08:04; Start 07/03/20 at 09:00; Stop 07/05/20 at 08:14; Status DC Alteplase, Recombinant (Cathflo For Central Catheter Clearance) 1 mg 1X ONCE INT CAT Last administered on 07/03/20at 08:45; Start 07/03/20 at 08:45; Stop 07/03/20 at 08:46; Status DC Haloperidol Lactate (Haldol Inj) 2.5 mg PRN Q6HRS PRN IVP AGITATION; Start 07/03/20 at 12:30; Stop 07/03/20 at 12:40; Status DC Haloperidol Lactate (Haldol Inj) 2.5 mg PRN Q6HRS PRN IVP AGITATION Last administered on 07/04/20at 01:04; Start 07/03/20 at 14:00; Stop 07/04/20 at 08:04; Status DC Haloperidol Lactate (Haldol Inj) 2.5 mg Q8HRS IVP ; Start 07/04/20 at 10:00; Stop 07/04/20 at 08:15; Status DC Haloperidol Lactate (Haldol Inj) 2.5 mg PRN Q8HRS PRN IVP AGITATION; Start 07/04/20 at 08:15; Stop 07/05/20 at 10:35; Status DC Lisinopril (Prinivil) 20 mg BID PO Last administered on 07/11/20at 19:57; Start 07/04/20 at 21:00 Haloperidol (Haldol) 0.5 mg PRN Q8HRS PRN PO AGITATION Last administered on 07/11/20at 16:37; Start 07/05/20 at 10:45 Acetaminophen (Tylenol) 650 mg PRN Q6HRS PRN PO MILD PAIN / TEMP > 100.3'F Last administered on 07/09/20at 21:20; Start 07/06/20 at 13:30 Amoxicillin/ Clavulanate Potassium (Augmentin 875/ 125mg) 1 tab BID PO Last administered on 07/11/20at 19:59; Start 07/07/20 at 21:00 Diphenhydramine HCl (Benadryl Oral Elixir) 25 mg PRN Q6HRS PRN PEG ITCHING Last administered on 07/11/20at 19:52; Start 07/10/20 at 19:15 Lorazepam (Ativan Inj) 1 mg PRN Q6HRS PRN IVP ANXIETY / AGITATION Last administered on 07/11/20at 05:21; Start 07/11/20 at 05:15; Stop 07/11/20 at 09:07; Status DC Zolpidem Tartrate (Ambien) 2.5 mg HS PO Last administered on 07/11/20at 19:52; Start 07/11/20 at 21:00 Diphenhydramine HCl (Benadryl) 50 mg PRN Q6HRS PRN IVP itching/insomina Last administered on 07/12/20at 02:24; Start 07/12/20 at 01:00 Haloperidol Lactate (Haldol Inj) 5 mg PRN Q6HRS PRN IVP AGITATION Last administered on 07/12/20at 05:45; Start 07/12/20 at 01:00 Active Scripts Active Reported Acetaminophen-Diphenhyd 500-25 (Acetaminophen/Diphenhydramine) 1 Each Tablet 1 Each PO HS PRN Naproxen 500 Mg Tablet 1 Tab PO BID PRN 30 Days Tramadol Hcl 50 Mg Tablet 50 Mg PO Q4HRS Levothyroxine Sodium 75 Mcg Tablet 1 Tab PO DAILY Adderall 20 Mg Tablet (Dextroamphetamine/Amphetamine) 20 Mg Tablet 1 Tab PO DAILY MDD 1 Tablet(s) 5 Days Prozac (Fluoxetine Hcl) 20 Mg Capsule 1 Cap PO [id number] Vitals/I & O Vital Sign - Last 24 Hours 07/11/20 07/11/20 07/11/20 07/11/20 11:00 11:20 15:00 15:00 Temp 96.8 97.2 96.8 97.2 Pulse 63 81 Resp 18 18 B/P (MAP) 118/65 (82) 126/93 (104) 122/103 (109) Pulse Ox 98 98 97 O2 Delivery Room Air Tracheal Collar Room Air O2 Flow Rate 8.0 07/11/20 07/11/20 07/11/20 07/11/20 15:23 16:37 19:00 19:51 Temp 98.2 98.2 Pulse 81 95 Resp 23 18 B/P (MAP) 126/93 122/83 (96) Pulse Ox 98 96 98 O2 Delivery Tracheal Collar Tracheal Collar O2 Flow Rate 8.0 8.0 07/11/20 07/11/20 07/11/20 07/11/20 19:54 19:57 20:00 20:21 Pulse 80 Resp 18 B/P (MAP) 130/87 Pulse Ox 97 97 O2 Delivery Tracheal Collar Trach Collar O2 Flow Rate 8.0 8.0 8.0 07/11/20 07/11/20 07/11/20 07/12/20 22:44 23:00 23:20 03:00 Temp 98.8 98.6 98.8 98.6 Pulse 95 79 Resp 18 22 18 B/P (MAP) 126/62 (83) 122/58 (79) Pulse Ox 97 100 97 97 O2 Delivery Tracheal Collar Tracheal Collar O2 Flow Rate 8.0 8.0 07/12/20 07/12/20 07:00 07:30 Temp 98.3 98.3 Pulse 99 Resp 18 B/P (MAP) 106/75 (85) Pulse Ox 97 97 O2 Delivery Tracheal Collar Tracheal Collar O2 Flow Rate 8.0 Intake and Output 07/11/20 07/11/20 07/12/20 15:00 23:00 07:00 Intake Total 100 ml 100 ml 200 ml Balance 100 ml 100 ml 200 ml Justicifation of Admission Dx: Justifications for Admission: Justification of Admission Dx: N/A ARIELA BOTELLO MD Jul 12, 2020 09:15
--- NOTE | 2020-07-12 09:27 | PDOC ---
Infectious Disease Note Subjective Subjective does not follow any commands no fevers Tolerating tube feedings well No acute concerns per discussion with RN Vital Sign Vital Signs Vital Signs Date Time Temp Pulse Resp B/P (MAP) Pulse Ox O2 Delivery O2 Flow Rate FiO2 07/12/20 07:30 97 Tracheal Collar 8.0 07/12/20 07:00 98.3 99 18 106/75 (85) 98.3 Physical Exam PHYSICAL EXAM GENERAL: Opens eyes transiently, does not follow any commands, HEENT: Both pupils are round and reacting. No conjunctival lesion. NECK: Supple. Trach present, erythema and drainage present around trach site improving LUNGS: Decreased breath sounds bilaterally. HEART: S1, S2, regular. No gallop or murmur. ABDOMEN: Soft, nontender. No organomegaly.peg tube + fecal tube , Jolly present EXTREMITIES: No edema or cyanosis. toe amputation of the Rt foot,healed scars SKIN: Unremarkable. NEUROLOGICAL: Opens eyes transiently does not follow any commands Labs Lab Laboratory Tests Test 07/11/20 12:21 07/11/20 18:51 07/11/20 23:53 Glucose (Fingerstick) 98 mg/dL (70-99) 105 mg/dL (70-99) 96 mg/dL (70-99) Micro Microbiology 06/17/20 Blood Culture - Preliminary, Resulted NO GROWTH AFTER 1 DAY Objective Assessment 1. Cardiopulmonary arrest at home. With VT, shock then asystole s/p cardiac cath , normal coronaries Severe NICM Acute systolic CHF: compensated 2. Leukocytosis, likely reactive. resolved 3. Lactic acidosis from #1. 4. Respiratory failure. suspected aspiration; status post trach placement, swab culture from trach site with Filomena albicans 5. Anoxic Encephalopathy 6. Hypertension. 7. Pneumothorax.s/p CTS, 8. Rib fracture and sternal fracture. 9. Anemia 10. S/P Peg tube placement 11. Marijuana use: + UDS on amiodarone Plan Plan of Care Augmentin cont supportive care Overall prognosis poor Discussed with RN d/w d/c alejandro d/c to [facility] POPPY RENAE MD Jul 12, 2020 09:27
--- NOTE | 2020-07-12 09:56 | PDOC ---
Date of Service: DATE: 07/12/20 TIME: 09:55 Objective: Objective: D/w nurse - pretty consistently has ~100cc residual - thinks related to scooting down in bed - no vomiting. Vital Signs: Vital Signs Date Time Temp Pulse Resp B/P (MAP) Pulse Ox O2 Delivery O2 Flow Rate FiO2 07/12/20 07:30 97 Tracheal Collar 8.0 07/12/20 07:00 98.3 99 18 106/75 (85) 98.3 Labs: Laboratory Tests Test 07/11/20 12:21 07/11/20 18:51 07/11/20 23:53 Glucose (Fingerstick) 98 mg/dL (70-99) 105 mg/dL (70-99) 96 mg/dL (70-99) PE: GEN: NAD - family present, pt squirming in bed LUNGS: trach collar ABD: PEG in place, abd soft, non-distended NEURO/PSYCH: awake A/P: Anoxic encephalopathy s/p trach and PEG -- Monitor. Justicifation of Admission Dx: Justifications for Admission: Justification of Admission Dx: N/A SHAHBAZ FOSS Jul 12, 2020 09:56
--- NOTE | 2020-07-12 09:59 | PDOC ---
PULMONARY PROGRESS NOTES DATE: 07/12/20 TIME: 09:58 Subjective S/P cardiac arrest 06/17 S/P trach on 06/26 ----- S/P peg 06/27 restless today, not following commands Vitals Vital Signs Date Time Temp Pulse Resp B/P (MAP) Pulse Ox O2 Delivery O2 Flow Rate FiO2 07/12/20 07:30 97 Tracheal Collar 8.0 07/12/20 07:00 98.3 99 18 106/75 (85) 98.3 Comments Unable to report review of systems secondary to clinical state Lungs: Clear Cardiovascular: S1, S2 Abdomen: Soft, Non-tender Extremities: No Edema Skin: Warm Labs Laboratory Tests Test 07/10/20 11:46 07/10/20 12:04 07/11/20 00:19 07/11/20 12:21 Urine Collection Type U cath Urine Color Red Urine Clarity Turbid Urine pH 8.0 (<5.0-8.0) Urine Specific [place] 1.020 (1.000-1.030) Urine Protein 30 mg/dL (NEG-TRACE) Urine Glucose (UA) Negative mg/dL (NEG) Urine Ketones (Stick) Negative mg/dL (NEG) Urine Blood Large (NEG) Urine Nitrite Negative (NEG) Urine Bilirubin Negative (NEG) Urine Urobilinogen Dipstick 2.0 mg/dL (0.2 mg/dL) Urine Leukocyte Esterase Moderate (NEG) Urine RBC Tntc /HPF (0-2) Urine WBC >40 /HPF (0-4) Urine Transitional Epithelial Cells Occ /LPF Urine Bacteria Many /HPF (0-FEW) Glucose (Fingerstick) 123 mg/dL (70-99) 99 mg/dL (70-99) 98 mg/dL (70-99) Test 07/11/20 18:51 07/11/20 23:53 Glucose (Fingerstick) 105 mg/dL (70-99) 96 mg/dL (70-99) Laboratory Tests Test 07/11/20 12:21 07/11/20 18:51 07/11/20 23:53 Glucose (Fingerstick) 98 mg/dL (70-99) 105 mg/dL (70-99) 96 mg/dL (70-99) Medications Active Scripts Medications Dose Route/Sig Max Daily Dose Days Date Category Acetaminophen-Diphenhyd 500-25 (Acetaminophen/Diphenhydramine) 1 Each Tablet 1 Each PO HS PRN 06/18/20 Reported Naproxen 500 Mg Tablet 1 Tab PO BID PRN 30 06/18/20 Reported Tramadol Hcl 50 Mg Tablet 50 Mg PO Q4HRS 06/18/20 Reported Levothyroxine Sodium 75 Mcg Tablet 1 Tab PO DAILY 06/18/20 Reported Adderall 20 Mg Tablet (Dextroamphetamine/Amphetamine) 20 Mg Tablet 1 Tab PO DAILY MDD 1 Tablet(s) 5 06/18/20 Reported Prozac (Fluoxetine Hcl) 20 Mg Capsule 1 Cap PO DAILYWBKFT 06/18/20 Reported Comments CXR IMPRESSION: Left lung base opacities likely consolidative process such as pneumonia. Small left pleural effusion. Impression . IMPRESSION: 1. Acute respiratory failure secondary to [id number] cardiopulmonary arrest/ anoxic encephalopathy-- now S/P trach -- improving slowly 2. [id number] ventricular fibrillation and asystole leading to anoxic brain injury. 3. Anoxic encephalopathy--ongoing/unchanged-- slowly 4. COVID neg 5. Morbid obesity. 6. Leukocytosis--improved 7. Lactic acidosis secondary to [id number] cardiac arrest. 8. Abnormal x-ray revealing bibasilar atelectasis, infiltrates. 9. Pneumothorax secondary to CPR.resolved 10. Sternal sternal fracture secondary to CPR. 11. Pneumonia positive, gram-negative, gram-positive. 12. UTI Plan . PLAN: Continue supplemental oxygen via trach shield to keep oxygen saturations greater than 92%, currently on 35% Clinically consistent with Anoxic encephalopathy-- improving Trach 06/26/20, PEG on 06/27/20 Follow infectious disease recommendations in regards to antibiotics, D/C Augmentin Follow neurology recs--no new recommendations Follow Cardiology recs-- post cardiac cath 06/25/20-- cath was clean w/ normal filling pressures Continue tube feeding for nutritional support DVT/GI PPX D/W RN and RT Social work for D/C planning --[facility] declined, family would like to give the patient a full 30 days to assess level of recovery before potentially withdrawing care. The patient would not have wanted to live on life support or with a feeding tube for prolonged period of time per family. PT. is FULL CODE Patient is clinically stable from a respiratory standpoint we will see the patient on a as needed basis please call with any questions or concerns thank you ANGELA MORENO MD Jul 12, 2020 09:59
[2020-07-12] MEDS: CARVEDILOL 3.125 MG TABLET. PO SCH ×2 (10:09→16:13)
[2020-07-12] MEDS: ASPIRIN CHEWABLE 81 MG TABLET. PO SCH (10:09)
[2020-07-12] MEDS: LISINOPRIL 20 MG TABLET PO SCH ×2 (10:10→20:27)
[2020-07-12] MEDS: AMIODARONE HCL 200 MG TABLET. PO SCH (10:10)
--- NOTE | 2020-07-12 14:34 | PDOC ---
PROGRESS NOTES Date of Service DATE: 07/12/20 TIME: 14:31 Assessment Problems Medical Problems: (1) Cardiac arrest Status: Acute (2) Fracture of ribs, multiple Status: Acute (3) Hyperglycemia Status: Acute (4) Pneumonia Status: Acute (5) Pneumothorax, right Status: Acute (6) Sternal fracture Status: Acute (7) VF (ventricular fibrillation) Status: Acute Anoxic encephalopathy, ventricular fibrillation and asystole, improving, but not making much more progress Negative for Covid Status-post trach and PEG, now off vent Plan Haloperidol as needed, also has as needed lorazepam and zolpidem Supportive care Holding on additional neurological tests Family wants to try 1 month at [facility] Transfer anytime to [facility] was ready for transfer 06/29, still here due to insurance company cary Discussed with Subjective None Objective Vital Signs Date Time Temp Pulse Resp B/P (MAP) Pulse Ox O2 Delivery O2 Flow Rate FiO2 07/12/20 11:00 97.6 103 20 95 Tracheal Collar 97.6 07/12/20 07:30 8.0 Intake and Output 07/12/20 07:00 Intake Total 400 ml Balance 400 ml Tube Feeding 400 ml # Voids 2 PHYSICAL EXAM Off ventilator, trache T piece. No response to visual threat PERRL. EOMI. CN: no focal findings. Muscle tone: normal. Muscle strength: Moving arms and legs, not thrusting tongue DTR: 1+ Plantar reflex: Flexor Gait: not examined. Sensory exam: Not cooperative Cerebellar: Not cooperative Review of Relevant I have reviewed the following items afau (where applicable) has been applied. Labs Laboratory Tests Test 07/11/20 00:19 07/11/20 12:21 07/11/20 18:51 07/11/20 23:53 Glucose (Fingerstick) 99 mg/dL (70-99) 98 mg/dL (70-99) 105 mg/dL (70-99) 96 mg/dL (70-99) Laboratory Tests Test 07/11/20 18:51 07/11/20 23:53 Glucose (Fingerstick) 105 mg/dL (70-99) 96 mg/dL (70-99) Microbiology 07/10/20 Urine Culture - Final, Complete 06/30/20 Gram Stain - Final, Complete 06/30/20 Aerobic and Anaerobic Culture - Final, Complete 06/17/20 Blood Culture - Final, Complete NO GROWTH AFTER 5 DAYS Medications Current Medications Amiodarone HCl 150 mg/Dextrose 103 ml @ 618 mls/hr 1X ONCE IV Last adm inistered on 06/17/20at 07:00; Start 06/17/20 at 07:00; Stop 06/17/20 at 07:09; Status DC Amiodarone HCl 450 mg/Dextrose 259 ml @ 33 mls/hr 1X ONCE IV ; Start 06/17/20 at 07:00; Stop 06/17/20 at 14:50; Status DC Sodium Chloride 1,000 ml @ 1,000 mls/hr 1X ONCE IV Last administered on 06/17/20at 08:11; Start 06/17/20 at 07:15; Stop 06/17/20 at 08:14; Status DC Midazolam HCl 100 ml @ 0 mls/hr 1X ONCE IV ; Start 06/17/20 at 07:15; Stop 06/17/20 at 07:16; Status DC Midazolam HCl (Versed) 5 mg STK-MED ONCE .ROUTE ; Start 06/17/20 at 07:17; Stop 06/17/20 at 07:17; Status DC Iohexol (Omnipaque 300 Mg/ml) 75 ml 1X ONCE IV Last administered on 06/17/20at 08:17; Start 06/17/20 at 08:15; Stop 06/17/20 at 08:16; Status DC Iohexol (Omnipaque 350 Mg/ml) 100 ml 1X ONCE IV Last administered on 06/17/20at 08:17; Start 06/17/20 at 08:15; Stop 06/17/20 at 08:16; Status DC Info (CONTRAST GIVEN -- Rx MONITORING) 1 each PRN DAILY PRN MC SEE COMMENTS; Start 06/17/20 at 08:15; Stop 06/19/20 at 08:14; Status DC Sodium Chloride 1,000 ml @ 1,000 mls/hr 1X ONCE IV Last administered on 06/17/20at 08:25; Start 06/17/20 at 08:15; Stop 06/17/20 at 09:14; Status DC Potassium Chloride/Water 100 ml @ 50 mls/hr 1X ONCE IV Last administered on 06/17/20at 10:16; Start 06/17/20 at 09:00; Stop 06/17/20 at 10:59; Status DC Piperacillin Sod/ Tazobactam Sod (Zosyn Per Pharmacy) 1 each PRN DAILY PRN MC SEE COMMENTS; Start 06/17/20 at 08:45; Stop 06/27/20 at 11:36; Status DC Piperacillin Sod/ Tazobactam Sod 4.5 gm/Sodium Chloride 100 ml @ 200 mls/hr 1X ONCE IV Last administered on 06/17/20at 10:15; Start 06/17/20 at 08:45; Stop 06/17/20 at 09:14; Status DC Sodium Chloride 1,000 ml @ 125 mls/hr Q8H IV Last administered on 06/17/20at 23:39; Start 06/17/20 at 09:00; Stop 06/18/20 at 08:59; Status DC Propofol (Diprivan) 200 mg 1X ONCE IV Last administered on 06/17/20at 09:00; Start 06/17/20 at 09:00; Stop 06/17/20 at 09:01; Status DC Propofol 100 ml @ As Directed STK-MED ONCE IV ; Start 06/17/20 at 09:05; Stop 06/17/20 at 09:05; Status DC Lidocaine HCl (Lidocaine 1% 20ml Vial) 20 ml 1X ONCE INJ Last administered on 06/17/20at 09:15; Start 06/17/20 at 09:15; Stop 06/17/20 at 09:20; Status DC Lidocaine HCl (Xylocaine-Mpf 1% 5ml Vial) 5 ml STK-MED ONCE .ROUTE ; Start 06/17/20 at 09:26; Stop 06/17/20 at 09:26; Status DC Sodium Chloride 1,000 ml @ 1,000 mls/hr 1X ONCE IV Last administered on 06/17/20at 10:15; Start 06/17/20 at 10:15; Stop 06/17/20 at 11:14; Status DC Propofol 100 ml @ 3.819 mls/ hr CONT PRN IV PER PROTOCOL Last administered on 06/25/20at 06:12; Start 06/17/20 at 10:45; Stop 06/29/20 at 11:47; Status DC Fentanyl Citrate (Fentanyl 2ml Vial) 100 mcg 1X ONCE IV ; Start 06/17/20 at 12:00; Stop 06/17/20 at 12:39; Status DC Midazolam HCl (Versed) 2 mg 1X ONCE IV ; Start 06/17/20 at 12:00; Stop 06/17/20 at 12:39; Status DC Magnesium Sulfate/ Dextrose 100 ml @ 100 mls/hr 1X ONCE IV Last administered on 06/17/20at 12:22; Start 06/17/20 at 12:00; Stop 06/17/20 at 12:39; Status DC Buspirone HCl (Buspar) 30 mg Q8H NG Last administered on 06/17/20at 12:31; Start 06/17/20 at 12:00; Stop 06/17/20 at 12:39; Status DC Glycerin/ Hypromellose/ Polyethylene (Artificial Tears) 1 drop Q6HRS OU ; Start 06/17/20 at 12:00; Stop 06/17/20 at 12:39; Status DC Glycerin/ Hypromellose/ Polyethylene (Artificial Tears) 1 drop PRN Q15MIN PRN OU DRY EYE; Start 06/17/20 at 12:00; Stop 06/17/20 at 12:39; Status DC Heparin Sodium (Porcine) (Heparin Sodium) 5,000 unit BID SQ ; Start 06/17/20 at 21:00; Stop 06/17/20 at 12:39; Status DC Pantoprazole Sodium (PROTONIX VIAL for IV PUSH) 40 mg DAILY IVP ; Start 06/18/20 at 09:00; Stop 06/17/20 at 12:39; Status DC Fentanyl Citrate 30 ml @ 0 mls/hr CONT PRN IV PER PROTOCOL.; Start 06/17/20 at 12:00; Stop 06/17/20 at 12:39; Status DC Propofol 100 ml @ 0 mls/hr CONT PRN IV PER PROTOCOL.; Start 06/17/20 at 12:00; Stop 06/17/20 at 12:39; Status DC Midazolam HCl 100 ml @ 0 mls/hr CONT PRN IV PER PROTOCOL; Start 06/17/20 at 12:00; Stop 06/17/20 at 12:39; Status DC Vecuronium [place] (Norcuron Bolus) 10 mg PRN Q1HR PRN IV SHIVERING; Start 06/17/20 at 12:00; Stop 06/17/20 at 12:39; Status DC Piperacillin Sod/ Tazobactam Sod 4.5 gm/Sodium Chloride 100 ml @ 200 mls/hr 1X ONCE IV ; Start 06/17/20 at 12:15; Stop 06/17/20 at 12:44; Status Cancel Midazolam HCl (Versed) 5 mg Q1HR PRN IV SEDATION Last administered on 06/29/20at 13:48; Start 06/17/20 at 12:45; Stop 07/08/20 at 12:59; Status DC Fentanyl Citrate (Fentanyl 2ml Vial) 100 mcg Q1HR IVP Last administered on 06/17/20at 18:55; Start 06/17/20 at 13:00; Stop 06/17/20 at 23:41; Status DC Piperacillin Sod/ Tazobactam Sod 3.375 gm/Sodium Chloride 50 ml @ 100 mls/hr Q6H IV Last administered on 06/27/20at 05:31; Start 06/17/20 at 16:00; Stop 06/27/20 at 11:30; Status DC Potassium Bicarbonate (Potassium Effervescent Tablet) 40 meq 1X ONCE NG Last administered on 06/18/20at 10:00; Start 06/18/20 at 09:45; Stop 06/18/20 at 09:48; Status DC Albuterol/ Ipratropium (Duoneb) 3 ml RTQID NEB Last administered on 07/12/20at 11:24; Start 06/18/20 at 20:00 Famotidine (Pepcid Vial) 20 mg BID IVP Last administered on 07/02/20at 08:05; Start 06/18/20 at 21:00; Stop 07/02/20 at 10:23; Status DC Enoxaparin Sodium (Lovenox 40mg Syringe) 40 mg Q24H SQ Last administered on 07/11/20at 19:51; Start 06/18/20 at 21:00 Levothyroxine Sodium (Synthroid) 75 mcg DAILY06 PO Last administered on 07/12/20at 05:45; Start 06/18/20 at 21:00 Fentanyl Citrate 30 ml @ 0 mls/hr CONT PRN IV SEE PROTOCOL Last administered on 06/28/20at 04:56; Start 06/18/20 at 20:15; Stop 06/29/20 at 11:47; Status DC Carvedilol (Coreg) 3.125 mg BIDWMEALS PO Last administered on 07/12/20at 10:09; Start 06/19/20 at 17:00 Atorvastatin Calcium (Lipitor) 20 mg QHS PO Last administered on 07/11/20at 19:56; Start 06/19/20 at 21:00 Aspirin (Aspirin Chewable) 81 mg DAILYWBKFT PO Last administered on 07/12/20at 10:09; Start 06/20/20 at 08:00 Aspirin (Aspirin Chewable) 81 mg 1X ONCE PO Last administered on 06/19/20at 15:57; Start 06/19/20 at 15:30; Stop 06/19/20 at 15:37; Status DC Potassium Chloride/Water 100 ml @ 100 mls/hr 1X ONCE IV Last administered on 06/19/20at 15:57; Start 06/19/20 at 15:30; Stop 06/19/20 at 16:29; Status DC Amiodarone HCl (Cordarone) 400 mg DAILY PO Last administered on 07/12/20at 10:10; Start 06/20/20 at 09:00 Furosemide (Lasix) 40 mg 1X ONCE IVP Last administered on 06/20/20at 14:38; Start 06/20/20 at 13:30; Stop 06/20/20 at 13:31; Status DC Potassium Chloride/Water 100 ml @ 100 mls/hr 1X ONCE IV Last administered on 06/20/20at 14:39; Start 06/20/20 at 13:30; Stop 06/20/20 at 14:29; Status DC Dexmedetomidine HCl 400 mcg/ Sodium Chloride 100 ml @ 0 mls/hr CONT PRN IV PER PROTOCOL Last administered on 06/29/20at 06:11; Start 06/21/20 at 10:45; Stop 06/29/20 at 11:47; Status DC Sodium Chloride 500 ml @ 500 mls/hr 1X PRN PRN IV SEE COMMENTS; Start 06/21/20 at 10:45 Atropine Sulfate (ATROPINE 0.5mg SYRINGE) 0.5 mg PRN Q5MIN PRN IV SEE COMMENTS; Start 06/21/20 at 10:45; Stop 06/29/20 at 11:47; Status DC Fentanyl Citrate (Fentanyl 2ml Vial) 50 mcg PRN Q2HR PRN IVP PAIN Last administered on 07/11/20at 22:44; Start 06/23/20 at 16:45 Midazolam HCl 100 ml @ 0 mls/hr CONT PRN IV SEE PROTOCOL Last administered on 06/28/20at 03:00; Start 06/25/20 at 11:45; Stop 06/29/20 at 11:47; Status DC Lidocaine HCl (Xylocaine-Mpf 1% 2ml Vial) 2 ml STK-MED ONCE .ROUTE ; Start 06/25/20 at 14:21; Stop 06/25/20 at 14:21; Status DC Iohexol (Omnipaque 300 Mg/ml) 100 ml STK-MED ONCE .ROUTE ; Start 06/25/20 at 14:21; Stop 06/25/20 at 14:21; Status DC Heparin Sodium/ Sodium Chloride 1,000 ml @ As Directed STK-MED ONCE .ROUTE ; Start 06/25/20 at 14:21; Stop 06/25/20 at 14:21; Status DC Heparin Sodium (Porcine) (Heparin Sodium) 10,000 unit STK-MED ONCE .ROUTE ; Start 06/25/20 at 14:31; Stop 06/25/20 at 14:31; Status DC Verapamil HCl (Verapamil) 5 mg STK-MED ONCE .ROUTE ; Start 06/25/20 at 14:31; Stop 06/25/20 at 14:31; Status DC Nitroglycerin (Nitroglycerin) 200 mcg STK-MED ONCE .ROUTE ; Start 06/25/20 at 14:31; Stop 06/25/20 at 14:31; Status DC Nitroglycerin (Nitroglycerin) 200 mcg 1X ONCE IART Last administered on 06/25/20at 15:09; Start 06/25/20 at 15:15; Stop 06/25/20 at 15:16; Status DC Verapamil HCl (Verapamil) 2.5 mg 1X ONCE IART Last administered on 06/25/20at 15:09; Start 06/25/20 at 15:15; Stop 06/25/20 at 15:16; Status DC Heparin Sodium (Porcine) (Heparin Sodium) 2,500 unit 1X ONCE IART Last administered on 06/25/20at 15:09; Start 06/25/20 at 15:15; Stop 06/25/20 at 15:16; Status DC Heparin Sodium/ Sodium Chloride (HEPARIN for ARTERIAL LINE FLUSH) 1,000 unit 1X ONCE IART Last administered on 06/25/20at 15:09; Start 06/25/20 at 15:15; Stop 06/25/20 at 15:16; Status DC Iohexol (Omnipaque 300 Mg/ml) 30 ml 1X ONCE IART Last administered on 06/25/20at 15:09; Start 06/25/20 at 15:15; Stop 06/25/20 at 15:16; Status DC Lidocaine HCl (Xylocaine-Mpf 1% 2ml Vial) 2 ml 1X ONCE INJ Last administered on 06/25/20at 15:09; Start 06/25/20 at 15:15; Stop 06/25/20 at 15:16; Status DC Amino Acids/ Glycerin/ Electrolytes 1,000 ml @ 80 mls/hr [id number] IV Last administered on 06/27/20at 20:50; Start 06/25/20 at 17:30; Stop 06/28/20 at 11:35; Status DC Potassium Chloride/Water 100 ml @ 100 mls/hr Q1H IV Last administered on 06/15 07/05at 18:46; Start 06/25/20 at 18:00; Stop 06/25/20 at 19:59; Status DC Rocuronium [place] (Zemuron) 50 mg STK-MED ONCE .ROUTE ; Start 06/26/20 at 11:37; Stop 06/26/20 at 11:38; Status DC Cellulose (Surgicel Fibrillar 1x2) 1 each STK-MED ONCE .ROUTE Last administered on 06/26/20at 13:20; Start 06/26/20 at 12:19; Stop 06/26/20 at 12:19; Status DC Bupivacaine HCl (Sensorcaine Mpf 0.5%) 30 ml STK-MED ONCE .ROUTE ; Start 06/26/20 at 12:19; Stop 06/26/20 at 12:19; Status DC Ondansetron HCl (Zofran) 4 mg STK-MED ONCE .ROUTE ; Start 06/26/20 at 13:13; Stop 06/26/20 at 13:13; Status DC Dexamethasone Sodium Phosphate (Decadron) 4 mg STK-MED ONCE .ROUTE ; Start 06/26/20 at 13:13; Stop 06/26/20 at 13:14; Status DC Cellulose (Surgicel Fibrillar 1x2) 1 each STK-MED ONCE .ROUTE Last administered on 06/26/20at 13:22; Start 06/26/20 at 13:25; Stop 06/26/20 at 13:25; Status DC Sevoflurane (Ultane) 30 ml STK-MED ONCE IH ; Start 06/26/20 at 13:37; Stop 06/26/20 at 13:38; Status DC Propofol (Diprivan) 200 mg STK-MED ONCE IV ; Start 06/26/20 at 13:38; Stop 06/26/20 at 13:38; Status DC Ringer's Solution 1,000 ml @ 30 mls/hr Q24H IV Last administered on 06/27/20at 08:39; Start 06/27/20 at 07:00; Stop 06/27/20 at 18:59; Status DC Prochlorperazine Edisylate (Compazine) 5 mg PACU PRN PRN IV NAUSEA, MRX1; Start 06/27/20 at 07:00; Stop 06/28/20 at 06:59; Status DC Propofol (Diprivan) 200 mg STK-MED ONCE IV ; Start 06/27/20 at 09:53; Stop 06/27/20 at 09:54; Status DC Lidocaine HCl (Lidocaine Pf 2% Vial) 5 ml STK-MED ONCE .ROUTE ; Start 06/27/20 at 09:54; Stop 06/27/20 at 09:54; Status DC Lisinopril (Prinivil) 5 mg DAILY PO Last administered on 07/04/20at 09:23; Start 06/29/20 at 09:00; Stop 07/04/20 at 14:46; Status DC Acetaminophen/ Hydrocodone Bitart (Lortab 7.5-325/ 15ml Oral Solution) 10 ml 1X ONCE PEG Last administered on 06/28/20at 12:37; Start 06/28/20 at 12:30; Stop 06/28/20 at 12:31; Status DC Piperacillin Sod/ Tazobactam Sod 3.375 gm/Sodium Chloride 50 ml @ 100 mls/hr Q6HRS IV Last administered on 07/07/20at 06:11; Start 06/29/20 at 10:00; Stop 07/07/20 at 09:51; Status DC Vecuronium [place] (Norcuron Bolus) 10 mg STK-MED ONCE IV ; Start 06/29/20 at 14:31; Stop 06/29/20 at 14:31; Status DC Propofol 100 ml @ 0 mls/hr CONT PRN IV PER PROTOCOL Last administered on 07/02/20at 07:26; Start 06/29/20 at 16:30; Stop 07/08/20 at 12:58; Status DC Vecuronium [place] (Norcuron Bolus) 10 mg 1X ONCE IV Last administered on 06/29/20at 14:31; Start 06/29/20 at 14:31; Stop 06/29/20 at 17:19; Status DC Daptomycin 400 mg/ Sodium Chloride 50 ml @ 100 mls/hr Q24H IV Last administered on 07/04/20at 09:25; Start 06/30/20 at 10:00; Stop 07/05/20 at 08:14; Status DC Famotidine (Pepcid) 20 mg QHS GT Last administered on 07/11/20at 19:56; Start 07/02/20 at 21:00 Haloperidol Lactate (Haldol Inj) 5 mg Q8HRS IVP Last administered on 07/03/20at 06:00; Start 07/02/20 at 14:00; Stop 07/03/20 at 12:40; Status DC Micafungin Sodium 100 mg/Dextrose 100 ml @ 100 mls/hr Q24H IV Last administered on 07/05/20at 08:04; Start 07/03/20 at 09:00; Stop 07/05/20 at 08:14; Status DC Alteplase, Recombinant (Cathflo For Central Catheter Clearance) 1 mg 1X ONCE INT CAT Last administered on 07/03/20at 08:45; Start 07/03/20 at 08:45; Stop 07/03/20 at 08:46; Status DC Haloperidol Lactate (Haldol Inj) 2.5 mg PRN Q6HRS PRN IVP AGITATION; Start 07/03/20 at 12:30; Stop 07/03/20 at 12:40; Status DC Haloperidol Lactate (Haldol Inj) 2.5 mg PRN Q6HRS PRN IVP AGITATION Last administered on 07/04/20at 01:04; Start 07/03/20 at 14:00; Stop 07/04/20 at 08:04; Status DC Haloperidol Lactate (Haldol Inj) 2.5 mg Q8HRS IVP ; Start 07/04/20 at 10:00; Stop 07/04/20 at 08:15; Status DC Haloperidol Lactate (Haldol Inj) 2.5 mg PRN Q8HRS PRN IVP AGITATION; Start 07/04/20 at 08:15; Stop 07/05/20 at 10:35; Status DC Lisinopril (Prinivil) 20 mg BID PO Last administered on 07/12/20at 10:10; Start 07/04/20 at 21:00 Haloperidol (Haldol) 0.5 mg PRN Q8HRS PRN PO AGITATION Last administered on 07/11/20at 16:37; Start 07/05/20 at 10:45 Acetaminophen (Tylenol) 650 mg PRN Q6HRS PRN PO MILD PAIN / TEMP > 100.3'F Last administered on 07/09/20at 21:20; Start 07/06/20 at 13:30 Amoxicillin/ Clavulanate Potassium (Augmentin 875/ 125mg) 1 tab BID PO Last administered on 07/11/20at 19:59; Start 07/07/20 at 21:00; Stop 07/12/20 at 09:57; Status DC Diphenhydramine HCl (Benadryl Oral Elixir) 25 mg PRN Q6HRS PRN PEG ITCHING Last administered on 07/11/20at 19:52; Start 07/10/20 at 19:15 Lorazepam (Ativan Inj) 1 mg PRN Q6HRS PRN IVP ANXIETY / AGITATION Last administered on 07/11/20at 05:21; Start 07/11/20 at 05:15; Stop 07/11/20 at 09:07; Status DC Zolpidem Tartrate (Ambien) 2.5 mg HS PO Last administered on 07/11/20at 19:52; Start 07/11/20 at 21:00; Stop 07/12/20 at 09:57; Status DC Diphenhydramine HCl (Benadryl) 50 mg PRN Q6HRS PRN IVP itching/insomina Last administered on 07/12/20at 02:24; Start 07/12/20 at 01:00 Haloperidol Lactate (Haldol Inj) 5 mg PRN Q6HRS PRN IVP AGITATION Last administered on 07/12/20at 05:45; Start 07/12/20 at 01:00 Zolpidem Tartrate (Ambien) 5 mg HS PO ; Start 07/12/20 at 21:00 Lorazepam (Ativan) 1 mg PRN Q6HRS PRN PO ANXIETY / AGITATION Last administered on 07/12/20at 10:10; Start 07/12/20 at 10:00 Active Scripts Active Reported Acetaminophen-Diphenhyd 500-25 (Acetaminophen/Diphenhydramine) 1 Each Tablet 1 Each PO HS PRN Naproxen 500 Mg Tablet 1 Tab PO BID PRN 30 Days Tramadol Hcl 50 Mg Tablet 50 Mg PO Q4HRS Levothyroxine Sodium 75 Mcg Tablet 1 Tab PO DAILY Adderall 20 Mg Tablet (Dextroamphetamine/Amphetamine) 20 Mg Tablet 1 Tab PO DAILY MDD 1 Tablet(s) 5 Days Prozac (Fluoxetine Hcl) 20 Mg Capsule 1 Cap PO [id number] Vitals/I & O Vital Sign - Last 24 Hours 07/11/20 07/11/20 07/11/20 07/11/20 15:00 15:00 15:23 16:37 Temp 97.2 97.2 Pulse 81 81 Resp 18 B/P (MAP) 126/93 (104) 122/103 (109) 126/93 Pulse Ox 97 98 O2 Delivery Room Air Tracheal Collar O2 Flow Rate 8.0 07/11/20 07/11/20 07/11/20 07/11/20 19:00 19:51 19:54 19:57 Temp 98.2 98.2 Pulse 95 80 Resp 23 18 B/P (MAP) 122/83 (96) 130/87 Pulse Ox 96 98 97 O2 Delivery Tracheal Collar Tracheal Collar O2 Flow Rate 8.0 8.0 07/11/20 07/11/20 07/11/20 07/11/20 20:00 20:21 22:44 23:00 Temp 98.8 98.8 Pulse 95 Resp 18 18 22 B/P (MAP) 126/62 (83) Pulse Ox 97 97 100 O2 Delivery Trach Collar Tracheal Collar O2 Flow Rate 8.0 8.0 8.0 07/11/20 07/12/20 07/12/20 07/12/20 23:20 03:00 07:00 07:30 Temp 98.6 98.3 98.6 98.3 Pulse 79 99 Resp 18 18 B/P (MAP) 122/58 (79) 106/75 (85) Pulse Ox 97 97 97 97 O2 Delivery Tracheal Collar Tracheal Collar Tracheal Collar O2 Flow Rate 8.0 8.0 07/12/20 07/12/20 07/12/20 07/12/20 10:09 10:10 10:10 11:00 Temp 97.6 97.6 Pulse 99 99 99 103 Resp 20 B/P (MAP) 106/75 106/75 106/75 Pulse Ox 95 O2 Delivery Tracheal Collar Intake and Output 07/11/20 07/11/20 07/12/20 15:00 23:00 07:00 Intake Total 100 ml 100 ml 200 ml Balance 100 ml 100 ml 200 ml Justicifation of Admission Dx: Justifications for Admission: Justification of Admission Dx: N/A JEFF FLORES MD Jul 12, 2020 14:34
[2020-07-12 15:00] VITALS: BP 143/119
[2020-07-12] MEDS: HALOPERIDOL 0.5 MG TABLET. PO PRN (16:13)
[2020-07-12] MEDS ORDERED: FLUCONAZOLE 100 MG TABLET. PO ONE (16:30)
[2020-07-12] MEDS: CLOTRIMAZOLE 1% VAGINAL CREAM 45GM TUBE. VG SCH (16:42)
--- NOTE | 2020-07-12 16:54 | NUR ---
SHIKHA following for discharge planning. Spoke with RN and reviewed chart. SHIKHA has not heard back from Nima with [facility] as to whether or not the will reconsider this patient. SHIKHA has left 2 messages. Spouse has not made a decision about hospice. SW following.
[2020-07-12 19:00] VITALS: BP 134/64
[2020-07-12 20:23] LABS: BASO # 0.1 x10^3/uL (0.0-0.2); BASO % 1 % (0-3); EOS # 0.3 x10^3/uL (0.0-0.7); EOS % 3 % (0-3); HEMATOCRIT 39.6 % (36.0-47.0); LYMPH # 2.4 x10^3/uL (1.0-4.8); LYMPH % 18 % (24-48); MEAN CORPUSCULAR HEMOGLOBIN 29 pg (25-35); MEAN CORPUSCULAR HGB CONC 33 g/dL (31-37); MEAN CORPUSCULAR VOLUME 89 fL (79-100); MONO # 0.8 x10^3/uL (0.0-1.1); MONO % 6 % (0-9); NEUT # 9.5 x10^3/uL (1.8-7.7); NEUT % 73 % (31-73); PLATELET COUNT 399 x10^3/uL (140-400); RED BLOOD COUNT 4.44 x10^6/uL (3.50-5.40); RED CELL DISTRIBUTION WIDTH 13.3 % (11.5-14.5)
[2020-07-12] MEDS: ENOXAPARIN 40 MG/0.4 ML SYRINGE. SQ SCH (20:26)
[2020-07-12] MEDS: FAMOTIDINE 20 MG TABLET. GT SCH (20:27)
[2020-07-12] MEDS: fentaNYL PF VIAL 100 MCG/2 ML VIAL IVP PRN (20:27)
[2020-07-12] MEDS: ZOLPIDEM 5 MG TABLET. PO SCH (20:28)
[2020-07-12] MEDS: ATORVASTATIN CALCIUM 20 MG TABLET PO SCH (20:28)
[2020-07-12 20:47] LABS: ALBUMIN 3.5 g/dL (3.4-5.0); ALBUMIN/GLOBULIN RATIO 0.8 (1.0-1.7); CALCIUM 9.9 mg/dL (8.5-10.1); CREATININE 0.7 mg/dL (0.6-1.0); GFR 86.2; POTASSIUM 3.2 mmol/L (3.5-5.1); TOTAL BILIRUBIN 0.7 mg/dL (0.2-1.0); TOTAL PROTEIN 7.9 g/dL (6.4-8.2)
[2020-07-12 23:00] VITALS: BP 107/60
[2020-07-13 02:23] VITALS: BP 129/68
[2020-07-13] MEDS: LEVOTHYROXINE 75 MCG TABLET PO SCH (05:32)
[2020-07-13 07:00] VITALS: BP 109/44
[2020-07-13] MEDS: IPRATRPIUM/ALBUTEROL 0.5/2.5MG 3 ML NEBU. NEB SCH ×4 (07:15→20:56)
[2020-07-13] MEDS ORDERED: POTASSIUM BICARB 10 MEQ EFFERVESCENT TABLET. PEG ONE (09:00)
[2020-07-13] MEDS: AMIODARONE HCL 200 MG TABLET. PO SCH (09:44)
[2020-07-13] MEDS: ASPIRIN CHEWABLE 81 MG TABLET. PO SCH (09:44)
[2020-07-13] MEDS: LISINOPRIL 20 MG TABLET PO SCH ×2 (09:44→21:43)
[2020-07-13] MEDS: CARVEDILOL 3.125 MG TABLET. PO SCH ×2 (09:45→16:30)
--- NOTE | 2020-07-13 09:46 | PDOC ---
Infectious Disease Note Subjective Subjective does not follow any commands no fevers Tolerating tube feedings well No acute concerns per discussion with RN Vital Sign Vital Signs Vital Signs Date Time Temp Pulse Resp B/P (MAP) Pulse Ox O2 Delivery O2 Flow Rate FiO2 07/13/20 09:45 64 109/44 07/13/20 07:15 97 Tracheal Collar 8.0 07/13/20 07:00 98.0 16 98.0 Physical Exam PHYSICAL EXAM GENERAL: Opens eyes transiently, does not follow any commands, Moving arms and legs, not thrusting tongue HEENT: Both pupils are round and reacting. No conjunctival lesion. NECK: Supple. Trach present, erythema and drainage present around trach site improving LUNGS: Decreased breath sounds bilaterally. HEART: S1, S2, regular. No gallop or murmur. ABDOMEN: Soft, nontender. No organomegaly.peg tube + fecal tube , Jolly present EXTREMITIES: No edema or cyanosis. toe amputation of the Rt foot,healed scars SKIN: Unremarkable. NEUROLOGICAL: Opens eyes transiently does not follow any commands Labs Lab Laboratory Tests Test 07/12/20 19:45 07/13/20 01:27 07/13/20 05:35 White Blood Count 13.0 x10^3/uL (4.0-11.0) Red Blood Count 4.44 x10^6/uL (3.50-5.40) Hemoglobin 13.0 g/dL (12.0-15.5) Hematocrit 39.6 % (36.0-47.0) Mean Corpuscular Volume 89 fL (79-100) Mean Corpuscular Hemoglobin 29 pg (25-35) Mean Corpuscular Hemoglobin Concent 33 g/dL (31-37) Red Cell Distribution Width 13.3 % (11.5-14.5) Platelet Count 399 x10^3/uL (140-400) Neutrophils (%) (Auto) 73 % (31-73) Lymphocytes (%) (Auto) 18 % (24-48) Monocytes (%) (Auto) 6 % (0-9) Eosinophils (%) (Auto) 3 % (0-3) Basophils (%) (Auto) 1 % (0-3) Neutrophils # (Auto) 9.5 x10^3/uL (1.8-7.7) Lymphocytes # (Auto) 2.4 x10^3/uL (1.0-4.8) Monocytes # (Auto) 0.8 x10^3/uL (0.0-1.1) Eosinophils # (Auto) 0.3 x10^3/uL (0.0-0.7) Basophils # (Auto) 0.1 x10^3/uL (0.0-0.2) Sodium Level 146 mmol/L (136-145) Potassium Level 3.2 mmol/L (3.5-5.1) Chloride Level 107 mmol/L (98-107) Carbon Dioxide Level 25 mmol/L (21-32) Anion Gap 14 (6-14) Blood Urea Nitrogen 23 mg/dL (7-20) Creatinine 0.7 mg/dL (0.6-1.0) Estimated GFR (Cockcroft-Gault) 86.2 BUN/Creatinine Ratio 33 (6-20) Glucose Level 108 mg/dL (70-99) Calcium Level 9.9 mg/dL (8.5-10.1) Total Bilirubin 0.7 mg/dL (0.2-1.0) Aspartate Amino Transf (AST/SGOT) 34 U/L (15-37) Alanine Aminotransferase (ALT/SGPT) 33 U/L (14-59) Alkaline Phosphatase 89 U/L (46-116) Total Protein 7.9 g/dL (6.4-8.2) Albumin 3.5 g/dL (3.4-5.0) Albumin/Globulin Ratio 0.8 (1.0-1.7) Glucose (Fingerstick) 101 mg/dL (70-99) 114 mg/dL (70-99) Micro Microbiology 06/17/20 Blood Culture - Preliminary, Resulted NO GROWTH AFTER 1 DAY Objective Assessment 1. Cardiopulmonary arrest at home. With VT, shock then asystole s/p cardiac cath , normal coronaries Severe NICM Acute systolic CHF: compensated 2. Leukocytosis, likely reactive. resolved 3. Lactic acidosis from #1. 4. Respiratory failure. suspected aspiration; status post trach placement, swab culture from trach site with Filomena albicans 5. Anoxic Encephalopathy 6. Hypertension. 7. Pneumothorax.s/p CTS, 8. Rib fracture and sternal fracture. 9. Anemia 10. S/P Peg tube placement 11. Marijuana use: + UDS on amiodarone Plan Plan of Care dc Augmentin cont supportive care Overall prognosis poor Discussed with RN d/w will sign off , call if questions POPPY RENAE MD Jul 13, 2020 09:46
--- NOTE | 2020-07-13 10:09 | PDOC ---
PROGRESS NOTES Date of Service: DATE: 07/13/20 TIME: 10:08 Chief Complaint Chief Complaint POST covid cardiomyopathy acute systolic CHF Severe NICM: EF 25%. No significant CAD per [facility] anoxic brain injury Cardiac arrest with resuscitation and probable pneumonia, sternal fracture and pneumothorax secondary to CPR, leukocytosis, electrolyte disturbance, hypokalemia, lactic acidosis, elevated troponin. Family wants to try 1 month at [facility] Transfer to 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 No significant change overnight, still no purposeful movements. Sounds as though family still plans to hold off on any change in CODE STATUS or goals of care until at least 30 days after admission date. did show me some video of patient smiling and having meaningful exchange with a family friend today. 07/07. Transfer out of ICU to the medical floors. Discussed with , he feels that music is helping patient. She will occasionally check in with eyes, but no purposeful movements. Has been mentioned trying to give 30 days for admission to show any signs of meaningful improvement. At which time decision will be made about hospice in future goals of care. 07/06, will transfer to floor, no tele, off vent now for some time. discussed with , she does seem improved, she had a tiny smile to some music earlier, still not following commands or any purposeful response 07/05, about the same, discussed my previous thoughts again with and son, not following commands, movement is seeming to be mostly reflexive. they still want to cont iwth the 30 days plan to give her a chance to improve. I discussed possible transition to hospice, they want to wait until that time. 07/04-, minmal change, some relfexive movements, had a video of her withdrawing to light touch to face, soem work with PT, not following commands as directed I discussed poor prognosis with at length, that as days go by, her chances for meaningful recovery continue to dim. I discussed consideration of hospice care. 07/03/2020, discussed plan with family at length yesterday Patient seen and examined in the ICU plan LTAC start PT and OT moving around a lot She is still not very responsive but at the same time kind of agitated Vitals Vitals Vital Signs Date Time Temp Pulse Resp B/P (MAP) Pulse Ox O2 Delivery O2 Flow Rate FiO2 07/13/20 09:45 64 109/44 07/13/20 07:15 97 Tracheal Collar 8.0 07/13/20 07:00 98.0 16 98.0 Physical Exam Physical Exam GENERAL: Opens eyes transiently, does not follow any commands, Moving arms and legs, not thrusting tongue HEENT: Both pupils are round and reacting. No conjunctival lesion. NECK: Supple. Trach present, erythema and drainage present around trach site improving LUNGS: Decreased breath sounds bilaterally. HEART: S1, S2, regular. No gallop or murmur. ABDOMEN: Soft, nontender. No organomegaly.peg tube + fecal tube , Jolly present EXTREMITIES: No edema or cyanosis. toe amputation of the Rt foot,healed scars SKIN: Unremarkable. NEUROLOGICAL: Opens eyes transiently does not follow any commands General: No acute distress, mild distress Heart: Regular rate, Normal S1, Normal S2 Lungs: Clear Abdomen: Normal bowel sounds, Soft, No tenderness, No masses Extremities: No cyanosis Skin: No rashes, No breakdown Labs LABS Laboratory Tests Test 07/12/20 19:45 07/13/20 01:27 07/13/20 05:35 White Blood Count 13.0 x10^3/uL (4.0-11.0) Red Blood Count 4.44 x10^6/uL (3.50-5.40) Hemoglobin 13.0 g/dL (12.0-15.5) Hematocrit 39.6 % (36.0-47.0) Mean Corpuscular Volume 89 fL (79-100) Mean Corpuscular Hemoglobin 29 pg (25-35) Mean Corpuscular Hemoglobin Concent 33 g/dL (31-37) Red Cell Distribution Width 13.3 % (11.5-14.5) Platelet Count 399 x10^3/uL (140-400) Neutrophils (%) (Auto) 73 % (31-73) Lymphocytes (%) (Auto) 18 % (24-48) Monocytes (%) (Auto) 6 % (0-9) Eosinophils (%) (Auto) 3 % (0-3) Basophils (%) (Auto) 1 % (0-3) Neutrophils # (Auto) 9.5 x10^3/uL (1.8-7.7) Lymphocytes # (Auto) 2.4 x10^3/uL (1.0-4.8) Monocytes # (Auto) 0.8 x10^3/uL (0.0-1.1) Eosinophils # (Auto) 0.3 x10^3/uL (0.0-0.7) Basophils # (Auto) 0.1 x10^3/uL (0.0-0.2) Sodium Level 146 mmol/L (136-145) Potassium Level 3.2 mmol/L (3.5-5.1) Chloride Level 107 mmol/L (98-107) Carbon Dioxide Level 25 mmol/L (21-32) Anion Gap 14 (6-14) Blood Urea Nitrogen 23 mg/dL (7-20) Creatinine 0.7 mg/dL (0.6-1.0) Estimated GFR (Cockcroft-Gault) 86.2 BUN/Creatinine Ratio 33 (6-20) Glucose Level 108 mg/dL (70-99) Calcium Level 9.9 mg/dL (8.5-10.1) Total Bilirubin 0.7 mg/dL (0.2-1.0) Aspartate Amino Transf (AST/SGOT) 34 U/L (15-37) Alanine Aminotransferase (ALT/SGPT) 33 U/L (14-59) Alkaline Phosphatase 89 U/L (46-116) Total Protein 7.9 g/dL (6.4-8.2) Albumin 3.5 g/dL (3.4-5.0) Albumin/Globulin Ratio 0.8 (1.0-1.7) Glucose (Fingerstick) 101 mg/dL (70-99) 114 mg/dL (70-99) Assessment and Plan Assessmemt and Plan Problems Medical Problems: (1) Cardiac arrest Status: Acute (2) Fracture of ribs, multiple Status: Acute (3) Hyperglycemia Status: Acute (4) Pneumonia Status: Acute (5) Pneumothorax, right Status: Acute (6) Sternal fracture Status: Acute (7) VF (ventricular fibrillation) Status: Acute Comment Review of Relevant I have reviewed the following items afua (where applicable) has been applied. Labs Laboratory Tests Test 07/11/20 12:21 07/11/20 18:51 07/11/20 23:53 07/12/20 19:45 Glucose (Fingerstick) 98 mg/dL (70-99) 105 mg/dL (70-99) 96 mg/dL (70-99) White Blood Count 13.0 x10^3/uL (4.0-11.0) Red Blood Count 4.44 x10^6/uL (3.50-5.40) Hemoglobin 13.0 g/dL (12.0-15.5) Hematocrit 39.6 % (36.0-47.0) Mean Corpuscular Volume 89 fL (79-100) Mean Corpuscular Hemoglobin 29 pg (25-35) Mean Corpuscular Hemoglobin Concent 33 g/dL (31-37) Red Cell Distribution Width 13.3 % (11.5-14.5) Platelet Count 399 x10^3/uL (140-400) Neutrophils (%) (Auto) 73 % (31-73) Lymphocytes (%) (Auto) 18 % (24-48) Monocytes (%) (Auto) 6 % (0-9) Eosinophils (%) (Auto) 3 % (0-3) Basophils (%) (Auto) 1 % (0-3) Neutrophils # (Auto) 9.5 x10^3/uL (1.8-7.7) Lymphocytes # (Auto) 2.4 x10^3/uL (1.0-4.8) Monocytes # (Auto) 0.8 x10^3/uL (0.0-1.1) Eosinophils # (Auto) 0.3 x10^3/uL (0.0-0.7) Basophils # (Auto) 0.1 x10^3/uL (0.0-0.2) Sodium Level 146 mmol/L (136-145) Potassium Level 3.2 mmol/L (3.5-5.1) Chloride Level 107 mmol/L (98-107) Carbon Dioxide Level 25 mmol/L (21-32) Anion Gap 14 (6-14) Blood Urea Nitrogen 23 mg/dL (7-20) Creatinine 0.7 mg/dL (0.6-1.0) Estimated GFR (Cockcroft-Gault) 86.2 BUN/Creatinine Ratio 33 (6-20) Glucose Level 108 mg/dL (70-99) Calcium Level 9.9 mg/dL (8.5-10.1) Total Bilirubin 0.7 mg/dL (0.2-1.0) Aspartate Amino Transf (AST/SGOT) 34 U/L (15-37) Alanine Aminotransferase (ALT/SGPT) 33 U/L (14-59) Alkaline Phosphatase 89 U/L (46-116) Total Protein 7.9 g/dL (6.4-8.2) Albumin 3.5 g/dL (3.4-5.0) Albumin/Globulin Ratio 0.8 (1.0-1.7) Test 07/13/20 01:27 07/13/20 05:35 Glucose (Fingerstick) 101 mg/dL (70-99) 114 mg/dL (70-99) Laboratory Tests Test 07/12/20 19:45 07/13/20 01:27 07/13/20 05:35 White Blood Count 13.0 x10^3/uL (4.0-11.0) Red Blood Count 4.44 x10^6/uL (3.50-5.40) Hemoglobin 13.0 g/dL (12.0-15.5) Hematocrit 39.6 % (36.0-47.0) Mean Corpuscular Volume 89 fL (79-100) Mean Corpuscular Hemoglobin 29 pg (25-35) Mean Corpuscular Hemoglobin Concent 33 g/dL (31-37) Red Cell Distribution Width 13.3 % (11.5-14.5) Platelet Count 399 x10^3/uL (140-400) Neutrophils (%) (Auto) 73 % (31-73) Lymphocytes (%) (Auto) 18 % (24-48) Monocytes (%) (Auto) 6 % (0-9) Eosinophils (%) (Auto) 3 % (0-3) Basophils (%) (Auto) 1 % (0-3) Neutrophils # (Auto) 9.5 x10^3/uL (1.8-7.7) Lymphocytes # (Auto) 2.4 x10^3/uL (1.0-4.8) Monocytes # (Auto) 0.8 x10^3/uL (0.0-1.1) Eosinophils # (Auto) 0.3 x10^3/uL (0.0-0.7) Basophils # (Auto) 0.1 x10^3/uL (0.0-0.2) Sodium Level 146 mmol/L (136-145) Potassium Level 3.2 mmol/L (3.5-5.1) Chloride Level 107 mmol/L (98-107) Carbon Dioxide Level 25 mmol/L (21-32) Anion Gap 14 (6-14) Blood Urea Nitrogen 23 mg/dL (7-20) Creatinine 0.7 mg/dL (0.6-1.0) Estimated GFR (Cockcroft-Gault) 86.2 BUN/Creatinine Ratio 33 (6-20) Glucose Level 108 mg/dL (70-99) Calcium Level 9.9 mg/dL (8.5-10.1) Total Bilirubin 0.7 mg/dL (0.2-1.0) Aspartate Amino Transf (AST/SGOT) 34 U/L (15-37) Alanine Aminotransferase (ALT/SGPT) 33 U/L (14-59) Alkaline Phosphatase 89 U/L (46-116) Total Protein 7.9 g/dL (6.4-8.2) Albumin 3.5 g/dL (3.4-5.0) Albumin/Globulin Ratio 0.8 (1.0-1.7) Glucose (Fingerstick) 101 mg/dL (70-99) 114 mg/dL (70-99) Microbiology 07/10/20 Urine Culture - Final, Complete 06/30/20 Gram Stain - Final, Complete 06/30/20 Aerobic and Anaerobic Culture - Final, Complete 06/17/20 Blood Culture - Final, Complete NO GROWTH AFTER 5 DAYS Medications Current Medications Amiodarone HCl 150 mg/Dextrose 103 ml @ 618 mls/hr 1X ONCE IV Last administered on 06/17/20at 07:00; Start 06/17/20 at 07:00; Stop 06/17/20 at 07:09; Status DC Amiodarone HCl 450 mg/Dextrose 259 ml @ 33 mls/hr 1X ONCE IV ; Start 06/17/20 at 07:00; Stop 06/17/20 at 14:50; Status DC Sodium Chloride 1,000 ml @ 1,000 mls/hr 1X ONCE IV Last administered on 06/17/20at 08:11; Start 06/17/20 at 07:15; Stop 06/17/20 at 08:14; Status DC Midazolam HCl 100 ml @ 0 mls/hr 1X ONCE IV ; Start 06/17/20 at 07:15; Stop 06/17/20 at 07:16; Status DC Midazolam HCl (Versed) 5 mg STK-MED ONCE .ROUTE ; Start 06/17/20 at 07:17; Stop 06/17/20 at 07:17; Status DC Iohexol (Omnipaque 300 Mg/ml) 75 ml 1X ONCE IV Last administered on 06/17/20at 08:17; Start 06/17/20 at 08:15; Stop 06/17/20 at 08:16; Status DC Iohexol (Omnipaque 350 Mg/ml) 100 ml 1X ONCE IV Last administered on 06/17/20at 08:17; Start 06/17/20 at 08:15; Stop 06/17/20 at 08:16; Status DC Info (CONTRAST GIVEN -- Rx MONITORING) 1 each PRN DAILY PRN MC SEE COMMENTS; Start 06/17/20 at 08:15; Stop 06/19/20 at 08:14; Status DC Sodium Chloride 1,000 ml @ 1,000 mls/hr 1X ONCE IV Last administered on 06/17/20at 08:25; Start 06/17/20 at 08:15; Stop 06/17/20 at 09:14; Status DC Potassium Chloride/Water 100 ml @ 50 mls/hr 1X ONCE IV Last administered on 06/17/20at 10:16; Start 06/17/20 at 09:00; Stop 06/17/20 at 10:59; Status DC Piperacillin Sod/ Tazobactam Sod (Zosyn Per Pharmacy) 1 each PRN DAILY PRN MC SEE COMMENTS; Start 06/17/20 at 08:45; Stop 06/27/20 at 11:36; Status DC Piperacillin Sod/ Tazobactam Sod 4.5 gm/Sodium Chloride 100 ml @ 200 mls/hr 1X ONCE IV Last administered on 06/17/20at 10:15; Start 06/17/20 at 08:45; Stop 06/17/20 at 09:14; Status DC Sodium Chloride 1,000 ml @ 125 mls/hr Q8H IV Last administered on 06/17/20at 23:39; Start 06/17/20 at 09:00; Stop 06/18/20 at 08:59; Status DC Propofol (Diprivan) 200 mg 1X ONCE IV Last administered on 06/17/20at 09:00; Start 06/17/20 at 09:00; Stop 06/17/20 at 09:01; Status DC Propofol 100 ml @ As Directed STK-MED ONCE IV ; Start 06/17/20 at 09:05; Stop 06/17/20 at 09:05; Status DC Lidocaine HCl (Lidocaine 1% 20ml Vial) 20 ml 1X ONCE INJ Last administered on 06/17/20at 09:15; Start 06/17/20 at 09:15; Stop 06/17/20 at 09:20; Status DC Lidocaine HCl (Xylocaine-Mpf 1% 5ml Vial) 5 ml STK-MED ONCE .ROUTE ; Start 06/17/20 at 09:26; Stop 06/17/20 at 09:26; Status DC Sodium Chloride 1,000 ml @ 1,000 mls/hr 1X ONCE IV Last administered on 06/17/20at 10:15; Start 06/17/20 at 10:15; Stop 06/17/20 at 11:14; Status DC Propofol 100 ml @ 3.819 mls/ hr CONT PRN IV PER PROTOCOL Last administered on 06/25/20at 06:12; Start 06/17/20 at 10:45; Stop 06/29/20 at 11:47; Status DC Fentanyl Citrate (Fentanyl 2ml Vial) 100 mcg 1X ONCE IV ; Start 06/17/20 at 12:00; Stop 06/17/20 at 12:39; Status DC Midazolam HCl (Versed) 2 mg 1X ONCE IV ; Start 06/17/20 at 12:00; Stop 06/17/20 at 12:39; Status DC Magnesium Sulfate/ Dextrose 100 ml @ 100 mls/hr 1X ONCE IV Last administered on 06/17/20at 12:22; Start 06/17/20 at 12:00; Stop 06/17/20 at 12:39; Status DC Buspirone HCl (Buspar) 30 mg Q8H NG Last administered on 06/17/20at 12:31; Start 06/17/20 at 12:00; Stop 06/17/20 at 12:39; Status DC Glycerin/ Hypromellose/ Polyethylene (Artificial Tears) 1 drop Q6HRS OU ; Start 06/17/20 at 12:00; Stop 06/17/20 at 12:39; Status DC Glycerin/ Hypromellose/ Polyethylene (Artificial Tears) 1 drop PRN Q15MIN PRN OU DRY EYE; Start 06/17/20 at 12:00; Stop 06/17/20 at 12:39; Status DC Heparin Sodium (Porcine) (Heparin Sodium) 5,000 unit BID SQ ; Start 06/17/20 at 21:00; Stop 06/17/20 at 12:39; Status DC Pantoprazole Sodium (PROTONIX VIAL for IV PUSH) 40 mg DAILY IVP ; Start 06/18/20 at 09:00; Stop 06/17/20 at 12:39; Status DC Fentanyl Citrate 30 ml @ 0 mls/hr CONT PRN IV PER PROTOCOL.; Start 06/17/20 at 12:00; Stop 06/17/20 at 12:39; Status DC Propofol 100 ml @ 0 mls/hr CONT PRN IV PER PROTOCOL.; Start 06/17/20 at 12:00; Stop 06/17/20 at 12:39; Status DC Midazolam HCl 100 ml @ 0 mls/hr CONT PRN IV PER PROTOCOL; Start 06/17/20 at 12:00; Stop 06/17/20 at 12:39; Status DC Vecuronium [place] (Norcuron Bolus) 10 mg PRN Q1HR PRN IV SHIVERING; Start 06/17/20 at 12:00; Stop 06/17/20 at 12:39; Status DC Piperacillin Sod/ Tazobactam Sod 4.5 gm/Sodium Chloride 100 ml @ 200 mls/hr 1X ONCE IV ; Start 06/17/20 at 12:15; Stop 06/17/20 at 12:44; Status Cancel Midazolam HCl (Versed) 5 mg Q1HR PRN IV SEDATION Last administered on 06/29/20at 13:48; Start 06/17/20 at 12:45; Stop 07/08/20 at 12:59; Status DC Fentanyl Citrate (Fentanyl 2ml Vial) 100 mcg Q1HR IVP Last administered on 06/17/20at 18:55; Start 06/17/20 at 13:00; Stop 06/17/20 at 23:41; Status DC Piperacillin Sod/ Tazobactam Sod 3.375 gm/Sodium Chloride 50 ml @ 100 mls/hr Q6H IV Last administered on 06/27/20at 05:31; Start 06/17/20 at 16:00; Stop 06/27/20 at 11:30; Status DC Potassium Bicarbonate (Potassium Effervescent Tablet) 40 meq 1X ONCE NG Last administered on 06/18/20at 10:00; Start 06/18/20 at 09:45; Stop 06/18/20 at 09:48; Status DC Albuterol/ Ipratropium (Duoneb) 3 ml RTQID NEB Last administered on 07/13/20at 07:15; Start 06/18/20 at 20:00 Famotidine (Pepcid Vial) 20 mg BID IVP Last administered on 07/02/20at 08:05; Start 06/18/20 at 21:00; Stop 07/02/20 at 10:23; Status DC Enoxaparin Sodium (Lovenox 40mg Syringe) 40 mg Q24H SQ Last administered on 07/12/20at 20:26; Start 06/18/20 at 21:00 Levothyroxine Sodium (Synthroid) 75 mcg DAILY06 PO Last administered on 07/13/20at 05:32; Start 06/18/20 at 21:00 Fentanyl Citrate 30 ml @ 0 mls/hr CONT PRN IV SEE PROTOCOL Last administered on 06/28/20at 04:56; Start 06/18/20 at 20:15; Stop 06/29/20 at 11:47; Status DC Carvedilol (Coreg) 3.125 mg BIDWMEALS PO Last administered on 07/13/20at 09:45; Start 06/19/20 at 17:00 Atorvastatin Calcium (Lipitor) 20 mg QHS PO Last administered on 07/12/20at 20:28; Start 06/19/20 at 21:00 Aspirin (Aspirin Chewable) 81 mg [id number] PO Last administered on 07/13/20at 09:44; Start 06/20/20 at 08:00 Aspirin (Aspirin Chewable) 81 mg 1X ONCE PO Last administered on 06/19/20at 15:57; Start 06/19/20 at 15:30; Stop 06/19/20 at 15:37; Status DC Potassium Chloride/Water 100 ml @ 100 mls/hr 1X ONCE IV Last administered on 06/19/20at 15:57; Start 06/19/20 at 15:30; Stop 06/19/20 at 16:29; Status DC Amiodarone HCl (Cordarone) 400 mg DAILY PO Last administered on 07/13/20at 09:44; Start 06/20/20 at 09:00 Furosemide (Lasix) 40 mg 1X ONCE IVP Last administered on 06/20/20at 14:38; Start 06/20/20 at 13:30; Stop 06/20/20 at 13:31; Status DC Potassium Chloride/Water 100 ml @ 100 mls/hr 1X ONCE IV Last administered on 06/20/20at 14:39; Start 06/20/20 at 13:30; Stop 06/20/20 at 14:29; Status DC Dexmedetomidine HCl 400 mcg/ Sodium Chloride 100 ml @ 0 mls/hr CONT PRN IV PER PROTOCOL Last administered on 06/29/20at 06:11; Start 06/21/20 at 10:45; Stop 06/29/20 at 11:47; Status DC Sodium Chloride 500 ml @ 500 mls/hr 1X PRN PRN IV SEE COMMENTS; Start 06/21/20 at 10:45 Atropine Sulfate (ATROPINE 0.5mg SYRINGE) 0.5 mg PRN Q5MIN PRN IV SEE COMMENTS; Start 06/21/20 at 10:45; Stop 06/29/20 at 11:47; Status DC Fentanyl Citrate (Fentanyl 2ml Vial) 50 mcg PRN Q2HR PRN IVP PAIN Last administered on 07/12/20at 20:27; Start 06/23/20 at 16:45 Midazolam HCl 100 ml @ 0 mls/hr CONT PRN IV SEE PROTOCOL Last administered on 06/28/20at 03:00; Start 06/25/20 at 11:45; Stop 06/29/20 at 11:47; Status DC Lidocaine HCl (Xylocaine-Mpf 1% 2ml Vial) 2 ml STK-MED ONCE .ROUTE ; Start 06/25/20 at 14:21; Stop 06/25/20 at 14:21; Status DC Iohexol (Omnipaque 300 Mg/ml) 100 ml STK-MED ONCE .ROUTE ; Start 06/25/20 at 14:21; Stop 06/25/20 at 14:21; Status DC Heparin Sodium/ Sodium Chloride 1,000 ml @ As Directed STK-MED ONCE .ROUTE ; Start 06/25/20 at 14:21; Stop 06/25/20 at 14:21; Status DC Heparin Sodium (Porcine) (Heparin Sodium) 10,000 unit STK-MED ONCE .ROUTE ; Start 06/25/20 at 14:31; Stop 06/25/20 at 14:31; Status DC Verapamil HCl (Verapamil) 5 mg STK-MED ONCE .ROUTE ; Start 06/25/20 at 14:31; Stop 06/25/20 at 14:31; Status DC Nitroglycerin (Nitroglycerin) 200 mcg STK-MED ONCE .ROUTE ; Start 06/25/20 at 14:31; Stop 06/25/20 at 14:31; Status DC Nitroglycerin (Nitroglycerin) 200 mcg 1X ONCE IART Last administered on 06/25/20at 15:09; Start 06/25/20 at 15:15; Stop 06/25/20 at 15:16; Status DC Verapamil HCl (Verapamil) 2.5 mg 1X ONCE IART Last administered on 06/25/20at 15:09; Start 06/25/20 at 15:15; Stop 06/25/20 at 15:16; Status DC Heparin Sodium (Porcine) (Heparin Sodium) 2,500 unit 1X ONCE IART Last administered on 06/25/20at 15:09; Start 06/25/20 at 15:15; Stop 06/25/20 at 15:16; Status DC Heparin Sodium/ Sodium Chloride (HEPARIN for ARTERIAL LINE FLUSH) 1,000 unit 1X ONCE IART Last administered on 06/25/20at 15:09; Start 06/25/20 at 15:15; Stop 06/25/20 at 15:16; Status DC Iohexol (Omnipaque 300 Mg/ml) 30 ml 1X ONCE IART Last administered on 06/25/20at 15:09; Start 06/25/20 at 15:15; Stop 06/25/20 at 15:16; Status DC Lidocaine HCl (Xylocaine-Mpf 1% 2ml Vial) 2 ml 1X ONCE INJ Last administered on 06/25/20at 15:09; Start 06/25/20 at 15:15; Stop 06/25/20 at 15:16; Status DC Amino Acids/ Glycerin/ Electrolytes 1,000 ml @ 80 mls/hr [id number] IV Last administered on 06/27/20at 20:50; Start 06/25/20 at 17:30; Stop 06/28/20 at 11:35; Status DC Potassium Chloride/Water 100 ml @ 100 mls/hr Q1H IV Last administered on 06/25/20at 18:46; Start 06/25/20 at 18:00; Stop 06/25/20 at 19:59; Status DC Rocuronium [place] (Zemuron) 50 mg STK-MED ONCE .ROUTE ; Start 06/26/20 at 11:37; Stop 06/26/20 at 11:38; Status DC Cellulose (Surgicel Fibrillar 1x2) 1 each STK-MED ONCE .ROUTE Last administered on 06/26/20at 13:20; Start 06/26/20 at 12:19; Stop 06/26/20 at 12:19; Status DC Bupivacaine HCl (Sensorcaine Mpf 0.5%) 30 ml STK-MED ONCE .ROUTE ; Start 06/26/20 at 12:19; Stop 06/26/20 at 12:19; Status DC Ondansetron HCl (Zofran) 4 mg STK-MED ONCE .ROUTE ; Start 06/26/20 at 13:13; Stop 06/26/20 at 13:13; Status DC Dexamethasone Sodium Phosphate (Decadron) 4 mg STK-MED ONCE .ROUTE ; Start 06/26/20 at 13:13; Stop 06/26/20 at 13:14; Status DC Cellulose (Surgicel Fibrillar 1x2) 1 each STK-MED ONCE .ROUTE Last administered on 06/26/20at 13:22; Start 06/26/20 at 13:25; Stop 06/26/20 at 13:25; Status DC Sevoflurane (Ultane) 30 ml STK-MED ONCE IH ; Start 06/26/20 at 13:37; Stop 06/26/20 at 13:38; Status DC Propofol (Diprivan) 200 mg STK-MED ONCE IV ; Start 06/26/20 at 13:38; Stop 06/15 08/05 at 13:38; Status DC Ringer's Solution 1,000 ml @ 30 mls/hr Q24H IV Last administered on 06/27/20at 08:39; Start 06/27/20 at 07:00; Stop 06/27/20 at 18:59; Status DC Prochlorperazine Edisylate (Compazine) 5 mg PACU PRN PRN IV NAUSEA, MRX1; Start 06/27/20 at 07:00; Stop 06/28/20 at 06:59; Status DC Propofol (Diprivan) 200 mg STK-MED ONCE IV ; Start 06/27/20 at 09:53; Stop 06/27/20 at 09:54; Status DC Lidocaine HCl (Lidocaine Pf 2% Vial) 5 ml STK-MED ONCE .ROUTE ; Start 06/27/20 at 09:54; Stop 06/27/20 at 09:54; Status DC Lisinopril (Prinivil) 5 mg DAILY PO Last administered on 07/04/20at 09:23; Start 06/29/20 at 09:00; Stop 07/04/20 at 14:46; Status DC Acetaminophen/ Hydrocodone Bitart (Lortab 7.5-325/ 15ml Oral Solution) 10 ml 1X ONCE PEG Last administered on 06/28/20at 12:37; Start 06/28/20 at 12:30; Stop 06/28/20 at 12:31; Status DC Piperacillin Sod/ Tazobactam Sod 3.375 gm/Sodium Chloride 50 ml @ 100 mls/hr Q6HRS IV Last administered on 07/07/20at 06:11; Start 06/29/20 at 10:00; Stop 07/07/20 at 09:51; Status DC Vecuronium [place] (Norcuron Bolus) 10 mg STK-MED ONCE IV ; Start 06/29/20 at 14:31; Stop 06/29/20 at 14:31; Status DC Propofol 100 ml @ 0 mls/hr CONT PRN IV PER PROTOCOL Last administered on 07/02/20at 07:26; Start 06/29/20 at 16:30; Stop 07/08/20 at 12:58; Status DC Vecuronium [place] (Norcuron Bolus) 10 mg 1X ONCE IV Last administered on 06/29/20at 14:31; Start 06/29/20 at 14:31; Stop 06/29/20 at 17:19; Status DC Daptomycin 400 mg/ Sodium Chloride 50 ml @ 100 mls/hr Q24H IV Last administered on 07/04/20at 09:25; Start 06/30/20 at 10:00; Stop 07/05/20 at 08:14; Status DC Famotidine (Pepcid) 20 mg QHS GT Last administered on 07/12/20at 20:27; Start 07/02/20 at 21:00 Haloperidol Lactate (Haldol Inj) 5 mg Q8HRS IVP Last administered on 07/03/20at 06:00; Start 07/02/20 at 14:00; Stop 07/03/20 at 12:40; Status DC Micafungin Sodium 100 mg/Dextrose 100 ml @ 100 mls/hr Q24H IV Last administered on 07/05/20at 08:04; Start 07/03/20 at 09:00; Stop 07/05/20 at 08:14; Status DC Alteplase, Recombinant (Cathflo For Central Catheter Clearance) 1 mg 1X ONCE INT CAT Last administered on 07/03/20at 08:45; Start 07/03/20 at 08:45; Stop 07/03/20 at 08:46; Status DC Haloperidol Lactate (Haldol Inj) 2.5 mg PRN Q6HRS PRN IVP AGITATION; Start 07/03/20 at 12:30; Stop 07/03/20 at 12:40; Status DC Haloperidol Lactate (Haldol Inj) 2.5 mg PRN Q6HRS PRN IVP AGITATION Last admin istered on 07/04/20at 01:04; Start 07/03/20 at 14:00; Stop 07/04/20 at 08:04; Status DC Haloperidol Lactate (Haldol Inj) 2.5 mg Q8HRS IVP ; Start 07/04/20 at 10:00; Stop 07/04/20 at 08:15; Status DC Haloperidol Lactate (Haldol Inj) 2.5 mg PRN Q8HRS PRN IVP AGITATION; Start 07/04/20 at 08:15; Stop 07/05/20 at 10:35; Status DC Lisinopril (Prinivil) 20 mg BID PO Last administered on 07/13/20at 09:44; Start 07/04/20 at 21:00 Haloperidol (Haldol) 0.5 mg PRN Q8HRS PRN PO AGITATION Last administered on 07/12/20at 16:13; Start 07/05/20 at 10:45 Acetaminophen (Tylenol) 650 mg PRN Q6HRS PRN PO MILD PAIN / TEMP > 100.3'F Last administered on 07/09/20at 21:20; Start 07/06/20 at 13:30 Amoxicillin/ Clavulanate Potassium (Augmentin 875/ 125mg) 1 tab BID PO Last administered on 07/11/20at 19:59; Start 07/07/20 at 21:00; Stop 07/12/20 at 09:57; Status DC Diphenhydramine HCl (Benadryl Oral Elixir) 25 mg PRN Q6HRS PRN PEG ITCHING Last administered on 07/11/20at 19:52; Start 07/10/20 at 19:15 Lorazepam (Ativan Inj) 1 mg PRN Q6HRS PRN IVP ANXIETY / AGITATION Last administered on 07/11/20at 05:21; Start 07/11/20 at 05:15; Stop 07/11/20 at 09:07; Status DC Zolpidem Tartrate (Ambien) 2.5 mg HS PO Last administered on 07/11/20at 19:52; Start 07/11/20 at 21:00; Stop 07/12/20 at 09:57; Status DC Diphenhydramine HCl (Benadryl) 50 mg PRN Q6HRS PRN IVP itching/insomina Last administered on 07/12/20at 20:39; Start 07/12/20 at 01:00 Haloperidol Lactate (Haldol Inj) 5 mg PRN Q6HRS PRN IVP AGITATION Last administered on 07/12/20at 23:49; Start 07/12/20 at 01:00 Zolpidem Tartrate (Ambien) 5 mg HS PO Last administered on 07/12/20at 20:28; Start 07/12/20 at 21:00 Lorazepam (Ativan) 1 mg PRN Q6HRS PRN PO ANXIETY / AGITATION Last administered on 07/13/20at 01:45; Start 07/12/20 at 10:00 Fluconazole (Diflucan) 150 mg 1X ONCE PO ; Start 07/12/20 at 16:30; Stop 07/12/20 at 16:31; Status Cancel Clotrimazole (Mycelex-7) 1 reji HS VG Last administered on 07/12/20at 16:42; Start 07/12/20 at 21:00; Stop 07/19/20 at 20:59 Potassium Bicarbonate (Potassium Effervescent Tablet) 30 meq 1X ONCE PEG Last administered on 07/13/20at 09:43; Start 07/13/20 at 09:00; Stop 07/13/20 at 09:01 ; Status DC Active Scripts Active Reported Acetaminophen-Diphenhyd 500-25 (Acetaminophen/Diphenhydramine) 1 Each Tablet 1 Each PO HS PRN Naproxen 500 Mg Tablet 1 Tab PO BID PRN 30 Days Tramadol Hcl 50 Mg Tablet 50 Mg PO Q4HRS Levothyroxine Sodium 75 Mcg Tablet 1 Tab PO DAILY Adderall 20 Mg Tablet (Dextroamphetamine/Amphetamine) 20 Mg Tablet 1 Tab PO DAILY MDD 1 Tablet(s) 5 Days Prozac (Fluoxetine Hcl) 20 Mg Capsule 1 Cap PO DAILYWBKFT Vitals/I & O Vital Sign - Last 24 Hours 07/12/20 07/12/20 07/12/20 07/12/20 10:09 10:10 10:10 11:00 Temp 97.6 97.6 Pulse 99 99 99 103 Resp 20 B/P (MAP) 106/75 106/75 106/75 Pulse Ox 95 O2 Delivery Tracheal Collar 07/12/20 07/12/20 07/12/20 07/12/20 15:00 15:34 16:13 19:00 Temp 98.0 98.8 98.0 98.8 Pulse 98 98 99 Resp 18 18 B/P (MAP) 143/119 (127) 143/119 134/64 (87) Pulse Ox 99 98 99 O2 Delivery Tracheal Collar Tracheal Collar Tracheal Collar O2 Flow Rate 8.0 107/12/20 07/12/20 07/12/20 20:00 20:07 20:27 20:27 Pulse 88 Resp 18 B/P (MAP) 144/98 Pulse Ox 96 96 O2 Delivery Trach Collar Tracheal Collar O2 Flow Rate 8.0 8.0 8.0 07/12/20 07/12/20 07/13/20 07/13/20 20:57 23:00 02:23 07:00 Temp 98.5 98.1 98.0 98.5 98.1 98.0 Pulse 66 71 64 Resp 18 18 18 16 B/P (MAP) 107/60 (76) 129/68 (88) 109/44 (65) Pulse Ox 96 94 95 99 O2 Delivery Tracheal Collar Tracheal Collar Room Air O2 Flow Rate 8.0 07/13/20 07/13/20 07/13/20 07/13/20 07:15 09:44 09:44 09:45 Pulse 64 64 64 B/P (MAP) 109/44 109/44 109/44 Pulse Ox 97 O2 Delivery Tracheal Collar O2 Flow Rate 8.0 Intake and Output 07/12/20 07/12/20 07/13/20 14:59 22:59 06:59 Intake Total 100 ml 100 ml 690 ml Balance 100 ml 100 ml 690 ml Justicifation of Admission Dx: Justifications for Admission: Justification of Admission Dx: N/A ARIELA BOTELLO MD Jul 13, 2020 10:09
--- NOTE | 2020-07-13 10:10 | PDOC ---
Date of Service: DATE: 07/13/20 TIME: 10:09 Objective: Objective: D/w nurse and nutrition - rate @40cc/hr, residuals ~100cc each time checked, no vomiting, scooting all around bed. Vital Signs: Vital Signs Date Time Temp Pulse Resp B/P (MAP) Pulse Ox O2 Delivery O2 Flow Rate FiO2 07/13/20 09:45 64 109/44 07/13/20 07:15 97 Tracheal Collar 8.0 07/13/20 07:00 98.0 16 98.0 Labs: Laboratory Tests Test 07/12/20 19:45 07/13/20 01:27 07/13/20 05:35 White Blood Count 13.0 x10^3/uL Red Blood Count 4.44 x10^6/uL Hemoglobin 13.0 g/dL Hematocrit 39.6 % Mean Corpuscular Volume 89 fL Mean Corpuscular Hemoglobin 29 pg Mean Corpuscular Hemoglobin Concent 33 g/dL Red Cell Distribution Width 13.3 % Platelet Count 399 x10^3/uL Neutrophils (%) (Auto) 73 % Lymphocytes (%) (Auto) 18 % Monocytes (%) (Auto) 6 % Eosinophils (%) (Auto) 3 % Basophils (%) (Auto) 1 % Neutrophils # (Auto) 9.5 x10^3/uL Lymphocytes # (Auto) 2.4 x10^3/uL Monocytes # (Auto) 0.8 x10^3/uL Eosinophils # (Auto) 0.3 x10^3/uL Basophils # (Auto) 0.1 x10^3/uL Sodium Level 146 mmol/L Potassium Level 3.2 mmol/L Chloride Level 107 mmol/L Carbon Dioxide Level 25 mmol/L Anion Gap 14 Blood Urea Nitrogen 23 mg/dL Creatinine 0.7 mg/dL Estimated GFR (Cockcroft-Gault) 86.2 BUN/Creatinine Ratio 33 Glucose Level 108 mg/dL Calcium Level 9.9 mg/dL Total Bilirubin 0.7 mg/dL Aspartate Amino Transf (AST/SGOT) 34 U/L Alanine Aminotransferase (ALT/SGPT) 33 U/L Alkaline Phosphatase 89 U/L Total Protein 7.9 g/dL Albumin 3.5 g/dL Albumin/Globulin Ratio 0.8 Glucose (Fingerstick) 101 mg/dL 114 mg/dL PE: GEN: NAD LUNGS: trach/collar HEART: RRR ABD: soft, non-distended, PEG in place NEURO/PSYCH: calm when I saw A/P: Anoxic encephalopathy s/p trach and PEG -- Continue same per GI, could consider Reglan re: residuals. Justicifation of Admission Dx: Justifications for Admission: Justification of Admission Dx: N/A SHAHBAZ FOSS Jul 13, 2020 10:10
--- NOTE | 2020-07-13 10:45 | NUR ---
SW following for discharge planning. Spoke with RN and reviewed chart. Tach cap today with possible removal next week. SW spoke with spouse and he would like a family meeting with this SW and his sons. Spouse to coordinate a time next week and SW will be available. Possible SNU referrals next week pending family meeting and pt's care needs. SW following.
[2020-07-13 11:00] VITALS: BP 96/34
--- NOTE | 2020-07-13 11:06 | PDOC ---
PULMONARY PROGRESS NOTES DATE: 07/13/20 TIME: 11:02 Subjective Patient with anoxic brain injury, at times more responsive than others. Appears to be comfortable S/P cardiac arrest 06/17 S/P trach on 06/26 ----- S/P peg 06/27 Vitals Vital Signs Date Time Temp Pulse Resp B/P (MAP) Pulse Ox O2 Delivery O2 Flow Rate FiO2 07/13/20 09:45 64 109/44 07/13/20 07:15 97 Tracheal Collar 8.0 07/13/20 07:00 98.0 16 98.0 Comments Unable to report review of systems secondary to clinical state Lungs: Clear Cardiovascular: S1, S2 Abdomen: Soft, Non-tender Extremities: No Edema Skin: Warm Labs Laboratory Tests Test 07/11/20 12:21 07/11/20 18:51 07/11/20 23:53 07/12/20 19:45 Glucose (Fingerstick) 98 mg/dL (70-99) 105 mg/dL (70-99) 96 mg/dL (70-99) White Blood Count 13.0 x10^3/uL (4.0-11.0) Red Blood Count 4.44 x10^6/uL (3.50-5.40) Hemoglobin 13.0 g/dL (12.0-15.5) Hematocrit 39.6 % (36.0-47.0) Mean Corpuscular Volume 89 fL (79-100) Mean Corpuscular Hemoglobin 29 pg (25-35) Mean Corpuscular Hemoglobin Concent 33 g/dL (31-37) Red Cell Distribution Width 13.3 % (11.5-14.5) Platelet Count 399 x10^3/uL (140-400) Neutrophils (%) (Auto) 73 % (31-73) Lymphocytes (%) (Auto) 18 % (24-48) Monocytes (%) (Auto) 6 % (0-9) Eosinophils (%) (Auto) 3 % (0-3) Basophils (%) (Auto) 1 % (0-3) Neutrophils # (Auto) 9.5 x10^3/uL (1.8-7.7) Lymphocytes # (Auto) 2.4 x10^3/uL (1.0-4.8) Monocytes # (Auto) 0.8 x10^3/uL (0.0-1.1) Eosinophils # (Auto) 0.3 x10^3/uL (0.0-0.7) Basophils # (Auto) 0.1 x10^3/uL (0.0-0.2) Sodium Level 146 mmol/L (136-145) Potassium Level 3.2 mmol/L (3.5-5.1) Chloride Level 107 mmol/L (98-107) Carbon Dioxide Level 25 mmol/L (21-32) Anion Gap 14 (6-14) Blood Urea Nitrogen 23 mg/dL (7-20) Creatinine 0.7 mg/dL (0.6-1.0) Estimated GFR (Cockcroft-Gault) 86.2 BUN/Creatinine Ratio 33 (6-20) Glucose Level 108 mg/dL (70-99) Calcium Level 9.9 mg/dL (8.5-10.1) Total Bilirubin 0.7 mg/dL (0.2-1.0) Aspartate Amino Transf (AST/SGOT) 34 U/L (15-37) Alanine Aminotransferase (ALT/SGPT) 33 U/L (14-59) Alkaline Phosphatase 89 U/L (46-116) Total Protein 7.9 g/dL (6.4-8.2) Albumin 3.5 g/dL (3.4-5.0) Albumin/Globulin Ratio 0.8 (1.0-1.7) Test 07/13/20 01:27 07/13/20 05:35 Glucose (Fingerstick) 101 mg/dL (70-99) 114 mg/dL (70-99) Laboratory Tests Test 07/12/20 19:45 07/13/20 01:27 07/13/20 05:35 White Blood Count 13.0 x10^3/uL (4.0-11.0) Red Blood Count 4.44 x10^6/uL (3.50-5.40) Hemoglobin 13.0 g/dL (12.0-15.5) Hematocrit 39.6 % (36.0-47.0) Mean Corpuscular Volume 89 fL (79-100) Mean Corpuscular Hemoglobin 29 pg (25-35) Mean Corpuscular Hemoglobin Concent 33 g/dL (31-37) Red Cell Distribution Width 13.3 % (11.5-14.5) Platelet Count 399 x10^3/uL (140-400) Neutrophils (%) (Auto) 73 % (31-73) Lymphocytes (%) (Auto) 18 % (24-48) Monocytes (%) (Auto) 6 % (0-9) Eosinophils (%) (Auto) 3 % (0-3) Basophils (%) (Auto) 1 % (0-3) Neutrophils # (Auto) 9.5 x10^3/uL (1.8-7.7) Lymphocytes # (Auto) 2.4 x10^3/uL (1.0-4.8) Monocytes # (Auto) 0.8 x10^3/uL (0.0-1.1) Eosinophils # (Auto) 0.3 x10^3/uL (0.0-0.7) Basophils # (Auto) 0.1 x10^3/uL (0.0-0.2) Sodium Level 146 mmol/L (136-145) Potassium Level 3.2 mmol/L (3.5-5.1) Chloride Level 107 mmol/L (98-107) Carbon Dioxide Level 25 mmol/L (21-32) Anion Gap 14 (6-14) Blood Urea Nitrogen 23 mg/dL (7-20) Creatinine 0.7 mg/dL (0.6-1.0) Estimated GFR (Cockcroft-Gault) 86.2 BUN/Creatinine Ratio 33 (6-20) Glucose Level 108 mg/dL (70-99) Calcium Level 9.9 mg/dL (8.5-10.1) Total Bilirubin 0.7 mg/dL (0.2-1.0) Aspartate Amino Transf (AST/SGOT) 34 U/L (15-37) Alanine Aminotransferase (ALT/SGPT) 33 U/L (14-59) Alkaline Phosphatase 89 U/L (46-116) Total Protein 7.9 g/dL (6.4-8.2) Albumin 3.5 g/dL (3.4-5.0) Albumin/Globulin Ratio 0.8 (1.0-1.7) Glucose (Fingerstick) 101 mg/dL (70-99) 114 mg/dL (70-99) Medications Active Scripts Medications Dose Route/Sig Max Daily Dose Days Date Category Acetaminophen-Diphenhyd 500-25 (Acetaminophen/Diphenhydramine) 1 Each Tablet 1 Each PO HS PRN 06/18/20 Reported Naproxen 500 Mg Tablet 1 Tab PO BID PRN 30 06/18/20 Reported Tramadol Hcl 50 Mg Tablet 50 Mg PO Q4HRS 06/18/20 Reported Levothyroxine Sodium 75 Mcg Tablet 1 Tab PO DAILY 06/18/20 Reported Adderall 20 Mg Tablet (Dextroamphetamine/Amphetamine) 20 Mg Tablet 1 Tab PO DAILY MDD 1 Tablet(s) 5 06/18/20 Reported Prozac (Fluoxetine Hcl) 20 Mg Capsule 1 Cap PO DAILYWBKFT 06/18/20 Reported Comments CXR IMPRESSION: Left lung base opacities likely consolidative process such as pneumonia. Small left pleural effusion. Impression . IMPRESSION: 1. Acute respiratory failure secondary to [id number] cardiopulmonary arrest 2. Csu-tb-zpzcxnsh ventricular fibrillation and asystole leading to anoxic brain injury. 3. Anoxic encephalopathy 4. COVID neg 5. Morbid obesity. 6. Leukocytosis--improved 7. Lactic acidosis secondary to fkc-yl-rymsyfwi cardiac arrest. 8. Abnormal x-ray revealing bibasilar atelectasis, infiltrates. 9. Pneumothorax secondary to CPR.resolved 10. Sternal sternal fracture secondary to CPR. 11. Pneumonia positive, gram-negative, gram-positive. 12. UTI 13. Status post trach Plan . Mental status at times better than others, We will downsize trach to 6 uncuffed Shiley Continue supplemental oxygen via trach shield to keep oxygen saturations greater than 92%, currently on 35% Trach 06/26/20, PEG on 06/27/20 Follow infectious disease recommendations in regards to antibiotics, D/C Augmentin Follow neurology recs--no new recommendations Follow Cardiology recs-- post cardiac cath 06/25/20-- cath was clean w/ normal filling pressures Continue tube feeding for nutritional support DVT/GI PPX Disposition :suspect patient may moved to's new, suspect she may be D cannulated in couple of days PT. is FULL CODE NIKA GARNER MD Jul 13, 2020 11:06
[2020-07-13] MEDS ORDERED: IV NORMAL SALINE 1000ML BAG 1,000 ML IV ONE (12:00)
[2020-07-13] MEDS ORDERED: HALOPERIDOL LACTATE 5 MG/ML VIAL. IVP ONE (12:00)
[2020-07-13 15:00] VITALS: BP 110/60
[2020-07-13 19:00] VITALS: BP 125/62
[2020-07-13] MEDS: CLOTRIMAZOLE 1% VAGINAL CREAM 45GM TUBE. VG SCH (21:42)
[2020-07-13] MEDS: ENOXAPARIN 40 MG/0.4 ML SYRINGE. SQ SCH (21:43)
[2020-07-13] MEDS: ATORVASTATIN CALCIUM 20 MG TABLET PO SCH (21:43)
[2020-07-13] MEDS: FAMOTIDINE 20 MG TABLET. GT SCH (21:43)
[2020-07-13] MEDS: ZOLPIDEM 5 MG TABLET. PO SCH (21:43)
[2020-07-13 23:00] VITALS: BP 102/51
[2020-07-14] MEDS: HALOPERIDOL LACTATE 5 MG/ML VIAL. IVP PRN (00:49)
[2020-07-14 03:00] VITALS: BP 129/70
[2020-07-14] MEDS: LEVOTHYROXINE 75 MCG TABLET PO SCH (06:13)
[2020-07-14 07:00] VITALS: BP 112/60
[2020-07-14] MEDS: IPRATRPIUM/ALBUTEROL 0.5/2.5MG 3 ML NEBU. NEB SCH ×4 (07:26→20:50)
[2020-07-14] MEDS: LISINOPRIL 20 MG TABLET PO SCH ×2 (09:24→21:28)
[2020-07-14] MEDS: CARVEDILOL 3.125 MG TABLET. PO SCH ×2 (09:24→17:17)
[2020-07-14] MEDS: ASPIRIN CHEWABLE 81 MG TABLET. PO SCH (09:25)
[2020-07-14] MEDS: AMIODARONE HCL 200 MG TABLET. PO SCH (09:25)
--- NOTE | 2020-07-14 10:51 | PDOC ---
PULMONARY PROGRESS NOTES DATE: 07/14/20 TIME: 10:49 Subjective Eyes open today, tracking Appears to be comfortable Trach is capped on room air S/P cardiac arrest 06/17 S/P trach on 06/26 ----- S/P peg 06/27 Vitals Vital Signs Date Time Temp Pulse Resp B/P (MAP) Pulse Ox O2 Delivery O2 Flow Rate FiO2 07/14/20 09:25 75 112/60 07/14/20 07:29 98 Tracheal Collar 8.0 07/14/20 07:00 97.7 20 97.7 Comments Nonverbal Lungs: Clear Cardiovascular: S1, S2 Abdomen: Soft, Non-tender Extremities: No Edema Skin: Warm Labs Laboratory Tests Test 07/12/20 19:45 07/13/20 01:27 07/13/20 05:35 07/13/20 12:00 White Blood Count 13.0 x10^3/uL (4.0-11.0) Red Blood Count 4.44 x10^6/uL (3.50-5.40) Hemoglobin 13.0 g/dL (12.0-15.5) Hematocrit 39.6 % (36.0-47.0) Mean Corpuscular Volume 89 fL (79-100) Mean Corpuscular Hemoglobin 29 pg (25-35) Mean Corpuscular Hemoglobin Concent 33 g/dL (31-37) Red Cell Distribution Width 13.3 % (11.5-14.5) Platelet Count 399 x10^3/uL (140-400) Neutrophils (%) (Auto) 73 % (31-73) Lymphocytes (%) (Auto) 18 % (24-48) Monocytes (%) (Auto) 6 % (0-9) Eosinophils (%) (Auto) 3 % (0-3) Basophils (%) (Auto) 1 % (0-3) Neutrophils # (Auto) 9.5 x10^3/uL (1.8-7.7) Lymphocytes # (Auto) 2.4 x10^3/uL (1.0-4.8) Monocytes # (Auto) 0.8 x10^3/uL (0.0-1.1) Eosinophils # (Auto) 0.3 x10^3/uL (0.0-0.7) Basophils # (Auto) 0.1 x10^3/uL (0.0-0.2) Sodium Level 146 mmol/L (136-145) Potassium Level 3.2 mmol/L (3.5-5.1) Chloride Level 107 mmol/L (98-107) Carbon Dioxide Level 25 mmol/L (21-32) Anion Gap 14 (6-14) Blood Urea Nitrogen 23 mg/dL (7-20) Creatinine 0.7 mg/dL (0.6-1.0) Estimated GFR (Cockcroft-Gault) 86.2 BUN/Creatinine Ratio 33 (6-20) Glucose Level 108 mg/dL (70-99) Calcium Level 9.9 mg/dL (8.5-10.1) Total Bilirubin 0.7 mg/dL (0.2-1.0) Aspartate Amino Transf (AST/SGOT) 34 U/L (15-37) Alanine Aminotransferase (ALT/SGPT) 33 U/L (14-59) Alkaline Phosphatase 89 U/L (46-116) Total Protein 7.9 g/dL (6.4-8.2) Albumin 3.5 g/dL (3.4-5.0) Albumin/Globulin Ratio 0.8 (1.0-1.7) Glucose (Fingerstick) 101 mg/dL (70-99) 114 mg/dL (70-99) 113 mg/dL (70-99) Test 07/14/20 00:24 07/14/20 06:08 Glucose (Fingerstick) 122 mg/dL (70-99) 123 mg/dL (70-99) Laboratory Tests Test 07/13/20 12:00 07/14/20 00:24 07/14/20 06:08 Glucose (Fingerstick) 113 mg/dL (70-99) 122 mg/dL (70-99) 123 mg/dL (70-99) Medications Active Scripts Medications Dose Route/Sig Max Daily Dose Days Date Category Acetaminophen-Diphenhyd 500-25 (Acetaminophen/Diphenhydramine) 1 Each Tablet 1 Each PO HS PRN 06/18/20 Reported Naproxen 500 Mg Tablet 1 Tab PO BID PRN 30 06/18/20 Reported Tramadol Hcl 50 Mg Tablet 50 Mg PO Q4HRS 06/18/20 Reported Levothyroxine Sodium 75 Mcg Tablet 1 Tab PO DAILY 06/18/20 Reported Adderall 20 Mg Tablet (Dextroamphetamine/Amphetamine) 20 Mg Tablet 1 Tab PO DAILY MDD 1 Tablet(s) 5 06/18/20 Reported Prozac (Fluoxetine Hcl) 20 Mg Capsule 1 Cap PO DAILYWBKFT 06/18/20 Reported Comments CXR IMPRESSION: Left lung base opacities likely consolidative process such as pneumonia. Small left pleural effusion. Impression . IMPRESSION: 1. Acute respiratory failure secondary to lru-wo-yuskfqml cardiopulmonary arrest 2. Wit-uc-kkvqkctp ventricular fibrillation and asystole leading to anoxic brain injury. 3. Anoxic encephalopathy 4. COVID neg 5. Morbid obesity. 6. Leukocytosis--improved 7. Lactic acidosis secondary to uwg-pe-virqkxxy cardiac arrest. 8. Abnormal x-ray revealing bibasilar atelectasis, infiltrates. 9. Pneumothorax secondary to CPR.resolved 10. Sternal sternal fracture secondary to CPR. 11. Pneumonia positive, gram-negative, gram-positive. 12. UTI 13. Status post trach Plan . Continue supplemental oxygen via trach shield to keep oxygen saturations greater than 92%, trach is now capped, For 24 hours to assess for the ability to decannulate, currently on room air Trach downsized to a #6 Shiley on 07/13/20 DC Ativan, use Haldol Trach 06/26/20, PEG on 06/27/20 Follow infectious disease recommendations in regards to antibiotics--currently off antibiotics Follow neurology recs--no new recommendations Follow Cardiology recs-- post cardiac cath 06/25/20-- cath was clean w/ normal filling pressures Continue tube feeding for nutritional support DVT/GI PPX PT. is FULL CODE NIKA GARNER MD Jul 14, 2020 10:51
--- NOTE | 2020-07-14 11:03 | PDOC ---
PROGRESS NOTES Date of Service: DATE: 07/14/20 TIME: 11:03 Chief Complaint Chief Complaint IMPRESSION POST covid cardiomyopathy acute systolic CHF Severe NICM: EF 25%. No significant CAD per [facility] anoxic brain injury Cardiac arrest with resuscitation and probable pneumonia, sternal fracture and pneumothorax secondary to CPR, leukocytosis, electrolyte disturbance, hypokalemia, lactic acidosis, elevated troponin. 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 No significant change overnight, still no purposeful movements. Sounds as though family still plans to hold off on any change in CODE STATUS or goals of care until at least 30 days after admission date. did show me some video of patient smiling and having meaningful exchange with a family friend today. 07/07. Transfer out of ICU to the medical floors. Discussed with , he feels that music is helping patient. She will occasionally check in with eyes, but no purposeful movements. Has been mentioned trying to give 30 days for admission to show any signs of meaningful improvement. At which time decision will be made about hospice in future goals of care. 07/06, will transfer to floor, no tele, off vent now for some time. discussed with , she does seem improved, she had a tiny smile to some music earlier, still not following commands or any purposeful response 07/05, about the same, discussed my previous thoughts again with and son, not following commands, movement is seeming to be mostly reflexive. they still want to cont iwth the 30 days plan to give her a chance to improve. I discussed possible transition to hospice, they want to wait until that time. 07/04-, minmal change, some relfexive movements, had a video of her withdrawing to light touch to face, soem work with PT, not following commands as directed I discussed poor prognosis with at length, that as days go by, her chances for meaningful recovery continue to dim. I discussed consideration of hospice care. 07/03/2020, discussed plan with family at length yesterday Patient seen and examined in the ICU plan LTAC start PT and OT moving around a lot She is still not very responsive but at the same time kind of agitated Vitals Vitals Vital Signs Date Time Temp Pulse Resp B/P (MAP) Pulse Ox O2 Delivery O2 Flow Rate FiO2 07/14/20 09:25 75 112/60 07/14/20 07:29 98 Tracheal Collar 8.0 07/14/20 07:00 97.7 20 97.7 Physical Exam Physical Exam GENERAL: Opens eyes transiently, does not follow any commands, Moving arms and legs, not thrusting tongue HEENT: Both pupils are round and reacting. No conjunctival lesion. NECK: Supple. Trach present, erythema and drainage present around trach site improving LUNGS: Decreased breath sounds bilaterally. HEART: S1, S2, regular. No gallop or murmur. ABDOMEN: Soft, nontender. No organomegaly.peg tube + fecal tube , Jolly present EXTREMITIES: No edema or cyanosis. toe amputation of the Rt foot,healed scars SKIN: Unremarkable. NEUROLOGICAL: Opens eyes transiently does not follow any commands, LAUGHS when talking to family General: Cooperative, No acute distress, mild distress Heart: Regular rate, Normal S1, Normal S2 Lungs: Clear Abdomen: Normal bowel sounds, Soft, No tenderness, No masses Extremities: No cyanosis Skin: No rashes, No breakdown Labs LABS Laboratory Tests Test 07/13/20 12:00 07/14/20 00:24 07/14/20 06:08 Glucose (Fingerstick) 113 mg/dL (70-99) 122 mg/dL (70-99) 123 mg/dL (70-99) Assessment and Plan Assessmemt and Plan Problems Medical Problems: (1) Cardiac arrest Status: Acute (2) Fracture of ribs, multiple Status: Acute (3) Hyperglycemia Status: Acute (4) Pneumonia Status: Acute (5) Pneumothorax, right Status: Acute (6) Sternal fracture Status: Acute (7) VF (ventricular fibrillation) Status: Acute Comment Review of Relevant I have reviewed the following items afua (where applicable) has been applied. Labs Laboratory Tests Test 07/12/20 19:45 07/13/20 01:27 07/13/20 05:35 07/13/20 12:00 White Blood Count 13.0 x10^3/uL (4.0-11.0) Red Blood Count 4.44 x10^6/uL (3.50-5.40) Hemoglobin 13.0 g/dL (12.0-15.5) Hematocrit 39.6 % (36.0-47.0) Mean Corpuscular Volume 89 fL (79-100) Mean Corpuscular Hemoglobin 29 pg (25-35) Mean Corpuscular Hemoglobin Concent 33 g/dL (31-37) Red Cell Distribution Width 13.3 % (11.5-14.5) Platelet Count 399 x10^3/uL (140-400) Neutrophils (%) (Auto) 73 % (31-73) Lymphocytes (%) (Auto) 18 % (24-48) Monocytes (%) (Auto) 6 % (0-9) Eosinophils (%) (Auto) 3 % (0-3) Basophils (%) (Auto) 1 % (0-3) Neutrophils # (Auto) 9.5 x10^3/uL (1.8-7.7) Lymphocytes # (Auto) 2.4 x10^3/uL (1.0-4.8) Monocytes # (Auto) 0.8 x10^3/uL (0.0-1.1) Eosinophils # (Auto) 0.3 x10^3/uL (0.0-0.7) Basophils # (Auto) 0.1 x10^3/uL (0.0-0.2) Sodium Level 146 mmol/L (136-145) Potassium Level 3.2 mmol/L (3.5-5.1) Chloride Level 107 mmol/L (98-107) Carbon Dioxide Level 25 mmol/L (21-32) Anion Gap 14 (6-14) Blood Urea Nitrogen 23 mg/dL (7-20) Creatinine 0.7 mg/dL (0.6-1.0) Estimated GFR (Cockcroft-Gault) 86.2 BUN/Creatinine Ratio 33 (6-20) Glucose Level 108 mg/dL (70-99) Calcium Level 9.9 mg/dL (8.5-10.1) Total Bilirubin 0.7 mg/dL (0.2-1.0) Aspartate Amino Transf (AST/SGOT) 34 U/L (15-37) Alanine Aminotransferase (ALT/SGPT) 33 U/L (14-59) Alkaline Phosphatase 89 U/L (46-116) Total Protein 7.9 g/dL (6.4-8.2) Albumin 3.5 g/dL (3.4-5.0) Albumin/Globulin Ratio 0.8 (1.0-1.7) Glucose (Fingerstick) 101 mg/dL (70-99) 114 mg/dL (70-99) 113 mg/dL (70-99) Test 07/14/20 00:24 07/14/20 06:08 Glucose (Fingerstick) 122 mg/dL (70-99) 123 mg/dL (70-99) Laboratory Tests Test 07/13/20 12:00 07/14/20 00:24 07/14/20 06:08 Glucose (Fingerstick) 113 mg/dL (70-99) 122 mg/dL (70-99) 123 mg/dL (70-99) Microbiology 07/10/20 Urine Culture - Final, Complete 06/30/20 Gram Stain - Final, Complete 06/30/20 Aerobic and Anaerobic Culture - Final, Complete 06/17/20 Blood Culture - Final, Complete NO GROWTH AFTER 5 DAYS Medications Current Medications Amiodarone HCl 150 mg/Dextrose 103 ml @ 618 mls/hr 1X ONCE IV Last administered on 06/17/20at 07:00; Start 06/17/20 at 07:00; Stop 06/17/20 at 07:09; Status DC Amiodarone HCl 450 mg/Dextrose 259 ml @ 33 mls/hr 1X ONCE IV ; Start 06/17/20 at 07:00; Stop 06/17/20 at 14:50; Status DC Sodium Chloride 1,000 ml @ 1,000 mls/hr 1X ONCE IV Last administered on 06/17/20at 08:11; Start 06/17/20 at 07:15; Stop 06/17/20 at 08:14; Status DC Midazolam HCl 100 ml @ 0 mls/hr 1X ONCE IV ; Start 06/17/20 at 07:15; Stop 06/17/20 at 07:16; Status DC Midazolam HCl (Versed) 5 mg STK-MED ONCE .ROUTE ; Start 06/17/20 at 07:17; Stop 06/17/20 at 07:17; Status DC Iohexol (Omnipaque 300 Mg/ml) 75 ml 1X ONCE IV Last administered on 06/17/20at 08:17; Start 06/17/20 at 08:15; Stop 06/17/20 at 08:16; Status DC Iohexol (Omnipaque 350 Mg/ml) 100 ml 1X ONCE IV Last administered on 06/17/20at 08:17; Start 06/17/20 at 08:15; Stop 06/17/20 at 08:16; Status DC Info (CONTRAST GIVEN -- Rx MONITORING) 1 each PRN DAILY PRN MC SEE COMMENTS; Start 06/17/20 at 08:15; Stop 06/19/20 at 08:14; Status DC Sodium Chloride 1,000 ml @ 1,000 mls/hr 1X ONCE IV Last administered on 06/17/20at 08:25; Start 06/17/20 at 08:15; Stop 06/17/20 at 09:14; Status DC Potassium Chloride/Water 100 ml @ 50 mls/hr 1X ONCE IV Last administered on 06/17/20at 10:16; Start 06/17/20 at 09:00; Stop 06/17/20 at 10:59; Status DC Piperacillin Sod/ Tazobactam Sod (Zosyn Per Pharmacy) 1 each PRN DAILY PRN MC SEE COMMENTS; Start 06/17/20 at 08:45; Stop 06/27/20 at 11:36; Status DC Piperacillin Sod/ Tazobactam Sod 4.5 gm/Sodium Chloride 100 ml @ 200 mls/hr 1X ONCE IV Last administered on 06/17/20at 10:15; Start 06/17/20 at 08:45; Stop 06/17 at 09:14; Status DC Sodium Chloride 1,000 ml @ 125 mls/hr Q8H IV Last administered on 06/17/20at 23:39; Start 06/17/20 at 09:00; Stop 06/18/20 at 08:59; Status DC Propofol (Diprivan) 200 mg 1X ONCE IV Last administered on 06/17/20at 09:00; Start 06/17/20 at 09:00; Stop 06/17/20 at 09:01; Status DC Propofol 100 ml @ As Directed STK-MED ONCE IV ; Start 06/17/20 at 09:05; Stop 06/17/20 at 09:05; Status DC Lidocaine HCl (Lidocaine 1% 20ml Vial) 20 ml 1X ONCE INJ Last administered on 06/17/20at 09:15; Start 06/17/20 at 09:15; Stop 06/17/20 at 09:20; Status DC Lidocaine HCl (Xylocaine-Mpf 1% 5ml Vial) 5 ml STK-MED ONCE .ROUTE ; Start at 09:26; Stop 06/17/20 at 09:26; Status DC Sodium Chloride 1,000 ml @ 1,000 mls/hr 1X ONCE IV Last administered on 06/17at 10:15; Start 06/17/20 at 10:15; Stop 06/17/20 at 11:14; Status DC Propofol 100 ml @ 3.819 mls/ hr CONT PRN IV PER PROTOCOL Last administered on 06/25/20at 06:12; Start 06/17/20 at 10:45; Stop 06/29/20 at 11:47; Status DC Fentanyl Citrate (Fentanyl 2ml Vial) 100 mcg 1X ONCE IV ; Start 06/17/20 at 12:00; Stop 06/17/20 at 12:39; Status DC Midazolam HCl (Versed) 2 mg 1X ONCE IV ; Start 06/17/20 at 12:00; Stop 06/17/20 at 12:39; Status DC Magnesium Sulfate/ Dextrose 100 ml @ 100 mls/hr 1X ONCE IV Last administered on 06/17/20at 12:22; Start 06/17/20 at 12:00; Stop 06/17/20 at 12:39; Status DC Buspirone HCl (Buspar) 30 mg Q8H NG Last administered on 06/17/20at 12:31; Start 06/17/20 at 12:00; Stop 06/17/20 at 12:39; Status DC Glycerin/ Hypromellose/ Polyethylene (Artificial Tears) 1 drop Q6HRS OU ; Start 06/17/20 at 12:00; Stop 06/17/20 at 12:39; Status DC Glycerin/ Hypromellose/ Polyethylene (Artificial Tears) 1 drop PRN Q15MIN PRN OU DRY EYE; Start 06/17/20 at 12:00; Stop 06/17/20 at 12:39; Status DC Heparin Sodium (Porcine) (Heparin Sodium) 5,000 unit BID SQ ; Start 06/17/20 at 21:00; Stop 06/17/20 at 12:39; Status DC Pantoprazole Sodium (PROTONIX VIAL for IV PUSH) 40 mg DAILY IVP ; Start 06/18/20 at 09:00; Stop 06/17/20 at 12:39; Status DC Fentanyl Citrate 30 ml @ 0 mls/hr CONT PRN IV PER PROTOCOL.; Start 06/17/20 at 12:00; Stop 06/17/20 at 12:39; Status DC Propofol 100 ml @ 0 mls/hr CONT PRN IV PER PROTOCOL.; Start 06/17/20 at 12:00; Stop 06/17/20 at 12:39; Status DC Midazolam HCl 100 ml @ 0 mls/hr CONT PRN IV PER PROTOCOL; Start 06/17/20 at 12:00; Stop 06/17/20 at 12:39; Status DC Vecuronium [place] (Norcuron Bolus) 10 mg PRN Q1HR PRN IV SHIVERING; Start 06/17/20 at 12:00; Stop 06/17/20 at 12:39; Status DC Piperacillin Sod/ Tazobactam Sod 4.5 gm/Sodium Chloride 100 ml @ 200 mls/hr 1X ONCE IV ; Start 06/17/20 at 12:15; Stop 06/17/20 at 12:44; Status Cancel Midazolam HCl (Versed) 5 mg Q1HR PRN IV SEDATION Last administered on 06/29/20at 13:48; Start 06/17/20 at 12:45; Stop 07/08/20 at 12:59; Status DC Fentanyl Citrate (Fentanyl 2ml Vial) 100 mcg Q1HR IVP Last administered on 06/17/20at 18:55; Start 06/17/20 at 13:00; Stop 06/17/20 at 23:41; Status DC Piperacillin Sod/ Tazobactam Sod 3.375 gm/Sodium Chloride 50 ml @ 100 mls/hr Q6H IV Last administered on 06/27/20at 05:31; Start 06/17/20 at 16:00; Stop 06/27/20 at 11:30; Status DC Potassium Bicarbonate (Potassium Effervescent Tablet) 40 meq 1X ONCE NG Last administered on 06/18/20at 10:00; Start 06/18/20 at 09:45; Stop 06/18/20 at 09:48; Status DC Albuterol/ Ipratropium (Duoneb) 3 ml RTQID NEB Last administered on 07/14/20at 07:26; Start 06/18/20 at 20:00 Famotidine (Pepcid Vial) 20 mg BID IVP Last administered on 07/02/20at 08:05; Start 06/18/20 at 21:00; Stop 07/02/20 at 10:23; Status DC Enoxaparin Sodium (Lovenox 40mg Syringe) 40 mg Q24H SQ Last administered on 07/13/20at 21:43; Start 06/18/20 at 21:00 Levothyroxine Sodium (Synthroid) 75 mcg DAILY06 PO Last administered on 07/14/20at 06:13; Start 06/18/20 at 21:00 Fentanyl Citrate 30 ml @ 0 mls/hr CONT PRN IV SEE PROTOCOL Last administered on 06/28/20at 04:56; Start 06/18/20 at 20:15; Stop 06/29/20 at 11:47; Status DC Carvedilol (Coreg) 3.125 mg BIDWMEALS PO Last administered on 07/14/20at 09:24; Start 06/19/20 at 17:00 Atorvastatin Calcium (Lipitor) 20 mg QHS PO Last administered on 07/13/20at 21:43; Start 06/19/20 at 21:00 Aspirin (Aspirin Chewable) 81 mg DAILYWBKFT PO Last administered on 07/14/20at 09:25; Start 06/20/20 at 08:00 Aspirin (Aspirin Chewable) 81 mg 1X ONCE PO Last administered on 06/19/20at 15:57; Start 06/19/20 at 15:30; Stop 06/19/20 at 15:37; Status DC Potassium Chloride/Water 100 ml @ 100 mls/hr 1X ONCE IV Last administered on 06/19/20at 15:57; Start 06/19/20 at 15:30; Stop 06/19/20 at 16:29; Status DC Amiodarone HCl (Cordarone) 400 mg DAILY PO Last administered on 07/14/20at 09:25; Start 06/20/20 at 09:00 Furosemide (Lasix) 40 mg 1X ONCE IVP Last administered on 06/20/20at 14:38; St art 06/20/20 at 13:30; Stop 06/20/20 at 13:31; Status DC Potassium Chloride/Water 100 ml @ 100 mls/hr 1X ONCE IV Last administered on 06/20/20at 14:39; Start 06/20/20 at 13:30; Stop 06/20/20 at 14:29; Status DC Dexmedetomidine HCl 400 mcg/ Sodium Chloride 100 ml @ 0 mls/hr CONT PRN IV PER PROTOCOL Last administered on 06/29/20at 06:11; Start 06/21/20 at 10:45; Stop 06/29/20 at 11:47; Status DC Sodium Chloride 500 ml @ 500 mls/hr 1X PRN PRN IV SEE COMMENTS; Start 06/21/20 at 10:45 Atropine Sulfate (ATROPINE 0.5mg SYRINGE) 0.5 mg PRN Q5MIN PRN IV SEE COMMENTS; Start 06/21/20 at 10:45; Stop 06/29/20 at 11:47; Status DC Fentanyl Citrate (Fentanyl 2ml Vial) 50 mcg PRN Q2HR PRN IVP PAIN Last administered on 07/12/20at 20:27; Start 06/23/20 at 16:45 Midazolam HCl 100 ml @ 0 mls/hr CONT PRN IV SEE PROTOCOL Last administered on 06/28/20at 03:00; Start 06/25/20 at 11:45; Stop 06/29/20 at 11:47; Status DC Lidocaine HCl (Xylocaine-Mpf 1% 2ml Vial) 2 ml STK-MED ONCE .ROUTE ; Start 06/25/20 at 14:21; Stop 06/25/20 at 14:21; Status DC Iohexol (Omnipaque 300 Mg/ml) 100 ml STK-MED ONCE .ROUTE ; Start 06/25/20 at 14:21; Stop 06/25/20 at 14:21; Status DC Heparin Sodium/ Sodium Chloride 1,000 ml @ As Directed STK-MED ONCE .ROUTE ; Start 06/25/20 at 14:21; Stop 06/25/20 at 14:21; Status DC Heparin Sodium (Porcine) (Heparin Sodium) 10,000 unit STK-MED ONCE .ROUTE ; Start 06/25/20 at 14:31; Stop 06/25/20 at 14:31; Status DC Verapamil HCl (Verapamil) 5 mg STK-MED ONCE .ROUTE ; Start 06/25/20 at 14:31; Stop 06/25/20 at 14:31; Status DC Nitroglycerin (Nitroglycerin) 200 mcg STK-MED ONCE .ROUTE ; Start 06/25/20 at 14:31; Stop 06/25/20 at 14:31; Status DC Nitroglycerin (Nitroglycerin) 200 mcg 1X ONCE IART Last administered on 06/25/20at 15:09; Start 06/25/20 at 15:15; Stop 06/25/20 at 15:16; Status DC Verapamil HCl (Verapamil) 2.5 mg 1X ONCE IART Last administered on 06/25/20at 15:09; Start 06/25/20 at 15:15; Stop 06/25/20 at 15:16; Status DC Heparin Sodium (Porcine) (Heparin Sodium) 2,500 unit 1X ONCE IART Last administered on 06/25/20at 15:09; Start 06/25/20 at 15:15; Stop 06/25/20 at 15:16; Status DC Heparin Sodium/ Sodium Chloride (HEPARIN for ARTERIAL LINE FLUSH) 1,000 unit 1X ONCE IART Last administered on 06/25/20at 15:09; Start 06/25/20 at 15:15; Stop 06/25/20 at 15:16; Status DC Iohexol (Omnipaque 300 Mg/ml) 30 ml 1X ONCE IART Last administered on 06/25/20at 15:09; Start 06/25/20 at 15:15; Stop 06/25/20 at 15:16; Status DC Lidocaine HCl (Xylocaine-Mpf 1% 2ml Vial) 2 ml 1X ONCE INJ Last administered on 06/25/20at 15:09; Start 06/25/20 at 15:15; Stop 06/25/20 at 15:16; Status DC Amino Acids/ Glycerin/ Electrolytes 1,000 ml @ 80 mls/hr [id number] IV Last administered on 06/27/20at 20:50; Start 06/25/20 at 17:30; Stop 06/28/20 at 11:35; Status DC Potassium Chloride/Water 100 ml @ 100 mls/hr Q1H IV Last administered on 06/25/20at 18:46; Start 06/25/20 at 18:00; Stop 06/25/20 at 19:59; Status DC Rocuronium [place] (Zemuron) 50 mg STK-MED ONCE .ROUTE ; Start 06/26/20 at 11:37; Stop 06/26/20 at 11:38; Status DC Cellulose (Surgicel Fibrillar 1x2) 1 each STK-MED ONCE .ROUTE Last administered on 06/26/20at 13:20; Start 06/26/20 at 12:19; Stop 06/26/20 at 12:19; Status DC Bupivacaine HCl (Sensorcaine Mpf 0.5%) 30 ml STK-MED ONCE .ROUTE ; Start 06/26/20 at 12:19; Stop 06/26/20 at 12:19; Status DC Ondansetron HCl (Zofran) 4 mg STK-MED ONCE .ROUTE ; Start 06/26/20 at 13:13; Stop 06/26/20 at 13:13; Status DC Dexamethasone Sodium Phosphate (Decadron) 4 mg STK-MED ONCE .ROUTE ; Start 06/26/20 at 13:13; Stop 06/26/20 at 13:14; Status DC Cellulose (Surgicel Fibrillar 1x2) 1 each STK-MED ONCE .ROUTE Last administered on 06/26/20at 13:22; Start 06/26/20 at 13:25; Stop 06/26/20 at 13:25; Status DC Sevoflurane (Ultane) 30 ml STK-MED ONCE IH ; Start 06/26/20 at 13:37; Stop 06/26/20 at 13:38; Status DC Propofol (Diprivan) 200 mg STK-MED ONCE IV ; Start 06/26/20 at 13:38; Stop 06/26/20 at 13:38; Status DC Ringer's Solution 1,000 ml @ 30 mls/hr Q24H IV Last administered on 06/27/20at 08:39; Start 06/27/20 at 07:00; Stop 06/27/20 at 18:59; Status DC Prochlorperazine Edisylate (Compazine) 5 mg PACU PRN PRN IV NAUSEA, MRX1; Start 06/27/20 at 07:00; Stop 06/28/20 at 06:59; Status DC Propofol (Diprivan) 200 mg STK-MED ONCE IV ; Start 06/27/20 at 09:53; Stop 06/27/20 at 09:54; Status DC Lidocaine HCl (Lidocaine Pf 2% Vial) 5 ml STK-MED ONCE .ROUTE ; Start 06/27/20 at 09:54; Stop 06/27/20 at 09:54; Status DC Lisinopril (Prinivil) 5 mg DAILY PO Last administered on 07/04/20at 09:23; Start 06/29/20 at 09:00; Stop 07/04/20 at 14:46; Status DC Acetaminophen/ Hydrocodone Bitart (Lortab 7.5-325/ 15ml Oral Solution) 10 ml 1X ONCE PEG Last administered on 06/28/20at 12:37; Start 06/28/20 at 12:30; Stop 06/28/20 at 12:31; Status DC Piperacillin Sod/ Tazobactam Sod 3.375 gm/Sodium Chloride 50 ml @ 100 mls/hr Q6HRS IV Last administered on 07/07/20at 06:11; Start 06/29/20 at 10:00; Stop 07/07/20 at 09:51; Status DC Vecuronium [place] (Norcuron Bolus) 10 mg STK-MED ONCE IV ; Start 06/29/20 at 14:31; Stop 06/29/20 at 14:31; Status DC Propofol 100 ml @ 0 mls/hr CONT PRN IV PER PROTOCOL Last administered on 07/02/20at 07:26; Start 06/29/20 at 16:30; Stop 07/08/20 at 12:58; Status DC Vecuronium [place] (Norcuron Bolus) 10 mg 1X ONCE IV Last administered on 06/29/20at 14:31; Start 06/29/20 at 14:31; Stop 06/29/20 at 17:19; Status DC Daptomycin 400 mg/ Sodium Chloride 50 ml @ 100 mls/hr Q24H IV Last administered on 07/04/20at 09:25; Start 06/30/20 at 10:00; Stop 07/05/20 at 08:14; Status DC Famotidine (Pepcid) 20 mg QHS GT Last administered on 07/13/20at 21:43; Start 07/02/20 at 21:00 Haloperidol Lactate (Haldol Inj) 5 mg Q8HRS IVP Last administered on 07/03/20at 06:00; Start 07/02/20 at 14:00; Stop 07/03/20 at 12:40; Status DC Micafungin Sodium 100 mg/Dextrose 100 ml @ 100 mls/hr Q24H IV Last administ ered on 07/05/20at 08:04; Start 07/03/20 at 09:00; Stop 07/05/20 at 08:14; Status DC Alteplase, Recombinant (Cathflo For Central Catheter Clearance) 1 mg 1X ONCE INT CAT Last administered on 07/03/20at 08:45; Start 07/03/20 at 08:45; Stop 07/03/20 at 08:46; Status DC Haloperidol Lactate (Haldol Inj) 2.5 mg PRN Q6HRS PRN IVP AGITATION; Start 07/03/20 at 12:30; Stop 07/03/20 at 12:40; Status DC Haloperidol Lactate (Haldol Inj) 2.5 mg PRN Q6HRS PRN IVP AGITATION Last administered on 07/04/20at 01:04; Start 07/03/20 at 14:00; Stop 07/04/20 at 08:04; Status DC Haloperidol Lactate (Haldol Inj) 2.5 mg Q8HRS IVP ; Start 07/04/20 at 10:00; Stop 07/04/20 at 08:15; Status DC Haloperidol Lactate (Haldol Inj) 2.5 mg PRN Q8HRS PRN IVP AGITATION; Start 07/04/20 at 08:15; Stop 07/05/20 at 10:35; Status DC Lisinopril (Prinivil) 20 mg BID PO Last administered on 07/14/20at 09:24; Start 07/04/20 at 21:00 Haloperidol (Haldol) 0.5 mg PRN Q8HRS PRN PO AGITATION-2ND CHOICE Last administered on 07/12/20at 16:13; Start 07/05/20 at 10:45 Acetaminophen (Tylenol) 650 mg PRN Q6HRS PRN PO MILD PAIN / TEMP > 100.3'F Last administered on 07/09/20at 21:20; Start 07/06/20 at 13:30 Amoxicillin/ Clavulanate Potassium (Augmentin 875/ 125mg) 1 tab BID PO Last administered on 07/11/20at 19:59; Start 07/07/20 at 21:00; Stop 07/12/20 at 09:57; Status DC Diphenhydramine HCl (Benadryl Oral Elixir) 25 mg PRN Q6HRS PRN PEG ITCHING Last administered on 07/11/20at 19:52; Start 07/10/20 at 19:15 Lorazepam (Ativan Inj) 1 mg PRN Q6HRS PRN IVP ANXIETY / AGITATION Last administered on 07/11/20at 05:21; Start 07/11/20 at 05:15; Stop 07/11/20 at 09:07; Status DC Zolpidem Tartrate (Ambien) 2.5 mg HS PO Last administered on 07/11/20at 19:52; Start 07/11/20 at 21:00; Stop 07/12/20 at 09:57; Status DC Diphenhydramine HCl (Benadryl) 50 mg PRN Q6HRS PRN IVP itching/insomina Last administered on 07/12/20at 20:39; Start 07/12/20 at 01:00 Haloperidol Lactate (Haldol Inj) 5 mg PRN Q6HRS PRN IVP AGITATION Last administered on 07/14/20at 00:49; Start 07/12/20 at 01:00 Zolpidem Tartrate (Ambien) 5 mg HS PO Last administered on 07/13/20at 21:43; Start 07/12/20 at 21:00 Lorazepam (Ativan) 1 mg PRN Q6HRS PRN PO ANXIETY / AGITATION Last administered on 07/13/20at 01:45; Start 07/12/20 at 10:00; Stop 07/14/20 at 10:49; Status DC Fluconazole (Diflucan) 150 mg 1X ONCE PO ; Start 07/12/20 at 16:30; Stop 07/12/20 at 16:31; Status Cancel Clotrimazole (Mycelex-7) 1 reji HS VG Last administered on 07/13/20at 21:42; Start 07/12/20 at 21:00; Stop 07/19/20 at 20:59 Potassium Bicarbonate (Potassium Effervescent Tablet) 30 meq 1X ONCE PEG Last administered on 07/13/20at 09:43; Start 07/13/20 at 09:00; Stop 07/13/20 at 09:01; Status DC Sodium Chloride 1,000 ml @ 1,000 mls/hr 1X ONCE IV Last administered on 07/13/20at 12:02; Start 07/13/20 at 12:00; Stop 07/13/20 at 12:59; Status DC Haloperidol Lactate (Haldol Inj) 2 mg 1X ONCE IVP Last administered on 07/13at 12:03; Start 07/13/20 at 12:00; Stop 07/13/20 at 12:01; Status DC Active Scripts Active Reported Acetaminophen-Diphenhyd 500-25 (Acetaminophen/Diphenhydramine) 1 Each Tablet 1 Each PO HS PRN Naproxen 500 Mg Tablet 1 Tab PO BID PRN 30 Days Tramadol Hcl 50 Mg Tablet 50 Mg PO Q4HRS Levothyroxine Sodium 75 Mcg Tablet 1 Tab PO DAILY Adderall 20 Mg Tablet (Dextroamphetamine/Amphetamine) 20 Mg Tablet 1 Tab PO DAILY MDD 1 Tablet(s) 5 Days Prozac (Fluoxetine Hcl) 20 Mg Capsule 1 Cap PO [id number] Vitals/I & O Vital Sign - Last 24 Hours 07/13/20 07/13/20 07/13/20 07/13/20 14:57 15:00 16:30 19:00 Temp 97.6 96.1 97.6 96.1 Pulse 61 61 70 Resp 16 18 B/P (MAP) 110/60 (77) 110/60 125/62 (83) Pulse Ox 97 97 98 O2 Delivery Tracheal Collar Room Air Nasal Cannula O2 Flow Rate 8.0 8.0 1/07/13/20 07/13/20 07/13/20 20:25 21:01 21:43 23:00 Temp 97.0 97.0 Pulse 70 56 Resp 18 B/P (MAP) 125/62 102/51 (68) Pulse Ox 98 98 O2 Delivery Trach Collar Tracheal Collar O2 Flow Rate 8.0 8.0 8.0 07/14/20 07/14/20 07/14/20 07/14/20 03:00 07:00 07:29 09:24 Temp 97.1 97.7 97.1 97.7 Pulse 76 75 75 Resp 20 20 B/P (MAP) 129/70 (89) 112/60 (77) 112/60 Pulse Ox 97 97 98 O2 Delivery Tracheal Collar Tracheal Collar Tracheal Collar O2 Flow Rate 8.0 8.0 8.0 07/14/20 07/14/20 09:24 09:25 Pulse 75 75 B/P (MAP) 112/60 112/60 Intake and Output 07/13/20 07/13/20 07/14/20 15:00 23:00 07:00 Intake Total 200 ml 100 ml Output Total 0 ml 0 ml Balance 200 ml 100 ml Justicifation of Admission Dx: Justifications for Admission: Justification of Admission Dx: N/A ARIELA BOTELLO MD Jul 14, 2020 11:03
[2020-07-14 11:31] VITALS: BP 118/66
[2020-07-14 15:21] VITALS: BP 138/70
[2020-07-14] MEDS: NEOMY/BACITR/POLYMYXIN OINT PACKET. TP SCH ×2 (17:17→21:28)
[2020-07-14 19:00] VITALS: BP 131/64
[2020-07-14] MEDS: FAMOTIDINE 20 MG TABLET. GT SCH (21:28)
[2020-07-14] MEDS: ENOXAPARIN 40 MG/0.4 ML SYRINGE. SQ SCH (21:28)
[2020-07-14] MEDS: ZOLPIDEM 5 MG TABLET. PO SCH (21:28)
[2020-07-14] MEDS: ATORVASTATIN CALCIUM 20 MG TABLET PO SCH (21:28)
[2020-07-14] MEDS: CLOTRIMAZOLE 1% VAGINAL CREAM 45GM TUBE. VG SCH (21:29)
[2020-07-14 23:00] VITALS: BP 144/60
[2020-07-15 03:07] VITALS: BP 165/85
[2020-07-15] MEDS: LEVOTHYROXINE 75 MCG TABLET PO SCH (06:11)
[2020-07-15 07:00] VITALS: BP 147/74
[2020-07-15] MEDS: IPRATRPIUM/ALBUTEROL 0.5/2.5MG 3 ML NEBU. NEB SCH ×4 (07:23→20:34)
[2020-07-15] MEDS: ASPIRIN CHEWABLE 81 MG TABLET. PO SCH (09:48)
[2020-07-15] MEDS: NEOMY/BACITR/POLYMYXIN OINT PACKET. TP SCH ×2 (09:48→21:39)
[2020-07-15] MEDS: CARVEDILOL 3.125 MG TABLET. PO SCH ×2 (09:49→16:39)
[2020-07-15] MEDS: AMIODARONE HCL 200 MG TABLET. PO SCH (09:49)
[2020-07-15] MEDS: LISINOPRIL 20 MG TABLET PO SCH ×2 (09:50→21:40)
--- NOTE | 2020-07-15 10:13 | PDOC ---
PROGRESS NOTES Date of Service: DATE: 07/15/20 TIME: 10:11 Chief Complaint Chief Complaint IMPRESSION POST covid cardiomyopathy acute systolic CHF Severe NICM: EF 25%. No significant CAD per [facility] anoxic brain injury Cardiac arrest with resuscitation and probable pneumonia, sternal fracture and pneumothorax secondary to CPR, leukocytosis, electrolyte disturbance, hypokalemia, lactic acidosis, elevated troponin. Family wants to try 1 month at [facility] Transfer to [facility] DC Ativan, use Haldol Trach 06/26/20, PEG on 06/27/20 History of Present Illness History of Present Illness 07-15 trach removed d/w DR Aguiar have stopped iv ativan yesterday, SAID YES TO when asked about some remote memories 07-14 DC Ativan, use Haldol appears less agitated d/w in room Trach 06/26/20, PEG on 06/27/20 D/W IN ROOM, SHE IS NOW TRACKING AT TIMES 07/13 MOVING BOTH LEGS AND ARMS without apparent purpose, family working on placement barriers , HYPOKALEMIC, ON REPLACEMENT D/W RN, ALSO VAG CANDIDIASIS, ON MONISTAT VAG CREAM D/W RN 07/09 S/P cardiac arrest 06/17 S/P trach on 06/26 ----- S/P peg 06/27 NO PURPOSEFUL movement 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 No significant change overnight, still no purposeful movements. Sounds as though family still plans to hold off on any change in CODE STATUS or goals of care until at least 30 days after admission date. did show me some video of patient smiling and having meaningful exchange with a family friend today. 07/07. Transfer out of ICU to the medical floors. Discussed with , he feels that music is helping patient. She will occasionally check in with eyes, but no purposeful movements. Has been mentioned trying to give 30 days for admission to show any signs of meaningful improvement. At which time decision will be made about hospice in future goals of care. 07/06, will transfer to floor, no tele, off vent now for some time. discussed with , she does seem improved, she had a tiny smile to some music earlier, still not following commands or any purposeful response 07/05, about the same, discussed my previous thoughts again with and son, not following commands, movement is seeming to be mostly reflexive. they still want to cont iwth the 30 days plan to give her a chance to improve. I discussed possible transition to hospice, they want to wait until that time. 07/04-, minmal change, some relfexive movements, had a video of her withdrawing to light touch to face, soem work with PT, not following commands as directed I discussed poor prognosis with at length, that as days go by, her chances for meaningful recovery continue to dim. I discussed consideration of hospice care. 07/03/2020, discussed plan with family at length yesterday Patient seen and examined in the ICU plan LTAC, but denied start PT and OT moving around a lot She is still not very responsive but at the same time less agitated Vitals Vitals Vital Signs Date Time Temp Pulse Resp B/P (MAP) Pulse Ox O2 Delivery O2 Flow Rate FiO2 07/15/20 09:50 96 147/74 07/15/20 07:23 96 Room Air 07/15/20 07:00 98.3 16 8.0 98.3 Physical Exam Physical Exam GENERAL: Opens eyes transiently, does not follow any commands, Moving arms and legs, not thrusting tongue HEENT: Both pupils are round and reacting. No conjunctival lesion. NECK: Supple. Trach present, erythema and drainage present around trach site improving LUNGS: Decreased breath sounds bilaterally. HEART: S1, S2, regular. No gallop or murmur. ABDOMEN: Soft, nontender. No organomegaly.peg tube + fecal tube , Jolly present EXTREMITIES: No edema or cyanosis. toe amputation of the Rt foot,healed scars SKIN: Unremarkable. NEUROLOGICAL: Opens eyes transiently does not follow any commands, LAUGHS when talking to family General: Cooperative, No acute distress Heart: Regular rate, Normal S1, Normal S2 Lungs: Clear Abdomen: Normal bowel sounds, Soft, No tenderness, No hepatosplenomegaly, No masses Extremities: No cyanosis Skin: No rashes, No breakdown Labs LABS Laboratory Tests Test 07/14/20 11:00 07/14/20 17:22 07/14/20 23:40 07/15/20 06:13 Glucose (Fingerstick) 114 mg/dL (70-99) 117 mg/dL (70-99) 102 mg/dL (70-99) 123 mg/dL (70-99) Assessment and Plan Assessmemt and Plan Problems Medical Problems: (1) Cardiac arrest Status: Acute (2) Fracture of ribs, multiple Status: Acute (3) Hyperglycemia Status: Acute (4) Pneumonia Status: Acute (5) Pneumothorax, right Status: Acute (6) Sternal fracture Status: Acute (7) VF (ventricular fibrillation) Status: Acute Comment Review of Relevant I have reviewed the following items afua (where applicable) has been applied. Labs Laboratory Tests Test 07/13/20 12:00 07/14/20 00:24 07/14/20 06:08 07/14/20 11:00 Glucose (Fingerstick) 113 mg/dL (70-99) 122 mg/dL (70-99) 123 mg/dL (70-99) 114 mg/dL (70-99) Test 07/14/20 17:22 07/14/20 23:40 07/15/20 06:13 Glucose (Fingerstick) 117 mg/dL (70-99) 102 mg/dL (70-99) 123 mg/dL (70-99) Laboratory Tests Test 07/14/20 11:00 07/14/20 17:22 07/14/20 23:40 07/15/20 06:13 Glucose (Fingerstick) 114 mg/dL (70-99) 117 mg/dL (70-99) 102 mg/dL (70-99) 123 mg/dL (70-99) Microbiology 07/10/20 Urine Culture - Final, Complete 06/30/20 Gram Stain - Final, Complete 06/30/20 Aerobic and Anaerobic Culture - Final, Complete 06/17/20 Blood Culture - Final, Complete NO GROWTH AFTER 5 DAYS Medications Current Medications Amiodarone HCl 150 mg/Dextrose 103 ml @ 618 mls/hr 1X ONCE IV Last administered on 06/17/20at 07:00; Start 06/17/20 at 07:00; Stop 06/17/20 at 07:09; Status DC Amiodarone HCl 450 mg/Dextrose 259 ml @ 33 mls/hr 1X ONCE IV ; Start 06/17/20 at 07:00; Stop 06/17/20 at 14:50; Status DC Sodium Chloride 1,000 ml @ 1,000 mls/hr 1X ONCE IV Last administered on 06/17/20at 08:11; Start 06/17/20 at 07:15; Stop 06/17/20 at 08:14; Status DC Midazolam HCl 100 ml @ 0 mls/hr 1X ONCE IV ; Start 06/17/20 at 07:15; Stop 06/17/20 at 07:16; Status DC Midazolam HCl (Versed) 5 mg STK-MED ONCE .ROUTE ; Start 06/17/20 at 07:17; Stop 06/17/20 at 07:17; Status DC Iohexol (Omnipaque 300 Mg/ml) 75 ml 1X ONCE IV Last administered on 06/17/20at 08:17; Start 06/17/20 at 08:15; Stop 06/17/20 at 08:16; Status DC Iohexol (Omnipaque 350 Mg/ml) 100 ml 1X ONCE IV Last administered on 06/17/20at 08:17; Start 06/17/20 at 08:15; Stop 06/17/20 at 08:16; Status DC Info (CONTRAST GIVEN -- Rx MONITORING) 1 each PRN DAILY PRN MC SEE COMMENTS; Start 06/17/20 at 08:15; Stop 06/19/20 at 08:14; Status DC Sodium Chloride 1,000 ml @ 1,000 mls/hr 1X ONCE IV Last administered on 06/17/20at 08:25; Start 06/17/20 at 08:15; Stop 06/17/20 at 09:14; Status DC Potassium Chloride/Water 100 ml @ 50 mls/hr 1X ONCE IV Last administered on 06/17/20at 10:16; Start 06/17/20 at 09:00; Stop 06/17/20 at 10:59; Status DC Piperacillin Sod/ Tazobactam Sod (Zosyn Per Pharmacy) 1 each PRN DAILY PRN MC SEE COMMENTS; Start 06/17/20 at 08:45; Stop 06/27/20 at 11:36; Status DC Piperacillin Sod/ Tazobactam Sod 4.5 gm/Sodium Chloride 100 ml @ 200 mls/hr 1X ONCE IV Last administered on 06/17/20at 10:15; Start 06/17/20 at 08:45; Stop 06/17/20 at 09:14; Status DC Sodium Chloride 1,000 ml @ 125 mls/hr Q8H IV Last administered on 06/17/20at 23:39; Start 06/17/20 at 09:00; Stop 06/18/20 at 08:59; Status DC Propofol (Diprivan) 200 mg 1X ONCE IV Last administered on 06/17/20at 09:00; Start 06/17/20 at 09:00; Stop 06/17/20 at 09:01; Status DC Propofol 100 ml @ As Directed STK-MED ONCE IV ; Start 06/17/20 at 09:05; Stop 06/17/20 at 09:05; Status DC Lidocaine HCl (Lidocaine 1% 20ml Vial) 20 ml 1X ONCE INJ Last administered on 06/17/20at 09:15; Start 06/17/20 at 09:15; Stop 06/17/20 at 09:20; Status DC Lidocaine HCl (Xylocaine-Mpf 1% 5ml Vial) 5 ml STK-MED ONCE .ROUTE ; Start 06/17/20 at 09:26; Stop 06/17/20 at 09:26; Status DC Sodium Chloride 1,000 ml @ 1,000 mls/hr 1X ONCE IV Last administered on 06/17/20at 10:15; Start 06/17/20 at 10:15; Stop 06/17/20 at 11:14; Status DC Propofol 100 ml @ 3.819 mls/ hr CONT PRN IV PER PROTOCOL Last administered on 06/25/20at 06:12; Start 06/17/20 at 10:45; Stop 06/29/20 at 11:47; Status DC Fentanyl Citrate (Fentanyl 2ml Vial) 100 mcg 1X ONCE IV ; Start 06/17/20 at 12:00; Stop 06/17/20 at 12:39; Status DC Midazolam HCl (Versed) 2 mg 1X ONCE IV ; Start 06/17/20 at 12:00; Stop 06/17/20 at 12:39; Status DC Magnesium Sulfate/ Dextrose 100 ml @ 100 mls/hr 1X ONCE IV Last administered on 06/17/20at 12:22; Start 06/17/20 at 12:00; Stop 06/17/20 at 12:39; Status DC Buspirone HCl (Buspar) 30 mg Q8H NG Last administered on 06/17/20at 12:31; Start 06/17/20 at 12:00; Stop 06/17/20 at 12:39; Status DC Glycerin/ Hypromellose/ Polyethylene (Artificial Tears) 1 drop Q6HRS OU ; Start 06/17/20 at 12:00; Stop 06/17/20 at 12:39; Status DC Glycerin/ Hypromellose/ Polyethylene (Artificial Tears) 1 drop PRN Q15MIN PRN OU DRY EYE; Start 06/17/20 at 12:00; Stop 06/17/20 at 12:39; Status DC Heparin Sodium (Porcine) (Heparin Sodium) 5,000 unit BID SQ ; Start 06/17/20 at 21:00; Stop 06/17/20 at 12:39; Status DC Pantoprazole Sodium (PROTONIX VIAL for IV PUSH) 40 mg DAILY IVP ; Start 06/18/20 at 09:00; Stop 06/17/20 at 12:39; Status DC Fentanyl Citrate 30 ml @ 0 mls/hr CONT PRN IV PER PROTOCOL.; Start 06/17/20 at 12:00; Stop 06/17/20 at 12:39; Status DC Propofol 100 ml @ 0 mls/hr CONT PRN IV PER PROTOCOL.; Start 06/17/20 at 12:00; Stop 06/17/20 at 12:39; Status DC Midazolam HCl 100 ml @ 0 mls/hr CONT PRN IV PER PROTOCOL; Start 06/17/20 at 12:00; Stop 06/17/20 at 12:39; Status DC Vecuronium Bellerose (Norcuron Bolus) 10 mg PRN Q1HR PRN IV SHIVERING; Start 06/17/20 at 12:00; Stop 06/17/20 at 12:39; Status DC Piperacillin Sod/ Tazobactam Sod 4.5 gm/Sodium Chloride 100 ml @ 200 mls/hr 1X ONCE IV ; Start 06/17/20 at 12:15; Stop 06/17/20 at 12:44; Status Cancel Midazolam HCl (Versed) 5 mg Q1HR PRN IV SEDATION Last administered on 06/29/20at 13:48; Start 06/17/20 at 12:45; Stop 07/08/20 at 12:59; Status DC Fentanyl Citrate (Fentanyl 2ml Vial) 100 mcg Q1HR IVP Last administered on 06/17/20at 18:55; Start 06/17/20 at 13:00; Stop 06/17/20 at 23:41; Status DC Piperacillin Sod/ Tazobactam Sod 3.375 gm/Sodium Chloride 50 ml @ 100 mls/hr Q6H IV Last administered on 06/27/20at 05:31; Start 06/17/20 at 16:00; Stop 06/27/20 at 11:30; Status DC Potassium Bicarbonate (Potassium Effervescent Tablet) 40 meq 1X ONCE NG Last administered on 06/18/20at 10:00; Start 06/18/20 at 09:45; Stop 06/18/20 at 09:48; Status DC Albuterol/ Ipratropium (Duoneb) 3 ml RTQID NEB Last administered on 07/15/20at 07:23; Start 06/18/20 at 20:00 Famotidine (Pepcid Vial) 20 mg BID IVP Last administered on 07/02/20at 08:05; Start 06/18/20 at 21:00; Stop 07/02/20 at 10:23; Status DC Enoxaparin Sodium (Lovenox 40mg Syringe) 40 mg Q24H SQ Last administered on 07/14/20at 21:28; Start 06/18/20 at 21:00 Levothyroxine Sodium (Synthroid) 75 mcg DAILY06 PO Last administered on 07/15/20at 06:11; Start 06/18/20 at 21:00 Fentanyl Citrate 30 ml @ 0 mls/hr CONT PRN IV SEE PROTOCOL Last administered on 06/28/20at 04:56; Start 06/18/20 at 20:15; Stop 06/29/20 at 11:47; Status DC Carvedilol (Coreg) 3.125 mg BIDWMEALS PO Last administered on 07/15/20at 09:49; Start 06/19/20 at 17:00 Atorvastatin Calcium (Lipitor) 20 mg QHS PO Last administered on 07/14/20at 21:28; Start 06/19/20 at 21:00 Aspirin (Aspirin Chewable) 81 mg DAILYWBKFT PO Last administered on 07/15/20at 09:48; Start 06/20/20 at 08:00 Aspirin (Aspirin Chewable) 81 mg 1X ONCE PO Last administered on 06/19/20at 15:57; Start 06/19/20 at 15:30; Stop 06/19/20 at 15:37; Status DC Potassium Chloride/Water 100 ml @ 100 mls/hr 1X ONCE IV Last administered on 06/19/20at 15:57; Start 06/19/20 at 15:30; Stop 06/19/20 at 16:29; Status DC Amiodarone HCl (Cordarone) 400 mg DAILY PO Last administered on 07/15/20at 09:49; Start 06/20/20 at 09:00 Furosemide (Lasix) 40 mg 1X ONCE IVP Last administered on 06/20/20at 14:38; Start 06/20/20 at 13:30; Stop 06/20/20 at 13:31; Status DC Potassium Chloride/Water 100 ml @ 100 mls/hr 1X ONCE IV Last administered on 06/20/20at 14:39; Start 06/20/20 at 13:30; Stop 06/20/20 at 14:29; Status DC Dexmedetomidine HCl 400 mcg/ Sodium Chloride 100 ml @ 0 mls/hr CONT PRN IV PER PROTOCOL Last administered on 06/29/20at 06:11; Start 06/21/20 at 10:45; Stop 06/29/20 at 11:47; Status DC Sodium Chloride 500 ml @ 500 mls/hr 1X PRN PRN IV SEE COMMENTS; Start 06/21/20 at 10:45 Atropine Sulfate (ATROPINE 0.5mg SYRINGE) 0.5 mg PRN Q5MIN PRN IV SEE COMMENTS; Start 06/21/20 at 10:45; Stop 06/29/20 at 11:47; Status DC Fentanyl Citrate (Fentanyl 2ml Vial) 50 mcg PRN Q2HR PRN IVP PAIN Last administered on 07/12/20at 20:27; Start 06/23/20 at 16:45 Midazolam HCl 100 ml @ 0 mls/hr CONT PRN IV SEE PROTOCOL Last administered on 06/28/20at 03:00; Start 06/25/20 at 11:45; Stop 06/29/20 at 11:47; Status DC Lidocaine HCl (Xylocaine-Mpf 1% 2ml Vial) 2 ml STK-MED ONCE .ROUTE ; Start 06/25/20 at 14:21; Stop 06/25/20 at 14:21; Status DC Iohexol (Omnipaque 300 Mg/ml) 100 ml STK-MED ONCE .ROUTE ; Start 06/25/20 at 14:21; Stop 06/25/20 at 14:21; Status DC Heparin Sodium/ Sodium Chloride 1,000 ml @ As Directed STK-MED ONCE .ROUTE ; Start 06/25/20 at 14:21; Stop 06/25/20 at 14:21; Status DC Heparin Sodium (Porcine) (Heparin Sodium) 10,000 unit STK-MED ONCE .ROUTE ; Start 06/25/20 at 14:31; Stop 06/25/20 at 14:31; Status DC Verapamil HCl (Verapamil) 5 mg STK-MED ONCE .ROUTE ; Start 06/25/20 at 14:31; Stop 06/25/20 at 14:31; Status DC Nitroglycerin (Nitroglycerin) 200 mcg STK-MED ONCE .ROUTE ; Start 06/25/20 at 14:31; Stop 06/25/20 at 14:31; Status DC Nitroglycerin (Nitroglycerin) 200 mcg 1X ONCE IART Last administered on at 15:09; Start 06/25/20 at 15:15; Stop 06/25/20 at 15:16; Status DC Verapamil HCl (Verapamil) 2.5 mg 1X ONCE IART Last administered on 06/25/20at 15:09; Start 06/25/20 at 15:15; Stop 06/25/20 at 15:16; Status DC Heparin Sodium (Porcine) (Heparin Sodium) 2,500 unit 1X ONCE IART Last administered on 06/25/20at 15:09; Start 06/25/20 at 15:15; Stop 06/25/20 at 15:16; Status DC Heparin Sodium/ Sodium Chloride (HEPARIN for ARTERIAL LINE FLUSH) 1,000 unit 1X ONCE IART Last administered on 06/25/20at 15:09; Start 06/25/20 at 15:15; Stop 06/25/20 at 15:16; Status DC Iohexol (Omnipaque 300 Mg/ml) 30 ml 1X ONCE IART Last administered on 06/25/20at 15:09; Start 06/25/20 at 15:15; Stop 06/25/20 at 15:16; Status DC Lidocaine HCl (Xylocaine-Mpf 1% 2ml Vial) 2 ml 1X ONCE INJ Last administered on 06/25/20at 15:09; Start 06/25/20 at 15:15; Stop 06/25/20 at 15:16; Status DC Amino Acids/ Glycerin/ Electrolytes 1,000 ml @ 80 mls/hr [id number] IV Last administered on 06/27/20at 20:50; Start 06/25/20 at 17:30; Stop 06/28/20 at 11:35; Status DC Potassium Chloride/Water 100 ml @ 100 mls/hr Q1H IV Last administered on 06/25/20at 18:46; Start 06/25/20 at 18:00; Stop 06/25/20 at 19:59; Status DC Rocuronium Bellerose (Zemuron) 50 mg STK-MED ONCE .ROUTE ; Start 06/26/20 at 11:37; Stop 06/26/20 at 11:38; Status DC Cellulose (Surgicel Fibrillar 1x2) 1 each STK-MED ONCE .ROUTE Last administered on 06/26/20at 13:20; Start 06/26/20 at 12:19; Stop 06/26/20 at 12:19; Status DC Bupivacaine HCl (Sensorcaine Mpf 0.5%) 30 ml STK-MED ONCE .ROUTE ; Start 06/26/20 at 12:19; Stop 06/26/20 at 12:19; Status DC Ondansetron HCl (Zofran) 4 mg STK-MED ONCE .ROUTE ; Start 06/26/20 at 13:13; Stop 06/26/20 at 13:13; Status DC Dexamethasone Sodium Phosphate (Decadron) 4 mg STK-MED ONCE .ROUTE ; Start 06/26/20 at 13:13; Stop 06/26/20 at 13:14; Status DC Cellulose (Surgicel Fibrillar 1x2) 1 each STK-MED ONCE .ROUTE Last administered on 06/26/20at 13:22; Start 06/26/20 at 13:25; Stop 06/26/20 at 13:25; Status DC Sevoflurane (Ultane) 30 ml STK-MED ONCE IH ; Start 06/26/20 at 13:37; Stop 06/26/20 at 13:38; Status DC Propofol (Diprivan) 200 mg STK-MED ONCE IV ; Start 06/26/20 at 13:38; Stop 06/26/20 at 13:38; Status DC Ringer's Solution 1,000 ml @ 30 mls/hr Q24H IV Last administered on 06/27/20at 08:39; Start 06/27/20 at 07:00; Stop 06/27/20 at 18:59; Status DC Prochlorperazine Edisylate (Compazine) 5 mg PACU PRN PRN IV NAUSEA, MRX1; Start 06/27/20 at 07:00; Stop 06/28/20 at 06:59; Status DC Propofol (Diprivan) 200 mg STK-MED ONCE IV ; Start 06/27/20 at 09:53; Stop 06/27/20 at 09:54; Status DC Lidocaine HCl (Lidocaine Pf 2% Vial) 5 ml STK-MED ONCE .ROUTE ; Start 06/27/20 at 09:54; Stop 06/27/20 at 09:54; Status DC Lisinopril (Prinivil) 5 mg DAILY PO Last administered on 07/04/20at 09:23; Start 06/29/20 at 09:00; Stop 07/04/20 at 14:46; Status DC Acetaminophen/ Hydrocodone Bitart (Lortab 7.5-325/ 15ml Oral Solution) 10 ml 1X ONCE PEG Last administered on 06/28/20at 12:37; Start 06/28/20 at 12:30; Stop 06/28/20 at 12:31; Status DC Piperacillin Sod/ Tazobactam Sod 3.375 gm/Sodium Chloride 50 ml @ 100 mls/hr Q6HRS IV Last administered on 07/07/20at 06:11; Start 06/29/20 at 10:00; Stop 07/07/20 at 09:51; Status DC Vecuronium Bellerose (Norcuron Bolus) 10 mg STK-MED ONCE IV ; Start 06/29/20 at 14:31; Stop 06/29/20 at 14:31; Status DC Propofol 100 ml @ 0 mls/hr CONT PRN IV PER PROTOCOL Last administered on 07/02/20at 07:26; Start 06/29/20 at 16:30; Stop 07/08/20 at 12:58; Status DC Vecuronium Bellerose (Norcuron Bolus) 10 mg 1X ONCE IV Last administered on 06/29/20at 14:31; Start 06/29/20 at 14:31; Stop 06/29/20 at 17:19; Status DC Daptomycin 400 mg/ Sodium Chloride 50 ml @ 100 mls/hr Q24H IV Last administered on 07/04/20at 09:25; Start 06/30/20 at 10:00; Stop 07/05/20 at 08:14; Status DC Famotidine (Pepcid) 20 mg QHS GT Last administered on 07/14/20at 21:28; Start 07/02/20 at 21:00 Haloperidol Lactate (Haldol Inj) 5 mg Q8HRS IVP Last administered on 07/03/20at 06:00; Start 07/02/20 at 14:00; Stop 07/03/20 at 12:40; Status DC Micafungin Sodium 100 mg/Dextrose 100 ml @ 100 mls/hr Q24H IV Last administered on 07/05/20at 08:04; Start 07/03/20 at 09:00; Stop 07/05/20 at 08:14; Status DC Alteplase, Recombinant (Cathflo For Central Catheter Clearance) 1 mg 1X ONCE INT CAT Last administered on 07/03/20at 08:45; Start 07/03/20 at 08:45; Stop 07/03/20 at 08:46; Status DC Haloperidol Lactate (Haldol Inj) 2.5 mg PRN Q6HRS PRN IVP AGITATION; Start 07/03/20 at 12:30; Stop 07/03/20 at 12:40; Status DC Haloperidol Lactate (Haldol Inj) 2.5 mg PRN Q6HRS PRN IVP AGITATION Last administered on 07/04/20at 01:04; Start 07/03/20 at 14:00; Stop 07/04/20 at 08:04; Status DC Haloperidol Lactate (Haldol Inj) 2.5 mg Q8HRS IVP ; Start 07/04/20 at 10:00; Stop 07/04/20 at 08:15; Status DC Haloperidol Lactate (Haldol Inj) 2.5 mg PRN Q8HRS PRN IVP AGITATION; Start 07/04/20 at 08:15; Stop 07/05/20 at 10:35; Status DC Lisinopril (Prinivil) 20 mg BID PO Last administered on 07/15/20at 09:50; Start 07/04/20 at 21:00 Haloperidol (Haldol) 0.5 mg PRN Q8HRS PRN PO AGITATION-2ND CHOICE Last administered on 07/12/20at 16:13; Start 07/05/20 at 10:45 Acetaminophen (Tylenol) 650 mg PRN Q6HRS PRN PO MILD PAIN / TEMP > 100.3'F Last administered on 07/09/20at 21:20; Start 07/06/20 at 13:30 Amoxicillin/ Clavulanate Potassium (Augmentin 875/ 125mg) 1 tab BID PO Last administered on 07/11/20at 19:59; Start 07/07/20 at 21:00; Stop 07/12/20 at 09:57; Status DC Diphenhydramine HCl (Benadryl Oral Elixir) 25 mg PRN Q6HRS PRN PEG ITCHING Last administered on 07/11/20at 19:52; Start 07/10/20 at 19:15 Lorazepam (Ativan Inj) 1 mg PRN Q6HRS PRN IVP ANXIETY / AGITATION Last administered on 07/11/20at 05:21; Start 07/11/20 at 05:15; Stop 07/11/20 at 09:07; Status DC Zolpidem Tartrate (Ambien) 2.5 mg HS PO Last administered on 07/11/20at 19:52; Start 07/11/20 at 21:00; Stop 07/12/20 at 09:57; Status DC Diphenhydramine HCl (Benadryl) 50 mg PRN Q6HRS PRN IVP itching/insomina Last ad ministered on 07/12/20at 20:39; Start 07/12/20 at 01:00 Haloperidol Lactate (Haldol Inj) 5 mg PRN Q6HRS PRN IVP AGITATION Last a dministered on 07/14/20at 00:49; Start 07/12/20 at 01:00 Zolpidem Tartrate (Ambien) 5 mg HS PO Last administered on 07/14/20at 21:28; Start 07/12/20 at 21:00 Lorazepam (Ativan) 1 mg PRN Q6HRS PRN PO ANXIETY / AGITATION Last administered on 07/13/20at 01:45; Start 07/12/20 at 10:00; Stop 07/14/20 at 10:49; Status DC Fluconazole (Diflucan) 150 mg 1X ONCE PO ; Start 07/12/20 at 16:30; Stop 07/12/20 at 16:31; Status Cancel Clotrimazole (Mycelex-7) 1 reji HS VG Last administered on 07/14/20at 21:29; Start 07/12/20 at 21:00; Stop 07/19/20 at 20:59 Potassium Bicarbonate (Potassium Effervescent Tablet) 30 meq 1X ONCE PEG Last administered on 07/13/20at 09:43; Start 07/13/20 at 09:00; Stop 07/13/20 at 09:01; Status DC Sodium Chloride 1,000 ml @ 1,000 mls/hr 1X ONCE IV Last administered on 07/13/20at 12:02; Start 07/13/20 at 12:00; Stop 07/13/20 at 12:59; Status DC Haloperidol Lactate (Haldol Inj) 2 mg 1X ONCE IVP Last administered on 07/13/20at 12:03; Start 07/13/20 at 12:00; Stop 07/13/20 at 12:01; Status DC Neomycin/ Polymyxin/ Bacitracin (Triple Antibiotic Ointment) 1 pkt BID TP Last administered on 07/15/20at 09:48; Start 07/14/20 at 15:00 Active Scripts Active Reported Acetaminophen-Diphenhyd 500-25 (Acetaminophen/Diphenhydramine) 1 Each Tablet 1 Each PO HS PRN Naproxen 500 Mg Tablet 1 Tab PO BID PRN 30 Days Tramadol Hcl 50 Mg Tablet 50 Mg PO Q4HRS Levothyroxine Sodium 75 Mcg Tablet 1 Tab PO DAILY Adderall 20 Mg Tablet (Dextroamphetamine/Amphetamine) 20 Mg Tablet 1 Tab PO DA ZARIA MDD 1 Tablet(s) 5 Days Prozac (Fluoxetine Hcl) 20 Mg Capsule 1 Cap PO [id number] Vitals/I & O Vital Sign - Last 24 Hours 07/14/20 07/14/20 07/14/20 07/14/20 11:31 12:05 15:21 15:35 Temp 98.0 98.0 98.0 98.0 Pulse 78 75 Resp 20 20 B/P (MAP) 118/66 (83) 138/70 (92) Pulse Ox 96 95 95 94 O2 Delivery Tracheal Collar Room Air Tracheal Collar Room Air O2 Flow Rate 8.0 8.0 07/14/20 07/14/20 07/14/20 07/14/20 17:17 19:00 20:20 20:40 Temp 97.3 97.3 Pulse 75 76 Resp 20 B/P (MAP) 138/70 131/64 (86) Pulse Ox 95 91 O2 Delivery Tracheal Collar Trach Collar Room Air O2 Flow Rate 8.0 07/14/20 07/14/20 07/15/20 07/15/20 21:28 23:00 03:07 04:41 Temp 98.5 97.5 98.5 97.5 Pulse 76 75 91 Resp 18 20 B/P (MAP) 131/64 144/60 (88) 165/85 (111) Pulse Ox 96 98 97 O2 Delivery Room Air Room Air Room Air 07/15/20 07/15/20 07/15/20 07/15/20 07:00 07:23 09:49 09:49 Temp 98.3 98.3 Pulse 96 96 96 Resp 16 B/P (MAP) 147/74 (98) 147/74 147/74 Pulse Ox 98 96 O2 Delivery Tracheal Collar Room Air O2 Flow Rate 8.0 07/15/20 09:50 Pulse 96 B/P (MAP) 147/74 Intake and Output 07/14/20 07/14/20 07/15/20 15:00 23:00 07:00 Intake Total 100 ml 100 ml Balance 100 ml 100 ml Justicifation of Admission Dx: Justifications for Admission: Justification of Admission Dx: N/A ARIELA BOTELLO MD Jul 15, 2020 10:13
--- NOTE | 2020-07-15 10:49 | PDOC ---
PULMONARY PROGRESS NOTES DATE: 07/15/20 TIME: 10:44 Subjective Patient's tracheostomy has been capped x24 hours, tolerated well remains on room air S/P cardiac arrest 06/17 S/P trach on 06/26 ----- S/P peg 06/27 Vitals Vital Signs Date Time Temp Pulse Resp B/P (MAP) Pulse Ox O2 Delivery O2 Flow Rate FiO2 07/15/20 09:50 96 147/74 07/15/20 07:23 96 Room Air 07/15/20 07:00 98.3 16 8.0 98.3 Comments Nonverbal Lungs: Clear Cardiovascular: S1, S2 Abdomen: Soft, Non-tender Extremities: No Edema Skin: Warm Labs Laboratory Tests Test 07/13/20 12:00 07/14/20 00:24 07/14/20 06:08 07/14/20 11:00 Glucose (Fingerstick) 113 mg/dL (70-99) 122 mg/dL (70-99) 123 mg/dL (70-99) 114 mg/dL (70-99) Test 07/14/20 17:22 07/14/20 23:40 07/15/20 06:13 Glucose (Fingerstick) 117 mg/dL (70-99) 102 mg/dL (70-99) 123 mg/dL (70-99) Laboratory Tests Test 07/14/20 11:00 07/14/20 17:22 07/14/20 23:40 07/15/20 06:13 Glucose (Fingerstick) 114 mg/dL (70-99) 117 mg/dL (70-99) 102 mg/dL (70-99) 123 mg/dL (70-99) Medications Active Scripts Medications Dose Route/Sig Max Daily Dose Days Date Category Acetaminophen-Diphenhyd 500-25 (Acetaminophen/Diphenhydramine) 1 Each Tablet 1 Each PO HS PRN 06/18/20 Reported Naproxen 500 Mg Tablet 1 Tab PO BID PRN 30 06/18/20 Reported Tramadol Hcl 50 Mg Tablet 50 Mg PO Q4HRS 06/18/20 Reported Levothyroxine Sodium 75 Mcg Tablet 1 Tab PO DAILY 06/18/20 Reported Adderall 20 Mg Tablet (Dextroamphetamine/Amphetamine) 20 Mg Tablet 1 Tab PO DAILY MDD 1 Tablet(s) 5 06/18/20 Reported Prozac (Fluoxetine Hcl) 20 Mg Capsule 1 Cap PO [id number] 06/18/20 Reported Comments CXR IMPRESSION: Left lung base opacities likely consolidative process such as pneumonia. Small left pleural effusion. Impression . IMPRESSION: 1. Acute respiratory failure secondary to [id number]-ajitrfyl cardiopulmonary arrest 2. Kun-jv-pezqiast ventricular fibrillation and asystole leading to anoxic brain injury. 3. Anoxic encephalopathy 4. COVID neg 5. Morbid obesity. 6. Leukocytosis--improved 7. Lactic acidosis secondary to vvd-ly-neygsnrt cardiac arrest. 8. Abnormal x-ray revealing bibasilar atelectasis, infiltrates. 9. Pneumothorax secondary to CPR.resolved 10. Sternal sternal fracture secondary to CPR. 11. Pneumonia positive, gram-negative, gram-positive. 12. UTI 13. Status post trach Plan . Patient is now stable from a respiratory standpoint, decannulated today, remains on room air DC Ambien As needed Haldol as needed Trach 06/26/20, PEG on 06/27/20 Follow infectious disease recommendations in regards to antibiotics--currently off antibiotics Follow neurology recs--no new recommendations Follow Cardiology recs-- post cardiac cath 06/25/20-- cath was clean w/ normal filling pressures Continue tube feeding for nutritional support Do not awaken him overnight if at all possible to establish regular sleep cycle DVT/GI PPX PT. is FULL CODE We will see the patient as needed, these call with any questions or concerns thank you NIKA GARNER MD Jul 15, 2020 10:49
[2020-07-15 11:00] VITALS: BP 119/63
[2020-07-15 11:07] LABS: BASO % 0 % (0-3); EOS # 0.1 x10^3/uL (0.0-0.7); EOS % 1 % (0-3); HEMATOCRIT 36.5 % (36.0-47.0); HEMOGLOBIN 11.8 g/dL (12.0-15.5); LYMPH # 1.5 x10^3/uL (1.0-4.8); LYMPH % 14 % (24-48); MEAN CORPUSCULAR HEMOGLOBIN 29 pg (25-35); MEAN CORPUSCULAR HGB CONC 32 g/dL (31-37); MEAN CORPUSCULAR VOLUME 90 fL (79-100); MONO # 0.5 x10^3/uL (0.0-1.1); MONO % 5 % (0-9); NEUT # 8.2 x10^3/uL (1.8-7.7); NEUT % 79 % (31-73); PLATELET COUNT 315 x10^3/uL (140-400); RED BLOOD COUNT 4.07 x10^6/uL (3.50-5.40); RED CELL DISTRIBUTION WIDTH 13.3 % (11.5-14.5); WHITE BLOOD COUNT 10.4 x10^3/uL (4.0-11.0)
[2020-07-15 11:31] LABS: ALBUMIN 2.9 g/dL (3.4-5.0); ALBUMIN/GLOBULIN RATIO 0.8 (1.0-1.7); CREATININE 0.5 mg/dL (0.6-1.0); GFR 127.2; POTASSIUM 3.1 mmol/L (3.5-5.1); TOTAL BILIRUBIN 0.4 mg/dL (0.2-1.0); TOTAL PROTEIN 6.6 g/dL (6.4-8.2)
--- NOTE | 2020-07-15 14:28 | RAD ---
EXAM: Chest, single view. HISTORY: Pneumonia. COMPARISON: 07/04/2020 FINDINGS: A frontal view of the chest is obtained. There is no infiltrate, pleural effusion or pneumo thorax. The heart is normal in size. There are suspected left infrahilar linear atelectasis or scarri ng. IMPRESSION: No acute pulmonary finding. Electronically signed by: Opal Morataya MD (07/15/2020 2:20 PM) [facility]
[2020-07-15 15:00] VITALS: BP 152/74
[2020-07-15] MEDS: POTASSIUM BICARB 20 MEQ EFFERVESCENT TABLET. PEG SCH ×2 (16:40→21:40)
[2020-07-15 19:00] VITALS: BP 146/54
[2020-07-15] MEDS: ENOXAPARIN 40 MG/0.4 ML SYRINGE. SQ SCH (21:39)
[2020-07-15] MEDS: CLOTRIMAZOLE 1% VAGINAL CREAM 45GM TUBE. VG SCH (21:39)
[2020-07-15] MEDS: FAMOTIDINE 20 MG TABLET. GT SCH (21:39)
[2020-07-15] MEDS: ATORVASTATIN CALCIUM 20 MG TABLET PO SCH (21:40)
[2020-07-16] MEDS: LEVOTHYROXINE 75 MCG TABLET PO SCH (05:44)
[2020-07-16 07:00] VITALS: BP 130/65
[2020-07-16] MEDS: IPRATRPIUM/ALBUTEROL 0.5/2.5MG 3 ML NEBU. NEB SCH ×4 (07:13→20:56)
[2020-07-16] MEDS: ASPIRIN CHEWABLE 81 MG TABLET. PO SCH (09:18)
[2020-07-16] MEDS: NEOMY/BACITR/POLYMYXIN OINT PACKET. TP SCH ×2 (09:18→21:27)
[2020-07-16] MEDS: AMIODARONE HCL 200 MG TABLET. PO SCH (09:18)
[2020-07-16] MEDS: LISINOPRIL 20 MG TABLET PO SCH ×2 (09:19→21:27)
[2020-07-16] MEDS: POTASSIUM BICARB 20 MEQ EFFERVESCENT TABLET. PEG SCH ×2 (09:19→21:26)
[2020-07-16] MEDS: CARVEDILOL 3.125 MG TABLET. PO SCH ×2 (09:19→16:47)
--- NOTE | 2020-07-16 09:47 | PDOC ---
PROGRESS NOTES Date of Service: DATE: 07/16/20 TIME: 09:46 Chief Complaint Chief Complaint IMPRESSION POST covid cardiomyopathy acute systolic CHF Severe NICM: EF 25%. No significant CAD per [facility] anoxic brain injury Cardiac arrest with resuscitation and probable pneumonia, sternal fracture and pneumothorax secondary to CPR, leukocytosis, electrolyte disturbance, hypokalemia, lactic acidosis, elevated troponin. Family wants to try 1 month at [facility] Transfer to [facility] DC Ativan, use Haldol Trach 06/26/20, PEG on 06/27/20 History of Present Illness History of Present Illness 2-1 no acute events reported overnight, case discussed with nursing staff patient in no acute distress no complaints during my visit, hopefully we can start the process of discharge she will certainly need transitioning to an institution unlikely to be able to be cared for at home since she requires full- time care 07-15 trach removed d/w DR Aguiar have stopped iv ativan yesterday, SAID YES TO when asked about some remote memories 07-14 DC Ativan, use Haldol appears less agitated d/w in room Trach 06/26/20, PEG on 06/27/20 D/W IN ROOM, SHE IS NOW TRACKING AT TIMES 07/13 MOVING BOTH LEGS AND ARMS without apparent purpose, family working on placement barriers , HYPOKALEMIC, ON REPLACEMENT D/W RN, ALSO VAG CANDIDIASIS, ON MONISTAT VAG CREAM D/W RN 07/09 S/P cardiac arrest 06/17 S/P trach on 06/26 ----- S/P peg 06/27 NO PURPOSEFUL movement D/W bankman wants to try 1 month at [facility], denied by all facilities contacted to date d/w rn 07/08: Patient seen and evaluated with at bedside. No significant change overnight, still no purposeful movements. Sounds as though family still plans to hold off on any change in CODE STATUS or goals of care until at least 30 days after admission date. did show me some video of patient smiling and having meaningful exchange with a family friend today. 07/07. Transfer out of ICU to the medical floors. Discussed with , he feels that music is helping patient. She will occasionally check in with eyes, but no purposeful movements. Has been mentioned trying to give 30 days for admission to show any signs of meaningful improvement. At which time decision will be made about hospice in future goals of care. 07/06, will transfer to floor, no tele, off vent now for some time. discussed with , she does seem improved, she had a tiny smile to some music earlier, still not following commands or any purposeful response 07/05, about the same, discussed my previous thoughts again with and son, not following commands, movement is seeming to be mostly reflexive. they still want to cont iwth the 30 days plan to give her a chance to improve. I discussed possible transition to hospice, they want to wait until that time. 07/04-, minmal change, some relfexive movements, had a video of her withdrawing to light touch to face, soem work with PT, not following commands as directed I discussed poor prognosis with at length, that as days go by, her chances for meaningful recovery continue to dim. I discussed consideration of hospice care. 07/03/2020, discussed plan with family at length yesterday Patient seen and examined in the ICU plan LTAC, but denied start PT and OT moving around a lot She is still not very responsive but at the same time less agitated Vitals Vitals Vital Signs Date Time Temp Pulse Resp B/P (MAP) Pulse Ox O2 Delivery O2 Flow Rate FiO2 07/16/20 09:19 91 130/65 07/16/20 07:14 96 Room Air 07/16/20 07:00 97.9 18 97.9 07/15/20 07:00 8.0 Physical Exam Physical Exam GENERAL: Opens eyes transiently, does not follow any commands, Moving arms and legs, not thrusting tongue HEENT: Both pupils are round and reacting. No conjunctival lesion. NECK: Supple. Trach present, erythema and drainage present around trach site improving LUNGS: Decreased breath sounds bilaterally. HEART: S1, S2, regular. No gallop or murmur. ABDOMEN: Soft, nontender. No organomegaly.peg tube + fecal tube , Jolly present EXTREMITIES: No edema or cyanosis. toe amputation of the Rt foot,healed scars SKIN: Unremarkable. NEUROLOGICAL: Opens eyes transiently does not follow any commands, LAUGHS when talking to family General: Cooperative, No acute distress Heart: Regular rate, Normal S1, Normal S2 Lungs: Clear Abdomen: Normal bowel sounds, Soft, No tenderness, No hepatosplenomegaly, No masses Extremities: No cyanosis Skin: No rashes, No breakdown Labs LABS Laboratory Tests Test 07/15/20 10:46 07/15/20 11:52 07/15/20 18:20 White Blood Count 10.4 x10^3/uL (4.0-11.0) Red Blood Count 4.07 x10^6/uL (3.50-5.40) Hemoglobin 11.8 g/dL (12.0-15.5) Hematocrit 36.5 % (36.0-47.0) Mean Corpuscular Volume 90 fL (79-100) Mean Corpuscular Hemoglobin 29 pg (25-35) Mean Corpuscular Hemoglobin Concent 32 g/dL (31-37) Red Cell Distribution Width 13.3 % (11.5-14.5) Platelet Count 315 x10^3/uL (140-400) Neutrophils (%) (Auto) 79 % (31-73) Lymphocytes (%) (Auto) 14 % (24-48) Monocytes (%) (Auto) 5 % (0-9) Eosinophils (%) (Auto) 1 % (0-3) Basophils (%) (Auto) 0 % (0-3) Neutrophils # (Auto) 8.2 x10^3/uL (1.8-7.7) Lymphocytes # (Auto) 1.5 x10^3/uL (1.0-4.8) Monocytes # (Auto) 0.5 x10^3/uL (0.0-1.1) Eosinophils # (Auto) 0.1 x10^3/uL (0.0-0.7) Basophils # (Auto) 0.0 x10^3/uL (0.0-0.2) Sodium Level 145 mmol/L (136-145) Potassium Level 3.1 mmol/L (3.5-5.1) Chloride Level 107 mmol/L (98-107) Carbon Dioxide Level 28 mmol/L (21-32) Anion Gap 10 (6-14) Blood Urea Nitrogen 14 mg/dL (7-20) Creatinine 0.5 mg/dL (0.6-1.0) Estimated GFR (Cockcroft-Gault) 127.2 BUN/Creatinine Ratio 28 (6-20) Glucose Level 119 mg/dL (70-99) Calcium Level 9.0 mg/dL (8.5-10.1) Total Bilirubin 0.4 mg/dL (0.2-1.0) Aspartate Amino Transf (AST/SGOT) 24 U/L (15-37) Alanine Aminotransferase (ALT/SGPT) 30 U/L (14-59) Alkaline Phosphatase 75 U/L (46-116) Total Protein 6.6 g/dL (6.4-8.2) Albumin 2.9 g/dL (3.4-5.0) Albumin/Globulin Ratio 0.8 (1.0-1.7) Glucose (Fingerstick) 104 mg/dL (70-99) 105 mg/dL (70-99) Assessment and Plan Assessmemt and Plan Problems Medical Problems: (1) Cardiac arrest Status: Acute (2) Fracture of ribs, multiple Status: Acute (3) Hyperglycemia Status: Acute (4) Pneumonia Status: Acute (5) Pneumothorax, right Status: Acute (6) Sternal fracture Status: Acute (7) VF (ventricular fibrillation) Status: Acute Comment Review of Relevant I have reviewed the following items afua (where applicable) has been applied. Labs Laboratory Tests Test 07/14/20 11:00 07/14/20 17:22 07/14/20 23:40 07/15/20 06:13 Glucose (Fingerstick) 114 mg/dL (70-99) 117 mg/dL (70-99) 102 mg/dL (70-99) 123 mg/dL (70-99) Test 07/15/20 10:46 07/15/20 11:52 07/15/20 18:20 White Blood Count 10.4 x10^3/uL (4.0-11.0) Red Blood Count 4.07 x10^6/uL (3.50-5.40) Hemoglobin 11.8 g/dL (12.0-15.5) Hematocrit 36.5 % (36.0-47.0) Mean Corpuscular Volume 90 fL (79-100) Mean Corpuscular Hemoglobin 29 pg (25-35) Mean Corpuscular Hemoglobin Concent 32 g/dL (31-37) Red Cell Distribution Width 13.3 % (11.5-14.5) Platelet Count 315 x10^3/uL (140-400) Neutrophils (%) (Auto) 79 % (31-73) Lymphocytes (%) (Auto) 14 % (24-48) Monocytes (%) (Auto) 5 % (0-9) Eosinophils (%) (Auto) 1 % (0-3) Basophils (%) (Auto) 0 % (0-3) Neutrophils # (Auto) 8.2 x10^3/uL (1.8-7.7) Lymphocytes # (Auto) 1.5 x10^3/uL (1.0-4.8) Monocytes # (Auto) 0.5 x10^3/uL (0.0-1.1) Eosinophils # (Auto) 0.1 x10^3/uL (0.0-0.7) Basophils # (Auto) 0.0 x10^3/uL (0.0-0.2) Sodium Level 145 mmol/L (136-145) Potassium Level 3.1 mmol/L (3.5-5.1) Chloride Level 107 mmol/L (98-107) Carbon Dioxide Level 28 mmol/L (21-32) Anion Gap 10 (6-14) Blood Urea Nitrogen 14 mg/dL (7-20) Creatinine 0.5 mg/dL (0.6-1.0) Estimated GFR (Cockcroft-Gault) 127.2 BUN/Creatinine Ratio 28 (6-20) Glucose Level 119 mg/dL (70-99) Calcium Level 9.0 mg/dL (8.5-10.1) Total Bilirubin 0.4 mg/dL (0.2-1.0) Aspartate Amino Transf (AST/SGOT) 24 U/L (15-37) Alanine Aminotransferase (ALT/SGPT) 30 U/L (14-59) Alkaline Phosphatase 75 U/L (46-116) Total Protein 6.6 g/dL (6.4-8.2) Albumin 2.9 g/dL (3.4-5.0) Albumin/Globulin Ratio 0.8 (1.0-1.7) Glucose (Fingerstick) 104 mg/dL (70-99) 105 mg/dL (70-99) Laboratory Tests Test 07/15/20 10:46 07/15/20 11:52 07/15/20 18:20 White Blood Count 10.4 x10^3/uL (4.0-11.0) Red Blood Count 4.07 x10^6/uL (3.50-5.40) Hemoglobin 11.8 g/dL (12.0-15.5) Hematocrit 36.5 % (36.0-47.0) Mean Corpuscular Volume 90 fL (79-100) Mean Corpuscular Hemoglobin 29 pg (25-35) Mean Corpuscular Hemoglobin Concent 32 g/dL (31-37) Red Cell Distribution Width 13.3 % (11.5-14.5) Platelet Count 315 x10^3/uL (140-400) Neutrophils (%) (Auto) 79 % (31-73) Lymphocytes (%) (Auto) 14 % (24-48) Monocytes (%) (Auto) 5 % (0-9) Eosinophils (%) (Auto) 1 % (0-3) Basophils (%) (Auto) 0 % (0-3) Neutrophils # (Auto) 8.2 x10^3/uL (1.8-7.7) Lymphocytes # (Auto) 1.5 x10^3/uL (1.0-4.8) Monocytes # (Auto) 0.5 x10^3/uL (0.0-1.1) Eosinophils # (Auto) 0.1 x10^3/uL (0.0-0.7) Basophils # (Auto) 0.0 x10^3/uL (0.0-0.2) Sodium Level 145 mmol/L (136-145) Potassium Level 3.1 mmol/L (3.5-5.1) Chloride Level 107 mmol/L (98-107) Carbon Dioxide Level 28 mmol/L (21-32) Anion Gap 10 (6-14) Blood Urea Nitrogen 14 mg/dL (7-20) Creatinine 0.5 mg/dL (0.6-1.0) Estimated GFR (Cockcroft-Gault) 127.2 BUN/Creatinine Ratio 28 (6-20) Glucose Level 119 mg/dL (70-99) Calcium Level 9.0 mg/dL (8.5-10.1) Total Bilirubin 0.4 mg/dL (0.2-1.0) Aspartate Amino Transf (AST/SGOT) 24 U/L (15-37) Alanine Aminotransferase (ALT/SGPT) 30 U/L (14-59) Alkaline Phosphatase 75 U/L (46-116) Total Protein 6.6 g/dL (6.4-8.2) Albumin 2.9 g/dL (3.4-5.0) Albumin/Globulin Ratio 0.8 (1.0-1.7) Glucose (Fingerstick) 104 mg/dL (70-99) 105 mg/dL (70-99) Microbiology 07/10/20 Urine Culture - Final, Complete 06/30/20 Gram Stain - Final, Complete 06/30/20 Aerobic and Anaerobic Culture - Final, Complete 06/17/20 Blood Culture - Final, Complete NO GROWTH AFTER 5 DAYS Medications Current Medications Amiodarone HCl 150 mg/Dextrose 103 ml @ 618 mls/hr 1X ONCE IV Last administered on 06/17/20at 07:00; Start 06/17/20 at 07:00; Stop 06/17/20 at 07:09; Status DC Amiodarone HCl 450 mg/Dextrose 259 ml @ 33 mls/hr 1X ONCE IV ; Start 06/17/20 at 07:00; Stop 06/17/20 at 14:50; Status DC Sodium Chloride 1,000 ml @ 1,000 mls/hr 1X ONCE IV Last administered on 06/17/20at 08:11; Start 06/17/20 at 07:15; Stop 06/17/20 at 08:14; Status DC Midazolam HCl 100 ml @ 0 mls/hr 1X ONCE IV ; Start 06/17/20 at 07:15; Stop 06/17/20 at 07:16; Status DC Midazolam HCl (Versed) 5 mg STK-MED ONCE .ROUTE ; Start 06/17/20 at 07:17; Stop 06/17/20 at 07:17; Status DC Iohexol (Omnipaque 300 Mg/ml) 75 ml 1X ONCE IV Last administered on 06/17/20at 08:17; Start 06/17/20 at 08:15; Stop 06/17/20 at 08:16; Status DC Iohexol (Omnipaque 350 Mg/ml) 100 ml 1X ONCE IV Last administered on 06/17/20at 08:17; Start 06/17/20 at 08:15; Stop 06/17/20 at 08:16; Status DC Info (CONTRAST GIVEN -- Rx MONITORING) 1 each PRN DAILY PRN MC SEE COMMENTS; Start 06/17/20 at 08:15; Stop 06/19/20 at 08:14; Status DC Sodium Chloride 1,000 ml @ 1,000 mls/hr 1X ONCE IV Last administered on 06/17/20at 08:25; Start 06/17/20 at 08:15; Stop 06/17/20 at 09:14; Status DC Potassium Chloride/Water 100 ml @ 50 mls/hr 1X ONCE IV Last administered on 06/17/20at 10:16; Start 06/17/20 at 09:00; Stop 06/17/20 at 10:59; Status DC Piperacillin Sod/ Tazobactam Sod (Zosyn Per Pharmacy) 1 each PRN DAILY PRN MC SEE COMMENTS; Start 06/17/20 at 08:45; Stop 06/27/20 at 11:36; Status DC Piperacillin Sod/ Tazobactam Sod 4.5 gm/Sodium Chloride 100 ml @ 200 mls/hr 1X ONCE IV Last administered on 06/17/20at 10:15; Start 06/17/20 at 08:45; Stop 06/17/20 at 09:14; Status DC Sodium Chloride 1,000 ml @ 125 mls/hr Q8H IV Last administered on 06/17/20at 23:39; Start 06/17/20 at 09:00; Stop 06/18/20 at 08:59; Status DC Propofol (Diprivan) 200 mg 1X ONCE IV Last administered on 06/17/20at 09:00; Start 06/17/20 at 09:00; Stop 06/17/20 at 09:01; Status DC Propofol 100 ml @ As Directed STK-MED ONCE IV ; Start 06/17/20 at 09:05; Stop 06/17/20 at 09:05; Status DC Lidocaine HCl (Lidocaine 1% 20ml Vial) 20 ml 1X ONCE INJ Last administered on 06/17/20at 09:15; Start 06/17/20 at 09:15; Stop 06/17/20 at 09:20; Status DC Lidocaine HCl (Xylocaine-Mpf 1% 5ml Vial) 5 ml STK-MED ONCE .ROUTE ; Start 06/17/20 at 09:26; Stop 06/17/20 at 09:26; Status DC Sodium Chloride 1,000 ml @ 1,000 mls/hr 1X ONCE IV Last administered on 06/17/20at 10:15; Start 06/17/20 at 10:15; Stop 06/17/20 at 11:14; Status DC Propofol 100 ml @ 3.819 mls/ hr CONT PRN IV PER PROTOCOL Last administered on 06/25/20at 06:12; Start 06/17/20 at 10:45; Stop 06/29/20 at 11:47; Status DC Fentanyl Citrate (Fentanyl 2ml Vial) 100 mcg 1X ONCE IV ; Start 06/17/20 at 12:00; Stop 06/17/20 at 12:39; Status DC Midazolam HCl (Versed) 2 mg 1X ONCE IV ; Start 06/17/20 at 12:00; Stop 06/17/20 at 12:39; Status DC Magnesium Sulfate/ Dextrose 100 ml @ 100 mls/hr 1X ONCE IV Last administered on 06/17/20at 12:22; Start 06/17/20 at 12:00; Stop 06/17/20 at 12:39; Status DC Buspirone HCl (Buspar) 30 mg Q8H NG Last administered on 06/17/20at 12:31; Start 06/17/20 at 12:00; Stop 06/17/20 at 12:39; Status DC Glycerin/ Hypromellose/ Polyethylene (Artificial Tears) 1 drop Q6HRS OU ; Start 06/17/20 at 12:00; Stop 06/17/20 at 12:39; Status DC Glycerin/ Hypromellose/ Polyethylene (Artificial Tears) 1 drop PRN Q15MIN PRN OU DRY EYE; Start 06/17/20 at 12:00; Stop 06/17/20 at 12:39; Status DC Heparin Sodium (Porcine) (Heparin Sodium) 5,000 unit BID SQ ; Start 06/17/20 at 21:00; Stop 06/17/20 at 12:39; Status DC Pantoprazole Sodium (PROTONIX VIAL for IV PUSH) 40 mg DAILY IVP ; Start 06/18/20 at 09:00; Stop 06/17/20 at 12:39; Status DC Fentanyl Citrate 30 ml @ 0 mls/hr CONT PRN IV PER PROTOCOL.; Start 06/17/20 at 12:00; Stop 06/17/20 at 12:39; Status DC Propofol 100 ml @ 0 mls/hr CONT PRN IV PER PROTOCOL.; Start 06/17/20 at 12:00; Stop 06/17/20 at 12:39; Status DC Midazolam HCl 100 ml @ 0 mls/hr CONT PRN IV PER PROTOCOL; Start 06/17/20 at 12:00; Stop 06/17/20 at 12:39; Status DC Vecuronium [place] (Norcuron Bolus) 10 mg PRN Q1HR PRN IV SHIVERING; Start 06/17/20 at 12:00; Stop 06/17/20 at 12:39; Status DC Piperacillin Sod/ Tazobactam Sod 4.5 gm/Sodium Chloride 100 ml @ 200 mls/hr 1X ONCE IV ; Start 06/17/20 at 12:15; Stop 06/17/20 at 12:44; Status Cancel Midazolam HCl (Versed) 5 mg Q1HR PRN IV SEDATION Last administered on 06/29/20at 13:48; Start 06/17/20 at 12:45; Stop 07/08/20 at 12:59; Status DC Fentanyl Citrate (Fentanyl 2ml Vial) 100 mcg Q1HR IVP Last administered on 06/17/20at 18:55; Start 06/17/20 at 13:00; Stop 06/17/20 at 23:41; Status DC Piperacillin Sod/ Tazobactam Sod 3.375 gm/Sodium Chloride 50 ml @ 100 mls/hr Q6H IV Last administered on 06/27/20at 05:31; Start 06/17/20 at 16:00; Stop 06/27/20 at 11:30; Status DC Potassium Bicarbonate (Potassium Effervescent Tablet) 40 meq 1X ONCE NG Last administered on 06/18/20at 10:00; Start 06/18/20 at 09:45; Stop 06/18/20 at 09:48; Status DC Albuterol/ Ipratropium (Duoneb) 3 ml RTQID NEB Last administered on 07/16/20at 07:13; Start 06/18/20 at 20:00 Famotidine (Pepcid Vial) 20 mg BID IVP Last administered on 07/02/20at 08:05; Start 06/18/20 at 21:00; Stop 07/02/20 at 10:23; Status DC Enoxaparin Sodium (Lovenox 40mg Syringe) 40 mg Q24H SQ Last administered on 07/15/20at 21:39; Start 06/18/20 at 21:00 Levothyroxine Sodium (Synthroid) 75 mcg DAILY06 PO Last administered on 07/16/20at 05:44; Start 06/18/20 at 21:00 Fentanyl Citrate 30 ml @ 0 mls/hr CONT PRN IV SEE PROTOCOL Last administered on 06/28/20at 04:56; Start 06/18/20 at 20:15; Stop 06/29/20 at 11:47; Status DC Carvedilol (Coreg) 3.125 mg BIDWMEALS PO Last administered on 07/16/20at 09:19; Start 06/19/20 at 17:00 Atorvastatin Calcium (Lipitor) 20 mg QHS PO Last administered on 07/15/20at 21 :40; Start 06/19/20 at 21:00 Aspirin (Aspirin Chewable) 81 mg [id number] PO Last administered on 07/16/20at 09:18; Start 06/20/20 at 08:00 Aspirin (Aspirin Chewable) 81 mg 1X ONCE PO Last administered on 06/19/20at 15:57; Start 06/19/20 at 15:30; Stop 06/19/20 at 15:37; Status DC Potassium Chloride/Water 100 ml @ 100 mls/hr 1X ONCE IV Last administered on 06/19/20at 15:57; Start 06/19/20 at 15:30; Stop 06/19/20 at 16:29; Status DC Amiodarone HCl (Cordarone) 400 mg DAILY PO Last administered on 07/16/20at 09:18; Start 06/20/20 at 09:00 Furosemide (Lasix) 40 mg 1X ONCE IVP Last administered on 06/20/20at 14:38; Start 06/20/20 at 13:30; Stop 06/20/20 at 13:31; Status DC Potassium Chloride/Water 100 ml @ 100 mls/hr 1X ONCE IV Last administered on 06/20/20at 14:39; Start 06/20/20 at 13:30; Stop 06/20/20 at 14:29; Status DC Dexmedetomidine HCl 400 mcg/ Sodium Chloride 100 ml @ 0 mls/hr CONT PRN IV PER PROTOCOL Last administered on 06/29/20at 06:11; Start 06/21/20 at 10:45; Stop 06/29/20 at 11:47; Status DC Sodium Chloride 500 ml @ 500 mls/hr 1X PRN PRN IV SEE COMMENTS; Start 06/21/20 at 10:45 Atropine Sulfate (ATROPINE 0.5mg SYRINGE) 0.5 mg PRN Q5MIN PRN IV SEE COMMENTS; Start 06/21/20 at 10:45; Stop 06/29/20 at 11:47; Status DC Fentanyl Citrate (Fentanyl 2ml Vial) 50 mcg PRN Q2HR PRN IVP PAIN Last administered on 07/12/20at 20:27; Start 06/23/20 at 16:45 Midazolam HCl 100 ml @ 0 mls/hr CONT PRN IV SEE PROTOCOL Last administered on 06/28/20at 03:00; Start 06/25/20 at 11:45; Stop 06/29/20 at 11:47; Status DC Lidocaine HCl (Xylocaine-Mpf 1% 2ml Vial) 2 ml STK-MED ONCE .ROUTE ; Start 06/25/20 at 14:21; Stop 06/25/20 at 14:21; Status DC Iohexol (Omnipaque 300 Mg/ml) 100 ml STK-MED ONCE .ROUTE ; Start 06/25/20 at 14:21; Stop 06/25/20 at 14:21; Status DC Heparin Sodium/ Sodium Chloride 1,000 ml @ As Directed STK-MED ONCE .ROUTE ; Start 06/25/20 at 14:21; Stop 06/25/20 at 14:21; Status DC Heparin Sodium (Porcine) (Heparin Sodium) 10,000 unit STK-MED ONCE .ROUTE ; Start 06/25/20 at 14:31; Stop 06/25/20 at 14:31; Status DC Verapamil HCl (Verapamil) 5 mg STK-MED ONCE .ROUTE ; Start 06/25/20 at 14:31; Stop 06/25/20 at 14:31; Status DC Nitroglycerin (Nitroglycerin) 200 mcg STK-MED ONCE .ROUTE ; Start 06/25/20 at 14:31; Stop 06/25/20 at 14:31; Status DC Nitroglycerin (Nitroglycerin) 200 mcg 1X ONCE IART Last administered on 06/25/20at 15:09; Start 06/25/20 at 15:15; Stop 06/25/20 at 15:16; Status DC Verapamil HCl (Verapamil) 2.5 mg 1X ONCE IART Last administered on 06/25/20at 15:09; Start 06/25/20 at 15:15; Stop 06/25/20 at 15:16; Status DC Heparin Sodium (Porcine) (Heparin Sodium) 2,500 unit 1X ONCE IART Last administered on 06/25/20at 15:09; Start 06/25/20 at 15:15; Stop 06/25/20 at 15:16; Status DC Heparin Sodium/ Sodium Chloride (HEPARIN for ARTERIAL LINE FLUSH) 1,000 unit 1X ONCE IART Last administered on 06/25/20at 15:09; Start 06/25/20 at 15:15; Stop 06/25/20 at 15:16; Status DC Iohexol (Omnipaque 300 Mg/ml) 30 ml 1X ONCE IART Last administered on 06/25/20at 15:09; Start 06/25/20 at 15:15; Stop 06/25/20 at 15:16; Status DC Lidocaine HCl (Xylocaine-Mpf 1% 2ml Vial) 2 ml 1X ONCE INJ Last administered on 06/25/20at 15:09; Start 06/25/20 at 15:15; Stop 06/25/20 at 15:16; Status DC Amino Acids/ Glycerin/ Electrolytes 1,000 ml @ 80 mls/hr [id number] IV Last administered on 06/27/20at 20:50; Start 06/25/20 at 17:30; Stop 06/28/20 at 11:35; Status DC Potassium Chloride/Water 100 ml @ 100 mls/hr Q1H IV Last administered on 06/25/20at 18:46; Start 06/25/20 at 18:00; Stop 06/25/20 at 19:59; Status DC Rocuronium [place] (Zemuron) 50 mg STK-MED ONCE .ROUTE ; Start 06/26/20 at 11:37; Stop 06/26/20 at 11:38; Status DC Cellulose (Surgicel Fibrillar 1x2) 1 each STK-MED ONCE .ROUTE Last administered on 06/26/20at 13:20; Start 06/26/20 at 12:19; Stop 06/26/20 at 12:19; Status DC Bupivacaine HCl (Sensorcaine Mpf 0.5%) 30 ml STK-MED ONCE .ROUTE ; Start 06/26/20 at 12:19; Stop 06/26/20 at 12:19; Status DC Ondansetron HCl (Zofran) 4 mg STK-MED ONCE .ROUTE ; Start 06/26/20 at 13:13; Stop 06/26/20 at 13:13; Status DC Dexamethasone Sodium Phosphate (Decadron) 4 mg STK-MED ONCE .ROUTE ; Start 06/26/20 at 13:13; Stop 06/26/20 at 13:14; Status DC Cellulose (Surgicel Fibrillar 1x2) 1 each STK-MED ONCE .ROUTE Last administered on 06/26/20at 13:22; Start 06/26/20 at 13:25; Stop 06/26/20 at 13:25; Status DC Sevoflurane (Ultane) 30 ml STK-MED ONCE IH ; Start 06/26/20 at 13:37; Stop 06/26/20 at 13:38; Status DC Propofol (Diprivan) 200 mg STK-MED ONCE IV ; Start 06/26/20 at 13:38; Stop 06/26/20 at 13:38; Status DC Ringer's Solution 1,000 ml @ 30 mls/hr Q24H IV Last administered on 06/27/20at 08:39; Start 06/27/20 at 07:00; Stop 06/27/20 at 18:59; Status DC Prochlorperazine Edisylate (Compazine) 5 mg PACU PRN PRN IV NAUSEA, MRX1; Start 06/27/20 at 07:00; Stop 06/28/20 at 06:59; Status DC Propofol (Diprivan) 200 mg STK-MED ONCE IV ; Start 06/27/20 at 09:53; Stop 06/27/20 at 09:54; Status DC Lidocaine HCl (Lidocaine Pf 2% Vial) 5 ml STK-MED ONCE .ROUTE ; Start 06/27/20 at 09:54; Stop 06/27/20 at 09:54; Status DC Lisinopril (Prinivil) 5 mg DAILY PO Last administered on 07/04/20at 09:23; Start 06/29/20 at 09:00; Stop 07/04/20 at 14:46; Status DC Acetaminophen/ Hydrocodone Bitart (Lortab 7.5-325/ 15ml Oral Solution) 10 ml 1X ONCE PEG Last administered on 06/28/20at 12:37; Start 06/28/20 at 12:30; Stop 06/28/20 at 12:31; Status DC Piperacillin Sod/ Tazobactam Sod 3.375 gm/Sodium Chloride 50 ml @ 100 mls/hr Q6HRS IV Last administered on 07/07/20at 06:11; Start 06/29/20 at 10:00; Stop 07/07/20 at 09:51; Status DC Vecuronium [place] (Norcuron Bolus) 10 mg STK-MED ONCE IV ; Start 06/29/20 at 14:31; Stop 06/29/20 at 14:31; Status DC Propofol 100 ml @ 0 mls/hr CONT PRN IV PER PROTOCOL Last administered on 07/02/20at 07:26; Start 06/29/20 at 16:30; Stop 07/08/20 at 12:58; Status DC Vecuronium [place] (Norcuron Bolus) 10 mg 1X ONCE IV Last administered on 06/29/20at 14:31; Start 06/29/20 at 14:31; Stop 06/29/20 at 17:19; Status DC Daptomycin 400 mg/ Sodium Chloride 50 ml @ 100 mls/hr Q24H IV Last administered on 07/04/20at 09:25; Start 06/30/20 at 10:00; Stop 07/05/20 at 08:14; Status DC Famotidine (Pepcid) 20 mg QHS GT Last administered on 07/15/20at 21:39; Start 07/02/20 at 21:00 Haloperidol Lactate (Haldol Inj) 5 mg Q8HRS IVP Last administered on 07/03/20at 06:00; Start 07/02/20 at 14:00; Stop 07/03/20 at 12:40; Status DC Micafungin Sodium 100 mg/Dextrose 100 ml @ 100 mls/hr Q24H IV Last administered on 07/05/20at 08:04; Start 07/03/20 at 09:00; Stop 07/05/20 at 08:14; Status DC Alteplase, Recombinant (Cathflo For Central Catheter Clearance) 1 mg 1X ONCE INT CAT Last administered on 07/03/20at 08:45; Start 07/03/20 at 08:45; Stop 07/03/20 at 08:46; Status DC Haloperidol Lactate (Haldol Inj) 2.5 mg PRN Q6HRS PRN IVP AGITATION; Start 07/03/20 at 12:30; Stop 07/03/20 at 12:40; Status DC Haloperidol Lactate (Haldol Inj) 2.5 mg PRN Q6HRS PRN IVP AGITATION Last administered on 07/04/20at 01:04; Start 07/03/20 at 14:00; Stop 07/04/20 at 08:04; Status DC Haloperidol Lactate (Haldol Inj) 2.5 mg Q8HRS IVP ; Start 07/04/20 at 10:00; Stop 07/04/20 at 08:15; Status DC Haloperidol Lactate (Haldol Inj) 2.5 mg PRN Q8HRS PRN IVP AGITATION; Start 07/04/20 at 08:15; Stop 07/05/20 at 10:35; Status DC Lisinopril (Prinivil) 20 mg BID PO Last administered on 07/16/20at 09:19; Start 07/04/20 at 21:00 Haloperidol (Haldol) 0.5 mg PRN Q8HRS PRN PO AGITATION-2ND CHOICE Last administered on 07/12/20at 16:13; Start 07/05/20 at 10:45 Acetaminophen (Tylenol) 650 mg PRN Q6HRS PRN PO MILD PAIN / TEMP > 100.3'F Last administered on 07/09/20at 21:20; Start 07/06/20 at 13:30 Amoxicillin/ Clavulanate Potassium (Augmentin 875/ 125mg) 1 tab BID PO Last administered on 07/11/20at 19:59; Start 07/07/20 at 21:00; Stop 07/12/20 at 09:57; Status DC Diphenhydramine HCl (Benadryl Oral Elixir) 25 mg PRN Q6HRS PRN PEG ITCHING Last administered on 07/11/20at 19:52; Start 07/10/20 at 19:15 Lorazepam (Ativan Inj) 1 mg PRN Q6HRS PRN IVP ANXIETY / AGITATION Last administered on 07/11/20at 05:21; Start 07/11/20 at 05:15; Stop 07/11/20 at 09:07; Status DC Zolpidem Tartrate (Ambien) 2.5 mg HS PO Last administered on 07/11/20at 19:52; Start 07/11/20 at 21:00; Stop 07/12/20 at 09:57; Status DC Diphenhydramine HCl (Benadryl) 50 mg PRN Q6HRS PRN IVP itching/insomina Last administered on 07/12/20at 20:39; Start 07/12/20 at 01:00 Haloperidol Lactate (Haldol Inj) 5 mg PRN Q6HRS PRN IVP AGITATION Last administered on 07/14/20at 00:49; Start 07/12/20 at 01:00 Zolpidem Tartrate (Ambien) 5 mg HS PO Last administered on 07/14/20at 21:28; Start 07/12/20 at 21:00; Stop 07/15/20 at 10:51; Status DC Lorazepam (Ativan) 1 mg PRN Q6HRS PRN PO ANXIETY / AGITATION Last administered on 07/13/20at 01:45; Start 07/12/20 at 10:00; Stop 07/14/20 at 10:49; Status DC Fluconazole (Diflucan) 150 mg 1X ONCE PO ; Start 07/12/20 at 16:30; Stop 07/12/20 at 16:31; Status Cancel Clotrimazole (Mycelex-7) 1 reji HS VG Last administered on 07/15/20at 21:39; Start 07/12/20 at 21:00; Stop 07/19/20 at 20:59 Potassium Bicarbonate (Potassium Effervescent Tablet) 30 meq 1X ONCE PEG Last administered on 07/13/20at 09:43; Start 07/13/20 at 09:00; Stop 07/13/20 at 09:01; Status DC Sodium Chloride 1,000 ml @ 1,000 mls/hr 1X ONCE IV Last administered on 07/13/20at 12:02; Start 07/13/20 at 12:00; Stop 07/13/20 at 12:59; Status DC Haloperidol Lactate (Haldol Inj) 2 mg 1X ONCE IVP Last administered on 07/13/20at 12:03; Start 07/13/20 at 12:00; Stop 07/13/20 at 12:01; Status DC Neomycin/ Polymyxin/ Bacitracin (Triple Antibiotic Ointment) 1 pkt BID TP Last administered on 07/16/20at 09:18; Start 07/14/20 at 15:00 Potassium Bicarbonate (Potassium Effervescent Tablet) 20 meq BID PEG Last administered on 07/16/20at 09:19; Start 07/15/20 at 14:00 Active Scripts Active Reported Acetaminophen-Diphenhyd 500-25 (Acetaminophen/Diphenhydramine) 1 Each Tablet 1 Each PO HS PRN Naproxen 500 Mg Tablet 1 Tab PO BID PRN 30 Days Tramadol Hcl 50 Mg Tablet 50 Mg PO Q4HRS Levothyroxine Sodium 75 Mcg Tablet 1 Tab PO DAILY Adderall 20 Mg Tablet (Dextroamphetamine/Amphetamine) 20 Mg Tablet 1 Tab PO DAILY MDD 1 Tablet(s) 5 Days Prozac (Fluoxetine Hcl) 20 Mg Capsule 1 Cap PO [id number] Vitals/I & O Vital Sign - Last 24 Hours 07/15/20 07/15/20 07/15/20 07/15/20 09:49 09:49 09:50 10:38 Pulse 96 96 96 B/P (MAP) 147/74 147/74 147/74 Pulse Ox 98 O2 Delivery Room Air 07/15/20 07/15/20 07/15/20 07/15/20 11:00 15:00 15:17 16:39 Temp 97.6 98.1 97.6 98.1 Pulse 74 85 85 Resp 16 16 B/P (MAP) 119/63 (81) 152/74 (100) 152/74 Pulse Ox 93 95 93 O2 Delivery Room Air Room Air Room Air 07/15/20 07/15/20 07/15/20 07/16/20 19:00 20:35 21:40 07:00 Temp 98.1 97.9 98.1 97.9 Pulse 78 78 91 Resp 18 18 B/P (MAP) 146/54 (84) 146/54 130/65 (86) Pulse Ox 100 96 95 O2 Delivery Room Air Room Air Room Air 07/16/20 07/16/20 07/16/20 07/16/20 07:14 09:18 09:19 09:19 Pulse 91 91 91 B/P (MAP) 130/65 130/65 130/65 Pulse Ox 96 O2 Delivery Room Air Intake and Output 07/15/20 07/15/20 07/16/20 15:00 23:00 07:00 Intake Total 125 ml 100 ml Balance 125 ml 100 ml Justicifation of Admission Dx: Justifications for Admission: Justification of Admission Dx: N/A MIMI FREEMAN MD Jul 16, 2020 09:47
[2020-07-16 09:49] LABS: CALCIUM 9.2 mg/dL (8.5-10.1); CREATININE 0.5 mg/dL (0.6-1.0); GFR 127.2; POTASSIUM 3.7 mmol/L (3.5-5.1)
--- NOTE | 2020-07-16 10:56 | PDOC ---
Date of Service: DATE: 07/16/20 TIME: 10:51 Subjective: Subjective: present - trach removed yesterday. He has been giving her droplets of water. Wants to know when PEG can be removed, asks about swallow eval. Objective: Objective: D/w nurse - feeds remain @ 40cc/her, residuals ~50cc. Vital Signs: Vital Signs Date Time Temp Pulse Resp B/P (MAP) Pulse Ox O2 Delivery O2 Flow Rate FiO2 07/16/20 09:19 91 130/65 07/16/20 07:14 96 Room Air 07/16/20 07:00 97.9 18 97.9 07/15/20 07:00 8.0 Labs: Laboratory Tests Test 07/15/20 11:52 07/15/20 18:20 07/16/20 08:30 Glucose (Fingerstick) 104 mg/dL 105 mg/dL Sodium Level 145 mmol/L Potassium Level 3.7 mmol/L Chloride Level 106 mmol/L Carbon Dioxide Level 29 mmol/L Anion Gap 10 Blood Urea Nitrogen 11 mg/dL Creatinine 0.5 mg/dL Estimated GFR (Cockcroft-Gault) 127.2 Glucose Level 118 mg/dL Calcium Level 9.2 mg/dL Imaging: CXR 07/15 IMPRESSION: No acute pulmonary finding. 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 Justicifation of Admission Dx: Justifications for Admission: Justification of Admission Dx: N/A SHAHBAZ FOSS Jul 16, 2020 10:56
--- NOTE | 2020-07-16 11:05 | PDOC ---
PROGRESS NOTES Date of Service DATE: 07/16/20 TIME: 11:03 Assessment Problems Medical Problems: (1) Cardiac arrest Status: Acute (2) Fracture of ribs, multiple Status: Acute (3) Hyperglycemia Status: Acute (4) Pneumonia Status: Acute (5) Pneumothorax, right Status: Acute (6) Sternal fracture Status: Acute (7) VF (ventricular fibrillation) Status: Acute Anoxic encephalopathy, ventricular fibrillation and asystole, improving, but not making much more progress Negative for Covid Status-post trach and PEG, now off vent, trach removed 07/15 Nocturnal restlessness, does the best with haloperidol, believes Plan Haloperidol as needed, also has as needed lorazepam and zolpidem stop I discussed risk of Parkinson's with haloperidol Supportive care Holding on additional neurological tests Family wants to try 1 month at [facility] Transfer anytime to [facility] was ready for transfer 06/29, still here due to insurance company cary Discussed with Subjective None Objective Vital Signs Date Time Temp Pulse Resp B/P (MAP) Pulse Ox O2 Delivery O2 Flow Rate FiO2 07/16/20 09:19 91 130/65 07/16/20 07:14 96 Room Air 07/16/20 07:00 97.9 18 97.9 07/15/20 07:00 8.0 Intake and Output 07/16/20 07:00 Intake Total 225 ml Balance 225 ml Tube Feeding 225 ml # Voids 4 # Bowel Movements 1 PHYSICAL EXAM Trache removed. No response to visual threat PERRL. EOMI. CN: no focal findings. Muscle tone: normal. Muscle strength: Moving arms and legs, not thrusting tongue DTR: 1+ Plantar reflex: Flexor Gait: not examined. Sensory exam: Not cooperative Cerebellar: Not cooperative Review of Relevant I have reviewed the following items afua (where applicable) has been applied. Labs Laboratory Tests Test 07/14/20 17:22 07/14/20 23:40 07/15/20 06:13 07/15/20 10:46 Glucose (Fingerstick) 117 mg/dL (70-99) 102 mg/dL (70-99) 123 mg/dL (70-99) White Blood Count 10.4 x10^3/uL (4.0-11.0) Red Blood Count 4.07 x10^6/uL (3.50-5.40) Hemoglobin 11.8 g/dL (12.0-15.5) Hematocrit 36.5 % (36.0-47.0) Mean Corpuscular Volume 90 fL (79-100) Mean Corpuscular Hemoglobin 29 pg (25-35) Mean Corpuscular Hemoglobin Concent 32 g/dL (31-37) Red Cell Distribution Width 13.3 % (11.5-14.5) Platelet Count 315 x10^3/uL (140-400) Neutrophils (%) (Auto) 79 % (31-73) Lymphocytes (%) (Auto) 14 % (24-48) Monocytes (%) (Auto) 5 % (0-9) Eosinophils (%) (Auto) 1 % (0-3) Basophils (%) (Auto) 0 % (0-3) Neutrophils # (Auto) 8.2 x10^3/uL (1.8-7.7) Lymphocytes # (Auto) 1.5 x10^3/uL (1.0-4.8) Monocytes # (Auto) 0.5 x10^3/uL (0.0-1.1) Eosinophils # (Auto) 0.1 x10^3/uL (0.0-0.7) Basophils # (Auto) 0.0 x10^3/uL (0.0-0.2) Sodium Level 145 mmol/L (136-145) Potassium Level 3.1 mmol/L (3.5-5.1) Chloride Level 107 mmol/L (98-107) Carbon Dioxide Level 28 mmol/L (21-32) Anion Gap 10 (6-14) Blood Urea Nitrogen 14 mg/dL (7-20) Creatinine 0.5 mg/dL (0.6-1.0) Estimated GFR (Cockcroft-Gault) 127.2 BUN/Creatinine Ratio 28 (6-20) Glucose Level 119 mg/dL (70-99) Calcium Level 9.0 mg/dL (8.5-10.1) Total Bilirubin 0.4 mg/dL (0.2-1.0) Aspartate Amino Transf (AST/SGOT) 24 U/L (15-37) Alanine Aminotransferase (ALT/SGPT) 30 U/L (14-59) Alkaline Phosphatase 75 U/L (46-116) Total Protein 6.6 g/dL (6.4-8.2) Albumin 2.9 g/dL (3.4-5.0) Albumin/Globulin Ratio 0.8 (1.0-1.7) Test 07/15/20 11:52 07/15/20 18:20 07/16/20 08:30 Glucose (Fingerstick) 104 mg/dL (70-99) 105 mg/dL (70-99) Sodium Level 145 mmol/L (136-145) Potassium Level 3.7 mmol/L (3.5-5.1) Chloride Level 106 mmol/L (98-107) Carbon Dioxide Level 29 mmol/L (21-32) Anion Gap 10 (6-14) Blood Urea Nitrogen 11 mg/dL (7-20) Creatinine 0.5 mg/dL (0.6-1.0) Estimated GFR (Cockcroft-Gault) 127.2 Glucose Level 118 mg/dL (70-99) Calcium Level 9.2 mg/dL (8.5-10.1) Laboratory Tests Test 07/15/20 11:52 07/15/20 18:20 07/16/20 08:30 Glucose (Fingerstick) 104 mg/dL (70-99) 105 mg/dL (70-99) Sodium Level 145 mmol/L (136-145) Potassium Level 3.7 mmol/L (3.5-5.1) Chloride Level 106 mmol/L (98-107) Carbon Dioxide Level 29 mmol/L (21-32) Anion Gap 10 (6-14) Blood Urea Nitrogen 11 mg/dL (7-20) Creatinine 0.5 mg/dL (0.6-1.0) Estimated GFR (Cockcroft-Gault) 127.2 Glucose Level 118 mg/dL (70-99) Calcium Level 9.2 mg/dL (8.5-10.1) Microbiology 07/10/20 Urine Culture - Final, Complete 06/30/20 Gram Stain - Final, Complete 06/30/20 Aerobic and Anaerobic Culture - Final, Complete 06/17/20 Blood Culture - Final, Complete NO GROWTH AFTER 5 DAYS Medications Current Medications Amiodarone HCl 150 mg/Dextrose 103 ml @ 618 mls/hr 1X ONCE IV Last administered on 06/17/20at 07:00; Start 06/17/20 at 07:00; Stop 06/17/20 at 07:09; Status DC Amiodarone HCl 450 mg/Dextrose 259 ml @ 33 mls/hr 1X ONCE IV ; Start 06/17/20 at 07:00; Stop 06/17/20 at 14:50; Status DC Sodium Chloride 1,000 ml @ 1,000 mls/hr 1X ONCE IV Last administered on 06/17/20at 08:11; Start 06/17/20 at 07:15; Stop 06/17/20 at 08:14; Status DC Midazolam HCl 100 ml @ 0 mls/hr 1X ONCE IV ; Start 06/17/20 at 07:15; Stop 06/17/20 at 07:16; Status DC Midazolam HCl (Versed) 5 mg STK-MED ONCE .ROUTE ; Start 06/17/20 at 07:17; Stop 06/17/20 at 07:17; Status DC Iohexol (Omnipaque 300 Mg/ml) 75 ml 1X ONCE IV Last administered on 06/17/20at 08:17; Start 06/17/20 at 08:15; Stop 06/17/20 at 08:16; Status DC Iohexol (Omnipaque 350 Mg/ml) 100 ml 1X ONCE IV Last administered on 06/17/20at 08:17; Start 06/17/20 at 08:15; Stop 06/17/20 at 08:16; Status DC Info (CONTRAST GIVEN -- Rx MONITORING) 1 each PRN DAILY PRN MC SEE COMMENTS; Start 06/17/20 at 08:15; Stop 06/19/20 at 08:14; Status DC Sodium Chloride 1,000 ml @ 1,000 mls/hr 1X ONCE IV Last administered on 06/17/20at 08:25; Start 06/17/20 at 08:15; Stop 06/17/20 at 09:14; Status DC Potassium Chloride/Water 100 ml @ 50 mls/hr 1X ONCE IV Last administered on 06/17/20at 10:16; Start 06/17/20 at 09:00; Stop 06/17/20 at 10:59; Status DC Piperacillin Sod/ Tazobactam Sod (Zosyn Per Pharmacy) 1 each PRN DAILY PRN MC SEE COMMENTS; Start 06/17/20 at 08:45; Stop 06/27/20 at 11:36; Status DC Piperacillin Sod/ Tazobactam Sod 4.5 gm/Sodium Chloride 100 ml @ 200 mls/hr 1X ONCE IV Last administered on 06/17/20at 10:15; Start 06/17/20 at 08:45; Stop 06/17/20 at 09:14; Status DC Sodium Chloride 1,000 ml @ 125 mls/hr Q8H IV Last administered on 06/17/20at 23:39; Start 06/17/20 at 09:00; Stop 06/18/20 at 08:59; Status DC Propofol (Diprivan) 200 mg 1X ONCE IV Last administered on 06/17/20at 09:00; Start 06/17/20 at 09:00; Stop 06/17/20 at 09:01; Status DC Propofol 100 ml @ As Directed STK-MED ONCE IV ; Start 06/17/20 at 09:05; Stop 06/17/20 at 09:05; Status DC Lidocaine HCl (Lidocaine 1% 20ml Vial) 20 ml 1X ONCE INJ Last administered on 06/17/20at 09:15; Start 06/17/20 at 09:15; Stop 06/17/20 at 09:20; Status DC Lidocaine HCl (Xylocaine-Mpf 1% 5ml Vial) 5 ml STK-MED ONCE .ROUTE ; Start 06/17/20 at 09:26; Stop 06/17/20 at 09:26; Status DC Sodium Chloride 1,000 ml @ 1,000 mls/hr 1X ONCE IV Last administered on 06/17/20at 10:15; Start 06/17/20 at 10:15; Stop 06/17/20 at 11:14; Status DC Propofol 100 ml @ 3.819 mls/ hr CONT PRN IV PER PROTOCOL Last administered on 06/25/20at 06:12; Start 06/17/20 at 10:45; Stop 06/29/20 at 11:47; Status DC Fentanyl Citrate (Fentanyl 2ml Vial) 100 mcg 1X ONCE IV ; Start 06/17/20 at 12:00; Stop 06/17/20 at 12:39; Status DC Midazolam HCl (Versed) 2 mg 1X ONCE IV ; Start 06/17/20 at 12:00; Stop 06/17/20 at 12:39; Status DC Magnesium Sulfate/ Dextrose 100 ml @ 100 mls/hr 1X ONCE IV Last administered on 06/17/20at 12:22; Start 06/17/20 at 12:00; Stop 06/17/20 at 12:39; Status DC Buspirone HCl (Buspar) 30 mg Q8H NG Last administered on 06/17/20at 12:31; Start 06/17/20 at 12:00; Stop 06/17/20 at 12:39; Status DC Glycerin/ Hypromellose/ Polyethylene (Artificial Tears) 1 drop Q6HRS OU ; Start 06/17/20 at 12:00; Stop 06/17/20 at 12:39; Status DC Glycerin/ Hypromellose/ Polyethylene (Artificial Tears) 1 drop PRN Q15MIN PRN OU DRY EYE; Start 06/17/20 at 12:00; Stop 06/17/20 at 12:39; Status DC Heparin Sodium (Porcine) (Heparin Sodium) 5,000 unit BID SQ ; Start 06/17/20 at 21:00; Stop 06/17/20 at 12:39; Status DC Pantoprazole Sodium (PROTONIX VIAL for IV PUSH) 40 mg DAILY IVP ; Start 06/18/20 at 09:00; Stop 06/17/20 at 12:39; Status DC Fentanyl Citrate 30 ml @ 0 mls/hr CONT PRN IV PER PROTOCOL.; Start 06/17/20 at 12:00; Stop 06/17/20 at 12:39; Status DC Propofol 100 ml @ 0 mls/hr CONT PRN IV PER PROTOCOL.; Start 06/17/20 at 12:00; Stop 06/17/20 at 12:39; Status DC Midazolam HCl 100 ml @ 0 mls/hr CONT PRN IV PER PROTOCOL; Start 06/17/20 at 12: 00; Stop 06/17/20 at 12:39; Status DC Vecuronium [place] (Norcuron Bolus) 10 mg PRN Q1HR PRN IV SHIVERING; Start 06/17/20 at 12:00; Stop 06/17/20 at 12:39; Status DC Piperacillin Sod/ Tazobactam Sod 4.5 gm/Sodium Chloride 100 ml @ 200 mls/hr 1X ONCE IV ; Start 06/17/20 at 12:15; Stop 06/17/20 at 12:44; Status Cancel Midazolam HCl (Versed) 5 mg Q1HR PRN IV SEDATION Last administered on 06/29/20at 13:48; Start 06/17/20 at 12:45; Stop 07/08/20 at 12:59; Status DC Fentanyl Citrate (Fentanyl 2ml Vial) 100 mcg Q1HR IVP Last administered on 06/17/20at 18:55; Start 06/17/20 at 13:00; Stop 06/17/20 at 23:41; Status DC Piperacillin Sod/ Tazobactam Sod 3.375 gm/Sodium Chloride 50 ml @ 100 mls/hr Q6H IV Last administered on 06/27/20at 05:31; Start 06/17/20 at 16:00; Stop 06/27/20 at 11:30; Status DC Potassium Bicarbonate (Potassium Effervescent Tablet) 40 meq 1X ONCE NG Last administered on 06/18/20at 10:00; Start 06/18/20 at 09:45; Stop 06/18/20 at 09:48; Status DC Albuterol/ Ipratropium (Duoneb) 3 ml RTQID NEB Last administered on 07/16/20at 07:13; Start 06/18/20 at 20:00 Famotidine (Pepcid Vial) 20 mg BID IVP Last administered on 07/02/20at 08:05; Start 06/18/20 at 21:00; Stop 07/02/20 at 10:23; Status DC Enoxaparin Sodium (Lovenox 40mg Syringe) 40 mg Q24H SQ Last administered on 07/15/20at 21:39; Start 06/18/20 at 21:00 Levothyroxine Sodium (Synthroid) 75 mcg DAILY06 PO Last administered on 1at 05:44; Start 06/18/20 at 21:00 Fentanyl Citrate 30 ml @ 0 mls/hr CONT PRN IV SEE PROTOCOL Last administered on 06/28/20at 04:56; Start 06/18/20 at 20:15; Stop 06/29/20 at 11:47; Status DC Carvedilol (Coreg) 3.125 mg BIDWMEALS PO Last administered on 07/16/20at 09:19; Start 06/19/20 at 17:00 Atorvastatin Calcium (Lipitor) 20 mg QHS PO Last administered on 07/15/20at 21:40; Start 06/19/20 at 21:00 Aspirin (Aspirin Chewable) 81 mg DAILYWBKFT PO Last administered on 07/16/20at 09:18; Start 06/20/20 at 08:00 Aspirin (Aspirin Chewable) 81 mg 1X ONCE PO Last administered on 06/19/20at 15:57; Start 06/19/20 at 15:30; Stop 06/19/20 at 15:37; Status DC Potassium Chloride/Water 100 ml @ 100 mls/hr 1X ONCE IV Last administered on 06/19/20at 15:57; Start 06/19/20 at 15:30; Stop 06/19/20 at 16:29; Status DC Amiodarone HCl (Cordarone) 400 mg DAILY PO Last administered on 07/16/20at 09:18; Start 06/20/20 at 09:00 Furosemide (Lasix) 40 mg 1X ONCE IVP Last administered on 06/20/20at 14:38; Start 06/20/20 at 13:30; Stop 06/20/20 at 13:31; Status DC Potassium Chloride/Water 100 ml @ 100 mls/hr 1X ONCE IV Last administered on 06/20/20at 14:39; Start 06/20/20 at 13:30; Stop 06/20/20 at 14:29; Status DC Dexmedetomidine HCl 400 mcg/ Sodium Chloride 100 ml @ 0 mls/hr CONT PRN IV PER PROTOCOL Last administered on 06/29/20at 06:11; Start 06/21/20 at 10:45; Stop 06/29/20 at 11:47; Status DC Sodium Chloride 500 ml @ 500 mls/hr 1X PRN PRN IV SEE COMMENTS; Start 06/21/20 at 10:45 Atropine Sulfate (ATROPINE 0.5mg SYRINGE) 0.5 mg PRN Q5MIN PRN IV SEE COMMENTS; Start 06/21/20 at 10:45; Stop 06/29/20 at 11:47; Status DC Fentanyl Citrate (Fentanyl 2ml Vial) 50 mcg PRN Q2HR PRN IVP PAIN Last administered on 07/12/20at 20:27; Start 06/23/20 at 16:45 Midazolam HCl 100 ml @ 0 mls/hr CONT PRN IV SEE PROTOCOL Last administered on 06/28/20at 03:00; Start 06/25/20 at 11:45; Stop 06/29/20 at 11:47; Status DC Lidocaine HCl (Xylocaine-Mpf 1% 2ml Vial) 2 ml STK-MED ONCE .ROUTE ; Start 06/25/20 at 14:21; Stop 06/25/20 at 14:21; Status DC Iohexol (Omnipaque 300 Mg/ml) 100 ml STK-MED ONCE .ROUTE ; Start 06/25/20 at 14:21; Stop 06/25/20 at 14:21; Status DC Heparin Sodium/ Sodium Chloride 1,000 ml @ As Directed STK-MED ONCE .ROUTE ; Start 06/25/20 at 14:21; Stop 06/25/20 at 14:21; Status DC Heparin Sodium (Porcine) (Heparin Sodium) 10,000 unit STK-MED ONCE .ROUTE ; Start 06/25/20 at 14:31; Stop 06/25/20 at 14:31; Status DC Verapamil HCl (Verapamil) 5 mg STK-MED ONCE .ROUTE ; Start 06/25/20 at 14:31; Stop 06/25/20 at 14:31; Status DC Nitroglycerin (Nitroglycerin) 200 mcg STK-MED ONCE .ROUTE ; Start 06/25/20 at 14:31; Stop 06/25/20 at 14:31; Status DC Nitroglycerin (Nitroglycerin) 200 mcg 1X ONCE IART Last administered on 06/25/20at 15:09; Start 06/25/20 at 15:15; Stop 06/25/20 at 15:16; Status DC Verapamil HCl (Verapamil) 2.5 mg 1X ONCE IART Last administered on 06/25/20at 15:09; Start 06/25/20 at 15:15; Stop 06/25/20 at 15:16; Status DC Heparin Sodium (Porcine) (Heparin Sodium) 2,500 unit 1X ONCE IART Last administered on 06/25/20at 15:09; Start 06/25/20 at 15:15; Stop 06/25/20 at 15:16; Status DC Heparin Sodium/ Sodium Chloride (HEPARIN for ARTERIAL LINE FLUSH) 1,000 unit 1X ONCE IART Last administered on 06/25/20at 15:09; Start 06/25/20 at 15:15; Stop 06/25/20 at 15:16; Status DC Iohexol (Omnipaque 300 Mg/ml) 30 ml 1X ONCE IART Last administered on 06/25/20at 15:09; Start 06/25/20 at 15:15; Stop 06/25/20 at 15:16; Status DC Lidocaine HCl (Xylocaine-Mpf 1% 2ml Vial) 2 ml 1X ONCE INJ Last administered on 06/25/20at 15:09; Start 06/25/20 at 15:15; Stop 06/25/20 at 15:16; Status DC Amino Acids/ Glycerin/ Electrolytes 1,000 ml @ 80 mls/hr [id number] IV Last administered on 06/27/20at 20:50; Start 06/25/20 at 17:30; Stop 06/28/20 at 11:35; Status DC Potassium Chloride/Water 100 ml @ 100 mls/hr Q1H IV Last administered on 06/25/20at 18:46; Start 06/25/20 at 18:00; Stop 06/25/20 at 19:59; Status DC Rocuronium [place] (Zemuron) 50 mg STK-MED ONCE .ROUTE ; Start 06/26/20 at 11:37; Stop 06/26/20 at 11:38; Status DC Cellulose (Surgicel Fibrillar 1x2) 1 each STK-MED ONCE .ROUTE Last administered on 06/26/20at 13:20; Start 06/26/20 at 12:19; Stop 06/26/20 at 12:19; Status DC Bupivacaine HCl (Sensorcaine Mpf 0.5%) 30 ml STK-MED ONCE .ROUTE ; Start 06/26/20 at 12:19; Stop 06/26/20 at 12:19; Status DC Ondansetron HCl (Zofran) 4 mg STK-MED ONCE .ROUTE ; Start 06/26/20 at 13:13; Stop 06/26/20 at 13:13; Status DC Dexamethasone Sodium Phosphate (Decadron) 4 mg STK-MED ONCE .ROUTE ; Start 06/26/20 at 13:13; Stop 06/26/20 at 13:14; Status DC Cellulose (Surgicel Fibrillar 1x2) 1 each STK-MED ONCE .ROUTE Last administered on 06/26/20at 13:22; Start 06/26/20 at 13:25; Stop 06/26/20 at 13:25; Status DC Sevoflurane (Ultane) 30 ml STK-MED ONCE IH ; Start 06/26/20 at 13:37; Stop 06/26/20 at 13:38; Status DC Propofol (Diprivan) 200 mg STK-MED ONCE IV ; Start 06/26/20 at 13:38; Stop 06/26/20 at 13:38; Status DC Ringer's Solution 1,000 ml @ 30 mls/hr Q24H IV Last administered on 06/27/20at 08:39; Start 06/27/20 at 07:00; Stop 06/27/20 at 18:59; Status DC Prochlorperazine Edisylate (Compazine) 5 mg PACU PRN PRN IV NAUSEA, MRX1; Start 06/27/20 at 07:00; Stop 06/28/20 at 06:59; Status DC Propofol (Diprivan) 200 mg STK-MED ONCE IV ; Start 06/27/20 at 09:53; Stop 06/27/20 at 09:54; Status DC Lidocaine HCl (Lidocaine Pf 2% Vial) 5 ml STK-MED ONCE .ROUTE ; Start 06/27/20 at 09:54; Stop 06/27/20 at 09:54; Status DC Lisinopril (Prinivil) 5 mg DAILY PO Last administered on 07/04/20at 09:23; Start 06/29/20 at 09:00; Stop 07/04/20 at 14:46; Status DC Acetaminophen/ Hydrocodone Bitart (Lortab 7.5-325/ 15ml Oral Solution) 10 ml 1X ONCE PEG Last administered on 06/28/20at 12:37; Start 06/28/20 at 12:30; Stop 06/28/20 at 12:31; Status DC Piperacillin Sod/ Tazobactam Sod 3.375 gm/Sodium Chloride 50 ml @ 100 mls/hr Q6HRS IV Last administered on 07/07/20at 06:11; Start 06/29/20 at 10:00; Stop 07/07/20 at 09:51; Status DC Vecuronium [place] (Norcuron Bolus) 10 mg STK-MED ONCE IV ; Start 06/29/20 at 14:31; Stop 06/29/20 at 14:31; Status DC Propofol 100 ml @ 0 mls/hr CONT PRN IV PER PROTOCOL Last administered on 07/02/20at 07:26; Start 06/29/20 at 16:30; Stop 07/08/20 at 12:58; Status DC Vecuronium [place] (Norcuron Bolus) 10 mg 1X ONCE IV Last administered on 06/29/20at 14:31; Start 06/29/20 at 14:31; Stop 06/29/20 at 17:19; Status DC Daptomycin 400 mg/ Sodium Chloride 50 ml @ 100 mls/hr Q24H IV Last administered on 07/04/20at 09:25; Start 06/30/20 at 10:00; Stop 07/05/20 at 08:14; Status DC Famotidine (Pepcid) 20 mg QHS GT Last administered on 07/15/20at 21:39; Start 07/02/20 at 21:00 Haloperidol Lactate (Haldol Inj) 5 mg Q8HRS IVP Last administered on 07/03/20at 06:00; Start 07/02/20 at 14:00; Stop 07/03/20 at 12:40; Status DC Micafungin Sodium 100 mg/Dextrose 100 ml @ 100 mls/hr Q24H IV Last administered on 07/05/20at 08:04; Start 07/03/20 at 09:00; Stop 07/05/20 at 08:14; Status DC Alteplase, Recombinant (Cathflo For Central Catheter Clearance) 1 mg 1X ONCE INT CAT Last administered on 07/03/20at 08:45; Start 07/03/20 at 08:45; Stop 07/03/20 at 08:46; Status DC Haloperidol Lactate (Haldol Inj) 2.5 mg PRN Q6HRS PRN IVP AGITATION; Start 07/03/20 at 12:30; Stop 07/03/20 at 12:40; Status DC Haloperidol Lactate (Haldol Inj) 2.5 mg PRN Q6HRS PRN IVP AGITATION Last administered on 07/04/20at 01:04; Start 07/03/20 at 14:00; Stop 07/04/20 at 08 :04; Status DC Haloperidol Lactate (Haldol Inj) 2.5 mg Q8HRS IVP ; Start 07/04/20 at 10:00; Stop 07/04/20 at 08:15; Status DC Haloperidol Lactate (Haldol Inj) 2.5 mg PRN Q8HRS PRN IVP AGITATION; Start 07/04/20 at 08:15; Stop 07/05/20 at 10:35; Status DC Lisinopril (Prinivil) 20 mg BID PO Last administered on 07/16/20at 09:19; Start 07/04/20 at 21:00 Haloperidol (Haldol) 0.5 mg PRN Q8HRS PRN PO AGITATION-2ND CHOICE Last administered on 07/12/20at 16:13; Start 07/05/20 at 10:45 Acetaminophen (Tylenol) 650 mg PRN Q6HRS PRN PO MILD PAIN / TEMP > 100.3'F Last administered on 07/09/20at 21:20; Start 07/06/20 at 13:30 Amoxicillin/ Clavulanate Potassium (Augmentin 875/ 125mg) 1 tab BID PO Last administered on 07/11/20at 19:59; Start 07/07/20 at 21:00; Stop 07/12/20 at 09:57; Status DC Diphenhydramine HCl (Benadryl Oral Elixir) 25 mg PRN Q6HRS PRN PEG ITCHING Last administered on 07/11/20at 19:52; Start 07/10/20 at 19:15 Lorazepam (Ativan Inj) 1 mg PRN Q6HRS PRN IVP ANXIETY / AGITATION Last administered on 07/11/20at 05:21; Start 07/11/20 at 05:15; Stop 07/11/20 at 09:07; Status DC Zolpidem Tartrate (Ambien) 2.5 mg HS PO Last administered on 07/11/20at 19:52; Start 07/11/20 at 21:00; Stop 07/12/20 at 09:57; Status DC Diphenhydramine HCl (Benadryl) 50 mg PRN Q6HRS PRN IVP itching/insomina Last administered on 07/12/20at 20:39; Start 07/12/20 at 01:00 Haloperidol Lactate (Haldol Inj) 5 mg PRN Q6HRS PRN IVP AGITATION Last administered on 07/14/20at 00:49; Start 07/12/20 at 01:00 Zolpidem Tartrate (Ambien) 5 mg HS PO Last administered on 07/14/20at 21:28; Start 07/12/20 at 21:00; Stop 07/15/20 at 10:51; Status DC Lorazepam (Ativan) 1 mg PRN Q6HRS PRN PO ANXIETY / AGITATION Last administered on 07/13/20at 01:45; Start 07/12/20 at 10:00; Stop 07/14/20 at 10:49; Status DC Fluconazole (Diflucan) 150 mg 1X ONCE PO ; Start 07/12/20 at 16:30; Stop 07/12/20 at 16:31; Status Cancel Clotrimazole (Mycelex-7) 1 reji HS VG Last administered on 07/15/20at 21:39; Start 07/12/20 at 21:00; Stop 07/19/20 at 20:59 Potassium Bicarbonate (Potassium Effervescent Tablet) 30 meq 1X ONCE PEG Last administered on 07/13/20at 09:43; Start 07/13/20 at 09:00; Stop 07/13/20 at 09:01; Status DC Sodium Chloride 1,000 ml @ 1,000 mls/hr 1X ONCE IV Last administered on 07/13/20at 12:02; Start 07/13/20 at 12:00; Stop 07/13/20 at 12:59; Status DC Haloperidol Lactate (Haldol Inj) 2 mg 1X ONCE IVP Last administered on 07/13/20at 12:03; Start 07/13/20 at 12:00; Stop 07/13/20 at 12:01; Status DC Neomycin/ Polymyxin/ Bacitracin (Triple Antibiotic Ointment) 1 pkt BID TP Last administered on 07/16/20at 09:18; Start 07/14/20 at 15:00 Potassium Bicarbonate (Potassium Effervescent Tablet) 20 meq BID PEG Last administered on 07/16/20at 09:19; Start 07/15/20 at 14:00 Active Scripts Active Reported Acetaminophen-Diphenhyd 500-25 (Acetaminophen/Diphenhydramine) 1 Each Tablet 1 Each PO HS PRN Naproxen 500 Mg Tablet 1 Tab PO BID PRN 30 Days Tramadol Hcl 50 Mg Tablet 50 Mg PO Q4HRS Levothyroxine Sodium 75 Mcg Tablet 1 Tab PO DAILY Adderall 20 Mg Tablet (Dextroamphetamine/Amphetamine) 20 Mg Tablet 1 Tab PO DAILY MDD 1 Tablet(s) 5 Days Prozac (Fluoxetine Hcl) 20 Mg Capsule 1 Cap PO [id number] Vitals/I & O Vital Sign - Last 24 Hours 07/15/20 07/15/20 07/15/20 07/15/20 15:00 15:17 16:39 19:00 Temp 98.1 98.1 98.1 98.1 Pulse 85 85 78 Resp 16 18 B/P (MAP) 152/74 (100) 152/74 146/54 (84) Pulse Ox 95 93 100 O2 Delivery Room Air Room Air Room Air 07/15/20 07/15/20 07/16/20 07/16/20 20:35 21:40 07:00 07:14 Temp 97.9 97.9 Pulse 78 91 Resp 18 B/P (MAP) 146/54 130/65 (86) Pulse Ox 96 95 96 O2 Delivery Room Air Room Air Room Air 07/16/20 07/16/20 07/16/20 09:18 09:19 09:19 Pulse 91 91 91 B/P (MAP) 130/65 130/65 130/65 Intake and Output 07/15/20 07/15/20 07/16/20 15:00 23:00 07:00 Intake Total 125 ml 100 ml Balance 125 ml 100 ml Justicifation of Admission Dx: Justifications for Admission: Justification of Admission Dx: N/A JEFF FLORES MD Jul 16, 2020 11:05
[2020-07-16 11:10] VITALS: BP 126/60
--- NOTE | 2020-07-16 12:13 | NUR ---
SW following for discharge planning. Spoke with RN and reviewed chart. Trach removed. Pt on room air. PT recommendation is acute rehab. SW spoke with spouse today about sending out referrals. Spouse requesting family meeting for tomorrow, / at 9am with his sons and this SW to discuss discharge planning. SW to continue following.
[2020-07-16 14:55] VITALS: BP 141/64
--- NOTE | 2020-07-16 16:23 | PDOC ---
PULMONARY PROGRESS NOTES DATE: 07/16/20 TIME: 16:22 Subjective DECANULATE ON RA NO DISTRESS S/P cardiac arrest 06/17 S/P trach on 06/26 ----- S/P peg 06/27 Vitals Vital Signs Date Time Temp Pulse Resp B/P (MAP) Pulse Ox O2 Delivery O2 Flow Rate FiO2 07/16/20 14:55 97.6 78 18 141/64 (89) 100 Room Air 97.6 07/15/20 07:00 8.0 Comments Nonverbal Lungs: Clear Cardiovascular: S1, S2 Abdomen: Soft, Non-tender Extremities: No Edema Skin: Warm Labs Laboratory Tests Test 07/14/20 17:22 07/14/20 23:40 07/15/20 06:13 07/15/20 10:46 Glucose (Fingerstick) 117 mg/dL (70-99) 102 mg/dL (70-99) 123 mg/dL (70-99) White Blood Count 10.4 x10^3/uL (4.0-11.0) Red Blood Count 4.07 x10^6/uL (3.50-5.40) Hemoglobin 11.8 g/dL (12.0-15.5) Hematocrit 36.5 % (36.0-47.0) Mean Corpuscular Volume 90 fL (79-100) Mean Corpuscular Hemoglobin 29 pg (25-35) Mean Corpuscular Hemoglobin Concent 32 g/dL (31-37) Red Cell Distribution Width 13.3 % (11.5-14.5) Platelet Count 315 x10^3/uL (140-400) Neutrophils (%) (Auto) 79 % (31-73) Lymphocytes (%) (Auto) 14 % (24-48) Monocytes (%) (Auto) 5 % (0-9) Eosinophils (%) (Auto) 1 % (0-3) Basophils (%) (Auto) 0 % (0-3) Neutrophils # (Auto) 8.2 x10^3/uL (1.8-7.7) Lymphocytes # (Auto) 1.5 x10^3/uL (1.0-4.8) Monocytes # (Auto) 0.5 x10^3/uL (0.0-1.1) Eosinophils # (Auto) 0.1 x10^3/uL (0.0-0.7) Basophils # (Auto) 0.0 x10^3/uL (0.0-0.2) Sodium Level 145 mmol/L (136-145) Potassium Level 3.1 mmol/L (3.5-5.1) Chloride Level 107 mmol/L (98-107) Carbon Dioxide Level 28 mmol/L (21-32) Anion Gap 10 (6-14) Blood Urea Nitrogen 14 mg/dL (7-20) Creatinine 0.5 mg/dL (0.6-1.0) Estimated GFR (Cockcroft-Gault) 127.2 BUN/Creatinine Ratio 28 (6-20) Glucose Level 119 mg/dL (70-99) Calcium Level 9.0 mg/dL (8.5-10.1) Total Bilirubin 0.4 mg/dL (0.2-1.0) Aspartate Amino Transf (AST/SGOT) 24 U/L (15-37) Alanine Aminotransferase (ALT/SGPT) 30 U/L (14-59) Alkaline Phosphatase 75 U/L (46-116) Total Protein 6.6 g/dL (6.4-8.2) Albumin 2.9 g/dL (3.4-5.0) Albumin/Globulin Ratio 0.8 (1.0-1.7) Test 07/15/20 11:52 07/15/20 18:20 07/16/20 08:30 07/16/20 11:43 Glucose (Fingerstick) 104 mg/dL (70-99) 105 mg/dL (70-99) 126 mg/dL (70-99) Sodium Level 145 mmol/L (136-145) Potassium Level 3.7 mmol/L (3.5-5.1) Chloride Level 106 mmol/L (98-107) Carbon Dioxide Level 29 mmol/L (21-32) Anion Gap 10 (6-14) Blood Urea Nitrogen 11 mg/dL (7-20) Creatinine 0.5 mg/dL (0.6-1.0) Estimated GFR (Cockcroft-Gault) 127.2 Glucose Level 118 mg/dL (70-99) Calcium Level 9.2 mg/dL (8.5-10.1) Laboratory Tests Test 07/15/20 18:20 07/16/20 08:30 07/16/20 11:43 Glucose (Fingerstick) 105 mg/dL (70-99) 126 mg/dL (70-99) Sodium Level 145 mmol/L (136-145) Potassium Level 3.7 mmol/L (3.5-5.1) Chloride Level 106 mmol/L (98-107) Carbon Dioxide Level 29 mmol/L (21-32) Anion Gap 10 (6-14) Blood Urea Nitrogen 11 mg/dL (7-20) Creatinine 0.5 mg/dL (0.6-1.0) Estimated GFR (Cockcroft-Gault) 127.2 Glucose Level 118 mg/dL (70-99) Calcium Level 9.2 mg/dL (8.5-10.1) Medications Active Scripts Medications Dose Route/Sig Max Daily Dose Days Date Category Acetaminophen-Diphenhyd 500-25 (Acetaminophen/Diphenhydramine) 1 Each Tablet 1 Each PO HS PRN 06/18/20 Reported Naproxen 500 Mg Tablet 1 Tab PO BID PRN 30 06/18/20 Reported Tramadol Hcl 50 Mg Tablet 50 Mg PO Q4HRS 06/18/20 Reported Levothyroxine Sodium 75 Mcg Tablet 1 Tab PO DAILY 06/18/20 Reported Adderall 20 Mg Tablet (Dextroamphetamine/Amphetamine) 20 Mg Tablet 1 Tab PO DAILY MDD 1 Tablet(s) 5 06/18/20 Reported Prozac (Fluoxetine Hcl) 20 Mg Capsule 1 Cap PO [id number] 06/18/20 Reported Comments CXR IMPRESSION: Left lung base opacities likely consolidative process such as pneumonia. Small left pleural effusion. Impression . IMPRESSION: 1. Acute respiratory failure secondary to [id number] cardiopulmonary arrest 2. Lzg-[id number] ventricular fibrillation and asystole leading to anoxic brain injury. 3. Anoxic encephalopathy 4. COVID neg 5. Morbid obesity. 6. Leukocytosis--improved 7. Lactic acidosis secondary to [id number]-[id number]-fnfygmqn cardiac arrest. 8. Abnormal x-ray revealing bibasilar atelectasis, infiltrates. 9. Pneumothorax secondary to CPR.resolved 10. Sternal sternal fracture secondary to CPR. 11. Pneumonia positive, gram-negative, gram-positive. 12. UTI 13. Status post trach, DECANULATE 07/15 Plan . CONTINUE SUPPORT WILL SEE PRN DC Ambien As needed Haldol as needed Trach 06/26/20, PEG on 06/27/20 Follow infectious disease recommendations in regards to antibiotics--currently off antibiotics Follow neurology recs--no new recommendations Follow Cardiology recs-- post cardiac cath 06/25/20-- cath was clean w/ normal filling pressures Continue tube feeding for nutritional support Do not awaken him overnight if at all possible to establish regular sleep cycle DVT/GI PPX PT. is FULL CODE NIKA GARNER MD Jul 16, 2020 16:23
[2020-07-16 19:00] VITALS: BP 145/79
[2020-07-16] MEDS: CLOTRIMAZOLE 1% VAGINAL CREAM 45GM TUBE. VG SCH (21:25)
[2020-07-16] MEDS: ENOXAPARIN 40 MG/0.4 ML SYRINGE. SQ SCH (21:25)
[2020-07-16] MEDS: FAMOTIDINE 20 MG TABLET. GT SCH (21:26)
[2020-07-16] MEDS: ATORVASTATIN CALCIUM 20 MG TABLET PO SCH (21:26)
[2020-07-16 23:00] VITALS: BP 108/46
[2020-07-17 03:00] VITALS: BP 123/83
[2020-07-17] MEDS: LEVOTHYROXINE 75 MCG TABLET PO SCH (05:50)
[2020-07-17 07:00] VITALS: BP 137/81
[2020-07-17] MEDS: IPRATRPIUM/ALBUTEROL 0.5/2.5MG 3 ML NEBU. NEB SCH ×4 (07:32→20:29)
[2020-07-17] MEDS: ASPIRIN CHEWABLE 81 MG TABLET. PO SCH (09:33)
[2020-07-17] MEDS: POTASSIUM BICARB 20 MEQ EFFERVESCENT TABLET. PEG SCH ×2 (09:33→20:36)
[2020-07-17] MEDS: LISINOPRIL 20 MG TABLET PO SCH ×2 (09:34→20:36)
[2020-07-17] MEDS: AMIODARONE HCL 200 MG TABLET. PO SCH (09:34)
[2020-07-17] MEDS: CARVEDILOL 3.125 MG TABLET. PO SCH ×2 (09:35→18:18)
[2020-07-17] MEDS: NEOMY/BACITR/POLYMYXIN OINT PACKET. TP SCH ×2 (09:35→20:36)
--- NOTE | 2020-07-17 10:58 | PDOC ---
Date of Service: DATE: 07/17/20 TIME: 10:56 Objective: Objective: Reviewed chart - family meeting w/ SW for discharge planning today. Vital Signs: Vital Signs Date Time Temp Pulse Resp B/P (MAP) Pulse Ox O2 Delivery O2 Flow Rate FiO2 07/17/20 09:35 96 137/81 07/17/20 07:34 97 Room Air 07/17/20 07:00 97.6 18 97.6 Labs: Laboratory Tests Test 07/16/20 11:43 07/16/20 16:54 07/16/20 20:46 07/17/20 07:42 Glucose (Fingerstick) 126 mg/dL (70-99) 103 mg/dL (70-99) 115 mg/dL (70-99) 106 mg/dL (70-99) PE: GEN: NAD LUNGS: CTAB HEART: RRR ABD: PEG in place, site clean/dry NEURO/PSYCH: moving legs around, not purposeful movements A/P: Anoxic encephalopathy s/p PEG -- Continue same per GI. Justicifation of Admission Dx: Justifications for Admission: Justification of Admission Dx: N/A SHAHBAZ FOSS Jul 17, 2020 10:58
[2020-07-17 11:00] VITALS: BP 133/76
--- NOTE | 2020-07-17 11:10 | PDOC ---
PROGRESS NOTES Date of Service: DATE: 07/17/20 TIME: 11:09 Chief Complaint Chief Complaint IMPRESSION POST covid cardiomyopathy acute systolic CHF Severe NICM: EF 25%. No significant CAD per [facility] anoxic brain injury Cardiac arrest with resuscitation and probable pneumonia, sternal fracture and pneumothorax secondary to CPR, leukocytosis, electrolyte disturbance, hypokalemia, lactic acidosis, elevated troponin. Family wants to try 1 month at [facility] Transfer to [facility] DC Ativan, use Haldol Trach 06/26/20, PEG on 06/27/20 History of Present Illness History of Present Illness 2-2 patient seems to be status quo, unfortunately is having a tough time with the loss of his partner. He understands that he cannot take care of her at home and we are awaiting for case management to provide us with a viable option moving forward 2-1 no acute events reported overnight, case discussed with nursing staff patient in no acute distress no complaints during my visit, hopefully we can start the process of discharge she will certainly need transitioning to an institution unlikely to be able to be cared for at home since she requires full- time care 07-15 trach removed d/w DR Aguiar have stopped iv ativan yesterday, SAID YES TO when asked about some remote memories 07-14 DC Ativan, use Haldol appears less agitated d/w in room Trach 06/26/20, PEG on 06/27/20 D/W IN ROOM, SHE IS NOW TRACKING AT TIMES 07/13 MOVING BOTH LEGS AND ARMS without apparent purpose, family working on placement barriers , HYPOKALEMIC, ON REPLACEMENT D/W RN, ALSO VAG CANDIDIASIS, ON MONISTAT VAG CREAM D/W RN 07/09 S/P cardiac arrest 06/17 S/P trach on 06/26 ----- S/P peg 06/27 NO PURPOSEFUL movement D/W special procedures nurse wants to try 1 month at [facility] Transfer to [facility], denied by all facilities contacted to date d/w rn 07/08: Patient seen and evaluated with at bedside. No significant change overnight, still no purposeful movements. Sounds as though family still plans to hold off on any change in CODE STATUS or goals of care until at least 30 days after admission date. did show me some video of patient smiling and having meaningful exchange with a family friend today. 07/07. Transfer out of ICU to the medical floors. Discussed with , he feels that music is helping patient. She will occasionally check in with eyes, but no purposeful movements. Has been mentioned trying to give 30 days for admission to show any signs of meaningful improvement. At which time decision will be made about hospice in future goals of care. 07/06, will transfer to floor, no tele, off vent now for some time. discussed with , she does seem improved, she had a tiny smile to some music earlier, still not following commands or any purposeful response 07/05, about the same, discussed my previous thoughts again with and son, not following commands, movement is seeming to be mostly reflexive. they still want to cont iwth the 30 days plan to give her a chance to improve. I discussed possible transition to hospice, they want to wait until that time. 07/04-, minmal change, some relfexive movements, had a video of her withdrawing to light touch to face, soem work with PT, not following commands as directed I discussed poor prognosis with at length, that as days go by, her chances for meaningful recovery continue to dim. I discussed consideration of hospice care. 07/03/2020, discussed plan with family at length yesterday Patient seen and examined in the ICU plan LTAC, but denied start PT and OT moving around a lot She is still not very responsive but at the same time less agitated Vitals Vitals Vital Signs Date Time Temp Pulse Resp B/P (MAP) Pulse Ox O2 Delivery O2 Flow Rate FiO2 07/17/20 09:35 96 137/81 07/17/20 07:34 97 Room Air 07/17/20 07:00 97.6 18 97.6 Physical Exam Physical Exam GENERAL: Opens eyes transiently, does not follow any commands, Moving arms and legs, not thrusting tongue HEENT: Both pupils are round and reacting. No conjunctival lesion. NECK: Supple. Trach present, erythema and drainage present around trach site improving LUNGS: Decreased breath sounds bilaterally. HEART: S1, S2, regular. No gallop or murmur. ABDOMEN: Soft, nontender. No organomegaly.peg tube + fecal tube , Jolly present EXTREMITIES: No edema or cyanosis. toe amputation of the Rt foot,healed scars SKIN: Unremarkable. NEUROLOGICAL: Opens eyes transiently does not follow any commands, LAUGHS when talking to family General: Cooperative, No acute distress Heart: Regular rate, Normal S1, Normal S2 Lungs: Clear Abdomen: Normal bowel sounds, Soft, No tenderness, No hepatosplenomegaly, No masses Extremities: No cyanosis Skin: No rashes, No breakdown Labs LABS Laboratory Tests Test 07/16/20 11:43 07/16/20 16:54 07/16/20 20:46 07/17/20 07:42 Glucose (Fingerstick) 126 mg/dL (70-99) 103 mg/dL (70-99) 115 mg/dL (70-99) 106 mg/dL (70-99) Assessment and Plan Assessmemt and Plan Problems Medical Problems: (1) Cardiac arrest Status: Acute (2) Fracture of ribs, multiple Status: Acute (3) Hyperglycemia Status: Acute (4) Pneumonia Status: Acute (5) Pneumothorax, right Status: Acute (6) Sternal fracture Status: Acute (7) VF (ventricular fibrillation) Status: Acute Comment Review of Relevant I have reviewed the following items afua (where applicable) has been applied. Labs Laboratory Tests Test 07/15/20 11:52 07/15/20 18:20 07/16/20 08:30 07/16/20 11:43 Glucose (Fingerstick) 104 mg/dL (70-99) 105 mg/dL (70-99) 126 mg/dL (70-99) Sodium Level 145 mmol/L (136-145) Potassium Level 3.7 mmol/L (3.5-5.1) Chloride Level 106 mmol/L (98-107) Carbon Dioxide Level 29 mmol/L (21-32) Anion Gap 10 (6-14) Blood Urea Nitrogen 11 mg/dL (7-20) Creatinine 0.5 mg/dL (0.6-1.0) Estimated GFR (Cockcroft-Gault) 127.2 Glucose Level 118 mg/dL (70-99) Calcium Level 9.2 mg/dL (8.5-10.1) Test 07/16/20 16:54 07/16/20 20:46 07/17/20 07:42 Glucose (Fingerstick) 103 mg/dL (70-99) 115 mg/dL (70-99) 106 mg/dL (70-99) Laboratory Tests Test 07/16/20 11:43 07/16/20 16:54 07/16/20 20:46 07/17/20 07:42 Glucose (Fingerstick) 126 mg/dL (70-99) 103 mg/dL (70-99) 115 mg/dL (70-99) 106 mg/dL (70-99) Microbiology 07/10/20 Urine Culture - Final, Complete 06/30/20 Gram Stain - Final, Complete 06/30/20 Aerobic and Anaerobic Culture - Final, Complete 06/17/20 Blood Culture - Final, Complete NO GROWTH AFTER 5 DAYS Medications Current Medications Amiodarone HCl 150 mg/Dextrose 103 ml @ 618 mls/hr 1X ONCE IV Last administered on 06/17/20at 07:00; Start 06/17/20 at 07:00; Stop 06/17/20 at 07:09; Status DC Amiodarone HCl 450 mg/Dextrose 259 ml @ 33 mls/hr 1X ONCE IV ; Start 06/17/20 at 07:00; Stop 06/17/20 at 14:50; Status DC Sodium Chloride 1,000 ml @ 1,000 mls/hr 1X ONCE IV Last administered on 06/17/20at 08:11; Start 06/17/20 at 07:15; Stop 06/17/20 at 08:14; Status DC Midazolam HCl 100 ml @ 0 mls/hr 1X ONCE IV ; Start 06/17/20 at 07:15; Stop 06/17/20 at 07:16; Status DC Midazolam HCl (Versed) 5 mg STK-MED ONCE .ROUTE ; Start 06/17/20 at 07:17; Stop 06/17/20 at 07:17; Status DC Iohexol (Omnipaque 300 Mg/ml) 75 ml 1X ONCE IV Last administered on 06/17/20at 08:17; Start 06/17/20 at 08:15; Stop 06/17/20 at 08:16; Status DC Iohexol (Omnipaque 350 Mg/ml) 100 ml 1X ONCE IV Last administered on 06/17/20at 08:17; Start 06/17/20 at 08:15; Stop 06/17/20 at 08:16; Status DC Info (CONTRAST GIVEN -- Rx MONITORING) 1 each PRN DAILY PRN MC SEE COMMENTS; Start 06/17/20 at 08:15; Stop 06/19/20 at 08:14; Status DC Sodium Chloride 1,000 ml @ 1,000 mls/hr 1X ONCE IV Last administered on 06/17/20at 08:25; Start 06/17/20 at 08:15; Stop 06/17/20 at 09:14; Status DC Potassium Chloride/Water 100 ml @ 50 mls/hr 1X ONCE IV Last administered on 06/17/20at 10:16; Start 06/17/20 at 09:00; Stop 06/17/20 at 10:59; Status DC Piperacillin Sod/ Tazobactam Sod (Zosyn Per Pharmacy) 1 each PRN DAILY PRN MC SEE COMMENTS; Start 06/17/20 at 08:45; Stop 06/27/20 at 11:36; Status DC Piperacillin Sod/ Tazobactam Sod 4.5 gm/Sodium Chloride 100 ml @ 200 mls/hr 1X ONCE IV Last administered on 06/17/20at 10:15; Start 06/17/20 at 08:45; Stop 06/17/20 at 09:14; Status DC Sodium Chloride 1,000 ml @ 125 mls/hr Q8H IV Last administered on 06/17/20at 23:39; Start 06/17/20 at 09:00; Stop 06/18/20 at 08:59; Status DC Propofol (Diprivan) 200 mg 1X ONCE IV Last administered on 06/17/20at 09:00; Start 06/17/20 at 09:00; Stop 06/17/20 at 09:01; Status DC Propofol 100 ml @ As Directed STK-MED ONCE IV ; Start 06/17/20 at 09:05; Stop 06/17/20 at 09:05; Status DC Lidocaine HCl (Lidocaine 1% 20ml Vial) 20 ml 1X ONCE INJ Last administered on 06/17/20at 09:15; Start 06/17/20 at 09:15; Stop 06/17/20 at 09:20; Status DC Lidocaine HCl (Xylocaine-Mpf 1% 5ml Vial) 5 ml STK-MED ONCE .ROUTE ; Start 06/17/20 at 09:26; Stop 06/17/20 at 09:26; Status DC Sodium Chloride 1,000 ml @ 1,000 mls/hr 1X ONCE IV Last administered on 06/17/20at 10:15; Start 06/17/20 at 10:15; Stop 06/17/20 at 11:14; Status DC Propofol 100 ml @ 3.819 mls/ hr CONT PRN IV PER PROTOCOL Last administered on 06/25/20at 06:12; Start 06/17/20 at 10:45; Stop 06/29/20 at 11:47; Status DC Fentanyl Citrate (Fentanyl 2ml Vial) 100 mcg 1X ONCE IV ; Start 06/17/20 at 12:00; Stop 06/17/20 at 12:39; Status DC Midazolam HCl (Versed) 2 mg 1X ONCE IV ; Start 06/17/20 at 12:00; Stop 06/17/20 at 12:39; Status DC Magnesium Sulfate/ Dextrose 100 ml @ 100 mls/hr 1X ONCE IV Last administered on 06/17/20at 12:22; Start 06/17/20 at 12:00; Stop 06/17/20 at 12:39; Status DC Buspirone HCl (Buspar) 30 mg Q8H NG Last administered on 06/17/20at 12:31; Start 06/17/20 at 12:00; Stop 06/17/20 at 12:39; Status DC Glycerin/ Hypromellose/ Polyethylene (Artificial Tears) 1 drop Q6HRS OU ; Start 06/17/20 at 12:00; Stop 06/17/20 at 12:39; Status DC Glycerin/ Hypromellose/ Polyethylene (Artificial Tears) 1 drop PRN Q15MIN PRN OU DRY EYE; Start 06/17/20 at 12:00; Stop 06/17/20 at 12:39; Status DC Heparin Sodium (Porcine) (Heparin Sodium) 5,000 unit BID SQ ; Start 06/17/20 at 21:00; Stop 06/17/20 at 12:39; Status DC Pantoprazole Sodium (PROTONIX VIAL for IV PUSH) 40 mg DAILY IVP ; Start 06/18/20 at 09:00; Stop 06/17/20 at 12:39; Status DC Fentanyl Citrate 30 ml @ 0 mls/hr CONT PRN IV PER PROTOCOL.; Start 06/17/20 at 12:00; Stop 06/17/20 at 12:39; Status DC Propofol 100 ml @ 0 mls/hr CONT PRN IV PER PROTOCOL.; Start 06/17/20 at 12:00; Stop 06/17/20 at 12:39; Status DC Midazolam HCl 100 ml @ 0 mls/hr CONT PRN IV PER PROTOCOL; Start 06/17/20 at 12:00; Stop 06/17/20 at 12:39; Status DC Vecuronium Colt (Norcuron Bolus) 10 mg PRN Q1HR PRN IV SHIVERING; Start 06/17/20 at 12:00; Stop 06/17/20 at 12:39; Status DC Piperacillin Sod/ Tazobactam Sod 4.5 gm/Sodium Chloride 100 ml @ 200 mls/hr 1X ONCE IV ; Start 06/17/20 at 12:15; Stop 06/17/20 at 12:44; Status Cancel Midazolam HCl (Versed) 5 mg Q1HR PRN IV SEDATION Last administered on 06/29/20at 13:48; Start 06/17/20 at 12:45; Stop 07/08/20 at 12:59; Status DC Fentanyl Citrate (Fentanyl 2ml Vial) 100 mcg Q1HR IVP Last administered on 06/17/20at 18:55; Start 06/17/20 at 13:00; Stop 06/17/20 at 23:41; Status DC Piperacillin Sod/ Tazobactam Sod 3.375 gm/Sodium Chloride 50 ml @ 100 mls/hr Q6H IV Last administered on 06/27/20at 05:31; Start 06/17/20 at 16:00; Stop 06/27/20 at 11:30; Status DC Potassium Bicarbonate (Potassium Effervescent Tablet) 40 meq 1X ONCE NG Last administered on 06/18/20at 10:00; Start 06/18/20 at 09:45; Stop 06/18/20 at 09:48; Status DC Albuterol/ Ipratropium (Duoneb) 3 ml RTQID NEB Last administered on 07/17/20at 07:32; Start 06/18/20 at 20:00 Famotidine (Pepcid Vial) 20 mg BID IVP Last administered on 07/02/20at 08:05; Start 06/18/20 at 21:00; Stop 07/02/20 at 10:23; Status DC Enoxaparin Sodium (Lovenox 40mg Syringe) 40 mg Q24H SQ Last administered on 07/16/20at 21:25; Start 06/18/20 at 21:00 Levothyroxine Sodium (Synthroid) 75 mcg DAILY06 PO Last administered on 07/17/20at 05:50; Start 06/18/20 at 21:00 Fentanyl Citrate 30 ml @ 0 mls/hr CONT PRN IV SEE PROTOCOL Last administered on 06/28/20at 04:56; Start 06/18/20 at 20:15; Stop 06/29/20 at 11:47; Status DC Carvedilol (Coreg) 3.125 mg BIDWMEALS PO Last administered on 07/17/20 09:35; Start 06/19/20 at 17:00 Atorvastatin Calcium (Lipitor) 20 mg QHS PO Last administered on 07/16/20 21:26; Start 06/19/20 at 21:00 Aspirin (Aspirin Chewable) 81 mg DAILYWBKFT PO Last administered on 07/17/20at 09:33; Start 06/20/20 at 08:00 Aspirin (Aspirin Chewable) 81 mg 1X ONCE PO Last administered on 06/19/20at 15:57; Start 06/19/20 at 15:30; Stop 06/19/20 at 15:37; Status DC Potassium Chloride/Water 100 ml @ 100 mls/hr 1X ONCE IV Last administered on 06/19/20at 15:57; Start 06/19/20 at 15:30; Stop 06/19/20 at 16:29; Status DC Amiodarone HCl (Cordarone) 400 mg DAILY PO Last administered on 07/17/20at 09:34; Start 06/20/20 at 09:00 Furosemide (Lasix) 40 mg 1X ONCE IVP Last administered on 06/20/20at 14:38; Start 06/20/20 at 13:30; Stop 06/20/20 at 13:31; Status DC Potassium Chloride/Water 100 ml @ 100 mls/hr 1X ONCE IV Last administered on 06/20/20at 14:39; Start 06/20/20 at 13:30; Stop 06/20/20 at 14:29; Status DC Dexmedetomidine HCl 400 mcg/ Sodium Chloride 100 ml @ 0 mls/hr CONT PRN IV PER PROTOCOL Last administered on 06/29/20at 06:11; Start 06/21/20 at 10:45; Stop 06/29/20 at 11:47; Status DC Sodium Chloride 500 ml @ 500 mls/hr 1X PRN PRN IV SEE COMMENTS; Start 06/21/20 at 10:45 Atropine Sulfate (ATROPINE 0.5mg SYRINGE) 0.5 mg PRN Q5MIN PRN IV SEE COMMENTS; Start 06/21/20 at 10:45; Stop 06/29/20 at 11:47; Status DC Fentanyl Citrate (Fentanyl 2ml Vial) 50 mcg PRN Q2HR PRN IVP PAIN Last administered on 07/12/20at 20:27; Start 06/23/20 at 16:45 Midazolam HCl 100 ml @ 0 mls/hr CONT PRN IV SEE PROTOCOL Last administered on 06/28/20at 03:00; Start 06/25/20 at 11:45; Stop 06/29/20 at 11:47; Status DC Lidocaine HCl (Xylocaine-Mpf 1% 2ml Vial) 2 ml STK-MED ONCE .ROUTE ; Start 06/25/20 at 14:21; Stop 06/25/20 at 14:21; Status DC Iohexol (Omnipaque 300 Mg/ml) 100 ml STK-MED ONCE .ROUTE ; Start 06/25/20 at 14:21; Stop 06/25/20 at 14:21; Status DC Heparin Sodium/ Sodium Chloride 1,000 ml @ As Directed STK-MED ONCE .ROUTE ; Start 06/25/20 at 14:21; Stop 06/25/20 at 14:21; Status DC Heparin Sodium (Porcine) (Heparin Sodium) 10,000 unit STK-MED ONCE .ROUTE ; Start 06/25/20 at 14:31; Stop 06/25/20 at 14:31; Status DC Verapamil HCl (Verapamil) 5 mg STK-MED ONCE .ROUTE ; Start 06/25/20 at 14:31; Stop 06/25/20 at 14:31; Status DC Nitroglycerin (Nitroglycerin) 200 mcg STK-MED ONCE .ROUTE ; Start 06/25/20 at 14:31; Stop 06/25/20 at 14:31; Status DC Nitroglycerin (Nitroglycerin) 200 mcg 1X ONCE IART Last administered on 06/25/20at 15:09; Start 06/25/20 at 15:15; Stop 06/25/20 at 15:16; Status DC Verapamil HCl (Verapamil) 2.5 mg 1X ONCE IART Last administered on 06/25/20at 15:09; Start 06/25/20 at 15:15; Stop 06/25/20 at 15:16; Status DC Heparin Sodium (Porcine) (Heparin Sodium) 2,500 unit 1X ONCE IART Last administered on 06/25/20at 15:09; Start 06/25/20 at 15:15; Stop 06/25/20 at 15:16; Status DC Heparin Sodium/ Sodium Chloride (HEPARIN for ARTERIAL LINE FLUSH) 1,000 unit 1X ONCE IART Last administered on 06/25/20at 15:09; Start 06/25/20 at 15:15; Stop 06/25/20 at 15:16; Status DC Iohexol (Omnipaque 300 Mg/ml) 30 ml 1X ONCE IART Last administered on 06/25/20at 15:09; Start 06/25/20 at 15:15; Stop 06/25/20 at 15:16; Status DC Lidocaine HCl (Xylocaine-Mpf 1% 2ml Vial) 2 ml 1X ONCE INJ Last administered on 06/25/20at 15:09; Start 06/25/20 at 15:15; Stop 06/25/20 at 15:16; Status DC Amino Acids/ Glycerin/ Electrolytes 1,000 ml @ 80 mls/hr [id number] IV Last ad ministered on 06/27/20at 20:50; Start 06/25/20 at 17:30; Stop 06/28/20 at 11:35; Status DC Potassium Chloride/Water 100 ml @ 100 mls/hr Q1H IV Last administered on 06/25/20at 18:46; Start 06/25/20 at 18:00; Stop 06/25/20 at 19:59; Status DC Rocuronium Colt (Zemuron) 50 mg STK-MED ONCE .ROUTE ; Start 06/26/20 at 11:37; Stop 06/26/20 at 11:38; Status DC Cellulose (Surgicel Fibrillar 1x2) 1 each STK-MED ONCE .ROUTE Last administered on 06/26/20at 13:20; Start 06/26/20 at 12:19; Stop 06/26/20 at 12:19; Status DC Bupivacaine HCl (Sensorcaine Mpf 0.5%) 30 ml STK-MED ONCE .ROUTE ; Start 06/26/20 at 12:19; Stop 06/26/20 at 12:19; Status DC Ondansetron HCl (Zofran) 4 mg STK-MED ONCE .ROUTE ; Start 06/26/20 at 13:13; Stop 06/26/20 at 13:13; Status DC Dexamethasone Sodium Phosphate (Decadron) 4 mg STK-MED ONCE .ROUTE ; Start 06/26/20 at 13:13; Stop 06/26/20 at 13:14; Status DC Cellulose (Surgicel Fibrillar 1x2) 1 each STK-MED ONCE .ROUTE Last administered on 06/26/20at 13:22; Start 06/26/20 at 13:25; Stop 06/26/20 at 13:25; Status DC Sevoflurane (Ultane) 30 ml STK-MED ONCE IH ; Start 06/26/20 at 13:37; Stop 06/26/20 at 13:38; Status DC Propofol (Diprivan) 200 mg STK-MED ONCE IV ; Start 06/26/20 at 13:38; Stop 06/26/20 at 13:38; Status DC Ringer's Solution 1,000 ml @ 30 mls/hr Q24H IV Last administered on 06/27/20at 08:39; Start 06/27/20 at 07:00; Stop 06/27/20 at 18:59; Status DC Prochlorperazine Edisylate (Compazine) 5 mg PACU PRN PRN IV NAUSEA, MRX1; Start 06/27/20 at 07:00; Stop 06/28/20 at 06:59; Status DC Propofol (Diprivan) 200 mg STK-MED ONCE IV ; Start 06/27/20 at 09:53; Stop 06/27/20 at 09:54; Status DC Lidocaine HCl (Lidocaine Pf 2% Vial) 5 ml STK-MED ONCE .ROUTE ; Start 06/27/20 at 09:54; Stop 06/27/20 at 09:54; Status DC Lisinopril (Prinivil) 5 mg DAILY PO Last administered on 07/04/20at 09:23; Start 06/29/20 at 09:00; Stop 07/04/20 at 14:46; Status DC Acetaminophen/ Hydrocodone Bitart (Lortab 7.5-325/ 15ml Oral Solution) 10 ml 1X ONCE PEG Last administered on 06/28/20at 12:37; Start 06/28/20 at 12:30; Stop 06/28/20 at 12:31; Status DC Piperacillin Sod/ Tazobactam Sod 3.375 gm/Sodium Chloride 50 ml @ 100 mls/hr Q6HRS IV Last administered on 07/07/20at 06:11; Start 06/29/20 at 10:00; Stop 07/07/20 at 09:51; Status DC Vecuronium Colt (Norcuron Bolus) 10 mg STK-MED ONCE IV ; Start 06/29/20 at 14:31; Stop 06/29/20 at 14:31; Status DC Propofol 100 ml @ 0 mls/hr CONT PRN IV PER PROTOCOL Last administered on 07/02/20at 07:26; Start 06/29/20 at 16:30; Stop 07/08/20 at 12:58; Status DC Vecuronium Colt (Norcuron Bolus) 10 mg 1X ONCE IV Last administered on 06/29/20at 14:31; Start 06/29/20 at 14:31; Stop 06/29/20 at 17:19; Status DC Daptomycin 400 mg/ Sodium Chloride 50 ml @ 100 mls/hr Q24H IV Last administered on 07/04/20at 09:25; Start 06/30/20 at 10:00; Stop 07/05/20 at 08:14; Status DC Famotidine (Pepcid) 20 mg QHS GT Last administered on 07/16/20at 21:26; Start 07/02/20 at 21:00 Haloperidol Lactate (Haldol Inj) 5 mg Q8HRS IVP Last administered on 07/03/20at 06:00; Start 07/02/20 at 14:00; Stop 07/03/20 at 12:40; Status DC Micafungin Sodium 100 mg/Dextrose 100 ml @ 100 mls/hr Q24H IV Last administered on 07/05/20at 08:04; Start 07/03/20 at 09:00; Stop 07/05/20 at 08:14; Status DC Alteplase, Recombinant (Cathflo For Central Catheter Clearance) 1 mg 1X ONCE INT CAT Last administered on 07/03/20at 08:45; Start 07/03/20 at 08:45; Stop 07/03/20 at 08:46; Status DC Haloperidol Lactate (Haldol Inj) 2.5 mg PRN Q6HRS PRN IVP AGITATION; Start 07/03/20 at 12:30; Stop 07/03/20 at 12:40; Status DC Haloperidol Lactate (Haldol Inj) 2.5 mg PRN Q6HRS PRN IVP AGITATION Last administered on 07/04/20at 01:04; Start 07/03/20 at 14:00; Stop 07/04/20 at 08:04; Status DC Haloperidol Lactate (Haldol Inj) 2.5 mg Q8HRS IVP ; Start 07/04/20 at 10:00; Stop 07/04/20 at 08:15; Status DC Haloperidol Lactate (Haldol Inj) 2.5 mg PRN Q8HRS PRN IVP AGITATION; Start 07/04/20 at 08:15; Stop 07/05/20 at 10:35; Status DC Lisinopril (Prinivil) 20 mg BID PO Last administered on 07/17/20at 09:34; Start 07/04/20 at 21:00 Haloperidol (Haldol) 0.5 mg PRN Q8HRS PRN PO AGITATION-2ND CHOICE Last administered on 07/12/20at 16:13; Start 07/05/20 at 10:45 Acetaminophen (Tylenol) 650 mg PRN Q6HRS PRN PO MILD PAIN / TEMP > 100.3'F Last administered on 07/09/20at 21:20; Start 07/06/20 at 13:30 Amoxicillin/ Clavulanate Potassium (Augmentin 875/ 125mg) 1 tab BID PO Last administered on 07/11/20at 19:59; Start 07/07/20 at 21:00; Stop 07/12/20 at 09:57; Status DC Diphenhydramine HCl (Benadryl Oral Elixir) 25 mg PRN Q6HRS PRN PEG ITCHING Last administered on 07/11/20at 19:52; Start 07/10/20 at 19:15 Lorazepam (Ativan Inj) 1 mg PRN Q6HRS PRN IVP ANXIETY / AGITATION Last administered on 07/11/20at 05:21; Start 07/11/20 at 05:15; Stop 07/11/20 at 09:07; Status DC Zolpidem Tartrate (Ambien) 2.5 mg HS PO Last administered on 07/11/20at 19:52; Start 07/11/20 at 21:00; Stop 07/12/20 at 09:57; Status DC Diphenhydramine HCl (Benadryl) 50 mg PRN Q6HRS PRN IVP itching/insomina Last administered on 07/12/20at 20:39; Start 07/12/20 at 01:00 Haloperidol Lactate (Haldol Inj) 5 mg PRN Q6HRS PRN IVP AGITATION Last administered on 07/14/20at 00:49; Start 07/12/20 at 01:00 Zolpidem Tartrate (Ambien) 5 mg HS PO Last administered on 07/14/20at 21:28; Start 07/12/20 at 21:00; Stop 07/15/20 at 10:51; Status DC Lorazepam (Ativan) 1 mg PRN Q6HRS PRN PO ANXIETY / AGITATION Last administered on 07/13/20at 01:45; Start 07/12/20 at 10:00; Stop 07/14/20 at 10:49; Status DC Fluconazole (Diflucan) 150 mg 1X ONCE PO ; Start 07/12/20 at 16:30; Stop 07/12/20 at 16:31; Status Cancel Clotrimazole (Mycelex-7) 1 reji HS VG Last administered on 07/16/20at 21:25; Start 07/12/20 at 21:00; Stop 07/19/20 at 20:59 Potassium Bicarbonate (Potassium Effervescent Tablet) 30 meq 1X ONCE PEG Last administered on 07/13/20at 09:43; Start 07/13/20 at 09:00; Stop 07/13/20 at 09:01; Status DC Sodium Chloride 1,000 ml @ 1,000 mls/hr 1X ONCE IV Last administered on 07/13/20at 12:02; Start 07/13/20 at 12:00; Stop 07/13/20 at 12:59; Status DC Haloperidol Lactate (Haldol Inj) 2 mg 1X ONCE IVP Last administered on 07/13/20at 12:03; Start 07/13/20 at 12:00; Stop 07/13/20 at 12:01; Status DC Neomycin/ Polymyxin/ Bacitracin (Triple Antibiotic Ointment) 1 pkt BID TP Last administered on 07/17/20at 09:35; Start 07/14/20 at 15:00 Potassium Bicarbonate (Potassium Effervescent Tablet) 20 meq BID PEG Last administered on 07/17/20at 09:33; Start 07/15/20 at 14:00 Active Scripts Active Reported Acetaminophen-Diphenhyd 500-25 (Acetaminophen/Diphenhydramine) 1 Each Tablet 1 Each PO HS PRN Naproxen 500 Mg Tablet 1 Tab PO BID PRN 30 Days Tramadol Hcl 50 Mg Tablet 50 Mg PO Q4HRS Levothyroxine Sodium 75 Mcg Tablet 1 Tab PO DAILY Adderall 20 Mg Tablet (Dextroamphetamine/Amphetamine) 20 Mg Tablet 1 Tab PO DAILY MDD 1 Tablet(s) 5 Days Prozac (Fluoxetine Hcl) 20 Mg Capsule 1 Cap PO [id number] Vitals/I & O Vital Sign - Last 24 Hours 07/16/20 07/16/20 07/16/20 07/16/20 11:10 12:09 14:55 16:47 Temp 97.6 97.6 97.6 97.6 Pulse 78 78 81 Resp 18 B/P (MAP) 126/60 (82) 141/64 (89) 136/66 Pulse Ox 93 100 O2 Delivery Room Air Room Air Room Air 07/16/20 07/16/20 07/16/20 07/16/20 19:00 20:00 20:57 21:27 Temp 97.5 97.5 Pulse 82 82 Resp 18 B/P (MAP) 145/79 (101) 145/79 Pulse Ox 94 97 O2 Delivery Room Air Room Air 07/16/20 07/17/20 07/17/20 07/17/20 23:00 03:00 07:00 07:34 Temp 97.4 97.3 97.6 97.4 97.3 97.6 Pulse 82 105 96 Resp 18 20 18 B/P (MAP) 108/46 (66) 123/83 (96) 137/81 (99) Pulse Ox 95 92 100 97 O2 Delivery Room Air Room Air 07/17/20 07/17/20 07/17/20 09:34 09:34 09:35 Pulse 96 96 96 B/P (MAP) 137/81 137/81 137/81 Intake and Output 07/16/20 07/16/20 07/17/20 15:00 23:00 07:00 Intake Total 1044 ml 730 ml Output Total 120 ml Balance 924 ml 730 ml Justicifation of Admission Dx: Justifications for Admission: Justification of Admission Dx: N/A MIMI FREEMAN MD Jul 17, 2020 11:10
--- NOTE | 2020-07-17 13:23 | NUR ---
SHIKHA following for discharge planning. Spoke with RN and reviewed chart. Family meeting held with this SW, pt's spouse, and pt's two sons. Family agreeable to referral for acute rehab and stated no preference in provider. Pt choice of vendor form completed. Referral phoned and faxed to Brian with [facility]. Brian reviewing. Family has questions about Medicaid should pt need LTC in the future. Referral to Maru with [facility] who will meet with pt's family. SHIKHA following.
[2020-07-17 15:00] VITALS: BP 143/71
[2020-07-17 19:00] VITALS: BP 133/90
[2020-07-17] MEDS: ENOXAPARIN 40 MG/0.4 ML SYRINGE. SQ SCH (20:35)
[2020-07-17] MEDS: FAMOTIDINE 20 MG TABLET. GT SCH (20:35)
[2020-07-17] MEDS: ATORVASTATIN CALCIUM 20 MG TABLET PO SCH (20:36)
[2020-07-17] MEDS: HALOPERIDOL 5 MG TABLET. PEG SCH (20:36)
[2020-07-17] MEDS: CLOTRIMAZOLE 1% VAGINAL CREAM 45GM TUBE. VG SCH (20:37)
[2020-07-17 23:00] VITALS: BP 143/71
[2020-07-18 03:00] VITALS: BP 145/72
[2020-07-18] MEDS: LEVOTHYROXINE 75 MCG TABLET PO SCH (05:49)
[2020-07-18 07:00] VITALS: BP 155/92
[2020-07-18] MEDS: IPRATRPIUM/ALBUTEROL 0.5/2.5MG 3 ML NEBU. NEB SCH ×4 (07:02→19:27)
--- NOTE | 2020-07-18 07:32 | PDOC ---
PROGRESS NOTES Date of Service: DATE: 07/18/20 TIME: 07:30 Chief Complaint Chief Complaint IMPRESSION POST covid cardiomyopathy acute systolic CHF Severe NICM: EF 25%. No significant CAD per [facility] anoxic brain injury Cardiac arrest with resuscitation and probable pneumonia, sternal fracture and pneumothorax secondary to CPR, leukocytosis, electrolyte disturbance, hypokalemia, lactic acidosis, elevated troponin. Disposition pending referrals DC Ativan, use Haldol Trach 06/26/20, PEG on 06/27/20 History of Present Illness History of Present Illness 2-3 patient resting comfortably today she fell asleep around 3:00 in the morning as per nursing staff. She received Haldol yesterday instead of Ambien, we have discussed allowing patient to sleep in the evening time and to avoid excessive stimulation during the evening hours. Awaiting for case management for an update regarding disposition 2-2 patient seems to be status quo, unfortunately is having a tough time with the loss of his partner. He understands that he cannot take care of her at home and we are awaiting for case management to provide us with a viable option moving forward 2-1 no acute events reported overnight, case discussed with nursing staff patient in no acute distress no complaints during my visit, hopefully we can start the process of discharge she will certainly need transitioning to an institution unlikely to be able to be cared for at home since she requires full- time care 07-15 trach removed d/w DR Aguiar have stopped iv ativan yesterday, SAID YES TO when asked about some remote memories 07-14 DC Ativan, use Haldol appears less agitated d/w in room Trach 06/26/20, PEG on 06/27/20 D/W IN ROOM, SHE IS NOW TRACKING AT TIMES 07/13 MOVING BOTH LEGS AND ARMS without apparent purpose, family working on placement barriers , HYPOKALEMIC, ON REPLACEMENT D/W RN, ALSO VAG CANDIDIASIS, ON MONISTAT VAG CREAM D/W RN 07/09 S/P cardiac arrest 06/17 S/P trach on 06/26 ----- S/P peg 06/27 NO PURPOSEFUL movement D/W receiving worker wants to try 1 month at long-term acute care hospital Transfer to long-term care, denied by all facilities contacted to date d/w rn 07/08: Patient seen and evaluated with at bedside. No significant change overnight, still no purposeful movements. Sounds as though family still plans to hold off on any change in CODE STATUS or goals of care until at least 30 days after admission date. did show me some video of patient smiling and having meaningful exchange with a family friend today. 07/07. Transfer out of ICU to the medical floors. Discussed with , he feels that music is helping patient. She will occasionally check in with eyes, but no purposeful movements. Has been mentioned trying to give 30 days for admission to show any signs of meaningful improvement. At which time decision will be made about hospice in future goals of care. 07/06, will transfer to floor, no tele, off vent now for some time. discussed with , she does seem improved, she had a tiny smile to some music earlier, still not following commands or any purposeful response 07/05, about the same, discussed my previous thoughts again with and son, not following commands, movement is seeming to be mostly reflexive. they still want to cont iwth the 30 days plan to give her a chance to improve. I discussed possible transition to hospice, they want to wait until that time. 07/04-, minmal change, some relfexive movements, had a video of her withdrawing to light touch to face, soem work with PT, not following commands as directed I discussed poor prognosis with at length, that as days go by, her chances for meaningful recovery continue to dim. I discussed consideration of hospice care. 07/03/2020, discussed plan with family at length yesterday Patient seen and examined in the ICU plan LTAC, but denied start PT and OT moving around a lot She is still not very responsive but at the same time less agitated Vitals Vitals Vital Signs Date Time Temp Pulse Resp B/P (MAP) Pulse Ox O2 Delivery O2 Flow Rate FiO2 07/18/20 03:00 97.9 80 18 145/72 (96) 96 Room Air 97.9 Physical Exam Physical Exam GENERAL: Opens eyes transiently, does not follow any commands, Moving arms and legs, not thrusting tongue HEENT: Both pupils are round and reacting. No conjunctival lesion. NECK: Supple. Trach present, erythema and drainage present around trach site improving LUNGS: Decreased breath sounds bilaterally. HEART: S1, S2, regular. No gallop or murmur. ABDOMEN: Soft, nontender. No organomegaly.peg tube + fecal tube , Jolly present EXTREMITIES: No edema or cyanosis. toe amputation of the Rt foot,healed scars SKIN: Unremarkable. NEUROLOGICAL: Opens eyes transiently does not follow any commands, LAUGHS when talking to family General: Cooperative, No acute distress Heart: Regular rate, Normal S1, Normal S2 Lungs: Clear Abdomen: Normal bowel sounds, Soft, No tenderness, No hepatosplenomegaly, No masses Extremities: No cyanosis Skin: No rashes, No breakdown Labs LABS Laboratory Tests Test 07/17/20 07:42 07/17/20 11:41 07/17/20 16:48 07/17/20 20:26 Glucose (Fingerstick) 106 mg/dL (70-99) 108 mg/dL (70-99) 131 mg/dL (70-99) 112 mg/dL (70-99) Assessment and Plan Assessmemt and Plan Problems Medical Problems: (1) Cardiac arrest Status: Acute (2) Fracture of ribs, multiple Status: Acute (3) Hyperglycemia Status: Acute (4) Pneumonia Status: Acute (5) Pneumothorax, right Status: Acute (6) Sternal fracture Status: Acute (7) VF (ventricular fibrillation) Status: Acute Comment Review of Relevant I have reviewed the following items afua (where applicable) has been applied. Labs Laboratory Tests Test 07/16/20 08:30 07/16/20 11:43 07/16/20 16:54 07/16/20 20:46 Sodium Level 145 mmol/L (136-145) Potassium Level 3.7 mmol/L (3.5-5.1) Chloride Level 106 mmol/L (98-107) Carbon Dioxide Level 29 mmol/L (21-32) Anion Gap 10 (6-14) Blood Urea Nitrogen 11 mg/dL (7-20) Creatinine 0.5 mg/dL (0.6-1.0) Estimated GFR (Cockcroft-Gault) 127.2 Glucose Level 118 mg/dL (70-99) Calcium Level 9.2 mg/dL (8.5-10.1) Glucose (Fingerstick) 126 mg/dL (70-99) 103 mg/dL (70-99) 115 mg/dL (70-99) Test 07/17/20 07:42 07/17/20 11:41 07/17/20 16:48 07/17/20 20:26 Glucose (Fingerstick) 106 mg/dL (70-99) 108 mg/dL (70-99) 131 mg/dL (70-99) 112 mg/dL (70-99) Laboratory Tests Test 07/17/20 07:42 07/17/20 11:41 07/17/20 16:48 07/17/20 20:26 Glucose (Fingerstick) 106 mg/dL (70-99) 108 mg/dL (70-99) 131 mg/dL (70-99) 112 mg/dL (70-99) Microbiology 07/10/20 Urine Culture - Final, Complete 06/30/20 Gram Stain - Final, Complete 06/30/20 Aerobic and Anaerobic Culture - Final, Complete 06/17/20 Blood Culture - Final, Complete NO GROWTH AFTER 5 DAYS Medications Current Medications Amiodarone HCl 150 mg/Dextrose 103 ml @ 618 mls/hr 1X ONCE IV Last administered on 06/17/20at 07:00; Start 06/17/20 at 07:00; Stop 06/17/20 at 07:09; Status DC Amiodarone HCl 450 mg/Dextrose 259 ml @ 33 mls/hr 1X ONCE IV ; Start 06/17/20 at 07:00; Stop 06/17/20 at 14:50; Status DC Sodium Chloride 1,000 ml @ 1,000 mls/hr 1X ONCE IV Last administered on 06/17/20at 08:11; Start 06/17/20 at 07:15; Stop 06/17/20 at 08:14; Status DC Midazolam HCl 100 ml @ 0 mls/hr 1X ONCE IV ; Start 06/17/20 at 07:15; Stop 06/17/20 at 07:16; Status DC Midazolam HCl (Versed) 5 mg STK-MED ONCE .ROUTE ; Start 06/17/20 at 07:17; Stop 06/17/20 at 07:17; Status DC Iohexol (Omnipaque 300 Mg/ml) 75 ml 1X ONCE IV Last administered on 06/17/20at 08:17; Start 06/17/20 at 08:15; Stop 06/17/20 at 08:16; Status DC Iohexol (Omnipaque 350 Mg/ml) 100 ml 1X ONCE IV Last administered on 06/17/20at 08:17; Start 06/17/20 at 08:15; Stop 06/17/20 at 08:16; Status DC Info (CONTRAST GIVEN -- Rx MONITORING) 1 each PRN DAILY PRN MC SEE COMMENTS; Start 06/17/20 at 08:15; Stop 06/19/20 at 08:14; Status DC Sodium Chloride 1,000 ml @ 1,000 mls/hr 1X ONCE IV Last administered on 06/17/20at 08:25; Start 06/17/20 at 08:15; Stop 06/17/20 at 09:14; Status DC Potassium Chloride/Water 100 ml @ 50 mls/hr 1X ONCE IV Last administered on 06/17/20at 10:16; Start 06/17/20 at 09:00; Stop 06/17/20 at 10:59; Status DC Piperacillin Sod/ Tazobactam Sod (Zosyn Per Pharmacy) 1 each PRN DAILY PRN MC SEE COMMENTS; Start 06/17/20 at 08:45; Stop 06/27/20 at 11:36; Status DC Piperacillin Sod/ Tazobactam Sod 4.5 gm/Sodium Chloride 100 ml @ 200 mls/hr 1X ONCE IV Last administered on 06/17/20at 10:15; Start 06/17/20 at 08:45; Stop 06/17/20 at 09:14; Status DC Sodium Chloride 1,000 ml @ 125 mls/hr Q8H IV Last administered on 06/17/20at 23:39; Start 06/17/20 at 09:00; Stop 06/18/20 at 08:59; Status DC Propofol (Diprivan) 200 mg 1X ONCE IV Last administered on 06/17/20at 09:00; Start 06/17/20 at 09:00; Stop 06/17/20 at 09:01; Status DC Propofol 100 ml @ As Directed STK-MED ONCE IV ; Start 06/17/20 at 09:05; Stop 06/17/20 at 09:05; Status DC Lidocaine HCl (Lidocaine 1% 20ml Vial) 20 ml 1X ONCE INJ Last administered on 06/17/20at 09:15; Start 06/17/20 at 09:15; Stop 06/17/20 at 09:20; Status DC Lidocaine HCl (Xylocaine-Mpf 1% 5ml Vial) 5 ml STK-MED ONCE .ROUTE ; Start 06/17/20 at 09:26; Stop 06/17/20 at 09:26; Status DC Sodium Chloride 1,000 ml @ 1,000 mls/hr 1X ONCE IV Last administered on 06/17/20at 10:15; Start 06/17/20 at 10:15; Stop 06/17/20 at 11:14; Status DC Propofol 100 ml @ 3.819 mls/ hr CONT PRN IV PER PROTOCOL Last administered on 06/25/20at 06:12; Start 06/17/20 at 10:45; Stop 06/29/20 at 11:47; Status DC Fentanyl Citrate (Fentanyl 2ml Vial) 100 mcg 1X ONCE IV ; Start 06/17/20 at 12:00; Stop 06/17/20 at 12:39; Status DC Midazolam HCl (Versed) 2 mg 1X ONCE IV ; Start 06/17/20 at 12:00; Stop 06/17/20 at 12:39; Status DC Magnesium Sulfate/ Dextrose 100 ml @ 100 mls/hr 1X ONCE IV Last administered on 06/17/20at 12:22; Start 06/17/20 at 12:00; Stop 06/17/20 at 12:39; Status DC Buspirone HCl (Buspar) 30 mg Q8H NG Last administered on 06/17/20at 12:31; Start 06/17/20 at 12:00; Stop 06/17/20 at 12:39; Status DC Glycerin/ Hypromellose/ Polyethylene (Artificial Tears) 1 drop Q6HRS OU ; Start 06/17/20 at 12:00; Stop 06/17/20 at 12:39; Status DC Glycerin/ Hypromellose/ Polyethylene (Artificial Tears) 1 drop PRN Q15MIN PRN OU DRY EYE; Start 06/17/20 at 12:00; Stop 06/17/20 at 12:39; Status DC Heparin Sodium (Porcine) (Heparin Sodium) 5,000 unit BID SQ ; Start 06/17/20 at 21:00; Stop 06/17/20 at 12:39; Status DC Pantoprazole Sodium (PROTONIX VIAL for IV PUSH) 40 mg DAILY IVP ; Start 06/18/20 at 09:00; Stop 06/17/20 at 12:39; Status DC Fentanyl Citrate 30 ml @ 0 mls/hr CONT PRN IV PER PROTOCOL.; Start 06/17/20 at 12:00; Stop 06/17/20 at 12:39; Status DC Propofol 100 ml @ 0 mls/hr CONT PRN IV PER PROTOCOL.; Start 06/17/20 at 12:00; Stop 06/17/20 at 12:39; Status DC Midazolam HCl 100 ml @ 0 mls/hr CONT PRN IV PER PROTOCOL; Start 06/17/20 at 12:00; Stop 06/17/20 at 12:39; Status DC Vecuronium Calhoun (Norcuron Bolus) 10 mg PRN Q1HR PRN IV SHIVERING; Start 06/17/20 at 12:00; Stop 06/17/20 at 12:39; Status DC Piperacillin Sod/ Tazobactam Sod 4.5 gm/Sodium Chloride 100 ml @ 200 mls/hr 1X ONCE IV ; Start 06/17/20 at 12:15; Stop 06/17/20 at 12:44; Status Cancel Midazolam HCl (Versed) 5 mg Q1HR PRN IV SEDATION Last administered on 06/29/20at 13:48; Start 06/17/20 at 12:45; Stop 07/08/20 at 12:59; Status DC Fentanyl Citrate (Fentanyl 2ml Vial) 100 mcg Q1HR IVP Last administered on 06/17/20at 18:55; Start 06/17/20 at 13:00; Stop 06/17/20 at 23:41; Status DC Piperacillin Sod/ Tazobactam Sod 3.375 gm/Sodium Chloride 50 ml @ 100 mls/hr Q6H IV Last administered on 06/27/20at 05:31; Start 06/17/20 at 16:00; Stop 06/27/20 at 11:30; Status DC Potassium Bicarbonate (Potassium Effervescent Tablet) 40 meq 1X ONCE NG Last administered on 06/18/20at 10:00; Start 06/18/20 at 09:45; Stop 06/18/20 at 09:48; Status DC Albuterol/ Ipratropium (Duoneb) 3 ml RTQID NEB Last administered on 07/17/20at 20:29; Start 06/18/20 at 20:00 Famotidine (Pepcid Vial) 20 mg BID IVP Last administered on 07/02/20at 08:05; Start 06/18/20 at 21:00; Stop 07/02/20 at 10:23; Status DC Enoxaparin Sodium (Lovenox 40mg Syringe) 40 mg Q24H SQ Last administered on 07/17/20at 20:35; Start 06/18/20 at 21:00 Levothyroxine Sodium (Synthroid) 75 mcg DAILY06 PO Last administered on 07/18/20 05:49; Start 06/18/20 at 21:00 Fentanyl Citrate 30 ml @ 0 mls/hr CONT PRN IV SEE PROTOCOL Last administered on 06/28/20at 04:56; Start 06/18/20 at 20:15; Stop 06/29/20 at 11:47; Status DC Carvedilol (Coreg) 3.125 mg BIDWMEALS PO Last administered on 07/17/20at 18:18; Start 06/19/20 at 17:00 Atorvastatin Calcium (Lipitor) 20 mg QHS PO Last administered on 07/17/20at 20:36; Start 06/19/20 at 21:00 Aspirin (Aspirin Chewable) 81 mg DAILYWBKFT PO Last administered on 07/17/20at 09:33; Start 06/20/20 at 08:00 Aspirin (Aspirin Chewable) 81 mg 1X ONCE PO Last administered on 06/19/20at 15:57; Start 06/19/20 at 15:30; Stop 06/19/20 at 15:37; Status DC Potassium Chloride/Water 100 ml @ 100 mls/hr 1X ONCE IV Last administered on 06/19/20at 15:57; Start 06/19/20 at 15:30; Stop 06/19/20 at 16:29; Status DC Amiodarone HCl (Cordarone) 400 mg DAILY PO Last administered on 07/17/20 09:34; Start 06/20/20 at 09:00 Furosemide (Lasix) 40 mg 1X ONCE IVP Last administered on 06/20/20at 14:38; Start 06/20/20 at 13:30; Stop 06/20/20 at 13:31; Status DC Potassium Chloride/Water 100 ml @ 100 mls/hr 1X ONCE IV Last administered on 06/20/20at 14:39; Start 06/20/20 at 13:30; Stop 06/20/20 at 14:29; Status DC Dexmedetomidine HCl 400 mcg/ Sodium Chloride 100 ml @ 0 mls/hr CONT PRN IV PER PROTOCOL Last administered on 06/29/20at 06:11; Start 06/21/20 at 10:45; Stop 06/29/20 at 11:47; Status DC Sodium Chloride 500 ml @ 500 mls/hr 1X PRN PRN IV SEE COMMENTS; Start 06/21/20 at 10:45 Atropine Sulfate (ATROPINE 0.5mg SYRINGE) 0.5 mg PRN Q5MIN PRN IV SEE COMMENTS; Start 06/21/20 at 10:45; Stop 06/29/20 at 11:47; Status DC Fentanyl Citrate (Fentanyl 2ml Vial) 50 mcg PRN Q2HR PRN IVP PAIN Last administered on 07/12/20at 20:27; Start 06/23/20 at 16:45 Midazolam HCl 100 ml @ 0 mls/hr CONT PRN IV SEE PROTOCOL Last administered on 06/28/20at 03:00; Start 06/25/20 at 11:45; Stop 06/29/20 at 11:47; Status DC Lidocaine HCl (Xylocaine-Mpf 1% 2ml Vial) 2 ml STK-MED ONCE .ROUTE ; Start 06/25/20 at 14:21; Stop 06/25/20 at 14:21; Status DC Iohexol (Omnipaque 300 Mg/ml) 100 ml STK-MED ONCE .ROUTE ; Start 06/25/20 at 14:21; Stop 06/25/20 at 14:21; Status DC Heparin Sodium/ Sodium Chloride 1,000 ml @ As Directed STK-MED ONCE .ROUTE ; Start 06/25/20 at 14:21; Stop 06/25/20 at 14:21; Status DC Heparin Sodium (Porcine) (Heparin Sodium) 10,000 unit STK-MED ONCE .ROUTE ; Start 06/25/20 at 14:31; Stop 06/25/20 at 14:31; Status DC Verapamil HCl (Verapamil) 5 mg STK-MED ONCE .ROUTE ; Start 06/25/20 at 14:31; Stop 06/25/20 at 14:31; Status DC Nitroglycerin (Nitroglycerin) 200 mcg STK-MED ONCE .ROUTE ; Start 06/25/20 at 14:31; Stop 06/25/20 at 14:31; Status DC Nitroglycerin (Nitroglycerin) 200 mcg 1X ONCE IART Last administered on 06/25/20at 15:09; Start 06/25/20 at 15:15; Stop 06/25/20 at 15:16; Status DC Verapamil HCl (Verapamil) 2.5 mg 1X ONCE IART Last administered on 06/25/20at 15:09; Start 06/25/20 at 15:15; Stop 06/25/20 at 15:16; Status DC Heparin Sodium (Porcine) (Heparin Sodium) 2,500 unit 1X ONCE IART Last administered on 06/25/20at 15:09; Start 06/25/20 at 15:15; Stop 06/25/20 at 15:16; Status DC Heparin Sodium/ Sodium Chloride (HEPARIN for ARTERIAL LINE FLUSH) 1,000 unit 1X ONCE IART Last administered on 06/25/20at 15:09; Start 06/25/20 at 15:15; Stop 06/25/20 at 15:16; Status DC Iohexol (Omnipaque 300 Mg/ml) 30 ml 1X ONCE IART Last administered on 06/25/20at 15:09; Start 06/25/20 at 15:15; Stop 06/25/20 at 15:16; Status DC Lidocaine HCl (Xylocaine-Mpf 1% 2ml Vial) 2 ml 1X ONCE INJ Last administered on 06/25/20at 15:09; Start 06/25/20 at 15:15; Stop 06/25/20 at 15:16; Status DC Amino Acids/ Glycerin/ Electrolytes 1,000 ml @ 80 mls/hr [id number] IV Last administered on 06/27/20at 20:50; Start 06/25/20 at 17:30; Stop 06/28/20 at 11:35; Status DC Potassium Chloride/Water 100 ml @ 100 mls/hr Q1H IV Last administered on 06/25/20at 18:46; Start 06/25/20 at 18:00; Stop 06/25/20 at 19:59; Status DC Rocuronium Calhoun (Zemuron) 50 mg STK-MED ONCE .ROUTE ; Start 06/26/20 at 11:37; Stop 06/26/20 at 11:38; Status DC Cellulose (Surgicel Fibrillar 1x2) 1 each STK-MED ONCE .ROUTE Last administered on 06/26/20at 13:20; Start 06/26/20 at 12:19; Stop 06/26/20 at 12:19; Status DC Bupivacaine HCl (Sensorcaine Mpf 0.5%) 30 ml STK-MED ONCE .ROUTE ; Start 06/26/20 at 12:19; Stop 06/26/20 at 12:19; Status DC Ondansetron HCl (Zofran) 4 mg STK-MED ONCE .ROUTE ; Start 06/26/20 at 13:13; Stop 06/26/20 at 13:13; Status DC Dexamethasone Sodium Phosphate (Decadron) 4 mg STK-MED ONCE .ROUTE ; Start 06/26/20 at 13:13; Stop 06/26/20 at 13:14; Status DC Cellulose (Surgicel Fibrillar 1x2) 1 each STK-MED ONCE .ROUTE Last administered on 06/26/20at 13:22; Start 06/26/20 at 13:25; Stop 06/26/20 at 13:25; Status DC Sevoflurane (Ultane) 30 ml STK-MED ONCE IH ; Start 06/26/20 at 13:37; Stop 06/26/20 at 13:38; Status DC Propofol (Diprivan) 200 mg STK-MED ONCE IV ; Start 06/26/20 at 13:38; Stop 06/26/20 at 13:38; Status DC Ringer's Solution 1,000 ml @ 30 mls/hr Q24H IV Last administered on 06/27/20at 08:39; Start 06/27/20 at 07:00; Stop 06/27/20 at 18:59; Status DC Prochlorperazine Edisylate (Compazine) 5 mg PACU PRN PRN IV NAUSEA, MRX1; Start 06/27/20 at 07:00; Stop 06/28/20 at 06:59; Status DC Propofol (Diprivan) 200 mg STK-MED ONCE IV ; Start 06/27/20 at 09:53; Stop 06/27/20 at 09:54; Status DC Lidocaine HCl (Lidocaine Pf 2% Vial) 5 ml STK-MED ONCE .ROUTE ; Start 06/27/20 at 09:54; Stop 06/27/20 at 09:54; Status DC Lisinopril (Prinivil) 5 mg DAILY PO Last administered on 07/04/20at 09:23; Start 06/29/20 at 09:00; Stop 07/04/20 at 14:46; Status DC Acetaminophen/ Hydrocodone Bitart (Lortab 7.5-325/ 15ml Oral Solution) 10 ml 1X ONCE PEG Last administered on 06/28/20at 12:37; Start 06/28/20 at 12:30; Stop 06/28/20 at 12:31; Status DC Piperacillin Sod/ Tazobactam Sod 3.375 gm/Sodium Chloride 50 ml @ 100 mls/hr Q6HRS IV Last administered on 07/07/20at 06:11; Start 06/29/20 at 10:00; Stop 07/07/20 at 09:51; Status DC Vecuronium Calhoun (Norcuron Bolus) 10 mg STK-MED ONCE IV ; Start 06/29/20 at 14:31; Stop 06/29/20 at 14:31; Status DC Propofol 100 ml @ 0 mls/hr CONT PRN IV PER PROTOCOL Last administered on 07/02/20at 07:26; Start 06/29/20 at 16:30; Stop 07/08/20 at 12:58; Status DC Vecuronium Calhoun (Norcuron Bolus) 10 mg 1X ONCE IV Last administered on 06/29/20at 14:31; Start 06/29/20 at 14:31; Stop 06/29/20 at 17:19; Status DC Daptomycin 400 mg/ Sodium Chloride 50 ml @ 100 mls/hr Q24H IV Last administered on 07/04/20at 09:25; Start 06/30/20 at 10:00; Stop 07/05/20 at 08:14; Status DC Famotidine (Pepcid) 20 mg QHS GT Last administered on 07/17/20at 20:35; Start 07/02/20 at 21:00 Haloperidol Lactate (Haldol Inj) 5 mg Q8HRS IVP Last administered on 07/03/20at 06:00; Start 07/02/20 at 14:00; Stop 07/03/20 at 12:40; Status DC Micafungin Sodium 100 mg/Dextrose 100 ml @ 100 mls/hr Q24H IV Last administered on 07/05/20at 08:04; Start 07/03/20 at 09:00; Stop 07/05/20 at 08:14; Status DC Alteplase, Recombinant (Cathflo For Central Catheter Clearance) 1 mg 1X ONCE INT CAT Last administered on 07/03/20at 08:45; Start 07/03/20 at 08:45; Stop 07/03/20 at 08:46; Status DC Haloperidol Lactate (Haldol Inj) 2.5 mg PRN Q6HRS PRN IVP AGITATION; Start 07/03/20 at 12:30; Stop 07/03/20 at 12:40; Status DC Haloperidol Lactate (Haldol Inj) 2.5 mg PRN Q6HRS PRN IVP AGITATION Last administered on 07/04/20at 01:04; Start 07/03/20 at 14:00; Stop 07/04/20 at 08:04; Status DC Haloperidol Lactate (Haldol Inj) 2.5 mg Q8HRS IVP ; Start 07/04/20 at 10:00; Stop 07/04/20 at 08:15; Status DC Haloperidol Lactate (Haldol Inj) 2.5 mg PRN Q8HRS PRN IVP AGITATION; Start 07/04/20 at 08:15; Stop 07/05/20 at 10:35; Status DC Lisinopril (Prinivil) 20 mg BID PO Last administered on 07/17/20at 20:36; Start 07/04/20 at 21:00 Haloperidol (Haldol) 0.5 mg PRN Q8HRS PRN PO AGITATION-2ND CHOICE Last administered on 07/12/20at 16:13; Start 07/05/20 at 10:45 Acetaminophen (Tylenol) 650 mg PRN Q6HRS PRN PO MILD PAIN / TEMP > 100.3'F Last administered on 07/09/20at 21:20; Start 07/06/20 at 13:30 Amoxicillin/ Clavulanate Potassium (Augmentin 875/ 125mg) 1 tab BID PO Last administered on 07/11/20at 19:59; Start 07/07/20 at 21:00; Stop 07/12/20 at 09:57; Status DC Diphenhydramine HCl (Benadryl Oral Elixir) 25 mg PRN Q6HRS PRN PEG ITCHING Last administered on 07/11/20at 19:52; Start 07/10/20 at 19:15 Lorazepam (Ativan Inj) 1 mg PRN Q6HRS PRN IVP ANXIETY / AGITATION Last administered on 07/11/20at 05:21; Start 07/11/20 at 05:15; Stop 07/11/20 at 09:07; Status DC Zolpidem Tartrate (Ambien) 2.5 mg HS PO Last administered on 07/11/20at 19:52; Start 07/11/20 at 21:00; Stop 07/12/20 at 09:57; Status DC Diphenhydramine HCl (Benadryl) 50 mg PRN Q6HRS PRN IVP itching/insomina Last administered on 07/12/20at 20:39; Start 07/12/20 at 01:00 Haloperidol Lactate (Haldol Inj) 5 mg PRN Q6HRS PRN IVP AGITATION Last administered on 07/14/20at 00:49; Start 07/12/20 at 01:00 Zolpidem Tartrate (Ambien) 5 mg HS PO Last administered on 07/14/20at 21:28; Start 07/12/20 at 21:00; Stop 07/15/20 at 10:51; Status DC Lorazepam (Ativan) 1 mg PRN Q6HRS PRN PO ANXIETY / AGITATION Last administered on 07/13/20at 01:45; Start 07/12/20 at 10:00; Stop 07/14/20 at 10:49; Status DC Fluconazole (Diflucan) 150 mg 1X ONCE PO ; Start 07/12/20 at 16:30; Stop 07/12/20 at 16:31; Status Cancel Clotrimazole (Mycelex-7) 1 reji HS VG Last administered on 07/17/20at 20:37; Start 07/12/20 at 21:00; Stop 07/19/20 at 20:59 Potassium Bicarbonate (Potassium Effervescent Tablet) 30 meq 1X ONCE PEG Last administered on 07/13/20at 09:43; Start 07/13/20 at 09:00; Stop 07/13/20 at 09:01; Status DC Sodium Chloride 1,000 ml @ 1,000 mls/hr 1X ONCE IV Last administered on 07/13/20at 12:02; Start 07/13/20 at 12:00; Stop 07/13/20 at 12:59; Status DC Haloperidol Lactate (Haldol Inj) 2 mg 1X ONCE IVP Last administered on 07/13/20at 12:03; Start 07/13/20 at 12:00; Stop 07/13/20 at 12:01; Status DC Neomycin/ Polymyxin/ Bacitracin (Triple Antibiotic Ointment) 1 pkt BID TP Last administered on 07/17/20at 20:36; Start 07/14/20 at 15:00 Potassium Bicarbonate (Potassium Effervescent Tablet) 20 meq BID PEG Last administered on 07/17/20at 20:36; Start 07/15/20 at 14:00 Haloperidol (Haldol) 5 mg HS PEG Last administered on 07/17/20at 20:36; Start 07/17/20 at 21:00 Active Scripts Active Reported Acetaminophen-Diphenhyd 500-25 (Acetaminophen/Diphenhydramine) 1 Each Tablet 1 Each PO HS PRN Naproxen 500 Mg Tablet 1 Tab PO BID PRN 30 Days Tramadol Hcl 50 Mg Tablet 50 Mg PO Q4HRS Levothyroxine Sodium 75 Mcg Tablet 1 Tab PO DAILY Adderall 20 Mg Tablet (Dextroamphetamine/Amphetamine) 20 Mg Tablet 1 Tab PO DAILY MDD 1 Tablet(s) 5 Days Prozac (Fluoxetine Hcl) 20 Mg Capsule 1 Cap PO [id number] Vitals/I & O Vital Sign - Last 24 Hours 07/17/20 07/17/20 07/17/20 07/17/20 07:34 08:05 09:34 09:34 Pulse 96 96 B/P (MAP) 137/81 137/81 Pulse Ox 97 O2 Delivery Room Air Room Air 07/17/20 07/17/20 07/17/20 07/17/20 09:35 11:00 11:26 15:00 Temp 98.0 98.6 98.0 98.6 Pulse 96 78 85 Resp 18 18 B/P (MAP) 137/81 133/76 (95) 143/71 (95) Pulse Ox 97 99 O2 Delivery Room Air Room Air 07/17/20 07/17/20 07/17/20 07/17/20 15:33 18:18 19:00 20:00 Temp 98.3 98.3 Pulse 87 93 Resp 24 B/P (MAP) 146/92 133/90 (104) Pulse Ox 96 O2 Delivery Room Air Tracheal Collar Room Air 07/17/20 07/17/20 07/17/20 07/18/20 20:30 20:36 23:00 03:00 Temp 98.3 97.9 98.3 97.9 Pulse 87 85 80 Resp 20 18 B/P (MAP) 146/92 143/71 (95) 145/72 (96) Pulse Ox 94 98 96 O2 Delivery Room Air Room Air Room Air Intake and Output 07/17/20 07/17/20 07/18/20 15:00 23:00 07:00 Intake Total 499 ml 892 ml Output Total 0 ml 0 ml Balance 499 ml 892 ml Justicifation of Admission Dx: Justifications for Admission: Justification of Admission Dx: N/A MIMI FREEMAN MD Jul 18, 2020 07:32
[2020-07-18] MEDS: ASPIRIN CHEWABLE 81 MG TABLET. PO SCH (08:00)
[2020-07-18] MEDS: CARVEDILOL 3.125 MG TABLET. PO SCH ×2 (08:00→16:49)
[2020-07-18] MEDS: LISINOPRIL 20 MG TABLET PO SCH ×2 (08:25→21:24)
[2020-07-18] MEDS: AMIODARONE HCL 200 MG TABLET. PO SCH (08:25)
[2020-07-18] MEDS: NEOMY/BACITR/POLYMYXIN OINT PACKET. TP SCH ×2 (08:25→21:23)
[2020-07-18] MEDS: POTASSIUM BICARB 20 MEQ EFFERVESCENT TABLET. PEG SCH ×2 (08:25→21:23)
--- NOTE | 2020-07-18 09:41 | PDOC ---
Date of Service: DATE: 07/18/20 TIME: 09:40 Objective: Objective: D/w nurse - no GI concerns. Vital Signs: Vital Signs Date Time Temp Pulse Resp B/P (MAP) Pulse Ox O2 Delivery O2 Flow Rate FiO2 07/18/20 07:00 97.3 69 18 155/92 (113) 93 Room Air 97.3 Labs: Laboratory Tests Test 07/17/20 11:41 07/17/20 16:48 07/17/20 20:26 07/18/20 07:32 Glucose (Fingerstick) 108 mg/dL (70-99) 131 mg/dL (70-99) 112 mg/dL (70-99) 110 mg/dL (70-99) PE: GEN: NAD ABD: tube feeds running @40 NEURO/PSYCH: sleeping, not awakened A/P: Anoxic encephalopathy s/p PEG -- Awaiting discharge. Justicifation of Admission Dx: Justifications for Admission: Justification of Admission Dx: N/A SHAHBAZ FOSS Jul 18, 2020 09:41
[2020-07-18 10:52] VITALS: BP 146/82
--- NOTE | 2020-07-18 14:21 | NUR ---
SHIKHA following for discharge planning. Spoke with RN and reviewed chart. Spoke with Brian from [facility] and his director is reviewing this referral for acute rehab. SHIKHA following. Addendum: 07/18/20 at 1424 by REMA TRIVEDI Brian requesting speech therapy evaluation. RN notified. Addendum: 07/18/20 at 1653 by REMA TRIVEDI SHIKHA also faxed referral to Doris at [facility] in [place], (phone), (fax).
[2020-07-18 15:00] VITALS: BP 138/77
[2020-07-18 19:00] VITALS: BP 117/78
[2020-07-18] MEDS: ATORVASTATIN CALCIUM 20 MG TABLET PO SCH (21:23)
[2020-07-18] MEDS: FAMOTIDINE 20 MG TABLET. GT SCH (21:23)
[2020-07-18] MEDS: HALOPERIDOL 5 MG TABLET. PEG SCH (21:26)
[2020-07-18] MEDS: fentaNYL PF VIAL 100 MCG/2 ML VIAL IVP PRN (21:27)
[2020-07-18] MEDS: diphenhydrAMINE 50 MG/ML VIAL IVP PRN (21:27)
[2020-07-18] MEDS: ENOXAPARIN 40 MG/0.4 ML SYRINGE. SQ SCH (21:28)
[2020-07-18] MEDS: CLOTRIMAZOLE 1% VAGINAL CREAM 45GM TUBE. VG SCH (21:29)
[2020-07-18 23:00] VITALS: BP 135/67
[2020-07-19] VITALS (12 sets, daily range): BP systolic 110–152; BP diastolic 56–79
[2020-07-19] MEDS: LEVOTHYROXINE 75 MCG TABLET PO SCH (05:32)
[2020-07-19] MEDS: IPRATRPIUM/ALBUTEROL 0.5/2.5MG 3 ML NEBU. NEB SCH ×4 (07:28→20:16)
[2020-07-19] MEDS: AMIODARONE HCL 200 MG TABLET. PO SCH (08:42)
[2020-07-19] MEDS: NEOMY/BACITR/POLYMYXIN OINT PACKET. TP SCH ×2 (08:42→19:51)
[2020-07-19] MEDS: LISINOPRIL 20 MG TABLET PO SCH ×2 (08:43→19:52)
[2020-07-19] MEDS: ASPIRIN CHEWABLE 81 MG TABLET. PO SCH (08:43)
[2020-07-19] MEDS: POTASSIUM BICARB 20 MEQ EFFERVESCENT TABLET. PEG SCH ×2 (08:43→19:52)
[2020-07-19] MEDS: CARVEDILOL 3.125 MG TABLET. PO SCH ×2 (08:44→17:27)
--- NOTE | 2020-07-19 10:24 | PDOC ---
Date of Service: DATE: 07/19/20 TIME: 10:21 Objective: Objective: D/w nurse - plans for bolus feeds. ?plans for rehab Vital Signs: Vital Signs Date Time Temp Pulse Resp B/P (MAP) Pulse Ox O2 Delivery O2 Flow Rate FiO2 07/19/20 08:44 96 144/78 07/19/20 07:29 96 Room Air 07/19/20 07:00 98.3 16 98.3 Labs: Laboratory Tests Test 07/18/20 14:51 07/18/20 16:58 07/18/20 20:20 07/19/20 08:30 Glucose (Fingerstick) 121 mg/dL (70-99) 111 mg/dL (70-99) 108 mg/dL (70-99) 103 mg/dL (70-99) PE: GEN: along in room, sitting up in bed LUNGS: CTAB HEART: RRR ABD: PEG in place NEURO/PSYCH: awake, staring at floor, does not respond to me A/P: Anoxic encephalopathy s/p PEG -- Stable GI-gonzales. Justicifation of Admission Dx: Justifications for Admission: Justification of Admission Dx: N/A SHAHBAZ FOSS Jul 19, 2020 10:24
--- NOTE | 2020-07-19 10:25 | NUR ---
SHIKHA following for discharge planning. Spoke with RN and reviewed chart. Pt's family meeting with Keko today regarding questions about Medicaid and division of assets. SHIKHA spoke with Mala in admissions at [facility] in [place] ([phone]). Mala stated they are reviewing the referral and checking to see if they are in-network with pt's insurance company. Update to spouse. SHIKHA following. Addendum: 07/19/20 at 1101 by ERMA TRIVEDI Spouse stated he plans to contact [employer] to start the process of division of assets for pt to obtain Medicaid. Addendum: 07/19/20 at 1426 by REMA TRIVEDI SHIKHA faxed updated therapy notes to Brian at [facility] and asked him to continue considering this pt for acute rehab as SHIKHA has not heard back from [facility]. LVM for [facility] admissions for an update from this morning on status of request for admission. Addendum: 07/19/20 at 1500 by REMA TRIVEDI Return phone call from [facility] and pt is out of network. Update to Brian. Encouraged Brian to call Neri from PT to further discuss pt progress. Awaiting answer from [facility]. Addendum: 07/19/20 at 1520 by REMA TRIVEDI Spoke with [facility] and [facility] will accept this pt for acute rehab when a bed is available. Possibly no bed availability prior to 07/21 per Brian.
--- NOTE | 2020-07-19 10:46 | PDOC ---
PROGRESS NOTES Date of Service: DATE: 07/19/20 TIME: 10:45 Chief Complaint Chief Complaint IMPRESSION POST covid cardiomyopathy acute systolic CHF Severe NICM: EF 25%. No significant CAD per [facility] anoxic brain injury Cardiac arrest with resuscitation and probable pneumonia, sternal fracture and pneumothorax secondary to CPR, leukocytosis, electrolyte disturbance, hypokalemia, lactic acidosis, elevated troponin. Disposition pending referrals DC Ativan, use Haldol Trach 06/26/20, PEG on 06/27/20 History of Present Illness History of Present Illness 2-4 no acute events reported overnight pretty much status quo still waiting for disposition 2-3 patient resting comfortably today she fell asleep around 3:00 in the morning as per nursing staff. She received Haldol yesterday instead of Ambien, we have discussed allowing patient to sleep in the evening time and to avoid excessive stimulation during the evening hours. Awaiting for case management for an update regarding disposition 2-2 patient seems to be status quo, unfortunately is having a tough time with the loss of his partner. He understands that he cannot take care of her at home and we are awaiting for case management to provide us with a viable option moving forward 2-1 no acute events reported overnight, case discussed with nursing staff patient in no acute distress no complaints during my visit, hopefully we can start the process of discharge she will certainly need transitioning to an institution unlikely to be able to be cared for at home since she requires full- time care 07-15 trach removed d/w DR Aguiar have stopped iv ativan yesterday, SAID YES TO when asked about some remote memories 07-14 DC Ativan, use Haldol appears less agitated d/w in room Trach 06/26/20, PEG on 06/27/20 D/W IN ROOM, SHE IS NOW TRACKING AT TIMES 07/13 MOVING BOTH LEGS AND ARMS without apparent purpose, family working on p lacement barriers , HYPOKALEMIC, ON REPLACEMENT D/W RN, ALSO VAG CANDIDIASIS, ON MONISTAT VAG CREAM D/W RN 07/09 S/P cardiac arrest 06/17 S/P trach on 06/26 ----- S/P peg 06/27 NO PURPOSEFUL movement D/W vacuum repairer wants to try 1 month at long-term acute care hospital Transfer to long-term care, denied by all facilities contacted to date d/w rn 07/08: Patient seen and evaluated with at bedside. No significant change overnight, still no purposeful movements. Sounds as though family still plans to hold off on any change in CODE STATUS or goals of care until at least 30 days after admission date. did show me some video of patient smiling and having meaningful exchange with a family friend today. 07/07. Transfer out of ICU to the medical floors. Discussed with , he feels that music is helping patient. She will occasionally check in with eyes, but no purposeful movements. Has been mentioned trying to give 30 days for admission to show any signs of meaningful improvement. At which time decision will be made about hospice in future goals of care. 07/06, will transfer to floor, no tele, off vent now for some time. discussed with , she does seem improved, she had a tiny smile to some music earlier, still not following commands or any purposeful response 07/05, about the same, discussed my previous thoughts again with and son, not following commands, movement is seeming to be mostly reflexive. they still want to cont iwth the 30 days plan to give her a chance to improve. I discussed possible transition to hospice, they want to wait until that time. 07/04-, minmal change, some relfexive movements, had a video of her withdrawing to light touch to face, soem work with PT, not following commands as directed I discussed poor prognosis with at length, that as days go by, her chances for meaningful recovery continue to dim. I discussed consideration of hospice care. 07/03/2020, discussed plan with family at length yesterday Patient seen and examined in the ICU plan LTAC, but denied start PT and OT moving around a lot She is still not very responsive but at the same time less agitated Vitals Vitals Vital Signs Date Time Temp Pulse Resp B/P (MAP) Pulse Ox O2 Delivery O2 Flow Rate FiO2 07/19/20 08:44 96 144/78 07/19/20 07:29 96 Room Air 07/19/20 07:00 98.3 16 98.3 Physical Exam Physical Exam GENERAL: Opens eyes transiently, does not follow any commands, Moving arms and legs, not thrusting tongue HEENT: Both pupils are round and reacting. No conjunctival lesion. NECK: Supple. Trach present, erythema and drainage present around trach site improving LUNGS: Decreased breath sounds bilaterally. HEART: S1, S2, regular. No gallop or murmur. ABDOMEN: Soft, nontender. No organomegaly.peg tube + fecal tube , Jolly present EXTREMITIES: No edema or cyanosis. toe amputation of the Rt foot,healed scars SKIN: Unremarkable. NEUROLOGICAL: Opens eyes transiently does not follow any commands, LAUGHS when talking to family General: Cooperative, No acute distress Heart: Regular rate, Normal S1, Normal S2 Lungs: Clear Abdomen: Normal bowel sounds, Soft, No tenderness, No hepatosplenomegaly, No masses Extremities: No cyanosis Skin: No rashes, No breakdown Labs LABS Laboratory Tests Test 07/18/20 14:51 07/18/20 16:58 07/18/20 20:20 07/19/20 08:30 Glucose (Fingerstick) 121 mg/dL (70-99) 111 mg/dL (70-99) 108 mg/dL (70-99) 103 mg/dL (70-99) Assessment and Plan Assessmemt and Plan Problems Medical Problems: (1) Cardiac arrest Status: Acute (2) Fracture of ribs, multiple Status: Acute (3) Hyperglycemia Status: Acute (4) Pneumonia Status: Acute (5) Pneumothorax, right Status: Acute (6) Sternal fracture Status: Acute (7) VF (ventricular fibrillation) Status: Acute Comment Review of Relevant I have reviewed the following items afua (where applicable) has been applied. Labs Laboratory Tests Test 07/17/20 11:41 07/17/20 16:48 07/17/20 20:26 07/18/20 07:32 Glucose (Fingerstick) 108 mg/dL (70-99) 131 mg/dL (70-99) 112 mg/dL (70-99) 110 mg/dL (70-99) Test 07/18/20 14:51 07/18/20 16:58 07/18/20 20:20 07/19/20 08:30 Glucose (Fingerstick) 121 mg/dL (70-99) 111 mg/dL (70-99) 108 mg/dL (70-99) 103 mg/dL (70-99) Laboratory Tests Test 07/18/20 14:51 07/18/20 16:58 07/18/20 20:20 07/19/20 08:30 Glucose (Fingerstick) 121 mg/dL (70-99) 111 mg/dL (70-99) 108 mg/dL (70-99) 103 mg/dL (70-99) Microbiology 07/10/20 Urine Culture - Final, Complete 06/30/20 Gram Stain - Final, Complete 06/30/20 Aerobic and Anaerobic Culture - Final, Complete 06/17/20 Blood Culture - Final, Complete NO GROWTH AFTER 5 DAYS Medications Current Medications Amiodarone HCl 150 mg/Dextrose 103 ml @ 618 mls/hr 1X ONCE IV Last administered on 06/17/20at 07:00; Start 06/17/20 at 07:00; Stop 06/17/20 at 07:09; Status DC Amiodarone HCl 450 mg/Dextrose 259 ml @ 33 mls/hr 1X ONCE IV ; Start 06/17/20 at 07:00; Stop 06/17/20 at 14:50; Status DC Sodium Chloride 1,000 ml @ 1,000 mls/hr 1X ONCE IV Last administered on 06/17/20at 08:11; Start 06/17/20 at 07:15; Stop 06/17/20 at 08:14; Status DC Midazolam HCl 100 ml @ 0 mls/hr 1X ONCE IV ; Start 06/17/20 at 07:15; Stop 06/17/20 at 07:16; Status DC Midazolam HCl (Versed) 5 mg STK-MED ONCE .ROUTE ; Start 06/17/20 at 07:17; Stop 06/17/20 at 07:17; Status DC Iohexol (Omnipaque 300 Mg/ml) 75 ml 1X ONCE IV Last administered on 06/17/20at 08:17; Start 06/17/20 at 08:15; Stop 06/17/20 at 08:16; Status DC Iohexol (Omnipaque 350 Mg/ml) 100 ml 1X ONCE IV Last administered on 06/17/20at 08:17; Start 06/17/20 at 08:15; Stop 06/17/20 at 08:16; Status DC Info (CONTRAST GIVEN -- Rx MONITORING) 1 each PRN DAILY PRN MC SEE COMMENTS; Start 06/17/20 at 08:15; Stop 06/19/20 at 08:14; Status DC Sodium Chloride 1,000 ml @ 1,000 mls/hr 1X ONCE IV Last administered on 06/17/20at 08:25; Start 06/17/20 at 08:15; Stop 06/17/20 at 09:14; Status DC Potassium Chloride/Water 100 ml @ 50 mls/hr 1X ONCE IV Last administered on 06/17/20at 10:16; Start 06/17/20 at 09:00; Stop 06/17/20 at 10:59; Status DC Piperacillin Sod/ Tazobactam Sod (Zosyn Per Pharmacy) 1 each PRN DAILY PRN MC SEE COMMENTS; Start 06/17/20 at 08:45; Stop 06/27/20 at 11:36; Status DC Piperacillin Sod/ Tazobactam Sod 4.5 gm/Sodium Chloride 100 ml @ 200 mls/hr 1X ONCE IV Last administered on 06/17/20at 10:15; Start 06/17/20 at 08:45; Stop 06/17/20 at 09:14; Status DC Sodium Chloride 1,000 ml @ 125 mls/hr Q8H IV Last administered on 06/17/20at 23:39; Start 06/17/20 at 09:00; Stop 06/18/20 at 08:59; Status DC Propofol (Diprivan) 200 mg 1X ONCE IV Last administered on 06/17/20at 09:00; Start 06/17/20 at 09:00; Stop 06/17/20 at 09:01; Status DC Propofol 100 ml @ As Directed STK-MED ONCE IV ; Start 06/17/20 at 09:05; Stop 06/17/20 at 09:05; Status DC Lidocaine HCl (Lidocaine 1% 20ml Vial) 20 ml 1X ONCE INJ Last administered on 06/17/20at 09:15; Start 06/17/20 at 09:15; Stop 06/17/20 at 09:20; Status DC Lidocaine HCl (Xylocaine-Mpf 1% 5ml Vial) 5 ml STK-MED ONCE .ROUTE ; Start 06/17/20 at 09:26; Stop 06/17/20 at 09:26; Status DC Sodium Chloride 1,000 ml @ 1,000 mls/hr 1X ONCE IV Last administered on 06/17/20at 10:15; Start 06/17/20 at 10:15; Stop 06/17/20 at 11:14; Status DC Propofol 100 ml @ 3.819 mls/ hr CONT PRN IV PER PROTOCOL Last administered on 06/25/20at 06:12; Start 06/17/20 at 10:45; Stop 06/29/20 at 11:47; Status DC Fentanyl Citrate (Fentanyl 2ml Vial) 100 mcg 1X ONCE IV ; Start 06/17/20 at 12:00; Stop 06/17/20 at 12:39; Status DC Midazolam HCl (Versed) 2 mg 1X ONCE IV ; Start 06/17/20 at 12:00; Stop 06/17/20 at 12:39; Status DC Magnesium Sulfate/ Dextrose 100 ml @ 100 mls/hr 1X ONCE IV Last administered on 06/17/20at 12:22; Start 06/17/20 at 12:00; Stop 06/17/20 at 12:39; Status DC Buspirone HCl (Buspar) 30 mg Q8H NG Last administered on 06/17/20at 12:31; Start 06/17/20 at 12:00; Stop 06/17/20 at 12:39; Status DC Glycerin/ Hypromellose/ Polyethylene (Artificial Tears) 1 drop Q6HRS OU ; Start 06/17/20 at 12:00; Stop 06/17/20 at 12:39; Status DC Glycerin/ Hypromellose/ Polyethylene (Artificial Tears) 1 drop PRN Q15MIN PRN OU DRY EYE; Start 06/17/20 at 12:00; Stop 06/17/20 at 12:39; Status DC Heparin Sodium (Porcine) (Heparin Sodium) 5,000 unit BID SQ ; Start 06/17/20 at 21:00; Stop 06/17/20 at 12:39; Status DC Pantoprazole Sodium (PROTONIX VIAL for IV PUSH) 40 mg DAILY IVP ; Start 06/18/20 at 09:00; Stop 06/17/20 at 12:39; Status DC Fentanyl Citrate 30 ml @ 0 mls/hr CONT PRN IV PER PROTOCOL.; Start 06/17/20 at 12:00; Stop 06/17/20 at 12:39; Status DC Propofol 100 ml @ 0 mls/hr CONT PRN IV PER PROTOCOL.; Start 06/17/20 at 12:00; Stop 06/17/20 at 12:39; Status DC Midazolam HCl 100 ml @ 0 mls/hr CONT PRN IV PER PROTOCOL; Start 06/17/20 at 12:00; Stop 06/17/20 at 12:39; Status DC Vecuronium Barwick (Norcuron Bolus) 10 mg PRN Q1HR PRN IV SHIVERING; Start 06/17/20 at 12:00; Stop 06/17/20 at 12:39; Status DC Piperacillin Sod/ Tazobactam Sod 4.5 gm/Sodium Chloride 100 ml @ 200 mls/hr 1X ONCE IV ; Start 06/17/20 at 12:15; Stop 06/17/20 at 12:44; Status Cancel Midazolam HCl (Versed) 5 mg Q1HR PRN IV SEDATION Last administered on 06/29/20at 13:48; Start 06/17/20 at 12:45; Stop 07/08/20 at 12:59; Status DC Fentanyl Citrate (Fentanyl 2ml Vial) 100 mcg Q1HR IVP Last administered on 06/17/20at 18:55; Start 06/17/20 at 13:00; Stop 06/17/20 at 23:41; Status DC Piperacillin Sod/ Tazobactam Sod 3.375 gm/Sodium Chloride 50 ml @ 100 mls/hr Q6H IV Last administered on 06/27/20at 05:31; Start 06/17/20 at 16:00; Stop 06/27/20 at 11:30; Status DC Potassium Bicarbonate (Potassium Effervescent Tablet) 40 meq 1X ONCE NG Last administered on 06/18/20at 10:00; Start 06/18/20 at 09:45; Stop 06/18/20 at 09:48; Status DC Albuterol/ Ipratropium (Duoneb) 3 ml RTQID NEB Last administered on 07/19/20at 07:28; Start 06/18/20 at 20:00 Famotidine (Pepcid Vial) 20 mg BID IVP Last administered on 07/02/20at 08:05; Start 06/18/20 at 21:00; Stop 07/02/20 at 10:23; Status DC Enoxaparin Sodium (Lovenox 40mg Syringe) 40 mg Q24H SQ Last administered on 07/18/20at 21:28; Start 06/18/20 at 21:00 Levothyroxine Sodium (Synthroid) 75 mcg DAILY06 PO Last administered on 07/19/20 05:32; Start 06/18/20 at 21:00 Fentanyl Citrate 30 ml @ 0 mls/hr CONT PRN IV SEE PROTOCOL Last administered on 06/28/20at 04:56; Start 06/18/20 at 20:15; Stop 06/29/20 at 11:47; Status DC Carvedilol (Coreg) 3.125 mg BIDWMEALS PO Last administered on 07/19/20at 08:44; Start 06/19/20 at 17:00 Atorvastatin Calcium (Lipitor) 20 mg QHS PO Last administered on 07/18/20 21:23; Start 06/19/20 at 21:00 Aspirin (Aspirin Chewable) 81 mg DAILYWBKFT PO Last administered on 07/19/20at 08:43; Start 06/20/20 at 08:00 Aspirin (Aspirin Chewable) 81 mg 1X ONCE PO Last administered on 06/19/20at 15:57; Start 06/19/20 at 15:30; Stop 06/19/20 at 15:37; Status DC Potassium Chloride/Water 100 ml @ 100 mls/hr 1X ONCE IV Last administered on 06/19/20at 15:57; Start 06/19/20 at 15:30; Stop 06/19/20 at 16:29; Status DC Amiodarone HCl (Cordarone) 400 mg DAILY PO Last administered on 07/19/20at 08:42; Start 06/20/20 at 09:00 Furosemide (Lasix) 40 mg 1X ONCE IVP Last administered on 06/20/20at 14:38; Start 06/20/20 at 13:30; Stop 06/20/20 at 13:31; Status DC Potassium Chloride/Water 100 ml @ 100 mls/hr 1X ONCE IV Last administered on 06/20/20at 14:39; Start 06/20/20 at 13:30; Stop 06/20/20 at 14:29; Status DC Dexmedetomidine HCl 400 mcg/ Sodium Chloride 100 ml @ 0 mls/hr CONT PRN IV PER PROTOCOL Last administered on 06/29/20at 06:11; Start 06/21/20 at 10:45; Stop 06/29/20 at 11:47; Status DC Sodium Chloride 500 ml @ 500 mls/hr 1X PRN PRN IV SEE COMMENTS; Start 06/21/20 at 10:45 Atropine Sulfate (ATROPINE 0.5mg SYRINGE) 0.5 mg PRN Q5MIN PRN IV SEE COMMENTS; Start 06/21/20 at 10:45; Stop 06/29/20 at 11:47; Status DC Fentanyl Citrate (Fentanyl 2ml Vial) 50 mcg PRN Q2HR PRN IVP PAIN Last administered on 07/18/20at 21:27; Start 06/23/20 at 16:45 Midazolam HCl 100 ml @ 0 mls/hr CONT PRN IV SEE PROTOCOL Last administered on 06/28/20at 03:00; Start 06/25/20 at 11:45; Stop 06/29/20 at 11:47; Status DC Lidocaine HCl (Xylocaine-Mpf 1% 2ml Vial) 2 ml STK-MED ONCE .ROUTE ; Start 06/25/20 at 14:21; Stop 06/25/20 at 14:21; Status DC Iohexol (Omnipaque 300 Mg/ml) 100 ml STK-MED ONCE .ROUTE ; Start 06/25/20 at 14:21; Stop 06/25/20 at 14:21; Status DC Heparin Sodium/ Sodium Chloride 1,000 ml @ As Directed STK-MED ONCE .ROUTE ; Start 06/25/20 at 14:21; Stop 06/25/20 at 14:21; Status DC Heparin Sodium (Porcine) (Heparin Sodium) 10,000 unit STK-MED ONCE .ROUTE ; Start 06/25/20 at 14:31; Stop 06/25/20 at 14:31; Status DC Verapamil HCl (Verapamil) 5 mg STK-MED ONCE .ROUTE ; Start 06/25/20 at 14:31; Stop 06/25/20 at 14:31; Status DC Nitroglycerin (Nitroglycerin) 200 mcg STK-MED ONCE .ROUTE ; Start 06/25/20 at 14:31; Stop 06/25/20 at 14:31; Status DC Nitroglycerin (Nitroglycerin) 200 mcg 1X ONCE IART Last administered on 06/25/20at 15:09; Start 06/25/20 at 15:15; Stop 06/25/20 at 15:16; Status DC Verapamil HCl (Verapamil) 2.5 mg 1X ONCE IART Last administered on 06/25/20at 15:09; Start 06/25/20 at 15:15; Stop 06/25/20 at 15:16; Status DC Heparin Sodium (Porcine) (Heparin Sodium) 2,500 unit 1X ONCE IART Last administered on 06/25/20at 15:09; Start 06/25/20 at 15:15; Stop 06/25/20 at 15:16; Status DC Heparin Sodium/ Sodium Chloride (HEPARIN for ARTERIAL LINE FLUSH) 1,000 unit 1X ONCE IART Last administered on 06/25/20at 15:09; Start 06/25/20 at 15:15; Stop 06/25/20 at 15:16; Status DC Iohexol (Omnipaque 300 Mg/ml) 30 ml 1X ONCE IART Last administered on 06/25/20at 15:09; Start 06/25/20 at 15:15; Stop 06/25/20 at 15:16; Status DC Lidocaine HCl (Xylocaine-Mpf 1% 2ml Vial) 2 ml 1X ONCE INJ Last administered on 06/25/20at 15:09; Start 06/25/20 at 15:15; Stop 06/25/20 at 15:16; Status DC Amino Acids/ Glycerin/ Electrolytes 1,000 ml @ 80 mls/hr [id number] IV Last administered on 06/27/20at 20:50; Start 06/25/20 at 17:30; Stop 06/28/20 at 11:35; Status DC Potassium Chloride/Water 100 ml @ 100 mls/hr Q1H IV Last administered on 06/25/20at 18:46; Start 06/25/20 at 18:00; Stop 06/25/20 at 19:59; Status DC Rocuronium Barwick (Zemuron) 50 mg STK-MED ONCE .ROUTE ; Start 06/26/20 at 11:37; Stop 06/26/20 at 11:38; Status DC Cellulose (Surgicel Fibrillar 1x2) 1 each STK-MED ONCE .ROUTE Last administered on 06/26/20at 13:20; Start 06/26/20 at 12:19; Stop 06/26/20 at 12:19; Status DC Bupivacaine HCl (Sensorcaine Mpf 0.5%) 30 ml STK-MED ONCE .ROUTE ; Start 06/26/20 at 12:19; Stop 06/26/20 at 12:19; Status DC Ondansetron HCl (Zofran) 4 mg STK-MED ONCE .ROUTE ; Start 06/26/20 at 13:13; Stop 06/26/20 at 13:13; Status DC Dexamethasone Sodium Phosphate (Decadron) 4 mg STK-MED ONCE .ROUTE ; Start 06/26/20 at 13:13; Stop 06/26/20 at 13:14; Status DC Cellulose (Surgicel Fibrillar 1x2) 1 each STK-MED ONCE .ROUTE Last administered on 06/26/20at 13:22; Start 06/26/20 at 13:25; Stop 06/26/20 at 13:25; Status DC Sevoflurane (Ultane) 30 ml STK-MED ONCE IH ; Start 06/26/20 at 13:37; Stop 06/26/20 at 13:38; Status DC Propofol (Diprivan) 200 mg STK-MED ONCE IV ; Start 06/26/20 at 13:38; Stop 06/26/20 at 13:38; Status DC Ringer's Solution 1,000 ml @ 30 mls/hr Q24H IV Last administered on 06/27/20at 08:39; Start 06/27/20 at 07:00; Stop 06/27/20 at 18:59; Status DC Prochlorperazine Edisylate (Compazine) 5 mg PACU PRN PRN IV NAUSEA, MRX1; Start 06/27/20 at 07:00; Stop 06/28/20 at 06:59; Status DC Propofol (Diprivan) 200 mg STK-MED ONCE IV ; Start 06/27/20 at 09:53; Stop 06/27/20 at 09:54; Status DC Lidocaine HCl (Lidocaine Pf 2% Vial) 5 ml STK-MED ONCE .ROUTE ; Start 06/27/20 at 09:54; Stop 06/27/20 at 09:54; Status DC Lisinopril (Prinivil) 5 mg DAILY PO Last administered on 07/04/20at 09:23; Start 06/29/20 at 09:00; Stop 07/04/20 at 14:46; Status DC Acetaminophen/ Hydrocodone Bitart (Lortab 7.5-325/ 15ml Oral Solution) 10 ml 1X ONCE PEG Last administered on 06/28/20at 12:37; Start 06/28/20 at 12:30; Stop 06/28/20 at 12:31; Status DC Piperacillin Sod/ Tazobactam Sod 3.375 gm/Sodium Chloride 50 ml @ 100 mls/hr Q6HRS IV Last administered on 07/07/20at 06:11; Start 06/29/20 at 10:00; Stop 07/07/20 at 09:51; Status DC Vecuronium [place]wick (Norcuron Bolus) 10 mg STK-MED ONCE IV ; Start 06/29/20 at 14:31; Stop 06/29/20 at 14:31; Status DC Propofol 100 ml @ 0 mls/hr CONT PRN IV PER PROTOCOL Last administered on 07/02/20at 07:26; Start 06/29/20 at 16:30; Stop 07/08/20 at 12:58; Status DC Vecuronium [place]wick (Norcuron Bolus) 10 mg 1X ONCE IV Last administered on 06/29/20at 14:31; Start 06/29/20 at 14:31; Stop 06/29/20 at 17:19; Status DC Daptomycin 400 mg/ Sodium Chloride 50 ml @ 100 mls/hr Q24H IV Last administered on 07/04/20at 09:25; Start 06/30/20 at 10:00; Stop 07/05/20 at 08:14; Status DC Famotidine (Pepcid) 20 mg QHS GT Last administered on 07/18/20at 21:23; Start 07/02/20 at 21:00 Haloperidol Lactate (Haldol Inj) 5 mg Q8HRS IVP Last administered on 07/03/20at 06:00; Start 07/02/20 at 14:00; Stop 07/03/20 at 12:40; Status DC Micafungin Sodium 100 mg/Dextrose 100 ml @ 100 mls/hr Q24H IV Last administered on 07/05/20at 08:04; Start 07/03/20 at 09:00; Stop 07/05/20 at 08:14; Status DC Alteplase, Recombinant (Cathflo For Central Catheter Clearance) 1 mg 1X ONCE INT CAT Last administered on 07/03/20at 08:45; Start 07/03/20 at 08:45; Stop 07/03/20 at 08:46; Status DC Haloperidol Lactate (Haldol Inj) 2.5 mg PRN Q6HRS PRN IVP AGITATION; Start 07/03/20 at 12:30; Stop 07/03/20 at 12:40; Status DC Haloperidol Lactate (Haldol Inj) 2.5 mg PRN Q6HRS PRN IVP AGITATION Last administered on 07/04/20at 01:04; Start 07/03/20 at 14:00; Stop 07/04/20 at 08:04; Status DC Haloperidol Lactate (Haldol Inj) 2.5 mg Q8HRS IVP ; Start 07/04/20 at 10:00; Stop 07/04/20 at 08:15; Status DC Haloperidol Lactate (Haldol Inj) 2.5 mg PRN Q8HRS PRN IVP AGITATION; Start 07/04/20 at 08:15; Stop 07/05/20 at 10:35; Status DC Lisinopril (Prinivil) 20 mg BID PO Last administered on 07/19/20at 08:43; Start 07/04/20 at 21:00 Haloperidol (Haldol) 0.5 mg PRN Q8HRS PRN PO AGITATION-2ND CHOICE Last administered on 07/12/20at 16:13; Start 07/05/20 at 10:45 Acetaminophen (Tylenol) 650 mg PRN Q6HRS PRN PO MILD PAIN / TEMP > 100.3'F Last administered on 07/09/20at 21:20; Start 07/06/20 at 13:30 Amoxicillin/ Clavulanate Potassium (Augmentin 875/ 125mg) 1 tab BID PO Last administered on 07/11/20at 19:59; Start 07/07/20 at 21:00; Stop 07/12/20 at 09:57; Status DC Diphenhydramine HCl (Benadryl Oral Elixir) 25 mg PRN Q6HRS PRN PEG ITCHING Last administered on 07/11/20at 19:52; Start 07/10/20 at 19:15 Lorazepam (Ativan Inj) 1 mg PRN Q6HRS PRN IVP ANXIETY / AGITATION Last adminis tered on 07/11/20at 05:21; Start 07/11/20 at 05:15; Stop 07/11/20 at 09:07; Status DC Zolpidem Tartrate (Ambien) 2.5 mg HS PO Last administered on 07/11/20at 19:52; Start 07/11/20 at 21:00; Stop 07/12/20 at 09:57; Status DC Diphenhydramine HCl (Benadryl) 50 mg PRN Q6HRS PRN IVP itching/insomina Last administered on 07/18/20at 21:27; Start 07/12/20 at 01:00 Haloperidol Lactate (Haldol Inj) 5 mg PRN Q6HRS PRN IVP AGITATION Last administered on 07/14/20at 00:49; Start 07/12/20 at 01:00 Zolpidem Tartrate (Ambien) 5 mg HS PO Last administered on 07/14/20at 21:28; Start 07/12/20 at 21:00; Stop 07/15/20 at 10:51; Status DC Lorazepam (Ativan) 1 mg PRN Q6HRS PRN PO ANXIETY / AGITATION Last administered on 07/13/20at 01:45; Start 07/12/20 at 10:00; Stop 07/14/20 at 10:49; Status DC Fluconazole (Diflucan) 150 mg 1X ONCE PO ; Start 07/12/20 at 16:30; Stop 07/12/20 at 16:31; Status Cancel Clotrimazole (Mycelex-7) 1 reji HS VG Last administered on 07/18/20at 21:29; Start 07/12/20 at 21:00; Stop 07/19/20 at 20:59 Potassium Bicarbonate (Potassium Effervescent Tablet) 30 meq 1X ONCE PEG Last administered on 07/13/20at 09:43; Start 07/13/20 at 09:00; Stop 07/13/20 at 09:01; Status DC Sodium Chloride 1,000 ml @ 1,000 mls/hr 1X ONCE IV Last administered on 07/13/20at 12:02; Start 07/13/20 at 12:00; Stop 07/13/20 at 12:59; Status DC Haloperidol Lactate (Haldol Inj) 2 mg 1X ONCE IVP Last administered on 07/13/20at 12:03; Start 07/13/20 at 12:00; Stop 07/13/20 at 12:01; Status DC Neomycin/ Polymyxin/ Bacitracin (Triple Antibiotic Ointment) 1 pkt BID TP Last administered on 07/19/20at 08:42; Start 07/14/20 at 15:00 Potassium Bicarbonate (Potassium Effervescent Tablet) 20 meq BID PEG Last administered on 07/19/20at 08:43; Start 07/15/20 at 14:00 Haloperidol (Haldol) 5 mg HS PEG Last administered on 07/18/20at 21:26; Start 07/17/20 at 21:00 Active Scripts Active Reported Acetaminophen-Diphenhyd 500-25 (Acetaminophen/Diphenhydramine) 1 Each Tablet 1 Each PO HS PRN Naproxen 500 Mg Tablet 1 Tab PO BID PRN 30 Days Tramadol Hcl 50 Mg Tablet 50 Mg PO Q4HRS Levothyroxine Sodium 75 Mcg Tablet 1 Tab PO DAILY Adderall 20 Mg Tablet (Dextroamphetamine/Amphetamine) 20 Mg Tablet 1 Tab PO DAILY MDD 1 Tablet(s) 5 Days Prozac (Fluoxetine Hcl) 20 Mg Capsule 1 Cap PO [id number] Vitals/I & O Vital Sign - Last 24 Hours 07/18/20 07/18/20 07/18/20 07/18/20 10:52 11:05 15:00 15:54 Temp 98.2 98.0 98.2 98.0 Pulse 76 85 Resp 18 18 B/P (MAP) 146/82 (103) 138/77 (97) Pulse Ox 95 94 O2 Delivery Room Air Room Air Room Air Room Air 07/18/20 07/18/20 07/18/20 07/18/20 19:00 19:30 20:14 21:24 Temp 97.6 97.6 Pulse 102 102 Resp 20 B/P (MAP) 117/78 (91) 117/78 Pulse Ox 97 95 O2 Delivery Room Air Room Air Room Air 07/18/20 07/18/20 07/18/20 07/19/20 21:27 21:57 23:00 02:35 Temp 97.7 97.7 97.7 97.7 Pulse 90 85 Resp 18 18 18 18 B/P (MAP) 135/67 (89) 123/79 (94) Pulse Ox 95 95 95 92 O2 Delivery Room Air Room Air Room Air Room Air 07/19/20 07/19/20 07/19/20 07/19/20 07:00 07:29 08:42 08:43 Temp 98.3 98.3 Pulse 96 96 96 Resp 16 B/P (MAP) 144/78 (100) 144/78 144/78 Pulse Ox 94 96 O2 Delivery Room Air Room Air 07/19/20 08:44 Pulse 96 B/P (MAP) 144/78 Intake and Output 07/18/20 07/18/20 07/19/20 15:00 23:00 07:00 Intake Total 375 ml 412 ml Output Total 0 ml Balance 375 ml 412 ml Justicifation of Admission Dx: Justifications for Admission: Justification of Admission Dx: N/A MIMI FREEMAN MD Jul 19, 2020 10:46
[2020-07-19] MEDS: FAMOTIDINE 20 MG TABLET. GT SCH (19:51)
[2020-07-19] MEDS: HALOPERIDOL 5 MG TABLET. PEG SCH (19:52)
[2020-07-19] MEDS: fentaNYL PF VIAL 100 MCG/2 ML VIAL IVP PRN (19:53)
[2020-07-19] MEDS: ENOXAPARIN 40 MG/0.4 ML SYRINGE. SQ SCH (19:53)
[2020-07-19] MEDS: diphenhydrAMINE 50 MG/ML VIAL IVP PRN (19:54)
[2020-07-19] MEDS: ATORVASTATIN CALCIUM 20 MG TABLET PO SCH (19:54)
[2020-07-20 03:00] VITALS: BP 134/93
[2020-07-20] MEDS: LEVOTHYROXINE 75 MCG TABLET PO SCH (04:52)
[2020-07-20 07:00] VITALS: BP 123/73
[2020-07-20] MEDS: IPRATRPIUM/ALBUTEROL 0.5/2.5MG 3 ML NEBU. NEB SCH ×4 (07:14→19:49)
[2020-07-20] MEDS: LISINOPRIL 20 MG TABLET PO SCH ×2 (08:59→20:05)
[2020-07-20] MEDS: CARVEDILOL 3.125 MG TABLET. PO SCH ×2 (08:59→16:49)
[2020-07-20] MEDS: ASPIRIN CHEWABLE 81 MG TABLET. PO SCH (09:00)
[2020-07-20] MEDS: NEOMY/BACITR/POLYMYXIN OINT PACKET. TP SCH ×2 (09:00→20:04)
[2020-07-20] MEDS: AMIODARONE HCL 200 MG TABLET. PO SCH (09:00)
[2020-07-20] MEDS: POTASSIUM BICARB 20 MEQ EFFERVESCENT TABLET. PEG SCH ×2 (09:00→20:05)
--- NOTE | 2020-07-20 09:27 | PDOC ---
Date of Service: DATE: 07/20/20 TIME: 09:26 Subjective: Subjective: Saw getting out of elevator - expressed no GI concerns. Objective: Vital Signs: Vital Signs Date Time Temp Pulse Resp B/P (MAP) Pulse Ox O2 Delivery O2 Flow Rate FiO2 07/20/20 09:00 94 123/73 07/20/20 07:04 96 Room Air 07/20/20 07:00 98.7 16 98.7 07/19/20 19:53 8.0 Labs: Laboratory Tests Test 07/19/20 12:19 07/19/20 17:28 07/19/20 21:40 07/20/20 07:58 Glucose (Fingerstick) 133 mg/dL 102 mg/dL 100 mg/dL 111 mg/dL PE: GEN: NAD NEURO/PSYCH: resting, not disturbed A/P: Anoxic encephalopathy s/p PEG -- Awaiting discharge plans. Justicifation of Admission Dx: Justifications for Admission: Justification of Admission Dx: N/A SHAHBAZ FOSS Jul 20, 2020 09:27
--- NOTE | 2020-07-20 09:53 | NUR ---
SHIKHA following. Discussed with RN, pt on room air, MARILYN, COVID-19 negative. Pt accepted at [facility] pending bed availability. SHIKHA sent message to Brian at [facility] to determine bed availability. Pt ready to discharge when bed available. SHIKHA will continue to follow. Addendum: 07/20/20 at 1140 by ROMMEL TRIVEDI Brian at [facility] advised they do not have a bed today as of yet, but will let SHIKHA know again this afternoon. SHIKHA will continue to follow. Addendum: 07/20/20 at 1459 by ROMMEL TRIVEDI Updates faxed to [facility]. Pt can discharge over the weekend if a bed becomes available. Pt added to weekend discharge list. SHIKHA will continue to follow.
--- NOTE | 2020-07-20 10:25 | PDOC ---
PROGRESS NOTES Date of Service: DATE: 07/20/20 TIME: 10:21 Chief Complaint Chief Complaint IMPRESSION POST covid cardiomyopathy acute systolic CHF Severe NICM: EF 25%. No significant CAD per [facility] anoxic brain injury Cardiac arrest with resuscitation and probable pneumonia, sternal fracture and pneumothorax secondary to CPR, leukocytosis, electrolyte disturbance, hypokalemia, lactic acidosis, elevated troponin. Disposition pending referrals DC Ativan, use Haldol will increase to 5 mg again since she did not sleep with decreased dose of 2.5 mg requested by the , discussed with nursing staff Trach 06/26/20, PEG on 06/27/20 History of Present Illness History of Present Illness 2-5 no new events, she did not sleep as well as the night before. 2-4 no acute events reported overnight pretty much status quo still waiting for disposition 2-3 patient resting comfortably today she fell asleep around 3:00 in the morning as per nursing staff. She received Haldol yesterday instead of Ambien, we have discussed allowing patient to sleep in the evening time and to avoid excessive stimulation during the evening hours. Awaiting for case management for an update regarding disposition 2-2 patient seems to be status quo, unfortunately is having a tough time with the loss of his partner. He understands that he cannot take care of her at home and we are awaiting for case management to provide us with a viable option moving forward 2-1 no acute events reported overnight, case discussed with nursing staff patient in no acute distress no complaints during my visit, hopefully we can start the process of discharge she will certainly need transitioning to an institution unlikely to be able to be cared for at home since she requires full- time care 07-15 trach removed d/w DR Aguiar have stopped iv ativan yesterday, SAID YES TO when asked about some remote memories 07-14 DC Ativan, use Haldol appears less agitated d/w in room Trach 06/26/20, PEG on 06/27/20 D/W IN ROOM, SHE IS NOW TRACKING AT TIMES 07/13 MOVING BOTH LEGS AND ARMS without apparent purpose, family working on placement barriers , HYPOKALEMIC, ON REPLACEMENT D/W RN, ALSO VAG CANDIDIASIS, ON MONISTAT VAG CREAM D/W RN 07/09 S/P cardiac arrest 06/17 S/P trach on 06/26 ----- S/P peg 06/27 NO 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 No significant change overnight, still no purposeful movements. Sounds as though family still plans to hold off on any change in CODE STATUS or goals of care until at least 30 days after admission date. did show me some video of patient smiling and having meaningful exchange with a family friend today. 07/07. Transfer out of ICU to the medical floors. Discussed with , he feels that music is helping patient. She will occasionally check in with eyes, but no purposeful movements. Has been mentioned trying to give 30 days for admission to show any signs of meaningful improvement. At which time decision will be made about hospice in future goals of care. 07/06, will transfer to floor, no tele, off vent now for some time. discussed with , she does seem improved, she had a tiny smile to some music earlier, still not following commands or any purposeful response 07/05, about the same, discussed my previous thoughts again with and son, not following commands, movement is seeming to be mostly reflexive. they still want to cont iwth the 30 days plan to give her a chance to improve. I discussed possible transition to hospice, they want to wait until that time. 07/04-, minmal change, some relfexive movements, had a video of her withdrawing to light touch to face, soem work with PT, not following commands as directed I discussed poor prognosis with at length, that as days go by, her chances for meaningful recovery continue to dim. I discussed consideration of hospice care. 07/03/2020, discussed plan with family at length yesterday Patient seen and examined in the ICU plan LTAC, but denied start PT and OT moving around a lot She is still not very responsive but at the same time less agitated Vitals Vitals Vital Signs Date Time Temp Pulse Resp B/P (MAP) Pulse Ox O2 Delivery O2 Flow Rate FiO2 07/20/20 09:00 94 123/73 07/20/20 07:04 96 Room Air 07/20/20 07:00 98.7 16 98.7 07/19/20 19:53 8.0 Physical Exam Physical Exam GENERAL: Opens eyes transiently, does not follow any commands, Moving arms and legs, not thrusting tongue HEENT: Both pupils are round and reacting. No conjunctival lesion. NECK: Supple. Trach present, erythema and drainage present around trach site improving LUNGS: Decreased breath sounds bilaterally. HEART: S1, S2, regular. No gallop or murmur. ABDOMEN: Soft, nontender. No organomegaly.peg tube + fecal tube , Jolly present EXTREMITIES: No edema or cyanosis. toe amputation of the Rt foot,healed scars SKIN: Unremarkable. NEUROLOGICAL: Opens eyes transiently does not follow any commands, LAUGHS when talking to family General: Cooperative, No acute distress Heart: Regular rate, Normal S1, Normal S2 Lungs: Clear Abdomen: Normal bowel sounds, Soft, No tenderness, No hepatosplenomegaly, No masses Extremities: No cyanosis Skin: No rashes, No breakdown Labs LABS Laboratory Tests Test 07/19/20 12:19 07/19/20 17:28 07/19/20 21:40 07/20/20 07:58 Glucose (Fingerstick) 133 mg/dL (70-99) 102 mg/dL (70-99) 100 mg/dL (70-99) 111 mg/dL (70-99) Assessment and Plan Assessmemt and Plan Problems Medical Problems: (1) Cardiac arrest Status: Acute (2) Fracture of ribs, multiple Status: Acute (3) Hyperglycemia Status: Acute (4) Pneumonia Status: Acute (5) Pneumothorax, right Status: Acute (6) Sternal fracture Status: Acute (7) VF (ventricular fibrillation) Status: Acute Comment Review of Relevant I have reviewed the following items afua (where applicable) has been applied. Labs Laboratory Tests Test 07/18/20 14:51 07/18/20 16:58 07/18/20 20:20 07/19/20 08:30 Glucose (Fingerstick) 121 mg/dL (70-99) 111 mg/dL (70-99) 108 mg/dL (70-99) 103 mg/dL (70-99) Test 07/19/20 12:19 07/19/20 17:28 07/19/20 21:40 07/20/20 07:58 Glucose (Fingerstick) 133 mg/dL (70-99) 102 mg/dL (70-99) 100 mg/dL (70-99) 111 mg/dL (70-99) Laboratory Tests Test 07/19/20 12:19 07/19/20 17:28 07/19/20 21:40 07/20/20 07:58 Glucose (Fingerstick) 133 mg/dL (70-99) 102 mg/dL (70-99) 100 mg/dL (70-99) 111 mg/dL (70-99) Microbiology 07/10/20 Urine Culture - Final, Complete 06/30/20 Gram Stain - Final, Complete 06/30/20 Aerobic and Anaerobic Culture - Final, Complete 06/17/20 Blood Culture - Final, Complete NO GROWTH AFTER 5 DAYS Medications Current Medications Amiodarone HCl 150 mg/Dextrose 103 ml @ 618 mls/hr 1X ONCE IV Last administered on 06/17/20at 07:00; Start 06/17/20 at 07:00; Stop 06/17/20 at 07:09; Status DC Amiodarone HCl 450 mg/Dextrose 259 ml @ 33 mls/hr 1X ONCE IV ; Start 06/17/20 at 07:00; Stop 06/17/20 at 14:50; Status DC Sodium Chloride 1,000 ml @ 1,000 mls/hr 1X ONCE IV Last administered on 06/17/20at 08:11; Start 06/17/20 at 07:15; Stop 06/17/20 at 08:14; Status DC Midazolam HCl 100 ml @ 0 mls/hr 1X ONCE IV ; Start 06/17/20 at 07:15; Stop 06/17/20 at 07:16; Status DC Midazolam HCl (Versed) 5 mg STK-MED ONCE .ROUTE ; Start 06/17/20 at 07:17; Stop 06/17/20 at 07:17; Status DC Iohexol (Omnipaque 300 Mg/ml) 75 ml 1X ONCE IV Last administered on 06/17/20at 08:17; Start 06/17/20 at 08:15; Stop 06/17/20 at 08:16; Status DC Iohexol (Omnipaque 350 Mg/ml) 100 ml 1X ONCE IV Last administered on 06/17/20at 08:17; Start 06/17/20 at 08:15; Stop 06/17/20 at 08:16; Status DC Info (CONTRAST GIVEN -- Rx MONITORING) 1 each PRN DAILY PRN MC SEE COMMENTS; Start 06/17/20 at 08:15; Stop 06/19/20 at 08:14; Status DC Sodium Chloride 1,000 ml @ 1,000 mls/hr 1X ONCE IV Last administered on 06/17/20at 08:25; Start 06/17/20 at 08:15; Stop 06/17/20 at 09:14; Status DC Potassium Chloride/Water 100 ml @ 50 mls/hr 1X ONCE IV Last administered on 06/17/20at 10:16; Start 06/17/20 at 09:00; Stop 06/17/20 at 10:59; Status DC Piperacillin Sod/ Tazobactam Sod (Zosyn Per Pharmacy) 1 each PRN DAILY PRN MC SEE COMMENTS; Start 06/17/20 at 08:45; Stop 06/27/20 at 11:36; Status DC Piperacillin Sod/ Tazobactam Sod 4.5 gm/Sodium Chloride 100 ml @ 200 mls/hr 1X ONCE IV Last administered on 06/17/20at 10:15; Start 06/17/20 at 08:45; Stop 06/17/20 at 09:14; Status DC Sodium Chloride 1,000 ml @ 125 mls/hr Q8H IV Last administered on 06/17/20at 23:39; Start 06/17/20 at 09:00; Stop 06/18/20 at 08:59; Status DC Propofol (Diprivan) 200 mg 1X ONCE IV Last administered on 06/17/20at 09:00; Start 06/17/20 at 09:00; Stop 06/17/20 at 09:01; Status DC Propofol 100 ml @ As Directed STK-MED ONCE IV ; Start 06/17/20 at 09:05; Stop 06/17/20 at 09:05; Status DC Lidocaine HCl (Lidocaine 1% 20ml Vial) 20 ml 1X ONCE INJ Last administered on 06/17/20at 09:15; Start 06/17/20 at 09:15; Stop 06/17/20 at 09:20; Status DC Lidocaine HCl (Xylocaine-Mpf 1% 5ml Vial) 5 ml STK-MED ONCE .ROUTE ; Start 06/17/20 at 09:26; Stop 06/17/20 at 09:26; Status DC Sodium Chloride 1,000 ml @ 1,000 mls/hr 1X ONCE IV Last administered on 06/17/20at 10:15; Start 06/17/20 at 10:15; Stop 06/17/20 at 11:14; Status DC Propofol 100 ml @ 3.819 mls/ hr CONT PRN IV PER PROTOCOL Last administered on 06/25/20at 06:12; Start 06/17/20 at 10:45; Stop 06/29/20 at 11:47; Status DC Fentanyl Citrate (Fentanyl 2ml Vial) 100 mcg 1X ONCE IV ; Start 06/17/20 at 12:00; Stop 06/17/20 at 12:39; Status DC Midazolam HCl (Versed) 2 mg 1X ONCE IV ; Start 06/17/20 at 12:00; Stop 06/17/20 at 12:39; Status DC Magnesium Sulfate/ Dextrose 100 ml @ 100 mls/hr 1X ONCE IV Last administered on 06/17/20at 12:22; Start 06/17/20 at 12:00; Stop 06/17/20 at 12:39; Status DC Buspirone HCl (Buspar) 30 mg Q8H NG Last administered on 06/17/20at 12:31; Start 06/17/20 at 12:00; Stop 06/17/20 at 12:39; Status DC Glycerin/ Hypromellose/ Polyethylene (Artificial Tears) 1 drop Q6HRS OU ; Start 06/17/20 at 12:00; Stop 06/17/20 at 12:39; Status DC Glycerin/ Hypromellose/ Polyethylene (Artificial Tears) 1 drop PRN Q15MIN PRN OU DRY EYE; Start 06/17/20 at 12:00; Stop 06/17/20 at 12:39; Status DC Heparin Sodium (Porcine) (Heparin Sodium) 5,000 unit BID SQ ; Start 06/17/20 at 21:00; Stop 06/17/20 at 12:39; Status DC Pantoprazole Sodium (PROTONIX VIAL for IV PUSH) 40 mg DAILY IVP ; Start 06/18/20 at 09:00; Stop 06/17/20 at 12:39; Status DC Fentanyl Citrate 30 ml @ 0 mls/hr CONT PRN IV PER PROTOCOL.; Start 06/17/20 at 12:00; Stop 06/17/20 at 12:39; Status DC Propofol 100 ml @ 0 mls/hr CONT PRN IV PER PROTOCOL.; Start 06/17/20 at 12:00; Stop 06/17/20 at 12:39; Status DC Midazolam HCl 100 ml @ 0 mls/hr CONT PRN IV PER PROTOCOL; Start 06/17/20 at 12:00; Stop 06/17/20 at 12:39; Status DC Vecuronium [place] (Norcuron Bolus) 10 mg PRN Q1HR PRN IV SHIVERING; Start 06/17/20 at 12:00; Stop 06/17/20 at 12:39; Status DC Piperacillin Sod/ Tazobactam Sod 4.5 gm/Sodium Chloride 100 ml @ 200 mls/hr 1X ONCE IV ; Start 06/17/20 at 12:15; Stop 06/17/20 at 12:44; Status Cancel Midazolam HCl (Versed) 5 mg Q1HR PRN IV SEDATION Last administered on 06/29/20at 13:48; Start 06/17/20 at 12:45; Stop 07/08/20 at 12:59; Status DC Fentanyl Citrate (Fentanyl 2ml Vial) 100 mcg Q1HR IVP Last administered on 06/17/20at 18:55; Start 06/17/20 at 13:00; Stop 06/17/20 at 23:41; Status DC Piperacillin Sod/ Tazobactam Sod 3.375 gm/Sodium Chloride 50 ml @ 100 mls/hr Q6H IV Last administered on 06/27/20at 05:31; Start 06/17/20 at 16:00; Stop 06/27/20 at 11:30; Status DC Potassium Bicarbonate (Potassium Effervescent Tablet) 40 meq 1X ONCE NG Last administered on 06/18/20at 10:00; Start 06/18/20 at 09:45; Stop 06/18/20 at 09:48; Status DC Albuterol/ Ipratropium (Duoneb) 3 ml RTQID NEB Last administered on 07/20/20at 07:14; Start 06/18/20 at 20:00 Famotidine (Pepcid Vial) 20 mg BID IVP Last administered on 07/02/20at 08:05; Start 06/18/20 at 21:00; Stop 07/02/20 at 10:23; Status DC Enoxaparin Sodium (Lovenox 40mg Syringe) 40 mg Q24H SQ Last administered on 07/19/20at 19:53; Start 06/18/20 at 21:00 Levothyroxine Sodium (Synthroid) 75 mcg DAILY06 PO Last administered on 07/20/20at 04:52; Start 06/18/20 at 21:00 Fentanyl Citrate 30 ml @ 0 mls/hr CONT PRN IV SEE PROTOCOL Last administered on 06/28/20at 04:56; Start 06/18/20 at 20:15; Stop 06/29/20 at 11:47; Status DC Carvedilol (Coreg) 3.125 mg BIDWMEALS PO Last administered on 07/20/20at 08:59; Start 06/19/20 at 17:00 Atorvastatin Calcium (Lipitor) 20 mg QHS PO Last administered on 07/19/20at 19:54; Start 06/19/20 at 21:00 Aspirin (Aspirin Chewable) 81 mg DAILYWBKFT PO Last administered on 07/20/20at 09:00; Start 06/20/20 at 08:00 Aspirin (Aspirin Chewable) 81 mg 1X ONCE PO Last administered on 06/19/20at 15:57; Start 06/19/20 at 15:30; Stop 06/19/20 at 15:37; Status DC Potassium Chloride/Water 100 ml @ 100 mls/hr 1X ONCE IV Last administered on 06/19/20at 15:57; Start 06/19/20 at 15:30; Stop 06/19/20 at 16:29; Status DC Amiodarone HCl (Cordarone) 400 mg DAILY PO Last administered on 07/20/20at 09:00; Start 06/20/20 at 09:00 Furosemide (Lasix) 40 mg 1X ONCE IVP Last administered on 06/20/20at 14:38; Start 06/20/20 at 13:30; Stop 06/20/20 at 13:31; Status DC Potassium Chloride/Water 100 ml @ 100 mls/hr 1X ONCE IV Last administered on 06/20/20at 14:39; Start 06/20/20 at 13:30; Stop 06/20/20 at 14:29; Status DC Dexmedetomidine HCl 400 mcg/ Sodium Chloride 100 ml @ 0 mls/hr CONT PRN IV PER PROTOCOL Last administered on 06/29/20at 06:11; Start 06/21/20 at 10:45; Stop 06/29/20 at 11:47; Status DC Sodium Chloride 500 ml @ 500 mls/hr 1X PRN PRN IV SEE COMMENTS; Start 06/21/20 at 10:45 Atropine Sulfate (ATROPINE 0.5mg SYRINGE) 0.5 mg PRN Q5MIN PRN IV SEE COMMENTS; Start 06/21/20 at 10:45; Stop 06/29/20 at 11:47; Status DC Fentanyl Citrate (Fentanyl 2ml Vial) 50 mcg PRN Q2HR PRN IVP PAIN Last administered on 07/19/20at 19:53; Start 06/23/20 at 16:45 Midazolam HCl 100 ml @ 0 mls/hr CONT PRN IV SEE PROTOCOL Last administered on 06/28/20at 03:00; Start 06/25/20 at 11:45; Stop 06/29/20 at 11:47; Status DC Lidocaine HCl (Xylocaine-Mpf 1% 2ml Vial) 2 ml STK-MED ONCE .ROUTE ; Start 06/25/20 at 14:21; Stop 06/25/20 at 14:21; Status DC Iohexol (Omnipaque 300 Mg/ml) 100 ml STK-MED ONCE .ROUTE ; Start 06/25/20 at 14:21; Stop 06/25/20 at 14:21; Status DC Heparin Sodium/ Sodium Chloride 1,000 ml @ As Directed STK-MED ONCE .ROUTE ; Start 06/25/20 at 14:21; Stop 06/25/20 at 14:21; Status DC Heparin Sodium (Porcine) (Heparin Sodium) 10,000 unit STK-MED ONCE .ROUTE ; Start 06/25/20 at 14:31; Stop 06/25/20 at 14:31; Status DC Verapamil HCl (Verapamil) 5 mg STK-MED ONCE .ROUTE ; Start 06/25/20 at 14:31; Stop 06/25/20 at 14:31; Status DC Nitroglycerin (Nitroglycerin) 200 mcg STK-MED ONCE .ROUTE ; Start 06/25/20 at 14:31; Stop 06/25/20 at 14:31; Status DC Nitroglycerin (Nitroglycerin) 200 mcg 1X ONCE IART Last administered on 06/25/20at 15:09; Start 06/25/20 at 15:15; Stop 06/25/20 at 15:16; Status DC Verapamil HCl (Verapamil) 2.5 mg 1X ONCE IART Last administered on 06/25/20at 15:09; Start 06/25/20 at 15:15; Stop 06/25/20 at 15:16; Status DC Heparin Sodium (Porcine) (Heparin Sodium) 2,500 unit 1X ONCE IART Last administered on 06/25/20at 15:09; Start 06/25/20 at 15:15; Stop 06/25/20 at 15:16; Status DC Heparin Sodium/ Sodium Chloride (HEPARIN for ARTERIAL LINE FLUSH) 1,000 unit 1X ONCE IART Last administered on 06/25/20at 15:09; Start 06/25/20 at 15:15; Stop 06/25/20 at 15:16; Status DC Iohexol (Omnipaque 300 Mg/ml) 30 ml 1X ONCE IART Last administered on 06/25/20at 15:09; Start 06/25/20 at 15:15; Stop 06/25/20 at 15:16; Status DC Lidocaine HCl (Xylocaine-Mpf 1% 2ml Vial) 2 ml 1X ONCE INJ Last administered on 06/25/20at 15:09; Start 06/25/20 at 15:15; Stop 06/25/20 at 15:16; Status DC Amino Acids/ Glycerin/ Electrolytes 1,000 ml @ 80 mls/hr [id number] IV Last administered on 06/27/20at 20:50; Start 06/25/20 at 17:30; Stop 06/28/20 at 11:35; Status DC Potassium Chloride/Water 100 ml @ 100 mls/hr Q1H IV Last administered on 06/25/20at 18:46; Start 06/25/20 at 18:00; Stop 06/25/20 at 19:59; Status DC Rocuronium [place] (Zemuron) 50 mg STK-MED ONCE .ROUTE ; Start 06/26/20 at 11:37; Stop 06/26/20 at 11:38; Status DC Cellulose (Surgicel Fibrillar 1x2) 1 each STK-MED ONCE .ROUTE Last administered on 06/26/20at 13:20; Start 06/26/20 at 12:19; Stop 06/26/20 at 12:19; Status DC Bupivacaine HCl (Sensorcaine Mpf 0.5%) 30 ml STK-MED ONCE .ROUTE ; Start 06/26/20 at 12:19; Stop 06/26/20 at 12:19; Status DC Ondansetron HCl (Zofran) 4 mg STK-MED ONCE .ROUTE ; Start 06/26/20 at 13:13; Stop 06/26/20 at 13:13; Status DC Dexamethasone Sodium Phosphate (Decadron) 4 mg STK-MED ONCE .ROUTE ; Start 06/26/20 at 13:13; Stop 06/26/20 at 13:14; Status DC Cellulose (Surgicel Fibrillar 1x2) 1 each STK-MED ONCE .ROUTE Last administered on 06/26/20at 13:22; Start 06/26/20 at 13:25; Stop 06/26/20 at 13:25; Status DC Sevoflurane (Ultane) 30 ml STK-MED ONCE IH ; Start 06/26/20 at 13:37; Stop 06/26/20 at 13:38; Status DC Propofol (Diprivan) 200 mg STK-MED ONCE IV ; Start 06/26/20 at 13:38; Stop 06/26/20 at 13:38; Status DC Ringer's Solution 1,000 ml @ 30 mls/hr Q24H IV Last administered on 06/27/20at 08:39; Start 06/27/20 at 07:00; Stop 06/27/20 at 18:59; Status DC Prochlorperazine Edisylate (Compazine) 5 mg PACU PRN PRN IV NAUSEA, MRX1; Start 06/27/20 at 07:00; Stop 06/28/20 at 06:59; Status DC Propofol (Diprivan) 200 mg STK-MED ONCE IV ; Start 06/27/20 at 09:53; Stop 06/27/20 at 09:54; Status DC Lidocaine HCl (Lidocaine Pf 2% Vial) 5 ml STK-MED ONCE .ROUTE ; Start 06/27/20 at 09:54; Stop 06/27/20 at 09:54; Status DC Lisinopril (Prinivil) 5 mg DAILY PO Last administered on 07/04/20at 09:23; Start 06/29/20 at 09:00; Stop 07/04/20 at 14:46; Status DC Acetaminophen/ Hydrocodone Bitart (Lortab 7.5-325/ 15ml Oral Solution) 10 ml 1X ONCE PEG Last administered on 06/28/20at 12:37; Start 06/28/20 at 12:30; Stop 06/28/20 at 12:31; Status DC Piperacillin Sod/ Tazobactam Sod 3.375 gm/Sodium Chloride 50 ml @ 100 mls/hr Q6HRS IV Last administered on 07/07/20at 06:11; Start 06/29/20 at 10:00; Stop 07/07/20 at 09:51; Status DC Vecuronium [place] (Norcuron Bolus) 10 mg STK-MED ONCE IV ; Start 06/29/20 at 14:31; Stop 06/29/20 at 14:31; Status DC Propofol 100 ml @ 0 mls/hr CONT PRN IV PER PROTOCOL Last administered on 07/02/20at 07:26; Start 06/29/20 at 16:30; Stop 07/08/20 at 12:58; Status DC Vecuronium [place] (Norcuron Bolus) 10 mg 1X ONCE IV Last administered on 06/29/20at 14:31; Start 06/29/20 at 14:31; Stop 06/29/20 at 17:19; Status DC Daptomycin 400 mg/ Sodium Chloride 50 ml @ 100 mls/hr Q24H IV Last administered on 07/04/20at 09:25; Start 06/30/20 at 10:00; Stop 07/05/20 at 08: 14; Status DC Famotidine (Pepcid) 20 mg QHS GT Last administered on 07/19/20at 19:51; Start 07/02/20 at 21:00 Haloperidol Lactate (Haldol Inj) 5 mg Q8HRS IVP Last administered on 07/03/20at 06:00; Start 07/02/20 at 14:00; Stop 07/03/20 at 12:40; Status DC Micafungin Sodium 100 mg/Dextrose 100 ml @ 100 mls/hr Q24H IV Last administered on 07/05/20at 08:04; Start 07/03/20 at 09:00; Stop 07/05/20 at 08:14; Status DC Alteplase, Recombinant (Cathflo For Central Catheter Clearance) 1 mg 1X ONCE INT CAT Last administered on 07/03/20at 08:45; Start 07/03/20 at 08:45; Stop 07/03/20 at 08:46; Status DC Haloperidol Lactate (Haldol Inj) 2.5 mg PRN Q6HRS PRN IVP AGITATION; Start 07/03/20 at 12:30; Stop 07/03/20 at 12:40; Status DC Haloperidol Lactate (Haldol Inj) 2.5 mg PRN Q6HRS PRN IVP AGITATION Last administered on 07/04/20at 01:04; Start 07/03/20 at 14:00; Stop 07/04/20 at 08:04; Status DC Haloperidol Lactate (Haldol Inj) 2.5 mg Q8HRS IVP ; Start 07/04/20 at 10:00; Stop 07/04/20 at 08:15; Status DC Haloperidol Lactate (Haldol Inj) 2.5 mg PRN Q8HRS PRN IVP AGITATION; Start 07/04/20 at 08:15; Stop 07/05/20 at 10:35; Status DC Lisinopril (Prinivil) 20 mg BID PO Last administered on 07/20/20at 08:59; Start 07/04/20 at 21:00 Haloperidol (Haldol) 0.5 mg PRN Q8HRS PRN PO AGITATION-2ND CHOICE Last administered on 07/12/20at 16:13; Start 07/05/20 at 10:45 Acetaminophen (Tylenol) 650 mg PRN Q6HRS PRN PO MILD PAIN / TEMP > 100.3'F Last administered on 07/09/20at 21:20; Start 07/06/20 at 13:30 Amoxicillin/ Clavulanate Potassium (Augmentin 875/ 125mg) 1 tab BID PO Last administered on 07/11/20at 19:59; Start 07/07/20 at 21:00; Stop 07/12/20 at 09:57 ; Status DC Diphenhydramine HCl (Benadryl Oral Elixir) 25 mg PRN Q6HRS PRN PEG ITCHING Last administered on 07/11/20at 19:52; Start 07/10/20 at 19:15 Lorazepam (Ativan Inj) 1 mg PRN Q6HRS PRN IVP ANXIETY / AGITATION Last administered on 07/11/20at 05:21; Start 07/11/20 at 05:15; Stop 07/11/20 at 09:07; Status DC Zolpidem Tartrate (Ambien) 2.5 mg HS PO Last administered on 07/11/20at 19:52; Start 07/11/20 at 21:00; Stop 07/12/20 at 09:57; Status DC Diphenhydramine HCl (Benadryl) 50 mg PRN Q6HRS PRN IVP itching/insomina Last administered on 07/19/20at 19:54; Start 07/12/20 at 01:00 Haloperidol Lactate (Haldol Inj) 5 mg PRN Q6HRS PRN IVP AGITATION Last administered on 07/14/20at 00:49; Start 07/12/20 at 01:00 Zolpidem Tartrate (Ambien) 5 mg HS PO Last administered on 07/14/20at 21:28; Start 07/12/20 at 21:00; Stop 07/15/20 at 10:51; Status DC Lorazepam (Ativan) 1 mg PRN Q6HRS PRN PO ANXIETY / AGITATION Last administered on 07/13/20at 01:45; Start 07/12/20 at 10:00; Stop 07/14/20 at 10:49; Status DC Fluconazole (Diflucan) 150 mg 1X ONCE PO ; Start 07/12/20 at 16:30; Stop 07/12/20 at 16:31; Status Cancel Clotrimazole (Mycelex-7) 1 reji HS VG Last administered on 07/18/20at 21:29; Start 07/12/20 at 21:00; Stop 07/19/20 at 20:59; Status DC Potassium Bicarbonate (Potassium Effervescent Tablet) 30 meq 1X ONCE PEG Last administered on 07/13/20at 09:43; Start 07/13/20 at 09:00; Stop 07/13/20 at 09:01; Status DC Sodium Chloride 1,000 ml @ 1,000 mls/hr 1X ONCE IV Last administered on 07/13/20at 12:02; Start 07/13/20 at 12:00; Stop 07/13/20 at 12:59; Status DC Haloperidol Lactate (Haldol Inj) 2 mg 1X ONCE IVP Last administered on 07/13/20at 12:03; Start 07/13/20 at 12:00; Stop 07/13/20 at 12:01; Status DC Neomycin/ Polymyxin/ Bacitracin (Triple Antibiotic Ointment) 1 pkt BID TP Last administered on 07/20/20at 09:00; Start 07/14/20 at 15:00 Potassium Bicarbonate (Potassium Effervescent Tablet) 20 meq BID PEG Last administered on 07/20/20at 09:00; Start 07/15/20 at 14:00 Haloperidol (Haldol) 5 mg HS PEG Last administered on 07/18/20at 21:26; Start 07/17/20 at 21:00; Stop 07/19/20 at 18:43; Status DC Haloperidol (Haldol) 2.5 mg HS PEG Last administered on 07/19/20at 19:52; Start 07/19/20 at 21:00 Active Scripts Active Reported Acetaminophen-Diphenhyd 500-25 (Acetaminophen/Diphenhydramine) 1 Each Tablet 1 Each PO HS PRN Naproxen 500 Mg Tablet 1 Tab PO BID PRN 30 Days Tramadol Hcl 50 Mg Tablet 50 Mg PO Q4HRS Levothyroxine Sodium 75 Mcg Tablet 1 Tab PO DAILY Adderall 20 Mg Tablet (Dextroamphetamine/Amphetamine) 20 Mg Tablet 1 Tab PO DAILY MDD 1 Tablet(s) 5 Days Prozac (Fluoxetine Hcl) 20 Mg Capsule 1 Cap PO [id number] Vitals/I & O Vital Sign - Last 24 Hours 07/19/20 07/19/20 07/19/20 07/19/20 11:00 11:20 15:00 15:08 Temp 98.0 98.6 98.0 98.6 Pulse 76 96 Resp 16 16 B/P (MAP) 110/66 (81) 129/76 (93) Pulse Ox 94 95 95 95 O2 Delivery Room Air Room Air Room Air Room Air 07/19/20 07/19/20 07/19/20 07/19/20 17:27 19:00 19:52 19:53 Temp 97.5 97.5 Pulse 96 99 88 Resp 18 18 B/P (MAP) 122/71 147/72 (97) 130/69 Pulse Ox 93 95 O2 Delivery Room Air O2 Flow Rate 8.0 07/19/20 07/19/20 07/19/20 07/19/20 20:00 20:17 20:23 23:00 Temp 97.6 97.6 Pulse 90 Resp 18 18 B/P (MAP) 119/71 (87) Pulse Ox 92 92 94 O2 Delivery Room Air Room Air Room Air 07/20/20 07/20/20 07/20/20 07/20/20 03:00 07:00 07:04 08:59 Temp 97.7 98.7 97.7 98.7 Pulse 109 94 94 Resp 18 16 B/P (MAP) 134/93 (107) 123/73 (90) 123/73 Pulse Ox 95 94 96 O2 Delivery Room Air Room Air 07/20/20 07/20/20 08:59 09:00 Pulse 94 94 B/P (MAP) 123/73 123/73 Intake and Output 07/19/20 07/19/20 07/20/20 15:00 23:00 07:00 Intake Total 899 ml 849 ml 412 ml Output Total 50 ml 0 ml 0 ml Balance 849 ml 849 ml 412 ml Justicifation of Admission Dx: Justifications for Admission: Justification of Admission Dx: N/A MIMI FREEMAN MD Jul 20, 2020 10:25
[2020-07-20 11:00] VITALS: BP 110/78
[2020-07-20 15:00] VITALS: BP 109/66
[2020-07-20 19:00] VITALS: BP 106/49
[2020-07-20] MEDS: ENOXAPARIN 40 MG/0.4 ML SYRINGE. SQ SCH (20:04)
[2020-07-20] MEDS: FAMOTIDINE 20 MG TABLET. GT SCH (20:04)
[2020-07-20] MEDS: ATORVASTATIN CALCIUM 20 MG TABLET PO SCH (20:05)
[2020-07-20] MEDS: HALOPERIDOL 0.5 MG TABLET. PO PRN (20:06)
[2020-07-20] MEDS: diphenhydrAMINE 50 MG/ML VIAL IVP PRN (20:06)
[2020-07-20] MEDS: HALOPERIDOL 5 MG TABLET. PEG SCH (20:10)
[2020-07-20 23:00] VITALS: BP 95/59
[2020-07-21] VITALS (7 sets, daily range): BP systolic 100–125; BP diastolic 45–60
[2020-07-21] MEDS: LEVOTHYROXINE 75 MCG TABLET PO SCH (05:31)
[2020-07-21] MEDS: IPRATRPIUM/ALBUTEROL 0.5/2.5MG 3 ML NEBU. NEB SCH ×4 (07:16→20:29)
[2020-07-21] MEDS: ASPIRIN CHEWABLE 81 MG TABLET. PO SCH (08:30)
[2020-07-21] MEDS: AMIODARONE HCL 200 MG TABLET. PO SCH (08:32)
[2020-07-21] MEDS: POTASSIUM BICARB 20 MEQ EFFERVESCENT TABLET. PEG SCH ×2 (08:32→21:02)
[2020-07-21] MEDS: NEOMY/BACITR/POLYMYXIN OINT PACKET. TP SCH ×2 (08:32→21:02)
[2020-07-21] MEDS: LISINOPRIL 20 MG TABLET PO SCH ×2 (08:33→21:02)
[2020-07-21] MEDS: CARVEDILOL 3.125 MG TABLET. PO SCH ×2 (08:33→17:16)
--- NOTE | 2020-07-21 08:52 | PDOC ---
PROGRESS NOTES Date of Service: DATE: 07/21/20 TIME: 08:51 Chief Complaint Chief Complaint IMPRESSION POST covid cardiomyopathy acute systolic CHF Severe NICM: EF 25%. No significant CAD per [facility] anoxic brain injury Cardiac arrest with resuscitation and probable pneumonia, sternal fracture and pneumothorax secondary to CPR, leukocytosis, electrolyte disturbance, hypokalemia, lactic acidosis, elevated troponin. Disposition pending referrals DC Ativan, use Haldol will increase to 5 mg again since she did not sleep with decreased dose of 2.5 mg requested by the , discussed with nursing staff Trach 06/26/20, PEG on 06/27/20 Plan: Waiting for placement History of Present Illness History of Present Illness 2-6 patient seems to have had better sleep with increasing Haldol. No acute events reported overnight patient resting comfortably during my visit still waiting for placement 2-5 no new events, she did not sleep as well as the night before. 2-4 no acute events reported overnight pretty much status quo still waiting for disposition 2-3 patient resting comfortably today she fell asleep around 3:00 in the morning as per nursing staff. She received Haldol yesterday instead of Ambien, we have discussed allowing patient to sleep in the evening time and to avoid excessive stimulation during the evening hours. Awaiting for case management for an update regarding disposition 2-2 patient seems to be status quo, unfortunately is having a tough time with the loss of his partner. He understands that he cannot take care of her at home and we are awaiting for case management to provide us with a viable option moving forward 2-1 no acute events reported overnight, case discussed with nursing staff patient in no acute distress no complaints during my visit, hopefully we can start the process of discharge she will certainly need transitioning to an institution unlikely to be able to be cared for at home since she requires full- time care 07-15 trach removed d/w DR Aguiar have stopped iv ativan yesterday, SAID YES TO when asked about some remote memories 07-14 DC Ativan, use Haldol appears less agitated d/w in room Trach 06/26/20, PEG on 06/27/20 D/W IN ROOM, SHE IS NOW TRACKING AT TIMES 07/13 MOVING BOTH LEGS AND ARMS without apparent purpose, family working on placement barriers , HYPOKALEMIC, ON REPLACEMENT D/W RN, ALSO VAG CANDIDIASIS, ON MONISTAT VAG CREAM D/W RN 07/09 S/P cardiac arrest 06/17 S/P trach on 06/26 ----- S/P peg 06/27 NO PURPOSEFUL movement 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 No significant change overnight, still no purposeful movements. Sounds as though family still plans to hold off on any change in CODE STATUS or goals of care until at least 30 days after admission date. did show me some video of patient smiling and having meaningful exchange with a family friend today. 07/07. Transfer out of ICU to the medical floors. Discussed with , he feels that music is helping patient. She will occasionally check in with eyes, but no purposeful movements. Has been mentioned trying to give 30 days for admission to show any signs of meaningful improvement. At which time decision will be made about hospice in future goals of care. 07/06, will transfer to floor, no tele, off vent now for some time. discussed with , she does seem improved, she had a tiny smile to some music earlier, still not following commands or any purposeful response 07/05, about the same, discussed my previous thoughts again with and son, not following commands, movement is seeming to be mostly reflexive. they still want to cont iwth the 30 days plan to give her a chance to improve. I discussed possible transition to hospice, they want to wait until that t santhosh. 07/04-, minmal change, some relfexive movements, had a video of her withdrawing to light touch to face, soem work with PT, not following commands as directed I discussed poor prognosis with at length, that as days go by, her c hances for meaningful recovery continue to dim. I discussed consideration of hospice care. 07/03/2020, discussed plan with family at length yesterday Patient seen and examined in the ICU plan LTAC, but denied start PT and OT moving around a lot She is still not very responsive but at the same time less agitated Vitals Vitals Vital Signs Date Time Temp Pulse Resp B/P (MAP) Pulse Ox O2 Delivery O2 Flow Rate FiO2 07/21/20 08:33 60 120/60 07/21/20 07:18 96 Room Air 07/21/20 07:00 97.7 16 97.7 Physical Exam Physical Exam GENERAL: Opens eyes transiently, does not follow any commands, Moving arms and legs, not thrusting tongue HEENT: Both pupils are round and reacting. No conjunctival lesion. NECK: Supple. Trach present, erythema and drainage present around trach site improving LUNGS: Decreased breath sounds bilaterally. HEART: S1, S2, regular. No gallop or murmur. ABDOMEN: Soft, nontender. No organomegaly.peg tube + fecal tube , Jolly present EXTREMITIES: No edema or cyanosis. toe amputation of the Rt foot,healed scars SKIN: Unremarkable. NEUROLOGICAL: Opens eyes transiently does not follow any commands, LAUGHS when talking to family General: Cooperative, No acute distress Heart: Regular rate, Normal S1, Normal S2 Lungs: Clear Abdomen: Normal bowel sounds, Soft, No tenderness, No hepatosplenomegaly, No masses Extremities: No cyanosis Skin: No rashes, No breakdown Labs LABS Laboratory Tests Test 07/20/20 11:57 07/20/20 16:53 07/20/20 20:21 07/21/20 07:25 Glucose (Fingerstick) 130 mg/dL (70-99) 100 mg/dL (70-99) 95 mg/dL (70-99) 108 mg/dL (70-99) Assessment and Plan Assessmemt and Plan Problems Medical Problems: (1) Cardiac arrest Status: Acute (2) Fracture of ribs, multiple Status: Acute (3) Hyperglycemia Status: Acute (4) Pneumonia Status: Acute (5) Pneumothorax, right Status: Acute (6) Sternal fracture Status: Acute (7) VF (ventricular fibrillation) Status: Acute Comment Review of Relevant I have reviewed the following items afua (where applicable) has been applied. Labs Laboratory Tests Test 07/19/20 12:19 07/19/20 17:28 07/19/20 21:40 07/20/20 07:58 Glucose (Fingerstick) 133 mg/dL (70-99) 102 mg/dL (70-99) 100 mg/dL (70-99) 111 mg/dL (70-99) Test 07/20/20 11:57 07/20/20 16:53 07/20/20 20:21 07/21/20 07:25 Glucose (Fingerstick) 130 mg/dL (70-99) 100 mg/dL (70-99) 95 mg/dL (70-99) 108 mg/dL (70-99) Laboratory Tests Test 07/20/20 11:57 07/20/20 16:53 07/20/20 20:21 07/21/20 07:25 Glucose (Fingerstick) 130 mg/dL (70-99) 100 mg/dL (70-99) 95 mg/dL (70-99) 108 mg/dL (70-99) Microbiology 07/10/20 Urine Culture - Final, Complete 06/30/20 Gram Stain - Final, Complete 06/30/20 Aerobic and Anaerobic Culture - Final, Complete 06/17/20 Blood Culture - Final, Complete NO GROWTH AFTER 5 DAYS Medications Current Medications Amiodarone HCl 150 mg/Dextrose 103 ml @ 618 mls/hr 1X ONCE IV Last administered on 06/17/20at 07:00; Start 06/17/20 at 07:00; Stop 06/17/20 at 07:09; Status DC Amiodarone HCl 450 mg/Dextrose 259 ml @ 33 mls/hr 1X ONCE IV ; Start 06/17/20 at 07:00; Stop 06/17/20 at 14:50; Status DC Sodium Chloride 1,000 ml @ 1,000 mls/hr 1X ONCE IV Last administered on 06/17/20at 08:11; Start 06/17/20 at 07:15; Stop 06/17/20 at 08:14; Status DC Midazolam HCl 100 ml @ 0 mls/hr 1X ONCE IV ; Start 06/17/20 at 07:15; Stop 06/17/20 at 07:16; Status DC Midazolam HCl (Versed) 5 mg STK-MED ONCE .ROUTE ; Start 06/17/20 at 07:17; Stop 06/17/20 at 07:17; Status DC Iohexol (Omnipaque 300 Mg/ml) 75 ml 1X ONCE IV Last administered on 06/17/20at 08:17; Start 06/17/20 at 08:15; Stop 06/17/20 at 08:16; Status DC Iohexol (Omnipaque 350 Mg/ml) 100 ml 1X ONCE IV Last administered on 06/17/20at 08:17; Start 06/17/20 at 08:15; Stop 06/17/20 at 08:16; Status DC Info (CONTRAST GIVEN -- Rx MONITORING) 1 each PRN DAILY PRN MC SEE COMMENTS; Start 06/17/20 at 08:15; Stop 06/19/20 at 08:14; Status DC Sodium Chloride 1,000 ml @ 1,000 mls/hr 1X ONCE IV Last administered on 06/17/20at 08:25; Start 06/17/20 at 08:15; Stop 06/17/20 at 09:14; Status DC Potassium Chloride/Water 100 ml @ 50 mls/hr 1X ONCE IV Last administered on 06/17/20at 10:16; Start 06/17/20 at 09:00; Stop 06/17/20 at 10:59; Status DC Piperacillin Sod/ Tazobactam Sod (Zosyn Per Pharmacy) 1 each PRN DAILY PRN MC SEE COMMENTS; Start 06/17/20 at 08:45; Stop 06/27/20 at 11:36; Status DC Piperacillin Sod/ Tazobactam Sod 4.5 gm/Sodium Chloride 100 ml @ 200 mls/hr 1X ONCE IV Last administered on 06/17/20at 10:15; Start 06/17/20 at 08:45; Stop 06/17/20 at 09:14; Status DC Sodium Chloride 1,000 ml @ 125 mls/hr Q8H IV Last administered on 06/17/20at 23:39; Start 06/17/20 at 09:00; Stop 06/18/20 at 08:59; Status DC Propofol (Diprivan) 200 mg 1X ONCE IV Last administered on 06/17/20at 09:00; Start 06/17/20 at 09:00; Stop 06/17/20 at 09:01; Status DC Propofol 100 ml @ As Directed STK-MED ONCE IV ; Start 06/17/20 at 09:05; Stop 06/17/20 at 09:05; Status DC Lidocaine HCl (Lidocaine 1% 20ml Vial) 20 ml 1X ONCE INJ Last administered on 06/17/20at 09:15; Start 06/17/20 at 09:15; Stop 06/17/20 at 09:20; Status DC Lidocaine HCl (Xylocaine-Mpf 1% 5ml Vial) 5 ml STK-MED ONCE .ROUTE ; Start 06/17/20 at 09:26; Stop 06/17/20 at 09:26; Status DC Sodium Chloride 1,000 ml @ 1,000 mls/hr 1X ONCE IV Last administered on 06/17/20at 10:15; Start 06/17/20 at 10:15; Stop 06/17/20 at 11:14; Status DC Propofol 100 ml @ 3.819 mls/ hr CONT PRN IV PER PROTOCOL Last administered on 06/25/20at 06:12; Start 06/17/20 at 10:45; Stop 06/29/20 at 11:47; Status DC Fentanyl Citrate (Fentanyl 2ml Vial) 100 mcg 1X ONCE IV ; Start 06/17/20 at 12:00; Stop 06/17/20 at 12:39; Status DC Midazolam HCl (Versed) 2 mg 1X ONCE IV ; Start 06/17/20 at 12:00; Stop 06/17/20 at 12:39; Status DC Magnesium Sulfate/ Dextrose 100 ml @ 100 mls/hr 1X ONCE IV Last administered on 06/17/20at 12:22; Start 06/17/20 at 12:00; Stop 06/17/20 at 12:39; Status DC Buspirone HCl (Buspar) 30 mg Q8H NG Last administered on 06/17/20at 12:31; Start 06/17/20 at 12:00; Stop 06/17/20 at 12:39; Status DC Glycerin/ Hypromellose/ Polyethylene (Artificial Tears) 1 drop Q6HRS OU ; Start 06/17/20 at 12:00; Stop 06/17/20 at 12:39; Status DC Glycerin/ Hypromellose/ Polyethylene (Artificial Tears) 1 drop PRN Q15MIN PRN OU DRY EYE; Start 06/17/20 at 12:00; Stop 06/17/20 at 12:39; Status DC Heparin Sodium (Porcine) (Heparin Sodium) 5,000 unit BID SQ ; Start 06/17/20 at 21:00; Stop 06/17/20 at 12:39; Status DC Pantoprazole Sodium (PROTONIX VIAL for IV PUSH) 40 mg DAILY IVP ; Start 06/18/20 at 09:00; Stop 06/17/20 at 12:39; Status DC Fentanyl Citrate 30 ml @ 0 mls/hr CONT PRN IV PER PROTOCOL.; Start 06/17/20 at 12:00; Stop 06/17/20 at 12:39; Status DC Propofol 100 ml @ 0 mls/hr CONT PRN IV PER PROTOCOL.; Start 06/17/20 at 12:00; Stop 06/17/20 at 12:39; Status DC Midazolam HCl 100 ml @ 0 mls/hr CONT PRN IV PER PROTOCOL; Start 06/17/20 at 12:00; Stop 06/17/20 at 12:39; Status DC Vecuronium [place] (Norcuron Bolus) 10 mg PRN Q1HR PRN IV SHIVERING; Start 06/17/20 at 12:00; Stop 06/17/20 at 12:39; Status DC Piperacillin Sod/ Tazobactam Sod 4.5 gm/Sodium Chloride 100 ml @ 200 mls/hr 1X ONCE IV ; Start 06/17/20 at 12:15; Stop 06/17/20 at 12:44; Status Cancel Midazolam HCl (Versed) 5 mg Q1HR PRN IV SEDATION Last administered on 06/29/20at 13:48; Start 06/17/20 at 12:45; Stop 07/08/20 at 12:59; Status DC Fentanyl Citrate (Fentanyl 2ml Vial) 100 mcg Q1HR IVP Last administered on 06/17/20at 18:55; Start 06/17/20 at 13:00; Stop 06/17/20 at 23:41; Status DC Piperacillin Sod/ Tazobactam Sod 3.375 gm/Sodium Chloride 50 ml @ 100 mls/hr Q6H IV Last administered on 06/27/20at 05:31; Start 06/17/20 at 16:00; Stop 06/27/20 at 11:30; Status DC Potassium Bicarbonate (Potassium Effervescent Tablet) 40 meq 1X ONCE NG Last administered on 06/18/20at 10:00; Start 06/18/20 at 09:45; Stop 06/18/20 at 09:48; Status DC Albuterol/ Ipratropium (Duoneb) 3 ml RTQID NEB Last administered on 07/21/20at 07:16; Start 06/18/20 at 20:00 Famotidine (Pepcid Vial) 20 mg BID IVP Last administered on 07/02/20at 08:05; Start 06/18/20 at 21:00; Stop 07/02/20 at 10:23; Status DC Enoxaparin Sodium (Lovenox 40mg Syringe) 40 mg Q24H SQ Last administered on 07/20/20 20:04; Start 06/18/20 at 21:00 Levothyroxine Sodium (Synthroid) 75 mcg DAILY06 PO Last administered on 07/21/20 05:31; Start 06/18/20 at 21:00 Fentanyl Citrate 30 ml @ 0 mls/hr CONT PRN IV SEE PROTOCOL Last administered on 06/28/20 04:56; Start 06/18/20 at 20:15; Stop 06/29/20 at 11:47; Status DC Carvedilol (Coreg) 3.125 mg BIDWMEALS PO Last administered on 07/21/20 08:33; Start 06/19/20 at 17:00 Atorvastatin Calcium (Lipitor) 20 mg QHS PO Last administered on 07/20/20at 20:05; Start 06/19/20 at 21:00 Aspirin (Aspirin Chewable) 81 mg DAILYWBKFT PO Last administered on 07/21/20 08:30; Start 06/20/20 at 08:00 Aspirin (Aspirin Chewable) 81 mg 1X ONCE PO Last administered on 06/19/20at 15:57; Start 06/19/20 at 15:30; Stop 06/19/20 at 15:37; Status DC Potassium Chloride/Water 100 ml @ 100 mls/hr 1X ONCE IV Last administered on 06/19/20at 15:57; Start 06/19/20 at 15:30; Stop 06/19/20 at 16:29; Status DC Amiodarone HCl (Cordarone) 400 mg DAILY PO Last administered on 07/21/20 08:32; Start 06/20/20 at 09:00 Furosemide (Lasix) 40 mg 1X ONCE IVP Last administered on 06/20/20at 14:38; S tart 06/20/20 at 13:30; Stop 06/20/20 at 13:31; Status DC Potassium Chloride/Water 100 ml @ 100 mls/hr 1X ONCE IV Last administered on 06/20/20at 14:39; Start 06/20/20 at 13:30; Stop 06/20/20 at 14:29; Status DC Dexmedetomidine HCl 400 mcg/ Sodium Chloride 100 ml @ 0 mls/hr CONT PRN IV PER PROTOCOL Last administered on 06/29/20at 06:11; Start 06/21/20 at 10:45; Stop 06/29/20 at 11:47; Status DC Sodium Chloride 500 ml @ 500 mls/hr 1X PRN PRN IV SEE COMMENTS; Start 06/21/20 at 10:45 Atropine Sulfate (ATROPINE 0.5mg SYRINGE) 0.5 mg PRN Q5MIN PRN IV SEE COMMENTS; Start 06/21/20 at 10:45; Stop 06/29/20 at 11:47; Status DC Fentanyl Citrate (Fentanyl 2ml Vial) 50 mcg PRN Q2HR PRN IVP PAIN Last administered on 07/19/20at 19:53; Start 06/23/20 at 16:45 Midazolam HCl 100 ml @ 0 mls/hr CONT PRN IV SEE PROTOCOL Last administered on 06/28/20at 03:00; Start 06/25/20 at 11:45; Stop 06/29/20 at 11:47; Status DC Lidocaine HCl (Xylocaine-Mpf 1% 2ml Vial) 2 ml STK-MED ONCE .ROUTE ; Start 06/25/20 at 14:21; Stop 06/25/20 at 14:21; Status DC Iohexol (Omnipaque 300 Mg/ml) 100 ml STK-MED ONCE .ROUTE ; Start 06/25/20 at 14:21; Stop 06/25/20 at 14:21; Status DC Heparin Sodium/ Sodium Chloride 1,000 ml @ As Directed STK-MED ONCE .ROUTE ; Start 06/25/20 at 14:21; Stop 06/25/20 at 14:21; Status DC Heparin Sodium (Porcine) (Heparin Sodium) 10,000 unit STK-MED ONCE .ROUTE ; Start 06/25/20 at 14:31; Stop 06/25/20 at 14:31; Status DC Verapamil HCl (Verapamil) 5 mg STK-MED ONCE .ROUTE ; Start 06/25/20 at 14:31; Stop 06/25/20 at 14:31; Status DC Nitroglycerin (Nitroglycerin) 200 mcg STK-MED ONCE .ROUTE ; Start 06/25/20 at 14:31; Stop 06/25/20 at 14:31; Status DC Nitroglycerin (Nitroglycerin) 200 mcg 1X ONCE IART Last administered on 06/25/20at 15:09; Start 06/25/20 at 15:15; Stop 06/25/20 at 15:16; Status DC Verapamil HCl (Verapamil) 2.5 mg 1X ONCE IART Last administered on 06/25/20at 15:09; Start 06/25/20 at 15:15; Stop 06/25/20 at 15:16; Status DC Heparin Sodium (Porcine) (Heparin Sodium) 2,500 unit 1X ONCE IART Last administered on 06/25/20at 15:09; Start 06/25/20 at 15:15; Stop 06/25/20 at 15:16; Status DC Heparin Sodium/ Sodium Chloride (HEPARIN for ARTERIAL LINE FLUSH) 1,000 unit 1X ONCE IART Last administered on 06/25/20at 15:09; Start 06/25/20 at 15:15; Stop 06/25/20 at 15:16; Status DC Iohexol (Omnipaque 300 Mg/ml) 30 ml 1X ONCE IART Last administered on 06/25/20at 15:09; Start 06/25/20 at 15:15; Stop 06/25/20 at 15:16; Status DC Lidocaine HCl (Xylocaine-Mpf 1% 2ml Vial) 2 ml 1X ONCE INJ Last administered on 06/25/20at 15:09; Start 06/25/20 at 15:15; Stop 06/25/20 at 15:16; Status DC Amino Acids/ Glycerin/ Electrolytes 1,000 ml @ 80 mls/hr [id number] IV Last administered on 06/27/20at 20:50; Start 06/25/20 at 17:30; Stop 06/28/20 at 11:35; Status DC Potassium Chloride/Water 100 ml @ 100 mls/hr Q1H IV Last administered on 06/25/20at 18:46; Start 06/25/20 at 18:00; Stop 06/25/20 at 19:59; Status DC Rocuronium [place] (Zemuron) 50 mg STK-MED ONCE .ROUTE ; Start 06/26/20 at 11:37; Stop 06/26/20 at 11:38; Status DC Cellulose (Surgicel Fibrillar 1x2) 1 each STK-MED ONCE .ROUTE Last administered on 06/26/20at 13:20; Start 06/26/20 at 12:19; Stop 06/26/20 at 12:19; Status DC Bupivacaine HCl (Sensorcaine Mpf 0.5%) 30 ml STK-MED ONCE .ROUTE ; Start 06/26/20 at 12:19; Stop 06/26/20 at 12:19; Status DC Ondansetron HCl (Zofran) 4 mg STK-MED ONCE .ROUTE ; Start 06/26/20 at 13:13; Stop 06/26/20 at 13:13; Status DC Dexamethasone Sodium Phosphate (Decadron) 4 mg STK-MED ONCE .ROUTE ; Start 06/26/20 at 13:13; Stop 06/26/20 at 13:14; Status DC Cellulose (Surgicel Fibrillar 1x2) 1 each STK-MED ONCE .ROUTE Last administered on 06/26/20at 13:22; Start 06/26/20 at 13:25; Stop 06/26/20 at 13:25; Status DC Sevoflurane (Ultane) 30 ml STK-MED ONCE IH ; Start 06/26/20 at 13:37; Stop 06/26/20 at 13:38; Status DC Propofol (Diprivan) 200 mg STK-MED ONCE IV ; Start 06/26/20 at 13:38; Stop 06/26/20 at 13:38; Status DC Ringer's Solution 1,000 ml @ 30 mls/hr Q24H IV Last administered on 06/27/20at 08:39; Start 06/27/20 at 07:00; Stop 06/27/20 at 18:59; Status DC Prochlorperazine Edisylate (Compazine) 5 mg PACU PRN PRN IV NAUSEA, MRX1; Start 06/27/20 at 07:00; Stop 06/28/20 at 06:59; Status DC Propofol (Diprivan) 200 mg STK-MED ONCE IV ; Start 06/27/20 at 09:53; Stop 06/27/20 at 09:54; Status DC Lidocaine HCl (Lidocaine Pf 2% Vial) 5 ml STK-MED ONCE .ROUTE ; Start 06/27/20 at 09:54; Stop 06/27/20 at 09:54; Status DC Lisinopril (Prinivil) 5 mg DAILY PO Last administered on 07/04/20at 09:23; Start 06/29/20 at 09:00; Stop 07/04/20 at 14:46; Status DC Acetaminophen/ Hydrocodone Bitart (Lortab 7.5-325/ 15ml Oral Solution) 10 ml 1X ONCE PEG Last administered on 06/28/20at 12:37; Start 06/28/20 at 12:30; Stop 06/28/20 at 12:31; Status DC Piperacillin Sod/ Tazobactam Sod 3.375 gm/Sodium Chloride 50 ml @ 100 mls/hr Q6HRS IV Last administered on 07/07/20at 06:11; Start 06/29/20 at 10:00; Stop 07/07/20 at 09:51; Status DC Vecuronium [place] (Norcuron Bolus) 10 mg STK-MED ONCE IV ; Start 06/29/20 at 14:31; Stop 06/29/20 at 14:31; Status DC Propofol 100 ml @ 0 mls/hr CONT PRN IV PER PROTOCOL Last administered on 07/02/20at 07:26; Start 06/29/20 at 16:30; Stop 07/08/20 at 12:58; Status DC Vecuronium [place] (Norcuron Bolus) 10 mg 1X ONCE IV Last administered on 06/29/20at 14:31; Start 06/29/20 at 14:31; Stop 06/29/20 at 17:19; Status DC Daptomycin 400 mg/ Sodium Chloride 50 ml @ 100 mls/hr Q24H IV Last administered on 07/04/20at 09:25; Start 06/30/20 at 10:00; Stop 07/05/20 at 08:14; Status DC Famotidine (Pepcid) 20 mg QHS GT Last administered on 07/20/20at 20:04; Start 07/02/20 at 21:00 Haloperidol Lactate (Haldol Inj) 5 mg Q8HRS IVP Last administered on 07/03/20at 06:00; Start 07/02/20 at 14:00; Stop 07/03/20 at 12:40; Status DC Micafungin Sodium 100 mg/Dextrose 100 ml @ 100 mls/hr Q24H IV Last administe red on 07/05/20at 08:04; Start 07/03/20 at 09:00; Stop 07/05/20 at 08:14; Status DC Alteplase, Recombinant (Cathflo For Central Catheter Clearance) 1 mg 1X ONCE INT CAT Last administered on 07/03/20at 08:45; Start 07/03/20 at 08:45; Stop 07/03/20 at 08:46; Status DC Haloperidol Lactate (Haldol Inj) 2.5 mg PRN Q6HRS PRN IVP AGITATION; Start 07/03/20 at 12:30; Stop 07/03/20 at 12:40; Status DC Haloperidol Lactate (Haldol Inj) 2.5 mg PRN Q6HRS PRN IVP AGITATION Last administered on 07/04/20at 01:04; Start 07/03/20 at 14:00; Stop 07/04/20 at 08:04; Status DC Haloperidol Lactate (Haldol Inj) 2.5 mg Q8HRS IVP ; Start 07/04/20 at 10:00; Stop 07/04/20 at 08:15; Status DC Haloperidol Lactate (Haldol Inj) 2.5 mg PRN Q8HRS PRN IVP AGITATION; Start 07/04/20 at 08:15; Stop 07/05/20 at 10:35; Status DC Lisinopril (Prinivil) 20 mg BID PO Last administered on 07/21/20at 08:33; Start 07/04/20 at 21:00 Haloperidol (Haldol) 0.5 mg PRN Q8HRS PRN PO AGITATION-2ND CHOICE Last administered on 07/12/20at 16:13; Start 07/05/20 at 10:45 Acetaminophen (Tylenol) 650 mg PRN Q6HRS PRN PO MILD PAIN / TEMP > 100.3'F Last administered on 07/09/20at 21:20; Start 07/06/20 at 13:30 Amoxicillin/ Clavulanate Potassium (Augmentin 875/ 125mg) 1 tab BID PO Last administered on 07/11/20at 19:59; Start 07/07/20 at 21:00; Stop 07/12/20 at 09:57; Status DC Diphenhydramine HCl (Benadryl Oral Elixir) 25 mg PRN Q6HRS PRN PEG ITCHING Last administered on 07/11/20at 19:52; Start 07/10/20 at 19:15 Lorazepam (Ativan Inj) 1 mg PRN Q6HRS PRN IVP ANXIETY / AGITATION Last administered on 07/11/20at 05:21; Start 07/11/20 at 05:15; Stop 07/11/20 at 09:07; Status DC Zolpidem Tartrate (Ambien) 2.5 mg HS PO Last administered on 07/11/20at 19:52; Start 07/11/20 at 21:00; Stop 07/12/20 at 09:57; Status DC Diphenhydramine HCl (Benadryl) 50 mg PRN Q6HRS PRN IVP itching/insomina Last administered on 07/20/20at 20:06; Start 07/12/20 at 01:00 Haloperidol Lactate (Haldol Inj) 5 mg PRN Q6HRS PRN IVP AGITATION Last administered on 07/14/20at 00:49; Start 07/12/20 at 01:00 Zolpidem Tartrate (Ambien) 5 mg HS PO Last administered on 07/14/20at 21:28; Start 07/12/20 at 21:00; Stop 07/15/20 at 10:51; Status DC Lorazepam (Ativan) 1 mg PRN Q6HRS PRN PO ANXIETY / AGITATION Last administered on 07/13/20at 01:45; Start 07/12/20 at 10:00; Stop 07/14/20 at 10:49; Status DC Fluconazole (Diflucan) 150 mg 1X ONCE PO ; Start 07/12/20 at 16:30; Stop 07/12/20 at 16:31; Status Cancel Clotrimazole (Mycelex-7) 1 reji HS VG Last administered on 07/18/20at 21:29; Start 07/12/20 at 21:00; Stop 07/19/20 at 20:59; Status DC Potassium Bicarbonate (Potassium Effervescent Tablet) 30 meq 1X ONCE PEG Last administered on 07/13/20at 09:43; Start 07/13/20 at 09:00; Stop 07/13/20 at 09:01; Status DC Sodium Chloride 1,000 ml @ 1,000 mls/hr 1X ONCE IV Last administered on 07/13/20at 12:02; Start 07/13/20 at 12:00; Stop 07/13/20 at 12:59; Status DC Haloperidol Lactate (Haldol Inj) 2 mg 1X ONCE IVP Last administered on 07/13/20at 12:03; Start 07/13/20 at 12:00; Stop 07/13/20 at 12:01; Status DC Neomycin/ Polymyxin/ Bacitracin (Triple Antibiotic Ointment) 1 pkt BID TP Last administered on 07/21/20 08:32; Start 07/14/20 at 15:00 Potassium Bicarbonate (Potassium Effervescent Tablet) 20 meq BID PEG Last administered on 07/21/20at 08:32; Start 07/15/20 at 14:00 Haloperidol (Haldol) 5 mg HS PEG Last administered on 07/18/20at 21:26; Start 07/17/20 at 21:00; Stop 07/19/20 at 18:43; Status DC Haloperidol (Haldol) 2.5 mg HS PEG Last administered on 07/20/20at 20:10; Start 07/19/20 at 21:00 Active Scripts Active Reported Acetaminophen-Diphenhyd 500-25 (Acetaminophen/Diphenhydramine) 1 Each Tablet 1 Each PO HS PRN Naproxen 500 Mg Tablet 1 Tab PO BID PRN 30 Days Tramadol Hcl 50 Mg Tablet 50 Mg PO Q4HRS Levothyroxine Sodium 75 Mcg Tablet 1 Tab PO DAILY Adderall 20 Mg Tablet (Dextroamphetamine/Amphetamine) 20 Mg Tablet 1 Tab PO DAILY MDD 1 Tablet(s) 5 Days Prozac (Fluoxetine Hcl) 20 Mg Capsule 1 Cap PO [id number] Vitals/I & O Vital Sign - Last 24 Hours 07/20/20 07/20/20 07/20/20 07/20/20 08:59 08:59 09:00 11:00 Temp 98.5 98.5 Pulse 94 94 94 109 Resp 16 B/P (MAP) 123/73 123/73 123/73 110/78 (89) Pulse Ox 96 O2 Delivery Room Air 07/20/20 07/20/20 07/20/20 07/20/20 11:12 15:00 15:17 16:49 Temp 99.1 99.1 Pulse 93 76 Resp 16 B/P (MAP) 109/66 (80) 109/60 Pulse Ox 98 99 O2 Delivery Room Air Room Air Room Air 07/20/20 07/20/20 07/20/20 07/20/20 19:00 19:49 20:00 20:05 Temp 97.9 97.9 Pulse 87 87 Resp 16 B/P (MAP) 106/49 (68) 106/49 Pulse Ox 100 O2 Delivery Room Air Room Air Room Air 07/20/20 07/21/20 07/21/20 07/21/20 23:00 03:00 07:00 07:18 Temp 97.6 97.4 97.7 97.6 97.4 97.7 Pulse 75 72 60 Resp 18 18 16 B/P (MAP) 95/59 (71) 104/59 (74) 120/60 (80) Pulse Ox 95 96 96 96 O2 Delivery Room Air Room Air Room Air Room Air 07/21/20 07/21/20 07/21/20 08:32 08:33 08:33 Pulse 60 60 60 B/P (MAP) 120/60 120/60 120/60 Intake and Output 07/20/20 07/20/20 07/21/20 15:00 23:00 07:00 Intake Total 899 ml 874 ml 412 ml Output Total 0 ml 0 ml Balance 899 ml 874 ml 412 ml Justicifation of Admission Dx: Justifications for Admission: Justification of Admission Dx: N/A MIMI FREEMAN MD Jul 21, 2020 08:52
[2020-07-21] MEDS: FAMOTIDINE 20 MG TABLET. GT SCH (21:02)
[2020-07-21] MEDS: ATORVASTATIN CALCIUM 20 MG TABLET PO SCH (21:02)
[2020-07-21] MEDS: HALOPERIDOL 5 MG TABLET. PEG SCH (21:02)
[2020-07-21] MEDS: ENOXAPARIN 40 MG/0.4 ML SYRINGE. SQ SCH (21:03)
[2020-07-22 03:05] VITALS: BP 134/61
[2020-07-22] MEDS: LEVOTHYROXINE 75 MCG TABLET PO SCH (05:39)
[2020-07-22 07:00] VITALS: BP 122/63
[2020-07-22] MEDS: IPRATRPIUM/ALBUTEROL 0.5/2.5MG 3 ML NEBU. NEB SCH ×4 (07:49→19:50)
[2020-07-22] MEDS: NEOMY/BACITR/POLYMYXIN OINT PACKET. TP SCH ×2 (08:53→20:57)
[2020-07-22] MEDS: ACETAMINOPHEN 325 MG TABLET. PO PRN ×2 (08:53→20:48)
[2020-07-22] MEDS: CARVEDILOL 3.125 MG TABLET. PO SCH ×2 (08:53→17:14)
[2020-07-22] MEDS: ASPIRIN CHEWABLE 81 MG TABLET. PO SCH (08:53)
[2020-07-22] MEDS: LISINOPRIL 20 MG TABLET PO SCH ×2 (08:53→20:49)
[2020-07-22] MEDS: AMIODARONE HCL 200 MG TABLET. PO SCH (08:54)
[2020-07-22] MEDS: POTASSIUM BICARB 20 MEQ EFFERVESCENT TABLET. PEG SCH ×2 (08:54→20:49)
[2020-07-22 11:00] VITALS: BP 114/76
--- NOTE | 2020-07-22 12:23 | PDOC ---
PROGRESS NOTES Date of Service: DATE: 07/22/20 TIME: 12:02 Chief Complaint Chief Complaint IMPRESSION POST covid cardiomyopathy acute systolic CHF Severe NICM: EF 25%. No significant CAD per [facility] anoxic brain injury Cardiac arrest with resuscitation and probable pneumonia, sternal fracture and pneumothorax secondary to CPR, leukocytosis, electrolyte disturbance, hypokalemia, lactic acidosis, elevated troponin. Disposition pending referrals DC Ativan, use Haldol will increase to 5 mg again since she did not sleep with decreased dose of 2.5 mg requested by the , discussed with nursing staff Trach 06/26/20, PEG on 06/27/20 Plan: Waiting for placement History of Present Illness History of Present Illness 2-7 no acute events reported overnight, case discussed with nursing staff patient in no acute distress no complaints during my visit 2-6 patient seems to have had better sleep with increasing Haldol. No acute events reported overnight patient resting comfortably during my visit still waiting for placement 2-5 no new events, she did not sleep as well as the night before. 2-4 no acute events reported overnight pretty much status quo still waiting for disposition 2-3 patient resting comfortably today she fell asleep around 3:00 in the morning as per nursing staff. She received Haldol yesterday instead of Ambien, we have discussed allowing patient to sleep in the evening time and to avoid excessive stimulation during the evening hours. Awaiting for case management for an update regarding disposition 2-2 patient seems to be status quo, unfortunately is having a tough time with the loss of his partner. He understands that he cannot take care of her at home and we are awaiting for case management to provide us with a viable option moving forward 2-1 no acute events reported overnight, case discussed with nursing staff patient in no acute distress no complaints during my visit, hopefully we can start the process of discharge she will certainly need transitioning to an institution unlikely to be able to be cared for at home since she requires full- time care 1- trach removed d/w DR Aguiar have stopped iv ativan yesterday, SAID YES TO when asked about some remote memories 1- DC Ativan, use Haldol appears less agitated d/w in room Trach 06/26/20, PEG on 06/27/20 D/W IN ROOM, SHE IS NOW TRACKING AT TIMES 07/13 MOVING BOTH LEGS AND ARMS without apparent purpose, family working on placement barriers , HYPOKALEMIC, ON REPLACEMENT D/W RN, ALSO VAG CANDIDIASIS, ON MONISTAT VAG CREAM D/W RN 07/09 S/P cardiac arrest 06/17 S/P trach on 06/26 ----- S/P peg 06/27 NO PURPOSEFUL movement 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 No significant change overnight, still no purposeful movements. Sounds as though family still plans to hold off on any change in CODE STATUS or goals of care until at least 30 days after admission date. did show me some video of patient smiling and having meaningful exchange with a family friend today. 07/07. Transfer out of ICU to the medical floors. Discussed with , he feels that music is helping patient. She will occasionally check in with eyes, but no purposeful movements. Has been mentioned trying to give 30 days for admission to show any signs of meaningful improvement. At which time decision will be made about hospice in future goals of care. 07/06, will transfer to floor, no tele, off vent now for some time. discussed with , she does seem improved, she had a tiny smile to some music earlier, still not following commands or any purposeful response 07/05, about the same, discussed my previous thoughts again with and son, not following commands, movement is seeming to be mostly reflexive. they still want to cont iwth the 30 days plan to give her a chance to improve. I discussed possible transition to hospice, they want to wait until that time. 07/04-, minmal change, some relfexive movements, had a video of her withdrawing to light touch to face, soem work with PT, not following commands as directed I discussed poor prognosis with at length, that as days go by, her chances for meaningful recovery continue to dim. I discussed consideration of hospice care. 07/03/2020, discussed plan with family at length yesterday Patient seen and examined in the ICU plan LTAC, but denied start PT and OT moving around a lot She is still not very responsive but at the same time less agitated Vitals Vitals Vital Signs Date Time Temp Pulse Resp B/P (MAP) Pulse Ox O2 Delivery O2 Flow Rate FiO2 07/22/20 11:23 94 Room Air 07/22/20 11:00 97.7 86 18 114/76 (89) 97.7 07/21/20 23:05 8.0 Physical Exam Physical Exam GENERAL: Opens eyes transiently, does not follow any commands, Moving arms and legs, not thrusting tongue HEENT: Both pupils are round and reacting. No conjunctival lesion. NECK: Supple. Trach present, erythema and drainage present around trach site improving LUNGS: Decreased breath sounds bilaterally. HEART: S1, S2, regular. No gallop or murmur. ABDOMEN: Soft, nontender. No organomegaly.peg tube + fecal tube , Jolly present EXTREMITIES: No edema or cyanosis. toe amputation of the Rt foot,healed scars SKIN: Unremarkable. NEUROLOGICAL: Opens eyes transiently does not follow any commands, LAUGHS when talking to family General: Cooperative, No acute distress Heart: Regular rate, Normal S1, Normal S2 Lungs: Clear Abdomen: Normal bowel sounds, Soft, No tenderness, No hepatosplenomegaly, No masses Extremities: No cyanosis Skin: No rashes, No breakdown Labs LABS Laboratory Tests Test 07/21/20 16:46 07/21/20 20:28 07/22/20 07:25 07/22/20 10:42 Glucose (Fingerstick) 100 mg/dL (70-99) 94 mg/dL (70-99) 122 mg/dL (70-99) 153 mg/dL (70-99) Assessment and Plan Assessmemt and Plan Problems Medical Problems: (1) Cardiac arrest Status: Acute (2) Fracture of ribs, multiple Status: Acute (3) Hyperglycemia Status: Acute (4) Pneumonia Status: Acute (5) Pneumothorax, right Status: Acute (6) Sternal fracture Status: Acute (7) VF (ventricular fibrillation) Status: Acute Comment Review of Relevant I have reviewed the following items afua (where applicable) has been applied. Labs Laboratory Tests Test 07/20/20 16:53 07/20/20 20:21 07/21/20 07:25 07/21/20 10:35 Glucose (Fingerstick) 100 mg/dL (70-99) 95 mg/dL (70-99) 108 mg/dL (70-99) 132 mg/dL (70-99) Test 07/21/20 16:46 07/21/20 20:28 07/22/20 07:25 07/22/20 10:42 Glucose (Fingerstick) 100 mg/dL (70-99) 94 mg/dL (70-99) 122 mg/dL (70-99) 153 mg/dL (70-99) Laboratory Tests Test 07/21/20 16:46 07/21/20 20:28 07/22/20 07:25 07/22/20 10:42 Glucose (Fingerstick) 100 mg/dL (70-99) 94 mg/dL (70-99) 122 mg/dL (70-99) 153 mg/dL (70-99) Microbiology 07/10/20 Urine Culture - Final, Complete 06/30/20 Gram Stain - Final, Complete 06/30/20 Aerobic and Anaerobic Culture - Final, Complete 06/17/20 Blood Culture - Final, Complete NO GROWTH AFTER 5 DAYS Medications Current Medications Amiodarone HCl 150 mg/Dextrose 103 ml @ 618 mls/hr 1X ONCE IV Last administered on 06/17/20at 07:00; Start 06/17/20 at 07:00; Stop 06/17/20 at 07:09; Status DC Amiodarone HCl 450 mg/Dextrose 259 ml @ 33 mls/hr 1X ONCE IV ; Start 06/17/20 at 07:00; Stop 06/17/20 at 14:50; Status DC Sodium Chloride 1,000 ml @ 1,000 mls/hr 1X ONCE IV Last administered on 06/17/20at 08:11; Start 06/17/20 at 07:15; Stop 06/17/20 at 08:14; Status DC Midazolam HCl 100 ml @ 0 mls/hr 1X ONCE IV ; Start 06/17/20 at 07:15; Stop 06/17/20 at 07:16; Status DC Midazolam HCl (Versed) 5 mg STK-MED ONCE .ROUTE ; Start 06/17/20 at 07:17; Stop 06/17/20 at 07:17; Status DC Iohexol (Omnipaque 300 Mg/ml) 75 ml 1X ONCE IV Last administered on 06/17/20at 08:17; Start 06/17/20 at 08:15; Stop 06/17/20 at 08:16; Status DC Iohexol (Omnipaque 350 Mg/ml) 100 ml 1X ONCE IV Last administered on 06/17/20at 08:17; Start 06/17/20 at 08:15; Stop 06/17/20 at 08:16; Status DC Info (CONTRAST GIVEN -- Rx MONITORING) 1 each PRN DAILY PRN MC SEE COMMENTS; Start 06/17/20 at 08:15; Stop 06/19/20 at 08:14; Status DC Sodium Chloride 1,000 ml @ 1,000 mls/hr 1X ONCE IV Last administered on 06/17/20at 08:25; Start 06/17/20 at 08:15; Stop 06/17/20 at 09:14; Status DC Potassium Chloride/Water 100 ml @ 50 mls/hr 1X ONCE IV Last administered on 06/17/20at 10:16; Start 06/17/20 at 09:00; Stop 06/17/20 at 10:59; Status DC Piperacillin Sod/ Tazobactam Sod (Zosyn Per Pharmacy) 1 each PRN DAILY PRN MC SEE COMMENTS; Start 06/17/20 at 08:45; Stop 06/27/20 at 11:36; Status DC Piperacillin Sod/ Tazobactam Sod 4.5 gm/Sodium Chloride 100 ml @ 200 mls/hr 1X ONCE IV Last administered on 06/17/20at 10:15; Start 06/17/20 at 08:45; Stop 06/17/20 at 09:14; Status DC Sodium Chloride 1,000 ml @ 125 mls/hr Q8H IV Last administered on 06/17/20at 23:39; Start 06/17/20 at 09:00; Stop 06/18/20 at 08:59; Status DC Propofol (Diprivan) 200 mg 1X ONCE IV Last administered on 06/17/20at 09:00; Start 06/17/20 at 09:00; Stop 06/17/20 at 09:01; Status DC Propofol 100 ml @ As Directed STK-MED ONCE IV ; Start 06/17/20 at 09:05; Stop 06/17/20 at 09:05; Status DC Lidocaine HCl (Lidocaine 1% 20ml Vial) 20 ml 1X ONCE INJ Last administered on 06/17/20at 09:15; Start 06/17/20 at 09:15; Stop 06/17/20 at 09:20; Status DC Lidocaine HCl (Xylocaine-Mpf 1% 5ml Vial) 5 ml STK-MED ONCE .ROUTE ; Start 06/17/20 at 09:26; Stop 06/17/20 at 09:26; Status DC Sodium Chloride 1,000 ml @ 1,000 mls/hr 1X ONCE IV Last administered on 06/17/20at 10:15; Start 06/17/20 at 10:15; Stop 06/17/20 at 11:14; Status DC Propofol 100 ml @ 3.819 mls/ hr CONT PRN IV PER PROTOCOL Last administered on 06/25/20at 06:12; Start 06/17/20 at 10:45; Stop 06/29/20 at 11:47; Status DC Fentanyl Citrate (Fentanyl 2ml Vial) 100 mcg 1X ONCE IV ; Start 06/17/20 at 12:00; Stop 06/17/20 at 12:39; Status DC Midazolam HCl (Versed) 2 mg 1X ONCE IV ; Start 06/17/20 at 12:00; Stop 06/17/20 at 12:39; Status DC Magnesium Sulfate/ Dextrose 100 ml @ 100 mls/hr 1X ONCE IV Last administered on 06/17/20at 12:22; Start 06/17/20 at 12:00; Stop 06/17/20 at 12:39; Status DC Buspirone HCl (Buspar) 30 mg Q8H NG Last administered on 06/17/20at 12:31; Start 06/17/20 at 12:00; Stop 06/17/20 at 12:39; Status DC Glycerin/ Hypromellose/ Polyethylene (Artificial Tears) 1 drop Q6HRS OU ; Start 06/17/20 at 12:00; Stop 06/17/20 at 12:39; Status DC Glycerin/ Hypromellose/ Polyethylene (Artificial Tears) 1 drop PRN Q15MIN PRN OU DRY EYE; Start 06/17/20 at 12:00; Stop 06/17/20 at 12:39; Status DC Heparin Sodium (Porcine) (Heparin Sodium) 5,000 unit BID SQ ; Start 06/17/20 at 21:00; Stop 06/17/20 at 12:39; Status DC Pantoprazole Sodium (PROTONIX VIAL for IV PUSH) 40 mg DAILY IVP ; Start 06/18/20 at 09:00; Stop 06/17/20 at 12:39; Status DC Fentanyl Citrate 30 ml @ 0 mls/hr CONT PRN IV PER PROTOCOL.; Start 06/17/20 at 12:00; Stop 06/17/20 at 12:39; Status DC Propofol 100 ml @ 0 mls/hr CONT PRN IV PER PROTOCOL.; Start 06/17/20 at 12:00; Stop 06/17/20 at 12:39; Status DC Midazolam HCl 100 ml @ 0 mls/hr CONT PRN IV PER PROTOCOL; Start 06/17/20 at 12:00; Stop 06/17/20 at 12:39; Status DC Vecuronium Carmichael (Norcuron Bolus) 10 mg PRN Q1HR PRN IV SHIVERING; Start 06/17/20 at 12:00; Stop 06/17/20 at 12:39; Status DC Piperacillin Sod/ Tazobactam Sod 4.5 gm/Sodium Chloride 100 ml @ 200 mls/hr 1X ONCE IV ; Start 06/17/20 at 12:15; Stop 06/17/20 at 12:44; Status Cancel Midazolam HCl (Versed) 5 mg Q1HR PRN IV SEDATION Last administered on 06/29/20at 13:48; Start 06/17/20 at 12:45; Stop 07/08/20 at 12:59; Status DC Fentanyl Citrate (Fentanyl 2ml Vial) 100 mcg Q1HR IVP Last administered on 06/17/20at 18:55; Start 06/17/20 at 13:00; Stop 06/17/20 at 23:41; Status DC Piperacillin Sod/ Tazobactam Sod 3.375 gm/Sodium Chloride 50 ml @ 100 mls/hr Q6H IV Last administered on 06/27/20at 05:31; Start 06/17/20 at 16:00; Stop 06/27/20 at 11:30; Status DC Potassium Bicarbonate (Potassium Effervescent Tablet) 40 meq 1X ONCE NG Last administered on 06/18/20at 10:00; Start 06/18/20 at 09:45; Stop 06/18/20 at 09:48; Status DC Albuterol/ Ipratropium (Duoneb) 3 ml RTQID NEB Last administered on 2/7/21at 11:21; Start 06/18/20 at 20:00 Famotidine (Pepcid Vial) 20 mg BID IVP Last administered on 07/02/20at 08:05; Start 06/18/20 at 21:00; Stop 07/02/20 at 10:23; Status DC Enoxaparin Sodium (Lovenox 40mg Syringe) 40 mg Q24H SQ Last administered on 07/21/20at 21:03; Start 06/18/20 at 21:00 Levothyroxine Sodium (Synthroid) 75 mcg DAILY06 PO Last administered on 07/22/20at 05:39; Start 06/18/20 at 21:00 Fentanyl Citrate 30 ml @ 0 mls/hr CONT PRN IV SEE PROTOCOL Last administered on 06/28/20at 04:56; Start 06/18/20 at 20:15; Stop 06/29/20 at 11:47; Status DC Carvedilol (Coreg) 3.125 mg BIDWMEALS PO Last administered on 07/22/20at 08:53; Start 06/19/20 at 17:00 Atorvastatin Calcium (Lipitor) 20 mg QHS PO Last administered on 07/21/20at 21:02; Start 06/19/20 at 21:00 Aspirin (Aspirin Chewable) 81 mg DAILYWBKFT PO Last administered on 07/22/20at 08:53; Start 06/20/20 at 08:00 Aspirin (Aspirin Chewable) 81 mg 1X ONCE PO Last administered on 06/19/20at 15:5 7; Start 06/19/20 at 15:30; Stop 06/19/20 at 15:37; Status DC Potassium Chloride/Water 100 ml @ 100 mls/hr 1X ONCE IV Last administered on 06/19/20at 15:57; Start 06/19/20 at 15:30; Stop 06/19/20 at 16:29; Status DC Amiodarone HCl (Cordarone) 400 mg DAILY PO Last administered on 07/22/20at 08:54; Start 06/20/20 at 09:00 Furosemide (Lasix) 40 mg 1X ONCE IVP Last administered on 06/20/20at 14:38; Start 06/20/20 at 13:30; Stop 06/20/20 at 13:31; Status DC Potassium Chloride/Water 100 ml @ 100 mls/hr 1X ONCE IV Last administered on 06/20/20at 14:39; Start 06/20/20 at 13:30; Stop 06/20/20 at 14:29; Status DC Dexmedetomidine HCl 400 mcg/ Sodium Chloride 100 ml @ 0 mls/hr CONT PRN IV PER PROTOCOL Last administered on 06/29/20at 06:11; Start 06/21/20 at 10:45; Stop 06/29/20 at 11:47; Status DC Sodium Chloride 500 ml @ 500 mls/hr 1X PRN PRN IV SEE COMMENTS; Start 06/21/20 at 10:45 Atropine Sulfate (ATROPINE 0.5mg SYRINGE) 0.5 mg PRN Q5MIN PRN IV SEE COMMENTS; Start 06/21/20 at 10:45; Stop 06/29/20 at 11:47; Status DC Fentanyl Citrate (Fentanyl 2ml Vial) 50 mcg PRN Q2HR PRN IVP PAIN Last administered on 07/19/20at 19:53; Start 06/23/20 at 16:45 Midazolam HCl 100 ml @ 0 mls/hr CONT PRN IV SEE PROTOCOL Last administered on 06/28/20at 03:00; Start 06/25/20 at 11:45; Stop 06/29/20 at 11:47; Status DC Lidocaine HCl (Xylocaine-Mpf 1% 2ml Vial) 2 ml STK-MED ONCE .ROUTE ; Start 06/25/20 at 14:21; Stop 06/25/20 at 14:21; Status DC Iohexol (Omnipaque 300 Mg/ml) 100 ml STK-MED ONCE .ROUTE ; Start 06/25/20 at 14:21; Stop 06/25/20 at 14:21; Status DC Heparin Sodium/ Sodium Chloride 1,000 ml @ As Directed STK-MED ONCE .ROUTE ; Start 06/25/20 at 14:21; Stop 06/25/20 at 14:21; Status DC Heparin Sodium (Porcine) (Heparin Sodium) 10,000 unit STK-MED ONCE .ROUTE ; Start 06/25/20 at 14:31; Stop 06/25/20 at 14:31; Status DC Verapamil HCl (Verapamil) 5 mg STK-MED ONCE .ROUTE ; Start 06/25/20 at 14:31; Stop 06/25/20 at 14:31; Status DC Nitroglycerin (Nitroglycerin) 200 mcg STK-MED ONCE .ROUTE ; Start 06/25/20 at 14:31; Stop 06/25/20 at 14:31; Status DC Nitroglycerin (Nitroglycerin) 200 mcg 1X ONCE IART Last administered on 06/25/20at 15:09; Start 06/25/20 at 15:15; Stop 06/25/20 at 15:16; Status DC Verapamil HCl (Verapamil) 2.5 mg 1X ONCE IART Last administered on 06/25/20at 15:09; Start 06/25/20 at 15:15; Stop 06/25/20 at 15:16; Status DC Heparin Sodium (Porcine) (Heparin Sodium) 2,500 unit 1X ONCE IART Last ad ministered on 06/25/20at 15:09; Start 06/25/20 at 15:15; Stop 06/25/20 at 15:16; Status DC Heparin Sodium/ Sodium Chloride (HEPARIN for ARTERIAL LINE FLUSH) 1,000 unit 1X ONCE IART Last administered on 06/25/20at 15:09; Start 06/25/20 at 15:15; Stop 06/25/20 at 15:16; Status DC Iohexol (Omnipaque 300 Mg/ml) 30 ml 1X ONCE IART Last administered on 06/25/20at 15:09; Start 06/25/20 at 15:15; Stop 06/25/20 at 15:16; Status DC Lidocaine HCl (Xylocaine-Mpf 1% 2ml Vial) 2 ml 1X ONCE INJ Last administered on 06/25/20at 15:09; Start 06/25/20 at 15:15; Stop 06/25/20 at 15:16; Status DC Amino Acids/ Glycerin/ Electrolytes 1,000 ml @ 80 mls/hr [id number] IV Last administered on 06/27/20at 20:50; Start 06/25/20 at 17:30; Stop 06/28/20 at 11:35; Status DC Potassium Chloride/Water 100 ml @ 100 mls/hr Q1H IV Last administered on 06/25/20at 18:46; Start 06/25/20 at 18:00; Stop 06/25/20 at 19:59; Status DC Rocuronium Carmichael (Zemuron) 50 mg STK-MED ONCE .ROUTE ; Start 06/26/20 at 11:37; Stop 06/26/20 at 11:38; Status DC Cellulose (Surgicel Fibrillar 1x2) 1 each STK-MED ONCE .ROUTE Last administered on 06/26/20at 13:20; Start 06/26/20 at 12:19; Stop 06/26/20 at 12:19; Status DC Bupivacaine HCl (Sensorcaine Mpf 0.5%) 30 ml STK-MED ONCE .ROUTE ; Start 06/26/20 at 12:19; Stop 06/26/20 at 12:19; Status DC Ondansetron HCl (Zofran) 4 mg STK-MED ONCE .ROUTE ; Start 06/26/20 at 13:13; Stop 06/26/20 at 13:13; Status DC Dexamethasone Sodium Phosphate (Decadron) 4 mg STK-MED ONCE .ROUTE ; Start 06/26/20 at 13:13; Stop 06/26/20 at 13:14; Status DC Cellulose (Surgicel Fibrillar 1x2) 1 each STK-MED ONCE .ROUTE Last administered on 06/26/20at 13:22; Start 06/26/20 at 13:25; Stop 06/26/20 at 13:25; Status DC Sevoflurane (Ultane) 30 ml STK-MED ONCE IH ; Start 06/26/20 at 13:37; Stop 06/26/20 at 13:38; Status DC Propofol (Diprivan) 200 mg STK-MED ONCE IV ; Start 06/26/20 at 13:38; Stop 06/26/20 at 13:38; Status DC Ringer's Solution 1,000 ml @ 30 mls/hr Q24H IV Last administered on 06/27/20at 08:39; Start 06/27/20 at 07:00; Stop 06/27/20 at 18:59; Status DC Prochlorperazine Edisylate (Compazine) 5 mg PACU PRN PRN IV NAUSEA, MRX1; Start 06/27/20 at 07:00; Stop 06/28/20 at 06:59; Status DC Propofol (Diprivan) 200 mg STK-MED ONCE IV ; Start 06/27/20 at 09:53; Stop 06/27/20 at 09:54; Status DC Lidocaine HCl (Lidocaine Pf 2% Vial) 5 ml STK-MED ONCE .ROUTE ; Start 06/27/20 at 09:54; Stop 06/27/20 at 09:54; Status DC Lisinopril (Prinivil) 5 mg DAILY PO Last administered on 07/04/20at 09:23; Start 06/29/20 at 09:00; Stop 07/04/20 at 14:46; Status DC Acetaminophen/ Hydrocodone Bitart (Lortab 7.5-325/ 15ml Oral Solution) 10 ml 1X ONCE PEG Last administered on 06/28/20at 12:37; Start 06/28/20 at 12:30; Stop 06/28/20 at 12:31; Status DC Piperacillin Sod/ Tazobactam Sod 3.375 gm/Sodium Chloride 50 ml @ 100 mls/hr Q6HRS IV Last administered on 07/07/20at 06:11; Start 06/29/20 at 10:00; Stop 07/07/20 at 09:51; Status DC Vecuronium Carmichael (Norcuron Bolus) 10 mg STK-MED ONCE IV ; Start 06/29/20 at 14:31; Stop 06/29/20 at 14:31; Status DC Propofol 100 ml @ 0 mls/hr CONT PRN IV PER PROTOCOL Last administered on 07/02/20at 07:26; Start 06/29/20 at 16:30; Stop 07/08/20 at 12:58; Status DC Vecuronium Carmichael (Norcuron Bolus) 10 mg 1X ONCE IV Last administered on 06/29/20at 14:31; Start 06/29/20 at 14:31; Stop 06/29/20 at 17:19; Status DC Daptomycin 400 mg/ Sodium Chloride 50 ml @ 100 mls/hr Q24H IV Last administered on 07/04/20at 09:25; Start 06/30/20 at 10:00; Stop 07/05/20 at 08:14; Status DC Famotidine (Pepcid) 20 mg QHS GT Last administered on 07/21/20at 21:02; Start 07/02/20 at 21:00 Haloperidol Lactate (Haldol Inj) 5 mg Q8HRS IVP Last administered on 07/03/20at 06:00; Start 07/02/20 at 14:00; Stop 07/03/20 at 12:40; Status DC Micafungin Sodium 100 mg/Dextrose 100 ml @ 100 mls/hr Q24H IV Last administered on 07/05/20at 08:04; Start 07/03/20 at 09:00; Stop 07/05/20 at 08:14; Status DC Alteplase, Recombinant (Cathflo For Central Catheter Clearance) 1 mg 1X ONCE INT CAT Last administered on 07/03/20at 08:45; Start 07/03/20 at 08:45; Stop 07/03/20 at 08:46; Status DC Haloperidol Lactate (Haldol Inj) 2.5 mg PRN Q6HRS PRN IVP AGITATION; Start 07/03/20 at 12:30; Stop 07/03/20 at 12:40; Status DC Haloperidol Lactate (Haldol Inj) 2.5 mg PRN Q6HRS PRN IVP AGITATION Last administered on 07/04/20at 01:04; Start 07/03/20 at 14:00; Stop 07/04/20 at 08:04; Status DC Haloperidol Lactate (Haldol Inj) 2.5 mg Q8HRS IVP ; Start 07/04/20 at 10:00; Stop 07/04/20 at 08:15; Status DC Haloperidol Lactate (Haldol Inj) 2.5 mg PRN Q8HRS PRN IVP AGITATION; Start 07/04/20 at 08:15; Stop 07/05/20 at 10:35; Status DC Lisinopril (Prinivil) 20 mg BID PO Last administered on 07/22/20at 08:53; Start 07/04/20 at 21:00 Haloperidol (Haldol) 0.5 mg PRN Q8HRS PRN PO AGITATION-2ND CHOICE Last administered on 07/12/20at 16:13; Start 07/05/20 at 10:45 Acetaminophen (Tylenol) 650 mg PRN Q6HRS PRN PO MILD PAIN / TEMP > 100.3'F Last administered on 07/22/20at 08:53; Start 07/06/20 at 13:30 Amoxicillin/ Clavulanate Potassium (Augmentin 875/ 125mg) 1 tab BID PO Last administered on 07/11/20at 19:59; Start 07/07/20 at 21:00; Stop 07/12/20 at 09:57; Status DC Diphenhydramine HCl (Benadryl Oral Elixir) 25 mg PRN Q6HRS PRN PEG ITCHING Last administered on 07/11/20at 19:52; Start 07/10/20 at 19:15 Lorazepam (Ativan Inj) 1 mg PRN Q6HRS PRN IVP ANXIETY / AGITATION Last administered on 07/11/20at 05:21; Start 07/11/20 at 05:15; Stop 07/11/20 at 09:07; Status DC Zolpidem Tartrate (Ambien) 2.5 mg HS PO Last administered on 07/11/20at 19:52; Start 07/11/20 at 21:00; Stop 07/12/20 at 09:57; Status DC Diphenhydramine HCl (Benadryl) 50 mg PRN Q6HRS PRN IVP itching/insomina Last administered on 07/20/20at 20:06; Start 07/12/20 at 01:00 Haloperidol Lactate (Haldol Inj) 5 mg PRN Q6HRS PRN IVP AGITATION Last administered on 07/14/20at 00:49; Start 07/12/20 at 01:00 Zolpidem Tartrate (Ambien) 5 mg HS PO Last administered on 07/14/20at 21:28; Start 07/12/20 at 21:00; Stop 07/15/20 at 10:51; Status DC Lorazepam (Ativan) 1 mg PRN Q6HRS PRN PO ANXIETY / AGITATION Last administered on 07/13/20at 01:45; Start 07/12/20 at 10:00; Stop 07/14/20 at 10:49; Status DC Fluconazole (Diflucan) 150 mg 1X ONCE PO ; Start 07/12/20 at 16:30; Stop at 16:31; Status Cancel Clotrimazole (Mycelex-7) 1 reji HS VG Last administered on 07/18/20at 21:29; Start 07/12/20 at 21:00; Stop 07/19/20 at 20:59; Status DC Potassium Bicarbonate (Potassium Effervescent Tablet) 30 meq 1X ONCE PEG Last administered on 07/13/20at 09:43; Start 07/13/20 at 09:00; Stop 07/13/20 at 09:01; Status DC Sodium Chloride 1,000 ml @ 1,000 mls/hr 1X ONCE IV Last administered on 07/13/20 12:02; Start 07/13/20 at 12:00; Stop 07/13/20 at 12:59; Status DC Haloperidol Lactate (Haldol Inj) 2 mg 1X ONCE IVP Last administered on 07/13/20at 12:03; Start 07/13/20 at 12:00; Stop 07/13/20 at 12:01; Status DC Neomycin/ Polymyxin/ Bacitracin (Triple Antibiotic Ointment) 1 pkt BID TP Last administered on 07/22/20 08:53; Start 07/14/20 at 15:00 Potassium Bicarbonate (Potassium Effervescent Tablet) 20 meq BID PEG Last administered on 07/22/20 08:54; Start 07/15/20 at 14:00 Haloperidol (Haldol) 5 mg HS PEG Last administered on 07/18/20 21:26; Start 07/17/20 at 21:00; Stop 07/19/20 at 18:43; Status DC Haloperidol (Haldol) 2.5 mg HS PEG Last administered on 07/21/20at 21:02; Start 07/19/20 at 21:00 Active Scripts Active Reported Acetaminophen-Diphenhyd 500-25 (Acetaminophen/Diphenhydramine) 1 Each Tablet 1 Each PO HS PRN Naproxen 500 Mg Tablet 1 Tab PO BID PRN 30 Days Tramadol Hcl 50 Mg Tablet 50 Mg PO Q4HRS Levothyroxine Sodium 75 Mcg Tablet 1 Tab PO DAILY Adderall 20 Mg Tablet (Dextroamphetamine/Amphetamine) 20 Mg Tablet 1 Tab PO DAILY MDD 1 Tablet(s) 5 Days Prozac (Fluoxetine Hcl) 20 Mg Capsule 1 Cap PO [id number] Vitals/I & O Vital Sign - Last 24 Hours 07/21/20 07/21/20 07/21/20 07/21/20 15:00 15:31 17:16 19:00 Temp 98.7 97.6 98.7 97.6 Pulse 79 79 85 Resp 18 18 B/P (MAP) 112/56 (74) 112/56 119/45 (69) Pulse Ox 96 96 O2 Delivery Room Air Room Air Room Air 07/21/20 07/21/20 07/21/20 07/21/20 19:20 20:31 21:02 23:04 Temp 97.7 97.7 Pulse 85 Resp 18 B/P (MAP) 119/45 125/52 (76) Pulse Ox 94 97 O2 Delivery Room Air Room Air Room Air 07/21/20 07/22/20 07/22/20 07/22/20 23:05 03:05 07:00 07:50 Temp 97.7 98.1 97.8 97.7 98.1 97.8 Pulse 85 87 86 Resp 18 18 B/P (MAP) 125/52 (76) 134/61 (85) 122/63 (82) Pulse Ox 97 96 96 94 O2 Delivery Room Air Room Air Room Air Room Air O2 Flow Rate 8.0 07/22/20 07/22/20 07/22/20 07/22/20 08:53 08:53 08:54 11:00 Temp 97.7 97.7 Pulse 86 86 86 86 Resp 18 B/P (MAP) 122/63 122/63 122/63 114/76 (89) Pulse Ox 96 O2 Delivery Room Air 07/22/20 11:23 Pulse Ox 94 O2 Delivery Room Air Intake and Output 07/21/20 07/21/20 07/22/20 15:00 23:00 07:00 Intake Total 905 ml 880 ml 415 ml Balance 905 ml 880 ml 415 ml Justicifation of Admission Dx: Justifications for Admission: Justification of Admission Dx: N/A MIMI FREEMAN MD Jul 22, 2020 12:23
[2020-07-22 15:00] VITALS: BP 132/46
[2020-07-22 19:00] VITALS: BP 119/62
[2020-07-22] MEDS: ATORVASTATIN CALCIUM 20 MG TABLET PO SCH (20:48)
[2020-07-22] MEDS: HALOPERIDOL 5 MG TABLET. PEG SCH (20:48)
[2020-07-22] MEDS: diphenhydrAMINE ORAL ELIXIR 12.5 MG/5 ML ML PEG PRN (20:48)
[2020-07-22] MEDS: FAMOTIDINE 20 MG TABLET. GT SCH (20:49)
[2020-07-22] MEDS: ENOXAPARIN 40 MG/0.4 ML SYRINGE. SQ SCH (20:56)
[2020-07-22 23:06] VITALS: BP 122/56
[2020-07-23 03:24] VITALS: BP 129/72
[2020-07-23] MEDS: LEVOTHYROXINE 75 MCG TABLET PO SCH (06:36)
[2020-07-23 07:00] VITALS: BP 107/71
[2020-07-23] MEDS: IPRATRPIUM/ALBUTEROL 0.5/2.5MG 3 ML NEBU. NEB SCH ×4 (07:36→21:04)
--- NOTE | 2020-07-23 10:27 | NUR ---
SW following. Discussed with RN, pt accepted at [facility] rehab, however no beds available today. Possible discharge to [facility] tomorrow (07/24/20). SW will continue to follow.
[2020-07-23] MEDS: NEOMY/BACITR/POLYMYXIN OINT PACKET. TP SCH ×2 (10:29→22:48)
[2020-07-23] MEDS: AMIODARONE HCL 200 MG TABLET. PO SCH (10:30)
[2020-07-23] MEDS: POTASSIUM BICARB 20 MEQ EFFERVESCENT TABLET. PEG SCH ×2 (10:31→22:48)
[2020-07-23] MEDS: CARVEDILOL 3.125 MG TABLET. PO SCH ×2 (10:31→18:45)
[2020-07-23] MEDS: ASPIRIN CHEWABLE 81 MG TABLET. PO SCH (10:31)
[2020-07-23] MEDS: LISINOPRIL 20 MG TABLET PO SCH ×2 (10:32→22:49)
--- NOTE | 2020-07-23 10:43 | PDOC ---
Date of Service: DATE: 07/23/20 TIME: 10:40 Subjective: Subjective: present - says she said "I love you" and "that's okay" yesterday, also sang with him at one point. Wonders when she can eat by mouth. We discussed need for appropriate mental status to effectively participate in swallow eval. Objective: Objective: D/w nurse - wouldn't put gauze under bumper - she says she likes to for skin protection. Reviewed SW note - possible DC to rehab tomorrow. Vital Signs: Vital Signs Date Time Temp Pulse Resp B/P (MAP) Pulse Ox O2 Delivery O2 Flow Rate FiO2 07/23/20 10:32 113 141/112 07/23/20 07:37 Room Air 07/23/20 07:00 98.0 18 96 98.0 Labs: Laboratory Tests Test 07/22/20 10:42 07/22/20 15:47 07/22/20 20:49 07/23/20 07:29 Glucose (Fingerstick) 153 mg/dL 94 mg/dL 102 mg/dL 134 mg/dL PE: GEN: NAD LUNGS: CTAB HEART: mildly tachycardic ABD: PEG in place - removed gauze from under outer bumper NEURO/PSYCH: awake, does not verbalize or make eye contact A/P: Anoxic encephalopathy s/p PEG -- PEG functioning. Awaiting discharge plans. Justicifation of Admission Dx: Justifications for Admission: Justification of Admission Dx: N/A SHAHBAZ FOSS Jul 23, 2020 10:43
[2020-07-23 11:00] VITALS: BP 141/112
--- NOTE | 2020-07-23 14:29 | PDOC ---
[employer] PROGRESS NOTE Date of Service DOS: DATE: 07/23/20 TIME: 14:26 Chief Complaint Chief Complaint A/P POST covid cardiomyopathy acute systolic CHF Severe NICM: EF 25%. No significant CAD per [facility] anoxic brain injury Cardiac arrest with resuscitation and probable pneumonia, sternal fracture and pneumothorax secondary to CPR, leukocytosis, electrolyte disturbance, hypokalemia, lactic acidosis, elevated troponin. DC Ativan, use Haldol will increase to 5 mg again since she did not sleep with decreased dose of 2.5 mg requested by the , discussed with nursing staff Trach 06/26/20, PEG on 06/27/20 Plan: Continue PT OT Pending placement with [facility] rehab History of Present Illness History of Present Illness 07/23/2020 No major events overnight. Patient working with PT OT and working on transfers out of the wheelchair. Patient's chart, labs, images were reviewed and discussed with RN 2-7 no acute events reported overnight, case discussed with nursing staff patient in no acute distress no complaints during my visit 2-6 patient seems to have had better sleep with increasing Haldol. No acute events reported overnight patient resting comfortably during my visit still waiting for placement 2-5 no new events, she did not sleep as well as the night before. 2-4 no acute events reported overnight pretty much status quo still waiting for disposition 2-3 patient resting comfortably today she fell asleep around 3:00 in the morning as per nursing staff. She received Haldol yesterday instead of Ambien, we have discussed allowing patient to sleep in the evening time and to avoid excessive stimulation during the evening hours. Awaiting for case management for an update regarding disposition 2-2 patient seems to be status quo, unfortunately is having a tough time with the loss of his partner. He understands that he cannot take care of her at home and we are awaiting for case management to provide us with a viable option moving forward 2-1 no acute events reported overnight, case discussed with nursing staff patie nt in no acute distress no complaints during my visit, hopefully we can start the process of discharge she will certainly need transitioning to an institution unlikely to be able to be cared for at home since she requires full-time care 1-31 trach removed d/w DR Aguiar have stopped iv ativan yesterday, SAID YES TO when asked about some remote memories 1-30 DC Ativan, use Haldol appears less agitated d/w in room Trach 06/26/20, PEG on 06/27/20 D/W IN ROOM, SHE IS NOW TRACKING AT TIMES 07/13 MOVING BOTH LEGS AND ARMS without apparent purpose, family working on placement barriers , HYPOKALEMIC, ON REPLACEMENT D/W RN, ALSO VAG CANDIDIASIS, ON MONISTAT VAG CREAM D/W RN 07/09 S/P cardiac arrest 06/17 S/P trach on 06/26 ----- S/P peg 06/27 NO PURPOSEFUL movement D/W traffic expert wants to try 1 month at long-term acute [facility] Transfer to long-term care, denied by all facilities contacted to date d/w rn 07/08: Patient seen and evaluated with at bedside. No significant change overnight, still no purposeful movements. Sounds as though family still plans to hold off on any change in CODE STATUS or goals of care until at least 30 days after admission date. did show me some video of patient smiling and having meaningful exchange with a family friend today. 07/07. Transfer out of ICU to the medical floors. Discussed with , he feels that music is helping patient. She will occasionally check in with eyes, but no purposeful movements. Has been mentioned trying to give 30 days for admission to show any signs of meaningful improvement. At which time decision will be made about hospice in future goals of care. 07/06, will transfer to floor, no tele, off vent now for some time. discussed with , she does seem improved, she had a tiny smile to some music earlier, still not following commands or any purposeful response 07/05, about the same, discussed my previous thoughts again with and son, not following commands, movement is seeming to be mostly reflexive. they still want to cont iwth the 30 days plan to give her a chance to improve. I discussed possible transition to hospice, they want to wait until that time. 07/04-, minmal change, some relfexive movements, had a video of her withdrawing to light touch to face, soem work with PT, not following commands as directed I discussed poor prognosis with at length, that as days go by, her chances for meaningful recovery continue to dim. I discussed consideration of hospice care. 07/03/2020, discussed plan with family at length yesterday Patient seen and examined in the ICU plan LTAC, but denied start PT and OT moving around a lot She is still not very responsive but at the same time less agitated Vitals/I&O Vitals/I&O: Vital Signs Date Time Temp Pulse Resp B/P (MAP) Pulse Ox O2 Delivery O2 Flow Rate FiO2 07/23/20 12:32 Room Air 07/23/20 11:00 98.5 112 18 141/112 (122) 97 98.5 I & O 07/22/20 07/22/20 07/23/20 15:00 23:00 07:00 Intake Total 905 ml 855 ml 415 ml Output Total 0 ml Balance 905 ml 855 ml 415 ml Physical Exam Physical Exam: GENERAL: Opens eyes transiently, does not follow any commands, Moving arms and legs, not thrusting tongue HEENT: Both pupils are round and reacting. No conjunctival lesion. NECK: Supple. Trach present, erythema and drainage present around trach site improving LUNGS: Decreased breath sounds bilaterally. HEART: S1, S2, regular. No gallop or murmur. ABDOMEN: Soft, nontender. No organomegaly.peg tube + fecal tube , Jolly present EXTREMITIES: No edema or cyanosis. toe amputation of the Rt foot,healed scars SKIN: Unremarkable. NEUROLOGICAL: Opens eyes transiently does not follow any commands, LAUGHS when talking to family General: Cooperative, No acute distress Heart: Regular rate, Normal S1, Normal S2 Lungs: Clear Abdomen: Normal bowel sounds, Soft, No tenderness, No hepatosplenomegaly, No masses Extremities: No cyanosis Skin: No rashes, No breakdown Labs Labs: Laboratory Tests Test 07/22/20 15:47 07/22/20 20:49 07/23/20 07:29 07/23/20 12:14 Glucose (Fingerstick) 94 mg/dL (70-99) 102 mg/dL (70-99) 134 mg/dL (70-99) 224 mg/dL (70-99) Assessment and Plan Assessmemt and Plan Problems Medical Problems: (1) Cardiac arrest Status: Acute (2) Fracture of ribs, multiple Status: Acute (3) Hyperglycemia Status: Acute (4) Pneumonia Status: Acute (5) Pneumothorax, right Status: Acute (6) Sternal fracture Status: Acute (7) VF (ventricular fibrillation) Status: Acute Comment Review of Relevant I have reviewed the following items afua (where applicable) has been applied. Justifications for Admission Other Justification SUZANNE MCADAMS MD Jul 23, 2020 14:29
[2020-07-23 15:00] VITALS: BP 125/77
[2020-07-23 19:00] VITALS: BP 126/66
[2020-07-23] MEDS: ENOXAPARIN 40 MG/0.4 ML SYRINGE. SQ SCH (22:48)
[2020-07-23] MEDS: diphenhydrAMINE ORAL ELIXIR 12.5 MG/5 ML ML PEG PRN (22:48)
[2020-07-23] MEDS: ATORVASTATIN CALCIUM 20 MG TABLET PO SCH (22:49)
[2020-07-23] MEDS: HALOPERIDOL 5 MG TABLET. PEG SCH (22:49)
[2020-07-23] MEDS: FAMOTIDINE 20 MG TABLET. GT SCH (22:50)
[2020-07-23 23:00] VITALS: BP 143/75
[2020-07-24 03:00] VITALS: BP 119/57
[2020-07-24] MEDS: LEVOTHYROXINE 75 MCG TABLET PO SCH (06:18)
[2020-07-24 07:00] VITALS: BP 116/72
[2020-07-24] MEDS: ASPIRIN CHEWABLE 81 MG TABLET. PO SCH (07:51)
[2020-07-24] MEDS: NEOMY/BACITR/POLYMYXIN OINT PACKET. TP SCH (07:51)
[2020-07-24] MEDS: POTASSIUM BICARB 20 MEQ EFFERVESCENT TABLET. PEG SCH (07:51)
[2020-07-24] MEDS: LISINOPRIL 20 MG TABLET PO SCH (07:53)
[2020-07-24] MEDS: AMIODARONE HCL 200 MG TABLET. PO SCH (07:53)
[2020-07-24] MEDS: CARVEDILOL 3.125 MG TABLET. PO SCH ×2 (07:54→17:40)
[2020-07-24 08:18] LABS: BASO % 1 % (0-3); EOS # 0.2 x10^3/uL (0.0-0.7); EOS % 3 % (0-3); HEMATOCRIT 41.2 % (36.0-47.0); HEMOGLOBIN 13.4 g/dL (12.0-15.5); LYMPH % 25 % (24-48); MEAN CORPUSCULAR HEMOGLOBIN 29 pg (25-35); MEAN CORPUSCULAR HGB CONC 32 g/dL (31-37); MEAN CORPUSCULAR VOLUME 90 fL (79-100); MONO # 0.6 x10^3/uL (0.0-1.1); MONO % 7 % (0-9); NEUT # 5.1 x10^3/uL (1.8-7.7); NEUT % 65 % (31-73); PLATELET COUNT 373 x10^3/uL (140-400); RED BLOOD COUNT 4.57 x10^6/uL (3.50-5.40); RED CELL DISTRIBUTION WIDTH 14.2 % (11.5-14.5); WHITE BLOOD COUNT 7.9 x10^3/uL (4.0-11.0)
[2020-07-24] MEDS: IPRATRPIUM/ALBUTEROL 0.5/2.5MG 3 ML NEBU. NEB SCH ×3 (08:19→15:38)
[2020-07-24 08:29] LABS: CALCIUM 9.6 mg/dL (8.5-10.1); CREATININE 0.8 mg/dL (0.6-1.0); GFR 73.9; MAGNESIUM 2.3 mg/dL (1.8-2.4); POTASSIUM 4.6 mmol/L (3.5-5.1)
--- NOTE | 2020-07-24 10:00 | PDOC ---
Date of Service: DATE: 07/24/20 TIME: 09:59 Subjective: Subjective: present - says she's going to try walking today - stood up 30 times yesterday. Has been sleeping this morning. Says PEG functioning and she gets sleepy after feeds. Objective: Objective: DC to rehab today? Vital Signs: Vital Signs Date Time Temp Pulse Resp B/P (MAP) Pulse Ox O2 Delivery O2 Flow Rate FiO2 07/24/20 08:21 97 Room Air 07/24/20 07:54 89 116/72 07/24/20 07:00 97.6 18 97.6 Labs: Laboratory Tests Test 07/23/20 12:14 07/23/20 16:35 07/23/20 21:28 07/24/20 07:26 Glucose (Fingerstick) 224 mg/dL 135 mg/dL 107 mg/dL 126 mg/dL Test 07/24/20 08:00 White Blood Count 7.9 x10^3/uL Red Blood Count 4.57 x10^6/uL Hemoglobin 13.4 g/dL Hematocrit 41.2 % Mean Corpuscular Volume 90 fL Mean Corpuscular Hemoglobin 29 pg Mean Corpuscular Hemoglobin Concent 32 g/dL Red Cell Distribution Width 14.2 % Platelet Count 373 x10^3/uL Neutrophils (%) (Auto) 65 % Lymphocytes (%) (Auto) 25 % Monocytes (%) (Auto) 7 % Eosinophils (%) (Auto) 3 % Basophils (%) (Auto) 1 % Neutrophils # (Auto) 5.1 x10^3/uL Lymphocytes # (Auto) 2.0 x10^3/uL Monocytes # (Auto) 0.6 x10^3/uL Eosinophils # (Auto) 0.2 x10^3/uL Basophils # (Auto) 0.0 x10^3/uL Sodium Level 138 mmol/L Potassium Level 4.6 mmol/L Chloride Level 101 mmol/L Carbon Dioxide Level 28 mmol/L Anion Gap 9 Blood Urea Nitrogen 16 mg/dL Creatinine 0.8 mg/dL Estimated GFR (Cockcroft-Gault) 73.9 Glucose Level 117 mg/dL Calcium Level 9.6 mg/dL Magnesium Level 2.3 mg/dL PE: GEN: NAD LUNGS: CTAB HEART: RRR ABD: PEg in place - site looks good NEURO/PSYCH: opens eyes A/P: Anoxic encephalopathy s/p PEG -- PEG functioning. Awaiting discharge plans. Justicifation of Admission Dx: Justifications for Admission: Justification of Admission Dx: N/A SHAHBAZ FOSS Jul 24, 2020 10:00
--- NOTE | 2020-07-24 10:16 | PDOC ---
PROGRESS NOTES Date of Service DATE: 07/24/20 TIME: 10:15 Assessment Problems Medical Problems: (1) Cardiac arrest Status: Acute (2) Fracture of ribs, multiple Status: Acute (3) Hyperglycemia Status: Acute (4) Pneumonia Status: Acute (5) Pneumothorax, right Status: Acute (6) Sternal fracture Status: Acute (7) VF (ventricular fibrillation) Status: Acute Anoxic encephalopathy, ventricular fibrillation and asystole, improving, but not making much more progress Negative for Covid Status-post trach and PEG, now off vent, trach removed 07/15 Nocturnal restlessness, does the best with haloperidol, believes Plan Haloperidol as needed, also has as needed lorazepam and zolpidem Supportive care Holding on additional neurological tests Transfer anytime to long-term care was ready for transfer 06/29, still here due to insurance company [employer] Subjective None Objective Vital Signs Date Time Temp Pulse Resp B/P (MAP) Pulse Ox O2 Delivery O2 Flow Rate FiO2 07/24/20 08:21 97 Room Air 07/24/20 07:54 89 116/72 07/24/20 07:00 97.6 18 97.6 Intake and Output 07/24/20 07:00 Intake Total 2200 ml Output Total 1 ml Balance 2199 ml Tube Feeding 2200 ml Output Urine Total 1 ml # Voids 4 # Bowel Movements 1 PHYSICAL EXAM No response to visual threat PERRL. EOMI. CN: no focal findings. Muscle tone: normal. Muscle strength: Moving arms and legs, not thrusting tongue DTR: 1+ Plantar reflex: Flexor Gait: not examined. Sensory exam: Not cooperative Cerebellar: Not cooperative Review of Relevant I have reviewed the following items afua (where applicable) has been applied. Labs Laboratory Tests Test 07/22/20 10:42 07/22/20 15:47 07/22/20 20:49 07/23/20 07:29 Glucose (Fingerstick) 153 mg/dL (70-99) 94 mg/dL (70-99) 102 mg/dL (70-99) 134 mg/dL (70-99) Test 07/23/20 12:14 07/23/20 16:35 07/23/20 21:28 07/24/20 07:26 Glucose (Fingerstick) 224 mg/dL (70-99) 135 mg/dL (70-99) 107 mg/dL (70-99) 126 mg/dL (70-99) Test 07/24/20 08:00 White Blood Count 7.9 x10^3/uL (4.0-11.0) Red Blood Count 4.57 x10^6/uL (3.50-5.40) Hemoglobin 13.4 g/dL (12.0-15.5) Hematocrit 41.2 % (36.0-47.0) Mean Corpuscular Volume 90 fL (79-100) Mean Corpuscular Hemoglobin 29 pg (25-35) Mean Corpuscular Hemoglobin Concent 32 g/dL (31-37) Red Cell Distribution Width 14.2 % (11.5-14.5) Platelet Count 373 x10^3/uL (140-400) Neutrophils (%) (Auto) 65 % (31-73) Lymphocytes (%) (Auto) 25 % (24-48) Monocytes (%) (Auto) 7 % (0-9) Eosinophils (%) (Auto) 3 % (0-3) Basophils (%) (Auto) 1 % (0-3) Neutrophils # (Auto) 5.1 x10^3/uL (1.8-7.7) Lymphocytes # (Auto) 2.0 x10^3/uL (1.0-4.8) Monocytes # (Auto) 0.6 x10^3/uL (0.0-1.1) Eosinophils # (Auto) 0.2 x10^3/uL (0.0-0.7) Basophils # (Auto) 0.0 x10^3/uL (0.0-0.2) Sodium Level 138 mmol/L (136-145) Potassium Level 4.6 mmol/L (3.5-5.1) Chloride Level 101 mmol/L (98-107) Carbon Dioxide Level 28 mmol/L (21-32) Anion Gap 9 (6-14) Blood Urea Nitrogen 16 mg/dL (7-20) Creatinine 0.8 mg/dL (0.6-1.0) Estimated GFR (Cockcroft-Gault) 73.9 Glucose Level 117 mg/dL (70-99) Calcium Level 9.6 mg/dL (8.5-10.1) Magnesium Level 2.3 mg/dL (1.8-2.4) Laboratory Tests Test 07/23/20 12:14 07/23/20 16:35 07/23/20 21:28 07/24/20 07:26 Glucose (Fingerstick) 224 mg/dL (70-99) 135 mg/dL (70-99) 107 mg/dL (70-99) 126 mg/dL (70-99) Test 07/24/20 08:00 White Blood Count 7.9 x10^3/uL (4.0-11.0) Red Blood Count 4.57 x10^6/uL (3.50-5.40) Hemoglobin 13.4 g/dL (12.0-15.5) Hematocrit 41.2 % (36.0-47.0) Mean Corpuscular Volume 90 fL (79-100) Mean Corpuscular Hemoglobin 29 pg (25-35) Mean Corpuscular Hemoglobin Concent 32 g/dL (31-37) Red Cell Distribution Width 14.2 % (11.5-14.5) Platelet Count 373 x10^3/uL (140-400) Neutrophils (%) (Auto) 65 % (31-73) Lymphocytes (%) (Auto) 25 % (24-48) Monocytes (%) (Auto) 7 % (0-9) Eosinophils (%) (Auto) 3 % (0-3) Basophils (%) (Auto) 1 % (0-3) Neutrophils # (Auto) 5.1 x10^3/uL (1.8-7.7) Lymphocytes # (Auto) 2.0 x10^3/uL (1.0-4.8) Monocytes # (Auto) 0.6 x10^3/uL (0.0-1.1) Eosinophils # (Auto) 0.2 x10^3/uL (0.0-0.7) Basophils # (Auto) 0.0 x10^3/uL (0.0-0.2) Sodium Level 138 mmol/L (136-145) Potassium Level 4.6 mmol/L (3.5-5.1) Chloride Level 101 mmol/L (98-107) Carbon Dioxide Level 28 mmol/L (21-32) Anion Gap 9 (6-14) Blood Urea Nitrogen 16 mg/dL (7-20) Creatinine 0.8 mg/dL (0.6-1.0) Estimated GFR (Cockcroft-Gault) 73.9 Glucose Level 117 mg/dL (70-99) Calcium Level 9.6 mg/dL (8.5-10.1) Magnesium Level 2.3 mg/dL (1.8-2.4) Microbiology 07/10/20 Urine Culture - Final, Complete 06/30/20 Gram Stain - Final, Complete 06/30/20 Aerobic and Anaerobic Culture - Final, Complete 06/17/20 Blood Culture - Final, Complete NO GROWTH AFTER 5 DAYS Medications Current Medications Amiodarone HCl 150 mg/Dextrose 103 ml @ 618 mls/hr 1X ONCE IV Last administered on 06/17/20at 07:00; Start 06/17/20 at 07:00; Stop 06/17/20 at 07:09; Status DC Amiodarone HCl 450 mg/Dextrose 259 ml @ 33 mls/hr 1X ONCE IV ; Start 06/17/20 at 07:00; Stop 06/17/20 at 14:50; Status DC Sodium Chloride 1,000 ml @ 1,000 mls/hr 1X ONCE IV Last administered on 06/17/20at 08:11; Start 06/17/20 at 07:15; Stop 06/17/20 at 08:14; Status DC Midazolam HCl 100 ml @ 0 mls/hr 1X ONCE IV ; Start 06/17/20 at 07:15; Stop 06/17/20 at 07:16; Status DC Midazolam HCl (Versed) 5 mg STK-MED ONCE .ROUTE ; Start 06/17/20 at 07:17; Stop 06/17/20 at 07:17; Status DC Iohexol (Omnipaque 300 Mg/ml) 75 ml 1X ONCE IV Last administered on 06/17/20at 0 8:17; Start 06/17/20 at 08:15; Stop 06/17/20 at 08:16; Status DC Iohexol (Omnipaque 350 Mg/ml) 100 ml 1X ONCE IV Last administered on 06/17/20at 08:17; Start 06/17/20 at 08:15; Stop 06/17/20 at 08:16; Status DC Info (CONTRAST GIVEN -- Rx MONITORING) 1 each PRN DAILY PRN MC SEE COMMENTS; Start 06/17/20 at 08:15; Stop 06/19/20 at 08:14; Status DC Sodium Chloride 1,000 ml @ 1,000 mls/hr 1X ONCE IV Last administered on 06/17/20at 08:25; Start 06/17/20 at 08:15; Stop 06/17/20 at 09:14; Status DC Potassium Chloride/Water 100 ml @ 50 mls/hr 1X ONCE IV Last administered on 06/17/20at 10:16; Start 06/17/20 at 09:00; Stop 06/17/20 at 10:59; Status DC Piperacillin Sod/ Tazobactam Sod (Zosyn Per Pharmacy) 1 each PRN DAILY PRN MC SEE COMMENTS; Start 06/17/20 at 08:45; Stop 06/27/20 at 11:36; Status DC Piperacillin Sod/ Tazobactam Sod 4.5 gm/Sodium Chloride 100 ml @ 200 mls/hr 1X ONCE IV Last administered on 06/17/20at 10:15; Start 06/17/20 at 08:45; Stop 06/17/20 at 09:14; Status DC Sodium Chloride 1,000 ml @ 125 mls/hr Q8H IV Last administered on 06/17/20at 23:39; Start 06/17/20 at 09:00; Stop 06/18/20 at 08:59; Status DC Propofol (Diprivan) 200 mg 1X ONCE IV Last administered on 06/17/20at 09:00; Start 06/17/20 at 09:00; Stop 06/17/20 at 09:01; Status DC Propofol 100 ml @ As Directed STK-MED ONCE IV ; Start 06/17/20 at 09:05; Stop 06/17/20 at 09:05; Status DC Lidocaine HCl (Lidocaine 1% 20ml Vial) 20 ml 1X ONCE INJ Last administered on 06/17/20at 09:15; Start 06/17/20 at 09:15; Stop 06/17/20 at 09:20; Status DC Lidocaine HCl (Xylocaine-Mpf 1% 5ml Vial) 5 ml STK-MED ONCE .ROUTE ; Start 06/17/20 at 09:26; Stop 06/17/20 at 09:26; Status DC Sodium Chloride 1,000 ml @ 1,000 mls/hr 1X ONCE IV Last administered on 06/17/20at 10:15; Start 06/17/20 at 10:15; Stop 06/17/20 at 11:14; Status DC Propofol 100 ml @ 3.819 mls/ hr CONT PRN IV PER PROTOCOL Last administered on 06/25/20at 06:12; Start 06/17/20 at 10:45; Stop 06/29/20 at 11:47; Status DC Fentanyl Citrate (Fentanyl 2ml Vial) 100 mcg 1X ONCE IV ; Start 06/17/20 at 12:00; Stop 06/17/20 at 12:39; Status DC Midazolam HCl (Versed) 2 mg 1X ONCE IV ; Start 06/17/20 at 12:00; Stop 06/17/20 at 12:39; Status DC Magnesium Sulfate/ Dextrose 100 ml @ 100 mls/hr 1X ONCE IV Last administered on 06/17/20at 12:22; Start 06/17/20 at 12:00; Stop 06/17/20 at 12:39; Status DC Buspirone HCl (Buspar) 30 mg Q8H NG Last administered on 06/17/20at 12:31; Start 06/17/20 at 12:00; Stop 06/17/20 at 12:39; Status DC Glycerin/ Hypromellose/ Polyethylene (Artificial Tears) 1 drop Q6HRS OU ; Start 06/17/20 at 12:00; Stop 06/17/20 at 12:39; Status DC Glycerin/ Hypromellose/ Polyethylene (Artificial Tears) 1 drop PRN Q15MIN PRN OU DRY EYE; Start 06/17/20 at 12:00; Stop 06/17/20 at 12:39; Status DC Heparin Sodium (Porcine) (Heparin Sodium) 5,000 unit BID SQ ; Start 06/17/20 at 21:00; Stop 06/17/20 at 12:39; Status DC Pantoprazole Sodium (PROTONIX VIAL for IV PUSH) 40 mg DAILY IVP ; Start 06/18/20 at 09:00; Stop 06/17/20 at 12:39; Status DC Fentanyl Citrate 30 ml @ 0 mls/hr CONT PRN IV PER PROTOCOL.; Start 06/17/20 at 12:00; Stop 06/17/20 at 12:39; Status DC Propofol 100 ml @ 0 mls/hr CONT PRN IV PER PROTOCOL.; Start 06/17/20 at 12:00; Stop 06/17/20 at 12:39; Status DC Midazolam HCl 100 ml @ 0 mls/hr CONT PRN IV PER PROTOCOL; Start 06/17/20 at 12:00; Stop 06/17/20 at 12:39; Status DC Vecuronium Carlton (Norcuron Bolus) 10 mg PRN Q1HR PRN IV SHIVERING; Start 06/17/20 at 12:00; Stop 06/17/20 at 12:39; Status DC Piperacillin Sod/ Tazobactam Sod 4.5 gm/Sodium Chloride 100 ml @ 200 mls/hr 1X ONCE IV ; Start 06/17/20 at 12:15; Stop 06/17/20 at 12:44; Status Cancel Midazolam HCl (Versed) 5 mg Q1HR PRN IV SEDATION Last administered on 06/29/20at 13:48; Start 06/17/20 at 12:45; Stop 07/08/20 at 12:59; Status DC Fentanyl Citrate (Fentanyl 2ml Vial) 100 mcg Q1HR IVP Last administered on at 18:55; Start 06/17/20 at 13:00; Stop 06/17/20 at 23:41; Status DC Piperacillin Sod/ Tazobactam Sod 3.375 gm/Sodium Chloride 50 ml @ 100 mls/hr Q6H IV Last administered on 06/27/20at 05:31; Start 06/17/20 at 16:00; Stop 06/27/20 at 11:30; Status DC Potassium Bicarbonate (Potassium Effervescent Tablet) 40 meq 1X ONCE NG Last administered on 06/18/20at 10:00; Start 06/18/20 at 09:45; Stop 06/18/20 at 09:48; Status DC Albuterol/ Ipratropium (Duoneb) 3 ml RTQID NEB Last administered on 07/24/20at 08:19; Start 06/18/20 at 20:00 Famotidine (Pepcid Vial) 20 mg BID IVP Last administered on 07/02/20at 08:05; Start 06/18/20 at 21:00; Stop 07/02/20 at 10:23; Status DC Enoxaparin Sodium (Lovenox 40mg Syringe) 40 mg Q24H SQ Last administered on 07/23/20at 22:48; Start 06/18/20 at 21:00 Levothyroxine Sodium (Synthroid) 75 mcg DAILY06 PO Last administered on 07/24/20 06:18; Start 06/18/20 at 21:00 Fentanyl Citrate 30 ml @ 0 mls/hr CONT PRN IV SEE PROTOCOL Last administered on 06/28/20at 04:56; Start 06/18/20 at 20:15; Stop 06/29/20 at 11:47; Status DC Carvedilol (Coreg) 3.125 mg BIDWMEALS PO Last administered on 07/24/20at 07:54; Start 06/19/20 at 17:00 Atorvastatin Calcium (Lipitor) 20 mg QHS PO Last administered on 07/23/20at 22:49; Start 06/19/20 at 21:00 Aspirin (Aspirin Chewable) 81 mg DAILYWBKFT PO Last administered on 07/24/20at 07:51; Start 06/20/20 at 08:00 Aspirin (Aspirin Chewable) 81 mg 1X ONCE PO Last administered on 06/19/20at 15:57; Start 06/19/20 at 15:30; Stop 06/19/20 at 15:37; Status DC Potassium Chloride/Water 100 ml @ 100 mls/hr 1X ONCE IV Last administered on 06/19/20at 15:57; Start 06/19/20 at 15:30; Stop 06/19/20 at 16:29; Status DC Amiodarone HCl (Cordarone) 400 mg DAILY PO Last administered on 07/24/20at 07:53; Start 06/20/20 at 09:00 Furosemide (Lasix) 40 mg 1X ONCE IVP Last administered on 06/20/20at 14:38; Start 06/20/20 at 13:30; Stop 06/20/20 at 13:31; Status DC Potassium Chloride/Water 100 ml @ 100 mls/hr 1X ONCE IV Last administered on 06/20/20at 14:39; Start 06/20/20 at 13:30; Stop 06/20/20 at 14:29; Status DC Dexmedetomidine HCl 400 mcg/ Sodium Chloride 100 ml @ 0 mls/hr CONT PRN IV PER PROTOCOL Last administered on 06/29/20at 06:11; Start 06/21/20 at 10:45; Stop 06/29/20 at 11:47; Status DC Sodium Chloride 500 ml @ 500 mls/hr 1X PRN PRN IV SEE COMMENTS; Start 06/21/20 at 10:45 Atropine Sulfate (ATROPINE 0.5mg SYRINGE) 0.5 mg PRN Q5MIN PRN IV SEE COMMENTS; Start 06/21/20 at 10:45; Stop 06/29/20 at 11:47; Status DC Fentanyl Citrate (Fentanyl 2ml Vial) 50 mcg PRN Q2HR PRN IVP PAIN Last administered on 07/19/20at 19:53; Start 06/23/20 at 16:45 Midazolam HCl 100 ml @ 0 mls/hr CONT PRN IV SEE PROTOCOL Last administered on 06/28/20at 03:00; Start 06/25/20 at 11:45; Stop 06/29/20 at 11:47; Status DC Lidocaine HCl (Xylocaine-Mpf 1% 2ml Vial) 2 ml STK-MED ONCE .ROUTE ; Start 06/25/20 at 14:21; Stop 06/25/20 at 14:21; Status DC Iohexol (Omnipaque 300 Mg/ml) 100 ml STK-MED ONCE .ROUTE ; Start 06/25/20 at 14:21; Stop 06/25/20 at 14:21; Status DC Heparin Sodium/ Sodium Chloride 1,000 ml @ As Directed STK-MED ONCE .ROUTE ; Start 06/25/20 at 14:21; Stop 06/25/20 at 14:21; Status DC Heparin Sodium (Porcine) (Heparin Sodium) 10,000 unit STK-MED ONCE .ROUTE ; Start 06/25/20 at 14:31; Stop 06/25/20 at 14:31; Status DC Verapamil HCl (Verapamil) 5 mg STK-MED ONCE .ROUTE ; Start 06/25/20 at 14:31; Stop 06/25/20 at 14:31; Status DC Nitroglycerin (Nitroglycerin) 200 mcg STK-MED ONCE .ROUTE ; Start 06/25/20 at 14:31; Stop 06/25/20 at 14:31; Status DC Nitroglycerin (Nitroglycerin) 200 mcg 1X ONCE IART Last administered on 06/25/20at 15:09; Start 06/25/20 at 15:15; Stop 06/25/20 at 15:16; Status DC Verapamil HCl (Verapamil) 2.5 mg 1X ONCE IART Last administered on 06/25/20at 15:09; Start 06/25/20 at 15:15; Stop 06/25/20 at 15:16; Status DC Heparin Sodium (Porcine) (Heparin Sodium) 2,500 unit 1X ONCE IART Last administered on 06/25/20at 15:09; Start 06/25/20 at 15:15; Stop 06/25/20 at 15:16; Status DC Heparin Sodium/ Sodium Chloride (HEPARIN for ARTERIAL LINE FLUSH) 1,000 unit 1X ONCE IART Last administered on 06/25/20at 15:09; Start 06/25/20 at 15:15; Stop 06/25/20 at 15:16; Status DC Iohexol (Omnipaque 300 Mg/ml) 30 ml 1X ONCE IART Last administered on 06/25/20at 15:09; Start 06/25/20 at 15:15; Stop 06/25/20 at 15:16; Status DC Lidocaine HCl (Xylocaine-Mpf 1% 2ml Vial) 2 ml 1X ONCE INJ Last administered on 06/25/20at 15:09; Start 06/25/20 at 15:15; Stop 06/25/20 at 15:16; Status DC Amino Acids/ Glycerin/ Electrolytes 1,000 ml @ 80 mls/hr [id number] IV Last administered on 06/27/20at 20:50; Start 06/25/20 at 17:30; Stop 06/28/20 at 11:35; Status DC Potassium Chloride/Water 100 ml @ 100 mls/hr Q1H IV Last administered on 06/25/20at 18:46; Start 06/25/20 at 18:00; Stop 06/25/20 at 19:59; Status DC Rocuronium Carlton (Zemuron) 50 mg STK-MED ONCE .ROUTE ; Start 06/26/20 at 11:37; Stop 06/26/20 at 11:38; Status DC Cellulose (Surgicel Fibrillar 1x2) 1 each STK-MED ONCE .ROUTE Last administered on 06/26/20at 13:20; Start 06/26/20 at 12:19; Stop 06/26/20 at 12:19; Status DC Bupivacaine HCl (Sensorcaine Mpf 0.5%) 30 ml STK-MED ONCE .ROUTE ; Start 06/26/20 at 12:19; Stop 06/26/20 at 12:19; Status DC Ondansetron HCl (Zofran) 4 mg STK-MED ONCE .ROUTE ; Start 06/26/20 at 13:13; Stop 06/26/20 at 13:13; Status DC Dexamethasone Sodium Phosphate (Decadron) 4 mg STK-MED ONCE .ROUTE ; Start 06/26/20 at 13:13; Stop 06/26/20 at 13:14; Status DC Cellulose (Surgicel Fibrillar 1x2) 1 each STK-MED ONCE .ROUTE Last administered on 06/26/20at 13:22; Start 06/26/20 at 13:25; Stop 06/26/20 at 13:25; Status DC Sevoflurane (Ultane) 30 ml STK-MED ONCE IH ; Start 06/26/20 at 13:37; Stop 06/26/20 at 13:38; Status DC Propofol (Diprivan) 200 mg STK-MED ONCE IV ; Start 06/26/20 at 13:38; Stop 06/26/20 at 13:38; Status DC Ringer's Solution 1,000 ml @ 30 mls/hr Q24H IV Last administered on 06/27/20at 08:39; Start 06/27/20 at 07:00; Stop 06/27/20 at 18:59; Status DC Prochlorperazine Edisylate (Compazine) 5 mg PACU PRN PRN IV NAUSEA, MRX1; Start 06/27/20 at 07:00; Stop 06/28/20 at 06:59; Status DC Propofol (Diprivan) 200 mg STK-MED ONCE IV ; Start 06/27/20 at 09:53; Stop 06/27/20 at 09:54; Status DC Lidocaine HCl (Lidocaine Pf 2% Vial) 5 ml STK-MED ONCE .ROUTE ; Start 06/27/20 at 09:54; Stop 06/27/20 at 09:54; Status DC Lisinopril (Prinivil) 5 mg DAILY PO Last administered on 07/04/20at 09:23; Start 06/29/20 at 09:00; Stop 07/04/20 at 14:46; Status DC Acetaminophen/ Hydrocodone Bitart (Lortab 7.5-325/ 15ml Oral Solution) 10 ml 1X ONCE PEG Last administered on 06/28/20at 12:37; Start 06/28/20 at 12:30; Stop 06/28/20 at 12:31; Status DC Piperacillin Sod/ Tazobactam Sod 3.375 gm/Sodium Chloride 50 ml @ 100 mls/hr Q6HRS IV Last administered on 07/07/20at 06:11; Start 06/29/20 at 10:00; Stop 07/07/20 at 09:51; Status DC Vecuronium Carlton (Norcuron Bolus) 10 mg STK-MED ONCE IV ; Start 06/29/20 at 14:31; Stop 06/29/20 at 14:31; Status DC Propofol 100 ml @ 0 mls/hr CONT PRN IV PER PROTOCOL Last administered on 07/02/20at 07:26; Start 06/29/20 at 16:30; Stop 07/08/20 at 12:58; Status DC Vecuronium Carlton (Norcuron Bolus) 10 mg 1X ONCE IV Last administered on 06/29/20at 14:31; Start 06/29/20 at 14:31; Stop 06/29/20 at 17:19; Status DC Daptomycin 400 mg/ Sodium Chloride 50 ml @ 100 mls/hr Q24H IV Last administered on 07/04/20at 09:25; Start 06/30/20 at 10:00; Stop 07/05/20 at 08:14; Status DC Famotidine (Pepcid) 20 mg QHS GT Last administered on 07/23/20at 22:50; Start 07/02/20 at 21:00 Haloperidol Lactate (Haldol Inj) 5 mg Q8HRS IVP Last administered on 07/03/20at 06:00; Start 07/02/20 at 14:00; Stop 07/03/20 at 12:40; Status DC Micafungin Sodium 100 mg/Dextrose 100 ml @ 100 mls/hr Q24H IV Last administered on 07/05/20at 08:04; Start 07/03/20 at 09:00; Stop 07/05/20 at 08:14; Status DC Alteplase, Recombinant (Cathflo For Central Catheter Clearance) 1 mg 1X ONCE INT CAT Last administered on 07/03/20at 08:45; Start 07/03/20 at 08:45; Stop 07/03/20 at 08:46; Status DC Haloperidol Lactate (Haldol Inj) 2.5 mg PRN Q6HRS PRN IVP AGITATION; Start 07/03/20 at 12:30; Stop 07/03/20 at 12:40; Status DC Haloperidol Lactate (Haldol Inj) 2.5 mg PRN Q6HRS PRN IVP AGITATION Last administered on 07/04/20at 01:04; Start 07/03/20 at 14:00; Stop 07/04/20 at 08:04; Status DC Haloperidol Lactate (Haldol Inj) 2.5 mg Q8HRS IVP ; Start 07/04/20 at 10:00; Stop 07/04/20 at 08:15; Status DC Haloperidol Lactate (Haldol Inj) 2.5 mg PRN Q8HRS PRN IVP AGITATION; Start 07/04/20 at 08:15; Stop 07/05/20 at 10:35; Status DC Lisinopril (Prinivil) 20 mg BID PO Last administered on 07/24/20at 07:53; Start 07/04/20 at 21:00 Haloperidol (Haldol) 0.5 mg PRN Q8HRS PRN PO AGITATION-2ND CHOICE Last administered on 07/12/20at 16:13; Start 07/05/20 at 10:45 Acetaminophen (Tylenol) 650 mg PRN Q6HRS PRN PO MILD PAIN / TEMP > 100.3'F Last administered on 07/22/20at 20:48; Start 07/06/20 at 13:30 Amoxicillin/ Clavulanate Potassium (Augmentin 875/ 125mg) 1 tab BID PO Last administered on 07/11/20at 19:59; Start 07/07/20 at 21:00; Stop 07/12/20 at 09:57; Status DC Diphenhydramine HCl (Benadryl Oral Elixir) 25 mg PRN Q6HRS PRN PEG ITCHING Last administered on 07/23/20at 22:48; Start 07/10/20 at 19:15 Lorazepam (Ativan Inj) 1 mg PRN Q6HRS PRN IVP ANXIETY / AGITATION Last administered on 07/11/20at 05:21; Start 07/11/20 at 05:15; Stop 07/11/20 at 09:07; Status DC Zolpidem Tartrate (Ambien) 2.5 mg HS PO Last administered on 07/11/20at 19:52; Start 07/11/20 at 21:00; Stop 07/12/20 at 09:57; Status DC Diphenhydramine HCl (Benadryl) 50 mg PRN Q6HRS PRN IVP itching/insomina Last administered on 07/20/20at 20:06; Start 07/12/20 at 01:00 Haloperidol Lactate (Haldol Inj) 5 mg PRN Q6HRS PRN IVP AGITATION Last admin istered on 07/14/20at 00:49; Start 07/12/20 at 01:00 Zolpidem Tartrate (Ambien) 5 mg HS PO Last administered on 07/14/20at 21:28; Start 07/12/20 at 21:00; Stop 07/15/20 at 10:51; Status DC Lorazepam (Ativan) 1 mg PRN Q6HRS PRN PO ANXIETY / AGITATION Last administered on 07/13/20at 01:45; Start 07/12/20 at 10:00; Stop 07/14/20 at 10:49; Status DC Fluconazole (Diflucan) 150 mg 1X ONCE PO ; Start 07/12/20 at 16:30; Stop 07/12/20 at 16:31; Status Cancel Clotrimazole (Mycelex-7) 1 reji HS VG Last administered on 07/18/20at 21:29; Start 07/12/20 at 21:00; Stop 07/19/20 at 20:59; Status DC Potassium Bicarbonate (Potassium Effervescent Tablet) 30 meq 1X ONCE PEG Last administered on 07/13/20at 09:43; Start 07/13/20 at 09:00; Stop 07/13/20 at 09:01; Status DC Sodium Chloride 1,000 ml @ 1,000 mls/hr 1X ONCE IV Last administered on 07/13/20at 12:02; Start 07/13/20 at 12:00; Stop 07/13/20 at 12:59; Status DC Haloperidol Lactate (Haldol Inj) 2 mg 1X ONCE IVP Last administered on 07/13/20at 12:03; Start 07/13/20 at 12:00; Stop 07/13/20 at 12:01; Status DC Neomycin/ Polymyxin/ Bacitracin (Triple Antibiotic Ointment) 1 pkt BID TP Last administered on 07/24/20at 07:51; Start 07/14/20 at 15:00 Potassium Bicarbonate (Potassium Effervescent Tablet) 20 meq BID PEG Last adm inistered on 07/24/20at 07:51; Start 07/15/20 at 14:00 Haloperidol (Haldol) 5 mg HS PEG Last administered on 07/18/20at 21:26; Start 07/17/20 at 21:00; Stop 07/19/20 at 18:43; Status DC Haloperidol (Haldol) 2.5 mg HS PEG Last administered on 07/23/20at 22:49; Start 07/19/20 at 21:00 Active Scripts Active Reported Acetaminophen-Diphenhyd 500-25 (Acetaminophen/Diphenhydramine) 1 Each Tablet 1 Each PO HS PRN Naproxen 500 Mg Tablet 1 Tab PO BID PRN 30 Days Tramadol Hcl 50 Mg Tablet 50 Mg PO Q4HRS Levothyroxine Sodium 75 Mcg Tablet 1 Tab PO DAILY Adderall 20 Mg Tablet (Dextroamphetamine/Amphetamine) 20 Mg Tablet 1 Tab PO DAILY MDD 1 Tablet(s) 5 Days Prozac (Fluoxetine Hcl) 20 Mg Capsule 1 Cap PO DAILYWBKFT Vitals/I & O Vital Sign - Last 24 Hours 07/23/20 07/23/20 07/23/20 07/23/20 10:30 10:31 10:32 11:00 Temp 98.5 98.5 Pulse 113 113 113 112 Resp 18 B/P (MAP) 141/112 141/112 141/112 141/112 (122) Pulse Ox 97 O2 Delivery Room Air 07/23/20 07/23/20 07/23/20 07/23/20 12:32 15:00 18:45 19:00 Temp 97.3 97.0 97.3 97.0 Pulse 92 92 94 Resp 18 20 B/P (MAP) 125/77 (93) 125/77 126/66 (86) Pulse Ox 97 97 O2 Delivery Room Air 07/23/20 07/23/20 07/23/20 07/23/20 19:45 21:08 22:49 23:00 Temp 97.5 97.5 Pulse 94 90 Resp 18 B/P (MAP) 126/66 143/75 (97) Pulse Ox 99 93 O2 Delivery Room Air Room Air 07/24/20 07/24/20 07/24/20 07/24/20 03:00 07:00 07:53 07:53 Temp 97.6 97.6 97.6 97.6 Pulse 92 89 89 89 Resp 16 18 B/P (MAP) 119/57 (77) 116/72 (87) 116/72 116/72 Pulse Ox 95 96 07/24/20 07/24/20 07:54 08:21 Pulse 89 B/P (MAP) 116/72 Pulse Ox 97 O2 Delivery Room Air Intake and Output 07/23/20 07/23/20 07/24/20 15:00 23:00 07:00 Intake Total 880 ml 1320 ml Output Total 1 ml Balance 880 ml 1320 ml -1 ml Justicifation of Admission Dx: Justifications for Admission: Justification of Admission Dx: N/A JEFF FLORES MD Jul 24, 2020 10:16
--- NOTE | 2020-07-24 10:22 | NUR ---
SHIKHA following for discharge planning. Spoke with RN and reviewed chart. SHIKHA faxed updated clinicals to Brian with [facility]. SHIKHA spoke with Trini in admissions with [facility] and there are no beds available today. Trini to call this SHIKHA back with an update on status of bed availability. SHIKHA following. Addendum: 07/24/20 at 1502 by REMA TRIVEDI Trini called to say they have a bed for pt at [facility] today. Spoke with spouse who is agreeable. SHIKHA requested discharge orders. Discharge orders faxed. RN to call report. Stretcher transport arranged for [id number]. Spouse notified of discharge time. Clinicals ready to be sent with pt. No further SHIKHA needs at this time.
[2020-07-24 11:00] VITALS: BP 128/81
[2020-07-24] MEDS ORDERED: LISI-130 PO (14:39)
[2020-07-24] MEDS ORDERED: CARV3.1210 PO (14:39)
[2020-07-24] MEDS ORDERED: AMIO200T6 PO (14:39)
[2020-07-24] MEDS ORDERED: ASPI-630 PO (14:39)
[2020-07-24] MEDS ORDERED: ATOR20TA58 PO (14:39)
--- NOTE | 2020-07-24 14:42 | SNU/HH DC ---
DISCHARGE ORDERS DISCHARGE INFORMATION: DISCHARGE DATE: Jul 24, 2020 FINAL DIAGNOSIS Problems Medical Problems: (1) Cardiac arrest Status: Acute (2) Fracture of ribs, multiple Status: Acute (3) Hyperglycemia Status: Acute (4) Pneumonia Status: Acute (5) Pneumothorax, right Status: Acute (6) Sternal fracture Status: Acute (7) VF (ventricular fibrillation) Status: Acute CONDITION ON DISCHARGE: Stable CODE STATUS: Code Status: Full FCI: SNF STAY <30 DAYS: Yes POST DISCHARGE ORDERS: ACTIVITY ORDERS: Activity as tolerated DIET AFTER DISCHARGE: Cardiac OTHER ORDERS: PT OT and speech modalities CHECKS AFTER DISCHARGE: CHECKS AFTER DISCHARGE: Check blood press - daily FOLLOW-UP: PHYSICIAN FOLLOW-UP: PCP within 2 weeks of discharge LAB ORDERS FOR FOLLOW-UP: CBC, CMP within 2 weeks TREATMENT/EQUIPMENT ORDERS: Physical Therapy For: Evalulation/Treatment Occupational Therapy For: Evaluation/Treatment Speech Language Pathology For: Evaluation/Treatment DISCHARGE MEDICATIONS: Home Meds Active Scripts Aspirin (ASPIRIN) 81 Mg Tab.chew, 81 MG PO DAILYWBKFT for heart protection for 30 Days, #30 TAB.CHEW Prov:SUZANNE MCADAMS MD 07/24/20 Lisinopril (LISINOPRIL) 40 Mg Tablet, 20 MG PO BID for blood pressure for 30 Days, #30 TAB Prov:SUZANNE MCADAMS MD 07/24/20 Carvedilol (CARVEDILOL ) 3.125 Mg Tablet, 3.125 MG PO BIDWMEALS for heart rate for 30 Days, #60 TAB Prov:SUZANNE MCADAMS MD 07/24/20 Atorvastatin Calcium (ATORVASTATIN CALCIUM) 20 Mg Tablet, 20 MG PO QHS for chol esterol for 30 Days, #30 TAB Prov:SUZANNE MCADAMS MD 07/24/20 Amiodarone Hcl (AMIODARONE HCL) 200 Mg Tablet, 400 MG PO DAILY for heart rhythm for 30 Days, #60 TAB Prov:SUZANNE MCADAMS MD 07/24/20 Reported Medications Acetaminophen/Diphenhydramine (ACETAMINOPHEN-DIPHENHYD 500-25) 1 Each Tablet, 1 EACH PO HS PRN for sleep, TAB 06/18/20 Naproxen (NAPROXEN) 500 Mg Tablet, 1 TAB PO BID PRN for PAIN for 30 Days, #60 TAB 0 Refills 06/18/20 Tramadol Hcl (TRAMADOL HCL) 50 Mg Tablet, 50 MG PO Q4HRS for pain, TAB 06/18/20 Levothyroxine Sodium (LEVOTHYROXINE SODIUM) 75 Mcg Tablet, 1 TAB PO DAILY for hypothyroid, #30 TAB 5 Refills 06/18/20 Dextroamphetamine/Amphetamine (ADDERALL 20 MG TABLET) 20 Mg Tablet, 1 TAB PO DAILY for hyperactivity MDD 1 Tablet(s) for 5 Days, #5 TAB 0 Refills 06/18/20 Fluoxetine Hcl (PROZAC) 20 Mg Capsule, 1 CAP PO DAILYWBK for depression/mood, #30 CAP 1 Refill 06/18/20 SUZANNE MCADAMS MD Jul 24, 2020 14:42
[2020-07-24 15:00] VITALS: BP 134/89
[2020-07-24 17:40] VITALS: BP 134/89
--- NOTE | 2020-07-26 17:24 | PDOC3 ---
[facility]-Discharge Summary Date of Admission: Date of Admission: Jul 10, 2020 Date of Discharge: Date of Discharge: Jul 24, 2020 Discharge Diagnosis: Discharge Diagnosis: POST covid cardiomyopathy acute systolic CHF Severe NICM: EF 25%. No significant CAD per [facility] anoxic brain injury Cardiac arrest with resuscitation and probable pneumonia, sternal fracture and pneumothorax secondary to CPR, leukocytosis, electrolyte disturbance, hypokalemia, lactic acidosis, elevated troponin. Trach 06/26/20, PEG on 06/27/20 Hospital Course: Hospital Course: Day of discharge, patient was clinically stable and participating well with PT/OT. She will continue her rehab modalities at [facility]. Rest of the hospital course was uneventful. 07/23/2020 No major events overnight. Patient working with PT OT and working on transfers out of the wheelchair. Patient's chart, labs, images were reviewed and discussed with RN 2-7 no acute events reported overnight, case discussed with nursing staff patient in no acute distress no complaints during my visit 2-6 patient seems to have had better sleep with increasing Haldol. No acute events reported overnight patient resting comfortably during my visit still waiting for placement 2-5 no new events, she did not sleep as well as the night before. 2-4 no acute events reported overnight pretty much status quo still waiting for disposition 2-3 patient resting comfortably today she fell asleep around 3:00 in the morning as per nursing staff. She received Haldol yesterday instead of Ambien, we have discussed allowing patient to sleep in the evening time and to avoid excessive stimulation during the evening hours. Awaiting for case management for an update regarding disposition 2-2 patient seems to be status quo, unfortunately is having a tough time with the loss of his partner. He understands that he cannot take care of her at home and we are awaiting for case management to provide us with a viable option moving forward 2-1 no acute events reported overnight, case discussed with nursing staff patient in no acute distress no complaints during my visit, hopefully we can start the process of discharge she will certainly need transitioning to an institution unlikely to be able to be cared for at home since she requires full- time care 1-31 trach removed d/w DR Aguiar have stopped iv ativan yesterday, SAID YES TO when asked about some remote memories 1-30 DC Ativan, use Haldol appears less agitated d/w in room Trach 06/26/20, PEG on 06/27/20 D/W IN ROOM, SHE IS NOW TRACKING AT TIMES 07/13 MOVING BOTH LEGS AND ARMS without apparent purpose, family working on placement barriers , HYPOKALEMIC, ON REPLACEMENT D/W RN, ALSO VAG CANDIDIASIS, ON MONISTAT VAG CREAM D/W RN 07/09 S/P cardiac arrest 06/17 S/P trach on 06/26 ----- S/P peg 06/27 NO PURPOSEFUL movement D/W security guard dispatcher wants to try 1 month at long-term acute [facility] Transfer to long-term care, denied by all facilities contacted to date d/w rn 07/08: Patient seen and evaluated with at bedside. No significant change overnight, still no purposeful movements. Sounds as though family still plans to hold off on any change in CODE STATUS or goals of care until at least 30 days after admission date. did show me some video of patient smiling and having meaningful exchange with a family friend today. 07/07. Transfer out of ICU to the medical floors. Discussed with , he feels that music is helping patient. She will occasionally check in with eyes, but no purposeful movements. Has been mentioned trying to give 30 days for admission to show any signs of meaningful improvement. At which time decision will be made about hospice in future goals of care. 07/06, will transfer to floor, no tele, off vent now for some time. discussed with , she does seem improved, she had a tiny smile to some music earlier, still not following commands or any purposeful response 07/05, about the same, discussed my previous thoughts again with and son, not following commands, movement is seeming to be mostly reflexive. they still want to cont iwth the 30 days plan to give her a chance to improve. I discussed possible transition to hospice, they want to wait until that time. 07/04-, minmal change, some relfexive movements, had a video of her withdrawing to light touch to face, soem work with PT, not following commands as directed I discussed poor prognosis with at length, that as days go by, her chances for meaningful recovery continue to dim. I discussed consideration of hospice care. 07/03/2020, discussed plan with family at length yesterday Patient seen and examined in the ICU 59-year-old female who had COVID-19 two months ago. She had a witnessed cardiac arrest today. The family started CPR, they called the ambulance. She has now been resuscitated and intubated Disposition: Disposition/Orders: D/C to Home Activity: Activity: Resume previous activity Diet: Diet: Soft, Cardiac Medications: Home Meds Active Scripts Aspirin (ASPIRIN) 81 Mg Tab.chew, 81 MG PO DAILYWBKFT for heart protection for 30 Days, #30 TAB.CHEW Prov:SUZANNE MCADAMS MD 07/24/20 Lisinopril (LISINOPRIL) 40 Mg Tablet, 20 MG PO BID for blood pressure for 30 Days, #30 TAB Prov:SUZANNE MCADAMS MD 07/24/20 Carvedilol (CARVEDILOL ) 3.125 Mg Tablet, 3.125 MG PO BIDWMEALS for heart rate for 30 Days, #60 TAB Prov:SUZANNE MCADAMS MD 07/24/20 Atorvastatin Calcium (ATORVASTATIN CALCIUM) 20 Mg Tablet, 20 MG PO QHS for cholesterol for 30 Days, #30 TAB Prov:SUZANNE MCADAMS MD 07/24/20 Amiodarone Hcl (AMIODARONE HCL) 200 Mg Tablet, 400 MG PO DAILY for heart rhythm for 30 Days, #60 TAB Prov:SUZANNE MCADAMS MD 07/24/20 Reported Medications Acetaminophen/Diphenhydramine (ACETAMINOPHEN-DIPHENHYD 500-25) 1 Each Tablet, 1 EACH PO HS PRN for sleep, TAB 06/18/20 Naproxen (NAPROXEN) 500 Mg Tablet, 1 TAB PO BID PRN for PAIN for 30 Days, #60 TAB 0 Refills 06/18/20 Tramadol Hcl (TRAMADOL HCL) 50 Mg Tablet, 50 MG PO Q4HRS for pain, TAB 06/18/20 Levothyroxine Sodium (LEVOTHYROXINE SODIUM) 75 Mcg Tablet, 1 TAB PO DAILY for hypothyroid, #30 TAB 5 Refills 06/18/20 Dextroamphetamine/Amphetamine (ADDERALL 20 MG TABLET) 20 Mg Tablet, 1 TAB PO DAILY for hyperactivity MDD 1 Tablet(s) for 5 Days, #5 TAB 0 Refills 06/18/20 Fluoxetine Hcl (PROZAC) 20 Mg Capsule, 1 CAP PO DAILYWBKFT for depression/mood, #30 CAP 1 Refill 06/18/20 Scheduled Amiodarone Hcl (Amiodarone Hcl), 400 MG PO DAILY Aspirin (Aspirin), 81 MG PO DAILYWBKFT Atorvastatin Calcium (Atorvastatin Calcium), 20 MG PO QHS Carvedilol (Carvedilol ), 3.125 MG PO BIDWMEALS Dextroamphetamine/Amphetamine (Adderall 20 Mg Tablet), 1 TAB PO DAILY, (Reported) Fluoxetine Hcl (Prozac), 1 CAP PO DAILYWBKFT, (Reported) Levothyroxine Sodium (Levothyroxine Sodium), 1 TAB PO DAILY, (Reported) Lisinopril (Lisinopril), 20 MG PO BID Tramadol Hcl (Tramadol Hcl), 50 MG PO Q4HRS, (Reported) Scheduled PRN Acetaminophen/Diphenhydramine (Acetaminophen-Diphenhyd 500-25), 1 EACH PO HS PRN for sleep, (Reported) Naproxen (Naproxen), 1 TAB PO BID PRN for PAIN, (Reported) Total Time: Total Time: Total time spent was 50 minutes in preparing scripts, discharge planning with SW and RN, and preparing this discharge summary. Patient seen and examined on day of discharge. Justicifation of Admission Dx: Justifications for Admission: Justification of Admission Dx: N/A SUZANNE MCADAMS MD Jul 26, 2020 17:23
== END 2020-07-24 19:10 | DRG 4 ==
LOC: ER 06:43 → ED HOLD 08:51 → 1 WEST ICU 23:00 → 5 NORTH 07-06 14:46
PROVIDERS: ADMIT Internal Medicine; ATTEND Internal Medicine
PROC: 5A1955Z Respiratory Ventilation, Greater than 96 Consecutive Hours (ICD-10-PCS; 2020-06-17)
PROC: 0BH17EZ Insertion of Endotracheal Airway into Trachea, Via Natural or Artificial Opening (ICD-10-PCS; 2020-06-17)
PROC: 4A023N7 Measurement of Cardiac Sampling and Pressure, Left Heart, Percutaneous Approach (ICD-10-PCS; 2020-06-25)
PROC: B2111ZZ Fluoroscopy of Multiple Coronary Arteries using Low Osmolar Contrast (ICD-10-PCS; 2020-06-25)
PROC: 0B113F4 Bypass Trachea to Cutaneous with Tracheostomy Device, Percutaneous Approach (ICD-10-PCS; 2020-06-27)
PROC: 0DH63UZ Insertion of Feeding Device into Stomach, Percutaneous Approach (ICD-10-PCS; principal; 2020-06-27 10:30)
PROC: 5A1935Z Respiratory Ventilation, Less than 24 Consecutive Hours (ICD-10-PCS; 2020-07-04)
PROC: 5A1935Z Respiratory Ventilation, Less than 24 Consecutive Hours (ICD-10-PCS; 2020-07-05)
PROC: 5A1935Z Respiratory Ventilation, Less than 24 Consecutive Hours (ICD-10-PCS; 2020-07-06)
PROC: 5A1935Z Respiratory Ventilation, Less than 24 Consecutive Hours (ICD-10-PCS; 2020-07-07)
PROC: 5A1935Z Respiratory Ventilation, Less than 24 Consecutive Hours (ICD-10-PCS; 2020-07-08)
PROC: 5A1935Z Respiratory Ventilation, Less than 24 Consecutive Hours (ICD-10-PCS; 2020-07-09)
PROC: 5A1935Z Respiratory Ventilation, Less than 24 Consecutive Hours (ICD-10-PCS; 2020-07-10)
PROC: 5A1935Z Respiratory Ventilation, Less than 24 Consecutive Hours (ICD-10-PCS; 2020-07-11)
PROC: 5A1935Z Respiratory Ventilation, Less than 24 Consecutive Hours (ICD-10-PCS; 2020-07-12)
PROC: 5A1935Z Respiratory Ventilation, Less than 24 Consecutive Hours (ICD-10-PCS; 2020-07-13)
PROC: 5A1935Z Respiratory Ventilation, Less than 24 Consecutive Hours (ICD-10-PCS; 2020-07-14)
PROC: 5A1935Z Respiratory Ventilation, Less than 24 Consecutive Hours (ICD-10-PCS; 2020-07-15)
DX: J96.00 Acute respiratory failure, unspecified whether with hypoxia or hypercapnia (principal); I63.9 Cerebral infarction, unspecified; I46.2 Cardiac arrest due to underlying cardiac condition; I49.01 Ventricular fibrillation; I50.23 Acute on chronic systolic (congestive) heart failure; S22.22XA Fracture of body of sternum, initial encounter for closed fracture; S22.41XA Multiple fractures of ribs, right side, initial encounter for closed fracture; E87.2 Acidosis; G93.1 Anoxic brain damage, not elsewhere classified; I42.8 Other cardiomyopathies; I47.2 Ventricular tachycardia; J98.11 Atelectasis; N39.0 Urinary tract infection, site not specified; R57.9 Shock, unspecified; S27.0XXA Traumatic pneumothorax, initial encounter; B33.24 Viral cardiomyopathy; D64.9 Anemia, unspecified; E03.9 Hypothyroidism, unspecified; E66.01 Morbid (severe) obesity due to excess calories; E78.5 Hyperlipidemia, unspecified; E87.6 Hypokalemia; Z20.822 Contact with and (suspected) exposure to COVID-19; F12.90 Cannabis use, unspecified, uncomplicated; F90.9 Attention-deficit hyperactivity disorder, unspecified type; I11.0 Hypertensive heart disease with heart failure; K59.00 Constipation, unspecified; R13.10 Dysphagia, unspecified; Z87.891 Personal history of nicotine dependence; Z83.3 Family history of diabetes mellitus; Z82.49 Family history of ischemic heart disease and other diseases of the circulatory system; Z80.9 Family history of malignant neoplasm, unspecified
CPT/HCPCS: 31720; 32551; 36415; 36556; 36600; 43246; 51702; 70450; 70496; 70498; 71045; 71275; 80048; 80053; 80061; 80307; 81001; 82550; 82805; 82962; 83605; 83735; 83880; 84100; 84484; 85007; 85025; 85027; 85379; 85610; 85730; 87040; 87070; 87071; 87075; 87077; 87086; 92950; 93005; 93306; 93458; 94002; 94003; 94640; 94760; 96365; 96367; 96368; 99152; 99153; C1769; C1892; J0282; J0878; J1100; J1200; J1630; J1644; J1650; J1940; J2060; J2248; J2250; J2405; J2543; J2704; J2997; J3010; J3475; J3480; J3490; J7030; J7060; J7120; Q9967; U0003; 92523-GN; 97110-GO; 97110-GP; 97530-GO; 97530-GP; 97535-GO; 99291-25; G0378

== ENCOUNTER 2020-08-01 17:30 | Emergency (ER) | payer OTHER ==
[~2020-08-01] VITALS: Ht 165.1 cm; Wt 78.1 kg
[~2020-08-01 17:30] MED LIST: ACET-1797 PO; AMIO200T6 PO; ASPI-630 PO; ATOR20TA58 PO; CARV3.1210 PO; DEXT20TA2 PO; FLUO20CA16 PO; LEVO75TA5 PO; LISI-130 PO; NAPR-514 PO; TRAM50TA PO
[2020-08-01] MEDS ORDERED: IOHEXOL 240 MG/ML 50ML VIAL. PO ONE (18:00)
[2020-08-01] MEDS ORDERED: CONTRAST GIVEN. MC PRN (18:00)
[2020-08-01 18:30] LABS: BASO # 0.1 x10^3/uL (0.0-0.2); BASO % 0 % (0-3); EOS # 0.3 x10^3/uL (0.0-0.7); EOS % 2 % (0-3); HEMATOCRIT 35.3 % (36.0-47.0); HEMOGLOBIN 11.4 g/dL (12.0-15.5); LYMPH # 2.1 x10^3/uL (1.0-4.8); LYMPH % 15 % (24-48); MEAN CORPUSCULAR HEMOGLOBIN 29 pg (25-35); MEAN CORPUSCULAR HGB CONC 32 g/dL (31-37); MEAN CORPUSCULAR VOLUME 90 fL (79-100); MONO % 7 % (0-9); NEUT # 11.1 x10^3/uL (1.8-7.7); NEUT % 76 % (31-73); PLATELET COUNT 311 x10^3/uL (140-400); RED BLOOD COUNT 3.92 x10^6/uL (3.50-5.40); RED CELL DISTRIBUTION WIDTH 14.6 % (11.5-14.5); WHITE BLOOD COUNT 14.6 x10^3/uL (4.0-11.0)
[2020-08-01] MEDS ORDERED: FAMOTIDINE 20 MG/2 ML VIAL IVP ONE (18:30)
[2020-08-01] MEDS ORDERED: HALOPERIDOL LACTATE 5 MG/ML VIAL. IVP ONE ×2 (18:30)
[2020-08-01] MEDS ORDERED: IV NORMAL SALINE 1000ML BAG 1,000 ML IV ONE (18:30)
[2020-08-01] MEDS ORDERED: diphenhydrAMINE 50 MG/ML VIAL IVP ONE (18:30)
--- NOTE | 2020-08-01 18:36 | RAD ---
XR ABDOMEN 1V Clinical Indication: Reason: PEG TUBE PLACEMENT 40 CC Omnipaque 240 was used Comparison: [facility], [facility], July 28, 2020. Findings: Technologist instilled 40 cc of Omnipaque 240 contrast into PEG tube. The PEG tube is in the distal s tomach. Contrast outlines the stomach. There is no extravasation to suggest leak. Similar to prior st udy contrast is also seen throughout the visualized colon. No obvious opacity in the lung bases. Card iac size is normal. Bones appear stable. IMPRESSION: PEG tube in appropriate position. Electronically signed by: Terence Briscoe MD (08/01/2020 6:33 PM) [facility]
[2020-08-01 18:42] LABS: CALCIUM 9.2 mg/dL (8.5-10.1); CREATININE 0.9 mg/dL (0.6-1.0); GFR 64.5; POTASSIUM 5.1 mmol/L (3.5-5.1)
[2020-08-01 18:48] LABS: ALBUMIN 2.8 g/dL (3.4-5.0); ALBUMIN/GLOBULIN RATIO 0.7 (1.0-1.7); TOTAL BILIRUBIN 0.4 mg/dL (0.2-1.0); TOTAL PROTEIN 6.9 g/dL (6.4-8.2)
[2020-08-01 19:55] VITALS: BP 119/54
--- NOTE | 2020-08-01 19:56 | RAD ---
PQRS Compliance Statement: One or more of the following individualized dose reduction techniques were utilized for this examinat ion: 1. Automated exposure control 2. Adjustment of the mA and/or kV according to patient size 3. Use of iterative reconstruction technique CT HEAD WITHOUT CONTRAST History: Reason: ALTERED MENTAL STATUS, ON HOLD, PT UNCOOPERATIVE : Comparison: CT head without contrast June 17, 2020. Procedure: Axial images are obtained of the head from the skull base through the vertex without IV co ntrast. Findings: The ventricles and sulci are normal for the patient's age. Stable incidental left choroidal fissure c yst. No mass-effect, midline shift, hemorrhage, extra-axial fluid collection, or obvious acute infarction is identified. Basilar cisterns are patent. Bone windows demonstrate no acute calvarial abnormality. The visualized paranasal sinuses are clear. Mastoid air cells are well aerated. IMPRESSION: No acute intracranial abnormality. Electronically signed by: Terence Briscoe MD (08/01/2020 7:54 PM) [facility]
--- NOTE | 2020-08-01 20:37 | PHYS DOC ---
Past Medical History Past Medical History: Hypertension, Hypothyroid Additional Past Medical Histor: CARDIOMYOPATHY,ANOXIC ENCEPHALOPATHY,PEG PL ACEMENT Past Surgical History: Other Additional Past Surgical Histo: TOE REMOVAL R FOOT UNKNOWN WHY Smoking Status: Former Smoker Alcohol Use: None General Adult EDM: Chief Complaint: OTHER COMPLAINTS HPI: HPI: Patient is a 59 year old female reports to the emergency department via EMS. Patient is nonverbal related to an anoxic brain injury status post cardiac arrest in June 172020. HPI limited, was given by EMS clinical data abstractor report. EMS clinical data abstractor reports they have transported the patient for the third time since this Thursday for PEG tube problems related to this patient. Case Repairer reports transferring this patient at 2 different episodes to [facility] for PEG tube replacement. Case Repairer reports the employees at [facility] where the patient resides claim to have obtained a x-ray stating the PEG tube was not in place. Patient was transported here for this reason. Case Repairer also states that a friend of the patient believes that the patient is having decreased mental status however staff at [facility] report this is baseline for the patient. Review of Systems: Review of Systems: 14 body systems of review of systems have been reviewed. See HPI for pertinent positives and negative responses, otherwise all other systems are negative, non pertinent or noncontributory. Note: Review of systems limited to clinical data abstractor report. Heart Score: Risk Factors: Risk Factors: DM, Current or recent (<one month) smoker, HTN, HLP, family history of CAD, obesity. Risk Scores: Score 0 - 3: 2.5% MACE over next 6 weeks - Discharge Home Score 4 - 6: 20.3% MACE over next 6 weeks - Admit for Clinical Observation Score 7 - 10: 72.7% MACE over next 6 weeks - Early Invasive Strategies Current Medications: Current Medications Medications (Trade) Dose Ordered Sig/Rosalio Start Time Stop Time Status Last Admin Dose Admin Diphenhydramine HCl (Benadryl) 50 mg 1X ONCE 08/01/20 18:30 08/01/20 18:31 DC 08/01/20 18:49 50 MG Famotidine (Pepcid Vial) 40 mg 1X ONCE 08/01/20 18:30 08/01/20 18:31 DC 08/01/20 18:52 40 MG Haloperidol Lactate (Haldol Inj) 5 mg 1X ONCE 08/01/20 18:30 2/17/21 18:31 DC 08/01/20 18:49 5 MG Info (CONTRAST GIVEN -- Rx MONITORING) 1 each PRN DAILY PRN 08/01/20 18:00 08/03/20 17:59 Iohexol (Omnipaque 240 Mg/ml) 50 ml 1X ONCE 08/01/20 18:00 08/01/20 18:01 DC Lorazepam (Ativan Inj) 1 mg 1X ONCE 08/01/20 19:30 08/01/20 19:31 DC Sodium Chloride 1,000 ml @ 1,000 mls/hr 1X ONCE 08/01/20 18:30 08/01/20 19:29 DC 08/01/20 18:52 1,000 MLS/HR Allergies: Allergies: Allergies Coded Allergies Type Severity Reaction Last Updated Verified No Known Drug Allergies 06/27/20 No Physical Exam: PE: Constitutional: Well developed, well nourished, nontoxic in appearance, patient moving extremities without purpose, nonverbal, makes no purposeful response to questions. HENT: Normocephalic, atraumatic, bilateral external ears normal, oropharynx moist, no oral exudates, nose normal. Eyes: PERRLA, EOMI, conjunctiva normal, no discharge. Patient does squeeze eyelids shot when attempting ocular exam, 6 cardinal movements not appreciated. Neck: Normal range of motion, no tenderness, supple, no stridor. Cardiovascular:Heart rate regular rhythm, no murmur, heart sounds S1-S2. Lungs & Thorax: Bilateral breath sounds clear to auscultation all lung spaulding. Abdomen: Bowel sounds normal, soft, no tenderness, no masses, no pulsatile masses. Skin: Warm, dry, no erythema, erythematous rash to abdomen, upper extremities, axilla, and underneath breasts. Rash is nonweeping. Back: No tenderness, no CVA tenderness. Extremities: No tenderness, no cyanosis, no clubbing, ROM intact, no edema. Neurologic: Patient awake, moving all extremities without purpose, nonverbal, does withdraw to painful stimuli. Does not follow verbal commands Psychologic: Deferred related to patient's nonverbal state. Current Patient Data: Labs: Laboratory Tests Test 08/01/20 18:15 White Blood Count 14.6 x10^3/uL Red Blood Count 3.92 x10^6/uL Hemoglobin 11.4 g/dL Hematocrit 35.3 % Mean Corpuscular Volume 90 fL Mean Corpuscular Hemoglobin 29 pg Mean Corpuscular Hemoglobin Concent 32 g/dL Red Cell Distribution Width 14.6 % Platelet Count 311 x10^3/uL Neutrophils (%) (Auto) 76 % Lymphocytes (%) (Auto) 15 % Monocytes (%) (Auto) 7 % Eosinophils (%) (Auto) 2 % Basophils (%) (Auto) 0 % Neutrophils # (Auto) 11.1 x10^3/uL Lymphocytes # (Auto) 2.1 x10^3/uL Monocytes # (Auto) 1.0 x10^3/uL Eosinophils # (Auto) 0.3 x10^3/uL Basophils # (Auto) 0.1 x10^3/uL Sodium Level 133 mmol/L Potassium Level 5.1 mmol/L Chloride Level 98 mmol/L Carbon Dioxide Level 27 mmol/L Anion Gap 8 Blood Urea Nitrogen 45 mg/dL Creatinine 0.9 mg/dL Estimated GFR (Cockcroft-Gault) 64.5 BUN/Creatinine Ratio 50 Glucose Level 91 mg/dL Lactic Acid Level 1.1 mmol/L Calcium Level 9.2 mg/dL Total Bilirubin 0.4 mg/dL Aspartate Amino Transf (AST/SGOT) 53 U/L Alanine Aminotransferase (ALT/SGPT) 70 U/L Alkaline Phosphatase 82 U/L Total Protein 6.9 g/dL Albumin 2.8 g/dL Albumin/Globulin Ratio 0.7 Current Medications Medications (Trade) Dose Ordered Sig/Rosalio Route PRN Reason Start Time Stop Time Status Last Admin Dose Admin Iohexol (Omnipaque 240 Mg/ml) 50 ml 1X ONCE PO 08/01/20 18:00 08/01/20 18:01 DC Info (CONTRAST GIVEN -- Rx MONITORING) 1 each PRN DAILY PRN MC SEE COMMENTS 08/01/20 18:00 08/01/20 21:49 DC Haloperidol Lactate (Haldol Inj) 5 mg 1X ONCE IVP 08/01/20 18:30 08/01/20 18:31 DC 08/01/20 18:53 Haloperidol Lactate (Haldol Inj) 5 mg 1X ONCE IVP 08/01/20 18:30 08/01/20 18:31 DC 08/01/20 18:49 Diphenhydramine HCl (Benadryl) 50 mg 1X ONCE IVP 08/01/20 18:30 08/01/20 18:31 DC 08/01/20 18:49 Famotidine (Pepcid Vial) 40 mg 1X ONCE IVP 08/01/20 18:30 08/01/20 18:31 DC 08/01/20 18:52 Sodium Chloride 1,000 ml @ 1,000 mls/hr 1X ONCE IV 08/01/20 18:30 08/01/20 19:29 DC 08/01/20 18:52 Lorazepam (Ativan Inj) 2 mg STK-MED ONCE .ROUTE 08/01/20 19:22 08/01/20 19:22 DC Lorazepam (Ativan Inj) 1 mg 1X ONCE IVP 08/01/20 19:30 08/01/20 19:31 DC Laboratory Tests Test 08/01/20 18:15 White Blood Count 14.6 x10^3/uL (4.0-11.0) H Red Blood Count 3.92 x10^6/uL (3.50-5.40) Hemoglobin 11.4 g/dL (12.0-15.5) L Hematocrit 35.3 % (36.0-47.0) L Mean Corpuscular Volume 90 fL (79-100) Mean Corpuscular Hemoglobin 29 pg (25-35) Mean Corpuscular Hemoglobin Concent 32 g/dL (31-37) Red Cell Distribution Width 14.6 % (11.5-14.5) H Platelet Count 311 x10^3/uL (140-400) Neutrophils (%) (Auto) 76 % (31-73) H Lymphocytes (%) (Auto) 15 % (24-48) L Monocytes (%) (Auto) 7 % (0-9) Eosinophils (%) (Auto) 2 % (0-3) Basophils (%) (Auto) 0 % (0-3) Neutrophils # (Auto) 11.1 x10^3/uL (1.8-7.7) H Lymphocytes # (Auto) 2.1 x10^3/uL (1.0-4.8) Monocytes # (Auto) 1.0 x10^3/uL (0.0-1.1) Eosinophils # (Auto) 0.3 x10^3/uL (0.0-0.7) Basophils # (Auto) 0.1 x10^3/uL (0.0-0.2) Sodium Level 133 mmol/L (136-145) L Potassium Level 5.1 mmol/L (3.5-5.1) Chloride Level 98 mmol/L (98-107) Carbon Dioxide Level 27 mmol/L (21-32) Anion Gap 8 (6-14) Blood Urea Nitrogen 45 mg/dL (7-20) H Creatinine 0.9 mg/dL (0.6-1.0) Estimated GFR (Cockcroft-Gault) 64.5 BUN/Creatinine Ratio 50 (6-20) H Glucose Level 91 mg/dL (70-99) Lactic Acid Level 1.1 mmol/L (0.4-2.0) Calcium Level 9.2 mg/dL (8.5-10.1) Total Bilirubin 0.4 mg/dL (0.2-1.0) Aspartate Amino Transferase (AST) 53 U/L (15-37) H Alanine Aminotransferase (ALT) 70 U/L (14-59) H Alkaline Phosphatase 82 U/L (46-116) Total Protein 6.9 g/dL (6.4-8.2) Albumin 2.8 g/dL (3.4-5.0) L Albumin/Globulin Ratio 0.7 (1.0-1.7) L Laboratory Tests 08/01/20 18:15 Laboratory Tests 08/01/20 18:15 Vital Signs: Vital Signs Date Time Temp Pulse Resp B/P (MAP) Pulse Ox O2 Delivery O2 Flow Rate FiO2 08/01/20 19:55 74 18 119/54 (75) 99 Nasal Cannula 2.0 08/01/20 17:40 97.1 97.1 EKG: EKG: [] Radiology/Procedures: Radiology/Procedures: PATIENT: BASILIO WHYTE ACCOUNT: [id number] : 1960 LOCATION: ER AGE: 59 SEX: F EXAM STATUS: REG ER ORD. PHYSICIAN: MARGOTH MCKNIGHT APRN REASON: PEG TUBE PLACEMENT 40 CC Omnipaque 240 was used PROCEDURE: KUB XR ABDOMEN 1V Clinical Indication: Reason: PEG TUBE PLACEMENT 40 CC Omnipaque 240 was used Comparison: [facility], July 28, 2020. Findings: Technologist instilled 40 cc of Omnipaque 240 contrast into PEG tube. The PEG tube is in the distal stomach. Contrast outlines the stomach. There is no extravasation to suggest leak. Similar to prior study contrast is also seen throughout the visualized colon. No obvious opacity in the lung bases. Cardiac size is normal. Bones appear stable. IMPRESSION: PEG tube in appropriate position. Electronically signed by: Terence Briscoe MD (08/01/2020 6:33 PM) [facility] DICTATED and SIGNED BY: TERENCE BRISCOE MD DATE: 08/01/[id number] 0 PATIENT: BASILIO WHYTE ACCOUNT: [id number] : 1960 LOCATION: ER AGE: 59 SEX: F EXAM STATUS: REG ER ORD. PHYSICIAN: MARGOTH MCKNIGHT APRN REASON: ALTERED MENTAL STATUS, ON HOLD, PT UNCOOPERATIVE PROCEDURE: CT HEAD WO CONTRAST PQRS Compliance Statement: One or more of the following individualized dose reduction techniques were utilized for this examination: 1. Automated exposure control 2. Adjustment of the mA and/or kV according to patient size 3. Use of iterative reconstruction technique CT HEAD WITHOUT CONTRAST History: Reason: ALTERED MENTAL STATUS, ON HOLD, PT UNCOOPERATIVE : Comparison: CT head without contrast June 17, 2020. Procedure: Axial images are obtained of the head from the skull base through the vertex without IV contrast. Findings: The ventricles and sulci are normal for the patient's age. Stable incidental left choroidal fissure cyst. No mass-effect, midline shift, hemorrhage, extra-axial fluid collection, or obvious acute infarction is identified. Basilar cisterns are patent. Bone windows demonstrate no acute calvarial abnormality. The visualized paranasal sinuses are clear. Mastoid air cells are well aerated. IMPRESSION: No acute intracranial abnormality. Electronically signed by: Terence Briscoe MD (08/01/2020 7:54 PM) [facility] DICTATED and SIGNED BY: TERENCE BRISCOE MD DATE: 08/01/[id number] 0 Course & Med Decision Making: Course & Med Decision Making Pertinent Labs and Imaging studies reviewed. (See chart for details) 59-year-old female, vital signs reviewed, presents emergency department via EMS for PEG tube problems. Patient was met here by female claimed to be her best f macario whom states the patient has had a decreased mental status since arriving to [facility], patient's friend states she is worried that the staff at [facility] are not caring for her friend as well as they could, she fears that the patient is falling out of bed unwitnessed and injuring her head. A x- ray KUB image of PEG tube pre and post contrast was performed, CT head ordered, labs along with urine analysis ordered. CT head read no changes, no acute findings by house radiologist or potation, KUB shows PEG tube in place. Von syringe used to aspirate gastric contents from PEG tube, flushed PEG tube with tap water without incident, PEG tube working within normal limits. Called [facility] and spoke to patient's primary nurse rKis whom states patient's mental status is at baseline, there was no concern of altered mental status at time of discharge, patient's nurse states she was transported because they performed a KUB to confirm placement of the PEG tube prior to starting patient's feeding and it was noted the PEG tube was not in place. Discussed KUB findings with PEG tube in place per house radiologist or rotation, patient's primary nurse states they will accept patient back in transfer from this emergency department to [facility] hospital where the patient currently resides. Unable to contact patient's , spoke with patient's friend at bedside stating we were transferring patient back to [facility]. Patient is stable for transfer at this time. Dragon Disclaimer: Dragon Disclaimer: This electronic medical record was generated, in whole or in part, using a voice recognition dictation system. Departure Departure Impression: Primary Impression: PEG tube malfunction Disposition: 01 DC HOME SELF CARE/HOMELESS Condition: GOOD Referrals: KIRA BARRAGAN APRN (PCP) Additional Instructions: PEG tube was flushed and examined with contrast both pre and post showed PEG tube in appropriate position. Please return to the emergency department for worsening symptoms or other concerns. EMERGENCY DEPARTMENT GENERAL DISCHARGE INSTRUCTIONS Thank you for coming to [facility] Emergency Department (ED) today and trusting us with you care. We trust that you had a positive experience in our Emergency Department. If you wish to speak to the department management, you may call the Director at [phone]. YOUR FOLLOW UP INSTRUCTIONS ARE FOLLOWS: 1. Do you have a private Doctor? If you do not have a private doctor, please ask for a resource list of physicians or clinics that may be able to assist you with follow up care. 2. The Emergency Physicain has interpreted your x-rays. The X-Ray specialist will also review them. If there is a change in the findings, you will be notified in 48 hours when at all possible. 3. A lab test or culture has been done, your results will be reviewed and you will be notified if you need a change in treatment. ADDITIONAL INSTRUCTIONS AND INFORMATION: 1. Your care today has been supervised by a physician who is specially trained in emergency care. Many problems require more than one evaluation for a complete diagnosis and treatment. We recommend that you schedule your follow up appointment as recommended to ensure complete treatment of you illness or injury. If you are unable to obtain follow up care and continue to have a problem, or if your condition worsens, we recommend that you return to the ED. 2. We are not able to safely determine your condition over the phone nor are we able to give sound medical advice over the phone. For these safety reasons, if you call for medical advice we will ask you to come to the ED for further evaluation. 3. If you have any questions regarding these discharge instructions please call the ED at [phone]. SAFETY INFORMATION: In the interest of safety, wellness, and injury prevention; we encourage you to wear your sealbelt, if you smoke; quite smoking, and we encourage family to use a protective helmet for bicycling and other sporting events that present an increased risk for head injury. IF YOUR SYMPTOMS WORSEN OR NEW SYMPTOMS DEVELOP, OR YOU HAVE CONCERNS ABOUT YOUR CONDITION; OR IF YOUR CONDITION WORSENS WHILE YOU ARE WAITING FOR YOUR FOLLOW UP APPOINTMENT; EITHER CONTACT YOUR PRIMARY CARE DOCTOR, THE PHYSICIAN WHOSE NAME AND NUMBER YOU WERE GIVEN, OR RETURN TO THE ED IMMEDIATELY. MARGOTH MCKNIGHT APRN Aug 01, 2020 20:37
== END 2020-08-01 21:49 | disposition home or self-care (01) ==
LOC: ER 17:30
DX: K94.23 Gastrostomy malfunction (principal); I10 Essential (primary) hypertension; E03.9 Hypothyroidism, unspecified; Z98.890 Other specified postprocedural states; Z87.891 Personal history of nicotine dependence
CPT/HCPCS: 36415; 70450; 74018; 80053; 83605; 85025; 87040; 96361; 96374; 96375; 99285; J1200; J1630; J3490; J7030